=== PATIENT | female | born 1955 | race Caucasian/White ===

== ENCOUNTER 2022-09-19 14:36 | Outpatient (OUT) | payer MEDICARE, SELFPAY ==
[2022-09-19 15:15] LABS: Basophils Percent Auto 0.4 % (0.2-2.0); Eosinophils Absolute Auto 0.1 10^3/uL (0.0-0.7); Eosinophils Percent Auto 1.1 % (0.9-7.0); Hematocrit 37.4 % (36.0-48.0); Hemoglobin 11.9 g/dL (12.0-16.0); Immature Granulocytes Abs Auto 0.03 10^3/uL (0.00-0.03); Immature Granulocytes Pct Auto 0.4 % (0.0-0.5); Lymphocytes Absolute Auto 3.4 10^3/uL (1.2-3.8); Lymphocytes Percent Auto 47.3 % (20.5-60.0); Mean Corpuscular HGB Conc 31.8 g/dL (29.9-35.2); Mean Corpuscular Hemoglobin 29.7 pg (26.7-34.0); Mean Corpuscular Volume 93.3 fL (81.0-99.0); Monocytes Absolute Auto 0.6 10^3/uL (0.3-0.8); Monocytes Percent Auto 7.7 % (1.7-12.0); Neutrophils Absolute Auto 3.1 10^3/uL (1.4-6.5); Neutrophils Percent Auto 43.1 % (43.0-75.0); Platelet Count 260 10^3/uL (150-450); Red Blood Count 4.01 10^6/uL (4.20-5.40); Red Cell Distribution Width 14.5 % (11.0-15.0); White Blood Count 7.3 10^3/uL (4.0-11.0)
[2022-09-19 15:58] LABS: Alanine Aminotransferase 21 U/L (14-59); Albumin Globulin Ratio 0.9; Albumin Level 3.6 g/dL (3.4-5.0); Alkaline Phosphatase 115 U/L (46-116); Anion Gap 11.5; Aspartate Amino Transferase 17 U/L (15-37); BUN Creatinine Ratio 9.5; Bilirubin Total 0.3 mg/dL (0.2-1.0); Calcium 9.1 mg/dL (8.5-10.1); Carbon Dioxide 28.8 mmol/L (21.0-32.0); Chloride 98 mmol/L (98-107); Estimated GFR (African America >60 (>=60); Estimated GFR (Non-African Ame 58 (>=60); Globulin 4.1 g/dL; Glucose 152 mg/dL (74-106); Potassium 4.3 mmol/L (3.5-5.1); Sodium 134 mmol/L (136-145); Total Protein 7.7 g/dL (6.4-8.2)
== END 2022-09-19 14:37 ==
LOC: LAB 14:41
PROVIDERS: PCP Family Medicine; Visit Provider Family Medicine
DX: E87.1 Hypo-osmolality and hyponatremia (principal); D50.9 Iron deficiency anemia, unspecified
CPT/HCPCS: 36415; 80053; 85025

== ENCOUNTER 2022-10-31 11:36 | Outpatient (OUT) | payer MEDICARE, SELFPAY ==
[2022-10-31 12:06] LABS: Basophils Percent Auto 0.6 % (0.2-2.0); Eosinophils Absolute Auto 0.1 10^3/uL (0.0-0.7); Eosinophils Percent Auto 0.9 % (0.9-7.0); Hematocrit 37.7 % (36.0-48.0); Hemoglobin 12.4 g/dL (12.0-16.0); Immature Granulocytes Abs Auto 0.03 10^3/uL (0.00-0.03); Immature Granulocytes Pct Auto 0.5 % (0.0-0.5); Lymphocytes Absolute Auto 2.5 10^3/uL (1.2-3.8); Lymphocytes Percent Auto 37.7 % (20.5-60.0); Mean Corpuscular HGB Conc 32.9 g/dL (29.9-35.2); Mean Corpuscular Hemoglobin 30.4 pg (26.7-34.0); Mean Corpuscular Volume 92.4 fL (81.0-99.0); Mean Platelet Volume 9.9 fL (9.5-13.5); Monocytes Absolute Auto 0.5 10^3/uL (0.3-0.8); Neutrophils Absolute Auto 3.5 10^3/uL (1.4-6.5); Neutrophils Percent Auto 52.3 % (43.0-75.0); Platelet Count 263 10^3/uL (150-450); Red Blood Count 4.08 10^6/uL (4.20-5.40); Red Cell Distribution Width 13.5 % (11.0-15.0); White Blood Count 6.6 10^3/uL (4.0-11.0)
[2022-10-31 14:18] LABS: Alanine Aminotransferase 24 U/L (14-59); Albumin Globulin Ratio 0.9; Alkaline Phosphatase 114 U/L (46-116); Anion Gap 14.9; Aspartate Amino Transferase 21 U/L (15-37); Bilirubin Total 0.3 mg/dL (0.2-1.0); Calcium 9.1 mg/dL (8.5-10.1); Chloride 95 mmol/L (98-107); Estimated GFR (African America >60 (>=60); Estimated GFR (Non-African Ame 55 (>=60); Globulin 4.3 g/dL; Glucose 156 mg/dL (74-106); Potassium 4.9 mmol/L (3.5-5.1); Sodium 133 mmol/L (136-145); Total Protein 8.3 g/dL (6.4-8.2)
== END 2022-10-31 11:37 | disposition home or self-care (01) ==
LOC: LAB 11:38
PROVIDERS: PCP Family Medicine; Visit Provider Family Medicine
DX: E87.1 Hypo-osmolality and hyponatremia (principal); D50.9 Iron deficiency anemia, unspecified
CPT/HCPCS: 36415; 80053; 85025

== ENCOUNTER 2022-11-06 10:25 | Outpatient (OUT) | payer MEDICARE, SELFPAY ==
[2022-11-06 11:29] LABS: Estimated Average Glucose 126 mg/dL
[2022-11-06 11:31] LABS: Chol HDL Ratio 1.7; Cholesterol 124 mg/dL (<=200); Free T3 1.62 pg/mL (2.18-3.98); HDL Cholesterol 73 mg/dL (40-60); Thyroid Stimulating Hormone 1.192 uIU/mL (0.358-3.740); Triglycerides 59 mg/dL (<=150); VLDL CHOLESTEROL 11.8 mg/dL
[2022-11-06 12:24] LABS: Free T4 0.75 ng/dL (0.76-1.46)
== END 2022-11-06 10:26 | disposition home or self-care (01) ==
LOC: LAB 10:27
PROVIDERS: PCP Family Medicine; Visit Provider Family Medicine
DX: E78.00 Pure hypercholesterolemia, unspecified (principal); R53.83 Other fatigue; R73.09 Other abnormal glucose
CPT/HCPCS: 36415; 80061; 83036; 84439; 84443; 84481

== ENCOUNTER 2022-12-11 13:25 | Outpatient (OUT) | payer MEDICARE, SELFPAY ==
[2022-12-11 14:18] LABS: Basophils Percent Auto 0.5 % (0.2-2.0); Eosinophils Percent Auto 0.6 % (0.9-7.0); Hematocrit 35.8 % (36.0-48.0); Hemoglobin 11.8 g/dL (12.0-16.0); Immature Granulocytes Abs Auto 0.03 10^3/uL (0.00-0.03); Immature Granulocytes Pct Auto 0.5 % (0.0-0.5); Lymphocytes Absolute Auto 2.4 10^3/uL (1.2-3.8); Lymphocytes Percent Auto 35.6 % (20.5-60.0); Mean Corpuscular Hemoglobin 31.2 pg (26.7-34.0); Mean Corpuscular Volume 94.7 fL (81.0-99.0); Mean Platelet Volume 10.1 fL (9.5-13.5); Monocytes Absolute Auto 0.5 10^3/uL (0.3-0.8); Monocytes Percent Auto 7.2 % (1.7-12.0); Neutrophils Absolute Auto 3.7 10^3/uL (1.4-6.5); Neutrophils Percent Auto 55.6 % (43.0-75.0); Platelet Count 248 10^3/uL (150-450); Red Blood Count 3.78 10^6/uL (4.20-5.40); Red Cell Distribution Width 13.9 % (11.0-15.0); White Blood Count 6.6 10^3/uL (4.0-11.0)
[2022-12-11 14:19] LABS: Alanine Aminotransferase 35 U/L (14-59); Albumin Level 3.6 g/dL (3.4-5.0); Alkaline Phosphatase 118 U/L (46-116); Aspartate Amino Transferase 23 U/L (15-37); Bilirubin Total 0.3 mg/dL (0.2-1.0); Calcium 8.6 mg/dL (8.5-10.1); Carbon Dioxide 27.7 mmol/L (21.0-32.0); Chloride 96 mmol/L (98-107); Estimated GFR (African America >60 (>=60); Estimated GFR (Non-African Ame >60 (>=60); Globulin 3.5 g/dL; Glucose 156 mg/dL (74-106); Potassium 4.7 mmol/L (3.5-5.1); Sodium 131 mmol/L (136-145); Total Protein 7.1 g/dL (6.4-8.2)
== END 2022-12-11 13:26 | disposition home or self-care (01) ==
LOC: LAB 13:27
PROVIDERS: PCP Family Medicine; Visit Provider Family Medicine
DX: E87.1 Hypo-osmolality and hyponatremia (principal); D50.9 Iron deficiency anemia, unspecified
CPT/HCPCS: 36415; 80053; 85025

== ENCOUNTER 2022-12-24 15:40 | Inpatient (IN) | payer MEDICARE, SELFPAY ==
[2022-12-24] VITALS (28 sets, daily range): BP systolic 154–162; BP diastolic 73–85; PULSE 87–106; RESP 13–25; TEMP 36.6–36.8; O2SAT 90–100; BMI 31.9; BMI 32.2
--- NOTE | 2022-12-24 15:42 | XR_ITS ---
The [address] [address] Patient Name: JACINTO SANCHEZ MRN: [id number] date: 1955 Sex: F Assigned Patient Location: ER Current Patient Location: ER Accession/Order Number: [id number] Exam Date: 12/24/2022 16:40 Report Date: 12/24/2022 17:09 At the request of: SINGH MARIA Procedure: XR chest 1V EXAM: XR chest 1V at 1641 hours HISTORY: Fall COMPARISON: None. TECHNIQUE: AP upright portable chest x-ray FINDINGS: The heart is not enlarged and the vasculature is not distended. No acute infiltrate, effusion or pneumothorax is identified. Some degenerative changes are seen in the spine. A left shoulder prosthesis is in place. XR/XR chest 1V IMPRESSION: No acute infiltrate or evidence of cardiac decompensation. Direct comparison with a previous study may be helpful in determining the chronicity of these findings. Electronically authenticated by: GONZALES ESPINOSA Date: 12/24/2022 17:09
--- NOTE | 2022-12-24 15:42 | ECG_ITS ---
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
[2022-12-24 15:47] LABS: Glucometer 154 mg/dL (74-106)
--- NOTE | 2022-12-24 15:48 | ED_ITS ---
HPI - General Adult General Chief complaint: Extremity Injury, Lower Stated complaint: Fall Time Seen by Provider: 12/24/22 15:42 Source: patient Mode of arrival: ambulance History of Present Illness HPI narrative: patient is a 67-year-old female presents to the emergency department by ambulance for the evaluation of right hip pain after a fall at home. She states approximately fourteen hours ago she tripped over some clothes on her bedroom floor and fell forward. She denies head injury or loss of consciousness. She does have a history of alcoholism and states she drank approximately eight shots of whiskey last night. She reports pain in the left shoulder and right groin radiating into the right leg. She states after falling, she was able to get herself into bed but has not been able to ambulate or move so she called 911 prior to arrival. She has not had any recent illness. Toradol was given by EMS prior to arrival. she had a previous left shoulder replacement at the end of last year. Related Data Home Medications Medication Instructions Recorded Confirmed amlodipine 10 mg tablet 10 mg PO DAILY 12/24/22 12/24/22 atorvastatin 10 mg tablet 10 mg PO DAILY 12/24/22 12/24/22 cetirizine 10 mg tablet 10 mg PO DAILY 12/24/22 12/24/22 citalopram 40 mg tablet 40 mg PO DAILY 12/24/22 12/24/22 cyclobenzaprine 10 mg tablet 10 mg PO Q12H 12/24/22 12/24/22 diclofenac sodium 75 mg 75 mg PO Q12H 12/24/22 12/24/22 tablet,delayed release folic acid 1 mg tablet 1 mg PO DAILY 12/24/22 12/24/22 irbesartan 300 mg tablet 300 mg PO DAILY 12/24/22 12/24/22 liothyronine 5 mcg tablet 10 mcg PO DAILY 12/24/22 12/24/22 magnesium oxide 400 mg (241.3 mg 2,800 mg PO DAILY 12/24/22 12/24/22 magnesium) tablet metformin 850 mg tablet 850 mg PO TID 12/24/22 12/24/22 omeprazole 40 mg capsule,delayed 40 mg PO DAILY 12/24/22 12/24/22 release pioglitazone 45 mg tablet 45 mg PO DAILY 12/24/22 12/24/22 quetiapine 100 mg tablet 100 mg PO BEDTIME 12/24/22 12/24/22 sodium chloride 1,000 mg soluble 3,000 mg PO BID 12/24/22 12/24/22 tablet Allergies Allergy/AdvReac Type Severity Reaction Status Date / Time No Known Drug Allergies Allergy Verified 12/24/22 15:45 Review of Systems ROS Constitutional Denies: fever or chills Ears, nose, mouth, and throat Denies: throat pain or neck pain Cardiovascular Denies: chest pain Respiratory Denies: shortness of breath or cough Gastrointestinal Denies: nausea or vomiting Genitourinary Denies: painful urination Musculoskeletal Reports: extremity pain; Denies: back pain or neck pain Integumentary/Breast Denies: rash Neurological Denies: headache Endocrine Denies: excessive urination PFSH [facility] Social History Smoking status: Heavy tobacco smoker Exam Narrative Exam Narrative: Gen.: Awake, alert, in no distress Head: Normocephalic, atraumatic ENT: Moist mucous membranes; C-spine nontender with a full range of motion; no obvious facial/dental or head trauma. Respiratory: No respiratory distress, lungs clear bilaterally Cardio: Regular rate and rhythm Gastrointestinal: Abdomen is soft, nondistended and nontender to palpation; pelvis is stable Extremities: Moves extremities equally, tenderness in the right groin, pain with flexion at the right hip. Mild rotation noted of the right lower extremity, no shortening. No bony tenderness of the right knee or right ankle. Normal range of motion at the left shoulder with diffuse mild tenderness to palpation Psych: Normal mood and affect Neuro: No focal neuro deficit, alert and oriented, clear speech Skin: Warm, dry, intact Constitutional Vital Signs, click to edit/add: Last Vital Signs Temp 97.9 F 12/24/22 15:41 Pulse 104 H 12/24/22 15:41 Resp 20 12/24/22 15:41 BP 162/85 H 12/24/22 15:41 Pulse Ox 100 12/24/22 15:41 O2 Del Method Room Air 12/24/22 15:41 Course Vital Signs Vital signs: Vital Signs Temperature 97.9 F 12/24/22 15:41 Pulse Rate 104 H 12/24/22 15:41 Respiratory Rate 20 12/24/22 15:41 Blood Pressure 162/85 H 12/24/22 15:41 Pulse Oximetry 100 12/24/22 15:41 Oxygen Delivery Method Room Air 12/24/22 15:41 Temperature 97.9 F 12/24/22 15:41 Pulse Rate 104 H 12/24/22 15:41 Respiratory Rate 20 12/24/22 15:41 Blood Pressure 162/85 H 12/24/22 15:41 Pulse Oximetry 100 12/24/22 15:41 Oxygen Delivery Method Room Air 12/24/22 15:41 Medical Decision Making MDM Narrative Medical decision making narrative: patient was medicated with IV fluids, fentanyl and Zofran. She is still unable to ambulate on her right lower extremity after negative CT of the brain, negative chest x-ray, negative left shoulder x-ray and negative x-rays of the pelvis and right hip per radiologist. She was sent back for a CT of the right hip which shows she has a right femoral neck fracture. The remainder of her lab studies are grossly unremarkable, she does not take any blood thinners. The case was discussed with Dr. Whiting, the patient's PCP accepted the admission to [facility] with telemetry. I discussed the case with Dr. Dougherty for orthopedics, he was sent images of the patient's hip and agreed to be a security system sales consultant in her admission. Patient is stable at time of admission, reevaluated by attending physician prior to admission. Medical Records Medical records reviewed: Yes I reviewed the patient's medical records Lab Data Lab results reviewed: Yes I reviewed the patient's lab results Labs: Lab Results 12/24/22 12/24/22 Range/Units 15:44 15:50 WBC 10.3 (4.0-11.0) 10^3/uL RBC 3.43 L (4.20-5.40) 10^6/uL Hgb 10.9 L (12.0-16.0) g/dL Hct 32.9 L (36.0-48.0) % MCV 95.9 (81.0-99.0) fL MCH 31.8 (26.7-34.0) pg MCHC 33.1 (29.9-35.2) g/dL RDW 13.8 (11.0-15.0) % Plt Count 221 (150-450) 10^3/uL MPV 10.1 (9.5-13.5) fL Neut % (Auto) 86.6 H (43.0-75.0) % Lymph % (Auto) 7.3 L (20.5-60.0) % [place] % (Auto) 5.4 (1.7-12.0) % Eos % (Auto) 0.0 L (0.9-7.0) % Baso % (Auto) 0.2 (0.2-2.0) % Neut # (Auto) 9.0 H (1.4-6.5) 10^3/uL Lymph # (Auto) 0.8 L (1.2-3.8) 10^3/uL [place] # (Auto) 0.6 (0.3-0.8) 10^3/uL Eos # (Auto) 0.0 (0.0-0.7) 10^3/uL Baso # (Auto) 0.0 (0.0-0.1) 10^3/uL Abs Immat Gran (auto) 0.05 H (0.00-0.03) 10^3/uL Imm/Tot Granulo (auto) 0.5 (0.0-0.5) % PT 10.4 (9.0-11.6) sec INR 0.98 Sodium 132 L (136-145) mmol/L Potassium 5.0 (3.5-5.1) mmol/L Chloride 95 L (98-107) mmol/L Carbon Dioxide 24.2 (21.0-32.0) mmol/L Anion Gap 17.8 BUN 21.0 H (7.0-18.0) mg/dL Creatinine 0.99 (0.55-1.02) mg/dL Est GFR ( Amer) >60 (>=60) Est GFR (Non-Af Amer) 56 L (>=60) BUN/Creatinine Ratio 21.2 Glucose 155 H (74-106) mg/dL Lactate 2.2 H* (0.4-2.0) mmol/L Calcium 8.1 L (8.5-10.1) mg/dL Phosphorus 4.1 (2.6-4.7) mg/dL Magnesium 1.6 L (1.8-2.4) mg/dL Total Bilirubin 0.4 (0.2-1.0) mg/dL AST 21 (15-37) U/L ALT 23 (14-59) U/L Alkaline Phosphatase 113 (46-116) U/L Total Creatine Kinase 49 (26-192) U/L CK-MB (CK-2) 1.30 (<=3.60) ng/mL Myoglobin 179 H (9-82) ng/mL Troponin I High Sens 8.9 (4.0-51.3) pg/mL Total Protein 7.1 (6.4-8.2) g/dL Albumin 3.5 (3.4-5.0) g/dL Globulin 3.6 g/dL Albumin/Globulin Ratio 1.0 TSH 1.578 (0.358-3.740) uIU/mL Ethanol Quant <3 mg/dL POC Glucose 154 H (74-106) mg/dL Imaging Data ct hip: Attestation: I have reviewed the pertinent imaging results. Radiologist's impression: Procedure: CT hip RT wo con EXAM: CT hip RT wo con HISTORY: Right hip pain after fall COMPARISON: X-rays at 4:47 PM TECHNIQUE: Axial CT imaging was performed. Sagittal and coronal reformatted/reconstructed sequences were additionally performed. FINDINGS: IMPRESSION: Mildly angulated fracture of the right femoral neck. Mild chondrocalcinosis pyrophosphate deposition of the right hip joint. Hip joint space is maintained. Small joint effusion. The soft tissues are unremarkable Electronically authenticated by: NICHOLAS WILDER Date: 12/24/2022 18:19 ECG Data Attestation: I personally reviewed and interpreted this ECG as follows: (sinus tachycardia at a rate of 101, no acute ST elevation or ectopy. EKG reviewed by attending physician) Discharge Plan Discharge Chief Complaint: Extremity Injury, Lower Clinical Impression: Acute pain of right hip, Fracture of hip, Fall, Fracture of right hip Patient Disposition: Admitted As Inpatient Time of Disposition Decision: 18:44 Prescriptions / Home Meds: No Action amlodipine 10 mg tablet 10 mg PO DAILY atorvastatin 10 mg tablet 10 mg PO DAILY cetirizine 10 mg tablet 10 mg PO DAILY citalopram 40 mg tablet 40 mg PO DAILY cyclobenzaprine 10 mg tablet 10 mg PO Q12H diclofenac sodium 75 mg tablet,delayed release (DR/EC) 75 mg PO Q12H folic acid 1 mg tablet 1 mg PO DAILY irbesartan 300 mg tablet 300 mg PO DAILY liothyronine 5 mcg tablet 10 mcg PO DAILY magnesium oxide 400 mg (241.3 mg magnesium) tablet 2,800 mg PO DAILY metformin 850 mg tablet 850 mg PO TID omeprazole 40 mg capsule,delayed release(DR/EC) 40 mg PO DAILY pioglitazone 45 mg tablet 45 mg PO DAILY quetiapine 100 mg tablet 100 mg PO BEDTIME sodium chloride 1,000 mg tablet,soluble 3,000 mg PO BID Referrals: Yves Whiting MD [Primary Care Provider] - 1 week
[2022-12-24 16:01] LABS: Basophils Percent Auto 0.2 % (0.2-2.0); Hematocrit 32.9 % (36.0-48.0); Hemoglobin 10.9 g/dL (12.0-16.0); Immature Granulocytes Abs Auto 0.05 10^3/uL (0.00-0.03); Immature Granulocytes Pct Auto 0.5 % (0.0-0.5); Lymphocytes Absolute Auto 0.8 10^3/uL (1.2-3.8); Lymphocytes Percent Auto 7.3 % (20.5-60.0); Mean Corpuscular HGB Conc 33.1 g/dL (29.9-35.2); Mean Corpuscular Hemoglobin 31.8 pg (26.7-34.0); Mean Corpuscular Volume 95.9 fL (81.0-99.0); Mean Platelet Volume 10.1 fL (9.5-13.5); Monocytes Absolute Auto 0.6 10^3/uL (0.3-0.8); Monocytes Percent Auto 5.4 % (1.7-12.0); Neutrophils Percent Auto 86.6 % (43.0-75.0); Platelet Count 221 10^3/uL (150-450); Red Blood Count 3.43 10^6/uL (4.20-5.40); Red Cell Distribution Width 13.8 % (11.0-15.0); White Blood Count 10.3 10^3/uL (4.0-11.0)
[2022-12-24] MEDS: 0.9 % SODIUM CHLORIDE 1,000 ML 999 ML IV (16:04)
[2022-12-24 16:14] LABS: INR 0.98; Prothrombin Time 10.4 sec (9.0-11.6)
[2022-12-24 16:19] LABS: Alanine Aminotransferase 23 U/L (14-59); Albumin Level 3.5 g/dL (3.4-5.0); Alkaline Phosphatase 113 U/L (46-116); Anion Gap 17.8; Aspartate Amino Transferase 21 U/L (15-37); BUN Creatinine Ratio 21.2; Bilirubin Total 0.4 mg/dL (0.2-1.0); Calcium 8.1 mg/dL (8.5-10.1); Carbon Dioxide 24.2 mmol/L (21.0-32.0); Chloride 95 mmol/L (98-107); Estimated GFR (African America >60 (>=60); Estimated GFR (Non-African Ame 56 (>=60); Globulin 3.6 g/dL; Glucose 155 mg/dL (74-106); Sodium 132 mmol/L (136-145); Total Protein 7.1 g/dL (6.4-8.2)
[2022-12-24 16:29] LABS: Creatine Kinase 49 U/L (26-192); Ethanol <3 mg/dL; Magnesium 1.6 mg/dL (1.8-2.4); Myoglobin 179 ng/mL (9-82); Phosphorus 4.1 mg/dL (2.6-4.7); Thyroid Stimulating Hormone 1.578 uIU/mL (0.358-3.740); Troponin I High Sensitivity 8.9 pg/mL (4.0-51.3)
--- NOTE | 2022-12-24 16:30 | XR_ITS ---
The [address] [address] Patient Name: JACINTO SANCHEZ MRN: [id number] date: 1955 Sex: F Assigned Patient Location: ER Current Patient Location: ER Accession/Order Number: [id number] Exam Date: 12/24/2022 16:40 Report Date: 12/24/2022 17:28 At the request of: SINGH MARIA Procedure: XR hip RT 2V w/ pelvis EXAM: XR hip RT 2V w/ pelvis HISTORY: Fall COMPARISON: None. TECHNIQUE: 3 views FINDINGS: No visualized fracture, dislocation, subluxation or osseous lesion. Joint spaces are unremarkable for patient's age. XR/XR hip RT 2V w/ pelvis IMPRESSION: No visualized acute abnormality Electronically authenticated by: NICHOLAS WILDER Date: 12/24/2022 17:28
--- NOTE | 2022-12-24 16:30 | CT_ITS ---
The [address] [address] Patient Name: JACINTO SANCHEZ MRN: [id number] date: 1955 Sex: F Assigned Patient Location: ER Current Patient Location: Accession/Order Number: [id number] Exam Date: 12/24/2022 16:58 Report Date: 12/24/2022 17:27 At the request of: SINGH MARIA Procedure: CT head/brain wo con EXAM: CT head/brain wo con HISTORY: Weakness . The patient fell last night. COMPARISON: 01/11/2022 TECHNIQUE: Multiple thin computed tomograms of the head were obtained, with sagittal and coronal reconstructions. Radiation reduction technique and algorithms were utilized during the study. FINDINGS: The ventricles are not enlarged, the lateral ventricles are minimally asymmetric but within normal variation, and the third ventricles in the midline. The sylvian fissures and cortical sulci are unremarkable. There is no evidence of an intracranial hemorrhage, mass lesion or apparent acute infarct. Mild frontal hyperostosis is noted. The cerebellum and visualized brainstem are intact. A small air-fluid level is seen in the sphenoid sinus eccentric to the right. The paranasal sinuses are otherwise clear as visualized. The middle ears are aerated. The mastoid sinuses are clear. CT/CT head/brain wo con IMPRESSION: There is no evidence of an intracranial hemorrhage, mass lesion or apparent acute infarct. A small air-fluid level is seen in the sphenoid sinus eccentric to the right of the midline. The paranasal sinuses are otherwise relatively clear. There is no evidence of a skull fracture. Except for the findings in the sphenoid sinuses, the overall appearance is essentially unchanged. Electronically authenticated by: GONZALES ESPINOSA Date: 12/24/2022 17:27
--- NOTE | 2022-12-24 16:30 | XR_ITS ---
The [address] [address] Patient Name: JACINTO SANCHEZ MRN: [id number] date: 1955 Sex: F Assigned Patient Location: ER Current Patient Location: ER Accession/Order Number: [id number] Exam Date: 12/24/2022 16:40 Report Date: 12/24/2022 17:25 At the request of: SINGH MARIA Procedure: XR shoulder LT min 2V EXAM: XR shoulder LT min 2V HISTORY: fall COMPARISON: None. TECHNIQUE: 4 views FINDINGS: Patient is status post left glenohumeral arthroplasty. The prosthesis exhibits no gross fracture or dislocation. The [place] bone exhibits no gross visualized irregularity. XR/XR shoulder LT min 2V IMPRESSION: No visualized acute abnormality Electronically authenticated by: NICHOLAS WILDER Date: 12/24/2022 17:25
[2022-12-24 16:41] LABS: Lactate/Lactic Acid 2.2 mmol/L (0.4-2.0)
[2022-12-24] MEDS: FENTANYL CITRATE/PF 100 MCG/2 ML VIAL 50 MCG IV (17:27)
[2022-12-24] MEDS: ONDANSETRON PF 4 MG/2 ML VIAL IV (17:27)
--- NOTE | 2022-12-24 17:40 | PC.NURSE ---
1740 - tried to get patient up to see if she is able to bare weight on R leg and pt is able to put very little weight on that leg. crying out in pain. informed PA
--- NOTE | 2022-12-24 17:41 | CT_ITS ---
[address] [address] Patient Name: JACINTO SANCHEZ MRN: [id number] date: 1955 Sex: F Assigned Patient Location: ER Current Patient Location: ER Accession/Order Number: [id number] Exam Date: 12/24/2022 17:56 Report Date: 12/24/2022 18:19 At the request of: SINGH MRAIA Procedure: CT hip RT wo con EXAM: CT hip RT wo con HISTORY: Right hip pain after fall COMPARISON: X-rays at 4:47 PM TECHNIQUE: Axial CT imaging was performed. Sagittal and coronal reformatted/reconstructed sequences were additionally performed. FINDINGS: IMPRESSION: Mildly angulated fracture of the right femoral neck. Mild chondrocalcinosis pyrophosphate deposition of the right hip joint. Hip joint space is maintained. Small joint effusion. The soft tissues are unremarkable Electronically authenticated by: NICHOLAS WILDER Date: 12/24/2022 18:19
[2022-12-24 19:18] LABS: Magnesium 1.5 mg/dL (1.8-2.4); Thyroid Stimulating Hormone 1.553 uIU/mL (0.358-3.740)
[2022-12-24 20:16] LABS: Lactate/Lactic Acid 0.7 mmol/L (0.4-2.0)
[2022-12-24 21:28] LABS: Glucometer 110 mg/dL (74-106)
[2022-12-24] MEDS: 0.9 % SODIUM CHLORIDE 1,000 ML 100 ML IV (21:33)
[2022-12-24] MEDS: SODIUM CHLORIDE 1,000 MG TABLET 3000 MG PO (21:34)
[2022-12-24] MEDS: METFORMIN HCL 850 MG TABLET PO (21:34)
[2022-12-24] MEDS: CYCLOBENZAPRINE HCL 10 MG TABLET PO (21:34)
[2022-12-24] MEDS: THIAMINE MONONITRATE (VIT B1) 100 MG TABLET PO (21:34)
[2022-12-24] MEDS: MULTIVITAMIN TABLET 1 TAB PO (21:34)
[2022-12-24] MEDS: TEMAZEPAM 15 MG CAPSULE PO (21:34)
[2022-12-24] MEDS: QUETIAPINE FUMARATE 100 MG TABLET PO (21:34)
[2022-12-24] MEDS: HYDROMORPHONE HCL 0.5 MG/0.5 ML SYRINGE IV (23:34)
[2022-12-25] VITALS (62 sets, daily range): BP systolic 102–133; BP diastolic 45–67; PULSE 63–98; RESP 4–24; TEMP 36.6–36.8; O2SAT 80–100
--- NOTE | 2022-12-25 | XR_ITS ---
The [address] [address] Patient Name: JACINTO SANCHEZ MRN: [id number] date: 1955 Sex: F Assigned Patient Location: MS Current Patient Location: MS Accession/Order Number: [id number] Exam Date: 12/25/2022 15:30 Report Date: 12/25/2022 17:25 At the request of: WOLFGANG SANTIZO Procedure: XR hip RT min 2V EXAM: XR hip RT min 2V HISTORY: Right femoral neck fracture COMPARISON: Imaging 12/24/2022. FINDINGS: IMPRESSION: 5 intraoperative fluoroscopic spot views. 66.8 seconds of fluoroscopy time. Films are made available to the surgeon. Electronically authenticated by: NICHOLAS WILDER Date: 12/25/2022 17:25
--- NOTE | 2022-12-25 00:13 | PC.NURSE ---
2L nasal cannula added due to SPO2 levels dropping while patient sleeping
[2022-12-25 02:34] LABS: Bilirubin Urine NEGATIVE (NEGATIVE); Blood Urine SMALL (NEGATIVE); Clarity Urine CLEAR (CLEAR); Color Urine LT. YELLOW (YELLOW); Glucose Urine UA NEGATIVE (NEGATIVE); Ketones Urine TRACE mg/dL (NEGATIVE); Leukocyte Esterase Urine NEGATIVE (NEGATIVE); Nitrite Urine NEGATIVE (NEGATIVE); Protein Urine NEGATIVE (NEG/TRACE); Specific Gravity Urine <=1.005 (1.005-1.025); Urobilinogen Urine 0.2 EU/dL (0.2-1.0)
[2022-12-25 02:35] LABS: Urine Microscopic Indicated YES
[2022-12-25 03:05] LABS: Cannabinoid Screen Urine POSITIVE (NEGATIVE); Cocaine Screen Urine NEGATIVE (NEGATIVE); Methamphetamines Screen Urine NEGATIVE (NEGATIVE); Opiate Screen Urine POSITIVE (NEGATIVE); Phencyclidine Screen Urine NEGATIVE (NEGATIVE)
[2022-12-25 03:06] LABS: Amphetamine Screen Urine NEGATIVE (NEGATIVE); Barbiturates Screen Urine NEGATIVE (NEGATIVE); Benzodiazepines Screen Urine POSITIVE (NEGATIVE); Methadone Screen Urine NEGATIVE (NEGATIVE); Oxycodone Screen Urine NEGATIVE (NEGATIVE); Tricyclic Antidepressant Urine POSITIVE (NEGATIVE)
[2022-12-25 03:07] LABS: Buprenorphine Screen Urine NEGATIVE (NEGATIVE)
[2022-12-25 03:14] LABS: Bacteria Urine NONE SEEN #/HPF (NONE SEEN); Crystals Seen? None Seen #/HPF (None Seen); Mucus Urine NONE SEEN (NONE SEEN); RBC Urine 0-2 #/HPF (0-2); Squamous Epithelial Cell Urine NONE SEEN #/LPF (NONE/RARE)
[2022-12-25 03:15] LABS: Cast Seen? NONE SEEN #/LPF (NONE SEEN)
--- NOTE | 2022-12-25 03:59 | RESP.RT ---
decreased down to 1L
[2022-12-25 04:38] LABS: Basophils Percent Auto 0.3 % (0.2-2.0); Eosinophils Absolute Auto 0.1 10^3/uL (0.0-0.7); Eosinophils Percent Auto 0.8 % (0.9-7.0); Hematocrit 29.8 % (36.0-48.0); Hemoglobin 9.6 g/dL (12.0-16.0); Immature Granulocytes Abs Auto 0.03 10^3/uL (0.00-0.03); Immature Granulocytes Pct Auto 0.4 % (0.0-0.5); Lymphocytes Absolute Auto 2.4 10^3/uL (1.2-3.8); Mean Corpuscular HGB Conc 32.2 g/dL (29.9-35.2); Mean Corpuscular Volume 96.1 fL (81.0-99.0); Mean Platelet Volume 10.1 fL (9.5-13.5); Monocytes Absolute Auto 0.7 10^3/uL (0.3-0.8); Monocytes Percent Auto 9.8 % (1.7-12.0); Neutrophils Absolute Auto 4.1 10^3/uL (1.4-6.5); Neutrophils Percent Auto 55.7 % (43.0-75.0); Platelet Count 188 10^3/uL (150-450); White Blood Count 7.3 10^3/uL (4.0-11.0)
[2022-12-25 05:03] LABS: Alanine Aminotransferase 20 U/L (14-59); Albumin Globulin Ratio 0.9; Albumin Level 2.9 g/dL (3.4-5.0); Alkaline Phosphatase 91 U/L (46-116); Anion Gap 12.9; Aspartate Amino Transferase 16 U/L (15-37); BUN Creatinine Ratio 18.8; Bilirubin Total 0.5 mg/dL (0.2-1.0); Calcium 7.9 mg/dL (8.5-10.1); Carbon Dioxide 25.9 mmol/L (21.0-32.0); Chloride 100 mmol/L (98-107); Estimated GFR (African America >60 (>=60); Estimated GFR (Non-African Ame >60 (>=60); Globulin 3.1 g/dL; Glucose 76 mg/dL (74-106); Potassium 3.8 mmol/L (3.5-5.1); Sodium 135 mmol/L (136-145)
[2022-12-25] MEDS: HYDROMORPHONE HCL 0.5 MG/0.5 ML SYRINGE IV ×2 (06:05→10:06)
[2022-12-25] MEDS: 0.9 % SODIUM CHLORIDE 1,000 ML 100 ML IV ×2 (06:10→18:02)
--- NOTE | 2022-12-25 07:10 | XR_ITS ---
The [address] [address] Patient Name: JACINTO SANCHEZ MRN: [id number] date: 1955 Sex: F Assigned Patient Location: MS Current Patient Location: MS Accession/Order Number: [id number] Exam Date: 12/25/2022 07:15 Report Date: 12/25/2022 07:57 At the request of: ASH BERNSTEIN Procedure: XR chest 1V EXAM: XR chest 1V HISTORY: hypoxia COMPARISON: 12/24/2022 TECHNIQUE: AP portable erect FINDINGS: LUNGS: No significant pulmonary parenchymal abnormalities. VASCULATURE: No increased pulmonary vasculature. PLEURA: No pneumothorax, effusion, or pleural thickening. CARDIAC: No cardiomegaly or cardiac silhouette abnormality. MEDIASTINUM: No visible mass or adenopathy. BONES: No fracture or visible bone lesion. Partial arthroplasty OTHER: Negative. XR/XR chest 1V IMPRESSION: No acute cardiopulmonary process Electronically authenticated by: NICHOLAS DAWSON Date: 12/25/2022 07:57
--- NOTE | 2022-12-25 07:11 | P.HP_ITS ---
H&P: HPI History of Present Illness Chief complaint: Right Hip Fracture, Weakness Narrative: Patient presented to the emergency room status post fall, found to have right femoral neck fracture, patient admitted for work-up and treatment of same, with the fall patient did not have any syncope or chest pain or shortness of breath just tripped over items on the floor, patient does have a history of alcohol use, drinking throughout the day before. Review of Systems ROS Status of ROS 10 or more systems reviewed and unremarkable except as noted in history and below [facility] Medical History (Updated 12/24/22 @ 20:53 by Wendy Cardenas RN) Surgical History (Updated 12/24/22 @ 20:53 by Wendy Cardenas RN) Family History (Updated 12/24/22 @ 20:54 by Wendy Cardenas RN) Mother Family history of CHF (congestive heart failure) Family history of cancer Family history of hypertension Sister Family history of diabetes mellitus Social History (Updated 12/24/22 @ 20:57 by Wendy Cardenas RN) Within the past year, how often did you have a drink containing alcohol: 2-4 times a month Within the past year, how often did you have six or more drinks on one occasion: monthly Smoking status: Heavy tobacco smoker Non-prescribed substance use: cannabis (any form) Previous occupational history: Retired Known occupational exposures/hazards: No Highest level of school completed/degree received: Bachelor's degree Are you now , , , , never or living with a partner: In a typical week, how many times do you talk on the telephone with family, friends, or neighbors: 3 or more times per week How often do you get together with friends or relatives: never How often do you attend hindu or restorationism services: never Do you belong to any clubs or organizations such as hindu groups unions, fraternal or athletic groups, or school groups: yes Total score: 2 Score interpretation: A score of greater than or equal to 2 indicates the lowest level of social isolation. Little interest or pleasure in doing things: nearly every day Feeling down, depressed, or hopeless: nearly every day Feel stressed/tense/nervous/anxious/difficulty sleeping: very much Do you think of yourself as: straight/heterosexual Gender Identity: female Meds Home Medications and Allergies Home Medications Medication Instructions Recorded Confirmed Type amlodipine 10 mg tablet 10 mg PO DAILY 12/24/22 12/24/22 History atorvastatin 10 mg tablet 10 mg PO DAILY 12/24/22 12/24/22 History cetirizine 10 mg tablet 10 mg PO DAILY 12/24/22 12/24/22 History citalopram 40 mg tablet 40 mg PO DAILY 12/24/22 12/24/22 History cyclobenzaprine 10 mg tablet 10 mg PO Q12H 12/24/22 12/24/22 History diclofenac sodium 75 mg 75 mg PO Q12H 12/24/22 12/24/22 History tablet,delayed release folic acid 1 mg tablet 1 mg PO DAILY 12/24/22 12/24/22 History irbesartan 300 mg tablet 300 mg PO DAILY 12/24/22 12/24/22 History liothyronine 5 mcg tablet 10 mcg PO DAILY 12/24/22 12/24/22 History magnesium oxide 400 mg (241.3 mg 2,800 mg PO DAILY 12/24/22 12/24/22 History magnesium) tablet metformin 850 mg tablet 850 mg PO TID 12/24/22 12/24/22 History omeprazole 40 mg capsule,delayed 40 mg PO DAILY 12/24/22 12/24/22 History release pioglitazone 45 mg tablet 45 mg PO DAILY 12/24/22 12/24/22 History quetiapine 100 mg tablet 100 mg PO BEDTIME 12/24/22 12/24/22 History sodium chloride 1,000 mg soluble 3,000 mg PO BID 12/24/22 12/24/22 History tablet Allergies Allergy/AdvReac Type Severity Reaction Status Date / Time No Known Drug Allergies Allergy Verified 12/24/22 15:45 Exam Constitutional Vital Signs, click to edit/add: Last Vital Signs Temp 98.3 F 12/25/22 05:35 Pulse 83 12/25/22 06:00 Resp 16 12/25/22 05:35 BP 132/62 12/25/22 05:35 Pulse Ox 95 12/25/22 06:00 O2 Del Method Nasal Cannula 12/25/22 05:35 O2 Flow Rate 1 12/25/22 05:35 Common normals: no apparent distress Exam limitations: no altered mental status Chest Common normals: inspection of chest normal Respiratory Common normals: normal respiratory effort, no retractions and clear to auscultation bilaterally Auscultation: diminished lung sounds Cardio Common normals: regular rate, regular rhythm and no murmurs GI Common normals: Normal to inspection, nondistended, normoactive bowel sounds present, soft to palpation, non-tender and no masses Results Labs Labs: Short CBC 12/24/22 12/25/22 Range/Units 15:50 04:13 WBC 10.3 7.3 (4.0-11.0) 10^3/uL Hgb 10.9 L 9.6 L (12.0-16.0) g/dL Hct 32.9 L 29.8 L (36.0-48.0) % Plt Count 221 188 (150-450) 10^3/uL BMP 12/24/22 12/25/22 15:50 04:13 Sodium 132 L 135 L Potassium 5.0 3.8 Chloride 95 L 100 Carbon Dioxide 24.2 25.9 BUN 21.0 H 16.0 Creatinine 0.99 0.85 Glucose 155 H 76 Calcium 8.1 L 7.9 L Cardiac Enzymes 12/24/22 Range/Units 15:50 Total Creatine Kinase 49 (26-192) U/L CK-MB (CK-2) 1.30 (<=3.60) ng/mL Liver Function 12/24/22 12/25/22 Range/Units 15:50 04:13 Total Bilirubin 0.4 0.5 (0.2-1.0) mg/dL AST 21 16 (15-37) U/L ALT 23 20 (14-59) U/L Alkaline Phosphatase 113 91 (46-116) U/L Albumin 3.5 2.9 L (3.4-5.0) g/dL Urine 12/24/22 Range/Units 00:20 Urine Color Lt. yellow (YELLOW) Urine Clarity Clear (CLEAR) Urine pH 6.0 (5.0-9.0) Ur Specific [place] <=1.005 A (1.005-1.025) Urine Protein Negative (NEG/TRACE) mg/dL Urine Glucose (UA) Negative (NEGATIVE) mg/dL Assessment and Plan Assessment and Plan (1) Acute pain of right hip: (2) Fracture of right hip: (3) Depression: (4) Hypertension: (5) Hypomagnesemia: (6) Hyponatremia: Plan Sinus tachycardia, uncontrolled hypertension secondary to right hip pain secondary to right femoral neck fracture-consult orthopedics-n.p.o., surgery later today Iron deficiency anemia-monitor daily, repeat later today as her hemoglobin is down somewhat, no need for transfusion at this time Mild dehydration secondary to alcohol intake, BUN is improved, sodium is improved Hypocalcemia-supplement Hypomagnesemia-supplement Mild protein calorie malnutrition-add Ensure Acute hypoxia-secondary to pain medication and her sleeping, oxygen down into the 70%, improved with supplemental oxygen on 2 L, has been be able to be weaned down to 1 L, will repeat portable chest x-ray but lungs are clear Patient currently in observation status likely needs placement for rehab postsurgery. Change patient to inpatient
[2022-12-25 07:19] LABS: Glucometer 98 mg/dL (74-106)
--- NOTE | 2022-12-25 10:52 | SWNOTE1 ---
SW met with pt to discuss dc needs. Pt lives at home alone. Pt does not use any DME at home, she is independent. Pt had a fall at home and has hip fracture. Pt stated she was drinking and she knew better. SW asked how often she drinks, pt stated around 3x per month. Pt also stated she is going to go to AA after she recovers from this surgery. SW asked if she would like resources and pt stated yes. SW to give pt alcohol resources. SW and pt spoke about rehab for therapy at discharge. Pt is agreeable and feels she will need it. Pt voiced she has been to [facility] in past and she would like to try [facility] this time. SW to send referral to [facility]. [facility] is her second choice. Earliest pt can be dc is .
[2022-12-25 10:53] LABS: Glucometer 97 mg/dL (74-106)
--- NOTE | 2022-12-25 10:54 | CM.NOTE ---
Important Message From [employer] discussed with pt, pt verbalizes understanding and signs paper. Original given to pt and copy placed on pt's chart.
--- NOTE | 2022-12-25 14:28 | SWNOTE1 ---
[facility] is able to accept, SW to send operative note and therapy notes once they are in.
--- NOTE | 2022-12-25 14:41 | SWNOTE1 ---
Nursing and pt updated that [facility] is able to accept. SW gave pt AA resources and outpt/inpt counseling for alcohol as well.
[2022-12-25] MEDS: CEFAZOLIN SODIUM/DEXTROSE,ISO 2 GM/50 ML PIGGYBACK IV (15:28)
--- NOTE | 2022-12-25 15:32 | PM.ORCN ---
History of Present Illness HPI Consult date: 12/25/22 Consult reason: fracture Chief complaint: Right Hip Fracture, Weakness Narrative: Is a 67-year-old who presented to the emergency room last night after tripping on close on the floor falling onto her right hip. She had the inability to bear weight. She denies head trauma or loss of consciousness. She reports she was drinking prior to her fall. In the emergency room she was found to have a right femoral neck fracture on CT scan. Patient was admitted for treatment of this injury. Review of Systems ROS Status of ROS 10 or more systems reviewed and unremarkable except as noted in history and below [facility] Medical History (Updated 12/24/22 @ 20:53 by Wendy Cardenas RN) Surgical History (Updated 12/24/22 @ 20:53 by Wendy Cardenas RN) Family History (Updated 12/24/22 @ 20:54 by Wendy Cardenas RN) Mother Family history of CHF (congestive heart failure) Family history of cancer Family history of hypertension Sister Family history of diabetes mellitus Social History (Updated 12/24/22 @ 20:57 by Wendy Cardenas RN) Within the past year, how often did you have a drink containing alcohol: 2-4 times a month Within the past year, how often did you have six or more drinks on one occasion: monthly Smoking status: Heavy tobacco smoker Non-prescribed substance use: cannabis (any form) Previous occupational history: Retired Known occupational exposures/hazards: No Highest level of school completed/degree received: Bachelor's degree Are you now , , , , never or living with a partner: In a typical week, how many times do you talk on the telephone with family, friends, or neighbors: 3 or more times per week How often do you get together with friends or relatives: never How often do you attend judaism or pentecostal services: never Do you belong to any clubs or organizations such as judaism groups unions, fraternal or athletic groups, or school groups: yes Total score: 2 Score interpretation: A score of greater than or equal to 2 indicates the lowest level of social isolation. Little interest or pleasure in doing things: nearly every day Feeling down, depressed, or hopeless: nearly every day Feel stressed/tense/nervous/anxious/difficulty sleeping: very much Do you think of yourself as: straight/heterosexual Gender Identity: female Meds Home Medications and Allergies Home Medications Medication Instructions Recorded Confirmed Type amlodipine 10 mg tablet 10 mg PO DAILY 12/24/22 12/24/22 History atorvastatin 10 mg tablet 10 mg PO DAILY 12/24/22 12/24/22 History cetirizine 10 mg tablet 10 mg PO DAILY 12/24/22 12/24/22 History citalopram 40 mg tablet 40 mg PO DAILY 12/24/22 12/24/22 History cyclobenzaprine 10 mg tablet 10 mg PO Q12H 12/24/22 12/24/22 History diclofenac sodium 75 mg 75 mg PO Q12H 12/24/22 12/24/22 History tablet,delayed release folic acid 1 mg tablet 1 mg PO DAILY 12/24/22 12/24/22 History irbesartan 300 mg tablet 300 mg PO DAILY 12/24/22 12/24/22 History liothyronine 5 mcg tablet 10 mcg PO DAILY 12/24/22 12/24/22 History magnesium oxide 400 mg (241.3 mg 2,800 mg PO DAILY 12/24/22 12/24/22 History magnesium) tablet metformin 850 mg tablet 850 mg PO TID 12/24/22 12/24/22 History omeprazole 40 mg capsule,delayed 40 mg PO DAILY 12/24/22 12/24/22 History release pioglitazone 45 mg tablet 45 mg PO DAILY 12/24/22 12/24/22 History quetiapine 100 mg tablet 100 mg PO BEDTIME 12/24/22 12/24/22 History sodium chloride 1,000 mg soluble 3,000 mg PO BID 12/24/22 12/24/22 History tablet Allergies Allergy/AdvReac Type Severity Reaction Status Date / Time No Known Drug Allergies Allergy Verified 12/24/22 15:45 Exam Narrative Exam Narrative: Examination today logroll of her right hip causes pain. She has a palpable dorsalis pedis pulse. She has normal sensation in the foot and is able to wiggle her toes. No ankle or knee tenderness on the right lower extremity. Skin is intact. Left lower extremity has painless ankle knee and hip range of motion. Bilateral upper extremities have painless range of motion. Constitutional Vital Signs, click to edit/add: Last Vital Signs Temp 98.2 F 12/25/22 13:41 Pulse 88 12/25/22 14:01 Resp 16 12/25/22 13:41 BP 112/65 12/25/22 13:41 Pulse Ox 94 L 12/25/22 14:01 O2 Del Method Room Air 12/25/22 13:41 O2 Flow Rate 1 12/25/22 07:30 Results Labs Labs: Abnormal lab results 12/24/22 12/24/22 12/24/22 Range/Units 00:20 15:44 15:50 RBC 3.43 L (4.20-5.40) 10^6/uL Hgb 10.9 L (12.0-16.0) g/dL Hct 32.9 L (36.0-48.0) % Neut % (Auto) 86.6 H (43.0-75.0) % Lymph % (Auto) 7.3 L (20.5-60.0) % Eos % (Auto) 0.0 L (0.9-7.0) % Neut # (Auto) 9.0 H (1.4-6.5) 10^3/uL Lymph # (Auto) 0.8 L (1.2-3.8) 10^3/uL Abs Immat Gran (auto) 0.05 H (0.00-0.03) 10^3/uL Sodium 132 L (136-145) mmol/L Chloride 95 L (98-107) mmol/L BUN 21.0 H (7.0-18.0) mg/dL Est GFR (Non-Af Amer) 56 L (>=60) Glucose 155 H (74-106) mg/dL Lactate 2.2 H* (0.4-2.0) mmol/L Calcium 8.1 L (8.5-10.1) mg/dL Magnesium 1.6 L (1.8-2.4) mg/dL Myoglobin (9-82) ng/mL Total Protein (6.4-8.2) g/dL Albumin (3.4-5.0) g/dL Ur Specific [place] <=1.005 A (1.005-1.025) Urine Ketones Trace A (NEGATIVE) mg/dL Urine Occult Blood Small A (NEGATIVE) Urine WBC 2-5 A (NONE SEEN) #/HPF Urine Opiates Screen Positive A (NEGATIVE) U Tricyclic Antidepress Positive A (NEGATIVE) U Benzodiazepines Scrn Positive A (NEGATIVE) U Cannabinoids Screen Positive A (NEGATIVE) POC Glucose 154 H (74-106) mg/dL 12/24/22 12/24/22 12/25/22 Range/Units 15:50 21:27 04:13 RBC 3.10 L (4.20-5.40) 10^6/uL Hgb 9.6 L (12.0-16.0) g/dL Hct 29.8 L (36.0-48.0) % Neut % (Auto) (43.0-75.0) % Lymph % (Auto) (20.5-60.0) % Eos % (Auto) 0.8 L (0.9-7.0) % Neut # (Auto) (1.4-6.5) 10^3/uL Lymph # (Auto) (1.2-3.8) 10^3/uL Abs Immat Gran (auto) (0.00-0.03) 10^3/uL Sodium 135 L (136-145) mmol/L Chloride (98-107) mmol/L BUN (7.0-18.0) mg/dL Est GFR (Non-Af Amer) (>=60) Glucose (74-106) mg/dL Lactate (0.4-2.0) mmol/L Calcium 7.9 L (8.5-10.1) mg/dL Magnesium 1.5 L (1.8-2.4) mg/dL Myoglobin 179 H (9-82) ng/mL Total Protein 6.0 L (6.4-8.2) g/dL Albumin 2.9 L (3.4-5.0) g/dL Ur Specific [place] (1.005-1.025) Urine Ketones (NEGATIVE) mg/dL Urine Occult Blood (NEGATIVE) Urine WBC (NONE SEEN) #/HPF Urine Opiates Screen (NEGATIVE) U Tricyclic Antidepress (NEGATIVE) U Benzodiazepines Scrn (NEGATIVE) U Cannabinoids Screen (NEGATIVE) POC Glucose 110 H (74-106) mg/dL H & H 12/24/22 12/25/22 Range/Units 15:50 04:13 Hgb 10.9 L 9.6 L (12.0-16.0) g/dL Hct 32.9 L 29.8 L (36.0-48.0) % Coagulation 12/24/22 Range/Units 15:50 INR 0.98 All other labs normal. Diagnostic results Hip CT: other (CT scan of her right hip was reviewed and it shows a nondisplaced femoral neck fracture) Assessment and Plan Assessment and Plan (1) Acute pain of right hip: (2) Fracture of right hip: (3) Depression: (4) Hypertension: (5) Hypomagnesemia: (6) Hyponatremia: Plan For her right hip femoral neck fracture high and recommended a right hip open reduction internal fixation. I have reviewed her recovery and risks associated with surgery including but not limited to risk of persistent postoperative pain, avascular necrosis the subsequent need for hip replacement in the future, loss of life. She understands the risks and benefits of surgery and has elected to proceed.
[2022-12-25] MEDS: LACTATED RINGER'S SOLUTION 1,000 ML 50 ML IV (16:40)
--- NOTE | 2022-12-25 16:56 | P.ORPRC_ITS ---
Procedure Note Date of procedure: 12/25/22 Pre-op diagnosis: Right hip femoral neck fracture Post-op diagnosis: same as pre-op Procedure: Operation performed: Right hip open reduction internal fixation with Synthes femoral neck system Operative procedure: After informed consent was obtained the patient was brought to the operating room where a spinal anesthetic was administered. Patient was placed on the fracture table. X-rays in multiple planes revealed a reduced femoral neck fracture. The right hip and leg were prepped and draped in the usual sterile fashion. A 6 cm incision was made just distal to the greater trochanter of the right hip in line with the femur. Hemostasis was achieved with Bovie. Fascia was incised in line with the incision. The guide for the Synthes femoral neck system was placed and the guidepin was introduced into the femoral head. X-rays in AP and lateral planes revealed appropriate implant placement. This was then measured, overreamed and a 2 hole Synthes femoral neck system plate with 85 mm bolt were placed. The distal locking screws were placed in the standard fashion and the antirotation screw was placed in the head in the standard fashion. Final x-rays in multiple planes revealed reduced femoral neck fracture with appropriate implant placement and lengths. Wound was irrigated. Fascia was closed with #2 FiberWire suture. Skin was closed in standard fashion in layers. Sterile dressing was placed. Patient was brought to the recovery room in stable condition. There were no intraoperative or immediate postoperative complications. Anesthesia: spinal Surgeon: Arnoldo Dougherty Customer Support Associate: Christen Lr Estimated blood loss (mL): 50 IV fluids (mL): 1,200 Pathology: none sent Condition: stable Disposition: PACU
[2022-12-25 17:59] LABS: Glucometer 70 mg/dL (74-106)
[2022-12-25] MEDS: MAGNESIUM OXIDE 400 MG TABLET 1600 MG PO ×2 (18:02→21:14)
[2022-12-25] MEDS: DIPHENHYDRAMINE HCL 25 MG CAPSULE PO (20:20)
[2022-12-25] MEDS: SODIUM CHLORIDE 1,000 MG TABLET 3000 MG PO (20:20)
[2022-12-25] MEDS: CYCLOBENZAPRINE HCL 10 MG TABLET PO (20:20)
[2022-12-25] MEDS: ENSURE HP 237 ML LIQUID PO (20:21)
[2022-12-25 20:36] LABS: Hematocrit 34.1 % (36.0-48.0); Mean Corpuscular HGB Conc 32.3 g/dL (29.9-35.2); Mean Corpuscular Hemoglobin 32.1 pg (26.7-34.0); Mean Corpuscular Volume 99.4 fL (81.0-99.0); Mean Platelet Volume 10.2 fL (9.5-13.5); Platelet Count 192 10^3/uL (150-450); Red Blood Count 3.43 10^6/uL (4.20-5.40); Red Cell Distribution Width 13.9 % (11.0-15.0); White Blood Count 10.8 10^3/uL (4.0-11.0)
[2022-12-25] MEDS: CALCIUM CARBONATE 500 MG (200MG ELEMENTAL) TAB CHEW PO (21:13)
[2022-12-25] MEDS: QUETIAPINE FUMARATE 100 MG TABLET PO (21:13)
[2022-12-25] MEDS: METFORMIN HCL 850 MG TABLET PO (21:13)
[2022-12-25 21:28] LABS: Glucometer 115 mg/dL (74-106)
[2022-12-25] MEDS: CEFAZOLIN SODIUM/DEXTROSE,ISO 1 GM/50 ML IV.SOLN IV (23:13)
[2022-12-26] VITALS (22 sets, daily range): BP systolic 118–146; BP diastolic 55–71; PULSE 81–97; RESP 16–18; TEMP 36.4–36.9; O2SAT 89–96
[2022-12-26] MEDS: 0.9 % SODIUM CHLORIDE 1,000 ML 100 ML IV (03:59)
[2022-12-26 05:36] LABS: Basophils Percent Auto 0.6 % (0.2-2.0); Eosinophils Absolute Auto 0.1 10^3/uL (0.0-0.7); Eosinophils Percent Auto 0.8 % (0.9-7.0); Hematocrit 28.9 % (36.0-48.0); Hemoglobin 9.4 g/dL (12.0-16.0); Immature Granulocytes Abs Auto 0.02 10^3/uL (0.00-0.03); Immature Granulocytes Pct Auto 0.3 % (0.0-0.5); Lymphocytes Absolute Auto 2.1 10^3/uL (1.2-3.8); Lymphocytes Percent Auto 29.1 % (20.5-60.0); Mean Corpuscular HGB Conc 32.5 g/dL (29.9-35.2); Mean Corpuscular Hemoglobin 31.9 pg (26.7-34.0); Mean Platelet Volume 10.6 fL (9.5-13.5); Monocytes Absolute Auto 0.8 10^3/uL (0.3-0.8); Monocytes Percent Auto 10.4 % (1.7-12.0); Neutrophils Absolute Auto 4.2 10^3/uL (1.4-6.5); Neutrophils Percent Auto 58.8 % (43.0-75.0); Platelet Count 175 10^3/uL (150-450); Red Blood Count 2.95 10^6/uL (4.20-5.40); White Blood Count 7.2 10^3/uL (4.0-11.0)
[2022-12-26 05:48] LABS: Magnesium 1.3 mg/dL (1.8-2.4)
[2022-12-26 06:00] LABS: Alanine Aminotransferase 19 U/L (14-59); Albumin Globulin Ratio 0.8; Albumin Level 2.6 g/dL (3.4-5.0); Alkaline Phosphatase 82 U/L (46-116); Anion Gap 9.9; Aspartate Amino Transferase 22 U/L (15-37); BUN Creatinine Ratio 12.2; Bilirubin Total 0.4 mg/dL (0.2-1.0); Calcium 7.7 mg/dL (8.5-10.1); Carbon Dioxide 27.1 mmol/L (21.0-32.0); Chloride 100 mmol/L (98-107); Estimated GFR (African America >60 (>=60); Estimated GFR (Non-African Ame >60 (>=60); Globulin 3.1 g/dL; Glucose 125 mg/dL (74-106); Sodium 133 mmol/L (136-145); Total Protein 5.7 g/dL (6.4-8.2)
[2022-12-26] MEDS: METFORMIN HCL 850 MG TABLET PO ×3 (06:15→21:18)
[2022-12-26] MEDS: CALCIUM CARBONATE 500 MG (200MG ELEMENTAL) TAB CHEW PO ×3 (06:15→21:19)
--- NOTE | 2022-12-26 07:22 | PM.ORPN ---
Progress Note: A&P Assessment and Plan (1) Acute pain of right hip: (2) Fracture of right hip: Assessment and Plan: POD#1 from right hip ORIF doing well PT for TTWB today DVT prophylaxis Pain control (3) Depression: (4) Hypertension: (5) Hypomagnesemia: (6) Hyponatremia: Subjective Subjective Interval history: Patient reports she is doing well this morning. [place] has helped with pain which is minimal currently Exam Narrative Exam Narrative: RLE: Dressing C/D/I D.NVI Hgb:9.4 Constitutional Vital Signs, click to edit/add: Last Vital Signs Temp 98.4 F 12/26/22 04:37 Pulse 87 12/26/22 06:00 Resp 18 12/26/22 04:37 BP 122/55 12/26/22 04:37 Pulse Ox 91 L 12/26/22 06:58 O2 Del Method Room Air 12/26/22 06:58 O2 Flow Rate 1 12/25/22 07:30 Urinary Catheter Management Urinary Catheter Management Urethral: Cath placed during this visit: yes Urethral indwelling: Yes Reason for continuing: surgical procedure Insertion date: 12/24/22 Insertion time: 21:47
[2022-12-26] MEDS: CEFAZOLIN SODIUM/DEXTROSE,ISO 1 GM/50 ML IV.SOLN IV ×2 (07:23→15:43)
[2022-12-26 07:35] LABS: Glucometer 124 mg/dL (74-106)
[2022-12-26] MEDS: MAGNESIUM OXIDE 400 MG TABLET 1600 MG PO ×4 (07:39→21:18)
--- NOTE | 2022-12-26 07:59 | P.PN_ITS ---
Progress Note: Subjective Subjective Interval history: Patient without complaint, no withdrawal symptoms Exam Constitutional Vital Signs, click to edit/add: Last Vital Signs Temp 98.4 F 12/26/22 04:37 Pulse 87 12/26/22 06:00 Resp 18 12/26/22 07:43 BP 122/55 12/26/22 04:37 Pulse Ox 91 L 12/26/22 06:58 O2 Del Method Room Air 12/26/22 06:58 O2 Flow Rate 1 12/25/22 07:30 Common normals: no apparent distress Exam limitations: no altered mental status Chest Common normals: inspection of chest normal Respiratory Common normals: normal respiratory effort, no retractions and clear to auscultation bilaterally Auscultation: diminished lung sounds Cardio Common normals: regular rate, regular rhythm and no murmurs GI Common normals: Normal to inspection, nondistended, normoactive bowel sounds present, soft to palpation, non-tender and no masses Progress Note: Objective Labs Labs: Short CBC 12/25/22 12/26/22 Range/Units 20:25 04:29 WBC 10.8 7.2 (4.0-11.0) 10^3/uL Hgb 11.0 L 9.4 L (12.0-16.0) g/dL Hct 34.1 L 28.9 L (36.0-48.0) % Plt Count 192 175 (150-450) 10^3/uL BMP 12/26/22 04:29 Sodium 133 L Potassium 4.0 Chloride 100 Carbon Dioxide 27.1 BUN 10.0 Creatinine 0.82 Glucose 125 H Calcium 7.7 L Liver Function 12/26/22 Range/Units 04:29 Total Bilirubin 0.4 (0.2-1.0) mg/dL AST 22 (15-37) U/L ALT 19 (14-59) U/L Alkaline Phosphatase 82 (46-116) U/L Albumin 2.6 L (3.4-5.0) g/dL Progress Note: A&P Assessment and Plan (1) Acute pain of right hip: (2) Fracture of right hip: (3) Depression: (4) Hypertension: (5) Hypomagnesemia: (6) Hyponatremia: Plan Sinus tachycardia, uncontrolled hypertension secondary to right hip pain secondary to right femoral neck fracture-consult orthopedics-n.p.o., surgery completed yesterday without issue Iron deficiency anemia-monitor daily, repeat later today as her hemoglobin is down somewhat, down again this morning, but overall it stays stable Mild dehydration secondary to alcohol intake, BUN is improved, sodium is improved Hypocalcemia-supplement Hypomagnesemia-supplement Mild protein calorie malnutrition-add Ensure Acute hypoxia-secondary to pain medication and her sleeping, oxygen down into the 70%, improved with supplemental oxygen on 2 L, oxygen improved Patient currently in observation status likely needs placement for rehab postsurgery. Change patient to inpatient
[2022-12-26] MEDS: OMEPRAZOLE 40 MG CAPSULE.DR PO (08:50)
[2022-12-26] MEDS: FOLIC ACID 1 MG TABLET PO (08:50)
[2022-12-26] MEDS: ATORVASTATIN CALCIUM 10 MG TABLET PO (08:50)
[2022-12-26] MEDS: LOSARTAN POTASSIUM 50 MG TABLET 100 MG PO (08:50)
[2022-12-26] MEDS: ENSURE HP 237 ML LIQUID PO ×2 (08:50→21:19)
[2022-12-26] MEDS: CITALOPRAM HYDROBROMIDE 20 MG TABLET 40 MG PO (08:50)
[2022-12-26] MEDS: DOCUSATE SODIUM 100 MG CAPSULE PO ×3 (08:53→21:19)
[2022-12-26] MEDS: AMLODIPINE BESYLATE 5 MG TABLET 10 MG PO (08:53)
[2022-12-26] MEDS: MULTIVITAMIN TABLET 1 TAB PO (08:53)
[2022-12-26] MEDS: THIAMINE MONONITRATE (VIT B1) 100 MG TABLET PO (08:53)
[2022-12-26] MEDS: CETIRIZINE HCL 10 MG TABLET PO (08:55)
[2022-12-26] MEDS: CYCLOBENZAPRINE HCL 10 MG TABLET PO ×2 (09:03→21:18)
[2022-12-26] MEDS: PIOGLITAZONE 15 MG TABLET 45 MG PO (09:03)
[2022-12-26] MEDS: SODIUM CHLORIDE 1,000 MG TABLET 3000 MG PO ×2 (09:03→21:17)
[2022-12-26] MEDS: LIOTHYRONINE SODIUM 5 MCG TABLET 10 MCG PO (09:03)
[2022-12-26 10:54] LABS: Glucometer 165 mg/dL (74-106)
--- NOTE | 2022-12-26 12:57 | SWNOTE1 ---
SW sent updates to [employer].
[2022-12-26] MEDS: INSULIN ASPART 300 UNIT/3 ML PEN SUBQ ×2 (13:48→21:19)
[2022-12-26] MEDS: HYOSCYAMINE SULFATE 0.125 MG TAB.SUBL SL ×2 (13:51→16:43)
[2022-12-26 15:53] LABS: Glucometer 85 mg/dL (74-106)
[2022-12-26 20:46] LABS: Glucometer 147 mg/dL (74-106)
[2022-12-26] MEDS: ENOXAPARIN SODIUM 40 MG/0.4 ML SYRINGE SUBQ (21:17)
[2022-12-26] MEDS: ACETAMINOPHEN 500 MG TABLET 1000 MG PO (21:18)
[2022-12-26] MEDS: QUETIAPINE FUMARATE 100 MG TABLET PO (21:18)
[2022-12-26] MEDS: TEMAZEPAM 15 MG CAPSULE PO (21:18)
[2022-12-27] VITALS (9 sets, daily range): BP systolic 128; BP diastolic 76; PULSE 79–96; RESP 16; TEMP 36.4; O2SAT 92–95
[2022-12-27 05:44] LABS: Basophils Percent Auto 0.5 % (0.2-2.0); Eosinophils Absolute Auto 0.1 10^3/uL (0.0-0.7); Eosinophils Percent Auto 1.7 % (0.9-7.0); Hematocrit 31.9 % (36.0-48.0); Hemoglobin 10.4 g/dL (12.0-16.0); Immature Granulocytes Abs Auto 0.02 10^3/uL (0.00-0.03); Immature Granulocytes Pct Auto 0.3 % (0.0-0.5); Lymphocytes Absolute Auto 2.2 10^3/uL (1.2-3.8); Lymphocytes Percent Auto 34.2 % (20.5-60.0); Mean Corpuscular HGB Conc 32.6 g/dL (29.9-35.2); Mean Corpuscular Hemoglobin 31.6 pg (26.7-34.0); Mean Platelet Volume 10.7 fL (9.5-13.5); Monocytes Absolute Auto 0.7 10^3/uL (0.3-0.8); Monocytes Percent Auto 10.5 % (1.7-12.0); Neutrophils Absolute Auto 3.4 10^3/uL (1.4-6.5); Neutrophils Percent Auto 52.8 % (43.0-75.0); Platelet Count 160 10^3/uL (150-450); Red Blood Count 3.29 10^6/uL (4.20-5.40); Red Cell Distribution Width 13.5 % (11.0-15.0); White Blood Count 6.4 10^3/uL (4.0-11.0)
[2022-12-27 06:06] LABS: Alanine Aminotransferase 16 U/L (14-59); Albumin Globulin Ratio 0.8; Albumin Level 2.6 g/dL (3.4-5.0); Alkaline Phosphatase 87 U/L (46-116); Aspartate Amino Transferase 24 U/L (15-37); BUN Creatinine Ratio 14.5; Bilirubin Total 0.5 mg/dL (0.2-1.0); Calcium 8.2 mg/dL (8.5-10.1); Carbon Dioxide 29.6 mmol/L (21.0-32.0); Chloride 103 mmol/L (98-107); Estimated GFR (African America >60 (>=60); Estimated GFR (Non-African Ame >60 (>=60); Globulin 3.4 g/dL; Glucose 89 mg/dL (74-106); Potassium 3.6 mmol/L (3.5-5.1); Sodium 137 mmol/L (136-145)
[2022-12-27] MEDS: MAGNESIUM OXIDE 400 MG TABLET 1600 MG PO (06:13)
[2022-12-27] MEDS: METFORMIN HCL 850 MG TABLET PO (06:13)
[2022-12-27] MEDS: CALCIUM CARBONATE 500 MG (200MG ELEMENTAL) TAB CHEW PO (06:13)
--- NOTE | 2022-12-27 07:15 | PM.ORPN ---
Progress Note: A&P Assessment and Plan (1) Acute pain of right hip: (2) Fracture of right hip: Assessment and Plan: POD#2 from right hip FNS doing well PT Discharge planning Follow up with Dr. Dougherty in 2 weeks (3) Depression: (4) Hypertension: (5) Hypomagnesemia: (6) Hyponatremia: Subjective Subjective Interval history: Doing well today. Exam Narrative Exam Narrative: RLE: Incision C/D/I D.NVI thigh soft Hgb: 10.4 Constitutional Vital Signs, click to edit/add: Last Vital Signs Temp 97.6 F 12/27/22 04:04 Pulse 81 12/27/22 06:00 Resp 16 12/27/22 04:04 BP 128/76 12/27/22 04:04 Pulse Ox 95 12/27/22 04:04 O2 Del Method Room Air 12/27/22 04:04 O2 Flow Rate 1 12/25/22 07:30 Urinary Catheter Management Urinary Catheter Management Urethral: Cath placed during this visit: yes Urethral indwelling: Yes Reason for continuing: surgical procedure Insertion date: 12/24/22 Insertion time: 21:47
[2022-12-27 08:02] LABS: Magnesium 1.7 mg/dL (1.8-2.4)
--- NOTE | 2022-12-27 08:06 | P.DS_ITS ---
DS: Providers Provider Date of admission: 12/24/22 19:48 Primary care physician: Yves Whiting MD Consults: 12/24/22 18:40 Consult to Orthopedic Surgery Routine Consulting Provider: Arnoldo Dougherty Reason For Exam: Reason for consultation: hip fx Has provider been notified: Yes Physical Therapy Eval and Treat Routine Reason for consultation: hip fx Has provider been notified: No 12/25/22 07:09 Consult to Implementation Services Analyst Routine Has provider been notified: No Reason for consult:: Penitentiary 12/25/22 17:07 Physical Therapy Eval and Treat Routine Reason for consultation: ttwb RLE Has provider been notified: No 12/25/22 17:08 Occupational Therapy Eval and Treat Routine Reason for consultation: HIP FRACTURE Has provider been notified: No DS: Diagnosis Discharge Diagnosis (1) Acute pain of right hip: (2) Fracture of right hip: (3) Depression: (4) Hypertension: (5) Hypomagnesemia: (6) Hyponatremia: Plan Sinus tachycardia, uncontrolled hypertension secondary to right hip pain secondary to right femoral neck fracture Iron deficiency anemia Mild dehydration secondary to alcohol intake Hypocalcemia Hypomagnesemia Mild protein calorie malnutrition Acute hypoxia-secondary to pain medication DS: Summary Hospital Course Hospital Course: Patient had a fall at home, no syncope just tripped and fell, had instant pain, presented to the emergency room and found to have hip fracture, patient admitted, following day taken to the OR, only other issue for her she has some mild dehydration some mild tachycardia, given IV fluids and then improved, patient had some remote history of EtOH abuse. No signs of withdrawal throughout the entire hospitalization. Pain fairly well controlled. At this point she is medically stable for discharge to rehab. I will follow patient rehab. Medications see list Time Spent with Patient Time attestation: Total time spent providing and/or coordinating discharge services: Exam Constitutional Vital Signs, click to edit/add: Last Vital Signs Temp 97.6 F 12/27/22 04:04 Pulse 84 12/27/22 08:00 Resp 16 12/27/22 04:04 BP 128/76 12/27/22 04:04 Pulse Ox 95 12/27/22 04:04 O2 Del Method Room Air 12/27/22 04:04 O2 Flow Rate 1 12/25/22 07:30 Common normals: no apparent distress Exam limitations: no altered mental status Chest Common normals: inspection of chest normal Respiratory Common normals: normal respiratory effort, no retractions and clear to auscultation bilaterally Auscultation: diminished lung sounds Cardio Common normals: regular rate, regular rhythm and no murmurs GI Common normals: Normal to inspection, nondistended, normoactive bowel sounds present, soft to palpation, non-tender and no masses DS: Data Data Completed and Pending Labs on day of discharge: Labs from last 24 hours 12/27/22 12/26/22 12/26/22 04:50 20:44 15:52 WBC 6.4 RBC 3.29 L Hgb 10.4 L Hct 31.9 L MCV 97.0 MCH 31.6 MCHC 32.6 RDW 13.5 Plt Count 160 MPV 10.7 Neut % (Auto) 52.8 Lymph % (Auto) 34.2 [place] % (Auto) 10.5 Eos % (Auto) 1.7 Baso % (Auto) 0.5 Neut # (Auto) 3.4 Lymph # (Auto) 2.2 [place] # (Auto) 0.7 Eos # (Auto) 0.1 Baso # (Auto) 0.0 Abs Immat Gran (auto) 0.02 Imm/Tot Granulo (auto) 0.3 Sodium 137 Potassium 3.6 Chloride 103 Carbon Dioxide 29.6 Anion Gap 8.0 BUN 11.0 Creatinine 0.76 Est GFR ( Amer) >60 Est GFR (Non-Af Amer) >60 BUN/Creatinine Ratio 14.5 Glucose 89 Calcium 8.2 L Total Bilirubin 0.5 AST 24 ALT 16 Alkaline Phosphatase 87 Total Protein 6.0 L Albumin 2.6 L Globulin 3.4 Albumin/Globulin Ratio 0.8 POC Glucose 147 H 85 12/26/22 10:52 WBC RBC Hgb Hct MCV MCH MCHC RDW Plt Count MPV Neut % (Auto) Lymph % (Auto) [place] % (Auto) Eos % (Auto) Baso % (Auto) Neut # (Auto) Lymph # (Auto) [place] # (Auto) Eos # (Auto) Baso # (Auto) Abs Immat Gran (auto) Imm/Tot Granulo (auto) Sodium Potassium Chloride Carbon Dioxide Anion Gap BUN Creatinine Est GFR ( Amer) Est GFR (Non-Af Amer) BUN/Creatinine Ratio Glucose Calcium Total Bilirubin AST ALT Alkaline Phosphatase Total Protein Albumin Globulin Albumin/Globulin Ratio POC Glucose 165 H Discharge Plan Discharge Disposition: Xfer SNF Discharge Medications: New hydrocodone-acetaminophen 5-325 mg Tablet 1 tab PO Q4H PRN (Reason: Pain) Qty: 120 0RF acetaminophen [Tylenol Extra Strength] 500 mg Tablet 1,000 mg PO Q6H PRN (Reason: Pain Scale 1-3) Qty: 90 0RF calcium carbonate 200 mg calcium (500 mg) Tablet,Chewable 500 mg PO TID Qty: 90 0RF Ensure Active Protein-Muscle Liquid 1 ea PO BID Qty: 5688 0RF Continued amlodipine 10 mg tablet 10 mg PO DAILY atorvastatin 10 mg tablet 10 mg PO DAILY cetirizine 10 mg tablet 10 mg PO DAILY citalopram 40 mg tablet 40 mg PO DAILY cyclobenzaprine 10 mg tablet 10 mg PO Q12H diclofenac sodium 75 mg tablet,delayed release (DR/EC) 75 mg PO Q12H folic acid 1 mg tablet 1 mg PO DAILY irbesartan 300 mg tablet 300 mg PO DAILY liothyronine 5 mcg tablet 10 mcg PO DAILY magnesium oxide 400 mg (241.3 mg magnesium) tablet 2,800 mg PO DAILY metformin 850 mg tablet 850 mg PO TID omeprazole 40 mg capsule,delayed release(DR/EC) 40 mg PO DAILY pioglitazone 45 mg tablet 45 mg PO DAILY quetiapine 100 mg tablet 100 mg PO BEDTIME sodium chloride 1,000 mg tablet,soluble 3,000 mg PO BID Forms: Portal Instructions
[2022-12-27] MEDS: SODIUM CHLORIDE 1,000 MG TABLET 3000 MG PO (09:26)
[2022-12-27] MEDS: THIAMINE MONONITRATE (VIT B1) 100 MG TABLET PO (09:26)
[2022-12-27] MEDS: CETIRIZINE HCL 10 MG TABLET PO (09:26)
[2022-12-27] MEDS: LIOTHYRONINE SODIUM 5 MCG TABLET 10 MCG PO (09:27)
[2022-12-27] MEDS: OMEPRAZOLE 40 MG CAPSULE.DR PO (09:27)
[2022-12-27] MEDS: LOSARTAN POTASSIUM 50 MG TABLET 100 MG PO (09:27)
[2022-12-27] MEDS: MULTIVITAMIN TABLET 1 TAB PO (09:27)
[2022-12-27] MEDS: AMLODIPINE BESYLATE 5 MG TABLET 10 MG PO (09:27)
[2022-12-27] MEDS: PIOGLITAZONE 15 MG TABLET 45 MG PO (09:27)
[2022-12-27] MEDS: FOLIC ACID 1 MG TABLET PO (09:27)
[2022-12-27] MEDS: CITALOPRAM HYDROBROMIDE 20 MG TABLET 40 MG PO (09:27)
[2022-12-27] MEDS: ATORVASTATIN CALCIUM 10 MG TABLET PO (09:27)
[2022-12-27] MEDS: CYCLOBENZAPRINE HCL 10 MG TABLET PO (09:27)
[2022-12-27] MEDS: HYOSCYAMINE SULFATE 0.125 MG TAB.SUBL SL ×2 (09:27→12:10)
--- NOTE | 2022-12-27 10:31 | SWNOTE1 ---
Pt is ready for dc today. SW sent over dc orders and completed HENS. SW called and set up trips for 12:15-12:45. Pt is going to [facility] skilled for rehab. SW notified nursing, [facility], and pt of time.
[2022-12-27] MEDS: INSULIN ASPART 300 UNIT/3 ML PEN SUBQ (12:14)
[2022-12-27 12:20] LABS: Glucometer 201 mg/dL (74-106)
[2022-12-27 14:36] LABS: Adenovirus F 40/41 NOT DETECTED (NOT DETECTE); Astrovirus NOT DETECTED (NOT DETECTE); Campylobacter NOT DETECTED (NOT DETECTE); Cryptosporidium NOT DETECTED (NOT DETECTE); Cyclospora cayetanensis NOT DETECTED (NOT DETECTE); Entamoeba histolytica NOT DETECTED (NOT DETECTE); Enteroaggregative E.coli NOT DETECTED (NOT DETECTE); Enteropathogenic E.coli NOT DETECTED (NOT DETECTE); Enterotoxigenic E. coli NOT DETECTED (NOT DETECTE); Giardia lamblia NOT DETECTED (NOT DETECTE); Norovirus GI/GII NOT DETECTED (NOT DETECTE); Plesiomonas shigelloides NOT DETECTED (NOT DETECTE); Rotavirus A NOT DETECTED (NOT DETECTE); Salmonella NOT DETECTED (NOT DETECTE); Sapovirus NOT DETECTED (NOT DETECTE); Shiga-like toxin-producing E.C NOT DETECTED (NOT DETECTE); Shigella/Enteroinvasive E.coli NOT DETECTED (NOT DETECTE); Vibrio NOT DETECTED (NOT DETECTE); Vibrio cholerae NOT DETECTED (NOT DETECTE); Yersinia enterocolitica NOT DETECTED (NOT DETECTE)
== END 2022-12-27 13:34 | DRG 481 ==
LOC: ER 18:46 → MS 20:00
PROVIDERS: Anesthesiology; Orthopaedic Surgery; Physician Assistant; Admitting Provider Family Medicine; Emergency Provider Emergency Medicine; PCP Family Medicine; Visit Provider Family Medicine
PROC: 0QS604Z Reposition Right Upper Femur with Internal Fixation Device, Open Approach (ICD-10-PCS; principal; 2022-12-25 15:30)
DX: S72.001A Fracture of unspecified part of neck of right femur, initial encounter for closed fracture (principal); E44.1 Mild protein-calorie malnutrition; E87.1 Hypo-osmolality and hyponatremia; I10 Essential (primary) hypertension; E86.0 Dehydration; D50.9 Iron deficiency anemia, unspecified; E83.42 Hypomagnesemia; E83.51 Hypocalcemia; F32.A Depression, unspecified; R09.02 Hypoxemia; R00.0 Tachycardia, unspecified; T40.2X5A Adverse effect of other opioids, initial encounter; F17.200 Nicotine dependence, unspecified, uncomplicated; Z80.9 Family history of malignant neoplasm, unspecified; Z83.3 Family history of diabetes mellitus; Z82.49 Family history of ischemic heart disease and other diseases of the circulatory system; Z79.899 Other long term (current) drug therapy; Z68.32 Body mass index [BMI] 32.0-32.9, adult; W18.31XA Fall on same level due to stepping on an object, initial encounter; Y93.9 Activity, unspecified; Y92.009 Unspecified place in unspecified non-institutional (private) residence as the place of occurrence of the external cause; Y99.9 Unspecified external cause status
CPT/HCPCS: 36415; 70450; 71045; 73030; 73502; 73700; 76000; 80053; 80307; 80320; 81001; 82550; 82553; 82948; 83605; 83735; 83874; 84100; 84436; 84443; 84484; 85025; 85027; 85610; 87493; 87507; 93005; 94667; 94668; 94761; 96365; 96366; 96372; 96375; 96376; 97162; 97165; 99285; C1713; J1170

== ENCOUNTER 2023-01-07 09:03 | Outpatient (OUT) | payer MEDICARE, SELFPAY ==
--- NOTE | 2023-01-07 09:05 | XR_ITS ---
The [address] [address] Patient Name: JACINTO SANCHEZ MRN: [id number] date: 1955 Sex: F Assigned Patient Location: [facility] Current Patient Location: [facility] Accession/Order Number: [id number] Exam Date: 01/07/2023 09:10 Report Date: 01/07/2023 09:42 At the request of: NAVI JAMES Procedure: XR hip RT 2V w/ pelvis EXAM: AP of the pelvis and right hip HISTORY: . Right Hip Pain M25.551 . COMPARISON: 12/24/2022 TECHNIQUE: 4 views FINDINGS: Bony pelvis is intact. No fracture or bony destructive process is noted. There is a plate and screws transfixing a previously noted femoral neck fracture. Fracture fragments appear in good position and alignment. No dislocation is noted. Skin dayna overlie the operative site. XR/XR hip RT 2V w/ pelvis IMPRESSION: 1. No acute abnormality of the pelvis. 2. Previous open reduction and internal fixation of the femoral neck fracture. Fracture fragments appear in good position and alignment. Electronically authenticated by: NICHOLAS RENE Date: 01/07/2023 09:42
== END 2023-01-07 09:04 | disposition home or self-care (01) ==
LOC: RAD 09:03
PROVIDERS: PCP Family Medicine; Visit Provider Orthopaedic Surgery
DX: M25.551 Pain in right hip (principal)
CPT/HCPCS: 73502

== ENCOUNTER 2023-02-11 08:54 | Outpatient (OUT) | payer MEDICARE, SELFPAY ==
--- NOTE | 2023-02-11 09:05 | XR_ITS ---
The [address] [address] Patient Name: JACINTO SANCHEZ MRN: [id number] date: 1955 Sex: F Assigned Patient Location: [facility] Current Patient Location: [facility] Accession/Order Number: [id number] Exam Date: 02/11/2023 09:10 Report Date: 02/11/2023 11:01 At the request of: NAVI JAMES Procedure: XR hip RT 2V w/ pelvis PROCEDURE: XR hip RT 2V w/ pelvis COMPARISON: 01/07/2023 HISTORY: Fracture Of Unspecified Part Of Neck Of Right Femur S72.001A FINDINGS: BONES:Stable remote fixation of a right subcapital hip fracture. Mild to moderate bilateral hip osteoarthropathy. SOFT TISSUES:Negative. No visible soft tissue swelling. EFFUSION:None visible. OTHER: Negative. XR/XR hip RT 2V w/ pelvis IMPRESSION: Stable internal fixation right hip Electronically authenticated by: NICHOLAS DAWSON Date: 02/11/2023 11:01
== END 2023-02-11 08:55 | disposition home or self-care (01) ==
LOC: RAD 08:54
PROVIDERS: PCP Family Medicine; Visit Provider Orthopaedic Surgery
DX: S72.011A Unspecified intracapsular fracture of right femur, initial encounter for closed fracture (principal)
CPT/HCPCS: 73502

== ENCOUNTER 2023-02-26 12:34 | Outpatient (OUT) | payer MEDICARE, SELFPAY ==
--- NOTE | 2023-02-26 12:42 | US_ITS ---
The [address] [address] Patient Name: JACINTO SANCHEZ MRN: [id number] date: 1955 Sex: F Assigned Patient Location: [facility] Current Patient Location: [facility] Accession/Order Number: [id number] Exam Date: 02/26/2023 12:45 Report Date: 02/26/2023 15:17 At the request of: ASH BERNSTEIN Procedure: US venous doppler LE RT EXAMINATION: US venous doppler LE RT HISTORY: r60.9 edema COMPARISON: No relevant comparison available. FINDINGS: REGION: Right Leg. THROMBI: None. COMPRESSIBILITY: Normal compressibility. FLOW: Normal waveform and antegrade flow between 5 and 20 cm/s. OTHER: None. US/US venous doppler LE RT IMPRESSION: 1. No deep vein thrombus within the right lower extremity. Electronically authenticated by: NAVI GARY Date: 02/26/2023 15:17
== END 2023-02-26 12:35 | disposition home or self-care (01) ==
LOC: RAD 12:36
PROVIDERS: PCP Family Medicine; Visit Provider Family Medicine
DX: R60.9 Edema, unspecified (principal); E87.1 Hypo-osmolality and hyponatremia; D50.9 Iron deficiency anemia, unspecified; M79.661 Pain in right lower leg
CPT/HCPCS: 93971

== ENCOUNTER 2023-03-11 08:32 | Outpatient (OUT) | payer MEDICARE, SELFPAY ==
--- NOTE | 2023-03-11 08:35 | XR_ITS ---
The [address] [address] Patient Name: JACINTO SANCHEZ MRN: [id number] date: 1955 Sex: F Assigned Patient Location: [facility] Current Patient Location: [facility] Accession/Order Number: [id number] Exam Date: 03/11/2023 08:40 Report Date: 03/11/2023 09:05 At the request of: ASH BERNSTEIN Procedure: XR hip RT 2V w/ pelvis PROCEDURE: XR hip RT 2V w/ pelvis HISTORY: Fracture Right Femur S72.001A COMPARISON: XR hip right 02/11/2023 FINDINGS: BONES:Prior right femoral neck repair without evidence of hardware fracture loosening. No visible fracture or periosteal reaction. SOFT TISSUES:No visible soft tissue swelling. EFFUSION:None visible. OTHER: Negative. XR/XR hip RT 2V w/ pelvis IMPRESSION: 1. Prior right hip repair without evidence of hardware failure or change in alignment. Electronically authenticated by: NAVI GARY Date: 03/11/2023 09:05
== END 2023-03-11 08:33 | disposition home or self-care (01) ==
LOC: RAD 08:32
PROVIDERS: PCP Family Medicine; Visit Provider Family Medicine
DX: S72.011D Unspecified intracapsular fracture of right femur, subsequent encounter for closed fracture with routine healing (principal)
CPT/HCPCS: 73502

== ENCOUNTER 2023-03-25 12:11 | Outpatient (OUT) | payer MEDICARE, SELFPAY ==
[2023-03-25 12:54] LABS: Anion Gap 13.4; BUN Creatinine Ratio 16.2; Calcium 8.9 mg/dL (8.5-10.1); Carbon Dioxide 27.8 mmol/L (21.0-32.0); Chloride 99 mmol/L (98-107); Estimated GFR (African America >60 (>=60); Estimated GFR (Non-African Ame 56 (>=60); Glucose 127 mg/dL (74-106); Magnesium 1.3 mg/dL (1.8-2.4); Potassium 5.2 mmol/L (3.5-5.1); Sodium 135 mmol/L (136-145)
== END 2023-03-25 12:12 | disposition home or self-care (01) ==
LOC: LAB 12:12
PROVIDERS: PCP Family Medicine; Visit Provider Family Medicine
DX: E83.42 Hypomagnesemia (principal); R89.9 Unspecified abnormal finding in specimens from other organs, systems and tissues; E87.1 Hypo-osmolality and hyponatremia; D50.9 Iron deficiency anemia, unspecified
CPT/HCPCS: 36415; 80048; 83735

== ENCOUNTER 2023-04-18 10:27 | Outpatient (OUT) | payer MEDICARE, SELFPAY ==
--- OUTSIDE RECORDS SUMMARY | 2023-04-18 10:51 | XMS_ITS | CCD ---
Author Name Unknown Address [address] [facility] [address] [facility] [address] [place] [address] Organization [facility] Care Team Providers Care Sample Maker Hand Name Role Phone MD Ash Bernstein Primary Care Provider MD Asa Napoles Attending Provider DO Barry Colby Emergency Provider MD Deangelo Kulkarni Admit Provider [phone] MD Deangelo Kulkarni Attending Provider MD Skyler Ro Other Provider DO Javan Boothe Other Provider DO Navarro Cota Attending Provider MD Ryan Ibrahim Admit Provider MD Ryan Ibrahim Attending Provider CHRISTIE Garcia Other Provider Unavailable CHRISTIE German Other Provider Unavailable CHRISTIE Kay Other Provider Unavailable CHRISTIE Vu Other Provider Unavailable CHRISTIE Rivera Other Provider Unavailable CHRISTIE Tamez Other Provider Unavailable MD Mario Knutson Other Provider MD Michael Weber Other Provider HEMANTH Braswell Other Provider DO Aubrey Martinez Other Provider MD Jonnathan Miguel Other Provider [phone] DO Navarro Cota Other Provider MD Jan Wood Other Provider MD Angelina Riley Other Provider [phone] Kurtis, ANP-BC Nicolasa Other Provider [phone] MD Conchita Weber Other Provider MD Kobe Morris Other Provider MD Rachel Persaud Other Provider MD Chandler Wynn Other Provider DO Zainab Story Other Provider [phone] MD Lauren Vicente Other Provider MD Zack Alonso Other Provider ELISA Posadas-C Keisha Diaz Other Provider MD Wilian Pearson Other Provider MD Kun Perkins Other Provider MD Derrick Cash Other Provider DO Marlee Garces Other Provider DO Luca Lang Other Provider DO Ori Pardo Other Provider HEMANTH Buckner Other Provider DO Eugenio Tirado Other Provider MD Deangelo Kulkarni Other Provider HEMANTH Shoemaker Other Provider CHRISTIE Palacio Other Provider Unavailable Ash Bernstein Primary Care Physician Asa Napoles Unavailable Zainab BURNS Attending Unavailable Zainab BURNS Attending Unavailable Zainab BURNS Attending Unavailable MD Ash Bernstein Primary Care Provider [phone] MD Asa Napoles Attending Provider [phone] ASH WESTBROOK Primary Care Unavailable AMANDEEP Kingsley, DR ALEMAN Consulting Unavailable AMANDEEP Kingsley, DR ALEMAN Attending Unavailable HOY ., DR ALEMAN Admsean Unavailable HOY ., DR ALEMAN Primary Care Unavailable HOY ., DR ALEMAN Consulting Unavailable HOY ., DR ALEMAN Attending Unavailable HOY ., DR ALEMAN Admsean Unavailable HOY ., DR ALEMAN Primary Care Unavailable HOY ., DR ALEMAN Consulting Unavailable HOY ., DR ALEMAN Attending Unavailable HOY ., DR ALEMAN Admsean Unavailable HOY ., DR ALEMAN Primary Care Unavailable HOY ., DR ALEMAN Consulting Unavailable HOY ., DR ALEMAN Attending Unavailable HOY ., DR ALEMAN Admsean Unavailable ZIEBER, DR NAVI Cooley Consulting Unavailable HOY ., DR ALEMAN Primary Care Unavailable HOY ., DR ALEMAN Consulting Unavailable HOY ., DR ALEMAN Attending Unavailable HOY ., DR ALEMAN Admsean Unavailable HOY ., DR ALEMAN Attending Unavailable HOY ., DR ALEMAN Admsean Unavailable HOY ., DR ALEMAN Primary Care Unavailable HOY ., DR ALEMAN Attending Unavailable HOY ., DR ALEMAN Consulting Unavailable HOY ., DR ASH Hernandez Unavailable HOY ., DR ALEMAN Primary Care Unavailable HOY ., DR ALEMAN Attending Unavailable HOY ., DR ALEMAN Consulting Unavailable HOY ., DR ALEMAN Primary Care Unavailable HOY ., DR ALEMAN Admsean Unavailable BENITEZTOMMY Attending Unavailable BENITEZTOMMY Admitting Unavailable HOY ., DR ALEMAN Primary Care Unavailable HOY ., DR ALEMAN Primary Care Unavailable HOY ., DR ALEMAN Consulting Unavailable HOY ., DR ALEMAN Admsean Unavailable HOY ., DR ALEMAN Attending Unavailable HOY ., DR ALEMAN Attending Unavailable HOY ., DR ALEMAN Consulting Unavailable HOY ., DR ALEMAN Admsean Unavailable HOY ., DR ALEMAN Primary Care Unavailable HOY ., DR ALEMAN Primary Care Unavailable NILL ., DR LAMB Consulting Unavailable NILL ., DR LAMB Attending Unavailable NILL ., DR LAMB Admitting Unavailable WILFREDO ARCE Consulting Unavailable VIKRAM II, ASA Consulting Unavailable RITA VALVERDE Consulting Unavailable RITA VALVERDE Attending Unavailable HOY ., DR ALEMAN Primary Care Unavailable RITA VALVERDE Admitting Unavailable KAEL DUVAL Consulting Unavailable PETROS WELLS Unavailable ZAINAB RICHARDS Consulting Unavailable HOY ., DR ALEMAN Attending Unavailable HOY ., DR ALEMAN Primary Care Unavailable HOY ., DR ALEMAN Consulting Unavailable CARLEEY ., DR ALEMAN Admitting Unavailable HOY ., DR ALEMAN Primary Care Unavailable OLEXA, ASA Attending Unavailable OLEXA, ASA Admitting Unavailable JEFF ., VAHID Consulting Unavailable JEFF ., VAHID Attending Unavailable HOY ., DR ALEAMN Primary Care Unavailable JEFF ., VAHID Admitting Unavailable KATIE SOTO Consulting Unavailable AMANDEEP ., DR ALEMAN Attending Unavailable CARLEEY ., DR ALEMAN Consulting Unavailable CARLEEY ., DR ALEMAN Primary Care Unavailable HOY ., DR ALEMAN Admitting Unavailable Hoy, Ash M Primary Care Unavailable Olexa, Asa Attending Unavailable Olexa, Asa Admitting Unavailable Olexa, Asa Admitting Unavailable Olexa, Asa Attending Unavailable Hoy, Ash M Primary Care Unavailable Olexa, Asa Admitting Unavailable Olexa, Asa Attending Unavailable Hoy, Ash M Primary Care Unavailable Hoy, Ash M Primary Care Unavailable Olexa, Asa Attending Unavailable Olexa, Asa Admitting Unavailable Hoy, Ash M Primary Care Unavailable Deangelo Kulkarni Admitting Unavailable Skyler Ro Consulting Unavailable Navarro Cota Attending UnavailJavan Borja Consulting Unavailable Olexa, Asa Admitting Unavailable Olexa, Asa Attending Unavailable Hoy, Ash M Primary Care Unavailable Vanessa Garcia Consulting Unavailable Hoy, Ash M Primary Care Unavailable Ryan Ibrahim Attending Unavailable Ryan Ibrahim Admitting Unavailable Azalea German Consulting Unavailable Rosemary Kay Consulting Unavailable Rafaela Vu Consulting Unavailable Ying Rivera Consulting Unavailable Aleida Tamez Consulting Unavailable MassMario rios Consulting Unavailable Tia, Michael K Consulting Unavailable Dials, Sarahi M Consulting Unavailable Aubrey Martinez Consulting Unavailable Richard Migueltaq Consulting Unavailable Navarro Cota Consulting UnavailJan Pulido Consulting Unavailable Angelina Riley Consulting Unavailable Nicolasa Hull Consulting Unavailable Conchita Weber Consulting Unavailable Kobe Morris Consulting Unavailable Rachel Persaud Consulting Unavailable Chandler Wynn Consulting Unavailable Zainab Story Consulting Unavailable Lauren Vicente Consulting Unavailable Zack Alonso Consulting Unavailable Keisha Posadas Consulting Unavailable Wilian Pearson Consulting Unavailab Kun Ray Consulting Unavailable Derrick Cash Consulting Unavailable Marlee Garces Unavailable Luca Lang Consulting Unavailable Ori Pardo Consulting Unavailable Denice Buckner Consulting Unavailable Eugenio Tirado Consulting Unavailable Deangelo Kulkarni Consulting Unavailable Mary Shoemaker Consulting Unavailable Milvia Palacio Consulting Unavailable Ash Bernstein Primary Care Unavailable Asa Napoles Attending Unavailable Asa Napoles Admitting Unavailable Allergies Allergy Classification Reported Allergen(s) Allergy Type Date of Onset Reaction(s) Facility (1 source) No Known Medication Allergies; 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: [No Known Medication Allergies] Propensity to adverse reactions (disorder) [facility] Rep[facility] Medications Current Medications Medication Drug Class(es) Dates Sig (Normalized) Sig (Original) acetaminophen 500 mg oral tablet (3 sources) Start: 03-26-2022 take 500 mg by mouth every four hours Acetaminophen Active 500 MG PO Q4H 180 March 26, 2022 1:00am amLODIPine 10 mg oral tablet (10 sources) Dihydropyridine Calcium Channel Cristine Start: 03-18-2022 End: 03-26-2022 take 1 tablet by mouth once daily amLODIPine 10 mg Tab 10 mg = 1 tab(s), Oral, Daily, Refills(s) 0 Start Date: 05/04/22 Status: Ordered atorvastatin 10 mg oral tablet (12 sources) HMG-CoA Reductase Inhibitor Start: 02-20-2022 End: 03-26-2022 take 1 tablet by mouth once daily atorvastatin 10 mg Tab 10 mg = 1 tab(s), Oral, Daily, Refills(s) 0 Start Date: 05/04/22 Status: Ordered citalopram 40 mg oral tablet (17 sources) Serotonin Reuptake Inhibitor Start: 05-04-2022 take 1 tablet by mouth once daily CeleXA 40 mg Tab 40 mg = 1 tab(s), Oral, Daily, Refills(s) 0 Start Date: 05/04/22 Status: Ordered Start: 02-20-2022 End: 03-26-2022 take 80 mg by mouth once daily in the morning Citalopram Active 80 MG PO Every morning 60 March 26, 2022 1:00am CeleXA Active diclofenac sodium 75 mg delayed release oral tablet (3 sources) Nonsteroidal Anti-inflammatory Drug Start: 05-04-2022 take 1 tablet by mouth twice daily diclofenac sodium 75 mg Oral EC Tab 75 mg = 1 tab(s), Oral, BID, Refills(s) 0 Start Date: 05/04/22 Status: Ordered ferrous sulfate (1 source) take 1 tablet by mouth twice daily Ferrous Sulfate 325 (65 Fe) MG TAKE 1 TABLET BY MOUTH TWICE A DAY Oral for 30 Days Active folic acid 1 mg oral tablet (10 sources) Start: 03-18-2022 End: 03-26-2022 take 1 tablet by mouth once daily folic acid 1 mg Tab 1 mg = 1 tab(s), Oral, Daily, Refills(s) 0 Start Date: 05/04/22 Status: Ordered furosemide 40 mg oral tablet (1 source) Loop Diuretic Furosemide 40 MG TAKE 1 TABLET BY MOUTH EVERY MORNING FOR 4 DAYS Oral for 4 Days Active gabapentin 600 mg oral tablet (17 sources) Anti-epileptic Agent Start: 02-20-2022 End: 03-26-2022 take 1 tablet by mouth twice daily gabapentin 600 mg Tab 600 mg = 1 tab(s), Oral, BID, Refills(s) 0 Start Date: 05/04/22 Status: Ordered Start: 02-20-2022 take 1200 mg by mout h twice daily Gabapentin Active 1200 MG PO Twice daily February 20, 2022 12:00am Gabapentin Activ e glyBURIDE 2.5 mg oral tablet (3 sources) Sulfonylurea Start: 03-27-2022 take 2.5 mg by mouth twice daily Glyburide Active 2.5 MG PO Twice daily 60 March 27, 2022 1:00am irbesartan 300 mg oral tablet (12 sources) Angiotensin 2 Receptor Cristine Start: 02-20-2022 End: 03-26-2022 take 1 tablet by mouth once daily irbesartan 300 mg Tab 300 mg = 1 tab(s), Oral, Daily, Refills(s) 0 Start Date: 05/04/22 Status: Ordered lansoprazole 30 mg delayed release oral capsule (6 sources) Proton Pump Inhibitor Start: 05-04-2022 take 1 capsule by mouth once daily lansoprazole 30 mg Cap-DR 30 mg = 1 cap(s), Oral, Daily, Refills(s) 0 Start Date: 05/04/22 Status: Ordered Start: 03-26-2022 take 30 mg by mouth once daily Lansoprazole Active 30 MG PO Daily 30 March 26, 2022 1:00am liothyronine sodium 0.005 mg oral tablet (11 sources) l-Triiodothyronine Start: 05-04-2022 take 2 tablets by mouth once daily liothyronine 5 mcg Tab 10 mcg = 2 tab(s), Oral, Daily, Refills(s) 0 Start Date: 05/04/22 Status: Ordered Start: 03-26-2022 take 1 tablet by minda once daily Liothyronine (Cytomel) 5 mcg Tablet Active 10 MCG PO Daily 60 March 26, 2022 1:00am Start: 02-20-2022 End: 03-26-2022 take 10 ug by mouth once daily Liothyronine Discontinu ed 10 MCG PO Daily February 20, 2022 1:00am March 26, 2022 8:29pm loratadine 10 mg oral tablet (4 sources) Start: 03-26-2022 take 10 mg by mouth once daily Loratadine Active 10 MG PO Daily March 26, 2022 1:00am Losartan (6 sources) Angiotensin 2 Receptor Cristine Losartan Potassium Active magnesium oxide 400 mg oral tablet (10 sources) Start: 05-04-2022 take 1 tablet by mouth once daily magnesium oxide 400 mg Tab 400 mg = 1 tab(s), Oral, Daily, Refills(s) 0 Start Date: 05/04/22 Status: Ordered Start: 03-18-2022 End: 03-26-2022 take 400 mg by mouth twice daily Magnesium Oxide Activ e 400 MG PO Twice daily 60 March 26, 2022 1:00am take 2 tablets by mo [facility] three times daily Magnesium Oxide 400 MG TAKE 2 TABLETS BY MOUTH 3 TIMES A DAY Oral for 30 Days Active metFORMIN hydrochloride 850 mg oral tablet (20 sources) Biguanide Start: 03-26-2022 take 1 tablet by mouth twice daily metformin 850 mg Tab 850 mg = 1 tab(s), Oral, BID, Refills(s) 0 Start Date: 05/04/22 Status: Ordered Start: 03-08-2022 End: 03-26-2022 take 850 mg by mouth three times daily Metformin Discontinued 850 MG PO Three times daily March 08, 2022 1:00am March 26, 2022 8:29pm Start: 02-20-2022 End: 03-08-2022 take 750 mg by mouth three times daily Metformin Discontinued 750 MG PO Three times daily February 20, 2022 1:00am March 08, 2022 7:19pm metFORMIN HCl Ac tive Omeprazole (6 sources) Proton Pump Inhibitor PriLOSEC A ctive pioglitazone 45 mg oral tablet (12 sources) Peroxisome Proliferator Receptor alpha Agonist, Peroxisome Proliferator Receptor gamma Agonist, Thiazolidinedione Start: End: take 1 tablet by mouth once daily pioglitazone 45 mg Tab 45 mg = 1 tab(s), Oral, Daily, Refills(s) 0 Start Date: 05/04/22 Status: Ordered QUEtiapine 100 mg oral tablet (17 sources) Atypical Antipsychotic Start: End: take 1 tablet by mouth at bedtime quetiapine 100 mg Tab 100 mg = 1 tab(s), Oral, Bedtime, Refills(s) 0 Start Date: 05/04/22 Status: Ordered SEROquel Active Sodium Chloride (11 sources) Start: 05-04-2022 take 3 tablets by mo uth three times daily Sodium Chloride 1 g oral tablet = 3 tab(s), Oral, TID, Refills(s) 0 Start Date: 05/04/22 Status: Ordered Start: 03-26-2022 take 1 g by mouth th ree times daily Sodium Chloride Active 1 GM PO Three times daily March 26, 2022 1:00am Start: 03-06-2022 End: 03-26-2022 take 1000 mg by mouth three times daily Sodium Chloride Discontinued 1000 MG PO Three times daily March 06, 2022 1:00am March 26, 2022 8:29pm Start: 03-06-2022 take 3000 mg by mout h three times daily Sodium Chloride Active 3000 MG PO Three times daily March 06, 2022 12:00am thiamine 100 mg oral tablet (7 sources) Start: 03-18-2022 End: 03-26-2022 take 100 mg by mouth once daily Thiamine Hcl (Vitamin B1) Active 100 MG PO Daily March 26, 2022 1:00am Completed/Discontinued Medications Medication Drug Class(es) Dates Sig (Normalized) Sig (Original) acetaminophen 325 mg / oxyCODONE hydrochloride 5 mg oral tablet (16 sources) Opioid Agonist Start: 02-20-2022 End: 03-26-2022 take 1 tablet by mouth every four hours Oxycodone-Acetamin ophen (Percocet) 5-325 mg Tablet Discontinued 1 TAB PO Q4H 20 March 07, 2022 March 26, 2022 8:29pm aspirin 81 mg oral tablet (10 sources) Platelet Aggregation Inhibitor, Nonsteroidal Anti-inflammatory Drug Start: 03-11-2022 End: 03-19-2022 take 81 mg by mouth once daily Aspirin Discontinued 81 MG PO Daily March 11, 2022 1:00am March 19, 2022 3:37pm Start: 02-20-2022 End: 03-08-2022 take 81 mg by mouth once daily Aspirin Discontinued 81 MG PO Daily February 20, 2022 1:00am March 08, 2022 7:20pm cephalexin 500 mg oral capsule (16 sources) Cephalosporin Antibacterial Start: 02-20-2022 End: 03-19-2022 take 500 mg by mouth every eight hours Cephalexin Discontinued 500 MG PO Q8H March 07, 2022 1:00am March 19, 2022 3:37pm cetirizine hydrochloride 10 mg oral tablet (5 sources) Histamine-1 Receptor Antagonist Start: 03-08-2022 End: 03-26-2022 take 1 tablet by mouth once daily Cetirizine (Zyrtec) 10 mg Tablet Discontinued 10 MG PO Daily March 08, 2022 1:00am March 26, 2022 8:29pm cyclobenzaprine hydrochloride 10 mg oral tablet (6 sources) Muscle Relaxant Start: 02-20-2022 End: 03-26-2022 take 10 mg by mouth three times daily Cyclobenzaprine Discontinued 10 MG PO Three times daily February 20, 2022 1:00am March 26, 2022 8:29pm hydroCHLOROthiazide 12.5 mg oral tablet (6 sources) Thiazide Diuretic Start: 02-20-2022 End: 03-26-2022 take 12.5 mg by mouth once daily Hydrochlorothiazide Discontinued 12.5 MG PO Daily February 20, 2022 1:00am March 26, 2022 8:29pm ibuprofen 800 mg oral tablet (11 sources) Nonsteroidal Anti-inflammatory Drug Start: 02-20-2022 End: 03-11-2022 take 800 mg by mouth every six hours Ibuprofen Discontinued 800 MG PO Q6H March 08, 2022 1:00am March 11, 2022 10:30am melatonin 5 mg oral tablet (4 sources) Start: 03-18-2022 End: 03-26-2022 take 5 mg by mouth once daily at bedtime Melatonin Discontinued 5 MG PO Daily at bedtime 0 March 18, 2022 1:00am March 26, 2022 8:29pm 24 hr nicotine 0.875 mg/hr transdermal system (4 sources) Cholinergic Nicotinic Agonist Start: 03-18-2022 End: 03-26-2022 Nicotine Discontinued 1 EACH TRANSDERML Daily 0 March 18, 2022 1:00am March 26, 2022 8:29pm ondansetron 4 mg disintegrating oral tablet (7 sources) Serotonin-3 Receptor Antagonist Start: 03-07-2022 End: 03-26-2022 take 4 mg by mouth every six hours Ondansetron Discontinued 4 MG PO Q6H March 07, 2022 1:00am March 26, 2022 8:29pm take 1 tablet by minda th four times daily as needed Ondansetron HCl 4 MG TAKE 1 TABLET BY MO [facility] FOUR TIMES A DAY NEEDED Oral for 5 Days Active pantoprazole 40 mg delayed release oral tablet (4 sources) Proton Pump Inhibitor Start: 03-18-2022 End: 03-26-2022 take 40 mg by mouth twice daily Pantoprazole Discontinued 40 MG PO Twice daily 28 March 18, 2022 1:00am March 26, 2022 8:29pm microencapsulated potassium chloride 20 meq extended release oral tablet (5 sources) Start: 03-08-2022 End: 03-19-2022 Potassium Chloride (Klor-Con M20) 20 mEq tablet,ER particles/crystals Discontinued 20 MEQ PO Four times daily March 08, 2022 1:00am March 19, 2022 3:37pm Problems Active Problems Problem Classification Problem Date Documented Da te Episodic/Chronic Allergic reactions (3 sources) Eczema; 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: [Dermatitis, unspecified] Onset: 3 05-04-2022 Episodic Anxiety disorders (3 sources) Anxiety; 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: [Anxiety disorder, unspecified] Onset: 3 05-04-2022 Chronic Congestive heart failure; nonhypertensive (1 source) Unspecified diastolic (congestive) heart failure; 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: [UNSPECIFIED DIASTOLIC HEART FAILURE] Onset: 3 Chronic Deficiency and other anemia (4 sources) Anemia; 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: [Anemia, unspecified] 03-19-2022 Episodic Deficiency and other anemia (4 sources) Iron deficiency anemia; 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: [Iron deficiency anemia, unspecified] Onset: 3 Episodic Deficiency and other anemia (5 sources) Iron deficiency anemia, unspecified; 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: [IRON DEFICIENCY ANEMIA UNSPECIFIED] Onset: 3 Episodic Diabetes mellitus without complication (3 sources) Diabetes mellitus; 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: [Type 2 diabetes mellitus without complications] Onset: 3 05-04-2022 Chronic Diabetes mellitus without complication (1 source) Other abnormal glucose; 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: [OTHER ABNORMAL GLUCOSE] Onset: 3 Episodic Disorders of lipid metabolism (1 source) Hyperlipidemia, unspecified; 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: [HYPERLIPIDEMIA UNSPECIFIED] Onset: 3 Chronic Essential hypertension (3 sources) Hypertensive disorder; 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: [Essential (primary) hypertension] Onset: 3 05-04-2022 Chronic Fracture of upper limb (9 sources) Unspecified fracture of upper end of left humerus, initial encounter for closed fracture; 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: [Unspecified displaced fracture of surgical neck of left humerus, initial encounter for closed fracture] Onset: 2 Episodic Hypertension with complications and secondary hypertension (1 source) Hypertensive heart disease with heart failure; 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: [HTN HEART DISEASE W/HEART FAIL] Onset: 3 Chronic Mood disorders (2 sources) Depressive disorder 05-04-2022 Chronic Mood disorders (1 source) Mood disorders; 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: [DEPRESSION UNSPECIFIED] Onset: 3 Nutritional deficiencies (1 source) Iron deficiency; 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: [IRON DEFICIENCY] Onset: 3 Episodic Osteoporosis (3 sources) Osteoporosis; 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: [Age-related osteoporosis without current pathological fracture] Onset: 3 05-04-2022 Chronic Other aftercare (1 source) Other roasterman (current) drug therapy; 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: [OTH 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 DRUG THERAPY] Onset: 3 Episodic Other aftercare (1 source) alf (current) use of oral hypoglycemic drugs; 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: [REGISTRATION REPRESENTATIVE USE ORAL 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 DX] Onset: 3 Episodic Other and ill-defined cerebrovascular disease (4 sources) Posterior reversible encephalopathy syndrome; 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: [Posterior reversible encephalopathy syndrome] 03-16-2022 Chronic Other and ill-defined cerebrovascular disease (6 sources) Posterior reversible encephalopathy syndrome; 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: [Other encephalopathy] Onset: 2 03-19-2022 Chronic Other and unspecified benign neoplasm (1 source) Polyp of colon; 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: [Polyp of colon] Onset: 3 Episodic Other and unspecified benign neoplasm (1 source) Polyp of colon; 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: [POLYP OF COLON] Onset: 3 Episodic Other connective tissue disease (6 sources) History of reverse prosthetic total arthroplasty of left shoulder; 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: [Presence of left artificial shoulder joint] Chronic Other connective tissue disease (4 sources) Presence of left artificial shoulder joint; 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: [PRESENCE LT ARTIFICIAL SHOULDER JNT] Onset: 3 Chronic Other connective tissue disease (1 source) Presence of unspecified artificial shoulder joint; 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: [Presence of unspecified artificial shoulder joint] Onset: 2 Chronic Other connective tissue disease (4 sources) Pain in right foot; 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: [PAIN IN RIGHT FOOT] Onset: 3 Episodic Other ear and sense organ disorders (2 sources) Hearing loss 05-04-2022 Chronic Other ear and sense organ disorders (1 source) Unspecified hearing loss, unspecified ear; 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: [UNS HEARING LOSS UNSPECIFIED EAR] Onset: 3 Chronic Other gastrointestinal disorders (2 sources) Irritable bowel syndrome 05-04-2022 Chronic Other gastrointestinal disorders (1 source) Irritable bowel syndrome without diarrhea; 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: [IRRITABLE BOWEL SYND W/O DIARRHEA] Onset: 3 Chronic Other gastrointestinal disorders (1 source) Hyperplastic polyp of intestine 06-15-2022 Episodic Other nervous system disorders (5 sources) Metabolic encephalopathy; 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: [Metabolic encephalopathy] 03-08-2022 Chronic Other nervous system disorders (7 sources) Metabolic encephalopathy; 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: [Metabolic encephalopathy] Onset: 2 03-08-2022 Chronic Other nervous system disorders (2 sources) Dysarthria 05-04-2022 Episodic Other non-traumatic joint disorders (1 source) Pain in left wrist; 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: [PAIN IN LEFT WRIST] Onset: 3 Episodic Other nutritional; endocrine; and metabolic disorders (8 sources) Hypomagnesemia; 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: [Hypomagnesemia] Onset: 3 03-08-2022 Chronic Other nutritional; endocrine; and metabolic disorders (11 sources) Hypomagnesemia; 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: [Disorders of magnesium metabolism] Onset: 2 03-08-2022 Chronic Other nutritional; endocrine; and metabolic disorders (2 sources) Body mass index 30+ - obesity 05-09-2022 Chronic Other nutritional; endocrine; and metabolic disorders (2 sources) Obesity 05-04-2022 Chronic Other nutritional; endocrine; and metabolic disorders (1 source) Obesity, unspecified; 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: [OBESITY UNSPECIFIED] Onset: 3 Chronic Other nutritional; endocrine; and metabolic disorders (1 source) Body mass index (BMI) 33.0-33.9, adult; 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: [BODY MASS INDEX BMI 33.0-33.9 ADULT] Onset: 3 Chronic Other screening for suspected conditions (not mental disorders or infectious disease) (9 sources) Electrocardiogram abnormal; 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: [Abnormal electrocardiogram [ECG] [EKG]] 03-08-2022 Episodic Residual codes; unclassified (5 sources) Altered mental status; 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: [Altered mental status, unspecified] 03-08-2022 Episodic Screening and history of mental health and substance abuse codes (1 source) Personal history of nicotine dependence; 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: [PERSONAL HISTORY OF NICOTINE DEPEND] Onset: 3 Episodic Spondylosis; intervertebral disc disorders; other back problems (2 sources) Lumbosacral stenosis 05-04-2022 Episodic Substance-related disorders (5 sources) Nicotine dependence, cigarettes, uncomplicated; 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: [Cannabis abuse, uncomplicated] Onset: 2 Chronic Thyroid disorders (1 source) Hypothyroidism, unspecified; 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: [HYPOTHYROIDISM UNSPECIFIED] Onset: 2 Chronic Unclassified (1 source) CONTACT W/AND (SUSP) EXPOS COVID-19; 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: [CONTACT W/AND (SUSP) EXPOS COVID-19] Onset: 2 Unclassified (1 source) Unspecified displaced fracture of surgical neck of left humerus, initial encounter for closed fracture; 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: [Unspecified displaced fracture of surgical neck of left humerus, initial encounter for closed fracture] Onset: 3 Unclassified (1 source) Posterior reversible encephalopathy syndrome; 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: [Posterior reversible encephalopathy syndrome] Onset: 2 Unclassified (1 source) 4-part fracture of surgical neck of left humerus, initial encounter for closed fracture; 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: [4-part fracture of surgical neck of left humerus, initial encounter for closed fracture] Onset: 2 Unclassified (1 source) Encounter for preprocedural laboratory examination; 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: [Encounter for preprocedural laboratory examination] Onset: 2 Urinary tract infections (1 source) Urinary tract infection, site not specified; 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: [UTI SITE NOT SPECIFIED] Onset: 3 Episodic Past or Other Problems Problem Classification Problem Date Documented Da te Episodic/Chronic Administrative/social admission (7 sources) Other reduced mobility; 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: [Impaired mobility and activities of daily living] Onset: 03-19-2022 03-19-2022 Episodic Deficiency and other anemia (8 sources) Anemia, unspecified; 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: [Anemia, unspecified] Onset: 03-19-2022 03-27-2022 Episodic E Codes: Fall (2 sources) Unspecified fall, initial encounter; 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: [Fall on same level from slipping, tripping and stumbling with subsequent striking against unspecified object, initial encounter] Onset: 02-19-2022 Episodic Fluid and electrolyte disorders (20 sources) Hyponatremia; 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: [Hypo-osmolality and hyponatremia] Onset: 03-08-2022 03-08-2022 Episodic Gastritis and duodenitis (11 sources) Duodenitis; 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: [Duodenitis without bleeding] Onset: 03-08-2022 03-12-2022 Episodic Immunizations and screening for infectious disease (1 source) Encounter for immunization; 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: [ENCOUNTER FOR IMMUNIZATION] Onset: 03-08-2022 Episodic Other aftercare (1 source) 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; 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: [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 USE OF ASPIRIN] Onset: 03-08-2022 Episodic Other injuries and conditions due to external causes (1 source) History of falling; 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: [HISTORY OF FALLING] Onset: 01-15-2022 Episodic Other non-traumatic joint disorders (3 sources) Pain in left shoulder; 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: [PAIN IN LEFT SHOULDER] Onset: 02-17-2022 Episodic Residual codes; unclassified (5 sources) Altered mental status, unspecified; 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: [Altered mental status] Onset: 03-08-2022 03-08-2022 Episodic Residual codes; unclassified (1 source) Other specified health status; 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: [Other specified health status] Onset: 03-19-2022 Episodic Results Test Name Value Interpretation Reference Range Facility CBC AUTO DIFFon 07-04-2022 BASO # 0.0 103/ul Normal 0.0-0.1 [facility] Comment on above: Performed By: #### C BC #### [facility] [address] [place] [address] Dr. Jordan Blackwell Basophils/100 WBC (Bld) 0.5 % Normal 0.2-2.0 [facility] Comment on above: Performed By: #### C BC #### [facility] [address] [place] [address] Dr. Jordan Blackwell EO # 0.1 103/ul Normal 0.0-0.7 [facility] Comment on above: Performed By: #### C BC #### [facility] [address] [place] [address] Dr. Jordan Blackwell Eosinophils/100 WBC (Bld) 1.4 % Normal 0.9-7.0 [facility] Comment on above: Performed By: #### C BC #### [facility] [address] [place] [address] Dr. Jordan Blackwell Erythrocyte distribution width (RBC) [Ratio] 14.6 % Normal 11.0-15.0 [facility] Comment on above: Performed By: #### C BC #### [facility] [address] [place] [address] Dr. Jordan Blackwell Hematocrit (Bld) [Volume fraction] 34.7 % Critically low 36.0-48.0 [facility] Comment on above: Performed By: #### C BC #### [facility] [address] [place] [address] Dr. Jordan Blackwell Hemoglobin (Bld) [Mass/Vol] 11.1 g/dL Critically low 12.0-16.0 [facility] Comment on above: Performed By: #### C BC #### [facility] [address] [place] [address] Dr. Jordan Blackwell IG # 0.03 10e3/ul Normal 0.00-0.03 [facility] Comment on above: Performed By: #### C BC #### [facility] [address] [place] [address] Dr. Jordan Blackwell IG % 0.4 % Normal 0.0-0.5 [facility] Comment on above: Performed By: #### C BC #### [facility] [address] [place] [address] Dr. Jordan Blackwell LYMPH # 2.2 103/ul Normal 1.2-3.8 [facility] Comment on above: Performed By: #### C BC #### [facility] [address] [place] [address] Dr. Jordan Blackwell Lymphocytes/100 WBC (Bld) 28.0 % Normal 20.5-60.0 [facility] Comment on above: Performed By: #### C BC #### [facility] [address] [place] [address] Dr. Jordan Blackwell MANUAL DIFF REQ NO Normal [facility] Comment on above: Performed By: #### C BC #### [facility] [address] [place] [address] Dr. Jordan Blackwell MCH (RBC) [Entitic mass] 28.8 pg Normal 26.7-34.0 [facility] Comment on above: Performed By: #### C BC #### [facility] [address] [place] [address] Dr. Jordan Blackwell MCHC (RBC) [Mass/Vol] 32.0 g/dL Normal 29.9-35.2 [facility] Comment on above: Performed By: #### C BC #### [facility] [address] [place] [address] Dr. Jordan Blackwell MCV (RBC) [Entitic vol] 90.1 fL Normal 81.0-99.0 [facility] Comment on above: Performed By: #### C BC #### [facility] [address] [place] [address] Dr. Jordan Blackwell MONO # 0.6 103/ul Normal 0.3-0.8 [facility] Comment on above: Performed By: #### C BC #### [facility] [address] [place] [address] Dr. Jordan Blackwell Monocytes/100 WBC (Bld) 7.7 % Normal 1.7-12.0 [facility] Comment on above: Performed By: #### C BC #### [facility] [address] [place] [address] Dr. Jordan Blackwell NEUT # 4.9 103/ul Normal 1.4-6.5 [facility] Comment on above: Performed By: #### C BC #### [facility] [address] [place] [address] Dr. Jordan Blackwell Neutrophils/100 WBC (Bld) 62.0 % Normal 43.0-75.0 [facility] Comment on above: Performed By: #### C BC #### [facility] [address] [place] [address] Dr. Jordan Blackwell Platelet mean volume (Bld) [Entitic vol] 10.2 fL Normal 9.5-13.5 [facility] Comment on above: Performed By: #### C BC #### [facility] [address] [place] [address] Dr. Jordan Blackwell PLT 216 103/ul Normal 150-450 [facility] Comment on above: Performed By: #### C BC #### [facility] [address] [place] [address] Dr. Jordan Blackwell RBC 3.85 106/ul Critically low 4.20-5.40 [facility] Comment on above: Performed By: #### C BC #### [facility] [address] [place] [address] Dr. Jordan Blackwell WBC 7.8 103/ul Normal 4.0-11.0 [facility] Comment on above: Performed By: #### C BC #### [facility] [address] [place] [address] Dr. Jordan Blackwell IRONon 07-04-2022 Iron [Mass/Vol] 36.0 ug/dL Critically low 50.0-170.0 [facility] Comment on above: Performed By: #### U RCX #### [facility] [address] [place] [address] Dr. Jordan Blackwell MAGNESIUMon 07-04-2022 Magnesium [Mass/Vol] 1.5 mg/dL Critically low 1.8-2.4 [facility] Comment on above: Performed By: #### C BC #### [facility] [address] [place] [address] Dr. Jodran Blackwell PROF 14(COMP METB)on 023 Albumin [Mass/Vol] 3.5 g/dL Normal 3.4-5.0 [facility] Comment on above: Performed By: #### C BC #### [facility] [address] [place] [address] Dr. Jordan Blackwell Albumin/Globulin [Mass ratio] 1.0 {ratio} Normal [facility] Comment on above: Performed By: #### C BC #### [facility] [address] [place] [address] Dr. Jordan Blackwell ALP [Catalytic activity/Vol] 137 U/L Critically high 46-116 [facility] Comment on above: Performed By: #### C BC #### [facility] [address] [place] [address] Dr. Jordan Blackwell ALT [Catalytic activity/Vol] 58 U/L Normal 14-59 [facility] Comment on above: Performed By: #### C BC #### [facility] [address] [place] [address] Dr. Jordan Blackwell Anion gap [Moles/Vol] 12.7 mmol/L Normal [facility] Comment on above: Performed By: #### C BC #### [facility] [address] [place] [address] Dr. Jordan Blackwell AST [Catalytic activity/Vol] 53 U/L Critically high 15-37 [facility] Comment on above: Performed By: #### C BC #### [facility] [address] [place] [address] Dr. Jordan Blackwell Bilirubin [Mass/Vol] 0.2 mg/dL Normal 0.2-1.0 [facility] Comment on above: Performed By: #### C BC #### [facility] [address] [address] [address] Jordan Blackwell Calcium [Mass/Vol] 8.9 mg/dL Normal 8.5-10.1 [facility] Comment on above: Performed By: #### C BC #### [facility] [address] [place] [address] Dr. Jordan Blackwell Chloride [Moles/Vol] 101 mmol/L Normal 98-107 [facility] Comment on above: Performed By: #### C BC #### [facility] [address] [place] [address] Dr. Jordan Blackwell CO2 [Moles/Vol] 29.3 mmol/L Normal 21.0-32.0 [facility] Comment on above: Performed By: #### C BC #### [facility] [address] [place] [address] Dr. Jordan Blackwell Creatinine [Mass/Vol] 0.91 mg/dL Normal 0.55-1.02 [facility] Comment on above: Performed By: #### C BC #### [facility] [address] [place] [address] Dr. Jordan Blackwell EGFR-AF FRENCH >60 Normal >=60 [facility] Comment on above: Performed By: #### C BC #### [facility] [address] [place] [address] Dr. Jordan Blackwell EGFR-NON AF FRENCH >60 Normal >=60 [facility] Comment on above: Performed By: #### C BC #### [facility] [address] [place] [address] Dr. Jordan Blackwell Globulin (S) [Mass/Vol] 3.5 g/dL Normal [facility] Comment on above: Performed By: #### C BC #### [facility] [address] [address] [address] Jordan Blackwell Glucose [Mass/Vol] 134 mg/dL Critically high 74-106 [facility] Comment on above: Performed By: #### C BC #### [facility] [address] [address] [address] Jrodan Blackwell Potassium [Moles/Vol] 5.0 mmol/L Normal 3.5-5.1 [facility] Comment on above: Performed By: #### C BC #### [facility] [address] [address] [address] Jordan Blackwell Protein [Mass/Vol] 7.0 g/dL Normal 6.4-8.2 [facility] Comment on above: Performed By: #### C BC #### [facility] [address] [place] [address] Dr. Jordan Blackwell Sodium [Moles/Vol] 138 mmol/L Normal 136-145 [facility] Comment on above: Performed By: #### C BC #### [facility] [address] [place] [address] Dr. Jordan Blackwell Urea nitrogen [Mass/Vol] 11.0 mg/dL Normal 7.0-18.0 [facility] Comment on above: Performed By: #### C BC #### [facility] [address] [place] [address] Dr. Jordan Blackwell Urea nitrogen/Creatinine [Mass ratio] 12.1 mg/mg Normal [facility] Comment on above: Performed By: #### C BC #### [facility] [address] [address] [address] Jordan Blackwell INSULINon 07-02-2022 Insulin 5.3 uIU/mL Normal 2.6-24.9 [facility] Comment on above: Performed By: #### C BC #### [facility] [address] [place] [address] Dr. Jordan Blackwell CBC AUTO DIFFon 06-30-2022 BASO # 0.0 103/ul Normal 0.0-0.1 [facility] Comment on above: Performed By: #### P RBC #### [facility] [address] [address] [address] Jordan Blackwell Basophils/100 WBC (Bld) 0.4 % Normal 0.2-2.0 [facility] Comment on above: Performed By: #### P RBC #### [facility] [address] [address] [address] Jordan Blackwell EO # 0.1 103/ul Normal 0.0-0.7 [facility] Comment on above: Performed By: #### P RBC #### [facility] [address] [address] [address] Jordan Blackwell Eosinophils/100 WBC (Bld) 2.0 % Normal 0.9-7.0 [facility] Comment on above: Performed By: #### P RBC #### [facility] [address] [place] [address] Dr. Jordan Blackwell Erythrocyte distribution width (RBC) [Ratio] 14.4 % Normal 11.0-15.0 [facility] Comment on above: Performed By: #### P RBC #### [facility] [address] [address] [address] Jordan Blackwell Hematocrit (Bld) [Volume fraction] 36.3 % Normal 36.0-48.0 [facility] Comment on above: Performed By: #### P RBC #### [facility] [address] [place] [address] Dr. Jordan Blackwell Hemoglobin (Bld) [Mass/Vol] 11.4 g/dL Critically low 12.0-16.0 [facility] Comment on above: Performed By: #### P RBC #### [facility] [address] [address] [address] Jordan Blackwell IG # 0.03 10e3/ul Normal 0.00-0.03 [facility] Comment on above: Performed By: #### P RBC #### [facility] [address] [address] [address] Jordan Blackwell IG % 0.4 % Normal 0.0-0.5 [facility] Comment on above: Performed By: #### P RBC #### [facility] [address] [place] [address] Dr. Jordan Blackwell LYMPH # 2.1 103/ul Normal 1.2-3.8 [facility] Comment on above: Performed By: #### P RBC #### [facility] [address] [place] [address] Dr. Jordan Blackwell Lymphocytes/100 WBC (Bld) 29.6 % Normal 20.5-60.0 [facility] Comment on above: Performed By: #### P RBC #### [facility] [address] [place] [address] Dr. Jordan Blackwell MANUAL DIFF REQ NO Normal [facility] Comment on above: Performed By: #### P RBC #### [facility] [address] [place] [address] Dr. Jordan Blackwell MCH (RBC) [Entitic mass] 28.1 pg Normal 26.7-34.0 [facility] Comment on above: Performed By: #### P RBC #### [facility] [address] [place] [address] Dr. Jordan Blackwell MCHC (RBC) [Mass/Vol] 31.4 g/dL Normal 29.9-35.2 [facility] Comment on above: Performed By: #### P RBC #### [facility] [address] [place] [address] Dr. Jordan Blackwell MCV (RBC) [Entitic vol] 89.4 fL Normal 81.0-99.0 [facility] Comment on above: Performed By: #### P RBC #### [facility] [address] [place] [address] Dr. Jordan Blackwell MONO # 0.5 103/ul Normal 0.3-0.8 [facility] Comment on above: Performed By: #### P RBC #### [facility] [address] [place] [address] Dr. Jordan Blackwell Monocytes/100 WBC (Bld) 7.5 % Normal 1.7-12.0 [facility] Comment on above: Performed By: #### P RBC #### [facility] [address] [place] [address] Dr. Jordan Blackwell NEUT # 4.2 103/ul Normal 1.4-6.5 [facility] Comment on above: Performed By: #### P RBC #### [facility] [address] [place] [address] Dr. Jordan Blackwell Neutrophils/100 WBC (Bld) 60.1 % Normal 43.0-75.0 [facility] Comment on above: Performed By: #### P RBC #### [facility] [address] [place] [address] Dr. Jordan Blackwell Platelet mean volume (Bld) [Entitic vol] 10.6 fL Normal 9.5-13.5 [facility] Comment on above: Performed By: #### P RBC #### [facility] [address] [place] [address] Dr. Jordan Blackwell PLT 253 103/ul Normal 150-450 [facility] Comment on above: Performed By: #### P RBC #### [facility] [address] [place] [address] Dr. Jordan Blackwell RBC 4.06 106/ul Critically low 4.20-5.40 [facility] Comment on above: Performed By: #### P RBC #### [facility] [address] [place] [address] Dr. Jordan Blackwell WBC 7.0 103/ul Normal 4.0-11.0 [facility] Comment on above: Performed By: #### P RBC #### [facility] [address] [place] [address] Dr. Jordan Blackwell FERRITINon 06-30-2022 Ferritin [Mass/Vol] 27.0 ng/mL Normal 8.0-252.0 [facility] Comment on above: Performed By: #### U RCX #### [facility] [address] [place] [address] Dr. Jordan Blackwell FOLATEon 06-30-2022 FOLATE 28.70 ng/mL Normal 8.60-58.90 [facility] Comment on above: Performed By: #### U RCX #### [facility] [address] [address] [address] Jordan Blackwell FREE THYROXINE INDEX T7on FTI 2.31 Normal 1.30-4.50 [facility] Comment on above: Performed By: #### B MP #### [facility] [address] [address] [address] Jordan Blackwell T3U 34.0 % Normal 30.0-39.0 [facility] Comment on above: Performed By: #### B MP #### [facility] [address] [address] [address] Jordan Blackwell T4 [Mass/Vol] 6.80 ug/dL Normal 4.80-13.90 [facility] Comment on above: Performed By: #### B MP #### [facility] [address] [place] [address] Dr. Jordan Blackwell GLYCOHEMOGLOBIN A1Con 2022 ADA RECOMMENDATION SEE BELOW Normal [facility] Comment on above: Result Comment: ADA RECOMMENDED LIMIT 4.0 - 6.0 ADA THERAPEUTIC TARGET < 7.0 ACTION SUGGESTED > 7.0 Performed By: #### C BC #### [facility] [address] [place] [address] Dr. Jordan Blackwell Glucose [Mass/Vol] 105 mg/dL Normal [facility] Comment on above: Performed By: #### C BC #### [facility] [address] [place] [address] Dr. Jordan Blackwell HbA1c (Bld) [Mass fraction] 5.3 % Normal 4.5-6.2 [facility] Comment on above: Performed By: #### C BC #### [facility] [address] [address] [address] Jordan Blackwell IRONon 06-30-2022 Iron [Mass/Vol] 33.0 ug/dL Critically low 50.0-170.0 [facility] Comment on above: Performed By: #### U RCX #### [facility] [address] [place] [address] Dr. Jordan Blackwell LIPID PROFILEon 06-30-2022 CHOL-HDL RATIO NORM SEE BELOW Normal [facility] Comment on above: Result Comment: 3.3 - 4.4 LOW RISK 4.4 - 7.1 AVERAGE RISK 7.1 - 11.0 MODERATE RISK >11.0 HIGH RISK Performed By: #### B MP #### [facility] [address] [address] [address] Jordan Blackwell Cholesterol [Mass/Vol] 148 mg/dL Normal <=200 [facility] Comment on above: Performed By: #### B MP #### [facility] [address] [address] [address] Jordan Blackwell Cholesterol in HDL [Mass/Vol] 62 mg/dL Critically high 40-60 [facility] Comment on above: Performed By: #### B MP #### [facility] [address] [address] [address] Jordan Blackwell Cholesterol in LDL [Mass/Vol] 70.8 mg/dL Normal [facility] Comment on above: Performed By: #### B MP #### [facility] [address] [address] [address] Jordan Blackwell Cholesterol.total/Clau sterol in HDL [Mass ratio] 2.4 {ratio} Normal [facility] Comment on above: Performed By: #### B MP #### [facility] [address] [place] [address] Dr. Jordan Blackwell HDL NORMAL > or = 60 mg/dl - LO W CARDIOVASCULAR RISK <40 mg/dl - HIGH CARDIOVASCULAR RISK Normal [facility] Comment on above: Performed By: #### B MP #### [facility] [address] [address] [address] Jordan Blackwell LDL CALC NORMAL SEE BELOW Normal [facility] Comment on above: Result Comment: <100 mg/dl OPTIMAL 100 - 129 mg/dl NEAR OR ABOVE OPTIMAL 130 - 159 mg/dl BORDERLINE HIGH 160 - 189 mg/dl HIGH >190 mg/dl VERY HIGH Performed By: #### B MP #### [facility] [address] [address] [address] Jordan Blackwell Triglyceride [Mass/Vol] 76 mg/dL Normal <=150 T [facility] Comment on above: Performed By: #### B MP #### [facility] [address] [place] [address] Dr. Jordan Blackwell VLDL CALC 15.2 mg/dL Normal [facility] Comment on above: Performed By: #### B MP #### [facility] [address] [place] [address] Dr. Jordan Blackwell MAGNESIUMon 06-30-2022 Magnesium [Mass/Vol] 0.9 mg/dL Critically low 1.8-2.4 [facility] Comment on above: Performed By: #### B MP #### [facility] [address] [place] [address] Dr. Jordan Blackwell PROF 14(COMP METB)on 023 Albumin [Mass/Vol] 3.6 g/dL Normal 3.4-5.0 [facility] Comment on above: Performed By: #### C BC #### [facility] [address] [place] [address] Dr. Jordan Blackwell Albumin/Globulin [Mass ratio] 1.0 {ratio} Normal [facility] Comment on above: Performed By: #### C BC #### [facility] [address] [place] [address] Dr. Jordan Blackwell ALP [Catalytic activity/Vol] 132 U/L Critically high 46-116 [facility] Comment on above: Performed By: #### C BC #### [facility] [address] [place] [address] Dr. Jordan Blackwell ALT [Catalytic activity/Vol] 21 U/L Normal 14-59 [facility] Comment on above: Performed By: #### C BC #### [facility] [address] [place] [address] Dr. Jordan Blackwell Anion gap [Moles/Vol] 9.1 mmol/L Normal [facility] Comment on above: Performed By: #### C BC #### [facility] [address] [place] [address] Dr. Jordan Blackwell AST [Catalytic activity/Vol] 18 U/L Normal 15-37 [facility] Comment on above: Performed By: #### C BC #### [facility] [address] [place] [address] Dr. Jordan Blackwell Bilirubin [Mass/Vol] 0.2 mg/dL Normal 0.2-1.0 [facility] Comment on above: Performed By: #### C BC #### [facility] [address] [place] [address] Dr. Jordan Blackwell Calcium [Mass/Vol] 8.3 mg/dL Critically low 8.5-10.1 [facility] Comment on above: Performed By: #### C BC #### [facility] [address] [place] [address] Dr. Jordan Blackwell Chloride [Moles/Vol] 97 mmol/L Critically low 98-107 [facility] Comment on above: Performed By: #### C BC #### [facility] [address] [place] [address] Dr. Jordan Blackwell CO2 [Moles/Vol] 28.5 mmol/L Normal 21.0-32.0 [facility] Comment on above: Performed By: #### C BC #### [facility] [address] [place] [address] Dr. Jordan Blackwell Creatinine [Mass/Vol] 0.68 mg/dL Normal 0.55-1.02 [facility] Comment on above: Performed By: #### C BC #### [facility] [facility] [address] [place] [address] Dr. Jordan Blackwell EGFR-AF FRENCH >60 Normal >=60 [facility] Comment on above: Performed By: #### C BC #### [facility] [address] [place] [address] Dr. Jordan Blackwell EGFR-NON AF FRENCH >60 Normal >=60 [facility] Comment on above: Performed By: #### C BC #### [facility] [address] [place] [address] Dr. Jordan Blackwell Globulin (S) [Mass/Vol] 3.6 g/dL Normal [facility] Comment on above: Performed By: #### C BC #### [facility] [address] [place] [address] Dr. Jordan Blackwell Glucose [Mass/Vol] 113 mg/dL Critically high 74-106 T [facility] Comment on above: Performed By: #### C BC #### [facility] [address] [address] [address] Jordan Blackwell Potassium [Moles/Vol] 4.6 mmol/L Normal 3.5-5.1 [facility] Comment on above: Performed By: #### C BC #### [facility] [address] [address] [address] Jordan Blackwell Protein [Mass/Vol] 7.2 g/dL Normal 6.4-8.2 [facility] Comment on above: Performed By: #### C BC #### [facility] [address] [place] [address] Dr. Jordan Blackwell Sodium [Moles/Vol] 130 mmol/L Critically low 136-145 [facility] Comment on above: Performed By: #### C BC #### [facility] [address] [place] [address] Dr. Jordan Blackwell Urea nitrogen [Mass/Vol] 17.0 mg/dL Normal 7.0-18.0 [facility] Comment on above: Performed By: #### C BC #### [facility] [address] [place] [address] Dr. Jordan Blackwell Urea nitrogen/Creatinine [Mass ratio] 25.0 mg/mg Normal [facility] Comment on above: Performed By: #### C BC #### [facility] [address] [place] [address] Dr. Jordan Blackwell TIBC ONLY- NO FEon TIBC DIRECT 296.0 ug/dL Normal 250.0-450. 0 [facility] Comment on above: Performed By: #### U RCX #### [facility] [address] [place] [address] Dr. Jordan Blackwell TSHon 06-30-2022 TSH 2.703 uIU/mL Normal 0.358-3.74 0 [facility] Comment on above: Performed By: #### B MP #### [facility] [address], [place] [address] Dr. Jordan Blackwell VITAMIN B12on 06-30-2022 Cobalamin (Vitamin B12) [Mass/Vol] 230.0 pg/mL Normal 193.0-986. 0 [facility] Comment on above: Performed By: #### U RCX #### [facility] [address], [place] [address] Dr. Jordan Blackwell XR shoulder LT min 2V*on XR shoulder LT min 2V* Normal [facility] Ambulatory Visit Summaryon 0 06-15-2022 Ambulatory Visit Summary GUERA SANCHEZ :1955 Visit Date:06/15/2022 Ambulatory Visit Instructions Your Care Team Attending Physician - GRANT CAMPBELL, Zainab Cooley Primary Care Physician - Amandeep CAMPBELL, Ash This Is Your Medications List amlodipine (amLODIPine 10 mg Tab) atorvastatin (atorvastatin 10 mg Tab) citalopram (CeleXA 40 mg Tab) diclofenac (diclofenac sodium 75 mg Oral EC Tab) folic acid (folic acid 1 mg Tab) gabapentin (gabapentin 600 mg Tab) irbesartan (irbesartan 300 mg Tab) lansoprazole (lansoprazole 30 mg Cap-DR) liothyronine (liothyronine 5 mcg Tab) magnesium oxide (magnesium oxide 400 mg Tab) metformin (metformin 850 mg Tab) pioglitazone (pioglitazone 45 mg Tab) quetiapine (quetiapine 100 mg Tab) sodium chloride (Sodium Chloride 1 g oral tablet) Procedures Performed Colonoscopy (06/06/2022), EGD - Esophagogastroduodenoscopy (06/06/2022), Fracture of humerus, Lumbar discectomy. Medications What How Much When Instructions Unchanged amlodipine (amLODIPine 10 mg Tab) 1 Tablets By Mouth Every day Unchanged atorvastatin (atorvastatin 10 mg Tab) 1 Tablets By Mouth Every day Unchanged citalopram (CeleXA 40 mg Tab) 1 Tablets By Mouth Every day Unchanged diclofenac (diclofenac sodium 75 mg Oral EC Tab) 1 Tablets By Mouth 2 times a day Unchanged folic acid (folic acid 1 mg Tab) 1 Tablets By Mouth Every day Unchanged gabapentin (gabapentin 600 mg Tab) 1 Tablets By Mouth 2 times a day Unchanged irbesartan (irbesartan 300 mg Tab) 1 Tablets By Mouth Every day Unchanged lansoprazole (lansoprazole 30 mg Cap-DR) 1 Capsules By Mouth Every day Unchanged liothyronine (liothyronine 5 mcg Tab) 2 Tablets By Mouth Every day Unchanged magnesium oxide (magnesium oxide 400 mg Tab) 1 Tablets By Mouth Every day Unchanged metformin (metformin 850 mg Tab) 1 Tablets By Mouth 2 times a day Unchanged pioglitazone (pioglitazone 45 mg Tab) 1 Tablets By Mouth Every day Unchanged quetiapine (quetiapine 100 mg Tab) 1 Tablets By Mouth At bedtime Unchanged sodium chloride (Sodium Chloride 1 g oral tablet) 3 Tablets By Mouth 3 times a day Allergies No Known Allergies No Known Medication Allergies Problems Ongoing - Any problem that you are currently receiving treatment for. Anxiety BMI 33.0-33.9,adult Depression Diabetes Dysarthria Eczema Hearing loss HTN (hypertension) Hypomagnesemia Hyponatremia IBS (irritable bowel syndrome) Iron deficiency anemia Lumbosacral stenosis Obesity Osteoporosis Normal [facility] General Surgery Office/Clini c Noteon 06-15-2022 General Surgery Office/Clinic Note Chief Complaint EGD and colonoscopy follow up HPI Staff 9 day post operative follow up post EGD with antral biopsy and colonoscopy with ascending colon polypectomy. History of Present Illness s/p EGD and colonoscopy for anemia, mild antral gastritis found, bx negative for H pylori; small hyperplastic ascending colon polyp removed, 2 small sigmoid polyps removed, but not retrieved; patient doing well, no abdominal pain or blood in stools. Assessment/Plan 1. Hyperplastic polyp of ascending colon (K63.5: Polyp of colon) recommend surveillance colonoscopy in 5 years, also due to fact that 2 small sigmoid polyps not retrieved; call sooner if problems/questions. 2. Iron deficiency anemia (D50.9: Iron deficiency anemia, unspecified) no explanation found on endoscopies; recommend f/u with family doctor; likely will require Hematology evaluation. Follow-up No qualifying data available Problem List/Past Medical History Ongoing Anxiety BMI 33.0-33.9,adult Depression Diabetes Dysarthria Eczema Hearing loss HTN (hypertension) Hyperplastic polyp of ascending colon Hypomagnesemia Hyponatremia IBS (irritable bowel syndrome) Iron deficiency anemia Lumbosacral stenosis Obesity Osteoporosis Historical No qualifying data Procedure/Surgical History Colonoscopy (06/06/2022), EGD - Esophagogastroduodenoscopy (06/06/2022), Fracture of humerus, Lumbar discectomy. Medications amLODIPine 10 mg Tab, 10 mg= 1 tab(s), Oral, Daily atorvastatin 10 mg Tab, 10 mg= 1 tab(s), Oral, Daily CeleXA 40 mg Tab, 40 mg= 1 tab(s), Oral, Daily diclofenac sodium 75 mg Oral EC Tab, 75 mg= 1 tab(s), Oral, BID folic acid 1 mg Tab, 1 mg= 1 tab(s), Oral, Daily gabapentin 600 mg Tab, 600 mg= 1 tab(s), Oral, BID irbesartan 300 mg Tab, 300 mg= 1 tab(s), Oral, Daily lansoprazole 30 mg Cap-DR, 30 mg= 1 cap(s), Oral, Daily liothyronine 5 mcg Tab, 10 mcg= 2 tab(s), Oral, Daily magnesium oxide 400 mg Tab, 400 mg= 1 tab(s), Oral, Daily metformin 850 mg Tab, 850 mg= 1 tab(s), Oral, BID pioglitazone 45 mg Tab, 45 mg= 1 tab(s), Oral, Daily quetiapine 100 mg Tab, 100 mg= 1 tab(s), Oral, Bedtime Sodium Chloride 1 g oral tablet, 3 tab(s), Oral, TID Allergies No Known Allergies No Known Medication Allergies Social History Alcohol - Denies Alcohol Use, 05/09/2022 Substance Abuse Current, Marijuana, 1-2 times per week, 05/09/2022 Tobacco Former smoker, quit more than 30 days ago Tobacco Use:. Never Smokeless Tobacco Use:. Cigarettes, 0.5 per day. Started age 16.0 Years. Stopped age 34 Years., 05/09/2022 Family History Hypertension: Mother. Primary malignant neoplasm of female breast: Sister. Primary malignant neoplasm of lung: Mother. Immunizations Vaccine Date Status Comments influenza virus vaccine, inactivated 03/22/2022 Recorded SARS-CoV-2 (COVID-19) mRNA BNT-162b2 vax 01/26/2021 Recorded 2022-05-04: [id number] SARS-CoV-2 (COVID-19) mRNA BNT-162b2 vax 07/13/2020 Recorded 2022-05-04: [id number] SARS-CoV-2 (COVID-19) mRNA-1273 vaccine 04/09/2020 Recorded SARS-CoV-2 (COVID-19) mRNA BNT-162b2 vax 03/28/2020 Recorded 2022-05-04: [id number] Normal [facility] Comment on above: Result Comment: Elec tronically Signed By: GRANT CAMPBELL, Zainab Hermosillo\Date and Time Signed: 06/15/22 15:11 EST Reminderson 06-15-2022 Reminders - From: Ragini Hylton LPN To: N - Clinical; Sent: 06/15/2022 13:59:41 EST Show up: 05/09/2027 07:00:00 EST Subject: colonoscopy recall Due Date/Time: 06/07/2027 07:00:00 EST Reminder/Recall Patient is due for colonoscopy 06/07/2027 due to history of colonic polyp. Normal [facility] Pathology Noteon 06-13-2022 Pathology Note [id number]:127 Normal [facility] Outside Colonoscopyon 2022 Outside Colonoscopy [id number]:127 Normal [facility] POINT OF CARE GLUCOSEon Glucose [Mass/Vol] 152 mg/dL Critically high 74-106 [facility] Comment on above: Performed By: #### O SMO #### [facility] [address] [place] [address] Dr. Jordan Blackwell CBC AUTO DIFFon 06-01-2022 BASO # 0.1 103/ul Normal 0.0-0.1 [facility] Comment on above: Performed By: #### C BC #### [facility] [address] [address] [address] Jordan Blackwell Basophils/100 WBC (Bld) 0.7 % Normal 0.2-2.0 [facility] Comment on above: Performed By: #### C BC #### [facility] [address] [place] [address] Dr. Jordan Blackwell EO # 0.1 103/ul Normal 0.0-0.7 [facility] Comment on above: Performed By: #### C BC #### [facility] [address] [place] [address] Dr. Jordan Blackwell Eosinophils/100 WBC (Bld) 1.6 % Normal 0.9-7.0 [facility] Comment on above: Performed By: #### C BC #### [facility] [address] [place] [address] Dr. Jordan Blackwell Erythrocyte distribution width (RBC) [Ratio] 14.6 % Normal 11.0-15.0 [facility] Comment on above: Performed By: #### C BC #### [facility] [address] [place] [address] Dr. Jordan Blackwell Hematocrit (Bld) [Volume fraction] 34.8 % Critically low 36.0-48.0 [facility] Comment on above: Performed By: #### C BC #### [facility] [address] [place] [address] Dr. Jordan Blackwell Hemoglobin (Bld) [Mass/Vol] 10.9 g/dL Critically low 12.0-16.0 [facility] Comment on above: Performed By: #### C BC #### [facility] [address] [place] [address] Dr. Jordan Blackwell IG # 0.04 10e3/ul Critically high 0.00-0.03 [facility] Comment on above: Performed By: #### C BC #### [facility] [address] [place] [address] Dr. Jordan Blackwell IG % 0.5 % Normal 0.0-0.5 [facility] Comment on above: Performed By: #### C BC #### [facility] [address] [place] [address] Dr. Jordan Blackwell LYMPH # 2.6 103/ul Normal 1.2-3.8 [facility] Comment on above: Performed By: #### C BC #### [facility] [address] [place] [address] Dr. Jordan Blackwell Lymphocytes/100 WBC (Bld) 34.8 % Normal 20.5-60.0 [facility] Comment on above: Performed By: #### C BC #### [facility] [address] [place] [address] Dr. Jordan Blackwell MANUAL DIFF REQ NO Normal [facility] Comment on above: Performed By: #### C BC #### [facility] [address] [place] [address] Dr. Jordan Blackwell MCH (RBC) [Entitic mass] 28.7 pg Normal 26.7-34.0 [facility] Comment on above: Performed By: #### C BC #### [facility] [address] [place] [address] Dr. Jordan Blackwell MCHC (RBC) [Mass/Vol] 31.3 g/dL Normal 29.9-35.2 [facility] Comment on above: Performed By: #### C BC #### [facility] [address] [place] [address] Dr. Jordan Blackwell MCV (RBC) [Entitic vol] 91.6 fL Normal 81.0-99.0 [facility] Comment on above: Performed By: #### C BC #### [facility] [address] [place] [address] Dr. Jordan Blackwell MONO # 0.6 103/ul Normal 0.3-0.8 [facility] Comment on above: Performed By: #### C BC #### [facility] [address] [place] [address] Dr. Jordan Blackwell Monocytes/100 WBC (Bld) 7.9 % Normal 1.7-12.0 [facility] Comment on above: Performed By: #### C BC #### [facility] [address] [place] [address] Dr. Jordan Blackwell NEUT # 4.0 103/ul Normal 1.4-6.5 [facility] Comment on above: Performed By: #### C BC #### [facility] [address] [place] [address] Dr. Jordan Blackwell Neutrophils/100 WBC (Bld) 54.5 % Normal 43.0-75.0 [facility] Comment on above: Performed By: #### C BC #### [facility] [address] [place] [address] Dr. Jordan Blackwell Platelet mean volume (Bld) [Entitic vol] 10.4 fL Normal 9.5-13.5 [facility] Comment on above: Performed By: #### C BC #### [facility] [address] [place] [address] Dr. Jordan Blackwell PLT 252 103/ul Normal 150-450 [facility] Comment on above: Performed By: #### C BC #### [facility] [address] [place] [address] Dr. Jordan Blackwell RBC 3.80 106/ul Critically low 4.20-5.40 [facility] Comment on above: Performed By: #### C BC #### [facility] [address] [place] [address] Dr. Jordan Blacwkell WBC 7.3 103/ul Normal 4.0-11.0 [facility] Comment on above: Performed By: #### C BC #### [facility] [address] [place] [address] Dr. Jordan Blackwell BNPon 05-17-2022 Natriuretic peptide B (Bld) [Mass/Vol] 544.0 pg/mL Normal <=900.0 [facility] Comment on above: Performed By: #### C BC #### [facility] [address] [place] [address] Dr. Jordan Blackwell IRONon 05-17-2022 Iron [Mass/Vol] 36.0 ug/dL Critically low 50.0-170.0 [facility] Comment on above: Performed By: #### B MP #### [facility] [address] [place] [address] Dr. Jordan Blackwell MAGNESIUMon 05-17-2022 Magnesium [Mass/Vol] 1.4 mg/dL Critically low 1.8-2.4 [facility] Comment on above: Performed By: #### C BC #### [facility] [address] [place] [address] Dr. Jordan Blackwell PROF 14(COMP METB)on 023 Albumin [Mass/Vol] 3.3 g/dL Critically low 3.4-5.0 [facility] Comment on above: Performed By: #### C BC #### [facility] [address] [place] [address] Dr. Jordan Blackwell Albumin/Globulin [Mass ratio] 0.9 {ratio} Normal [facility] Comment on above: Performed By: #### C BC #### [facility] [address] [place] [address] Dr. Jordan Blackwell ALP [Catalytic activity/Vol] 124 U/L Critically high 46-116 [facility] Comment on above: Performed By: #### C BC #### [facility] [address] [place] [address] Dr. Jordan Blackwell ALT [Catalytic activity/Vol] 23 U/L Normal 14-59 [facility] Comment on above: Performed By: #### C BC #### [facility] [address] [place] [address] Dr. Jordan Blackwell Anion gap [Moles/Vol] 12.2 mmol/L Normal [facility] Comment on above: Performed By: #### C BC #### [facility] [address] [place] [address] Dr. Jordan Blackwell AST [Catalytic activity/Vol] 23 U/L Normal 15-37 [facility] Comment on above: Performed By: #### C BC #### [facility] [address] [place] [address] Dr. Jordan Blackwell Bilirubin [Mass/Vol] 0.2 mg/dL Normal 0.2-1.0 [facility] Comment on above: Performed By: #### C BC #### [facility] [address] [place] [address] Dr. Jordan Blackwell Calcium [Mass/Vol] 9.2 mg/dL Normal 8.5-10.1 [facility] Comment on above: Performed By: #### C BC #### [facility] [address] [place] [address] Dr. Jordan Blackwell Chloride [Moles/Vol] 100 mmol/L Normal 98-107 [facility] Comment on above: Performed By: #### C BC #### [facility] [address] [place] [address] Dr. Jordan Blackwell CO2 [Moles/Vol] 28.3 mmol/L Normal 21.0-32.0 [facility] Comment on above: Performed By: #### C BC #### [facility] [address] [place] [address] Dr. Jordan Blackwell Creatinine [Mass/Vol] 0.76 mg/dL Normal 0.55-1.02 [facility] Comment on above: Performed By: #### C BC #### [facility] [address] [place] [address] Dr. Jordan Blackwell EGFR-AF FRENCH >60 Normal >=60 [facility] Comment on above: Performed By: #### C BC #### [facility] [address] [place] [address] Dr. Jordan Blackwell EGFR-NON AF FRENCH >60 Normal >=60 [facility] Comment on above: Performed By: #### C BC #### [facility] [address] [place] [address] Dr. Jordan Blackwell Globulin (S) [Mass/Vol] 3.6 g/dL Normal [facility] Comment on above: Performed By: #### C BC #### [facility] [address] [place] [address] Dr. Jordan Blcakwell Glucose [Mass/Vol] 161 mg/dL Critically high 74-106 [facility] Comment on above: Performed By: #### C BC #### [facility] [address] [place] [address] Dr. Jordan Blackwell Potassium [Moles/Vol] 4.5 mmol/L Normal 3.5-5.1 [facility] Comment on above: Performed By: #### C BC #### [facility] [address] [place] [address] Dr. Jordan Blackwell Protein [Mass/Vol] 6.9 g/dL Normal 6.4-8.2 [facility] Comment on above: Performed By: #### C BC #### [facility] [address] [address] [address] Jordan Blackwell Sodium [Moles/Vol] 136 mmol/L Normal 136-145 [facility] Comment on above: Performed By: #### C BC #### [facility] [address] [address] [address] Jordan Blackwell Urea nitrogen [Mass/Vol] 10.0 mg/dL Normal 7.0-18.0 [facility] Comment on above: Performed By: #### C BC #### [facility] [address] [address] [address] Jordan Blackwell Urea nitrogen/Creatinine [Mass ratio] 13.2 mg/mg Normal [facility] Comment on above: Performed By: #### C BC #### [facility] [address] [address] [address] Jordan Blackwell Consent for Procedure/Surger yon 05-11-2022 Consent for Procedure/Surgery [id number]:127 Normal [facility] Facesheeton 05-10-2022 Facesheet [id number]#[id number]:127 Normal [facility] RAD - CT Reporton 05-10-2022 RAD - CT Report [id number]:127 Normal [facility] XR shoulder LT min 2V*on XR shoulder LT min 2V* Normal [facility] Ambulatory Visit Summaryon 0 05-09-2022 Ambulatory Visit Summary MEGAN SANCHEZJOE Nichols :1955 Visit Date:05/09/2022 Ambulatory Visit Instructions Your Care Team Attending Physician - GRANT CAMPBELL, Zainab Cooley Primary Care Physician - Amandeep CAMPBELL, Ash This Is Your Medications List Contact prescribing physician if questions or concerns amlodipine (amLODIPine 10 mg Tab) atorvastatin (atorvastatin 10 mg Tab) citalopram (CeleXA 40 mg Tab) diclofenac (diclofenac sodium 75 mg Oral EC Tab) folic acid (folic acid 1 mg Tab) gabapentin (gabapentin 600 mg Tab) irbesartan (irbesartan 300 mg Tab) lansoprazole (lansoprazole 30 mg Cap-DR) liothyronine (liothyronine 5 mcg Tab) magnesium oxide (magnesium oxide 400 mg Tab) metformin (metformin 850 mg Tab) pioglitazone (pioglitazone 45 mg Tab) quetiapine (quetiapine 100 mg Tab) sodium chloride (Sodium Chloride 1 g oral tablet) Procedures Performed Fracture of humerus, Lumbar discectomy. Discharge Vitals Heart Rate (Peripheral) 76 Respiratory Rate 16 Blood Pressure 120/62 Height 172.72 cm Height 68 in Weight 99.0 kg Weight 217.8 lb BMI 33.19 Medications What How Much When Instructions Unchanged amlodipine (amLODIPine 10 mg Tab) 1 Tablets By Mouth Every day Contact prescribing physician if questions or concerns Unchanged atorvastatin (atorvastatin 10 mg Tab) 1 Tablets By Mouth Every day Contact prescribing physician if questions or concerns Unchanged citalopram (CeleXA 40 mg Tab) 1 Tablets By Mouth Every day Contact prescribing physician if questions or concerns Unchanged diclofenac (diclofenac sodium 75 mg Oral EC Tab) 1 Tablets By Mouth 2 times a day Contact prescribing physician if questions or concerns Unchanged folic acid (folic acid 1 mg Tab) 1 Tablets By Mouth Every day Contact prescribing physician if questions or concerns Unchanged gabapentin (gabapentin 600 mg Tab) 1 Tablets By Mouth 2 times a day Contact prescribing physician if questions or concerns Unchanged irbesartan (irbesartan 300 mg Tab) 1 Tablets By Mouth Every day Contact prescribing physician if questions or concerns Unchanged lansoprazole (lansoprazole 30 mg Cap-DR) 1 Capsules By Mouth Every day Contact prescribing physician if questions or concerns Unchanged liothyronine (liothyronine 5 mcg Tab) 2 Tablets By Mouth Every day Contact prescribing physician if questions or concerns Unchanged magnesium oxide (magnesium oxide 400 mg Tab) 1 Tablets By Mouth Every day Contact prescribing physician if questions or concerns Unchanged metformin (metformin 850 mg Tab) 1 Tablets By Mouth 2 times a day Contact prescribing physician if questions or concerns Unchanged pioglitazone (pioglitazone 45 mg Tab) 1 Tablets By Mouth Every day Contact prescribing physician if questions or concerns Unchanged quetiapine (quetiapine 100 mg Tab) 1 Tablets By Mouth At bedtime Contact prescribing physician if questions or concerns Unchanged sodium chloride (Sodium Chloride 1 g oral tablet) 3 Tablets By Mouth 3 times a day Contact prescribing physician if questions or concerns Allergies No Known Allergies No Known Medication Allergies Problems Ongoing - Any problem that you are currently receiving treatment for. Anxiety BMI 33.0-33.9,adult Depression Diabetes Dysarthria Eczema Hearing loss HTN (hypertension) Hypomagnesemia Hyponatremia IBS (irritable bowel syndrome) Iron deficiency anemia Lumbosacral stenosis Obesity Osteoporosis Normal [facility] CBC AUTO DIFFon 05-02-2022 BASO # 0.1 103/ul Normal 0.0-0.1 [facility] Comment on above: Performed By: #### U RCX #### [facility] [address] [address] [address] Jordan Blackwell Basophils/100 WBC (Bld) 0.6 % Normal 0.2-2.0 [facility] Comment on above: Performed By: #### U RCX #### [facility] [address] [address] [address] Jordan Blackwell EO # 0.3 103/ul Normal 0.0-0.7 [facility] Comment on above: Performed By: #### U RCX #### [facility] [address] [address] [address] Jordan Blackwell Eosinophils/100 WBC (Bld) 3.3 % Normal 0.9-7.0 [facility] Comment on above: Performed By: #### U RCX #### [facility] [address] [address] [address] Jordan Blackwell Erythrocyte distribution width (RBC) [Ratio] 15.4 % Critically high 11.0-15.0 [facility] Comment on above: Performed By: #### U RCX #### [facility] [address] [address] [address] Jordan Blackwell Hematocrit (Bld) [Volume fraction] 27.6 % Critically low 36.0-48.0 [facility] Comment on above: Performed By: #### U RCX #### [facility] [address] [address] [address] Jordan Blackwell Hemoglobin (Bld) [Mass/Vol] 8.0 g/dL Critically low 12.0-16.0 [facility] Comment on above: Performed By: #### U RCX #### [facility] [address] [address] [address] Jordan Blackwell IG # 0.14 10e3/ul Critically high 0.00-0.03 [facility] Comment on above: Performed By: #### U RCX #### [facility] [address] [address] [address] Jordan Blackwell IG % 1.6 % Critically high 0.0-0.5 [facility] Comment on above: Performed By: #### U RCX #### [facility] [address] [address] [address] Jordan Blackwell LYMPH # 2.7 103/ul Normal 1.2-3.8 [facility] Comment on above: Performed By: #### U RCX #### [facility] [address] [place] [address] Dr. Jordan Blackwell Lymphocytes/100 WBC (Bld) 32.1 % Normal 20.5-60.0 [facility] Comment on above: Performed By: #### U RCX #### [facility] [address] [place] [address] Dr. Jordan Blackwell MANUAL DIFF REQ NO Normal [facility] Comment on above: Performed By: #### U RCX #### [facility] [address] [place] [address] Dr. Jordan Blackwell MCH (RBC) [Entitic mass] 29.4 pg Normal 26.7-34.0 [facility] Comment on above: Performed By: #### U RCX #### [facility] [address] [address] [address] Jordan Blackwell MCHC (RBC) [Mass/Vol] 29.0 g/dL Critically low 29.9-35.2 [facility] Comment on above: Performed By: #### U RCX #### [facility] [address] [place] [address] Dr. Jordan Blackwell MCV (RBC) [Entitic vol] 101.5 fL Critically high 81.0-99 .0 [facility] Comment on above: Performed By: #### U RCX #### [facility] [address] [address] [address] Jordan Blackwell MONO # 0.7 103/ul Normal 0.3-0.8 [facility] Comment on above: Performed By: #### U RCX #### [facility] [address] [address] [address] Jordan Blackwell Monocytes/100 WBC (Bld) 7.9 % Normal 1.7-12.0 [facility] Comment on above: Performed By: #### U RCX #### [facility] [address] [address] [address] Jordan Blackwell NEUT # 4.6 103/ul Normal 1.4-6.5 [facility] Comment on above: Performed By: #### U RCX #### [facility] [address] [place] [address] Dr. Jordan Blackwell Neutrophils/100 WBC (Bld) 54.5 % Normal 43.0-75.0 [facility] Comment on above: Performed By: #### U RCX #### [facility] [address] [place] [address] Dr. Jordan Blackwell Platelet mean volume (Bld) [Entitic vol] 10.3 fL Normal 9.5-13.5 [facility] Comment on above: Performed By: #### U RCX #### [facility] [address] [place] [address] Dr. Jordan Blcakwell PLT 310 103/ul Normal 150-450 [facility] Comment on above: Performed By: #### U RCX #### [facility] [address] [address] [address] Jordan Blackwell RBC 2.72 106/ul Critically low 4.20-5.40 [facility] Comment on above: Performed By: #### U RCX #### [facility] [address] [address] [address] Jordan Blackwell WBC 8.5 103/ul Normal 4.0-11.0 [facility] Comment on above: Performed By: #### U RCX #### [facility] [address] [place] [address] Dr. Jordan Blackwell Lab Reportson 05-02-2022 Lab Reports [id number]:127 Normal [facility] Physician Referralon 023 Physician Referral [id number]:127 Normal [facility] CBC AUTO DIFFon 05-01-2022 BASO # 0.1 103/ul Normal 0.0-0.1 [facility] Comment on above: Performed By: #### C BC #### [facility] [address] [place] [address] Dr. Jordan Blackwell Basophils/100 WBC (Bld) 0.6 % Normal 0.2-2.0 [facility] Comment on above: Performed By: #### C BC #### [facility] [address] [place] [address] Dr. Jordan Blackwell EO # 0.3 103/ul Normal 0.0-0.7 [facility] Comment on above: Performed By: #### C BC #### [facility] [address] [place] [address] Dr. Jordan Blackwell Eosinophils/100 WBC (Bld) 3.3 % Normal 0.9-7.0 [facility] Comment on above: Performed By: #### C BC #### [facility] [address] [place] [address] Dr. Jordan Blackwell Erythrocyte distribution width (RBC) [Ratio] 15.3 % Critically high 11.0-15.0 [facility] Comment on above: Performed By: #### C BC #### [facility] [address] [place] [address] Dr. Jordan Blackwell Hematocrit (Bld) [Volume fraction] 26.1 % Critically low 36.0-48.0 [facility] Comment on above: Performed By: #### C BC #### [facility] [address] [place] [address] Dr. Jordan Blackwell Hemoglobin (Bld) [Mass/Vol] 8.0 g/dL Critically low 12.0-16.0 [facility] Comment on above: Performed By: #### C BC #### [facility] [address] [place] [address] Dr. Jordan Blackwell IG # 0.12 10e3/ul Critically high 0.00-0.03 [facility] Comment on above: Performed By: #### C BC #### [facility] [address] [place] [address] Dr. Jordan Blackwell IG % 1.3 % Critically high 0.0-0.5 [facility] Comment on above: Performed By: #### C BC #### [facility] [address] [place] [address] Dr. Jordan Blackwell LYMPH # 3.5 103/ul Normal 1.2-3.8 [facility] Comment on above: Performed By: #### C BC #### [facility] [address] [place] [address] Dr. Jordan Blackwell Lymphocytes/100 WBC (Bld) 38.9 % Normal 20.5-60.0 [facility] Comment on above: Performed By: #### C BC #### [facility] [address] [place] [address] Dr. Jordan Blackwell MANUAL DIFF REQ NO Normal [facility] Comment on above: Performed By: #### C BC #### [facility] [address] [place] [address] Dr. Jordan Blackwell MCH (RBC) [Entitic mass] 29.5 pg Normal 26.7-34.0 [facility] Comment on above: Performed By: #### C BC #### [facility] [address] [place] [address] Dr. Jordan Blackwell MCHC (RBC) [Mass/Vol] 30.7 g/dL Normal 29.9-35.2 [facility] Comment on above: Performed By: #### C BC #### [facility] [address] [place] [address] Dr. Jordan Blackwell MCV (RBC) [Entitic vol] 96.3 fL Normal 81.0-99.0 [facility] Comment on above: Performed By: #### C BC #### [facility] [address] [place] [address] Dr. Jordan Blackwell MONO # 0.7 103/ul Normal 0.3-0.8 [facility] Comment on above: Performed By: #### C BC #### [facility] [address] [place] [address] Dr. Jordan Blackwell Monocytes/100 WBC (Bld) 7.9 % Normal 1.7-12.0 [facility] Comment on above: Performed By: #### C BC #### [facility] [address] [place] [address] Dr. Jordan Blackwell NEUT # 4.3 103/ul Normal 1.4-6.5 [facility] Comment on above: Performed By: #### C BC #### [facility] [address] [place] [address] Dr. Jordan Blackwell Neutrophils/100 WBC (Bld) 48.0 % Normal 43.0-75.0 [facility] Comment on above: Performed By: #### C BC #### [facility] [address] [place] [address] Dr. Jordan Blackwell Platelet mean volume (Bld) [Entitic vol] 10.1 fL Normal 9.5-13.5 [facility] Comment on above: Performed By: #### C BC #### [facility] [address] [place] [address] Dr. Jordan Blackwell PLT 299 103/ul Normal 150-450 [facility] Comment on above: Performed By: #### C BC #### [facility] [address] [place] [address] Dr. Jordan Blackwell RBC 2.71 106/ul Critically low 4.20-5.40 [facility] Comment on above: Performed By: #### C BC #### [facility] [address] [place] [address] Dr. Jordan Blackwell WBC 9.0 103/ul Normal 4.0-11.0 [facility] Comment on above: Performed By: #### C BC #### [facility] [address] [place] [address] Dr. Jordan Blackwell CULTURE URINEon 05-01-2022 CULTURE URINE Culture Observations : LIGHT GROWTH OF MIXED GENITAL RUBÉN. NO POTENTIAL PATHOGENS SEEN. Normal [facility] Comment on above: Performed By: #### U RCX #### [facility] [address] [place] [address] Dr. Jordan Blackwell IRONon 05-01-2022 Iron [Mass/Vol] 30.0 ug/dL Critically low 50.0-170.0 [facility] Comment on above: Performed By: #### C BC #### [facility] [address] [place] [address] Dr. Jordan Blackwell MAGNESIUMon 05-01-2022 Magnesium [Mass/Vol] 1.2 mg/dL Critically low 1.8-2.4 [facility] Comment on above: Performed By: #### P RBC #### [facility] [address] [place] [address] Dr. Jordan Blackwell SODIUM RANDOM URINEon 2022 Sodium (U) [Moles/Vol] 55 mmol/L Normal 30-90 [facility] Comment on above: Performed By: #### C BC #### [facility] [address] [place] [address] Dr. Jordan Blackwell UA RANDOM W/MICROSCOPICon BACTERIA TRACE Abnormal NONE SEEN [facility] Comment on above: Performed By: #### B MP #### [facility] [address] [place] [address] Dr. Jordan Blackwell Bilirubin Ql (U) Negative Normal NEGATIVE [facility] Comment on above: Performed By: #### B MP #### [facility] [address] [place] [address] Dr. Jordan Blackwell CAST NONE SEEN Normal NONE SEEN [facility] Comment on above: Performed By: #### B MP #### [facility] [address] [place] [address] Dr. Jordan Blackwell Clarity (U) CLEAR Normal CLEAR [facility] Comment on above: Performed By: #### B MP #### [facility] [address] [place] [address] Dr. Jordan Blackwell Color (U) LT. YELLOW Normal YELLOW [facility] Comment on above: Performed By: #### B MP #### [facility] [address] [place] [address] Dr. Jordan Blackwell Crystals LM Nom (Urine sed) NONE SEEN Normal NONE SEEN [facility] Comment on above: Performed By: #### B MP #### [facility] [address] [place] [address] Dr. Jordan Blackwell Epithelial cells LM Ql (Urine sed) FEW Abnormal NONE SEEN /RARE [facility] Comment on above: Performed By: #### B MP #### [facility] [address] [place] [address] Dr. Jordan Blackwell Glucose Ql (U) Negative Normal NEGATIVE [facility] Comment on above: Performed By: #### B MP #### [facility] [address] [place] [address] Dr. Jordan Blackwell Hemoglobin Ql (U) Negative Normal NEGATIVE [facility] Comment on above: Performed By: #### B MP #### [facility] [address] [place] [address] Dr. Jordan Blackwell Ketones Ql (U) Negative Normal NEGATIVE [facility] Comment on above: Performed By: #### B MP #### [facility] [address] [place] [address] Dr. Jordan Blackwell LEUKOCYTES SMALL Abnormal NEGATIVE [facility] Comment on above: Performed By: #### B MP #### [facility] [address] [place] [address] Dr. Jordan Blackwell MUCOUS NONE SEEN Normal NONE SEEN [facility] Comment on above: Performed By: #### B MP #### [facility] [address] [place] [address] Dr. Jordan Blackwell Nitrite Ql (U) Negative Normal NEGATIVE [facility] Comment on above: Performed By: #### B MP #### [facility] [address] [place] [address] Dr. Jordan Blackwell pH (U) 6.0 [pH] Normal 5-9 [facility] Comment on above: Performed By: #### B MP #### [facility] [address] [place] [address] Dr. Jordan Blackwell RBC NONE SEEN Abnormal 0-2 [facility] Comment on above: Performed By: #### B MP #### [facility] [address] [place] [address] Dr. Jordan Blackwell SPEC GRAVITY <=1.005 Abnormal 1.005-<=1. 025 [facility] Comment on above: Performed By: #### B MP #### [facility] [address] [place] [address] Dr. Jordan Blackwell UA PROTEIN Negative Normal NEGATIVE/ TRACE [facility] Comment on above: Performed By: #### B MP #### [facility] [address] [place] [address] Dr. Jordan Blackwell Urobilinogen Qn (U) 0.2 {Claudia'U}/dL Normal 0.2 - 1. 0 [facility] Comment on above: Performed By: #### B MP #### [facility] [address] [place] [address] Dr. Jordan Blackwell WBC 2-5 Abnormal NONE SEEN [facility] Comment on above: Performed By: #### B MP #### [facility] [address] [place] [address] Dr. Jordan Blackwell CULTURE URINEon 04-27-2022 CULTURE URINE Culture Observations : LIGHT GROWTH OF MIXED GENITAL RUBÉN. NO POTENTIAL PATHOGENS SEEN. Normal [facility] Comment on above: Performed By: #### C BC #### [facility] [address] [place] [address] Dr. Jordan Blackwell UA RANDOM W/MICROSCOPICon BACTERIA NONE SEEN Normal NONE SEEN [facility] Comment on above: Performed By: #### U AMIC #### [facility] [address] [place] [address] Dr. Jordan Blackwell Bilirubin Ql (U) Negative Normal NEGATIVE [facility] Comment on above: Performed By: #### U AMIC #### [facility] [address] [address] [address] Jordan Blackwell CAST NONE SEEN Normal NONE SEEN [facility] Comment on above: Performed By: #### U AMIC #### [facility] [address] [address] [address] Jordan Blackwell Clarity (U) SL CLOUDY Abnormal CLEAR [facility] Comment on above: Performed By: #### U AMIC #### [facility] [address] [address] [address] Jordan Blackwell Color (U) LT. YELLOW Normal YELLOW [facility] Comment on above: Performed By: #### U AMIC #### [facility] [address] [place] [address] Dr. Jordan Blackwell Crystals LM Nom (Urine sed) NONE SEEN Normal NONE SEEN [facility] Comment on above: Performed By: #### U AMIC #### [facility] [address] [place] [address] Dr. Jordan Blackwell Epithelial cells LM Ql (Urine sed) FEW Abnormal NONE SEEN /RARE [facility] Comment on above: Performed By: #### U AMIC #### [facility] [address] [place] [address] Dr. Jordan Blackwell Glucose Ql (U) Negative Normal NEGATIVE [facility] Comment on above: Performed By: #### U AMIC #### [facility] [address] [place] [address] Dr. Jordan Blackwell Hemoglobin Ql (U) TRACE-INTACT Abnormal NEGATIVE [facility] Comment on above: Performed By: #### U AMIC #### [facility] [address] [place] [address] Dr. Jordan Blackwell Ketones Ql (U) Negative Normal NEGATIVE [facility] Comment on above: Performed By: #### U AMIC #### [facility] [address] [place] [address] Dr. Jordan Blackwell LEUKOCYTES TRACE Abnormal NEGATIVE [facility] Comment on above: Performed By: #### U AMIC #### [facility] [address] [place] [address] Dr. Jordan Blackwell MUCOUS NONE SEEN Normal NONE SEEN [facility] Comment on above: Performed By: #### U AMIC #### [facility] [address] [address] [address] Jordan Blackwell Nitrite Ql (U) Negative Normal NEGATIVE [facility] Comment on above: Performed By: #### U AMIC #### [facility] [address] [place] [address] Dr. Jordan Blackwell pH (U) 7.0 [pH] Normal 5-9 [facility] Comment on above: Performed By: #### U AMIC #### [facility] [address] [place] [address] Dr. Jordan Blackwell RBC 0-2 Normal 0-2 [facility] Comment on above: Performed By: #### U AMIC #### [facility] [address] [place] [address] Dr. Jordan Blackwell SPEC GRAVITY 1.015 Normal 1.005-<=1. 025 [facility] Comment on above: Performed By: #### U AMIC #### [facility] [address] [place] [address] Dr. Jordan Blackwell UA PROTEIN TRACE Normal NEGATIVE/ TRACE [facility] Comment on above: Performed By: #### U AMIC #### [facility] [address] [place] [address] Dr. Jordan Blackwell Urobilinogen Qn (U) 0.2 {Claudia'U}/dL Normal 0.2 - 1. 0 [facility] Comment on above: Performed By: #### U AMIC #### [facility] [address] [place] [address] Dr. Jordan Blackwell WBC 0-2 Abnormal NONE SEEN [facility] Comment on above: Performed By: #### U AMIC #### [facility] [address] [place] [address] Dr. Jordan Blackwell CBC AUTO DIFFon 04-26-2022 BASO # 0.0 103/ul Normal 0.0-0.1 [facility] Comment on above: Performed By: #### C BC #### [facility] [address] [place] [address] Dr. Jordan Blackwell Basophils/100 WBC (Bld) 0.3 % Normal 0.2-2.0 [facility] Comment on above: Performed By: #### C BC #### [facility] [address] [place] [address] Dr. Jordan Blackwell EO # 0.0 103/ul Normal 0.0-0.7 [facility] Comment on above: Performed By: #### C BC #### [facility] [address] [address] [address] Jordan Blackwell Eosinophils/100 WBC (Bld) 0.1 % Critically low 0.9-7.0 [facility] Comment on above: Performed By: #### C BC #### [facility] [address] [place] [address] Dr. Jordan Blackwell Erythrocyte distribution width (RBC) [Ratio] 14.1 % Normal 11.0-15.0 [facility] Comment on above: Performed By: #### C BC #### [facility] [address] [place] [address] Dr. Jordan Blacwkell Hematocrit (Bld) [Volume fraction] 28.8 % Critically low 36.0-48.0 [facility] Comment on above: Performed By: #### C BC #### [facility] [address] [place] [address] Dr. Jordan Blackwell Hemoglobin (Bld) [Mass/Vol] 9.6 g/dL Critically low 12.0-16.0 [facility] Comment on above: Performed By: #### C BC #### [facility] [address] [place] [address] Dr. Jordan Blackwell IG # 0.06 10e3/ul Critically high 0.00-0.03 [facility] Comment on above: Performed By: #### C BC #### [facility] [address] [place] [address] Dr. Jordan Blackwell IG % 0.6 % Critically high 0.0-0.5 [facility] Comment on above: Performed By: #### C BC #### [facility] [address] [place] [address] Dr. Jordan Blackwell LYMPH # 3.4 103/ul Normal 1.2-3.8 [facility] Comment on above: Performed By: #### C BC #### [facility] [address] [place] [address] Dr. Jordan Blackwell Lymphocytes/100 WBC (Bld) 31.8 % Normal 20.5-60.0 [facility] Comment on above: Performed By: #### C BC #### [facility] [address] [place] [address] Dr. Jordan Blackwell MANUAL DIFF REQ NO Normal [facility] Comment on above: Performed By: #### C BC #### [facility] [address] [place] [address] Dr. Jordan Blackwell MCH (RBC) [Entitic mass] 30.1 pg Normal 26.7-34.0 [facility] Comment on above: Performed By: #### C BC #### [facility] [address] [place] [address] Dr. Jordan Blackwell MCHC (RBC) [Mass/Vol] 33.3 g/dL Normal 29.9-35.2 [facility] Comment on above: Performed By: #### C BC #### [facility] [address] [place] [address] Dr. Jordan Blackwell MCV (RBC) [Entitic vol] 90.3 fL Normal 81.0-99.0 [facility] Comment on above: Performed By: #### C BC #### [facility] [address] [place] [address] Dr. Jordan Blackwell MONO # 0.7 103/ul Normal 0.3-0.8 [facility] Comment on above: Performed By: #### C BC #### [facility] [address] [place] [address] Dr. Jordan Blackwell Monocytes/100 WBC (Bld) 6.7 % Normal 1.7-12.0 [facility] Comment on above: Performed By: #### C BC #### [facility] [address] [place] [address] Dr. Jordan Blackwell NEUT # 6.5 103/ul Normal 1.4-6.5 [facility] Comment on above: Performed By: #### C BC #### [facility] [address] [place] [address] Dr. Jordan Blackwell Neutrophils/100 WBC (Bld) 60.5 % Normal 43.0-75.0 [facility] Comment on above: Performed By: #### C BC #### [facility] [address] [place] [address] Dr. Jordan Blackwell Platelet mean volume (Bld) [Entitic vol] 10.2 fL Normal 9.5-13.5 [facility] Comment on above: Performed By: #### C BC #### [facility] [address] [place] [address] Dr. Jordan Blackwell PLT 270 103/ul Normal 150-450 [facility] Comment on above: Performed By: #### C BC #### [facility] [address] [place] [address] Dr. Jordan Blackwell RBC 3.19 106/ul Critically low 4.20-5.40 [facility] Comment on above: Performed By: #### C BC #### [facility] [address] [place] [address] Dr. Jordan Blackwell WBC 10.7 103/ul Normal 4.0-11.0 [facility] Comment on above: Performed By: #### C BC #### [facility] [address] [place] [address] Dr. Jordan Blackwell FREE THYROXINE INDEX T7on FTI 3.40 Normal 1.30-4.50 [facility] Comment on above: Performed By: #### U AMIC #### [facility] [address] [place] [address] Dr. Jordan Blackwell T3U 34.0 % Normal 30.0-39.0 [facility] Comment on above: Performed By: #### U AMIC #### [facility] [address] [place] [address] Dr. Jordan Blackwell T4 [Mass/Vol] 10.00 ug/dL Normal 4.80-13.90 [facility] Comment on above: Performed By: #### U AMIC #### [facility] [address] [address] Dr. Jordan Blackwell GLYCOHEMOGLOBIN A1Con 2022 ADA RECOMMENDATION SEE BELOW Normal [facility] Comment on above: Result Comment: ADA RECOMMENDED LIMIT 4.0 - 6.0 ADA THERAPEUTIC TARGET < 7.0 ACTION SUGGESTED > 7.0 Performed By: #### B MP #### [facility] [address] [address] [address] Jordan Blackwell Glucose [Mass/Vol] 114 mg/dL Normal [facility] Comment on above: Performed By: #### B MP #### [facility] [address] [place] [address] Dr. Jordan Blackwell HbA1c (Bld) [Mass fraction] 5.6 % Normal 4.5-6.2 [facility] Comment on above: Performed By: #### B MP #### [facility] [address] [place] [address] Dr. Jordan Blackwell IRONon 04-26-2022 Iron [Mass/Vol] 40.0 ug/dL Critically low 50.0-170.0 [facility] Comment on above: Performed By: #### U AMIC #### [facility] [address] [place] [address] Dr. Jordan Blackwell LIPID PROFILEon 04-26-2022 CHOL-HDL RATIO NORM SEE BELOW Normal [facility] Comment on above: Result Comment: 3.3 - 4.4 LOW RISK 4.4 - 7.1 AVERAGE RISK 7.1 - 11.0 MODERATE RISK >11.0 HIGH RISK Performed By: #### U AMIC #### [facility] [address] [address] [address] Jordan Blackwell Cholesterol [Mass/Vol] 121 mg/dL Normal <=200 [facility] Comment on above: Performed By: #### U AMIC #### [facility] [address] [place] [address] Dr. Jordan Blackwell Cholesterol in HDL [Mass/Vol] 64 mg/dL Critically high 40-60 [facility] Comment on above: Performed By: #### U AMIC #### [facility] [address] [address] [address] Jordan Blackwell Cholesterol in LDL [Mass/Vol] 36.6 mg/dL Normal [facility] Comment on above: Performed By: #### U AMIC #### [facility] [address] [address] [address] Jordan Blackwell Cholesterol.total/Clau sterol in HDL [Mass ratio] 1.9 {ratio} Normal [facility] Comment on above: Performed By: #### U AMIC #### [facility] [address] [address] [address] Jordan Blackwell HDL NORMAL > or = 60 mg/dl - LO W CARDIOVASCULAR RISK <40 mg/dl - HIGH CARDIOVASCULAR RISK Normal [facility] Comment on above: Performed By: #### U AMIC #### [facility] [address] [address] [address] Jordan Blackwell LDL CALC NORMAL SEE BELOW Normal [facility] Comment on above: Result Comment: <100 mg/dl OPTIMAL 100 - 129 mg/dl NEAR OR ABOVE OPTIMAL 130 - 159 mg/dl BORDERLINE HIGH 160 - 189 mg/dl HIGH >190 mg/dl VERY HIGH Performed By: #### U AMIC #### [facility] [address] [address] [address] Jordan Blackwell Triglyceride [Mass/Vol] 102 mg/dL Normal <=150 T [facility] Comment on above: Performed By: #### U AMIC #### [facility] [address] [address] [address] Jordan Blackwell VLDL CALC 20.4 mg/dL Normal [facility] Comment on above: Performed By: #### U AMIC #### [facility] [address] [address] [address] Jordan Blackwell MAGNESIUMon 04-26-2022 Magnesium [Mass/Vol] 0.9 mg/dL Critically low 1.8-2.4 [facility] Comment on above: Performed By: #### U AMIC #### [facility] [address] [address] [address] Jordan Blackwell PROF 14(COMP METB)on 023 Albumin [Mass/Vol] 3.4 g/dL Normal 3.4-5.0 [facility] Comment on above: Performed By: #### U AMIC #### [facility] [address] [address] [address] Jordan Blackwell Albumin/Globulin [Mass ratio] 0.9 {ratio} Normal [facility] Comment on above: Performed By: #### U AMIC #### [facility] [address] [address] [address] Jordan Blackwell ALP [Catalytic activity/Vol] 98 U/L Normal 46-116 [facility] Comment on above: Performed By: #### U AMIC #### [facility] [address] [address] [address] Jordan Blackwell ALT [Catalytic activity/Vol] 12 U/L Critically low 14-59 [facility] Comment on above: Performed By: #### U AMIC #### [facility] [address] [address] [address] Jordan Blackwell Anion gap [Moles/Vol] 15.5 mmol/L [facility] Comment on above: Performed By: #### U AMIC #### [facility] [address] [place] [address] Dr. Jordan Blackwell AST [Catalytic activity/Vol] 15 U/L Normal 15-37 [facility] Comment on above: Performed By: #### U AMIC #### [facility] [address] [place] [address] Dr. Jordan Blackwell Bilirubin [Mass/Vol] 0.2 mg/dL Normal 0.2-1.0 [facility] Comment on above: Performed By: #### U AMIC #### [facility] [address] [address] [address] Jordan Blackwell Calcium [Mass/Vol] 9.4 mg/dL Normal 8.5-10.1 [facility] Comment on above: Performed By: #### U AMIC #### [facility] [address] [address] [address] Jordan Blackwell Chloride [Moles/Vol] 93 mmol/L Critically low 98-107 [facility] Comment on above: Performed By: #### U AMIC #### [facility] [address] [place] [address] Dr. Jordan Blackwell CO2 [Moles/Vol] 24.3 mmol/L Normal 21.0-32.0 [facility] Comment on above: Performed By: #### U AMIC #### [facility] [address] [place] [address] Dr. Jordan Blackwell Creatinine [Mass/Vol] 0.80 mg/dL Normal 0.55-1.02 [facility] Comment on above: Performed By: #### U AMIC #### [facility] [address] [place] [address] Dr. Jordan Blackwell EGFR-AF FRENCH >60 Normal >=60 [facility] Comment on above: Performed By: #### U AMIC #### [facility] [address] [place] [address] Dr. Jordan Blackwell EGFR-NON AF FRENCH >60 Normal >=60 [facility] Comment on above: Performed By: #### U AMIC #### [facility] [address] [place] [address] Dr. Jordan Blackwell Globulin (S) [Mass/Vol] 3.7 g/dL Normal [facility] Comment on above: Performed By: #### U AMIC #### [facility] [address] [place] [address] Dr. Jordan Blackwell Glucose [Mass/Vol] 210 mg/dL Critically high 74-106 [facility] Comment on above: Performed By: #### U AMIC #### [facility] [address] [place] [address] Dr. Jordan Blackwell Potassium [Moles/Vol] 3.8 mmol/L Normal 3.5-5.1 [facility] Comment on above: Performed By: #### U AMIC #### [facility] [address] [place] [address] Dr. Jordan Blackwell Protein [Mass/Vol] 7.1 g/dL Normal 6.4-8.2 [facility] Comment on above: Performed By: #### U AMIC #### [facility] [address] [address] [address] Jordan Blackwell Sodium [Moles/Vol] 129 mmol/L Critically low 136-145 [facility] Comment on above: Performed By: #### U AMIC #### [facility] [address] [address] [address] Jordan Blackwell Urea nitrogen [Mass/Vol] 17.0 mg/dL Normal 7.0-18.0 [facility] Comment on above: Performed By: #### U AMIC #### [facility] [address] [address] [address] Jordan Blackwell Urea nitrogen/Creatinine [Mass ratio] 21.2 mg/mg Normal [facility] Comment on above: Performed By: #### U AMIC #### [facility] [address] [place] [address] Dr. Jordan Blackwell TSHon 04-26-2022 TSH 2.870 uIU/mL Normal 0.358-3.74 0 [facility] Comment on above: Performed By: #### U AMIC #### [facility] [address] [place] [address] Dr. Jordan Blackwell PRBC LEUKOREDUCEDon 04-05-20 ABO and Rh group Nom (Bld) Cross Match Result Compatible Unit Blood Type O Pos Unit Number [id number] Status Information Transfused Product ID Red Blood Cells Product Code [id number] Cross Match Result Compatible Unit Blood Type O Pos Unit Number [id number] Status Information Transfused Product ID Red Blood Cells Product Code [id number] Normal [facility] Comment on above: Performed By: #### P RBC #### [facility] [address] [place] [address] Dr. Jordan Blackwell Basic Metabolic Panelon 03-09 Anion gap [Moles/Vol] 12.0 mmol/L Normal 6.0-15.0 [facility] Comment on above: Performed By: #### B MP ####[address] [place] [address] [facility] Calcium [Mass/Vol] 8.8 mg/dL Normal 8.2-10.2 [facility] Comment on above: Performed By: #### B MP ####[address] [address] [facility] Chloride [Moles/Vol] 99 mmol/L Normal 95-114 [facility] Comment on above: Performed By: #### B MP ####[address] [address] [facility] CO2 [Moles/Vol] 25.3 mmol/L Normal 22.0-30.0 [facility] Comment on above: Performed By: #### B MP ####[address] [address] [facility] Creatinine [Mass/Vol] 0.88 mg/dL Normal 0.44-1.03 [facility] Comment on above: Performed By: #### B MP ####[address] [address] [facility] Creatinine Clr Calc Pharmacy 75.08 [facility] Comment on above: Result Comment: PERF ORMED BY:[address] [place], [place] [phone] MEDICAL ANDRE SINGER M.D. Performed By: #### B MP ####[address] [address] [facility] Estimated GFR ( Brenda > 60 [facility] Comment on above: Result Comment: GFR estimated reference range: According to KDOQI guidelines, <60 ml/min/1.73m2 is sufficient to diagnose a patient with chronic kidney disease. Performed By: #### B MP ####[address] [address] [facility] Estimated GFR (Non- Am > 60 [facility] Comment on above: Performed By: #### B MP ####[id number] [facility] Glucose [Mass/Vol] 145 mg/dL High 70-100 [facility] Comment on above: Result Comment: [place] [facility] Glucose Reference Range is dependent on time and content of last meal. Glucose of more than 200 mg/dL in a nonstressed, ambulatory subject supports the diagnosis of Diabetes Mellitus. ADA recommended reference range Performed By: #### B MP ####[facility] [id number] [place] [address] [facility] Potassium [Moles/Vol] 4.3 mmol/L Normal 3.5-5.1 [facility] Comment on above: Performed By: #### B MP ####[facility] [id number] [place] [address] [facility] Sodium [Moles/Vol] 132 mmol/L Low 136-146 [facility] Comment on above: Performed By: #### B MP ####[facility] [id number] [place] [address] [facility] Urea nitrogen [Mass/Vol] 11 mg/dL Normal 9-23 [facility] Comment on above: Performed By: #### B MP ####[facility] [id number] [place] [address] [facility] Creatinine and Glomerular fi ltration rate.predicted panel (S/P/Bld)Ordered By: Ryan Ibrahim on 03-27-2022 Creatinine [Mass/Vol] 0.88 mg/dL 0.44-1.03 [facility] Estimated glomerular filtrat ion rate (GFR) non- AmericanOrdered By: Ryan Ibrahim on 03-27-2022 GFR/1.73 sq M.predicted among non-blacks MDRD (S/P/Bld) [Vol rate/Area] > 60 mL/Min [facility] Glucose Glucometer (BldC) [M ass/Vol]Ordered By: Ryan Ibrahim on 03-27-2022 Glucose [Mass/Vol] 162 mg/dL [facility] Comment on above: Random Glucose Refer ence Range is dependent on time and content of last meal. Glucose of more than 200 mg/dL in a nonstressed, ambulatory subject supports the diagnosis of Diabetes Mellitus. Glucose Poct Glucometerson 1 05-28-2021 Commemt1 Glu2: Cleaned Meter Normal [facility] Comment on above: Result Comment: PERF ORMED BY:[facility] [place], [place] [phone] MEDICAL DIRECTORKIMBERLYN SINGER M.D. Performed By: #### G LULS ####Point of Care testing, Glucose [Mass/Vol] 162 mg/dL Normal [facility] Comment on above: Result Comment: [place] [facility] Glucose Reference Range is dependent on time and content of last meal. Glucose of more than 200 mg/dL in a nonstressed, ambulatory subject supports the diagnosis of Diabetes Mellitus. Performed By: #### G LULS ####Point of Care testing, No Panel InformationOrdered By: Ryan Ibrahim on 03-27-2022 Bedside Glucose Comment Glu2: cleaned meter [facility] Estimated GFR () > 60 mL/Min [facility] Comment on above: GFR estimated refere nce range: According to KDOQI guidelines, <60 ml/min/1.73m2 is sufficient to diagnose a patient with chronic kidney disease. Pharmacy Creatinine Clearance (Chem 75.08 [facility] Serum or plasma anion gap de terminationOrdered By: Ryan Ibrahim on 03-27-2022 Anion gap [Moles/Vol] 12.0 mmol/L 6.0-15.0 [facility] Serum or plasma calcium john urement (mass/volume)Ordered By: Ryan Ibrahim on 03-27-2022 Calcium [Mass/Vol] 8.8 mg/dL 8.2-10.2 [facility] Serum or plasma chloride tressa surement (moles/volume)Ordered By: Ryan Ibrahim on 03-27-2022 Chloride [Moles/Vol] 99 mmol/L 95-114 [facility] Serum or plasma glucose john urement (mass/volume)Ordered By: Ryan Ibrahim on 03-27-2022 Glucose [Mass/Vol] 145 mg/dL 70-100 [facility] Comment on above: ADA recommended refe rence rangeRandom Glucose Reference Range is dependent on time and content of last meal. Glucose of more than 200 mg/dL in a nonstressed, ambulatory subject supports the diagnosis of Diabetes Mellitus. Serum or plasma potassium me asurement (moles/volume)Ordered By: Ryan Ibrahim on 03-27-2022 Potassium [Moles/Vol] 4.3 mmol/L 3.5-5.1 [facility] Serum or plasma sodium measu rement (moles/volume)Ordered By: Ryan Ibrahim on 03-27-2022 Sodium [Moles/Vol] 132 mmol/L 136-146 [facility] Serum or plasma total carbon dioxide measurement (moles/volume)Ordered By: Ryan Ibrahim on 03-27-2022 CO2 [Moles/Vol] 25.3 mmol/L 22.0-30.0 [facility] Serum or plasma urea nitroge n measurement (mass/volume)Ordered By: Ryan Ibrahim on 03-27-2022 Urea nitrogen [Mass/Vol] 11 mg/dL 9- [facility] Glucose Poct Glucometerson 1 05-27-2021 Commemt1 Glu2: Cleaned Meter [facility] Comment on above: Performed By: #### G LULS ####Point of Care testing, Commemt2 WILL NOTIFY DR/RN [facility] Comment on above: Result Comment: PERF ORMED BY:[address] [address] [address] [place], [place] [phone] MEDICAL DIRECTORKIMBERLYN SINGER M.D. Performed By: #### G LULS ####Point of Care testing, Glucose [Mass/Vol] 165 mg/dL [facility] Comment on above: Result Comment: [facility] Glucose Reference Range is dependent on time and content of last meal. Glucose of more than 200 mg/dL in a nonstressed, ambulatory subject supports the diagnosis of Diabetes Mellitus. Performed By: #### G LULS ####Point of Care testing, Commemt1 Glu2: Cleaned Meter [facility] Comment on above: Result Comment: PERF ORMED BY:[address] [address] [address] [place], [place] [phone] MEDICAL DIRECTORKIMBERLYN SINGER M.D. Performed By: #### G LULS ####Point of Care testing, Glucose [Mass/Vol] 147 mg/dL Normal [facility] Comment on above: Result Comment: [facility] Glucose Reference Range is dependent on time and content of last meal. Glucose of more than 200 mg/dL in a nonstressed, ambulatory subject supports the diagnosis of Diabetes Mellitus. Performed By: #### G LULS ####Point of Care testing, Glucose [Mass/Vol] 157 mg/dL Normal [facility] Comment on above: Result Comment: [facility] Glucose Reference Range is dependent on time and content of last meal. Glucose of more than 200 mg/dL in a nonstressed, ambulatory subject supports the diagnosis of Diabetes Mellitus.PERFORMED BY:[address] BALDERRAMARASHAUN, [place] [phone] MEDICAL DIRECTORKIMBERLYN SINGER M.D. Performed By: #### G LULS ####Point of Care testing, Commemt1 Glu2: Cleaned Meter Normal [facility] Comment on above: Result Comment: PERF ORMED BY:[address] [place]INSEBAG[place], [place] [phone] MEDICAL DIRECTORKIMBERLYN SINGER M.D. Performed By: #### G LULS ####Point of Care testing, Glucose [Mass/Vol] 232 mg/dL Normal [facility] Comment on above: Result Comment: [facility] Glucose Reference Range is dependent on time and content of last meal. Glucose of more than 200 mg/dL in a nonstressed, ambulatory subject supports the diagnosis of Diabetes Mellitus. Performed By: #### G LULS ####Point of Care testing, No Panel InformationOrdered By: Ryan Ibrahim on 03-26-2022 Bedside Glucose #[address]/christie [facility] XR shoulder LT min 2V*on XR shoulder LT min 2V* Normal [facility] Glucose Poct Glucometerson 1 05-26-2021 Glucose [Mass/Vol] 225 mg/dL Normal [facility] Comment on above: Result Comment: [facility] Glucose Reference Range is dependent on time and content of last meal. Glucose of more than 200 mg/dL in a nonstressed, ambulatory subject supports the diagnosis of Diabetes Mellitus.PERFORMED BY:[address] [address] [address] [place], [place] [phone] MEDICAL DIRECTORKIMBERLYN SINGER M.D. Performed By: #### G LULS ####Point of Care testing, Commemt1 Glu2: Cleaned Meter [facility] Comment on above: Performed By: #### G LULS ####Point of Care testing, Commemt2 WILL NOTIFY DR/RN [facility] Comment on above: Result Comment: PERF ORMED BY:[address] [address] [address] [place], [place] [phone] MEDICAL DIRECTORKIMBERLYN SINGER M.D. Performed By: #### G LULS ####Point of Care testing, Glucose [Mass/Vol] 152 mg/dL Normal [facility] Comment on above: Result Comment: [facility] Glucose Reference Range is dependent on time and content of last meal. Glucose of more than 200 mg/dL in a nonstressed, ambulatory subject supports the diagnosis of Diabetes Mellitus. Performed By: #### G LULS ####Point of Care testing, Commemt1 Glu2: Cleaned Meter [facility] Comment on above: Result Comment: PERF ORMED BY:[address] [address] [address] [place]KY[place], [place] [phone] MEDICAL DIRECTORKIMBERLYN SINGER M.D. Performed By: #### G LULS ####Point of Care testing, Glucose [Mass/Vol] 266 mg/dL Normal [facility] Comment on above: Result Comment: [place] [facility] Glucose Reference Range is dependent on time and content of last meal. Glucose of more than 200 mg/dL in a nonstressed, ambulatory subject supports the diagnosis of Diabetes Mellitus. Performed By: #### G LULS ####Point of Care testing, Commemt1 Glu2: Cleaned Meter [facility] Comment on above: Result Comment: PERF ORMED BY:[address] [address] [address] [place]AM[place]HAUN[place], [place] [phone] MEDICAL DIRECTORKIMBERLYN SINGER M.D. Performed By: #### G LULS ####Point of Care testing, Glucose [Mass/Vol] 174 mg/dL Normal [facility] Comment on above: Result Comment: [facility] Glucose Reference Range is dependent on time and content of last meal. Glucose of more than 200 mg/dL in a nonstressed, ambulatory subject supports the diagnosis of Diabetes Mellitus. Performed By: #### G LULS ####Point of Care testing, Glucose Poct Glucometerson 1 05-25-2021 Glucose [Mass/Vol] 170 mg/dL Normal [facility] Comment on above: Result Comment: [facility] Glucose Reference Range is dependent on time and content of last meal. Glucose of more than 200 mg/dL in a nonstressed, ambulatory subject supports the diagnosis of Diabetes Mellitus.PERFORMED BY:[address]AMARASHA[place], [place] [phone] MEDICAL DIRECTORKIMBERLYN SINGER M.D. Performed By: #### G LULS ####Point of Care testing, Commemt1 Glu2: Cleaned Meter [facility] Comment on above: Result Comment: PERF ORMED BY:[address] [address] [address] [place], [place] [phone] MEDICAL ANDRE SINGER M.D. Performed By: #### G LULS ####Point of Care testing, Glucose [Mass/Vol] 182 mg/dL Normal [facility] Comment on above: Result Comment: [place] [facility] Glucose Reference Range is dependent on time and content of last meal. Glucose of more than 200 mg/dL in a nonstressed, ambulatory subject supports the diagnosis of Diabetes Mellitus. Performed By: #### G LULS ####Point of Care testing, Commemt1 Glu2: Cleaned Meter [facility] Comment on above: Result Comment: PERF ORMED BY:[address]AMARASHAUN[place], [place] [phone] MEDICAL ANDRE SINGER M.D. Performed By: #### G LULS ####Point of Care testing, Glucose [Mass/Vol] 132 mg/dL Normal [facility] Comment on above: Result Comment: [facility] Glucose Reference Range is dependent on time and content of last meal. Glucose of more than 200 mg/dL in a nonstressed, ambulatory subject supports the diagnosis of Diabetes Mellitus. Performed By: #### G LULS ####Point of Care testing, Glucose [Mass/Vol] 208 mg/dL Normal [facility] Comment on above: Result Comment: [place] [facility] Glucose Reference Range is dependent on time and content of last meal. Glucose of more than 200 mg/dL in a nonstressed, ambulatory subject supports the diagnosis of Diabetes Mellitus.PERFORMED BY:[address] [address] [address] [place], [place] [phone] MEDICAL DIRECTORKIMBERLYN SINGER M.D. Performed By: #### G LULS ####Point of Care testing, Glucose Poct Glucometerson 1 05-24-2021 Commemt1 Glu2: Cleaned Meter Normal [facility] Comment on above: Result Comment: PERF ORMED BY:[address] [address] [address] [place], [place] [phone] MEDICAL DIRECTORKIMBERLYN SINGER M.D. Performed By: #### G LULS ####Point of Care testing, Glucose [Mass/Vol] 192 mg/dL Normal [facility] Comment on above: Result Comment: [place] [facility] Glucose Reference Range is dependent on time and content of last meal. Glucose of more than 200 mg/dL in a nonstressed, ambulatory subject supports the diagnosis of Diabetes Mellitus. Performed By: #### G LULS ####Point of Care testing, Glucose [Mass/Vol] 136 mg/dL Normal [facility] Comment on above: Result Comment: [place] [facility] Glucose Reference Range is dependent on time and content of last meal. Glucose of more than 200 mg/dL in a nonstressed, ambulatory subject supports the diagnosis of Diabetes Mellitus.PERFORMED BY:[address] [address] [address] [place], [place] [phone] MEDICAL DIRECTORKIMBERLYN SINGER M.D. Performed By: #### G LULS ####Point of Care testing, Glucose [Mass/Vol] 202 mg/dL Normal [facility] Comment on above: Result Comment: [place] Glucose Reference Range is dependent on time and content of last meal. Glucose of more than 200 mg/dL in a nonstressed, ambulatory subject supports the diagnosis of Diabetes Mellitus.PERFORMED BY:[address] [address] [address] [place], [place] [phone] MEDICAL DIRECTORKIMBERLYN SINGER M.D. Performed By: #### G LULS ####Point of Care testing, Glucose [Mass/Vol] 180 mg/dL Normal [facility] Comment on above: Result Comment: [facility] Glucose Reference Range is dependent on time and content of last meal. Glucose of more than 200 mg/dL in a nonstressed, ambulatory subject supports the diagnosis of Diabetes Mellitus.PERFORMED BY:[address] [address] [address] [place], [place] [phone] MEDICAL DIRECTORKIMBERLYN SINGER M.D. Performed By: #### G LULS ####Point of Care testing, Bacterial blood cultureOrder ed By: Tammy Smyth on 03-22-2022 Bacteria identified Cx Nom (Bld) Diptheroids [facility] Bacteria identified Cx Nom (Bld) Bacillus sp not B. anthracis [facility] Glucose Poct Glucometerson 1 05-23-2021 Glucose [Mass/Vol] 142 mg/dL Normal [facility] Comment on above: Result Comment: [place] Glucose Reference Range is dependent on time and content of last meal. Glucose of more than 200 mg/dL in a nonstressed, ambulatory subject supports the diagnosis of Diabetes Mellitus.PERFORMED BY:[place] [address] [address] [place], [place] [phone] MEDICAL DIRECTORKIMBERLYN SINGER M.D. Performed By: #### G LULS ####Point of Care testing, Commemt1 Glu2: Cleaned Meter Normal [facility] Comment on above: Result Comment: PERF ORMED BY:[facility] [place], [place] [phone] MEDICAL DIRECTORKIMBERLYN SINGER M.D. Performed By: #### G LULS ####Point of Care testing, Glucose [Mass/Vol] 185 mg/dL Normal [facility] Comment on above: Result Comment: [place] om Glucose Reference Range is dependent on time and content of last meal. Glucose of more than 200 mg/dL in a nonstressed, ambulatory subject supports the diagnosis of Diabetes Mellitus. Performed By: #### G LULS ####Point of Care testing, Commemt1 Glu2: Cleaned Meter Normal [facility] Comment on above: Result Comment: PERF ORMED BY:[place] [address] [address] [place], [place] [phone] MEDICAL ANDRE SINGER M.D. Performed By: #### G LULS ####Point of Care testing, Glucose [Mass/Vol] 206 mg/dL [facility] Comment on above: Result Comment: [place] om Glucose Reference Range is dependent on time and content of last meal. Glucose of more than 200 mg/dL in a nonstressed, ambulatory subject supports the diagnosis of Diabetes Mellitus. Performed By: #### G LULS ####Point of Care testing, Glucose [Mass/Vol] 247 mg/dL [facility] Comment on above: Result Comment: [place] om Glucose Reference Range is dependent on time and content of last meal. Glucose of more than 200 mg/dL in a nonstressed, ambulatory subject supports the diagnosis of Diabetes Mellitus.PERFORMED BY:[place] [address] [address] [place], [place] [phone] MEDICAL DIRECTORKIMBERLYN SINGER M.D. Performed By: #### G LULS ####Point of Care testing, Basic Metabolic Panel - Anion gap [Moles/Vol] 12.4 mmol/L Normal 6.0-15.0 [facility] Comment on above: Performed By: #### B MP ####[address] [address] [facility] Calcium [Mass/Vol] 8.6 mg/dL Normal 8.2-10.2 [facility] Comment on above: Performed By: #### B MP ####[place] [id number] [facility] Chloride [Moles/Vol] 96 mmol/L Normal 95-114 [facility] Comment on above: Performed By: #### B MP ####[place] [id number] [facility] CO2 [Moles/Vol] 27.7 mmol/L Normal 22.0-30.0 [facility] Comment on above: Performed By: #### B MP ####[place] [id number] [facility] Creatinine [Mass/Vol] 0.80 mg/dL Normal 0.44-1.03 [facility] Comment on above: Performed By: #### B MP ####[place] [id number] [facility] Creatinine Clr Calc Pharmacy 81.46 [facility] Comment on above: Result Comment: PERF ORMED BY:[address] [place]NHaroonTeeteeROG[place], [place] [phone] MEDICAL DIRECTORKIMBERLYN SINGER M.D. Performed By: #### B MP ####[address] [address] [facility] Estimated GFR ( Brenda > 60 [facility] Comment on above: Result Comment: GFR estimated reference range: According to KDOQI guidelines, <60 ml/min/1.73m2 is sufficient to diagnose a patient with chronic kidney disease. Performed By: #### B MP ####[place] [id number] [facility] Estimated GFR (Non- Am > 60 [facility] Comment on above: Performed By: #### B MP ####[place] [id number] [facility] Glucose [Mass/Vol] 192 mg/dL High 70-100 [facility] Comment on above: Result Comment: [facility] Glucose Reference Range is dependent on time and content of last meal. Glucose of more than 200 mg/dL in a nonstressed, ambulatory subject supports the diagnosis of Diabetes Mellitus. ADA recommended reference range Performed By: #### B MP ####[facility] [place] [address] [facility] Potassium [Moles/Vol] 4.1 mmol/L Normal 3.5-5.1 [facility] Comment on above: Performed By: #### B MP ####[facility] [place] [address] [facility] Sodium [Moles/Vol] 132 mmol/L Low 136-146 [facility] Comment on above: Performed By: #### B MP ####[facility] [place] [address] [facility] Urea nitrogen [Mass/Vol] 13 mg/dL Normal 9-23 [facility] Comment on above: Performed By: #### B MP ####[address] [address] [place] [address] [facility] Glucose Poct Glucometerson 1 05-22-2021 Glucose [Mass/Vol] 147 mg/dL Normal [facility] Comment on above: Result Comment: [facility] Glucose Reference Range is dependent on time and content of last meal. Glucose of more than 200 mg/dL in a nonstressed, ambulatory subject supports the diagnosis of Diabetes Mellitus.PERFORMED BY:[address] [address] [place], [place] [phone] MEDICAL ANDRE SINGER M.D. Performed By: #### G CHUCK ####Point of Care testing, Glucose [Mass/Vol] 150 mg/dL Normal [facility] Comment on above: Result Comment: [facility] Glucose Reference Range is dependent on time and content of last meal. Glucose of more than 200 mg/dL in a nonstressed, ambulatory subject supports the diagnosis of Diabetes Mellitus.PERFORMED BY:[place] [address] [place], [place] [phone] MEDICAL ANDRE SINGER M.D. Performed By: #### G LULS ####Point of Care testing, Commemt1 Glu2: Cleaned Meter Normal [facility] Comment on above: Result Comment: PERF ORMED BY:[address] [address] [place], [place] [phone] MEDICAL DIRECTORKIMBERLYN SINGER M.D. Performed By: #### G LULS ####Point of Care testing, Glucose [Mass/Vol] 250 mg/dL Normal [facility] Comment on above: Result Comment: [place] om Glucose Reference Range is dependent on time and content of last meal. Glucose of more than 200 mg/dL in a nonstressed, ambulatory subject supports the diagnosis of Diabetes Mellitus. Performed By: #### G LULS ####Point of Care testing, Glucose [Mass/Vol] 213 mg/dL Normal [facility] Comment on above: Result Comment: [place] om Glucose Reference Range is dependent on time and content of last meal. Glucose of more than 200 mg/dL in a nonstressed, ambulatory subject supports the diagnosis of Diabetes Mellitus.PERFORMED BY:[place] [address] [place], [place] [phone] MEDICAL DIRECTORKIMBERLYN SINGER M.D. Performed By: #### G LULS ####Point of Care testing, Urinalysison 03-21-2022 Appearance (U) Clear Normal Clear [facility] Comment on above: Order Comment: Name Collection Type:: Clean-Voided Midstream Performed By: #### U A ####[place] [id number] [facility] Bilirubin,Urine Negative Normal Negative [facility] Comment on above: Order Comment: Name Collection Type:: Clean-Voided Midstream Performed By: #### U A ####[address] [address] [facility] Color (U) Yellow Normal Yellow [facility] Comment on above: Order Comment: Name Collection Type:: Clean-Voided Midstream Performed By: #### U A ####[place] [id number] [facility] Glucose Ql (U) Normal Normal Normal [facility] Comment on above: Order Comment: Name Collection Type:: Clean-Voided Midstream Performed By: #### U A ####[address] [address] [facility] Ketones Ql (U) Negative Normal Negative [facility] Comment on above: Order Comment: Name Collection Type:: Clean-Voided Midstream Performed By: #### U A ####[address] [address] [facility] Leukocyte esterase Test strip Ql (U) Negative Normal Negative [facility] Comment on above: Order Comment: Name Collection Type:: Clean-Voided Midstream Performed By: #### U A ####[address] [address] [facility] Nitrite,Urine Negative Normal Negative [facility] Comment on above: Order Comment: Name Collection Type:: Clean-Voided Midstream Performed By: #### U A ####[address] [address] [facility] Occult Blood,Urine Negative Normal Negative [facility] Comment on above: Order Comment: Name Collection Type:: Clean-Voided Midstream Result Comment: PERF ORMED BY:[address] [place]NHaroonTeeteeR[place], [place] [phone] MEDICAL ANDRE SINGER M.D. Performed By: #### U A ####[address] [address] [facility] pH (U) 7.0 [pH] Normal 5.0-9.0 [facility] Comment on above: Order Comment: Name Collection Type:: Clean-Voided Midstream Performed By: #### U A ####[address] [address] [facility] Protein,Urine Negative Normal Negative [facility] Comment on above: Order Comment: Name Collection Type:: Clean-Voided Midstream Performed By: #### U A ####[address] [address] [facility] Specificy [place],Urine 1.005 Normal 1.00 1-1.03 0 [facility] Comment on above: Order Comment: Name Collection Type:: Clean-Voided Midstream Performed By: #### U A ####[facility] [address] [place] [address] [facility] Urobilinogen,Urine Normal Normal Normal [facility] Comment on above: Order Comment: Name Collection Type:: Clean-Voided Midstream Performed By: #### U A ####[facility] I[address] [place] [address] [facility] Albumin [Mass/volume] in Ser um or PlasmaOrdered By: Ronel Haney on 03-20-2022 Albumin [Mass/Vol] 2.8 g/dL 3.2-5.5 [facility] Anisocytosis LM Ql (Bld)Orde red By: Ronel Haney on 03-20-2022 Anisocytosis Ql (Bld) Slight [facility] Band form neutrophils/100 WB C Manual cnt (Bld)Ordered By: Ronel Haney on 03-20-2022 Band form neutrophils/100 WBC (Bld) 2 % 0-5 [facility] Basophils Auto (Bld) [#/Vol] Ordered By: oRnel Haney on 03-20-2022 Basophils (Bld) [#/Vol] N/A F [facility] Basophils/100 WBC Auto (Bld) Ordered By: Ronel Haney on 03-20-2022 Basophils/100 WBC (Bld) N/A F [facility] Bilirubin Test strip Ql (U)O rdered By: Ryan Ibrahim on 03-20-2022 Bilirubin Ql (U) Negative Negative [facility] Blood toxic granulation dete ction by light microscopyOrdered By: Ronel Haney on 03-20-2022 Toxic granules LM Ql (Bld) Slight [facility] Color Auto (U)Ordered By: Gabriela Ibrahim on 03-20-2022 Color (U) Yellow Yellow [facility] Comprehensive Metabolic Pane jeremy 03-20-2022 Albumin [Mass/Vol] 2.8 g/dL Low 3.2-5.5 [facility] Comment on above: Performed By: #### C MP, DIFF CBC, PAB ####[facility] [address] [place] [address] [facility] Albumin/Globulin [Mass ratio] 0.8 {ratio} Normal [facility] Comment on above: Performed By: #### C MP, DIFF CBC, PAB ####[facility] [address] [place] [address] [facility] ALP [Catalytic activity/Vol] 129 U/L High 32-92 [facility] Comment on above: Performed By: #### C MP, DIFF CBC, PAB ####[facility] [id number] [place] [address] [facility] ALT [Catalytic activity/Vol] 14 U/L Normal 10-60 [facility] Comment on above: Performed By: #### C MP, DIFF CBC, PAB ####[facility] S[address] [place] [address] [facility] Anion gap [Moles/Vol] 12.9 mmol/L Normal 6.0-15.0 [facility] Comment on above: Performed By: #### C MP, DIFF CBC, PAB ####[facility] [address] [place] [address] [facility] AST [Catalytic activity/Vol] 17 U/L Normal 10-42 [facility] Comment on above: Performed By: #### C MP, DIFF CBC, PAB ####[facility] [id number] [place] [address] [facility] Bilirubin [Mass/Vol] 0.6 mg/dL Normal 0.3-1.2 [facility] Comment on above: Performed By: #### C MP, DIFF CBC, PAB ####[facility] [id number] [place] [address] [place] Calcium [Mass/Vol] 8.3 mg/dL Normal 8.2-10.2 [facility] Comment on above: Performed By: #### C MP, DIFF CBC, PAB ####[facility] U[address] [place] [address] [place] Chloride [Moles/Vol] 94 mmol/L Low 95-114 [facility] Comment on above: Performed By: #### C MP, DIFF CBC, PAB ####[place] [address] [place] [id number] [facility] CO2 [Moles/Vol] 26.0 mmol/L Normal 22.0-30.0 [facility] Comment on above: Performed By: #### C MP, DIFF CBC, PAB ####[address] Creatinine [Mass/Vol] 0.90 mg/dL Normal 0.44-1.03 [facility] Comment on above: Performed By: #### C MP, DIFF CBC, PAB ####[address] Creatinine Clr Calc Pharmacy 72.41 [facility] Comment on above: Performed By: #### C MP, DIFF CBC, PAB ####[address] Estimated GFR ( Brenda > 60 [facility] Comment on above: Result Comment: GFR estimated reference range: According to KDOQI guidelines, <60 ml/min/1.73m2 is sufficient to diagnose a patient with chronic kidney disease. Performed By: #### C MP, DIFF CBC, PAB ####[address] Estimated GFR (Non- Am > 60 [facility] Comment on above: Performed By: #### C MP, DIFF CBC, PAB ####[place] [id number] [facility] Globulin (S) [Mass/Vol] 3.3 g/dL Normal [facility] Comment on above: Performed By: #### C MP, DIFF CBC, PAB ####[place] [address] [facility] Glucose [Mass/Vol] 229 mg/dL High 70-100 [facility] Comment on above: Result Comment: [place] Glucose Reference Range is dependent on time and content of last meal. Glucose of more than 200 mg/dL in a nonstressed, ambulatory subject supports the diagnosis of Diabetes Mellitus. ADA recommended reference range Performed By: #### C MP, DIFF CBC, PAB ####[place] [id number] [facility] Potassium [Moles/Vol] 3.9 mmol/L Normal 3.5-5.1 [facility] Comment on above: Performed By: #### C MP, DIFF CBC, PAB ####[place] [address] [facility] Protein [Mass/Vol] 6.1 g/dL Normal 6.1-7.9 [facility] Comment on above: Performed By: #### C MP, DIFF CBC, PAB ####[place] [address] [facility] Sodium [Moles/Vol] 129 mmol/L Low 136-146 [facility] Comment on above: Performed By: #### C MP, DIFF CBC, PAB ####[place] [address] [facility] Urea nitrogen [Mass/Vol] 12 mg/dL Normal 9- [facility] Comment on above: Performed By: #### C MP, DIFF CBC, PAB ####[place] [address] [facility] Diff and CBCon 03-20-2022 Anisocytosis Ql (Bld) Slight Normal [facility] Comment on above: Performed By: #### C MP, DIFF CBC, PAB ####[place] [address] [facility] Band form neutrophils/100 WBC (Bld) 2 % Normal 0-5 [facility] Comment on above: Performed By: #### C MP, DIFF CBC, PAB ####[place] [address] [facility] Eosinophils/100 WBC (Bld) 1 % Normal 1-3 [facility] Comment on above: Performed By: #### C MP, DIFF CBC, PAB ####[place] [id number] [facility] Erythrocyte distribution width (RBC) [Ratio] 15.9 % High 11.9-15.3 [facility] Comment on above: Performed By: #### C MP, DIFF CBC, PAB ####[address] Giant Platelet Tally 3 /100{WBC} Normal Fir [facility] Comment on above: Performed By: #### C MP, DIFF CBC, PAB ####[address] Hematocrit (Bld) [Volume fraction] 28.2 % Low 34.0-46.4 [facility] Comment on above: Performed By: #### C MP, DIFF CBC, PAB ####[address] Hemoglobin (Bld) [Mass/Vol] 9.4 g/dL Low 11.8-15.4 [facility] Comment on above: Performed By: #### C MP, DIFF CBC, PAB ####[address] Lymphocytes/100 WBC (Bld) 18 % Normal 18-42 [facility] Comment on above: Performed By: #### C MP, DIFF CBC, PAB ####[address] MCH (RBC) [Entitic mass] 30.6 pg Normal 24.7-34.3 [facility] Comment on above: Performed By: #### C MP, DIFF CBC, PAB ####[address] MCV (RBC) [Entitic vol] 91.5 fL Normal 80-100 F [facility] Comment on above: Performed By: #### C MP, DIFF CBC, PAB ####[address] Mean Corpuscular HGB Conc 33.5 g/dL Normal 32.0-35.0 [facility] Comment on above: Performed By: #### C MP, DIFF CBC, PAB ####[address] Metamyelocytes 2 % High 0-0 [facility] Comment on above: Performed By: #### C MP, DIFF CBC, PAB ####[address] [address] [facility] Microcytosis Slight Normal [facility] Comment on above: Performed By: #### C MP, DIFF CBC, PAB ####[address] [address] [facility] Monocytes/100 WBC (Bld) 6 % Normal 2-11 F [facility] Comment on above: Performed By: #### C MP, DIFF CBC, PAB ####[address] [address] [facility] Myelocytes 3 % High 0-0 [facility] Comment on above: Performed By: #### C MP, DIFF CBC, PAB ####[address] [address] [facility] Platelet Estimate Normal Normal Normal [facility] Comment on above: Performed By: #### C MP, DIFF CBC, PAB ####[address] [address] [facility] Platelet mean volume (Bld) [Entitic vol] 8.3 fL Normal 6.3-10.7 [facility] Comment on above: Result Comment: PERF ORMED BY:[address] [place], [place] [phone] MEDICAL DIRECTORKIMBERLYN SINGER M.D. Performed By: #### C MP, DIFF CBC, PAB ####[address] [address] [facility] Platelet Morphology Normal Normal Normal [facility] Comment on above: Result Comment: PERF ORMED BY:[address] [place]ILYNHaroonTeeteeR[place], [place] [phone] MEDICAL DIRECTORKIMBERLYN SINGER M.D. Performed By: #### C MP, DIFF CBC, PAB ####[address] [address] [place] Platelets (Bld) [#/Vol] 294 10*3/uL Normal 150-450 [facility] Comment on above: Performed By: #### C MP, DIFF CBC, PAB ####[facility] [id number] [place] [address] Polychromasia Slight Normal [facility] Comment on above: Performed By: #### C MP, DIFF CBC, PAB ####[address] RBC (Bld) [#/Vol] 3.08 10*6/uL Low 3.60-5.00 [facility] Comment on above: Performed By: #### C MP, DIFF CBC, PAB ####[address] Segmented neutrophils/100 WBC (Bld) 68 % Normal 50-70 [facility] Comment on above: Performed By: #### C MP, DIFF CBC, PAB ####[address] Toxic Granulation Slight Normal [facility] Comment on above: Performed By: #### C MP, DIFF CBC, PAB ####[address] WBC (Bld) [#/Vol] 8.0 10*3/uL Normal 3.8-11.6 [facility] Comment on above: Performed By: #### C MP, DIFF CBC, PAB ####[address] ECG 12 lead ECGon 03-20-2022 ECG 12 lead ECG Normal [facility] Eosinophils Auto (Bld) [#/Vo l]Ordered By: Ronel Haney on 03-20-2022 Eosinophils (Bld) [#/Vol] N/A [facility] Eosinophils/100 WBC Auto (Bl d)Ordered By: Ronel Haney on 03-20-2022 Eosinophils/100 WBC (Bld) N/A [facility] Eosinophils/100 WBC Manual c nt (Bld)Ordered By: Ronel Haney on 03-20-2022 Eosinophils/100 WBC (Bld) 1 % 1-3 [facility] Erythrocyte distribution wid th Auto (RBC) [Ratio]Ordered By: Ronel Haney on 03-20-2022 Erythrocyte distribution width (RBC) [Ratio] 15.9 % 11.9-15.3 [facility] Giant platelets/100 leukocyt es [Ratio] in Blood by Manual countOrdered By: Ronel Haney on 03-20-2022 Giant platelets/100 WBC Manual cnt (Bld) [Ratio] 3 /100{WBC} [facility] Globulin Calc (S) [Mass/Vol] Ordered By: Ronel Haney on 03-20-2022 Globulin (S) [Mass/Vol] 3.3 g/dL F [facility] Glucose Poct Glucometerson 1 05-21-2021 Glucose [Mass/Vol] 289 mg/dL Normal [facility] Comment on above: Result Comment: [facility] Glucose Reference Range is dependent on time and content of last meal. Glucose of more than 200 mg/dL in a nonstressed, ambulatory subject supports the diagnosis of Diabetes Mellitus.PERFORMED BY:[place] [address] [address] [place], [place] [phone] MEDICAL DIRECTORKIMBERLYN SINGER M.D. Performed By: #### G LULS ####Point of Care testing, Commemt1 Glu2: Cleaned Meter [facility] Comment on above: Result Comment: PERF ORMED BY:[address] [place], [place] [phone] MEDICAL DIRECTORKIMBERLYN SINGER M.D. Performed By: #### G LULS ####Point of Care testing, Glucose [Mass/Vol] 166 mg/dL Normal [facility] Comment on above: Result Comment: [facility] Glucose Reference Range is dependent on time and content of last meal. Glucose of more than 200 mg/dL in a nonstressed, ambulatory subject supports the diagnosis of Diabetes Mellitus. Performed By: #### G LULS ####Point of Care testing, Commemt1 Glu2: Cleaned Meter [facility] Comment on above: Result Comment: PERF ORMED BY:[address] [address] [address] [place], [place] [phone] MEDICAL DIRECTORKIMBERLYN SINGER M.D. Performed By: #### G LULS ####Point of Care testing, Glucose [Mass/Vol] 297 mg/dL Normal [facility] Comment on above: Result Comment: [place] Glucose Reference Range is dependent on time and content of last meal. Glucose of more than 200 mg/dL in a nonstressed, ambulatory subject supports the diagnosis of Diabetes Mellitus. Performed By: #### G LULS ####Point of Care testing, Commemt1 Glu2: Cleaned Meter Normal [facility] Comment on above: Result Comment: PERF ORMED BY:[address] HUIZARTeeteeRASHAUNDUBLIN, [place] [phone] MEDICAL DIRECTORKIMBERLYN SINGER M.D. Performed By: #### G LULS ####Point of Care testing, Glucose [Mass/Vol] 274 mg/dL Normal [facility] Comment on above: Result Comment: [facility] Glucose Reference Range is dependent on time and content of last meal. Glucose of more than 200 mg/dL in a nonstressed, ambulatory subject supports the diagnosis of Diabetes Mellitus. Performed By: #### G LULS ####Point of Care testing, Hematocrit Auto (Bld) [Volum e fraction]Ordered By: Ronel Haney on 03-20-2022 Hematocrit (Bld) [Volume fraction] 28.2 % 34.0-46.4 [facility] Hemoglobin [Mass/volume] in BloodOrdered By: Ronel Haney on 03-20-2022 Hemoglobin (Bld) [Mass/Vol] 9.4 g/dL 11.8-15.4 [facility] Ketones Auto test strip (U) [Mass/Vol]Ordered By: Ryan Ibrahim on 03-20-2022 Ketones (U) [Mass/Vol] Negative Negative [facility] Leukocytes [#/volume] correc negar for nucleated erythrocytes in Blood by Automated counOrdered By: Ronel Haney on 03-20-2022 WBC corrected for nucl RBC Auto (Bld) [#/Vol] 8.0 10*3/uL 3.8-11.6 [facility] Lymphocytes Auto (Bld) [#/Vo l]Ordered By: Ronel Haney on 03-20-2022 Lymphocytes (Bld) [#/Vol] N/A [facility] Lymphocytes/100 WBC Auto (Bl d)Ordered By: Ronel Haney on 03-20-2022 Lymphocytes/100 WBC (Bld) N/A [facility] Lymphocytes/100 WBC Manual c nt (Bld)Ordered By: Ronel Haney on 03-20-2022 Lymphocytes/100 WBC (Bld) 18 % 18-42 [facility] MCH Auto (RBC) [Entitic mass ]Ordered By: Ronel Haney on 03-20-2022 MCH (RBC) [Entitic mass] 30.6 pg 24.7-34.3 [facility] MCHC Auto (RBC) [Mass/Vol]Or dered By: Ronel Haney on 03-20-2022 MCHC (RBC) [Mass/Vol] 33.5 g/dL 32.0-35.0 [facility] MCV Auto (RBC) [Entitic vol] Ordered By: Ronel Haney on 03-20-2022 MCV (RBC) [Entitic vol] 91.5 fL 80-100 F [facility] Metamyelocytes/100 WBC Manua l cnt (Bld)Ordered By: Ronel Haney on 03-20-2022 Metamyelocytes/100 WBC (Bld) 2 % 0-0 [facility] Microcytes LM Ql (Bld)Ordere d By: Ronel Haney on 03-20-2022 Microcytes Ql (Bld) Slight [facility] Monocytes Auto (Bld) [#/Vol] Ordered By: Ronel Haney on 03-20-2022 Monocytes (Bld) [#/Vol] N/A F [facility] Monocytes/100 WBC Auto (Bld) Ordered By: Ronel Haney on 03-20-2022 Monocytes/100 WBC (Bld) N/A F [facility] Monocytes/100 WBC Manual cnt (Bld)Ordered By: Ronel Haney on 03-20-2022 Monocytes/100 WBC (Bld) 6 % 2-11 F [facility] Myelocytes/100 WBC Manual cn t (Bld)Ordered By: Ronel Haney on 03-20-2022 Myelocytes/100 WBC (Bld) 3 % 0-0 [facility] Neutrophils Auto (Bld) [#/Vo l]Ordered By: Ronel Haney on 03-20-2022 Neutrophils (Bld) [#/Vol] N/A [facility] Neutrophils/100 WBC Auto (Bl d)Ordered By: Ronel Haney on 03-20-2022 Neutrophils/100 WBC (Bld) N/A [facility] Nitrite Test strip Ql (U)Ord ered By: Ryan Ibrahim on 03-20-2022 Nitrite Ql (U) Negative Negative [facility] Nucleated erythrocytes [Pres ence] in Blood by Automated countOrdered By: Ronel Haney on 03-20-2022 Nucleated RBC Auto Ql (Bld) N/A [facility] Platelet adequacy [Presence] in Blood by Light microscopyOrdered By: Ronel Haney on 03-20-2022 Platelets LM Ql (Bld) Normal Normal [facility] Platelet mean volume Auto (B ld) [Entitic vol]Ordered By: Ronel Haney on 03-20-2022 Platelet mean volume (Bld) [Entitic vol] 8.3 fL 6.3-10.7 [facility] Platelet morphology finding [Identifier] in BloodOrdered By: Ronel Haney on 03-20-2022 Platelet morphology finding Nom (Bld) Normal Normal [facility] Platelets Auto (Bld) [#/Vol] Ordered By: Ronel Haney on 03-20-2022 Platelets (Bld) [#/Vol] 294 10*3/uL 150-450 [facility] Polychromasia [Presence] in Blood by Light microscopyOrdered By: Ronel Haney on 03-20-2022 Polychromasia LM Ql (Bld) Slight [facility] Prealbuminon 03-20-2022 Prealbumin [Mass/Vol] 13.7 mg/dL Low 18.0-38.0 [facility] Comment on above: Result Comment: PERF ORMED BY:[facility] [place], [place] [phone] MEDICAL DIRECTORKIMBERLYN SINGER M.D. Performed By: #### C MP, DIFF CBC, PAB ####[facility] [id number] [place] [address] [facility] Protein Auto test strip (U) [Mass/Vol]Ordered By: Ryan Ibrahim on 03-20-2022 Protein (U) [Mass/Vol] Negative Negative [facility] Protein [Mass/volume] in Ser um or PlasmaOrdered By: Ronel Haney on 03-20-2022 Protein [Mass/Vol] 6.1 g/dL 6.1-7.9 [facility] RBC Auto (Bld) [#/Vol]Ordere d By: oRnel Haney on 03-20-2022 RBC (Bld) [#/Vol] 3.08 10*6/uL 3.60-5.00 [facility] RBC morphologyOrdered By: Dalton Haney on 03-20-2022 RBC morphology finding Nom (Bld) N/A [facility] Segmented neutrophils/100 WB C Manual cnt (Bld)Ordered By: Ronel Haney on 03-20-2022 Segmented neutrophils/100 WBC (Bld) 68 % 50-70 [facility] Serum or plasma alanine larsen otransferase measurement without P-5'-P (enzymatic activiOrdered By: Ronel Haney on 03-20-2022 ALT No additional P-5'-P [Catalytic activity/Vol] 14 U/L 10-60 [facility] Serum or plasma albumin/glob ulin mass ratioOrdered By: Ronel Haney on 03-20-2022 Albumin/Globulin [Mass ratio] 0.8 {ratio} [facility] Serum or plasma alkaline ventura sphatase measurement (enzymatic activity/volume)Ordered By: Ronel Haney on 03-20-2022 ALP [Catalytic activity/Vol] 129 U/L 32-92 [facility] Serum or plasma aspartate am inotransferase measurement (enzymatic activity/volume)Ordered By: Ronel Haney on 03-20-2022 AST [Catalytic activity/Vol] 17 U/L 10-42 [facility] Serum or plasma prealbumin m easurement (mass/volume)Ordered By: Ronel Haney on 03-20-2022 Prealbumin [Mass/Vol] 13.7 mg/dL 18.0-38.0 [facility] Serum or plasma total biliru bin measurement (mass/volume)Ordered By: Ronel Haney on 03-20-2022 Bilirubin [Mass/Vol] 0.6 mg/dL 0.3-1.2 [facility] Specific gravity Auto test s trip (U) [Rel density]Ordered By: Ryan Ibrahim on 03-20-2022 Specific gravity (U) [Rel density] 1.005 1.001-1.03 0 [facility] Urine clarity by refractomet ry automatedOrdered By: Ryan Ibrahim on 03-20-2022 Clarity Refractometry automated (U) Clear Clear [facility] Urine glucose measurement by automated test strip (mass/volume)Ordered By: Ryan Ibrahim on 03-20-2022 Glucose Auto test strip (U) [Mass/Vol] Normal mg/dL Normal [facility] Urine hemoglobin detection b y automated test stripOrdered By: Ryan Ibrahim on 03-20-2022 Hemoglobin Auto test strip Ql (U) Negative Negative [facility] Urine leukocyte esterase det ection by automated test stripOrdered By: Ryan Ibrahim on 03-20-2022 Leukocyte esterase Auto test strip Ql (U) Negative Negative [facility] Urobilinogen Auto test strip (U) [Mass/Vol]Ordered By: Ryan Ibrahim on 03-20-2022 Urobilinogen (U) [Mass/Vol] Normal mg/dL Normal [facility] WBC Auto (Bld) [#/Vol]Ordere d By: Ronel Haney on 03-20-2022 WBC (Bld) [#/Vol] 8.0 10*3/uL 3.8-11.6 [facility] pH Auto test strip (U)Ordere d By: Ryan Ibrahim on 03-20-2022 pH (U) 7.0 [pH] 5.0-9.0 [facility] Anisocytosis LM Ql (Bld)Orde red By: Nicolasajer Hull on 03-19-2022 Anisocytosis Ql (Bld) Slight [facility] Band form neutrophils/100 WB C Manual cnt (Bld)Ordered By: Nicolasa Hull on 03-19-2022 Band form neutrophils/100 WBC (Bld) 6 % 0-5 [facility] Basic Metabolic Panelon 03-08 Anion gap [Moles/Vol] 11.8 mmol/L Normal 6.0-15.0 [facility] Comment on above: Performed By: #### D IFF CBC, CBC, BMP ####[facility] [id number] [place] [address] [facility] Calcium [Mass/Vol] 8.3 mg/dL Normal 8.2-10.2 [facility] Comment on above: Performed By: #### D IFF CBC, CBC, BMP ####[address] [place] [address] [facility] Chloride [Moles/Vol] 97 mmol/L Normal 95-114 [facility] Comment on above: Performed By: #### D IFF CBC, CBC, BMP ####[address] [place] [address] [facility] CO2 [Moles/Vol] 28.2 mmol/L Normal 22.0-30.0 [facility] Comment on above: Performed By: #### D IFF CBC, CBC, BMP ####[address] [place] [address] [facility] Creatinine [Mass/Vol] 0.73 mg/dL Normal 0.44-1.03 [facility] Comment on above: Performed By: #### D IFF CBC, CBC, BMP ####[facility] [id number] [place] [address] [place] Creatinine Clr Calc Pharmacy 73.96 Normal [facility] Comment on above: Result Comment: PERF ORMED BY:[address] [place], [place] [phone] MEDICAL DIRECTORKIMBERLYN SINGER M.D. Performed By: #### D IFF CBC, CBC, BMP ####[facility] [place] [address] [facility] Estimated GFR ( Brenda > 60 Normal [facility] Comment on above: Result Comment: GFR estimated reference range: According to KDOQI guidelines, <60 ml/min/1.73m2 is sufficient to diagnose a patient with chronic kidney disease. Performed By: #### D IFF CBC, CBC, BMP ####[address] [place] [id number] [facility] Estimated GFR (Non- Am > 60 [facility] Comment on above: Performed By: #### D IFF CBC, CBC, BMP ####[address] [place] [address] [facility] Glucose [Mass/Vol] 186 mg/dL High 70-100 [facility] Comment on above: Result Comment: [place] Glucose Reference Range is dependent on time and content of last meal. Glucose of more than 200 mg/dL in a nonstressed, ambulatory subject supports the diagnosis of Diabetes Mellitus. ADA recommended reference range Performed By: #### D IFF CBC, CBC, BMP ####[address] [place] [address] [facility] Potassium [Moles/Vol] 4.0 mmol/L Normal 3.5-5.1 [facility] Comment on above: Performed By: #### D IFF CBC, CBC, BMP ####[address] [place] [address] [facility] Sodium [Moles/Vol] 133 mmol/L Low 136-146 [facility] Comment on above: Performed By: #### D IFF CBC, CBC, BMP ####[address] [place] [address] [facility] Urea nitrogen [Mass/Vol] 10 mg/dL Normal 9-23 [facility] Comment on above: Performed By: #### D IFF CBC, CBC, BMP ####[facility] [id number] [place] [address] [facility] Basophils Auto (Bld) [#/Vol] Ordered By: Nicolasa Hull on 03-19-2022 Basophils (Bld) [#/Vol] N/A F [facility] Basophils/100 WBC Auto (Bld) Ordered By: Nicolasa Hull on 03-19-2022 Basophils/100 WBC (Bld) N/A F [facility] Complete Blood Count Auto Di ffon 03-19-2022 Erythrocyte distribution width (RBC) [Ratio] 15.9 % High 11.9-15.3 [facility] Comment on above: Performed By: #### D IFF CBC, CBC, BMP ####[address] Hematocrit (Bld) [Volume fraction] 24.6 % Low 34.0-46.4 [facility] Comment on above: Performed By: #### D IFF CBC, CBC, BMP ####[address] Hemoglobin (Bld) [Mass/Vol] 8.4 g/dL Low 11.8-15.4 [facility] Comment on above: Performed By: #### D IFF CBC, CBC, BMP ####[place] [id number] [facility] MCH (RBC) [Entitic mass] 31.0 pg Normal 24.7-34.3 [facility] Comment on above: Performed By: #### D IFF CBC, CBC, BMP ####[place] [id number] [facility] MCV (RBC) [Entitic vol] 90.8 fL Normal 80-100 F [facility] Comment on above: Performed By: #### D IFF CBC, CBC, BMP ####[place] [id number] [facility] Mean Corpuscular HGB Conc 34.1 g/dL Normal 32.0-35.0 [facility] Comment on above: Performed By: #### D IFF CBC, CBC, BMP ####[place] [id number] [facility] Platelet mean volume (Bld) [Entitic vol] 8.9 fL Normal 6.3-10.7 [facility] Comment on above: Result Comment: PERF ORMED BY:[facility] [place], [place] [phone] MEDICAL DIRECTORKIMBERLYN SINGER M.D. Performed By: #### D IFF CBC, CBC, BMP ####[facility] [id number] [place] [address] [place] Platelets (Bld) [#/Vol] 293 10*3/uL Normal 150-450 [facility] Comment on above: Performed By: #### D IFF CBC, CBC, BMP ####[address] [place] [address] [facility] RBC (Bld) [#/Vol] 2.71 10*6/uL Low 3.60-5.00 [facility] Comment on above: Performed By: #### D IFF CBC, CBC, BMP ####[address] [place] [address] [facility] WBC (Bld) [#/Vol] 8.0 10*3/uL Normal 3.8-11.6 [facility] Comment on above: Performed By: #### D IFF CBC, CBC, BMP ####[address] [address] [facility] Creatinine and Glomerular fi ltration rate.predicted panel (S/P/Bld)Ordered By: Nicolasa Hull on 03-19-2022 Creatinine [Mass/Vol] 0.73 mg/dL 0.44-1.03 [facility] Diff and CBCon 03-19-2022 Anisocytosis Ql (Bld) Slight Normal [facility] Comment on above: Performed By: #### D IFF CBC, CBC, BMP ####[address] [place] [address] [place] Band form neutrophils/100 WBC (Bld) 6 % High 0-5 [facility] Comment on above: Performed By: #### D IFF CBC, CBC, BMP ####[address] [place] [address] [place] Eosinophils/100 WBC (Bld) 1 % Normal 1-3 [facility] Comment on above: Performed By: #### D IFF CBC, CBC, BMP ####[facility] [id number] [place] [address] [facility] Giant Platelet Tally 1 /100{WBC} Normal [facility] Comment on above: Performed By: #### D IFF CBC, CBC, BMP ####[facility] [id number] [place] [address] [place] Lymphocytes/100 WBC (Bld) 22 % Normal 18-42 [facility] Comment on above: Performed By: #### D IFF CBC, CBC, BMP ####[facility] [id number] [place] [address] [facility] Metamyelocytes 2 % High 0-0 [facility] Comment on above: Performed By: #### D IFF CBC, CBC, BMP ####[address] [place] [address] [facility] Monocytes/100 WBC (Bld) 6 % Normal 2-11 [facility] Comment on above: Performed By: #### D IFF CBC, CBC, BMP ####[facility] [id number] [place] [address] [facility] Myelocytes 4 % High 0-0 [facility] Comment on above: Performed By: #### D IFF CBC, CBC, BMP ####[facility] [id number] [place] [address] [facility] Nucleated Red Blood Cell 1 /100{WBC} High 0-0 [facility] Comment on above: Performed By: #### D IFF CBC, CBC, BMP ####[facility] [id number] [place] [address] [facility] Platelet Estimate Normal Normal Normal [facility] Comment on above: Performed By: #### D IFF CBC, CBC, BMP ####[facility] [id number] [place] [address] [facility] Platelet Morphology Normal Normal Normal [facility] Comment on above: Result Comment: PERF ORMED BY:[address] [place], [place] [phone] MEDICAL DIRECTORKIMBERLYN SINGER M.D. Performed By: #### D IFF CBC, CBC, BMP ####[facility] [id number] Polychromasia Slight Normal [facility] Comment on above: Performed By: #### D IFF CBC, CBC, BMP ####[facility] [id number] [place] [address] [facility] Segmented neutrophils/100 WBC (Bld) 60 % Normal 50-70 [facility] Comment on above: Performed By: #### D IFF CBC, CBC, BMP ####[facility] [id number] [place] [address] [facility] Eosinophils Auto (Bld) [#/Vo l]Ordered By: Nicolasa Hull on 03-19-2022 Eosinophils (Bld) [#/Vol] N/A [facility] Eosinophils/100 WBC Auto (Bl d)Ordered By: Nicolasa Hull on 03-19-2022 Eosinophils/100 WBC (Bld) N/A [facility] Eosinophils/100 WBC Manual c nt (Bld)Ordered By: Nicolasa Hull on 03-19-2022 Eosinophils/100 WBC (Bld) 1 % 1-3 [facility] Erythrocyte distribution wid th Auto (RBC) [Ratio]Ordered By: Nicolasa Hull on 03-19-2022 Erythrocyte distribution width (RBC) [Ratio] 15.9 % 11.9-15.3 [facility] Estimated glomerular filtrat ion rate (GFR) non- AmericanOrdered By: Nicolasa Hull on 03-19-2022 GFR/1.73 sq M.predicted among non-blacks MDRD (S/P/Bld) [Vol rate/Area] > 60 mL/Min [facility] Giant platelets/100 leukocyt es [Ratio] in Blood by Manual countOrdered By: Nicolasa Hull on 03-19-2022 Giant platelets/100 WBC Manual cnt (Bld) [Ratio] 1 /100{WBC} [facility] Glucose Glucometer (BldC) [M ass/Vol]Ordered By: Navarro Cota on 03-19-2022 Glucose [Mass/Vol] 310 mg/dL [facility] Comment on above: Random Glucose Refer ence Range is dependent on time and content of last meal. Glucose of more than 200 mg/dL in a nonstressed, ambulatory subject supports the diagnosis of Diabetes Mellitus. Glucose Poct Glucometerson 1 05-20-2021 Commemt1 Glu2: Cleaned Meter [facility] Comment on above: Result Comment: PERF ORMED BY:[address] [place] [place], [place] [phone] MEDICAL DIRECTORKIMBERLYN SINGER M.D. Performed By: #### G LULS ####Point of Care testing, Glucose [Mass/Vol] 253 mg/dL Normal [facility] Comment on above: Result Comment: [place] [facility] Glucose Reference Range is dependent on time and content of last meal. Glucose of more than 200 mg/dL in a nonstressed, ambulatory subject supports the diagnosis of Diabetes Mellitus. Performed By: #### G LULS ####Point of Care testing, Glucose [Mass/Vol] 152 mg/dL Normal [facility] Comment on above: Result Comment: [place] [facility] Glucose Reference Range is dependent on time and content of last meal. Glucose of more than 200 mg/dL in a nonstressed, ambulatory subject supports the diagnosis of Diabetes Mellitus.PERFORMED BY:[address] [place], [place] [phone] MEDICAL ANDRE SINGER M.D. Performed By: #### G LULS ####Point of Care testing, Commemt1 Glu2: Cleaned Meter [facility] Comment on above: Result Comment: PERF ORMED BY:[address] [place] [place], [place] [phone] MEDICAL DIRECTORKIMBERLYN SINGER M.D. Performed By: #### G LULS ####Point of Care testing, Glucose [Mass/Vol] 310 mg/dL Normal [facility] Comment on above: Result Comment: [place] [facility] Glucose Reference Range is dependent on time and content of last meal. Glucose of more than 200 mg/dL in a nonstressed, ambulatory subject supports the diagnosis of Diabetes Mellitus. Performed By: #### G LULS ####Point of Care testing, Glucose [Mass/Vol] 195 mg/dL Normal [facility] Comment on above: Result Comment: [facility] Glucose Reference Range is dependent on time and content of last meal. Glucose of more than 200 mg/dL in a nonstressed, ambulatory subject supports the diagnosis of Diabetes Mellitus.PERFORMED BY:[id number] [place], [place] [phone] MEDICAL DIRECTORKIMBERLYN SINGER M.D. Performed By: #### G LULS ####Point of Care testing, Hematocrit Auto (Bld) [Volum e fraction]Ordered By: Nicolasa Hull on 03-19-2022 Hematocrit (Bld) [Volume fraction] 24.6 % 34.0-46.4 [facility] Hemoglobin [Mass/volume] in BloodOrdered By: Nicolasa Hull on 03-19-2022 Hemoglobin (Bld) [Mass/Vol] 8.4 g/dL 11.8-15.4 [facility] Leukocytes [#/volume] correc negar for nucleated erythrocytes in Blood by Automated counOrdered By: Nicolasa Hull on 03-19-2022 WBC corrected for nucl RBC Auto (Bld) [#/Vol] 8.0 10*3/uL 3.8-11.6 [facility] Lymphocytes Auto (Bld) [#/Vo l]Ordered By: Nicolasa Hull on 03-19-2022 Lymphocytes (Bld) [#/Vol] N/A [facility] Lymphocytes/100 WBC Auto (Bl d)Ordered By: Nicolasa Hull on 03-19-2022 Lymphocytes/100 WBC (Bld) N/A [facility] Lymphocytes/100 WBC Manual c nt (Bld)Ordered By: Nicolasa Hull on 03-19-2022 Lymphocytes/100 WBC (Bld) 22 % 18-42 [facility] MCH Auto (RBC) [Entitic mass ]Ordered By: Nicolasa Hull on 03-19-2022 MCH (RBC) [Entitic mass] 31.0 pg 24.7-34.3 [facility] MCHC Auto (RBC) [Mass/Vol]Or dered By: Nicolasa Hull on 03-19-2022 MCHC (RBC) [Mass/Vol] 34.1 g/dL 32.0-35.0 [facility] MCV Auto (RBC) [Entitic vol] Ordered By: Nicolasa Hull on 03-19-2022 MCV (RBC) [Entitic vol] 90.8 fL 80-100 F [facility] Metamyelocytes/100 WBC Manua l cnt (Bld)Ordered By: Nicolasa Hull on 03-19-2022 Metamyelocytes/100 WBC (Bld) 2 % 0-0 [facility] Monocytes Auto (Bld) [#/Vol] Ordered By: Nicolasa Hull on 03-19-2022 Monocytes (Bld) [#/Vol] N/A F [facility] Monocytes/100 WBC Auto (Bld) Ordered By: Nicolasa Hull on 03-19-2022 Monocytes/100 WBC (Bld) N/A F [facility] Monocytes/100 WBC Manual cnt (Bld)Ordered By: Nicolasa Hull on 03-19-2022 Monocytes/100 WBC (Bld) 6 % 2-11 F [facility] Myelocytes/100 WBC Manual cn t (Bld)Ordered By: Nicolasa Hull on 03-19-2022 Myelocytes/100 WBC (Bld) 4 % 0-0 [facility] Neutrophils Auto (Bld) [#/Vo l]Ordered By: Nicolasa Hull on 03-19-2022 Neutrophils (Bld) [#/Vol] N/A [facility] Neutrophils/100 WBC Auto (Bl d)Ordered By: Nicolasa Hull on 03-19-2022 Neutrophils/100 WBC (Bld) N/A [facility] No Panel InformationOrdered By: Navarro Cota on 03-19-2022 Bedside Glucose Comment Glu2: cleaned meter [facility] No Panel InformationOrdered By: Nicolasa Hull on 03-19-2022 Estimated GFR () > 60 mL/Min [facility] Comment on above: GFR estimated refere nce range: According to KDOQI guidelines, <60 ml/min/1.73m2 is sufficient to diagnose a patient with chronic kidney disease. Pharmacy Creatinine Clearance (Chem 73.96 [facility] Nucleated RBC/100 WBC Manual cnt (Bld) [Ratio]Ordered By: Nicolasa Hull on 03-19-2022 Nucleated RBC/100 WBC (Bld) [Ratio] 1 /100{WBC} 0-0 [facility] Nucleated erythrocytes [Pres ence] in Blood by Automated countOrdered By: Nicolasa Hull on 03-19-2022 Nucleated RBC Auto Ql (Bld) N/A [facility] Platelet adequacy [Presence] in Blood by Light microscopyOrdered By: Nicolasa Hull on 03-19-2022 Platelets LM Ql (Bld) Normal Normal [facility] Platelet mean volume Auto (B ld) [Entitic vol]Ordered By: Nicolasa Hull on 03-19-2022 Platelet mean volume (Bld) [Entitic vol] 8.9 fL 6.3-10.7 [facility] Platelet morphology finding [Identifier] in BloodOrdered By: Nicolasa Hull on 03-19-2022 Platelet morphology finding Nom (Bld) Normal Normal [facility] Platelets Auto (Bld) [#/Vol] Ordered By: Nicolasa Hull on 03-19-2022 Platelets (Bld) [#/Vol] 293 10*3/uL 150-450 [facility] Polychromasia [Presence] in Blood by Light microscopyOrdered By: Nicolasa Hull on 03-19-2022 Polychromasia LM Ql (Bld) Slight [facility] RBC Auto (Bld) [#/Vol]Ordere d By: Nicolasa Hull on 03-19-2022 RBC (Bld) [#/Vol] 2.71 10*6/uL 3.60-5.00 [facility] RBC morphologyOrdered By: Marva Hull on 03-19-2022 RBC morphology finding Nom (Bld) N/A [facility] Segmented neutrophils/100 WB C Manual cnt (Bld)Ordered By: Nicolasa Hull on 03-19-2022 Segmented neutrophils/100 WBC (Bld) 60 % 50-70 [facility] Serum or plasma anion gap de terminationOrdered By: Nicolasa Hull on 03-19-2022 Anion gap [Moles/Vol] 11.8 mmol/L 6.0-15.0 [facility] Serum or plasma calcium john urement (mass/volume)Ordered By: Nicolasa Hull on 03-19-2022 Calcium [Mass/Vol] 8.3 mg/dL 8.2-10.2 [facility] Serum or plasma chloride tressa surement (moles/volume)Ordered By: Nicolasa Hull on 03-19-2022 Chloride [Moles/Vol] 97 mmol/L 95-114 [facility] Serum or plasma glucose john urement (mass/volume)Ordered By: Nicolasa Hull on 03-19-2022 Glucose [Mass/Vol] 186 mg/dL 70-100 [facility] Comment on above: ADA recommended refe rence rangeRandom Glucose Reference Range is dependent on time and content of last meal. Glucose of more than 200 mg/dL in a nonstressed, ambulatory subject supports the diagnosis of Diabetes Mellitus. Serum or plasma potassium me asurement (moles/volume)Ordered By: Nicolasa Hull on 03-19-2022 Potassium [Moles/Vol] 4.0 mmol/L 3.5-5.1 [facility] Serum or plasma sodium measu rement (moles/volume)Ordered By: Nicolasa Hull on 03-19-2022 Sodium [Moles/Vol] 133 mmol/L 136-146 [facility] Serum or plasma total carbon dioxide measurement (moles/volume)Ordered By: Nicolasa Hull on 03-19-2022 CO2 [Moles/Vol] 28.2 mmol/L 22.0-30.0 [facility] Serum or plasma urea nitroge n measurement (mass/volume)Ordered By: Nicolasa Hull on 03-19-2022 Urea nitrogen [Mass/Vol] 10 mg/dL 9-23 [facility] WBC Auto (Bld) [#/Vol]Ordere d By: Nicolasa Hull on 03-19-2022 WBC (Bld) [#/Vol] 8.0 10*3/uL 3.8-11.6 [facility] XR shoulder LT min 2V*on XR shoulder LT min 2V* Normal [facility] Basic Metabolic Panelon 12- Anion gap [Moles/Vol] 11.2 mmol/L Normal 6.0-15.0 [facility] Comment on above: Performed By: #### B MP, CBC ####[facility] [id number] [place] [address] [facility] Calcium [Mass/Vol] 8.1 mg/dL Low 8.2-10.2 [facility] Comment on above: Performed By: #### B MP, CBC ####[facility] [address] [place] [address] [facility] Chloride [Moles/Vol] 97 mmol/L Normal 95-114 [facility] Comment on above: Performed By: #### B MP, CBC ####[address] [place] [address] [facility] CO2 [Moles/Vol] 26.7 mmol/L Normal 22.0-30.0 [facility] Comment on above: Performed By: #### B MP, CBC ####[address] [place] [address] [facility] Creatinine [Mass/Vol] 0.75 mg/dL Normal 0.44-1.03 [facility] Comment on above: Performed By: #### B MP, CBC ####[address] [place] [address] [place] Creatinine Clr Calc Pharmacy 73.79 [facility] Comment on above: Result Comment: PERF ORMED BY:[address] [place], [place] [phone] MEDICAL DIRECTORKIMBERLYN SINGER M.D. Performed By: #### B MP, CBC ####[address] [address] [facility] Estimated GFR ( Brenda > 60 Normal [facility] Comment on above: Result Comment: GFR estimated reference range: According to KDOQI guidelines, <60 ml/min/1.73m2 is sufficient to diagnose a patient with chronic kidney disease. Performed By: #### B MP, CBC ####[address] [place] [address] [facility] Estimated GFR (Non- Am > 60 Normal [facility] Comment on above: Performed By: #### B MP, CBC ####[address] [place] [id number] [facility] Glucose [Mass/Vol] 176 mg/dL High 70-100 [facility] Comment on above: Result Comment: [place] Glucose Reference Range is dependent on time and content of last meal. Glucose of more than 200 mg/dL in a nonstressed, ambulatory subject supports the diagnosis of Diabetes Mellitus. ADA recommended reference range Performed By: #### B MP, CBC ####[address] Potassium [Moles/Vol] 3.9 mmol/L Normal 3.5-5.1 [facility] Comment on above: Performed By: #### B MP, CBC ####[address] Sodium [Moles/Vol] 131 mmol/L Low 136-146 [facility] Comment on above: Performed By: #### B MP, CBC ####[place] [id number] [facility] Urea nitrogen [Mass/Vol] 7 mg/dL Low 9-23 [facility] Comment on above: Performed By: #### B MP, CBC ####[address] [id number] [facility] Complete Blood Count Auto Di ffon 03-18-2022 Basophils (Bld) [#/Vol] 0.1 10*3/uL Normal 0.0-0.2 [facility] Comment on above: Result Comment: PERF ORMED BY:[address] [place], [place] [phone] MEDICAL ANDRE SINGER M.D. Performed By: #### B MP, CBC ####[place] [id number] [place] Basophils/100 WBC (Bld) 0.8 % Normal . [facility] Comment on above: Performed By: #### B MP, CBC ####[address] Eosinophils (Bld) [#/Vol] 0.3 10*3/uL Normal 0.0-0.45 [facility] Comment on above: Performed By: #### B MP, CBC ####[place] [id number] [facility] Eosinophils/100 WBC (Bld) 3.2 % Normal . [facility] Comment on above: Performed By: #### B MP, CBC ####[address] Erythrocyte distribution width (RBC) [Ratio] 15.8 % High 11.9-15.3 [facility] Comment on above: Performed By: #### B MP, CBC ####[address] Hematocrit (Bld) [Volume fraction] 26.2 % Low 34.0-46.4 [facility] Comment on above: Performed By: #### B MP, CBC ####[address] Hemoglobin (Bld) [Mass/Vol] 8.7 g/dL Low 11.8-15.4 [facility] Comment on above: Performed By: #### B MP, CBC ####[address] Lymphocytes (Bld) [#/Vol] 2.6 10*3/uL Normal 1.00-4.8 [facility] Comment on above: Performed By: #### B MP, CBC ####[place] [id number] [facility] Lymphocytes/100 WBC (Bld) 31.5 % Normal . [facility] Comment on above: Performed By: #### B MP, CBC ####[address] [id number] [facility] MCH (RBC) [Entitic mass] 30.4 pg Normal 24.7-34.3 [facility] Comment on above: Performed By: #### B MP, CBC ####[place] [place] [id number] [facility] MCV (RBC) [Entitic vol] 91.0 fL Normal 80-100 [facility] Comment on above: Performed By: #### B MP, CBC ####[place] [id number] [facility] Mean Corpuscular HGB Conc 33.4 g/dL Normal 32.0-35.0 [facility] Comment on above: Performed By: #### B MP, CBC ####[address] Monocytes (Bld) [#/Vol] 0.7 10*3/uL Normal 0.0-0.8 [facility] Comment on above: Performed By: #### B MP, CBC ####[place] [place] [id number] [facility] Monocytes/100 WBC (Bld) 8.4 % Normal . [facility] Comment on above: Performed By: #### B MP, CBC ####[place] [id number] [facility] Neutrophils (Bld) [#/Vol] 4.7 10*3/uL Normal 1.8-7.7 [facility] Comment on above: Performed By: #### B MP, CBC ####[place] [id number] [facility] Neutrophils/100 WBC (Bld) 56.1 % Normal . [facility] Comment on above: Performed By: #### B MP, CBC ####[place] [id number] [facility] NRBC% 0.1 /100{WBC} Normal 0-0.5 [facility] Comment on above: Performed By: #### B MP, CBC ####[place] [id number] [facility] Platelet mean volume (Bld) [Entitic vol] 8.1 fL Normal 6.3-10.7 [facility] Comment on above: Performed By: #### B MP, CBC ####[address] [place] [address] [facility] Platelets (Bld) [#/Vol] 286 10*3/uL Normal 150-450 [facility] Comment on above: Performed By: #### B MP, CBC ####[address] [place] [address] [facility] RBC (Bld) [#/Vol] 2.88 10*6/uL Low 3.60-5.00 [facility] Comment on above: Performed By: #### B MP, CBC ####[address] [place] [address] [facility] WBC (Bld) [#/Vol] 8.4 10*3/uL Normal 3.8-11.6 [facility] Comment on above: Performed By: #### B MP, CBC ####[address] [address] [facility] Glucose Poct Glucometerson 1 05-19-2021 Glucose [Mass/Vol] 223 mg/dL Normal [facility] Comment on above: Result Comment: [facility] Glucose Reference Range is dependent on time and content of last meal. Glucose of more than 200 mg/dL in a nonstressed, ambulatory subject supports the diagnosis of Diabetes Mellitus.PERFORMED BY:[address] [place], [place] [phone] MEDICAL ANDRE SINGER M.D. Performed By: #### G LULS ####Point of Care testing, Glucose [Mass/Vol] 259 mg/dL Normal [facility] Comment on above: Result Comment: [facility] Glucose Reference Range is dependent on time and content of last meal. Glucose of more than 200 mg/dL in a nonstressed, ambulatory subject supports the diagnosis of Diabetes Mellitus.PERFORMED BY:[address] [place], [place] [phone] MEDICAL ANDRE SINGER M.D. Performed By: #### G LULS ####Point of Care testing, Glucose [Mass/Vol] 261 mg/dL Normal [facility] Comment on above: Result Comment: [facility] Glucose Reference Range is dependent on time and content of last meal. Glucose of more than 200 mg/dL in a nonstressed, ambulatory subject supports the diagnosis of Diabetes Mellitus.PERFORMED BY:[address] [place], [place] [phone] MEDICAL DIRECTORKIMBERLYN SINGER M.D. Performed By: #### G LULS ####Point of Care testing, Glucose [Mass/Vol] 186 mg/dL Normal [facility] Comment on above: Result Comment: [facility] Glucose Reference Range is dependent on time and content of last meal. Glucose of more than 200 mg/dL in a nonstressed, ambulatory subject supports the diagnosis of Diabetes Mellitus.PERFORMED BY:[address] [place], [place] [phone] MEDICAL DIRECTORKIMBERLYN SINGER M.D. Performed By: #### G LULS ####Point of Care testing, Basic Metabolic Panelon 12-1 Anion gap [Moles/Vol] 8.5 mmol/L Normal 6.0-15.0 [facility] Comment on above: Performed By: #### D IFF CBC, BMP ####[address] [place] [address] [place] Calcium [Mass/Vol] 8.1 mg/dL Low 8.2-10.2 [facility] Comment on above: Performed By: #### D IFF CBC, BMP ####[facility] [place] [address] [place] Chloride [Moles/Vol] 100 mmol/L Normal 95-114 [facility] Comment on above: Performed By: #### D IFF CBC, BMP ####[facility] [place] [address] [place] CO2 [Moles/Vol] 27.1 mmol/L Normal 22.0-30.0 [facility] Comment on above: Performed By: #### D IFF CBC, BMP ####[facility] [address] [place] [address] [facility] Creatinine [Mass/Vol] 0.71 mg/dL Normal 0.44-1.03 [facility] Comment on above: Performed By: #### D IFF CBC, BMP ####[address] [place] [address] [facility] Creatinine Clr Calc Pharmacy 72.50 [facility] Comment on above: Result Comment: PERF ORMED BY:[address] [place], [place] [phone] MEDICAL DIRECTORKIMBERLYN SINGER M.D. Performed By: #### D IFF CBC, BMP ####[address] [place] [id number] [facility] Estimated GFR ( Brenda > 60 [facility] Comment on above: Result Comment: GFR estimated reference range: According to KDOQI guidelines, <60 ml/min/1.73m2 is sufficient to diagnose a patient with chronic kidney disease. Performed By: #### D IFF CBC, BMP ####[address] [address] [facility] Estimated GFR (Non- Am > 60 [facility] Comment on above: Performed By: #### D IFF CBC, BMP ####[address] [address] [facility] Glucose [Mass/Vol] 151 mg/dL High 70-100 [facility] Comment on above: Result Comment: [place] Glucose Reference Range is dependent on time and content of last meal. Glucose of more than 200 mg/dL in a nonstressed, ambulatory subject supports the diagnosis of Diabetes Mellitus. ADA recommended reference range Performed By: #### D IFF CBC, BMP ####[address] [address] [facility] Potassium [Moles/Vol] 3.6 mmol/L Normal 3.5-5.1 [facility] Comment on above: Performed By: #### D IFF CBC, BMP ####[place] [id number] [place] Sodium [Moles/Vol] 132 mmol/L Low 136-146 [facility] Comment on above: Performed By: #### D IFF CBC, BMP ####[address] [place] [id number] [facility] Urea nitrogen [Mass/Vol] 4 mg/dL Low 9-23 [facility] Comment on above: Performed By: #### D IFF CBC, BMP ####[address] [place] [address] [facility] Basophils/100 WBC Manual cnt (Bld)Ordered By: Nicolasa Hull on 03-17-2022 Basophils/100 WBC (Bld) 0 % 0-2 [facility] Diff and CBCon 03-17-2022 Anisocytosis Ql (Bld) Slight Normal Fir [facility] Comment on above: Performed By: #### D IFF CBC, BMP ####[address] Band form neutrophils/100 WBC (Bld) 1 % Normal 0-5 [facility] Comment on above: Performed By: #### D IFF CBC, BMP ####[place] [id number] [facility] Basophils/100 WBC (Bld) 0 % Normal 0-2 [facility] Comment on above: Performed By: #### D IFF CBC, BMP ####[address] [address] [facility] Eosinophils/100 WBC (Bld) 4 % High 1-3 [facility] Comment on above: Performed By: #### D IFF CBC, BMP ####[address] [place] [address] [facility] Erythrocyte distribution width (RBC) [Ratio] 15.9 % High 11.9-15.3 [facility] Comment on above: Performed By: #### D IFF CBC, BMP ####[address] [place] [address] [facility] Hematocrit (Bld) [Volume fraction] 27.0 % Low 34.0-46.4 [facility] Comment on above: Performed By: #### D IFF CBC, BMP ####[place] [id number] [facility] Hemoglobin (Bld) [Mass/Vol] 9.0 g/dL Low 11.8-15.4 [facility] Comment on above: Performed By: #### D IFF CBC, BMP ####[place] [place] [address] [facility] Lymphocytes/100 WBC (Bld) 19 % Normal 18-42 [facility] Comment on above: Performed By: #### D IFF CBC, BMP ####[place] [id number] [facility] MCH (RBC) [Entitic mass] 30.5 pg Normal 24.7-34.3 [facility] Comment on above: Performed By: #### D IFF CBC, BMP ####[address] MCV (RBC) [Entitic vol] 91.4 fL Normal 80-100 [facility] Comment on above: Performed By: #### D IFF CBC, BMP ####[address] Mean Corpuscular HGB Conc 33.4 g/dL Normal 32.0-35.0 [facility] Comment on above: Performed By: #### D IFF CBC, BMP ####[place] [id number] [facility] Metamyelocytes 1 % High 0-0 [facility] Comment on above: Performed By: #### D IFF CBC, BMP ####[place] [place] [address] [facility] Monocytes/100 WBC (Bld) 10 % Normal 2-11 [facility] Comment on above: Performed By: #### D IFF CBC, BMP ####[place] [place] [address] [facility] Myelocytes 3 % High 0-0 [facility] Comment on above: Performed By: #### D IFF CBC, BMP ####[facility] [place] [address] [facility] Platelet Estimate Normal Normal Normal [facility] Comment on above: Performed By: #### D IFF CBC, BMP ####[address] [place] [address] [facility] Platelet mean volume (Bld) [Entitic vol] 7.9 fL Normal 6.3-10.7 [facility] Comment on above: Performed By: #### D IFF CBC, BMP ####[address] [address] [facility] Platelet Morphology Normal Normal Normal [facility] Comment on above: Result Comment: PERF ORMED BY:[address] [place], [place] [phone] MEDICAL DIRECTORKIMBERLYN SINGER M.D. Performed By: #### D IFF CBC, BMP ####[place] [id number] [facility] Platelets (Bld) [#/Vol] 255 10*3/uL Normal 150-450 [facility] Comment on above: Performed By: #### D IFF CBC, BMP ####[address] [address] [facility] Polychromasia Slight Normal [facility] Comment on above: Performed By: #### D IFF CBC, BMP ####[address] [address] [facility] RBC (Bld) [#/Vol] 2.96 10*6/uL Low 3.60-5.00 [facility] Comment on above: Performed By: #### D IFF CBC, BMP ####[address] [address] [facility] Segmented neutrophils/100 WBC (Bld) 62 % Normal 50-70 [facility] Comment on above: Performed By: #### D IFF CBC, BMP ####[address] [address] [facility] WBC (Bld) [#/Vol] 5.9 10*3/uL Normal 3.8-11.6 [facility] Comment on above: Performed By: #### D IFF CBC, BMP ####[facility] [place] [address] [place] Glucose Poct Glucometerson 1 05-18-2021 Glucose [Mass/Vol] 243 mg/dL Normal [facility] Comment on above: Result Comment: [place] Glucose Reference Range is dependent on time and content of last meal. Glucose of more than 200 mg/dL in a nonstressed, ambulatory subject supports the diagnosis of Diabetes Mellitus.PERFORMED BY:[address] [place], [place] [phone] MEDICAL DIRECTORKIMBERLYN SINGER M.D. Performed By: #### G LULS ####Point of Care testing, Glucose [Mass/Vol] 210 mg/dL Normal [facility] Comment on above: Result Comment: [place] Glucose Reference Range is dependent on time and content of last meal. Glucose of more than 200 mg/dL in a nonstressed, ambulatory subject supports the diagnosis of Diabetes Mellitus.PERFORMED BY:[address] [place], [place] [phone] MEDICAL ANDRE SINGER M.D. Performed By: #### G LULS ####Point of Care testing, Glucose [Mass/Vol] 204 mg/dL Normal [facility] Comment on above: Result Comment: [facility] Glucose Reference Range is dependent on time and content of last meal. Glucose of more than 200 mg/dL in a nonstressed, ambulatory subject supports the diagnosis of Diabetes Mellitus.PERFORMED BY:[address] [place], [place] [phone] MEDICAL ANDRE SINGER M.D. Performed By: #### G LULS ####Point of Care testing, Commemt1 Glu2: Cleaned Meter Normal [facility] Comment on above: Result Comment: PERF ORMED BY:[address] [place], [place] [phone] MEDICAL ANDRE SINGER M.D. Performed By: #### G CHUCK ####Point of Care testing, Glucose [Mass/Vol] 171 mg/dL Normal [facility] Comment on above: Result Comment: [facility] Glucose Reference Range is dependent on time and content of last meal. Glucose of more than 200 mg/dL in a nonstressed, ambulatory subject supports the diagnosis of Diabetes Mellitus. Performed By: #### G CHUCK ####Point of Care testing, Bacterial blood cultureOrder ed By: Denice Buckner on 03-16-2022 Bacteria identified Cx Nom (Bld) NO GROWTH 5 DAYS [facility] Basic Metabolic Panelon Anion gap [Moles/Vol] 8.5 mmol/L Normal 6.0-15.0 [facility] Comment on above: Performed By: #### B MP, DIFF CBC ####[facility] [address] [place] [address] [place] Calcium [Mass/Vol] 8.0 mg/dL Low 8.2-10.2 [facility] Comment on above: Performed By: #### B MP, DIFF CBC ####[facility] [address] [place] [address] [place] Chloride [Moles/Vol] 99 mmol/L Normal 95-114 [facility] Comment on above: Performed By: #### B MP, DIFF CBC ####[facility] [address] [place] [address] [place] CO2 [Moles/Vol] 25.9 mmol/L Normal 22.0-30.0 [facility] Comment on above: Performed By: #### B MP, DIFF CBC ####[facility] [address] [place] [address] [place] Creatinine [Mass/Vol] 0.62 mg/dL Normal 0.44-1.03 [facility] Comment on above: Performed By: #### B MP, DIFF CBC ####[facility] [address] [place] [address] [place] Creatinine Clr Calc Pharmacy 73.92 Normal [facility] Comment on above: Result Comment: PERF ORMED BY:[address] [place], [place] [phone] MEDICAL DIRECTORKIMBERLYN SINGER M.D. Performed By: #### B MP, DIFF CBC ####[address] [address] [facility] Estimated GFR ( Brenda > 60 Normal [facility] Comment on above: Result Comment: GFR estimated reference range: According to KDOQI guidelines, <60 ml/min/1.73m2 is sufficient to diagnose a patient with chronic kidney disease. Performed By: #### B MP, DIFF CBC ####[address] [address] [facility] Estimated GFR (Non- Am > 60 Normal [facility] Comment on above: Performed By: #### B MP, DIFF CBC ####[address] [address] [facility] Glucose [Mass/Vol] 146 mg/dL High 70-100 [facility] Comment on above: Result Comment: [place] [facility] Glucose Reference Range is dependent on time and content of last meal. Glucose of more than 200 mg/dL in a nonstressed, ambulatory subject supports the diagnosis of Diabetes Mellitus. ADA recommended reference range Performed By: #### B MP, DIFF CBC ####[address] [address] [facility] Potassium [Moles/Vol] 3.4 mmol/L Low 3.5-5.1 [facility] Comment on above: Performed By: #### B MP, DIFF CBC ####[address] [address] [facility] Sodium [Moles/Vol] 130 mmol/L Low 136-146 [facility] Comment on above: Performed By: #### B MP, DIFF CBC ####[place] [id number] [facility] Urea nitrogen [Mass/Vol] 3 mg/dL Low 9-23 [facility] Comment on above: Performed By: #### B MP, DIFF CBC ####[place] [id number] [facility] Blood thiamine measurement ( moles/volume)Ordered By: Nicolasa Hull on 03-16-2022 Thiamine (Bld) [Moles/Vol] 109.4 nmol/L 66.5-200.0 [facility] Comment on above: This test was develo ped and its performance characteristicsdetermined by [facility]. It has not been cleared orapproved by the Food and Drug Administration.Performed at: [address] [id number] Director: Kush Wiseman MD, Phone: [phone] Diff and CBCon 03-16-2022 Anisocytosis Ql (Bld) Slight Normal Fir [facility] Comment on above: Performed By: #### B MP, DIFF CBC ####[address] Basophils/100 WBC (Bld) 1 % Normal 0-2 F [facility] Comment on above: Performed By: #### B MP, DIFF CBC ####[address] Eosinophils/100 WBC (Bld) 4 % High 1-3 [facility] Comment on above: Performed By: #### B MP, DIFF CBC ####[place] [id number] [facility] Erythrocyte distribution width (RBC) [Ratio] 15.8 % High 11.9-15.3 [facility] Comment on above: Performed By: #### B MP, DIFF CBC ####[place] [id number] [facility] Hematocrit (Bld) [Volume fraction] 24.2 % Low 34.0-46.4 [facility] Comment on above: Performed By: #### B MP, DIFF CBC ####[place] [id number] [facility] Hemoglobin (Bld) [Mass/Vol] 8.2 g/dL Low 11.8-15.4 [facility] Comment on above: Performed By: #### B MP, DIFF CBC ####[place] [id number] [facility] Lymphocytes/100 WBC (Bld) 18 % Normal 18-42 [facility] Comment on above: Performed By: #### B MP, DIFF CBC ####[address] MCH (RBC) [Entitic mass] 30.9 pg Normal 24.7-34.3 [facility] Comment on above: Performed By: #### B MP, DIFF CBC ####[address] MCV (RBC) [Entitic vol] 90.9 fL Normal 80-100 F [facility] Comment on above: Performed By: #### B MP, DIFF CBC ####[address] Mean Corpuscular HGB Conc 33.9 g/dL Normal 32.0-35.0 [facility] Comment on above: Performed By: #### B MP, DIFF CBC ####[address] Metamyelocytes 2 % High 0-0 [facility] Comment on above: Performed By: #### B MP, DIFF CBC ####[address] Monocytes/100 WBC (Bld) 8 % Normal 2-11 F [facility] Comment on above: Performed By: #### B MP, DIFF CBC ####[address] Myelocytes 2 % High 0-0 [facility] Comment on above: Performed By: #### B MP, DIFF CBC ####[address] Platelet Estimate Normal Normal Normal [facility] Comment on above: Performed By: #### B MP, DIFF CBC ####[address] Platelet mean volume (Bld) [Entitic vol] 8.0 fL Normal 6.3-10.7 [facility] Comment on above: Result Comment: PERF ORMED BY:[address] [address] [address] [place], [place] [phone] MEDICAL DIRECTORKIMBERLYN SINGER M.D. Performed By: #### B MP, DIFF CBC ####[place] [id number] [facility] Platelet Morphology Normal Normal Normal [facility] Comment on above: Result Comment: PERF ORMED BY:[address] RAMIREZDU[place], [place] [phone] MEDICAL DIRECTORKIMBERLYN SINGER M.D. Performed By: #### B MP, DIFF CBC ####[place] [id number] [facility] Platelets (Bld) [#/Vol] 223 10*3/uL Normal 150-450 [facility] Comment on above: Performed By: #### B MP, DIFF CBC ####[place] [id number] [facility] Polychromasia Slight Normal [facility] Comment on above: Performed By: #### B MP, DIFF CBC ####[address] [address] [facility] RBC (Bld) [#/Vol] 2.66 10*6/uL Low 3.60-5.00 [facility] Comment on above: Performed By: #### B MP, DIFF CBC ####[place] [id number] [facility] Schistocytes Slight Normal [facility] Comment on above: Performed By: #### B MP, DIFF CBC ####[place] [id number] [facility] Segmented neutrophils/100 WBC (Bld) 65 % Normal 50-70 [facility] Comment on above: Performed By: #### B MP, DIFF CBC ####[place] [id number] [facility] WBC (Bld) [#/Vol] 5.5 10*3/uL Normal 3.8-11.6 [facility] Comment on above: Performed By: #### B MP, DIFF CBC ####[facility] [address] [place] [address] [facility] Glucose Poct Glucometerson 1 05-17-2021 Commemt1 Glu2: Cleaned Meter [facility] Comment on above: Result Comment: PERF ORMED BY:[address] [place] [phone] MEDICAL DIRECTORKIMBERLYN SINGER M.D. Performed By: #### G LULS ####Point of Care testing, Glucose [Mass/Vol] 213 mg/dL Normal [facility] Comment on above: Result Comment: [place] Glucose Reference Range is dependent on time and content of last meal. Glucose of more than 200 mg/dL in a nonstressed, ambulatory subject supports the diagnosis of Diabetes Mellitus. Performed By: #### G LULS ####Point of Care testing, Commemt1 Glu2: Cleaned Meter [facility] Comment on above: Performed By: #### G LULS ####Point of Care testing, Commemt2 SLIDING SCALE COVERA [facility] Comment on above: Result Comment: PERF ORMED BY:[address] [address] [address] [place], [place] [phone] MEDICAL DIRECTORKIMBERLYN SINGER M.D. Performed By: #### G LULS ####Point of Care testing, Glucose [Mass/Vol] 164 mg/dL Normal [facility] Comment on above: Result Comment: [place] [facility] Glucose Reference Range is dependent on time and content of last meal. Glucose of more than 200 mg/dL in a nonstressed, ambulatory subject supports the diagnosis of Diabetes Mellitus. Performed By: #### G LULS ####Point of Care testing, Glucose [Mass/Vol] 272 mg/dL Normal [facility] Comment on above: Result Comment: [place] Glucose Reference Range is dependent on time and content of last meal. Glucose of more than 200 mg/dL in a nonstressed, ambulatory subject supports the diagnosis of Diabetes Mellitus.PERFORMED BY:[address] [place] [phone] MEDICAL DIRECTORKIMBERLYN SINGER M.D. Performed By: #### G LULS ####Point of Care testing, No Panel InformationOrdered By: Wilian Pearson on 03-16-2022 Bedside Glucose #2 Comment Sliding scale covera [facility] Schistocytes [Presence] in B lood by Light microscopyOrdered By: Nicolasa Hull on 03-16-2022 Schistocytes LM Ql (Bld) Slight [facility] Vitamin B1 (Thiamine) Bloodo n 03-16-2022 Vitamin B1 (Thiamine) Blood 109.4 Normal 66.5-200.0 [facility] Comment on above: Result Comment: This test was developed and its performance characteristics determined by [facility]. It has not been cleared or approved by the Food and Drug Administration. Performed at: [facility] [id number] Sticker On: Kush Wiseman MD, Phone: [phone] BY:[id number] [place], [place] [phone] MEDICAL DIRECTORKIMBERLYN SINGER M.D. Performed By: #### V ITB1 ####[facility] , Body fluid albumin measureme nt (mass/volume)Ordered By: Wilian Pearson on 03-15-2022 Albumin (Body fld) [Mass/Vol] 2.1 g/dL 3.2-5.5 [facility] Comprehensive Metabolic Pane jeremy 03-15-2022 Albumin [Mass/Vol] 2.1 g/dL Low 3.2-5.5 [facility] Comment on above: Performed By: #### M Harper, CMP ####[facility] [address] [place] [address] [facility] Albumin/Globulin [Mass ratio] 0.8 {ratio} Normal [facility] Comment on above: Performed By: #### M G, CMP ####[facility] [address] [place] [address] [facility] ALP [Catalytic activity/Vol] 87 U/L Normal 32-92 [facility] Comment on above: Performed By: #### Rosemary Saleem, CMP ####[facility] [place] [address] [facility] ALT [Catalytic activity/Vol] 13 U/L Normal 10-60 [facility] Comment on above: Performed By: #### Rosemary Saleem, CMP ####[facility] [place] [address] [facility] Anion gap [Moles/Vol] 9.0 mmol/L Normal 6.0-15.0 [facility] Comment on above: Performed By: #### Rosemary Saleem, CMP ####[address] [place] [address] [facility] AST [Catalytic activity/Vol] 13 U/L Normal 10-42 [facility] Comment on above: Performed By: #### Rosemary Saleem, CMP ####[address] [place] [address] [facility] Bilirubin [Mass/Vol] 0.7 mg/dL Normal 0.3-1.2 [facility] Comment on above: Performed By: #### Rosemary Saleem, CMP ####[address] [place] [address] [facility] Calcium [Mass/Vol] 7.7 mg/dL Low 8.2-10.2 [facility] Comment on above: Performed By: #### Rosemary Saleem, CMP ####[address] [place] [address] [place] Chloride [Moles/Vol] 100 mmol/L Normal 95-114 [facility] Comment on above: Performed By: #### Rosemary Saleem, CMP ####[facility] [place] [address] [facility] CO2 [Moles/Vol] 26.3 mmol/L Normal 22.0-30.0 [facility] Comment on above: Performed By: #### Rosemary Saleem, CMP ####[facility] [place] [address] [facility] Creatinine [Mass/Vol] 0.61 mg/dL Normal 0.44-1.03 [facility] Comment on above: Performed By: #### Rosemary Saleem, CMP ####[facility] [place] [address] [facility] Creatinine Clr Calc Pharmacy 76.33 [facility] Comment on above: Performed By: #### M G, CMP ####[facility] [place] [address] [facility] Estimated GFR ( Brenda > 60 [facility] Comment on above: Result Comment: GFR estimated reference range: According to KDOQI guidelines, <60 ml/min/1.73m2 is sufficient to diagnose a patient with chronic kidney disease. Performed By: #### M G, CMP ####[address] [address] [facility] Estimated GFR (Non- Am > 60 [facility] Comment on above: Performed By: #### M Harper, CMP ####[address] [address] [facility] Globulin (S) [Mass/Vol] 2.8 g/dL Normal [facility] Comment on above: Performed By: #### M G, CMP ####[address] [address] [facility] Glucose [Mass/Vol] 151 mg/dL High 70-100 [facility] Comment on above: Result Comment: [place] Glucose Reference Range is dependent on time and content of last meal. Glucose of more than 200 mg/dL in a nonstressed, ambulatory subject supports the diagnosis of Diabetes Mellitus. ADA recommended reference range Performed By: #### M G, CMP ####[address] [address] [facility] Potassium [Moles/Vol] 3.3 mmol/L Low 3.5-5.1 [facility] Comment on above: Performed By: #### M G, CMP ####[address] [address] [facility] Protein [Mass/Vol] 4.9 g/dL Low 6.1-7.9 [facility] Comment on above: Performed By: #### M G, CMP ####[address] [address] [facility] Sodium [Moles/Vol] 132 mmol/L Low 136-146 [facility] Comment on above: Performed By: #### M Harper, CMP ####[address] Urea nitrogen [Mass/Vol] 4 mg/dL Low 9-23 [facility] Comment on above: Performed By: #### M G, CMP ####[address] Diff and CBCon 03-15-2022 Anisocytosis Ql (Bld) Slight Normal [facility] Comment on above: Performed By: #### P ATH SLIDE REV, DIFF CBC ####[address] Eosinophils/100 WBC (Bld) 2 % Normal 1-3 [facility] Comment on above: Performed By: #### P ATH SLIDE REV, DIFF CBC ####[address] Erythrocyte distribution width (RBC) [Ratio] 16.4 % High 11.9-15.3 [facility] Comment on above: Performed By: #### P ATH SLIDE REV, DIFF CBC ####[address] Giant Platelet Tally 3 /100{WBC} Normal [facility] Comment on above: Performed By: #### P ATH SLIDE REV, DIFF CBC ####[address] Hematocrit (Bld) [Volume fraction] 22.6 % Low 34.0-46.4 [facility] Comment on above: Performed By: #### P ATH SLIDE REV, DIFF CBC ####[address] Hemoglobin (Bld) [Mass/Vol] 7.7 g/dL Low 11.8-15.4 [facility] Comment on above: Performed By: #### P ATH SLIDE REV, DIFF CBC ####[address] Lymphocytes/100 WBC (Bld) 16 % Low 18-42 [facility] Comment on above: Performed By: #### P ATH SLIDE REV, DIFF CBC ####[address] MCH (RBC) [Entitic mass] 30.6 pg Normal 24.7-34.3 [facility] Comment on above: Performed By: #### P ATH SLIDE REV, DIFF CBC ####[address] MCV (RBC) [Entitic vol] 90.2 fL Normal 80-100 F [facility] Comment on above: Performed By: #### P ATH SLIDE REV, DIFF CBC ####[address] Mean Corpuscular HGB Conc 33.9 g/dL Normal 32.0-35.0 [facility] Comment on above: Performed By: #### P ATH SLIDE REV, DIFF CBC ####[address] Metamyelocytes 4 % High 0-0 [facility] Comment on above: Performed By: #### P ATH SLIDE REV, DIFF CBC ####[address] Microcytosis Slight Normal [facility] Comment on above: Performed By: #### P ATH SLIDE REV, DIFF CBC ####[address] Monocytes/100 WBC (Bld) 10 % Normal 2-11 F [facility] Comment on above: Performed By: #### P ATH SLIDE REV, DIFF CBC ####[address] Myelocytes 6 % High 0-0 [facility] Comment on above: Performed By: #### P ATH SLIDE REV, DIFF CBC ####[address] Platelet Estimate Normal Normal Normal [facility] Comment on above: Performed By: #### P ATH SLIDE REV, DIFF CBC ####[place] [id number] [facility] Platelet mean volume (Bld) [Entitic vol] 8.2 fL Normal 6.3-10.7 [facility] Comment on above: Performed By: #### P ATH SLIDE REV, DIFF CBC ####[address] [address] [facility] Platelet Morphology Normal Normal Normal [facility] Comment on above: Result Comment: PERF ORMED BY:[address] [place], [place] [phone] MEDICAL DIRECTORKIMBERLYN SINGER M.D. Performed By: #### P ATH SLIDE REV, DIFF CBC ####[place] [id number] [facility] Platelets (Bld) [#/Vol] 214 10*3/uL Normal 150-450 [facility] Comment on above: Performed By: #### P ATH SLIDE REV, DIFF CBC ####[address] Polychromasia Slight Normal [facility] Comment on above: Performed By: #### P ATH SLIDE REV, DIFF CBC ####[address] RBC (Bld) [#/Vol] 2.50 10*6/uL Low 3.60-5.00 [facility] Comment on above: Performed By: #### P ATH SLIDE REV, DIFF CBC ####[place] [id number] [facility] Segmented neutrophils/100 WBC (Bld) 63 % Normal 50-70 [facility] Comment on above: Performed By: #### P ATH SLIDE REV, DIFF CBC ####[place] [id number] [facility] WBC (Bld) [#/Vol] 4.6 10*3/uL Normal 3.8-11.6 [facility] Comment on above: Performed By: #### P ATH SLIDE REV, DIFF CBC ####[address] [place] [address] [facility] Folate [Mass/volume] in Seru m or PlasmaOrdered By: Lea Judd on 03-15-2022 Folate [Mass/Vol] 15.0 ng/mL >5.9 [facility] Comment on above: Folate reference ran ge: >5.9 ng/mlThe WHO technical consultation on folate and vitamin [id number] has determined that folate concentrations lessthan 4 ng/ml are considered deficient. Globulin Calc (S) [Mass/Vol] Ordered By: Wilian Pearson on 03-15-2022 Globulin (S) [Mass/Vol] 2.8 g/dL F [facility] Glucose Poct Glucometerson 1 05-16-2021 Commemt1 Glu2: Cleaned Meter [facility] Comment on above: Result Comment: PERF ORMED BY:[address] [place]WE[place], [place] [phone] MEDICAL DIRECTORKIMBERLYN SINGER M.D. Performed By: #### G LULS ####Point of Care testing, Glucose [Mass/Vol] 206 mg/dL Normal [facility] Comment on above: Result Comment: [facility] Glucose Reference Range is dependent on time and content of last meal. Glucose of more than 200 mg/dL in a nonstressed, ambulatory subject supports the diagnosis of Diabetes Mellitus. Performed By: #### G LULS ####Point of Care testing, Glucose [Mass/Vol] 186 mg/dL Normal [facility] Comment on above: Result Comment: [facility] Glucose Reference Range is dependent on time and content of last meal. Glucose of more than 200 mg/dL in a nonstressed, ambulatory subject supports the diagnosis of Diabetes Mellitus.PERFORMED BY:[address] [address] [place], [place] [phone] MEDICAL ANDRE SINGER M.D. Performed By: #### G LULS ####Point of Care testing, Commemt1 Glu2: Cleaned Meter Normal [facility] Comment on above: Result Comment: PERF ORMED BY:[address] [place] [address]UIZARTeeteeRASHAUNDU[place], [place] [phone] MEDICAL DIRECTORKIMBERLYN SINGER M.D. Performed By: #### G LULS ####Point of Care testing, Glucose [Mass/Vol] 184 mg/dL Normal [facility] Comment on above: Result Comment: [place] [facility] Glucose Reference Range is dependent on time and content of last meal. Glucose of more than 200 mg/dL in a nonstressed, ambulatory subject supports the diagnosis of Diabetes Mellitus. Performed By: #### G LULS ####Point of Care testing, Commemt1 Glu2: Cleaned Meter Normal [facility] Comment on above: Result Comment: PERF ORMED BY:[address] [place], [place] [phone] MEDICAL DIRECTORKIMBERLYN SINGER M.D. Performed By: #### G LULS ####Point of Care testing, Glucose [Mass/Vol] 169 mg/dL Normal [facility] Comment on above: Result Comment: [place] Glucose Reference Range is dependent on time and content of last meal. Glucose of more than 200 mg/dL in a nonstressed, ambulatory subject supports the diagnosis of Diabetes Mellitus. Performed By: #### G LULS ####Point of Care testing, Jeremy 03-15-2022 L Normal [facility] Laboratory - Chemistry and C hemistry - challengeOrdered By: Lea Judd on 03-15-2022 Cobalamin (Vitamin B12) [Mass/Vol] 391 pg/mL 180-914 [facility] Laboratory - Chemistry and C hemistry - challengeOrdered By: Nicolasa Hull on 03-15-2022 Magnesium [Mass/Vol] 1.7 mg/dL 1.6-2.6 [facility] Magnesiumon 03-15-2022 Magnesium [Mass/Vol] 1.7 mg/dL Normal 1.6-2.6 [facility] Comment on above: Result Comment: PERF ORMED BY:[address] [place], [place] [phone] MEDICAL DIRECTORKIMBERLYN SINGER M.D. Performed By: #### M G, CMP ####[facility] [id number] [place] [address] [place] Microcytes LM Ql (Bld)Ordere d By: Wilian Pearson on 03-15-2022 Microcytes Ql (Bld) Slight [facility] No Panel InformationOrdered By: Wilian Pearson on 03-15-2022 Slides for Pathologist Review Ordered path review [facility] Pathologist Slide Reviewon 1 05-16-2021 Pathologist Slide Review Ordered Path Review Normal [facility] Comment on above: Result Comment: PERF ORMED BY:[id number] [place], [place] [phone] MEDICAL DIRECTORKIMBERLYN SINGER M.D. Performed By: #### P ATH SLIDE REV, DIFF CBC ####[facility] [address] [place] [address] [facility] Protein [Mass/volume] in Ser um or PlasmaOrdered By: Wilian Pearson on 03-15-2022 Protein [Mass/Vol] 4.9 g/dL 6.1-7.9 [facility] Serum or plasma alanine larsen otransferase measurement without P-5'-P (enzymatic activiOrdered By: Wilian Pearson on 03-15-2022 ALT No additional P-5'-P [Catalytic activity/Vol] 13 U/L 10-60 [facility] Serum or plasma albumin/glob ulin mass ratioOrdered By: Wilian Pearson on 03-15-2022 Albumin/Globulin [Mass ratio] 0.8 {ratio} [facility] Serum or plasma alkaline ventura sphatase measurement (enzymatic activity/volume)Ordered By: Wilian Pearson on 03-15-2022 ALP [Catalytic activity/Vol] 87 U/L 32-92 [facility] Serum or plasma aspartate am inotransferase measurement (enzymatic activity/volume)Ordered By: Wilian Pearson on 03-15-2022 AST [Catalytic activity/Vol] 13 U/L 10-42 [facility] Serum or plasma total biliru bin measurement (mass/volume)Ordered By: Wilian Perason on 03-15-2022 Bilirubin [Mass/Vol] 0.7 mg/dL 0.3-1.2 [facility] Vit. B12/Folate Profileon Cobalamin (Vitamin B12) [Mass/Vol] 391 pg/mL Normal 180-914 [facility] Comment on above: Performed By: #### V [id number] ####[address] [address] [facility] Folate 15.0 ng/mL Normal >5.9 [facility] Comment on above: Result Comment: Beatriz te reference range: >5.9 ng/ml The WHO technical consultation on folate and vitamin b12 deficiencies has determined that folate concentrations less than 4 ng/ml are considered deficient.PERFORMED BY:[address] [place], [place] [phone] MEDICAL DIRECTORKIMBERLYN SINGER M.D. Performed By: #### V [id number] ####[address] [address] [facility] Basic Metabolic Panelon Anion gap [Moles/Vol] 8.7 mmol/L Normal 6.0-15.0 [facility] Comment on above: Performed By: #### Rosemary Saleem, BMP ####[address] [address] [facility] Calcium [Mass/Vol] 7.5 mg/dL Low 8.2-10.2 [facility] Comment on above: Performed By: #### Rosemary Saleem, BMP ####[address] [address] [facility] Chloride [Moles/Vol] 97 mmol/L Normal 95-114 [facility] Comment on above: Performed By: #### M Harper, BMP ####[address] [place] [address] [facility] CO2 [Moles/Vol] 26.7 mmol/L Normal 22.0-30.0 [facility] Comment on above: Performed By: #### Rosemary Saleem, BMP ####[address] [place] [address] [facility] Creatinine [Mass/Vol] 0.62 mg/dL Normal 0.44-1.03 [facility] Comment on above: Performed By: #### M Harper, BMP ####[address] [place] [address] [facility] Creatinine Clr Calc Pharmacy 76.33 [facility] Comment on above: Performed By: #### Rosemary Saleem, BMP ####[address] [address] [facility] Estimated GFR ( Brenda > 60 [facility] Comment on above: Result Comment: GFR estimated reference range: According to KDOQI guidelines, <60 ml/min/1.73m2 is sufficient to diagnose a patient with chronic kidney disease. Performed By: #### Rosemary Saleem, BMP ####[address] [address] [facility] Estimated GFR (Non- Am > 60 [facility] Comment on above: Performed By: #### Rosemary Saleem, BMP ####[address] [address] [facility] Glucose [Mass/Vol] 144 mg/dL High 70-100 [facility] Comment on above: Result Comment: [place] [facility] Glucose Reference Range is dependent on time and content of last meal. Glucose of more than 200 mg/dL in a nonstressed, ambulatory subject supports the diagnosis of Diabetes Mellitus. ADA recommended reference range Performed By: #### Rosemary Saleem, BMP ####[address] [address] [facility] Potassium [Moles/Vol] 3.4 mmol/L Low 3.5-5.1 [facility] Comment on above: Performed By: #### Rosemary Saleem, BMP ####[address] [address] [facility] Sodium [Moles/Vol] 129 mmol/L Low 136-146 [facility] Comment on above: Performed By: #### M G, BMP ####[address] [address] [facility] Urea nitrogen [Mass/Vol] 7 mg/dL Low 9-23 [facility] Comment on above: Performed By: #### M G, BMP ####[facility] [id number] [place] [address] [facility] ECG 12 lead ECGon 03-14-2022 ECG 12 lead ECG Normal [facility] Fecal occult blood detection by immunochemistryOrdered By: Rachel Persaud on 03-14-2022 Hemoglobin.gastrointest inal Ql (Stl) [facility] Glucose Poct Glucometerson 1 05-15-2021 Glucose [Mass/Vol] 219 mg/dL Normal [facility] Comment on above: Result Comment: [facility] Glucose Reference Range is dependent on time and content of last meal. Glucose of more than 200 mg/dL in a nonstressed, ambulatory subject supports the diagnosis of Diabetes Mellitus.PERFORMED BY:[address] [place], [place] [phone] MEDICAL DIRECTORKIMBERLYN SINGER M.D. Performed By: #### G LULS ####Point of Care testing, Glucose [Mass/Vol] 208 mg/dL Normal [facility] Comment on above: Result Comment: [facility] Glucose Reference Range is dependent on time and content of last meal. Glucose of more than 200 mg/dL in a nonstressed, ambulatory subject supports the diagnosis of Diabetes Mellitus.PERFORMED BY:[address] [address] [place], [place] [phone] MEDICAL DIRECTORKIMBERLYN SINGER M.D. Performed By: #### G LULS ####Point of Care testing, Commemt1 Glu2: Cleaned Meter Normal [facility] Comment on above: Result Comment: PERF ORMED BY:[address] [address] [place]USSEINUSKYDUBLIN, [place] [phone] MEDICAL ANDRE SINGER M.D. Performed By: #### G LULS ####Point of Care testing, Glucose [Mass/Vol] 191 mg/dL Normal [facility] Comment on above: Result Comment: [facility] Glucose Reference Range is dependent on time and content of last meal. Glucose of more than 200 mg/dL in a nonstressed, ambulatory subject supports the diagnosis of Diabetes Mellitus. Performed By: #### G LULS ####Point of Care testing, Commemt1 Glu2: Cleaned Meter Normal [facility] Comment on above: Result Comment: PERF ORMED BY:[address] [place] [address] [address] [place], [place] [phone] MEDICAL DIRECTORKIMBERLYN SINGER M.D. Performed By: #### G LULS ####Point of Care testing, Glucose [Mass/Vol] 171 mg/dL Normal [facility] Comment on above: Result Comment: [place] Glucose Reference Range is dependent on time and content of last meal. Glucose of more than 200 mg/dL in a nonstressed, ambulatory subject supports the diagnosis of Diabetes Mellitus. Performed By: #### G LULS ####Point of Care testing, Magnesiumon 03-14-2022 Magnesium [Mass/Vol] 1.7 mg/dL Normal 1.6-2.6 [facility] Comment on above: Result Comment: PERF ORMED BY:[address] HUIZARTeeteeRASHAUNDUBLIN, [place] [phone] MEDICAL DIRECTORKIMBERLYN SINGER M.D. Performed By: #### M Harper, BMP ####[address] [place] [address] [facility] Stool Occult Blood (Guaiac)o n 03-14-2022 Stool Occult Blood (Guaiac) [facility] Comment on above: Performed By: #### O B(GUAIAC) ####[address] [address] [facility] Comprehensive Metabolic Pane jeremy 03-13-2022 Albumin [Mass/Vol] 2.2 g/dL Low 3.2-5.5 [facility] Comment on above: Performed By: #### M G, PHOS, CMP ####[address] [address] [facility] Albumin/Globulin [Mass ratio] 0.8 {ratio} [facility] Comment on above: Performed By: #### PETAR Mcdaniel, CMP ####[address] [place] [address] [facility] ALP [Catalytic activity/Vol] 90 U/L Normal 32-92 [facility] Comment on above: Performed By: #### VENTURA McdanielS, CMP ####[address] [place] [address] [facility] ALT [Catalytic activity/Vol] 14 U/L Normal 10-60 [facility] Comment on above: Performed By: #### PETAR Mcdaniel, CMP ####[address] [place] [address] [facility] Anion gap [Moles/Vol] 9.1 mmol/L Normal 6.0-15.0 [facility] Comment on above: Performed By: #### PETAR Mcdaniel, CMP ####[address] [address] [facility] AST [Catalytic activity/Vol] 15 U/L Normal 10-42 [facility] Comment on above: Performed By: #### PETAR Mcdaniel, CMP ####[address] [address] [facility] Bilirubin [Mass/Vol] 0.8 mg/dL Normal 0.3-1.2 [facility] Comment on above: Performed By: #### PETAR Mcdaniel, CMP ####[address] [address] [facility] Calcium [Mass/Vol] 7.6 mg/dL Low 8.2-10.2 [facility] Comment on above: Performed By: #### PETAR Mcdaniel, CMP ####[address] [place] [address] [facility] Chloride [Moles/Vol] 97 mmol/L Normal 95-114 [facility] Comment on above: Performed By: #### VENTURA McdanielS, CMP ####[facility] [id number] [place] [address] [facility] CO2 [Moles/Vol] 29.1 mmol/L Normal 22.0-30.0 [facility] Comment on above: Performed By: #### PETAR Mcdaniel CMP ####[address] Creatinine [Mass/Vol] 0.64 mg/dL Normal 0.44-1.03 [facility] Comment on above: Performed By: #### PETAR Mcdaniel CMP ####[address] Creatinine Clr Calc Pharmacy 75.60 [facility] Comment on above: Performed By: #### PETAR Mcdaniel CMP ####[address] Estimated GFR ( Brenda > 60 [facility] Comment on above: Result Comment: GFR estimated reference range: According to KDOQI guidelines, <60 ml/min/1.73m2 is sufficient to diagnose a patient with chronic kidney disease. Performed By: #### PETAR Mcdaniel CMP ####[address] Estimated GFR (Non- Am > 60 [facility] Comment on above: Performed By: #### PETAR Mcdaniel CMP ####[address] Globulin (S) [Mass/Vol] 2.7 g/dL Normal [facility] Comment on above: Performed By: #### PETAR Mcdaniel CMP ####[address] Glucose [Mass/Vol] 118 mg/dL High 70-100 [facility] Comment on above: Result Comment: [place] om Glucose Reference Range is dependent on time and content of last meal. Glucose of more than 200 mg/dL in a nonstressed, ambulatory subject supports the diagnosis of Diabetes Mellitus. ADA recommended reference range Performed By: #### PETAR Mcdaniel CMP ####[address] Protein [Mass/Vol] 4.9 g/dL Low 6.1-7.9 [facility] Comment on above: Performed By: #### M PETAR Saleem, CMP ####[facility] [id number] [facility] Sodium [Moles/Vol] 132 mmol/L Low 136-146 [facility] Comment on above: Performed By: #### M VENTURA SaleemS, CMP ####[facility] [address] [place] [address] [facility] Urea nitrogen [Mass/Vol] 13 mg/dL Normal 9-23 [facility] Comment on above: Performed By: #### M PETAR Saleem, CMP ####[facility] [id number] [facility] ECG 12 lead ECGon 03-13-2022 ECG 12 lead ECG Normal [facility] Glucose Poct Glucometerson 1 05-14-2021 Glucose [Mass/Vol] 288 mg/dL Normal [facility] Comment on above: Result Comment: [facility] Glucose Reference Range is dependent on time and content of last meal. Glucose of more than 200 mg/dL in a nonstressed, ambulatory subject supports the diagnosis of Diabetes Mellitus.PERFORMED BY:[address] [place]ETeeteeRASHA[place], [place] [phone] MEDICAL ANDRE SINGER M.D. Performed By: #### G LULS ####Point of Care testing, Glucose [Mass/Vol] 142 mg/dL Normal [facility] Comment on above: Result Comment: [facility] Glucose Reference Range is dependent on time and content of last meal. Glucose of more than 200 mg/dL in a nonstressed, ambulatory subject supports the diagnosis of Diabetes Mellitus.PERFORMED BY:[address] MARILYNHaroonTeeteeRASHAUN, [place] [phone] MEDICAL ANDRE SINGER M.D. Performed By: #### G LULS ####Point of Care testing, Glucose [Mass/Vol] 143 mg/dL Normal [facility] Comment on above: Result Comment: [facility] Glucose Reference Range is dependent on time and content of last meal. Glucose of more than 200 mg/dL in a nonstressed, ambulatory subject supports the diagnosis of Diabetes Mellitus.PERFORMED BY:[address] [address] [address] [place], [place] [phone] MEDICAL DIRECTORKIMBERLYN SINGER M.D. Performed By: #### G LULS ####Point of Care testing, Glucose [Mass/Vol] 138 mg/dL Normal [facility] Comment on above: Result Comment: [facility] Glucose Reference Range is dependent on time and content of last meal. Glucose of more than 200 mg/dL in a nonstressed, ambulatory subject supports the diagnosis of Diabetes Mellitus.PERFORMED BY:[address] [place], [place] [phone] MEDICAL DIRECTORKIMBERLYN SINGER M.D. Performed By: #### G LULS ####Point of Care testing, Hypochromia LM Ql (Bld)Order ed By: Denice Buckner on 03-13-2022 Hypochromia Ql (Bld) Slight [facility] Magnesiumon 03-13-2022 Magnesium [Mass/Vol] 1.6 mg/dL Normal 1.6-2.6 [facility] Comment on above: Result Comment: PERF ORMED BY:[address] [place], [place] [phone] MEDICAL DIRECTORKIMBERLYN SINGER M.D. Performed By: #### M PETAR Saleem, CMP ####[address] [address] [facility] Ovalocyte detectionOrdered B y: Denice Buckner on 03-13-2022 Ovalocytes LM Ql (Bld) Slight [facility] Phosphate [Mass/volume] in S roxy or PlasmaOrdered By: Nicolasa Hull on 03-13-2022 Phosphate [Mass/Vol] 3.0 mg/dL 2.5-4.6 [facility] Phosphoruson 03-13-2022 Phosphate [Mass/Vol] 3.0 mg/dL Normal 2.5-4.6 [facility] Comment on above: Performed By: #### M Harper PHOS, CMP ####[address] Poikilocytosis [Presence] in Blood by Light microscopyOrdered By: Denice Buckner on 03-13-2022 Poikilocytosis LM Ql (Bld) Slight [facility] Potassiumon 03-13-2022 Potassium [Moles/Vol] 3.2 mmol/L Low 3.5-5.1 [facility] Comment on above: Order Comment: rn sa id retime for about 4 hours RN TO CALL TO LET US KNOW WHEN IT'S DONE TO RETIME PSW 2012 Result Comment: PERF ORMED BY:[address] [place], [place] [phone] MEDICAL DIRECTORKIMBERLYN SINGER M.D. Performed By: #### K ####[address] Performed By: #### M PETAR Saleem, CMP ####[address] Scan and CBCon 03-13-2022 Anisocytosis Ql (Bld) Moderate Normal [facility] Comment on above: Performed By: #### S CAN CBC ####[address] Basophils (Bld) [#/Vol] 0.0 10*3/uL Normal 0.0-0.2 [facility] Comment on above: Performed By: #### S CAN CBC ####[address] Basophils/100 WBC (Bld) 0.4 % Normal . [facility] Comment on above: Performed By: #### S CAN CBC ####[address] Eosinophils (Bld) [#/Vol] 0.3 10*3/uL Normal 0.0-0.45 [facility] Comment on above: Performed By: #### S CAN CBC ####[address] Eosinophils/100 WBC (Bld) 3.8 % Normal . [facility] Comment on above: Performed By: #### S CAN CBC ####[address] Erythrocyte distribution width (RBC) [Ratio] 16.1 % High 11.9-15.3 [facility] Comment on above: Performed By: #### S CAN CBC ####[address] Hematocrit (Bld) [Volume fraction] 24.0 % Low 34.0-46.4 [facility] Comment on above: Performed By: #### S CAN CBC ####[address] Hemoglobin (Bld) [Mass/Vol] 8.1 g/dL Low 11.8-15.4 [facility] Comment on above: Performed By: #### S CAN CBC ####[address] Hypochromasia Slight Normal [facility] Comment on above: Performed By: #### S CAN CBC ####[address] Lymphocytes (Bld) [#/Vol] 1.8 10*3/uL Normal 1.00-4.8 [facility] Comment on above: Performed By: #### S CAN CBC ####[address] Lymphocytes/100 WBC (Bld) 26.6 % Normal . [facility] Comment on above: Performed By: #### S CAN CBC ####[address] MCH (RBC) [Entitic mass] 30.5 pg Normal 24.7-34.3 [facility] Comment on above: Performed By: #### S CAN CBC ####[address] MCV (RBC) [Entitic vol] 90.1 fL Normal 80-100 [facility] Comment on above: Performed By: #### S CAN CBC ####[address] [address] [facility] Mean Corpuscular HGB Conc 33.8 g/dL Normal 32.0-35.0 [facility] Comment on above: Performed By: #### S CAN CBC ####[address] [address] [facility] Microcytosis Moderate Normal [facility] Comment on above: Performed By: #### S CAN CBC ####[id number] [facility] Monocytes (Bld) [#/Vol] 0.7 10*3/uL Normal 0.0-0.8 [facility] Comment on above: Performed By: #### S CAN CBC ####[id number] [facility] Monocytes/100 WBC (Bld) 10.8 % Normal . [facility] Comment on above: Performed By: #### S CAN CBC ####[id number] [facility] Neutrophils (Bld) [#/Vol] 4.1 10*3/uL Normal 1.8-7.7 [facility] Comment on above: Performed By: #### S CAN CBC ####[id number] [facility] Neutrophils/100 WBC (Bld) 58.4 % Normal . [facility] Comment on above: Performed By: #### S CAN CBC ####[address] [address] [facility] NRBC% 0.3 /100{WBC} Normal 0-0.5 [facility] Comment on above: Performed By: #### S CAN CBC ####[address] [address] [facility] Ovalocytes Slight Normal [facility] Comment on above: Performed By: #### S CAN CBC ####[id number] [facility] Platelet Estimate Normal Normal Normal [facility] Comment on above: Performed By: #### S CAN CBC ####[address] [address] [facility] Platelet mean volume (Bld) [Entitic vol] 8.3 fL Normal 6.3-10.7 [facility] Comment on above: Performed By: #### S CAN CBC ####[address] [address] [facility] Platelet Morphology Normal Normal Normal [facility] Comment on above: Result Comment: PERF ORMED BY:[address] [place]ILYNRAIMUNDORASHAUN, [place] [phone] MEDICAL ANDRE SINGER M.D. Performed By: #### S CAN CBC ####[id number] [facility] Platelets (Bld) [#/Vol] 205 10*3/uL Normal 150-450 [facility] Comment on above: Performed By: #### S CAN CBC ####[id number] [facility] Poikilocytosis Slight Normal [facility] Comment on above: Performed By: #### S CAN CBC ####[id number] [facility] Polychromasia Slight Normal [facility] Comment on above: Performed By: #### S CAN CBC ####[id number] [facility] RBC (Bld) [#/Vol] 2.67 10*6/uL Low 3.60-5.00 [facility] Comment on above: Performed By: #### S CAN CBC ####[address] [address] [facility] WBC (Bld) [#/Vol] 6.9 10*3/uL Normal 3.8-11.6 [facility] Comment on above: Performed By: #### S CAN CBC ####[id number] [facility] ABO/Rh Retypeon 03-12-2022 ABO/RH Recheck Result Positive Normal [facility] Comment on above: Result Comment: PERF ORMED BY:[facility] [place], [place] [phone] MEDICAL DIRECTORKIMBERLYN SINGER M.D. CT abdomen pelvis w conon CT abdomen pelvis w con Normal [facility] Comprehensive Metabolic Pane jeremy 03-12-2022 Albumin [Mass/Vol] 2.3 g/dL Low 3.2-5.5 [facility] Comment on above: Performed By: #### C MP ####[address] [place] [address] [facility] Albumin/Globulin [Mass ratio] 0.9 {ratio} Normal [facility] Comment on above: Performed By: #### C MP ####[address] [place] [address] [facility] ALP [Catalytic activity/Vol] 101 U/L High 32-92 [facility] Comment on above: Performed By: #### C MP ####[address] [place] [address] [facility] ALT [Catalytic activity/Vol] 17 U/L Normal 10-60 [facility] Comment on above: Performed By: #### C MP ####[address] [place] [address] [facility] Anion gap [Moles/Vol] 12.4 mmol/L Normal 6.0-15.0 [facility] Comment on above: Performed By: #### C MP ####[facility] [place] [address] [facility] AST [Catalytic activity/Vol] 15 U/L Normal 10-42 [facility] Comment on above: Performed By: #### C MP ####[address] [place] [address] [facility] Bilirubin [Mass/Vol] 0.6 mg/dL Normal 0.3-1.2 [facility] Comment on above: Performed By: #### C MP ####[address] [place] [address] [facility] Calcium [Mass/Vol] 7.9 mg/dL Low 8.2-10.2 [facility] Comment on above: Performed By: #### C MP ####[id number] [facility] Chloride [Moles/Vol] 91 mmol/L Low 95-114 [facility] Comment on above: Performed By: #### C MP ####[id number] [facility] CO2 [Moles/Vol] 30.5 mmol/L High 22.0-30.0 [facility] Comment on above: Performed By: #### C MP ####[address] [facility] Creatinine [Mass/Vol] 0.63 mg/dL Normal 0.44-1.03 [facility] Comment on above: Performed By: #### C MP ####[address] [facility] Creatinine Clr Calc Pharmacy 77.02 [facility] Comment on above: Result Comment: PERF ORMED BY:[address] [place], [place] [phone] MEDICAL ANDRE SINGER M.D. Performed By: #### C MP ####[id number] [facility] Estimated GFR ( Brenda > 60 [facility] Comment on above: Result Comment: GFR estimated reference range: According to KDOQI guidelines, <60 ml/min/1.73m2 is sufficient to diagnose a patient with chronic kidney disease. Performed By: #### C MP ####[id number] [facility] Estimated GFR (Non- Am > 60 [facility] Comment on above: Performed By: #### C MP ####[id number] [facility] Globulin (S) [Mass/Vol] 2.7 g/dL Normal [facility] Comment on above: Performed By: #### C MP ####[address] [place] [address] [facility] Glucose [Mass/Vol] 156 mg/dL High 70-100 [facility] Comment on above: Result Comment: [place] Glucose Reference Range is dependent on time and content of last meal. Glucose of more than 200 mg/dL in a nonstressed, ambulatory subject supports the diagnosis of Diabetes Mellitus. ADA recommended reference range Performed By: #### C MP ####[address] [address] [facility] Potassium [Moles/Vol] 2.9 mmol/L Off scale low 3.5-5.1 [facility] Comment on above: Result Comment: Resu lts called at 0717 on 03/12/22 Performed By: #### C MP ####[address] [address] [facility] Protein [Mass/Vol] 5.0 g/dL Low 6.1-7.9 [facility] Comment on above: Performed By: #### C MP ####[address] [address] [facility] Sodium [Moles/Vol] 131 mmol/L Low 136-146 [facility] Comment on above: Performed By: #### C MP ####[address] [address] [facility] Urea nitrogen [Mass/Vol] 13 mg/dL Normal 9-23 [facility] Comment on above: Performed By: #### C MP ####[address] [address] [place] Diff and CBCon 03-12-2022 Anisocytosis Ql (Bld) Slight Normal [facility] Comment on above: Performed By: #### D IFF CBC ####[address] [address] [place] Eosinophils/100 WBC (Bld) 1 % Normal 1-3 [facility] Comment on above: Performed By: #### D IFF CBC ####[address] [place] [address] [place] Erythrocyte distribution width (RBC) [Ratio] 14.2 % Normal 11.9-15.3 [facility] Comment on above: Performed By: #### D IFF CBC ####[address] Hematocrit (Bld) [Volume fraction] 21.1 % Low 34.0-46.4 [facility] Comment on above: Performed By: #### D IFF CBC ####[address] Hemoglobin (Bld) [Mass/Vol] 7.1 g/dL Low 11.8-15.4 [facility] Comment on above: Performed By: #### D IFF CBC ####[address] Lymphocytes/100 WBC (Bld) 24 % Normal 18-42 [facility] Comment on above: Performed By: #### D IFF CBC ####[address] MCH (RBC) [Entitic mass] 31.1 pg Normal 24.7-34.3 [facility] Comment on above: Performed By: #### D IFF CBC ####[address] MCV (RBC) [Entitic vol] 93.2 fL Normal 80-100 [facility] Comment on above: Performed By: #### D IFF CBC ####[address] Mean Corpuscular HGB Conc 33.4 g/dL Normal 32.0-35.0 [facility] Comment on above: Performed By: #### D IFF CBC ####[address] Metamyelocytes 1 % High 0-0 [facility] Comment on above: Performed By: #### D IFF CBC ####[address] Monocytes/100 WBC (Bld) 6 % Normal 2-11 [facility] Comment on above: Performed By: #### D IFF CBC ####[address] [place] [address] [facility] Myelocytes 3 % High 0-0 [facility] Comment on above: Performed By: #### D IFF CBC ####[address] [place] [address] [facility] Platelet Estimate Normal Normal Normal [facility] Comment on above: Performed By: #### D IFF CBC ####[facility] [id number] [place] [address] [facility] Platelet mean volume (Bld) [Entitic vol] 8.7 fL Normal 6.3-10.7 [facility] Comment on above: Result Comment: PERF ORMED BY:[address] SAWYERSTARKWEATHER, [place] [phone] MEDICAL DIRECTORKIMBERLYN SINGER M.D. Performed By: #### D IFF CBC ####[address] [address] [facility] Platelet Morphology Normal Normal Normal [facility] Comment on above: Result Comment: PERF ORMED BY:[address] HUSSEINSEBAGO, [place] [phone] MEDICAL DIRECTORKIMBERLYN SINGER M.D. Performed By: #### D IFF CBC ####[address] [address] [facility] Platelets (Bld) [#/Vol] 299 10*3/uL Normal 150-450 [facility] Comment on above: Performed By: #### D IFF CBC ####[address] [address] [facility] Polychromasia Slight Normal [facility] Comment on above: Performed By: #### D IFF CBC ####[address] [address] [facility] RBC (Bld) [#/Vol] 2.26 10*6/uL Low 3.60-5.00 [facility] Comment on above: Performed By: #### D IFF CBC ####[facility] [address] [place] [address] [facility] Segmented neutrophils/100 WBC (Bld) 66 % Normal 50-70 [facility] Comment on above: Performed By: #### D IFF CBC ####[facility] [address] [place] [address] [facility] WBC (Bld) [#/Vol] 11.7 10*3/uL High 3.8-11.6 [facility] Comment on above: Performed By: #### D IFF CBC ####[address] [place] [address] [facility] ECG 12 lead ECGon 03-12-2022 ECG 12 lead ECG Normal [facility] ECH echo transthoracicon ECH echo transthoracic Normal [facility] Glucose Poct Glucometerson 1 05-13-2021 Commemt1 Glu2: Cleaned Meter Normal [facility] Comment on above: Result Comment: PERF ORMED BY:[address] [address] [address] [place]MIREZDU[place], [place] [phone] MEDICAL DIRECTORKIMBERLYN SINGER M.D. Performed By: #### G LUTHAI ####Point of Care testing, Glucose [Mass/Vol] 187 mg/dL Normal [facility] Comment on above: Result Comment: [place] Glucose Reference Range is dependent on time and content of last meal. Glucose of more than 200 mg/dL in a nonstressed, ambulatory subject supports the diagnosis of Diabetes Mellitus. Performed By: #### G LULS ####Point of Care testing, Glucose [Mass/Vol] 169 mg/dL Normal [facility] Comment on above: Result Comment: [place] Glucose Reference Range is dependent on time and content of last meal. Glucose of more than 200 mg/dL in a nonstressed, ambulatory subject supports the diagnosis of Diabetes Mellitus.PERFORMED BY:[address] [address] [address] RAMIREZDUBL[place], [place] [phone] MEDICAL DIRECTORKIMBERLYN SINGER M.D. Performed By: #### G LULS ####Point of Care testing, Glucose [Mass/Vol] 151 mg/dL Normal [facility] Comment on above: Result Comment: [facility] Glucose Reference Range is dependent on time and content of last meal. Glucose of more than 200 mg/dL in a nonstressed, ambulatory subject supports the diagnosis of Diabetes Mellitus.PERFORMED BY:[address] [address] [address] [place]IREZ[place], [place] [phone] MEDICAL DIRECTORKIMBERLYN SINGER M.D. Performed By: #### G LULS ####Point of Care testing, Commemt1 Glu2: Cleaned Meter Normal [facility] Comment on above: Result Comment: PERF ORMED BY:[address] [place]IREZDUBLIN, [place] [phone] MEDICAL DIRECTORKIMBERLYN SINGER M.D. Performed By: #### G LULS ####Point of Care testing, Glucose [Mass/Vol] 159 mg/dL Normal [facility] Comment on above: Result Comment: [facility] Glucose Reference Range is dependent on time and content of last meal. Glucose of more than 200 mg/dL in a nonstressed, ambulatory subject supports the diagnosis of Diabetes Mellitus. Performed By: #### G LULS ####Point of Care testing, LeukoReduced RBCon 2 LeukoReduced RBC TRANSFUSED 03/12/22 1625 [facility] [facility] Magnesiumon 03-12-2022 Magnesium [Mass/Vol] 1.4 mg/dL Low 1.6-2.6 [facility] Comment on above: Order Comment: Comme nt add on to previously drawn labs Result Comment: PERF ORMED BY:[place] [address] [place] [place], [place] [phone] MEDICAL DIRECTORKIMBERLYN SINGER M.D. Performed By: #### M G ####[facility] [place] [address] [place] Type and Screenon 03-12-2022 ABO and Rh group Nom (Bld) Blood group O Rh(D) positive [facility] Comment on above: Order Comment: Trans fuse now? Y Number of units to transfuse now? 2 Result Comment: PERF ORMED BY:[facility] [place], [place] [phone] MEDICAL DIRECTORKIMBERLYN SINGER M.D. US gall bladderon 03-12-2022 US gall bladder Normal [facility] XR abdomen 1Von 03-12-2022 XR abdomen 1V Normal [facility] Bacterial blood cultureOrder ed By: Tammy Smyth on 03-11-2022 Bacteria identified Cx Nom (Bld) Diptheroids [facility] Bacteria identified Cx Nom (Bld) Bacillus sp not B. anthracis [facility] Bacterial blood cultureOrder ed By: Denice Buckner on 03-11-2022 Bacteria identified Cx Nom (Bld) NO GROWTH 5 DAYS [facility] Basic Metabolic Panelon 12-0 Anion gap [Moles/Vol] 16.6 mmol/L High 6.0-15.0 [facility] Comment on above: Order Comment: FOOT ORDER Performed By: #### B MP ####[facility] Lpl[address] [place] [address] [facility] Calcium [Mass/Vol] 7.7 mg/dL Low 8.2-10.2 [facility] Comment on above: Order Comment: FOOT ORDER Performed By: #### B MP ####[facility] [place] [address] [place] Chloride [Moles/Vol] 90 mmol/L Low 95-114 [facility] Comment on above: Order Comment: FOOT ORDER Performed By: #### B MP ####[facility] Dfu[address] [place] [address] [facility] CO2 [Moles/Vol] 23.6 mmol/L Normal 22.0-30.0 [facility] Comment on above: Order Comment: FOOT ORDER Performed By: #### B MP ####[facility] Aiq[address] [place] [address] [facility] Creatinine [Mass/Vol] 0.69 mg/dL Normal 0.44-1.03 [facility] Comment on above: Order Comment: FOOT ORDER Performed By: #### B MP ####[facility] [place] [address] [place] Creatinine Clr Calc Pharmacy 77.58 [facility] Comment on above: Order Comment: FOOT ORDER Result Comment: PERF ORMED BY:[place] [address] [address] [place], [place] [phone] MEDICAL DIRECTORKIMBERLYN SINGER M.D. Performed By: #### B MP ####[address] [address] [facility] Estimated GFR ( Brenda > 60 [facility] Comment on above: Order Comment: FOOT ORDER Result Comment: GFR estimated reference range: According to KDOQI guidelines, <60 ml/min/1.73m2 is sufficient to diagnose a patient with chronic kidney disease. Performed By: #### B MP ####[address] [address] [facility] Estimated GFR (Non- Am > 60 [facility] Comment on above: Order Comment: FOOT ORDER Performed By: #### B MP ####[address] [address] [facility] Glucose [Mass/Vol] 226 mg/dL High 70-100 [facility] Comment on above: Order Comment: FOOT ORDER Result Comment: [place] [facility] Glucose Reference Range is dependent on time and content of last meal. Glucose of more than 200 mg/dL in a nonstressed, ambulatory subject supports the diagnosis of Diabetes Mellitus. ADA recommended reference range Performed By: #### B MP ####[address] [address] [facility] Potassium [Moles/Vol] 3.2 mmol/L Low 3.5-5.1 [facility] Comment on above: Order Comment: FOOT ORDER Performed By: #### B MP ####[address] [address] [facility] Sodium [Moles/Vol] 127 mmol/L Low 136-146 [facility] Comment on above: Order Comment: FOOT ORDER Performed By: #### B MP ####[address] [place] [address] [facility] Urea nitrogen [Mass/Vol] 14 mg/dL Normal 9-23 [facility] Comment on above: Order Comment: FOOT ORDER Performed By: #### B MP ####[address] [address] [facility] Anion gap [Moles/Vol] 11.3 mmol/L Normal 6.0-15.0 [facility] Comment on above: Performed By: #### F ER, FE and TIBC, BMP ####[address] [address] [facility] Calcium [Mass/Vol] 7.5 mg/dL Low 8.2-10.2 [facility] Comment on above: Performed By: #### F ER, FE and TIBC, BMP ####[address] [address] [facility] Chloride [Moles/Vol] 93 mmol/L Low 95-114 [facility] Comment on above: Performed By: #### F ER, FE and TIBC, BMP ####[address] [address] [facility] CO2 [Moles/Vol] 24.9 mmol/L Normal 22.0-30.0 [facility] Comment on above: Performed By: #### F ER, FE and TIBC, BMP ####[address] [address] [facility] Creatinine [Mass/Vol] 0.53 mg/dL Normal 0.44-1.03 [facility] Comment on above: Performed By: #### F ER, FE and TIBC, BMP ####[address] [address] [facility] Creatinine Clr Calc Pharmacy 77.58 [facility] Comment on above: Performed By: #### F ER, FE and TIBC, BMP ####[address] [address] [facility] Estimated GFR ( Brenda > 60 [facility] Comment on above: Result Comment: GFR estimated reference range: According to KDOQI guidelines, <60 ml/min/1.73m2 is sufficient to diagnose a patient with chronic kidney disease. Performed By: #### F ER, FE and TIBC, BMP ####[address] Estimated GFR (Non- Am > 60 [facility] Comment on above: Performed By: #### F ER, FE and TIBC, BMP ####[place] [address] Glucose [Mass/Vol] 174 mg/dL High 70-100 [facility] Comment on above: Result Comment: [place] Glucose Reference Range is dependent on time and content of last meal. Glucose of more than 200 mg/dL in a nonstressed, ambulatory subject supports the diagnosis of Diabetes Mellitus. ADA recommended reference range Performed By: #### F ER, FE and TIBC, BMP ####[address] Potassium [Moles/Vol] 3.2 mmol/L Low 3.5-5.1 [facility] Comment on above: Performed By: #### F ER, FE and TIBC, BMP ####[address] Sodium [Moles/Vol] 126 mmol/L Low 136-146 [facility] Comment on above: Performed By: #### F ER, FE and TIBC, BMP ####[place] [id number] [facility] Urea nitrogen [Mass/Vol] 8 mg/dL Low 9-23 [facility] Comment on above: Performed By: #### F ER, FE and TIBC, BMP ####[place] [id number] [facility] Blood Cultureon 03-11-2022 Bacteria identified Cx Nom (Bld) NO GROWTH 5 DAYS PERFORMED BY: [facility] [address] [place] [address] PATHOLOGIST TILLER MAN KIMBERLYN SINGER M.D. [facility] Comment on above: Performed By: #### C UBLD ####[address] [address] [facility] Bacteria identified Cx Nom (Bld) NO GROWTH 5 DAYS PERFORMED BY: [facility] [address] [id number] PATHOLOGIST TILLER MAN KIMBERLYN SINGER M.D. Normal [facility] Comment on above: Performed By: #### C UBLD ####[place] [id number] [facility] CT biopsyOrdered By: Denice santamaria on 03-11-2022 Transferrin [Mass/Vol] 110 mg/dL 180-380 [facility] Ferritinon 03-11-2022 Ferritin [Mass/Vol] 235.0 ng/mL Normal 11-306.8 [facility] Comment on above: Result Comment: PERF ORMED BY:[address] [place], [place] [phone] MEDICAL DIRECTORKIMBERLYN SINGER M.D. Performed By: #### F ER, FE and TIBC, BMP ####[place] [id number] [facility] Ferritin [Mass/volume] in Se rum or PlasmaOrdered By: Denice Buckner on 03-11-2022 Ferritin [Mass/Vol] 235.0 ng/mL 11-306.8 [facility] Glucose Poct Glucometerson 1 05-12-2021 Commemt1 Glu2: Cleaned Meter Normal [facility] Comment on above: Result Comment: PERF ORMED BY:[address] [place], [place] [phone] MEDICAL DIRECTORKIMBERLYN SINGER M.D. Performed By: #### G LULS ####Point of Care testing, Glucose [Mass/Vol] 218 mg/dL Normal [facility] Comment on above: Result Comment: [facility] Glucose Reference Range is dependent on time and content of last meal. Glucose of more than 200 mg/dL in a nonstressed, ambulatory subject supports the diagnosis of Diabetes Mellitus. Performed By: #### G LULS ####Point of Care testing, Commemt1 Glu2: Cleaned Meter [facility] Comment on above: Result Comment: PERF ORMED BY:[place] [address] [place], [place] [phone] MEDICAL DIRECTORKIMBERLYN SINGER M.D. Performed By: #### G LULS ####Point of Care testing, Glucose [Mass/Vol] 185 mg/dL Normal [facility] Comment on above: Result Comment: [place] [facility] Glucose Reference Range is dependent on time and content of last meal. Glucose of more than 200 mg/dL in a nonstressed, ambulatory subject supports the diagnosis of Diabetes Mellitus. Performed By: #### G LULS ####Point of Care testing, Commemt1 Glu2: Cleaned Meter [facility] Comment on above: Result Comment: PERF ORMED BY:[address] [place], [place] [phone] MEDICAL DIRECTORKIMBERLYN SINGER M.D. Performed By: #### G LULS ####Point of Care testing, Glucose [Mass/Vol] 225 mg/dL Normal [facility] Comment on above: Result Comment: [place] [facility] Glucose Reference Range is dependent on time and content of last meal. Glucose of more than 200 mg/dL in a nonstressed, ambulatory subject supports the diagnosis of Diabetes Mellitus. Performed By: #### G LULS ####Point of Care testing, Commemt1 Glu2: Cleaned Meter [facility] Comment on above: Result Comment: PERF ORMED BY:[address] [place], [place] [phone] MEDICAL DIRECTORKIMBERLYN SINGER M.D. Performed By: #### G LULS ####Point of Care testing, Glucose [Mass/Vol] 159 mg/dL Normal [facility] Comment on above: Result Comment: [place] [facility] Glucose Reference Range is dependent on time and content of last meal. Glucose of more than 200 mg/dL in a nonstressed, ambulatory subject supports the diagnosis of Diabetes Mellitus. Performed By: #### G LULS ####Point of Care testing, Commemt1 Glu2: Cleaned Meter Normal [facility] Comment on above: Result Comment: PERF ORMED BY:[place] [address] [address] [place], [place] [phone] MEDICAL DIRECTORKIMBERLYN SINGER M.D. Performed By: #### G LULS ####Point of Care testing, Glucose [Mass/Vol] 147 mg/dL Normal [facility] Comment on above: Result Comment: [facility] Glucose Reference Range is dependent on time and content of last meal. Glucose of more than 200 mg/dL in a nonstressed, ambulatory subject supports the diagnosis of Diabetes Mellitus. Performed By: #### G LULS ####Point of Care testing, Hemoglobin and Hematocriton 03-11-2022 Hematocrit (Bld) [Volume fraction] 23.0 % Low 34.0-46.4 [facility] Comment on above: Order Comment: FOOT ORDER Result Comment: PERF ORMED BY:[place] [address] [address] [place], [place] [phone] MEDICAL DIRECTORKIMBERLYN SINGER M.D. Performed By: #### H H ####[place] [id number] [facility] Hemoglobin (Bld) [Mass/Vol] 7.7 g/dL Low 11.8-15.4 [facility] Comment on above: Order Comment: FOOT ORDER Performed By: #### H H ####[place] [id number] [facility] Iron [Mass/volume] in Serum or PlasmaOrdered By: Denice Buckner on 03-11-2022 Iron [Mass/Vol] 33 ug/dL 40-150 [facility] Iron and TIBC Profileon % Iron Saturation 21.0 % Normal 20-50 [facility] Comment on above: Performed By: #### F ER, FE and TIBC, BMP ####[place] [id number] [facility] Iron [Mass/Vol] 33 ug/dL Low 40-150 [facility] Comment on above: Performed By: #### F ER, FE and TIBC, BMP ####[place] [address] Total Iron Binding Capacity 154 ug/dL Low 255-450 [facility] Comment on above: Performed By: #### F ER, FE and TIBC, BMP ####[place] [address] Transferrin [Mass/Vol] 110 mg/dL Low 180-380 [facility] Comment on above: Performed By: #### F ER, FE and TIBC, BMP ####[address] Iron binding capacity [Mass/ volume] in Serum or PlasmaOrdered By: Denice Buckner on 03-11-2022 Iron binding capacity [Mass/Vol] 154 ug/dL 255-450 [facility] Iron saturation [Mass Fracti on] in Serum or PlasmaOrdered By: Denice Buckner on 03-11-2022 Iron saturation [Mass fraction] 21.0 % 20-50 [facility] Scan and CBCon 03-11-2022 Anisocytosis Ql (Bld) Slight Normal [facility] Comment on above: Performed By: #### S CAN CBC ####[address] Basophils (Bld) [#/Vol] 0.1 10*3/uL Normal 0.0-0.2 [facility] Comment on above: Performed By: #### S CAN CBC ####[address] Basophils/100 WBC (Bld) 0.8 % Normal . [facility] Comment on above: Performed By: #### S CAN CBC ####[address] Eosinophils (Bld) [#/Vol] 0.1 10*3/uL Normal 0.0-0.45 [facility] Comment on above: Performed By: #### S CAN CBC ####[address] Eosinophils/100 WBC (Bld) 1.0 % Normal . [facility] Comment on above: Performed By: #### S CAN CBC ####[address] Erythrocyte distribution width (RBC) [Ratio] 14.4 % Normal 11.9-15.3 [facility] Comment on above: Performed By: #### S CAN CBC ####[address] Hematocrit (Bld) [Volume fraction] 24.7 % Low 34.0-46.4 [facility] Comment on above: Performed By: #### S CAN CBC ####[address] Hemoglobin (Bld) [Mass/Vol] 8.3 g/dL Low 11.8-15.4 [facility] Comment on above: Performed By: #### S CAN CBC ####[address] Hypochromasia Slight Normal [facility] Comment on above: Performed By: #### S CAN CBC ####[address] Lymphocytes (Bld) [#/Vol] 2.0 10*3/uL Normal 1.00-4.8 [facility] Comment on above: Performed By: #### S CAN CBC ####[address] Lymphocytes/100 WBC (Bld) 20.6 % Normal . [facility] Comment on above: Performed By: #### S CAN CBC ####[address] MCH (RBC) [Entitic mass] 31.5 pg Normal 24.7-34.3 [facility] Comment on above: Performed By: #### S CAN CBC ####[address] MCV (RBC) [Entitic vol] 93.5 fL Normal 80-100 [facility] Comment on above: Performed By: #### S CAN CBC ####[address] [address] [facility] Mean Corpuscular HGB Conc 33.7 g/dL Normal 32.0-35.0 [facility] Comment on above: Performed By: #### S CAN CBC ####[address] [address] [facility] Microcytosis Slight Normal [facility] Comment on above: Performed By: #### S CAN CBC ####[address] [address] [facility] Monocytes (Bld) [#/Vol] 1.1 10*3/uL High 0.0-0.8 [facility] Comment on above: Performed By: #### S CAN CBC ####[place] [id number] [facility] Monocytes/100 WBC (Bld) 11.4 % Normal . [facility] Comment on above: Performed By: #### S CAN CBC ####[address] [address] [facility] Neutrophils (Bld) [#/Vol] 6.4 10*3/uL Normal 1.8-7.7 [facility] Comment on above: Performed By: #### S CAN CBC ####[address] [address] [facility] Neutrophils/100 WBC (Bld) 66.2 % Normal . [facility] Comment on above: Performed By: #### S CAN CBC ####[address] [address] [facility] NRBC% 0.6 /100{WBC} High 0-0.5 [facility] Comment on above: Performed By: #### S CAN CBC ####[place] [id number] [facility] Platelet Estimate Normal Normal Normal [facility] Comment on above: Performed By: #### S CAN CBC ####[place] [id number] [facility] Platelet mean volume (Bld) [Entitic vol] 9.4 fL Normal 6.3-10.7 [facility] Comment on above: Performed By: #### S CAN CBC ####[address] [address] [facility] Platelet Morphology Normal Normal Normal [facility] Comment on above: Result Comment: PERF ORMED BY:[address] [place], [place] [phone] MEDICAL DIRECTORKIMBERLYN SINGER M.D. Performed By: #### S CAN CBC ####[place] [id number] [facility] Platelets (Bld) [#/Vol] 281 10*3/uL Normal 150-450 [facility] Comment on above: Performed By: #### S CAN CBC ####[place] [id number] [facility] Poikilocytosis Slight Normal [facility] Comment on above: Performed By: #### S CAN CBC ####[address] [address] [facility] Polychromasia Moderate Normal [facility] Comment on above: Performed By: #### S CAN CBC ####[place] [id number] [facility] RBC (Bld) [#/Vol] 2.64 10*6/uL Low 3.60-5.00 [facility] Comment on above: Performed By: #### S CAN CBC ####[place] [id number] [facility] WBC (Bld) [#/Vol] 9.9 10*3/uL Normal 3.8-11.6 [facility] Comment on above: Performed By: #### S CAN CBC ####[place] [id number] [facility] Basic Metabolic Panelon 12-0 -2021 Anion gap [Moles/Vol] 13.7 mmol/L Normal 6.0-15.0 [facility] Comment on above: Order Comment: TO BE DRAWN WITH VANCO PEAK PER RN Performed By: #### B MP ####[place] [address] [place] [address] [facility] Calcium [Mass/Vol] 7.2 mg/dL Low 8.2-10.2 [facility] Comment on above: Order Comment: TO BE DRAWN WITH VANCO PEAK PER RN Performed By: #### B MP ####[address] [address] [facility] Chloride [Moles/Vol] 100 mmol/L Normal 95-114 [facility] Comment on above: Order Comment: TO BE DRAWN WITH VANCO PEAK PER RN Performed By: #### B MP ####[address] [address] [facility] CO2 [Moles/Vol] 18.5 mmol/L Low 22.0-30.0 [facility] Comment on above: Order Comment: TO BE DRAWN WITH VANCO PEAK PER RN Performed By: #### B MP ####[address] [address] [facility] Creatinine [Mass/Vol] 0.63 mg/dL Normal 0.44-1.03 [facility] Comment on above: Order Comment: TO BE DRAWN WITH VANCO PEAK PER RN Performed By: #### B MP ####[address] [address] [facility] Creatinine Clr Calc Pharmacy 75.60 [facility] Comment on above: Order Comment: TO BE DRAWN WITH VANCO PEAK PER RN Result Comment: PERF ORMED BY:[address] [place], [place] [phone] MEDICAL ANDRE SINGER M.D. Performed By: #### B MP ####[address] [address] [facility] Estimated GFR ( Brenda > 60 Normal [facility] Comment on above: Order Comment: TO BE DRAWN WITH VANCO PEAK PER RN Result Comment: GFR estimated reference range: According to KDOQI guidelines, <60 ml/min/1.73m2 is sufficient to diagnose a patient with chronic kidney disease. Performed By: #### B MP ####[address] [address] [facility] Estimated GFR (Non- Am > 60 Normal [facility] Comment on above: Order Comment: TO BE DRAWN WITH VANCO PEAK PER RN Performed By: #### B MP ####[address] [address] [facility] Glucose [Mass/Vol] 181 mg/dL High 70-100 [facility] Comment on above: Order Comment: TO BE DRAWN WITH VANCO PEAK PER RN Result Comment: [place] Glucose Reference Range is dependent on time and content of last meal. Glucose of more than 200 mg/dL in a nonstressed, ambulatory subject supports the diagnosis of Diabetes Mellitus. ADA recommended reference range Performed By: #### B MP ####[place] [id number] [facility] Potassium [Moles/Vol] 3.2 mmol/L Low 3.5-5.1 [facility] Comment on above: Order Comment: TO BE DRAWN WITH VANCO PEAK PER RN Performed By: #### B MP ####[address] [address] [facility] Sodium [Moles/Vol] 129 mmol/L Low 136-146 [facility] Comment on above: Order Comment: TO BE DRAWN WITH VANCO PEAK PER RN Performed By: #### B MP ####[place] [id number] [facility] Urea nitrogen [Mass/Vol] 8 mg/dL Low 9-23 [facility] Comment on above: Order Comment: TO BE DRAWN WITH VANCO PEAK PER RN Performed By: #### B MP ####[place] [id number] [facility] Complete Blood Count Auto Di ffon 03-10-2022 Basophils (Bld) [#/Vol] 0.0 10*3/uL Normal 0.0-0.2 [facility] Comment on above: Result Comment: PERF ORMED BY:[place] [address] [address] [place], [place] [phone] MEDICAL DIRECTORKIMBERLYN SINGER M.D. Performed By: #### C BC ####[place] [address] [place] [address] [facility] Basophils/100 WBC (Bld) 0.5 % Normal . [facility] Comment on above: Performed By: #### C BC ####[place] [id number] [facility] Eosinophils (Bld) [#/Vol] 0.0 10*3/uL Normal 0.0-0.45 [facility] Comment on above: Performed By: #### C BC ####[place] [id number] [facility] Eosinophils/100 WBC (Bld) 0.6 % Normal . [facility] Comment on above: Performed By: #### C BC ####[place] [id number] [facility] Erythrocyte distribution width (RBC) [Ratio] 14.3 % Normal 11.9-15.3 [facility] Comment on above: Performed By: #### C BC ####[place] [id number] [facility] Hematocrit (Bld) [Volume fraction] 24.3 % Low 34.0-46.4 [facility] Comment on above: Performed By: #### C BC ####[place] [id number] [facility] Hemoglobin (Bld) [Mass/Vol] 8.2 g/dL Low 11.8-15.4 [facility] Comment on above: Performed By: #### C BC ####[place] [id number] [facility] Lymphocytes (Bld) [#/Vol] 1.0 10*3/uL Normal 1.00-4.8 [facility] Comment on above: Performed By: #### C BC ####[place] [id number] [facility] Lymphocytes/100 WBC (Bld) 15.1 % Normal . [facility] Comment on above: Performed By: #### C BC ####[address] [address] [facility] MCH (RBC) [Entitic mass] 32.0 pg Normal 24.7-34.3 [facility] Comment on above: Performed By: #### C BC ####[address] [address] [facility] MCV (RBC) [Entitic vol] 94.7 fL Normal 80-100 [facility] Comment on above: Performed By: #### C BC ####[address] [address] [facility] Mean Corpuscular HGB Conc 33.8 g/dL Normal 32.0-35.0 [facility] Comment on above: Performed By: #### C BC ####[address] [address] [facility] Monocytes (Bld) [#/Vol] 0.6 10*3/uL Normal 0.0-0.8 [facility] Comment on above: Performed By: #### C BC ####[address] [address] [facility] Monocytes/100 WBC (Bld) 9.5 % Normal . [facility] Comment on above: Performed By: #### C BC ####[address] [address] [facility] Neutrophils (Bld) [#/Vol] 4.8 10*3/uL Normal 1.8-7.7 [facility] Comment on above: Performed By: #### C BC ####[address] [address] [facility] Neutrophils/100 WBC (Bld) 74.3 % Normal . [facility] Comment on above: Performed By: #### C BC ####[address] [address] [facility] NRBC% 0.2 /100{WBC} Normal 0-0.5 [facility] Comment on above: Performed By: #### C BC ####[address] [place] [address] [facility] Platelet mean volume (Bld) [Entitic vol] 8.9 fL Normal 6.3-10.7 [facility] Comment on above: Performed By: #### C BC ####[place] [address] [place] [place] [address] [facility] Platelets (Bld) [#/Vol] 206 10*3/uL Normal 150-450 [facility] Comment on above: Performed By: #### C BC ####[address] [address] [facility] RBC (Bld) [#/Vol] 2.57 10*6/uL Low 3.60-5.00 [facility] Comment on above: Performed By: #### C BC ####[place] [address] [place] [id number] [facility] WBC (Bld) [#/Vol] 6.4 10*3/uL Normal 3.8-11.6 [facility] Comment on above: Performed By: #### C BC ####[address] [address] [facility] Cortisolon 03-10-2022 Cortisol 18.7 ug/dL Normal [facility] Comment on above: Result Comment: Refe rence range: AM 6 - 24 ug/dl PM <10 ug/dlPERFORMED BY:[address] [place], [place] [phone] MEDICAL DIRECTORKIMBERLYN SINGER M.D. Performed By: #### P HOS, JERRY, TSH3 ####[address] [address] [facility] ECG 12 lead ECGon 03-10-2022 ECG 12 lead ECG Normal [facility] Glucose Poct Glucometerson 1 05-11-2021 Glucose [Mass/Vol] 146 mg/dL Normal [facility] Comment on above: Result Comment: [place] Glucose Reference Range is dependent on time and content of last meal. Glucose of more than 200 mg/dL in a nonstressed, ambulatory subject supports the diagnosis of Diabetes Mellitus.PERFORMED BY:[address], [place] [phone] MEDICAL DIRECTORKIMBERLYN SINGER M.D. Performed By: #### G LULS ####Point of Care testing, Commemt1 Glu2: Cleaned Meter [facility] Comment on above: Result Comment: PERF ORMED BY:[address] [address] [address] [place], [place] [phone] MEDICAL DIRECTORKIMBERLYN SINGER M.D. Performed By: #### G LULS ####Point of Care testing, Glucose [Mass/Vol] 173 mg/dL Normal [facility] Comment on above: Result Comment: [place] om Glucose Reference Range is dependent on time and content of last meal. Glucose of more than 200 mg/dL in a nonstressed, ambulatory subject supports the diagnosis of Diabetes Mellitus. Performed By: #### G LULS ####Point of Care testing, Commemt1 Glu2: Cleaned Meter [facility] Comment on above: Result Comment: PERF ORMED BY:[address] [place], [place] [phone] MEDICAL DIRECTORKIMBERLYN SINGER M.D. Performed By: #### G LULS ####Point of Care testing, Glucose [Mass/Vol] 171 mg/dL Normal [facility] Comment on above: Result Comment: [place] [facility] Glucose Reference Range is dependent on time and content of last meal. Glucose of more than 200 mg/dL in a nonstressed, ambulatory subject supports the diagnosis of Diabetes Mellitus. Performed By: #### G LULS ####Point of Care testing, Commemt1 Glu2: Cleaned Meter [facility] Comment on above: Result Comment: PERF ORMED BY:[address] [address] [place] [place], [place] [phone] MEDICAL ANDRE SINGER M.D. Performed By: #### G LULS ####Point of Care testing, Glucose [Mass/Vol] 183 mg/dL Normal [facility] Comment on above: Result Comment: [place] om Glucose Reference Range is dependent on time and content of last meal. Glucose of more than 200 mg/dL in a nonstressed, ambulatory subject supports the diagnosis of Diabetes Mellitus. Performed By: #### G CHUCK ####Point of Care testing, MR head/brain wo/w conon MR head/brain wo/w con Normal [facility] Phosphoruson 03-10-2022 Phosphate [Mass/Vol] 2.5 mg/dL Normal 2.5-4.6 [facility] Comment on above: Performed By: #### P HOS, JERRY, TSH3 ####[address] [place] [address] [facility] Random cortisol measurementO rdered By: Denice Buckner on 03-10-2022 Cortisol [Mass/Vol] 18.7 ug/dL [facility] Comment on above: Reference range: AM 6 - 24 ug/dl PM <10 ug/dl TSH DL <= 0.005 mIU/L QnOrde red By: Denice Buckner on 03-10-2022 TSH Qn 1.62 m[IU]/L 0.45-5.33 [facility] Thyroid Stimulating Hormoneo n 03-10-2022 TSH Qn 1.62 m[IU]/L Normal 0.45-5.33 [facility] Comment on above: Performed By: #### P HOS, JERRY, TSH3 ####[address] [address] [facility] Complete Blood Count Auto Di ffon 03-09-2022 Basophils (Bld) [#/Vol] 0.0 10*3/uL Normal 0.0-0.2 [facility] Comment on above: Result Comment: PERF ORMED BY:[address] [place], [place] [phone] MEDICAL ANDRE SINGER M.D. Performed By: #### C BC ####[address] [place] [address] [facility] Basophils/100 WBC (Bld) 0.2 % Normal . [facility] Comment on above: Performed By: #### C BC ####[place] [id number] [facility] Eosinophils (Bld) [#/Vol] 0.0 10*3/uL Normal 0.0-0.45 [facility] Comment on above: Performed By: #### C BC ####[place] [id number] [facility] Eosinophils/100 WBC (Bld) 0.5 % Normal . [facility] Comment on above: Performed By: #### C BC ####[place] [id number] [facility] Erythrocyte distribution width (RBC) [Ratio] 14.2 % Normal 11.9-15.3 [facility] Comment on above: Performed By: #### C BC ####[place] [id number] [facility] Hematocrit (Bld) [Volume fraction] 20.5 % Low 34.0-46.4 [facility] Comment on above: Performed By: #### C BC ####[place] [id number] [facility] Hemoglobin (Bld) [Mass/Vol] 7.0 g/dL Low 11.8-15.4 [facility] Comment on above: Performed By: #### C BC ####[place] [id number] [facility] Lymphocytes (Bld) [#/Vol] 1.5 10*3/uL Normal 1.00-4.8 [facility] Comment on above: Performed By: #### C BC ####[place] [address] [facility] Lymphocytes/100 WBC (Bld) 23.2 % Normal . [facility] Comment on above: Performed By: #### C BC ####[place] [id number] [facility] MCH (RBC) [Entitic mass] 31.9 pg Normal 24.7-34.3 [facility] Comment on above: Performed By: #### C BC ####[address] [address] [facility] MCV (RBC) [Entitic vol] 93.5 fL Normal 80-100 [facility] Comment on above: Performed By: #### C BC ####[place] [id number] [facility] Mean Corpuscular HGB Conc 34.1 g/dL Normal 32.0-35.0 [facility] Comment on above: Performed By: #### C BC ####[place] [id number] [facility] Monocytes (Bld) [#/Vol] 1.0 10*3/uL High 0.0-0.8 [facility] Comment on above: Performed By: #### C BC ####[place] [address] [facility] Monocytes/100 WBC (Bld) 15.3 % Normal . [facility] Comment on above: Performed By: #### C BC ####[place] [id number] [facility] Neutrophils (Bld) [#/Vol] 3.8 10*3/uL Normal 1.8-7.7 [facility] Comment on above: Performed By: #### C BC ####[place] [address] [facility] Neutrophils/100 WBC (Bld) 60.8 % Normal . [facility] Comment on above: Performed By: #### C BC ####[place] [address] [facility] NRBC% 0.1 /100{WBC} Normal 0-0.5 [facility] Comment on above: Performed By: #### C BC ####[place] [id number] [facility] Platelet mean volume (Bld) [Entitic vol] 8.6 fL Normal 6.3-10.7 [facility] Comment on above: Performed By: #### C BC ####[place] [id number] [facility] Platelets (Bld) [#/Vol] 192 10*3/uL Signific ant change down 150-450 [facility] Comment on above: Performed By: #### C BC ####[place] [id number] [facility] RBC (Bld) [#/Vol] 2.20 10*6/uL Low 3.60-5.00 [facility] Comment on above: Performed By: #### C BC ####[place] [id number] [facility] WBC (Bld) [#/Vol] 6.3 10*3/uL Normal 3.8-11.6 [facility] Comment on above: Performed By: #### C BC ####[place] [id number] [facility] Comprehensive Metabolic Pane jeremy 03-09-2022 Albumin [Mass/Vol] 1.8 g/dL Low 3.2-5.5 [facility] Comment on above: Performed By: #### Rosemary Saleem, CMP ####[place] [id number] [facility] Albumin/Globulin [Mass ratio] 0.8 {ratio} Normal [facility] Comment on above: Performed By: #### Rosemary Saleem, CMP ####[place] [id number] [facility] ALP [Catalytic activity/Vol] 88 U/L Normal 32-92 [facility] Comment on above: Performed By: #### Rosemary Saleem, CMP ####[place] [id number] [facility] ALT [Catalytic activity/Vol] 10 U/L Normal 10-60 [facility] Comment on above: Performed By: #### Rosemary Saleem, CMP ####[place] [id number] [facility] Anion gap [Moles/Vol] 8.4 mmol/L Normal 6.0-15.0 [facility] Comment on above: Performed By: #### Rosemary Saleem, CMP ####[address] [place] [address] [facility] AST [Catalytic activity/Vol] 12 U/L Normal 10-42 [facility] Comment on above: Performed By: #### Rosemary Saleem, CMP ####[place] [id number] [facility] Bilirubin [Mass/Vol] 0.6 mg/dL Normal 0.3-1.2 [facility] Comment on above: Performed By: #### Rosemary Saleem, CMP ####[place] [id number] [facility] Calcium [Mass/Vol] 6.6 mg/dL Low 8.2-10.2 [facility] Comment on above: Performed By: #### Rosemary Saleem, CMP ####[address] Chloride [Moles/Vol] 101 mmol/L Normal 95-114 [facility] Comment on above: Performed By: #### Rosemary Saleem, CMP ####[place] [id number] [facility] CO2 [Moles/Vol] 22.9 mmol/L Normal 22.0-30.0 [facility] Comment on above: Performed By: #### Rosemary Saleem, CMP ####[place] [id number] [facility] Creatinine [Mass/Vol] 0.63 mg/dL Normal 0.44-1.03 [facility] Comment on above: Performed By: #### Rosemary Saleem, CMP ####[place] [id number] [facility] Creatinine Clr Calc Pharmacy 82.80 [facility] Comment on above: Performed By: #### Rosemary Saleem, CMP ####[place] [id number] [facility] Estimated GFR ( Brenda > 60 [facility] Comment on above: Result Comment: GFR estimated reference range: According to KDOQI guidelines, <60 ml/min/1.73m2 is sufficient to diagnose a patient with chronic kidney disease. Performed By: #### Rosemary Saleem, CMP ####[address] [place] [address] [facility] Estimated GFR (Non- Am > 60 Normal [facility] Comment on above: Performed By: #### M Harper, CMP ####[address] [address] [facility] Globulin (S) [Mass/Vol] 2.4 g/dL Normal [facility] Comment on above: Performed By: #### M Harper, CMP ####[place] [id number] [facility] Glucose [Mass/Vol] 201 mg/dL High 70-100 [facility] Comment on above: Result Comment: [facility] Glucose Reference Range is dependent on time and content of last meal. Glucose of more than 200 mg/dL in a nonstressed, ambulatory subject supports the diagnosis of Diabetes Mellitus. ADA recommended reference range Performed By: #### M Harper, CMP ####[place] [id number] [facility] Potassium [Moles/Vol] 3.3 mmol/L Low 3.5-5.1 [facility] Comment on above: Performed By: #### Rosemary Saleem, CMP ####[place] [id number] [facility] Protein [Mass/Vol] 4.2 g/dL Low 6.1-7.9 [facility] Comment on above: Performed By: #### Rosemary Saleem, CMP ####[place] [id number] [facility] Sodium [Moles/Vol] 129 mmol/L Low 136-146 [facility] Comment on above: Performed By: #### M Harper, CMP ####[place] [id number] [facility] Urea nitrogen [Mass/Vol] 11 mg/dL Normal 9-23 [facility] Comment on above: Performed By: #### M G, CMP ####[address] [address] [facility] Ethyl Alcohol Profileon 12-0 Ethanol [Mass/Vol] mg/dL Normal [facility] Comment on above: Performed By: #### E SUSIE ####[facility] [id number] [place] [address] [place] Percent Ethanol Not performed Normal [facility] Comment on above: Result Comment: PERF ORMED BY:[address] [address] [address] [place], [place] [phone] MEDICAL DIRECTORKIMBERLYN SINGER M.D. Performed By: #### E SUSIE ####[address] [address] [facility] Glucose Poct Glucometerson 1 05-10-2021 Glucose [Mass/Vol] 143 mg/dL Normal [facility] Comment on above: Result Comment: [facility] Glucose Reference Range is dependent on time and content of last meal. Glucose of more than 200 mg/dL in a nonstressed, ambulatory subject supports the diagnosis of Diabetes Mellitus.PERFORMED BY:[address] [address] [address] [place], [place] [phone] MEDICAL ANDRE SINGER M.D. Performed By: #### G LULS ####Point of Care testing, Glucose [Mass/Vol] 180 mg/dL Normal [facility] Comment on above: Result Comment: [facility] Glucose Reference Range is dependent on time and content of last meal. Glucose of more than 200 mg/dL in a nonstressed, ambulatory subject supports the diagnosis of Diabetes Mellitus.PERFORMED BY:[address] [address] [place] [place], [place] [phone] MEDICAL ANDRE SINGER M.D. Performed By: #### G LULS ####Point of Care testing, Commemt1 Glu2: Cleaned Meter Normal [facility] Comment on above: Result Comment: PERF ORMED BY:[address] [address] [place] [place], [place] [phone] VIVI SINGER M.D. Performed By: #### G LULS ####Point of Care testing, Glucose [Mass/Vol] 230 mg/dL Normal [facility] Comment on above: Result Comment: [facility] Glucose Reference Range is dependent on time and content of last meal. Glucose of more than 200 mg/dL in a nonstressed, ambulatory subject supports the diagnosis of Diabetes Mellitus. Performed By: #### G CHUCK ####Point of Care testing, Hemoglobin and Hematocriton 03-09-2022 Hematocrit (Bld) [Volume fraction] 22.3 % Low 34.0-46.4 [facility] Comment on above: Result Comment: PERF ORMED BY:[address] [address] [place] [place], [place] [phone] MEDICAL DIRECTORKIMBERLYN SINGER M.D. Performed By: #### H H ####[address] [address] [facility] Hemoglobin (Bld) [Mass/Vol] 7.5 g/dL Low 11.8-15.4 [facility] Comment on above: Performed By: #### H H ####[address] [address] [facility] Magnesiumon 03-09-2022 Magnesium [Mass/Vol] 2.0 mg/dL Significant change down 1.6-2.6 [facility] Comment on above: Result Comment: PERF ORMED BY:[address] [address] [address] [place], [place] [phone] MEDICAL DIRECTORKIMBERLYN SINGER M.D. Performed By: #### M G, CMP ####[address] [address] [facility] Serum or plasma ethanol john urement (mass/volume)Ordered By: Deangelo Kulkarni on 03-09-2022 Ethanol [Mass/Vol] mg/dL [facility] Ethanol [Mass/Vol] TNP [facility] Comment on above: Test not performed Activated partial thrombopla stin time (aPTT) in platelet poor plasma by coagulation aOrdered By: Tammy Smyth on 03-08-2022 aPTT Coag (PPP) [Time] 31.5 s 25.1-36.5 [facility] Albumin [Mass/volume] in Ser um or PlasmaOrdered By: Tammy Smyth on 03-08-2022 Albumin [Mass/Vol] 2.6 g/dL 3.2-5.5 [facility] Ammoniaon 03-08-2022 Ammonia (P) [Mass/Vol] ug/dL Low 11-35 [facility] Comment on above: Order Comment: TOO O LD TO USE NOW PER CHEM Result Comment: PERF ORMED BY:[facility] [place], [place] [phone] MEDICAL DIRECTORKIMBERLYN SINGER M.D. Performed By: #### A MM ####[facility] [place] [address] [facility] Amphetamine Screen Ql (U)Ord ered By: Tammy Smyth on 03-08-2022 Amphetamines Ql (U) Negative Negative [facility] Anisocytosis LM Ql (Bld)Orde red By: Tammy Smyth on 03-08-2022 Anisocytosis Ql (Bld) Slight [facility] Arterial Blood Gason 022 ABG Base Excess -1.4 mmol/L Normal -3.0-3.0 [facility] Comment on above: Performed By: #### A BG ####Point of Care testing, ABG Frac Inspired O2 21 % Normal [facility] Comment on above: Performed By: #### A BG ####Point of Care testing, ABG Oxygen Content 3.3 mmol/L Low 6.6-9.7 [facility] Comment on above: Performed By: #### A BG ####Point of Care testing, ABG Oxygen Saturation 58.4 % Low 95.0-100.0 [facility] Comment on above: Performed By: #### A BG ####Point of Care testing, ABG PCO2 29.2 mm[Hg] Off scale low 35.0-45.0 [facility] Comment on above: Performed By: #### A BG ####Point of Care testing, ABG PH 7.48 High 7.35-7.45 [facility] Comment on above: Performed By: #### A BG ####Point of Care testing, ABG PO2 30.3 mm[Hg] Off scale low 80.0-100.0 [facility] Comment on above: Performed By: #### A BG ####Point of Care testing, CO2 [Moles/Vol] 22.4 mmol/L Low 23.0-27.0 [facility] Comment on above: Performed By: #### A BG ####Point of Care testing, HCO3 (Bld) [Moles/Vol] 21.5 mmol/L Low 23.0-29.0 [facility] Comment on above: Performed By: #### A BG ####Point of Care testing, Respiratory Critical Normal [facility] Comment on above: Result Comment: Crit ical Value called on: 03/08/2022 at 15:52PERFORMED BY:[address] [id number] [place] [place], [place] [phone] MEDICAL DIRECTORKIMBERLYN SINGER M.D. Performed By: #### A BG ####Point of Care testing, VBG Draw Site Venous Normal [facility] Comment on above: Performed By: #### A BG ####Point of Care testing, Automated erythrocytes count in urine sediment (number/area)Ordered By: Tammy Smyth on 03-08-2022 RBC Auto (Urine sed) [#/Area] 5-9 [HPF] 0-4 [facility] Automated leukocytes count i n urine sediment (number/area)Ordered By: Tammy Smyth on 03-08-2022 WBC Auto (Urine sed) [#/Area] 0-1 [HPF] 0-4 [facility] Barbiturates [Presence] in U rineOrdered By: Tammy Smyth on 03-08-2022 Barbiturates Ql (U) Negative Negative [facility] Basic Metabolic Panelon Anion gap [Moles/Vol] 11.0 mmol/L Normal 6.0-15.0 [facility] Comment on above: Order Comment: RN NO TIFIED NO VEINS Performed By: #### B MP ####[address] [place] [address] [facility] Calcium [Mass/Vol] 6.7 mg/dL Low 8.2-10.2 [facility] Comment on above: Order Comment: RN NO TIFIED NO VEINS Performed By: #### B MP ####[address] [address] [facility] Chloride [Moles/Vol] 94 mmol/L Low 95-114 [facility] Comment on above: Order Comment: RN NO TIFIED NO VEINS Performed By: #### B MP ####[address] [address] [facility] CO2 [Moles/Vol] 23.3 mmol/L Normal 22.0-30.0 [facility] Comment on above: Order Comment: RN NO TIFIED NO VEINS Performed By: #### B MP ####[address] [address] [facility] Creatinine [Mass/Vol] 0.65 mg/dL Normal 0.44-1.03 [facility] Comment on above: Order Comment: RN NO TIFIED NO VEINS Performed By: #### B MP ####[place] [id number] [facility] Creatinine Clr Calc Pharmacy 82.80 [facility] Comment on above: Order Comment: RN NO TIFIED NO VEINS Result Comment: PERF ORMED BY:[address] [address] [address] [place], [place] [phone] MEDICAL ANDRE SINGER M.D. Performed By: #### B MP ####[address] [address] [facility] Estimated GFR ( Brenda > 60 [facility] Comment on above: Order Comment: RN NO TIFIED NO VEINS Result Comment: GFR estimated reference range: According to KDOQI guidelines, <60 ml/min/1.73m2 is sufficient to diagnose a patient with chronic kidney disease. Performed By: #### B MP ####[address] [address] [facility] Estimated GFR (Non- Am > 60 Normal [facility] Comment on above: Order Comment: RN NO TIFIED NO VEINS Performed By: #### B MP ####[place] [id number] [facility] Glucose [Mass/Vol] 220 mg/dL High 70-100 [facility] Comment on above: Order Comment: RN NO TIFIED NO VEINS Result Comment: [facility] Glucose Reference Range is dependent on time and content of last meal. Glucose of more than 200 mg/dL in a nonstressed, ambulatory subject supports the diagnosis of Diabetes Mellitus. ADA recommended reference range Performed By: #### B MP ####[place] [id number] [facility] Potassium [Moles/Vol] 3.3 mmol/L Low 3.5-5.1 [facility] Comment on above: Order Comment: RN NO TIFIED NO VEINS Performed By: #### B MP ####[place] [address] [facility] Sodium [Moles/Vol] 125 mmol/L Low 136-146 [facility] Comment on above: Order Comment: RN NO TIFIED NO VEINS Performed By: #### B MP ####[place] [id number] [facility] Urea nitrogen [Mass/Vol] 10 mg/dL Normal 9-23 [facility] Comment on above: Order Comment: RN NO TIFIED NO VEINS Performed By: #### B MP ####[place] [address] [facility] Anion gap [Moles/Vol] 5.7 mmol/L Low 6.0-15.0 [facility] Comment on above: Performed By: #### B MP ####[place] [address] [facility] Calcium [Mass/Vol] 7.0 mg/dL Low 8.2-10.2 [facility] Comment on above: Performed By: #### B MP ####[place] [address] [facility] Chloride [Moles/Vol] 103 mmol/L Normal 95-114 [facility] Comment on above: Performed By: #### B MP ####[address] [address] [facility] CO2 [Moles/Vol] 20.3 mmol/L Low 22.0-30.0 [facility] Comment on above: Performed By: #### B MP ####[address] [address] [facility] Creatinine [Mass/Vol] 0.58 mg/dL Normal 0.44-1.03 [facility] Comment on above: Performed By: #### B MP ####[place] [address] [facility] Creatinine Clr Calc Pharmacy 82.80 [facility] Comment on above: Result Comment: PERF ORMED BY:[address] [place], [place] [phone] MEDICAL DIRECTORKIMBERLYN SINGER M.D. Performed By: #### B MP ####[address] [address] [facility] Estimated GFR ( Brenda > 60 [facility] Comment on above: Result Comment: GFR estimated reference range: According to KDOQI guidelines, <60 ml/min/1.73m2 is sufficient to diagnose a patient with chronic kidney disease. Performed By: #### B MP ####[place] [address] [facility] Estimated GFR (Non- Am > 60 [facility] Comment on above: Performed By: #### B MP ####[place] [address] [facility] Glucose [Mass/Vol] 202 mg/dL High 70-100 [facility] Comment on above: Result Comment: [place] [facility] Glucose Reference Range is dependent on time and content of last meal. Glucose of more than 200 mg/dL in a nonstressed, ambulatory subject supports the diagnosis of Diabetes Mellitus. ADA recommended reference range Performed By: #### B MP ####[place] [id number] [facility] Potassium [Moles/Vol] 3.0 mmol/L Low 3.5-5.1 [facility] Comment on above: Performed By: #### B MP ####[place] [address] Sodium [Moles/Vol] 126 mmol/L Low 136-146 [facility] Comment on above: Performed By: #### B MP ####[place] [address] Urea nitrogen [Mass/Vol] 8 mg/dL Low 9-23 [facility] Comment on above: Performed By: #### B MP ####[address] Basophils Auto (Bld) [#/Vol] Ordered By: Tammy Smyth on 03-08-2022 Basophils (Bld) [#/Vol] 0.0 10*3/uL 0.0-0.2 [facility] Basophils/100 WBC Auto (Bld) Ordered By: Tammy Smyth on 03-08-2022 Basophils/100 WBC (Bld) 0.1 % . [facility] Benzodiazepines [Presence] i n UrineOrdered By: Tammy Smyth on 03-08-2022 Benzodiazepines Ql (U) Negative Negative [facility] Bilirubin Test strip Ql (U)O rdered By: Tammy Smyth on 03-08-2022 Bilirubin Ql (U) Negative Negative [facility] Blood Cultureon 03-08-2022 Bacteria identified Cx Nom (Bld) NO GROWTH 5 DAYS PERFORMED BY: [facility] [address] [place] [id number] PATHOLOGIST TILLER MAN KIMBERLYN SINGER M.D. [facility] Comment on above: Performed By: #### C UBLD, LACTIC ####[place] [address] [place] [id number] [facility] Bacteria identified Cx Nom (Bld) [facility] Comment on above: Performed By: #### C UBLD, LACTIC ####[place] [address] [place] [address] [facility] COVID CepheidOrdered By: Ame rayshawn Smyth on 03-08-2022 SARS-CoV-2 (COVID-19) Ab IA Ql Negative Negative [facility] Comment on above: This is a duplicate Cepheid Xpert Xpress CoV-2/Flu/RSV Plus RNA by RT-PCR result to be used for statistical tracking purpose only. SARS-CoV-2 (COVID-19) RNA TESFAYE+probe Ql (Unsp spec) [facility] SARS-CoV-2 (COVID-19) RNA TESFAYE+probe Ql (Unsp spec) [facility] COVID-19 / Flu A/B / RSV PCR on 03-08-2022 SARS-CoV-2 (COVID-19) RNA TESFAYE+probe Ql (Unsp spec) Normal [facility] Comment on above: Performed By: #### C OVID19 FLU RSV, CEPHEID NEG ####[address] [address] [facility] [address] head/brain wo conon 03-08 CT head/brain wo con Normal [facility] Cannabinoids [Presence] in U rine by Screen methodOrdered By: Tammy Smyth on 03-08-2022 Cannabinoids Screen Ql (U) Positive Negative [facility] Comment on above: These are unconfirme d results and should not be used for legal purposes. Drug Cut-Off Concentration: AMPH 1000 ng/mL LUCIA 200 ng/mL SONDRA 200 ng/mL COCM 300 ng/mL OP 300 ng/mL PCP 25 ng/mL THC 20 ng/mL Cepheid COVID PCR Negativeon 03-08-2022 SARS-CoV-2 (COVID-19) RNA TESFAYE+probe Ql (Unsp spec) Negative Normal Negative [facility] Comment on above: Result Comment: This is a duplicate Cepheid Xpert Xpress CoV-2/Flu/RSV Plus RNA by RT-PCR result to be used for statistical tracking purpose only.PERFORMED BY:[address] [place], [place] [id number] MEDICAL ANDRE SINGER M.D. Performed By: #### C OVID19 FLU RSV, CEPHEID NEG ####[place] [address] Color Auto (U)Ordered By: Dolores Smyth on 03-08-2022 Color (U) Yellow Yellow [facility] Comprehensive Metabolic Pane jeremy 03-08-2022 Albumin [Mass/Vol] 2.6 g/dL Low 3.2-5.5 [facility] Comment on above: Performed By: #### H S TROP, PT, CK, CKMB, PTT, CMP, SCAN CBC ####[address] Albumin/Globulin [Mass ratio] 0.9 {ratio} Normal [facility] Comment on above: Performed By: #### H S TROP, PT, CK, CKMB, PTT, CMP, SCAN CBC ####[address] ALP [Catalytic activity/Vol] 132 U/L High 32-92 [facility] Comment on above: Performed By: #### H S TROP, PT, CK, CKMB, PTT, CMP, SCAN CBC ####[address] ALT [Catalytic activity/Vol] 13 U/L Normal 10-60 [facility] Comment on above: Performed By: #### H S TROP, PT, CK, CKMB, PTT, CMP, SCAN CBC ####[place] [id number] [facility] Anion gap [Moles/Vol] 16.3 mmol/L High 6.0-15.0 [facility] Comment on above: Performed By: #### H S TROP, PT, CK, CKMB, PTT, CMP, SCAN CBC ####[address] AST [Catalytic activity/Vol] 17 U/L Normal 10-42 [facility] Comment on above: Performed By: #### H S TROP, PT, CK, CKMB, PTT, CMP, SCAN CBC ####[place] [id number] [facility] Bilirubin [Mass/Vol] 1.1 mg/dL Normal 0.3-1.2 [facility] Comment on above: Performed By: #### H S TROP, PT, CK, CKMB, PTT, CMP, SCAN CBC ####[place] [address] Calcium [Mass/Vol] 7.5 mg/dL Low 8.2-10.2 [facility] Comment on above: Performed By: #### H S TROP, PT, CK, CKMB, PTT, CMP, SCAN CBC ####[address] Chloride [Moles/Vol] 87 mmol/L Low 95-114 [facility] Comment on above: Performed By: #### H S TROP, PT, CK, CKMB, PTT, CMP, SCAN CBC ####[address] CO2 [Moles/Vol] 21.2 mmol/L Low 22.0-30.0 [facility] Comment on above: Performed By: #### H S TROP, PT, CK, CKMB, PTT, CMP, SCAN CBC ####[address] Creatinine [Mass/Vol] 0.69 mg/dL Normal 0.44-1.03 [facility] Comment on above: Performed By: #### H S TROP, PT, CK, CKMB, PTT, CMP, SCAN CBC ####[address] Creatinine Clr Calc Pharmacy 82.80 [facility] Comment on above: Result Comment: PERF ORMED BY:[address] [place], [place] [phone] MEDICAL DIRECTORKIMBERLYN SINGER M.D. Performed By: #### H S TROP, PT, CK, CKMB, PTT, CMP, SCAN CBC ####[address] Estimated GFR ( Brenda > 60 [facility] Comment on above: Result Comment: GFR estimated reference range: According to KDOQI guidelines, <60 ml/min/1.73m2 is sufficient to diagnose a patient with chronic kidney disease. Performed By: #### H S TROP, PT, CK, CKMB, PTT, CMP, SCAN CBC ####[address] Estimated GFR (Non- Am > 60 Normal [facility] Comment on above: Performed By: #### H S TROP, PT, CK, CKMB, PTT, CMP, SCAN CBC ####[place] [id number] Globulin (S) [Mass/Vol] 3.0 g/dL Normal [facility] Comment on above: Performed By: #### H S TROP, PT, CK, CKMB, PTT, CMP, SCAN CBC ####[address] Glucose [Mass/Vol] 229 mg/dL High 70-100 [facility] Comment on above: Result Comment: [place] Glucose Reference Range is dependent on time and content of last meal. Glucose of more than 200 mg/dL in a nonstressed, ambulatory subject supports the diagnosis of Diabetes Mellitus. ADA recommended reference range Performed By: #### H S TROP, PT, CK, CKMB, PTT, CMP, SCAN CBC ####[address] Potassium [Moles/Vol] 2.5 mmol/L Off scale low 3.5-5.1 [facility] Comment on above: Result Comment: Resu lts called at 1424 on 03/08/22 Performed By: #### H S TROP, PT, CK, CKMB, PTT, CMP, SCAN CBC ####[address] Protein [Mass/Vol] 5.6 g/dL Low 6.1-7.9 [facility] Comment on above: Performed By: #### H S TROP, PT, CK, CKMB, PTT, CMP, SCAN CBC ####[address] [place] [address] [facility] Sodium [Moles/Vol] 122 mmol/L Off scale low 136-146 [facility] Comment on above: Result Comment: at 1 424 on 03/08/22 Performed By: #### H S TROP, PT, CK, CKMB, PTT, CMP, SCAN CBC ####[place] [id number] [facility] Urea nitrogen [Mass/Vol] 11 mg/dL Normal 9-23 [facility] Comment on above: Performed By: #### H S TROP, PT, CK, CKMB, PTT, CMP, SCAN CBC ####[place] [id number] [facility] Creatine Kinaseon 03-08-2022 CK [Catalytic activity/Vol] 46 U/L Normal [facility] Comment on above: Performed By: #### H S TROP, PT, CK, CKMB, PTT, CMP, SCAN CBC ####[address] Creatine kinase [Enzymatic a ctivity/volume] in Serum or PlasmaOrdered By: Tammy Smyth on 03-08-2022 CK [Catalytic activity/Vol] 46 U/L [facility] Creatinine Kinase MBon 03-08 CK.MB [Mass/Vol] 1.3 ng/mL Normal 0.6-6.3 [facility] Comment on above: Performed By: #### H S TROP, PT, CK, CKMB, PTT, CMP, SCAN CBC ####[place] [id number] [facility] CKMB Relative Index 2.8 % High 0.00-2.50 [facility] Comment on above: Performed By: #### H S TROP, PT, CK, CKMB, PTT, CMP, SCAN CBC ####[address] Creatinine and Glomerular fi ltration rate.predicted panel (S/P/Bld)Ordered By: Tammy Smyth on 03-08-2022 Creatinine [Mass/Vol] 0.58 mg/dL 0.44-1.03 [facility] Dipstick and Microscopicon 1 05-09-2021 Appearance (U) Clear Normal Clear [facility] Comment on above: Order Comment: Name Collection Type:: Straight Catheter Performed By: #### A DDONUAPLUS, URDS ####[place] [address] [place] [address] [facility] Bacteria,Urine None Seen Normal None Seen [facility] Comment on above: Order Comment: Name Collection Type:: Straight Catheter Performed By: #### A DDONUAPLUS, URDS ####[address] [address] [place] Bilirubin,Urine Negative Normal Negative [facility] Comment on above: Order Comment: Name Collection Type:: Straight Catheter Performed By: #### A DDONUAPLUS, URDS ####[address] [address] [place] Color (U) Yellow Normal Yellow [facility] Comment on above: Order Comment: Name Collection Type:: Straight Catheter Performed By: #### A DDONUAPLUS, URDS ####[address] [address] [place] Glucose Ql (U) 250 mg/dL High Normal [facility] Comment on above: Order Comment: Name Collection Type:: Straight Catheter Performed By: #### A DDONUAPLUS, URDS ####[address] [address] [place] Hyaline Casts,Urine 0-8 Normal 0-8 [facility] Comment on above: Order Comment: Name Collection Type:: Straight Catheter Result Comment: PERF ORMED BY:[address] [place], [place] [phone] MEDICAL DIRECTORKIMBERLYN SINGER M.D. Performed By: #### A DDONUAPLUS, URDS ####[place] [address] [place] [address] [place] Ketones Ql (U) 2+ High Negative [facility] Comment on above: Order Comment: Name Collection Type:: Straight Catheter Performed By: #### A DDONUAPLUS, URDS ####[place] [address] [place] [address] [facility] Leukocyte esterase Test strip Ql (U) Negative Normal Negative [facility] Comment on above: Order Comment: Name Collection Type:: Straight Catheter Performed By: #### A DDONUAPLUS, URDS ####[address] [address] [facility] Nitrite,Urine Negative Normal Negative [facility] Comment on above: Order Comment: Name Collection Type:: Straight Catheter Performed By: #### A DDONUAPLUS, URDS ####[address] [address] [facility] Occult Blood,Urine Trace High Negative [facility] Comment on above: Order Comment: Name Collection Type:: Straight Catheter Result Comment: PERF ORMED BY:[address] [place], [place] [id number] MEDICAL DIRECTORKIMBERLYN SINGER M.D. Performed By: #### A DDONUAPLUS, URDS ####[address] [address] [facility] pH (U) 8.0 [pH] Normal 5.0-9.0 [facility] Comment on above: Order Comment: Name Collection Type:: Straight Catheter Performed By: #### A DDONUAPLUS, URDS ####[address] [address] [facility] Protein (U) [Mass/Vol] 30 mg/dL High Negative [facility] Comment on above: Order Comment: Name Collection Type:: Straight Catheter Performed By: #### A DDONUAPLUS, URDS ####[address] [address] [place] RBC,Urine 5-9 High 0-4 [facility] Comment on above: Order Comment: Name Collection Type:: Straight Catheter Performed By: #### A DDONUAPLUS, URDS ####[address] [address] [facility] Renal Epithelial Cells,Urine None Seen Normal 0-1 [facility] Comment on above: Order Comment: Name Collection Type:: Straight Catheter Performed By: #### A DDONUAPLUS, URDS ####[address] [address] [facility] Specificy [place],Urine 1.015 Normal 1.00 1-1.03 0 [facility] Comment on above: Order Comment: Name Collection Type:: Straight Catheter Performed By: #### A DDONUAPLUS, URDS ####[address] [address] [facility] Squamous Epithelial Cell,Urine 1-2 Normal 0-2 [facility] Comment on above: Order Comment: Name Collection Type:: Straight Catheter Performed By: #### A DDONUAPLUS, URDS ####[address] [address] [facility] Urobilinogen,Urine Normal Normal Normal [facility] Comment on above: Order Comment: Name Collection Type:: Straight Catheter Performed By: #### A DDONUAPLUS, URDS ####[address] [address] [facility] WBC LM.HPF (Urine sed) [#/Area] 0 /[HPF] Normal 0-4 [facility] Comment on above: Order Comment: Name Collection Type:: Straight Catheter Performed By: #### A DDONUAPLUS, URDS ####[address] [address] [facility] Drug Screen,Urineon 03-08-20 22 Amphetamine Screen,Urine Negative Normal Negative [facility] Comment on above: Performed By: #### A DDONUAPLUS, URDS ####[address] [address] [facility] Barbiturate Screen,Urine Negative Normal Negative [facility] Comment on above: Performed By: #### A DDONUAPLUS, URDS ####[address] [address] [facility] Benzodiazepines Screen,Urine Negative Normal Negative [facility] Comment on above: Performed By: #### A DDONUAPLUS, URDS ####[address] [place] [address] [place] Cannabinoid Screen,Urine Positive High Negative [facility] Comment on above: Result Comment: Thes e are unconfirmed results and should not be used for legal purposes. Drug Cut-Off Concentration: AMPH 1000 ng/mL LUCIA 200 ng/mL SONDRA 200 ng/mL COCM 300 ng/mL OP 300 ng/mL PCP 25 ng/mL THC 20 ng/mLPERFORMED BY:[address] [place], [place] [phone] MEDICAL DIRECTORKIMBERLYN SINGER M.D. Performed By: #### A DDONUAPLUS, URDS ####[address] Cocaine Screen,Urine Negative Normal Negative [facility] Comment on above: Performed By: #### A DDONUAPLUS, URDS ####[address] Opiate Screen,Urine Negative Normal Negative [facility] Comment on above: Performed By: #### A DDONUAPLUS, URDS ####[place] [id number] [facility] Phencyclidine Screen,Urine Negative Normal Negative [facility] Comment on above: Performed By: #### A DDONUAPLUS, URDS ####[address] ECG 12 lead ECGon 03-08-2022 ECG 12 lead ECG Normal [facility] ECG 12 lead ECG Normal [facility] Eosinophils Auto (Bld) [#/Vo l]Ordered By: Tammy Smyth on 03-08-2022 Eosinophils (Bld) [#/Vol] 0.0 10*3/uL 0.0-0.45 [facility] Eosinophils/100 WBC Auto (Bl d)Ordered By: Tammy Smyth on 03-08-2022 Eosinophils/100 WBC (Bld) 0.0 % . [facility] Erythrocyte distribution wid th Auto (RBC) [Ratio]Ordered By: Tammy Smyth on 03-08-2022 Erythrocyte distribution width (RBC) [Ratio] 14.2 % 11.9-15.3 [facility] Estimated glomerular filtrat ion rate (GFR) non- AmericanOrdered By: Tammy Smyth on 03-08-2022 GFR/1.73 sq M.predicted among non-blacks MDRD (S/P/Bld) [Vol rate/Area] > 60 mL/Min [facility] Ethanol [Mass/volume] in Uri neOrdered By: Denice Buckner on 03-08-2022 Ethanol (U) [Mass/Vol] See comment . [facility] Comment on above: Test not performed. Insufficient specimen to perform orcomplete analysis.contacted your facility on 03-15-2022 Ethanol, Urineon 03-08-2022 Ethanol, Urine Normal . [facility] Comment on above: Result Comment: Test not performed. Insufficient specimen to perform or complete analysis. contacted your facility on [phone] BY:[place] [address] [place] [place], [place] [phone] MEDICAL DIRECTORKIMBERLYN SINGER M.D. Performed By: #### E THANOL UR ####[facility] , Globulin Calc (S) [Mass/Vol] Ordered By: Tammy mSyth on 03-08-2022 Globulin (S) [Mass/Vol] 3.0 g/dL [facility] Glucose Glucometer (BldC) [M ass/Vol]Ordered By: Barry Colby on 03-08-2022 Glucose [Mass/Vol] 236 mg/dL [facility] Comment on above: Random Glucose Refer ence Range is dependent on time and content of last meal. Glucose of more than 200 mg/dL in a nonstressed, ambulatory subject supports the diagnosis of Diabetes Mellitus. Glucose Poct Glucometerson 1 05-09-2021 Glucose [Mass/Vol] 236 mg/dL Normal [facility] Comment on above: Result Comment: [place] om Glucose Reference Range is dependent on time and content of last meal. Glucose of more than 200 mg/dL in a nonstressed, ambulatory subject supports the diagnosis of Diabetes Mellitus.PERFORMED BY:[place] [address] [address] [place] [phone] MEDICAL DIRECTORKIMBERLYN SINGER M.D. Performed By: #### G CHUCK ####Point of Care testing, Hematocrit Auto (Bld) [Volum e fraction]Ordered By: Tammy Smyth on 03-08-2022 Hematocrit (Bld) [Volume fraction] 28.4 % 34.0-46.4 [facility] Hemoglobin [Mass/volume] in BloodOrdered By: Tammy Smyth on 03-08-2022 Hemoglobin (Bld) [Mass/Vol] 9.7 g/dL 11.8-15.4 [facility] Hypochromia LM Ql (Bld)Order ed By: Tammy Smyth on 03-08-2022 Hypochromia Ql (Bld) Moderate [facility] Ketones Auto test strip (U) [Mass/Vol]Ordered By: Tammy Smyth on 03-08-2022 Ketones (U) [Mass/Vol] 2+ Negative Fi [facility] Laboratory - Chemistry and C hemistry - challengeOrdered By: Barry Colby on 03-08-2022 CO2 [Moles/Vol] 22.4 mmol/L 23.0-27.0 [facility] HCO3 (Bld) [Moles/Vol] 21.5 mmol/L 23.0-29.0 [facility] Laboratory - Chemistry and C hemistry - challengeOrdered By: Tammy Smyth on 03-08-2022 Magnesium [Mass/Vol] 0.8 mg/dL 1.6-2.6 [facility] Comment on above: Results calledat 144 4 on 03/08/22 Laboratory - CoagulationOrde red By: Tammy Smyth on 03-08-2022 PT Coag (PPP) [Time] 16.9 s 9.0-12.9 [facility] Laboratory - Drug toxicology Ordered By: Tammy Smyth on 03-08-2022 Opiates Ql (U) Negative Negative [facility] Laboratory - UrinalysisOrder ed By: Tammy Smyth on 03-08-2022 Hyaline casts LM Ql (Urine sed) 0-8 [LPF] 0-8 [facility] Lactic Acidon 03-08-2022 Lactate [Moles/Vol] 1.6 mmol/L Normal 0.5-2.2 [facility] Comment on above: Order Comment: TOO O LD TO USE NOW PER CHEM Result Comment: PERF ORMED BY:[facility] [place], [place] [phone] MEDICAL DIRECTORKIMBERLYN SINGER M.D. Performed By: #### C UBLD, LACTIC ####[facility] [place] [address] [facility] Leukocytes [#/volume] correc negar for nucleated erythrocytes in Blood by Automated counOrdered By: Tammy Smyth on 03-08-2022 WBC corrected for nucl RBC Auto (Bld) [#/Vol] 12.8 10*3/uL 3.8-11.6 [facility] Lymphocytes Auto (Bld) [#/Vo l]Ordered By: Tammy Smyth on 03-08-2022 Lymphocytes (Bld) [#/Vol] 1.2 10*3/uL 1.00-4.8 [facility] Lymphocytes/100 WBC Auto (Bl d)Ordered By: Tammy Smyth on 03-08-2022 Lymphocytes/100 WBC (Bld) 9.5 % . [facility] MCH Auto (RBC) [Entitic mass ]Ordered By: Tammy Smyth on 03-08-2022 MCH (RBC) [Entitic mass] 31.6 pg 24.7-34.3 [facility] MCHC Auto (RBC) [Mass/Vol]Or dered By: Tammy Smyth on 03-08-2022 MCHC (RBC) [Mass/Vol] 34.1 g/dL 32.0-35.0 [facility] MCV Auto (RBC) [Entitic vol] Ordered By: Tammy Smyth on 03-08-2022 MCV (RBC) [Entitic vol] 92.7 fL 80-100 [facility] Magnesiumon 03-08-2022 Magnesium [Mass/Vol] 0.8 mg/dL Off scale low 1.6-2.6 [facility] Comment on above: Result Comment: Resu lts called at 1444 on 03/08/22PERFORMED BY:[facility] [place], [place] [phone] MEDICAL DIRECTORKIMBERLYN SINGER M.D. Performed By: #### M G ####[facility] [id number] [place] [address] [facility] Monocyte %Ordered By: Denzel Smyth on 03-08-2022 Monocyte % < 9 umol/L 11 [facility] Monocyte distribution width [Entitic volume] in Blood by AutomatedOrdered By: Tammy Smyth on 03-08-2022 Monocyte distribution width Auto (Bld) [Entitic vol] 22.30 % 0.00-20.00 [facility] Comment on above: For adults in ED, MD W > 20.0 may be associated with a higher risk of sepsis during the first 12 hrs of hospital admission Monocytes Auto (Bld) [#/Vol] Ordered By: Tammy Smyth on 03-08-2022 Monocytes (Bld) [#/Vol] 1.7 10*3/uL 0.0-0.8 [facility] Monocytes/100 WBC Auto (Bld) Ordered By: Tammy Smyth on 03-08-2022 Monocytes/100 WBC (Bld) 13.4 % . [facility] Neutrophils Auto (Bld) [#/Vo l]Ordered By: Tammy Smyth on 03-08-2022 Neutrophils (Bld) [#/Vol] 9.8 10*3/uL 1.8-7.7 [facility] Neutrophils/100 WBC Auto (Bl d)Ordered By: Tammy Smyth on 03-08-2022 Neutrophils/100 WBC (Bld) 77.0 % . [facility] Nitrite Test strip Ql (U)Ord ered By: Tammy Smyth on 03-08-2022 Nitrite Ql (U) Negative Negative [facility] No Panel InformationOrdered By: Barry Colby on 03-08-2022 Arterial Blood Base Excess -1.4 mmol/L -3.0-3.0 [facility] Arterial Blood Oxygen Content 3.3 mmol/L 6.6-9.7 [facility] Arterial Blood Oxygen Saturation 58.4 % 95.0-100.0 [facility] Arterial Blood Partial Pressure CO2 29.2 mm[Hg] 35.0-45.0 [facility] Arterial Blood Partial Pressure O2 30.3 mm[Hg] 80.0-100.0 [facility] Arterial Blood pH 7.48 7.35-7.45 [facility] Blood Gas Critical Value See comment [facility] Comment on above: Critical Value quintana d on: 03/08/2022 at 15:52 Blood Gas Sample Site Venous Fir [facility] FiO2 21 % [facility] No Panel InformationOrdered By: Tammy Smyth on 03-08-2022 Estimated GFR () > 60 mL/Min [facility] Comment on above: GFR estimated refere nce range: According to KDOQI guidelines, <60 ml/min/1.73m2 is sufficient to diagnose a patient with chronic kidney disease. Pharmacy Creatinine Clearance (Chem 82.80 [facility] Nucleated erythrocytes [Pres ence] in Blood by Automated countOrdered By: Tammy Smyth on 03-08-2022 Nucleated RBC Auto Ql (Bld) 0.0 /100{WBC} 0-0.5 [facility] Partial Thromboplastin Timeo n 03-08-2022 aPTT Coag (Bld) [Time] 31.5 s Normal 25.1-36.5 [facility] Comment on above: Result Comment: PERF ORMED BY:[facility] [place], [place] [phone] MEDICAL DIRECTORKIMBERLYN SINGER M.D. Performed By: #### H S TROP, PT, CK, CKMB, PTT, CMP, SCAN CBC ####[facility] [place] [address] [facility] Phencyclidine Screen Ql (U)O rdered By: Tammy Smyth on 03-08-2022 Phencyclidine Ql (U) Negative Negative [facility] Phosphoruson 03-08-2022 Phosphate [Mass/Vol] 1.7 mg/dL Low 2.5-4.6 [facility] Comment on above: Order Comment: Comme nt add on Result Comment: PERF ORMED BY:[facility] [place], [place] [phone] MEDICAL DIRECTORKIMBERLYN SINGER M.D. Performed By: #### P HOS ####[facility] [id number] [place] [address] [facility] Platelet adequacy [Presence] in Blood by Light microscopyOrdered By: Tammy Smyth on 03-08-2022 Platelets LM Ql (Bld) Normal Normal Fir [facility] Platelet mean volume Auto (B ld) [Entitic vol]Ordered By: Tammy Smyth on 03-08-2022 Platelet mean volume (Bld) [Entitic vol] 8.8 fL 6.3-10.7 [facility] Platelet morphology finding [Identifier] in BloodOrdered By: Tammy Smyth on 03-08-2022 Platelet morphology finding Nom (Bld) Normal Normal [facility] Platelet poor plasma interna tional normalized ratio (INR) by coagulation assay (relatOrdered By: Tammy Smyth on 03-08-2022 INR Coag (PPP) [Relative time] 1.5 {INR} [facility] Comment on above: INR Therapeutic Rang e A) Pre- and Peroperative OAT started two weeks before surgery. NOT HIP SURGERY: 1.5 - 2.5 HIP SURGERY: 2 - 3B) Primary and secondary prevention of venous THROMBOSIS: 2 - 3C) Active venous thrombosis, pulmonary embolismand prevention of recurrent venous thrombosis: 2 - 3D) Prevention of arterial thromboembolismincluding patients with mechanical heart valves: 3 - 4.5 Platelets Auto (Bld) [#/Vol] Ordered By: Tammy Smyth on 03-08-2022 Platelets (Bld) [#/Vol] 348 10*3/uL 150-450 [facility] Poikilocytosis [Presence] in Blood by Light microscopyOrdered By: Tammy Smyth on 03-08-2022 Poikilocytosis LM Ql (Bld) Slight [facility] Protein Auto test strip (U) [Mass/Vol]Ordered By: Tammy Smyth on 03-08-2022 Protein (U) [Mass/Vol] 30 mg/dL Negative [facility] Protein [Mass/volume] in Ser um or PlasmaOrdered By: Tammy Smyth on 03-08-2022 Protein [Mass/Vol] 5.6 g/dL 6.1-7.9 [facility] Prothrombin Time INRon 03-08 INR Coag (PPP) [Relative time] 1.5 {INR} Normal [facility] Comment on above: Result Comment: INR Therapeutic Range A) Pre- and Peroperative OAT started two weeks before surgery. NOT HIP SURGERY: 1.5 - 2.5 HIP SURGERY: 2 - 3 B) Primary and secondary prevention of venous THROMBOSIS: 2 - 3 C) Active venous thrombosis, pulmonary embolism and prevention of recurrent venous thrombosis: 2 - 3 D) Prevention of arterial thromboembolism including patients with mechanical heart valves: 3 - 4.5 Performed By: #### H S TROP, PT, CK, CKMB, PTT, CMP, SCAN CBC ####[facility] [id number] PT Coag (PPP) [Time] 16.9 s High 9.0-12.9 [facility] Comment on above: Performed By: #### H S TROP, PT, CK, CKMB, PTT, CMP, SCAN CBC ####[facility] [id number] [address] RBC Auto (Bld) [#/Vol]Ordere d By: Tammy Smyth on 03-08-2022 RBC (Bld) [#/Vol] 3.06 10*6/uL 3.60-5.00 [facility] RBC morphologyOrdered By: Dolores Smyth on 03-08-2022 RBC morphology finding Nom (Bld) N/A [facility] Red blood cell stomatocyte d etectionOrdered By: Tammy Smyth on 03-08-2022 Stomatocytes LM Ql (Bld) Slight [facility] Scan and CBCon 03-08-2022 Anisocytosis Ql (Bld) Slight Normal [facility] Comment on above: Performed By: #### H S TROP, PT, CK, CKMB, PTT, CMP, SCAN CBC ####[address] Basophils (Bld) [#/Vol] 0.0 10*3/uL Normal 0.0-0.2 [facility] Comment on above: Performed By: #### H S TROP, PT, CK, CKMB, PTT, CMP, SCAN CBC ####[address] Basophils/100 WBC (Bld) 0.1 % Normal . [facility] Comment on above: Performed By: #### H S TROP, PT, CK, CKMB, PTT, CMP, SCAN CBC ####[address] Eosinophils (Bld) [#/Vol] 0.0 10*3/uL Normal 0.0-0.45 [facility] Comment on above: Performed By: #### H S TROP, PT, CK, CKMB, PTT, CMP, SCAN CBC ####[address] Eosinophils/100 WBC (Bld) 0.0 % Normal . [facility] Comment on above: Performed By: #### H S TROP, PT, CK, CKMB, PTT, CMP, SCAN CBC ####[address] Erythrocyte distribution width (RBC) [Ratio] 14.2 % Normal 11.9-15.3 [facility] Comment on above: Performed By: #### H S TROP, PT, CK, CKMB, PTT, CMP, SCAN CBC ####[address] Hematocrit (Bld) [Volume fraction] 28.4 % Low 34.0-46.4 [facility] Comment on above: Performed By: #### H S TROP, PT, CK, CKMB, PTT, CMP, SCAN CBC ####[address] Hemoglobin (Bld) [Mass/Vol] 9.7 g/dL Low 11.8-15.4 [facility] Comment on above: Performed By: #### H S TROP, PT, CK, CKMB, PTT, CMP, SCAN CBC ####[address] Hypochromasia Moderate Normal [facility] Comment on above: Performed By: #### H S TROP, PT, CK, CKMB, PTT, CMP, SCAN CBC ####[address] Lymphocytes (Bld) [#/Vol] 1.2 10*3/uL Normal 1.00-4.8 [facility] Comment on above: Performed By: #### H S TROP, PT, CK, CKMB, PTT, CMP, SCAN CBC ####[address] Lymphocytes/100 WBC (Bld) 9.5 % Normal . [facility] Comment on above: Performed By: #### H S TROP, PT, CK, CKMB, PTT, CMP, SCAN CBC ####[address] MCH (RBC) [Entitic mass] 31.6 pg Normal 24.7-34.3 [facility] Comment on above: Performed By: #### H S TROP, PT, CK, CKMB, PTT, CMP, SCAN CBC ####[address] MCV (RBC) [Entitic vol] 92.7 fL Normal 80-100 [facility] Comment on above: Performed By: #### H S TROP, PT, CK, CKMB, PTT, CMP, SCAN CBC ####[address] Mean Corpuscular HGB Conc 34.1 g/dL Normal 32.0-35.0 [facility] Comment on above: Performed By: #### H S TROP, PT, CK, CKMB, PTT, CMP, SCAN CBC ####[address] Monocytes (Bld) [#/Vol] 1.7 10*3/uL High 0.0-0.8 [facility] Comment on above: Performed By: #### H S TROP, PT, CK, CKMB, PTT, CMP, SCAN CBC ####[address] Monocytes/100 WBC (Bld) 22.30 % High 0.00-20.00 [facility] Comment on above: Result Comment: For adults in ED, MDW > 20.0 may be associated with a higher risk of sepsis during the first 12 hrs of hospital admission Performed By: #### H S TROP, PT, CK, CKMB, PTT, CMP, SCAN CBC ####[address] Monocytes/100 WBC (Bld) 13.4 % Normal . [facility] Comment on above: Performed By: #### H S TROP, PT, CK, CKMB, PTT, CMP, SCAN CBC ####[address] Neutrophils (Bld) [#/Vol] 9.8 10*3/uL High 1.8-7.7 [facility] Comment on above: Performed By: #### H S TROP, PT, CK, CKMB, PTT, CMP, SCAN CBC ####[address] Neutrophils/100 WBC (Bld) 77.0 % Normal . [facility] Comment on above: Performed By: #### H S TROP, PT, CK, CKMB, PTT, CMP, SCAN CBC ####[address] NRBC% 0.0 /100{WBC} Normal 0-0.5 [facility] Comment on above: Performed By: #### H S TROP, PT, CK, CKMB, PTT, CMP, SCAN CBC ####[place] [id number] [facility] Platelet Estimate Normal Normal Normal [facility] Comment on above: Performed By: #### H S TROP, PT, CK, CKMB, PTT, CMP, SCAN CBC ####[place] [id number] [facility] Platelet mean volume (Bld) [Entitic vol] 8.8 fL Normal 6.3-10.7 [facility] Comment on above: Performed By: #### H S TROP, PT, CK, CKMB, PTT, CMP, SCAN CBC ####[address] Platelet Morphology Normal Normal Normal [facility] Comment on above: Result Comment: PERF ORMED BY:[address] [place], [place] [phone] MEDICAL DIRECTORKIMBERLYN SINGER M.D. Performed By: #### H S TROP, PT, CK, CKMB, PTT, CMP, SCAN CBC ####[place] [id number] [facility] Platelets (Bld) [#/Vol] 348 10*3/uL Normal 150-450 [facility] Comment on above: Performed By: #### H S TROP, PT, CK, CKMB, PTT, CMP, SCAN CBC ####[address] Poikilocytosis Slight Normal [facility] Comment on above: Performed By: #### H S TROP, PT, CK, CKMB, PTT, CMP, SCAN CBC ####[address] RBC (Bld) [#/Vol] 3.06 10*6/uL Low 3.60-5.00 [facility] Comment on above: Performed By: #### H S TROP, PT, CK, CKMB, PTT, CMP, SCAN CBC ####[place] [id number] [facility] Stomatocytes Slight Normal [facility] Comment on above: Performed By: #### H S TROP, PT, CK, CKMB, PTT, CMP, SCAN CBC ####[address] WBC (Bld) [#/Vol] 12.8 10*3/uL High 3.8-11.6 [facility] Comment on above: Performed By: #### H S TROP, PT, CK, CKMB, PTT, CMP, SCAN CBC ####[facility] [id number] [place] [id number] [facility] Serum or plasma alanine alrsen otransferase measurement without P-5'-P (enzymatic activiOrdered By: Tammy Smyth on 03-08-2022 ALT No additional P-5'-P [Catalytic activity/Vol] 13 U/L 10-60 [facility] Serum or plasma albumin/glob ulin mass ratioOrdered By: Tammy Smyth on 03-08-2022 Albumin/Globulin [Mass ratio] 0.9 {ratio} [facility] Serum or plasma alkaline ventura sphatase measurement (enzymatic activity/volume)Ordered By: Tammy Smyth on 03-08-2022 ALP [Catalytic activity/Vol] 132 U/L 32-92 [facility] Serum or plasma anion gap de terminationOrdered By: Tammy Smyth on 03-08-2022 Anion gap [Moles/Vol] 5.7 mmol/L 6.0-15.0 [facility] Serum or plasma aspartate am inotransferase measurement (enzymatic activity/volume)Ordered By: Tammy Smyth on 03-08-2022 AST [Catalytic activity/Vol] 17 U/L 10-42 [facility] Serum or plasma calcium john urement (mass/volume)Ordered By: Tammy Smyth on 03-08-2022 Calcium [Mass/Vol] 7.0 mg/dL 8.2-10.2 [facility] Serum or plasma chloride tressa surement (moles/volume)Ordered By: Tammy Smyth on 03-08-2022 Chloride [Moles/Vol] 103 mmol/L 95-114 [facility] Serum or plasma creatine kin ase MB (CKMB)/total creatine kinase (CK) ratio by calculaOrdered By: Tammy Smyth on 03-08-2022 CK.MB Calc [Catalytic fraction] 2.8 % 0.00-2.50 [facility] Serum or plasma creatine kin ase MB measurement (mass/volume)Ordered By: Tammy Smyth on 03-08-2022 CK.MB [Mass/Vol] 1.3 ng/mL 0.6-6.3 [facility] Serum or plasma glucose john urement (mass/volume)Ordered By: Tammy Smyth on 03-08-2022 Glucose [Mass/Vol] 202 mg/dL 70-100 [facility] Comment on above: ADA recommended refe rence rangeRandom Glucose Reference Range is dependent on time and content of last meal. Glucose of more than 200 mg/dL in a nonstressed, ambulatory subject supports the diagnosis of Diabetes Mellitus. Serum or plasma potassium me asurement (moles/volume)Ordered By: Tmamy Smyth on 03-08-2022 Potassium [Moles/Vol] 3.0 mmol/L 3.5-5.1 [facility] Serum or plasma sodium measu rement (moles/volume)Ordered By: Tammy Smyth on 03-08-2022 Sodium [Moles/Vol] 126 mmol/L 136-146 [facility] Serum or plasma total biliru bin measurement (mass/volume)Ordered By: Tammy Smyth on 03-08-2022 Bilirubin [Mass/Vol] 1.1 mg/dL 0.3-1.2 [facility] Serum or plasma total carbon dioxide measurement (moles/volume)Ordered By: Tammy Smyth on 03-08-2022 CO2 [Moles/Vol] 20.3 mmol/L 22.0-30.0 [facility] Serum or plasma urea nitroge n measurement (mass/volume)Ordered By: Tammy Smyth on 03-08-2022 Urea nitrogen [Mass/Vol] 8 mg/dL 9-23 [facility] Specific gravity Auto test s trip (U) [Rel density]Ordered By: Tammy Smyth on 03-08-2022 Specific gravity (U) [Rel density] 1.015 1.001-1.03 0 [facility] Squamous epithelial cells de tection in urine sediment by light microscopyOrdered By: Tammy Smyth on 03-08-2022 Epithelial cells.squamous LM Ql (Urine sed) 1-2 [HPF] 0-2 [facility] Troponin I High Sensitivityo n 03-08-2022 Troponin I High Sensitivity 33 pg/mL High 0-15 [facility] Comment on above: Result Comment: PERF ORMED BY:[facility] [place], [place] [phone] MEDICAL DIRECTORKIMBERLYN SINGER M.D. Performed By: #### H S TROP, PT, CK, CKMB, PTT, CMP, SCAN CBC ####[facility] [place] [address] [facility] Troponin I.cardiac [Mass/vol ume] in Serum or Plasma by High sensitivity methodOrdered By: Tammy Smyth on 03-08-2022 Troponin I.cardiac High sensitivity method [Mass/Vol] 33 pg/mL 0-15 [facility] Urine bacteria detection by automated methodOrdered By: Tammy Smyth on 03-08-2022 Bacteria Auto Ql (U) None seen None Seen [facility] Urine clarity by refractomet ry automatedOrdered By: Tammy Smyth on 03-08-2022 Clarity Refractometry automated (U) Clear Clear [facility] Urine cocaine detectionOrder ed By: Tammy Smyth on 03-08-2022 Cocaine Ql (U) Negative Negative [facility] Urine glucose measurement by automated test strip (mass/volume)Ordered By: Tammy Smyth on 03-08-2022 Glucose Auto test strip (U) [Mass/Vol] 250 mg/dL Normal [facility] Urine hemoglobin detection b y automated test stripOrdered By: Tammy Smyth on 03-08-2022 Hemoglobin Auto test strip Ql (U) Trace Negative [facility] Urine lactic acid measuremen tOrdered By: Tammy Smyth on 03-08-2022 Lactate (U) [Moles/Vol] 1.6 mmol/L 0.5-2.2 [facility] Urine leukocyte esterase det ection by automated test stripOrdered By: Tammy Smyth on 03-08-2022 Leukocyte esterase Auto test strip Ql (U) Negative Negative [facility] Urine sediment renal epithel ial cell count by microscopy (number/high power field)Ordered By: Tammy Smyth on 03-08-2022 Epithelial cells.renal LM.HPF (Urine sed) [#/Area] None seen [HPF] 0-1 [facility] Urobilinogen Auto test strip (U) [Mass/Vol]Ordered By: Tammy Smyth on 03-08-2022 Urobilinogen (U) [Mass/Vol] Normal mg/dL Normal [facility] WBC Auto (Bld) [#/Vol]Ordere d By: Tammy Smyth on 03-08-2022 WBC (Bld) [#/Vol] 12.8 10*3/uL 3.8-11.6 [facility] XR chest 1V portableon 03-08 XR chest 1V portable Normal [facility] pH Auto test strip (U)Ordere d By: Tammy Smyth on 03-08-2022 pH (U) 8.0 [pH] 5.0-9.0 [facility] Basic Metabolic Panelon 11-2 Anion gap [Moles/Vol] Not performed Normal 6.0-15.0 [facility] Comment on above: Performed By: #### B MP ####[facility] [place] [address] [facility] Calcium [Mass/Vol] 8.2 mg/dL Normal 8.2-10.2 [facility] Comment on above: Performed By: #### B MP ####[facility] [place] [address] [place] Chloride [Moles/Vol] 97 mmol/L Normal 95-114 [facility] Comment on above: Performed By: #### B MP ####[facility] [place] [address] [facility] CO2 [Moles/Vol] 24.4 mmol/L Normal 22.0-30.0 [facility] Comment on above: Performed By: #### B MP ####[facility] [place] [address] [facility] Creatinine [Mass/Vol] 0.76 mg/dL Normal 0.44-1.03 [facility] Comment on above: Performed By: #### B MP ####[address] [address] [facility] Creatinine Clr Calc Pharmacy 83.32 [facility] Comment on above: Result Comment: PERF ORMED BY:[place] [address] [address] [place], [place] [phone] MEDICAL ANDRE SINGER M.D. Performed By: #### B MP ####[address] [address] [facility] Estimated GFR ( Brenda > 60 [facility] Comment on above: Result Comment: GFR estimated reference range: According to KDOQI guidelines, <60 ml/min/1.73m2 is sufficient to diagnose a patient with chronic kidney disease. Performed By: #### B MP ####[address] [address] [facility] Estimated GFR (Non- Am > 60 [facility] Comment on above: Performed By: #### B MP ####[address] [address] [facility] Glucose [Mass/Vol] 134 mg/dL High 70-100 [facility] Comment on above: Result Comment: [place] om Glucose Reference Range is dependent on time and content of last meal. Glucose of more than 200 mg/dL in a nonstressed, ambulatory subject supports the diagnosis of Diabetes Mellitus. ADA recommended reference range Performed By: #### B MP ####[address] [address] [facility] Potassium Normal 3.5-5.1 [facility] Comment on above: Result Comment: Spec imen hemolyzed, redraw requested Performed By: #### B MP ####[address] [address] [facility] Sodium [Moles/Vol] 131 mmol/L Low 136-146 [facility] Comment on above: Performed By: #### B MP ####[address] [address] [facility] Urea nitrogen [Mass/Vol] 7 mg/dL Low 9-23 [facility] Comment on above: Performed By: #### B MP ####[place] [id number] [facility] Basophils Auto (Bld) [#/Vol] Ordered By: Mike Brannon on 03-06-2022 Basophils (Bld) [#/Vol] 0.1 10*3/uL 0.0-0.2 [facility] Basophils/100 WBC Auto (Bld) Ordered By: Mike Brannon on 03-06-2022 Basophils/100 WBC (Bld) 1.2 % . [facility] Complete Blood Count Auto Di ffon 03-06-2022 Basophils (Bld) [#/Vol] 0.1 10*3/uL Normal 0.0-0.2 [facility] Comment on above: Result Comment: PERF ORMED BY:[address] [place], [place] [phone] MEDICAL DIRECTORKIMBERLYN SINGER M.D. Performed By: #### C BC ####[address] Basophils/100 WBC (Bld) 1.2 % Normal . [facility] Comment on above: Performed By: #### C BC ####[address] Eosinophils (Bld) [#/Vol] 0.0 10*3/uL Normal 0.0-0.45 [facility] Comment on above: Performed By: #### C BC ####[place] [id number] [facility] Eosinophils/100 WBC (Bld) 0.7 % Normal . [facility] Comment on above: Performed By: #### C BC ####[address] Erythrocyte distribution width (RBC) [Ratio] 14.7 % Normal 11.9-15.3 [facility] Comment on above: Performed By: #### C BC ####[address] Hematocrit (Bld) [Volume fraction] 32.1 % Low 34.0-46.4 [facility] Comment on above: Performed By: #### C BC ####[address] Hemoglobin (Bld) [Mass/Vol] 10.8 g/dL Low 11.8-15.4 [facility] Comment on above: Performed By: #### C BC ####[address] Lymphocytes (Bld) [#/Vol] 1.5 10*3/uL Normal 1.00-4.8 [facility] Comment on above: Performed By: #### C BC ####[address] Lymphocytes/100 WBC (Bld) 23.3 % Normal . [facility] Comment on above: Performed By: #### C BC ####[address] MCH (RBC) [Entitic mass] 32.5 pg Normal 24.7-34.3 [facility] Comment on above: Performed By: #### C BC ####[address] MCV (RBC) [Entitic vol] 96.2 fL Normal 80-100 [facility] Comment on above: Performed By: #### C BC ####[address] Mean Corpuscular HGB Conc 33.7 g/dL Normal 32.0-35.0 [facility] Comment on above: Performed By: #### C BC ####[address] Monocytes (Bld) [#/Vol] 0.8 10*3/uL Normal 0.0-0.8 [facility] Comment on above: Performed By: #### C BC ####[address] Monocytes/100 WBC (Bld) 11.7 % Normal . [facility] Comment on above: Performed By: #### C BC ####[address] [address] [facility] Neutrophils (Bld) [#/Vol] 4.1 10*3/uL Normal 1.8-7.7 [facility] Comment on above: Performed By: #### C BC ####[address] [address] [facility] Neutrophils/100 WBC (Bld) 63.1 % Normal . [facility] Comment on above: Performed By: #### C BC ####[address] [address] [facility] NRBC% 0.3 /100{WBC} Normal 0-0.5 [facility] Comment on above: Performed By: #### C BC ####[place] [id number] [facility] Platelet mean volume (Bld) [Entitic vol] 8.3 fL Normal 6.3-10.7 [facility] Comment on above: Performed By: #### C BC ####[address] [address] [facility] Platelets (Bld) [#/Vol] 306 10*3/uL Normal 150-450 [facility] Comment on above: Performed By: #### C BC ####[address] [address] [facility] RBC (Bld) [#/Vol] 3.34 10*6/uL Low 3.60-5.00 [facility] Comment on above: Performed By: #### C BC ####[address] [address] [facility] WBC (Bld) [#/Vol] 6.5 10*3/uL Normal 3.8-11.6 [facility] Comment on above: Performed By: #### C BC ####[address] [address] [facility] Creatinine and Glomerular fi ltration rate.predicted panel (S/P/Bld)Ordered By: NICHOLAS BLANC on 03-06-2022 Creatinine [Mass/Vol] 0.76 mg/dL 0.44-1.03 [facility] ECG 12 lead ECGon 03-06-2022 ECG 12 lead ECG Normal [facility] Eosinophils Auto (Bld) [#/Vo l]Ordered By: Mike Brannon on 03-06-2022 Eosinophils (Bld) [#/Vol] 0.0 10*3/uL 0.0-0.45 [facility] Eosinophils/100 WBC Auto (Bl d)Ordered By: Mike Brannon on 03-06-2022 Eosinophils/100 WBC (Bld) 0.7 % . [facility] Erythrocyte distribution wid th Auto (RBC) [Ratio]Ordered By: Mike Brannon on 03-06-2022 Erythrocyte distribution width (RBC) [Ratio] 14.7 % 11.9-15.3 [facility] Estimated glomerular filtrat ion rate (GFR) non- AmericanOrdered By: NICHOLAS LBANC on 03-06-2022 GFR/1.73 sq M.predicted among non-blacks MDRD (S/P/Bld) [Vol rate/Area] > 60 mL/Min [facility] Glucose Glucometer (BldC) [M ass/Vol]Ordered By: Asa Napoles on 03-06-2022 Glucose [Mass/Vol] 119 mg/dL [facility] Comment on above: Random Glucose Refer ence Range is dependent on time and content of last meal. Glucose of more than 200 mg/dL in a nonstressed, ambulatory subject supports the diagnosis of Diabetes Mellitus. Glucose Poct Glucometerson 1 05-06-2021 Glucose [Mass/Vol] 119 mg/dL Normal [facility] Comment on above: Result Comment: [place] Glucose Reference Range is dependent on time and content of last meal. Glucose of more than 200 mg/dL in a nonstressed, ambulatory subject supports the diagnosis of Diabetes Mellitus.PERFORMED BY:[place] [id number] [place], [place] [phone] MEDICAL DIRECTORKIMBERLYN SINGER M.D. Performed By: #### G LULS ####Point of Care testing, Commemt1 Glu2: Cleaned Meter Normal [facility] Comment on above: Result Comment: PERF ORMED BY:[facility] [place], [place] [phone] MEDICAL DIRECTORKIMBERLYN SINGER M.D. Performed By: #### G CHUCK ####Point of Care testing, Glucose [Mass/Vol] 129 mg/dL Normal [facility] Comment on above: Result Comment: [facility] Glucose Reference Range is dependent on time and content of last meal. Glucose of more than 200 mg/dL in a nonstressed, ambulatory subject supports the diagnosis of Diabetes Mellitus. Performed By: #### G LULS ####Point of Care testing, Hematocrit Auto (Bld) [Volum e fraction]Ordered By: Mike Brannon on 03-06-2022 Hematocrit (Bld) [Volume fraction] 32.1 % 34.0-46.4 [facility] Hemoglobin [Mass/volume] in BloodOrdered By: Mike Brannon on 03-06-2022 Hemoglobin (Bld) [Mass/Vol] 10.8 g/dL 11.8-15.4 [facility] Leukocytes [#/volume] correc negar for nucleated erythrocytes in Blood by Automated counOrdered By: Mike Brannon on 03-06-2022 WBC corrected for nucl RBC Auto (Bld) [#/Vol] 6.5 10*3/uL 3.8-11.6 [facility] Lymphocytes Auto (Bld) [#/Vo l]Ordered By: Mike Brannon on 03-06-2022 Lymphocytes (Bld) [#/Vol] 1.5 10*3/uL 1.00-4.8 [facility] Lymphocytes/100 WBC Auto (Bl d)Ordered By: Mike Brannon on 03-06-2022 Lymphocytes/100 WBC (Bld) 23.3 % . [facility] MCH Auto (RBC) [Entitic mass ]Ordered By: Mike Brannon on 03-06-2022 MCH (RBC) [Entitic mass] 32.5 pg 24.7-34.3 [facility] MCHC Auto (RBC) [Mass/Vol]Or dered By: Mike Brannon on 03-06-2022 MCHC (RBC) [Mass/Vol] 33.7 g/dL 32.0-35.0 [facility] MCV Auto (RBC) [Entitic vol] Ordered By: Mike Brannon on 03-06-2022 MCV (RBC) [Entitic vol] 96.2 fL 80-100 F [facility] Monocytes Auto (Bld) [#/Vol] Ordered By: Mike Brannon on 03-06-2022 Monocytes (Bld) [#/Vol] 0.8 10*3/uL 0.0-0.8 [facility] Monocytes/100 WBC Auto (Bld) Ordered By: Mike Brannon on 03-06-2022 Monocytes/100 WBC (Bld) 11.7 % . F [facility] Neutrophils Auto (Bld) [#/Vo l]Ordered By: Mike Brannon on 03-06-2022 Neutrophils (Bld) [#/Vol] 4.1 10*3/uL 1.8-7.7 [facility] Neutrophils/100 WBC Auto (Bl d)Ordered By: Mike Brannon on 03-06-2022 Neutrophils/100 WBC (Bld) 63.1 % . [facility] No Panel InformationOrdered By: Asa Napoles on 03-06-2022 Bedside Glucose Comment Glu2: cleaned meter [facility] No Panel InformationOrdered By: NICHLOAS BLANC on 03-06-2022 Estimated GFR () > 60 mL/Min [facility] Comment on above: GFR estimated refere nce range: According to KDOQI guidelines, <60 ml/min/1.73m2 is sufficient to diagnose a patient with chronic kidney disease. Pharmacy Creatinine Clearance (Chem 83.32 [facility] Nucleated erythrocytes [Pres ence] in Blood by Automated countOrdered By: Mike Brannon on 03-06-2022 Nucleated RBC Auto Ql (Bld) 0.3 /100{WBC} 0-0.5 [facility] Platelet mean volume Auto (B ld) [Entitic vol]Ordered By: Mike Brannon on 03-06-2022 Platelet mean volume (Bld) [Entitic vol] 8.3 fL 6.3-10.7 [facility] Platelets Auto (Bld) [#/Vol] Ordered By: Mike Brannon on 03-06-2022 Platelets (Bld) [#/Vol] 306 10*3/uL 150-450 [facility] RBC Auto (Bld) [#/Vol]Ordere d By: Mike Brannon on 03-06-2022 RBC (Bld) [#/Vol] 3.34 10*6/uL 3.60-5.00 [facility] Redraw Potassiumon 2 Potassium [Moles/Vol] 4.0 mmol/L Normal 3.5-5.1 [facility] Comment on above: Result Comment: PERF ORMED BY:[facility] [place], [place] [phone] MEDICAL DIRECTORKIMBERLYN SINGER M.D. Performed By: #### R EDMIKKI K ####[facility] [place] [address] [facility] Serum or plasma anion gap de terminationOrdered By: NICHOLAS BLANC on 03-06-2022 Anion gap [Moles/Vol] TNP [facility] Comment on above: Test not performed Serum or plasma calcium john urement (mass/volume)Ordered By: NICHOLAS BLANC on 03-06-2022 Calcium [Mass/Vol] 8.2 mg/dL 8.2-10.2 [facility] Serum or plasma chloride tressa surement (moles/volume)Ordered By: NICHOLAS BLANC on 03-06-2022 Chloride [Moles/Vol] 97 mmol/L 95-114 [facility] Serum or plasma glucose john urement (mass/volume)Ordered By: NICHOLAS BLANC on 03-06-2022 Glucose [Mass/Vol] 134 mg/dL 70-100 [facility] Comment on above: ADA recommended refe rence rangeRandom Glucose Reference Range is dependent on time and content of last meal. Glucose of more than 200 mg/dL in a nonstressed, ambulatory subject supports the diagnosis of Diabetes Mellitus. Serum or plasma potassium me asurement (moles/volume)Ordered By: Ash Bernstein on 03-06-2022 Potassium [Moles/Vol] 4.0 mmol/L 3.5-5.1 [facility] Serum or plasma sodium measu rement (moles/volume)Ordered By: NICHOLAS BLANC on 03-06-2022 Sodium [Moles/Vol] 131 mmol/L 136-146 [facility] Serum or plasma total carbon dioxide measurement (moles/volume)Ordered By: NICHOLAS BLANC on 03-06-2022 CO2 [Moles/Vol] 24.4 mmol/L 22.0-30.0 [facility] Serum or plasma urea nitroge n measurement (mass/volume)Ordered By: NICHOLAS BLANC on 03-06-2022 Urea nitrogen [Mass/Vol] 7 mg/dL 9-23 [facility] WBC Auto (Bld) [#/Vol]Ordere d By: Mike Brannon on 03-06-2022 WBC (Bld) [#/Vol] 6.5 10*3/uL 3.8-11.6 [facility] XR shoulder LT min 2V*on XR shoulder LT min 2V* Normal [facility] CBC AUTO DIFFon 03-03-2022 BASO # 0.1 103/ul Normal 0.0-0.1 [facility] Comment on above: Performed By: #### B MP #### [facility] [address] [place] [address] Dr. Jordan Blackwell Basophils/100 WBC (Bld) 0.8 % Normal 0.2-2.0 [facility] Comment on above: Performed By: #### B MP #### [facility] [address] [address] [address] Jordan Blackwell EO # 0.1 103/ul Normal 0.0-0.7 [facility] Comment on above: Performed By: #### B MP #### [facility] [address] [address] [address] Jordan Blackwell Eosinophils/100 WBC (Bld) 0.7 % Critically low 0.9-7.0 [facility] Comment on above: Performed By: #### B MP #### [facility] [address] [address] [address] Jordan Blackwell Erythrocyte distribution width (RBC) [Ratio] 14.3 % Normal 11.0-15.0 [facility] Comment on above: Performed By: #### B MP #### [facility] [address] [place] [address] Dr. Jordan Blackwell Hematocrit (Bld) [Volume fraction] 32.6 % Critically low 36.0-48.0 [facility] Comment on above: Performed By: #### B MP #### [facility] [address] [place] [address] Dr. Jordan Blackwell Hemoglobin (Bld) [Mass/Vol] 10.7 g/dL Critically low 12.0-16.0 [facility] Comment on above: Performed By: #### B MP #### [facility] [address] [place] [address] Dr. Jordan Blackwell IG # 0.10 10e3/ul Critically high 0.00-0.03 [facility] Comment on above: Performed By: #### B MP #### [facility] [address] [place] [address] Dr. Jordan Blackwell IG % 1.3 % Critically high 0.0-0.5 [facility] Comment on above: Performed By: #### B MP #### [facility] [address] [place] [address] Dr. Jordan Blackwell LYMPH # 1.2 103/ul Normal 1.2-3.8 [facility] Comment on above: Performed By: #### B MP #### [facility] [address] [place] [address] Dr. Jordan Blackwell Lymphocytes/100 WBC (Bld) 16.4 % Critically low 20.5-60.0 [facility] Comment on above: Performed By: #### B MP #### [facility] [address] [place] [address] Dr. Jordan Blackwell MANUAL DIFF REQ NO Normal [facility] Comment on above: Performed By: #### B MP #### [facility] [address] [place] [address] Dr. Jordan Blackwell MCH (RBC) [Entitic mass] 31.8 pg Normal 26.7-34.0 [facility] Comment on above: Performed By: #### B MP #### [facility] [address] [place] [address] Dr. Jordan Blackwell MCHC (RBC) [Mass/Vol] 32.8 g/dL Normal 29.9-35.2 [facility] Comment on above: Performed By: #### B MP #### [facility] [address] [place] [address] Dr. Jrodan Blackwell MCV (RBC) [Entitic vol] 96.7 fL Normal 81.0-99.0 [facility] Comment on above: Performed By: #### B MP #### [facility] [address] [place] [address] Dr. Jordan Blackwell MONO # 0.8 103/ul Normal 0.3-0.8 [facility] Comment on above: Performed By: #### B MP #### [facility] [address] [place] [address] Dr. Jordan Blackwell Monocytes/100 WBC (Bld) 10.6 % Normal 1.7-12.0 [facility] Comment on above: Performed By: #### B MP #### [facility] [address] [place] [address] Dr. Jordan Blackwell NEUT # 5.3 103/ul Normal 1.4-6.5 [facility] Comment on above: Performed By: #### B MP #### [facility] [address] [place] [address] Dr. Jordan Blackwell Neutrophils/100 WBC (Bld) 70.2 % Normal 43.0-75.0 [facility] Comment on above: Performed By: #### B MP #### [facility] [address] [place] [address] Dr. Jordan Blackwell Platelet mean volume (Bld) [Entitic vol] 9.5 fL Normal 9.5-13.5 [facility] Comment on above: Performed By: #### B MP #### [facility] [address] [place] [address] Dr. Jordan Blackwell PLT 342 103/ul Normal 150-450 [facility] Comment on above: Performed By: #### B MP #### [facility] [address] [place] [address] Dr. Jordan Blackwell RBC 3.37 106/ul Critically low 4.20-5.40 [facility] Comment on above: Performed By: #### B MP #### [facility] [address] [place] [address] Dr. Jordan Blackwell WBC 7.6 103/ul Normal 4.0-11.0 [facility] Comment on above: Performed By: #### B MP #### [facility] [address] [place] [address] Dr. Jordan Blackwell PROF CHEM 8 (BAS METB)on Anion gap [Moles/Vol] 11.1 mmol/L Normal [facility] Comment on above: Performed By: #### C BC #### [facility] [address] [place] [address] Dr. Jordan Blackwell Calcium [Mass/Vol] 8.7 mg/dL Normal 8.5-10.1 [facility] Comment on above: Performed By: #### C BC #### [facility] [address] [place] [address] Dr. Jordan Blackwell Chloride [Moles/Vol] 98 mmol/L Normal 98-107 [facility] Comment on above: Performed By: #### C BC #### [facility] [address] [place] [address] Dr. oJrdan Blackwell CO2 [Moles/Vol] 28.1 mmol/L Normal 21.0-32.0 [facility] Comment on above: Performed By: #### C BC #### [facility] [address] [place] [address] Dr. Jordan Blackwell Creatinine [Mass/Vol] 0.73 mg/dL Normal 0.55-1.02 [facility] Comment on above: Performed By: #### C BC #### [facility] [address] [place] [address] Dr. Jordan Blackwell EGFR-AF FRENCH >60 Normal >=60 [facility] Comment on above: Performed By: #### C BC #### [facility] [address] [address] [address] Jordan Blackwell EGFR-NON AF FRENCH >60 Normal >=60 [facility] Comment on above: Performed By: #### C BC #### [facility] [address] [address] [address] Jordan Blackwell Glucose [Mass/Vol] 194 mg/dL Critically high 74-106 [facility] Comment on above: Performed By: #### C BC #### [facility] [address] [address] [address] Jordan Blackwell Potassium [Moles/Vol] 5.2 mmol/L Critically high 3.5-5.1 [facility] Comment on above: Performed By: #### C BC #### [facility] [address] [address] [address] Jordan Blackwell Sodium [Moles/Vol] 132 mmol/L Critically low 136-145 [facility] Comment on above: Performed By: #### C BC #### [facility] [address] [address] [address] Jordan Blackwell Urea nitrogen [Mass/Vol] 6.0 mg/dL Critically low 7.0-18.0 [facility] Comment on above: Performed By: #### C BC #### [facility] [address] [address] [address] Jordan Blackwell Urea nitrogen/Creatinine [Mass ratio] 8.2 mg/mg Normal [facility] Comment on above: Performed By: #### C BC #### [facility] [address] [address] [address] Jordan Blackwell COVID-19 Antigenon COVID-19 Antigen Normal [facility] Comment on above: Performed By: #### S PRASANNA COVID-19 YASMINE ####[facility] [id number] [id number] [facility] COVID-19 SOFIAOrdered By: isiah Napoles on 03-02-2022 SARS-CoV+SARS-CoV-2 (COVID-19) Ag IA.rapid Ql (Resp) Negative Negative [facility] Comment on above: This is a duplicate Yasmine SARS Antigen (FREDERIC) result to be used for statistical tracking purpose only. No Panel InformationOrdered By: Asa Napoles on 03-02-2022 SARS Antigen (LFIA) [facility] SARS Antigen (LFIA) [facility] Yasmine Ag Negativeon 03-02-20 22 Yasmine Ag Negative Negative Normal Negative [facility] Comment on above: Result Comment: This is a duplicate Yasmine SARS Antigen (FREDERIC) result to be used for statistical tracking purpose only.PERFORMED BY:[facility] [place], [place] [id number] MEDICAL DIRECTORKIMBERLYN SINGER M.D. Performed By: #### S OFIANEG, COVID-19 YASMINE ####[facility] [place] [address] [facility] CBC W MANUAL DIFFon 02-27-20 22 ATYPICAL LYMPH # Normal [facility] Comment on above: Performed By: #### U RCX #### [facility] [address] [place] [address] Dr. Jordan Blackwell ATYPICAL LYMPH % Normal [facility] Comment on above: Performed By: #### U RCX #### [facility] [address] [place] [address] Dr. Jordan Blackwell BAND # Normal 0.0-0.3 [facility] Comment on above: Performed By: #### U RCX #### [facility] [address] [place] [address] Dr. Jordan Blackwell BAND % Normal 0-5 [facility] Comment on above: Performed By: #### U RCX #### [facility] [address] [place] [address] Dr. Jordan BAILEY # 0.00 103/ul Normal 0.00-0.10 [facility] Comment on above: Performed By: #### U RCX #### [facility] [address] [place] [address] Dr. Yilan Blackwell BASOM % 0.0 % Critically low 0.2-2.0 [facility] Comment on above: Performed By: #### U RCX #### [facility] [address] [place] [address] Dr. Jordan Blackwell BLAST # Normal [facility] Comment on above: Performed By: #### U RCX #### [facility] [address] [place] [address] Dr. Jordan Blackwell BLAST % Normal [facility] Comment on above: Performed By: #### U RCX #### [facility] [address] [place] [address] Dr. Jordan Blackwell CORRECTED WBC Normal 4.0-11.0 [facility] Comment on above: Performed By: #### U RCX #### [facility] [address] [place] [address] Dr. Jordan Blackwell EOS # 0.11 103/ul Normal 0.00-0.70 [facility] Comment on above: Performed By: #### U RCX #### [facility] [address] [place] [address] Dr. Jordan Blackwell EOS% 1.0 % Normal 0.9-7.0 [facility] Comment on above: Performed By: #### U RCX #### [facility] [address] [place] [address] Dr. Jordan Blackwell HCT 31.5 % Critically low 36.0-48.0 [facility] Comment on above: Performed By: #### U RCX #### [facility] [address] [place] [address] Dr. Jordan Blackwell HGB 10.6 g/dl Critically low 12.0-16.0 [facility] Comment on above: Performed By: #### U RCX #### [facility] [address] [place] [address] Dr. Jordan Blackwell LYMPHM # 2.62 103/ul Normal 1.20-3.80 [facility] Comment on above: Performed By: #### U RCX #### [facility] [address] [place] [address] Dr. Jordan Blackwell LYMPHM% 23.0 % Normal 20.5-60.0 [facility] Comment on above: Performed By: #### U RCX #### [facility] [address] [place] [address] Dr. Jordan Blackwell MCH 31.7 pg Normal 26.7-34.0 [facility] Comment on above: Performed By: #### U RCX #### [facility] [address] [place] [address] Dr. Jordan Blackwell MCHC 33.7 g/dl Normal 29.9-35.2 [facility] Comment on above: Performed By: #### U RCX #### [facility] [address] [place] [address] Dr. Jordan Blackwell MCV 94.3 fL Normal 81.0-99.0 [facility] Comment on above: Performed By: #### U RCX #### [facility] [address] [place] [address] Dr. Jordan Blackwell METAMYELOCYTE # Normal [facility] Comment on above: Performed By: #### U RCX #### [facility] [address] [place] [address] Dr. Jordan Blackwell METAMYELOCYTE % Normal [facility] Comment on above: Performed By: #### U RCX #### [facility] [address] [place] [address] Dr. Jordan Blackwell MONOM# 0.68 103/ul Normal 0.30-0.80 [facility] Comment on above: Performed By: #### U RCX #### [facility] [address] [place] [address] Dr. Jordan Blackwell MONOM% 6.0 % Normal 1.7-12.0 [facility] Comment on above: Performed By: #### U RCX #### [facility] [address] [place] [address] Dr. Jordan Blackwell MPV 9.1 fL Critically low 9.5-13.5 [facility] Comment on above: Performed By: #### U RCX #### [facility] [address] [address] [address] Jordan Blackwell MYELOCYTE # Normal [facility] Comment on above: Performed By: #### U RCX #### [facility] [address] [address] [address] Jordan Blackwell MYELOCYTE % Normal [facility] Comment on above: Performed By: #### U RCX #### [facility] [address] [place] [address] Dr. Jordan Blackwell NRBC Normal [facility] Comment on above: Performed By: #### U RCX #### [facility] [address] [place] [address] Dr. Jordan Blackwell PLT 334 103/ul Normal 150-450 [facility] Comment on above: Performed By: #### U RCX #### [facility] [address] [place] [address] Dr. Jordan Blackwell RBC 3.34 106/ul Critically low 4.20-5.40 [facility] Comment on above: Performed By: #### U RCX #### [facility] [address] [place] [address] Dr. Jordan Blackwell RDW 14.6 % Normal 11.0-15.0 [facility] Comment on above: Performed By: #### U RCX #### [facility] [address] [place] [address] Dr. Jordan Blackwell SEG # 7.98 103/ul Critically high 1.40-6.50 [facility] Comment on above: Performed By: #### U RCX #### [facility] [address] [place] [address] Dr. Jordan Blackwell SEG % 70.0 % Normal 43.0-75.0 [facility] Comment on above: Performed By: #### U RCX #### [facility] [address] [place] [address] Dr. Jordan Blackwell WBC 11.4 103/ul Critically high 4.0-11.0 [facility] Comment on above: Performed By: #### U RCX #### [facility] [address] [place] [address] Dr. Jordan Blackwell PROF 14(COMP METB)on 02-26- 022 Albumin [Mass/Vol] 2.6 g/dL Critically low 3.4-5.0 [facility] Comment on above: Performed By: #### O SMO #### [facility] [address] [place] [address] Dr. Jordan Blackwell Albumin/Globulin [Mass ratio] 0.7 {ratio} Normal [facility] Comment on above: Performed By: #### O SMO #### [facility] [address] [place] [address] Dr. Jordan Blackwell ALP [Catalytic activity/Vol] 113 U/L Normal 46-116 [facility] Comment on above: Performed By: #### O SMO #### [facility] [address] [place] [address] Dr. Jordan Blackwell ALT [Catalytic activity/Vol] 18 U/L Normal 14-59 [facility] Comment on above: Performed By: #### O SMO #### [facility] [address] [place] [address] Dr. Jordan Blackwell Anion gap [Moles/Vol] 13.0 mmol/L Normal [facility] Comment on above: Performed By: #### O SMO #### [facility] [address] [place] [address] Dr. Jordan Blackwell AST [Catalytic activity/Vol] 16 U/L Normal 15-37 [facility] Comment on above: Performed By: #### O SMO #### [facility] [address] [place] [address] Dr. Jordan Blackwell Bilirubin [Mass/Vol] 0.6 mg/dL Normal 0.2-1.0 [facility] Comment on above: Performed By: #### O SMO #### [facility] [address] [place] [address] Dr. Jordan Blackwell Calcium [Mass/Vol] 8.0 mg/dL Critically low 8.5-10.1 [facility] Comment on above: Performed By: #### O SMO #### [facility] [address] [place] [address] Dr. Jordan Blackwell Chloride [Moles/Vol] 101 mmol/L Normal 98-107 [facility] Comment on above: Performed By: #### O SMO #### [facility] [address] [address] [address] Jordan Blackwell CO2 [Moles/Vol] 24.2 mmol/L Normal 21.0-32.0 [facility] Comment on above: Performed By: #### O SMO #### [facility] [address] [place] [address] Dr. Jordan Blackwell Creatinine [Mass/Vol] 0.84 mg/dL Normal 0.55-1.02 [facility] Comment on above: Performed By: #### O SMO #### [facility] [address] [place] [address] Dr. Jordan Blackwell EGFR-AF FRENCH >60 Normal >=60 [facility] Comment on above: Performed By: #### O SMO #### [facility] [address] [place] [address] Dr. Jordan Blackwell EGFR-NON AF FRENCH >60 Normal >=60 [facility] Comment on above: Performed By: #### O SMO #### [facility] [address] [place] [address] Dr. Jordan Blackwell Globulin (S) [Mass/Vol] 3.5 g/dL Normal [facility] Comment on above: Performed By: #### O SMO #### [facility] [address] [place] [address] Dr. Jordan Blackwell Glucose [Mass/Vol] 131 mg/dL Critically high 74-106 [facility] Comment on above: Performed By: #### O SMO #### [facility] [address] [place] [address] Dr. Jordan Blackwell Potassium [Moles/Vol] 4.2 mmol/L Normal 3.5-5.1 [facility] Comment on above: Performed By: #### O SMO #### [facility] [address] [place] [address] Dr. Jordan Blackwell Protein [Mass/Vol] 6.1 g/dL Critically low 6.4-8.2 [facility] Comment on above: Performed By: #### O SMO #### [facility] [address] [place] [address] Dr. Jordan Blackwell Sodium [Moles/Vol] 134 mmol/L Critically low 136-145 [facility] Comment on above: Performed By: #### O SMO #### [facility] [address] [place] [address] Dr. Jordan Blackwell Urea nitrogen [Mass/Vol] 7.0 mg/dL Normal 7.0-18.0 [facility] Comment on above: Performed By: #### O SMO #### [facility] [address] [place] [address] Dr. Jordan Blackwell Urea nitrogen/Creatinine [Mass ratio] 8.3 mg/mg Normal [facility] Comment on above: Performed By: #### O SMO #### [facility] [address] [place] [address] Dr. Jordan Blackwell CBC AUTO DIFFon 02-25-2022 BASO # 0.0 103/ul Normal 0.0-0.1 [facility] Comment on above: Performed By: #### U AMIC #### [facility] [address] [place] [address] Dr. Jordan Blackwell Basophils/100 WBC (Bld) 0.2 % Normal 0.2-2.0 [facility] Comment on above: Performed By: #### U AMIC #### [facility] [address] [place] [address] Dr. Jordan Blackwell EO # 0.1 103/ul Normal 0.0-0.7 [facility] Comment on above: Performed By: #### U AMIC #### [facility] [address] [place] [address] Dr. Jordan Blackwell Eosinophils/100 WBC (Bld) 1.2 % Normal 0.9-7.0 [facility] Comment on above: Performed By: #### U AMIC #### [facility] [address] [place] [address] Dr. Jordan Blackwell Erythrocyte distribution width (RBC) [Ratio] 14.7 % Normal 11.0-15.0 [facility] Comment on above: Performed By: #### U AMIC #### [facility] [address] [place] [address] Dr. Jordan Blackwell Hematocrit (Bld) [Volume fraction] 29.2 % Critically low 36.0-48.0 [facility] Comment on above: Performed By: #### U AMIC #### [facility] [address] [place] [address] Dr. Jordan Blackwell Hemoglobin (Bld) [Mass/Vol] 9.6 g/dL Critically low 12.0-16.0 [facility] Comment on above: Performed By: #### U AMIC #### [facility] [address] [place] [address] Dr. Jordan Blackwell IG # 1.13 10e3/ul Critically high 0.00-0.03 [facility] Comment on above: Performed By: #### U AMIC #### [facility] [address] [place] [address] Dr. Jordan Blackwell IG % 14.1 % Critically high 0.0-0.5 [facility] Comment on above: Performed By: #### U AMIC #### [facility] [address] [place] [address] Dr. Jordan Blackwell LYMPH # 1.6 103/ul Normal 1.2-3.8 [facility] Comment on above: Performed By: #### U AMIC #### [facility] [address] [place] [address] Dr. Jordan Blackwell Lymphocytes/100 WBC (Bld) 20.0 % Critically low 20.5-60.0 [facility] Comment on above: Performed By: #### U AMIC #### [facility] [address] [place] [address] Dr. Jordan Blackwell MANUAL DIFF REQ NO Normal [facility] Comment on above: Performed By: #### U AMIC #### [facility] [address] [place] [address] Dr. Jordan Blackwell MCH (RBC) [Entitic mass] 31.6 pg Normal 26.7-34.0 [facility] Comment on above: Performed By: #### U AMIC #### [facility] [address] [place] [address] Dr. Jordan Blackwell MCHC (RBC) [Mass/Vol] 32.9 g/dL Normal 29.9-35.2 [facility] Comment on above: Performed By: #### U AMIC #### [facility] [address] [place] [address] Dr. Jordan Blackwell MCV (RBC) [Entitic vol] 96.1 fL Normal 81.0-99.0 [facility] Comment on above: Performed By: #### U AMIC #### [facility] [address] [place] [address] Dr. Jordan Blackwell MONO # 0.9 103/ul Critically high 0.3-0.8 [facility] Comment on above: Performed By: #### U AMIC #### [facility] [address] [place] [address] Dr. Jordan Blackwell Monocytes/100 WBC (Bld) 11.3 % Normal 1.7-12.0 [facility] Comment on above: Performed By: #### U AMIC #### [facility] [address] [place] [address] Dr. Jordan Blackwell NEUT # 4.3 103/ul Normal 1.4-6.5 [facility] Comment on above: Performed By: #### U AMIC #### [facility] [address] [place] [address] Dr. Jordan Blackwell Neutrophils/100 WBC (Bld) 53.2 % Normal 43.0-75.0 [facility] Comment on above: Performed By: #### U AMIC #### [facility] [address] [place] [address] Dr. Jordan Blackwell Platelet mean volume (Bld) [Entitic vol] 9.3 fL Critically low 9.5-13.5 [facility] Comment on above: Performed By: #### U AMIC #### [facility] [address] [place] [address] Dr. Jordan Blackwell PLT 265 103/ul Normal 150-450 [facility] Comment on above: Performed By: #### U AMIC #### [facility] [address] [place] [address] Dr. Jordan Blackwell RBC 3.04 106/ul Critically low 4.20-5.40 [facility] Comment on above: Performed By: #### U AMIC #### [facility] [address] [place] [address] Dr. Jordan Blackwell WBC 8.0 103/ul Normal 4.0-11.0 [facility] Comment on above: Performed By: #### U AMIC #### [facility] [address] [place] [address] Dr. Jordan Blackwell POINT OF CARE GLUCOSEon 02-07 Glucose [Mass/Vol] 128 mg/dL Critically high 74-106 [facility] Comment on above: Performed By: #### U RCX #### [facility] [address] [place] [address] Dr. Jordan Blackwell PROF CHEM 8 (BAS METB)on Anion gap [Moles/Vol] 12.0 mmol/L Normal [facility] Comment on above: Performed By: #### P RBC #### [facility] [address] [place] [address] Dr. Jordan Blackwell Calcium [Mass/Vol] 7.4 mg/dL Critically low 8.5-10.1 [facility] Comment on above: Performed By: #### P RBC #### [facility] [address] [place] [address] Dr. Jordan Blackwell Chloride [Moles/Vol] 102 mmol/L Normal 98-107 [facility] Comment on above: Performed By: #### P RBC #### [facility] [address] [place] [address] Dr. Jordan Blackwell CO2 [Moles/Vol] 24.1 mmol/L Normal 21.0-32.0 [facility] Comment on above: Performed By: #### P RBC #### [facility] [address] [place] [address] Dr. Jordan Blackwell Creatinine [Mass/Vol] 0.64 mg/dL Normal 0.55-1.02 [facility] Comment on above: Performed By: #### P RBC #### [facility] [address] [address] [address] Jordan Blackwell EGFR-AF FRENCH >60 Normal >=60 [facility] Comment on above: Performed By: #### P RBC #### [facility] [address] [address] [address] Jordan Blackwell EGFR-NON AF FRENCH >60 Normal >=60 [facility] Comment on above: Performed By: #### P RBC #### [facility] [address] [address] [address] Jordan Blackwell Glucose [Mass/Vol] 126 mg/dL Critically high 74-106 [facility] Comment on above: Performed By: #### P RBC #### [facility] [address] [place] [address] Dr. Jordan Blackwell Potassium [Moles/Vol] 4.1 mmol/L Normal 3.5-5.1 [facility] Comment on above: Performed By: #### P RBC #### [facility] [address] [place] [address] Dr. Jordan Blackwell Sodium [Moles/Vol] 134 mmol/L Critically low 136-145 [facility] Comment on above: Performed By: #### P RBC #### [facility] [address] [place] [address] Dr. Jordan Blackwell Urea nitrogen [Mass/Vol] 8.0 mg/dL Normal 7.0-18.0 [facility] Comment on above: Performed By: #### P RBC #### [facility] [address] [place] [address] Dr. Jordan Blackwell Urea nitrogen/Creatinine [Mass ratio] 12.5 mg/mg Normal [facility] Comment on above: Performed By: #### P RBC #### [facility] [address] [place] [address] Dr. Jordan Blackwell CBC W MANUAL DIFFon 02-25-20 22 ATYPICAL LYMPH # Normal [facility] Comment on above: Performed By: #### P RBC #### [facility] [address] [place] [address] Dr. Jordan Blackwell ATYPICAL LYMPH % Normal [facility] Comment on above: Performed By: #### P RBC #### [facility] [address] [place] [address] Dr. Jordan Blackwell BAND # 0.0 103/ul Normal 0.0-0.3 [facility] Comment on above: Performed By: #### P RBC #### [facility] [address] [place] [address] Dr. Jordan Blackwell BAND % 0 % Normal 0-5 [facility] Comment on above: Performed By: #### P RBC #### [facility] [address] [place] [address] Dr. Jordan Blackwell BASOM # 0.00 103/ul Normal 0.00-0.10 [facility] Comment on above: Performed By: #### P RBC #### [facility] [address] [place] [address] Dr. Jordan Blackwell BASOM % 0.0 % Critically low 0.2-2.0 [facility] Comment on above: Performed By: #### P RBC #### [facility] [address] [place] [address] Dr. Jordan Blackwell BLAST # Normal [facility] Comment on above: Performed By: #### P RBC #### [facility] [address] [place] [address] Dr. Jordan Blackwell BLAST % Normal [facility] Comment on above: Performed By: #### P RBC #### [facility] [address] [place] [address] Dr. Jordan Blackwell CORRECTED WBC Normal 4.0-11.0 [facility] Comment on above: Performed By: #### P RBC #### [facility] [address] [place] [address] Dr. Jordan Blackwell EOS # 0.00 103/ul Normal 0.00-0.70 [facility] Comment on above: Performed By: #### P RBC #### [facility] [address] [place] [address] Dr. Jordan Blackwell EOS% 0.0 % Critically low 0.9-7.0 [facility] Comment on above: Performed By: #### P RBC #### [facility] [address] [place] [address] Dr. Jordan Blackwell HCT 27.2 % Critically low 36.0-48.0 [facility] Comment on above: Performed By: #### P RBC #### [facility] [address] [place] [address] Dr. Jordan Blackwell HGB 9.3 g/dl Critically low 12.0-16.0 [facility] Comment on above: Performed By: #### P RBC #### [facility] [address] [place] [address] Dr. Jordan Blackwell LYMPHM # 2.41 103/ul Normal 1.20-3.80 [facility] Comment on above: Performed By: #### P RBC #### [facility] [address] [place] [address] Dr. Jordan Blackwell LYMPHM% 34.0 % Normal 20.5-60.0 [facility] Comment on above: Performed By: #### P RBC #### [facility] [address] [place] [address] Dr. Jordan Blackwell MCH 32.3 pg Normal 26.7-34.0 [facility] Comment on above: Performed By: #### P RBC #### [facility] [address] [place] [address] Dr. Jordan Blackwell MCHC 34.2 g/dl Normal 29.9-35.2 [facility] Comment on above: Performed By: #### P RBC #### [facility] [address] [place] [address] Dr. Jordan Blackwell MCV 94.4 fL Normal 81.0-99.0 [facility] Comment on above: Performed By: #### P RBC #### [facility] [address] [place] [address] Dr. Jordan Blackwell METAMYELOCYTE # Normal [facility] Comment on above: Performed By: #### P RBC #### [facility] [address] [place] [address] Dr. Jordan Blackwell METAMYELOCYTE % Normal [facility] Comment on above: Performed By: #### P RBC #### [facility] [address] [place] [address] Dr. Jordan Blackwell MONOM# 0.64 103/ul Normal 0.30-0.80 [facility] Comment on above: Performed By: #### P RBC #### [facility] [address] [place] [address] Dr. Jordan Blackwell MONOM% 9.0 % Normal 1.7-12.0 [facility] Comment on above: Performed By: #### P RBC #### [facility] [address] [place] [address] Dr. Jordan Blackwell MPV 9.4 fL Critically low 9.5-13.5 [facility] Comment on above: Performed By: #### P RBC #### [facility] [address] [place] [address] Dr. Jordan Blackwell MYELOCYTE # Normal [facility] Comment on above: Performed By: #### P RBC #### [facility] [address] [place] [address] Dr. Jordan Blackwell MYELOCYTE % Normal [facility] Comment on above: Performed By: #### P RBC #### [facility] [address] [place] [address] Dr. Jordan Blackwell NRBC Normal [facility] Comment on above: Performed By: #### P RBC #### [facility] [address] [place] [address] Dr. Jordan Blackwell PLT 244 103/ul Normal 150-450 [facility] Comment on above: Performed By: #### P RBC #### [facility] [address] [place] [address] Dr. Jordan Blackwell RBC 2.88 106/ul Critically low 4.20-5.40 [facility] Comment on above: Performed By: #### P RBC #### [facility] [address] [place] [address] Dr. Jordan Blackwell RDW 14.8 % Normal 11.0-15.0 [facility] Comment on above: Performed By: #### P RBC #### [facility] [address] [address] [address] Jordan Blackwell SEG # 4.05 103/ul Normal 1.40-6.50 [facility] Comment on above: Performed By: #### P RBC #### [facility] [address] [address] [address] Jordan Blackwell SEG % 57.0 % Normal 43.0-75.0 [facility] Comment on above: Performed By: #### P RBC #### [facility] [address] [address] [address] Jordan Blackwell WBC 7.1 103/ul Normal 4.0-11.0 [facility] Comment on above: Performed By: #### P RBC #### [facility] [address] [place] [address] Dr. Jordan Blackwell POINT OF CARE GLUCOSEon 02-06 Glucose [Mass/Vol] 106 mg/dL Normal 74-106 [facility] Comment on above: Performed By: #### P RBC #### [facility] [address] [address] [address] Jordan Blackwell Glucose [Mass/Vol] 112 mg/dL Critically high 74-106 [facility] Comment on above: Performed By: #### U RCX #### [facility] [address] [address] [address] Jordan Blackwell Glucose [Mass/Vol] 131 mg/dL Critically high 74-106 [facility] Comment on above: Performed By: #### C BC #### [facility] [address] [address] [address] Jordan Blackwell PROF CHEM 8 (BAS METB)on Anion gap [Moles/Vol] 9.7 mmol/L Normal [facility] Comment on above: Performed By: #### P RBC #### [facility] [address] [place] [address] Dr. Jordan Blackwell Calcium [Mass/Vol] 7.2 mg/dL Critically low 8.5-10.1 [facility] Comment on above: Performed By: #### P RBC #### [facility] [address] [place] [address] Dr. Jordan Blackwell Chloride [Moles/Vol] 102 mmol/L Normal 98-107 [facility] Comment on above: Performed By: #### P RBC #### [facility] [address] [place] [address] Dr. Jordan Blackwell CO2 [Moles/Vol] 24.1 mmol/L Normal 21.0-32.0 [facility] Comment on above: Performed By: #### P RBC #### [facility] [address] [place] [address] Dr. Jordan Blackwell Creatinine [Mass/Vol] 0.64 mg/dL Normal 0.55-1.02 [facility] Comment on above: Performed By: #### P RBC #### [facility] [address] [place] [address] Dr. Jordan Blackwell EGFR-AF FRENCH >60 Normal >=60 [facility] Comment on above: Performed By: #### P RBC #### [facility] [address] [place] [address] Dr. Jordan Blackwell EGFR-NON AF FRENCH >60 Normal >=60 [facility] Comment on above: Performed By: #### P RBC #### [facility] [address] [place] [address] Dr. Jordan Blackwell Glucose [Mass/Vol] 96 mg/dL Normal 74-106 [facility] Comment on above: Performed By: #### P RBC #### [facility] [address] [place] [address] Dr. Jordan Blackwell Potassium [Moles/Vol] 3.8 mmol/L Normal 3.5-5.1 [facility] Comment on above: Performed By: #### P RBC #### [facility] [address] [place] [address] Dr. Jordan Blackwell Sodium [Moles/Vol] 132 mmol/L Critically low 136-145 [facility] Comment on above: Performed By: #### P RBC #### [facility] [address] [address] [address] Jordan Blackwell Urea nitrogen [Mass/Vol] 8.0 mg/dL Normal 7.0-18.0 [facility] Comment on above: Performed By: #### P RBC #### [facility] [address] [address] [address] Jordan Blackwell Urea nitrogen/Creatinine [Mass ratio] 12.5 mg/mg Normal [facility] Comment on above: Performed By: #### P RBC #### [facility] [address] [address] [address] Jordan Blackwell Anion gap [Moles/Vol] 8.7 mmol/L Normal [facility] Comment on above: Performed By: #### B MP #### [facility] [address] [address] [address] Jordan Blackwell Calcium [Mass/Vol] 7.5 mg/dL Critically low 8.5-10.1 [facility] Comment on above: Performed By: #### B MP #### [facility] [address] [address] [address] Jordan Blackwell Chloride [Moles/Vol] 99 mmol/L Normal 98-107 [facility] Comment on above: Performed By: #### B MP #### [facility] [address] [address] [address] Jordan Blackwell CO2 [Moles/Vol] 25.4 mmol/L Normal 21.0-32.0 [facility] Comment on above: Performed By: #### B MP #### [facility] [address] [address] [address] Jordan Blackwell Creatinine [Mass/Vol] 0.64 mg/dL Normal 0.55-1.02 [facility] Comment on above: Performed By: #### B MP #### [facility] [address] [address] [address] Jordan Blackwell EGFR-AF FRENCH >60 Normal >=60 [facility] Comment on above: Performed By: #### B MP #### [facility] [address] [address] [address] Jordan Blackwell EGFR-NON AF FRENCH >60 Normal >=60 [facility] Comment on above: Performed By: #### B MP #### [facility] [address] [address] [address] Jordan Blackwell Glucose [Mass/Vol] 110 mg/dL Critically high 74-106 [facility] Comment on above: Performed By: #### B MP #### [facility] [address] [address] [address] Jordan Blackwell Potassium [Moles/Vol] 3.1 mmol/L Critically low 3.5-5.1 [facility] Comment on above: Performed By: #### B MP #### [facility] [address] [address] [address] Jordan Blackwell Sodium [Moles/Vol] 130 mmol/L Critically low 136-145 [facility] Comment on above: Performed By: #### B MP #### [facility] [address] [address] [address] Jordan Blackwell Urea nitrogen [Mass/Vol] 8.0 mg/dL Normal 7.0-18.0 [facility] Comment on above: Performed By: #### B MP #### [facility] [address] [address] [address] Jordan Blackwell Urea nitrogen/Creatinine [Mass ratio] 12.5 mg/mg Normal [facility] Comment on above: Performed By: #### B MP #### [facility] [address] [address] [address] Jordan Blackwell ABO RH RETYPEon 02-23-2022 ABO and Rh group Nom (Bld) DONE Normal [facility] Comment on above: Performed By: #### U RCX #### [facility] [address] [address] [address] Jordan Blackwell CBC W MANUAL DIFFon 02-24-20 22 BAND # 0.0 103/ul Normal 0.0-0.3 [facility] Comment on above: Performed By: #### P RBC #### [facility] [address] [place] [address] Dr. Jordan Blackwell BAND % 0 % Normal 0-5 [facility] Comment on above: Performed By: #### P RBC #### [facility] [address] [place] [address] Dr. Jordan Blackwell BASOM # 0.08 103/ul Normal 0.00-0.10 [facility] Comment on above: Performed By: #### P RBC #### [facility] [address] [place] [address] Dr. Jordan Blackwell EOS # 0.00 103/ul Normal 0.00-0.70 [facility] Comment on above: Performed By: #### P RBC #### [facility] [address] [place] [address] Dr. Jordan Blackwell EOS% 0.0 % Critically low 0.9-7.0 [facility] Comment on above: Performed By: #### P RBC #### [facility] [address] [place] [address] Dr. Jordan Blackwell HCT 27.3 % Critically low 36.0-48.0 [facility] Comment on above: Performed By: #### P RBC #### [facility] [address] [place] [address] Dr. Jordan Blackwell HGB 9.3 g/dl Critically low 12.0-16.0 [facility] Comment on above: Performed By: #### P RBC #### [facility] [address] [place] [address] Dr. Jordan Blackwell LYMPHM # 1.15 103/ul Critically low 1.20-3.80 [facility] Comment on above: Performed By: #### P RBC #### [facility] [address] [place] [address] Dr. Jordan Blackwell LYMPHM% 14.0 % Critically low 20.5-60.0 [facility] Comment on above: Performed By: #### P RBC #### [facility] [address] [place] [address] Dr. Jordan Blackwell MCH 32.1 pg Normal 26.7-34.0 [facility] Comment on above: Performed By: #### P RBC #### [facility] [address] [place] [address] Dr. Jordan Blackwell MCHC 34.1 g/dl Normal 29.9-35.2 [facility] Comment on above: Performed By: #### P RBC #### [facility] [address] [place] [address] Dr. Jordan Blackwell MCV 94.1 fL Normal 81.0-99.0 [facility] Comment on above: Performed By: #### P RBC #### [facility] [address] [place] [address] Dr. Jordan Blackwell MONOM# 1.72 103/ul Critically high 0.30-0.80 [facility] Comment on above: Performed By: #### P RBC #### [facility] [address] [place] [address] Dr. Jordan Blackwell MONOM% 21.0 % Critically high 1.7-12.0 [facility] Comment on above: Performed By: #### P RBC #### [facility] [address] [place] [address] Dr. Jordan Blackwell MPV 9.1 fL Critically low 9.5-13.5 [facility] Comment on above: Performed By: #### P RBC #### [facility] [address] [place] [address] Dr. Jordan Blackwell PLT 223 103/ul Normal 150-450 [facility] Comment on above: Performed By: #### P RBC #### [facility] [address] [place] [address] Dr. Jordan Blackwell RBC 2.90 106/ul Critically low 4.20-5.40 [facility] Comment on above: Performed By: #### P RBC #### [facility] [address] [place] [address] Dr. Jordan Blackwell RDW 14.6 % Normal 11.0-15.0 [facility] Comment on above: Performed By: #### P RBC #### [facility] [address] [place] [address] Dr. Jordan Blackwell SEG # 5.25 103/ul Normal 1.40-6.50 [facility] Comment on above: Performed By: #### P RBC #### [facility] [address] [place] [address] Dr. Jordan Blackwell SEG % 64.0 % Normal 43.0-75.0 [facility] Comment on above: Performed By: #### P RBC #### [facility] [address] [place] [address] Dr. Jordan Blackwell WBC 8.2 103/ul Normal 4.0-11.0 [facility] Comment on above: Performed By: #### P RBC #### [facility] [address] [place] [address] Dr. Jordan Blackwell ATYPICAL LYMPH # Normal [facility] Comment on above: Performed By: #### P RBC #### [facility] [address] [place] [address] Dr. Jordan Blackwell ATYPICAL LYMPH % Normal [facility] Comment on above: Performed By: #### P RBC #### [facility] [address] [place] [address] Dr. Jordan Blackwell BAND # 0.1 103/ul Normal 0.0-0.3 [facility] Comment on above: Performed By: #### P RBC #### [facility] [address] [place] [address] Dr. Jordan Blackwell BAND % 2 % Normal 0-5 [facility] Comment on above: Performed By: #### P RBC #### [facility] [address] [place] [address] Dr. Jordan Blackwell BASOM # 0.07 103/ul Normal 0.00-0.10 [facility] Comment on above: Performed By: #### P RBC #### [facility] [address] [place] [address] Dr. Jordan Blackwell BASOM % 1.0 % Normal 0.2-2.0 [facility] Comment on above: Performed By: #### P RBC #### [facility] [address] [place] [address] Dr. Jordan Blackwell BLAST # Normal [facility] Comment on above: Performed By: #### P RBC #### [facility] [address] [address] [address] Jordan Blackwell BLAST % Normal [facility] Comment on above: Performed By: #### P RBC #### [facility] [address] [address] [address] Jordan Blackwell CORRECTED WBC Normal 4.0-11.0 [facility] Comment on above: Performed By: #### P RBC #### [facility] [address] [place] [address] Dr. Jordan Blackwell EOS # 0.28 103/ul Normal 0.00-0.70 [facility] Comment on above: Performed By: #### P RBC #### [facility] [address] [place] [address] Dr. Jordan Blackwell EOS% 4.0 % Normal 0.9-7.0 [facility] Comment on above: Performed By: #### P RBC #### [facility] [address] [place] [address] Dr. Jordan Blackwell HCT 22.2 % Critically low 36.0-48.0 [facility] Comment on above: Performed By: #### P RBC #### [facility] [address] [place] [address] Dr. Jordan Blackwell HGB 7.4 g/dl Critically low 12.0-16.0 [facility] Comment on above: Performed By: #### P RBC #### [facility] [address] [place] [address] Dr. Jordan Blackwell HYPOCHROMASIA 2+ Normal [facility] Comment on above: Performed By: #### P RBC #### [facility] [address] [place] [address] Dr. Jordan Blackwell LYMPHM # 2.35 103/ul Normal 1.20-3.80 [facility] Comment on above: Performed By: #### P RBC #### [facility] [address] [place] [address] Dr. Jordan Blackwell LYMPHM% 34.0 % Normal 20.5-60.0 [facility] Comment on above: Performed By: #### P RBC #### [facility] [address] [place] [address] Dr. Jordan Blackwell MCH 32.5 pg Normal 26.7-34.0 [facility] Comment on above: Performed By: #### P RBC #### [facility] [address] [place] [address] Dr. Jordan Blackwell MCHC 33.3 g/dl Normal 29.9-35.2 [facility] Comment on above: Performed By: #### P RBC #### [facility] [address] [place] [address] Dr. Jordan Blackwell MCV 97.4 fL Normal 81.0-99.0 [facility] Comment on above: Performed By: #### P RBC #### [facility] [address] [place] [address] Dr. Jordan Blackwell METAMYELOCYTE # Normal [facility] Comment on above: Performed By: #### P RBC #### [facility] [address] [place] [address] Dr. Jordan Blackwell METAMYELOCYTE % Normal [facility] Comment on above: Performed By: #### P RBC #### [facility] [address] [place] [address] Dr. Jordan Blackwell MONOM# 0.62 103/ul Normal 0.30-0.80 [facility] Comment on above: Performed By: #### P RBC #### [facility] [address] [place] [address] Dr. Jordan Blackwell MONOM% 9.0 % Normal 1.7-12.0 [facility] Comment on above: Performed By: #### P RBC #### [facility] [address] [place] [address] Dr. Jordan Blackwell MPV 9.7 fL Normal 9.5-13.5 [facility] Comment on above: Performed By: #### P RBC #### [facility] [address] [place] [address] Dr. Jordan Blackwell MYELOCYTE # Normal [facility] Comment on above: Performed By: #### P RBC #### [facility] [address] [place] [address] Dr. Jordan Blackwell MYELOCYTE % Normal [facility] Comment on above: Performed By: #### P RBC #### [facility] [address] [address] [address] Jordan Blackwell NRBC Normal [facility] Comment on above: Performed By: #### P RBC #### [facility] [address] [address] [address] Jordan Blackwell PLT 224 103/ul Normal 150-450 [facility] Comment on above: Performed By: #### P RBC #### [facility] [address] [place] [address] Dr. Jordan Blackwell POLYCHROMASIA SLIGHT Normal [facility] Comment on above: Performed By: #### P RBC #### [facility] [address] [place] [address] Dr. Jordan Blackwell RBC 2.28 106/ul Critically low 4.20-5.40 [facility] Comment on above: Performed By: #### P RBC #### [facility] [address] [place] [address] Dr. Jordan Blackwell RDW 12.7 % Normal 11.0-15.0 [facility] Comment on above: Performed By: #### P RBC #### [facility] [address] [place] [address] Dr. Jordan Blackwell SEG # 3.45 103/ul Normal 1.40-6.50 [facility] Comment on above: Performed By: #### P RBC #### [facility] [address] [place] [address] Dr. Jordan Blackwell SEG % 50.0 % Normal 43.0-75.0 [facility] Comment on above: Performed By: #### P RBC #### [facility] [address] [place] [address] Dr. Jordan Blackwell WBC 6.9 103/ul Normal 4.0-11.0 [facility] Comment on above: Performed By: #### P RBC #### [facility] [address] [address] [address] Jordan Blackwell OSMOLALITYon 02-23-2022 Osmolality [Osmolality] 260 mosm/kg Critically low 280-301 [facility] Comment on above: Performed By: #### O SMO #### [facility] [address] [address] [address] Jordan Blackwell POINT OF CARE GLUCOSEon 02-06 Glucose [Mass/Vol] 71 mg/dL Critically low 74-106 [facility] Comment on above: Performed By: #### O SMO #### [facility] [address] [address] [address] Jordan Blackwell Glucose [Mass/Vol] 157 mg/dL Critically high 74-106 [facility] Comment on above: Performed By: #### U RCX #### [facility] [address] [place] [address] Dr. Jordan Blackwell Glucose [Mass/Vol] 196 mg/dL Critically high 74-106 [facility] Comment on above: Performed By: #### C BC #### [facility] [address] [address] [address] Jordan Blackwell PROF CHEM 8 (BAS METB)on Anion gap [Moles/Vol] 8.7 mmol/L Normal [facility] Comment on above: Performed By: #### P RBC #### [facility] [address] [place] [address] Dr. Jordan Blackwell Calcium [Mass/Vol] 7.6 mg/dL Critically low 8.5-10.1 [facility] Comment on above: Performed By: #### P RBC #### [facility] [address] [place] [address] Dr. Jordan Blackwell Chloride [Moles/Vol] 98 mmol/L Normal 98-107 [facility] Comment on above: Performed By: #### P RBC #### [facility] [address] [place] [address] Dr. Jordan Blackwell CO2 [Moles/Vol] 26.5 mmol/L Normal 21.0-32.0 [facility] Comment on above: Performed By: #### P RBC #### [facility] [address] [address] [address] Jordan Blackwell Creatinine [Mass/Vol] 0.65 mg/dL Normal 0.55-1.02 [facility] Comment on above: Performed By: #### P RBC #### [facility] [address] [address] [address] Jordan Blackwell EGFR-AF FRENCH >60 Normal >=60 [facility] Comment on above: Performed By: #### P RBC #### [facility] [address] [address] [address] Jordan Blackwell EGFR-NON AF FRENCH >60 Normal >=60 [facility] Comment on above: Performed By: #### P RBC #### [facility] [address] [place] [address] Dr. Jordan Blackwell Glucose [Mass/Vol] 130 mg/dL Critically high 74-106 [facility] Comment on above: Performed By: #### P RBC #### [facility] [address] [place] [address] Dr. Jordan Blackwell Potassium [Moles/Vol] 3.2 mmol/L Critically low 3.5-5.1 [facility] Comment on above: Performed By: #### P RBC #### [facility] [address] [place] [address] Dr. Jordan Blackwell Sodium [Moles/Vol] 130 mmol/L Critically low 136-145 [facility] Comment on above: Performed By: #### P RBC #### [facility] [address] [place] [address] Dr. Jordan Blackwell Urea nitrogen [Mass/Vol] 9.0 mg/dL Normal 7.0-18.0 [facility] Comment on above: Performed By: #### P RBC #### [facility] [address] [place] [address] Dr. Jordan Blackwell Urea nitrogen/Creatinine [Mass ratio] 13.8 mg/mg Normal [facility] Comment on above: Performed By: #### P RBC #### [facility] [address] [place] [address] Dr. Jordan Blackwell T3, TOTAL (TRIIODOTHYRONINE) on 02-23-2022 T3, TOTAL 80 ng/dL Normal 71-180 [facility] Comment on above: Performed By: #### C BC #### [facility] [address] [place] [address] Dr. Jordan Blackwell TYPE AND SCREENon 02-23-2022 TYPE AND SCREEN Negative Normal [facility] Comment on above: Performed By: #### C BC #### [facility] [address] [place] [address] Dr. Jordan Blackwell BNPon 02-22-2022 Natriuretic peptide B (Bld) [Mass/Vol] 109.0 pg/mL Normal <=900.0 [facility] Comment on above: Performed By: #### U RCX #### [facility] [address] [place] [address] Dr. Jordan Blackwell CBC W MANUAL DIFFon 02-23-20 ATYPICAL LYMPH # Normal [facility] Comment on above: Performed By: #### P RBC #### [facility] [address] [place] [address] Dr. Jordan Blackwell ATYPICAL LYMPH % Normal [facility] Comment on above: Performed By: #### P RBC #### [facility] [address] [place] [address] Dr. Jordan Blackwell BAND # Normal 0.0-0.3 [facility] Comment on above: Performed By: #### P RBC #### [facility] [address] [place] [address] Dr. Jordan Blackwell BAND % Normal 0-5 [facility] Comment on above: Performed By: #### P RBC #### [facility] [address] [place] [address] Dr. Jordan Blackwell BASOM # 0.00 103/ul Normal 0.00-0.10 [facility] Comment on above: Performed By: #### P RBC #### [facility] [address] [place] [address] Dr. Jordan Blackwell BASOM % 0.0 % Critically low 0.2-2.0 [facility] Comment on above: Performed By: #### P RBC #### [facility] [address] [address] [address] Jordan Blackwell BLAST # Normal [facility] Comment on above: Performed By: #### P RBC #### [facility] [address] [place] [address] Dr. Jordan Blackwell BLAST % Normal [facility] Comment on above: Performed By: #### P RBC #### [facility] [address] [place] [address] Dr. Jordan Blackwell CORRECTED WBC Normal 4.0-11.0 [facility] Comment on above: Performed By: #### P RBC #### [facility] [address] [place] [address] Dr. Jordan Blackwell EOS # 0.00 103/ul Normal 0.00-0.70 [facility] Comment on above: Performed By: #### P RBC #### [facility] [address] [place] [address] Dr. Jordan Blackwell EOS% 0.0 % Critically low 0.9-7.0 [facility] Comment on above: Performed By: #### P RBC #### [facility] [address] [place] [address] Dr. Jordan Blackwell HCT 24.4 % Critically low 36.0-48.0 [facility] Comment on above: Performed By: #### P RBC #### [facility] [address] [place] [address] Dr. Jordan Blackwell HGB 8.2 g/dl Critically low 12.0-16.0 [facility] Comment on above: Performed By: #### P RBC #### [facility] [address] [place] [address] Dr. Jordan Blackwell LYMPHM # 0.91 103/ul Critically low 1.20-3.80 [facility] Comment on above: Performed By: #### P RBC #### [facility] [address] [place] [address] Dr. Jordan Blackwell LYMPHM% 10.0 % Critically low 20.5-60.0 [facility] Comment on above: Performed By: #### P RBC #### [facility] [address] [place] [address] Dr. Jordan Blackwell MCH 32.3 pg Normal 26.7-34.0 [facility] Comment on above: Performed By: #### P RBC #### [facility] [address] [place] [address] Dr. Jordan Blackwell MCHC 33.6 g/dl Normal 29.9-35.2 [facility] Comment on above: Performed By: #### P RBC #### [facility] [address] [place] [address] Dr. Jordan Blackwell MCV 96.1 fL Normal 81.0-99.0 [facility] Comment on above: Performed By: #### P RBC #### [facility] [address] [place] [address] Dr. Jordan Blackwell METAMYELOCYTE # Normal [facility] Comment on above: Performed By: #### P RBC #### [facility] [address] [place] [address] Dr. Jordan Blackwell METAMYELOCYTE % Normal [facility] Comment on above: Performed By: #### P RBC #### [facility] [address] [place] [address] Dr. Jordan Blackwell MONOM# 1.00 103/ul Critically high 0.30-0.80 [facility] Comment on above: Performed By: #### P RBC #### [facility] [address] [place] [address] Dr. Jordan Blackwell MONOM% 11.0 % Normal 1.7-12.0 [facility] Comment on above: Performed By: #### P RBC #### [facility] [address] [place] [address] Dr. Jordan Blackwell MPV 9.7 fL Normal 9.5-13.5 [facility] Comment on above: Performed By: #### P RBC #### [facility] [address] [place] [address] Dr. Jordan Blackwell MYELOCYTE # Normal [facility] Comment on above: Performed By: #### P RBC #### [facility] [address] [address] [address] Jordan Blackwell MYELOCYTE % Normal [facility] Comment on above: Performed By: #### P RBC #### [facility] [address] [place] [address] Dr. Jordan Blackwell NRBC Normal [facility] Comment on above: Performed By: #### P RBC #### [facility] [address] [place] [address] Dr. Jordan Blackwell PLT 251 103/ul Normal 150-450 [facility] Comment on above: Performed By: #### P RBC #### [facility] [address] [place] [address] Dr. Jordan Blackwell RBC 2.54 106/ul Critically low 4.20-5.40 [facility] Comment on above: Performed By: #### P RBC #### [facility] [address] [place] [address] Dr. Joradn Blackwell RDW 12.6 % Normal 11.0-15.0 [facility] Comment on above: Performed By: #### P RBC #### [facility] [address] [place] [address] Dr. Jordan Blackwell SEG # 7.19 103/ul Critically high 1.40-6.50 [facility] Comment on above: Performed By: #### P RBC #### [facility] [address] [place] [address] Dr. Jordan Blackwell SEG % 79.0 % Critically high 43.0-75.0 [facility] Comment on above: Performed By: #### P RBC #### [facility] [address] [place] [address] Dr. Jordan Blackwell WBC 9.1 103/ul Normal 4.0-11.0 [facility] Comment on above: Performed By: #### P RBC #### [facility] [address] [place] [address] Dr. Jordan Blackwell CULTURE URINEon 02-22-2022 CULTURE URINE Culture Observations : LIGHT GROWTH OF MIXED GENITAL RUBÉN. NO POTENTIAL PATHOGENS SEEN. Normal [facility] Comment on above: Performed By: #### U RCX #### [facility] [address] [place] [address] Dr. Jordan Blackwell Covid-19 PCR ([facility])on 02-06 SARS-CoV-2 (COVID-19) RNA TESFAYE+probe Ql (Unsp spec) Not detected Normal NOT DETECTED [facility] Comment on above: Result Comment: When diagnostic testing is negative, the possibility of a false negative should be considered in the context of a patient's recent exposures and the presence of clinical signs and symptoms consistent with SARS-CoV-2. This test is not yet approved or cleared by the [place] FDA. When there are no FDA-approved or cleared tests available, and other criteria are met, FDA can make tests available under an emergency access mechanism called an Emergency Use Authorization (EUA). The EUA for this test is supported by the [place] of Health and Human Service's declaration that circumstances exist to justify the emergency use of in vitro diagnostics for the detection and/or diagnosis of the virus that causes COVID-19. This EUA will remain in effect for the duration of the COVID-19 declaration justifying emergency of IVDs, unless it is terminated or revoked by the FDA (after which the test may no longer be used). Performed By: #### U RCX #### [facility] [address] [place] [address] Dr. Jordan Blackwell POINT OF CARE GLUCOSEon 02-06 Glucose [Mass/Vol] 130 mg/dL Critically high 74-106 [facility] Comment on above: Performed By: #### B MP #### [facility] [address] [place] [address] Dr. Jordan Blackwell Glucose [Mass/Vol] 138 mg/dL Critically high 74-106 [facility] Comment on above: Performed By: #### U AMIC #### [facility] [address] [place] [address] Dr. Jordan Blackwell Glucose [Mass/Vol] 185 mg/dL Critically high 74-106 [facility] Comment on above: Performed By: #### B MP #### [facility] [address] [place] [address] Dr. Jordan Blackwell PROF 14(COMP METB)on 02-22- 022 Albumin [Mass/Vol] 2.6 g/dL Critically low 3.4-5.0 [facility] Comment on above: Performed By: #### O SMO #### [facility] [address] [place] [address] Dr. Jordan Blackwell Albumin/Globulin [Mass ratio] 0.8 {ratio} Normal [facility] Comment on above: Performed By: #### O SMO #### [facility] [address] [place] [address] Dr. Jordan Blackwell ALP [Catalytic activity/Vol] 76 U/L Normal 46-116 [facility] Comment on above: Performed By: #### O SMO #### [facility] [address] [place] [address] Dr. Jordan Blackwell ALT [Catalytic activity/Vol] 22 U/L Normal 14-59 [facility] Comment on above: Performed By: #### O SMO #### [facility] [address] [place] [address] Dr. Jordan Blackwell Anion gap [Moles/Vol] 11.3 mmol/L Normal [facility] Comment on above: Performed By: #### O SMO #### [facility] [address] [place] [address] Dr. Jordan Blackwell AST [Catalytic activity/Vol] 28 U/L Normal 15-37 [facility] Comment on above: Performed By: #### O SMO #### [facility] [address] [place] [address] Dr. Jordan Blackwell Bilirubin [Mass/Vol] 0.6 mg/dL Normal 0.2-1.0 [facility] Comment on above: Performed By: #### O SMO #### [facility] [address] [place] [address] Dr. Jordan Blackwell Calcium [Mass/Vol] 8.3 mg/dL Critically low 8.5-10.1 [facility] Comment on above: Performed By: #### O SMO #### [facility] [address] [place] [address] Dr. Jordan Blackwell Chloride [Moles/Vol] 91 mmol/L Critically low 98-107 [facility] Comment on above: Performed By: #### O SMO #### [facility] [address] [place] [address] Dr. Jordan Blackwell CO2 [Moles/Vol] 27.9 mmol/L Normal 21.0-32.0 [facility] Comment on above: Performed By: #### O SMO #### [facility] [address] [address] [address] Jordan Blackwell Creatinine [Mass/Vol] 0.79 mg/dL Normal 0.55-1.02 [facility] Comment on above: Performed By: #### O SMO #### [facility] [address] [place] [address] Dr. Jordan Blackwell EGFR-AF FRENCH >60 Normal >=60 [facility] Comment on above: Performed By: #### O SMO #### [facility] [address] [place] [address] Dr. Jordan Blackwell EGFR-NON AF FRENCH >60 Normal >=60 [facility] Comment on above: Performed By: #### O SMO #### [facility] [address] [place] [address] Dr. Jordan Blackwell Globulin (S) [Mass/Vol] 3.4 g/dL Normal [facility] Comment on above: Performed By: #### O SMO #### [facility] [address] [place] [address] Dr. Jordan Blackwell Glucose [Mass/Vol] 170 mg/dL Critically high 74-106 [facility] Comment on above: Performed By: #### O SMO #### [facility] [address] [place] [address] Dr. Jordan Blackwell Potassium [Moles/Vol] 3.2 mmol/L Critically low 3.5-5.1 [facility] Comment on above: Performed By: #### O SMO #### [facility] [address] [place] [address] Dr. Jordan Blackwell Protein [Mass/Vol] 6.0 g/dL Critically low 6.4-8.2 [facility] Comment on above: Performed By: #### O SMO #### [facility] [address] [address] [address] Jordan Blackwell Sodium [Moles/Vol] 127 mmol/L Critically low 136-145 [facility] Comment on above: Performed By: #### O SMO #### [facility] [address] [address] [address] Jordan Blackwell Urea nitrogen [Mass/Vol] 15.0 mg/dL Normal 7.0-18.0 [facility] Comment on above: Performed By: #### O SMO #### [facility] [address] [address] [address] Jordan Blackwell Urea nitrogen/Creatinine [Mass ratio] 19.0 mg/mg Normal [facility] Comment on above: Performed By: #### O SMO #### [facility] [address] [place] [address] Dr. Jordan Blackwell SODIUM RANDOM URINEon 2021 UR SODIUM <5 Critically low 30-90 [facility] Comment on above: Performed By: #### C BC #### [facility] [address] [place] [address] Dr. Jordan Blackwell T4on 02-22-2022 T4 [Mass/Vol] 7.10 ug/dL Normal 4.80-13.90 [facility] Comment on above: Performed By: #### U RCX #### [facility] [address] [place] [address] Dr. Jordan Blackwell TSHon 02-22-2022 TSH 1.693 uIU/mL Normal 0.358-3.74 0 [facility] Comment on above: Performed By: #### U RCX #### [facility] [address] [place] [address] Dr. Jordan Blackwell UA RANDOM W/MICROSCOPICon BACTERIA NONE SEEN Normal NONE SEEN [facility] Comment on above: Performed By: #### U RCX #### [facility] [address] [place] [address] Dr. Jordan Blackwell Bilirubin Ql (U) Negative Normal NEGATIVE [facility] Comment on above: Performed By: #### U RCX #### [facility] [address] [address] [address] Jordan Blackwell CAST NONE SEEN Normal NONE SEEN [facility] Comment on above: Performed By: #### U RCX #### [facility] [address] [place] [address] Dr. Jordan Blackwell Clarity (U) CLEAR Normal CLEAR [facility] Comment on above: Performed By: #### U RCX #### [facility] [address] [place] [address] Dr. Jordan Blackwell Color (U) LT. YELLOW Normal YELLOW [facility] Comment on above: Performed By: #### U RCX #### [facility] [address] [place] [address] Dr. Jordan Blackwell Crystals LM Nom (Urine sed) NONE SEEN Normal NONE SEEN [facility] Comment on above: Performed By: #### U RCX #### [facility] [address] [place] [address] Dr. Jordan Blackwell Epithelial cells LM Ql (Urine sed) FEW Abnormal NONE SEEN /RARE [facility] Comment on above: Performed By: #### U RCX #### [facility] [address] [place] [address] Dr. Jordan Blackwell Glucose Ql (U) Negative Normal NEGATIVE [facility] Comment on above: Performed By: #### U RCX #### [facility] [address] [place] [address] Dr. Jordan Blackwell Hemoglobin Ql (U) Negative Normal NEGATIVE [facility] Comment on above: Performed By: #### U RCX #### [facility] [address] [place] [address] Dr. Jordan Blackwell Ketones Ql (U) TRACE Abnormal NEGATIVE [facility] Comment on above: Performed By: #### U RCX #### [facility] [address] [place] [address] Dr. Jordan Blackwell LEUKOCYTES TRACE Abnormal NEGATIVE [facility] Comment on above: Performed By: #### U RCX #### [facility] [address] [address] [address] Jordan Blackwell MUCOUS NONE SEEN Normal NONE SEEN [facility] Comment on above: Performed By: #### U RCX #### [facility] [address] [address] [address] Jordan Blackwell Nitrite Ql (U) Negative Normal NEGATIVE [facility] Comment on above: Performed By: #### U RCX #### [facility] [address] [place] [address] Dr. Jordan Blackwell pH (U) 6.5 [pH] Normal 5-9 [facility] Comment on above: Performed By: #### U RCX #### [facility] [address] [place] [address] Dr. Jordan Blackwell RBC 0-2 Normal 0-2 [facility] Comment on above: Performed By: #### U RCX #### [facility] [address] [place] [address] Dr. Jordan Blackwell SPEC GRAVITY <=1.005 Abnormal 1.005-<=1. 025 [facility] Comment on above: Performed By: #### U RCX #### [facility] [address] [address] [address] Jordan Blackwell UA PROTEIN Negative Normal NEGATIVE/ TRACE [facility] Comment on above: Performed By: #### U RCX #### [facility] [address] [place] [address] Dr. Jordan Blackwell Urobilinogen Qn (U) 0.2 {Claudia'U}/dL Normal 0.2 - 1. 0 [facility] Comment on above: Performed By: #### U RCX #### [facility] [address] [place] [address] Dr. Jordan Blackwell WBC 2-5 Abnormal NONE SEEN [facility] Comment on above: Performed By: #### U RCX #### [facility] [address] [place] [address] Dr. Jordan Blackwell Basic Metabolic Panelon 11 Anion gap [Moles/Vol] 14.5 mmol/L Normal 6.0-15.0 [facility] Comment on above: Performed By: #### C BC, BMP ####[facility] [place] [address] [facility] Calcium [Mass/Vol] 8.9 mg/dL Normal 8.2-10.2 [facility] Comment on above: Result Comment: PERF ORMED BY:[address] [place], [place] [id number] MEDICAL DIRECTORKIMBERLYN SINGER M.D. Performed By: #### C BC, BMP ####[address] [place] [address] [facility] Chloride [Moles/Vol] 87 mmol/L Low 95-114 [facility] Comment on above: Performed By: #### C BC, BMP ####[address] [address] [facility] CO2 [Moles/Vol] 25.4 mmol/L Normal 22.0-30.0 [facility] Comment on above: Performed By: #### C BC, BMP ####[address] [address] [facility] Creatinine [Mass/Vol] 0.98 mg/dL Normal 0.44-1.03 [facility] Comment on above: Performed By: #### C BC, BMP ####[address] [address] [facility] Estimated GFR ( Brenda > 60 [facility] Comment on above: Result Comment: GFR estimated reference range: According to KDOQI guidelines, <60 ml/min/1.73m2 is sufficient to diagnose a patient with chronic kidney disease. Performed By: #### C BC, BMP ####[address] [place] [address] [facility] Estimated GFR (Non- Am 57 [facility] Comment on above: Performed By: #### C BC, BMP ####[facility] [place] [address] [facility] Glucose [Mass/Vol] 191 mg/dL High 70-100 [facility] Comment on above: Result Comment: [place] Glucose Reference Range is dependent on time and content of last meal. Glucose of more than 200 mg/dL in a nonstressed, ambulatory subject supports the diagnosis of Diabetes Mellitus. ADA recommended reference range Performed By: #### C BC, BMP ####[facility] [place] [address] [facility] Potassium [Moles/Vol] 3.9 mmol/L Normal 3.5-5.1 [facility] Comment on above: Performed By: #### C BC, BMP ####[address] [place] [id number] [facility] Sodium [Moles/Vol] 123 mmol/L Off scale low 136-146 [facility] Comment on above: Result Comment: Crit ical value result called at 1558 on 02/20/22 Performed By: #### C BC, BMP ####[address] [place] [address] [facility] Urea nitrogen [Mass/Vol] 18 mg/dL Normal 9-23 [facility] Comment on above: Performed By: #### C BC, BMP ####[id number] [facility] Basophils Auto (Bld) [#/Vol] Ordered By: Asa Napoles on 02-20-2022 Basophils (Bld) [#/Vol] 0.1 10*3/uL 0.0-0.2 [facility] Basophils/100 WBC Auto (Bld) Ordered By: Asa Napoles on 02-20-2022 Basophils/100 WBC (Bld) 0.5 % . [facility] COVID-19 Antigenon 2 COVID-19 Antigen Normal [facility] Comment on above: Performed By: #### C OVID-19 YASMINE, SOFIANEG ####[address] [place] [address] [facility] COVID-19 SOFIAOrdered By: Antoni Napoles on 02-20-2022 SARS-CoV+SARS-CoV-2 (COVID-19) Ag IA.rapid Ql (Resp) Negative Negative [facility] Comment on above: This is a duplicate Yasmine SARS Antigen (FREDERIC) result to be used for statistical tracking purpose only. Complete Blood Count Auto Di ffon 02-20-2022 Basophils (Bld) [#/Vol] 0.1 10*3/uL Normal 0.0-0.2 [facility] Comment on above: Result Comment: PERF ORMED BY:[address] [place], [place] [phone] MEDICAL DIRECTORKIMBERLYN SINGER M.D. Performed By: #### C BC, BMP ####[address] [address] [facility] Basophils/100 WBC (Bld) 0.5 % Normal . [facility] Comment on above: Performed By: #### C BC, BMP ####[address] [address] [facility] Eosinophils (Bld) [#/Vol] 0.1 10*3/uL Normal 0.0-0.45 [facility] Comment on above: Performed By: #### C BC, BMP ####[address] [address] [facility] Eosinophils/100 WBC (Bld) 0.7 % Normal . [facility] Comment on above: Performed By: #### C JORDEN, BMP ####[address] [address] [facility] Erythrocyte distribution width (RBC) [Ratio] 12.9 % Normal 11.9-15.3 [facility] Comment on above: Performed By: #### C BC, BMP ####[address] [address] [facility] Hematocrit (Bld) [Volume fraction] 29.5 % Low 34.0-46.4 [facility] Comment on above: Performed By: #### C BC, BMP ####[address] [address] [facility] Hemoglobin (Bld) [Mass/Vol] 9.8 g/dL Low 11.8-15.4 [facility] Comment on above: Performed By: #### C BC, BMP ####[address] [place] [address] [facility] Lymphocytes (Bld) [#/Vol] 1.6 10*3/uL Normal 1.00-4.8 [facility] Comment on above: Performed By: #### C BC, BMP ####[address] [address] [facility] Lymphocytes/100 WBC (Bld) 11.5 % Normal . [facility] Comment on above: Performed By: #### C JORDEN, BMP ####[address] [address] [facility] MCH (RBC) [Entitic mass] 32.7 pg Normal 24.7-34.3 [facility] Comment on above: Performed By: #### C JORDEN, BMP ####[address] [address] [facility] MCV (RBC) [Entitic vol] 98.2 fL Normal 80-100 [facility] Comment on above: Performed By: #### C JORDEN, BMP ####[id number] [facility] Mean Corpuscular HGB Conc 33.3 g/dL Normal 32.0-35.0 [facility] Comment on above: Performed By: #### C JORDEN, BMP ####[id number] [facility] Monocytes (Bld) [#/Vol] 1.4 10*3/uL High 0.0-0.8 [facility] Comment on above: Performed By: #### C BC, BMP ####[id number] [facility] Monocytes/100 WBC (Bld) 10.0 % Normal . [facility] Comment on above: Performed By: #### C BC, BMP ####[address] [address] [facility] Neutrophils (Bld) [#/Vol] 10.7 10*3/uL High 1.8-7.7 [facility] Comment on above: Performed By: #### C BC, BMP ####[id number] [facility] Neutrophils/100 WBC (Bld) 77.3 % Normal . [facility] Comment on above: Performed By: #### C JORDEN, BMP ####[id number] [facility] Nucleated RBC/100 WBC (Bld) [Ratio] 0.0 % Normal 0-0.5 [facility] Comment on above: Performed By: #### C JORDEN, BMP ####[address] [address] [facility] Platelet mean volume (Bld) [Entitic vol] 8.4 fL Normal 6.3-10.7 [facility] Comment on above: Performed By: #### C JORDEN, BMP ####[id number] [facility] Platelets (Bld) [#/Vol] 255 10*3/uL Normal 150-450 [facility] Comment on above: Performed By: #### C JORDEN, BMP ####[id number] [facility] RBC (Bld) [#/Vol] 3.00 10*6/uL Low 3.60-5.00 [facility] Comment on above: Performed By: #### C JORDEN, BMP ####[address] [address] [facility] WBC (Bld) [#/Vol] 13.9 10*3/uL High 4.5-11.0 [facility] Comment on above: Performed By: #### Diane LEONARDO, BMP ####[id number] [facility] Creatinine and Glomerular fi ltration rate.predicted panel (S/P/Bld)Ordered By: Asa Napoles on 02-20-2022 Creatinine [Mass/Vol] 0.98 mg/dL 0.44-1.03 [facility] Eosinophils Auto (Bld) [#/Vo l]Ordered By: Asa Napoles on 02-20-2022 Eosinophils (Bld) [#/Vol] 0.1 10*3/uL 0.0-0.45 [facility] Eosinophils/100 WBC Auto (Bl d)Ordered By: Asa Napoles on 02-20-2022 Eosinophils/100 WBC (Bld) 0.7 % . [facility] Erythrocyte distribution wid th Auto (RBC) [Ratio]Ordered By: Asa Napoles on 02-20-2022 Erythrocyte distribution width (RBC) [Ratio] 12.9 % 11.9-15.3 [facility] Estimated glomerular filtrat ion rate (GFR) non- AmericanOrdered By: Asa Napoles on 02-20-2022 GFR/1.73 sq M.predicted among non-blacks MDRD (S/P/Bld) [Vol rate/Area] 57 mL/Min [facility] Hematocrit Auto (Bld) [Volum e fraction]Ordered By: Asa Napoles on 02-20-2022 Hematocrit (Bld) [Volume fraction] 29.5 % 34.0-46.4 [facility] Hemoglobin [Mass/volume] in BloodOrdered By: Asa Napoles on 02-20-2022 Hemoglobin (Bld) [Mass/Vol] 9.8 g/dL 11.8-15.4 [facility] - Hematology and Cell countsOrdered By: Asa Napoles on 02-20-2022 Nucleated RBC/100 WBC (Bld) [Ratio] 0.0 % 0-0.5 [facility] Leukocytes [#/volume] in Blo od by Automated countOrdered By: Asa Napoles on 02-20-2022 WBC (Bld) [#/Vol] 13.9 10*3/uL 4.5-11.0 [facility] Lymphocytes Auto (Bld) [#/Vo l]Ordered By: Asa Napoles on 02-20-2022 Lymphocytes (Bld) [#/Vol] 1.6 10*3/uL 1.00-4.8 [facility] Lymphocytes/100 WBC Auto (Bl d)Ordered By: Asa Napoles on 02-20-2022 Lymphocytes/100 WBC (Bld) 11.5 % . [facility] MCH Auto (RBC) [Entitic mass ]Ordered By: Asa Napoles on 02-20-2022 MCH (RBC) [Entitic mass] 32.7 pg 24.7-34.3 [facility] MCHC Auto (RBC) [Mass/Vol]Or dered By: Asa Napoles on 02-20-2022 MCHC (RBC) [Mass/Vol] 33.3 g/dL 32.0-35.0 [facility] MCV Auto (RBC) [Entitic vol] Ordered By: Asa Napoles on 02-20-2022 MCV (RBC) [Entitic vol] 98.2 fL 80-100 [facility] Monocytes Auto (Bld) [#/Vol] Ordered By: Asa Napoles on 02-20-2022 Monocytes (Bld) [#/Vol] 1.4 10*3/uL 0.0-0.8 [facility] Monocytes/100 WBC Auto (Bld) Ordered By: Asa Napoles on 02-20-2022 Monocytes/100 WBC (Bld) 10.0 % . [facility] Neutrophils Auto (Bld) [#/Vo l]Ordered By: Asa Napoles on 02-20-2022 Neutrophils (Bld) [#/Vol] 10.7 10*3/uL 1.8-7.7 [facility] Neutrophils/100 WBC Auto (Bl d)Ordered By: Asa Napoles on 02-20-2022 Neutrophils/100 WBC (Bld) 77.3 % . [facility] No Panel InformationOrdered By: Asa Napoles on 02-20-2022 Estimated GFR () > 60 mL/Min [facility] Comment on above: GFR estimated refere nce range: According to KDOQI guidelines, <60 ml/min/1.73m2 is sufficient to diagnose a patient with chronic kidney disease. Pharmacy Creatinine Clearance (Chem N/A [facility] SARS Antigen (LFIA) [facility] SARS Antigen (LFIA) [facility] Platelet mean volume Auto (B ld) [Entitic vol]Ordered By: Asa Napoles on 02-20-2022 Platelet mean volume (Bld) [Entitic vol] 8.4 fL 6.3-10.7 [facility] Platelets Auto (Bld) [#/Vol] Ordered By: Asa Napoles on 02-20-2022 Platelets (Bld) [#/Vol] 255 10*3/uL 150-450 [facility] RBC Auto (Bld) [#/Vol]Ordere d By: Asa Napoles on 02-20-2022 RBC (Bld) [#/Vol] 3.00 10*6/uL 3.60-5.00 [facility] Serum or plasma anion gap de terminationOrdered By: Asa Napoles on 02-20-2022 Anion gap [Moles/Vol] 14.5 mmol/L 6.0-15.0 [facility] Serum or plasma calcium john urement (mass/volume)Ordered By: Asa Napoles on 02-20-2022 Calcium [Mass/Vol] 8.9 mg/dL 8.2-10.2 [facility] Serum or plasma chloride tressa surement (moles/volume)Ordered By: Asa Napoles on 02-20-2022 Chloride [Moles/Vol] 87 mmol/L 95-114 [facility] Serum or plasma glucose john urement (mass/volume)Ordered By: Asa Napoles on 02-20-2022 Glucose [Mass/Vol] 191 mg/dL 70-100 [facility] Comment on above: ADA recommended refe rence rangeRandom Glucose Reference Range is dependent on time and content of last meal. Glucose of more than 200 mg/dL in a nonstressed, ambulatory subject supports the diagnosis of Diabetes Mellitus. Serum or plasma potassium me asurement (moles/volume)Ordered By: Asa Napoles on 02-20-2022 Potassium [Moles/Vol] 3.9 mmol/L 3.5-5.1 [facility] Serum or plasma sodium measu rement (moles/volume)Ordered By: Asa Napoels on 02-20-2022 Sodium [Moles/Vol] 123 mmol/L 136-146 [facility] Comment on above: Critical valueresult calledat 1558 on 02/20/22 Serum or plasma total carbon dioxide measurement (moles/volume)Ordered By: Asa Napoles on 02-20-2022 CO2 [Moles/Vol] 25.4 mmol/L 22.0-30.0 [facility] Serum or plasma urea nitroge n measurement (mass/volume)Ordered By: Asa Napoles on 02-20-2022 Urea nitrogen [Mass/Vol] 18 mg/dL 12-29 [facility] Yasmine Ag Negativeon 02-21-20 22 Yasmine Ag Negative Negative Normal Negative [facility] Comment on above: Result Comment: This is a duplicate Yasmine SARS Antigen (FREDERIC) result to be used for statistical tracking purpose only.PERFORMED BY:[facility] [place], [place] [id number] MEDICAL DIRECTORKIMBERLYN SINGER M.D. Performed By: #### C OVID-19 YASMINE, SOFIANEG ####[facility] [place] [address] [facility] XR SHOULDER LT 2V or >on XR SHOULDER LT 2V or > EXAM: XR SHOULDER LT 2V or > INDICATION: Unspecified fall. COMPARISON: None. TECHNIQUE: Left shoulder, 3 views. FINDINGS: Comminuted impacted and mildly displaced fracture of the left femoral neck. Intact glenohumeral and acromioclavicular joints. Marked overlying soft tissue swelling. IMPRESSION: Mildly displaced and impacted left humeral neck fracture. Electronically authenticated by: KATIE SOTO Date: 2022-02-17 13:48 Normal [facility] CT CHEST W CONon 01-12-2022 CT CHEST W CON CT CHEST W CON: 01/11 9:38 PM EDT CLINICAL HISTORY: 66 years old Female with left-sided chest pain after fall. TECHNIQUE: CT CHEST W CON was performed with axial CT images through the thorax as well as sagittal and coronal reformations also obtained after intravenous administration of intravenous contrast. Dose reduction techniques were achieved by using automated exposure control and/or adjustment of mA and/or kV according to patient size and/or use of iterative reconstruction technique. COMPARISON: Chest x-ray 06/30/2020. FINDINGS: The thoracic aorta is normal in course and caliber without aneurysm or dissection. The heart appears normal with no evidence of pericardial effusion. Coronary artery calcifications are present. There are no enlarged mediastinal lymph nodes. The tracheobronchial tree is patent. Dependent atelectasis The lungs are otherwise clear. There is no consolidation, mass or pleural effusion. There is no pneumothorax. The visualized portion of the upper abdomen is grossly unremarkable. Osseous structures:Anterior right third rib fracture deformity likely subacute is present at the costochondral junction. Mild compression deformity T7 vertebral body with associated large Schmorl's node at the inferior endplate senescent changes of the spine with anterior osteophytic spurring is present. IMPRESSION: 1. Anterior right likely subacute. Rib fracture at the costochondral junction. 2. Compression fracture T7 with associated large Schmorl's node at the inferior plate the liver to be chronic; however no prior imaging is available for comparison. Correlation for point tenderness is recommended. 3. Coronary artery atherosclerosis. 4. Dependent atelectasis. The lungs are otherwise clear. Electronically authenticated by: KAEL DUVAL Date: 2022-01-11 23:14 Normal [facility] CT CSPINE WO CONon CT CSPINE WO CON CT CERVICAL SPINE WI THOUT CONTRAST HISTORY: Pain. COMPARISON: None available. TECHNIQUE: Helical CT images were performed of the cervical spine without intravenous contrast. Dose reduction techniques were achieved by using automated exposure control and/or adjustment of mA and/or kV according to patient size and/or use of iterative reconstruction technique. FINDINGS: STATISTICS MANAGER RADIOGRAPH: Unremarkable. MINERALIZATION: Normal. CRANIOCERVICAL AND ATLANTOAXIAL ARTICULATIONS: Intact with no traumatic subluxation. Mild degenerative changes. VERTEBRAL BODIES: Age indeterminate compression deformity of the C7 vertebral body with mild/moderate loss of height. DISC SPACES: Normal. ALIGNMENT: Normal. POSTERIOR ELEMENTS: Intact. There is mild multilevel facet arthropathy. ODONTOID PROCESS: Intact. VISUALIZED SKULL BASE: Unremarkable. SPINAL CANAL/NEURAL FORAMEN: Mild multilevel degenerative changes are present, without critical osseous spinal canal or neural foraminal stenosis. UPPER THORAX: Unremarkable. SOFT TISSUES OF THE NECK: Unremarkable. IMPRESSION: 1. Age indeterminate compression deformity of the C7 vertebral body with mild/moderate loss of height. No traumatic malalignment. 2. Mild cervical spondylosis as described. Electronically authenticated by: ZAINAB RICHARDS Date: 2022-01-11 23:08 Normal [facility] CT FACIAL BONES WO CONon CT FACIAL BONES WO CON Study: CT HEAD WO CON, CT FACIAL BONES WO CON HISTORY: Pain; frontal headache; laceration the lateral left eye Technique: CT images of the head were acquired without intravenous contrast. Dose reduction technique used: Automatic exposure control and/or adjustment of the mA and/or kV according to patient size and/or use of degenerative reconstruction technique. Comparisons: None. Findings: BRAIN PARENCHYMA: No acute hemorrhage. No mass effect or herniation. No territorial loss of chavira-white differentiation. White matter is within normal limits for age. The sellar contents appear normal. VENTRICLE/EXTRA-AXIAL SPACES: No hydrocephalus or extra-axial fluid collections. EXTRACRANIAL STRUCTURES: No destructive osseous lesion. Left face and left periorbital induration/contusion without associated facial fracture. Mastoids are clear. ORBITS: Yocha Dehe lenses are surgically absent. PARANASAL SINUSES: Trace left greater than right maxillary sinus mucosal thickening IMPRESSION: 1. Soft tissue contusions of the left face and left lateral periorbital region. No facial fracture. 2. No acute intracranial abnormality. Electronically authenticated by: PETROS WELLS Date: 2022-01-11 23:04 Normal [facility] DRUG SCREEN RAPID (URINE)on 01-12-2022 AMP Negative Normal NEGATIVE [facility] Comment on above: Performed By: #### U RCX #### [facility] [address] [place] [address] Dr. Jordan Blackwell BAR Negative Normal NEGATIVE [facility] Comment on above: Performed By: #### U RCX #### [facility] [address] [place] [address] Dr. Jordan Blackwell BUP Negative Normal NEGATIVE [facility] Comment on above: Performed By: #### U RCX #### [facility] [address] [place] [address] Dr. Jordan Blackwell BZO Negative Normal NEGATIVE [facility] Comment on above: Performed By: #### U RCX #### [facility] [address] [place] [address] Dr. Jordan Blackwell DARREN Negative Normal NEGATIVE [facility] Comment on above: Performed By: #### U RCX #### [facility] [address] [place] [address] Dr. Jordan Blackwell CUT-OFFS SEE BELOW Normal [facility] Comment on above: Result Comment: AMP (Amphetamine): 500ng/mL, BAR (Barbituates): 200 ng/mL, BZO (Benzodiazepines): 150 ng/mL, BUP (Buprenorphine): 10 ng/mL, DARREN (Cocaine): 150 ng/mL, mAMP (Methamphetamine): 500 ng/mL, MTD (Methadone): 200 ng/mL, OPI (Opiates): 100 ng/mL, OXY (Oxycodone): 100 ng/mL, PCP (Phencyclidine): 25 ng/mL, PPX (Propoxyphene): 300 ng/mL, THC (Cannabinoids): 50 ng/mL, TCA (Trycyclic Antidepressants): 300 ng/mL Performed By: #### U RCX #### [facility] [address] [place] [address] Dr. Jordan Blackwell DRUG CUT HEADER DRUG CLASS TEST SYST EM CUT-OFF CONCENTRATIONS ARE FOLLOWS: Normal [facility] Comment on above: Performed By: #### U RCX #### [facility] [address] [place] [address] Dr. Jordan Blackwell mAMP Negative Normal NEGATIVE [facility] Comment on above: Performed By: #### U RCX #### [facility] [address] [place] [address] Dr. Jordan Blackwell MTD Negative Normal NEGATIVE [facility] Comment on above: Performed By: #### U RCX #### [facility] [address] [place] [address] Dr. Jordan Blackwell OPI Negative Normal NEGATIVE [facility] Comment on above: Performed By: #### U RCX #### [facility] [address] [place] [address] Dr. Jordan Blackwell OXY Negative Normal NEGATIVE [facility] Comment on above: Performed By: #### U RCX #### [facility] [address] [place] [address] Dr. Jordan Blackwell PCP Negative Normal NEGATIVE [facility] Comment on above: Performed By: #### U RCX #### [facility] [address] [place] [address] Dr. Jordan Blackwell PPX Negative Normal NEGATIVE [facility] Comment on above: Performed By: #### U RCX #### [facility] [address] [place] [address] Dr. Jordan Blackwell TCA Positive Abnormal NEGATIVE [facility] Comment on above: Performed By: #### U RCX #### [facility] [address] [place] [address] Dr. Jordan Blackwell THC Positive Abnormal NEGATIVE [facility] Comment on above: Performed By: #### U RCX #### [facility] [address] [address] [address] Jordan Blackwell ER URINE PROFILEon 2 Bilirubin Ql (U) Negative Normal NEGATIVE [facility] Comment on above: Performed By: #### U AMIC #### [facility] [address] [place] [address] Dr. Jordan Blackwell Clarity (U) CLEAR Normal CLEAR [facility] Comment on above: Performed By: #### U AMIC #### [facility] [address] [place] [address] Dr. Jordan Blackwell Color (U) LT. YELLOW Normal YELLOW [facility] Comment on above: Performed By: #### U AMIC #### [facility] [address] [place] [address] Dr. Jordan Blackwell ERUAHD A micrscopic examina tion will be performed if indicated. Normal [facility] Comment on above: Performed By: #### U AMIC #### [facility] [address] [place] [address] Dr. Jordan Blackwell Glucose Ql (U) Negative Normal NEGATIVE [facility] Comment on above: Performed By: #### U AMIC #### [facility] [address] [place] [address] Dr. Jordan Blackwell Hemoglobin Ql (U) TRACE-INTACT Abnormal NEGATIVE [facility] Comment on above: Performed By: #### U AMIC #### [facility] [address] [place] [address] Dr. Jordan Blackwell Ketones Ql (U) Negative Normal NEGATIVE [facility] Comment on above: Performed By: #### U AMIC #### [facility] [address] [place] [address] Dr. Jordan Blackwell LEUKOCYTES MODERATE Abnormal NEGATIVE [facility] Comment on above: Performed By: #### U AMIC #### [facility] [address] [place] [address] Dr. Jordan Blackwell Nitrite Ql (U) Negative Normal NEGATIVE [facility] Comment on above: Performed By: #### U AMIC #### [facility] [address] [place] [address] Dr. Jordan Blackwell pH (U) 6.0 [pH] Normal 5-9 [facility] Comment on above: Performed By: #### U AMIC #### [facility] [address] [place] [address] Dr. Jordan Blackwell SPEC GRAVITY <=1.005 Abnormal 1.005-<=1. 025 [facility] Comment on above: Performed By: #### U AMIC #### [facility] [address] [place] [address] Dr. Jordan Blackwell UA PROTEIN Negative Normal NEGATIVE/ TRACE [facility] Comment on above: Performed By: #### U AMIC #### [facility] [address] [place] [address] Dr. Jordan Blackwell UR MICRO IND INDICATED Normal [facility] Comment on above: Performed By: #### U AMIC #### [facility] [address] [place] [address] Dr. Jordan Blackwell Urobilinogen Qn (U) 0.2 {Claudia'U}/dL Normal 0.2 - 1. 0 [facility] Comment on above: Performed By: #### U AMIC #### [facility] [address] [place] [address] Dr. Jordan Blackwell URINE MICROSCOPIC ONLYon BACTERIA TRACE Abnormal NONE SEEN [facility] Comment on above: Performed By: #### C BC #### [facility] [address] [place] [address] Dr. Jordan Blackwell Bacteria identified Cx Nom (U) NOT INDICATED Normal [facility] Comment on above: Performed By: #### C BC #### [facility] [address] [place] [address] Dr. Jordan Blackwell CAST NONE SEEN Normal NONE SEEN [facility] Comment on above: Performed By: #### C BC #### [facility] [address] [place] [address] Dr. Jordan Blackwell Crystals LM Nom (Urine sed) NONE SEEN Normal NONE SEEN [facility] Comment on above: Performed By: #### C BC #### [facility] [address] [place] [address] Dr. Jordan Blackwell Epithelial cells LM Ql (Urine sed) RARE Normal NONE SEEN /RARE [facility] Comment on above: Performed By: #### C BC #### [facility] [address] [place] [address] Dr. Jordan Blackwell MUCOUS NONE SEEN Normal NONE SEEN [facility] Comment on above: Performed By: #### C BC #### [facility] [address] [place] [address] Dr. Jordan Blackwell RBC NONE SEEN Abnormal 0-2 [facility] Comment on above: Performed By: #### C BC #### [facility] [address] [place] [address] Dr. Jordan Blackwell WBC 0-2 Abnormal NONE SEEN [facility] Comment on above: Performed By: #### C BC #### [facility] [address] [place] [address] Dr. Jordan Blackwell CBC AUTO DIFFon 01-11-2022 BASO # 0.0 103/ul Normal 0.0-0.1 [facility] Comment on above: Performed By: #### U AMIC #### [facility] [address] [place] [address] Dr. Jordan Blackwell Basophils/100 WBC (Bld) 0.4 % Normal 0.2-2.0 [facility] Comment on above: Performed By: #### U AMIC #### [facility] [address] [place] [address] Dr. Jordan Blackwell EO # 0.1 103/ul Normal 0.0-0.7 [facility] Comment on above: Performed By: #### U AMIC #### [facility] [address] [place] [address] Dr. Jordan Blackwell Eosinophils/100 WBC (Bld) 1.3 % Normal 0.9-7.0 [facility] Comment on above: Performed By: #### U AMIC #### [facility] [address] [place] [address] Dr. Jordan Blackwell Erythrocyte distribution width (RBC) [Ratio] 12.7 % Normal 11.0-15.0 [facility] Comment on above: Performed By: #### U AMIC #### [facility] [address] [address] [address] Jordan Blackwell Hematocrit (Bld) [Volume fraction] 31.8 % Critically low 36.0-48.0 [facility] Comment on above: Performed By: #### U AMIC #### [facility] [address] [place] [address] Dr. Jordan Blackwell Hemoglobin (Bld) [Mass/Vol] 10.7 g/dL Critically low 12.0-16.0 [facility] Comment on above: Performed By: #### U AMIC #### [facility] [address] [place] [address] Dr. Jordan Blackwell IG # 0.09 10e3/ul Critically high 0.00-0.03 [facility] Comment on above: Performed By: #### U AMIC #### [facility] [address] [place] [address] Dr. Jordan Blackwell IG % 1.3 % Critically high 0.0-0.5 [facility] Comment on above: Performed By: #### U AMIC #### [facility] [address] [place] [address] Dr. Jordan Blackwell LYMPH # 2.5 103/ul Normal 1.2-3.8 [facility] Comment on above: Performed By: #### U AMIC #### [facility] [address] [place] [address] Dr. Jordan Blackwell Lymphocytes/100 WBC (Bld) 36.0 % Normal 20.5-60.0 [facility] Comment on above: Performed By: #### U AMIC #### [facility] [address] [place] [address] Dr. Jordan Blackwell MANUAL DIFF REQ NO Normal [facility] Comment on above: Performed By: #### U AMIC #### [facility] [address] [place] [address] Dr. Jordan Blackwell MCH (RBC) [Entitic mass] 33.4 pg Normal 26.7-34.0 [facility] Comment on above: Performed By: #### U AMIC #### [facility] [address] [place] [address] Dr. Jordan Blackwell MCHC (RBC) [Mass/Vol] 33.6 g/dL Normal 29.9-35.2 [facility] Comment on above: Performed By: #### U AMIC #### [facility] [address] [place] [address] Dr. Jordan Blackwell MCV (RBC) [Entitic vol] 99.4 fL Critically high 81.0-99 .0 [facility] Comment on above: Performed By: #### U AMIC #### [facility] [address] [place] [address] Dr. Jordan Blackwell MONO # 0.5 103/ul Normal 0.3-0.8 [facility] Comment on above: Performed By: #### U AMIC #### [facility] [address] [place] [address] Dr. Jordan Blackwell Monocytes/100 WBC (Bld) 7.6 % Normal 1.7-12.0 [facility] Comment on above: Performed By: #### U AMIC #### [facility] [address] [place] [address] Dr. Jordan Blackwell NEUT # 3.7 103/ul Normal 1.4-6.5 [facility] Comment on above: Performed By: #### U AMIC #### [facility] [address] [place] [address] Dr. Jordan Blackwell Neutrophils/100 WBC (Bld) 53.4 % Normal 43.0-75.0 [facility] Comment on above: Performed By: #### U AMIC #### [facility] [address] [place] [address] Dr. Jordan Blackwell Platelet mean volume (Bld) [Entitic vol] 9.6 fL Normal 9.5-13.5 [facility] Comment on above: Performed By: #### U AMIC #### [facility] [address] [address] [address] Jordan Blackwell PLT 186 103/ul Normal 150-450 [facility] Comment on above: Performed By: #### U AMIC #### [facility] [address] [address] [address] Jordan Blackwell RBC 3.20 106/ul Critically low 4.20-5.40 [facility] Comment on above: Performed By: #### U AMIC #### [facility] [address] [address] [address] Jordan Blackwell WBC 7.0 103/ul Normal 4.0-11.0 [facility] Comment on above: Performed By: #### U AMIC #### [facility] [address] [address] [address] Jordan Blackwell ETHANOL (BLD ALC)on 01-12-20 22 ALC NOTE NOTE: 80 mg/dl is [facility] legal limit for a blood alcohol level Normal [facility] Comment on above: Performed By: #### U RCX #### [facility] [address] [place] [address] Dr. Jordan Blackwell Ethanol [Mass/Vol] 21 mg/dL Normal [facility] Comment on above: Performed By: #### U RCX #### [facility] [address] [place] [address] Dr. Jordan Blackwell POINT OF CARE GLUCOSEon Glucose [Mass/Vol] 165 mg/dL Critically high 74-106 T [facility] Comment on above: Performed By: #### P OCGLUC ####[facility] [address] [address] Jordan Blackwell PROF 14(COMP METB)on 022 Albumin [Mass/Vol] 3.3 g/dL Critically low 3.4-5.0 [facility] Comment on above: Performed By: #### U RCX #### [facility] [address] [address] [address] Jordan Blackwell Albumin/Globulin [Mass ratio] 1.0 {ratio} Normal [facility] Comment on above: Performed By: #### U RCX #### [facility] [address] [address] [address] Jordan Blackwell ALP [Catalytic activity/Vol] 85 U/L Normal 46-116 [facility] Comment on above: Performed By: #### U RCX #### [facility] [address] [address] [address] Jordan Blackwell ALT [Catalytic activity/Vol] 22 U/L Normal 14-59 [facility] Comment on above: Performed By: #### U RCX #### [facility] [address] [place] [address] Dr. Jordan Blackwell Anion gap [Moles/Vol] 17.3 mmol/L Normal [facility] Comment on above: Performed By: #### U RCX #### [facility] [address] [place] [address] Dr. Jordan Blackwell AST [Catalytic activity/Vol] 18 U/L Normal 15-37 [facility] Comment on above: Performed By: #### U RCX #### [facility] [address] [place] [address] Dr. Jordan Blackwell Bilirubin [Mass/Vol] 0.3 mg/dL Normal 0.2-1.0 [facility] Comment on above: Performed By: #### U RCX #### [facility] [address] [place] [address] Dr. Jordan Blackwell Calcium [Mass/Vol] 8.0 mg/dL Critically low 8.5-10.1 [facility] Comment on above: Performed By: #### U RCX #### [facility] [address] [place] [address] Dr. Jordan Blackwell Chloride [Moles/Vol] 92 mmol/L Critically low 98-107 [facility] Comment on above: Performed By: #### U RCX #### [facility] [address] [address] [address] Jordan Blackwell CO2 [Moles/Vol] 19.9 mmol/L Critically low 21.0-32.0 [facility] Comment on above: Performed By: #### U RCX #### [facility] [address] [address] [address] Jordan Blackwell Creatinine [Mass/Vol] 0.98 mg/dL Normal 0.55-1.02 [facility] Comment on above: Performed By: #### U RCX #### [facility] [address] [address] [address] Jordan Blackwell EGFR-AF FRENCH >69 Normal >=60 [facility] Comment on above: Performed By: #### U RCX #### [facility] [address] [address] [address] Jordan Blackwell EGFR-NON AF FRENCH 57 mL/min/1.73m2 Critically low >=60 [facility] Comment on above: Performed By: #### U RCX #### [facility] [address] [address] [address] Jordan Blackwell Globulin (S) [Mass/Vol] 3.2 g/dL Normal [facility] Comment on above: Performed By: #### U RCX #### [facility] [address] [address] [address] Jordan Blackwell Glucose [Mass/Vol] 177 mg/dL Critically high 74-106 [facility] Comment on above: Performed By: #### U RCX #### [facility] [address] [address] [address] Jordan Blackwell Potassium [Moles/Vol] 3.2 mmol/L Critically low 3.5-5.1 [facility] Comment on above: Performed By: #### U RCX #### [facility] [address] [address] [address] Jordan Blackwell Protein [Mass/Vol] 6.5 g/dL Normal 6.4-8.2 [facility] Comment on above: Performed By: #### U RCX #### [facility] [address] [address] [address] Jordan Blackwell Sodium [Moles/Vol] 126 mmol/L Critically low 136-145 [facility] Comment on above: Performed By: #### U RCX #### [facility] [address] [address] [address] Jordan Blackwell Urea nitrogen [Mass/Vol] 11.0 mg/dL Normal 7.0-18.0 [facility] Comment on above: Performed By: #### U RCX #### [facility] [address] [address] [address] Jordan Blackwell Urea nitrogen/Creatinine [Mass ratio] 11.2 mg/mg Normal [facility] Comment on above: Performed By: #### U RCX #### [facility] [address] [place] [address] Dr. Jordan Blackwell Vital Signs Date Time Vital Sign Value Performing Clinician Facility 05-09-2022 15:07-0500 Blood Pressure Location Zainab BURNS [facility] 05-09-2022 15:07-0500 Diastolic blood pressure 62 mm[Hg] Zainab BURNS [facility] 05-09-2022 15:07-0500 Heart rate 76 /min Zainab BURNS [facility] 05-09-2022 15:07-0500 Respiratory rate 16 /min Zainab BURNS [facility] 05-09-2022 15:07-0500 Systolic blood pressure 120 mm[Hg] Zainab BURNS [facility] 03-27-2022 06:01-0500 Body temperature 97.6 [degF] MD Ash Bernstein Work Phone: [facility] 03-27-2022 06:01-0500 Diastolic blood pressure 55 mm[Hg] MD Ash Bernstein Work Phone: [facility] 03-27-2022 06:01-0500 Heart rate 92 /min MD Ash Bernstein Work Phone: [facility] 03-27-2022 06:01-0500 Respiratory rate 17 /min MD Ash Bernstein Work Phone: [facility] 03-27-2022 06:01-0500 SaO2% (BldA) [Mass fraction] 98 % MD Ash Bernstein Work Phone: [facility] 03-27-2022 06:01-0500 Systolic blood pressure 129 mm[Hg] MD Ash Bernstein Work Phone: [facility] 03-25-2022 05:13-0500 Body weight 95.8 kg MD Ash Bernstein Work Phone: [facility] 03-20-2022 10:40-0500 Body height 172.72 cm MD Ash Bernstein Work Phone: [facility] 03-19-2022 12:00-0500 Body temperature 98 [degF] MD Ash Bernstein Work Phone: [facility] 03-19-2022 12:00-0500 Diastolic blood pressure 73 mm[Hg] MD Ash Bernstein Work Phone: [facility] 03-19-2022 12:00-0500 Heart rate 103 /min MD Ash Bernstein Work Phone: [facility] 03-19-2022 12:00-0500 Respiratory rate 20 /min MD Ash Bernstein Work Phone: [facility] 03-19-2022 12:00-0500 SaO2% (BldA) [Mass fraction] 98 % MD Ash Bernstein Work Phone: [facility] 03-19-2022 12:00-0500 Systolic blood pressure 115 mm[Hg] MD Ash Bernstein Work Phone: [facility] 03-19-2022 06:00-0500 Body weight 96.5 kg MD Ash Bernstein Work Phone: [facility] 03-15-2022 13:58-0500 Body height 157.48 cm MD Ash Bernstein Work Phone: [facility] 03-09-2022 11:00-0500 Inhaled oxygen flow rate 2 L/min MD Ash Bernstein Work Phone: [facility] 03-08-2022 17:52-0500 Body temperature 100.8 [degF] MD Ash Bernstein Work Phone: [facility] 03-08-2022 17:52-0500 Diastolic blood pressure 86 mm[Hg] MD Ash Bernstein Work Phone: [facility] 03-08-2022 17:52-0500 Heart rate 121 /min MD Ash Bernstein Work Phone: [facility] 03-08-2022 17:52-0500 Respiratory rate 22 /min MD Ash Bernstein Work Phone: [facility] 03-08-2022 17:52-0500 SaO2% (BldA) [Mass fraction] 97 % MD Ash Bernstein Work Phone: [facility] 03-08-2022 17:52-0500 Systolic blood pressure 192 mm[Hg] MD Ash Bernstein Work Phone: [facility] 03-08-2022 13:08-0500 Body height 172.72 cm MD Ash Bernstein Work Phone: [facility] 03-08-2022 13:08-0500 Body weight 96.3 kg MD Ash Bernstein Work Phone: [facility] 03-07-2022 11:42-0500 Body temperature 97.9 [degF] MD Ash Bernstein Work Phone: [facility] 03-07-2022 11:42-0500 Diastolic blood pressure 77 mm[Hg] MD Ash Bernstein Work Phone: [facility] 03-07-2022 11:42-0500 Heart rate 112 /min MD Ash Bernstein Work Phone: [facility] 03-07-2022 11:42-0500 Respiratory rate 18 /min MD Ash Bernstein Work Phone: [facility] 03-07-2022 11:42-0500 SaO2% (BldA) [Mass fraction] 96 % MD Ahs Bernstein Work Phone: [facility] 03-07-2022 11:42-0500 Systolic blood pressure 183 mm[Hg] MD Ash Bernstein Work Phone: [facility] 03-07-2022 06:00-0500 Body weight 105.1 kg MD Ash Bernstein Work Phone: [facility] 03-07-2022 04:00-0500 Inhaled oxygen flow rate 10 L/min MD Ash Bernstein Work Phone: [facility] 03-06-2022 15:16-0500 Body height 172.72 cm MD Ash Bernstein Work Phone: [facility] 03-06-2022 15:16-0500 Body mass index (BMI) [Ratio] 32.6 kg/m2 MD Ash Bernstein Work Phone: [facility] 02-20-2022 13:34-0500 Body height 172.72 cm MD Ash Bernstein Work Phone: [facility] 02-20-2022 13:34-0500 Body temperature 97.8 [degF] MD Ash Bernstein Work Phone: [facility] 02-20-2022 13:34-0500 Body weight 99 kg MD Ash Bernstein Work Phone: [facility] 02-20-2022 13:34-0500 Diastolic blood pressure 67 mm[Hg] MD Ash Bernstein Work Phone: [facility] 02-20-2022 13:34-0500 Heart rate 92 /min MD Ash Bernstein Work Phone: [facility] 02-20-2022 13:34-0500 Respiratory rate 16 /min MD Ash Bernstein Work Phone: [facility] 02-20-2022 [id number] SaO2% (BldA) [Mass fraction] 98 % MD Ash Bernstein Work Phone: [facility] 02-20-2022 [id number] Systolic blood pressure 168 mm[Hg] MD Ash Bernstein Work Phone: [facility] Encounters Encounter Date Encounter Type Care Provider Facility Start: 07-24-2022 ambulatory TOMMY MARQUIS Facilit y:[facility] Start: 07-04-2022 End: 07-05-[address] ASH BERNSTEIN . Facility:[facility] Start: 06-30-2022 End: 07-01-[address] ASH BERNSTEIN . Facility:[facility] Start: 06-25-2022 Office outpatient visit 15 minutes [facility] Start: 06-25-2022 End: 06-25-2022 ambulatory Ash Bernstein Facility:[facility] Start: 06-25-2022 End: 06-25-2022 ambulatory MD Ash Bernstein Work Phone: [facility] Work Phone: Start: 06-25-2022 End: 06-25-2022 Patient encounter procedure MD Ash Bernstein Work Phone: [facility] Start: 06-15-2022 End: 06-16-2022 ambulatory Zainab BURNS Facility:[facility] Start: 06-15-2022 End: 06-15-2022 Patient encounter procedure Zainab BURNS [facility] Start: 06-06-2022 End: 06-07-2022 ambulatory Zainab BURNS Facility:[id number] Start: 06-01-2022 End: 06-02-[address] ASH BERNSTEIN . Facility:[facility] Start: 05-17-2022 End: 05-18-[address] ASH BERNSTEIN . Facility:[facility] Start: 05-11-2022 End: 07-10-[address] ASH BERNSTEIN . Facility:[facility] Start: 05-10-2022 Postop follow up vis it related to original px Asa Napoles [facility] Start: 05-10-2022 End: 05-10-2022 ambulatory Ash Bernstein [facility] Other Start: 05-10-2022 End: 05-10-2022 Patient encounter procedure MD Ash Bernstein Work Phone: [facility] Start: 05-09-2022 End: 05-10-2022 ambulatory Zainab BURNS Facility:[facility] Start: 05-09-2022 End: 05-09-2022 Patient encounter procedure Zainab BURNS General Surgery [facility] Start: 05-02-2022 End: 05-03-[address] ASH BERNSTEIN . Facility:[facility] Start: 05-01-2022 ambulatory Zainab BURNS Facility:[facility] Start: 05-01-2022 End: 05-02-[address] ASH BERNSTEIN . Facility:[facility] Start: 04-27-2022 End: 04-27-[address] ASH BERNSTEIN . Facility:[facility] Start: 04-26-2022 End: 04-27-[address] ASH BERNSTEIN . Facility:[facility] Start: 04-18-2022 End: 04-18-2022 ambulatory Asa Napoles Other [employer] Other Start: 04-18-2022 Telephone encounter Asa Napoles [facility] Start: 04-09-[address] ASH BERNSTEIN . Facili ty:[facility] Start: 03-26-2022 End: 03-26-2022 ambulatory Asa Napoles Other [employer] Other Start: 03-26-2022 Telephone encounter Asa Liuxa [facility] Start: 03-19-2022 End: 03-27-2022 Evaluation and management of inpatient Vanessaaltagracia Garcia Facility:[facility] Start: 03-19-2022 End: 03-27-2022 Evaluation and management of inpatient MD Ash Bernstein Work Phone: [facility] Start: 03-12-2022 ambulatory Facility:[id number] Start: 03-08-2022 End: 03-19-2022 Evaluation and management of inpatient Ash Bernstein Facility:[facility] Start: 03-08-2022 End: 03-19-2022 Evaluation and management of inpatient MD Ash Bernstein Work Phone: [facility] Start: 03-06-2022 End: 03-07-2022 ambulatory Asa Napoles Facility:[facility] Start: 03-06-2022 Telephone encounter Asa Napoles [facility] Start: 03-06-2022 End: 03-07-2022 Admission to same day surgery center MD Ash Bernstein Work Phone: [facility] [place] Start: 03-06-2022 End: 03-07-2022 ambulatory MD Ash Bernstein Work Phone: [facility] Work Phone: Start: 03-05-2022 End: 03-05-2022 ambulatory Asa Napoles Other [facility] [employer] Other Start: 03-05-2022 Telephone encounter Asa Napoles [facility] Start: 03-03-2022 End: 03-04-[address] ASH BERNSTEIN . Facility:[facility] Start: 03-02-2022 End: 03-02-2022 ambulatory Asa Napoles Facility:[facility] Start: 03-02-2022 End: 03-02-2022 Patient encounter procedure MD Ash Bernstein Work Phone: [facility] Start: 02-26-2022 End: 02-27-[address] ASH BERNSTEIN . Facility:[facility] Start: 02-22-2022 End: 02-25-[address] ASH BERNSTEIN . Facility:[facility] Start: 02-21-2022 End: 02-21-2022 ambulatory Ash Bernstein Facility:[facility] Start: 02-21-2022 End: 02-21-2022 ambulatory MD Ash Bernstein Work Phone: [facility] Work Phone: Start: 02-21-2022 End: 02-21-2022 Departed Referred MD Ash Bernstein Work Phone: [facility] [place] Start: 02-20-2022 End: 02-20-2022 ambulatory Asa Napoles Facility:[facility] Start: 02-20-2022 End: 02-20-2022 Patient encounter procedure MD Ash Bernstein Work Phone: [facility] Start: 02-17-2022 End: 02-17-2022 ambulatory VAHID Kingsley Facility: Start: 01-11-2022 End: 01-12-2022 ambulatory RITA VALVERDE Facility: Procedures Date Procedure Procedure Detail Performing Clinician Start: 06-25-2022 Plain X-ray of left shoulder MD Ash Bernstein Work Phone: Start: 06-06-2022 Colonoscopy Zainab BURNS Start: 06-06-2022 Esophagogastroduodenoscopy Zainab BURNS Start: 05-10-2022 Plain X-ray of left shoulder MD Ash Bernstein Work Phone: Start: 03-26-2022 Plain X-ray of left shoulder MD Ash Bernstein Work Phone: Start: 03-19-2022 Plain X-ray of left shoulder MD Ash Bernstein Work Phone: Start: 03-14-2022 Screening for occult blood in feces MD Ash Bernstein Work Phone: Start: 03-12-2022 Antibody screen Ash Bernstein Comment on above: Order Comment: Transfuse now? Y Number o f units to transfuse now? 2 Result Comment: PERF ORMED BY:[facility] [place] [id number] MEDICAL DIRECTORKIMBERLYN SINGER M.D. Start: 03-12-2022 US scan of gallbladder MD Ash Bernstein Work Phone: Start: 03-11-2022 Diagnostic radiography of abdomen MD Bo Bernstein Work Phone: Start: 03-11-2022 Computed tomography of abdomen and pelvis with contrast MD Ash Bernstein Work Phone: Start: 03-11-2022 Blood culture for bacteria, including anaerobic screen MD Ash Bernstein Work Phone: Start: 03-09-2022 MRI of head MD Ash Bernstein Work Phone: Start: 03-08-2022 Plain chest X-ray MD Ash Bernstein Work Phone: Start: 03-08-2022 SARS-CoV-2, Influenza & RSV (PCR) MD Bo Bernstein Work Phone: Start: 03-08-2022 CT of head without contrast MD Ash garcia Work Phone: Start: 03-06-2022 Plain X-ray of left shoulder MD Ash Bernstein Work Phone: Start: 03-06-2022 Prosthetic total arthroplasty of left shoulder MD Ash Bernstein Work Phone: Start: 03-02-2022 SARS Antigen (LFIA) MD Ash Bernstein Work Phone: Start: 02-20-2022 SARS Antigen (LFIA) MD Ash Bernstein Work Phone: Blood culture for ba cteria, including anaerobic screen MD Ash Bernstein Work Phone: Blood culture for ba cteria, including anaerobic screen MD Ash Bernstein Work Phone: Excision of lumbar i ntervertebral disc Zainab BURNS Fracture of humerus (disorder) Zainab BURNS Plan of Treatment Date Care Activity Detail Author Start: 03-27-2022 [facility] Start: 03-20-2022 Blood chemistry [facility] Start: 03-20-2022 [facility] Start: 03-19-2022 Hospital admission [facility] Start: 03-19-2022 Referral to clinical hook tender [facility] Start: 03-19-2022 [facility] Start: 03-13-2022 [facility] Start: 03-12-2022 [facility] Start: 03-11-2022 Referral to inside horticultural specialty grower [facility] Start: 03-11-2022 [facility] Start: 03-10-2022 Vancomycin [Mass/volume] in Serum or Plasma --trough [facility] Start: 03-10-2022 Vancomycin [Mass/volume] in Serum or Plasma --peak [facility] Start: 03-10-2022 [facility] Start: 03-09-2022 Referral to neurologist [facility] Start: 03-09-2022 [facility] Start: 03-08-2022 Evaluation procedure [facility] Start: 03-08-2022 Blood chemistry [facility] Start: 03-08-2022 Hospital admission [facility] Start: 03-08-2022 [facility] Start: 03-06-2022 Referral to occupational therapist [facility] Start: 03-06-2022 [facility] Start: 02-21-2022 Prosthetic total arthroplasty of left shoulder OR Shoulder Arthroplasty-Total (Left) [facility] Anion gap measurement [facility] Work Phone: Bacteria identified in Blood by Culture [facility] Calcium [Mass/volume ] in Serum or Plasma [facility] Work Phone: Carbon dioxide, tota l [Moles/volume] in Serum or Plasma [facility] Work Phone: Chloride [Moles/volu me] in Serum or Plasma [facility] Work Phone: Creatinine and Glome rular filtration rate.predicted panel - Serum, Plasma or Blood [facility] Work Phone: Ethanol [Mass/volume ] in Urine [facility] Work Phone: Glucose [Mass/volume ] in Serum or Plasma [facility] Work Phone: Measurement of renal function [facility] Work Phone: Patient Education Metabolic Ence phalopathy Hypokalemia (DC) Hyponatremia (DC) Low Magnesium Level (DC) [facility] Work Phone: Patient referral [facility] Work Phone: Potassium [Moles/vol ume] in Serum or Plasma [facility] Work Phone: Sodium [Moles/volume ] in Serum or Plasma [facility] Work Phone: Thiamine [Moles/volu me] in Blood [facility] Work Phone: Urea nitrogen [Mass/ volume] in Serum or Plasma [facility] Work Phone: Immunizations Immunization Date Immunization Notes Care Provider Fa [facility] 03-22-2022 Fluzone QIV High-Dos e 65YR+ MD Ash Bernstein Work Phone: [facility] 03-22-2022 influenza virus vaccine, unspecified formulation Zainab BURNS [facility] 01-26-2021 COVID-19 mRNARigo (Pfizer) MD Ash Bernstein Work Phone: [facility] Comment on above: Result Comment: 2022: [id number] 07-13-2020 COVID-19 Rigo Tay (Mary) MD Ash Bernstein Work Phone: [facility] Comment on above: Result Comment: 2022: [id number] 04-09-2020 SARS-CoV-2 (COVID-19 ) mRNA-1273 vaccine Zainab BURNS [facility] 03-28-2020 COVID-19 mRNARigo (Pfizer) MD Ash Bernstein Work Phone: [facility] Comment on above: Result Comment: 2022: [id number] Payers Date Payer Category Payer Unknown [id number] 1960 Medicare [id number] 1960 Self-pay 1960 Unknown [id number] 2.1 [id number] 1954 Unknown [id number] 2.16. 840.1.743919.3.579.2.356 1954 Unknown [id number] 2.16.8 40.1.272243.3.579.2.727 1954 Unknown [id number] 2.16.8 40.1.254383.3.579.2.727 1954 Unknown [id number] 2.16.8 40.1.508218.3.579.2.727 1954 Unknown [id number] 2.16.84 0.1.126570.3.579.2.593 1954 Unknown [id number] 2.16.84 0.1.339753.3.579.2.593 1954 Unknown [id number] 2.16.84 0.1.291455.3.579.2.593 1954 Unknown [id number] 2.16.84 0.1.438591.3.579.2.593 1954 Unknown [id number] 2.16.84 0.1.021749.3.579.2.593 1954 Unknown [id number] 2.16.84 0.1.643361.3.579.2.593 1954 Unknown [id number] 2.16.84 0.1.416159.3.579.2.593 1954 Unknown [id number] 2.16.84 0.1.578074.3.579.2.593 1954 Unknown [id number] 2.16.84 0.1.133766.3.579.2.593 1954 Unknown [id number] 2.16.84 0.1.316355.3.579.2.593 1954 Unknown [id number] 2.16.84 0.1.262435.3.579.2.593 1954 Unknown [id number] 2.16.84 0.1.551024.3.579.2.593 1954 Unknown [id number] 2.16.84 0.1.505578.3.579.2.593 1954 Unknown [id number] 2.16.84 0.1.586392.3.579.2.593 1954 Unknown [id number] 2.16.84 0.1.201729.3.579.2.593 1954 Unknown [id number] 2.16.84 0.1.572179.3.579.2.593 1954 Unknown [id number] 2.16.84 0.1.748943.3.579.2.593 Unknown Unknown [id number] 2.16.8 40.1.556320.3.579.2.531 Unknown [id number] 2.16.8 40.1.632652.3.579.2.531 Unknown [id number] 2.16.8 40.1.253737.3.579.2.531 Unknown [id number] 2.16.8 40.1.013266.3.579.2.531 Unknown [id number] 2.16.8 40.1.413547.3.579.2.531 Unknown [id number] 2.16.8 40.1.164010.3.579.2.531 Unknown [id number] 2.16.8 40.1.167199.3.579.2.531 Unknown [id number] 2.16.8 40.1.873588.3.579.2.531 Social History Date Type Detail Facility Start: 03-06-2022 End: 03-20-2022 Tobacco smoking status NHIS Ex-smoker (finding) [facility] Start: 1955 Sex Assigned At Female F [facility] Start: 03-08-2022 Tobacco smoking stat [facility] Unknown if ever smoked [facility] Start: 03-19-2022 Tobacco smoking stat [facility] Smoker (finding) [facility] Start: 04-08-1977 End: 04-08-1979 History of tobacco use [facility] Tobacco smoking status Never Gener al [facility] Procedure Code Equipment Code Equipment Origin al Text Equipment Identifier Dates Arthroplasty, shoulder, total Orthopaedic cement, non-medicated ()[id number] FDA Start: 03-06-2022 Arthroplasty, shoulder, total Total reverse shoulder prosthesis ()[id number] FDA Start: 03-06-2022 Arthroplasty, shoulder, total Total reverse shoulder prosthesis ()[id number] FDA Start: 03-06-2022 Arthroplasty, shoulder, total Polymer orthopaedic cement restrictor, non-bioabsorbable, sterile ()[id number] FDA Start: 03-06-2022 Arthroplasty, shoulder, total Total reverse shoulder prosthesis ()[id number] [id number])[id number] 52 FDA Start: 03-06-2022 Arthroplasty, shoulder, total Total reverse shoulder prosthesis ()[id number] [id number] FDA Start: 03-06-2022 Arthroplasty, shoulder, total Total reverse shoulder prosthesis ()[id number]( [id number] FDA Start: 03-06-2022 Arthroplasty, shoulder, total Total reverse shoulder prosthesis ()[id number]( [id number])[id number] 64 FDA Start: 03-06-2022 Arthroplasty, shoulder, total Total reverse shoulder prosthesis ()[id number] [id number])[id number] 41 FDA Start: 03-06-2022 Arthroplasty, shoulder, total Total reverse shoulder prosthesis ()[id number] [id number] FDA Start: 03-06-2022 Arthroplasty, shoulder, total Total reverse shoulder prosthesis ()[id number] [id number] FDA Start: 03-06-2022 Arthroplasty, shoulder, total Total reverse shoulder prosthesis ()[id number] FDA Start: 03-06-2022 Goals Date Patient Goal Desired Activity /State Functional Status Date Assessment Result Facility 05-09-2022 Functional Status N/A General Kamara christine Gaspar 03-27-2022 Functional status Patient at Baseline [facility] Work Phone: 03-19-2022 Functional status Patient is Pro gressing Toward Baseline [facility] Work Phone: 03-07-2022 Functional status Patient is Pro gressing Toward Baseline [facility] Work Phone: Mental Status Date Assessment Result Facility 03-27-2022 Cognitive function Cognitive Sta tus Patient at Baseline [facility] Work Phone: 03-19-2022 Cognitive function Cognitive Sta tus Patient is Progressing Toward Baseline [facility] Work Phone: 03-07-2022 Cognitive function Cognitive Sta tus Patient at Baseline [facility] Work Phone: Clinical Notes 03-06-2022 to 07-04-2022 Note Date & Type Note Facility 07-04-2022 Note PROCEDURE: XR FOOT R T MIN 3 VIEWS HISTORY: Hand pain ; acute right foot pain since falling 3 days ago COMPARISON: XR foot right 10/05/2020 FINDINGS: BONES:No fracture, acute abnormality, or significant arthropathy. SOFT TISSUES:No visible soft tissue swelling. EFFUSION:None visible. OTHER: Negative. IMPRESSION: 1. No acute bone abnormality. 2. Multifocal mild degenerative changes. 3. Incomplete healing of previously seen second through fourth metatarsal fractures. Electronically authenticated by: NAVI GARY Date: 2022-07-04 10:47 [facility] 07-04-2022 Note PROCEDURE: XR WRIST LT MIN 3 V HISTORY: Hand pain ; right wrist pain since falling 3 days ago COMPARISON: None. FINDINGS: BONES:No fracture, acute abnormality, or significant arthropathy. SOFT TISSUES:Mild soft tissue swelling. EFFUSION:None visible. OTHER: Negative. IMPRESSION: 1. No acute bone abnormality. Minimal degenerative joint disease. Electronically authenticated by: NAVI GARY Date: 2022-07-04 10:44 [facility] 06-25-2022 Evaluation note Encounter Date Diagnosis Assessment Notes Jun, Closed displaced fracture of surgical neck of left humerus, unspecified fracture morphology, initial encounter (ICD-10 - S42.212A) Patient instructed on the importance of continued daily shoulder motion exercise and rotator cuff strengthening exercise. Patient instructed table and wall walks to help with motion. This was demonstrated. Discussed that heavy or strenuous use of the shoulder should be avoided. Patient may slowly progress increased activity as pain allows. Jun, 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) [employer] Other 03-01-2023 NoteOPERATIVE NOTE OPERATION DATE: 06/06/2022 PREOPERATIVE DIAGNOSIS: Iron deficiency anemia. POSTOPERATIVE DIAGNOSIS: Antral gastritis as well as ascending and sigmoid colon polyps. PROCEDURE: EGD with antral biopsy x2, colonoscopy to cecum with cold snare polypectomy x3. SURGEON: Zainab Burns M.D. ANESTHESIA: Monitored anesthesia care. ESTIMATED BLOOD LOSS: Less than 1 mL. INDICATIONS AND CONSENT: Patient is a 67-year-old female recently found to have iron deficiency anemia. Indications, risks, benefits, alternatives of proceeding with EGD and colonoscopy were explained extensively to the patient, including the risks of bleeding, aspiration, esophageal/gastric/duodenal or colonic perforation or anesthetic complications. All of her questions were answered. Informed consent was obtained. PROCEDURE: Patient brought to the operating room, placed in the left lateral decubitus position. Monitored anesthesia care was provided. A bite block was placed in the patient's mouth. Scope was inserted into the oropharynx. Under direct visualization, it was advanced into the esophagus, past the cricopharyngeus, down to the stomach. The stomach was insufflated with air. The pylorus was traversed down to the descending portion of the duodenum. There was no evidence of duodenitis or ulceration. There was no scarring within the pyloric channel. The scope was pulled back into the stomach and retroflexed. There was no significant hiatal hernia. Within the antrum, there was noted to be antral gastritis without ulceration or bleeding. Biopsy x2 was obtained with pediatric biopsy forceps with good hemostasis. The GE junction was noted at approximately 38 cm. There was no distal esophagitis or Mckinney's changes. Remainder of the esophagus was unremarkable. The scope was then withdrawn. The patient was then positioned for colonoscopy. Rectal exam was performed which showed no masses or blood. Scope was inserted into the anal canal. Under direct visualization was advanced. It was advanced to the cecum where cecal markings were clearly identified. There was noted to be a good prep. Upon withdrawal of the scope, mucosal surfaces were carefully examined. Within the ascending colon, there was noted to be an irregular 4 mm flat polyp that was removed with cold snare with good hemostasis. In the sigmoid colon, there were two 3-4 mm erythematous polyps that were removed with cold snare with good hemostasis. The scope was retroflexed in the anal canal. There was noted to be some prominent rectal veins, no significant hemorrhoidal disease. Scope was then withdrawn. Patient tolerated procedure well, was sent to recovery room in good condition. CC: Ash Bernstein M.D.[id number] Evaluation note* Encounter Date Diagnosis Assessment Notes Treatment Notes Treatment Clinical Notes May, Closed displaced fracture of surgical neck of left humerus, unspecified fracture morphology, initial encounter (ICD-10 - S42.212A) May, 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) Radiographs reviewed with patient as satisfactory alignment of reverse total shoulder components. Instructed on progressive motion and strengthening exercises, these were demonstrated. Provided formal therapy order today. Call with questions/concerns. [employer] Other 02-01-2023 NoteChief Complaint consultation for anemia HPI Staff 66 year old female presents on consultation from Dr. Bernstein for anemia. Reports dizziness, fatigue andSOB. Labs completed 04/26- HGB 9.6, HCT 28.8. Labs completed 02/2021- HGB 7.4, HCT 22.2. Never had EGD or colonoscopy in the past. History of Present Illness 66 yo female with h/o htn, DMII, hyperlipidemia, osteoporosis, lumbosacral stenosis, referred for iron deficiency anemia; patient with hb of 10 back in January 2022; 02/2021 hb 12; had fall 02/2022 with shoulder fx, found to have hb down to 7.4 during that admission; most recent hb 8.0 05/02/22; patient found to have low iron level, also electrolyte problems; still feels weak; no N/V or abd pain; no change in bms, formed bms daily, no melena or hematochezia; no previous endoscopy or abdominal operations; no h/o ulcer disease; on Diclofenac prn, no asa, no SBE prophylaxis, no fmhx of GI malignancy or IBD. no tobacco use. Review of Systems PHQ Score Initial Depression Screen Score: 0 ROS - Provider Constitutional: no fever, no sweats, no weight loss. Eyes: no glasses, no blurred vision, no visual loss. ENMT: no dentures, no hoarseness, no swallowing difficulties, no hearing loss, no ear infection(s),no nose bleeds. Cardiovascular: normal blood pressure, no chest pain, regular heartbeat, no heart murmur. Respiratory: no shortness of breath, no cough, no asthma, no wheezing. Gastrointestinal: no nausea, no vomiting, no diarrhea, no constipation, no blood in stool, no change in bowel habits, no abdominal pain, no hepatitis. Genitourinary: no kidney stones, no urine infection, no dysuria. Musculoskeletal: no pain, no weakness. Skin: no changing moles, no rash, no skin lumps. Neurologic: no seizures, no epilepsy, no headache. Psychiatric: no emotional or psychiatric problem. Heme/Lymph: no bleeding problems, no anemia, no blood clots, no transfusions. Allergy/Immunologic: no swollen lymph nodes/glands, no IV drug abuse. Other: Additional ROS info: Except as noted in the above Review of Systems and in the History of Present Illness, all other systems have been reviewed and are negative or noncontributory. Physical Exam Vitals & Measurements HR: 76(Peripheral) RR: 16 BP: 120/62 HT: 68 in HT: 172.72 cm WT: 99.0 kg WT: 217.8 lb BMI: 33.19 HEENT: normal conjunctiva, sclera clear, no scleral icterus, EOM intact, PERRLA, oral mucosa moist without lesions. pale Neck: trachea midline, no mass, symmetric, no thyromegaly or nodules, no adenopathy Respiratory: lungs CTA, respirations non labored. Cardiovascular: regular rate and rhythm, no murmur, no pedal edema or varicosities. Gastrointestinal: soft, non distended, no tenderness, no masses, no palpable hernias, diastasis recti no, no hepatosplenomegaly; normal bs Lymphatic: no cervical adenopathy, no supraclavicular adenopathy Musculoskeletal: abnormal gait, digits and nails without infection, nodes, cyanosis, clubbing. Skin: no rashes, no lesions, no ulcers, no subcutaneous nodules, induration. Psychiatric/Neuro: oriented to time, place, person, judgement normal, affect appropriate for age, insight intact, no focal deficits. Tests: labs reviewed, x-rays reviewed, review of old records completed, Discussed surgical options, risks, and possible complications with patient. Assessment/Plan 1. Iron deficiency anemia (D50.9: Iron deficiency anemia, unspecified) plan EGD and colonoscopy under anesthesia for further evaluation, informed consent obtained. Follow-up No qualifying data available Problem List/Past Medical History Ongoing Anxiety BMI 33.0-33.9,adult Depression Diabetes Dysarthria Eczema Hearing loss HTN (hypertension) Hypomagnesemia Hyponatremia IBS (irritable bowel syndrome) Iron deficiency anemia Lumbosacral stenosis Obesity Osteoporosis Historical No qualifying data Procedure/Surgical History Fracture of humerus, Lumbar discectomy. Medications amLODIPine 10 mg Tab, 10 mg= 1 tab(s), Oral, Daily atorvastatin 10 mg Tab, 10 mg= 1 tab(s), Oral, Daily CeleXA 40 mg Tab, 40 mg= 1 tab(s), Oral, Daily diclofenac sodium 75 mg Oral EC Tab, 75 mg= 1 tab(s), Oral, BID folic acid 1 mg Tab, 1 mg= 1 tab(s), Oral, Daily gabapentin 600 mg Tab, 600 mg= 1 tab(s), Oral, BID irbesartan 300 mg Tab, 300 mg= 1 tab(s), Oral, Daily lansoprazole 30 mg Cap-DR, 30 mg= 1 cap(s), Oral, Daily liothyronine 5 mcg Tab, 10 mcg= 2 tab(s), Oral, Daily magnesium oxide 400 mg Tab, 400 mg= 1 tab(s), Oral, Daily metformin 850 mg Tab, 850 mg= 1 tab(s), Oral, BID pioglitazone 45 mg Tab, 45 mg= 1 tab(s), Oral, Daily quetiapine 100 mg Tab, 100 mg= 1 tab(s), Oral, Bedtime Sodium Chloride 1 g oral tablet, 3 tab(s), Oral, TID Allergies No Known Allergies No Known Medication Allergies Social History Alcohol - Denies Alcohol Use, 05/09/2022 Substance Abuse Current, Marijuana, 1-2 times per week, 05/09/2022 Tobacco Former smoker, quit more t (more content not included)...[facility] HospitalComment on above:Result Comment: Electronically Signed By: GRANT CAMPBELL, Zainab Hermosillo\Date and Time Signed: 05/09/22 16:16 [id number] Evaluation note * Encounter Date Diagnosis Assessment Notes Treatment Notes Treatment Clinical Notes Mar, Displaced fracture of proximal end of left humerus (ICD-10 - S42.A) [employer] Other 12-17-2022 Progress note Author Ryan Ibrahim [facility] March 24, 2022 11:20am Note Date/Time March 24, 2022 11:20am [facility] [address] [place] [address] Physiatry(Rehab) Progress Note Signed Patient: Guera Sanchez MR#: [id number] : 1955 Acct:[id number] Age/Sex: 66 / F Adm Date: 2 Loc: Room: 7B0472-7 Type: ADM IN Attending Dr: Ryan Ibrahim MD Copies to: ~ Date of Service: 03/24/2022 Subjective Subjective Narrative: Ms. Sanchez is a 66 year old female with PMH of anxiety, depression, type 2 diabetes, hyperlipidemia hypertension, IBS hypothyroidism, WALES, who presents to acute inpatient rehab for strengthening. Apparently she underwent a left total shoulder replacement by Dr. Napoles on 03/06/2022 after she fractured left proximal humerus. Procedure was uncomplicated and she was able to be discharged home on 03/08/2022. Patient's friend found her very confused and called the EMS. In the ER she was found to be restless and agitated. She was tachycardic in the 120s with prolonged QT intervals on EKG. Hypokalemic at 2.5, sodium critically low at 122. She did receive a bolus of normal saline followed by 30% normal saline bolus. She was also started on broad-spectrum IV antibiotics for leukocytosis and fever and admitted to the hospital for further management. While inpatient, she was on Precedex drip more agitation and combativeness. Neurology was consulted. Suspect metabolic encephalopathy related to hyponatremia. MRI demonstrated chronic small vessel changes, findings which maybe seen with mild posterior reversible encephalopathy. Neurology recommends repeat MRI in 1.5 to 3 months to ensure resolution. EEG was also abnormal demonstrating generalized rhythmic delta activity without evidence of seizure. Neurology recommends aggressive BP management and keeping BP less than 130 systolically at all times. Blood cultures were negative thus antibiotics were discontinued. Her encephalopathy is gradually improving. During hospital stay patient did develop acute abdominal pain with nausea and vomiting. CT of the abdomen is notable for dilated duodenum without transition point was inflammatory changes suspicious for duodenitis, cholelithiasis with suspicion for acute cholecystitis. GI consulted. Ultrasound of the gallbladderwas obtained and demonstrated cholelithiasis without acute cholecystitis. NG was inserted and conservative medical management was recommended. Interval history: She is doing well Blood sugars reviewed, a little higher than her baseline, favor observing for now Nearly independent for mobility and self-care The plan is for home on Saturday She would like to follow-up with her orthopedic surgeon in the hospital if possible as she will be moving out of town Review of Systems Review of Systems All other systems reviewed & are negative unless noted below or in HPI Exam Physical Exam Vital Signs: Temp Pulse Resp BP Pulse Ox O2 Del Method 98.5 F 93 H 18 95/58 L 98 Room Air 03/24/22 10:15 03/24/22 10:15 03/24/22 10:15 03/24/22 10:41 03/24/22 10:15 03/24/22 10:25 Narrative: Cooperative Left arm in sling Nonlabored breathing Regular rate and rhythm Abdomen soft and nontender Moves extremities antigravity Objective Labs CBC & Chem 7: 03/20/22 08:31 03/21/22 05:57 Labs: Laboratory Results - last 24 hr 03/23/22 03/23/22 03/23/22 11:20 16:10 19:17 POC Glucose 202 136 192 POC Glucose Comment Glu2: cleaned meter 03/24/22 06:05 POC Glucose 208 POC Glucose Comment Medications and Allergies Allergies and Active Meds: Allergies No Known Allergies Allergy (Verified 02/20/22 14:07) Active Medications Generic Name Dose Route Start Last Admin Trade Name Freq PRN Reason Stop Dose Admin Acetaminophen 500 mg 03/19/22 16:38 03/24/22 08:05 Acetaminophen 500 Mg Tablet PO 03/19/23 16:37 500 mg Q4H PRN Administration Pain Al Hydrox/Mg Hydrox/Simethicone 30 ml 03/19/22 16:38 03/23/22 17:08 Mag Hydrox/Al Hydrox/Simeth 30 Ml Udc PO 03/19/23 16:37 30 ml Q4H PRN Administration Indigestion Amlodipine Besylate 10 mg 03/20/22 09:00 03/24/22 08:05 Amlodipine 10 Mg Tablet PO 03/20/23 08:59 10 mg DAILY RYAN Administration Atorvastatin Calcium 10 mg 03/20/22 21:00 03/23/22 20:10 Atorvastatin 10 Mg Tablet PO 03/20/23 20:59 Not Given QPM RYAN Bisacodyl 10 mg 03/19/22 16:38 Bisacodyl 10 Mg Supp.Rect OK 03/19/23 16:37 DAILY PRN Constipation Citalopram Hydrobromide 80 mg 03/20/22 14:00 03/24/22 08:05 Citalopram 40 Mg Tablet PO 03/20/23 13:59 80 mg QAM RYAN Administration Cyclobenzaprine HCl 5 mg 03/20/22 13:57 03/23/22 19:23 Cyclobenzaprine 5 Mg Tablet PO 03/19/23 16:34 5 mg TID PRN Administration Muscle Spasm Docusate Sodium 100 mg 03/19/22 16:38 Docusate 100 Mg Capsule PO 03/19/23 16:37 BID PRN Constipation Docusate Sodium 283 mg 03/19/22 16:38 Docusate Enema 283 Mg/5 Ml Enema OK 03/19/23 16:37 DAILY PRN Constipation Folic Acid 1 mg 03/20/22 09:00 03/24/22 08:05 Folic Acid 1 Mg Tablet PO 03/20/23 08:59 1 mg DAILY RYAN Administration Gabapentin 600 mg 03/19/22 21:00 03/24/22 08:05 Gabapentin 600 Mg Tablet PO 03/19/23 20:59 600 mg BID RYAN Administration Insulin Aspart 0 units 03/19/22 17:00 03/24/22 08:08 Insulin Aspart 300 Units/3 Ml Insuln.Pen SUBCUT 03/19/23 16:59 2 units TID.WM.HS RYAN Administration Protocol Insulin Glargine 5 units 03/21/22 08:00 03/24/22 08:09 Insulin Glargine 300 Units/3 Ml Insuln.Pen SUBCUT 03/21/23 07:59 5 units DAILY.WITH.BKFAST RYAN Administration Irbesartan 300 mg 03/20/22 09:00 03/24/22 08:06 Irbesartan 300 Mg Tablet PO 03/20/23 08:59 300 mg DAILY RYAN Administration Lactulose 30 gm 03/19/22 16:38 Lactulose 20 Gm/30 Ml Udc PO 03/19/23 16:37 DAILY PRN Constipation Lansoprazole 30 mg 03/20/22 09:00 03/24/22 08:05 Lansoprazole Solutab *Nf* 30 Mg Tab.Rap. PO 03/20/23 08:59 30 mg DAILY RYAN Administration Liothyronine Sodium 10 mcg 03/20/22 09:00 03/24/22 08:05 Liothyronine 5 Mcg Tablet PO 03/20/23 08:59 10 mcg DAILY RYAN Administration Loratadine 10 mg 03/20/22 09:00 03/24/22 08:06 Loratadine 10 Mg Tablet PO 03/20/23 08:59 10 mg DAILY RYAN Administration Magnesium Oxide 400 mg 03/19/22 21:00 03/24/22 08:06 Magnesium Oxide 400 Mg Tablet PO 03/19/23 20:59 400 mg BID RYAN Administration Melatonin 5 mg 03/19/22 22:00 12/16/22 20:13 Melatonin 5 Mg Tablet PO 03/19/23 21:59 Not Given QHS RYAN Metformin HCl 850 mg 03/20/22 17:00 03/24/22 08:06 Metformin 850 Mg Tablet PO 03/20/23 16:59 850 mg BID.WITH.MEALS RYAN Administration Non-Formulary Medication 40 mg 03/19/22 21:00 Pantoprazole PO 03/19/23 20:59 BID RYAN Nystatin 1 applic 03/24/22 10:30 Nystatin 100,000 Unit/Gram Powder 15 Gm Bottle TOPICAL 03/24/23 10:29 BID RYAN Ondansetron HCl 4 mg 03/19/22 18:17 Ondansetron Odt 4 Mg Tab.Rapdis PO 03/19/23 16:44 Q6H PRN Nausea Pioglitazone HCl 45 mg 03/20/22 09:00 03/24/22 08:05 Pioglitazone 45 Mg Tablet PO 03/20/23 08:59 45 mg DAILY RYAN Administration Quetiapine Fumarate 100 mg 03/19/22 22:00 03/23/22 20:13 Quetiapine Fumarate 100 Mg Tablet PO 03/19/23 21:59 Not Given QHS [facility] Sennosides 2 tab 03/20/22 12:00 Sennosides 8.6 Mg Tablet PO 03/20/23 11:59 DAILY@12 PRN If no BM in 2 days Sodium Chloride 1 gm 03/19/22 22:00 03/24/22 08:05 Sodium Chloride 1 Gm Tablet PO 03/19/23 21:59 1 gm TID RYAN Administration Sodium Chloride 0 ml 03/19/22 16:38 Sodium Chloride 0.9 % 10 Ml Syringe IV-PUSH 03/19/23 16:37 PRN PRN Flush Thiamine HCl 100 mg 03/20/22 09:00 03/24/22 08:05 Thiamine 100 Mg Tablet PO 03/20/23 08:59 100 mg DAILY RYAN Administration Assessment/Plan Assessment/Plan (1) PRES (posterior reversible encephalopathy syndrome): Code(s): I67.83 - Posterior reversible encephalopathy syndrome Status: Acute (2) Duodenitis: Code(s): K29.80 - Duodenitis without bleeding Status: Acute (3) Metabolic encephalopathy: Code(s): G93.41 - Metabolic encephalopathy Status: Acute (4) Hypokalemia: Code(s): E87.6 - Hypokalemia Status: Acute (5) Hyponatremia: Code(s): E87.1 - Hypo-osmolality and hyponatremia Status: Acute (6) Hypomagnesemia: Code(s): E83.42 - Hypomagnesemia Status: Acute (7) Impaired mobility and activities of daily living: Code(s): Z74.09 - Other reduced mobility; Z78.9 - Other specified health status Status: Acute (8) Anemia: Code(s): D64.9 - Anemia, unspecified Status: Acute Plan 66-year-old female admitted to acute inpatient rehab for strengthening secondaryto acute encephalopathy. She was also found to be hypokalemic and hyponatremic requiring 3% saline infusion. Developed acute duodenitis, questionable small bowel obstruction which was managed with NG tube. * Plan for home on Saturday * Will follow-up with orthopedics Saturday regarding any recommendations at discharge * Leave diabetic regimen as is for now unless hyperglycemia worsens * Trend blood pressures Patient education Pressure ulcer prophylaxis; encourage mobilization, frequent postural changes, pressure-relief techniques DVT prophylaxis: Pharmacological prophylaxis is contraindicated. Bilateral lower extremity SCDs Encourage deep breathing exercise incentive spirometry. Monitor bladder. Toileting schedule. Continue current bladder management, with scans as needed and CIC if needed. Start bowel care program every day to obtain continence, prevent ileus. Maintain fall precautions Gait and balance retraining Functional training and self-care and home management, including activities of daily living and instrumental activities of daily living Provision of the necessary gait aids and functional adaptive equipment to enhance the patient's a functional confucianist Ensure adequate nutrition and hydration Sleep: Denies any issues pain: Denies any issues Discharge planning: Home with family next week I completed a substantive portion of this encounter, the medical decision makingportion of this note in its entirety, including Allied health note review, nursing note review, consultant technology note review, discussion with nursing and case management, and more than 50% of my time was spent on counseling and coordination of care, time spent 23 minutes Patient was personally seen by me, Dr. Ibrahim, on the day of encounter, reviewed the history and the relevant portions of the chart, including current orders, allied health and consultant technology notes, labs/imaging and performed freedman elements of exam and I formulated the plan of care and facilitated the medical decision making. Documented By: Ryan Ibrahim MD 03/24/22 1118 Signed By: <Electronically signed by Ryan Ibrahim MD> 03/24/22 1124 [facility] Work Phone: [phone] 439-585112-17-2022 Progress note Author Ryan Ibrahim [facility] March 24, 2022 8:51am Note Date/Time March 23, 2022 12:37pm [facility] [address] [place] [address] Physiatry(Rehab) Progress Note Signed Patient: Guera Sanchez MR#: [id number] : 1955 Acct:[id number] Age/Sex: 66 / F Adm Date: 2 Loc: Room: [address] [place] [address] Type: ADM IN Attending Dr: Ryan Ibrahim MD Copies to: ~ <Ronel Haney APRN - Last Filed: 03/23/22 12:46> Date of Service: 03/23/2022 Subjective <Ronel Haney APRN - Last Filed: 03/23/22 12:46> Subjective Narrative: Ms. Sanchez is a 66 year old female with PMH of anxiety, depression, type 2 diabetes, hyperlipidemia hypertension, IBS hypothyroidism, WALES, who presents to acute inpatient rehab for strengthening. Apparently she underwent a left total shoulder replacement by Dr. Napoles on 03/06/2022 after she fractured left proximal humerus. Procedure was uncomplicated and she was able to be discharged home on 03/08/2022. Patient's friend found her very confused and called the EMS. In the ER she was found to be restless and agitated. She was tachycardic in the 120s with prolonged QT intervals on EKG. Hypokalemic at 2.5, sodium critically low at 122. She did receive a bolus of normal saline followed by 30% normal saline bolus. She was also started on broad-spectrum IV antibiotics for leukocytosis and fever and admitted to the hospital for further management. While inpatient, she was on Precedex drip more agitation and combativeness. Neurology was consulted. Suspect metabolic encephalopathy related to hyponatremia. MRI demonstrated chronic small vessel changes, findings which maybe seen with mild posterior reversible encephalopathy. Neurology recommends repeat MRI in 1.5 to 3 months to ensure resolution. EEG was also abnormal demonstrating generalized rhythmic delta activity without evidence of seizure. Neurology recommends aggressive BP management and keeping BP less than 130 systolically at all times. Blood cultures were negative thus antibiotics were discontinued. Her encephalopathy is gradually improving. During hospital stay patient did develop acute abdominal pain with nausea and vomiting. CT of the abdomen is notable for dilated duodenum without transition point was inflammatory changes suspicious for duodenitis, cholelithiasis with suspicion for acute cholecystitis. GI consulted. Ultrasound of the gallbladderwas obtained and demonstrated cholelithiasis without acute cholecystitis. NG was inserted and conservative medical management was recommended. Interval history: Patient examined in her room; she just returned from PT session. She is doing well. No significant complaints on assessment. Minor postoperative discomfort in the left shoulder, she has been icing it with relief. She is questioning whether Steri-Strips could be removed for the incision. Incision is well approximated without signs of drainage. No GI or complaints. Diarrhea resolved, no complaints of abdominal pain. Her appetite is adequate. She is doing very well in therapy and would like to go home early next week. Florentino set up an FI with family. Review of Systems <Ronel Haney APRN - Last Filed: 03/23/22 12:46> Constitutional Constitutional: Reports fatigue and Reports weakness Eyes Eyes: Reports system reviewed and no additional complaints, except as documented ENT Ears, Nose, Mouth, and Throat: Reports system reviewed and no additional complaints, except as documented Cardiovascular Cardiovascular: Reports system reviewed and no additional complaints, except as documented Respiratory Respiratory: Reports system reviewed and no additional complaints, except as documented Gastrointestinal Gastrointestinal: Denies bloating, Reports constipation and Denies nausea Genitourinary Genitourinary: Reports system reviewed and no additional complaints, except as documented Musculoskeletal Musculoskeletal: Reports system reviewed and no additional complaints, except asdocumented Integumentary/Breasts Skin/Breast: Reports system reviewed and no additional complaints, except as documented Neurologic Neurologic: Reports as per HPI and Reports weakness Psychiatric Psychiatric: Reports system reviewed and no additional complaints, except as documented Endocrine Endocrine: Reports system reviewed and no additional complaints, except as documented and Reports fatigue Hematologic/Lymphatic Hematologic/Lymphatic: Reports system reviewed and no additional complaints, except as documented Allergic/Immunologic Allergic/Immunologic: Reports system reviewed and no additional complaints, except as documented Exam <Ronel Haney APRN - Last Filed: 03/23/22 12:46> Physical Exam Vital Signs: Temp Pulse Resp BP Pulse Ox O2 Del Method 97.9 F 101 H 17 135/73 95 Room Air 03/23/22 05:13 03/23/22 05:13 03/23/22 05:13 03/23/22 05:13 03/23/22 05:13 03/23/22 05:13 Narrative: Const General: cooperative, comfortable, no acute distress Nutritional Appearance: Normal body habitus Orientation: alert, awake and oriented, delayed processing Limitations: None HEENT Head: normal to inspection, normocephalic and atraumatic Ears: hearing grossly normal bilaterally Nose: external nose normal Face and sinus: normal facial exam Eyes General: appearance normal, both eyes and all related structures Pupils: PERRL EOM: EOM intact bilaterally Neck Neck: normal visual inspection, full ROM, no lymphadenopathy and trachea midline Neck mass: No Chest Chest palpation & inspection: normal inspection of the chest Resp Effort & Inspection: normal respiratory effort, able to speak in complete sentences, symmetric chest movement and no cough Auscultation: clear to auscultation bilaterally Cardio Jugular venous pressure: no JVD Rhythm: Regular rhythm and rate GI: Inspection: normal to inspection Palpation: soft, no hepatosplenomegaly and nontender Auscultation: normal bowel sounds Musc Cervical Spine: normal cervical lordosis and cervical ROM normal Thoracic/Lumbar Spine: thoraco-lumbar ROM normal Skin General: no rashes or lesions noted Neuro General: patient alert, oriented x3, moves all extremities Cranial Nerves: PERRL Speech: speech normal Extrem Other: Left shoulder incision, approximated with Steri-Strips. Scant bloody drainage on the strips, no erythema or swelling. Psych Appearance: grossly normal Mental Status: WNL Mood: congruent mood Affect: normal affect Speech and Movement: speech and movement normal Attitude: cooperative Insight: Limited Judgment: Limited Objective <Ronel Haney APRN - Last Filed: 03/23/22 12:46> Labs CBC & Chem 7: 03/20/22 08:31 03/21/22 05:57 Labs: Laboratory Results - last 24 hr 03/22/22 03/22/22 03/23/22 16:31 19:55 07:14 POC Glucose 185 142 180 POC Glucose Comment Glu2: cleaned meter Medications and Allergies Allergies and Active Meds: Allergies No Known Allergies Allergy (Verified 02/20/22 14:07) Active Medications Generic Name Dose Route Start Last Admin Trade Name Freraisa PRN Reason Stop Dose Admin Acetaminophen 500 mg 03/19/22 16:38 03/23/22 05:13 Acetaminophen 500 Mg Tablet PO 03/19/23 16:37 500 mg Q4H PRN Administration Pain Al Hydrox/Mg Hydrox/Simethicone 30 ml 03/19/22 16:38 03/22/22 20:12 Mag Hydrox/Al Hydrox/Simeth 30 Ml Udc PO 03/19/23 16:37 30 ml Q4H PRN Administration Indigestion Amlodipine Besylate 10 mg 03/20/22 09:00 03/23/22 08:13 Amlodipine 10 Mg Tablet PO 03/20/23 08:59 10 mg DAILY RYAN Administration Atorvastatin Calcium 10 mg 03/20/22 21:00 03/22/22 20:13 Atorvastatin 10 Mg Tablet PO 03/20/23 20:59 10 mg QPM RYAN Administration Bisacodyl 10 mg 03/19/22 16:38 Bisacodyl 10 Mg Supp.Rect OK 03/19/23 16:37 DAILY PRN Constipation Citalopram Hydrobromide 80 mg 03/20/22 14:00 03/23/22 08:14 Citalopram 40 Mg Tablet PO 03/20/23 13:59 80 mg QAM RYAN Administration Cyclobenzaprine HCl 5 mg 03/20/22 13:57 03/22/22 20:13 Cyclobenzaprine 5 Mg Tablet PO 03/19/23 16:34 5 mg TID PRN Administration Muscle Spasm Docusate Sodium 100 mg 03/19/22 16:38 Docusate 100 Mg Capsule PO 03/19/23 16:37 BID PRN Constipation Docusate Sodium 283 mg 03/19/22 16:38 Docusate Enema 283 Mg/5 Ml Enema OK 03/19/23 16:37 DAILY PRN Constipation Folic Acid 1 mg 03/20/22 09:00 03/23/22 08:14 Folic Acid 1 Mg Tablet PO 03/20/23 08:59 1 mg DAILY RYAN Administration Gabapentin 600 mg 03/19/22 21:00 03/23/22 08:13 Gabapentin 600 Mg Tablet PO 03/19/23 20:59 600 mg BID RYAN Administration Insulin Aspart 0 units 03/19/22 17:00 03/23/22 12:07 Insulin Aspart 300 Units/3 Ml Insuln.Pen SUBCUT 03/19/23 16:59 2 units TID.WM.HS RYAN Administration Protocol Insulin Glargine 5 units 03/21/22 08:00 03/23/22 08:12 Insulin Glargine 300 Units/3 Ml Insuln.Pen SUBCUT 03/21/23 07:59 5 units DAILY.WITH.BKFAST RYAN Administration Irbesartan 300 mg 03/20/22 09:00 03/23/22 08:13 Irbesartan 300 Mg Tablet PO 03/20/23 08:59 300 mg DAILY RYAN Administration Lactulose 30 gm 03/19/22 16:38 Lactulose 20 Gm/30 Ml Udc PO 03/19/23 16:37 DAILY PRN Constipation Lansoprazole 30 mg 03/20/22 09:00 03/23/22 08:14 Lansoprazole Solutab *Nf* 30 Mg Tab.Rap.Dr PO 03/20/23 08:59 30 mg DAILY RYAN Administration Liothyronine Sodium 10 mcg 03/20/22 09:00 03/23/22 08:14 Liothyronine 5 Mcg Tablet PO 03/20/23 08:59 10 mcg DAILY RYAN Administration Loratadine 10 mg 03/20/22 09:00 03/23/22 08:13 Loratadine 10 Mg Tablet PO 03/20/23 08:59 10 mg DAILY RYAN Administration Magnesium Oxide 400 mg 03/19/22 21:00 03/23/22 08:13 Magnesium Oxide 400 Mg Tablet PO 03/19/23 20:59 400 mg BID RYAN Administration Melatonin 5 mg 03/19/22 22:00 03/22/22 20:13 Melatonin 5 Mg Tablet PO 03/19/23 21:59 5 mg QHS RYAN Administration Metformin HCl 850 mg 03/20/22 17:00 03/23/22 08:14 Metformin 850 Mg Tablet PO 03/20/23 16:59 850 mg BID.WITH.MEALS RYAN Administration Non-Formulary Medication 40 mg 03/19/22 21:00 Pantoprazole PO 03/19/23 20:59 BID RYAN Ondansetron HCl 4 mg 03/19/22 18:17 Ondansetron Odt 4 Mg Tab.Rapdis PO 03/19/23 16:44 Q6H PRN Nausea Pioglitazone HCl 45 mg 03/20/22 09:00 03/23/22 08:13 Pioglitazone 45 Mg Tablet PO 03/20/23 08:59 45 mg DAILY RYAN Administration Quetiapine Fumarate 100 mg 03/19/22 22:00 03/22/22 20:13 Quetiapine Fumarate 100 Mg Tablet PO 03/19/23 21:59 100 mg QHS RYAN Administration Sennosides 2 tab 03/20/22 12:00 Sennosides 8.6 Mg Tablet PO 03/20/23 11:59 DAILY@12 PRN If no BM in 2 days Sodium Chloride 1 gm 03/19/22 22:00 03/23/22 08:13 Sodium Chloride 1 Gm Tablet PO 03/19/23 21:59 1 gm TID RYAN Administration Sodium Chloride 0 ml 03/19/22 16:38 Sodium Chloride 0.9 % 10 Ml Syringe IV-PUSH 03/19/23 16:37 PRN PRN Flush Thiamine HCl 100 mg 03/20/22 09:00 03/23/22 08:14 Thiamine 100 Mg Tablet PO 03/20/23 08:59 100 mg DAILY RYAN Administration Assessment/Plan <Ronel Haney, DRY CLEANING CHECKER - Last Filed: 03/23/22 12:46> Assessment/Plan (1) PRES (posterior reversible encephalopathy syndrome): Code(s): I67.83 - Posterior reversible encephalopathy syndrome Status: Acute (2) Duodenitis: Code(s): K29.80 - Duodenitis without bleeding Status: Acute (3) Metabolic encephalopathy: Code(s): G93.41 - Metabolic encephalopathy Status: Acute (4) Hypokalemia: Code(s): E87.6 - Hypokalemia Status: Acute (5) Hyponatremia: Code(s): E87.1 - Hypo-osmolality and hyponatremia Status: Acute (6) Hypomagnesemia: Code(s): E83.42 - Hypomagnesemia Status: Acute (7) Impaired mobility and activities of daily living: Code(s): Z74.09 - Other reduced mobility; Z78.9 - Other specified health status Status: Acute (8) Anemia: Code(s): D64.9 - Anemia, unspecified Status: Acute Plan 66-year-old female admitted to acute inpatient rehab for strengthening secondaryto acute encephalopathy. She was also found to be hypokalemic and hyponatremic requiring 3% saline infusion. Developed acute duodenitis, questionable small bowel obstruction which was managed with NG tube. * Doing very well in therapy. Walking functional distances without assistive device, able to do 15 stairs, independent with transfers and bed mobility. Will attempt to set up with patient's daughter early next week, likely home thereafter * Will clarify Steri-Strip removal with Dr. Napoles. * Blood glucose levels are marginally improved. Patient education Pressure ulcer prophylaxis; encourage mobilization, frequent postural changes, pressure-relief techniques DVT prophylaxis: Pharmacological prophylaxis is contraindicated. Bilateral lower extremity SCDs Encourage deep breathing exercise incentive spirometry. Monitor bladder. Toileting schedule. Continue current bladder management, with scans as needed and CIC if needed. Start bowel care program every day to obtain continence, prevent ileus. Maintain fall precautions Gait and balance retraining Functional training and self-care and home management, including activities of daily living and instrumental activities of daily living Provision of the necessary gait aids and functional adaptive equipment to enhance the patient's a functional confucianist Ensure adequate nutrition and hydration Sleep: Denies any issues pain: Denies any issues Discharge planning: Home with family in 7 to 10 days. I spent greater than 15 minutes for services, including [id number] encounter with the patient, discussion of the case, plan of care, and exam; and [id number] activities, such as reviewing pertinent consultant technology documentation, recent therapy notes, laboratory and radiology studies, and discussion of casewith care team including physician, nursing, protective services case worker, and therapists. More than 50 % of time was spent on patient/family counseling or coordination ofcare. <Ryan Ibrahim MD - Last Filed: 03/24/22 08:51> Assessment/Plan (1) PRES (posterior reversible encephalopathy syndrome): (2) Duodenitis: (3) Metabolic encephalopathy: (4) Hypokalemia: (5) Hyponatremia: (6) Hypomagnesemia: (7) Impaired mobility and activities of daily living: (8) Anemia: Plan 66-year-old female admitted to acute inpatient rehab for strengthening secondaryto acute encephalopathy. She was also found to be hypokalemic and hyponatremic requiring 3% saline infusion. Developed acute duodenitis, questionable small bowel obstruction which was managed with NG tube. * Doing very well in therapy. Walking functional distances without assistive device, able to do 15 stairs, independent with transfers and bed mobility. Will attempt to set up with patient's daughter early next week, likely home thereafter * Will clarify Steri-Strip removal with Dr. Napoles. * Blood glucose levels are marginally improved. Patient education Pressure ulcer prophylaxis; encourage mobilization, frequent postural changes, pressure-relief techniques DVT prophylaxis: Pharmacological prophylaxis is contraindicated. Bilateral lower extremity SCDs Encourage deep breathing exercise incentive spirometry. Monitor bladder. Toileting schedule. Continue current bladder management, with scans as needed and CIC if needed. Start bowel care program every day to obtain continence, prevent ileus. Maintain fall precautions Gait and balance retraining Functional training and self-care and home management, including activities of daily living and instrumental activities of daily living Provision of the necessary gait aids and functional adaptive equipment to enhance the patient's a functional confucianist Ensure adequate nutrition and hydration Sleep: Denies any issues pain: Denies any issues Discharge planning: Home with family next week I spent greater than 15 minutes for services, including [id number] encounter with the patient, discussion of the case, plan of care, and exam; and [id number] activities, such as reviewing pertinent consultant technology documentation, recent therapy notes, laboratory and radiology studies, and discussion of case with care team including physician, nursing, protective services case worker, and therapists. More than 50 % of time was spent on patient/family counseling or coordination ofcare. Plan: I completed a substantive portion of this encounter, the medical decision makingportion of this note in its entirety, including Allied health note review, nursing note review, consultant technology note review, discussion with nursing and case management, and more than 50% of my time was spent on counseling and coordination of care, time spent 17 minutes Patient was personally seen by me, Dr. Ibrahim, on the day of encounter, reviewed the history and the relevant portions of the chart, including current orders, allied health and consultant technology notes, labs/imaging and performed freedman elements of exam and I formulated the plan of care and facilitated the medical decision making. Blood sugar control improved as well. Likely to home 03/27 Nearly standby assist independent. Documented By: Ronel Haney APRN 03/23/22 1 235 Signed By: <Electronically signed by HEMANTH Haney> 03/23/22 1246 <Electronically signed by Ryan Ibrahim MD> 03/24/22 1848 [facility] Work Phone: 1(810) 703-793412-14-2022 Progress note Author Ryan Ibrahim [facility] March 21, 2022 3:43pm Note Date/Time March 21, 2022 11:53am [facility] [address] [place] [address] Physiatry(Rehab) Progress Note Signed Patient: Guera Sanchez MR#: [id number] : 1955 Acct:[id number] Age/Sex: 66 / F Adm Date: 2 Loc: Room: [address] [place] [address] Type: ADM IN Attending Dr: Ryan Ibrahim MD Copies to: ~ <Ronel Haney APRN - Last Filed: 03/21/22 12:19> Date of Service: 03/21/2022 Subjective <Ronel Haney APRN - Last Filed: 03/21/22 12:19> Subjective Narrative: Ms. Sanchez is a 66 year old female with PMH of anxiety, depression, type 2 diabetes, hyperlipidemia hypertension, IBS hypothyroidism, WALES, who presents to acute inpatient rehab for strengthening. Apparently she underwent a left total shoulder replacement by Dr. Napoles on 03/06/2022 after she fractured left proximal humerus. Procedure was uncomplicated and she was able to be discharged home on 03/08/2022. Patient's friend found her very confused and called the EMS. In the ER she was found to be restless and agitated. She was tachycardic in the 120s with prolonged QT intervals on EKG. Hypokalemic at 2.5, sodium critically low at 122. She did receive a bolus of normal saline followed by 30% normal saline bolus. She was also started on broad-spectrum IV antibiotics for leukocytosis and fever and admitted to the hospital for further management. While inpatient, she was on Precedex drip more agitation and combativeness. Neurology was consulted. Suspect metabolic encephalopathy related to hyponatremia. MRI demonstrated chronic small vessel changes, findings which maybe seen with mild posterior reversible encephalopathy. Neurology recommends repeat MRI in 1.5 to 3 months to ensure resolution. EEG was also abnormal demonstrating generalized rhythmic delta activity without evidence of seizure. Neurology recommends aggressive BP management and keeping BP less than 130 systolically at all times. Blood cultures were negative thus antibiotics were discontinued. Her encephalopathy is gradually improving. During hospital stay patient did develop acute abdominal pain with nausea and vomiting. CT of the abdomen is notable for dilated duodenum without transition point was inflammatory changes suspicious for duodenitis, cholelithiasis with suspicion for acute cholecystitis. GI consulted. Ultrasound of the gallbladderwas obtained and demonstrated cholelithiasis without acute cholecystitis. NG was inserted and conservative medical management was recommended. Interval history: Patient seen and examined in her room this morning. She is resting in bed comfortably, not in any acute distress. She is alert and oriented, talkative and pleasant. Reports feeling much better . No GI discomfort, nausea or vomiting. She is moving formed bowels. Pain in the left shoulder is mild to moderate, relieved well with just Tylenol. She is pleased with her therapy performance and feels she is getting stronger. Today she ambulated 124 feet without assistive device contact-guard assist. Required standby to contact-guard assist for bed mobility and transfers. Recent blood work reviewed. Review of Systems <Ronel Haney APRN - Last Filed: 03/21/22 12:19> Constitutional Constitutional: Reports fatigue and Reports weakness Eyes Eyes: Reports system reviewed and no additional complaints, except as documented ENT Ears, Nose, Mouth, and Throat: Reports system reviewed and no additional complaints, except as documented Cardiovascular Cardiovascular: Reports system reviewed and no additional complaints, except as documented Respiratory Respiratory: Reports system reviewed and no additional complaints, except as documented Gastrointestinal Gastrointestinal: Denies bloating, Reports constipation and Denies nausea Genitourinary Genitourinary: Reports system reviewed and no additional complaints, except as documented Musculoskeletal Musculoskeletal: Reports system reviewed and no additional complaints, except asdocumented Integumentary/Breasts Skin/Breast: Reports system reviewed and no additional complaints, except as documented Neurologic Neurologic: Reports as per HPI and Reports weakness Psychiatric Psychiatric: Reports system reviewed and no additional complaints, except as documented Endocrine Endocrine: Reports system reviewed and no additional complaints, except as documented and Reports fatigue Hematologic/Lymphatic Hematologic/Lymphatic: Reports system reviewed and no additional complaints, except as documented Allergic/Immunologic Allergic/Immunologic: Reports system reviewed and no additional complaints, except as documented Exam <Ronel Haney APRN - Last Filed: 03/21/22 12:19> Physical Exam Vital Signs: Temp Pulse Resp BP Pulse Ox O2 Del Method 98.0 F 95 H 17 145/69 H 98 Room Air 03/21/22 05:00 03/21/22 05:00 03/21/22 05:00 03/21/22 05:00 03/21/22 05:00 03/21/22 05:00 Narrative: Const General: cooperative, comfortable, no acute distress Nutritional Appearance: Normal body habitus Orientation: alert, awake and oriented, delayed processing Limitations: None HEENT Head: normal to inspection, normocephalic and atraumatic Ears: hearing grossly normal bilaterally Nose: external nose normal Face and sinus: normal facial exam Eyes General: appearance normal, both eyes and all related structures Pupils: PERRL EOM: EOM intact bilaterally Neck Neck: normal visual inspection, full ROM, no lymphadenopathy and trachea midline Neck mass: No Chest Chest palpation & inspection: normal inspection of the chest Resp Effort & Inspection: normal respiratory effort, able to speak in complete sentences, symmetric chest movement and no cough Auscultation: clear to auscultation bilaterally Cardio Jugular venous pressure: no JVD Rhythm: Regular rhythm and rate GI: Inspection: normal to inspection Palpation: soft, no hepatosplenomegaly and nontender Auscultation: normal bowel sounds Musc Cervical Spine: normal cervical lordosis and cervical ROM normal Thoracic/Lumbar Spine: thoraco-lumbar ROM normal Skin General: no rashes or lesions noted Neuro General: patient alert, oriented x3, moves all extremities Cranial Nerves: PERRL Speech: speech normal Extrem Other: Left shoulder incision, approximated with Steri-Strips. Scant bloody drainage on the strips, no erythema or swelling. Psych Appearance: grossly normal Mental Status: WNL Mood: congruent mood Affect: normal affect Speech and Movement: speech and movement normal Attitude: cooperative Insight: Limited Judgment: Limited Objective <Ronel Haney APRN - Last Filed: 03/21/22 12:19> Labs CBC & Chem 7: 03/20/22 08:31 03/21/22 05:57 Labs: Laboratory Results - last 24 hr 03/20/22 03/20/22 03/20/22 11:51 16:07 20:29 PHA Creatinine Clear Sodium Potassium Chloride Carbon Dioxide Anion Gap BUN Creatinine Est GFR ( Amer) Est GFR (Non-Af Amer) Glucose POC Glucose 297 166 289 POC Glucose Comment Glu2: cleaned meter Glu2: cleaned meter Calcium Urine Color Urine Appearance Urine pH Ur Specific [place] Urine Protein Urine Glucose (UA) Urine Ketones Urine Occult Blood Urine Nitrite Urine Bilirubin Urine Urobilinogen Ur Leukocyte Esterase 03/20/22 03/21/22 03/21/22 23:36 05:57 06:28 PHA Creatinine Clear 81.46 Sodium 132 L Potassium 4.1 Chloride 96 Carbon Dioxide 27.7 Anion Gap 12.4 BUN 13 Creatinine 0.80 Est GFR ( Amer) > 60 Est GFR (Non-Af Amer) > 60 Glucose 192 H POC Glucose 213 POC Glucose Comment Calcium 8.6 Urine Color Yellow Urine Appearance Clear Urine pH 7.0 Ur Specific [place] 1.005 Urine Protein Negative Urine Glucose (UA) Normal Urine Ketones Negative Urine Occult Blood Negative Urine Nitrite Negative Urine Bilirubin Negative Urine Urobilinogen Normal Ur Leukocyte Esterase Negative 03/21/22 11:23 PHA Creatinine Clear Sodium Potassium Chloride Carbon Dioxide Anion Gap BUN Creatinine Est GFR ( Amer) Est GFR (Non-Af Amer) Glucose POC Glucose 250 POC Glucose Comment Glu2: cleaned meter Calcium Urine Color Urine Appearance Urine pH Ur Specific [place] Urine Protein Urine Glucose (UA) Urine Ketones Urine Occult Blood Urine Nitrite Urine Bilirubin Urine Urobilinogen Ur Leukocyte Esterase Medications and Allergies Allergies and Active Meds: Allergies No Known Allergies Allergy (Verified 02/20/22 14:07) Active Medications Generic Name Dose Route Start Last Admin Trade Name Adrianne PRN Reason Stop Dose Admin Acetaminophen 500 mg 03/19/22 16:38 03/21/22 06:02 Acetaminophen 500 Mg Tablet PO 03/19/23 16:37 500 mg Q4H PRN Administration Pain Al Hydrox/Mg Hydrox/Simethicone 30 ml 03/19/22 16:38 Mag Hydrox/Al Hydrox/Simeth 30 Ml Udc PO 03/19/23 16:37 Q4H PRN Indigestion Amlodipine Besylate 10 mg 03/20/22 09:00 03/21/22 09:46 Amlodipine 10 Mg Tablet PO 03/20/23 08:59 10 mg DAILY RYAN Administration Atorvastatin Calcium 10 mg 03/20/22 21:00 03/20/22 20:43 Atorvastatin 10 Mg Tablet PO 03/20/23 20:59 10 mg QPM RYAN Administration Bisacodyl 10 mg 03/19/22 16:38 Bisacodyl 10 Mg Supp.Rect OK 03/19/23 16:37 DAILY PRN Constipation Citalopram Hydrobromide 80 mg 03/20/22 14:00 03/20/22 14:16 Citalopram 40 Mg Tablet PO 03/20/23 13:59 80 mg QAM RYAN Administration Cyclobenzaprine HCl 5 mg 03/20/22 13:57 03/20/22 20:43 Cyclobenzaprine 5 Mg Tablet PO 03/19/23 16:34 5 mg TID PRN Administration Muscle Spasm Docusate Sodium 100 mg 03/19/22 16:38 Docusate 100 Mg Capsule PO 03/19/23 16:37 BID PRN Constipation Docusate Sodium 283 mg 03/19/22 16:38 Docusate Enema 283 Mg/5 Ml Enema OK 03/19/23 16:37 DAILY PRN Constipation Folic Acid 1 mg 03/20/22 09:00 03/21/22 09:46 Folic Acid 1 Mg Tablet PO 03/20/23 08:59 1 mg DAILY RYAN Administration Gabapentin 600 mg 03/19/22 21:00 03/21/22 09:46 Gabapentin 600 Mg Tablet PO 03/19/23 20:59 600 mg BID RYAN Administration Insulin Aspart 0 units 03/19/22 17:00 03/21/22 09:44 Insulin Aspart 300 Units/3 Ml Insuln.Pen SUBCUT 03/19/23 16:59 2 units TID.WM.HS RYAN Administration Protocol Insulin Glargine 5 units 03/21/22 08:00 03/21/22 09:45 Insulin Glargine 300 Units/3 Ml Insuln.Pen SUBCUT 03/21/23 07:59 5 units DAILY.WITH.BKFAST RYAN Administration Irbesartan 300 mg 03/20/22 09:00 03/21/22 09:46 Irbesartan 300 Mg Tablet PO 03/20/23 08:59 300 mg DAILY RYAN Administration Lactulose 30 gm 03/19/22 16:38 Lactulose 20 Gm/30 Ml Udc PO 03/19/23 16:37 DAILY PRN Constipation Lansoprazole 30 mg 03/20/22 09:00 03/20/22 08:23 Lansoprazole Solutab *Nf* 30 Mg Tab.Rap.Dr PO 03/20/23 08:59 30 mg DAILY RYAN Administration Liothyronine Sodium 10 mcg 03/20/22 09:00 03/21/22 09:47 Liothyronine 5 Mcg Tablet PO 03/20/23 08:59 10 mcg DAILY RYAN Administration Loratadine 10 mg 03/20/22 09:00 03/21/22 09:47 Loratadine 10 Mg Tablet PO 03/20/23 08:59 10 mg DAILY RYAN Administration Magnesium Oxide 400 mg 03/19/22 21:00 03/21/22 09:46 Magnesium Oxide 400 Mg Tablet PO 03/19/23 20:59 400 mg BID RYAN Administration Melatonin 5 mg 03/19/22 22:00 03/20/22 20:43 Melatonin 5 Mg Tablet PO 03/19/23 21:59 5 mg QHS RYAN Administration Metformin HCl 850 mg 03/20/22 17:00 03/21/22 09:46 Metformin 850 Mg Tablet PO 03/20/23 16:59 850 mg BID.WITH.MEALS RYAN Administration Nicotine 1 each 03/20/22 09:00 03/20/22 08:18 Nicotine Patch 21 Mg/24hr 1 Each Patch.Td24 TRANSDERML 03/20/23 08:59 Not Given DAILY [facility] Non-Formulary Medication 40 mg 03/19/22 21:00 Pantoprazole PO 03/19/23 20:59 BID RYAN Ondansetron HCl 4 mg 03/19/22 18:17 Ondansetron Odt 4 Mg Tab.Rapdis PO 03/19/23 16:44 Q6H PRN Nausea Pioglitazone HCl 45 mg 03/20/22 09:00 03/21/22 09:46 Pioglitazone 45 Mg Tablet PO 03/20/23 08:59 45 mg DAILY RYAN Administration Quetiapine Fumarate 100 mg 03/19/22 22:00 03/20/22 20:43 Quetiapine Fumarate 100 Mg Tablet PO 03/19/23 21:59 100 mg QHS RYAN Administration Sennosides 2 tab 03/20/22 12:00 Sennosides 8.6 Mg Tablet PO 03/20/23 11:59 DAILY@12 PRN If no BM in 2 days Sodium Chloride 1 gm 03/19/22 22:00 03/21/22 09:47 Sodium Chloride 1 Gm Tablet PO 03/19/23 21:59 1 gm TID RYAN Administration Sodium Chloride 0 ml 03/19/22 16:38 Sodium Chloride 0.9 % 10 Ml Syringe IV-PUSH 03/19/23 16:37 PRN PRN Flush Thiamine HCl 100 mg 03/20/22 09:00 03/21/22 09:46 Thiamine 100 Mg Tablet PO 03/20/23 08:59 100 mg DAILY RYAN Administration Assessment/Plan <Ronel Haney, DRY CLEANING CHECKER - Last Filed: 03/21/22 12:19> Assessment/Plan (1) PRES (posterior reversible encephalopathy syndrome): Code(s): I67.83 - Posterior reversible encephalopathy syndrome Status: Acute (2) Duodenitis: Code(s): K29.80 - Duodenitis without bleeding Status: Acute (3) Metabolic encephalopathy: Code(s): G93.41 - Metabolic encephalopathy Status: Acute (4) Hypokalemia: Code(s): E87.6 - Hypokalemia Status: Acute (5) Hyponatremia: Code(s): E87.1 - Hypo-osmolality and hyponatremia Status: Acute (6) Hypomagnesemia: Code(s): E83.42 - Hypomagnesemia Status: Acute (7) Impaired mobility and activities of daily living: Code(s): Z74.09 - Other reduced mobility; Z78.9 - Other specified health status Status: Acute (8) Anemia: Code(s): D64.9 - Anemia, unspecified Status: Acute Plan 66-year-old female admitted to acute inpatient rehab for strengthening secondaryto acute encephalopathy. She was also found to be hypokalemic and hyponatremic requiring 3% saline infusion. Developed acute duodenitis, questionable small bowel obstruction which was managed with NG tube. * Glucose levels remain in 200s. Metformin just restarted yesterday. She was getting regular diet, changed to carb consistent. Continue SSI, trend sugars. * Labs reviewed. Hyponatremia is improving, Na 132 today. * She offers no complaints. Left shoulder incision without signs of infection. Pain is tolerable. * Cognitive status is improving. * Vital signs are stable, no fever chills. Patient education Pressure ulcer prophylaxis; encourage mobilization, frequent postural changes, pressure-relief techniques DVT prophylaxis: Pharmacological prophylaxis is contraindicated. Bilateral lower extremity SCDs Encourage deep breathing exercise incentive spirometry. Monitor bladder. Toileting schedule. Continue current bladder management, with scans as needed and CIC if needed. Start bowel care program every day to obtain continence, prevent ileus. Maintain fall precautions Gait and balance retraining Functional training and self-care and home management, including activities of daily living and instrumental activities of daily living Provision of the necessary gait aids and functional adaptive equipment to enhance the patient's a functional confucianist Ensure adequate nutrition and hydration Sleep: Denies any issues pain: Denies any issues Discharge planning: Home with family in 7 to 10 days. I spent greater than 15 minutes for services, including [id number] encounter with the patient, discussion of the case, plan of care, and exam; and [id number] activities, such as reviewing pertinent consultant technology documentation, recent therapy notes, laboratory and radiology studies, and discussion of case with care team including physician, nursing, protective services case worker, and therapists. More than 50 % of time was spent on patient/family counseling or coordination ofcare. <Ryan Ibrahim MD - Last Filed: 03/21/22 15:43> Assessment/Plan (1) PRES (posterior reversible encephalopathy syndrome): (2) Duodenitis: (3) Metabolic encephalopathy: (4) Hypokalemia: (5) Hyponatremia: (6) Hypomagnesemia: (7) Impaired mobility and activities of daily living: (8) Anemia: Plan: I completed a substantive portion of this encounter, the medical decision makingportion of this note in its entirety, including Allied health note review, nursing note review, consultant technology note review, discussion with nursing and case management, and more than 50% of my time was spent on counseling and coordination of care, time spent 21 minutes Patient was personally seen by me, Dr. Ibrahim, on the day of encounter, reviewed the history and the relevant portions of the chart, including current orders, allied health and consultant technology notes, labs/imaging and performed freedman elements of exam and I formulated the plan of care and facilitated the medical decision making. Documented By: Ronel Haney APRN 03/21/22 1 143 Signed By: <Electronically signed by HEMANTH Haney> 03/21/22 1219 <Electronically signed by Ryan Ibrahim MD> 03/21/22 1543 [facility] Work Phone: [phone]) 341-139812-14-2022 Consult note Author Jan Wood [facility] March 21, 2022 12:43pm Note Date/Time March 20, 2022 3:12pm [facility] [address] [place] [address] Hospitalist Consult Note Signed Patient: Guera Sanchez MR#: [id number] : 1955 Acct:[id number] Age/Sex: 66 / F Adm Date: 2 Loc: Room: [address] [place] [address] Type: ADM IN Attending Dr: Ryan Ibrahim MD Copies to: MD Ash Tran MD Joseph Riley, MD Linda Obika, DRY CLEANING CHECKER~ HPI DATE OF CONSULTATION: 03/20/22 REQUESTING PROVIDER: Ryan Ibrahim Consult Narrative Reason for Consult: DM 2, HTN, anxiety/depression, hypothyroidism, AMS, left humerus fracture HPI: Guera Sanchez is a 66-year-old female with a past medical history of type 2 diabetes, hypertension, hypothyroidism, anxiety/depression, and recent left shoulder fracture status post closed ORIF on 03/06/2022 who presented to the ER via EMS with altered mental status. Upon arrival to the ER she was unable to answer any questions her EKG showed sinus tachycardia with a heart rate of 128 bpm and a prolonged QTC of 572. She was also noted to have electrolyte derangements with sodium 122, potassium 2.5 and magnesium 0.8. While she was inthe emergency department she had to runs of torsades administered 3 g of magnesium with resolution. Her drug screen was positive for marijuana. His CBCwas elevated at 12.8 and she was started on broad-spectrum antibiotics with Zosyn and vancomycin. Head CT was nonacute for any acute intracranial process. Chest x-ray did not show any acute cardiopulmonary abnormalities. Urinalysis was noninfectious. She was administered 3% saline for hyponatremia and 40 mEq of potassium for hypokalemia. She was also very combative in the ER and had to be put on a Precedex drip and admitted to the ICU. Neurology was consulted. During her hospital stay she was evaluated by neurology and an MRI of the brain showed chronic vessel ischemic changes with findings of possible mild posterior reversible encephalopathy. Initial blood cultures 04/09 grew gram-positive bacilli which was thought to be a contaminant with discontinuation of antibiotics on 03/29. Second set of blood cultures from 03/11/2022 did not grow anything to date. If video EEG showed generalized rhythmic delta activity. It was also thought that polypharmacy was a contributory factor to altered mental status and her gabapentin and cyclobenzaprine were put on hold. Her mentation continued to improve during the course of her hospital stay and was thought to be near baseline by discharge. Her hospital course was also complicated by abdominal pain with nausea and vomiting with mild leukocytosis.She was initiallyput on an NG tube and kept n.p.o. She was thought to have postop ileus. CT abdomen and pelvis showed dilated duodenum with inflammatory changes adjacent toduodenum possibly presenting duodenitis. She was started on ertapenem and completed a full 7-day course. She was seen and evaluated by gastroenterology who recommended PPIs 40 mg twice daily x8 weeks, avoid NSAIDs and serial H&H. He is to for guaiac was positive and her aspirin was put on hold. Her hemoglobin was stable throughout hospital stay and at discharge. She was also seen and evaluated by physical and Occupational Therapy and recommended for inpatient rehabilitation. The hospitalist team has been consulted for medical management of diabetes, hypertension and all other comorbidities. Patient seen and evaluated at bedside. Alert awake and oriented x3, reports still has some slight short-term memory loss, however she feels so much better than when she was first admitted. She reports tolerating physical therapy well,left arm is intact in sling and pain is usually well controlled with Tylenol. Denies chest pain, shortness of breath. No abdominal pain, nausea vomiting or diarrhea. No urinary symptoms, no headaches or dizziness, afebrile. Vital signs reviewed, heart rate slightly tachycardic. Sodium lower than yesterday at129. Asymptomatic we will continue to monitor. Review of Systems Review of Systems Review of systems: 10 point review of systems obtained, negative unless noted in the HPI below [facility] [facility] Attestation Statement: The following information was validated with the patient. Vaccinated for COVID-19?: Unknown Medical History Anxiety Depression Diabetes mellitus, type 2 Hypercholesteremia Hypertension Irritable bowel disease Thyroid disease Wears hearing aid in both ears Surgical History History of cataract surgery OU History of kyphoplasty History of lumbar discectomy Family History Father Depression Anxiety IBS (irritable bowel syndrome) Mother Depression Anxiety Lung cancer Social History Smoking Status: Former smoker Tobacco Type: cigarettes Substance Use Type: None Substance Abuse Comment: Medical marijuana several times a day. Social History Comments: grandson lives with patient Meds Medications and Allergies Allergies No Known Allergies Allergy (Verified 02/20/22 14:07) Home Medications atorvastatin 10 mg tablet 10 mg PO QAM cholesterol 02/20/22 [History Confirmed 03/19/22] citalopram 40 mg tablet 80 mg PO QAM 02/20/22 [History Confirmed 03/19/22] cyclobenzaprine 10 mg tablet 10 mg PO TID PRN Muscle Spasm 02/20/22 [History Confirmed 03/19/22] gabapentin 600 mg tablet 600 mg PO BID pain 02/20/22 [History Confirmed 03/19/22] hydrochlorothiazide 12.5 mg tablet 12.5 mg PO DAILY 02/20/22 [History Confirmed 03/19/22] irbesartan 300 mg tablet 300 mg PO DAILY HTN 02/20/22 [History Confirmed 03/19/22] liothyronine 5 mcg tablet 10 mcg PO DAILY thyroid disorder 02/20/22 [History Confirmed 03/19/22] pioglitazone 45 mg tablet (Actos) 45 mg PO DAILY 02/20/22 [History Confirmed 03/19/22] quetiapine 100 mg tablet 100 mg PO QHS 02/20/22 [History Confirmed 03/19/22] sodium chloride 1 gram tablet 1,000 mg PO TID 03/06/22 [History Confirmed 03/19/22] ondansetron 4 mg disintegrating tablet 4 mg PO Q6H #10 tabs 03/07/22 [Rx Confirmed 03/19/22] oxycodone-acetaminophen 5 mg-325 mg tablet (Percocet) 1 tab PO Q4H PRN Pain 5 days #20 tabs 03/07/22 [Rx Confirmed 03/19/22] cetirizine 10 mg tablet (Zyrtec) 10 mg PO DAILY 03/08/22 [History Confirmed 03/19/22] metformin 850 mg tablet 850 mg PO TID 03/08/22 [History Confirmed 03/19/22] amlodipine 10 mg tablet 10 mg PO DAILY #0 tabs 12/11/22 [Rx Confirmed 03/19/22] folic acid 1 mg tablet 1 mg PO DAILY #0 tabs 03/18/22 [Rx Confirmed 03/19/22] magnesium oxide 400 mg (241.3 mg magnesium) tablet 400 mg PO BID #0 tabs 03/18/22 [Rx Confirmed 03/19/22] melatonin 5 mg tablet 5 mg PO QHS #0 tabs 03/18/22 [Rx Confirmed 03/19/22] nicotine 21 mg/24 hr daily transdermal patch 1 ea transdermal DAILY #0 ea 03/18/22 [Rx Confirmed 03/19/22] pantoprazole 40 mg tablet,delayed release 40 mg PO BID 14 days #28 tabs 03/18/22[Rx Confirmed 03/19/22] thiamine HCl (vitamin B1) 100 mg tablet 100 mg PO DAILY #0 tabs 03/18/22 [Rx Confirmed 03/19/22] Active Medications: Active Medications Generic Name Dose Route Start Last Admin Trade Name Freq PRN Reason Stop Dose Admin Acetaminophen 500 mg 03/19/22 16:38 03/20/22 11:40 Acetaminophen 500 Mg Tablet PO 03/19/23 16:37 500 mg Q4H PRN Administration Pain Al Hydrox/Mg Hydrox/Simethicone 30 ml 03/19/22 16:38 Mag Hydrox/Al Hydrox/Simeth 30 Ml Udc PO 03/19/23 16:37 Q4H PRN Indigestion Amlodipine Besylate 10 mg 03/20/22 09:00 03/20/22 08:19 Amlodipine 10 Mg Tablet PO 03/20/23 08:59 10 mg DAILY RYAN Administration Atorvastatin Calcium 10 mg 03/20/22 21:00 Atorvastatin 10 Mg Tablet PO 03/20/23 20:59 QPM YRAN Bisacodyl 10 mg 03/19/22 16:38 Bisacodyl 10 Mg Supp.Rect OK 03/19/23 16:37 DAILY PRN Constipation Citalopram Hydrobromide 80 mg 03/20/22 14:00 03/20/22 14:16 Citalopram 40 Mg Tablet PO 03/20/23 13:59 80 mg QAM RYAN Administration Cyclobenzaprine HCl 5 mg 03/20/22 13:57 Cyclobenzaprine 5 Mg Tablet PO 03/19/23 16:34 TID PRN Muscle Spasm Docusate Sodium 100 mg 03/19/22 16:38 Docusate 100 Mg Capsule PO 03/19/23 16:37 BID PRN Constipation Docusate Sodium 283 mg 03/19/22 16:38 Docusate Enema 283 Mg/5 Ml Enema OK 03/19/23 16:37 DAILY PRN Constipation Folic Acid 1 mg 03/20/22 09:00 03/20/22 08:20 Folic Acid 1 Mg Tablet PO 03/20/23 08:59 1 mg DAILY RYAN Administration Gabapentin 600 mg 03/19/22 21:00 03/20/22 08:20 Gabapentin 600 Mg Tablet PO 03/19/23 20:59 600 mg BID RYAN Administration Hydrochlorothiazide 12.5 mg 03/20/22 09:00 03/20/22 08:19 Hydrochlorothiazide 12.5 Mg Tablet PO 03/20/23 08:59 12.5 mg DAILY RYAN Administration Insulin Aspart 0 units 03/19/22 17:00 03/20/22 12:35 Insulin Aspart 300 Units/3 Ml Insuln.Pen SUBCUT 03/19/23 16:59 3 units TID.WM.HS RYAN Administration Protocol Irbesartan 300 mg 03/20/22 09:00 03/20/22 08:20 Irbesartan 300 Mg Tablet PO 03/20/23 08:59 300 mg DAILY RYAN Administration Lactulose 30 gm 03/19/22 16:38 Lactulose 20 Gm/30 Ml Udc PO 03/19/23 16:37 DAILY PRN Constipation Lansoprazole 30 mg 03/20/22 09:00 03/20/22 08:23 Lansoprazole Solutab *Nf* 30 Mg Tab.Rap.Dr PO 03/20/23 08:59 30 mg DAILY RYAN Administration Liothyronine Sodium 10 mcg 03/20/22 09:00 03/20/22 08:19 Liothyronine 5 Mcg Tablet PO 03/20/23 08:59 10 mcg DAILY RYAN Administration Loratadine 10 mg 03/20/22 09:00 03/20/22 08:19 Loratadine 10 Mg Tablet PO 03/20/23 08:59 10 mg DAILY RYAN Administration Magnesium Oxide 400 mg 03/19/22 21:00 03/20/22 08:19 Magnesium Oxide 400 Mg Tablet PO 03/19/23 20:59 400 mg BID RYAN Administration Melatonin 5 mg 03/19/22 22:00 03/19/22 21:10 Melatonin 5 Mg Tablet PO 03/19/23 21:59 5 mg QHS RYAN Administration Metformin HCl 850 mg 03/20/22 17:00 Metformin 850 Mg Tablet PO 03/20/23 16:59 BID.WITH.MEALS [facility] Nicotine 1 each 03/20/22 09:00 03/20/22 08:18 Nicotine Patch 21 Mg/24hr 1 Each Patch.Td24 TRANSDERML 03/20/23 08:59 Not Given DAILY RYAN Non-Formulary Medication 40 mg 03/19/22 21:00 Pantoprazole PO 03/19/23 20:59 BID RYAN Ondansetron HCl 4 mg 03/19/22 18:17 Ondansetron Odt 4 Mg Tab.Rapdis PO 03/19/23 16:44 Q6H PRN Nausea Pioglitazone HCl 45 mg 03/20/22 09:00 03/20/22 08:19 Pioglitazone 45 Mg Tablet PO 03/20/23 08:59 45 mg DAILY RYAN Administration Quetiapine Fumarate 100 mg 03/19/22 22:00 03/19/22 21:10 Quetiapine Fumarate 100 Mg Tablet PO 03/19/23 21:59 100 mg QHS RYAN Administration Sennosides 2 tab 03/20/22 12:00 Sennosides 8.6 Mg Tablet PO 03/20/23 11:59 DAILY@12 PRN If no BM in 2 days Sodium Chloride 1 gm 03/19/22 22:00 03/20/22 14:16 Sodium Chloride 1 Gm Tablet PO 03/19/23 21:59 1 gm TID RYAN Administration Sodium Chloride 0 ml 03/19/22 16:38 Sodium Chloride 0.9 % 10 Ml Syringe IV-PUSH 03/19/23 16:37 PRN PRN Flush Thiamine HCl 100 mg 03/20/22 09:00 03/20/22 08:19 Thiamine 100 Mg Tablet PO 03/20/23 08:59 100 mg DAILY RYAN Administration Exam Physical Exam Vital Signs: Temp Pulse Resp BP Pulse Ox O2 Del Method 98.6 F 68 16 125/66 99 Room Air 03/20/22 05:00 03/20/22 05:00 03/20/22 05:00 03/20/22 05:00 03/20/22 05:00 03/20/22 07:30 Narrative: CONST- Appears well -developed and well nourished No acute distress. HEAD - Normocephalic and atraumatic EENT-Sclera nonicteric and conjunctive are nonerythemic, moist oral mucosa, pharynx clear NECK-Supple, no cervical lymphadenopathy CARDIAC-normal rate, regular rhythm, normal S1 & S2. PULM- Clear without wheeze or rhonchi, RA, no accessory muscle use or cough noted ABD - Soft. Bowel sounds are normal. No distention No tenderness EXTREM-no edema BLE calves nontender. Left upper extremity intact in sling SKIN- W/D good turgor MS- MAEX4 spontaneously with equal with equal strength NEURO- A&Ox3 speech clear and tongue midline, equal facial symmetry no focal motor deficits PSYCH-Mood, affect and behavior appropriate Results Lab Results Labs: Laboratory Results - last 72 hr 03/20/22 11:51: POC Glucose 297, POC Glucose Comment Glu2: cleaned meter 03/20/22 08:31: PHA Creatinine Clear 72.41, Sodium 129 L, Potassium 3.9, Chloride 94 L, Carbon Dioxide 26.0, Anion Gap 12.9, BUN 12, Creatinine 0.90, Est GFR ( Amer) > 60, Est GFR (Non-Af Amer) > 60, Glucose 229 H, Calcium 8.3, Total Bilirubin 0.6, AST 17, ALT 14, Alkaline Phosphatase 129 H, Total Protein 6.1, Albumin 2.8 L, Globulin 3.3, Albumin/Globulin Ratio 0.8, Prealbumin 13.7 L 03/20/22 08:31: Corrected WBC 8.0, Uncorrected WBC Count 8.0, RBC 3.08 L, Hgb 9.4 L, Hct 28.2 L, MCV 91.5, MCH 30.6, MCHC 33.5, RDW 15.9 H, Plt Count 294, MPV8.3, Neut % (Auto) N/A, Lymph % (Auto) N/A, [place] % (Auto) N/A, Eos % (Auto) N/A,Baso % (Auto) N/A, Nucleat RBC Rel Count N/A, Neut # (Auto) N/A, Lymph # (Auto) N/A, [place] # (Auto) N/A, Eos # (Auto) N/A, Baso # (Auto) N/A, Band Neutrophils % 2, Lymphocytes % 18, Monocytes % 6, Eosinophils % 1, Metamyelocytes % 2 H, Myelocytes % 3 H, Segmented Neutrophils 68, Toxic Granulation Slight, Platelet Estimate Normal, Giant Platelets 3, Plt Morphology Comment Normal, RBC Morphology N/A, Polychromasia Slight, Anisocytosis Slight, Microcytosis Slight 03/20/22 08:04: POC Glucose 274, POC Glucose Comment Glu2: cleaned meter 03/19/22 20:27: POC Glucose 253, POC Glucose Comment Glu2: cleaned meter 03/19/22 16:28: POC Glucose 152 A&P - Hospitalist Assessment/Plan (1) PRES (posterior reversible encephalopathy syndrome): (2) Impaired mobility and activities of daily living: (3) Anemia: (4) Hyponatremia: Plan Posterior reversible encephalopathy syndrome Left proximal humerus fracture S/PE ORIF on 03/06 Impaired mobility and activities of daily living ?Plan of care for rehabilitation, PT/OT, bowel regimen, DVT prophylaxis per PM&Rteam. Any concerns about incision site to be deferred to orthopedic surgeon. Duodenitis without bleed Normocytic anemia ?Hemoglobin stable at 9.4 ?Stool for guaiac was positive while inpatient, will need to follow-up for possible endoscopy upon discharge from rehabilitation ?Continue PPIs for total of 8 weeks per GI recommendations Chronic conditions: 1. Hyponatremia likely due to hydrochlorothiazide?we will hold for now and continue with sodium chloride tablets. Continue to monitor 1.? Diabetes type?uncontrolled. Start Long acting insulin, SSI, Accu-Cheks before meals and at bedtime.? Home Pioglitazone & Metformin 2.? Hypertension, hyperlipidemia - BP improved- amlodipine, atorvastatin, irbesartan 3.? Anxiety/ Depression- Citalopram, quetiapine 4.? Hypothyroid- liothyronine, TSH 1.62 Documented By: Denice Buckner APRN 03/20/22 1444 Signed By: <Electronically signed by HEMANTH Buckner> 03/20/22 1659 <Electronically signed by Jan Wood MD> 03/21/22 1243 [facility] Work Phone: [phone]) 383-298612-13-2022 History and physical note Author Ryan Ibrahim [facility] March 20, 2022 6:45pm Note Date/Time March 19, 2022 2:32pm [facility] [address] [place] [address] Physiatry (Rehab) H&P Signed Patient: Guera Sanchez MR#: [id number] : 1955 Acct:[id number] Age/Sex: 66 / F Adm Date: 2 Loc: Room: [address] [place] [address] Type: ADM IN Attending Dr: Ryan Ibrahim MD Copies to: MD Ronel De Souza APRN Joseph Riley, MD~ <Ronel Haney APRN - Last Filed: 03/19/22 15:30> Date of Service: 03/19/2022 HPI <Ronel Haney APRN - Last Filed: 03/19/22 15:30> History of Present Illness: Ms. Sanchez is a 66 year old female with PMH of anxiety, depression, type 2 diabetes, hyperlipidemia hypertension, IBS hypothyroidism, WALES, who presents to acute inpatient rehab for strengthening. Apparently she underwent a left total shoulder replacement by Dr. Napoles on 03/06/2022 after she fractured left proximal humerus. Procedure was uncomplicated and she was able to be discharged home on 03/08/2022. Patient's friend found her very confused and called the EMS. In the ER she was found to be restless and agitated. She was tachycardic in the 120s with prolonged QT intervals on EKG. Hypokalemic at 2.5, sodium critically low at 122. She did receive a bolus of normal saline followed by 30% normal saline bolus. She was also started on broad-spectrum IV antibiotics for leukocytosis and fever and admitted to the hospital for further management. While inpatient, she was on Precedex drip more agitation and combativeness. Neurology was consulted. Suspect metabolic encephalopathy related to hyponatremia. MRI demonstrated chronic small vessel changes, findings which maybe seen with mild posterior reversible encephalopathy. Neurology recommends repeat MRI in 1.5 to 3 months to ensure resolution. EEG was also abnormal demonstrating generalized rhythmic delta activity without evidence of seizure. Neurology recommends aggressive BP management and keeping BP less than 130 systolically at all times. Blood cultures were negative thus antibiotics were discontinued. Her encephalopathy is gradually improving. During hospital stay patient did develop acute abdominal pain with nausea and vomiting. CT of the abdomen is notable for dilated duodenum without transition point was inflammatory changes suspicious for duodenitis, cholelithiasis with suspicion for acute cholecystitis. GI consulted. Ultrasound of the gallbladderwas obtained and demonstrated cholelithiasis without acute cholecystitis. NG was inserted and conservative medical management was recommended. On rehab admission, patient is alert and oriented. She is able to answer orientation questions, although the processing is slightly delayed. She does not remember how or when she ended up in the hospital, nor the circumstances leading to admission. She denies any pain or discomfort currently. She does endorse generalized fatigue and weakness as well as poor endurance. She has not been nauseous or vomiting. She does state that she hasn't moved herbowels in 2 to 3 days but denies any abdominal discomfort with this. Left shoulder incision without signs of infection, wound is well approximated with Steri-Strips. She denies any shortness of breath or chest pain, no palpitations. No dizzinessor lightheadedness. PMFSH <Ronel Haney APRN - Last Filed: 03/19/22 15:30> Medical History Anxiety Depression Diabetes mellitus, type 2 Hypercholesteremia Hypertension Irritable bowel disease Thyroid disease Wears hearing aid in both ears Surgical History History of cataract surgery OU History of kyphoplasty History of lumbar discectomy Family History Father Depression Anxiety IBS (irritable bowel syndrome) Mother Depression Anxiety Lung cancer Social History Smoking Status: Current every day smoker Tobacco Type: cigarettes Substance Use Type: Unknown Substance Abuse Comment: Medical marijuana several times a day. Social History Comments: grandson lives with patient Review of Systems <Ronel Haney APRN - Last Filed: 03/19/22 15:30> Review of Systems All other systems reviewed & are negative unless noted below or in HPI Constitutional Constitutional: Reports fatigue and Reports weakness Eyes Eyes: Reports system reviewed and no additional complaints, except as documented ENT Ears, Nose, Mouth, and Throat: Reports system reviewed and no additional complaints, except as documented Cardiovascular Cardiovascular: Reports system reviewed and no additional complaints, except as documented Respiratory Respiratory: Reports system reviewed and no additional complaints, except as documented Gastrointestinal Gastrointestinal: Denies bloating, Reports constipation and Denies nausea Genitourinary Genitourinary: Reports system reviewed and no additional complaints, except as documented Musculoskeletal Musculoskeletal: Reports system reviewed and no additional complaints, except asdocumented Integumentary/Breasts Skin/Breast: Reports system reviewed and no additional complaints, except as documented Neurologic Neurologic: Reports as per HPI Psychiatric Psychiatric: Reports system reviewed and no additional complaints, except as documented Endocrine Endocrine: Reports system reviewed and no additional complaints, except as documented Hematologic/Lymphatic Hematologic/Lymphatic: Reports system reviewed and no additional complaints, except as documented Allergic/Immunologic Allergic/Immunologic: Reports system reviewed and no additional complaints, except as documented Meds <Ronel Haney APRN - Last Filed: 03/19/22 15:30> Medications and Allergies Allergies No Known Allergies Allergy (Verified 02/20/22 14:07) Home and Active Meds: Home Medications atorvastatin 10 mg tablet 10 mg PO QAM cholesterol 02/20/22 [History Confirmed 03/08/22] citalopram 40 mg tablet 80 mg PO QAM 02/20/22 [History Confirmed 03/08/22] cyclobenzaprine 10 mg tablet 10 mg PO TID PRN Muscle Spasm 02/20/22 [History Confirmed 03/08/22] gabapentin 600 mg tablet 1,200 mg PO BID pain 02/20/22 [History Confirmed 03/08/22] hydrochlorothiazide 12.5 mg tablet 12.5 mg PO DAILY 02/20/22 [History Confirmed 03/08/22] irbesartan 300 mg tablet 300 mg PO DAILY HTN 02/20/22 [History Confirmed 03/08/22] liothyronine 5 mcg tablet 10 mcg PO DAILY thyroid disorder 02/20/22 [History Confirmed 03/08/22] pioglitazone 45 mg tablet (Actos) 45 mg PO DAILY 02/20/22 [History Confirmed 03/08/22] quetiapine 100 mg tablet 100 mg PO QHS 02/20/22 [History Confirmed 03/08/22] sodium chloride 1 gram tablet 1,000 mg PO TID 03/06/22 [History Confirmed 03/08/22] cephalexin 500 mg capsule 500 mg PO Q8H #6 caps 03/07/22 [Rx Confirmed 03/08/22] ondansetron 4 mg disintegrating tablet 4 mg PO Q6H #10 tabs 03/07/22 [Rx Confirmed 03/08/22] oxycodone-acetaminophen 5 mg-325 mg tablet (Percocet) 1 tab PO Q4H PRN Pain 5 days #20 tabs 03/07/22 [Rx Confirmed 03/08/22] cetirizine 10 mg tablet (Zyrtec) 10 mg PO DAILY 03/08/22 [History Confirmed 03/08/22] metformin 850 mg tablet 850 mg PO TID 03/08/22 [History Confirmed 03/08/22] potassium chloride 20 mEq tablet,extended release(part/cryst) (Klor-Con M) 20 meq PO QID 03/08/22 [History Confirmed 03/08/22] aspirin 81 mg tablet 81 mg PO DAILY 03/11/22 [History Confirmed 03/11/22] pantoprazole 40 mg tablet,delayed release 40 mg PO BID 14 days #28 tabs 03/18/22[Rx] Exam <Ronel Haney APRN - Last Filed: 03/19/22 15:30> Physical Exam Narrative: Const General: cooperative, comfortable, no acute distress Nutritional Appearance: Normal body habitus Orientation: alert, awake and oriented, delayed processing Limitations: None HEENT Head: normal to inspection, normocephalic and atraumatic Ears: hearing grossly normal bilaterally Nose: external nose normal Face and sinus: normal facial exam Eyes General: appearance normal, both eyes and all related structures Pupils: PERRL EOM: EOM intact bilaterally Neck Neck: normal visual inspection, full ROM, no lymphadenopathy and trachea midline Neck mass: No Chest Chest palpation & inspection: normal inspection of the chest Resp Effort & Inspection: normal respiratory effort, able to speak in complete sentences, symmetric chest movement and no cough Auscultation: clear to auscultation bilaterally Cardio Jugular venous pressure: no JVD Rhythm: Regular rhythm and rate GI: Inspection: normal to inspection Palpation: soft, no hepatosplenomegaly and nontender Auscultation: normal bowel sounds Musc Cervical Spine: normal cervical lordosis and cervical ROM normal Thoracic/Lumbar Spine: thoraco-lumbar ROM normal Skin General: no rashes or lesions noted Neuro General: patient alert, oriented x3, moves all extremities Cranial Nerves: PERRL Speech: speech normal Extrem Other: Left shoulder incision, approximated with Steri-Strips. Scant bloody drainage on the strips, no erythema or swelling. Psych Appearance: grossly normal Mental Status: WNL Mood: congruent mood Affect: normal affect Speech and Movement: speech and movement normal Attitude: cooperative Insight: Limited Judgment: Limited Functional Status <Ronel Haney APRN - Last Filed: 03/19/22 15:30> Prior Level of Function Narrative: Is independent Current Level of Function Narrative: Independent with bed mobility and transfers. Ambulating 35 feet without assistive device, contact-guard assist. <Ryan Ibrahim MD - Last Filed: 03/20/22 18:45> Individualized Plan of Care Plan of Care: Individualized Overall Plan of Care: Admit Date/Time: March 19, 2022 Expected LOS: 2 weeks Expected Discharge Destination: Home Rehabilitation [facility]: 02.1 Primary Diagnosis: Metabolic encephalopathy To have patient become more independent and to return home. Medical/ Functional Prognosis: Good Anticipated Functional Outcomes/Goals and Interventions: 1.Therapy Functional Outcome/Goal: Anticipate independent bed mobility Anticipated interventions: Physician management, PT, OT, FIELD SUPPORT REPRESENTATIVE, , Dietitian, Rehab Nursing, Case management 2. Therapy Functional Outcome/Goal: Anticipate independent transfers Anticipated interventions: Physician management, PT, OT, FIELD SUPPORT REPRESENTATIVE, Case management, Dietitian, Rehab Nursing 3. Therapy Functional Outcome/Goal: Anticipate independent ambulation Anticipated interventions: Physician management, PT, OT, FIELD SUPPORT REPRESENTATIVE Case management, Dietitian, Rehab Nursing 4.Therapy Functional Outcome/Goal: Anticipate independent self care Anticipated interventions: Physician management, PT, OT, FIELD SUPPORT REPRESENTATIVE, Case management, Dietitian, Rehab Nursing 5.Therapy Functional Outcome/Goal: Anticipate independent functional communication and swallowing Anticipated interventions: Physician management, PT, OT, FIELD SUPPORT REPRESENTATIVE, Case management, Dietitian, Rehab Nursing Required Therapy PT: 1 hour per day at least 5 days per week with additional therapy on as needed basis. Comments: PT to improve pt's strength, endurance, bed mobility, transfers (sit-stand), standing balance, gait quality on level surfaces and stairs, coordination and functional ADL skills. Will also work to improve pt's safety awareness during transfers and ambulation. OT: 1 hour per day at least 5 days per week with additional therapy on as needed basis. Comments: OT for basic ADL re-training (bathing, dressing, toileting, continence, grooming, feeding, transferring), to increase activity tolerance and functional mobility and to evaluate for adaptive and assistive devices. Will work to improve pt's endurance and educate pt on fall prevention and energy conservation techniques-pacing strategies and proper breathing techniques during functional tasks. Speech/Language - 1 hour per day at least 5 days per week with additional therapy on as needed basis. Comments: FIELD SUPPORT REPRESENTATIVE to evaluate and treat patient?s cognition, language and communication skills, assess swallow function. Other: Dietitian, Rehab nursing, Wound, P&O, Neuropsychology as needed RATIONALE FOR IRF ADMISSION: Patient has both medical and functional complexities that require 24 hour daily monitoring and intervention from Occupational Health Specialist as well as other consulting physicians including internal medicine as well as 24 hour daily taper and floater nursing - for medical safe / optimal management. Patient requires interdisciplinary therapy team rehabilitation care including OT, PT, FIELD SUPPORT REPRESENTATIVE, SW, Psychology, Rehab Nursing, requires and can tolerate at least 3 hours of daily OT and PT therapy at least 5 days weekly. The following medical conditions significantly impact the rehabilitation process and are being addressed daily and can not be managed at home or in a lesser intense medical setting: Refer to above problem oriented plan of care Assessment/Plan <Ronel Haney APRN - Last Filed: 03/19/22 15:30> (1) PRES (posterior reversible encephalopathy syndrome): Code(s): I67.83 - Posterior reversible encephalopathy syndrome Status: Acute (2) Duodenitis: Code(s): K29.80 - Duodenitis without bleeding Status: Acute (3) Metabolic encephalopathy: Code(s): G93.41 - Metabolic encephalopathy Status: Acute (4) Hypokalemia: Code(s): E87.6 - Hypokalemia Status: Acute (5) Hyponatremia: Code(s): E87.1 - Hypo-osmolality and hyponatremia Status: Acute (6) Hypomagnesemia: Code(s): E83.42 - Hypomagnesemia Status: Acute (7) Impaired mobility and activities of daily living: Code(s): Z74.09 - Other reduced mobility; Z78.9 - Other specified health status Status: Acute (8) Anemia: Code(s): D64.9 - Anemia, unspecified Status: Acute Plan 66-year-old female admitted to acute inpatient rehab for strengthening secondary to acute encephalopathy. She was also found to be hypokalemic and hyponatremic requiring 3% saline infusion. Developed acute duodenitis, questionable small bowel obstruction which was managed with NG tube. * Monitor electrolyte levels. Sodium was critically low at 122 on admission, improving, most recently 133 * Hemoglobin low throughout admission, which initially he was thought to be dilutional from intravenous fluid administration. She did end up dropping as low as 7.0. Received 2 units of PRBCs. Lovenox and aspirin were placed on hold. H&H are currently stable at 8.4 and t 24.6. * Her EEG was abnormal showing rhythmic delta activity. Neurology this is mostly secondary to encephalopathy. Recommendations are to keep SBP <130 Patient education Pressure ulcer prophylaxis; encourage mobilization, frequent postural changes, pressure-relief techniques DVT prophylaxis: Pharmacological prophylaxis is contraindicated. Bilateral lower extremity SCDs Encourage deep breathing exercise incentive spirometry. Monitor bladder. Toileting schedule. Continue current bladder management, with scans as needed and CIC if needed. Start bowel care program every day to obtain continence, prevent ileus. Maintain fall precautions Gait and balance retraining Functional training and self-care and home management, including activities of daily living and instrumental activities of daily living Provision of the necessary gait aids and functional adaptive equipment to enhance the patient's a functional confucianist Ensure adequate nutrition and hydration Sleep: Denies any issues pain: Denies any issues Discharge planning: Home with family in 7 to 10 days. I spent greater than 15 minutes for services, including [id number] encounter with the patient, discussion of the case, plan of care, and exam; and [id number] activities, such as reviewing pertinent consultant technology documentation, recent therapy notes, laboratory and radiology studies, and discussion of case with care team including physician, nursing, protective services case worker, and therapists. More than 50 % of time was spent on patient/family counseling or coordination of care. <Ryan Ibrahim MD - Last Filed: 03/20/22 18:45> (1) PRES (posterior reversible encephalopathy syndrome): (2) Duodenitis: (3) Metabolic encephalopathy: (4) Hypokalemia: (5) Hyponatremia: (6) Hypomagnesemia: (7) Impaired mobility and activities of daily living: (8) Anemia: Plan: I completed a substantive portion of this encounter, the medical decision making portion of this note in its entirety, including Allied health note review, nursing note review, consultant technology note review, discussion with nursing and case management, and more than 50% of my time was spent on counseling and coordination of care, time spent 45 minutes Patient was personally seen by me, Dr. Ibrahim, on the day of encounter, reviewed the history and the relevant portions of the chart, including current orders, allied health and consultant technology notes, labs/imaging and performed freedman elements of exam and I formulated the plan of care and facilitated the medical decision making. Documented By: Ronel Haney APRN 03/19/22 1 423 Signed By: <Electronically signed by Ryan Ibrahim MD> 03/20/22 2112 [facility] Work Phone: [phone]) 902-948012-11-2022 Progress note Author Wilian Pearson [facility] March 18, 2022 3:09pm Note Date/Time March 18, 2022 2:38pm [facility] [address] [place] [address] Hospitalist Progress Note Signed Patient: Guera Sanchez MR#: [id number] : 1955 Acct:[id number] Age/Sex: 66 / F Adm Date: 2 Loc: Room: [address] [place] [address] Type: ADM IN Attending Dr: Wilian Pearson MD Copies to: ~ Date of Service: 03/18/2022 Subjective Subjective Narrative: Patient seen and assessed at bedside. She is sitting in her chair and looks comfortable. She states she feels very well today. Notes no new complaints at this time. Exam Physical Exam Vital Signs: Temp Pulse Resp BP Pulse Ox O2 Del Method O2 Flow Rate 97.8 F 104 H 19 116/63 97 Room Air 2 03/18/22 08:00 03/18/22 08:00 03/18/22 08:00 03/18/22 08:00 03/18/22 08:00 03/18/22 08:00 03/09/22 11:00 Narrative: Narrative: Alert, in bed, no distress at rest RRR no abnormal heart tones dimin without wheeze or rhonchi, RA S/NT, hypoactive, obese no edema BLE, calves nontender, Left upper arm dressing in place, left hand edemaNarrative: Objective Lab Results CBC & Chem 7: 03/18/22 06:33 03/18/22 06:33 Meds Allergies and Active Meds Allergies No Known Allergies Allergy (Verified 02/20/22 14:07) Active Meds: Active Medications Generic Name Dose Route Start Last Admin Trade Name Adrianne PRN Reason Stop Dose Admin Acetaminophen 650 mg 03/15/22 02:28 03/17/22 18:38 Acetaminophen 325 Mg Tablet PO 03/15/23 02:27 650 mg Q6H PRN Administration Pain Amlodipine Besylate 10 mg 03/16/22 09:00 03/18/22 08:52 Amlodipine 10 Mg Tablet PO 03/16/23 08:59 10 mg DAILY RYAN Administration Aspirin 81 mg 03/11/22 09:35 03/12/22 13:54 Aspirin 81 Mg Tab.Chew PO 03/11/23 09:34 Not Given DAILY RYAN Atorvastatin Calcium 10 mg 03/10/22 09:00 03/18/22 08:52 Atorvastatin 10 Mg Tablet PO 03/10/23 08:59 10 mg QAM RYAN Administration Citalopram Hydrobromide 80 mg 03/10/22 09:00 03/18/22 08:52 Citalopram 40 Mg Tablet PO 03/10/23 08:59 80 mg QAM RYAN Administration Cyclobenzaprine HCl 10 mg 03/16/22 11:15 Cyclobenzaprine 10 Mg Tablet PO 03/16/23 11:14 TID PRN Muscle Spasm Dextrose 0 gm 03/08/22 18:44 Dextrose 20 % In Water 10 Gm/50 Ml Syringe IV-PUSH 03/08/23 18:43 PRN PRN Hypoglycemia Diphenhydramine HCl 25 mg 03/15/22 11:54 03/15/22 12:07 Diphenhydramine 25 Mg Capsule PO 03/15/23 11:53 25 mg Q6H PRN Administration Itching Folic Acid 1 mg 03/11/22 09:45 03/18/22 08:52 Folic Acid 1 Mg Tablet PO 03/11/23 09:44 1 mg DAILY RYAN Administration Gabapentin 600 mg 03/16/22 21:00 03/18/22 08:52 Gabapentin 600 Mg Tablet PO 03/16/23 20:59 600 mg BID RYAN Administration Glucose 0 gm 03/08/22 18:44 Dextrose 40% Gel 15 Gm Tube PO 12/01/23 18:43 PRN PRN Hypoglycemia Guaifenesin 600 mg 03/15/22 11:54 Guaifenesin 600 Mg Tab.Er.12h PO 03/15/23 11:53 BID PRN Congestion Hydralazine HCl 10 mg 03/08/22 18:31 03/14/22 22:10 Hydralazine 20 Mg/Ml Vial IV-PUSH 03/08/23 18:30 10 mg Q4H PRN Administration if SBP > 185 Hydrochlorothiazide 12.5 mg 03/11/22 09:45 03/18/22 08:52 Hydrochlorothiazide 12.5 Mg Tablet PO 03/11/23 09:44 12.5 mg DAILY RYAN Administration Ertapenem 1 gm in 100 mls @ 200 mls/hr 03/12/22 08:30 03/18/22 08:52 Invanz IV 03/19/22 08:29 200 mls/hr Q24H RYAN Administration Insulin Aspart 0 units 03/08/22 22:00 03/18/22 11:24 Insulin Aspart 300 Units/3 Ml Insuln.Pen SUBCUT 03/08/23 21:59 3 units TID.WM.HS RYAN Administration Protocol Insulin Glargine 5 units 03/11/22 08:00 03/11/22 08:24 Insulin Glargine 300 Units/3 Ml Insuln.Pen SUBCUT 03/11/23 07:59 5 units DAILY.WITH.BKFAST RYAN Administration Irbesartan 300 mg 03/10/22 11:15 03/18/22 08:52 Irbesartan 300 Mg Tablet PO 03/10/23 11:14 300 mg DAILY RYAN Administration Liothyronine Sodium 10 mcg 03/10/22 11:15 03/18/22 08:52 Liothyronine 5 Mcg Tablet PO 03/10/23 11:14 10 mcg DAILY RYAN Administration Loratadine 10 mg 03/17/22 09:00 03/18/22 08:52 Loratadine 10 Mg Tablet PO 03/17/23 08:59 10 mg DAILY RYAN Administration Lorazepam 1 mg 03/08/22 18:24 03/12/22 06:02 Lorazepam 2 Mg/Ml Vial IV-PUSH 09/04/22 18:23 1 mg Q4H PRN Administration Agitation Magnesium Oxide 400 mg 03/13/22 21:00 03/18/22 08:52 Magnesium Oxide 400 Mg Tablet PO 03/13/23 20:59 400 mg BID RYAN Administration Melatonin 5 mg 03/13/22 22:00 03/17/22 22:18 Melatonin 5 Mg Tablet PO 03/13/23 21:59 5 mg QHS RYAN Administration Nicotine 1 each 03/08/22 19:30 03/18/22 08:54 Nicotine Patch 21 Mg/24hr 1 Each Patch.Td24 TRANSDERML 04/18/22 09:01 Not Given DAILY RYAN Ondansetron HCl 4 mg 03/09/22 23:43 03/11/22 19:23 Ondansetron 4 Mg/2 Ml Vial IV 03/09/23 23:42 4 mg Q6H PRN Administration NAUSEA/VOMITING Oxycodone/Acetaminophen 1 tab 03/11/22 09:39 03/11/22 15:20 Oxycodone/Acetaminophen 5-325 Mg Tablet PO 1 tab Q4H PRN Administration Pain Pantoprazole Sodium 40 mg 03/11/22 23:15 03/18/22 08:52 Pantoprazole 40 Mg Vial IV-PUSH 03/11/23 23:14 40 mg BID RYAN Administration Pioglitazone HCl 45 mg 03/17/22 09:00 03/18/22 08:54 Pioglitazone 45 Mg Tablet PO 03/17/23 08:59 45 mg DAILY RYAN Administration Promethazine HCl 12.5 mg 03/11/22 21:18 03/11/22 22:17 Promethazine 25 Mg/Ml Vial IV-PUSH 03/11/23 21:17 12.5 mg Q6H PRN Administration Nausea And Vomiting Quetiapine Fumarate 100 mg 03/10/22 22:00 03/17/22 22:18 Quetiapine Fumarate 100 Mg Tablet PO 03/10/23 21:59 100 mg QHS RYAN Administration Sodium Chloride 0 ml 03/08/22 13:12 03/16/22 20:55 Sodium Chloride 0.9 % 10 Ml Syringe IV-PUSH 03/08/23 13:11 10 ml PRN PRN Administration Flush Sodium Chloride 10 ml 03/08/22 14:18 03/16/22 20:55 Sodium Chloride 0.9 % 10 Ml Vial.Pf INJECTION 03/08/23 14:17 10 ml Q4H PRN Administration Ativan dilution Sodium Chloride 10 ml 03/08/22 18:24 Sodium Chloride 0.9 % 10 Ml Vial.Pf INJECTION 03/08/23 18:23 Q4H PRN Ativan dilution Sodium Chloride 1 gm 03/10/22 14:00 03/18/22 08:52 Sodium Chloride 1 Gm Tablet PO 03/10/23 13:59 1 gm TID RYAN Administration Sodium Chloride 10 ml 03/11/22 21:18 03/17/22 09:35 Sodium Chloride 0.9 % 10 Ml Vial.Pf INJECTION 03/11/23 21:17 10 ml PRN PRN Administration Promethazine Dilution Sodium Chloride 10 ml 03/11/22 23:05 03/18/22 08:52 Sodium Chloride 0.9 % 10 Ml Vial.Pf INJECTION 03/11/23 23:04 10 ml PRN PRN Administration Dilution Sodium Chloride 10 ml 03/11/22 23:05 Sodium Chloride 0.9 % 10 Ml Syringe IV-PUSH 03/11/23 23:04 PRN PRN Flush Thiamine HCl 100 mg 03/11/22 09:45 03/18/22 08:51 Thiamine 100 Mg Tablet PO 03/11/23 09:44 100 mg DAILY RYAN Administration A&P - Hospitalist Assessment/Plan (1) Altered mental status: (2) Hypokalemia: (3) Hyponatremia: (4) Hypomagnesemia: (5) Metabolic encephalopathy: Plan Metabolic encephalopathy?resolved PRES THC use Mental status has significantly improved. ?CT brain -nonacute ?MRI - chronic vessel ischemic changes, findings of possible mild posterior reversible encephalopathy ?CXR nonacute, UDS + THC, normal ETOH, normal NH4, UA noninfectious -Blood culture 03/08 -1 of 2 positive gram positive bacilli, repeat culture 03/11 NGTD- Zosyn initiated on admit DC'd 03/09. Ertapenem x7days with GI concerns as below -neurology following, will need outpatient f/u, -EEG showed generalized rhythmicdelta activity, video EEG done, neurology signed off -polypharmacy could also be contributory- gabapentin and cyclobenzaprine on hold, opiates with recent postop status, psych meds Abdominal Pain, nausea/ vomiting 03/11, resolved Leukocytosis, resolved Duodenitis Ileus postop, resolved -GB ultrasound limited study, cholelithiasis -CT abdomen pelvis dilated duodenum with inflammatory changes adjacent to duodenum possibly representing duodenitis. Cholelithiasis with findings suspicious for acute cholecystitis with gallbladder distention and possible gallbladder wall thickening. CBD dilated at 9 mm. -GI consult appreciated, consider postop ileus -note stool was positive 03/14 -Ertapenem initiated 03/12 with leukocytosis planned x7days (had been on Zosyn 03/08-03/09) -Pantoprazole IV - 40BID x8wks recommended x8wks per GI -Patient did have 1 blood culture of 2 on admission that was positive, has received antibiotic therapy. Second set of cultures remains negative for growthto date. Recommend completing full 7-day course of antibiotic therapy Hypokalemia Hypomagnesemia Hyponatremia, chronic -TSH, cortisol WNL -trend labs, replete as indicated, IVF -hold HCTZ -patient was noted to be on chronic NaCl tabs at home Normocytic anemia, probably dilutional -hgb 9.7 on admit, not recent ortho OR 03/06 ?Stool for guaiac positive, known duodenitis- is on PPI -03/12 transfuse 2 units PRBC with AM Hgb 7.1, trend labs -hold ASA and Enoxaparen Torsades de pointe 2/2 electrolyte abnormalities?in ED Prolonged QT ?EKG in ED with prolonged QTC of 572, trend -echo- EF 65-70%, mild DD, mild Reported ETOH use/ abuse -vitamin therapy -CT abd no parenchymal changes to liver Chronic conditions: 1. Diabetes type?SSI, fingersticks, hold long acting insulin while NPO. Home Pioglitazone & Metformin on hold 2. Hypertension, hyperlipidemia - BP improved- amlodipine, atorvastatin, irbasartan 3. Left shoulder fracture s/p ORIF 03/06- pain control, SCDs for DVT ppx. Nursing to notify Dr Napoles office of hospitalization to determine needs for sutures, follow up imaging, therapy, etc. as she was to follow up 1wk 4. Anxiety/ Depression- Citalopram, quetiapine 5. Hypothyroid- liothyronine, TSH 1.62 DISCHARGE planning- With her current care needs, debility, recent left shoulder surgery, diarrhea, memory concerns of late- she would best be served at acute inpatient rehab given her therapy needs. Plan for discharge to [address] [place] [address] when bed is available Documented By: Wilian Pearson MD 2 [id number] Signed By: <Electronically signed by Wilian Pearson MD> 03/18/22 6550 [facility] Work Phone: [phone]) 521-191312-10-2022 Progress note Author Wilian Pearson [facility] March 17, 2022 4:59pm Note Date/Time March 17, 2022 4:37pm [facility] [address] [place] [address] Hospitalist Progress Note Signed Patient: Guera Sanchez MR#: [id number] : 1955 Acct:[id number] Age/Sex: 66 / F Adm Date: 2 Loc: Room: [address] [place] [address] Type: ADM IN Attending Dr: Wilian Pearson MD Copies to: ~ Date of Service: 03/17/2022 Subjective Subjective Narrative: Patient feels well today. Sitting at the edge of bed eating dinner and looks very comfortable. Patient is tolerating food well, ready for discharge to acuteinpatient rehab whenever a bed is available. Exam Physical Exam Vital Signs: Temp Pulse Resp BP Pulse Ox O2 Del Method O2 Flow Rate 98 F 98 H 19 138/72 97 Room Air 2 03/17/22 05:21 03/17/22 08:00 03/17/22 08:00 03/17/22 08:00 03/17/22 08:00 03/17/22 08:00 03/09/22 11:00 Narrative: Narrative: Alert, in bed, no distress at rest RRR no abnormal heart tones dimin without wheeze or rhonchi, RA S/NT, hypoactive, obese no edema BLE, calves nontender, Left upper arm dressing in place, left hand edemaNarrative: Objective Lab Results CBC & Chem 7: 03/17/22 06:15 03/17/22 06:15 Meds Allergies and Active Meds Allergies No Known Allergies Allergy (Verified 02/20/22 14:07) Active Meds: Active Medications Generic Name Dose Route Start Last Admin Trade Name Freq PRN Reason Stop Dose Admin Acetaminophen 650 mg 03/15/22 02:28 03/17/22 05:32 Acetaminophen 325 Mg Tablet PO 03/15/23 02:27 650 mg Q6H PRN Administration Pain Amlodipine Besylate 10 mg 03/16/22 09:00 03/17/22 09:36 Amlodipine 10 Mg Tablet PO 03/16/23 08:59 10 mg DAILY RYAN Administration Aspirin 81 mg 03/11/22 09:35 03/12/22 13:54 Aspirin 81 Mg Tab.Chew PO 03/11/23 09:34 Not Given DAILY RYAN Atorvastatin Calcium 10 mg 03/10/22 09:00 03/17/22 09:36 Atorvastatin 10 Mg Tablet PO 03/10/23 08:59 10 mg QAM RYAN Administration Citalopram Hydrobromide 80 mg 03/10/22 09:00 03/17/22 09:36 Citalopram 40 Mg Tablet PO 03/10/23 08:59 80 mg QAM RYAN Administration Cyclobenzaprine HCl 10 mg 03/16/22 11:15 Cyclobenzaprine 10 Mg Tablet PO 03/16/23 11:14 TID PRN Muscle Spasm Dextrose 0 gm 03/08/22 18:44 Dextrose 20 % In Water 10 Gm/50 Ml Syringe IV-PUSH 03/08/23 18:43 PRN PRN Hypoglycemia Diphenhydramine HCl 25 mg 03/15/22 11:54 03/15/22 12:07 Diphenhydramine 25 Mg Capsule PO 03/15/23 11:53 25 mg Q6H PRN Administration Itching Folic Acid 1 mg 03/11/22 09:45 03/17/22 09:35 Folic Acid 1 Mg Tablet PO 03/11/23 09:44 1 mg DAILY RYAN Administration Gabapentin 600 mg 03/16/22 21:00 03/17/22 09:36 Gabapentin 600 Mg Tablet PO 03/16/23 20:59 600 mg BID RYAN Administration Glucose 0 gm 03/08/22 18:44 Dextrose 40% Gel 15 Gm Tube PO 03/08/23 18:43 PRN PRN Hypoglycemia Guaifenesin 600 mg 03/15/22 11:54 Guaifenesin 600 Mg Tab.Er.12h PO 03/15/23 11:53 BID PRN Congestion Hydralazine HCl 10 mg 03/08/22 18:31 03/14/22 22:10 Hydralazine 20 Mg/Ml Vial IV-PUSH 03/08/23 18:30 10 mg Q4H PRN Administration if SBP > 185 Hydrochlorothiazide 12.5 mg 03/11/22 09:45 03/17/22 09:36 Hydrochlorothiazide 12.5 Mg Tablet PO 03/11/23 09:44 12.5 mg DAILY RYAN Administration Ertapenem 1 gm in 100 mls @ 200 mls/hr 03/12/22 08:30 03/17/22 09:36 Invanz IV 03/19/22 08:29 200 mls/hr Q24H RYAN Administration Insulin Aspart 0 units 03/08/22 22:00 03/17/22 16:32 Insulin Aspart 300 Units/3 Ml Insuln.Pen SUBCUT 03/08/23 21:59 2 units TID.WM.HS RYAN Administration Protocol Insulin Glargine 5 units 03/11/22 08:00 03/11/22 08:24 Insulin Glargine 300 Units/3 Ml Insuln.Pen SUBCUT 03/11/23 07:59 5 units DAILY.WITH.BKFAST RYAN Administration Irbesartan 300 mg 03/10/22 11:15 03/17/22 09:36 Irbesartan 300 Mg Tablet PO 03/10/23 11:14 300 mg DAILY RYAN Administration Liothyronine Sodium 10 mcg 03/10/22 11:15 03/17/22 09:36 Liothyronine 5 Mcg Tablet PO 03/10/23 11:14 10 mcg DAILY RYAN Administration Loratadine 10 mg 03/17/22 09:00 03/17/22 09:36 Loratadine 10 Mg Tablet PO 03/17/23 08:59 10 mg DAILY RYAN Administration Lorazepam 1 mg 03/08/22 18:24 03/12/22 06:02 Lorazepam 2 Mg/Ml Vial IV-PUSH 09/04/22 18:23 1 mg Q4H PRN Administration Agitation Magnesium Oxide 400 mg 03/13/22 21:00 03/17/22 09:36 Magnesium Oxide 400 Mg Tablet PO 03/13/23 20:59 400 mg BID RYAN Administration Melatonin 5 mg 03/13/22 22:00 03/16/22 21:05 Melatonin 5 Mg Tablet PO 03/13/23 21:59 Not Given QHS RYAN Nicotine 1 each 03/08/22 19:30 03/17/22 09:37 Nicotine Patch 21 Mg/24hr 1 Each Patch.Td24 TRANSDERML 04/18/22 09:01 Not Given DAILY RYAN Ondansetron HCl 4 mg 03/09/22 23:43 03/11/22 19:23 Ondansetron 4 Mg/2 Ml Vial IV 03/09/23 23:42 4 mg Q6H PRN Administration NAUSEA/VOMITING Oxycodone/Acetaminophen 1 tab 03/11/22 09:39 03/11/22 15:20 Oxycodone/Acetaminophen 5-325 Mg Tablet PO 1 tab Q4H PRN Administration Pain Pantoprazole Sodium 40 mg 03/11/22 23:15 03/17/22 09:37 Pantoprazole 40 Mg Vial IV-PUSH 03/11/23 23:14 40 mg BID RYAN Administration Pioglitazone HCl 45 mg 03/17/22 09:00 03/17/22 09:36 Pioglitazone 45 Mg Tablet PO 03/17/23 08:59 45 mg DAILY RYAN Administration Promethazine HCl 12.5 mg 03/11/22 21:18 03/11/22 22:17 Promethazine 25 Mg/Ml Vial IV-PUSH 03/11/23 21:17 12.5 mg Q6H PRN Administration Nausea And Vomiting Quetiapine Fumarate 100 mg 03/10/22 22:00 03/16/22 21:05 Quetiapine Fumarate 100 Mg Tablet PO 03/10/23 21:59 Not Given QHS RYAN Sodium Chloride 0 ml 03/08/22 13:12 03/16/22 20:55 Sodium Chloride 0.9 % 10 Ml Syringe IV-PUSH 03/08/23 13:11 10 ml PRN PRN Administration Flush Sodium Chloride 10 ml 03/08/22 14:18 03/16/22 20:55 Sodium Chloride 0.9 % 10 Ml Vial.Pf INJECTION 03/08/23 14:17 10 ml Q4H PRN Administration Ativan dilution Sodium Chloride 10 ml 03/08/22 18:24 Sodium Chloride 0.9 % 10 Ml Vial.Pf INJECTION 03/08/23 18:23 Q4H PRN Ativan dilution Sodium Chloride 1 gm 03/10/22 14:00 03/17/22 16:32 Sodium Chloride 1 Gm Tablet PO 03/10/23 13:59 1 gm TID RYAN Administration Sodium Chloride 10 ml 03/11/22 21:18 03/17/22 09:35 Sodium Chloride 0.9 % 10 Ml Vial.Pf INJECTION 03/11/23 21:17 10 ml PRN PRN Administration Promethazine Dilution Sodium Chloride 10 ml 03/11/22 23:05 03/15/22 09:06 Sodium Chloride 0.9 % 10 Ml Vial.Pf INJECTION 03/11/23 23:04 10 ml PRN PRN Administration Dilution Sodium Chloride 10 ml 03/11/22 23:05 Sodium Chloride 0.9 % 10 Ml Syringe IV-PUSH 03/11/23 23:04 PRN PRN Flush Thiamine HCl 100 mg 03/11/22 09:45 03/17/22 09:36 Thiamine 100 Mg Tablet PO 03/11/23 09:44 100 mg DAILY RYAN Administration A&P - Hospitalist Assessment/Plan (1) Altered mental status: (2) Hypokalemia: (3) Hyponatremia: (4) Hypomagnesemia: (5) Metabolic encephalopathy: Plan Metabolic encephalopathy?resolved PRES THC use ?CT brain -nonacute ?MRI - chronic vessel ischemic changes, findings of possible mild posterior reversible encephalopathy ?CXR nonacute, UDS + THC, normal ETOH, normal NH4, UA noninfectious -Blood culture 03/08 -1 of 2 positive gram positive bacilli, repeat culture 03/11 NGTD- Zosyn initiated on admit DC'd 03/09. Ertapenum x7days with GI concerns as below -neurology following, will need outpatient f/u, -EEG showed generalized rhythmicdelta activity, video EEG done, neurology signed off -polypharmacy could also be contributory- gabapentin and cyclobenzaprine on hold, opiates with recent postop status, psych meds Abdominal Pain, nausea/ vomiting 03/11, resolved Leukocytosis, resolved Duodenitis Ileus postop, resolved -GB ultrasound limited study, cholelithiasis -CT abdomen pelvis dilated duodenum with inflammatory changes adjacent to duodenum possibly representing duodenitis. Cholelithiasis with findings suspicious for acute cholecystitis with gallbladder distention and possible gallbladder wall thickening. CBD dilated at 9 mm. -GI consult appreciated, consider postop ileus -note stool was positive 03/14 -Ertapenem initiated 03/12 with leukocytosis planned x7days (had been on Zosyn 03/08-03/09) -Pantoprazole IV - 40BID x8wks recommended x8wks per GI -Patient did have 1 blood culture of 2 on admission that was positive, has received antibiotic therapy. Second set of cultures remains negative for growthto date. Recommend completing full 7-day course of antibiotic therapy Hypokalemia Hypomagnesemia Hyponatremia, chronic -TSH, cortisol WNL -trend labs, replete as indicated, IVF -hold HCTZ -patient was noted to be on chronic NaCl tabs at home Normocytic anemia, probably dilutional -hgb 9.7 on admit, not recent ortho OR 03/06 ?Stool for guaiac positive, known duodenitis- is on PPI -03/12 transfuse 2 units PRBC with AM Hgb 7.1, trend labs -hold ASA and Enoxaparen Torsades de pointe 2/2 electrolyte abnormalities?in ED Prolonged QT ?EKG in ED with prolonged QTC of 572, trend -echo- EF 65-70%, mild DD, mild Reported ETOH use/ abuse -vitamin therapy -CT abd no parenchymal changes to liver Chronic conditions: 1. Diabetes type?SSI, fingersticks, hold long acting insulin while NPO. Home Pioglitazone & Metformin on hold 2. Hypertension, hyperlipidemia - BP improved- amlodipine, atorvastatin, irbasartan 3. Left shoulder fracture s/p ORIF 03/06- pain control, SCDs for DVT ppx. Nursing to notify Dr Napoles office of hospitalization to determine needs for sutures, follow up imaging, therapy, etc. as she was to follow up 1wk 4. Anxiety/ Depression- Citalopram, quetiapine 5. Hypothyroid- liothyronine, TSH 1.62 DISCHARGE planning- ongoing plan for hopeful DC to SNF around [place], [place]. With her current care needs, debility, recent left shoulder surgery, diarrhea, memory concerns of late- she would best be served at acute inpatient rehab given her therapy needs. Plan for discharge to here at [facility] when bed is available Documented By: Wilian Pearson MD 2 [id number] Signed By: <Electronically signed by Wilian Pearson MD> 03/17/22 6827 [facility] Work Phone: [phone]) 492-706312-09-2022 Progress note Author Wilian Pearson [facility] March 16, 2022 9:25pm Note Date/Time March 16, 2022 1 1:53am [facility] [address] [place] [address] Hospitalist Progress Note Signed Patient: Guera Sanchez MR#: [id number] : 1955 Acct:[id number] Age/Sex: 66 / F Adm Date: 2 Loc: Room: [address] [place] [address] Type: ADM IN Attending Dr: Wilian Pearson MD Copies to: ~ Date of Service: 03/16/2022 Subjective Subjective Narrative: Patient seen and examined. Worked with therapy today. No complaints. Still with some liquid stool and heartburn symptoms, appetite has improved. Exam Physical Exam Vital Signs: Temp Pulse Resp BP Pulse Ox O2 Del Method O2 Flow Rate 98.2 F 85 17 134/64 98 Room Air 2 03/16/22 04:00 03/16/22 04:00 03/16/22 04:00 03/16/22 04:00 03/16/22 04:00 03/16/22 04:00 03/09/22 11:00 Narrative: Alert, in bed, no distress at rest RRR no abnormal heart tones dimin without wheeze or rhonchi, RA S/NT, hypoactive, obese no edema BLE, calves nontender, Left upper arm dressing in place, left hand edema Objective Lab Results CBC & Chem 7: 03/16/22 05:19 03/16/22 05:19 Microbiology Results Microbiology 03/11/22 05:43 Blood - Right Hand Blood Culture - Final NO GROWTH 5 DAYS 03/11/22 05:40 Blood - Right Forearm Blood Culture - Final NO GROWTH 5 DAYS Meds Allergies and Active Meds Allergies No Known Allergies Allergy (Verified 02/20/22 14:07) Active Meds: Active Medications Generic Name Dose Route Start Last Admin Trade Name Freq PRN Reason Stop Dose Admin Acetaminophen 650 mg 03/15/22 02:28 03/16/22 04:16 Acetaminophen 325 Mg Tablet PO 03/15/23 02:27 650 mg Q6H PRN Administration Pain Amlodipine Besylate 10 mg 03/16/22 09:00 03/16/22 09:28 Amlodipine 10 Mg Tablet PO 03/16/23 08:59 10 mg DAILY RYAN Administration Aspirin 81 mg 03/11/22 09:35 03/12/22 13:54 Aspirin 81 Mg Tab.Chew PO 03/11/23 09:34 Not Given DAILY RYAN Atorvastatin Calcium 10 mg 03/10/22 09:00 03/12/22 13:54 Atorvastatin 10 Mg Tablet PO 03/10/23 08:59 Not Given QAM RYAN Citalopram Hydrobromide 80 mg 03/10/22 09:00 03/16/22 09:28 Citalopram 40 Mg Tablet PO 03/10/23 08:59 80 mg QAM RYAN Administration Cyclobenzaprine HCl 10 mg 03/16/22 11:15 Cyclobenzaprine 10 Mg Tablet PO 03/16/23 11:14 TID PRN Muscle Spasm Dextrose 0 gm 03/08/22 18:44 Dextrose 20 % In Water 10 Gm/50 Ml Syringe IV-PUSH 03/08/23 18:43 PRN PRN Hypoglycemia Diphenhydramine HCl 25 mg 03/15/22 11:54 03/15/22 12:07 Diphenhydramine 25 Mg Capsule PO 03/15/23 11:53 25 mg Q6H PRN Administration Itching Folic Acid 1 mg 03/11/22 09:45 03/12/22 13:54 Folic Acid 1 Mg Tablet PO 03/11/23 09:44 Not Given DAILY RYAN Gabapentin 600 mg 03/16/22 21:00 Gabapentin 600 Mg Tablet PO 03/16/23 20:59 BID RYAN Glucose 0 gm 03/08/22 18:44 Dextrose 40% Gel 15 Gm Tube PO 03/08/23 18:43 PRN PRN Hypoglycemia Guaifenesin 600 mg 03/15/22 11:54 Guaifenesin 600 Mg Tab.Er.12h PO 03/15/23 11:53 BID PRN Congestion Hydralazine HCl 10 mg 03/08/22 18:31 03/14/22 22:10 Hydralazine 20 Mg/Ml Vial IV-PUSH 03/08/23 18:30 10 mg Q4H PRN Administration if SBP > 185 Hydrochlorothiazide 12.5 mg 03/11/22 09:45 03/11/22 09:47 Hydrochlorothiazide 12.5 Mg Tablet PO 03/11/23 09:44 12.5 mg DAILY RYAN Administration Sodium Chloride 1,000 mls @ 75 mls/hr 03/11/22 09:15 03/14/22 23:45 0.9% Sodium Chloride 1,000 Ml IV 03/11/23 09:14 Not Given .[id number] RYAN Ertapenem 1 gm in 100 mls @ 200 mls/hr 03/12/22 08:30 03/16/22 09:29 Invanz IV 03/19/22 08:29 200 mls/hr Q24H RYAN Administration Insulin Aspart 0 units 03/08/22 22:00 03/16/22 09:29 Insulin Aspart 300 Units/3 Ml Insuln.Pen SUBCUT 03/08/23 21:59 Not Given TID.WM.HS RYAN Protocol Insulin Glargine 5 units 03/11/22 08:00 03/11/22 08:24 Insulin Glargine 300 Units/3 Ml Insuln.Pen SUBCUT 03/11/23 07:59 5 units DAILY.WITH.BKFAST RYAN Administration Irbesartan 300 mg 03/10/22 11:15 03/16/22 09:28 Irbesartan 300 Mg Tablet PO 03/10/23 11:14 300 mg DAILY RYAN Administration Liothyronine Sodium 10 mcg 03/10/22 11:15 03/16/22 09:28 Liothyronine 5 Mcg Tablet PO 03/10/23 11:14 10 mcg DAILY RYAN Administration Loratadine 10 mg 03/17/22 09:00 Loratadine 10 Mg Tablet PO 03/17/23 08:59 DAILY RYAN Lorazepam 1 mg 03/08/22 18:24 03/12/22 06:02 Lorazepam 2 Mg/Ml Vial IV-PUSH 09/04/22 18:23 1 mg Q4H PRN Administration Agitation Magnesium Oxide 400 mg 03/13/22 21:00 03/16/22 09:28 Magnesium Oxide 400 Mg Tablet PO 03/13/23 20:59 400 mg BID RYAN Administration Melatonin 5 mg 03/13/22 22:00 03/15/22 21:33 Melatonin 5 Mg Tablet PO 03/13/23 21:59 5 mg QHS RYAN Administration Nicotine 1 each 03/08/22 19:30 03/16/22 09:29 Nicotine Patch 21 Mg/24hr 1 Each Patch.Td24 TRANSDERML 04/18/22 09:01 Not Given DAILY RYAN Ondansetron HCl 4 mg 03/09/22 23:43 03/11/22 19:23 Ondansetron 4 Mg/2 Ml Vial IV 03/09/23 23:42 4 mg Q6H PRN Administration NAUSEA/VOMITING Oxycodone/Acetaminophen 1 tab 03/11/22 09:39 03/11/22 15:20 Oxycodone/Acetaminophen 5-325 Mg Tablet PO 1 tab Q4H PRN Administration Pain Pantoprazole Sodium 40 mg 03/11/22 23:15 03/16/22 09:30 Pantoprazole 40 Mg Vial IV-PUSH 03/11/23 23:14 40 mg BID RYAN Administration Pioglitazone HCl 45 mg 03/17/22 09:00 Pioglitazone 45 Mg Tablet PO 03/17/23 08:59 DAILY RYAN Promethazine HCl 12.5 mg 03/11/22 21:18 03/11/22 22:17 Promethazine 25 Mg/Ml Vial IV-PUSH 03/11/23 21:17 12.5 mg Q6H PRN Administration Nausea And Vomiting Quetiapine Fumarate 100 mg 03/10/22 22:00 03/15/22 21:33 Quetiapine Fumarate 100 Mg Tablet PO 03/10/23 21:59 100 mg QHS RYAN Administration Sodium Chloride 0 ml 03/08/22 13:12 03/15/22 08:15 Sodium Chloride 0.9 % 10 Ml Syringe IV-PUSH 03/08/23 13:11 10 ml PRN PRN Administration Flush Sodium Chloride 10 ml 03/08/22 14:18 03/12/22 08:43 Sodium Chloride 0.9 % 10 Ml Vial.Pf INJECTION 03/08/23 14:17 10 ml Q4H PRN Administration Ativan dilution Sodium Chloride 10 ml 03/08/22 18:24 Sodium Chloride 0.9 % 10 Ml Vial.Pf INJECTION 03/08/23 18:23 Q4H PRN Ativan dilution Sodium Chloride 1 gm 03/10/22 14:00 03/16/22 09:28 Sodium Chloride 1 Gm Tablet PO 03/10/23 13:59 1 gm TID RYAN Administration Sodium Chloride 10 ml 03/11/22 21:18 03/14/22 21:31 Sodium Chloride 0.9 % 10 Ml Vial.Pf INJECTION 03/11/23 21:17 10 ml PRN PRN Administration Promethazine Dilution Sodium Chloride 10 ml 03/11/22 23:05 03/15/22 09:06 Sodium Chloride 0.9 % 10 Ml Vial.Pf INJECTION 03/11/23 23:04 10 ml PRN PRN Administration Dilution Sodium Chloride 10 ml 03/11/22 23:05 Sodium Chloride 0.9 % 10 Ml Syringe IV-PUSH 03/11/23 23:04 PRN PRN Flush Thiamine HCl 100 mg 03/11/22 09:45 03/12/22 13:55 Thiamine 100 Mg Tablet PO 03/11/23 09:44 Not Given DAILY RYAN A&P - Hospitalist Assessment/Plan (1) Altered mental status: (2) Hypokalemia: (3) Hyponatremia: (4) Hypomagnesemia: (5) Metabolic encephalopathy: Plan Metabolic encephalopathy?resolved PRES THC use ?CT brain -nonacute ?MRI - chronic vessel ischemic changes, findings of possible mild posterior reversible encephalopathy ?CXR nonacute, UDS + THC, normal ETOH, normal NH4, UA noninfectious -Blood culture 03/08 -1 of 2 positive gram positive bacilli, repeat culture 03/11 NGTD- Zosyn initiated on admit DC'd 03/09. Ertapenum x7days with GI concerns as below -neurology following, will need outpatient f/u, -EEG showed generalized rhythmicdelta activity, video EEG done, neurology signed off -polypharmacy could also be contributory- gabapentin and cyclobenzaprine on hold, opiates with recent postop status, psych meds Abdominal Pain, nausea/ vomiting 03/11, resolved Leukocytosis, resolved Duodenitis Ileus postop, resolved -GB ultrasound limited study, cholelithiasis -CT abdomen pelvis dilated duodenum with inflammatory changes adjacent to duodenum possibly representing duodenitis. Cholelithiasis with findings suspicious for acute cholecystitis with gallbladder distention and possible gallbladder wall thickening. CBD dilated at 9 mm. -GI consult appreciated, consider postop ileus -note stool was positive 03/14 -Ertapenem initiated 03/12 with leukocytosis planned x7days (had been on Zosyn 03/08-03/09) -Pantoprazole IV - 40BID x8wks recommended x8wks per GI -Patient did have 1 blood culture of 2 on admission that was positive, has received antibiotic therapy. Second set of cultures remains negative for growthto date. Recommend completing full 7-day course of antibiotic therapy Hypokalemia Hypomagnesemia Hyponatremia, chronic -TSH, cortisol WNL -trend labs, replete as indicated, IVF -hold HCTZ -patient was noted to be on chronic NaCl tabs at home Normocytic anemia, probably dilutional -hgb 9.7 on admit, not recent ortho OR 03/06 ?Stool for guaiac positive, known duodenitis- is on PPI -03/12 transfuse 2 units PRBC with AM Hgb 7.1, trend labs -hold ASA and Enoxaparen Torsades de pointe 2/2 electrolyte abnormalities?in ED Prolonged QT ?EKG in ED with prolonged QTC of 572, trend -echo- EF 65-70%, mild DD, mild Reported ETOH use/ abuse -vitamin therapy -CT abd no parenchymal changes to liver Chronic conditions: 1. Diabetes type?SSI, fingersticks, hold long acting insulin while NPO. Home Pioglitazone & Metformin on hold 2. Hypertension, hyperlipidemia - BP improved- amlodipine, atorvastatin, irbasartan 3. Left shoulder fracture s/p ORIF 03/06- pain control, SCDs for DVT ppx. Nursing to notify Dr Napoles office of hospitalization to determine needs for sutures, follow up imaging, therapy, etc. as she was to follow up 1wk 4. Anxiety/ Depression- Citalopram, quetiapine 5. Hypothyroid- liothyronine, TSH 1.62 DISCHARGE planning- ongoing plan for hopeful DC to SNF around [facility]. With her current care needs, debility, recent left shoulder surgery, diarrhea, memory concerns of late- she would best be served at SNF- this could be local or in [place]. If the daughter chooses to take her home after rehab at SNF this could be further addressed with ongoing improvement Attending attestation: Patient was personally seen by me on the day of encounter. I reviewed her history and performed freedman elements of exam and formulated the plan of care and confirmed the nurse practitioner's note above. Documented By: TANIYA Adames 2 1153 Signed By: <Electronically signed by TANIYA Hull> 03/16/22 1258 <Electronically signed by Wilian Pearson MD> 03/16/22 2702 [facility] Work Phone: 1(143) 141-314012-09-2022 Progress note Author Marcelino Townsend [facility] March 16, 2022 9:43am Note Date/Time March 16, 2022 8 :36am [facility] [address] [place] [address] Neurology Progress Note Signed with Johnny Patient: Guera Sanchez MR#: [id number] : 1955 Acct:[id number] Age/Sex: 66 / F Adm Date: 2 Loc: Room: [address] [place] [address] Type: ADM IN Attending Dr: Wilian Pearson MD Copies to: ~ ADDENDUM1 Subjective: Patient is awake alert and talkative this morning. She feels well. NO acute events overnight. NO seizures overnight per her or nursing staff. EEG has just been disconnected and pt is sitting up in the chair and eating breakfast. Addendum Documented By: Marcelino Townsend DO 03/16/22942 Addendum Signed By: <Electronically signed by Marcelino Townsend DO> 03/16/22942 Date of Service: 03/16/2022 Exam Physical Exam Vital Signs: Temp Pulse Resp BP Pulse Ox O2 Del Method O2 Flow Rate 98.2 F 85 17 134/64 98 Room Air 2 03/16/22 04:00 03/16/22 04:00 03/16/22 04:00 03/16/22 04:00 03/16/22 04:00 03/16/22 04:00 03/09/22 11:00 Narrative: GENERAL EXAM: * Constitutional - Patient appears well nourished and well groomed * Patient is alert and oriented x3. * Apical is regular rate and rhythm.? No murmur was appreciated. No edema noted. Pulses are normal * Lung sounds are clear to auscultation * Abdomen is soft with normal bowel sounds NEURO EXAM: * Attention span/concentration normal * Speech is clear and fluent * Cranial nerve II.? Vision is intact. RYLAND * Cranial nerve III, IV and .? Extraocular muscles are intact.? No nystagmus is appreciated * Cranial nerve V and VII.? No facial asymmetry is appreciated.? Temperature and pinprick is equal bilaterally * Cranial nerve VIII hearing is intact * Cranial nerve IX and X speech is clear fluent.? Palate elevates symmetrically * Cranial nerve XI head turn side to side full range of motion.? Did not assess shoulder shrug on the left * Cranial nerve XII tongue is midline full range of motion MOTOR EXAM: * Strength is 5/5 in right upper extremity and bilateral lower extremities.? No pronator drift was appreciated * Limited strength exam in the left upper extremity.? Hand grasp is strong * Muscle tone and bulk are normal * Gait not assessed SENSORY EXAM: * Temperature and touch are intact in all 4 extremities and symmetric CEREBELLAR EXAM: * [id number] and alternating movements are intact and normal in the right upper extremity.? Alternating movements intact and normal on the left.? Unable to test [id number] * [id number] and alternating movements are intact and normal in lower extremities REFLEX EXAM: * 2/4 throughout Objective Vital Signs Vital Signs: Vital Signs - 24 hr 03/15/22 12:00 03/15/22 16:00 03/15/22 20:00 Temperature 98.1 F 98.2 F 98.2 F Pulse Rate 90 93 H 93 H Respiratory Rate 19 19 19 Blood Pressure 155/69 H 160/74 H 151/69 H 02 Sat by Pulse Oximetry 96 98 98 Oxygen Delivery Method Room Air Room Air Room Air 03/15/22 16:00 03/16/22 00:00 03/16/22 04:00 Temperature 98.2 F 98.2 F Pulse Rate 93 H 85 Respiratory Rate 19 17 Blood Pressure 132/63 134/64 02 Sat by Pulse Oximetry 98 98 Oxygen Delivery Method Room Air Room Air Room Air Labs CBC & Chem 7: 03/16/22 05:19 03/16/22 05:19 Therapy Recommendations Therapy Recommendations: OT Recommendations OT Recommended Discharge Home with Home Health,Inpatient Rehab Unit Location OT Recommended Services at Physical Therapy,Occupational Therapy Discharge PT Recommendations PT Recommended Discharge Home with Home Health,Inpatient Rehab Unit Location Assessment/Plan (1) Metabolic encephalopathy: Code(s): G93.41 - Metabolic encephalopathy Status: Acute (2) Altered mental status: Code(s): R41.82 - Altered mental status, unspecified Status: Acute (3) PRES (posterior reversible encephalopathy syndrome): Code(s): I67.83 - Posterior reversible encephalopathy syndrome Status: Acute Plan It is my impression that this patient has altered mental status which is multifactorial. 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 Her blood pressures remained elevated which likely led to further persistence of the mental status changes. No definitive seizure-like activity has been identified clinically. Overnight 24-hour EEG didnot reveal any epileptiform discharges or seizure. MRI of the brain demonstrated press changes. Previously positive blood cultures have normalized. 1.? CT scan of the head was nonacute on admission.? MRI scan of the brain as above.? 2.? EEG -generalized rhythmic delta activity.? Patient moved to intensive care unit for continuous EEG monitoring -video EEG monitoring is unremarkable for epileptiform discharges or seizure. 3.? Brief episode of torsades de point on admission.? No further cardiac arrhythmia 4.? Leukocytosis.? Resolved on 03/13/2022.? Likely due to ileus and duodenitis.? Afebrile. 5.? Gallbladder ultrasound limited with no acute process 6.? Chest x-ray on admission was nonacute.? ABG suggested respiratory acidosis.?Will consider repeating these 7.? Anemia.? Hemoglobin 8.1 today. 8.? Hyponatremia is persistent.? Sodium today 132.? Was 122 on admission. 9.? LFTs normal, ammonia less than 9 10.? TSH 1.62.? We will check B12 and folate 11.? Urinalysis not convincing for infection on admission.? Repeat blood cultures negative at 5 days.? Initial blood culture showed diphtheroids and gram-negative bacilli. 12.? Urine tox positive for THC.? She states she does medicinal THC and has doneso for years.? Alcohol level less than 5 13.? COVID-19 negative Plan: Discontinue video EEG monitoring Continue correction of metabolic derangement per primary team I feel with continued care of the metabolic issues and continued careful monitoring and control of the blood pressure with a goal of systolic less than 130 will help improve the patient's condition. Neurology will sign off. Please call with any questions or concerns. Thank youfor consultation. Documented By: Marcelino Townsend DO 2 0831 Signed By: <Electronically signed by Marcelino Townsend DO> 03/16/22 0836 [facility] Work Phone: 1(252) 980-909112-08-2022 Progress note Author Wilian Pearson [facility] March 15, 2022 7:40pm Note Date/Time March 15, 2022 1 1:00am [facility] [address] [place] [address] Hospitalist Progress Note Signed Patient: Guera Sanchez MR#: [id number] : 1955 Acct:[id number] Age/Sex: 66 / F Adm Date: 2 Loc: Room: [address] [place] [address] Type: ADM IN Attending Dr: Wilian Pearson MD Copies to: ~ Date of Service: 03/15/2022 Subjective Subjective Narrative: Patient is seen and examined. She is in the ICU solely for the purpose of continuous EEG monitoring. She continues to report memory issues extending backto November. Offers no complaints or history of seizures in the past. States sheis improving with her appetite and tolerating intake without difficulty, no nausea or abdominal pain. She is passing flatus frequently per her report and also has watery dark stool. She does report left shoulder pain postoperatively as anticipated. Exam Physical Exam Vital Signs: Temp Pulse Resp BP Pulse Ox O2 Del Method O2 Flow Rate 98.0 F 84 16 156/70 H 97 Room Air 2 03/15/22 08:00 03/15/22 08:00 03/15/22 08:00 03/15/22 08:00 03/15/22 08:00 03/15/22 08:00 03/09/22 11:00 Narrative: Alert, in bed, no distress at rest RRR no abnormal heart tones dimin without wheeze or rhonchi, RA S/NT, hypoactive, obese, NG clamped- bile drainage, lewis dark richie urine no edema BLE, calves nontender, SCDs on A&Ox3, follows commands for exam, speech clear, equal hand grasps and facial symmetry Left upper arm dressing in place, left hand edema Objective Lab Results CBC & Chem 7: 03/15/22 04:25 03/15/22 04:25 Microbiology Results Microbiology 03/11/22 05:40 Blood - Right Forearm Blood Culture - Preliminary No Growth 4 Days 03/11/22 05:43 Blood - Right Hand Blood Culture - Preliminary No Growth 4 Days 03/14/22 08:15 Stool Stool Occult Blood (CAROL) - Final 03/08/22 15:01 Blood - Right Wrist Blood Culture - Final NO GROWTH 5 DAYS 03/08/22 14:33 Blood - Right Hand Blood Culture - Preliminary Diptheroids Gram Negative Bacilli Meds Allergies and Active Meds Allergies No Known Allergies Allergy (Verified 02/20/22 14:07) Active Meds: Active Medications Generic Name Dose Route Start Last Admin Trade Name Freq PRN Reason Stop Dose Admin Acetaminophen 650 mg 03/15/22 02:28 03/15/22 10:06 Acetaminophen 325 Mg Tablet PO 03/15/23 02:27 650 mg Q6H PRN Administration Pain Amlodipine Besylate 5 mg 03/11/22 09:05 03/15/22 09:05 Amlodipine 5 Mg Tablet PO 03/11/23 09:04 5 mg DAILY RYAN Administration Aspirin 81 mg 03/11/22 09:35 03/12/22 13:54 Aspirin 81 Mg Tab.Chew PO 03/11/23 09:34 Not Given DAILY RYAN Atorvastatin Calcium 10 mg 03/10/22 09:00 03/12/22 13:54 Atorvastatin 10 Mg Tablet PO 03/10/23 08:59 Not Given QAM RYAN Citalopram Hydrobromide 80 mg 03/10/22 09:00 03/15/22 09:06 Citalopram 40 Mg Tablet PO 03/10/23 08:59 80 mg QAM RYAN Administration Dextrose 0 gm 03/08/22 18:44 Dextrose 20 % In Water 10 Gm/50 Ml Syringe IV-PUSH 03/08/23 18:43 PRN PRN Hypoglycemia Folic Acid 1 mg 03/11/22 09:45 03/12/22 13:54 Folic Acid 1 Mg Tablet PO 03/11/23 09:44 Not Given DAILY RYAN Glucose 0 gm 03/08/22 18:44 Dextrose 40% Gel 15 Gm Tube PO 03/08/23 18:43 PRN PRN Hypoglycemia Hydralazine HCl 10 mg 03/08/22 18:31 03/14/22 22:10 Hydralazine 20 Mg/Ml Vial IV-PUSH 03/08/23 18:30 10 mg Q4H PRN Administration if SBP > 185 Hydrochlorothiazide 12.5 mg 03/11/22 09:45 03/11/22 09:47 Hydrochlorothiazide 12.5 Mg Tablet PO 03/11/23 09:44 12.5 mg DAILY RYAN Administration Sodium Chloride 1,000 mls @ 75 mls/hr 03/11/22 09:15 03/14/22 23:45 0.9% Sodium Chloride 1,000 Ml IV 03/11/23 09:14 Not Given .[id number] RYAN Ertapenem 1 gm in 100 mls @ 200 mls/hr 03/12/22 08:30 03/15/22 08:15 Invanz IV 200 mls/hr Q24H RYAN Administration Insulin Aspart 0 units 03/08/22 22:00 03/15/22 07:58 Insulin Aspart 300 Units/3 Ml Insuln.Pen SUBCUT 03/08/23 21:59 1 units TID.WM.HS RYAN Administration Protocol Insulin Glargine 5 units 03/11/22 08:00 03/11/22 08:24 Insulin Glargine 300 Units/3 Ml Insuln.Pen SUBCUT 03/11/23 07:59 5 units DAILY.WITH.BKFAST RYAN Administration Irbesartan 300 mg 03/10/22 11:15 03/15/22 09:06 Irbesartan 300 Mg Tablet PO 03/10/23 11:14 300 mg DAILY RYAN Administration Liothyronine Sodium 10 mcg 03/10/22 11:15 03/15/22 09:06 Liothyronine 5 Mcg Tablet PO 03/10/23 11:14 10 mcg DAILY RYAN Administration Lorazepam 1 mg 03/08/22 18:24 03/12/22 06:02 Lorazepam 2 Mg/Ml Vial IV-PUSH 09/04/22 18:23 1 mg Q4H PRN Administration Agitation Magnesium Oxide 400 mg 03/13/22 21:00 03/15/22 09:06 Magnesium Oxide 400 Mg Tablet PO 03/13/23 20:59 400 mg BID RYAN Administration Melatonin 5 mg 03/13/22 22:00 03/14/22 21:30 Melatonin 5 Mg Tablet PO 03/13/23 21:59 5 mg QHS RYAN Administration Miscellaneous Medication 50 ml 03/10/22 00:59 03/11/22 17:11 [place] Suspension 50 Ml Bottle PO 03/10/23 00:58 50 ml Q6H PRN Administration Cramping Nicotine 1 each 03/08/22 19:30 03/15/22 09:06 Nicotine Patch 21 Mg/24hr 1 Each Patch.Td24 TRANSDERML 04/18/22 09:01 Not Given DAILY RYAN Ondansetron HCl 4 mg 03/09/22 23:43 03/11/22 19:23 Ondansetron 4 Mg/2 Ml Vial IV 03/09/23 23:42 4 mg Q6H PRN Administration NAUSEA/VOMITING Oxycodone/Acetaminophen 1 tab 03/11/22 09:39 03/11/22 15:20 Oxycodone/Acetaminophen 5-325 Mg Tablet PO 1 tab Q4H PRN Administration Pain Pantoprazole Sodium 40 mg 03/11/22 23:15 03/15/22 09:06 Pantoprazole 40 Mg Vial IV-PUSH 03/11/23 23:14 40 mg BID RYAN Administration Promethazine HCl 12.5 mg 03/11/22 21:18 03/11/22 22:17 Promethazine 25 Mg/Ml Vial IV-PUSH 03/11/23 21:17 12.5 mg Q6H PRN Administration Nausea And Vomiting Quetiapine Fumarate 100 mg 03/10/22 22:00 03/14/22 21:29 Quetiapine Fumarate 100 Mg Tablet PO 03/10/23 21:59 100 mg QHS RYAN Administration Sodium Chloride 0 ml 03/08/22 13:12 03/15/22 08:15 Sodium Chloride 0.9 % 10 Ml Syringe IV-PUSH 03/08/23 13:11 10 ml PRN PRN Administration Flush Sodium Chloride 10 ml 03/08/22 14:18 03/12/22 08:43 Sodium Chloride 0.9 % 10 Ml Vial.Pf INJECTION 03/08/23 14:17 10 ml Q4H PRN Administration Ativan dilution Sodium Chloride 10 ml 03/08/22 18:24 Sodium Chloride 0.9 % 10 Ml Vial.Pf INJECTION 03/08/23 18:23 Q4H PRN Ativan dilution Sodium Chloride 1 gm 03/10/22 14:00 03/15/22 09:05 Sodium Chloride 1 Gm Tablet PO 03/10/23 13:59 1 gm TID RYAN Administration Sodium Chloride 10 ml 03/11/22 21:18 03/14/22 21:31 Sodium Chloride 0.9 % 10 Ml Vial.Pf INJECTION 03/11/23 21:17 10 ml PRN PRN Administration Promethazine Dilution Sodium Chloride 10 ml 03/11/22 23:05 03/15/22 09:06 Sodium Chloride 0.9 % 10 Ml Vial.Pf INJECTION 03/11/23 23:04 10 ml PRN PRN Administration Dilution Sodium Chloride 10 ml 03/11/22 23:05 Sodium Chloride 0.9 % 10 Ml Syringe IV-PUSH 03/11/23 23:04 PRN PRN Flush Thiamine HCl 100 mg 03/11/22 09:45 03/12/22 13:55 Thiamine 100 Mg Tablet PO 03/11/23 09:44 Not Given DAILY RYAN A&P - Hospitalist Assessment/Plan (1) Altered mental status: (2) Hypokalemia: (3) Hyponatremia: (4) Hypomagnesemia: (5) Metabolic encephalopathy: Plan Metabolic encephalopathy?resolved PRES THC use ?CT brain -nonacute ?MRI - chronic vessel ischemic changes, findings of possible mild posterior reversible encephalopathy ?CXR nonacute, UDS + THC, normal ETOH, normal NH4, UA noninfectious -Blood culture 03/08 -1 of 2 positive gram positive bacilli, repeat culture 03/11 NGTD- Zosyn initiated on admit DC'd 03/09 -neurology following, will need outpatient f/u -polypharmacy could also be contributory- gabapentin and cyclobenzaprine on hold, opiates with recent postop status, psych meds -EEG showed generalized rhythmic delta activity, currently undergoing continuousEEG Abdominal Pain, nausea/ vomiting 03/11, resolved Leukocytosis, resolved Duodenitis Ileus -GB ultrasound limited study, cholelithiasis -CT abdomen pelvis dilated duodenum with inflammatory changes adjacent to duodenum possibly representing duodenitis. Cholelithiasis with findings suspicious for acute cholecystitis with gallbladder distention and possible gallbladder wall thickening. CBD dilated at 9 mm. -GI consult appreciated, consider postop ileus -note stool was positive 03/14 -Ertapenem initiated 03/12 with leukocytosis (had been on Zosyn 03/08-03/09) -Pantoprazole IV -Patient did have 1 blood culture of 2 on admission that was positive, has received antibiotic therapy. Second set of cultures remains negative for growthto date. Recommend completing full 7-day course of antibiotic therapy Hypokalemia Hypomagnesemia Hyponatremia, chronic -TSH, cortisol WNL -trend labs, replete as indicated, IVF -hold HCTZ -patient was noted to be on chronic NaCl tabs at home Normocytic anemia, probably dilutional -hgb 9.7 on admit, not recent ortho OR 03/06 ?Stool for guaiac positive, known duodenitis- is on PPI -03/12 transfuse 2 units PRBC with AM Hgb 7.1 -hold ASA and Enoxaparen Torsades de pointe 2/2 electrolyte abnormalities?in ED Prolonged QT ?EKG in ED with prolonged QTC of 572, trend -check echo Reported ETOH use/ abuse -vitamin therapy -CT abd no parenchymal changes to liver Chronic conditions: 1. Diabetes type?SSI, fingersticks, hold long acting insulin while NPO. Home Pioglitazone & Metformin on hold 2. Hypertension, hyperlipidemia - BP improved- amlodipine, atorvastatin, irbasartan 3. Left shoulder fracture s/p ORIF 03/06- pain control, SCDs for DVT ppx. Nursing to notify Dr Napoles office of hospitalization to determine needs for sutures, follow up imaging, therapy, etc. as she was to follow up 1wk 4. Anxiety/ Depression- Citalopram, quetiapine 5. Hypothyroid- liothyronine, TSH 1.62 Attending attestation: Patient was personally seen by me on the day of encounter. I reviewed her history and performed freedman elements of exam and formulated the plan of care and confirmed the nurse practitioner's note above. Documented By: TANIYA Adames 2 [id number] Signed By: <Electronically signed by ANP- Nicolasa Hull> 03/15/22 1607 <Electronically signed by Wilian Pearson MD> 03/15/221939 [facility] Work Phone: 1([phone] 852-327412-08-2022 Progress note Author Marcelino Townsend [facility] March 15, 2022 4:25pm Note Date/Time March 15, 2022 9 :17am [facility] [address] [place], [place] [id number] Neurology Progress Note Signed Patient: Guera Sanchez MR#: [id number] : 1955 Acct:[id number] Age/Sex: 66 / F Adm Date: 2 Loc: Room: [address] [place] [address] Type: ADM IN Attending Dr: Wilian Pearson MD Copies to: ~ Date of Service: 03/15/2022 Subjective Subjective Narrative: Patient denies any new symptoms or overt confusion. No focal motor symptoms. She was moved to the ICU for monitoring which is now running. Still has very broad duration of memory lapse. Review of Systems Constitutional Constitutional: Denies chills and Denies fever(s) Cardiovascular Cardiovascular: Denies chest pain Respiratory Respiratory: Denies dyspnea Gastrointestinal Gastrointestinal: Denies nausea Musculoskeletal Musculoskeletal: Denies myalgias Neurologic Neurologic: Denies abnormal speech, Denies convulsions, Denies localized weakness, Denies headache(s) and Denies tremor(s) Exam Physical Exam Vital Signs: Temp Pulse Resp BP Pulse Ox O2 Del Method O2 Flow Rate 98.0 F 84 16 156/70 H 97 Room Air 2 03/15/22 08:00 03/15/22 08:00 03/15/22 08:00 03/15/22 08:00 03/15/22 08:00 03/15/22 08:00 03/09/22 11:00 Narrative: GENERAL EXAM: * Constitutional - Patient appears well nourished and well groomed * Patient is alert and oriented x3. * Apical is regular rate and rhythm. No murmur was appreciated. No edema noted. Pulses are normal * Lung sounds are clear to auscultation * Abdomen is soft with normal bowel sounds NEURO EXAM: * Attention span/concentration normal * Speech is clear and fluent * Cranial nerve II. Vision is intact. RYLAND * Cranial nerve III, IV and . Extraocular muscles are intact. No nystagmus is appreciated * Cranial nerve V and VII. No facial asymmetry is appreciated. Temperature and pinprick is equal bilaterally * Cranial nerve VIII hearing is intact * Cranial nerve IX and X speech is clear fluent. Palate elevates symmetrically * Cranial nerve XI head turn side to side full range of motion. Did not assess shoulder shrug on the left * Cranial nerve XII tongue is midline full range of motion MOTOR EXAM: * Strength is 5/5 in right upper extremity and bilateral lower extremities. No pronator drift was appreciated * Limited strength exam in the left upper extremity. Hand grasp is strong * Muscle tone and bulk are normal * Gait not assessed SENSORY EXAM: * Temperature and touch are intact in all 4 extremities and symmetric CEREBELLAR EXAM: * Lwpyhi-zi-zatf and alternating movements are intact and normal in the right upper extremity. Alternating movements intact and normal on the left. Unable to test [id number] * Pjqu-ou-kfuk and alternating movements are intact and normal in lower extremities REFLEX EXAM: * 2/4 throughout Objective Vital Signs Vital Signs: Vital Signs - 24 hr 03/14/22 11:27 03/14/22 15:12 03/14/22 16:00 Temperature 98.6 F 97.9 F Pulse Rate 90 103 H Respiratory Rate 20 18 Blood Pressure 150/80 H 154/74 H 02 Sat by Pulse Oximetry 99 98 Oxygen Delivery Method Room Air Room Air Room Air 03/14/22 21:00 03/15/22 00:00 03/15/22 00:00 Temperature 97.7 F Pulse Rate 100 H 96 H Respiratory Rate 16 16 Blood Pressure 183/71 H 162/71 H 02 Sat by Pulse Oximetry 98 96 Oxygen Delivery Method Room Air Room Air Room Air 03/15/22 04:00 03/15/22 04:00 03/15/22 08:00 Temperature 98.1 F 98.0 F Pulse Rate 92 H 84 Respiratory Rate 20 16 Blood Pressure 152/67 H 156/70 H 02 Sat by Pulse Oximetry 95 97 Oxygen Delivery Method Room Air Room Air Room Air Labs CBC & Chem 7: 03/15/22 04:25 03/15/22 04:25 Therapy Recommendations Therapy Recommendations: OT Recommendations OT Recommended Discharge Home with Home Health,Inpatient Rehab Unit Location OT Recommended Services at Physical Therapy,Occupational Therapy Discharge PT Recommendations PT Recommended Discharge Home with Home Health,Inpatient Rehab Unit Location Assessment/Plan (1) Altered mental status: Assessment/Problem Details: 66-year-old woman found at home confused. She has a history that includes type 2 diabetes, hypertension, anxiety disorder, and a left shoulder fracture with surgery on 03/06/22. She was reportedly found at home very confused by a friend and brought to ER.? Fever with maximum temperature 100.8 on admission.? She was Tachycardic with a rate of 128 and had a short episode of torsades the point.? Prolonged QT 572.? Head CT unremarkable.? Sodium 122.? She developed ileus and duodenitis during hospitalization. A MET was called on 03/11 due to abdominal pain and nausea and vomiting. CT scan of the abdomen showed these findings. She did have an MRI brain which showed posterior reversible encephalopathy syndrome (PRES). Blood pressures have been persistently elevated in the 150s [id number]. Her peak blood pressure here was 192/86. Her encephalopathy initially thought to be metabolic related to her hyponatremia or infection-related given she presented with fever but there would be no clear infectious source here. Geovanna need outpatient neurology follow-up. She will likely need an MRI in 1.5 to3 months to ensure the PRES changes have resolved. Interval history: Patient states she is doing well. Still with memory lapse. No overt confusion. No focal neurological symptoms. 1. CT scan of the head was nonacute on admission. MRI scan of the brain as above. Consider repeat MRI of the brain 2. EEG -generalized rhythmic delta activity. Patient moved to intensive care unit for continuous EEG monitoring 3. Brief episode of torsades de point on admission. No further cardiac arrhythmia 4. Leukocytosis. Resolved on 03/13/2022. Likely due to ileus and duodenitis. Afebrile. 5. Gallbladder ultrasound limited with no acute process 6. Chest x-ray on admission was nonacute. ABG suggested respiratory acidosis. Will consider repeating these 7. Anemia. Hemoglobin 8.1 today. 8. Hyponatremia is persistent. Sodium today 132. Was 122 on admission. 9. LFTs normal, ammonia less than 9 10. TSH 1.62. We will check B12 and folate 11. Urinalysis not convincing for infection on admission. Repeat blood cultures negative at 5 days. Initial blood culture showed diphtheroids and gram-negative bacilli. 12. Urine tox positive for THC. She states she does medicinal THC and has doneso for years. Alcohol level less than 5 13. COVID-19 negative 14. Hypertension still persistent. Ranging in the 140s to 180s systolic. Willdiscuss BP meds with the hospitalist [employer]. It is my impression that the patient is actually stable overnight. No definitive seizure-like activity. I feel that the patient's confusion may be related to PRES. her initial EEG was concerning for generalized rhythmic delta activity. The first 4 to 5 hours of her continuous video EEG monitoring preliminarily indicates generalized slowing but an overall improvement in the pattern. Her blood pressure is being more aggressively treated. We will monitor her withthe video EEG overnight. I have personally seen and examined the patient on rounds today. I was present for the freedman parts of clinical decision making. I agree with the Nurse Practitioner's note other than as stated by me. Code(s): R41.82 - Altered mental status, unspecified Status: Acute Documented By: DOUG Ordonez 15 Signed By: <Electronically signed by DOUG Judd> 03/15/22 1115 <Electronically signed by Marcelino Townsend DO> 03/15/22 1628 [facility] Work Phone: 1(887) 601-370812-07-2022 Progress note Author Marcelino Townsend [facility] March 14, 2022 4:15pm Note Date/Time March 14, 2022 1 1:36am [facility] [address] [place] [address] Neurology Progress Note Signed Patient: Guera Sanchez MR#: [id number] : 1955 Acct:[id number] Age/Sex: 66 / F Adm Date: 2 Loc: Room: 1U3925-6 Type: ADM IN Attending Dr: Wilian Pearson MD Copies to: ~ Date of Service: 03/14/2022 Subjective Subjective Narrative: Patient Nuys any overt confusion. Has no memory since end of November versus December. No recall of fall, surgery, by her condo. Denies hallucinations Review of Systems Constitutional Constitutional: Denies chills and Denies fever(s) Eyes Eyes: Denies blurry vision and Denies diplopia Cardiovascular Cardiovascular: Denies chest pain and Denies palpitations Respiratory Respiratory: Denies dyspnea Gastrointestinal Gastrointestinal: Denies nausea Musculoskeletal Musculoskeletal: Reports arthralgias (Left shoulder) and Reports myalgias Neurologic Neurologic: Denies abnormal speech, Denies confusion, Reports localized weakness(Left upper extremity), Denies headache(s), Reports memory loss, Denies paresthesias and Denies tremor(s) Exam Physical Exam Vital Signs: Temp Pulse Resp BP Pulse Ox O2 Del Method O2 Flow Rate 97.9 F 102 H 20 135/77 97 Room Air 2 03/14/22 07:52 03/14/22 07:52 03/14/22 07:52 03/14/22 07:52 03/14/22 07:52 03/14/22 08:10 03/09/22 11:00 Narrative: GENERAL EXAM: * Constitutional - Patient appears well nourished and well groomed * Patient is alert and oriented x3. * Apical is regular rate and rhythm. No murmur was appreciated. No edema noted. Pulses are normal * Lung sounds are clear to auscultation * Abdomen is soft with normal bowel sounds * Neck is supple without carotid bruit * Ophthalmoscopic exam deferred. No injection or drainage noted. NEURO EXAM: * Attention span/concentration normal * Speech is clear and fluent * Cranial nerve II. Vision is intact. RYLAND * Cranial nerve III, IV and . Extraocular muscles are intact. No nystagmus is appreciated * Cranial nerve V and VII. No facial asymmetry is appreciated. Temperature and pinprick is equal bilaterally * Cranial nerve VIII hearing is intact * Cranial nerve IX and X speech is clear fluent. Palate elevates symmetrically * Cranial nerve XI head turn side to side full range of motion. Did not assess shoulder shrug on the left * Cranial nerve XII tongue is midline full range of motion MOTOR EXAM: * Strength is 5/5 in right upper extremity and bilateral lower extremities. No pronator drift was appreciated * Limited strength exam in the left upper extremity. Hand grasp is strong * Muscle tone and bulk are normal * Gait not assessed SENSORY EXAM: * Temperature and touch are intact in all 4 extremities and symmetric CEREBELLAR EXAM: * Ewmwmr-ij-owln and alternating movements are intact and normal in the right upper extremity. Alternating movements intact and normal on the left. Unable to test [id number]-bopo * Crds-jm-ruph and alternating movements are intact and normal in lower extremities REFLEX EXAM: * 2/4 throughout Objective Vital Signs Vital Signs: Vital Signs - 24 hr 03/13/22 16:00 03/13/22 20:00 03/13/22 20:00 Temperature 97.9 F 98.7 F Pulse Rate Pulse Rate [Monitor] 108 H 105 H Respiratory Rate 16 16 Blood Pressure Blood Pressure [Right Arm] 151/65 H 103/75 02 Sat by Pulse Oximetry 99 97 Oxygen Delivery Method Room Air Room Air Room Air 03/14/22 00:00 03/14/22 04:30 03/14/22 07:52 Temperature 97.6 F 98.2 F 97.9 F Pulse Rate 99 H 102 H Pulse Rate [Monitor] 78 Respiratory Rate 18 18 20 Blood Pressure 160/72 H 135/77 Blood Pressure [Right Arm] 142/78 H 02 Sat by Pulse Oximetry 96 96 97 Oxygen Delivery Method Room Air Room Air Room Air 03/14/22 08:10 Temperature Pulse Rate Pulse Rate [Monitor] Respiratory Rate Blood Pressure Blood Pressure [Right Arm] 02 Sat by Pulse Oximetry Oxygen Delivery Method Room Air Labs CBC & Chem 7: 03/13/22 05:30 03/14/22 06:16 Therapy Recommendations Therapy Recommendations: OT Recommendations OT Recommended Discharge Home with Home Health,Inpatient Rehab Unit Location OT Recommended Services at Physical Therapy,Occupational Therapy Discharge PT Recommendations PT Recommended Discharge Home with Home Health,Inpatient Rehab Unit Location Assessment/Plan (1) Altered mental status: Assessment/Problem Details: 66-year-old woman found at home confused. She has a history that includes type 2 diabetes, hypertension, anxiety disorder, and a left shoulder fracture with surgery on 03/06/22. She was reportedly found at home very confused by a friend and brought to ER.? Fever with maximum temperature 100.8 on admission.? She was Tachycardic with a rate of 128 and had a short episode of torsades the point.? Prolonged QT 572.? Head CT unremarkable.? Sodium 122.? She developed ileus and duodenitis during hospitalization. A MET was called on 03/11 due to abdominal pain and nausea and vomiting. CT scan of the abdomen showed these findings. She did have an MRI brain which showed posterior reversible encephalopathy syndrome (PRES). Blood pressures have been persistently elevated in the 150s vy090s. Her peak blood pressure here was 192/86. Her encephalopathy initially thought to be metabolic related to her hyponatremia or infection-related given she presented with fever but there would be no clear infectious source here. Shewill need outpatient neurology follow-up. She will likely need an MRI in 1.5 to3 months to ensure the PRES changes have resolved. Interval history: Patient denies overt confusion. She is oriented x4. She has no recollection of several months prior to admission even dating back to November. The last clear memory she has is walking deploy with her friends in November. She bought a condo but she does not know if it was in November or December. She does not recall her surgery. She does not recall the fall that contributed to her shoulder fracture. She denies hallucinations. 1. CT scan of the head was nonacute on admission. MRI scan of the brain as above. Consider repeat MRI of the brain 2. EEG -generalized rhythmic delta activity 3. Brief episode of torsades de point on admission. No further cardiac arrhythmia 4. Leukocytosis. Resolved on 03/13/2022. Likely due to ileus and duodenitis. Afebrile. 5. Gallbladder ultrasound limited with no acute process 6. Chest x-ray on admission was nonacute. ABG suggested respiratory acidosis. Will consider repeating these 7. Anemia. Hemoglobin 8.1 today. 8. Hyponatremia is persistent. Sodium today 129. Was 122 on admission. 9. LFTs normal, ammonia less than 9 10. TSH 1.62. We will check B12 and folate 11. Urinalysis not convincing for infection on admission. Repeat blood cultures negative at 5 days. Initial blood culture showed diphtheroids and gram-negative bacilli. 12. Urine tox positive for THC. She states she does medicinal THC and has doneso for years. Alcohol level less than 5 13. COVID-19 negative The patient was previously seen during this admission by Dr. Boothe from neurology. MRI imaging revealed findings potentially consistent with PRES. recommendations at that time were to manage blood pressure aggressively. However, blood pressures have continued to be quite high during the admission. Additionally, a routine EEG has been ordered and demonstrates generalized rhythmic delta activity during more than half of the routine recording without any evidence of clear definitive electrographic seizure.. I suggest aggressive management of blood pressure with goal of a systolic blood pressure less than 130 at all times. Otherwise, extensive neurologic work- up has largely been completed. Patient seems to be stable today and doing quite well. She may havea component of transient global amnesia or intermittent seizure disorder or persistent effects of PRES. Again that evaluation is extensively outlined as above for such an etiology. The patient will need 24-hour continuous video EEG monitoring to further assess for progression or evolution of the generalized rhythmic delta activity identified on the routine study. The patient will be transferred to a part of the hospital that can accommodate video EEG monitoring and will be hooked up thereafter I have personally seen and examined the patient on rounds today. I was present for the freedman parts of clinical decision making. I agree with the Nurse Practitioner's note other than as stated by me. Code(s): R41.82 - Altered mental status, unspecified Status: Acute Documented By: DOUG Ordonez [id number] Signed By: <Electronically signed by DOUG Judd> 03/14/22 1140 <Electronically signed by Marcelino Townsend DO> 03/14/22 4485 [facility] Work Phone: [phone]) [phone] Progress note Author Wilian Pearson [facility] March 14, 2022 2:53pm Note Date/Time March 14, 2022 1 :01pm [facility] [address] [place] [address] Hospitalist Progress Note Signed Patient: Guera Sanchez MR#: [id number] : 1955 Acct:[id number] Age/Sex: 66 / F Adm Date: 2 Loc: 4N Room: [address] [place] [address] Type: ADM IN Attending Dr: Wilian Pearson MD Copies to: ~ Date of Service: 03/14/2022 Subjective Subjective Narrative: Patient is seen and examined. NG was removed yesterday successfully. She denies any abdominal pain or nausea. Tolerating liquids and had BM yesterday. Passing flatus without difficulties. No fevers are reported Exam Physical Exam Vital Signs: Temp Pulse Resp BP Pulse Ox O2 Del Method O2 Flow Rate 98.6 F 90 20 150/80 H 99 Room Air 2 03/14/22 11:27 03/14/22 11:27 03/14/22 11:27 03/14/22 11:27 03/14/22 11:27 03/14/22 11:27 03/09/22 11:00 Narrative: Alert, in bed, no distress at rest, ill appearing Tachycardia no abnormal heart tones dimin without wheeze or rhonchi, RA S/NT, hypoactive, obese, NG clamped- bile drainage, lewis dark richie urine no edema BLE, calves nontender, SCDs on A&Ox3, follows commands for exam, speech clear, equal hand grasps and facial symmetry Left upper arm dressing in place, left hand edema Objective Lab Results CBC & Chem 7: 03/13/22 05:30 03/14/22 06:16 Microbiology Results Microbiology 03/14/22 08:15 Stool Stool Occult Blood (CAROL) - Final 03/08/22 15:01 Blood - Right Wrist Blood Culture - Final NO GROWTH 5 DAYS 03/08/22 14:33 Blood - Right Hand Blood Culture - Preliminary Diptheroids Gram Negative Bacilli 03/11/22 05:43 Blood - Right Hand Blood Culture - Preliminary No Growth 3 Days 03/11/22 05:40 Blood - Right Forearm Blood Culture - Preliminary No Growth 3 Days Meds Allergies and Active Meds Allergies No Known Allergies Allergy (Verified 02/20/22 14:07) Active Meds: Active Medications Generic Name Dose Route Start Last Admin Trade Name Freq PRN Reason Stop Dose Admin Amlodipine Besylate 5 mg 03/11/22 09:05 03/14/22 09:30 Amlodipine 5 Mg Tablet PO 03/11/23 09:04 5 mg DAILY RYAN Administration Aspirin 81 mg 03/11/22 09:35 03/12/22 13:54 Aspirin 81 Mg Tab.Chew PO 03/11/23 09:34 Not Given DAILY RYAN Atorvastatin Calcium 10 mg 03/10/22 09:00 03/12/22 13:54 Atorvastatin 10 Mg Tablet PO 03/10/23 08:59 Not Given QAM RYAN Citalopram Hydrobromide 80 mg 03/10/22 09:00 03/14/22 09:29 Citalopram 40 Mg Tablet PO 03/10/23 08:59 80 mg QAM RYAN Administration Dextrose 0 gm 03/08/22 18:44 Dextrose 20 % In Water 10 Gm/50 Ml Syringe IV-PUSH 03/08/23 18:43 PRN PRN Hypoglycemia Folic Acid 1 mg 03/11/22 09:45 03/12/22 13:54 Folic Acid 1 Mg Tablet PO 03/11/23 09:44 Not Given DAILY RYAN Glucose 0 gm 03/08/22 18:44 Dextrose 40% Gel 15 Gm Tube PO 03/08/23 18:43 PRN PRN Hypoglycemia Hydralazine HCl 10 mg 03/08/22 18:31 03/11/22 19:32 Hydralazine 20 Mg/Ml Vial IV-PUSH 03/08/23 18:30 10 mg Q4H PRN Administration if SBP > 185 Hydrochlorothiazide 12.5 mg 03/11/22 09:45 03/11/22 09:47 Hydrochlorothiazide 12.5 Mg Tablet PO 03/11/23 09:44 12.5 mg DAILY RYAN Administration Sodium Chloride 1,000 mls @ 75 mls/hr 03/11/22 09:15 03/14/22 04:56 0.9% Sodium Chloride 1,000 Ml IV 03/11/23 09:14 75 mls/hr .[id number] RYAN Administration Ertapenem 1 gm in 100 mls @ 200 mls/hr 03/12/22 08:30 03/14/22 09:46 Invanz IV 200 mls/hr Q24H RYAN Administration Insulin Aspart 0 units 03/08/22 22:00 03/14/22 11:59 Insulin Aspart 300 Units/3 Ml Insuln.Pen SUBCUT 03/08/23 21:59 1 units TID.WM.HS RYAN Administration Protocol Insulin Glargine 5 units 03/11/22 08:00 03/11/22 08:24 Insulin Glargine 300 Units/3 Ml Insuln.Pen SUBCUT 03/11/23 07:59 5 units DAILY.WITH.BKFAST RYAN Administration Irbesartan 300 mg 03/10/22 11:15 03/14/22 09:30 Irbesartan 300 Mg Tablet PO 03/10/23 11:14 300 mg DAILY RYAN Administration Liothyronine Sodium 10 mcg 03/10/22 11:15 03/14/22 10:12 Liothyronine 5 Mcg Tablet PO 03/10/23 11:14 10 mcg DAILY RYAN Administration Lorazepam 1 mg 03/08/22 18:24 03/12/22 06:02 Lorazepam 2 Mg/Ml Vial IV-PUSH 09/04/22 18:23 1 mg Q4H PRN Administration Agitation Magnesium Oxide 400 mg 03/13/22 21:00 03/14/22 09:30 Magnesium Oxide 400 Mg Tablet PO 03/13/23 20:59 400 mg BID RYAN Administration Melatonin 5 mg 03/13/22 22:00 03/13/22 21:25 Melatonin 5 Mg Tablet PO 03/13/23 21:59 5 mg QHS RYAN Administration Miscellaneous Medication 50 ml 03/10/22 00:59 03/11/22 17:11 Greenfrog Suspension 50 Ml Bottle PO 03/10/23 00:58 50 ml Q6H PRN Administration Cramping Nicotine 1 each 03/08/22 19:30 03/14/22 09:36 Nicotine Patch 21 Mg/24hr 1 Each Patch.Td24 TRANSDERML 04/18/22 09:01 Not Given DAILY RYAN Ondansetron HCl 4 mg 03/09/22 23:43 03/11/22 19:23 Ondansetron 4 Mg/2 Ml Vial IV 03/09/23 23:42 4 mg Q6H PRN Administration NAUSEA/VOMITING Oxycodone/Acetaminophen 1 tab 03/11/22 09:39 03/11/22 15:20 Oxycodone/Acetaminophen 5-325 Mg Tablet PO 1 tab Q4H PRN Administration Pain Pantoprazole Sodium 40 mg 03/11/22 23:15 03/14/22 09:46 Pantoprazole 40 Mg Vial IV-PUSH 03/11/23 23:14 40 mg BID RYAN Administration Promethazine HCl 12.5 mg 03/11/22 21:18 03/11/22 22:17 Promethazine 25 Mg/Ml Vial IV-PUSH 03/11/23 21:17 12.5 mg Q6H PRN Administration Nausea And Vomiting Quetiapine Fumarate 100 mg 03/10/22 22:00 03/13/22 21:25 Quetiapine Fumarate 100 Mg Tablet PO 03/10/23 21:59 100 mg QHS RYAN Administration Sodium Chloride 0 ml 03/08/22 13:12 03/12/22 08:43 Sodium Chloride 0.9 % 10 Ml Syringe IV-PUSH 03/08/23 13:11 20 ml PRN PRN Administration Flush Sodium Chloride 10 ml 03/08/22 14:18 03/12/22 08:43 Sodium Chloride 0.9 % 10 Ml Vial.Pf INJECTION 03/08/23 14:17 10 ml Q4H PRN Administration Ativan dilution Sodium Chloride 10 ml 03/08/22 18:24 Sodium Chloride 0.9 % 10 Ml Vial.Pf INJECTION 03/08/23 18:23 Q4H PRN Ativan dilution Sodium Chloride 1 gm 03/10/22 14:00 03/14/22 09:30 Sodium Chloride 1 Gm Tablet PO 03/10/23 13:59 1 gm TID RYAN Administration Sodium Chloride 10 ml 03/11/22 21:18 Sodium Chloride 0.9 % 10 Ml Vial.Pf INJECTION 12/04/23 21:17 PRN PRN Promethazine Dilution Sodium Chloride 10 ml 03/11/22 23:05 03/13/22 21:25 Sodium Chloride 0.9 % 10 Ml Vial.Pf INJECTION 03/11/23 23:04 10 ml PRN PRN Administration Dilution Sodium Chloride 10 ml 03/11/22 23:05 Sodium Chloride 0.9 % 10 Ml Syringe IV-PUSH 03/11/23 23:04 PRN PRN Flush Thiamine HCl 100 mg 03/11/22 09:45 03/12/22 13:55 Thiamine 100 Mg Tablet PO 03/11/23 09:44 Not Given DAILY RYAN A&P - Hospitalist Assessment/Plan (1) Altered mental status: (2) Hypokalemia: (3) Hyponatremia: (4) Hypomagnesemia: (5) Metabolic encephalopathy: Plan Metabolic encephalopathy?resolved PRES THC use ?CT brain -nonacute ?MRI - chronic vessel ischemic changes, findings of possible mild posterior reversible encephalopathy ?CXR nonacute, UDS + THC, normal ETOH, normal NH4, UA noninfectious -Blood culture 03/08 -1 of 2 positive gram positive bacilli, repeat culture 03/11 NGTD- Zosyn initiated on admit DC'd 03/09 -neurology following, will need outpatient f/u -polypharmacy could also be contributory- gabapentin and cyclobenzaprine on hold, opiates with recent postop status, psych meds, Abdominal Pain, nausea/ vomiting 03/11, resolved Leukocytosis, resolved -GB ultrasound limited study, cholelithiasis -CT abdomen pelvis dilated duodenum with inflammatory changes adjacent to duodenum possibly representing duodenitis. Cholelithiasis with findings suspicious for acute cholecystitis with gallbladder distention and possible gallbladder wall thickening. CBD dilated at 9 mm. -GI consult appreciated, consider postop ileus -NG dc per GI -Ertapenem initiated 03/12 with leukocytosis (had been on Zosyn 03/08-03/09) -Pantoprazole IV -Patient did have 1 blood culture of 2 on admission that was positive, has received antibiotic therapy. Second set of cultures remains negative for growthto date. Recommend completing full 7-day course of antibiotic therapy Hypokalemia Hypomagnesemia Hyponatremia, chronic -TSH, cortisol WNL -trend labs, replete as indicated, IVF -hold HCTZ -patient was noted to be on chronic NaCl tabs at home Normocytic anemia, probably dilutional -hgb 9.7 on admit, not recent ortho OR 03/06 ?Stool for guaiac pending -03/12 transfuse 2 units PRBC with AM Hgb 7.1 -hold ASA and Enoxaparen Torsades de pointe 2/2 electrolyte abnormalities?in ED Prolonged QT ?EKG in ED with prolonged QTC of 572, trend -check echo Reported ETOH use/ abuse -vitamin therapy -CT abd no parenchymal changes to liver Chronic conditions: 1. Diabetes type?SSI, fingersticks, hold long acting insulin while NPO. Home Pioglitazone & Metformin on hold 2. Hypertension, hyperlipidemia - BP improved- amlodipine, atorvastatin, irbasartan 3. Left shoulder fracture s/p ORIF 03/06- pain control, SCDs for DVT ppx. Nursing to notify Dr Napoles office of hospitalization to determine needs for sutures, follow up imaging, therapy, etc. as she was to follow up 1wk 4. Anxiety/ Depression- Citalopram, quetiapine 5. Hypothyroid- liothyronine, TSH 1.62 Attending attestation: Patient was personally seen by me on the day of encounter. I reviewed her history and performed freedman elements of exam and formulated the plan of care and confirmed the nurse practitioner's note above. Plan of care reflects my direct input. Documented By: TANIYA Adames 2 1300 Signed By: <Electronically signed by ANP-BC Nicolasa Hull> 03/14/22 1430 <Electronically signed by Wilian Pearson MD> 03/14/22 1453 [facility] Work Phone: [phone]) 529-910112-07-2022 Progress note Author Skyler Ro [facility] March 14, 2022 1:34pm Note Date/Time March 14, 2022 1 :34pm [facility] [address] [place] [address] Gastroenterology PN Signed Patient: Guera Sanchez MR#: [id number] : 1955 Acct:[id number] Age/Sex: 66 / F Adm Date: 2 Loc: 4N Room: 5B6337-2 Type: ADM IN Attending Dr: Wilian Pearson MD Copies to: MD Ash Chavez MD Frederick E Doamekpor, MD~ Date of Service: 03/14/2022 Subjective Subjective Narrative: No acute events overnight. She is tolerating the NG to being out without any significant abdominal pain. She is tolerating a liquid diet. She had a bowel movement yesterday that was normal in appearance. She continues to pass flatus. Exam Physical Exam Vital Signs: Temp Pulse Resp BP Pulse Ox O2 Del Method O2 Flow Rate 98.6 F 90 20 150/80 H 99 Room Air 2 03/14/22 11:27 03/14/22 11:27 03/14/22 11:27 03/14/22 11:27 03/14/22 11:27 03/14/22 11:27 03/09/22 11:00 Const General: no acute distress and well developed HEENT Head: normocephalic and atraumatic Mouth: moist mucous membranes Eyes Sclera: sclerae normal (no scleral icterus) EOM: EOM intact bilaterally Neck Other: trachea midline Resp Effort & Inspection: normal respiratory effort and able to speak in complete sentences GI Inspection: normal to inspection and non-distended Palpation: soft and nontender Skin General: turgor normal and no jaundice Neuro General: patient alert and patient oriented x3 Psych Appearance: grossly normal Mental Status: mental status grossly normal Objective Allergies and Medications Allergies/Adverse Reactions: Allergies Allergy/AdvReac Type Severity Reaction Status Date / Time No Known Allergies Allergy Verified 02/20/22 14:07 Active Meds: Active Medications Generic Name Dose Route Start Last Admin Trade Name Adrianne PRN Reason Stop Dose Admin Amlodipine Besylate 5 mg 03/11/22 09:05 03/14/22 09:30 Amlodipine 5 Mg Tablet PO 03/11/23 09:04 5 mg DAILY RYAN Administration Aspirin 81 mg 03/11/22 09:35 03/12/22 13:54 Aspirin 81 Mg Tab.Chew PO 03/11/23 09:34 Not Given DAILY RYAN Atorvastatin Calcium 10 mg 03/10/22 09:00 03/12/22 13:54 Atorvastatin 10 Mg Tablet PO 03/10/23 08:59 Not Given QAM [facility] Citalopram Hydrobromide 80 mg 03/10/22 09:00 03/14/22 09:29 Citalopram 40 Mg Tablet PO 03/10/23 08:59 80 mg QAM RYAN Administration Dextrose 0 gm 03/08/22 18:44 Dextrose 20 % In Water 10 Gm/50 Ml Syringe IV-PUSH 03/08/23 18:43 PRN PRN Hypoglycemia Folic Acid 1 mg 03/11/22 09:45 03/12/22 13:54 Folic Acid 1 Mg Tablet PO 03/11/23 09:44 Not Given DAILY RYAN Glucose 0 gm 03/08/22 18:44 Dextrose 40% Gel 15 Gm Tube PO 03/08/23 18:43 PRN PRN Hypoglycemia Hydralazine HCl 10 mg 03/08/22 18:31 03/11/22 19:32 Hydralazine 20 Mg/Ml Vial IV-PUSH 03/08/23 18:30 10 mg Q4H PRN Administration if SBP > 185 Hydrochlorothiazide 12.5 mg 03/11/22 09:45 03/11/22 09:47 Hydrochlorothiazide 12.5 Mg Tablet PO 03/11/23 09:44 12.5 mg DAILY RYAN Administration Sodium Chloride 1,000 mls @ 75 mls/hr 03/11/22 09:15 03/14/22 04:56 0.9% Sodium Chloride 1,000 Ml IV 03/11/23 09:14 75 mls/hr .[id number] RYAN Administration Ertapenem 1 gm in 100 mls @ 200 mls/hr 03/12/22 08:30 03/14/22 09:46 Invanz IV 200 mls/hr Q24H RYAN Administration Insulin Aspart 0 units 03/08/22 22:00 03/14/22 11:59 Insulin Aspart 300 Units/3 Ml Insuln.Pen SUBCUT 03/08/23 21:59 1 units TID.WM.HS RYAN Administration Protocol Insulin Glargine 5 units 03/11/22 08:00 03/11/22 08:24 Insulin Glargine 300 Units/3 Ml Insuln.Pen SUBCUT 03/11/23 07:59 5 units DAILY.WITH.BKFAST RYAN Administration Irbesartan 300 mg 03/10/22 11:15 03/14/22 09:30 Irbesartan 300 Mg Tablet PO 03/10/23 11:14 300 mg DAILY RYAN Administration Liothyronine Sodium 10 mcg 03/10/22 11:15 03/14/22 10:12 Liothyronine 5 Mcg Tablet PO 03/10/23 11:14 10 mcg DAILY RYAN Administration Lorazepam 1 mg 03/08/22 18:24 03/12/22 06:02 Lorazepam 2 Mg/Ml Vial IV-PUSH 09/04/22 18:23 1 mg Q4H PRN Administration Agitation Magnesium Oxide 400 mg 03/13/22 21:00 03/14/22 09:30 Magnesium Oxide 400 Mg Tablet PO 03/13/23 20:59 400 mg BID RYAN Administration Melatonin 5 mg 03/13/22 22:00 03/13/22 21:25 Melatonin 5 Mg Tablet PO 03/13/23 21:59 5 mg QHS RYAN Administration Miscellaneous Medication 50 ml 03/10/22 00:59 03/11/22 17:11 Greenfrog Suspension 50 Ml Bottle PO 03/10/23 00:58 50 ml Q6H PRN Administration Cramping Nicotine 1 each 03/08/22 19:30 03/14/22 09:36 Nicotine Patch 21 Mg/24hr 1 Each Patch.Td24 TRANSDERML 04/18/22 09:01 Not Given DAILY RYAN Ondansetron HCl 4 mg 03/09/22 23:43 03/11/22 19:23 Ondansetron 4 Mg/2 Ml Vial IV 03/09/23 23:42 4 mg Q6H PRN Administration NAUSEA/VOMITING Oxycodone/Acetaminophen 1 tab 03/11/22 09:39 03/11/22 15:20 Oxycodone/Acetaminophen 5-325 Mg Tablet PO 1 tab Q4H PRN Administration Pain Pantoprazole Sodium 40 mg 03/11/22 23:15 03/14/22 09:46 Pantoprazole 40 Mg Vial IV-PUSH 03/11/23 23:14 40 mg BID RYAN Administration Promethazine HCl 12.5 mg 03/11/22 21:18 03/11/22 22:17 Promethazine 25 Mg/Ml Vial IV-PUSH 03/11/23 21:17 12.5 mg Q6H PRN Administration Nausea And Vomiting Quetiapine Fumarate 100 mg 03/10/22 22:00 03/13/22 21:25 Quetiapine Fumarate 100 Mg Tablet PO 03/10/23 21:59 100 mg QHS RYAN Administration Sodium Chloride 0 ml 03/08/22 13:12 03/12/22 08:43 Sodium Chloride 0.9 % 10 Ml Syringe IV-PUSH 03/08/23 13:11 20 ml PRN PRN Administration Flush Sodium Chloride 10 ml 03/08/22 14:18 03/12/22 08:43 Sodium Chloride 0.9 % 10 Ml Vial.Pf INJECTION 03/08/23 14:17 10 ml Q4H PRN Administration Ativan dilution Sodium Chloride 10 ml 03/08/22 18:24 Sodium Chloride 0.9 % 10 Ml Vial.Pf INJECTION 03/08/23 18:23 Q4H PRN Ativan dilution Sodium Chloride 1 gm 03/10/22 14:00 03/14/22 09:30 Sodium Chloride 1 Gm Tablet PO 03/10/23 13:59 1 gm TID RYAN Administration Sodium Chloride 10 ml 03/11/22 21:18 Sodium Chloride 0.9 % 10 Ml Vial.Pf INJECTION 03/11/23 21:17 PRN PRN Promethazine Dilution Sodium Chloride 10 ml 03/11/22 23:05 03/13/22 21:25 Sodium Chloride 0.9 % 10 Ml Vial.Pf INJECTION 03/11/23 23:04 10 ml PRN PRN Administration Dilution Sodium Chloride 10 ml 03/11/22 23:05 Sodium Chloride 0.9 % 10 Ml Syringe IV-PUSH 03/11/23 23:04 PRN PRN Flush Thiamine HCl 100 mg 03/11/22 09:45 03/12/22 13:55 Thiamine 100 Mg Tablet PO 03/11/23 09:44 Not Given DAILY RYAN A&P - Gastroenterology Assessment/Plan (1) Duodenitis: Code(s): K29.80 - Duodenitis without bleeding Status: Acute (2) Metabolic encephalopathy: Code(s): G93.41 - Metabolic encephalopathy Status: Acute Plan I suspect she had a postoperative ileus which is resolving. She also had what appears to be significant duodenitis on imaging. -Recommend continuing postoperative care for ileus, advance diet as tolerated. Up out of bed is much as possible and working with physical therapy. Avoid narcotics as able. -Recommend high-dose PPIs 40 mg twice daily for 8 weeks. If she needs NSAID useafter that then I would recommend 20 mg daily for prophylaxis. Otherwise PPIs can be stopped after 8 weeks. Thank you for this consult, there is little further to add from a GI standpoint. I will sign off at this time. Documented By: Skyler Ro MD 03/14/221331 Signed By: <Electronically signed by Skyler Ro MD> 03/14/22 1334 [facility] Work Phone: [phone]) 684-516712-06-2022 Progress note Author Wilian Pearson [facility] March 13, 2022 7:26pm Note Date/Time March 13, 2022 1 :49pm [facility] [address] [place] [address] Hospitalist Progress Note Signed Patient: Guera Sanchez MR#: [id number] : 1955 Acct:[id number] Age/Sex: 66 / F Adm Date: 2 Loc: Room: [address] [place] [address] Type: ADM IN Attending Dr: Wilian Pearson MD Copies to: ~ Date of Service: 03/13/2022 Subjective Subjective Narrative: Patient seen and examined. Still with NG, tolerated clamping, but has had good amount of bile drainage per documentation. Patient reports she had a BM about 10a this AM. Asking for a pepsi with ice, denies nausea or abdominal pain Exam Physical Exam Vital Signs: Temp Pulse Resp BP Pulse Ox O2 Del Method O2 Flow Rate 97.5 F L 114 H 16 153/68 H 97 Room Air 2 03/13/22 08:00 03/13/22 08:00 03/13/22 08:00 03/13/22 08:00 03/13/22 08:00 03/13/22 08:00 03/09/22 11:00 Narrative: Alert, in bed, no distress at rest, ill appearing Tachycardia no abnormal heart tones dimin without wheeze or rhonchi, RA S/NT, hypoactive, obese, NG clamped- bile drainage, lewis dark richie urine no edema BLE, calves nontender, SCDs on A&Ox3, follows commands for exam, speech clear, equal hand grasps and facial symmetry Left upper arm dressing in place, left hand edema Objective Lab Results CBC & Chem 7: 03/13/22 05:30 03/13/22 05:30 Microbiology Results Microbiology 03/08/22 14:33 Blood - Right Hand Blood Culture - Preliminary Gram Positive Bacilli 03/11/22 05:43 Blood - Right Hand Blood Culture - Preliminary No Growth 2 Days 03/11/22 05:40 Blood - Right Forearm Blood Culture - Preliminary No Growth 2 Days 03/08/22 15:01 Blood - Right Wrist Blood Culture - Preliminary No Growth 4 Days Meds Allergies and Active Meds Allergies No Known Allergies Allergy (Verified 02/20/22 14:07) Active Meds: Active Medications Generic Name Dose Route Start Last Admin Trade Name Freq PRN Reason Stop Dose Admin Amlodipine Besylate 5 mg 03/11/22 09:05 03/13/22 08:21 Amlodipine 5 Mg Tablet PO 03/11/23 09:04 5 mg DAILY RYAN Administration Aspirin 81 mg 03/11/22 09:35 03/12/22 13:54 Aspirin 81 Mg Tab.Chew PO 03/11/23 09:34 Not Given DAILY RYAN Atorvastatin Calcium 10 mg 03/10/22 09:00 03/12/22 13:54 Atorvastatin 10 Mg Tablet PO 03/10/23 08:59 Not Given QAM RYAN Citalopram Hydrobromide 80 mg 03/10/22 09:00 03/13/22 08:20 Citalopram 40 Mg Tablet PO 03/10/23 08:59 80 mg QAM RYAN Administration Dextrose 0 gm 03/08/22 18:44 Dextrose 20 % In Water 10 Gm/50 Ml Syringe IV-PUSH 03/08/23 18:43 PRN PRN Hypoglycemia Folic Acid 1 mg 03/11/22 09:45 03/12/22 13:54 Folic Acid 1 Mg Tablet PO 03/11/23 09:44 Not Given DAILY RYAN Glucose 0 gm 03/08/22 18:44 Dextrose 40% Gel 15 Gm Tube PO 03/08/23 18:43 PRN PRN Hypoglycemia Hydralazine HCl 10 mg 03/08/22 18:31 03/11/22 19:32 Hydralazine 20 Mg/Ml Vial IV-PUSH 03/08/23 18:30 10 mg Q4H PRN Administration if SBP > 185 Hydrochlorothiazide 12.5 mg 03/11/22 09:45 03/11/22 09:47 Hydrochlorothiazide 12.5 Mg Tablet PO 03/11/23 09:44 12.5 mg DAILY RYAN Administration Sodium Chloride 1,000 mls @ 75 mls/hr 03/11/22 09:15 03/13/22 08:20 0.9% Sodium Chloride 1,000 Ml IV 03/11/23 09:14 75 mls/hr .[id number] RYAN Administration Ertapenem 1 gm in 100 mls @ 200 mls/hr 03/12/22 08:30 03/13/22 08:21 Invanz IV 200 mls/hr Q24H RYAN Administration Insulin Aspart 0 units 03/08/22 22:00 03/13/22 12:16 Insulin Aspart 300 Units/3 Ml Insuln.Pen SUBCUT 03/08/23 21:59 Not Given TID.WM.HS RYAN Protocol Insulin Glargine 5 units 03/11/22 08:00 03/11/22 08:24 Insulin Glargine 300 Units/3 Ml Insuln.Pen SUBCUT 03/11/23 07:59 5 units DAILY.WITH.BKFAST RYAN Administration Irbesartan 300 mg 03/10/22 11:15 03/13/22 08:21 Irbesartan 300 Mg Tablet PO 03/10/23 11:14 300 mg DAILY RYAN Administration Liothyronine Sodium 10 mcg 03/10/22 11:15 03/13/22 08:21 Liothyronine 5 Mcg Tablet PO 03/10/23 11:14 10 mcg DAILY RYAN Administration Lorazepam 1 mg 03/08/22 18:24 03/12/22 06:02 Lorazepam 2 Mg/Ml Vial IV-PUSH 09/04/22 18:23 1 mg Q4H PRN Administration Agitation Magnesium Oxide 400 mg 03/13/22 21:00 Magnesium Oxide 400 Mg Tablet PO 03/13/23 20:59 BID RYAN Miscellaneous Medication 50 ml 03/10/22 00:59 03/11/22 17:11 Greenfrog Suspension 50 Ml Bottle PO 03/10/23 00:58 50 ml Q6H PRN Administration Cramping Nicotine 1 each 03/08/22 19:30 03/13/22 08:21 Nicotine Patch 21 Mg/24hr 1 Each Patch.Td24 TRANSDERML 04/18/22 09:01 Not Given DAILY RYAN Ondansetron HCl 4 mg 03/09/22 23:43 03/11/22 19:23 Ondansetron 4 Mg/2 Ml Vial IV 03/09/23 23:42 4 mg Q6H PRN Administration NAUSEA/VOMITING Oxycodone/Acetaminophen 1 tab 03/11/22 09:39 03/11/22 15:20 Oxycodone/Acetaminophen 5-325 Mg Tablet PO 1 tab Q4H PRN Administration Pain Pantoprazole Sodium 40 mg 03/11/22 23:15 03/13/22 08:20 Pantoprazole 40 Mg Vial IV-PUSH 03/11/23 23:14 40 mg BID RYAN Administration Promethazine HCl 12.5 mg 03/11/22 21:18 03/11/22 22:17 Promethazine 25 Mg/Ml Vial IV-PUSH 03/11/23 21:17 12.5 mg Q6H PRN Administration Nausea And Vomiting Quetiapine Fumarate 100 mg 03/10/22 22:00 03/12/22 23:02 Quetiapine Fumarate 100 Mg Tablet PO 03/10/23 21:59 100 mg QHS RYAN Administration Sodium Chloride 0 ml 03/08/22 13:12 03/12/22 08:43 Sodium Chloride 0.9 % 10 Ml Syringe IV-PUSH 03/08/23 13:11 20 ml PRN PRN Administration Flush Sodium Chloride 10 ml 03/08/22 14:18 03/12/22 08:43 Sodium Chloride 0.9 % 10 Ml Vial.Pf INJECTION 03/08/23 14:17 10 ml Q4H PRN Administration Ativan dilution Sodium Chloride 10 ml 03/08/22 18:24 Sodium Chloride 0.9 % 10 Ml Vial.Pf INJECTION 03/08/23 18:23 Q4H PRN Ativan dilution Sodium Chloride 1 gm 03/10/22 14:00 03/13/22 08:21 Sodium Chloride 1 Gm Tablet PO 03/10/23 13:59 1 gm TID RYAN Administration Sodium Chloride 10 ml 03/11/22 21:18 Sodium Chloride 0.9 % 10 Ml Vial.Pf INJECTION 03/11/23 21:17 PRN PRN Promethazine Dilution Sodium Chloride 10 ml 03/11/22 23:05 03/13/22 08:20 Sodium Chloride 0.9 % 10 Ml Vial.Pf INJECTION 03/11/23 23:04 10 ml PRN PRN Administration Dilution Sodium Chloride 10 ml 03/11/22 23:05 Sodium Chloride 0.9 % 10 Ml Syringe IV-PUSH 03/11/23 23:04 PRN PRN Flush Thiamine HCl 100 mg 03/11/22 09:45 03/12/22 13:55 Thiamine 100 Mg Tablet PO 03/11/23 09:44 Not Given DAILY RYAN A&P - Hospitalist Assessment/Plan (1) Altered mental status: (2) Hypokalemia: (3) Hyponatremia: (4) Hypomagnesemia: (5) Metabolic encephalopathy: Plan Metabolic encephalopathy?resolved PRES THC use ?CT brain -nonacute ?MRI - chronic vessel ischemic changes, findings of possible mild posterior reversible encephalopathy ?CXR nonacute, UDS + THC, normal ETOH, normal NH4, UA noninfectious -Blood culture 03/08 -1 of 2 positive gram positive bacilli, repeat culture 03/11 NGTD- Zosyn initiated on admit DC'd 03/09 -neurology following, will need outpatient f/u -polypharmacy could also be contributory- gabapentin and cyclobenzaprine on hold, opiates with recent postop status, psych meds, Abdominal Pain, nausea/ vomiting 03/11, resolved Leukocytosis -GB ultrasound limited study, cholelithiasis -CT abdomen pelvis dilated duodenum with inflammatory changes adjacent to duodenum possibly representing duodenitis. Cholelithiasis with findings suspicious for acute cholecystitis with gallbladder distention and possible gallbladderwall thickening. CBD dilated at 9 mm. -GI consult appreciated, consider postop ileus -NG dc per GI -Ertapenem initiated 03/12 with leukocytosis (had been on Zosyn 03/08-03/09) -Pantoprazole IV Hypokalemia Hypomagnesemia Hyponatremia, chronic -TSH, cortisol WNL -trend labs, replete as indicated, IVF -hold HCTZ -patient was noted to be on chronic NaCl tabs at home Normocytic anemia, probably dilutional -hgb 9.7 on admit, not recent ortho OR 03/06 ?Stool for guaiac pending -03/12 transfuse 2 units PRBC with AM Hgb 7.1 -hold ASA and Enoxaparen Torsades de pointe 2/2 electrolyte abnormalities?in ED Prolonged QT ?EKG in ED with prolonged QTC of 572, trend -check echo Reported ETOH use/ abuse -vitamin therapy -CT abd no parenchymal changes to liver Chronic conditions: 1. Diabetes type?SSI, fingersticks, hold long acting insulin while NPO. Home Pioglitazone & Metformin on hold 2. Hypertension, hyperlipidemia - BP improved- amlodipine, atorvastatin, irbasartan 3. Left shoulder fracture s/p ORIF 03/06- pain control, SCDs for DVT ppx. Nursing to notify Dr Napoles office of hospitalization to determine needs for sutures, follow up imaging, therapy, etc. as she was to follow up 1wk 4. Anxiety/ Depression- Citalopram, quetiapine 5. Hypothyroid- liothyronine, TSH 1.62 Attending attestation: Patient was personally seen by me on the day of encounter. I reviewed her history and performed freedman elements of exam and formulated the plan of care and confirmed the nurse practitioner's note above. Plan of care reflects my direct input Documented By: TANIYA Adames 2 [id number] Signed By: <Electronically signed by ANP-JORDEN Hull> 03/13/22 1451 <Electronically signed by Wilian Pearson MD> 03/13/22 [facility] Work Phone: [phone]) 970-732512-06-2022 Progress note Author Skyler Ro [facility] March 13, 2022 1:55pm Note Date/Time March 13, 2022 9 :35am [facility] [address] [place] [address] Gastroenterology PN Signed Patient: Guera Sanchez MR#: [id number] : 1955 Acct:[id number] Age/Sex: 66 / F Adm Date: 2 Loc: 4N Room: 1R9176-6 Type: ADM IN Attending Dr: Wilian Pearson MD Copies to: MD Ash Chavez MD Frederick E Doamekpor, MD~ Date of Service: 03/13/2022 Subjective Subjective Narrative: No acute events overnight. She is feeling much better this morning, no abdominal pain. She is passing flatus but no bowel movement yet. Exam Physical Exam Vital Signs: Temp Pulse Resp BP Pulse Ox O2 Del Method O2 Flow Rate 98.3 F 109 H 16 133/79 98 Room Air 2 03/13/22 07:47 03/13/22 07:47 03/13/22 07:47 03/13/22 07:47 03/13/22 07:47 03/13/22 07:47 03/09/22 11:00 Const General: cooperative and comfortable HEENT Head: normocephalic and atraumatic Eyes Sclera: sclerae normal EOM: EOM intact bilaterally Resp Effort & Inspection: normal respiratory effort and able to speak in complete sentences GI Inspection: non-distended Palpation: soft Objective Allergies and Medications Allergies/Adverse Reactions: Allergies Allergy/AdvReac Type Severity Reaction Status Date / Time No Known Allergies Allergy Verified 02/20/22 14:07 Active Meds: Active Medications Generic Name Dose Route Start Last Admin Trade Name Freq PRN Reason Stop Dose Admin Amlodipine Besylate 5 mg 03/11/22 09:05 03/13/22 08:21 Amlodipine 5 Mg Tablet PO 03/11/23 09:04 5 mg DAILY RYAN Administration Aspirin 81 mg 03/11/22 09:35 03/12/22 13:54 Aspirin 81 Mg Tab.Chew PO 03/11/23 09:34 Not Given DAILY RYAN Atorvastatin Calcium 10 mg 03/10/22 09:00 03/12/22 13:54 Atorvastatin 10 Mg Tablet PO 03/10/23 08:59 Not Given QAM RYAN Citalopram Hydrobromide 80 mg 03/10/22 09:00 03/13/22 08:20 Citalopram 40 Mg Tablet PO 03/10/23 08:59 80 mg QAM RYAN Administration Dextrose 0 gm 03/08/22 18:44 Dextrose 20 % In Water 10 Gm/50 Ml Syringe IV-PUSH 03/08/23 18:43 PRN PRN Hypoglycemia Folic Acid 1 mg 03/11/22 09:45 03/12/22 13:54 Folic Acid 1 Mg Tablet PO 03/11/23 09:44 Not Given DAILY RYAN Glucose 0 gm 03/08/22 18:44 Dextrose 40% Gel 15 Gm Tube PO 03/08/23 18:43 PRN PRN Hypoglycemia Hydralazine HCl 10 mg 03/08/22 18:31 03/11/22 19:32 Hydralazine 20 Mg/Ml Vial IV-PUSH 03/08/23 18:30 10 mg Q4H PRN Administration if SBP > 185 Hydrochlorothiazide 12.5 mg 03/11/22 09:45 03/11/22 09:47 Hydrochlorothiazide 12.5 Mg Tablet PO 03/11/23 09:44 12.5 mg DAILY RYAN Administration Sodium Chloride 1,000 mls @ 75 mls/hr 03/11/22 09:15 03/13/22 08:20 0.9% Sodium Chloride 1,000 Ml IV 03/11/23 09:14 75 mls/hr .[id number] RYAN Administration Ertapenem 1 gm in 100 mls @ 200 mls/hr 03/12/22 08:30 03/13/22 08:21 Invanz IV 200 mls/hr Q24H RYAN Administration Magnesium Sulfate 4 gm in 100 mls @ 25 mls/hr 03/13/22 08:40 Magnesium Sulf 4 Gm-*Swfi* IV 03/13/22 12:39 ONCE ONE Insulin Aspart 0 units 03/08/22 22:00 03/13/22 08:21 Insulin Aspart 300 Units/3 Ml Insuln.Pen SUBCUT 03/08/23 21:59 Not Given TID.WM.HS RYAN Protocol Insulin Glargine 5 units 03/11/22 08:00 03/11/22 08:24 Insulin Glargine 300 Units/3 Ml Insuln.Pen SUBCUT 03/11/23 07:59 5 units DAILY.WITH.BKFAST RYAN Administration Irbesartan 300 mg 03/10/22 11:15 03/13/22 08:21 Irbesartan 300 Mg Tablet PO 03/10/23 11:14 300 mg DAILY RYAN Administration Liothyronine Sodium 10 mcg 03/10/22 11:15 03/13/22 08:21 Liothyronine 5 Mcg Tablet PO 03/10/23 11:14 10 mcg DAILY RYAN Administration Lorazepam 1 mg 03/08/22 18:24 03/12/22 06:02 Lorazepam 2 Mg/Ml Vial IV-PUSH 09/04/22 18:23 1 mg Q4H PRN Administration Agitation Magnesium Oxide 400 mg 03/13/22 21:00 Magnesium Oxide 400 Mg Tablet PO 03/13/23 20:59 BID RYAN Miscellaneous Medication 50 ml 03/10/22 00:59 03/11/22 17:11 Greenfrog Suspension 50 Ml Bottle PO 03/10/23 00:58 50 ml Q6H PRN Administration Cramping Nicotine 1 each 03/08/22 19:30 03/13/22 08:21 Nicotine Patch 21 Mg/24hr 1 Each Patch.Td24 TRANSDERML 04/18/22 09:01 Not Given DAILY RYAN Ondansetron HCl 4 mg 03/09/22 23:43 03/11/22 19:23 Ondansetron 4 Mg/2 Ml Vial IV 03/09/23 23:42 4 mg Q6H PRN Administration NAUSEA/VOMITING Oxycodone/Acetaminophen 1 tab 03/11/22 09:39 03/11/22 15:20 Oxycodone/Acetaminophen 5-325 Mg Tablet PO 1 tab Q4H PRN Administration Pain Pantoprazole Sodium 40 mg 03/11/22 23:15 03/13/22 08:20 Pantoprazole 40 Mg Vial IV-PUSH 03/11/23 23:14 40 mg BID RYAN Administration Promethazine HCl 12.5 mg 03/11/22 21:18 03/11/22 22:17 Promethazine 25 Mg/Ml Vial IV-PUSH 03/11/23 21:17 12.5 mg Q6H PRN Administration Nausea And Vomiting Quetiapine Fumarate 100 mg 03/10/22 22:00 03/12/22 23:02 Quetiapine Fumarate 100 Mg Tablet PO 03/10/23 21:59 100 mg QHS RYAN Administration Sodium Chloride 0 ml 03/08/22 13:12 03/12/22 08:43 Sodium Chloride 0.9 % 10 Ml Syringe IV-PUSH 03/08/23 13:11 20 ml PRN PRN Administration Flush Sodium Chloride 10 ml 03/08/22 14:18 03/12/22 08:43 Sodium Chloride 0.9 % 10 Ml Vial.Pf INJECTION 03/08/23 14:17 10 ml Q4H PRN Administration Ativan dilution Sodium Chloride 10 ml 03/08/22 18:24 Sodium Chloride 0.9 % 10 Ml Vial.Pf INJECTION 03/08/23 18:23 Q4H PRN Ativan dilution Sodium Chloride 1 gm 03/10/22 14:00 03/13/22 08:21 Sodium Chloride 1 Gm Tablet PO 03/10/23 13:59 1 gm TID RYAN Administration Sodium Chloride 10 ml 03/11/22 21:18 Sodium Chloride 0.9 % 10 Ml Vial.Pf INJECTION 03/11/23 21:17 PRN PRN Promethazine Dilution Sodium Chloride 10 ml 03/11/22 23:05 03/13/22 08:20 Sodium Chloride 0.9 % 10 Ml Vial.Pf INJECTION 03/11/23 23:04 10 ml PRN PRN Administration Dilution Sodium Chloride 10 ml 03/11/22 23:05 Sodium Chloride 0.9 % 10 Ml Syringe IV-PUSH 03/11/23 23:04 PRN PRN Flush Thiamine HCl 100 mg 03/11/22 09:45 03/12/22 13:55 Thiamine 100 Mg Tablet PO 03/11/23 09:44 Not Given DAILY RYAN A&P - Gastroenterology Assessment/Plan (1) Duodenitis: Code(s): K29.80 - Duodenitis without bleeding Status: Acute (2) Altered mental status: Code(s): R41.82 - Altered mental status, unspecified Status: Acute Plan Her abdominal pain is improving. From a GI standpoint is okay to discharge her NG tube and advance to a clear liquid diet. Continue PPIs. Thank you for this consult, I will continue to follow with Documented By: Skyler Ro MD 03/13/22 0974 Signed By: <Electronically signed by Skyler Ro MD> 03/13/22 9530 [facility] Work Phone: [phone] 329-240112-05-2022 Progress note Author Wilian Pearson [facility] March 12, 2022 6:51pm Note Date/Time March 12, 2022 1 1:15am [facility] [address] [place] [address] Hospitalist Progress Note Signed Patient: Guera Sanchez MR#: [id number] : 1955 Acct:[id number] Age/Sex: 66 / F Adm Date: 2 Loc: 4N Room: 5R1436-0 Type: ADM IN Attending Dr: Wilian Pearson MD Copies to: ~ Date of Service: 03/12/2022 Subjective Subjective Narrative: Patient seen and examined, my first time meeting her. Events from last evening reviewed. Labs and meds reviewed. She remains NPO with NG in place to suction. States she is feeling better. Denies bloody emesis or any evidence of bleedingreported, no stool yet to check for OB with further drop in hemoglobin, could partly be dilutional. She has no recall of left arm surgery from 03/06 for postfracture intervention, minimal pain. Cannot recall last BM, denies constipation, no nausea or abdominal pain. Passing flatus. Making adequate urine Exam Physical Exam Vital Signs: Temp Pulse Resp BP Pulse Ox O2 Del Method O2 Flow Rate 97.9 F 108 H 20 152/80 H 96 Room Air 2 03/12/22 07:52 03/12/22 07:52 03/12/22 07:52 03/12/22 07:52 03/12/22 07:52 03/12/22 07:52 03/09/22 11:00 Narrative: Alert, in bed, no distress at rest, ill appearing Tachycardia no abnormal heart tones dimin without wheeze or rhonchi, RA S/NT, hypoactive, obese, NG to suction- bile drainage, lewis dark richie urine no edema BLE, calves nontender, SCDs on A&Ox3, follows commands for exam, speech clear, equal hand grasps and facial symmetry Left upper arm dressing in place Objective Lab Results CBC & Chem 7: 03/12/22 06:09 03/12/22 06:09 Microbiology Results Microbiology 03/08/22 14:33 Blood - Right Hand Blood Culture - Preliminary Gram Positive Bacilli 03/11/22 05:43 Blood - Right Hand Blood Culture - Preliminary No Growth 1 Day 03/11/22 05:40 Blood - Right Forearm Blood Culture - Preliminary No Growth 1 Day 03/08/22 15:01 Blood - Right Wrist Blood Culture - Preliminary No Growth 3 Days Meds Allergies and Active Meds Allergies No Known Allergies Allergy (Verified 02/20/22 14:07) Active Meds: Active Medications Generic Name Dose Route Start Last Admin Trade Name Freq PRN Reason Stop Dose Admin Amlodipine Besylate 5 mg 03/11/22 09:05 03/11/22 09:38 Amlodipine 5 Mg Tablet PO 03/11/23 09:04 5 mg DAILY RYAN Administration Aspirin 81 mg 03/11/22 09:35 03/11/22 09:47 Aspirin 81 Mg Tab.Chew PO 03/11/23 09:34 81 mg DAILY RYAN Administration Atorvastatin Calcium 10 mg 03/10/22 09:00 03/11/22 08:23 Atorvastatin 10 Mg Tablet PO 03/10/23 08:59 10 mg QAM RYAN Administration Citalopram Hydrobromide 80 mg 03/10/22 09:00 03/11/22 08:23 Citalopram 40 Mg Tablet PO 03/10/23 08:59 80 mg QAM RYAN Administration Dextrose 0 gm 03/08/22 18:44 Dextrose 20 % In Water 10 Gm/50 Ml Syringe IV-PUSH 03/08/23 18:43 PRN PRN Hypoglycemia Folic Acid 1 mg 03/11/22 09:45 03/11/22 09:47 Folic Acid 1 Mg Tablet PO 03/11/23 09:44 1 mg DAILY RYAN Administration Glucose 0 gm 03/08/22 18:44 Dextrose 40% Gel 15 Gm Tube PO 03/08/23 18:43 PRN PRN Hypoglycemia Hydralazine HCl 10 mg 03/08/22 18:31 03/11/22 19:32 Hydralazine 20 Mg/Ml Vial IV-PUSH 03/08/23 18:30 10 mg Q4H PRN Administration if SBP > 185 Hydrochlorothiazide 12.5 mg 03/11/22 09:45 03/11/22 09:47 Hydrochlorothiazide 12.5 Mg Tablet PO 03/11/23 09:44 12.5 mg DAILY RYAN Administration Sodium Chloride 1,000 mls @ 75 mls/hr 03/11/22 09:15 03/12/22 02:25 0.9% Sodium Chloride 1,000 Ml IV 03/11/23 09:14 75 mls/hr .[id number] RYAN Administration Ertapenem 1 gm in 100 mls @ 200 mls/hr 03/12/22 08:30 03/12/22 08:54 Invanz IV 200 mls/hr Q24H RYAN Administration Potassium Chloride 40 meq/ 520 mls @ 130 mls/hr 03/12/22 08:27 03/12/22 09:29 Sodium Chloride IV 03/12/22 12:26 130 mls/hr ONCE ONE Administration Sodium Chloride 500 mls @ 20 mls/hr 03/12/22 08:27 0.9 % Sodium Chloride IV 03/13/22 08:26 PROTOCOL PRN BLOOD TRANSFUSION Insulin Aspart 0 units 03/08/22 22:00 03/12/22 08:49 Insulin Aspart 300 Units/3 Ml Insuln.Pen SUBCUT 03/08/23 21:59 Not Given TID.WM.HS RYAN Protocol Insulin Glargine 5 units 03/11/22 08:00 03/11/22 08:24 Insulin Glargine 300 Units/3 Ml Insuln.Pen SUBCUT 03/11/23 07:59 5 units DAILY.WITH.BKFAST RYAN Administration Irbesartan 300 mg 03/10/22 11:15 03/11/22 08:23 Irbesartan 300 Mg Tablet PO 03/10/23 11:14 300 mg DAILY RYAN Administration Liothyronine Sodium 10 mcg 03/10/22 11:15 03/11/22 08:23 Liothyronine 5 Mcg Tablet PO 03/10/23 11:14 10 mcg DAILY RYAN Administration Lorazepam 1 mg 03/08/22 18:24 03/12/22 06:02 Lorazepam 2 Mg/Ml Vial IV-PUSH 09/04/22 18:23 1 mg Q4H PRN Administration Agitation Miscellaneous Medication 50 ml 03/10/22 00:59 03/11/22 17:11 Greenfrog Suspension 50 Ml Bottle PO 03/10/23 00:58 50 ml Q6H PRN Administration Cramping Nicotine 1 each 03/08/22 19:30 03/12/22 09:58 Nicotine Patch 21 Mg/24hr 1 Each Patch.Td24 TRANSDERML 04/18/22 09:01 Not Given DAILY RYAN Ondansetron HCl 4 mg 03/09/22 23:43 03/11/22 19:23 Ondansetron 4 Mg/2 Ml Vial IV 03/09/23 23:42 4 mg Q6H PRN Administration NAUSEA/VOMITING Oxycodone/Acetaminophen 1 tab 03/11/22 09:39 03/11/22 15:20 Oxycodone/Acetaminophen 5-325 Mg Tablet PO 1 tab Q4H PRN Administration Pain Pantoprazole Sodium 40 mg 03/11/22 23:15 03/12/22 08:42 Pantoprazole 40 Mg Vial IV-PUSH 03/11/23 23:14 40 mg BID RYAN Administration Promethazine HCl 12.5 mg 03/11/22 21:18 03/11/22 22:17 Promethazine 25 Mg/Ml Vial IV-PUSH 03/11/23 21:17 12.5 mg Q6H PRN Administration Nausea And Vomiting Quetiapine Fumarate 100 mg 03/10/22 22:00 03/11/22 23:01 Quetiapine Fumarate 100 Mg Tablet PO 03/10/23 21:59 Not Given QHS RYAN Sodium Chloride 0 ml 03/08/22 13:12 03/12/22 08:43 Sodium Chloride 0.9 % 10 Ml Syringe IV-PUSH 03/08/23 13:11 20 ml PRN PRN Administration Flush Sodium Chloride 10 ml 03/08/22 14:18 03/12/22 08:43 Sodium Chloride 0.9 % 10 Ml Vial.Pf INJECTION 03/08/23 14:17 10 ml Q4H PRN Administration Ativan dilution Sodium Chloride 10 ml 03/08/22 18:24 Sodium Chloride 0.9 % 10 Ml Vial.Pf INJECTION 03/08/23 18:23 Q4H PRN Ativan dilution Sodium Chloride 1 gm 03/10/22 14:00 03/12/22 09:59 Sodium Chloride 1 Gm Tablet PO 03/10/23 13:59 Not Given TID RYAN Sodium Chloride 10 ml 03/11/22 21:18 Sodium Chloride 0.9 % 10 Ml Vial.Pf INJECTION 03/11/23 21:17 PRN PRN Promethazine Dilution Sodium Chloride 10 ml 03/11/22 23:05 Sodium Chloride 0.9 % 10 Ml Vial.Pf INJECTION 03/11/23 23:04 PRN PRN Dilution Sodium Chloride 10 ml 03/11/22 23:05 Sodium Chloride 0.9 % 10 Ml Syringe IV-PUSH 03/11/23 23:04 PRN PRN Flush Thiamine HCl 100 mg 03/11/22 09:45 03/11/22 09:47 Thiamine 100 Mg Tablet PO 03/11/23 09:44 100 mg DAILY YRAN Administration A&P - Hospitalist Assessment/Plan (1) Altered mental status: (2) Hypokalemia: (3) Hyponatremia: (4) Hypomagnesemia: (5) Metabolic encephalopathy: Plan Metabolic encephalopathy?resolved PRES THC use ?CT brain -nonacute ?MRI - chronic vessel ischemic changes, findings of possible mild posterior reversible encephalopathy ?CXR nonacute, UDS + THC, evan ETOH, normal NH4, UA noninfectious -Blood culture 03/08 -1 of 2 positive gram positive bacilli, repeat culture 03/11 NGTD- Zosyn initiated on admit DC'd 03/09 -neurology following, will need outpatient f/u -polypharmacy could also be contributory- gabapentin and cyclobenzaprine on hold, opiates with recent postop status, psych meds, Abdominal Pain, nausea/ vomiting 03/11 Leukocytosis -GB ultrasound limited study, cholelithiasis -CT abdomen pelvis dilated duodenum with inflammatory changes adjacent to duodenum possibly representing duodenitis. Cholelithiasis with findings suspicious for acute cholecystitis with gallbladder distention and possible gallbladder wall thickening. CBD dilated at 9 mm. -GI consult pending -NG to LIWS, NPO -Ertapenem initiated 03/12 with leukocytosis (had been on Zosyn 03/08-03/09) -Pantoprazole IV Hypokalemia Hypomagnesemia Hyponatremia, chronic -TSH, cortisol WNL -trend labs, replete as indicated, IVF -hold HCTZ -patient was noted to be on chronic NaCl tabs at home Normocytic anemia, probably dilutional -hgb 9.7 on admit, not recent ortho OR 03/06 ?Stool for guaiac pending -03/12 transfuse 2 units PRBC with AM Hgb 7.1 -hold ASA and Enoxaparen [place] 2/2 electrolyte abnormalities?in ED Prolonged QT ?EKG in ED with prolonged QTC of 572, trend -check echo Reported ETOH use/ abuse -vitamin therapy -CT abd no parenchymal changes to liver Chronic conditions: 1. Diabetes type?SSI, fingersticks, hold long acting insulin while NPO. Home Pioglitazone & Metformin on hold 2. Hypertension, hyperlipidemia - BP improved- amlodipine, atorvastatin, irbasartan 3. Left shoulder fracture s/p ORIF 03/06- pain control, SCDs for DVT ppx 4. Anxiety/ Depression- Citalopram, quetiapine 5. Hypothyroid- liothyronine, TSH 1.62 Attending attestation: Patient was personally seen by me on the day of encounter. I reviewed her history and performed freedman elements of exam and formulated the plan of care and confirmed the nurse practitioners note above. Plan of care reflects my direct input. Documented By: Nicolasa Hull, TANIYA 2 1115 Signed By: <Electronically signed by ANP-BC Nicolasa Hull> 03/12/22 1329 <Electronically signed by Wilian Pearson MD> 03/12/22 1851 [facility] Work Phone: [phone] 253-767612-05-2022 Consult note Author Skyler Ro [facility] March 12, 2022 3:43pm Note Date/Time March 12, 2022 3 :35pm [facility] [address] [place] [address] Gastroenterology Consult Note Signed with Addenda Patient: Guera Sanchez MR#: [id number] : 1955 Acct:[id number] Age/Sex: 66 / F Adm Date: 2 Loc: Room: [address] [place] [address] Type: ADM IN Attending Dr: Wilian Pearson MD Copies to: MD Ash Chavez MD Frederick E Doamekpor, MD~ ADDENDUM1 Addendum: Its also possible she has developed some degree ileus in the post- operative setting which could be worse ongoing narcotic use. Recommend OOB and working with PT as much as able. Addendum Documented By: Skyler Ro MD 03/12/22 1543 Addendum Signed By: <Electronically signed by Skyler Ro MD> 03/12/22 1543 HPI Data of Consult Date of Consultation: 03/12/22 Requesting Physician: Wilian Pearson MD Consult Narrative History of present illness: Ms. Sanchez is a 66 year old female admitted with altered mental status who I am consulted for nausea, abdominal pain, abnormal CT findings. She recently had shoulder surgery, she is unclear if she was taking any NSAIDs after this. However she states she does not remember much in the postoperative setting for the past week. Last night she developed acute nausea with emesis and a CT scan showed a dilated proximal duodenum with surrounding inflammatory changes and a possible concern for acute cholecystitis. There is some concern that the CBD was dilated to 9 mm as well. Follow-up ultrasound shows cholelithiasis without cholecystitis and a normal CBD. Since admission her hemoglobin has fluctuated between 7 and 8 without any overt GI bleeding. She initially was hyponatremic and received several liters of fluid. cc:: CC: Wilian Pearson MD Review of Systems Constitutional Constitutional: Denies poor appetite and Denies weight loss Eyes Eyes: Denies change in vision and Denies eye discharge ENT Ears, Nose, Mouth, and Throat: Denies nasal discharge, Denies sore throat and Denies vertigo Cardiovascular Cardiovascular: Denies chest pain and Denies dyspnea on exertion Respiratory Respiratory: Denies chest congestion, Denies cough and Denies dyspnea on exertion Gastrointestinal Gastrointestinal: Reports as per HPI Musculoskeletal Musculoskeletal: Denies arthralgias, Denies muscle weakness and Denies numbness Integumentary/Breasts Skin/Breast: Denies change in pigmentation and Denies rash Neurologic Neurologic: Denies numbness and Denies vertigo Psychiatric Psychiatric: Denies anxiety and Denies depression Hematologic/Lymphatic Hematologic/Lymphatic: Denies easy bruising and Denies lymphadenopathy PMFSH Vaccinated for COVID-19?: Unknown Medical History Anxiety Depression Diabetes mellitus, type 2 Hypercholesteremia Hypertension Irritable bowel disease Thyroid disease Wears hearing aid in both ears Surgical History History of cataract surgery OU History of kyphoplasty History of lumbar discectomy Family History Father Depression Anxiety IBS (irritable bowel syndrome) Mother Depression Anxiety Lung cancer Social History Smoking Status: Current every day smoker Tobacco Type: cigarettes Substance Use Type: Unknown Substance Abuse Comment: Medical marijuana several times a day. Social History Comments: grandson lives with patient Meds Medications and Allergies Allergies No Known Allergies Allergy (Verified 02/20/22 14:07) Home Medications atorvastatin 10 mg tablet 10 mg PO QAM cholesterol 02/20/22 [History Confirmed 03/08/22] citalopram 40 mg tablet 80 mg PO QAM 02/20/22 [History Confirmed 03/08/22] cyclobenzaprine 10 mg tablet 10 mg PO TID PRN Muscle Spasm 02/20/22 [History Confirmed 03/08/22] gabapentin 600 mg tablet 1,200 mg PO BID pain 02/20/22 [History Confirmed 03/08/22] hydrochlorothiazide 12.5 mg tablet 12.5 mg PO DAILY 02/20/22 [History Confirmed 03/08/22] irbesartan 300 mg tablet 300 mg PO DAILY HTN 02/20/22 [History Confirmed 03/08/22] liothyronine 5 mcg tablet 10 mcg PO DAILY thyroid disorder 02/20/22 [History Confirmed 03/08/22] pioglitazone 45 mg tablet (Actos) 45 mg PO DAILY 02/20/22 [History Confirmed 03/08/22] quetiapine 100 mg tablet 100 mg PO QHS 02/20/22 [History Confirmed 03/08/22] sodium chloride 1 gram tablet 1,000 mg PO TID 03/06/22 [History Confirmed 03/08/22] cephalexin 500 mg capsule 500 mg PO Q8H #6 caps 03/07/22 [Rx Confirmed 03/08/22] ondansetron 4 mg disintegrating tablet 4 mg PO Q6H #10 tabs 03/07/22 [Rx Confirmed 03/08/22] oxycodone-acetaminophen 5 mg-325 mg tablet (Percocet) 1 tab PO Q4H PRN Pain 5 days #20 tabs 03/07/22 [Rx Confirmed 03/08/22] cetirizine 10 mg tablet (Zyrtec) 10 mg PO DAILY 03/08/22 [History Confirmed 03/08/22] metformin 850 mg tablet 850 mg PO TID 03/08/22 [History Confirmed 03/08/22] potassium chloride 20 mEq tablet,extended release(part/cryst) (Klor-Con M) 20 meq PO QID 03/08/22 [History Confirmed 03/08/22] aspirin 81 mg tablet 81 mg PO DAILY 03/11/22 [History Confirmed 03/11/22] Exam Physical Exam Vital Signs: Temp Pulse Resp BP Pulse Ox O2 Del Method O2 Flow Rate 97.7 F 117 H 20 148/76 H 96 Room Air 2 03/12/22 12:00 03/12/22 12:00 03/12/22 12:00 03/12/22 12:00 03/12/22 12:00 03/12/22 12:00 03/09/22 11:00 Const General: no acute distress and well developed HEENT Head: normocephalic and atraumatic Mouth: moist mucous membranes Eyes Sclera: sclerae normal (no scleral icterus) EOM: EOM intact bilaterally Neck Other: trachea midline Resp Effort & Inspection: normal respiratory effort and able to speak in complete sentences GI Inspection: normal to inspection and non-distended Palpation: soft and nontender Skin General: turgor normal and no jaundice Neuro General: patient alert and patient oriented x3 Psych Appearance: grossly normal Mental Status: mental status grossly normal Results Labs Labs: Laboratory Results - last 24 hr 03/11/22 03/11/22 03/11/22 16:54 19:56 21:37 Corrected WBC Uncorrected WBC Count RBC Hgb 7.7 L Hct 23.0 L MCV MCH MCHC RDW Plt Count MPV Neut % (Auto) Lymph % (Auto) [place] % (Auto) Eos % (Auto) Baso % (Auto) Nucleat RBC Rel Count Neut # (Auto) Lymph # (Auto) [place] # (Auto) Eos # (Auto) Baso # (Auto) Lymphocytes % Monocytes % Eosinophils % Metamyelocytes % Myelocytes % Segmented Neutrophils Platelet Estimate Plt Morphology Comment RBC Morphology Polychromasia Anisocytosis PHA Creatinine Clear Sodium Potassium Chloride Carbon Dioxide Anion Gap BUN Creatinine Est GFR ( Amer) Est GFR (Non-Af Amer) Glucose POC Glucose 185 218 POC Glucose Comment Glu2: cleaned meter Glu2: cleaned meter Calcium Magnesium Total Bilirubin AST ALT Alkaline Phosphatase Total Protein Albumin Globulin Albumin/Globulin Ratio Blood Type Blood Type Recheck Antibody Screen Crossmatch ([facility]G) 03/11/22 03/12/22 03/12/22 21:37 06:09 06:09 Corrected WBC 11.7 H Uncorrected WBC Count 11.7 H RBC 2.26 L Hgb 7.1 L Hct 21.1 L MCV 93.2 MCH 31.1 MCHC 33.4 RDW 14.2 Plt Count 299 MPV 8.7 Neut % (Auto) N/A Lymph % (Auto) N/A [place] % (Auto) N/A Eos % (Auto) N/A Baso % (Auto) N/A Nucleat RBC Rel Count N/A Neut # (Auto) N/A Lymph # (Auto) N/A [place] # (Auto) N/A Eos # (Auto) N/A Baso # (Auto) N/A Lymphocytes % 24 Monocytes % 6 Eosinophils % 1 Metamyelocytes % 1 H Myelocytes % 3 H Segmented Neutrophils 66 Platelet Estimate Normal Plt Morphology Comment Normal RBC Morphology N/A Polychromasia Slight Anisocytosis Slight PHA Creatinine Clear 77.58 77.02 Sodium 127 L 131 L Potassium 3.2 L 2.9 L* Chloride 90 L 91 L Carbon Dioxide 23.6 30.5 H Anion Gap 16.6 H 12.4 BUN 14 13 Creatinine 0.69 0.63 Est GFR ( Amer) > 60 > 60 Est GFR (Non-Af Amer) > 60 > 60 Glucose 226 H 156 H POC Glucose POC Glucose Comment Calcium 7.7 L 7.9 L Magnesium Total Bilirubin 0.6 AST 15 ALT 17 Alkaline Phosphatase 101 H Total Protein 5.0 L Albumin 2.3 L Globulin 2.7 Albumin/Globulin Ratio 0.9 Blood Type Blood Type Recheck Antibody Screen Crossmatch ([facility]) 03/12/22 03/12/22 03/12/22 08:15 09:24 09:28 Corrected WBC Uncorrected WBC Count RBC Hgb Hct MCV MCH MCHC RDW Plt Count MPV Neut % (Auto) Lymph % (Auto) [place] % (Auto) Eos % (Auto) Baso % (Auto) Nucleat RBC Rel Count Neut # (Auto) Lymph # (Auto) [place] # (Auto) Eos # (Auto) Baso # (Auto) Lymphocytes % Monocytes % Eosinophils % Metamyelocytes % Myelocytes % Segmented Neutrophils Platelet Estimate Plt Morphology Comment RBC Morphology Polychromasia Anisocytosis PHA Creatinine Clear Sodium Potassium Chloride Carbon Dioxide Anion Gap BUN Creatinine Est GFR ( Amer) Est GFR (Non-Af Amer) Glucose POC Glucose 159 POC Glucose Comment Glu2: cleaned meter Calcium Magnesium 1.4 L Total Bilirubin AST ALT Alkaline Phosphatase Total Protein Albumin Globulin Albumin/Globulin Ratio Blood Type O Positive Blood Type Recheck Antibody Screen Negative Crossmatch ([facility]) See Detail 03/12/22 03/12/22 10:04 11:51 Corrected WBC Uncorrected WBC Count RBC Hgb Hct MCV MCH MCHC RDW Plt Count MPV Neut % (Auto) Lymph % (Auto) [place] % (Auto) Eos % (Auto) Baso % (Auto) Nucleat RBC Rel Count Neut # (Auto) Lymph # (Auto) [place] # (Auto) Eos # (Auto) Baso # (Auto) Lymphocytes % Monocytes % Eosinophils % Metamyelocytes % Myelocytes % Segmented Neutrophils Platelet Estimate Plt Morphology Comment RBC Morphology Polychromasia Anisocytosis PHA Creatinine Clear Sodium Potassium Chloride Carbon Dioxide Anion Gap BUN Creatinine Est GFR ( Amer) Est GFR (Non-Af Amer) Glucose POC Glucose 151 POC Glucose Comment Calcium Magnesium Total Bilirubin AST ALT Alkaline Phosphatase Total Protein Albumin Globulin Albumin/Globulin Ratio Blood Type Blood Type Recheck O Positive Antibody Screen Crossmatch ([facility]) A&P - Gastroenterology Assessment/Plan (1) Altered mental status: Code(s): R41.82 - Altered mental status, unspecified Status: Acute (2) Metabolic encephalopathy: Code(s): G93.41 - Metabolic encephalopathy Status: Acute (3) Duodenitis: Code(s): K29.80 - Duodenitis without bleeding Status: Acute Plan It is possible she she was using NSAIDs and has developed duodenitis. Her dilated proximal duodenum would be an extremely atypical spot for an SBO or partial SBO and the remainder of her bowel looked unremarkable can discontinue her NG tube. There was initially some concern for acute cholecystitis however her follow-up ultrasound was not consistent with this. She has a slight elevation in alk phos but normal transaminases otherwise if there is significantconcern for this a HIDA scan can be ordered and if positive she would need a general surgery consult. I would recommend medical management for the time being with high-dose PPI therapy and avoidance of NSAIDs -PPI 40 mg bid -Avoid NSAIDs -CLD for next 24 hours, then ADAT -serial H/H -consider HIDA scan if ongoing abd pain, if positive recommend surgery consult Thank you for this consult, I will continue to follow. Documented By: Skyler Ro MD 03/12/22 1534 Signed By: <Electronically signed by Skyler Ro MD> 03/12/22 1541 [facility] Work Phone: [phone]) 212-530912-05-2022 Progress note Author Rachel Persaud [facility] March 11, 2022 11:14pm Note Date/Time March 11, 2022 1 1:14pm [facility] [address] [place] [address] Event Note Signed Patient: Guera Sanchez MR#: [id number] : 1955 Acct:[id number] Age/Sex: 66 / F Adm Date: 2 Loc: 4N Room: 1Y7827-7 Type: ADM IN Attending Dr: Deangelo Kulkarni MD Copies to: MD Rachel De Souza MD Obaydah M Daromar, MD~ Status Event Note Event Note DATE OF EVENT: 03/11/22 TIME OF EVENT: 23:09 EVENT DETAILS: Informed by the nurse that patient complaining of nausea and vomited earlier. During evaluation patient complained of abdominal discomfort with no right upperquadrant tenderness. Due to significant vomiting CT abdomen/pelvis and labs were obtained. Hemoglobin has dropped to 7.7 from 8.3 earlier today. No active bleeding noted. Sodium [address] abdomen/pelvis showing distended duodenum and stomach without transition point with inflammatory changes adjacent to duodenum which could be due to duodenitis. Cholelithiasis and findings suspicion of acute cholecystitis. On reevaluation after coming back from CT scan she appears more comfortable and currently denies having abdominal pain. On examination abdomen is soft and nontender with no signs of acute abdomen. Bowel sounds are diminished. Will place NG tube with intermittent suctioning. Start on IV Protonix and consult GI service. Given drop of H&H will hold Lovenox and place on SCDs for DVT prophylaxis. Replace potassium. Stool for occult blood and gallbladder ultrasound in the morning. CRITICAL CARE TIME: less than 30 mins Documented By: Rachel Persaud MD 03/11/222 Signed By: <Electronically signed by Rachel Persaud MD> 03/11/22 4060 [facility] Work Phone: [phone]) 807-119012-04-2022 Progress note Author Deangelo Kulkarni [facility] March 11, 2022 3:09pm Note Date/Time March 11, 2022 9 :31am [facility] [address] [place] [address] Hospitalist Progress Note Signed Patient: Guera Sanchez MR#: [id number] : 1955 Acct:[id number] Age/Sex: 66 / F Adm Date: 2 Loc: 4N Room: 5F1995-5 Type: ADM IN Attending Dr: Deangelo Kulkarni MD Copies to: ~ Date of Service: 03/11/2022 Subjective Subjective Narrative: Patient seen and examined at bedside. No acute events overnight. Sleepy, easilyarousable alert and oriented x3 and conversing appropriately, reporting moderatepain to the left arm. Afebrile Exam Physical Exam Vital Signs: Temp Pulse Resp BP Pulse Ox O2 Del Method O2 Flow Rate 98.1 F 104 H 22 171/83 H 99 Room Air 2 03/11/22 08:00 03/11/22 08:00 03/11/22 08:00 03/11/22 08:00 03/11/22 08:00 03/11/22 08:00 03/09/22 11:00 Narrative: CONST-sleepy but easily arousable CARDIAC-normal rate, regular rhythm, normal S1 & S2. PULM-diminished without wheeze or rhonchi, RA, no accessory muscle use or cough noted MS- MAEX4 spontaneously with equal with equal strength NEURO- A&Ox2 speech clear and tongue midline, equal facial symmetry no focal motor deficits PSYCH-Mood, affect and behavior appropriate Objective Lab Results CBC & Chem 7: 03/11/22 05:40 03/11/22 05:40 Microbiology Results Microbiology 03/08/22 14:33 Blood - Right Hand Blood Culture - Preliminary Gram Positive Bacilli 03/08/22 15:01 Blood - Right Wrist Blood Culture - Preliminary No Growth 2 Days Meds Allergies and Active Meds Allergies No Known Allergies Allergy (Verified 02/20/22 14:07) Active Meds: Active Medications Generic Name Dose Route Start Last Admin Trade Name Freq PRN Reason Stop Dose Admin Amlodipine Besylate 5 mg 03/11/22 09:05 Amlodipine 5 Mg Tablet PO 03/11/23 09:04 DAILY RYAN Atorvastatin Calcium 10 mg 03/10/22 09:00 03/11/22 08:23 Atorvastatin 10 Mg Tablet PO 03/10/23 08:59 10 mg QAM RYAN Administration Citalopram Hydrobromide 80 mg 03/10/22 09:00 03/11/22 08:23 Citalopram 40 Mg Tablet PO 03/10/23 08:59 80 mg QAM RYAN Administration Dextrose 0 gm 03/08/22 18:44 Dextrose 20 % In Water 10 Gm/50 Ml Syringe IV-PUSH 03/08/23 18:43 PRN PRN Hypoglycemia Glucose 0 gm 03/08/22 18:44 Dextrose 40% Gel 15 Gm Tube PO 03/08/23 18:43 PRN PRN Hypoglycemia Hydralazine HCl 10 mg 03/08/22 18:31 03/10/22 22:05 Hydralazine 20 Mg/Ml Vial IV-PUSH 03/08/23 18:30 10 mg Q4H PRN Administration if SBP > 185 Folic Acid 1 mg/ Dextrose 50.2 mls @ 100.4 mls/hr 03/08/22 19:15 03/10/22 08:38 IV 03/08/23 19:14 100.4 mls/hr DAILY RYAN Administration Thiamine HCl 100 mg/ Sodium 51 mls @ 102 mls/hr 03/08/22 19:30 03/10/22 09:10 Chloride IV 03/08/23 19:29 102 mls/hr DAILY RYAN Administration Sodium Chloride 1,000 mls @ 75 mls/hr 03/11/22 09:15 0.9% Sodium Chloride 1,000 Ml IV 03/11/23 09:14 .[id number] RYAN Insulin Aspart 0 units 03/08/22 22:00 03/11/22 08:24 Insulin Aspart 300 Units/3 Ml Insuln.Pen SUBCUT 03/08/23 21:59 1 units TID.WM.HS RYAN Administration Protocol Insulin Glargine 5 units 03/11/22 08:00 03/11/22 08:24 Insulin Glargine 300 Units/3 Ml Insuln.Pen SUBCUT 03/11/23 07:59 5 units DAILY.WITH.BKFAST RYAN Administration Irbesartan 300 mg 03/10/22 11:15 03/11/22 08:23 Irbesartan 300 Mg Tablet PO 03/10/23 11:14 300 mg DAILY RYAN Administration Liothyronine Sodium 10 mcg 03/10/22 11:15 03/11/22 08:23 Liothyronine 5 Mcg Tablet PO 03/10/23 11:14 10 mcg DAILY RYAN Administration Lorazepam 1 mg 03/08/22 18:24 03/09/22 19:38 Lorazepam 2 Mg/Ml Vial IV-PUSH 09/04/22 18:23 1 mg Q4H PRN Administration Agitation Miscellaneous Medication 50 ml 03/10/22 00:59 03/10/22 12:52 Greenfrog Suspension 50 Ml Bottle PO 03/10/23 00:58 50 ml Q6H PRN Administration Cramping Morphine Sulfate 2 mg 03/09/22 18:42 03/11/22 05:58 Morphine Sulfate 2 Mg/Ml Vial IV-PUSH 2 mg Q4H PRN Administration pain Nicotine 1 each 03/08/22 19:30 03/11/22 08:23 Nicotine Patch 21 Mg/24hr 1 Each Patch.Td24 TRANSDERML 04/18/22 09:01 Not Given DAILY RYAN Ondansetron HCl 4 mg 03/09/22 23:43 03/09/22 23:47 Ondansetron 4 Mg/2 Ml Vial IV 03/09/23 23:42 4 mg Q6H PRN Administration NAUSEA/VOMITING Quetiapine Fumarate 100 mg 03/10/22 22:00 03/10/22 22:04 Quetiapine Fumarate 100 Mg Tablet PO 03/10/23 21:59 100 mg QHS RYAN Administration Sodium Chloride 0 ml 03/08/22 13:12 03/10/22 18:33 Sodium Chloride 0.9 % 10 Ml Syringe IV-PUSH 03/08/23 13:11 10 ml PRN PRN Administration Flush Sodium Chloride 10 ml 03/08/22 14:18 03/09/22 19:38 Sodium Chloride 0.9 % 10 Ml Vial.Pf INJECTION 03/08/23 14:17 10 ml Q4H PRN Administration Ativan dilution Sodium Chloride 10 ml 03/08/22 18:24 Sodium Chloride 0.9 % 10 Ml Vial.Pf INJECTION 03/08/23 18:23 Q4H PRN Ativan dilution Sodium Chloride 1 gm 03/10/22 14:00 03/11/22 08:23 Sodium Chloride 1 Gm Tablet PO 03/10/23 13:59 1 gm TID RYAN Administration A&P - Hospitalist Assessment/Plan (1) Altered mental status: (2) Hypokalemia: (3) Hyponatremia: (4) Hypomagnesemia: (5) Metabolic encephalopathy: Plan *Metabolic encephalopathy?etiology unclear, significantly improved *Rule out infectious process Most significantly awake and alert but is still slightly confused ?CT brain in the ED was nonacute ?MRI with chronic vessel ischemic changes and findings of possible mild posterior reversible encephalopathy ?CRX in ED did not show any acute cardiopulmonary process ?Drug screen positive for marijuana ?Lactic acid, ethanol level wnl, ammonia levels<9 ?Blood cultures 1/2 showing no growth in 2 days.1/2 with gram-positive bacilli possible contaminants second blood cultures pending, antibiotics discontinued -Follow-up repeat blood cultures *Normocytic anemia?likely dilutional effect, no signs and symptoms of bleeding ?Hemoglobin improved, 8.3 today ?Stool for guaiac pending ?Iron panel pending ?Monitor CBC and transfuse to keep hemoglobin above 7 *Hyponatremia?possibly due to GI losses ? Sodium 127 this morning, 129 yesterday ? TSH and cortisol level within normal limits ?Initiate IV fluids ?Monitor BMP *T[place] po[place] due to electrolyte abnormalities?on admission ?EKG in ED with prolonged QTC of 572, will repeat EKG 491 *Hypokalemia?repleted ? Potassium 3.2 this morning ? Continue to monitor *Hypertension?improved ? Home medications restarted Resolved issues *Sinus tachycardia *Hypomagnesemia *Leukocytosis Chronic conditions: 1. Diabetes type?sliding scale insulin. Accu-Cheks every 6 hours while NPO. Hypoglycemia 2. Hypertension 3. Left shoulder fracture 4. Anxiety/depression 5. Cannabis use CODE STATUS: Full code DVT prophylaxis: SCD Attending Physician Attestation: I personally reviewed the history, performed the freedman elements of the exam, formulated the plan of care and confirmed the written note. I agree with the findings and plan as documented in this note and have edited it if needed to reflect my findings and plan. Blood culture grew gram-positive bacilli in 1 set, the other set of culture was negative, this could be contamination patient remained afebrile with no leukocytosis, clinically improving. MRI showed possible posterior reversible encephalopathy syndrome (PRES). Neurology input appreciated. Will need neurologyoutpatient follow up. Deangelo Quiroz MD Documented By: Denice Buckner APRN 03/11/22 2995 Signed By: <Electronically signed by HEMANTH Buckner> 03/11/22 8286 <Electronically signed by Deangelo Kulkarni MD> 03/11/22 2954 [facility] Work Phone: 1(186) 116-158412-04-2022 Progress note Author Javan Boothe [facility] March 11, 2022 11:14am Note Date/Time March 11, 2022 1 1:14am [facility] [address] [place] [address] Neurology Progress Note Signed Patient: Guera Sanchez MR#: [id number] : 1955 Acct:[id number] Age/Sex: 66 / F Adm Date: 2 Loc: Room: [address] [place] [address] Type: ADM IN Attending Dr: Deangelo Kulkarni MD Copies to: ~ Date of Service: 03/11/2022 Exam Physical Exam Vital Signs: Temp Pulse Resp BP Pulse Ox O2 Del Method O2 Flow Rate 98.1 F 104 H 22 171/83 H 99 Room Air 2 03/11/22 08:00 03/11/22 08:00 03/11/22 08:00 03/11/22 08:00 03/11/22 08:00 03/11/22 08:00 03/09/22 11:00 Objective Vital Signs Vital Signs: Vital Signs - 24 hr 03/10/22 12:00 03/10/22 16:00 03/10/22 20:00 Temperature 97.8 F 97.6 F 98.3 F Pulse Rate 82 106 H 99 H Respiratory Rate 21 18 18 Blood Pressure 176/84 H 169/75 H 199/82 H 02 Sat by Pulse Oximetry 98 97 98 Oxygen Delivery Method Room Air Room Air Room Air 03/10/22 21:04 03/10/22 20:00 03/11/22 00:00 Temperature 97.8 F Pulse Rate 98 H Respiratory Rate 16 Blood Pressure 202/79 H 171/74 H 02 Sat by Pulse Oximetry 99 Oxygen Delivery Method Room Air 03/11/22 03:20 03/11/22 08:00 Temperature 98.0 F 98.1 F Pulse Rate 97 H 104 H Respiratory Rate 18 22 Blood Pressure 170/81 H 171/83 H 02 Sat by Pulse Oximetry 97 99 Oxygen Delivery Method Room Air Room Air Labs CBC & Chem 7: 03/11/22 05:40 03/11/22 05:40 Therapy Recommendations Therapy Recommendations: OT Recommendations OT Recommended Discharge Home with Home Health,Inpatient Rehab Unit Location OT Recommended Services at Physical Therapy,Occupational Therapy Discharge Assessment/Plan (1) Altered mental status: Assessment/Problem Details: SUBJECTIVE: No overnight events. Intermittent left upper extremity pain. Still without headache or hallucinations or vision changes. Nothing has happened that would be concerning for seizure. No new symptoms to add to review of systems. EXAMINATION: Well-kempt. No distress. No deformities or trauma. No nuchal rigidity. Limbsseem well-perfused. No significant edema. Normal work of breathing. Visualized skin is generally intact and without lesions. She is alert. Today she is oriented to [facility], March. Attentionnow seems normal. Speech is fluent and nondysarthric. Pupils are equal and reactive Ocular motility is full. No nystagmus. Facial sensation is normal. Hearing is normal. Facial strength is normal. Tongue is midline. Muscle bulk,tone, and strength are normal aside from the left upper extremity which was not tested due to the arm being in a sling and the recent surgery. No tremors. No pathologic reflexes. Light touch is normal. No witnessed ataxic movements. DATA REVIEW: T-max 100.8 evening of March 08, 2022 Sodium 123 February 20, then 130 March 06, then 122 March 08, now 126 CT head unremarkable ASSESSMENT: 66-year-old woman found at home confused. Initially febrile. Initially hyponatremic to 122. MRI images personally reviewed and I suspect she has a mild case of posterior reversible encephalopathy syndrome (PRES). There are hazy white matter changes at bilateral occipital poles and concentrated posteriorly around the lateral ventricles. Most likely trigger for this would have been hypertension; her peakblood pressure here was 192/86. Her encephalopathy could otherwise be metabolic related to her hyponatremia or infection-related given she presented with fever but there would be no clear infectious source here. No clinical signs/symptoms and no MRI findings concerning for encephalitis or meningitis. PLAN: She continues to improve and might be at her baseline. No other recommendationsat this time. She will need outpatient neurology follow-up. She will likely need an MRI in 1.5 to 3 months to ensure the PRES changes have resolved. Code(s): R41.82 - Altered mental status, unspecified Status: Acute Documented By: Javan Boothe DO 03/11/22 1111 Signed By: <Electronically signed by Javan Boothe DO> 03/11/22 1019 [facility] Work Phone: [phone]) [phone] Progress note Author Deangelo Kulkarni [facility] March 10, 2022 1:28pm Note Date/Time March 10, 2022 1 0:49am [facility] [address] [place] [address] Hospitalist Progress Note Signed Patient: Guera Sanchez MR#: [id number] : 1955 Acct:[id number] Age/Sex: 66 / F Adm Date: 2 Loc: 4N Room: [address] [place] [address] Type: ADM IN Attending Dr: Deangelo Kulkarni MD Copies to: ~ Date of Service: 03/10/2022 Subjective Subjective Narrative: Patient seen and examined at bedside, awake and alert, oriented to time and place and able to recall her birthday and the circumstances of what brought her to the hospital. She has no fever, chills,, no chest pain, no shortness of breath. Exam Physical Exam Vital Signs: Temp Pulse Resp BP Pulse Ox O2 Del Method O2 Flow Rate 97.7 F 80 18 164/78 H 98 Room Air 2 03/10/22 04:00 03/10/22 06:00 03/10/22 06:00 03/10/22 06:00 03/10/22 06:00 03/10/22 06:00 03/09/22 11:00 Narrative: CONST-sleepy but easily arousable CARDIAC-normal rate, regular rhythm, normal S1 & S2. PULM-diminished without wheeze or rhonchi, RA, no accessory muscle use or cough noted MS- MAEX4 spontaneously with equal with equal strength NEURO- A&Ox2 speech clear and tongue midline, equal facial symmetry no focal motor deficits PSYCH-Mood, affect and behavior appropriate Objective Lab Results CBC & Chem 7: 03/10/22 04:38 03/10/22 04:38 Microbiology Results Microbiology 03/08/22 15:01 Blood - Right Wrist Blood Culture - Preliminary No Growth 1 Day 03/08/22 14:33 Blood - Right Hand Blood Culture - Preliminary No Growth 1 Day Meds Allergies and Active Meds Allergies No Known Allergies Allergy (Verified 02/20/22 14:07) Active Meds: Active Medications Generic Name Dose Route Start Last Admin Trade Name Freq PRN Reason Stop Dose Admin Dextrose 0 gm 03/08/22 18:44 Dextrose 20 % In Water 10 Gm/50 Ml Syringe IV-PUSH 03/08/23 18:43 PRN PRN Hypoglycemia Glucose 0 gm 03/08/22 18:44 Dextrose 40% Gel 15 Gm Tube PO 03/08/23 18:43 PRN PRN Hypoglycemia Hydralazine HCl 10 mg 03/08/22 18:31 03/10/22 05:06 Hydralazine 20 Mg/Ml Vial IV-PUSH 03/08/23 18:30 10 mg Q4H PRN Administration if SBP > 185 Sodium Chloride 1,000 mls @ 75 mls/hr 03/08/22 18:00 03/10/22 04:08 0.9% Sodium Chloride 1,000 Ml IV 03/08/23 17:59 75 mls/hr .[id number] RYAN Administration Folic Acid 1 mg/ Dextrose 50.2 mls @ 100.4 mls/hr 03/08/22 19:15 03/10/22 08:38 IV 03/08/23 19:14 100.4 mls/hr DAILY RYAN Administration Thiamine HCl 100 mg/ Sodium 51 mls @ 102 mls/hr 03/08/22 19:30 03/10/22 09:10 Chloride IV 03/08/23 19:29 102 mls/hr DAILY RYAN Administration Dexmedetomidine HCl 400 mcg/ 100 mls @ 4.815 mls/hr 03/08/22 19:30 03/10/22 04:18 Dextrose IV 03/08/23 19:29 0.5 mcg/kg/hr .[id number] RYAN 12.04 mls/hr Titration Protocol 0.2 MCG/KG/HR Insulin Aspart 0 units 03/08/22 22:00 03/10/22 08:37 Insulin Aspart 300 Units/3 Ml Insuln.Pen SUBCUT 03/08/23 21:59 1 units TID.WM.HS RYAN Administration Protocol Insulin Glargine 5 units 03/11/22 08:00 Insulin Glargine 300 Units/3 Ml Insuln.Pen SUBCUT 03/11/23 07:59 DAILY.WITH.BKFAST RYAN Lorazepam 1 mg 03/08/22 18:24 03/09/22 19:38 Lorazepam 2 Mg/Ml Vial IV-PUSH 09/04/22 18:23 1 mg Q4H PRN Administration Agitation Miscellaneous Medication 50 ml 03/10/22 00:59 03/10/22 01:16 Greenfrog Suspension 50 Ml Bottle PO 03/10/23 00:58 50 ml Q6H PRN Administration Cramping Morphine Sulfate 2 mg 03/09/22 18:42 03/10/22 02:14 Morphine Sulfate 2 Mg/Ml Vial IV-PUSH 2 mg Q4H PRN Administration pain Nicotine 1 each 03/08/22 19:30 03/10/22 08:42 Nicotine Patch 21 Mg/24hr 1 Each Patch.Td24 TRANSDERML 04/18/22 09:01 Not Given DAILY RYAN Ondansetron HCl 4 mg 03/09/22 23:43 03/09/22 23:47 Ondansetron 4 Mg/2 Ml Vial IV 03/09/23 23:42 4 mg Q6H PRN Administration NAUSEA/VOMITING Sodium Chloride 0 ml 03/08/22 13:12 Sodium Chloride 0.9 % 10 Ml Syringe IV-PUSH 03/08/23 13:11 PRN PRN Flush Sodium Chloride 10 ml 03/08/22 14:18 03/09/22 19:38 Sodium Chloride 0.9 % 10 Ml Vial.Pf INJECTION 03/08/23 14:17 10 ml Q4H PRN Administration Ativan dilution Sodium Chloride 10 ml 03/08/22 18:24 Sodium Chloride 0.9 % 10 Ml Vial.Pf INJECTION 03/08/23 18:23 Q4H PRN Ativan dilution A&P - Hospitalist Assessment/Plan (1) Altered mental status: (2) Hypokalemia: (3) Hyponatremia: (4) Hypomagnesemia: (5) Metabolic encephalopathy: Plan *Metabolic encephalopathy?etiology unclear, significantly improved *Infectious process ruled out Most significantly awake and alert but is still slightly confused ?Precedex drip discontinued ?CT brain in the ED was nonacute ?CRX in ED did not show any acute cardiopulmonary process ?ABGs showed pH 7.48. PCO2 29.2, PO2 30.3 bicarb 21.5 ?Drug screen positive for marijuana ?Lactic acid, ethanol level wnl, ammonia levels<9 ?Blood cultures with no growth in 1 day, antibiotics discontinued *Normocytic anemia?likely dilutional effect, no signs and symptoms of bleeding ?Hemoglobin improved, 8.2 today ?Stool for guaiac pending ?Iron panel pending ?Monitor CBC and transfuse to keep hemoglobin above 7 *Hyponatremia, improving ? Sodium 129 this morning ? TSH and cortisol level within normal limits ?Monitor BMP *Tors[place] de po[place]?on admission ?EKG in ED with prolonged QTC of 572, will repeat EKG today *Hypokalemia?repleted ? Potassium 3.2 this morning ? Continue to monitor *Hypertension?improved ? Home medications restarted Resolved issues *Sinus tachycardia *Hypomagnesemia *Leukocytosis Chronic conditions: 1. Diabetes type?sliding scale insulin. Accu-Cheks every 6 hours while NPO. Hypoglycemia 2. Hypertension 3. Left shoulder fracture 4. Anxiety/depression 5. Cannabis use CODE STATUS: Full code DVT prophylaxis: SCD Attending Physician Attestation: I personally reviewed the history, performed the freedman elements of the exam, formulated the plan of care and confirmed the written note. I agree with the findings and plan as documented in this note and have edited it if needed to reflect my findings and plan. Mental status improving. Patient is alert and awake and oriented to self, place but not time. Does not recall what happened or how she ended up here. I still have high suspicion for drug related encephalopathy. She denies drinking alcoholbut does admit smoking week ( said last smoked long time ago?!) I told her it was detected in urine. She is still definitely confused. Will continue to monitor mental status and optimize electrolytes. Deangelo Quiroz MD Documented By: Denice Buckner APRN 03/10/22 1047 Signed By: <Electronically signed by HEMANTH Buckner> 03/10/22 1104 <Electronically signed by Deangelo Kulkarni MD> 03/10/22 1328 [facility] Work Phone: [phone]) 213-685312-03-2022 Progress note Author Javan Boothe [facility] March 10, 2022 10:44am Note Date/Time March 10, 2022 1 0:44am [facility] [address] [place], [place] [id number] Neurology Progress Note Signed Patient: Guera Sanchez MR#: [id number] : 1955 Acct:[id number] Age/Sex: 66 / F Adm Date: 2 Loc: Room: [address] [place] [address] Type: ADM IN Attending Dr: Deangelo Kulkarni MD Copies to: ~ Date of Service: 03/10/2022 Exam Physical Exam Vital Signs: Temp Pulse Resp BP Pulse Ox O2 Del Method O2 Flow Rate 97.7 F 80 18 164/78 H 98 Room Air 2 03/10/22 04:00 03/10/22 06:00 03/10/22 06:00 03/10/22 06:00 03/10/22 06:00 03/10/22 06:00 03/09/22 11:00 Objective Vital Signs Vital Signs: Vital Signs - 24 hr 03/09/22 11:00 03/09/22 12:00 03/09/22 12:49 Temperature 97.9 F Pulse Rate 64 62 68 Respiratory Rate 16 18 Blood Pressure 128/62 133/64 127/64 02 Sat by Pulse Oximetry 99 99 Oxygen Delivery Method Nasal Cannula Room Air Oxygen Flow Rate 2 03/09/22 13:12 03/09/22 13:00 03/09/22 14:00 Temperature Pulse Rate 68 64 86 Respiratory Rate 13 14 Blood Pressure 127/64 127/64 151/70 H 02 Sat by Pulse Oximetry 99 99 Oxygen Delivery Method Room Air Room Air Oxygen Flow Rate 03/09/22 15:00 03/09/22 16:00 03/09/22 17:00 Temperature 97.6 F Pulse Rate 90 88 82 Respiratory Rate 23 15 17 Blood Pressure 163/71 H 162/69 H 164/75 H 02 Sat by Pulse Oximetry 98 100 100 Oxygen Delivery Method Room Air Room Air Room Air Oxygen Flow Rate 03/09/22 18:00 03/09/22 19:34 03/09/22 20:49 Temperature Pulse Rate 90 88 86 Respiratory Rate 20 Blood Pressure 147/65 H 153/68 H 166/77 H 02 Sat by Pulse Oximetry 100 Oxygen Delivery Method Room Air Oxygen Flow Rate 03/09/22 20:50 03/09/22 19:00 03/09/22 20:00 Temperature 98.2 F Pulse Rate 89 84 80 Respiratory Rate 21 20 Blood Pressure 166/77 H 151/67 H 153/98 H 02 Sat by Pulse Oximetry 97 98 Oxygen Delivery Method Room Air Room Air Oxygen Flow Rate 03/09/22 21:00 03/09/22 20:00 03/09/22 22:00 Temperature Pulse Rate 82 88 Respiratory Rate 20 19 Blood Pressure 103/82 176/79 H 02 Sat by Pulse Oximetry 98 98 Oxygen Delivery Method Room Air Room Air Room Air Oxygen Flow Rate 03/09/22 23:00 03/10/22 00:00 03/10/22 00:00 Temperature 98.1 F Pulse Rate 84 88 Respiratory Rate 21 21 Blood Pressure 155/67 H 173/81 H 02 Sat by Pulse Oximetry 97 99 Oxygen Delivery Method Room Air Room Air Room Air Oxygen Flow Rate 03/10/22 01:00 03/10/22 01:45 03/10/22 01:46 Temperature Pulse Rate 88 88 85 Respiratory Rate 24 Blood Pressure 175/79 H 176/79 H 176/85 H 02 Sat by Pulse Oximetry 98 Oxygen Delivery Method Room Air Oxygen Flow Rate 03/10/22 02:15 03/10/22 02:00 03/10/22 03:00 Temperature Pulse Rate 85 85 96 H Respiratory Rate 21 24 Blood Pressure 176/85 H 178/74 H 163/83 H 02 Sat by Pulse Oximetry 99 98 Oxygen Delivery Method Room Air Room Air Oxygen Flow Rate 03/10/22 04:18 03/10/22 04:00 03/10/22 05:00 Temperature 97.7 F Pulse Rate 81 83 77 Respiratory Rate 18 15 Blood Pressure 171/84 H 170/84 H 185/82 H 02 Sat by Pulse Oximetry 99 98 Oxygen Delivery Method Room Air Room Air Oxygen Flow Rate 03/10/22 04:00 03/10/22 06:00 Temperature Pulse Rate 80 Respiratory Rate 18 Blood Pressure 164/78 H 02 Sat by Pulse Oximetry 98 Oxygen Delivery Method Room Air Room Air Oxygen Flow Rate Labs CBC & Chem 7: 03/10/22 04:38 03/10/22 04:38 Assessment/Plan (1) Altered mental status: Assessment/Problem Details: SUBJECTIVE: No overnight events. She is very emotional this morning about her family members. She thinks [facility] [place] Her left upper extremity is still not bothering her at all. She again states that she has not had headache. She has not had any visual symptoms. Denies hallucinations, diplopia, loss of vision. No new symptoms to add to review of systems. EXAMINATION: Well-kempt. No distress. No deformities or trauma. No nuchal rigidity. Limbsseem well-perfused. No significant edema. Normal work of breathing. Visualized skin is generally intact and without lesions. Very emotionally labile. She is alert. Oriented to [facility], 2021, butdid not know the month. Attention seemed impaired. Somewhat tangential or circumferential. Speech is fluent and nondysarthric. Pupils are equal and reactive Ocular motility is full. No nystagmus. Facial sensation is normal. Hearing is normal. Facial strength is normal. Tongue is midline. Muscle bulk,tone, and strength are normal aside from the left upper extremity which was not tested due to the arm being in a sling and the recent surgery. No tremors. No pathologic reflexes. Light touch is normal. No witnessed ataxic movements. DATA REVIEW: T-max 100.8 evening of March 08, 2022 Sodium 123 February 20, then 130 March 06, then [address] head unremarkable ASSESSMENT: 66-year-old woman found at home confused. Initially febrile. Initially hyponatremic to 122. MRI images personally reviewed and I suspect she has a mild case of posterior reversible encephalopathy syndrome (PRES). There are hazy white matter changes atbilateral occipital poles and concentrated posteriorly around the lateral ventricles. Most likely trigger for this would have been hypertension; her peakblood pressure here was 192/86. Her encephalopathy could otherwise be metabolic related to her hyponatremia or infection-related given she presented with fever but there would be no clear infectious source here. No clinical signs/symptoms and no MRI findings concerning for encephalitis or meningitis. PLAN: I suspect she will continue to gradually improve. Given her encephalopathy but lack of seizures or visual symptoms or headaches, her case of PRES is mild. I do not think prophylactic antiepileptic medication is currently indicated or warranted. It is largely supportive care. No other recommendations at this time. At some point in the future, perhaps 6 weeks to 3 months from now, she should have a repeat MRI to ensure that those white matter changes were temporary and have resolved. Code(s): R41.82 - Altered mental status, unspecified Status: Acute Documented By: Javan Boothe DO 03/10/22 1038 Signed By: <Electronically signed by Javan Boothe DO> 03/10/22 1042 [facility] Work Phone: 1(396) 623-696512-02-2022 Consult note Author Javan Boothe [facility] March 09, 2022 3:31pm Note Date/Time March 09, 2022 1 :53pm [facility] [address] [place] [address] Neurology Consult Note Signed Patient: Guera Sanchez MR#: [id number] : 1955 Acct:[id number] Age/Sex: 66 / F Adm Date: 2 Loc: Room: [address] [place] [address] Type: ADM IN Attending Dr: Deangelo Kulkarni MD Copies to: DO Ash Mathew MD Obaydah M Daromar, MD~ HPI Consult Date: 03/09/22 Business Support Liaison: Javan Boothe DO [facility] Vacc[facility] for [facility]-19?: Unknown Medical History Anxiety Depression Diabetes mellitus, type 2 Hypercholesteremia Hypertension Irritable bowel disease Thyroid disease Wears hearing aid in both ears Surgical History History of cataract surgery OU History of kyphoplasty History of lumbar discectomy Family History Father Depression Anxiety IBS (irritable bowel syndrome) Mother Depression Anxiety Lung cancer Social History Smoking Status: Current every day smoker Tobacco Type: cigarettes Substance Use Type: Unknown Substance Abuse Comment: Medical marijuana several times a day. Social History Comments: grandson lives with patient Meds Medications and Allergies Allergies No Known Allergies Allergy (Verified 02/20/22 14:07) Home Medications atorvastatin 10 mg tablet 10 mg PO QAM cholesterol 02/20/22 [History Confirmed 03/08/22] citalopram 40 mg tablet 80 mg PO QAM 02/20/22 [History Confirmed 03/08/22] cyclobenzaprine 10 mg tablet 10 mg PO TID PRN Muscle Spasm 02/20/22 [History Confirmed 03/08/22] gabapentin 600 mg tablet 1,200 mg PO BID pain 02/20/22 [History Confirmed 03/08/22] hydrochlorothiazide 12.5 mg tablet 12.5 mg PO DAILY 02/20/22 [History Confirmed 03/08/22] irbesartan 300 mg tablet 300 mg PO DAILY HTN 02/20/22 [History Confirmed 03/08/22] liothyronine 5 mcg tablet 10 mcg PO DAILY thyroid disorder 02/20/22 [History Confirmed 03/08/22] pioglitazone 45 mg tablet (Actos) 45 mg PO DAILY 02/20/22 [History Confirmed 03/08/22] quetiapine 100 mg tablet 100 mg PO QHS 02/20/22 [History Confirmed 03/08/22] sodium chloride 1 gram tablet 1,000 mg PO TID 03/06/22 [History Confirmed 03/08/22] cephalexin 500 mg capsule 500 mg PO Q8H #6 caps 03/07/22 [Rx Confirmed 03/08/22] ondansetron 4 mg disintegrating tablet 4 mg PO Q6H #10 tabs 03/07/22 [Rx Confirmed 03/08/22] oxycodone-acetaminophen 5 mg-325 mg tablet (Percocet) 1 tab PO Q4H PRN Pain 5 days #20 tabs 03/07/22 [Rx Confirmed 03/08/22] cetirizine 10 mg tablet (Zyrtec) 10 mg PO DAILY 03/08/22 [History Confirmed 03/08/22] ibuprofen 800 mg tablet 800 mg PO Q6H PRN Pain 03/08/22 [History Confirmed 03/08/22] metformin 850 mg tablet 850 mg PO TID 03/08/22 [History Confirmed 03/08/22] potassium chloride 20 mEq tablet,extended release(part/cryst) (Klor-Con M) 20 meq PO QID 03/08/22 [History Confirmed 03/08/22] Exam Physical Exam Vital Signs: Temp Pulse Resp BP Pulse Ox O2 Del Method O2 Flow Rate 97.6 F 68 18 127/64 99 Nasal Cannula 2 03/09/22 08:00 03/09/22 13:12 03/09/22 12:00 03/09/22 13:12 03/09/22 12:00 03/09/22 12:00 03/09/22 12:00 Results Laboratory Findings CBC and BMP: 03/09/22 10:07 03/09/22 04:54 Lab Results: Ammonia < 9 umol/L (11-35) L 03/08/22 15:04 Diagnostic Findings Imaging/Impressions: ITS Impressions Head CT 03/08/22 13:44 IMPRESSION: AGE-RELATED CHANGES. NO ACUTE INTRACRANIAL ABNORMALITY. Impression dictated by: Katie Butler M.D.03/08/2022 4:28 PM Dictation Location: [place] [address] Chest X-Ray 03/08/22 14:37 IMPRESSION: CHF FINDINGS. NO FOCAL CONSOLIDATION IS SEEN TO SUGGEST PNEUMONIA. Impression dictated by: Ryan Chacon Jr., D.O.03/08/2022 4:11 PM Dictation Location: [place] [address] Assessment/Plan (1) Altered mental status: Assessment/Problem Details: CONSULT REASON: Confusion SUBJECTIVE/HPI: 66-year-old woman. History that includes type 2 diabetes, hypertension, anxietydisorder, and a left shoulder fracture with surgery just a few days prior to admission. She was reportedly found at home very confused by a friend. Fever with maximum temperature 100.8. Tachycardic 128. Prolonged QT 572. Head CT unremarkable. Sodium 122. Her chief complaint is being thirsty. She forgot she had even had surgery. She has no complaints of pain. She is wide-awake andconversant. For unclear reasons she keeps staring the conversation towards one of her daughters who she says is incarcerated. No other complaints and no symptoms to add to review of systems. EXAMINATION: Well-kempt. No distress. No deformities or trauma. No nuchal rigidity. Limbsseem well-perfused. No significant edema. Normal work of breathing. Visualized skin is generally intact and without lesions. Affect normal. She isalert. Oriented to [facility], 2021, but did not know the month. Attention seemed impaired. Somewhat tangential or circumferential. Speech is fluent and nondysarthric. Pupils are equal and reactive Ocular motility is full. No nystagmus. Facial sensation is normal. Hearing is normal. Facial strength is normal. Tongue is midline. Muscle bulk, tone, and strength are normal aside from the left upper extremity which was not tested dueto the arm being in a sling and the recent surgery. No tremors. No pathologic reflexes. Light touch is normal. No witnessed ataxic movements. DATA REVIEW: T-max 100.8 evening of March 08, 2022 Sodium 123 February 20, then 130 March 06, then [address] head unremarkable ASSESSMENT: Improving confusion. Encephalopathy could be metabolic related to her hyponatremia or perhaps septic or infection related given the fever, but there is no clear source. We will MR image the brain. She has no nuchal rigidity andis very alert. My suspicion for any underlying meningitis or encephalitis is very low. Do not suspect cerebrovascular syndrome. Do not suspect seizure as playing a role. PLAN: MRI brain with and without contrast. Further recommendations to follow. Code(s): R41.82 - Altered mental status, unspecified Status: Acute Documented By: Javan Boothe DO 03/09/22 1347 Signed By: <Electronically signed by Javan Boothe DO> 03/09/22 1531 [facility] Work Phone: 1(146) 468-156212-02-2022 Progress note Author Deangelo Kulkarni [facility] March 09, 2022 2:11pm Note Date/Time March 09, 2022 1 1:53am [facility] [address] [place] [address] Hospitalist Progress Note Signed Patient: Guera Sanchez MR#: [id number] : 1955 Acct:[id number] Age/Sex: 66 / F Adm Date: 2 Loc: Room: [address] [place] [address] Type: ADM IN Attending Dr: Deangelo Kulkarni MD Copies to: ~ Date of Service: 03/09/2022 Subjective Subjective Narrative: Patient seen and examined at bedside. Slightly combative earlier on so Precedexdrip increased. Currently patient is sleepy but easily arousable, cooperative and responding to questions appropriately. She does not have any recollection of why she is in the hospital or what happened prior to coming to the hospital. She denies any chest pain, shortness of breath, afebrile. Denies headaches, dizziness, sensitivity to light. Exam Physical Exam Vital Signs: Temp Pulse Resp BP Pulse Ox O2 Del Method O2 Flow Rate 97.2 F L 66 12 134/63 100 Room Air 2 03/09/22 04:00 03/09/22 07:37 03/09/22 07:00 03/09/22 07:37 03/09/22 08:20 03/09/22 08:21 03/09/22 08:20 Narrative: CONST-sleepy but easily arousable CARDIAC-normal rate, regular rhythm, normal S1 & S2. PULM-diminished without wheeze or rhonchi, RA, no accessory muscle use or cough noted MS- MAEX4 spontaneously with equal with equal strength NEURO- A&Ox2 speech clear and tongue midline, equal facial symmetry no focal motor deficits PSYCH-Mood, affect and behavior appropriate Objective Lab Results CBC & Chem 7: 03/09/22 10:07 03/09/22 04:54 Microbiology Results Microbiology 03/08/22 14:04 Nasopharyngeal SARS-CoV-2, Influenza & RSV (PCR) - Final Meds Allergies and Active Meds Allergies No Known Allergies Allergy (Verified 02/20/22 14:07) Active Meds: Active Medications Generic Name Dose Route Start Last Admin Trade Name Freq PRN Reason Stop Dose Admin Dextrose 0 gm 03/08/22 18:44 Dextrose 20 % In Water 10 Gm/50 Ml Syringe IV-PUSH 03/08/23 18:43 PRN PRN Hypoglycemia Glucose 0 gm 03/08/22 18:44 Dextrose 40% Gel 15 Gm Tube PO 03/08/23 18:43 PRN PRN Hypoglycemia Hydralazine HCl 10 mg 03/08/22 18:31 Hydralazine 20 Mg/Ml Vial IV-PUSH 03/08/23 18:30 Q4H PRN if SBP > 185 Piperacillin Sod/Tazobactam Sod 3.375 gm in 100 mls @ 200 mls/hr 03/09/22 00:00 03/09/22 07:24 Zosyn IV Infused Q6H RYAN Infusion Sodium Chloride 1,000 mls @ 75 mls/hr 03/08/22 18:00 03/08/22 22:19 0.9% Sodium Chloride 1,000 Ml IV 03/08/23 17:59 75 mls/hr .[id number] RYAN Administration Vancomycin HCl 1 gm in 250 mls @ 250 mls/hr 03/09/22 06:00 03/09/22 06:33 Vancomycin IV 250 mls/hr Q12H RYAN Administration Folic Acid 1 mg/ Dextrose 50.2 mls @ 100.4 mls/hr 03/08/22 19:15 03/09/22 09:08 IV 03/08/23 19:14 100.4 mls/hr DAILY RYAN Administration Thiamine HCl 100 mg/ Sodium 51 mls @ 102 mls/hr 03/08/22 19:30 03/09/22 09:14 Chloride IV 03/08/23 19:29 102 mls/hr DAILY RYAN Administration Dexmedetomidine HCl 400 mcg/ 100 mls @ 4.815 mls/hr 03/08/22 19:30 03/09/22 07:37 Dextrose IV 03/08/23 19:29 0.8 mcg/kg/hr .[id number] RYAN 19.26 mls/hr Administration Protocol 0.2 MCG/KG/HR Potassium Phosphate 15 mmol/ 255 mls @ 85 mls/hr 03/09/22 08:49 03/09/22 09:14 Sodium Chloride IV 03/09/22 11:48 85 mls/hr ONCE ONE Administration Sodium Phosphate 15 mmol/ 255 mls @ 63.75 mls/hr 03/09/22 10:16 Sodium Chloride IV 03/09/22 14:15 ONCE ONE Insulin Aspart 0 units 03/08/22 22:00 03/09/22 09:16 Insulin Aspart 300 Units/3 Ml Insuln.Pen SUBCUT 03/08/23 21:59 2 units TID.WM.HS RYAN Administration Protocol Lorazepam 1 mg 03/08/22 18:24 Lorazepam 2 Mg/Ml Vial IV-PUSH 09/04/22 18:23 Q4H PRN Agitation Nicotine 1 each 03/08/22 19:30 03/09/22 09:08 Nicotine Patch 21 Mg/24hr 1 Each Patch.Td24 TRANSDERML 04/18/22 09:01 1 each DAILY RYAN Administration Sodium Chloride 0 ml 03/08/22 13:12 Sodium Chloride 0.9 % 10 Ml Syringe IV-PUSH 03/08/23 13:11 PRN PRN Flush Sodium Chloride 10 ml 03/08/22 14:18 Sodium Chloride 0.9 % 10 Ml Vial.Pf INJECTION 03/08/23 14:17 Q4H PRN Ativan dilution Sodium Chloride 10 ml 03/08/22 18:24 Sodium Chloride 0.9 % 10 Ml Vial.Pf INJECTION 03/08/23 18:23 Q4H PRN Ativan dilution Vancomycin HCl 1 each 03/08/22 17:57 Vancomycin - Pharmacy Dosing 1 Each Miscell IV PRN PRN ZZ.Pharmacy Consult Protocol A&P - Hospitalist Assessment/Plan (1) Altered mental status: (2) Hypokalemia: (3) Hyponatremia: (4) Hypomagnesemia: (5) Metabolic encephalopathy: Plan *Metabolic encephalopathy?etiology unclear, drug screen positive for marijuana?improving rule out infectious process ?Leukocytosis resolved, afebrile She is cooperative and answering questions appropriately, does not have any recollection of why she is in the hospital or any events prior to that. ?On Precedex drip we will reduce dose and and hopefully discontinue if she improves ?CT brain in the ED was nonacute ?CRX in ED did not show any acute cardiopulmonary process ?ABGs showed pH 7.48. PCO2 29.2, PO2 30.3 bicarb 21.5 ?Drug screen positive for marijuana ?Lactic acid, ethanol level wnl, ammonia levels<9 ?Blood cultures still pending pending ?On broad-spectrum antibiotic, will consider de-escalating antibiotics ?Monitor CBC *Normocytic anemia?likely dilutional effect, no signs and symptoms of bleeding ?Hemoglobin 7.0 today, previous 9.7. Repeat in 7.5. Could be dilutional ?We will check stool for guaiac ?Iron panel pending ?Monitor CBC and transfuse to keep hemoglobin above 7 *Hyponatremia, improving ? Sodium 129 this morning ?Check TSH and morning cortisol ? On IV fluids ?Monitor BMP *Hypomagnesemia?resolved *Torsades de pointe?on admission ?EKG in ED with prolonged QTC of 572, will repeat EKG today *Hypokalemia?repleted ? Potassium 3.3 this morning ? Continue to monitor *Hypertension?improved ?Hydralazine as needed Resolved issues Sinus tachycardia Hypomagnesemia Chronic conditions: 1. Diabetes type?sliding scale insulin. Accu-Cheks every 6 hours while NPO. Hypoglycemia 2. Hypertension 3. Left shoulder fracture 4. Anxiety/depression 5. Cannabis use CODE STATUS: Full code DVT prophylaxis: SCD Attending Physician Attestation: I personally reviewed the history, performed the freedman elements of the exam, formulated the plan of care and confirmed the written note. I agree with the findings and plan as documented in this note and have edited it if needed to reflect my findings and plan. Mental status improving. Patient is alert and awake and oriented to self, place but not time. Does not recall what happened or how she ended up here. I still have high suspicion for drug related encephalopathy. She denies drinking alcohol but does admit smoking week ( said last smoked long time ago?!) I told her it was detected in urine. She is still definitely confused. Will continue to monitor mental status and optimize electrolytes. Deangelo Quiroz MD Documented By: Denice Buckner APRN 03/09/22 1144 Signed By: <Electronically signed by HEMANTH Buckner> 03/09/22 1209 <Electronically signed by Deangelo Kulkarni MD> 03/09/22 1411 [facility] Work Phone: 1(665) 244-714112-01-2022 History and physical note Author Deangelo Kulkarni [facility] March 08, 2022 7:23pm Note Date/Time March 08, 2022 6 :07pm [facility] [address] [place] [address] Hospitalist H&P Signed Patient: Guera Sanchez MR#: [id number] : 1955 Acct:[id number] Age/Sex: 66 / F Adm Date: 2 Loc: Room: [address] [place] [address] Type: ADM IN Attending Dr: Deangelo Kulkarni MD Copies to: MD Deniec De Souza, HEMANTH Kulkarni MD~ HPI DATE OF EXAMINATION: 03/08/22 CHIEF COMPLAINT: Altered mental status HISTORY OF PRESENT ILLNESS: Patient is a 66-year-old female with a past medical history of type 2 diabetes, hypertension, anxiety, recent left shoulder fracture status post closed displaced fracture of surgical neck of left humerus [address] Napoles[address]who was brought via EMS to the emergency room for altered mental status. According to the ER [employer] she was found by a friend at home alone in a very confused state. According to her friend she was unable to reach her since coming out of her surgery and decided to do a welfare check. She uses marijuana on a regular basis according to her friend testimony. History is limited at this time due topatient's mental status. She is unresponsive to verbal stimuli, slightly responsive to painful stimuli. No chest pain, tachycardic no cough, dyspnea, orpain with inspiration. Fevers max temp 100.8 Upon arrival to the ER, EKG was sinus sinus tachycardia heart rate 128 with a prolonged QT of 572. Head CT was nonacute for any acute intracranial process. CXR did not show any acute cardiopulmonary abnormalities. Urinalysis with noninfectious. WBC 12.8. Hemoglobin 9.7. VBG's was obtained with a pH of 7.40CO2 29.2 sodium 122. Potassium 2.5. Magnesium 0.8. Lactic acid 1.6 ammonia less than 9. Troponin 33. Patient was administered 3% normal saline bolus. Normal saline 3 L. Magnesium 4 gMS. potassium 40 mEq. She will be admitted by the hospitalist team for further evaluation and treatment . Review of Systems Review of Systems Review of systems: 10 point review of systems obtained negative unless noted in the HPI or below [facility] Attestation Statement: The following information was validated with the patient. Source: Old Records Reviewed Vaccinated for COVID-19?: Unknown Medical History Anxiety Depression Diabetes mellitus, type 2 Hypercholesteremia Hypertension Irritable bowel disease Thyroid disease Wears hearing aid in both ears Surgical History History of cataract surgery OU History of kyphoplasty History of lumbar discectomy Family History Father Depression Anxiety IBS (irritable bowel syndrome) Mother Depression Anxiety Lung cancer Social History Smoking Status: Unknown if ever smoked Tobacco Type: cigarettes Substance Use Type: Unknown Substance Abuse Comment: Medical marijuana several times a day. Social History Comments: grandson lives with patient Meds Medications and Allergies Allergies No Known Allergies Allergy (Verified 02/20/22 14:07) Home Medications atorvastatin 10 mg tablet 10 mg PO QAM cholesterol 02/20/22 [History Confirmed 03/08/22] citalopram 40 mg tablet 80 mg PO QAM 02/20/22 [History Confirmed 03/08/22] cyclobenzaprine 10 mg tablet 10 mg PO TID PRN Muscle Spasm 02/20/22 [History Confirmed 03/08/22] gabapentin 600 mg tablet 1,200 mg PO BID pain 02/20/22 [History Confirmed 03/08/22] hydrochlorothiazide 12.5 mg tablet 12.5 mg PO DAILY 02/20/22 [History Confirmed 03/08/22] irbesartan 300 mg tablet 300 mg PO DAILY HTN 02/20/22 [History Confirmed 03/08/22] liothyronine 5 mcg tablet 10 mcg PO DAILY thyroid disorder 02/20/22 [History Confirmed 03/08/22] pioglitazone 45 mg tablet (Actos) 45 mg PO DAILY 02/20/22 [History Confirmed 03/08/22] quetiapine 100 mg tablet 100 mg PO QHS 02/20/22 [History Confirmed 03/08/22] sodium chloride 1 gram tablet 1,000 mg PO TID 03/06/22 [History Confirmed 03/08/22] cephalexin 500 mg capsule 500 mg PO Q8H #6 caps 03/07/22 [Rx Confirmed 03/08/22] ondansetron 4 mg disintegrating tablet 4 mg PO Q6H #10 tabs 03/07/22 [Rx Confirmed 03/08/22] oxycodone-acetaminophen 5 mg-325 mg tablet (Percocet) 1 tab PO Q4H PRN Pain 5 days #20 tabs 03/07/22 [Rx Confirmed 03/08/22] cetirizine 10 mg tablet (Zyrtec) 10 mg PO DAILY 03/08/22 [History Confirmed 03/08/22] ibuprofen 800 mg tablet 800 mg PO Q6H PRN Pain 03/08/22 [History Confirmed 03/08/22] metformin 850 mg tablet 850 mg PO TID 03/08/22 [History Confirmed 03/08/22] potassium chloride 20 mEq tablet,extended release(part/cryst) (Klor-Con M) 20 meq PO QID 03/08/22 [History Confirmed 03/08/22] Exam Physical Exam Vital Signs: Temp Pulse Resp BP Pulse Ox O2 Del Method 100.8 F H 121 H 22 192/86 H 97 Room Air 03/08/22 17:52 03/08/22 17:52 03/08/22 17:52 03/08/22 17:52 03/08/22 17:52 03/08/22 17:52 Results Lab Results Labs: Laboratory Last Values Corrected WBC 12.8 X10E3/uL (3.8-11.6) H 03/08/22 13:18 Uncorrected WBC Count 12.8 x10E3/uL (3.8-11.6) H 03/08/22 13:18 RBC 3.06 X10E6/uL (3.60-5.00) L 03/08/22 13:18 Hgb 9.7 g/dL (11.8-15.4) L 03/08/22 13:18 Hct 28.4 % (34.0-46.4) L 03/08/22 13:18 MCV 92.7 fl (80-100) 03/08/22 13:18 MCH 31.6 pg (24.7-34.3) 03/08/22 13:18 MCHC 34.1 g/dL (32.0-35.0) 03/08/22 13:18 RDW 14.2 % (11.9-15.3) 03/08/22 13:18 Plt Count 348 x10E3/uL (150-450) 03/08/22 13:18 MPV 8.8 fl (6.3-10.7) 03/08/22 13:18 Neut % (Auto) 77.0 % (.) 03/08/22 13:18 Lymph % (Auto) 9.5 % (.) 03/08/22 13:18 [place] % (Auto) 13.4 % (.) 03/08/22 13:18 Eos % (Auto) 0.0 % (.) 03/08/22 13:18 Baso % (Auto) 0.1 % (.) 03/08/22 13:18 Nucleat RBC Rel Count 0.0 /100 WBC (0-0.5) 03/08/22 13:18 Neut # (Auto) 9.8 x10E3/uL (1.8-7.7) H 03/08/22 13:18 Lymph # (Auto) 1.2 x10E3/uL (1.00-4.8) 03/08/22 13:18 [place] # (Auto) 1.7 x10E3/uL (0.0-0.8) H 03/08/22 13:18 Eos # (Auto) 0.0 x10E3/uL (0.0-0.45) 03/08/22 13:18 Baso # (Auto) 0.0 x10E3/uL (0.0-0.2) 03/08/22 13:18 Monocyte Dist Width 22.30 % (0.00-20.00) H 03/08/22 13:18 Platelet Estimate Normal (Normal) 03/08/22 13:18 Plt Morphology Comment Normal (Normal) 03/08/22 13:18 RBC Morphology N/A 03/08/22 13:18 Hypochromasia Moderate 03/08/22 13:18 Poikilocytosis Slight 03/08/22 13:18 Anisocytosis Slight 03/08/22 13:18 Stomatocytes Slight 03/08/22 13:18 PT 16.9 Seconds (9.0-12.9) H 03/08/22 13:18 INR 1.5 03/08/22 13:18 APTT 31.5 Seconds (25.1-36.5) 03/08/22 13:18 Sample Site Venous 03/08/22 15:48 ABG pH 7.48 (7.35-7.45) H 03/08/22 15:48 ABG pCO2 29.2 mmHg (35.0-45.0) L* 03/08/22 15:48 ABG pO2 30.3 mmHg (80.0-100.0) L* 03/08/22 15:48 ABG HCO3 21.5 mmol/L (23.0-29.0) L 03/08/22 15:48 ABG Total CO2 22.4 mmol/L (23.0-27.0) L 03/08/22 15:48 ABG O2 Saturation 58.4 % (95.0-100.0) L 03/08/22 15:48 ABG O2 Content 3.3 mmol/L (6.6-9.7) L 03/08/22 15:48 ABG Base Excess -1.4 mmol/L (-3.0-3.0) 03/08/22 15:48 FiO2 21 % 03/08/22 15:48 Critical Value 03/08/22 15:48 PHA Creatinine Clear 82.80 03/08/22 15:34 Sodium 126 mmol/L (136-146) L 03/08/22 15:34 Potassium 2.5 mmol/L (3.5-5.1) L* 03/08/22 13:18 Chloride 103 mmol/L (95-114) 03/08/22 15:34 Carbon Dioxide 20.3 mmol/L (22.0-30.0) L 03/08/22 15:34 Anion Gap 16.3 mEq/L (6.0-15.0) H 03/08/22 13:18 BUN 8 mg/dL (9-23) L 03/08/22 15:34 Creatinine 0.58 mg/dL (0.44-1.03) 03/08/22 15:34 Est GFR ( Amer) > 60 mL/Min 03/08/22 15:34 Est GFR (Non-Af Amer) > 60 mL/Min 03/08/22 15:34 Glucose 202 mg/dL (70-100) H 03/08/22 15:34 POC Glucose 236 mg/dl 03/08/22 14:06 Lactic Acid 1.6 mmol/L (0.5-2.2) 03/08/22 15:04 Calcium 7.5 mg/dL (8.2-10.2) L 03/08/22 13:18 Magnesium 0.8 mg/dL (1.6-2.6) L* 03/08/22 13:18 Total Bilirubin 1.1 mg/dL (0.3-1.2) 03/08/22 13:18 AST 17 U/L (10-42) 03/08/22 13:18 ALT 13 U/L (10-60) 03/08/22 13:18 Alkaline Phosphatase 132 U/L (32-92) H 03/08/22 13:18 Ammonia < 9 umol/L (11-35) L 03/08/22 15:04 Total Creatine Kinase 46 U/L (22-269) 03/08/22 13:18 CK-MB (CK-2) 1.3 ng/mL (0.6-6.3) 03/08/22 13:18 CK-MB (CK-2) Rel Index 2.8 % (0.00-2.50) H 03/08/22 13:18 Troponin I High Sens 33 pg/mL (0-15) H 03/08/22 13:18 Total Protein 5.6 gm/dL (6.1-7.9) L 03/08/22 13:18 Albumin 2.6 gm/dL (3.2-5.5) L 03/08/22 13:18 Globulin 3.0 gm/dL 03/08/22 13:18 Albumin/Globulin Ratio 0.9 03/08/22 13:18 Urine Color Yellow (Yellow) 03/08/22 14:14 Urine Appearance Clear (Clear) 03/08/22 14:14 Urine pH 8.0 (5.0-9.0) 03/08/22 14:14 Ur Specific [place] 1.015 (1.001-1.030) 03/08/22 14:14 Urine Protein 30 mg/dL (Negative) H 03/08/22 14:14 Urine Glucose (UA) 250 mg/dL (Normal) H 03/08/22 14:14 Urine Ketones 2+ (Negative) H 03/08/22 14:14 Urine Occult Blood Trace (Negative) H 03/08/22 14:14 Urine Nitrite Negative (Negative) 03/08/22 14:14 Urine Bilirubin Negative (Negative) 03/08/22 14:14 Urine Urobilinogen Normal mg/dL (Normal) 03/08/22 14:14 Ur Leukocyte Esterase Negative (Negative) 03/08/22 14:14 Urine RBC 5-9 /HPF (0-4) H 03/08/22 14:14 Urine WBC 0-1 /HPF (0-4) 03/08/22 14:14 Ur Squamous Epith Cells 1-2 /HPF (0-2) 03/08/22 14:14 Ur Renal Epithelial Cell None seen /HPF (0-1) 03/08/22 14:14 Urine Bacteria None seen (None Seen) 03/08/22 14:14 Hyaline Casts 0-8 /LPF (0-8) 03/08/22 14:14 Urine Opiates Screen Negative (Negative) 03/08/22 14:14 Ur Barbiturates Screen Negative (Negative) 03/08/22 14:14 Ur Phencyclidine Scrn Negative (Negative) 03/08/22 14:14 Ur Amphetamines Screen Negative (Negative) 03/08/22 14:14 U Benzodiazepines Scrn Negative (Negative) 03/08/22 14:14 Urine Cocaine Screen Negative (Negative) 03/08/22 14:14 U Marijuana (THC) Screen Positive (Negative) H 03/08/22 14:14 SARS-CoV-2 Rap RNA(RT-PCR) Negative (Negative) 03/08/22 14:04 Microbiology Results Micro: Microbiology - Results from entire visit 03/08/22 14:04 Nasopharyngeal SARS-CoV-2, Influenza & RSV (PCR) - Final ABG Interpretation ABG results: 03/08/22 15:48 ABG pH 7.48 H ABG pCO2 29.2 L* ABG pO2 30.3 L* ABG HCO3 21.5 L ABG Total CO2 22.4 L ABG O2 Saturation 58.4 L ABG O2 Content 3.3 L ABG Base Excess -1.4 A&P - Hospitalist Assessment/Plan (1) Altered mental status: (2) Hypokalemia: (3) Hyponatremia: (4) Hypomagnesemia: (5) Metabolic encephalopathy: Plan *Metabolic encephalopathy?etiology unclear, drug screen positive for marijuana rule out infectious process Patient was brought in via EMS after she was to have altered mental status in her home. She is status post 2 days bicep tendon repair by Dr. Hicks. Currently she is not responding to verbal stimuli, slightly responsive to painful stimuli. ?Admit to ICU ?CT brain in the ED was nonacute ?CRX in ED did not show any acute cardiopulmonary process ?EKG showed sinus tachycardia, heart rate 120 bpm with prolonged QTC 572 ?WBC 12.8, maximum temperature in ED 100.8 ?ABGs showed pH 7.48. PCO2 29.2, PO2 30.3 bicarb 21.5 ?Drug screen positive for marijuana ?Lactic acid wnl ?Ammonia <9 ?Blood cultures pending ?Alcohol level pending ?We will continue broad-spectrum antibiotic ?Monitor CBC *Hyponatremia ?Sodium 122>>126 ?Administered 3% saline in the ED ?We will check urine osmolality and urine sodium ?Check TSH and morning cortisol ?We will continue IV fluids with normal saline ?BMP every 6x2 ?Avoid overcorrection *Hypomagnesemia *Torsades X2 *Sinus tachycardia ?EKG as noted above ?Magnesium in ED of 0.8 ?Administered 4 mg of magnesium ?We will give 2 more milligrams of magnesium and recheck *Hypokalemia ?Potassium 2.5 in ED ?We will administer 40 mEq and recheck *Hypertension?uncontrolled ?Hydralazine as needed Chronic conditions: 1. Diabetes type?sliding scale insulin. Accu-Cheks every 6 hours while NPO. Hypoglycemia 2. Hypertension 3. Left shoulder fracture 4. Anxiety/depression 5. Cannabis use CODE STATUS: Full code DVT prophylaxis: SCD Attending Physician Attestation: I personally reviewed the history, performed the freedman elements of the exam, formulated the plan of care and confirmed the written note. I agree with the findings and plan as documented in this note and have edited it if needed to reflect my findings and plan. Patient with acute encephalopathy with multiple electrolytes abnormalities coulddue to GI losses. Likely metabolic encephalopathy vs drugs related. It was reported that her place smelt like marijuana. No meningeal signs on exam in ER. Unlikely meningitis. Started on board spectrum antibiotics concern for sepsis process given her recent surgery. will discontinue AB if cultures are negative. Continue to correct electrolytes to keep K around 4, Mag around 2, and Phos around 3. Started Precedex drip for agitation. Nicotine patches. Ativan PRN is ordered. Added Thiamin and folate for possible Wernicke encephalopathy. Neurology consultrequested. Admit to ICU for close monitoring since patient developed Torsades depointe in ER due to electrolytes imbalance. Monitor closely for arrhythmia. Deangelo Quiroz MD Documented By: Denice Buckner APRN 03/08/22 180 Signed By: <Electronically signed by HEMANTH Buckner> 03/08/22 1858 <Electronically signed by Deangelo Kulkarni MD> 03/08/22 192 [facility] Work Phone: [phone] [phone] Evaluation note* Encounter Date Diagnosis Assessment Notes Treatment Notes Treatment Clinical Notes Feb, 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) [employer] Other Evaluation + Plan note No data available for this section General Surgery [place] Evaluation noteNo assessment information available [facility] Work Phone: Evaluation note* Diagnosis Onset Date Resolution Status Acute electrocardiography changes acute Altered mental status acute Hypokalemia acute Hypomagnesemia acute Hyponatremia acute Metabolic encephalopathy acu te [facility] Work Phone: Evaluation note* Diagnosis Onset Date Resolution Status Acute electrocardiography changes acute Altered mental status acute Duodenitis acute Hypokalemia acute Hypomagnesemia acute Hyponatremia acute Metabolic encephalopathy acu te PRES (posterior reversible encephalopathy syndrome) acute [facility] Work Phone: evaluation note* Diagnosis Onset Date Resolution Status Acute electrocardiography changes acute Altered mental status acute Duodenitis acute Hypokalemia acute Hypomagnesemia acute Hyponatremia acute Metabolic encephalopathy acu te PRES (posterior reversible encephalopathy syndrome) acute Anemia acute Duodenitis acute Hypokalemia acute Hypomagnesemia acute Hyponatremia acute Impaired mobility and activities of daily living acute Metabolic encephalopathy acu te PRES (posterior reversible encephalopathy syndrome) acute [facility] Work Phone: evaluvturx [facility]No [facility] Other Hisjx[facility] general Narrative - Reported* Type Description Date Medical History diabetes Medical History hypertension Medical History anxiety Medical History left shoulder fracture [facility] Other Hisbwcb general Narrative - Reported* Type Description Date Medical History diabetes Medical History hypertension Medical History anxiety Medical History left shoulder fracture Surgical History left reverse total shoulder Hospitalization History See Surgeries [facility] Other Hospital Discharge instructions Additional Instructions DISCHARGE INSTRUCTIONS TOTAL SHOULDER REPLACEMENT/REVERSE TOTAL SHOULDER REPLACEMENT ACTIVITY 1. No active motion to the involved shoulder. 2. Begin active elbow and wrist exercises today. 3. Begin gentle shoulder pendulum and table walk. 4. Utilize your sling during activity. It is OK to remove sling when sitting. 5. May need to sleep sitting up to prevent pain. 6. Ice shoulder for 20 minutes every hour as tolerated. 7. Try to keep hand elevated when lying/sitting 8. Driving It is OK to drive after 3 days IF not taking pain medication and able to drive with one arm. 9. May shower in 7-10 days with assistance. DRESSING 1. It is OK to remove dressing in 48 hours and leave open to air at times. 2. Reapply light gauze dressing. 3. Do NOT soak wound, it is OK to clean around it gently. MEDICATION 1. An oral antibiotic has been called to your pharmacy. You will need to pick this up 2. Take pain medications as directed around the clock for 24-48 hours to prevent extreme pain. It is OK to use Tylenol or Ibuprofen instead of pain medication. 3. Progressively decrease pain medication use as soon as possible. OTHER -Any problems call the office at [phone] or return to Emergency Room. If you are having excessive or persistent pain, swelling, fever (oral temp > 101), yellow- green foul smelling drainage or bleeding from incision, excessive redness of incision, nausea, vomiting, or any other problems, you should first call your surgeon for advice. If you are unable to contact your surgeon, seek help from a hospital emergency room. POST-OPERATIVE APPOINTMENT 1. Return to the office in one week; call the office at [phone] if your appointment has not been made already. Call [phone] for further questions.[facility] Work Phone: Hospital Discharge instructions Additional Instructions Rehab to manage: -PT/OT to eval and treat -Monitor VS per protocol -Fall precautions -Routine assessments -Routine skin care and assessments -Monitor FSBS ACHS -Change dressing every 3 days: *Mepilex border foam to Coccyx for protection. -Change dressing to left shoulder PRN: *clean wound with NS, then apply 4x4 gauze and secure with foam tape -Orthopedic recommendations for left shoulder: *allow early active elbow and wrist motion as well as pendulum shoulder motion *maintain left arm sling -Monitor for signs of infection -Care to be managed by rehab providers.[facility] Work Phone: Hospital Discharge instructions Additional Instructions -Code Status: Full Code -Activity: Non-Weight Bearing to the Left Upper Extremity, wear a sling at all times. OK to do active elbow and wrist motion as well as pendulum shoulder motion. -Diet: Diabetic 2000 ADA, GI soft/low fiber. -OK to leave incision open to air if not draining. May cover with dry sterile dressing for protection or if it is draining. Leave steri strips intact, do not remove them. They will fall off on their own. -Monitor Fingerstick Blood Glucose Daily and as needed as you previously did at home. You have been given prescriptions for new and/or needed medications. These prescriptions are for a one time fill only with no refills. For further refills going forward you will need to address with your Primary Care Provider at your follow up appointment or by calling your PCP's office prior to the prescriptions running out. NOTE: Please call within 24 hours of your appointments (listed below) if you need to cancel or change any of these. Please arrive early and bring current medication list, photo ID, and any insurance card(s).[facility] Work Phone: Hospital Discharge instructions No data available for this section General Surgery [place] Progress note No data available for this section General Surgery [place] Chief Complaint and Reason for Visit Chief Complaint Left Shoulder Pain pain pain Chief Complaint Left Shoulder Pain pain pain AMS/FEVER/SHOULDER PAIN Reason for Visit Acute electrocardiog sara changes Altered mental status Hypokalemia Hypomagnesemia Hyponatremia Metabolic encephalopathy Chief Complaint Left Shoulder Pain pain pain AMS/FEVER/SHOULDER PAIN Reason for Visit Acute electrocardiog sara changes Altered mental status Duodenitis Hypokalemia Hypomagnesemia Hyponatremia Metabolic encephalopathy PRES (posterior reversible encephalopathy syndrome) Chief Complaint Left Shoulder Pain pain pain AMS/FEVER/SHOULDER PAIN Metabolic Encephalopathy/PRES Reason for Visit Acute electrocardiog sara changes Altered mental status Duodenitis Hypokalemia Hypomagnesemia Hyponatremia Metabolic encephalopathy PRES (posterior reversible encephalopathy syndrome) Anemia Duodenitis Hypokalemia Hypomagnesemia Hyponatremia Impaired mobility and activities of daily living Metabolic encephalopathy PRES (posterior reversible encephalopathy syndrome) Chief Complaint Left Shoulder Pain Left Shoulder Pain pain pain AMS/FEVER/SHOULDER PAIN Metabolic Encephalopathy/PRES Reason for Visit Acute electrocardiog sara changes Altered mental status Duodenitis Hypokalemia Hypomagnesemia Hyponatremia Metabolic encephalopathy PRES (posterior reversible encephalopathy syndrome) Anemia Duodenitis Hypokalemia Hypomagnesemia Hyponatremia Impaired mobility and activities of daily living Metabolic encephalopathy PRES (posterior reversible encephalopathy syndrome) Chief Complaint S42.212A Family History No Family History Records Found Relationship Condition Age at Onset Recorded Date/T filomena father Depression Unknown Anxiety Unknown Irritable bowel syndrome Unknown Not Specified Depression Unknown Malignant neoplasm of lung Unknown Advance Directives No Advanced Directives Records Found Advance Directive Response Recorded Date/ Time Advance Directives No February 1:25pm Advance Directive Response Recorded Date/ Time Advance Directives No February 2:25pm Summary Purpose Reason for Referral Reason 04/18/22 post op c are after moving. [facility] or [facility] in [place], [place] if available Diagnosis 1 Displaced fracture o f proximal end of left humerus (S42.A) Referral Organization [facility] Referring Provider First Name Asa Referring Provider Last Name Dony Referring Provider Specialty Orthopedic Surgery Referred Organization Unknown Facility Referred Provider Specialty Orthopaedic Surgery Referral Priority Routine Referral Appointment Date 2022-04-18 General Notes KayDestiny 12:58:50 PM > patient is s/p Arthrex cemented [left] reverse total shoulder. Size [9] cemented reverse stem with +6 extension [+3] poly-. [24] glenoid baseplate with 36 glenosphere/Biceps tenodesis/Bone graft proximal humerus DOS 03/06/2022 Asia Ellison 04/03/2022 03:03:11 PM >called [facility] and confirmed that they will consider scheduling patient but will need records and Operative report faxed first, once received they will forward the documents to their shoulder specialists to see if they will agree to take over care for patient now that she is in [place]. Asia Ellison 04/16/2022 10:37:33 AM >called and confirmed patient is coming in 04/18/22 with Asia Mcarthur 05/18/2022 10:11:24 AM >office received the consult note directly 04/19/22, closing referral Clinical Notes [facility] - [facility] ph [phone] / fax [phone] Additional Source Comments Care Teams (unrecognized sec tion and content) Team Status: Active Member Role Status Dates Ash Bernstein MD Primary Care Provider Active Team Status: Inactive Member Role Status Dates Ash Bernstein MD Primary Care Provider Active Asa Napoles MD Attending Provider Active Team Status: Active Member Role Status Dates Ash Bernstein MD Primary Care Provider Active Barry Colby DO Emergency Provider Active Deangelo Kulkarni MD Admit Provider, Attending Provi angelique Active Team Status: Inactive Member Role Status Dates Ash Bernstein MD Primary Care Provider Active Barry Colby , DO Emergency Provider Active Deangelo Kulkarni MD Admit Provider Active Skyler Ro MD Other Provider Active Javan Boothe , DO Other Provider Active Navarro Cota , DO Attending Provider Active Team Status: Inactive Member Role Status Dates Ash Bernstein MD Primary Care Provider Active Ryan Ibrahim MD Admit Provider, Attending Provider A ctive Vanessa Garcia , CHRISTIE Other Provider Active Azalea German , CHRISTIE Other Provider Active Rosemary Kay , CHRISTIE Other Provider Active Rafaela Vu , CHRISTIE Other Provider Active Ying Rivera , CHRISTIE Other Provider Active Aleida Tamez , CHRISTIE Other Provider Active Mario Knutson MD Other Provider Active Michael Weber MD Other Provider Active Sarahi Braswell APRN Other Provider Active Aubrey Martinez , DO Other Provider Active Jonnathan Miguel MD Other Provider Active Navarro Cota , DO Other Provider Active Jan Wood MD Other Provider Active Angelina Riley MD Other Provider Active Nicolasa Hull , ANP-BC Other Provider Active Conchita Weber MD Other Provider Active Kobe Morris MD Other Provider Active Rachel Persaud MD Other Provider Active Chandler Wynn MD Other Provider Active Zainab Story , DO Other Provider Active Laurne Vicente MD Other Provider Active Zack Alonso MD Other Provider Active Keisha Posadas , CLAY PROCESSING [employer]CTORY WORKER-C Other Provider Active Wilian Pearson MD Other Provider Active Kun Perkins MD Other Provider Active Derrick Cash MD Other Provider Active Marlee Garces , DO Other Provider Active Luca Lang , DO Other Provider Active Ori Pardo , DO Other Provider Active Denice Buckner APRN Other Provider Active Eugenio Tirado , DO Other Provider Active Deangelo Kulkarni MD Other Provider Active Mary Shoemaker APRN Other Provider Active Milvia Palacio , CHRISTIE Other Provider Active INFORMATION SOURCE (unrecogn ized section and content) DATE CREATED AUTHOR 04/25/2022 [facility] DATE CREATED AUTHOR AUTHOR'S ORGANIZ ATION 06/16/2022 [facility] DATE CREATED AUTHOR AUTHOR'S ORGANIZ ATION 08/08/2022 [facility] DATE CREATED AUTHOR AUTHOR'S ORGANIZ ATION 10/23/2022 [facility] REASON FOR VISIT (unrecogniz ed section and content) Recheck Left ShoulderPT/fufo llow uppost op scripts Goals (unrecognized section and content) Goals may be documented in a n alternate section FOR RECORDS PERTAINING TO PATIENTS WHO ARE OR HAVE BEEN ENROLLED IN A CHEMICAL DEPENDENCY/SUBSTANCEABUSE PROGRAM, SOME INFORMATION MAY BE OMITTED. This clinical summary was aggregated from multiple sources. Caution should be exercised in using it in the provision of clinical care. This summary normalizes information from multiple sources, and as a consequence, information in this document may materially change the coding, format and clinical context of patient data. In addition, data may be omitted in some cases. CLINICAL DECISIONS SHOULD BE BASED ON THE PRIMARY CLINICAL RECORDS. [facility] [employer] [facility]. provides no warranty or guarantee of the accuracy or completeness of information in this document.
[2023-04-18 10:57] LABS: Magnesium 1.8 mg/dL (1.8-2.4)
== END 2023-04-18 10:28 | disposition home or self-care (01) ==
LOC: LAB 10:31
PROVIDERS: PCP Family Medicine; Visit Provider Family Medicine
DX: E83.42 Hypomagnesemia (principal); E87.1 Hypo-osmolality and hyponatremia; D50.9 Iron deficiency anemia, unspecified
CPT/HCPCS: 36415; 83735

== ENCOUNTER 2023-05-20 12:45 | Outpatient (OUT) | payer MEDICARE, SELFPAY ==
--- OUTSIDE RECORDS SUMMARY | 2023-05-20 13:06 | XMS_ITS | CCD ---
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 Name Role Phone MD Ash Bernstein Primary Care Provider MD Asa Napoles Attending Provider DO Barry Colby Emergency Provider MD Deangelo Kulkarni Admit Provider MD Deangelo Kulkarni Attending Provider MD Skyler Ro Other Provider DO Javan Boothe Other Provider DO Navarro Cota Attending Provider MD Ryan Ibrahim Admit Provider MD Ryan Ibrhaim Attending Provider CHRISTIE Garcia Other Provider Unavailable CHRISTIE German Other Provider Unavailable CHRISTIE Kay Other Provider Unavailable CHRISTIE Vu Other Provider Unavailable CHRISTIE Rivera Other Provider Unavailable CHRISTIE Tamez Other Provider Unavailable MD Mario Knutson Other Provider MD Michael Weber Other Provider HEMANTH Braswell Other Provider DO Aubrey Martinez Other Provider MD Jonnathan Miguel Other Provider [phone] DO Navarro Cota Other Provider MD Jan Wood Other Provider MD Angelina Riley Other Provider Kurtis, ANP-BC Nicolasa Other Provider MD Conchita Weber Other Provider [phone] MD Kobe Morris Other Provider MD Rachel Persaud Other Provider MD Chandler Wynn Other Provider DO Zainab Story Other Provider MD Lauren Vicente Other Provider MD Zack Alonso Other Provider ELISA Posadas-C Keisha Diaz Other Provider MD Wilian Pearson Other Provider MD Kun Perkins Other Provider MD Derrick Cash Other Provider DO Marlee aGrces Other Provider DO Luca Lang Other Provider DO Ori Pardo Other Provider HEMANTH Buckner Other Provider DO Eugenio Tirado Other Provider MD Deangelo Kulkarni Other Provider HEMANTH Shoemaker Other Provider CHRISTIE Palacio Other Provider Unavailable Ash Bernstein Primary Care Physician Asa Napoles Unavailable Zainab BURNS Attending Unavailable Zainab BURNS Attending Unavailable Zainab BURNS Attending Unavailable MD Ash Bernstein Primary Care Provider MD Asa Napoles Attending Provider DR ASH WESTBROOK Primary Care Unavailable AMANDEEP [...] ., VAHID Attending Unavailable HOY ., DR ALEMAN Primary Care Unavailable JEFF ., VAHID Admitting Unavailable KATIE SOTO Consulting Unavailable AMANDEEP ., DR ALEMAN Attending Unavailable CARLEEY ., DR ALEMAN Consulting Unavailable CARLEEY ., DR ALEMAN Primary Care Unavailable HOY ., DR ALEMAN Admitting Unavailable Hoy, Ash M Primary Care Unavailable Olexa, Asa Attending Unavailable Olexa, Asa Admitting Unavailable Olexa, Asa Admitting Unavailable Olexa, Aas Attending Unavailable Hoy, Ash M Primary Care [...] Ibrahim Admitting Unavailable Azalea German Consulting Unavailable Rsoemary Kay Consulting Unavailable Rafaela Vu Consulting Unavailable [...] Garces Unavailable Luca Lang Consulting Unavailable Ori Parod Consulting Unavailable Denice Buckner Consulting Unavailable Eugenio Tirado Consulting Unavailable Deangelo Kulkarni Consulting Unavailable Mary Shoemaker Consulting Unavailable Milvia Palacio Consulting Unavailable Ash Bernstein Primary Care Unavailable Asa Napoles Attending Unavailable Asa Napoles Admitting Unavailable Allergies Allergy Classification Reported Allergen(s) Allergy Type Date of Onset Reaction(s) Facility (1 source) No Known Medication Allergies; 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: [No Known Medication Allergies] Propensity to adverse reactions (disorder) [facility] Repository Medications Current Medications Medication Drug [...] 2022 1:00am take 2 tablets by mo [facility] three times daily Magnesium Oxide 400 MG [...] 4 MG TAKE 1 TABLET BY MO [facility] FOUR TIMES A DAY NEEDED Oral for [...] 05-04-2022 Chronic Other aftercare (1 source) Other penitentiary (current) drug therapy; 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: [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 Jordan Blackwell Basophils/100 WBC (Bld) 0.5 % Normal 0.2-2.0 [facility] Comment on above: Performed By: #### C BC #### [facility] [address] [place] [address] Dr. Jordan Blackwell EO # 0.1 103/ul Normal 0.0-0.7 [facility] Comment on above: Performed By: #### C BC #### [facility] [address] [place] [address] Dr. Jordan Blackwell Eosinophils/100 WBC (Bld) 1.4 % Normal 0.9-7.0 [facility] Comment on above: Performed By: #### C BC #### [facility] [address] [place] [address] Dr. Jordan Blackwell Erythrocyte distribution width (RBC) [Ratio] 14.6 % Normal 11.0-15.0 [facility] Comment on above: Performed By: #### C BC #### [facility] [address] [place] [address] Dr. Jordan Blackwell Hematocrit (Bld) [Volume fraction] 34.7 % Critically low 36.0-48.0 [facility] Comment on above: Performed By: #### C BC #### [facility] [address] [place] [address] Dr. Jordan Blackwell Hemoglobin (Bld) [Mass/Vol] 11.1 g/dL Critically low 12.0-16.0 [facility] Comment on above: Performed By: #### C BC #### [facility] [address] [place] [address] Dr. Jordan Blackwell IG # 0.03 10e3/ul Normal 0.00-0.03 [facility] Comment on above: Performed By: #### C BC #### [facility] [address] [place] [address] Dr. Jordan Blackwell IG % 0.4 % Normal 0.0-0.5 [facility] Comment on above: Performed By: #### C BC #### [facility] [address] [place] [address] Dr. Jordan Blackwell LYMPH # 2.2 103/ul Normal 1.2-3.8 [facility] Comment on above: Performed By: #### C BC #### [facility] [address] [place] [address] Dr. Jordan Blackwell Lymphocytes/100 WBC (Bld) 28.0 % Normal 20.5-60.0 [facility] Comment on above: Performed By: #### C BC #### [facility] [address] [place] [address] Dr. Jordan Blackwell MANUAL DIFF REQ NO Normal [facility] Comment on above: Performed By: #### C BC #### [facility] [address] [place] [address] Dr. Jordan Blackwell MCH (RBC) [Entitic mass] 28.8 pg Normal 26.7-34.0 [facility] Comment on above: Performed By: #### C BC #### [facility] [address] [place] [address] Dr. Jordan Blackwell MCHC (RBC) [Mass/Vol] 32.0 g/dL Normal 29.9-35.2 [facility] Comment on above: Performed By: #### C BC #### [facility] [address] [place] [address] Dr. Jordan Blackwell MCV (RBC) [Entitic vol] 90.1 fL Normal 81.0-99.0 [facility] Comment on above: Performed By: #### C BC #### [facility] [address] [place] [address] Dr. Jordan Blackwell MONO # 0.6 103/ul Normal 0.3-0.8 [facility] Comment on above: Performed By: #### C BC #### [facility] [address] [place] [address] Dr. Jordan Blackwell Monocytes/100 WBC (Bld) 7.7 % Normal 1.7-12.0 [facility] Comment on above: Performed By: #### C BC #### [facility] [address] [place] [address] Dr. Jordan Blackwell NEUT # 4.9 103/ul Normal 1.4-6.5 [facility] Comment on above: Performed By: #### C BC #### [facility] [address] [place] [address] Dr. Jordan Blackwell Neutrophils/100 WBC (Bld) 62.0 % Normal 43.0-75.0 [facility] Comment on above: Performed By: #### C BC #### [facility] [address] [place] [address] Dr. Jordan Blackwell Platelet mean volume (Bld) [Entitic vol] 10.2 fL Normal 9.5-13.5 [facility] Comment on above: Performed By: #### C BC #### [facility] [address] [place] [address] Dr. Jordan Blackwell PLT 216 103/ul Normal 150-450 [facility] Comment on above: Performed By: #### C BC #### [facility] [address] [place] [address] Dr. Jordan Blackwell RBC 3.85 106/ul Critically low 4.20-5.40 [facility] Comment on above: Performed By: #### C BC #### [facility] [address] [place] [address] Dr. Jordan Blackwell WBC 7.8 103/ul Normal 4.0-11.0 [facility] Comment on above: Performed By: #### C BC #### [facility] [address] [place] [address] Dr. Jordan Blackwell IRONon 07-04-2022 Iron [Mass/Vol] 36.0 ug/dL Critically low 50.0-170.0 [facility] Comment on above: Performed By: #### U RCX #### [facility] [address] [place] [address] Dr. Jordan Blackwell MAGNESIUMon 07-04-2022 Magnesium [Mass/Vol] 1.5 mg/dL Critically low 1.8-2.4 [facility] Comment on above: Performed By: #### C BC #### [facility] [address] [place] [address] Dr. Jordan Blackwell PROF 14(COMP METB)on 023 Albumin [Mass/Vol] 3.5 g/dL Normal 3.4-5.0 [facility] Comment on above: Performed By: #### C BC #### [facility] [address] [place] [address] Dr. Jordan Blackwell Albumin/Globulin [Mass ratio] 1.0 {ratio} Normal [facility] Comment on above: Performed By: #### C BC #### [facility] [address] [place] [address] Dr. Jordan Blackwell ALP [Catalytic activity/Vol] 137 U/L Critically high 46-116 [facility] Comment on above: Performed By: #### C BC #### [facility] [address] [place] [address] Dr. Jordan Blackwell ALT [Catalytic activity/Vol] 58 U/L Normal 14-59 [facility] Comment on above: Performed By: #### C BC #### [facility] [address] [place] [address] Dr. Jordan Blackwell Anion gap [Moles/Vol] 12.7 mmol/L Normal [facility] Comment on above: Performed By: #### C BC #### [facility] [address] [place] [address] Dr. Jordan Blackwell AST [Catalytic activity/Vol] 53 U/L Critically high 15-37 [facility] Comment on above: Performed By: #### C BC #### [facility] [address] [place] [address] Dr. Jordan Blackwell Bilirubin [Mass/Vol] 0.2 mg/dL Normal 0.2-1.0 [facility] Comment on above: Performed By: #### C BC #### [facility] [address] [address] [address] Jordan Blackwell Calcium [Mass/Vol] 8.9 mg/dL Normal 8.5-10.1 [facility] Comment on above: Performed By: #### C BC #### [facility] [address] [place] [address] Dr. Jordan Blackwell Chloride [Moles/Vol] 101 mmol/L Normal 98-107 [facility] Comment on above: Performed By: #### C BC #### [facility] [address] [place] [address] Dr. Jordan Blackwell CO2 [Moles/Vol] 29.3 mmol/L Normal 21.0-32.0 [facility] Comment on above: Performed By: #### C BC #### [facility] [address] [place] [address] Dr. oJrdan Blackwell Creatinine [Mass/Vol] 0.91 mg/dL Normal 0.55-1.02 [facility] Comment on above: Performed By: #### C BC #### [facility] [address] [place] [address] Dr. Jordan Blackwell EGFR-AF SAMMARINESE >60 Normal >=60 [facility] Comment on above: Performed By: #### C BC #### [facility] [address] [place] [address] Dr. Jordan Blackwell EGFR-NON AF SAMMARINESE >60 Normal >=60 [facility] Comment on above: Performed By: #### C BC #### [facility] [address] [place] [address] Dr. Jordan Blackwell Globulin (S) [Mass/Vol] 3.5 g/dL Normal [facility] Comment on above: Performed By: #### C BC #### [facility] [address] [address] [address] Jordan Blackwell Glucose [Mass/Vol] 134 mg/dL Critically high 74-106 [facility] Comment on above: Performed By: #### C BC #### [facility] [address] [address] [address] Jordan Blackwell Potassium [Moles/Vol] 5.0 mmol/L Normal 3.5-5.1 [facility] Comment on above: Performed By: #### C BC #### [facility] [address] [address] [address] Jordan Blackwell Protein [Mass/Vol] 7.0 g/dL Normal 6.4-8.2 [facility] Comment on above: Performed By: #### C BC #### [facility] [address] [place] [address] Dr. Jordan Blackwell Sodium [Moles/Vol] 138 mmol/L Normal 136-145 [facility] Comment on above: Performed By: #### C BC #### [facility] [address] [place] [address] Dr. Jordan Blackwell Urea nitrogen [Mass/Vol] 11.0 mg/dL Normal 7.0-18.0 [facility] Comment on above: Performed By: #### C BC #### [facility] [address] [place] [address] Dr. Jordan Blackwell Urea nitrogen/Creatinine [Mass ratio] 12.1 mg/mg Normal [facility] Comment on above: Performed By: #### C BC #### [facility] [address] [address] [address] Jordan Blackwell INSULINon 07-02-2022 Insulin 5.3 uIU/mL Normal 2.6-24.9 [facility] Comment on above: Performed By: #### C BC #### [facility] [address] [place] [address] Dr. Jordan Blackwell CBC AUTO DIFFon 06-30-2022 BASO # 0.0 103/ul Normal 0.0-0.1 [facility] Comment on above: Performed By: #### P RBC #### [facility] [address] [address] [address] Jordan Blackwell Basophils/100 WBC (Bld) 0.4 % Normal 0.2-2.0 [facility] Comment on above: Performed By: #### P RBC #### [facility] [address] [address] [address] Jordan Blackwell EO # 0.1 103/ul Normal 0.0-0.7 [facility] Comment on above: Performed By: #### P RBC #### [facility] [address] [address] [address] Jordan Blackwell Eosinophils/100 WBC (Bld) 2.0 % Normal 0.9-7.0 [facility] Comment on above: Performed By: #### P RBC #### [facility] [address] [place] [address] Dr. Jordan Blackwell Erythrocyte distribution width (RBC) [Ratio] 14.4 % Normal 11.0-15.0 [facility] Comment on above: Performed By: #### P RBC #### [facility] [address] [address] [address] Jordan Blackwell Hematocrit (Bld) [Volume fraction] 36.3 % Normal 36.0-48.0 [facility] Comment on above: Performed By: #### P RBC #### [facility] [address] [place] [address] Dr. Jordan Blackwell Hemoglobin (Bld) [Mass/Vol] 11.4 g/dL Critically low 12.0-16.0 [facility] Comment on above: Performed By: #### P RBC #### [facility] [address] [address] [address] Jordan Blackwell IG # 0.03 10e3/ul Normal 0.00-0.03 [facility] Comment on above: Performed By: #### P RBC #### [facility] [address] [address] [address] Jordan Blackwell IG % 0.4 % Normal 0.0-0.5 [facility] Comment on above: Performed By: #### P RBC #### [facility] [address] [place] [address] Dr. Jordan Blackwell LYMPH # 2.1 103/ul Normal 1.2-3.8 [facility] Comment on above: Performed By: #### P RBC #### [facility] [address] [place] [address] Dr. Jordan Blackwell Lymphocytes/100 WBC (Bld) 29.6 % Normal 20.5-60.0 [facility] Comment on above: Performed By: #### P RBC #### [facility] [address] [place] [address] Dr. Jordan Blackwell MANUAL DIFF REQ NO Normal [facility] Comment on above: Performed By: #### P RBC #### [facility] [address] [place] [address] Dr. Jordan Blackwell MCH (RBC) [Entitic mass] 28.1 pg Normal 26.7-34.0 [facility] Comment on above: Performed By: #### P RBC #### [facility] [address] [place] [address] Dr. Jordan Blackwell MCHC (RBC) [Mass/Vol] 31.4 g/dL Normal 29.9-35.2 [facility] Comment on above: Performed By: #### P RBC #### [facility] [address] [place] [address] Dr. Jordan Blackwell MCV (RBC) [Entitic vol] 89.4 fL Normal 81.0-99.0 [facility] Comment on above: Performed By: #### P RBC #### [facility] [address] [place] [address] Dr. Jordan Blackwell MONO # 0.5 103/ul Normal 0.3-0.8 [facility] Comment on above: Performed By: #### P RBC #### [facility] [address] [place] [address] Dr. Jordan Blackwell Monocytes/100 WBC (Bld) 7.5 % Normal 1.7-12.0 [facility] Comment on above: Performed By: #### P RBC #### [facility] [address] [place] [address] Dr. Jordan Blackwell NEUT # 4.2 103/ul Normal 1.4-6.5 [facility] Comment on above: Performed By: #### P RBC #### [facility] [address] [place] [address] Dr. Jordan Blackwell Neutrophils/100 WBC (Bld) 60.1 % Normal 43.0-75.0 [facility] Comment on above: Performed By: #### P RBC #### [facility] [address] [place] [address] Dr. Jordan Blackwell Platelet mean volume (Bld) [Entitic vol] 10.6 fL Normal 9.5-13.5 [facility] Comment on above: Performed By: #### P RBC #### [facility] [address] [place] [address] Dr. Jordan Blackwell PLT 253 103/ul Normal 150-450 [facility] Comment on above: Performed By: #### P RBC #### [facility] [address] [place] [address] Dr. Jordan Blackwell RBC 4.06 106/ul Critically low 4.20-5.40 [facility] Comment on above: Performed By: #### P RBC #### [facility] [address] [place] [address] Dr. Jordan Blackwell WBC 7.0 103/ul Normal 4.0-11.0 [facility] Comment on above: Performed By: #### P RBC #### [facility] [address] [place] [address] Dr. Jordan Blackwell FERRITINon 06-30-2022 Ferritin [Mass/Vol] 27.0 ng/mL Normal 8.0-252.0 [facility] Comment on above: Performed By: #### U RCX #### [facility] [address] [place] [address] Dr. Jordan Blackwell FOLATEon 06-30-2022 FOLATE 28.70 ng/mL Normal 8.60-58.90 [facility] Comment on above: Performed By: #### U RCX #### [facility] [address] [address] [address] Jordan Blackwell FREE THYROXINE INDEX T7on FTI 2.31 Normal 1.30-4.50 [facility] Comment on above: Performed By: #### B MP #### [facility] [address] [address] [address] Jordan Blackwell T3U 34.0 % Normal 30.0-39.0 [facility] Comment on above: Performed By: #### B MP #### [facility] [address] [address] [address] Jordan Blackwell T4 [Mass/Vol] 6.80 ug/dL Normal 4.80-13.90 [facility] Comment on above: Performed By: #### B MP #### [facility] [address] [place] [address] Dr. Jordan Blackwell GLYCOHEMOGLOBIN A1Con 2022 ADA RECOMMENDATION SEE BELOW Normal [facility] Comment on above: Result Comment: ADA RECOMMENDED LIMIT 4.0 - 6.0 ADA THERAPEUTIC TARGET < 7.0 ACTION SUGGESTED > 7.0 Performed By: #### C BC #### [facility] [address] [place] [address] Dr. Jordan Blackwell Glucose [Mass/Vol] 105 mg/dL Normal [facility] Comment on above: Performed By: #### C BC #### [facility] [address] [place] [address] Dr. Jordan Blackwell HbA1c (Bld) [Mass fraction] 5.3 % Normal 4.5-6.2 [facility] Comment on above: Performed By: #### C BC #### [facility] [address] [address] [address] Jordan Blackwell IRONon 06-30-2022 Iron [Mass/Vol] 33.0 ug/dL Critically low 50.0-170.0 [facility] Comment on above: Performed By: #### U RCX #### [facility] [address] [place] [address] Dr. Jordan Blackwell LIPID PROFILEon 06-30-2022 CHOL-HDL RATIO NORM SEE BELOW Normal [facility] Comment on above: Result Comment: 3.3 - 4.4 LOW RISK 4.4 - 7.1 AVERAGE RISK 7.1 - 11.0 MODERATE RISK >11.0 HIGH RISK Performed By: #### B MP #### [facility] [address] [address] [address] Jordan Blackwell Cholesterol [Mass/Vol] 148 mg/dL Normal <=200 [facility] Comment on above: Performed By: #### B MP #### [facility] [address] [address] [address] Jordan Blackwell Cholesterol in HDL [Mass/Vol] 62 mg/dL Critically high 40-60 [facility] Comment on above: Performed By: #### B MP #### [facility] [address] [address] [address] Jordan Blackwell Cholesterol in LDL [Mass/Vol] 70.8 mg/dL Normal [facility] Comment on above: Performed By: #### B MP #### [facility] [address] [address] [address] Jordan Blackwell Cholesterol.total/Clau sterol in HDL [Mass ratio] 2.4 {ratio} Normal [facility] Comment on above: Performed By: #### B MP #### [facility] [address] [place] [address] Dr. Jordan Blackwell HDL NORMAL > or = 60 mg/dl - LO W CARDIOVASCULAR RISK <40 mg/dl - HIGH CARDIOVASCULAR RISK Normal [facility] Comment on above: Performed By: #### B MP #### [facility] [address] [address] [address] Jordan Blackwell LDL CALC NORMAL SEE BELOW Normal [facility] Comment on above: Result Comment: <100 mg/dl OPTIMAL 100 - 129 mg/dl NEAR OR ABOVE OPTIMAL 130 - 159 mg/dl BORDERLINE HIGH 160 - 189 mg/dl HIGH >190 mg/dl VERY HIGH Performed By: #### B MP #### [facility] [address] [address] [address] Jordan Blackwell Triglyceride [Mass/Vol] 76 mg/dL Normal <=150 [facility] Comment on above: Performed By: #### B MP #### [facility] [address] [place] [address] Dr. Jordan Blackwell VLDL CALC 15.2 mg/dL Normal [facility] Comment on above: Performed By: #### B MP #### [facility] [address] [place] [address] Dr. Jordan Blackwell MAGNESIUMon 06-30-2022 Magnesium [Mass/Vol] 0.9 mg/dL Critically low 1.8-2.4 [facility] Comment on above: Performed By: #### B MP #### [facility] [address] [place] [address] Dr. Jordan Blackwell PROF 14(COMP METB)on 023 Albumin [Mass/Vol] 3.6 g/dL Normal 3.4-5.0 [facility] Comment on above: Performed By: #### C BC #### [facility] [address] [place] [address] Dr. Jordan Blackwell Albumin/Globulin [Mass ratio] 1.0 {ratio} Normal [facility] Comment on above: Performed By: #### C BC #### [facility] [address] [place] [address] Dr. Jordan Blackwell ALP [Catalytic activity/Vol] 132 U/L Critically high 46-116 [facility] Comment on above: Performed By: #### C BC #### [facility] [address] [place] [address] Dr. Jordan Blackwell ALT [Catalytic activity/Vol] 21 U/L Normal 14-59 [facility] Comment on above: Performed By: #### C BC #### [facility] [address] [place] [address] Dr. Jordan Blackwell Anion gap [Moles/Vol] 9.1 mmol/L Normal [facility] Comment on above: Performed By: #### C BC #### [facility] [address] [place] [address] Dr. Jordan Blackwell AST [Catalytic activity/Vol] 18 U/L Normal 15-37 [facility] Comment on above: Performed By: #### C BC #### [facility] [address] [place] [address] Dr. Jordan Blackwell Bilirubin [Mass/Vol] 0.2 mg/dL Normal 0.2-1.0 [facility] Comment on above: Performed By: #### C BC #### [facility] [address] [place] [address] Dr. Jordan Blackwell Calcium [Mass/Vol] 8.3 mg/dL Critically low 8.5-10.1 [facility] Comment on above: Performed By: #### C BC #### [facility] [address] [place] [address] Dr. Jordan Blackwell Chloride [Moles/Vol] 97 mmol/L Critically low 98-107 [facility] Comment on above: Performed By: #### C BC #### [facility] [address] [place] [address] Dr. Jordan Blackwell CO2 [Moles/Vol] 28.5 mmol/L Normal 21.0-32.0 [facility] Comment on above: Performed By: #### C BC #### [facility] [address] [place] [address] Dr. Jordan Blackwell Creatinine [Mass/Vol] 0.68 mg/dL Normal 0.55-1.02 [facility] Comment on above: Performed By: #### C BC #### [facility] [address] [place] [address] Dr. Jordan Blackwell EGFR-AF SAMMARINESE >60 Normal >=60 [facility] Comment on above: Performed By: #### C BC #### [facility] [address] [place] [address] Dr. Jordan Blackwell EGFR-NON AF SAMMARINESE >60 Normal >=60 [facility] Comment on above: Performed By: #### C BC #### [facility] [address] [place] [address] Dr. Jordan Blackwell Globulin (S) [Mass/Vol] 3.6 g/dL Normal [facility] Comment on above: Performed By: #### C BC #### [facility] [address] [place] [address] Dr. Jordan Blackwell Glucose [Mass/Vol] 113 mg/dL Critically high 74-106 [facility] Comment on above: Performed By: #### C BC #### [facility] [address] [address] [address] Jordan Blackwell Potassium [Moles/Vol] 4.6 mmol/L Normal 3.5-5.1 [facility] Comment on above: Performed By: #### C BC #### [facility] [address] [address] [address] Jordan Blackwell Protein [Mass/Vol] 7.2 g/dL Normal 6.4-8.2 [facility] Comment on above: Performed By: #### C BC #### [facility] [address] [place] [address] Dr. Jordan Blackwell Sodium [Moles/Vol] 130 mmol/L Critically low 136-145 [facility] Comment on above: Performed By: #### C BC #### [facility] [address] [place] [address] Dr. Jordan Blackwell Urea nitrogen [Mass/Vol] 17.0 mg/dL Normal 7.0-18.0 [facility] Comment on above: Performed By: #### C BC #### [facility] [address] [place] [address] Dr. Jordan Blackwell Urea nitrogen/Creatinine [Mass ratio] 25.0 mg/mg Normal [facility] Comment on above: Performed By: #### C BC #### [facility] [address] [place] [address] Dr. Jordan Blackwell TIBC ONLY- NO FEon TIBC DIRECT 296.0 ug/dL Normal 250.0-450. 0 [facility] Comment on above: Performed By: #### U RCX #### [facility] [address] [place] [address] Dr. Jordan Blackwell TSHon 06-30-2022 TSH 2.703 uIU/mL Normal 0.358-3.74 0 [facility] Comment on above: Performed By: #### B MP #### [facility] [address] [place], [place] [address] Dr. Jordan Blackwell VITAMIN B12on 06-30-2022 Cobalamin (Vitamin B12) [Mass/Vol] 230.0 pg/mL Normal 193.0-986. 0 [facility] Comment on above: Performed By: #### U RCX #### [facility] [address] [place], [place] [address] Dr. Jordan Blackwell XR shoulder LT min 2V*on XR shoulder LT min 2V* Normal [facility] Ambulatory Visit Summaryon 0 06-15-2022 Ambulatory [...] deficiency anemia Lumbosacral stenosis Obesity Osteoporosis Normal [facility] General Surgery Office/Clini c Noteon 06-15-2022 [...] [id number] vax 03/28/2020 Recorded 2022-05-04: [id number] Normal [facility] Comment on above: Result Comment: Elec tronically Signed By: GRANT CAMPBELL, Zainab [place]\Date and Time Signed: 06/15/22 15:11 EST Reminderson 06-15-2022 Reminders - From: Ragini Hylton LPN To: N - Clinical; Sent: 06/15/2022 13:59:41 EST Show up: 05/09/2027 07:00:00 EST Subject: colonoscopy recall Due Date/Time: 06/07/2027 07:00:00 EST Reminder/Recall Patient is due for colonoscopy 06/07/2027 due to history of colonic polyp. Normal [facility] Pathology Noteon 06-13-2022 Pathology Note [id number]:127 Normal [facility] Outside Colonoscopyon 2022 Outside Colonoscopy [id number]:127 Normal [facility] POINT OF CARE GLUCOSEon Glucose [Mass/Vol] 152 mg/dL Critically high 74-106 [facility] Comment on above: Performed By: #### O SMO #### [facility] [address] [place] [address] Dr. Jordan Blackwell CBC AUTO DIFFon 06-01-2022 BASO # 0.1 103/ul Normal 0.0-0.1 [facility] Comment on above: Performed By: #### C BC #### [facility] [address] [address] [address] Jordan Blackwell Basophils/100 WBC (Bld) 0.7 % Normal 0.2-2.0 [facility] Comment on above: Performed By: #### C BC #### [facility] [address] [place] [address] Dr. Jordan Blackwell EO # 0.1 103/ul Normal 0.0-0.7 [facility] Comment on above: Performed By: #### C BC #### [facility] [address] [place] [address] Dr. Jordan Blackwell Eosinophils/100 WBC (Bld) 1.6 % Normal 0.9-7.0 [facility] Comment on above: Performed By: #### C BC #### [facility] [address] [place] [address] Dr. Jordan Blackwell Erythrocyte distribution width (RBC) [Ratio] 14.6 % Normal 11.0-15.0 [facility] Comment on above: Performed By: #### C BC #### [facility] [address] [place] [address] Dr. Jordan Blackwell Hematocrit (Bld) [Volume fraction] 34.8 % Critically low 36.0-48.0 [facility] Comment on above: Performed By: #### C BC #### [facility] [address] [place] [address] Dr. Jordan Blackwell Hemoglobin (Bld) [Mass/Vol] 10.9 g/dL Critically low 12.0-16.0 [facility] Comment on above: Performed By: #### C BC #### [facility] [address] [place] [address] Dr. Jodran Blackwell IG # 0.04 10e3/ul Critically high 0.00-0.03 [facility] Comment on above: Performed By: #### C BC #### [facility] [address] [place] [address] Dr. Jordan Blackwell IG % 0.5 % Normal 0.0-0.5 [facility] Comment on above: Performed By: #### C BC #### [facility] [address] [place] [address] Dr. Jordan Blackwell LYMPH # 2.6 103/ul Normal 1.2-3.8 [facility] Comment on above: Performed By: #### C BC #### [facility] [address] [place] [address] Dr. Jordan Blackwell Lymphocytes/100 WBC (Bld) 34.8 % Normal 20.5-60.0 [facility] Comment on above: Performed By: #### C BC #### [facility] [address] [place] [address] Dr. Jordan Blackwell MANUAL DIFF REQ NO Normal [facility] Comment on above: Performed By: #### C BC #### [facility] [address] [place] [address] Dr. Jordan Blackwell MCH (RBC) [Entitic mass] 28.7 pg Normal 26.7-34.0 [facility] Comment on above: Performed By: #### C BC #### [facility] [address] [place] [address] Dr. Jordan Blackwell MCHC (RBC) [Mass/Vol] 31.3 g/dL Normal 29.9-35.2 [facility] Comment on above: Performed By: #### C BC #### [facility] [address] [place] [address] Dr. Jordan Blackwell MCV (RBC) [Entitic vol] 91.6 fL Normal 81.0-99.0 [facility] Comment on above: Performed By: #### C BC #### [facility] [address] [place] [address] Dr. Jordan Blackwell MONO # 0.6 103/ul Normal 0.3-0.8 [facility] Comment on above: Performed By: #### C BC #### [facility] [address] [place] [address] Dr. Jordan Blackwell Monocytes/100 WBC (Bld) 7.9 % Normal 1.7-12.0 [facility] Comment on above: Performed By: #### C BC #### [facility] [address] [place] [address] Dr. Jordan Blackwell NEUT # 4.0 103/ul Normal 1.4-6.5 [facility] Comment on above: Performed By: #### C BC #### [facility] [address] [place] [address] Dr. Jordan Blackwell Neutrophils/100 WBC (Bld) 54.5 % Normal 43.0-75.0 [facility] Comment on above: Performed By: #### C BC #### [facility] [address] [place] [address] Dr. Jordan Blackwell Platelet mean volume (Bld) [Entitic vol] 10.4 fL Normal 9.5-13.5 [facility] Comment on above: Performed By: #### C BC #### [facility] [address] [place] [address] Dr. Jordan Blackwell PLT 252 103/ul Normal 150-450 [facility] Comment on above: Performed By: #### C BC #### [facility] [address] [place] [address] Dr. Jordan Blackwell RBC 3.80 106/ul Critically low 4.20-5.40 [facility] Comment on above: Performed By: #### C BC #### [facility] [address] [place] [address] Dr. Jordan Blackwell WBC 7.3 103/ul Normal 4.0-11.0 [facility] Comment on above: Performed By: #### C BC #### [facility] [address] [place] [address] Dr. Jordan Blackwell BNPon 05-17-2022 Natriuretic peptide B (Bld) [Mass/Vol] 544.0 pg/mL Normal <=900.0 [facility] Comment on above: Performed By: #### C BC #### [facility] [address] [place] [address] Dr. Jordan Blackwell IRONon 05-17-2022 Iron [Mass/Vol] 36.0 ug/dL Critically low 50.0-170.0 [facility] Comment on above: Performed By: #### B MP #### [facility] [address] [place] [address] Dr. Jordan Blackwell MAGNESIUMon 05-17-2022 Magnesium [Mass/Vol] 1.4 mg/dL Critically low 1.8-2.4 [facility] Comment on above: Performed By: #### C BC #### [facility] [address] [place] [address] Dr. Jordan Blackwell PROF 14(COMP METB)on 023 Albumin [Mass/Vol] 3.3 g/dL Critically low 3.4-5.0 [facility] Comment on above: Performed By: #### C BC #### [facility] [address] [place] [address] Dr. Jordan Blackwell Albumin/Globulin [Mass ratio] 0.9 {ratio} Normal [facility] Comment on above: Performed By: #### C BC #### [facility] [address] [place] [address] Dr. Jordan Blackwell ALP [Catalytic activity/Vol] 124 U/L Critically high 46-116 [facility] Comment on above: Performed By: #### C BC #### [facility] [address] [place] [address] Dr. Jordan Blackwell ALT [Catalytic activity/Vol] 23 U/L Normal 14-59 [facility] Comment on above: Performed By: #### C BC #### [facility] [address] [place] [address] Dr. Jordan Blackwell Anion gap [Moles/Vol] 12.2 mmol/L Normal [facility] Comment on above: Performed By: #### C BC #### [facility] [address] [place] [address] Dr. Jordan Blackwell AST [Catalytic activity/Vol] 23 U/L Normal 15-37 [facility] Comment on above: Performed By: #### C BC #### [facility] [address] [place] [address] Dr. Jordan Blackwell Bilirubin [Mass/Vol] 0.2 mg/dL Normal 0.2-1.0 [facility] Comment on above: Performed By: #### C BC #### [facility] [address] [place] [address] Dr. Jordan Blackwell Calcium [Mass/Vol] 9.2 mg/dL Normal 8.5-10.1 [facility] Comment on above: Performed By: #### C BC #### [facility] [address] [place] [address] Dr. Jordan Blackwell Chloride [Moles/Vol] 100 mmol/L Normal 98-107 [facility] Comment on above: Performed By: #### C BC #### [facility] [address] [place] [address] Dr. Jordan Blackwell CO2 [Moles/Vol] 28.3 mmol/L Normal 21.0-32.0 [facility] Comment on above: Performed By: #### C BC #### [facility] [address] [place] [address] Dr. Jordan Blackwell Creatinine [Mass/Vol] 0.76 mg/dL Normal 0.55-1.02 [facility] Comment on above: Performed By: #### C BC #### [facility] [address] [place] [address] Dr. Jordan Blackwell EGFR-AF SAMMARINESE >60 Normal >=60 [facility] Comment on above: Performed By: #### C BC #### [facility] [address] [place] [address] Dr. Jordan Blackwell EGFR-NON AF SAMMARINESE >60 Normal >=60 [facility] Comment on above: Performed By: #### C BC #### [facility] [address] [place] [address] Dr. Jordan Blackwell Globulin (S) [Mass/Vol] 3.6 g/dL Normal [facility] Comment on above: Performed By: #### C BC #### [facility] [address] [place] [address] Dr. Jordan Blackwell Glucose [Mass/Vol] 161 mg/dL Critically high 74-106 [facility] Comment on above: Performed By: #### C BC #### [facility] [address] [place] [address] Dr. Jordan Blackwell Potassium [Moles/Vol] 4.5 mmol/L Normal 3.5-5.1 [facility] Comment on above: Performed By: #### C BC #### [facility] [address] [place] [address] Dr. Jordan Blackwell Protein [Mass/Vol] 6.9 g/dL Normal 6.4-8.2 [facility] Comment on above: Performed By: #### C BC #### [facility] [address] [address] [address] Jordan Blackwell Sodium [Moles/Vol] 136 mmol/L Normal 136-145 [facility] Comment on above: Performed By: #### C BC #### [facility] [address] [address] [address] Jordan Blackwell Urea nitrogen [Mass/Vol] 10.0 mg/dL Normal 7.0-18.0 [facility] Comment on above: Performed By: #### C BC #### [facility] [address] [address] [address] Jordan Blackwell Urea nitrogen/Creatinine [Mass ratio] 13.2 mg/mg Normal [facility] Comment on above: Performed By: #### C BC #### [facility] [address] [address] [address] Jordan Blackwell Consent for Procedure/Surger yon 05-11-2022 Consent for Procedure/Surgery [id number]:127 Normal [facility] Facesheeton 05-10-2022 Facesheet [id number]:127 Normal [facility] RAD - CT Reporton 05-10-2022 RAD - CT Report [id number]:127 Normal [facility] XR shoulder LT min 2V*on XR shoulder LT min 2V* Normal [facility] Ambulatory Visit Summaryon 0 05-09-2022 Ambulatory [...] deficiency anemia Lumbosacral stenosis Obesity Osteoporosis Normal [facility] CBC AUTO DIFFon 05-02-2022 BASO # 0.1 103/ul Normal 0.0-0.1 [facility] Comment on above: Performed By: #### U RCX #### [facility] [address] [address] [address] Jordan Blackwell Basophils/100 WBC (Bld) 0.6 % Normal 0.2-2.0 [facility] Comment on above: Performed By: #### U RCX #### [facility] [address] [address] [address] Jordan Blackwell EO # 0.3 103/ul Normal 0.0-0.7 [facility] Comment on above: Performed By: #### U RCX #### [facility] [address] [address] [address] Jordan Blackwell Eosinophils/100 WBC (Bld) 3.3 % Normal 0.9-7.0 [facility] Comment on above: Performed By: #### U RCX #### [facility] [address] [address] [address] Jordan Blackwell Erythrocyte distribution width (RBC) [Ratio] 15.4 % Critically high 11.0-15.0 [facility] Comment on above: Performed By: #### U RCX #### [facility] [address] [address] [address] Jordan Blackwell Hematocrit (Bld) [Volume fraction] 27.6 % Critically low 36.0-48.0 [facility] Comment on above: Performed By: #### U RCX #### [facility] [address] [address] [address] Jordan Blackwell Hemoglobin (Bld) [Mass/Vol] 8.0 g/dL Critically low 12.0-16.0 [facility] Comment on above: Performed By: #### U RCX #### [facility] [address] [address] [address] Jordan Blackwell IG # 0.14 10e3/ul Critically high 0.00-0.03 [facility] Comment on above: Performed By: #### U RCX #### [facility] [address] [address] [address] Jordan Blackwell IG % 1.6 % Critically high 0.0-0.5 [facility] Comment on above: Performed By: #### U RCX #### [facility] [address] [address] [address] Jordan Blackwell LYMPH # 2.7 103/ul Normal 1.2-3.8 [facility] Comment on above: Performed By: #### U RCX #### [facility] [address] [place] [address] Dr. Jordan Blackwell Lymphocytes/100 WBC (Bld) 32.1 % Normal 20.5-60.0 [facility] Comment on above: Performed By: #### U RCX #### [facility] [address] [place] [address] Dr. Jordan Blackwell MANUAL DIFF REQ NO Normal [facility] Comment on above: Performed By: #### U RCX #### [facility] [address] [place] [address] Dr. Jordan Blackwell MCH (RBC) [Entitic mass] 29.4 pg Normal 26.7-34.0 [facility] Comment on above: Performed By: #### U RCX #### [facility] [address] [address] [address] Jordan Blackwell MCHC (RBC) [Mass/Vol] 29.0 g/dL Critically low 29.9-35.2 [facility] Comment on above: Performed By: #### U RCX #### [facility] [address] [place] [address] Dr. Jordan Blackwell MCV (RBC) [Entitic vol] 101.5 fL Critically high 81.0-99 .0 [facility] Comment on above: Performed By: #### U RCX #### [facility] [address] [address] [address] Jordan Blackwell MONO # 0.7 103/ul Normal 0.3-0.8 [facility] Comment on above: Performed By: #### U RCX #### [facility] [address] [address] [address] Jordan Blackwell Monocytes/100 WBC (Bld) 7.9 % Normal 1.7-12.0 [facility] Comment on above: Performed By: #### U RCX #### [facility] [address] [address] [address] Jordan Blackwell NEUT # 4.6 103/ul Normal 1.4-6.5 [facility] Comment on above: Performed By: #### U RCX #### [facility] [address] [place] [address] Dr. Jordan Blackwell Neutrophils/100 WBC (Bld) 54.5 % Normal 43.0-75.0 [facility] Comment on above: Performed By: #### U RCX #### [facility] [address] [place] [address] Dr. Jordan Blackwell Platelet mean volume (Bld) [Entitic vol] 10.3 fL Normal 9.5-13.5 [facility] Comment on above: Performed By: #### U RCX #### [facility] [address] [place] [address] Dr. Jordan Blackwell PLT 310 103/ul Normal 150-450 [facility] Comment on above: Performed By: #### U RCX #### [facility] [address] [address] [address] Jordan Blackwell RBC 2.72 106/ul Critically low 4.20-5.40 [facility] Comment on above: Performed By: #### U RCX #### [facility] [address] [address] [address] Jordan Blackwell WBC 8.5 103/ul Normal 4.0-11.0 [facility] Comment on above: Performed By: #### U RCX #### [facility] [address] [place] [address] Dr. Jordan Blackwell Lab Reportson 05-02-2022 Lab Reports [id number]:127 Normal [facility] Physician Referralon 023 Physician Referral [id number]:127 Normal [facility] CBC AUTO DIFFon 05-01-2022 BASO # 0.1 103/ul Normal 0.0-0.1 [facility] Comment on above: Performed By: #### C BC #### [facility] [address] [place] [address] Dr. Jordan Blackwell Basophils/100 WBC (Bld) 0.6 % Normal 0.2-2.0 [facility] Comment on above: Performed By: #### C BC #### [facility] [address] [place] [address] Dr. Jordan Blackwell EO # 0.3 103/ul Normal 0.0-0.7 [facility] Comment on above: Performed By: #### C BC #### [facility] [address] [place] [address] Dr. Jordan Blackwell Eosinophils/100 WBC (Bld) 3.3 % Normal 0.9-7.0 [facility] Comment on above: Performed By: #### C BC #### [facility] [address] [place] [address] Dr. Jordan Blackwell Erythrocyte distribution width (RBC) [Ratio] 15.3 % Critically high 11.0-15.0 [facility] Comment on above: Performed By: #### C BC #### [facility] [address] [place] [address] Dr. Jordan Blackwell Hematocrit (Bld) [Volume fraction] 26.1 % Critically low 36.0-48.0 [facility] Comment on above: Performed By: #### C BC #### [facility] [address] [place] [address] Dr. Jordan Blackwell Hemoglobin (Bld) [Mass/Vol] 8.0 g/dL Critically low 12.0-16.0 [facility] Comment on above: Performed By: #### C BC #### [facility] [address] [place] [address] Dr. Jordan Blackwell IG # 0.12 10e3/ul Critically high 0.00-0.03 [facility] Comment on above: Performed By: #### C BC #### [facility] [address] [place] [address] Dr. Jordan Blackwell IG % 1.3 % Critically high 0.0-0.5 [facility] Comment on above: Performed By: #### C BC #### [facility] [address] [place] [address] Dr. Jordan Blackwell LYMPH # 3.5 103/ul Normal 1.2-3.8 [facility] Comment on above: Performed By: #### C BC #### [facility] [address] [place] [address] Dr. Jordan Blackwell Lymphocytes/100 WBC (Bld) 38.9 % Normal 20.5-60.0 [facility] Comment on above: Performed By: #### C BC #### [facility] [address] [place] [address] Dr. Jordan Blackwell MANUAL DIFF REQ NO Normal [facility] Comment on above: Performed By: #### C BC #### [facility] [address] [place] [address] Dr. Jordan Blackwell MCH (RBC) [Entitic mass] 29.5 pg Normal 26.7-34.0 [facility] Comment on above: Performed By: #### C BC #### [facility] [address] [place] [address] Dr. Jordan Blackwell MCHC (RBC) [Mass/Vol] 30.7 g/dL Normal 29.9-35.2 [facility] Comment on above: Performed By: #### C BC #### [facility] [address] [place] [address] Dr. Jordan Blackwell MCV (RBC) [Entitic vol] 96.3 fL Normal 81.0-99.0 [facility] Comment on above: Performed By: #### C BC #### [facility] [address] [place] [address] Dr. Jordan Blackwell MONO # 0.7 103/ul Normal 0.3-0.8 [facility] Comment on above: Performed By: #### C BC #### [facility] [address] [place] [address] Dr. Jordan Blackwell Monocytes/100 WBC (Bld) 7.9 % Normal 1.7-12.0 [facility] Comment on above: Performed By: #### C BC #### [facility] [address] [place] [address] Dr. Jordan Blackwell NEUT # 4.3 103/ul Normal 1.4-6.5 [facility] Comment on above: Performed By: #### C BC #### [facility] [address] [place] [address] Dr. Jordan Blackwell Neutrophils/100 WBC (Bld) 48.0 % Normal 43.0-75.0 [facility] Comment on above: Performed By: #### C BC #### [facility] [address] [place] [address] Dr. Jordan Blackwell Platelet mean volume (Bld) [Entitic vol] 10.1 fL Normal 9.5-13.5 [facility] Comment on above: Performed By: #### C BC #### [facility] [address] [place] [address] Dr. Jordan Blackwell PLT 299 103/ul Normal 150-450 [facility] Comment on above: Performed By: #### C BC #### [facility] [address] [place] [address] Dr. Jordan Blackwell RBC 2.71 106/ul Critically low 4.20-5.40 [facility] Comment on above: Performed By: #### C BC #### [facility] [address] [place] [address] Dr. Jordan Blackwell WBC 9.0 103/ul Normal 4.0-11.0 [facility] Comment on above: Performed By: #### C BC #### [facility] [address] [place] [address] Dr. Jordan Blackwell CULTURE URINEon 05-01-2022 CULTURE URINE Culture Observations : LIGHT GROWTH OF MIXED GENITAL RUBÉN. NO POTENTIAL PATHOGENS SEEN. Normal [facility] Comment on above: Performed By: #### U RCX #### [facility] [address] [place] [address] Dr. Jordan Blackwell IRONon 05-01-2022 Iron [Mass/Vol] 30.0 ug/dL Critically low 50.0-170.0 [facility] Comment on above: Performed By: #### C BC #### [facility] [address] [place] [address] Dr. Jordan Blackwell MAGNESIUMon 05-01-2022 Magnesium [Mass/Vol] 1.2 mg/dL Critically low 1.8-2.4 [facility] Comment on above: Performed By: #### P RBC #### [facility] [address] [place] [address] Dr. Jordan Blackwell SODIUM RANDOM URINEon 2022 Sodium (U) [Moles/Vol] 55 mmol/L Normal 30-90 [facility] Comment on above: Performed By: #### C BC #### [facility] [address] [place] [address] Dr. Jordan Blackwell UA RANDOM W/MICROSCOPICon BACTERIA TRACE Abnormal NONE SEEN [facility] Comment on above: Performed By: #### B MP #### [facility] [address] [place] [address] Dr. Jordan Blackwell Bilirubin Ql (U) Negative Normal NEGATIVE [facility] Comment on above: Performed By: #### B MP #### [facility] [address] [place] [address] Dr. Jordan Blackwell CAST NONE SEEN Normal NONE SEEN [facility] Comment on above: Performed By: #### B MP #### [facility] [address] [place] [address] Dr. Jordan Blackwell Clarity (U) CLEAR Normal CLEAR [facility] Comment on above: Performed By: #### B MP #### [facility] [address] [place] [address] Dr. Jordan Blackwell Color (U) LT. YELLOW Normal YELLOW [facility] Comment on above: Performed By: #### B MP #### [facility] [address] [place] [address] Dr. Jordan Blackwell Crystals LM Nom (Urine sed) NONE SEEN Normal NONE SEEN [facility] Comment on above: Performed By: #### B MP #### [facility] [address] [place] [address] Dr. Jordan Blackwell Epithelial cells LM Ql (Urine sed) FEW Abnormal NONE SEEN /RARE [facility] Comment on above: Performed By: #### B MP #### [facility] [address] [place] [address] Dr. Jordan Blackwell Glucose Ql (U) Negative Normal NEGATIVE [facility] Comment on above: Performed By: #### B MP #### [facility] [address] [place] [address] Dr. Jordan Blackwell Hemoglobin Ql (U) Negative Normal NEGATIVE [facility] Comment on above: Performed By: #### B MP #### [facility] [address] [place] [address] Dr. Jordan Blackwell Ketones Ql (U) Negative Normal NEGATIVE [facility] Comment on above: Performed By: #### B MP #### [facility] [address] [place] [address] Dr. Jordan Blackwell LEUKOCYTES SMALL Abnormal NEGATIVE [facility] Comment on above: Performed By: #### B MP #### [facility] [address] [place] [address] Dr. Jordan Blackwell MUCOUS NONE SEEN Normal NONE SEEN [facility] Comment on above: Performed By: #### B MP #### [facility] [address] [place] [address] Dr. Jordan Blackwell Nitrite Ql (U) Negative Normal NEGATIVE [facility] Comment on above: Performed By: #### B MP #### [facility] [address] [place] [address] Dr. Jordan Blackwell pH (U) 6.0 [pH] Normal 5-9 [facility] Comment on above: Performed By: #### B MP #### [facility] [address] [place] [address] Dr. Jordan Blackwell RBC NONE SEEN Abnormal 0-2 [facility] Comment on above: Performed By: #### B MP #### [facility] [address] [place] [address] Dr. Jordan Blackwell SPEC GRAVITY <=1.005 Abnormal 1.005-<=1. 025 [facility] Comment on above: Performed By: #### B MP #### [facility] [address] [place] [address] Dr. Jordan Blackwell UA PROTEIN Negative Normal NEGATIVE/ TRACE [facility] Comment on above: Performed By: #### B MP #### [facility] [address] [place] [address] Dr. Jordan Blackwell Urobilinogen Qn (U) 0.2 {Claudia'U}/dL Normal 0.2 - 1. 0 [facility] Comment on above: Performed By: #### B MP #### [facility] [address] [place] [address] Dr. Jordan Blackwell WBC 2-5 Abnormal NONE SEEN [facility] Comment on above: Performed By: #### B MP #### [facility] [address] [place] [address] Dr. Jordan Blackwell CULTURE URINEon 04-27-2022 CULTURE URINE Culture Observations : LIGHT GROWTH OF MIXED GENITAL RUBÉN. NO POTENTIAL PATHOGENS SEEN. Normal [facility] Comment on above: Performed By: #### C BC #### [facility] [address] [place] [address] Dr. Jordan Blackwell UA RANDOM W/MICROSCOPICon BACTERIA NONE SEEN Normal NONE SEEN [facility] Comment on above: Performed By: #### U AMIC #### [facility] [address] [place] [address] Dr. Jordan Blackwell Bilirubin Ql (U) Negative Normal NEGATIVE [facility] Comment on above: Performed By: #### U AMIC #### [facility] [address] [address] [address] Jordan Blackwell CAST NONE SEEN Normal NONE SEEN [facility] Comment on above: Performed By: #### U AMIC #### [facility] [address] [address] [address] Jordan Blackwell Clarity (U) SL CLOUDY Abnormal CLEAR [facility] Comment on above: Performed By: #### U AMIC #### [facility] [address] [address] [address] Jordan Blackwell Color (U) LT. YELLOW Normal YELLOW [facility] Comment on above: Performed By: #### U AMIC #### [facility] [address] [place] [address] Dr. Jordan Blackwell Crystals LM Nom (Urine sed) NONE SEEN Normal NONE SEEN [facility] Comment on above: Performed By: #### U AMIC #### [facility] [address] [place] [address] Dr. Jordan Blackwell Epithelial cells LM Ql (Urine sed) FEW Abnormal NONE SEEN /RARE [facility] Comment on above: Performed By: #### U AMIC #### [facility] [address] [place] [address] Dr. Jordan Blackwell Glucose Ql (U) Negative Normal NEGATIVE [facility] Comment on above: Performed By: #### U AMIC #### [facility] [address] [place] [address] Dr. Jordan Blackwell Hemoglobin Ql (U) TRACE-INTACT Abnormal NEGATIVE [facility] Comment on above: Performed By: #### U AMIC #### [facility] [address] [place] [address] Dr. Jordan Blackwell Ketones Ql (U) Negative Normal NEGATIVE [facility] Comment on above: Performed By: #### U AMIC #### [facility] [address] [place] [address] Dr. Jordan Blackwell LEUKOCYTES TRACE Abnormal NEGATIVE [facility] Comment on above: Performed By: #### U AMIC #### [facility] [address] [place] [address] Dr. Jordan Blackwell MUCOUS NONE SEEN Normal NONE SEEN [facility] Comment on above: Performed By: #### U AMIC #### [facility] [address] [address] [address] Jordan Blackwell Nitrite Ql (U) Negative Normal NEGATIVE [facility] Comment on above: Performed By: #### U AMIC #### [facility] [address] [place] [address] Dr. Jordan Blackwell pH (U) 7.0 [pH] Normal 5-9 [facility] Comment on above: Performed By: #### U AMIC #### [facility] [address] [place] [address] Dr. Jordan Blackwell RBC 0-2 Normal 0-2 [facility] Comment on above: Performed By: #### U AMIC #### [facility] [address] [place] [address] Dr. Jordan Blackwell SPEC GRAVITY 1.015 Normal 1.005-<=1. 025 [facility] Comment on above: Performed By: #### U AMIC #### [facility] [address] [place] [address] Dr. Jordan Blackwell UA PROTEIN TRACE Normal NEGATIVE/ TRACE [facility] Comment on above: Performed By: #### U AMIC #### [facility] [address] [place] [address] Dr. Jordan Blackwell Urobilinogen Qn (U) 0.2 {Claudia'U}/dL Normal 0.2 - 1. 0 [facility] Comment on above: Performed By: #### U AMIC #### [facility] [address] [place] [address] Dr. Jordan Blackwell WBC 0-2 Abnormal NONE SEEN [facility] Comment on above: Performed By: #### U AMIC #### [facility] [address] [place] [address] Dr. Jordan Blackwell CBC AUTO DIFFon 04-26-2022 BASO # 0.0 103/ul Normal 0.0-0.1 [facility] Comment on above: Performed By: #### C BC #### [facility] [address] [place] [address] Dr. Jordan Blackwell Basophils/100 WBC (Bld) 0.3 % Normal 0.2-2.0 [facility] Comment on above: Performed By: #### C BC #### [facility] [address] [place] [address] Dr. Jordan Blackwell EO # 0.0 103/ul Normal 0.0-0.7 [facility] Comment on above: Performed By: #### C BC #### [facility] [address] [address] [address] Jordan Blackwell Eosinophils/100 WBC (Bld) 0.1 % Critically low 0.9-7.0 [facility] Comment on above: Performed By: #### C BC #### [facility] [address] [place] [address] Dr. Jordan Blackwell Erythrocyte distribution width (RBC) [Ratio] 14.1 % Normal 11.0-15.0 [facility] Comment on above: Performed By: #### C BC #### [facility] [address] [place] [address] Dr. Jordan Blackwell Hematocrit (Bld) [Volume fraction] 28.8 % Critically low 36.0-48.0 [facility] Comment on above: Performed By: #### C BC #### [facility] [address] [place] [address] Dr. Jordan Blackwell Hemoglobin (Bld) [Mass/Vol] 9.6 g/dL Critically low 12.0-16.0 [facility] Comment on above: Performed By: #### C BC #### [facility] [address] [place] [address] Dr. Jordan Blackwell IG # 0.06 10e3/ul Critically high 0.00-0.03 [facility] Comment on above: Performed By: #### C BC #### [facility] [address] [place] [address] Dr. Jodran Blackwell IG % 0.6 % Critically high 0.0-0.5 [facility] Comment on above: Performed By: #### C BC #### [facility] [address] [place] [address] Dr. Jordan Blackwell LYMPH # 3.4 103/ul Normal 1.2-3.8 [facility] Comment on above: Performed By: #### C BC #### [facility] [address] [place] [address] Dr. Jordan Blackwell Lymphocytes/100 WBC (Bld) 31.8 % Normal 20.5-60.0 [facility] Comment on above: Performed By: #### C BC #### [facility] [address] [place] [address] Dr. Jordan Blackwell MANUAL DIFF REQ NO Normal [facility] Comment on above: Performed By: #### C BC #### [facility] [address] [place] [address] Dr. Jordan Blackwell MCH (RBC) [Entitic mass] 30.1 pg Normal 26.7-34.0 [facility] Comment on above: Performed By: #### C BC #### [facility] [address] [place] [address] Dr. Jordan Blackwell MCHC (RBC) [Mass/Vol] 33.3 g/dL Normal 29.9-35.2 [facility] Comment on above: Performed By: #### C BC #### [facility] [address] [place] [address] Dr. Jordan Blackwell MCV (RBC) [Entitic vol] 90.3 fL Normal 81.0-99.0 [facility] Comment on above: Performed By: #### C BC #### [facility] [address] [place] [address] Dr. Jordan Blackwell MONO # 0.7 103/ul Normal 0.3-0.8 [facility] Comment on above: Performed By: #### C BC #### [facility] [address] [place] [address] Dr. Jordan lBackwell Monocytes/100 WBC (Bld) 6.7 % Normal 1.7-12.0 [facility] Comment on above: Performed By: #### C BC #### [facility] [address] [place] [address] Dr. Jordan Blackwell NEUT # 6.5 103/ul Normal 1.4-6.5 [facility] Comment on above: Performed By: #### C BC #### [facility] [address] [place] [address] Dr. Jordan Blackwell Neutrophils/100 WBC (Bld) 60.5 % Normal 43.0-75.0 [facility] Comment on above: Performed By: #### C BC #### [facility] [address] [place] [address] Dr. Jordan Blackwell Platelet mean volume (Bld) [Entitic vol] 10.2 fL Normal 9.5-13.5 [facility] Comment on above: Performed By: #### C BC #### [facility] [address] [place] [address] Dr. Jordan Blackwell PLT 270 103/ul Normal 150-450 [facility] Comment on above: Performed By: #### C BC #### [facility] [address] [place] [address] Dr. Jordan Blackwell RBC 3.19 106/ul Critically low 4.20-5.40 [facility] Comment on above: Performed By: #### C BC #### [facility] [address] [place] [address] Dr. Jordan Blackwell WBC 10.7 103/ul Normal 4.0-11.0 [facility] Comment on above: Performed By: #### C BC #### [facility] [address] [place] [address] Dr. Jordan Blackwell FREE THYROXINE INDEX T7on FTI 3.40 Normal 1.30-4.50 [facility] Comment on above: Performed By: #### U AMIC #### [facility] [address] [place] [address] Dr. Jordan Blackwell T3U 34.0 % Normal 30.0-39.0 [facility] Comment on above: Performed By: #### U AMIC #### [facility] [address] [place] [address] Dr. Jordan Blackwell T4 [Mass/Vol] 10.00 ug/dL Normal 4.80-13.90 [facility] Comment on above: Performed By: #### U AMIC #### [facility] [address] [address] [address] Jordan Blackwell GLYCOHEMOGLOBIN A1Con 2022 ADA RECOMMENDATION SEE BELOW Normal [facility] Comment on above: Result Comment: ADA RECOMMENDED LIMIT 4.0 - 6.0 ADA THERAPEUTIC TARGET < 7.0 ACTION SUGGESTED > 7.0 Performed By: #### B MP #### [facility] [address] [address] [address] Jordan Blackwell Glucose [Mass/Vol] 114 mg/dL Normal [facility] Comment on above: Performed By: #### B MP #### [facility] [address] [place] [address] Dr. Jordan Blackwell HbA1c (Bld) [Mass fraction] 5.6 % Normal 4.5-6.2 [facility] Comment on above: Performed By: #### B MP #### [facility] [address] [place] [address] Dr. Jordan Blackwell IRONon 04-26-2022 Iron [Mass/Vol] 40.0 ug/dL Critically low 50.0-170.0 [facility] Comment on above: Performed By: #### U AMIC #### [facility] [address] [place] [address] Dr. Jordan Blackwell LIPID PROFILEon 04-26-2022 CHOL-HDL RATIO NORM SEE BELOW Normal [facility] Comment on above: Result Comment: 3.3 - 4.4 LOW RISK 4.4 - 7.1 AVERAGE RISK 7.1 - 11.0 MODERATE RISK >11.0 HIGH RISK Performed By: #### U AMIC #### [facility] [address] [address] [address] Jordan Blackwell Cholesterol [Mass/Vol] 121 mg/dL Normal <=200 [facility] Comment on above: Performed By: #### U AMIC #### [facility] [address] [place] [address] Dr. Jordan Blackwell Cholesterol in HDL [Mass/Vol] 64 mg/dL Critically high 40-60 [facility] Comment on above: Performed By: #### U AMIC #### [facility] [address] [address] [address] Jordan Blackwell Cholesterol in LDL [Mass/Vol] 36.6 mg/dL Normal [facility] Comment on above: Performed By: #### U AMIC #### [facility] [address] [address] [address] Jordan Blackwell Cholesterol.total/Clau sterol in HDL [Mass ratio] 1.9 {ratio} Normal [facility] Comment on above: Performed By: #### U AMIC #### [facility] [address] [address] [address] Jordan Blackwell HDL NORMAL > or = 60 mg/dl - LO W CARDIOVASCULAR RISK <40 mg/dl - HIGH CARDIOVASCULAR RISK Normal [facility] Comment on above: Performed By: #### U AMIC #### [facility] [address] [address] [address] Jordan Blackwell LDL CALC NORMAL SEE BELOW Normal [facility] Comment on above: Result Comment: <100 mg/dl OPTIMAL 100 - 129 mg/dl NEAR OR ABOVE OPTIMAL 130 - 159 mg/dl BORDERLINE HIGH 160 - 189 mg/dl HIGH >190 mg/dl VERY HIGH Performed By: #### U AMIC #### [facility] [address] [address] [address] Jordan Blackwell Triglyceride [Mass/Vol] 102 mg/dL Normal <=150 [facility] Comment on above: Performed By: #### U AMIC #### [facility] [address] [address] [address] Jordan Blackwell VLDL CALC 20.4 mg/dL Normal [facility] Comment on above: Performed By: #### U AMIC #### [facility] [address] [address] [address] Jordan Blackwell MAGNESIUMon 04-26-2022 Magnesium [Mass/Vol] 0.9 mg/dL Critically low 1.8-2.4 [facility] Comment on above: Performed By: #### U AMIC #### [facility] [address] [address] [address] Jordan Blackwell PROF 14(COMP METB)on 023 Albumin [Mass/Vol] 3.4 g/dL Normal 3.4-5.0 [facility] Comment on above: Performed By: #### U AMIC #### [facility] [address] [address] [address] Jordan Blackwell Albumin/Globulin [Mass ratio] 0.9 {ratio} Normal [facility] Comment on above: Performed By: #### U AMIC #### [facility] [address] [address] [address] Jordan Blackwell ALP [Catalytic activity/Vol] 98 U/L Normal 46-116 [facility] Comment on above: Performed By: #### U AMIC #### [facility] [address] [address] [address] Jordan Blackwell ALT [Catalytic activity/Vol] 12 U/L Critically low 14-59 [facility] Comment on above: Performed By: #### U AMIC #### [facility] [address] [address] [address] Jordan Blackwell Anion gap [Moles/Vol] 15.5 mmol/L Normal [facility] Comment on above: Performed By: #### U AMIC #### [facility] [address] [place] [address] Dr. Jordan Blackwell AST [Catalytic activity/Vol] 15 U/L Normal 15-37 [facility] Comment on above: Performed By: #### U AMIC #### [facility] [address] [place] [address] Dr. Jordan Blackwell Bilirubin [Mass/Vol] 0.2 mg/dL Normal 0.2-1.0 [facility] Comment on above: Performed By: #### U AMIC #### [facility] [address] [address] [address] Jordan Blackwell Calcium [Mass/Vol] 9.4 mg/dL Normal 8.5-10.1 [facility] Comment on above: Performed By: #### U AMIC #### [facility] [address] [address] [address] Jordan Blackwell Chloride [Moles/Vol] 93 mmol/L Critically low 98-107 [facility] Comment on above: Performed By: #### U AMIC #### [facility] [address] [place] [address] Dr. Jordan Blackwell CO2 [Moles/Vol] 24.3 mmol/L Normal 21.0-32.0 [facility] Comment on above: Performed By: #### U AMIC #### [facility] [address] [place] [address] Dr. Jordan Blackwell Creatinine [Mass/Vol] 0.80 mg/dL Normal 0.55-1.02 [facility] Comment on above: Performed By: #### U AMIC #### [facility] [address] [place] [address] Dr. Jordan Blackwell EGFR-AF SAMMARINESE >60 Normal >=60 [facility] Comment on above: Performed By: #### U AMIC #### [facility] [address] [place] [address] Dr. Jordan Blackwell EGFR-NON AF SAMMARINESE >60 Normal >=60 [facility] Comment on above: Performed By: #### U AMIC #### [facility] [address] [place] [address] Dr. Jordan Blackwell Globulin (S) [Mass/Vol] 3.7 g/dL Normal [facility] Comment on above: Performed By: #### U AMIC #### [facility] [address] [place] [address] Dr. Jordan Blackwell Glucose [Mass/Vol] 210 mg/dL Critically high 74-106 [facility] Comment on above: Performed By: #### U AMIC #### [facility] [address] [place] [address] Dr. Jordan Blackwell Potassium [Moles/Vol] 3.8 mmol/L Normal 3.5-5.1 [facility] Comment on above: Performed By: #### U AMIC #### [facility] [address] [place] [address] Dr. Jordan Blackwell Protein [Mass/Vol] 7.1 g/dL Normal 6.4-8.2 [facility] Comment on above: Performed By: #### U AMIC #### [facility] [address] [address] [address] Jordan Blackwell Sodium [Moles/Vol] 129 mmol/L Critically low 136-145 [facility] Comment on above: Performed By: #### U AMIC #### [facility] [address] [address] [address] Jordan Blackwell Urea nitrogen [Mass/Vol] 17.0 mg/dL Normal 7.0-18.0 [facility] Comment on above: Performed By: #### U AMIC #### [facility] [address] [address] [address] Jordan Blackwell Urea nitrogen/Creatinine [Mass ratio] 21.2 mg/mg Normal [facility] Comment on above: Performed By: #### U AMIC #### [facility] [address] [place] [address] Dr. Jordan Blackwell TSHon 04-26-2022 TSH 2.870 uIU/mL Normal 0.358-3.74 0 [facility] Comment on above: Performed By: #### U AMIC #### [facility] [address] [place] [address] Dr. Jordan Blackwell PRBC LEUKOREDUCEDon 04-05-20 ABO and Rh group Nom (Bld) Cross Match Result Compatible Unit Blood Type O Pos Unit Number [id number] Status Information Transfused Product ID Red Blood Cells Product Code [id number] Cross Match Result Compatible Unit Blood Type O Pos Unit Number [id number] Status Information Transfused Product ID Red Blood Cells Product Code [id number] Normal [facility] Comment on above: Performed By: #### P RBC #### [facility] [address] [place] [address] Dr. Jordan Blackwell Basic Metabolic Panelon 03-09 Anion gap [Moles/Vol] 12.0 mmol/L Normal 6.0-15.0 [facility] Comment on above: Performed By: #### B MP ####[address] [place] [address] [facility] Calcium [Mass/Vol] 8.8 mg/dL Normal 8.2-10.2 [facility] Comment on above: Performed By: #### B MP ####[address] [address] [facility] Chloride [Moles/Vol] 99 mmol/L Normal 95-114 [facility] Comment on above: Performed By: #### B MP ####[address] [address] [facility] CO2 [Moles/Vol] 25.3 mmol/L Normal 22.0-30.0 [facility] Comment on above: Performed By: #### B MP ####[address] [address] [facility] Creatinine [Mass/Vol] 0.88 mg/dL Normal 0.44-1.03 [facility] Comment on above: Performed By: #### B MP ####[address] [address] [facility] Creatinine Clr Calc Pharmacy 75.08 [facility] Comment on above: Result Comment: PERF ORMED BY:[address] [place] [id number] MEDICAL ANDRE SINGER M.D. Performed By: #### B MP ####[address] [address] [facility] Estimated GFR ( Brenda > 60 [facility] Comment on above: Result Comment: GFR estimated reference range: According to KDOQI guidelines, <60 ml/min/1.73m2 is sufficient to diagnose a patient with chronic kidney disease. Performed By: #### B MP ####[address] [address] [facility] Estimated GFR (Non- Am > 60 [facility] Comment on above: Performed By: #### B MP ####[id number] [facility] Glucose [Mass/Vol] 145 mg/dL High 70-100 [facility] Comment on above: Result Comment: [place] om Glucose Reference Range is dependent on time and content of last meal. Glucose of more than 200 mg/dL in a nonstressed, ambulatory subject supports the diagnosis of Diabetes Mellitus. ADA recommended reference range Performed By: #### B MP ####[facility] [id number] [place] [address] [facility] Potassium [Moles/Vol] 4.3 mmol/L Normal 3.5-5.1 [facility] Comment on above: Performed By: #### B MP ####[facility] [id number] [place] [address] [facility] Sodium [Moles/Vol] 132 mmol/L Low 136-146 [facility] Comment on above: Performed By: #### B MP ####[facility] [id number] [place] [address] [facility] Urea nitrogen [Mass/Vol] 11 mg/dL Normal 9-23 [facility] Comment on above: Performed By: #### B MP ####[facility] [id number] [place] [address] [facility] [facility] Creatinine and Glomerular fi ltration rate.predicted panel (S/P/Bld)Ordered By: Ryan Ibrahim on 03-27-2022 Creatinine [Mass/Vol] 0.88 mg/dL 0.44-1.03 [facility] Estimated glomerular filtrat ion rate (GFR) non- AmericanOrdered By: Ryan Ibrahim on 03-27-2022 GFR/1.73 sq M.predicted among non-blacks MDRD (S/P/Bld) [Vol rate/Area] > 60 mL/Min [facility] Glucose Glucometer (BldC) [M ass/Vol]Ordered By: Ryan Ibrahim on 03-27-2022 Glucose [Mass/Vol] 162 mg/dL [facility] Comment on above: Random Glucose Refer ence Range is dependent on time and content of last meal. Glucose of more than 200 mg/dL in a nonstressed, ambulatory subject supports the diagnosis of Diabetes Mellitus. Glucose Poct Glucometerson 1 05-28-2021 Commemt1 Glu2: Cleaned Meter Normal [facility] Comment on above: Result Comment: PERF ORMED BY:[facility] [place], [place] [phone] MEDICAL DIRECTORKIMBERLYN SINGER M.D. Performed By: #### G LULS ####Point of Care testing, Glucose [Mass/Vol] 162 mg/dL Normal [facility] Comment on above: Result Comment: [place] Glucose Reference Range is dependent on time and content of last meal. Glucose of more than 200 mg/dL in a nonstressed, ambulatory subject supports the diagnosis of Diabetes Mellitus. Performed By: #### G LULS ####Point of Care testing, No Panel InformationOrdered By: Ryan Ibrahim on 03-27-2022 Bedside Glucose Comment Glu2: cleaned meter [facility] Estimated GFR () > 60 mL/Min [facility] Comment on above: GFR estimated refere nce range: According to KDOQI guidelines, <60 ml/min/1.73m2 is sufficient to diagnose a patient with chronic kidney disease. Pharmacy Creatinine Clearance (Chem 75.08 [facility] Serum or plasma anion gap de terminationOrdered By: Ryan Ibrahim on 03-27-2022 Anion gap [Moles/Vol] 12.0 mmol/L 6.0-15.0 [facility] Serum or plasma calcium john urement (mass/volume)Ordered By: Ryan Ibrahim on 03-27-2022 Calcium [Mass/Vol] 8.8 mg/dL 8.2-10.2 [facility] Serum or plasma chloride tressa surement (moles/volume)Ordered By: Ryan Ibrahim on 03-27-2022 Chloride [Moles/Vol] 99 mmol/L 95-114 [facility] Serum or plasma glucose john urement (mass/volume)Ordered By: Ryan Ibrahim on 03-27-2022 Glucose [Mass/Vol] 145 mg/dL 70-100 [facility] Comment on above: ADA recommended refe rence rangeRandom Glucose Reference Range is dependent on time and content of last meal. Glucose of more than 200 mg/dL in a nonstressed, ambulatory subject supports the diagnosis of Diabetes Mellitus. Serum or plasma potassium me asurement (moles/volume)Ordered By: Ryan Ibrahim on 03-27-2022 Potassium [Moles/Vol] 4.3 mmol/L 3.5-5.1 [facility] Serum or plasma sodium measu rement (moles/volume)Ordered By: Ryan Ibrahim on 03-27-2022 Sodium [Moles/Vol] 132 mmol/L 136-146 [facility] Serum or plasma total carbon dioxide measurement (moles/volume)Ordered By: Ryan Ibrahim on 03-27-2022 CO2 [Moles/Vol] 25.3 mmol/L 22.0-30.0 [facility] Serum or plasma urea nitroge n measurement (mass/volume)Ordered By: Ryan Ibrahim on 03-27-2022 Urea nitrogen [Mass/Vol] 11 mg/dL 9- [facility] Glucose Poct Glucometerson 1 05-27-2021 Commemt1 Glu2: Cleaned Meter [facility] Comment on above: Performed By: #### G LULS ####Point of Care testing, Commemt2 WILL NOTIFY DR/RN [facility] Comment on above: Result Comment: PERF ORMED BY:[place] [address] [place], [place] [phone] MEDICAL DIRECTORKIMBERLYN SINGER M.D. Performed By: #### G LULS ####Point of Care testing, Glucose [Mass/Vol] 165 mg/dL [facility] Comment on above: Result Comment: [facility] Glucose Reference Range is dependent on time and content of last meal. Glucose of more than 200 mg/dL in a nonstressed, ambulatory subject supports the diagnosis of Diabetes Mellitus. Performed By: #### G LULS ####Point of Care testing, Commemt1 Glu2: Cleaned Meter [facility] Comment on above: Result Comment: PERF ORMED BY:[place] [address] [place], [place] [phone] MEDICAL DIRECTORKIMBERLYN SINGER M.D. Performed By: #### G LULS ####Point of Care testing, Glucose [Mass/Vol] 147 mg/dL Normal [facility] Comment on above: Result Comment: [place] Glucose Reference Range is dependent on time and content of last meal. Glucose of more than 200 mg/dL in a nonstressed, ambulatory subject supports the diagnosis of Diabetes Mellitus. Performed By: #### G LULS ####Point of Care testing, Glucose [Mass/Vol] 157 mg/dL Normal [facility] Comment on above: Result Comment: [facility] Glucose Reference Range is dependent on time and content of last meal. Glucose of more than 200 mg/dL in a nonstressed, ambulatory subject supports the diagnosis of Diabetes Mellitus.PERFORMED BY:[address], [place] [phone] MEDICAL DIRECTORKIMBERLYN SINGER M.D. Performed By: #### G LULS ####Point of Care testing, Commemt1 Glu2: Cleaned Meter Normal [facility] Comment on above: Result Comment: PERF ORMED BY:[address] [place], [place] [phone] MEDICAL DIRECTORKIMBERLYN SINGER M.D. Performed By: #### G LULS ####Point of Care testing, Glucose [Mass/Vol] 232 mg/dL Normal [facility] Comment on above: Result Comment: [facility] Glucose Reference Range is dependent on time and content of last meal. Glucose of more than 200 mg/dL in a nonstressed, ambulatory subject supports the diagnosis of Diabetes Mellitus. Performed By: #### G LULS ####Point of Care testing, No Panel InformationOrdered By: Ryan Ibrahim on 03-26-2022 Bedside Glucose #[address]/christie [facility] XR shoulder LT min 2V*on XR shoulder LT min 2V* Normal [facility] Glucose Poct Glucometerson 1 05-26-2021 Glucose [Mass/Vol] 225 mg/dL Normal [facility] Comment on above: Result Comment: [facility] Glucose Reference Range is dependent on time and content of last meal. Glucose of more than 200 mg/dL in a nonstressed, ambulatory subject supports the diagnosis of Diabetes Mellitus.PERFORMED BY:[place] [address] [place], [place] [phone] MEDICAL DIRECTORKIMBERLYN SINGER M.D. Performed By: #### G LULS ####Point of Care testing, Commemt1 Glu2: Cleaned Meter [facility] Comment on above: Performed By: #### G LULS ####Point of Care testing, Commemt2 WILL NOTIFY DR/RN [facility] Comment on above: Result Comment: PERF ORMED BY:[place] [address] [place], [place] [phone] MEDICAL DIRECTORKIMBERLYN SINGER M.D. Performed By: #### G LULS ####Point of Care testing, Glucose [Mass/Vol] 152 mg/dL Normal [facility] Comment on above: Result Comment: [place] Glucose Reference Range is dependent on time and content of last meal. Glucose of more than 200 mg/dL in a nonstressed, ambulatory subject supports the diagnosis of Diabetes Mellitus. Performed By: #### G LULS ####Point of Care testing, Commemt1 Glu2: Cleaned Meter [facility] Comment on above: Result Comment: PERF ORMED BY:[place] [address] [place], [place] [phone] MEDICAL DIRECTORKIMBERLYN SINGER M.D. Performed By: #### G LULS ####Point of Care testing, Glucose [Mass/Vol] 266 mg/dL Normal [facility] Comment on above: Result Comment: [place] Glucose Reference Range is dependent on time and content of last meal. Glucose of more than 200 mg/dL in a nonstressed, ambulatory subject supports the diagnosis of Diabetes Mellitus. Performed By: #### G LULS ####Point of Care testing, Commemt1 Glu2: Cleaned Meter [facility] Comment on above: Result Comment: PERF ORMED BY:[place] [address] [place], [place] [phone] MEDICAL DIRECTORKIMBERLYN SINGER M.D. Performed By: #### G LULS ####Point of Care testing, Glucose [Mass/Vol] 174 mg/dL Normal [facility] Comment on above: Result Comment: [place] Glucose Reference Range is dependent on time and content of last meal. Glucose of more than 200 mg/dL in a nonstressed, ambulatory subject supports the diagnosis of Diabetes Mellitus. Performed By: #### G LULS ####Point of Care testing, Glucose Poct Glucometerson 1 05-25-2021 Glucose [Mass/Vol] 170 mg/dL Normal [facility] Comment on above: Result Comment: [place] [facility] Glucose Reference Range is dependent on time and content of last meal. Glucose of more than 200 mg/dL in a nonstressed, ambulatory subject supports the diagnosis of Diabetes Mellitus.PERFORMED BY:[address], [place] [phone] MEDICAL DIRECTORKIMBERLYN SINGER M.D. Performed By: #### G LULS ####Point of Care testing, Commemt1 Glu2: Cleaned Meter [facility] Comment on above: Result Comment: PERF ORMED BY:[place] [address] [place], [place] [phone] MEDICAL ANDRE SINGER M.D. Performed By: #### G LULS ####Point of Care testing, Glucose [Mass/Vol] 182 mg/dL Normal [facility] Comment on above: Result Comment: [place] [facility] Glucose Reference Range is dependent on time and content of last meal. Glucose of more than 200 mg/dL in a nonstressed, ambulatory subject supports the diagnosis of Diabetes Mellitus. Performed By: #### G LULS ####Point of Care testing, Commemt1 Glu2: Cleaned Meter [facility] Comment on above: Result Comment: PERF ORMED BY:[address], [place] [phone] MEDICAL ANDRE SINGER M.D. Performed By: #### G LULS ####Point of Care testing, Glucose [Mass/Vol] 132 mg/dL Normal [facility] Comment on above: Result Comment: [place] [facility] Glucose Reference Range is dependent on time and content of last meal. Glucose of more than 200 mg/dL in a nonstressed, ambulatory subject supports the diagnosis of Diabetes Mellitus. Performed By: #### G LULS ####Point of Care testing, Glucose [Mass/Vol] 208 mg/dL Normal [facility] Comment on above: Result Comment: [place] [facility] Glucose Reference Range is dependent on time and content of last meal. Glucose of more than 200 mg/dL in a nonstressed, ambulatory subject supports the diagnosis of Diabetes Mellitus.PERFORMED BY:[place] [address] [place], [place] [phone] MEDICAL DIRECTORKIMBERLYN SINGER M.D. Performed By: #### G LULS ####Point of Care testing, Glucose Poct Glucometerson 1 05-24-2021 Commemt1 Glu2: Cleaned Meter Normal [facility] Comment on above: Result Comment: PERF ORMED BY:[place] [address] [place], [place] [phone] MEDICAL DIRECTORKIMBERLYN SINGER M.D. Performed By: #### G LULS ####Point of Care testing, Glucose [Mass/Vol] 192 mg/dL Normal [facility] Comment on above: Result Comment: [place] [facility] Glucose Reference Range is dependent on time and content of last meal. Glucose of more than 200 mg/dL in a nonstressed, ambulatory subject supports the diagnosis of Diabetes Mellitus. Performed By: #### G LULS ####Point of Care testing, Glucose [Mass/Vol] 136 mg/dL Normal [facility] Comment on above: Result Comment: [place] Glucose Reference Range is dependent on time and content of last meal. Glucose of more than 200 mg/dL in a nonstressed, ambulatory subject supports the diagnosis of Diabetes Mellitus.PERFORMED BY:[place] [address] [place], [place] [phone] MEDICAL DIRECTORKIMBERLYN SINGER M.D. Performed By: #### G LULS ####Point of Care testing, Glucose [Mass/Vol] 202 mg/dL Normal [facility] Comment on above: Result Comment: [place] Glucose Reference Range is dependent on time and content of last meal. Glucose of more than 200 mg/dL in a nonstressed, ambulatory subject supports the diagnosis of Diabetes Mellitus.PERFORMED BY:[place] [address] [place], [place] [phone] MEDICAL DIRECTORKIMBERLYN SINGER M.D. Performed By: #### G LULS ####Point of Care testing, Glucose [Mass/Vol] 180 mg/dL Normal [facility] Comment on above: Result Comment: [facility] Glucose Reference Range is dependent on time and content of last meal. Glucose of more than 200 mg/dL in a nonstressed, ambulatory subject supports the diagnosis of Diabetes Mellitus.PERFORMED BY:[place] [address] [place], [place] [phone] MEDICAL DIRECTORKIMBERLYN SINGER M.D. Performed By: #### G LULS ####Point of Care testing, Bacterial blood cultureOrder ed By: Tammy Smyth on 03-22-2022 Bacteria identified Cx Nom (Bld) Diptheroids [facility] Bacteria identified Cx Nom (Bld) Bacillus sp not B. anthracis [facility] Glucose Poct Glucometerson 1 05-23-2021 Glucose [Mass/Vol] 142 mg/dL Normal [facility] Comment on above: Result Comment: [place] Glucose Reference Range is dependent on time and content of last meal. Glucose of more than 200 mg/dL in a nonstressed, ambulatory subject supports the diagnosis of Diabetes Mellitus.PERFORMED BY:[place] [address] [place], [place] [phone] MEDICAL DIRECTORKIMBERLYN SINGER M.D. Performed By: #### G LULS ####Point of Care testing, Commemt1 Glu2: Cleaned Meter Normal [facility] Comment on above: Result Comment: PERF ORMED BY:[facility], [place] [phone] MEDICAL DIRECTORKIMBERLYN SINGER M.D. Performed By: #### G LULS ####Point of Care testing, Glucose [Mass/Vol] 185 mg/dL Normal [facility] Comment on above: Result Comment: [place] [facility] Glucose Reference Range is dependent on time and content of last meal. Glucose of more than 200 mg/dL in a nonstressed, ambulatory subject supports the diagnosis of Diabetes Mellitus. Performed By: #### G LULS ####Point of Care testing, Commemt1 Glu2: Cleaned Meter Normal [facility] Comment on above: Result Comment: PERF ORMED BY:[place] [address] [place], [place] [phone] MEDICAL ANDRE SINGER M.D. Performed By: #### G LULS ####Point of Care testing, Glucose [Mass/Vol] 206 mg/dL [facility] Comment on above: Result Comment: [place] Glucose Reference Range is dependent on time and content of last meal. Glucose of more than 200 mg/dL in a nonstressed, ambulatory subject supports the diagnosis of Diabetes Mellitus. Performed By: #### G LULS ####Point of Care testing, Glucose [Mass/Vol] 247 mg/dL [facility] Comment on above: Result Comment: [place] Glucose Reference Range is dependent on time and content of last meal. Glucose of more than 200 mg/dL in a nonstressed, ambulatory subject supports the diagnosis of Diabetes Mellitus.PERFORMED BY:[place] [address], [place] [phone] MEDICAL DIRECTORKIMBERLYN SINGER M.D. Performed By: #### G LULS ####Point of Care testing, Basic Metabolic Panel - Anion gap [Moles/Vol] 12.4 mmol/L Normal 6.0-15.0 [facility] Comment on above: Performed By: #### B MP ####[address] [address] [facility] Calcium [Mass/Vol] 8.6 mg/dL Normal 8.2-10.2 [facility] Comment on above: Performed By: #### B MP ####[place] [id number] [facility] Chloride [Moles/Vol] 96 mmol/L Normal 95-114 [facility] Comment on above: Performed By: #### B MP ####[place] [id number] [facility] CO2 [Moles/Vol] 27.7 mmol/L Normal 22.0-30.0 [facility] Comment on above: Performed By: #### B MP ####[place] [id number] [facility] Creatinine [Mass/Vol] 0.80 mg/dL Normal 0.44-1.03 [facility] Comment on above: Performed By: #### B MP ####[place] [id number] [facility] Creatinine Clr Calc Pharmacy 81.46 [facility] Comment on above: Result Comment: PERF ORMED BY:[address] [place], [place] [phone] MEDICAL DIRECTORKIMBERLYN SINGER M.D. Performed By: #### B MP ####[address] [address] [facility] Estimated GFR ( Brenda > 60 [facility] Comment on above: Result Comment: GFR estimated reference range: According to KDOQI guidelines, <60 ml/min/1.73m2 is sufficient to diagnose a patient with chronic kidney disease. Performed By: #### B MP ####[place] [id number] [facility] Estimated GFR (Non- Am > 60 [facility] Comment on above: Performed By: #### B MP ####[place] [id number] [facility] Glucose [Mass/Vol] 192 mg/dL High 70-100 [facility] Comment on above: Result Comment: [facility] Glucose Reference Range is dependent on time and content of last meal. Glucose of more than 200 mg/dL in a nonstressed, ambulatory subject supports the diagnosis of Diabetes Mellitus. ADA recommended reference range Performed By: #### B MP ####[facility] [place] [address] [facility] Potassium [Moles/Vol] 4.1 mmol/L Normal 3.5-5.1 [facility] Comment on above: Performed By: #### B MP ####[facility] [place] [address] [facility] Sodium [Moles/Vol] 132 mmol/L Low 136-146 [facility] Comment on above: Performed By: #### B MP ####[facility] [place] [address] [facility] Urea nitrogen [Mass/Vol] 13 mg/dL Normal 9-23 [facility] Comment on above: Performed By: #### B MP ####[place] [address] [place] [address] [facility] Glucose Poct Glucometerson 1 05-22-2021 Glucose [Mass/Vol] 147 mg/dL Normal [facility] Comment on above: Result Comment: [facility] Glucose Reference Range is dependent on time and content of last meal. Glucose of more than 200 mg/dL in a nonstressed, ambulatory subject supports the diagnosis of Diabetes Mellitus.PERFORMED BY:[place] [address] [place], [place] [phone] MEDICAL ANDRE SINGER M.D. Performed By: #### G CHUCK ####Point of Care testing, Glucose [Mass/Vol] 150 mg/dL Normal [facility] Comment on above: Result Comment: [facility] Glucose Reference Range is dependent on time and content of last meal. Glucose of more than 200 mg/dL in a nonstressed, ambulatory subject supports the diagnosis of Diabetes Mellitus.PERFORMED BY:[place] [address] [place] [phone] MEDICAL ANDRE SINGER M.D. Performed By: #### G LULS ####Point of Care testing, Commemt1 Glu2: Cleaned Meter Normal [facility] Comment on above: Result Comment: PERF ORMED BY:[place] [address] [place], [place] [phone] MEDICAL DIRECTORKIMBERLYN SINGER M.D. Performed By: #### G LULS ####Point of Care testing, Glucose [Mass/Vol] 250 mg/dL Normal [facility] Comment on above: Result Comment: [place] [facility] Glucose Reference Range is dependent on time and content of last meal. Glucose of more than 200 mg/dL in a nonstressed, ambulatory subject supports the diagnosis of Diabetes Mellitus. Performed By: #### G LULS ####Point of Care testing, Glucose [Mass/Vol] 213 mg/dL Normal [facility] Comment on above: Result Comment: [place] om Glucose Reference Range is dependent on time and content of last meal. Glucose of more than 200 mg/dL in a nonstressed, ambulatory subject supports the diagnosis of Diabetes Mellitus.PERFORMED BY:[place] [address] [place], [place] [phone] MEDICAL DIRECTORKIMBERLYN SINGER M.D. Performed By: #### G LULS ####Point of Care testing, Urinalysison 03-21-2022 Appearance (U) Clear Normal Clear [facility] Comment on above: Order Comment: Name Collection Type:: Clean-Voided Midstream Performed By: #### U A ####[place] [id number] [facility] Bilirubin,Urine Negative Normal Negative [facility] Comment on above: Order Comment: Name Collection Type:: Clean-Voided Midstream Performed By: #### U A ####[address] [address] [facility] Color (U) Yellow Normal Yellow [facility] Comment on above: Order Comment: Name Collection Type:: Clean-Voided Midstream Performed By: #### U A ####[place] [id number] [facility] Glucose Ql (U) Normal Normal Normal [facility] Comment on above: Order Comment: Name Collection Type:: Clean-Voided Midstream Performed By: #### U A ####[address] [address] [facility] Ketones Ql (U) Negative Normal Negative [facility] Comment on above: Order Comment: Name Collection Type:: Clean-Voided Midstream Performed By: #### U A ####[address] [address] [facility] Leukocyte esterase Test strip Ql (U) Negative Normal Negative [facility] Comment on above: Order Comment: Name Collection Type:: Clean-Voided Midstream Performed By: #### U A ####[address] [address] [facility] Nitrite,Urine Negative Normal Negative [facility] Comment on above: Order Comment: Name Collection Type:: Clean-Voided Midstream Performed By: #### U A ####[address] [address] [facility] Occult Blood,Urine Negative Normal Negative [facility] Comment on above: Order Comment: Name Collection Type:: Clean-Voided Midstream Result Comment: PERF ORMED BY:[address] [place]ILYNHaroonTeeteeBR[place], [place] [phone] MEDICAL ANDRE SINGER M.D. Performed By: #### U A ####[address] [address] [facility] pH (U) 7.0 [pH] Normal 5.0-9.0 [facility] Comment on above: Order Comment: Name Collection Type:: Clean-Voided Midstream Performed By: #### U A ####[address] [address] [facility] Protein,Urine Negative Normal Negative [facility] Comment on above: Order Comment: Name Collection Type:: Clean-Voided Midstream Performed By: #### U A ####[address] [address] [facility] Specificy [place],Urine 1.005 Normal 1.00 1-1.03 0 [facility] Comment on above: Order Comment: Name Collection Type:: Clean-Voided Midstream Performed By: #### U A ####[facility] [address] [place] [address] [facility] Urobilinogen,Urine Normal Normal Normal [facility] Comment on above: Order Comment: Name Collection Type:: Clean-Voided Midstream Performed By: #### U A ####[facility] [id number] [place] [address] [facility] Albumin [Mass/volume] in Ser um or PlasmaOrdered By: Ronel Haney on 03-20-2022 Albumin [Mass/Vol] 2.8 g/dL 3.2-5.5 [facility] Anisocytosis LM Ql (Bld)Orde red By: Ronel Haney on 03-20-2022 Anisocytosis Ql (Bld) Slight [facility] Band form neutrophils/100 WB C Manual cnt (Bld)Ordered By: Ronel Haney on 03-20-2022 Band form neutrophils/100 WBC (Bld) 2 % 0-5 [facility] Basophils Auto (Bld) [#/Vol] Ordered By: Ronel Haney on 03-20-2022 Basophils (Bld) [#/Vol] N/A F [facility] Basophils/100 WBC Auto (Bld) Ordered By: Ronel Haney on 03-20-2022 Basophils/100 WBC (Bld) N/A F [facility] Bilirubin Test strip Ql (U)O rdered By: Ryan Ibrahim on 03-20-2022 Bilirubin Ql (U) Negative Negative [facility] Blood toxic granulation dete ction by light microscopyOrdered By: Ronel Haney on 03-20-2022 Toxic granules LM Ql (Bld) Slight [facility] Color Auto (U)Ordered By: Gabriela Ibrahim on 03-20-2022 Color (U) Yellow Yellow [facility] Comprehensive Metabolic Pane jeremy 03-20-2022 Albumin [Mass/Vol] 2.8 g/dL Low 3.2-5.5 [facility] Comment on above: Performed By: #### C MP, DIFF CBC, PAB ####[facility] [id number] [place] [address] [facility] Albumin/Globulin [Mass ratio] 0.8 {ratio} Normal [facility] Comment on above: Performed By: #### C MP, DIFF CBC, PAB ####[facility] [id number] [place] [address] [facility] ALP [Catalytic activity/Vol] 129 U/L High 32-92 [facility] Comment on above: Performed By: #### C MP, DIFF CBC, PAB ####[facility] [address] [place] [address] [facility] ALT [Catalytic activity/Vol] 14 U/L Normal 10-60 [facility] Comment on above: Performed By: #### C MP, DIFF CBC, PAB ####[facility] [id number] [place] [address] [facility] Anion gap [Moles/Vol] 12.9 mmol/L Normal 6.0-15.0 [facility] Comment on above: Performed By: #### C MP, DIFF CBC, PAB ####[facility] [id number] [place] [address] [facility] AST [Catalytic activity/Vol] 17 U/L Normal 10-42 [facility] Comment on above: Performed By: #### C MP, DIFF CBC, PAB ####[facility] [id number] [place] [address] [facility] Bilirubin [Mass/Vol] 0.6 mg/dL Normal 0.3-1.2 [facility] Comment on above: Performed By: #### C MP, DIFF CBC, PAB ####[facility] [id number] [place] [address] [place] Calcium [Mass/Vol] 8.3 mg/dL Normal 8.2-10.2 [facility] Comment on above: Performed By: #### C MP, DIFF CBC, PAB ####[facility] [address] [place] [address] [place] Chloride [Moles/Vol] 94 mmol/L Low 95-114 [facility] Comment on above: Performed By: #### C MP, DIFF CBC, PAB ####[place] [place] [address] [place] [id number] [facility] CO2 [Moles/Vol] 26.0 mmol/L Normal 22.0-30.0 [facility] Comment on above: Performed By: #### C MP, DIFF CBC, PAB ####[address] Creatinine [Mass/Vol] 0.90 mg/dL Normal 0.44-1.03 [facility] Comment on above: Performed By: #### C MP, DIFF CBC, PAB ####[address] Creatinine Clr Calc Pharmacy 72.41 [facility] Comment on above: Performed By: #### C MP, DIFF CBC, PAB ####[address] Estimated GFR ( Brenda > 60 [facility] Comment on above: Result Comment: GFR estimated reference range: According to KDOQI guidelines, <60 ml/min/1.73m2 is sufficient to diagnose a patient with chronic kidney disease. Performed By: #### C MP, DIFF CBC, PAB ####[address] Estimated GFR (Non- Am > 60 [facility] Comment on above: Performed By: #### C MP, DIFF CBC, PAB ####[place] [id number] [facility] Globulin (S) [Mass/Vol] 3.3 g/dL Normal [facility] Comment on above: Performed By: #### C MP, DIFF CBC, PAB ####[place] [id number] [facility] Glucose [Mass/Vol] 229 mg/dL High 70-100 [facility] Comment on above: Result Comment: [place] Glucose Reference Range is dependent on time and content of last meal. Glucose of more than 200 mg/dL in a nonstressed, ambulatory subject supports the diagnosis of Diabetes Mellitus. ADA recommended reference range Performed By: #### C MP, DIFF CBC, PAB ####[place] [id number] [facility] Potassium [Moles/Vol] 3.9 mmol/L Normal 3.5-5.1 [facility] Comment on above: Performed By: #### C MP, DIFF CBC, PAB ####[place] [id number] [facility] Protein [Mass/Vol] 6.1 g/dL Normal 6.1-7.9 [facility] Comment on above: Performed By: #### C MP, DIFF CBC, PAB ####[place] [id number] [facility] Sodium [Moles/Vol] 129 mmol/L Low 136-146 [facility] Comment on above: Performed By: #### C MP, DIFF CBC, PAB ####[place] [id number] [facility] Urea nitrogen [Mass/Vol] 12 mg/dL Normal 9- [facility] Comment on above: Performed By: #### C MP, DIFF CBC, PAB ####[place] [id number] [facility] Diff and CBCon 03-20-2022 Anisocytosis Ql (Bld) Slight Normal [facility] Comment on above: Performed By: #### C MP, DIFF CBC, PAB ####[place] [id number] [facility] Band form neutrophils/100 WBC (Bld) 2 % Normal 0-5 [facility] Comment on above: Performed By: #### C MP, DIFF CBC, PAB ####[place] [id number] [facility] Eosinophils/100 WBC (Bld) 1 % Normal 1-3 [facility] Comment on above: Performed By: #### C MP, DIFF CBC, PAB ####[place] [id number] [facility] Erythrocyte distribution width (RBC) [Ratio] 15.9 % High 11.9-15.3 [facility] Comment on above: Performed By: #### C MP, DIFF CBC, PAB ####[address] Giant Platelet Tally 3 /100{WBC} Normal [facility] Comment on above: Performed By: #### C MP, DIFF CBC, PAB ####[address] Hematocrit (Bld) [Volume fraction] 28.2 % Low 34.0-46.4 [facility] Comment on above: Performed By: #### C MP, DIFF CBC, PAB ####[address] Hemoglobin (Bld) [Mass/Vol] 9.4 g/dL Low 11.8-15.4 [facility] Comment on above: Performed By: #### C MP, DIFF CBC, PAB ####[address] Lymphocytes/100 WBC (Bld) 18 % Normal 18-42 [facility] Comment on above: Performed By: #### C MP, DIFF CBC, PAB ####[address] MCH (RBC) [Entitic mass] 30.6 pg Normal 24.7-34.3 [facility] Comment on above: Performed By: #### C MP, DIFF CBC, PAB ####[address] MCV (RBC) [Entitic vol] 91.5 fL Normal 80-100 [facility] Comment on above: Performed By: #### C MP, DIFF CBC, PAB ####[address] Mean Corpuscular HGB Conc 33.5 g/dL Normal 32.0-35.0 [facility] Comment on above: Performed By: #### C MP, DIFF CBC, PAB ####[address] Metamyelocytes 2 % High 0-0 [facility] Comment on above: Performed By: #### C MP, DIFF CBC, PAB ####[address] [address] [facility] Microcytosis Slight Normal [facility] Comment on above: Performed By: #### C MP, DIFF CBC, PAB ####[address] [address] [facility] Monocytes/100 WBC (Bld) 6 % Normal 2-11 [facility] Comment on above: Performed By: #### C MP, DIFF CBC, PAB ####[address] [address] [facility] Myelocytes 3 % High 0-0 [facility] Comment on above: Performed By: #### C MP, DIFF CBC, PAB ####[address] [address] [facility] Platelet Estimate Normal Normal Normal [facility] Comment on above: Performed By: #### C MP, DIFF CBC, PAB ####[address] [address] [facility] Platelet mean volume (Bld) [Entitic vol] 8.3 fL Normal 6.3-10.7 [facility] Comment on above: Result Comment: PERF ORMED BY:[address] [place], [place] [phone] MEDICAL DIRECTORKIMBERLYN SINGER M.D. Performed By: #### C MP, DIFF CBC, PAB ####[address] [address] [facility] Platelet Morphology Normal Normal Normal [facility] Comment on above: Result Comment: PERF ORMED BY:[address] [place]oonTeeteeR[place], [place] [phone] MEDICAL DIRECTORKIMBERLYN SINGER M.D. Performed By: #### C MP, DIFF CBC, PAB ####[address] [address] [place] Platelets (Bld) [#/Vol] 294 10*3/uL Normal 150-450 [facility] Comment on above: Performed By: #### C MP, DIFF CBC, PAB ####[facility] [address] [place] [address] Polychromasia Slight Normal [facility] Comment on above: Performed By: #### C MP, DIFF CBC, PAB ####[address] RBC (Bld) [#/Vol] 3.08 10*6/uL Low 3.60-5.[address] [facility] Comment on above: Performed By: #### C MP, DIFF CBC, PAB ####[address] Segmented neutrophils/100 WBC (Bld) 68 % Normal 50-70 [facility] Comment on above: Performed By: #### C MP, DIFF CBC, PAB ####[address] Toxic Granulation Slight Normal [facility] Comment on above: Performed By: #### C MP, DIFF CBC, PAB ####[address] WBC (Bld) [#/Vol] 8.0 10*3/uL Normal 3.8-11.6 [facility] Comment on above: Performed By: #### C MP, DIFF CBC, PAB ####[address] ECG 12 lead ECGon 03-20-2022 ECG 12 lead ECG Normal [facility] Eosinophils Auto (Bld) [#/Vo l]Ordered By: Ronel Haney on 03-20-2022 Eosinophils (Bld) [#/Vol] N/A [facility] Eosinophils/100 WBC Auto (Bl d)Ordered By: Ronel Haney on 03-20-2022 Eosinophils/100 WBC (Bld) N/A [facility] Eosinophils/100 WBC Manual c nt (Bld)Ordered By: Ronel Haney on 03-20-2022 Eosinophils/100 WBC (Bld) 1 % 1-3 [facility] Erythrocyte distribution wid th Auto (RBC) [Ratio]Ordered By: Ronel Haney on 03-20-2022 Erythrocyte distribution width (RBC) [Ratio] 15.9 % 11.9-15.3 [facility] Giant platelets/100 leukocyt es [Ratio] in Blood by Manual countOrdered By: Ronel Haney on 03-20-2022 Giant platelets/100 WBC Manual cnt (Bld) [Ratio] 3 /100{WBC} [facility] Globulin Calc (S) [Mass/Vol] Ordered By: Ronel Haney on 03-20-2022 Globulin (S) [Mass/Vol] 3.3 g/dL F [facility] Glucose Poct Glucometerson 1 05-21-2021 Glucose [Mass/Vol] 289 mg/dL Normal [facility] Comment on above: Result Comment: [facility] Glucose Reference Range is dependent on time and content of last meal. Glucose of more than 200 mg/dL in a nonstressed, ambulatory subject supports the diagnosis of Diabetes Mellitus.PERFORMED BY:[place] [address] [address] [place], [place] [phone] MEDICAL DIRECTORKIMBERLYN SINGER M.D. Performed By: #### G LULS ####Point of Care testing, Commemt1 Glu2: Cleaned Meter [facility] Comment on above: Result Comment: PERF ORMED BY:[address] [place]PEWEE [place], [place] [phone] MEDICAL DIRECTORKIMBERLYN SINGER M.D. Performed By: #### G LULS ####Point of Care testing, Glucose [Mass/Vol] 166 mg/dL Normal [facility] Comment on above: Result Comment: [facility] Glucose Reference Range is dependent on time and content of last meal. Glucose of more than 200 mg/dL in a nonstressed, ambulatory subject supports the diagnosis of Diabetes Mellitus. Performed By: #### G LULS ####Point of Care testing, Commemt1 Glu2: Cleaned Meter [facility] Comment on above: Result Comment: PERF ORMED BY:[place] [address] [address] [place], [place] [phone] MEDICAL DIRECTORKIMBERLYN SINGER M.D. Performed By: #### G LULS ####Point of Care testing, Glucose [Mass/Vol] 297 mg/dL Normal [facility] Comment on above: Result Comment: [place] Glucose Reference Range is dependent on time and content of last meal. Glucose of more than 200 mg/dL in a nonstressed, ambulatory subject supports the diagnosis of Diabetes Mellitus. Performed By: #### G LULS ####Point of Care testing, Commemt1 Glu2: Cleaned Meter Normal [facility] Comment on above: Result Comment: PERF ORMED BY:[address] HUIZARTeeteeRASHAUNVILLA [place], [place] [phone] MEDICAL DIRECTORKIMBERLYN SINGER M.D. Performed By: #### G LULS ####Point of Care testing, Glucose [Mass/Vol] 274 mg/dL Normal [facility] Comment on above: Result Comment: [facility] Glucose Reference Range is dependent on time and content of last meal. Glucose of more than 200 mg/dL in a nonstressed, ambulatory subject supports the diagnosis of Diabetes Mellitus. Performed By: #### G LULS ####Point of Care testing, Hematocrit Auto (Bld) [Volum e fraction]Ordered By: Ronel Haney on 03-20-2022 Hematocrit (Bld) [Volume fraction] 28.2 % 34.0-46.4 [facility] Hemoglobin [Mass/volume] in BloodOrdered By: Ronel Haney on 03-20-2022 Hemoglobin (Bld) [Mass/Vol] 9.4 g/dL 11.8-15.4 [facility] Ketones Auto test strip (U) [Mass/Vol]Ordered By: Ryan Ibrahim on 03-20-2022 Ketones (U) [Mass/Vol] Negative Negative [facility] Leukocytes [#/volume] correc negar for nucleated erythrocytes in Blood by Automated counOrdered By: Ronel Haney on 03-20-2022 WBC corrected for nucl RBC Auto (Bld) [#/Vol] 8.0 10*3/uL 3.8-11.6 [facility] Lymphocytes Auto (Bld) [#/Vo l]Ordered By: Ronel Haney on 03-20-2022 Lymphocytes (Bld) [#/Vol] N/A [facility] Lymphocytes/100 WBC Auto (Bl d)Ordered By: Ronel Haney on 03-20-2022 Lymphocytes/100 WBC (Bld) N/A [facility] Lymphocytes/100 WBC Manual c nt (Bld)Ordered By: Ronel Haney on 03-20-2022 Lymphocytes/100 WBC (Bld) 18 % 18-42 [facility] MCH Auto (RBC) [Entitic mass ]Ordered By: Ronel Haney on 03-20-2022 MCH (RBC) [Entitic mass] 30.6 pg 24.7-34.3 [facility] MCHC Auto (RBC) [Mass/Vol]Or dered By: Ronel Haney on 03-20-2022 MCHC (RBC) [Mass/Vol] 33.5 g/dL 32.0-35.0 [facility] MCV Auto (RBC) [Entitic vol] Ordered By: Ronel Haney on 03-20-2022 MCV (RBC) [Entitic vol] 91.5 fL 80-100 [facility] Metamyelocytes/100 WBC Manua l cnt (Bld)Ordered By: Ronel Haney on 03-20-2022 Metamyelocytes/100 WBC (Bld) 2 % 0-0 [facility] Microcytes LM Ql (Bld)Ordere d By: Ronel Haney on 03-20-2022 Microcytes Ql (Bld) Slight [facility] Monocytes Auto (Bld) [#/Vol] Ordered By: Ronel Haney on 03-20-2022 Monocytes (Bld) [#/Vol] N/A [facility] Monocytes/100 WBC Auto (Bld) Ordered By: Ronel Haney on 03-20-2022 Monocytes/100 WBC (Bld) N/A [facility] Monocytes/100 WBC Manual cnt (Bld)Ordered By: Ronel Haeny on 03-20-2022 Monocytes/100 WBC (Bld) 6 % 2-11 [facility] Myelocytes/100 WBC Manual cn t (Bld)Ordered By: Ronel Haney on 03-20-2022 Myelocytes/100 WBC (Bld) 3 % 0-0 [facility] Neutrophils Auto (Bld) [#/Vo l]Ordered By: Ronel Haney on 03-20-2022 Neutrophils (Bld) [#/Vol] N/A [facility] Neutrophils/100 WBC Auto (Bl d)Ordered By: Ronel Haney on 03-20-2022 Neutrophils/100 WBC (Bld) N/A [facility] Nitrite Test strip Ql (U)Ord ered By: Ryan Ibrahim on 03-20-2022 Nitrite Ql (U) Negative Negative [facility] Nucleated erythrocytes [Pres ence] in Blood by Automated countOrdered By: Ronel Haney on 03-20-2022 Nucleated RBC Auto Ql (Bld) N/A [facility] Platelet adequacy [Presence] in Blood by Light microscopyOrdered By: Ronel Haney on 03-20-2022 Platelets LM Ql (Bld) Normal Normal [facility] Platelet mean volume Auto (B ld) [Entitic vol]Ordered By: Ronel Haney on 03-20-2022 Platelet mean volume (Bld) [Entitic vol] 8.3 fL 6.3-10.7 [facility] Platelet morphology finding [Identifier] in BloodOrdered By: Ronel Haney on 03-20-2022 Platelet morphology finding Nom (Bld) Normal Normal [facility] Platelets Auto (Bld) [#/Vol] Ordered By: Ronel Haney on 03-20-2022 Platelets (Bld) [#/Vol] 294 10*3/uL 150-450 [facility] Polychromasia [Presence] in Blood by Light microscopyOrdered By: Ronel Haney on 03-20-2022 Polychromasia LM Ql (Bld) Slight [facility] Prealbuminon 03-20-2022 Prealbumin [Mass/Vol] 13.7 mg/dL Low 18.0-38.0 [facility] Comment on above: Result Comment: PERF ORMED BY:[facility] [place], [place] [phone] MEDICAL DIRECTORKIMBERLYN SINGER M.D. Performed By: #### C MP, DIFF CBC, PAB ####[facility] [id number] [place] [address] [facility] Protein Auto test strip (U) [Mass/Vol]Ordered By: Ryan Ibrahim on 03-20-2022 Protein (U) [Mass/Vol] Negative Negative [facility] Protein [Mass/volume] in Ser um or PlasmaOrdered By: Ronel Haney on 03-20-2022 Protein [Mass/Vol] 6.1 g/dL 6.1-7.9 [facility] RBC Auto (Bld) [#/Vol]Ordere d By: Ronel Haney on 03-20-2022 RBC (Bld) [#/Vol] 3.08 10*6/uL 3.60-5.[address] [facility] RBC morphologyOrdered By: Dalton Haney on 03-20-2022 RBC morphology finding Nom (Bld) N/A [facility] Segmented neutrophils/100 WB C Manual cnt (Bld)Ordered By: Ronel Haney on 03-20-2022 Segmented neutrophils/100 WBC (Bld) 68 % 50-70 [facility] Serum or plasma alanine larsen otransferase measurement without P-5'-P (enzymatic activiOrdered By: Ronel Haney on 03-20-2022 ALT No additional P-5'-P [Catalytic activity/Vol] 14 U/L 10-60 [facility] Serum or plasma albumin/glob ulin mass ratioOrdered By: Ronel Haney on 03-20-2022 Albumin/Globulin [Mass ratio] 0.8 {ratio} [facility] Serum or plasma alkaline [place] sphatase measurement (enzymatic activity/volume)Ordered By: Ronel Haney on 03-20-2022 ALP [Catalytic activity/Vol] 129 U/L 32-92 [facility] Serum or plasma aspartate am inotransferase measurement (enzymatic activity/volume)Ordered By: Ronel Haney on 03-20-2022 AST [Catalytic activity/Vol] 17 U/L 10-42 [facility] Serum or plasma prealbumin m easurement (mass/volume)Ordered By: Ronel Haney on 03-20-2022 Prealbumin [Mass/Vol] 13.7 mg/dL 18.0-38.0 [facility] Serum or plasma total biliru bin measurement (mass/volume)Ordered By: Ronel Haney on 03-20-2022 Bilirubin [Mass/Vol] 0.6 mg/dL 0.3-1.2 [facility] Specific gravity Auto test s trip (U) [Rel density]Ordered By: Ryan Ibrahim on 03-20-2022 Specific gravity (U) [Rel density] 1.005 1.001-1.03 0 [facility] Urine clarity by refractomet ry automatedOrdered By: Ryan Ibrahim on 03-20-2022 Clarity Refractometry automated (U) Clear Clear [facility] Urine glucose measurement by automated test strip (mass/volume)Ordered By: Ryan Ibrahim on 03-20-2022 Glucose Auto test strip (U) [Mass/Vol] Normal mg/dL Normal [facility] Urine hemoglobin detection b y automated test stripOrdered By: Ryan Ibrahim on 03-20-2022 Hemoglobin Auto test strip Ql (U) Negative Negative [facility] Urine leukocyte esterase det ection by automated test stripOrdered By: Ryan Ibrahim on 03-20-2022 Leukocyte esterase Auto test strip Ql (U) Negative Negative [facility] Urobilinogen Auto test strip (U) [Mass/Vol]Ordered By: Ryan Ibrahim on 03-20-2022 Urobilinogen (U) [Mass/Vol] Normal mg/dL Normal [facility] WBC Auto (Bld) [#/Vol]Ordere d By: Ronel Haney on 03-20-2022 WBC (Bld) [#/Vol] 8.0 10*3/uL 3.8-11.6 [facility] pH Auto test strip (U)Ordere d By: Ryan Ibrahim on 03-20-2022 pH (U) 7.0 [pH] 5.0-9.0 [facility] Anisocytosis LM Ql (Bld)Orde red By: Nicolasajer Hull on 03-19-2022 Anisocytosis Ql (Bld) Slight [facility] Band form neutrophils/100 WB C Manual cnt (Bld)Ordered By: Nicolasa Hull on 03-19-2022 Band form neutrophils/100 WBC (Bld) 6 % 0-5 [facility] Basic Metabolic Panelon 03-08 Anion gap [Moles/Vol] 11.8 mmol/L Normal 6.0-15.0 [facility] Comment on above: Performed By: #### D IFF CBC, CBC, BMP ####[facility] [id number] [place] [address] [facility] Calcium [Mass/Vol] 8.3 mg/dL Normal 8.2-10.2 [facility] Comment on above: Performed By: #### D IFF CBC, CBC, BMP ####[place] [address] [place] [address] [facility] Chloride [Moles/Vol] 97 mmol/L Normal 95-114 [facility] Comment on above: Performed By: #### D IFF CBC, CBC, BMP ####[place] [place] [place] [address] [facility] CO2 [Moles/Vol] 28.2 mmol/L Normal 22.0-30.0 [facility] Comment on above: Performed By: #### D IFF CBC, CBC, BMP ####[address] [place] [address] [facility] Creatinine [Mass/Vol] 0.73 mg/dL Normal 0.44-1.03 [facility] Comment on above: Performed By: #### D IFF CBC, CBC, BMP ####[facility] [address] [place] [address] [place] Creatinine Clr Calc Pharmacy 73.96 Normal [facility] Comment on above: Result Comment: PERF ORMED BY:[address] [place], [place] [phone] MEDICAL DIRECTORKIMBERLYN SINGER M.D. Performed By: #### D IFF CBC, CBC, BMP ####[facility] [place] [address] [facility] Estimated GFR ( Brenda > 60 Normal [facility] Comment on above: Result Comment: GFR estimated reference range: According to KDOQI guidelines, <60 ml/min/1.73m2 is sufficient to diagnose a patient with chronic kidney disease. Performed By: #### D IFF CBC, CBC, BMP ####[place] [address] [place] [id number] [facility] Estimated GFR (Non- Am > 60 [facility] Comment on above: Performed By: #### D IFF CBC, CBC, BMP ####[address] [place] [place] [address] [facility] Glucose [Mass/Vol] 186 mg/dL High 70-100 [facility] Comment on above: Result Comment: [place] Glucose Reference Range is dependent on time and content of last meal. Glucose of more than 200 mg/dL in a nonstressed, ambulatory subject supports the diagnosis of Diabetes Mellitus. ADA recommended reference range Performed By: #### D IFF CBC, CBC, BMP ####[address] [place] [address] [facility] Potassium [Moles/Vol] 4.0 mmol/L Normal 3.5-5.1 [facility] Comment on above: Performed By: #### D IFF CBC, CBC, BMP ####[address] [place] [address] [facility] Sodium [Moles/Vol] 133 mmol/L Low 136-146 [facility] Comment on above: Performed By: #### D IFF CBC, CBC, BMP ####[address] [place] [address] [facility] Urea nitrogen [Mass/Vol] 10 mg/dL Normal 9-23 [facility] Comment on above: Performed By: #### D IFF CBC, CBC, BMP ####[facility] [id number] [place] [address] [facility] Basophils Auto (Bld) [#/Vol] Ordered By: Nicolasa Hull on 03-19-2022 Basophils (Bld) [#/Vol] N/A [facility] Basophils/100 WBC Auto (Bld) Ordered By: Nicolasa Hull on 03-19-2022 Basophils/100 WBC (Bld) N/A [facility] Complete Blood Count Auto Di ffon 03-19-2022 Erythrocyte distribution width (RBC) [Ratio] 15.9 % High 11.9-15.3 [facility] Comment on above: Performed By: #### D IFF CBC, CBC, BMP ####[address] Hematocrit (Bld) [Volume fraction] 24.6 % Low 34.0-46.4 [facility] Comment on above: Performed By: #### D IFF CBC, CBC, BMP ####[address] Hemoglobin (Bld) [Mass/Vol] 8.4 g/dL Low 11.8-15.4 [facility] Comment on above: Performed By: #### D IFF CBC, CBC, BMP ####[place] [id number] [facility] MCH (RBC) [Entitic mass] 31.0 pg Normal 24.7-34.3 [facility] Comment on above: Performed By: #### D IFF CBC, CBC, BMP ####[place] [id number] [facility] MCV (RBC) [Entitic vol] 90.8 fL Normal 80-100 [facility] Comment on above: Performed By: #### D IFF CBC, CBC, BMP ####[place] [id number] [facility] Mean Corpuscular HGB Conc 34.1 g/dL Normal 32.0-35.0 [facility] Comment on above: Performed By: #### D IFF CBC, CBC, BMP ####[place] [id number] [facility] Platelet mean volume (Bld) [Entitic vol] 8.9 fL Normal 6.3-10.7 [facility] Comment on above: Result Comment: PERF ORMED BY:[facility] [place], [place] [phone] MEDICAL DIRECTORKIMBERLYN SINGER M.D. Performed By: #### D IFF CBC, CBC, BMP ####[facility] [address] [place] [address] [place] Platelets (Bld) [#/Vol] 293 10*3/uL Normal 150-450 [facility] Comment on above: Performed By: #### D IFF CBC, CBC, BMP ####[address] [place] [address] [facility] RBC (Bld) [#/Vol] 2.71 10*6/uL Low 3.60-5.[address] [facility] Comment on above: Performed By: #### D IFF CBC, CBC, BMP ####[address] [place] [address] [facility] WBC (Bld) [#/Vol] 8.0 10*3/uL Normal 3.8-11.6 [facility] Comment on above: Performed By: #### D IFF CBC, CBC, BMP ####[address] [address] [facility] Creatinine and Glomerular fi ltration rate.predicted panel (S/P/Bld)Ordered By: Nicolasa Hull on 03-19-2022 Creatinine [Mass/Vol] 0.73 mg/dL 0.44-1.03 [facility] Diff and CBCon 03-19-2022 Anisocytosis Ql (Bld) Slight Normal [facility] Comment on above: Performed By: #### D IFF CBC, CBC, BMP ####[address] [place] [address] [place] Band form neutrophils/100 WBC (Bld) 6 % High 0-5 [facility] Comment on above: Performed By: #### D IFF CBC, CBC, BMP ####[address] [place] [address] [place] Eosinophils/100 WBC (Bld) 1 % Normal 1-3 [facility] Comment on above: Performed By: #### D IFF CBC, CBC, BMP ####[facility] [address] [place] [address] [facility] Giant Platelet Tally 1 /100{WBC} Normal [facility] Comment on above: Performed By: #### D IFF CBC, CBC, BMP ####[facility] Zpf[address] [place] [address] [place] Lymphocytes/100 WBC (Bld) 22 % Normal 18-42 [facility] Comment on above: Performed By: #### D IFF CBC, CBC, BMP ####[facility] Ttn[address] [place] [address] [facility] Metamyelocytes 2 % High 0-0 [facility] Comment on above: Performed By: #### D IFF CBC, CBC, BMP ####[address] [place] [address] [facility] Monocytes/100 WBC (Bld) 6 % Normal 2-11 [facility] Comment on above: Performed By: #### D IFF CBC, CBC, BMP ####[facility] [address] [place] [address] [facility] Myelocytes 4 % High 0-0 [facility] Comment on above: Performed By: #### D IFF CBC, CBC, BMP ####[facility] [address] [place] [address] [facility] Nucleated Red Blood Cell 1 /100{WBC} High 0-0 [facility] Comment on above: Performed By: #### D IFF CBC, CBC, BMP ####[facility] Jbe[address] [place] [address] [facility] Platelet Estimate Normal Normal Normal [facility] Comment on above: Performed By: #### D IFF CBC, CBC, BMP ####[facility] [address] [place] [address] [facility] Platelet Morphology Normal Normal Normal [facility] Comment on above: Result Comment: PERF ORMED BY:[address] [place], [place] [phone] MEDICAL DIRECTORKIMBERLYN SINGER M.D. Performed By: #### D IFF CBC, CBC, BMP ####[facility] [address] Polychromasia Slight Normal [facility] Comment on above: Performed By: #### D IFF CBC, CBC, BMP ####[facility] Amh[address] [place] [address] [facility] Segmented neutrophils/100 WBC (Bld) 60 % Normal 50-70 [facility] Comment on above: Performed By: #### D IFF CBC, CBC, BMP ####[facility] Ybu[address] [place] [address] [facility] Eosinophils Auto (Bld) [#/Vo l]Ordered By: Nicolasa Hull on 03-19-2022 Eosinophils (Bld) [#/Vol] N/A [facility] Eosinophils/100 WBC Auto (Bl d)Ordered By: Nicolasa Hull on 03-19-2022 Eosinophils/100 WBC (Bld) N/A [facility] Eosinophils/100 WBC Manual c nt (Bld)Ordered By: Nicolasa Hull on 03-19-2022 Eosinophils/100 WBC (Bld) 1 % 1-3 [facility] Erythrocyte distribution wid th Auto (RBC) [Ratio]Ordered By: Nicolasa Hull on 03-19-2022 Erythrocyte distribution width (RBC) [Ratio] 15.9 % 11.9-15.3 [facility] Estimated glomerular filtrat ion rate (GFR) non- AmericanOrdered By: Nicolasa Hull on 03-19-2022 GFR/1.73 sq M.predicted among non-blacks MDRD (S/P/Bld) [Vol rate/Area] > 60 mL/Min [facility] Giant platelets/100 leukocyt es [Ratio] in Blood by Manual countOrdered By: Nicolasa Hull on 03-19-2022 Giant platelets/100 WBC Manual cnt (Bld) [Ratio] 1 /100{WBC} [facility] Glucose Glucometer (BldC) [M ass/Vol]Ordered By: Navarro Cota on 03-19-2022 Glucose [Mass/Vol] 310 mg/dL [facility] Comment on above: Random Glucose Refer ence Range is dependent on time and content of last meal. Glucose of more than 200 mg/dL in a nonstressed, ambulatory subject supports the diagnosis of Diabetes Mellitus. Glucose Poct Glucometerson 1 05-20-2021 Commemt1 Glu2: Cleaned Meter [facility] Comment on above: Result Comment: PERF ORMED BY:[address] [place] [place], [place] [phone] MEDICAL DIRECTORKIMBERLYN SINGER M.D. Performed By: #### G LULS ####Point of Care testing, Glucose [Mass/Vol] 253 mg/dL Normal [facility] Comment on above: Result Comment: [place] Glucose Reference Range is dependent on time and content of last meal. Glucose of more than 200 mg/dL in a nonstressed, ambulatory subject supports the diagnosis of Diabetes Mellitus. Performed By: #### G LULS ####Point of Care testing, Glucose [Mass/Vol] 152 mg/dL Normal [facility] Comment on above: Result Comment: [place] om Glucose Reference Range is dependent on time and content of last meal. Glucose of more than 200 mg/dL in a nonstressed, ambulatory subject supports the diagnosis of Diabetes Mellitus.PERFORMED BY:[address] [place], [place] [phone] MEDICAL ANDRE SINGER M.D. Performed By: #### G LULS ####Point of Care testing, Commemt1 Glu2: Cleaned Meter [facility] Comment on above: Result Comment: PERF ORMED BY:[address], [place] [phone] MEDICAL DIRECTORKIMBERLYN SINGER M.D. Performed By: #### G LULS ####Point of Care testing, Glucose [Mass/Vol] 310 mg/dL Normal [facility] Comment on above: Result Comment: [place] Glucose Reference Range is dependent on time and content of last meal. Glucose of more than 200 mg/dL in a nonstressed, ambulatory subject supports the diagnosis of Diabetes Mellitus. Performed By: #### G LULS ####Point of Care testing, Glucose [Mass/Vol] 195 mg/dL Normal [facility] Comment on above: Result Comment: [facility] Glucose Reference Range is dependent on time and content of last meal. Glucose of more than 200 mg/dL in a nonstressed, ambulatory subject supports the diagnosis of Diabetes Mellitus.PERFORMED BY:[address] [place], [place] [phone] MEDICAL DIRECTORKIMBERLYN SINGER M.D. Performed By: #### G LULS ####Point of Care testing, Hematocrit Auto (Bld) [Volum e fraction]Ordered By: Nicolasa Hull on 03-19-2022 Hematocrit (Bld) [Volume fraction] 24.6 % 34.0-46.4 [facility] Hemoglobin [Mass/volume] in BloodOrdered By: Nicolasa Hull on 03-19-2022 Hemoglobin (Bld) [Mass/Vol] 8.4 g/dL 11.8-15.4 [facility] Leukocytes [#/volume] correc negar for nucleated erythrocytes in Blood by Automated counOrdered By: Nicolasa Hull on 03-19-2022 WBC corrected for nucl RBC Auto (Bld) [#/Vol] 8.0 10*3/uL 3.8-11.6 [facility] Lymphocytes Auto (Bld) [#/Vo l]Ordered By: Nicolasa Hull on 03-19-2022 Lymphocytes (Bld) [#/Vol] N/A [facility] Lymphocytes/100 WBC Auto (Bl d)Ordered By: Nicolasa Hull on 03-19-2022 Lymphocytes/100 WBC (Bld) N/A [facility] Lymphocytes/100 WBC Manual c nt (Bld)Ordered By: Nicolasa Hull on 03-19-2022 Lymphocytes/100 WBC (Bld) 22 % 18-42 [facility] MCH Auto (RBC) [Entitic mass ]Ordered By: Nicolasa Hull on 03-19-2022 MCH (RBC) [Entitic mass] 31.0 pg 24.7-34.3 [facility] MCHC Auto (RBC) [Mass/Vol]Or dered By: Nicolasa Hull on 03-19-2022 MCHC (RBC) [Mass/Vol] 34.1 g/dL 32.0-35.0 Fir [facility] MCV Auto (RBC) [Entitic vol] Ordered By: Nicolasa Hull on 03-19-2022 MCV (RBC) [Entitic vol] 90.8 fL 80-100 F [facility] Metamyelocytes/100 WBC Manua l cnt (Bld)Ordered By: Nicolasa Hull on 03-19-2022 Metamyelocytes/100 WBC (Bld) 2 % 0-0 [facility] Monocytes Auto (Bld) [#/Vol] Ordered By: Nicolasa Hull on 03-19-2022 Monocytes (Bld) [#/Vol] N/A [facility] Monocytes/100 WBC Auto (Bld) Ordered By: Nicolasa Hull on 03-19-2022 Monocytes/100 WBC (Bld) N/A [facility] Monocytes/100 WBC Manual cnt (Bld)Ordered By: Nicolasa Hull on 03-19-2022 Monocytes/100 WBC (Bld) 6 % 2-11 [facility] Myelocytes/100 WBC Manual cn t (Bld)Ordered By: Nicolasa Hull on 03-19-2022 Myelocytes/100 WBC (Bld) 4 % 0-0 [facility] Neutrophils Auto (Bld) [#/Vo l]Ordered By: Nicolasa Hull on 03-19-2022 Neutrophils (Bld) [#/Vol] N/A [facility] Neutrophils/100 WBC Auto (Bl d)Ordered By: Nicolasa Hull on 03-19-2022 Neutrophils/100 WBC (Bld) N/A [facility] No Panel InformationOrdered By: Navarro Cota on 03-19-2022 Bedside Glucose Comment Glu2: cleaned meter [facility] No Panel InformationOrdered By: Nicolasa Hull on 03-19-2022 Estimated GFR () > 60 mL/Min [facility] Comment on above: GFR estimated refere nce range: According to KDOQI guidelines, <60 ml/min/1.73m2 is sufficient to diagnose a patient with chronic kidney disease. Pharmacy Creatinine Clearance (Chem 73.96 [facility] Nucleated RBC/100 WBC Manual cnt (Bld) [Ratio]Ordered By: Nicolasa Hull on 03-19-2022 Nucleated RBC/100 WBC (Bld) [Ratio] 1 /100{WBC} 0-0 [facility] Nucleated erythrocytes [Pres ence] in Blood by Automated countOrdered By: Nicolasa Hull on 03-19-2022 Nucleated RBC Auto Ql (Bld) N/A [facility] Platelet adequacy [Presence] in Blood by Light microscopyOrdered By: Nicolasa Hull on 03-19-2022 Platelets LM Ql (Bld) Normal Normal [facility] Platelet mean volume Auto (B ld) [Entitic vol]Ordered By: Nicolasa Hull on 03-19-2022 Platelet mean volume (Bld) [Entitic vol] 8.9 fL 6.3-10.7 [facility] Platelet morphology finding [Identifier] in BloodOrdered By: Nicolasa Hull on 03-19-2022 Platelet morphology finding Nom (Bld) Normal Normal [facility] Platelets Auto (Bld) [#/Vol] Ordered By: Nicolasa Hull on 03-19-2022 Platelets (Bld) [#/Vol] 293 10*3/uL 150-450 [facility] Polychromasia [Presence] in Blood by Light microscopyOrdered By: Nicolasa Hull on 03-19-2022 Polychromasia LM Ql (Bld) Slight [facility] RBC Auto (Bld) [#/Vol]Ordere d By: Nicolasa Hull on 03-19-2022 RBC (Bld) [#/Vol] 2.71 10*6/uL 3.60-5.[address] [facility] RBC morphologyOrdered By: Marva Hull on 03-19-2022 RBC morphology finding Nom (Bld) N/A [facility] Segmented neutrophils/100 WB C Manual cnt (Bld)Ordered By: Nicolasa Hull on 03-19-2022 Segmented neutrophils/100 WBC (Bld) 60 % 50-70 [facility] Serum or plasma anion gap de terminationOrdered By: Nicolasa Hull on 03-19-2022 Anion gap [Moles/Vol] 11.8 mmol/L 6.0-15.0 [facility] Serum or plasma calcium john urement (mass/volume)Ordered By: Nicolasa Hull on 03-19-2022 Calcium [Mass/Vol] 8.3 mg/dL 8.2-10.2 [facility] Serum or plasma chloride tressa surement (moles/volume)Ordered By: Nicolasa Hull on 03-19-2022 Chloride [Moles/Vol] 97 mmol/L 95-114 [facility] Serum or plasma glucose john urement (mass/volume)Ordered By: Nicolasa Hull on 03-19-2022 Glucose [Mass/Vol] 186 mg/dL 70-100 [facility] Comment on above: ADA recommended refe rence rangeRandom Glucose Reference Range is dependent on time and content of last meal. Glucose of more than 200 mg/dL in a nonstressed, ambulatory subject supports the diagnosis of Diabetes Mellitus. Serum or plasma potassium me asurement (moles/volume)Ordered By: Nicolasa Hull on 03-19-2022 Potassium [Moles/Vol] 4.0 mmol/L 3.5-5.1 [facility] Serum or plasma sodium measu rement (moles/volume)Ordered By: Nicolasa Hull on 03-19-2022 Sodium [Moles/Vol] 133 mmol/L 136-146 [facility] Serum or plasma total carbon dioxide measurement (moles/volume)Ordered By: Nicolasa Hull on 03-19-2022 CO2 [Moles/Vol] 28.2 mmol/L 22.0-30.0 [facility] Serum or plasma urea nitroge n measurement (mass/volume)Ordered By: Nicolasa Hull on 03-19-2022 Urea nitrogen [Mass/Vol] 10 mg/dL 9-23 [facility] WBC Auto (Bld) [#/Vol]Ordere d By: Nicolasa Hull on 03-19-2022 WBC (Bld) [#/Vol] 8.0 10*3/uL 3.8-11.6 [facility] XR shoulder LT min 2V*on XR shoulder LT min 2V* Normal [facility] Basic Metabolic Panelon 12- Anion gap [Moles/Vol] 11.2 mmol/L Normal 6.0-15.0 [facility] Comment on above: Performed By: #### B MP, CBC ####[facility] [address] [place] [address] [facility] Calcium [Mass/Vol] 8.1 mg/dL Low 8.2-10.2 [facility] Comment on above: Performed By: #### B MP, CBC ####[facility] [address] [place] [address] [facility] Chloride [Moles/Vol] 97 mmol/L Normal 95-114 [facility] Comment on above: Performed By: #### B MP, CBC ####[address] [place] [address] [facility] CO2 [Moles/Vol] 26.7 mmol/L Normal 22.0-30.0 [facility] Comment on above: Performed By: #### B MP, CBC ####[address] [place] [address] [facility] Creatinine [Mass/Vol] 0.75 mg/dL Normal 0.44-1.03 [facility] Comment on above: Performed By: #### B MP, CBC ####[address] [place] [address] [place] Creatinine Clr Calc Pharmacy 73.79 [facility] Comment on above: Result Comment: PERF ORMED BY:[address] [place], [place] [phone] MEDICAL DIRECTORKIMBERLYN SINGER M.D. Performed By: #### B MP, CBC ####[address] [address] [facility] Estimated GFR ( Brenda > 60 Normal [facility] Comment on above: Result Comment: GFR estimated reference range: According to KDOQI guidelines, <60 ml/min/1.73m2 is sufficient to diagnose a patient with chronic kidney disease. Performed By: #### B MP, CBC ####[address] [place] [address] [facility] Estimated GFR (Non- Am > 60 Normal [facility] Comment on above: Performed By: #### B MP, CBC ####[address] [place] [id number] [facility] Glucose [Mass/Vol] 176 mg/dL High 70-100 [facility] Comment on above: Result Comment: [place] Glucose Reference Range is dependent on time and content of last meal. Glucose of more than 200 mg/dL in a nonstressed, ambulatory subject supports the diagnosis of Diabetes Mellitus. ADA recommended reference range Performed By: #### B MP, CBC ####[address] Potassium [Moles/Vol] 3.9 mmol/L Normal 3.5-5.1 [facility] Comment on above: Performed By: #### B MP, CBC ####[address] Sodium [Moles/Vol] 131 mmol/L Low 136-146 [facility] Comment on above: Performed By: #### B MP, CBC ####[id number] [facility] Urea nitrogen [Mass/Vol] 7 mg/dL Low 9-23 [facility] Comment on above: Performed By: #### B MP, CBC ####[place] [id number] [facility] Complete Blood Count Auto Di ffon 03-18-2022 Basophils (Bld) [#/Vol] 0.1 10*3/uL Normal 0.0-0.2 [facility] Comment on above: Result Comment: PERF ORMED BY:[address] [place], [place] [phone] MEDICAL ANDRE SINGER M.D. Performed By: #### B MP, CBC ####[place] [id number] [place] Basophils/100 WBC (Bld) 0.8 % Normal . F [facility] Comment on above: Performed By: #### B MP, CBC ####[address] Eosinophils (Bld) [#/Vol] 0.3 10*3/uL Normal 0.0-0.45 [facility] Comment on above: Performed By: #### B MP, CBC ####[id number] [facility] Eosinophils/100 WBC (Bld) 3.2 % Normal . [facility] Comment on above: Performed By: #### B MP, CBC ####[address] Erythrocyte distribution width (RBC) [Ratio] 15.8 % High 11.9-15.3 [facility] Comment on above: Performed By: #### B MP, CBC ####[address] Hematocrit (Bld) [Volume fraction] 26.2 % Low 34.0-46.4 [facility] Comment on above: Performed By: #### B MP, CBC ####[address] Hemoglobin (Bld) [Mass/Vol] 8.7 g/dL Low 11.8-15.4 [facility] Comment on above: Performed By: #### B MP, CBC ####[address] Lymphocytes (Bld) [#/Vol] 2.6 10*3/uL Normal 1.00-4.8 [facility] Comment on above: Performed By: #### B MP, CBC ####[id number] [facility] Lymphocytes/100 WBC (Bld) 31.5 % Normal . [facility] Comment on above: Performed By: #### B MP, CBC ####[place] [id number] [facility] MCH (RBC) [Entitic mass] 30.4 pg Normal 24.7-34.3 [facility] Comment on above: Performed By: #### B MP, CBC ####[place] [id number] [facility] MCV (RBC) [Entitic vol] 91.0 fL Normal 80-100 F [facility] Comment on above: Performed By: #### B MP, CBC ####[place] [id number] [facility] Mean Corpuscular HGB Conc 33.4 g/dL Normal 32.0-35.0 [facility] Comment on above: Performed By: #### B MP, CBC ####[address] Monocytes (Bld) [#/Vol] 0.7 10*3/uL Normal 0.0-0.8 [facility] Comment on above: Performed By: #### B MP, CBC ####[place] [id number] [facility] Monocytes/100 WBC (Bld) 8.4 % Normal . [facility] Comment on above: Performed By: #### B MP, CBC ####[place] [id number] [facility] Neutrophils (Bld) [#/Vol] 4.7 10*3/uL Normal 1.8-7.7 [facility] Comment on above: Performed By: #### B MP, CBC ####[place] [id number] [facility] Neutrophils/100 WBC (Bld) 56.1 % Normal . [facility] Comment on above: Performed By: #### B MP, CBC ####[place] [id number] [facility] NRBC% 0.1 /100{WBC} Normal 0-0.5 [facility] Comment on above: Performed By: #### B MP, CBC ####[place] [id number] [facility] Platelet mean volume (Bld) [Entitic vol] 8.1 fL Normal 6.3-10.7 [facility] Comment on above: Performed By: #### B MP, CBC ####[address] [place] [address] [facility] Platelets (Bld) [#/Vol] 286 10*3/uL Normal 150-450 [facility] Comment on above: Performed By: #### B MP, CBC ####[address] [place] [address] [facility] RBC (Bld) [#/Vol] 2.88 10*6/uL Low 3.60-5.[address] [facility] Comment on above: Performed By: #### B MP, CBC ####[address] [place] [address] [facility] WBC (Bld) [#/Vol] 8.4 10*3/uL Normal 3.8-11.6 [facility] Comment on above: Performed By: #### B MP, CBC ####[address] [address] [facility] Glucose Poct Glucometerson 1 05-19-2021 Glucose [Mass/Vol] 223 mg/dL Normal [facility] Comment on above: Result Comment: [facility] Glucose Reference Range is dependent on time and content of last meal. Glucose of more than 200 mg/dL in a nonstressed, ambulatory subject supports the diagnosis of Diabetes Mellitus.PERFORMED BY:[address] [place], [place] [phone] MEDICAL ANDRE SINGER M.D. Performed By: #### G LULS ####Point of Care testing, Glucose [Mass/Vol] 259 mg/dL Normal [facility] Comment on above: Result Comment: [facility] Glucose Reference Range is dependent on time and content of last meal. Glucose of more than 200 mg/dL in a nonstressed, ambulatory subject supports the diagnosis of Diabetes Mellitus.PERFORMED BY:[address] [place], [place] [phone] MEDICAL ANDRE SINGER M.D. Performed By: #### G LULS ####Point of Care testing, Glucose [Mass/Vol] 261 mg/dL Normal [facility] Comment on above: Result Comment: [facility] Glucose Reference Range is dependent on time and content of last meal. Glucose of more than 200 mg/dL in a nonstressed, ambulatory subject supports the diagnosis of Diabetes Mellitus.PERFORMED BY:[address] [place], [place] [phone] MEDICAL DIRECTORKIMBERLYN SINGER M.D. Performed By: #### G LULS ####Point of Care testing, Glucose [Mass/Vol] 186 mg/dL Normal [facility] Comment on above: Result Comment: [facility] Glucose Reference Range is dependent on time and content of last meal. Glucose of more than 200 mg/dL in a nonstressed, ambulatory subject supports the diagnosis of Diabetes Mellitus.PERFORMED BY:[address] [place], [place] [phone] MEDICAL DIRECTORKIMBERLYN SINGER M.D. Performed By: #### G LULS ####Point of Care testing, Basic Metabolic Panelon 12-1 Anion gap [Moles/Vol] 8.5 mmol/L Normal 6.0-15.0 [facility] Comment on above: Performed By: #### D IFF CBC, BMP ####[address] [place] [address] [place] Calcium [Mass/Vol] 8.1 mg/dL Low 8.2-10.2 [facility] Comment on above: Performed By: #### D IFF CBC, BMP ####[facility] [place] [address] [place] Chloride [Moles/Vol] 100 mmol/L Normal 95-114 [facility] Comment on above: Performed By: #### D IFF CBC, BMP ####[facility] [place] [address] [place] CO2 [Moles/Vol] 27.1 mmol/L Normal 22.0-30.0 [facility] Comment on above: Performed By: #### D IFF CBC, BMP ####[facility] [address] [place] [address] [facility] Creatinine [Mass/Vol] 0.71 mg/dL Normal 0.44-1.03 [facility] Comment on above: Performed By: #### D IFF CBC, BMP ####[address] [place] [address] [facility] Creatinine Clr Calc Pharmacy 72.50 [facility] Comment on above: Result Comment: PERF ORMED BY:[address] [place], [place] [phone] MEDICAL DIRECTORKIMBERLYN SINGER M.D. Performed By: #### D IFF CBC, BMP ####[address] [place] [id number] [facility] Estimated GFR ( Brenda > 60 [facility] Comment on above: Result Comment: GFR estimated reference range: According to KDOQI guidelines, <60 ml/min/1.73m2 is sufficient to diagnose a patient with chronic kidney disease. Performed By: #### D IFF CBC, BMP ####[address] [address] [facility] Estimated GFR (Non- Am > 60 [facility] Comment on above: Performed By: #### D IFF CBC, BMP ####[address] [address] [facility] Glucose [Mass/Vol] 151 mg/dL High 70-100 [facility] Comment on above: Result Comment: [place] Glucose Reference Range is dependent on time and content of last meal. Glucose of more than 200 mg/dL in a nonstressed, ambulatory subject supports the diagnosis of Diabetes Mellitus. ADA recommended reference range Performed By: #### D IFF CBC, BMP ####[address] [address] [facility] Potassium [Moles/Vol] 3.6 mmol/L Normal 3.5-5.1 [facility] Comment on above: Performed By: #### D IFF CBC, BMP ####[place] [id number] [place] Sodium [Moles/Vol] 132 mmol/L Low 136-146 [facility] Comment on above: Performed By: #### D IFF CBC, BMP ####[place] [address] [place] [id number] [facility] Urea nitrogen [Mass/Vol] 4 mg/dL Low 9-23 [facility] Comment on above: Performed By: #### D IFF CBC, BMP ####[place] [address] [place] [address] [facility] Basophils/100 WBC Manual cnt (Bld)Ordered By: Nicolasa Hull on 03-17-2022 Basophils/100 WBC (Bld) 0 % 0-2 F [facility] Diff and CBCon 03-17-2022 Anisocytosis Ql (Bld) Slight Normal Fir [facility] Comment on above: Performed By: #### D IFF CBC, BMP ####[address] Band form neutrophils/100 WBC (Bld) 1 % Normal 0-5 [facility] Comment on above: Performed By: #### D IFF CBC, BMP ####[place] [id number] [facility] Basophils/100 WBC (Bld) 0 % Normal 0-2 F [facility] Comment on above: Performed By: #### D IFF CBC, BMP ####[address] [address] [facility] Eosinophils/100 WBC (Bld) 4 % High 1-3 [facility] Comment on above: Performed By: #### D IFF CBC, BMP ####[place] [address] [place] [address] [facility] Erythrocyte distribution width (RBC) [Ratio] 15.9 % High 11.9-15.3 [facility] Comment on above: Performed By: #### D IFF CBC, BMP ####[place] [address] [place] [address] [facility] Hematocrit (Bld) [Volume fraction] 27.0 % Low 34.0-46.4 [facility] Comment on above: Performed By: #### D IFF CBC, BMP ####[place] [id number] [facility] Hemoglobin (Bld) [Mass/Vol] 9.0 g/dL Low 11.8-15.4 [facility] Comment on above: Performed By: #### D IFF CBC, BMP ####[place] [id number] [facility] Lymphocytes/100 WBC (Bld) 19 % Normal 18-42 [facility] Comment on above: Performed By: #### D IFF CBC, BMP ####[place] [id number] [facility] MCH (RBC) [Entitic mass] 30.5 pg Normal 24.7-34.3 [facility] Comment on above: Performed By: #### D IFF CBC, BMP ####[address] MCV (RBC) [Entitic vol] 91.4 fL Normal 80-100 F [facility] Comment on above: Performed By: #### D IFF CBC, BMP ####[address] Mean Corpuscular HGB Conc 33.4 g/dL Normal 32.0-35.0 [facility] Comment on above: Performed By: #### D IFF CBC, BMP ####[place] [id number] [facility] Metamyelocytes 1 % High 0-0 [facility] Comment on above: Performed By: #### D IFF CBC, BMP ####[place] [id number] [facility] Monocytes/100 WBC (Bld) 10 % Normal 2-11 [facility] Comment on above: Performed By: #### D IFF CBC, BMP ####[place] [id number] [facility] Myelocytes 3 % High 0-0 [facility] Comment on above: Performed By: #### D IFF CBC, BMP ####[facility] [place] [address] [facility] Platelet Estimate Normal Normal Normal [facility] Comment on above: Performed By: #### D IFF CBC, BMP ####[place] [address] [place] [address] [facility] Platelet mean volume (Bld) [Entitic vol] 7.9 fL Normal 6.3-10.7 [facility] Comment on above: Performed By: #### D IFF CBC, BMP ####[address] [address] [facility] Platelet Morphology Normal Normal Normal [facility] Comment on above: Result Comment: PERF ORMED BY:[address] [place]ILYNHaroonTeeteeRASHA[place], [place] [phone] MEDICAL DIRECTORKIMBERLYN SINGER M.D. Performed By: #### D IFF CBC, BMP ####[place] [id number] [facility] Platelets (Bld) [#/Vol] 255 10*3/uL Normal 150-450 [facility] Comment on above: Performed By: #### D IFF CBC, BMP ####[address] [address] [facility] Polychromasia Slight Normal [facility] Comment on above: Performed By: #### D IFF CBC, BMP ####[address] [address] [facility] RBC (Bld) [#/Vol] 2.96 10*6/uL Low 3.60-5.[address] [facility] Comment on above: Performed By: #### D IFF CBC, BMP ####[address] [address] [facility] Segmented neutrophils/100 WBC (Bld) 62 % Normal 50-70 [facility] Comment on above: Performed By: #### D IFF CBC, BMP ####[address] [address] [facility] WBC (Bld) [#/Vol] 5.9 10*3/uL Normal 3.8-11.6 [facility] Comment on above: Performed By: #### D IFF CBC, BMP ####[facility] [place] [address] [place] Glucose Poct Glucometerson 1 05-18-2021 Glucose [Mass/Vol] 243 mg/dL Normal [facility] Comment on above: Result Comment: [place] Glucose Reference Range is dependent on time and content of last meal. Glucose of more than 200 mg/dL in a nonstressed, ambulatory subject supports the diagnosis of Diabetes Mellitus.PERFORMED BY:[place] [address] [place], [place] [phone] MEDICAL DIRECTORKIMBERLYN SINGER M.D. Performed By: #### G LULS ####Point of Care testing, Glucose [Mass/Vol] 210 mg/dL Normal [facility] Comment on above: Result Comment: [place] Glucose Reference Range is dependent on time and content of last meal. Glucose of more than 200 mg/dL in a nonstressed, ambulatory subject supports the diagnosis of Diabetes Mellitus.PERFORMED BY:[place] [address] [address] [place], [place] [phone] MEDICAL ANDRE SINGER M.D. Performed By: #### G LULS ####Point of Care testing, Glucose [Mass/Vol] 204 mg/dL Normal [facility] Comment on above: Result Comment: [facility] Glucose Reference Range is dependent on time and content of last meal. Glucose of more than 200 mg/dL in a nonstressed, ambulatory subject supports the diagnosis of Diabetes Mellitus.PERFORMED BY:[place] [address] [address] [place]UIZARTeeteeRASHAUNVILLA [place], [place] [phone] MEDICAL ANDRE SINGER M.D. Performed By: #### G LULS ####Point of Care testing, Commemt1 Glu2: Cleaned Meter Normal [facility] Comment on above: Result Comment: PERF ORMED BY:[place] [address] [address] [place], [place] [phone] MEDICAL ANDRE SINGER M.D. Performed By: #### G CHUCK ####Point of Care testing, Glucose [Mass/Vol] 171 mg/dL Normal [facility] Comment on above: Result Comment: [facility] Glucose Reference Range is dependent on time and content of last meal. Glucose of more than 200 mg/dL in a nonstressed, ambulatory subject supports the diagnosis of Diabetes Mellitus. Performed By: #### G CHUCK ####Point of Care testing, Bacterial blood cultureOrder ed By: Denice Buckner on 03-16-2022 Bacteria identified Cx Nom (Bld) NO GROWTH 5 DAYS [facility] Basic Metabolic Panelon Anion gap [Moles/Vol] 8.5 mmol/L Normal 6.0-15.0 [facility] Comment on above: Performed By: #### B MP, DIFF CBC ####[facility] [id number] [place] [address] [place] Calcium [Mass/Vol] 8.0 mg/dL Low 8.2-10.2 [facility] Comment on above: Performed By: #### B MP, DIFF CBC ####[facility] [id number] [place] [address] [place] Chloride [Moles/Vol] 99 mmol/L Normal 95-114 [facility] Comment on above: Performed By: #### B MP, DIFF CBC ####[facility] [id number] [place] [address] [place] CO2 [Moles/Vol] 25.9 mmol/L Normal 22.0-30.0 [facility] Comment on above: Performed By: #### B MP, DIFF CBC ####[facility] [address] [place] [address] [place] Creatinine [Mass/Vol] 0.62 mg/dL Normal 0.44-1.03 [facility] Comment on above: Performed By: #### B MP, DIFF CBC ####[facility] Taf[address] [place] [address] [place] Creatinine Clr Calc Pharmacy 73.92 Normal [facility] Comment on above: Result Comment: PERF ORMED BY:[address] [place], [place] [phone] MEDICAL DIRECTORKIMBERLYN SINGER M.D. Performed By: #### B MP, DIFF CBC ####[address] [address] [facility] Estimated GFR ( Brenda > 60 Normal [facility] Comment on above: Result Comment: GFR estimated reference range: According to KDOQI guidelines, <60 ml/min/1.73m2 is sufficient to diagnose a patient with chronic kidney disease. Performed By: #### B MP, DIFF CBC ####[address] [address] [facility] Estimated GFR (Non- Am > 60 Normal [facility] Comment on above: Performed By: #### B MP, DIFF CBC ####[address] [address] [facility] Glucose [Mass/Vol] 146 mg/dL High 70-100 [facility] Comment on above: Result Comment: [place] om Glucose Reference Range is dependent on time and content of last meal. Glucose of more than 200 mg/dL in a nonstressed, ambulatory subject supports the diagnosis of Diabetes Mellitus. ADA recommended reference range Performed By: #### B MP, DIFF CBC ####[address] [address] [facility] Potassium [Moles/Vol] 3.4 mmol/L Low 3.5-5.1 [facility] Comment on above: Performed By: #### B MP, DIFF CBC ####[address] [address] [facility] Sodium [Moles/Vol] 130 mmol/L Low 136-146 [facility] Comment on above: Performed By: #### B MP, DIFF CBC ####[place] [id number] [facility] Urea nitrogen [Mass/Vol] 3 mg/dL Low 9-23 [facility] Comment on above: Performed By: #### B MP, DIFF CBC ####[place] [id number] [facility] Blood thiamine measurement ( moles/volume)Ordered By: Nicolasa Hull on 03-16-2022 Thiamine (Bld) [Moles/Vol] 109.4 nmol/L 66.5-200.0 [facility] Comment on above: This test was develo ped and its performance characteristicsdetermined by [facility]. It has not been cleared orapproved by the Food and Drug Administration.Performed at: [address] [id number] Director: Kush Wiseman MD, Phone: [phone] Diff and CBCon 03-16-2022 Anisocytosis Ql (Bld) Slight Normal Fir [facility] Comment on above: Performed By: #### B MP, DIFF CBC ####[address] Basophils/100 WBC (Bld) 1 % Normal 0-2 F [facility] Comment on above: Performed By: #### B MP, DIFF CBC ####[address] Eosinophils/100 WBC (Bld) 4 % High 1-3 [facility] Comment on above: Performed By: #### B MP, DIFF CBC ####[place] [id number] [facility] Erythrocyte distribution width (RBC) [Ratio] 15.8 % High 11.9-15.3 [facility] Comment on above: Performed By: #### B MP, DIFF CBC ####[place] [id number] [facility] Hematocrit (Bld) [Volume fraction] 24.2 % Low 34.0-46.4 [facility] Comment on above: Performed By: #### B MP, DIFF CBC ####[place] [id number] [facility] Hemoglobin (Bld) [Mass/Vol] 8.2 g/dL Low 11.8-15.4 [facility] Comment on above: Performed By: #### B MP, DIFF CBC ####[place] [id number] [facility] Lymphocytes/100 WBC (Bld) 18 % Normal 18-42 [facility] Comment on above: Performed By: #### B MP, DIFF CBC ####[address] MCH (RBC) [Entitic mass] 30.9 pg Normal 24.7-34.3 [facility] Comment on above: Performed By: #### B MP, DIFF CBC ####[address] MCV (RBC) [Entitic vol] 90.9 fL Normal 80-100 F [facility] Comment on above: Performed By: #### B MP, DIFF CBC ####[address] Mean Corpuscular HGB Conc 33.9 g/dL Normal 32.0-35.0 [facility] Comment on above: Performed By: #### B MP, DIFF CBC ####[address] Metamyelocytes 2 % High 0-0 [facility] Comment on above: Performed By: #### B MP, DIFF CBC ####[address] Monocytes/100 WBC (Bld) 8 % Normal 2-11 [facility] Comment on above: Performed By: #### B MP, DIFF CBC ####[address] Myelocytes 2 % High 0-0 [facility] Comment on above: Performed By: #### B MP, DIFF CBC ####[address] Platelet Estimate Normal Normal Normal [facility] Comment on above: Performed By: #### B MP, DIFF CBC ####[address] Platelet mean volume (Bld) [Entitic vol] 8.0 fL Normal 6.3-10.7 [facility] Comment on above: Result Comment: PERF ORMED BY:[place] [address] [place], [place] [phone] MEDICAL DIRECTORKIMBERLYN SINGER M.D. Performed By: #### B MP, DIFF CBC ####[place] [id number] [facility] Platelet Morphology Normal Normal Normal [facility] Comment on above: Result Comment: PERF ORMED BY:[address] RAMIREZVILLA [place], [place] [phone] MEDICAL DIRECTORKIMBERLYN SINGER M.D. Performed By: #### B MP, DIFF CBC ####[place] [id number] [facility] Platelets (Bld) [#/Vol] 223 10*3/uL Normal 150-450 [facility] Comment on above: Performed By: #### B MP, DIFF CBC ####[place] [id number] [facility] Polychromasia Slight Normal [facility] Comment on above: Performed By: #### B MP, DIFF CBC ####[address] [address] [facility] RBC (Bld) [#/Vol] 2.66 10*6/uL Low 3.60-5.[address] [facility] Comment on above: Performed By: #### B MP, DIFF CBC ####[place] [id number] [facility] Schistocytes Slight Normal [facility] Comment on above: Performed By: #### B MP, DIFF CBC ####[place] [id number] [facility] Segmented neutrophils/100 WBC (Bld) 65 % Normal 50-70 [facility] Comment on above: Performed By: #### B MP, DIFF CBC ####[place] [id number] [facility] WBC (Bld) [#/Vol] 5.5 10*3/uL Normal 3.8-11.6 [facility] Comment on above: Performed By: #### B MP, DIFF CBC ####[facility] [id number] [place] [address] [facility] Glucose Poct Glucometerson 1 05-17-2021 Commemt1 Glu2: Cleaned Meter [facility] Comment on above: Result Comment: PERF ORMED BY:[place] [address] [address] [place] [phone] MEDICAL DIRECTORKIMBERLYN SINGER M.D. Performed By: #### G LULS ####Point of Care testing, Glucose [Mass/Vol] 213 mg/dL Normal [facility] Comment on above: Result Comment: [place] om Glucose Reference Range is dependent on time and content of last meal. Glucose of more than 200 mg/dL in a nonstressed, ambulatory subject supports the diagnosis of Diabetes Mellitus. Performed By: #### G LULS ####Point of Care testing, Commemt1 Glu2: Cleaned Meter [facility] Comment on above: Performed By: #### G LULS ####Point of Care testing, Commemt2 [facility] Comment on above: Result Comment: PERF ORMED BY:[place] [address] [place], [place] [phone] MEDICAL DIRECTORKIMBERLYN SINGER M.D. Performed By: #### G LULS ####Point of Care testing, Glucose [Mass/Vol] 164 mg/dL Normal [facility] Comment on above: Result Comment: [place] om Glucose Reference Range is dependent on time and content of last meal. Glucose of more than 200 mg/dL in a nonstressed, ambulatory subject supports the diagnosis of Diabetes Mellitus. Performed By: #### G LULS ####Point of Care testing, Glucose [Mass/Vol] 272 mg/dL Normal [facility] Comment on above: Result Comment: [place] om Glucose Reference Range is dependent on time and content of last meal. Glucose of more than 200 mg/dL in a nonstressed, ambulatory subject supports the diagnosis of Diabetes Mellitus.PERFORMED BY:[place] [address] [address] [place] [phone] MEDICAL DIRECTORKIMBERLYN SINGER M.D. Performed By: #### G LULS ####Point of Care testing, No Panel InformationOrdered By: Wilian Pearson on 03-16-2022 Bedside Glucose #2 Comment Sliding scale covera [facility] Schistocytes [Presence] in B lood by Light microscopyOrdered By: Nicolasa Hull on 03-16-2022 Schistocytes LM Ql (Bld) Slight [facility] Vitamin B1 (Thiamine) Bloodo n 03-16-2022 Vitamin B1 (Thiamine) Blood 109.4 Normal 66.5-200.0 [facility] Comment on above: Result Comment: This test was developed and its performance characteristics determined by [employer]. It has not been cleared or approved by the Food and Drug Administration. Performed at: [facility] [address] [id number] Stringed Instrument Assembler: Kush Wiseman MD, Phone: [phone] BY:[place] [id number] [place] [place]AMAB[place]SW[place], [place] [phone] MEDICAL DIRECTORKIMBERLYN SINGER M.D. Performed By: #### V ITB1 ####[facility] , Body fluid albumin measureme nt (mass/volume)Ordered By: Wilian Pearson on 03-15-2022 Albumin (Body fld) [Mass/Vol] 2.1 g/dL 3.2-5.5 [facility] Comprehensive Metabolic Pane jeremy 03-15-2022 Albumin [Mass/Vol] 2.1 g/dL Low 3.2-5.5 [facility] Comment on above: Performed By: #### M Harper, CMP ####[facility] [id number] [place] [address] [facility] Albumin/Globulin [Mass ratio] 0.8 {ratio} Normal [facility] Comment on above: Performed By: #### M G, CMP ####[facility] Efi[address] [place] [address] [facility] ALP [Catalytic activity/Vol] 87 U/L Normal 32-92 [facility] Comment on above: Performed By: #### Rosemary Saleem, CMP ####[facility] [place] [address] [facility] ALT [Catalytic activity/Vol] 13 U/L Normal 10-60 [facility] Comment on above: Performed By: #### Rosemary Saleem, CMP ####[facility] [place] [address] [facility] Anion gap [Moles/Vol] 9.0 mmol/L Normal 6.0-15.0 [facility] Comment on above: Performed By: #### Rosemary Saleem, CMP ####[place] [address] [place] [address] [facility] AST [Catalytic activity/Vol] 13 U/L Normal 10-42 [facility] Comment on above: Performed By: #### Rosemary Saleem, CMP ####[place] [address] [place] [address] [facility] Bilirubin [Mass/Vol] 0.7 mg/dL Normal 0.3-1.2 [facility] Comment on above: Performed By: #### Rosemary Saleem, CMP ####[place] [address] [place] [address] [facility] Calcium [Mass/Vol] 7.7 mg/dL Low 8.2-10.2 [facility] Comment on above: Performed By: #### Rosemary Saleem, CMP ####[place] [address] [place] [address] [place] Chloride [Moles/Vol] 100 mmol/L Normal 95-114 [facility] Comment on above: Performed By: #### Rosemary Saleem, CMP ####[facility] [place] [address] [facility] CO2 [Moles/Vol] 26.3 mmol/L Normal 22.0-30.0 [facility] Comment on above: Performed By: #### Rosemary Saleem, CMP ####[facility] [place] [address] [facility] Creatinine [Mass/Vol] 0.61 mg/dL Normal 0.44-1.03 [facility] Comment on above: Performed By: #### Rosemary Saleem, CMP ####[facility] [place] [address] [facility] Creatinine Clr Calc Pharmacy 76.33 [facility] Comment on above: Performed By: #### M G, CMP ####[facility] [place] [address] [facility] Estimated GFR ( Brenda > 60 [facility] Comment on above: Result Comment: GFR estimated reference range: According to KDOQI guidelines, <60 ml/min/1.73m2 is sufficient to diagnose a patient with chronic kidney disease. Performed By: #### M G, CMP ####[address] [address] [facility] Estimated GFR (Non- Am > 60 [facility] Comment on above: Performed By: #### M Harper, CMP ####[address] [address] [facility] Globulin (S) [Mass/Vol] 2.8 g/dL Normal [facility] Comment on above: Performed By: #### M G, CMP ####[address] [address] [facility] Glucose [Mass/Vol] 151 mg/dL High 70-100 [facility] Comment on above: Result Comment: [place] Glucose Reference Range is dependent on time and content of last meal. Glucose of more than 200 mg/dL in a nonstressed, ambulatory subject supports the diagnosis of Diabetes Mellitus. ADA recommended reference range Performed By: #### M G, CMP ####[address] [address] [facility] Potassium [Moles/Vol] 3.3 mmol/L Low 3.5-5.1 [facility] Comment on above: Performed By: #### M G, CMP ####[address] [address] [facility] Protein [Mass/Vol] 4.9 g/dL Low 6.1-7.9 [facility] Comment on above: Performed By: #### M G, CMP ####[address] [address] [facility] Sodium [Moles/Vol] 132 mmol/L Low 136-146 [facility] Comment on above: Performed By: #### M Harper, CMP ####[address] Urea nitrogen [Mass/Vol] 4 mg/dL Low 9-23 [facility] Comment on above: Performed By: #### M G, CMP ####[address] Diff and CBCon 03-15-2022 Anisocytosis Ql (Bld) Slight Normal [facility] Comment on above: Performed By: #### P ATH SLIDE REV, DIFF CBC ####[address] Eosinophils/100 WBC (Bld) 2 % Normal 1-3 [facility] Comment on above: Performed By: #### P ATH SLIDE REV, DIFF CBC ####[address] Erythrocyte distribution width (RBC) [Ratio] 16.4 % High 11.9-15.3 [facility] Comment on above: Performed By: #### P ATH SLIDE REV, DIFF CBC ####[address] Giant Platelet Tally 3 /100{WBC} Normal [facility] Comment on above: Performed By: #### P ATH SLIDE REV, DIFF CBC ####[address] Hematocrit (Bld) [Volume fraction] 22.6 % Low 34.0-46.4 [facility] Comment on above: Performed By: #### P ATH SLIDE REV, DIFF CBC ####[address] Hemoglobin (Bld) [Mass/Vol] 7.7 g/dL Low 11.8-15.4 [facility] Comment on above: Performed By: #### P ATH SLIDE REV, DIFF CBC ####[address] Lymphocytes/100 WBC (Bld) 16 % Low 18-42 [facility] Comment on above: Performed By: #### P ATH SLIDE REV, DIFF CBC ####[address] MCH (RBC) [Entitic mass] 30.6 pg Normal 24.7-34.3 [facility] Comment on above: Performed By: #### P ATH SLIDE REV, DIFF CBC ####[address] MCV (RBC) [Entitic vol] 90.2 fL Normal 80-100 [facility] Comment on above: Performed By: #### P ATH SLIDE REV, DIFF CBC ####[address] Mean Corpuscular HGB Conc 33.9 g/dL Normal 32.0-35.0 [facility] Comment on above: Performed By: #### P ATH SLIDE REV, DIFF CBC ####[address] Metamyelocytes 4 % High 0-0 [facility] Comment on above: Performed By: #### P ATH SLIDE REV, DIFF CBC ####[address] Microcytosis Slight Normal [facility] Comment on above: Performed By: #### P ATH SLIDE REV, DIFF CBC ####[address] Monocytes/100 WBC (Bld) 10 % Normal 2-11 [facility] Comment on above: Performed By: #### P ATH SLIDE REV, DIFF CBC ####[address] Myelocytes 6 % High 0-0 [facility] Comment on above: Performed By: #### P ATH SLIDE REV, DIFF CBC ####[address] Platelet Estimate Normal Normal Normal [facility] Comment on above: Performed By: #### P ATH SLIDE REV, DIFF CBC ####[place] [id number] [facility] Platelet mean volume (Bld) [Entitic vol] 8.2 fL Normal 6.3-10.7 [facility] Comment on above: Performed By: #### P ATH SLIDE REV, DIFF CBC ####[address] [address] [facility] Platelet Morphology Normal Normal Normal [facility] Comment on above: Result Comment: PERF ORMED BY:[address] [place], [place] [phone] MEDICAL DIRECTORKIMBERLYN SINGER M.D. Performed By: #### P ATH SLIDE REV, DIFF CBC ####[place] [id number] [facility] Platelets (Bld) [#/Vol] 214 10*3/uL Normal 150-450 [facility] Comment on above: Performed By: #### P ATH SLIDE REV, DIFF CBC ####[address] Polychromasia Slight Normal [facility] Comment on above: Performed By: #### P ATH SLIDE REV, DIFF CBC ####[address] RBC (Bld) [#/Vol] 2.50 10*6/uL Low 3.60-5.[address] [facility] Comment on above: Performed By: #### P ATH SLIDE REV, DIFF CBC ####[place] [id number] [facility] Segmented neutrophils/100 WBC (Bld) 63 % Normal 50-70 [facility] Comment on above: Performed By: #### P ATH SLIDE REV, DIFF CBC ####[place] [id number] [facility] WBC (Bld) [#/Vol] 4.6 10*3/uL Normal 3.8-11.6 [facility] Comment on above: Performed By: #### P ATH SLIDE REV, DIFF CBC ####[address] [place] [address] [facility] Folate [Mass/volume] in Seru m or PlasmaOrdered By: Lea Judd on 03-15-2022 Folate [Mass/Vol] 15.0 ng/mL >5.9 [facility] Comment on above: Folate reference ran ge: >5.9 ng/mlThe WHO technical consultation on folate and vitamin [id number] has determined that folate concentrations lessthan 4 ng/ml are considered deficient. Globulin Calc (S) [Mass/Vol] Ordered By: Wilian Pearson on 03-15-2022 Globulin (S) [Mass/Vol] 2.8 g/dL F [facility] Glucose Poct Glucometerson 1 05-16-2021 Commemt1 Glu2: Cleaned Meter [facility] Comment on above: Result Comment: PERF ORMED BY:[address] [place], [place] [phone] MEDICAL DIRECTORKIMBERLYN SINGER M.D. Performed By: #### G LULS ####Point of Care testing, Glucose [Mass/Vol] 206 mg/dL Normal [facility] Comment on above: Result Comment: [facility] Glucose Reference Range is dependent on time and content of last meal. Glucose of more than 200 mg/dL in a nonstressed, ambulatory subject supports the diagnosis of Diabetes Mellitus. Performed By: #### G LULS ####Point of Care testing, Glucose [Mass/Vol] 186 mg/dL Normal [facility] Comment on above: Result Comment: [facility] Glucose Reference Range is dependent on time and content of last meal. Glucose of more than 200 mg/dL in a nonstressed, ambulatory subject supports the diagnosis of Diabetes Mellitus.PERFORMED BY:[place] [address] [place], [place] [phone] MEDICAL ANDRE SINGER M.D. Performed By: #### G LULS ####Point of Care testing, Commemt1 Glu2: Cleaned Meter Normal [facility] Comment on above: Result Comment: PERF ORMED BY:[place] [address] [address] HUIZARTeeteeRASHAUNVILLA [place], [place] [phone] MEDICAL DIRECTORKIMBERLYN SINGER M.D. Performed By: #### G LULS ####Point of Care testing, Glucose [Mass/Vol] 184 mg/dL Normal [facility] Comment on above: Result Comment: [place] Glucose Reference Range is dependent on time and content of last meal. Glucose of more than 200 mg/dL in a nonstressed, ambulatory subject supports the diagnosis of Diabetes Mellitus. Performed By: #### G LULS ####Point of Care testing, Commemt1 Glu2: Cleaned Meter Normal [facility] Comment on above: Result Comment: PERF ORMED BY:[address] [address] [address] [place], [place] [phone] MEDICAL DIRECTORKIMBERLYN SINGER M.D. Performed By: #### G LULS ####Point of Care testing, Glucose [Mass/Vol] 169 mg/dL Normal [facility] Comment on above: Result Comment: [place] [facility] Glucose Reference Range is dependent on time and content of last meal. Glucose of more than 200 mg/dL in a nonstressed, ambulatory subject supports the diagnosis of Diabetes Mellitus. Performed By: #### G LULS ####Point of Care testing, Jeremy 03-15-2022 L Normal [facility] Laboratory - Chemistry and C hemistry - challengeOrdered By: Lea Judd on 03-15-2022 Cobalamin (Vitamin B12) [Mass/Vol] 391 pg/mL 180-914 [facility] - Chemistry and C hemistry - challengeOrdered By: Nicolasa Hull on 03-15-2022 Magnesium [Mass/Vol] 1.7 mg/dL 1.6-2.6 [facility] Magnesiumon 03-15-2022 Magnesium [Mass/Vol] 1.7 mg/dL Normal 1.6-2.6 [facility] Comment on above: Result Comment: PERF ORMED BY:[address] [address] [place] [place], [place] [phone] MEDICAL DIRECTORKIMBERLYN SINGER M.D. Performed By: #### M G, CMP ####[facility] [address] [place] [address] [place] Microcytes LM Ql (Bld)Ordere d By: Wilian Pearson on 03-15-2022 Microcytes Ql (Bld) Slight [facility] No Panel InformationOrdered By: Wilian Pearson on 03-15-2022 Slides for Pathologist Review Ordered path review [facility] Pathologist Slide Reviewon 1 05-16-2021 Pathologist Slide Review Ordered Path Review Normal [facility] Comment on above: Result Comment: PERF ORMED BY:[place] [address] [place], [place] [phone] MEDICAL DIRECTORKIMBERLYN SINGER M.D. Performed By: #### P ATH SLIDE REV, DIFF CBC ####[facility] [address] [place] [address] [facility] Protein [Mass/volume] in Ser um or PlasmaOrdered By: Wilian Pearson on 03-15-2022 Protein [Mass/Vol] 4.9 g/dL 6.1-7.9 [facility] Serum or plasma alanine larsen otransferase measurement without P-5'-P (enzymatic activiOrdered By: Wilian Pearson on 03-15-2022 ALT No additional P-5'-P [Catalytic activity/Vol] 13 U/L 10-60 [facility] Serum or plasma albumin/glob ulin mass ratioOrdered By: Wilian Pearson on 03-15-2022 Albumin/Globulin [Mass ratio] 0.8 {ratio} [facility] Serum or plasma alkaline ventura sphatase measurement (enzymatic activity/volume)Ordered By: Wilian Pearson on 03-15-2022 ALP [Catalytic activity/Vol] 87 U/L 32-92 [facility] Serum or plasma aspartate am inotransferase measurement (enzymatic activity/volume)Ordered By: Wilian Pearson on 03-15-2022 AST [Catalytic activity/Vol] 13 U/L 10-42 [facility] Serum or plasma total biliru bin measurement (mass/volume)Ordered By: Wilian Pearson on 03-15-2022 Bilirubin [Mass/Vol] 0.7 mg/dL 0.3-1.2 [facility] Vit. B12/Folate Profileon Cobalamin (Vitamin B12) [Mass/Vol] 391 pg/mL Normal 180-914 [facility] Comment on above: Performed By: #### V [id number] ####[address] [address] [facility] Folate 15.0 ng/mL Normal >5.9 [facility] Comment on above: Result Comment: Beatriz te reference range: >5.9 ng/ml The WHO technical consultation on folate and vitamin b12 deficiencies has determined that folate concentrations less than 4 ng/ml are considered deficient.PERFORMED BY:[address] [place], [place] [phone] MEDICAL DIRECTORKIMBERLYN SINGER M.D. Performed By: #### V [id number] ####[address] [address] [facility] Basic Metabolic Panelon Anion gap [Moles/Vol] 8.7 mmol/L Normal 6.0-15.0 [facility] Comment on above: Performed By: #### Rosemary Saleem, BMP ####[address] [address] [facility] Calcium [Mass/Vol] 7.5 mg/dL Low 8.2-10.2 [facility] Comment on above: Performed By: #### Rosemary Saleem, BMP ####[address] [address] [facility] Chloride [Moles/Vol] 97 mmol/L Normal 95-114 [facility] Comment on above: Performed By: #### M Harper, BMP ####[place] [address] [place] [address] [facility] CO2 [Moles/Vol] 26.7 mmol/L Normal 22.0-30.0 [facility] Comment on above: Performed By: #### Rosemary Saleem, BMP ####[place] [address] [place] [address] [facility] Creatinine [Mass/Vol] 0.62 mg/dL Normal 0.44-1.03 [facility] Comment on above: Performed By: #### M Harper, BMP ####[place] [address] [place] [address] [facility] Creatinine Clr Calc Pharmacy 76.33 [facility] Comment on above: Performed By: #### Rosemary Saleem, BMP ####[address] [address] [facility] Estimated GFR ( Brenda > 60 [facility] Comment on above: Result Comment: GFR estimated reference range: According to KDOQI guidelines, <60 ml/min/1.73m2 is sufficient to diagnose a patient with chronic kidney disease. Performed By: #### Rosemary Saleem, BMP ####[address] [address] [facility] Estimated GFR (Non- Am > 60 [facility] Comment on above: Performed By: #### Rosemary Saleem, BMP ####[address] [address] [facility] Glucose [Mass/Vol] 144 mg/dL High 70-100 [facility] Comment on above: Result Comment: [place] [facility] Glucose Reference Range is dependent on time and content of last meal. Glucose of more than 200 mg/dL in a nonstressed, ambulatory subject supports the diagnosis of Diabetes Mellitus. ADA recommended reference range Performed By: #### Rosemary Saleem, BMP ####[address] [address] [facility] Potassium [Moles/Vol] 3.4 mmol/L Low 3.5-5.1 [facility] Comment on above: Performed By: #### Rosemary Saleem, BMP ####[address] [address] [facility] Sodium [Moles/Vol] 129 mmol/L Low 136-146 [facility] Comment on above: Performed By: #### M G, BMP ####[address] [address] [facility] Urea nitrogen [Mass/Vol] 7 mg/dL Low 9-23 [facility] Comment on above: Performed By: #### M G, BMP ####[facility] [address] [place] [address] [facility] ECG 12 lead ECGon 03-14-2022 ECG 12 lead ECG Normal [facility] Fecal occult blood detection by immunochemistryOrdered By: Rachel Persaud on 03-14-2022 Hemoglobin.gastrointest inal Ql (Stl) [facility] Glucose Poct Glucometerson 1 05-15-2021 Glucose [Mass/Vol] 219 mg/dL Normal [facility] Comment on above: Result Comment: [facility] Glucose Reference Range is dependent on time and content of last meal. Glucose of more than 200 mg/dL in a nonstressed, ambulatory subject supports the diagnosis of Diabetes Mellitus.PERFORMED BY:[place] [address] [address] [place], [place] [phone] MEDICAL DIRECTORKIMBERLYN SINGER M.D. Performed By: #### G LULS ####Point of Care testing, Glucose [Mass/Vol] 208 mg/dL Normal [facility] Comment on above: Result Comment: [facility] Glucose Reference Range is dependent on time and content of last meal. Glucose of more than 200 mg/dL in a nonstressed, ambulatory subject supports the diagnosis of Diabetes Mellitus.PERFORMED BY:[place] [address] [address] [place]ERYV[place], [place] [phone] MEDICAL DIRECTORKIMBERLYN SINGER M.D. Performed By: #### G LULS ####Point of Care testing, Commemt1 Glu2: Cleaned Meter Normal [facility] Comment on above: Result Comment: PERF ORMED BY:[place] [address] [address] HUSSEINUSKYVILLA [place], [place] [phone] MEDICAL ANDRE SINGER M.D. Performed By: #### G LULS ####Point of Care testing, Glucose [Mass/Vol] 191 mg/dL Normal [facility] Comment on above: Result Comment: [facility] Glucose Reference Range is dependent on time and content of last meal. Glucose of more than 200 mg/dL in a nonstressed, ambulatory subject supports the diagnosis of Diabetes Mellitus. Performed By: #### G LULS ####Point of Care testing, Commemt1 Glu2: Cleaned Meter Normal [facility] Comment on above: Result Comment: PERF ORMED BY:[place] [address] [address] BALDERRAMARASHAUNVILLA RIDGE, [place] [phone] MEDICAL DIRECTORKIMBERLYN SINGER M.D. Performed By: #### G LULS ####Point of Care testing, Glucose [Mass/Vol] 171 mg/dL Normal [facility] Comment on above: Result Comment: [place] Glucose Reference Range is dependent on time and content of last meal. Glucose of more than 200 mg/dL in a nonstressed, ambulatory subject supports the diagnosis of Diabetes Mellitus. Performed By: #### G LULS ####Point of Care testing, Magnesiumon 03-14-2022 Magnesium [Mass/Vol] 1.7 mg/dL Normal 1.6-2.6 [facility] Comment on above: Result Comment: PERF ORMED BY:[address] HUIZARTeeteeRASHAUNVILLA [place]ID[place], [place] [phone] MEDICAL DIRECTORKIMBERLYN SINGER M.D. Performed By: #### M Harper, BMP ####[place] [address] [place] [address] [facility] Stool Occult Blood (Guaiac)o n 03-14-2022 Stool Occult Blood (Guaiac) [facility] Comment on above: Performed By: #### O B(GUAIAC) ####[address] [address] [facility] Comprehensive Metabolic Pane jeremy 03-13-2022 Albumin [Mass/Vol] 2.2 g/dL Low 3.2-5.5 [facility] Comment on above: Performed By: #### M G, PHOS, CMP ####[address] [address] [facility] Albumin/Globulin [Mass ratio] 0.8 {ratio} [facility] Comment on above: Performed By: #### PETAR Mcdaniel, CMP ####[place] [address] [place] [address] [facility] ALP [Catalytic activity/Vol] 90 U/L Normal 32-92 [facility] Comment on above: Performed By: #### VENTURA McdanielS, CMP ####[place] [address] [place] [address] [facility] ALT [Catalytic activity/Vol] 14 U/L Normal 10-60 [facility] Comment on above: Performed By: #### PETAR Mcdaniel, CMP ####[place] [address] [place] [address] [facility] Anion gap [Moles/Vol] 9.1 mmol/L Normal 6.0-15.0 [facility] Comment on above: Performed By: #### PETAR Mcdaniel, CMP ####[address] [address] [facility] AST [Catalytic activity/Vol] 15 U/L Normal 10-42 [facility] Comment on above: Performed By: #### PETAR Mcdaniel, CMP ####[address] [address] [facility] Bilirubin [Mass/Vol] 0.8 mg/dL Normal 0.3-1.2 [facility] Comment on above: Performed By: #### PETAR Mcdaniel, CMP ####[address] [address] [facility] Calcium [Mass/Vol] 7.6 mg/dL Low 8.2-10.2 [facility] Comment on above: Performed By: #### PETAR Mcdaniel, CMP ####[place] [place] [address] [facility] Chloride [Moles/Vol] 97 mmol/L Normal 95-114 [facility] Comment on above: Performed By: #### VENTURA McdanielS, CMP ####[facility] [address] [place] [address] [facility] CO2 [Moles/Vol] 29.1 mmol/L Normal 22.0-30.0 [facility] Comment on above: Performed By: #### PETAR Mcdaniel CMP ####[address] Creatinine [Mass/Vol] 0.64 mg/dL Normal 0.44-1.03 [facility] Comment on above: Performed By: #### PETAR Mcdaniel CMP ####[address] Creatinine Clr Calc Pharmacy 75.60 [facility] Comment on above: Performed By: #### PETAR Mcdaniel CMP ####[address] Estimated GFR ( Brenda > 60 [facility] Comment on above: Result Comment: GFR estimated reference range: According to KDOQI guidelines, <60 ml/min/1.73m2 is sufficient to diagnose a patient with chronic kidney disease. Performed By: #### PETAR Mcdaniel CMP ####[address] Estimated GFR (Non- Am > 60 [facility] Comment on above: Performed By: #### PETAR Mcdaniel CMP ####[address] Globulin (S) [Mass/Vol] 2.7 g/dL Normal [facility] Comment on above: Performed By: #### PETAR Mcdaniel CMP ####[address] Glucose [Mass/Vol] 118 mg/dL High 70-100 [facility] Comment on above: Result Comment: [place] om Glucose Reference Range is dependent on time and content of last meal. Glucose of more than 200 mg/dL in a nonstressed, ambulatory subject supports the diagnosis of Diabetes Mellitus. ADA recommended reference range Performed By: #### PETAR Mcdaniel CMP ####[address] Protein [Mass/Vol] 4.9 g/dL Low 6.1-7.9 [facility] Comment on above: Performed By: #### M PETAR Saleem, CMP ####[facility] [address] [place] [id number] [facility] Sodium [Moles/Vol] 132 mmol/L Low 136-146 [facility] Comment on above: Performed By: #### M VENTURA SaleemS, CMP ####[facility] [address] [place] [address] [facility] Urea nitrogen [Mass/Vol] 13 mg/dL Normal 9-23 [facility] Comment on above: Performed By: #### M PETAR Saleem, CMP ####[facility] [address] [place] [id number] [facility] ECG 12 lead ECGon 03-13-2022 ECG 12 lead ECG Normal [facility] Glucose Poct Glucometerson 1 05-14-2021 Glucose [Mass/Vol] 288 mg/dL Normal [facility] Comment on above: Result Comment: [facility] Glucose Reference Range is dependent on time and content of last meal. Glucose of more than 200 mg/dL in a nonstressed, ambulatory subject supports the diagnosis of Diabetes Mellitus.PERFORMED BY:[address] [place], [place] [phone] MEDICAL ANDRE SINGER M.D. Performed By: #### G LULS ####Point of Care testing, Glucose [Mass/Vol] 142 mg/dL Normal [facility] Comment on above: Result Comment: [facility] Glucose Reference Range is dependent on time and content of last meal. Glucose of more than 200 mg/dL in a nonstressed, ambulatory subject supports the diagnosis of Diabetes Mellitus.PERFORMED BY:[address] MARILYNHaroonTeeteeRASHA[place], [place] [phone] MEDICAL ANDRE SINGER M.D. Performed By: #### G LULS ####Point of Care testing, Glucose [Mass/Vol] 143 mg/dL Normal [facility] Comment on above: Result Comment: [facility] Glucose Reference Range is dependent on time and content of last meal. Glucose of more than 200 mg/dL in a nonstressed, ambulatory subject supports the diagnosis of Diabetes Mellitus.PERFORMED BY:[address] [address] [address] BALDERRAMARASHAUNVILLA [place], [place] [phone] MEDICAL DIRECTORKIMBERLYN SINGER M.D. Performed By: #### G LULS ####Point of Care testing, Glucose [Mass/Vol] 138 mg/dL Normal [facility] Comment on above: Result Comment: [facility] Glucose Reference Range is dependent on time and content of last meal. Glucose of more than 200 mg/dL in a nonstressed, ambulatory subject supports the diagnosis of Diabetes Mellitus.PERFORMED BY:[address] [place], [place] [phone] MEDICAL DIRECTORKIMBERLYN SINGER M.D. Performed By: #### G LULS ####Point of Care testing, Hypochromia LM Ql (Bld)Order ed By: Denice Buckner on 03-13-2022 Hypochromia Ql (Bld) Slight [facility] Magnesiumon 03-13-2022 Magnesium [Mass/Vol] 1.6 mg/dL Normal 1.6-2.6 [facility] Comment on above: Result Comment: PERF ORMED BY:[address] [address] [address] [place], [place] [phone] MEDICAL DIRECTORKIMBERLYN SINGER M.D. Performed By: #### M PETAR Saleem, CMP ####[address] [address] [facility] Ovalocyte detectionOrdered B y: Denice Buckner on 03-13-2022 Ovalocytes LM Ql (Bld) Slight [facility] Phosphate [Mass/volume] in S roxy or PlasmaOrdered By: Nicolasa Hull on 03-13-2022 Phosphate [Mass/Vol] 3.0 mg/dL 2.5-4.6 [facility] Phosphoruson 03-13-2022 Phosphate [Mass/Vol] 3.0 mg/dL Normal 2.5-4.6 [facility] Comment on above: Performed By: #### M Harper PHOS, CMP ####[address] Poikilocytosis [Presence] in Blood by Light microscopyOrdered By: Denice Buckner on 03-13-2022 Poikilocytosis LM Ql (Bld) Slight [facility] Potassiumon 03-13-2022 Potassium [Moles/Vol] 3.2 mmol/L Low 3.5-5.1 [facility] Comment on above: Order Comment: rn sa id retime for about 4 hours RN TO CALL TO LET US KNOW WHEN IT'S DONE TO RETIME PSW 2012 Result Comment: PERF ORMED BY:[address] [place], [place] [phone] MEDICAL DIRECTORKIMBERLYN SINGER M.D. Performed By: #### K ####[address] Performed By: #### M PETAR Saleem, CMP ####[address] Scan and CBCon 03-13-2022 Anisocytosis Ql (Bld) Moderate Normal [facility] Comment on above: Performed By: #### S CAN CBC ####[address] Basophils (Bld) [#/Vol] 0.0 10*3/uL Normal 0.0-0.2 [facility] Comment on above: Performed By: #### S CAN CBC ####[address] Basophils/100 WBC (Bld) 0.4 % Normal . [facility] Comment on above: Performed By: #### S CAN CBC ####[address] Eosinophils (Bld) [#/Vol] 0.3 10*3/uL Normal 0.0-0.45 [facility] Comment on above: Performed By: #### S CAN CBC ####[address] Eosinophils/100 WBC (Bld) 3.8 % Normal . [facility] Comment on above: Performed By: #### S CAN CBC ####[address] Erythrocyte distribution width (RBC) [Ratio] 16.1 % High 11.9-15.3 [facility] Comment on above: Performed By: #### S CAN CBC ####[address] Hematocrit (Bld) [Volume fraction] 24.0 % Low 34.0-46.4 [facility] Comment on above: Performed By: #### S CAN CBC ####[address] Hemoglobin (Bld) [Mass/Vol] 8.1 g/dL Low 11.8-15.4 [facility] Comment on above: Performed By: #### S CAN CBC ####[address] Hypochromasia Slight Normal [facility] Comment on above: Performed By: #### S CAN CBC ####[address] Lymphocytes (Bld) [#/Vol] 1.8 10*3/uL Normal 1.00-4.8 [facility] Comment on above: Performed By: #### S CAN CBC ####[address] Lymphocytes/100 WBC (Bld) 26.6 % Normal . [facility] Comment on above: Performed By: #### S CAN CBC ####[address] MCH (RBC) [Entitic mass] 30.5 pg Normal 24.7-34.3 [facility] Comment on above: Performed By: #### S CAN CBC ####[address] MCV (RBC) [Entitic vol] 90.1 fL Normal 80-100 [facility] Comment on above: Performed By: #### S CAN CBC ####[address] [address] [facility] Mean Corpuscular HGB Conc 33.8 g/dL Normal 32.0-35.0 [facility] Comment on above: Performed By: #### S CAN CBC ####[address] [address] [facility] Microcytosis Moderate Normal [facility] Comment on above: Performed By: #### S CAN CBC ####[place] [id number] [facility] Monocytes (Bld) [#/Vol] 0.7 10*3/uL Normal 0.0-0.8 [facility] Comment on above: Performed By: #### S CAN CBC ####[place] [id number] [facility] Monocytes/100 WBC (Bld) 10.8 % Normal . [facility] Comment on above: Performed By: #### S CAN CBC ####[place] [id number] [facility] Neutrophils (Bld) [#/Vol] 4.1 10*3/uL Normal 1.8-7.7 [facility] Comment on above: Performed By: #### S CAN CBC ####[place] [id number] [facility] Neutrophils/100 WBC (Bld) 58.4 % Normal . [facility] Comment on above: Performed By: #### S CAN CBC ####[address] [address] [facility] NRBC% 0.3 /100{WBC} Normal 0-0.5 [facility] Comment on above: Performed By: #### S CAN CBC ####[address] [address] [facility] Ovalocytes Slight Normal [facility] Comment on above: Performed By: #### S CAN CBC ####[place] [id number] [facility] Platelet Estimate Normal Normal Normal [facility] Comment on above: Performed By: #### S CAN CBC ####[address] [address] [facility] Platelet mean volume (Bld) [Entitic vol] 8.3 fL Normal 6.3-10.7 [facility] Comment on above: Performed By: #### S CAN CBC ####[address] [address] [facility] Platelet Morphology Normal Normal Normal [facility] Comment on above: Result Comment: PERF ORMED BY:[address] [place], [place] [phone] MEDICAL ANDRE SINGER M.D. Performed By: #### S CAN CBC ####[place] [id number] [facility] Platelets (Bld) [#/Vol] 205 10*3/uL Normal 150-450 [facility] Comment on above: Performed By: #### S CAN CBC ####[place] [id number] [facility] Poikilocytosis Slight Normal [facility] Comment on above: Performed By: #### S CAN CBC ####[place] [id number] [facility] Polychromasia Slight Normal [facility] Comment on above: Performed By: #### S CAN CBC ####[place] [id number] [facility] RBC (Bld) [#/Vol] 2.67 10*6/uL Low 3.60-5.[address] [facility] Comment on above: Performed By: #### S CAN CBC ####[address] [address] [facility] WBC (Bld) [#/Vol] 6.9 10*3/uL Normal 3.8-11.6 [facility] Comment on above: Performed By: #### S CAN CBC ####[place] [id number] [facility] ABO/Rh Retypeon 03-12-2022 ABO/RH Recheck Result Positive Normal [facility] Comment on above: Result Comment: PERF ORMED BY:[facility] [place], [place] [phone] MEDICAL DIRECTORKIMBERLYN SINGER M.D. CT abdomen pelvis w conon CT abdomen pelvis w con Normal F [facility] Comprehensive Metabolic Pane jeremy 03-12-2022 Albumin [Mass/Vol] 2.3 g/dL Low 3.2-5.5 [facility] Comment on above: Performed By: #### C MP ####[place] [address] [place] [address] [facility] Albumin/Globulin [Mass ratio] 0.9 {ratio} Normal [facility] Comment on above: Performed By: #### C MP ####[place] [address] [place] [address] [facility] ALP [Catalytic activity/Vol] 101 U/L High 32-92 [facility] Comment on above: Performed By: #### C MP ####[place] [address] [place] [address] [facility] ALT [Catalytic activity/Vol] 17 U/L Normal 10-60 [facility] Comment on above: Performed By: #### C MP ####[place] [address] [place] [address] [facility] Anion gap [Moles/Vol] 12.4 mmol/L Normal 6.0-15.0 [facility] Comment on above: Performed By: #### C MP ####[facility] [place] [address] [facility] AST [Catalytic activity/Vol] 15 U/L Normal 10-42 [facility] Comment on above: Performed By: #### C MP ####[place] [address] [place] [address] [facility] Bilirubin [Mass/Vol] 0.6 mg/dL Normal 0.3-1.2 [facility] Comment on above: Performed By: #### C MP ####[place] [address] [place] [address] [facility] Calcium [Mass/Vol] 7.9 mg/dL Low 8.2-10.2 [facility] Comment on above: Performed By: #### C MP ####[place] [id number] [facility] Chloride [Moles/Vol] 91 mmol/L Low 95-114 [facility] Comment on above: Performed By: #### C MP ####[place] [id number] [facility] CO2 [Moles/Vol] 30.5 mmol/L High 22.0-30.0 [facility] Comment on above: Performed By: #### C MP ####[place] [id number] [facility] Creatinine [Mass/Vol] 0.63 mg/dL Normal 0.44-1.03 [facility] Comment on above: Performed By: #### C MP ####[place] [id number] [facility] Creatinine Clr Calc Pharmacy 77.02 [facility] Comment on above: Result Comment: PERF ORMED BY:[address] [place], [place] [phone] MEDICAL ANDRE SINGER M.D. Performed By: #### C MP ####[place] [id number] [facility] Estimated GFR ( Brenda > 60 [facility] Comment on above: Result Comment: GFR estimated reference range: According to KDOQI guidelines, <60 ml/min/1.73m2 is sufficient to diagnose a patient with chronic kidney disease. Performed By: #### C MP ####[place] [id number] [facility] Estimated GFR (Non- Am > 60 [facility] Comment on above: Performed By: #### C MP ####[place] [id number] [facility] Globulin (S) [Mass/Vol] 2.7 g/dL Normal [facility] Comment on above: Performed By: #### C MP ####[place] [address] [place] [address] [facility] Glucose [Mass/Vol] 156 mg/dL High 70-100 [facility] Comment on above: Result Comment: [place] Glucose Reference Range is dependent on time and content of last meal. Glucose of more than 200 mg/dL in a nonstressed, ambulatory subject supports the diagnosis of Diabetes Mellitus. ADA recommended reference range Performed By: #### C MP ####[address] [address] [facility] Potassium [Moles/Vol] 2.9 mmol/L Off scale low 3.5-5.1 [facility] Comment on above: Result Comment: Resu lts called at 0717 on 03/12/22 Performed By: #### C MP ####[address] [address] [facility] Protein [Mass/Vol] 5.0 g/dL Low 6.1-7.9 [facility] Comment on above: Performed By: #### C MP ####[address] [address] [facility] Sodium [Moles/Vol] 131 mmol/L Low 136-146 [facility] Comment on above: Performed By: #### C MP ####[address] [address] [facility] Urea nitrogen [Mass/Vol] 13 mg/dL Normal 9-23 [facility] Comment on above: Performed By: #### C MP ####[address] [address] [place] Diff and CBCon 03-12-2022 Anisocytosis Ql (Bld) Slight Normal [facility] Comment on above: Performed By: #### D IFF CBC ####[address] [address] [place] Eosinophils/100 WBC (Bld) 1 % Normal 1-3 [facility] Comment on above: Performed By: #### D IFF CBC ####[address] [place] [address] [place] Erythrocyte distribution width (RBC) [Ratio] 14.2 % Normal 11.9-15.3 [facility] Comment on above: Performed By: #### D IFF CBC ####[address] Hematocrit (Bld) [Volume fraction] 21.1 % Low 34.0-46.4 [facility] Comment on above: Performed By: #### D IFF CBC ####[address] Hemoglobin (Bld) [Mass/Vol] 7.1 g/dL Low 11.8-15.4 [facility] Comment on above: Performed By: #### D IFF CBC ####[address] Lymphocytes/100 WBC (Bld) 24 % Normal 18-42 [facility] Comment on above: Performed By: #### D IFF CBC ####[address] MCH (RBC) [Entitic mass] 31.1 pg Normal 24.7-34.3 [facility] Comment on above: Performed By: #### D IFF CBC ####[address] MCV (RBC) [Entitic vol] 93.2 fL Normal 80-100 F [facility] Comment on above: Performed By: #### D IFF CBC ####[address] Mean Corpuscular HGB Conc 33.4 g/dL Normal 32.0-35.0 [facility] Comment on above: Performed By: #### D IFF CBC ####[address] Metamyelocytes 1 % High 0-0 [facility] Comment on above: Performed By: #### D IFF CBC ####[address] Monocytes/100 WBC (Bld) 6 % Normal 2-11 F [facility] Comment on above: Performed By: #### D IFF CBC ####[place] [address] [place] [address] [facility] Myelocytes 3 % High 0-0 [facility] Comment on above: Performed By: #### D IFF CBC ####[place] [address] [place] [address] [facility] Platelet Estimate Normal Normal Normal [facility] Comment on above: Performed By: #### D IFF CBC ####[facility] [address] [place] [address] [facility] Platelet mean volume (Bld) [Entitic vol] 8.7 fL Normal 6.3-10.7 [facility] Comment on above: Result Comment: PERF ORMED BY:[address] [place] [place], [place] [phone] MEDICAL DIRECTORKIMBERLYN SINGER M.D. Performed By: #### D IFF CBC ####[address] [address] [facility] Platelet Morphology Normal Normal Normal [facility] Comment on above: Result Comment: PERF ORMED BY:[address] [place], [place] [phone] MEDICAL DIRECTORKIMBERLYN SINGER M.D. Performed By: #### D IFF CBC ####[address] [address] [facility] Platelets (Bld) [#/Vol] 299 10*3/uL Normal 150-450 [facility] Comment on above: Performed By: #### D IFF CBC ####[address] [address] [facility] Polychromasia Slight Normal [facility] Comment on above: Performed By: #### D IFF CBC ####[address] [address] [facility] RBC (Bld) [#/Vol] 2.26 10*6/uL Low 3.60-5.[address] [facility] Comment on above: Performed By: #### D IFF CBC ####[facility] [address] [place] [address] [facility] Segmented neutrophils/100 WBC (Bld) 66 % Normal 50-70 [facility] Comment on above: Performed By: #### D IFF CBC ####[facility] [address] [place] [address] [facility] WBC (Bld) [#/Vol] 11.7 10*3/uL High 3.8-11.[address] [facility] Comment on above: Performed By: #### D IFF CBC ####[place] [address] [place] [address] [facility] ECG 12 lead ECGon 03-12-2022 ECG 12 lead ECG Normal [facility] ECH echo transthoracicon ECH echo transthoracic Normal [facility] Glucose Poct Glucometerson 1 05-13-2021 Commemt1 Glu2: Cleaned Meter Normal [facility] Comment on above: Result Comment: PERF ORMED BY:[place] [address] [address] [place], [place] [phone] MEDICAL DIRECTORKIMBERLYN SINGER M.D. Performed By: #### G LUTHAI ####Point of Care testing, Glucose [Mass/Vol] 187 mg/dL Normal [facility] Comment on above: Result Comment: [place] Glucose Reference Range is dependent on time and content of last meal. Glucose of more than 200 mg/dL in a nonstressed, ambulatory subject supports the diagnosis of Diabetes Mellitus. Performed By: #### G LULS ####Point of Care testing, Glucose [Mass/Vol] 169 mg/dL Normal [facility] Comment on above: Result Comment: [place] Glucose Reference Range is dependent on time and content of last meal. Glucose of more than 200 mg/dL in a nonstressed, ambulatory subject supports the diagnosis of Diabetes Mellitus.PERFORMED BY:[place] [address] [address] [place], [place] [phone] MEDICAL DIRECTORKIMBERLYN SINGER M.D. Performed By: #### G LULS ####Point of Care testing, Glucose [Mass/Vol] 151 mg/dL Normal [facility] Comment on above: Result Comment: [facility] Glucose Reference Range is dependent on time and content of last meal. Glucose of more than 200 mg/dL in a nonstressed, ambulatory subject supports the diagnosis of Diabetes Mellitus.PERFORMED BY:[place] [address] [address] [place], [place] [phone] MEDICAL DIRECTORKIMBERLYN SINGER M.D. Performed By: #### G LULS ####Point of Care testing, Commemt1 Glu2: Cleaned Meter Normal [facility] Comment on above: Result Comment: PERF ORMED BY:[address] [place] [place], [place] [phone] MEDICAL DIRECTORKIMBERLYN SINGER M.D. Performed By: #### G LULS ####Point of Care testing, Glucose [Mass/Vol] 159 mg/dL Normal [facility] Comment on above: Result Comment: [facility] Glucose Reference Range is dependent on time and content of last meal. Glucose of more than 200 mg/dL in a nonstressed, ambulatory subject supports the diagnosis of Diabetes Mellitus. Performed By: #### G LULS ####Point of Care testing, LeukoReduced RBCon 2 LeukoReduced RBC TRANSFUSED 03/12/22 1625 [facility] Magnesiumon 03-12-2022 Magnesium [Mass/Vol] 1.4 mg/dL Low 1.6-2.6 [facility] Comment on above: Order Comment: Comme nt add on to previously drawn labs Result Comment: PERF ORMED BY:[place] [address] [address] [place], [place] [phone] MEDICAL DIRECTORKIMBERLYN SINGER M.D. Performed By: #### M G ####[facility] [place] [address] [place] Type and Screenon 03-12-2022 ABO and Rh group Nom (Bld) Blood group O Rh(D) positive [facility] Comment on above: Order Comment: Trans fuse now? Y Number of units to transfuse now? 2 Result Comment: PERF ORMED BY:[facility] [place], [place] [phone] MEDICAL DIRECTORKIMBERLYN SINGER M.D. US gall bladderon 03-12-2022 US gall bladder Normal [facility] XR abdomen 1Von 03-12-2022 XR abdomen 1V Normal [facility] Bacterial blood cultureOrder ed By: Tammy Smyth on 03-11-2022 Bacteria identified Cx Nom (Bld) Diptheroids [facility] Bacteria identified Cx Nom (Bld) Bacillus sp not B. anthracis [facility] Bacterial blood cultureOrder ed By: Denice Buckner on 03-11-2022 Bacteria identified Cx Nom (Bld) NO GROWTH 5 DAYS [facility] Basic Metabolic Panelon 12-0 Anion gap [Moles/Vol] 16.6 mmol/L High 6.0-15.0 [facility] Comment on above: Order Comment: FOOT ORDER Performed By: #### B MP ####[facility] [address] [place] [address] [facility] Calcium [Mass/Vol] 7.7 mg/dL Low 8.2-10.2 [facility] Comment on above: Order Comment: FOOT ORDER Performed By: #### B MP ####[facility] [place] [address] [place] Chloride [Moles/Vol] 90 mmol/L Low 95-114 [facility] Comment on above: Order Comment: FOOT ORDER Performed By: #### B MP ####[facility] [address] [place] [address] [facility] CO2 [Moles/Vol] 23.6 mmol/L Normal 22.0-30.0 [facility] Comment on above: Order Comment: FOOT ORDER Performed By: #### B MP ####[facility] [address] [place] [address] [facility] Creatinine [Mass/Vol] 0.69 mg/dL Normal 0.44-1.03 [facility] Comment on above: Order Comment: FOOT ORDER Performed By: #### B MP ####[facility] [place] [address] [place] Creatinine Clr Calc Pharmacy 77.58 [facility] Comment on above: Order Comment: FOOT ORDER Result Comment: PERF ORMED BY:[place] [address] [address] [place] [place], [place] [phone] MEDICAL DIRECTORKIMBERLYN SINGER M.D. Performed By: #### B MP ####[address] [address] [facility] Estimated GFR ( Brenda > 60 [facility] Comment on above: Order Comment: FOOT ORDER Result Comment: GFR estimated reference range: According to KDOQI guidelines, <60 ml/min/1.73m2 is sufficient to diagnose a patient with chronic kidney disease. Performed By: #### B MP ####[address] [address] [facility] Estimated GFR (Non- Am > 60 [facility] Comment on above: Order Comment: FOOT ORDER Performed By: #### B MP ####[address] [address] [facility] Glucose [Mass/Vol] 226 mg/dL High 70-100 [facility] Comment on above: Order Comment: FOOT ORDER Result Comment: [place] om Glucose Reference Range is dependent on time and content of last meal. Glucose of more than 200 mg/dL in a nonstressed, ambulatory subject supports the diagnosis of Diabetes Mellitus. ADA recommended reference range Performed By: #### B MP ####[address] [address] [facility] Potassium [Moles/Vol] 3.2 mmol/L Low 3.5-5.1 [facility] Comment on above: Order Comment: FOOT ORDER Performed By: #### B MP ####[address] [address] [facility] Sodium [Moles/Vol] 127 mmol/L Low 136-146 [facility] Comment on above: Order Comment: FOOT ORDER Performed By: #### B MP ####[address] [place] [address] [facility] Urea nitrogen [Mass/Vol] 14 mg/dL Normal 9-23 [facility] Comment on above: Order Comment: FOOT ORDER Performed By: #### B MP ####[address] [address] [facility] Anion gap [Moles/Vol] 11.3 mmol/L Normal 6.0-15.0 [facility] Comment on above: Performed By: #### F ER, FE and TIBC, BMP ####[address] [address] [facility] Calcium [Mass/Vol] 7.5 mg/dL Low 8.2-10.2 [facility] Comment on above: Performed By: #### F ER, FE and TIBC, BMP ####[address] [address] [facility] Chloride [Moles/Vol] 93 mmol/L Low 95-114 [facility] Comment on above: Performed By: #### F ER, FE and TIBC, BMP ####[address] [address] [facility] CO2 [Moles/Vol] 24.9 mmol/L Normal 22.0-30.0 [facility] Comment on above: Performed By: #### F ER, FE and TIBC, BMP ####[address] [address] [facility] Creatinine [Mass/Vol] 0.53 mg/dL Normal 0.44-1.03 [facility] Comment on above: Performed By: #### F ER, FE and TIBC, BMP ####[address] [address] [facility] Creatinine Clr Calc Pharmacy 77.58 [facility] Comment on above: Performed By: #### F ER, FE and TIBC, BMP ####[address] [address] [facility] Estimated GFR ( Brenda > 60 [facility] Comment on above: Result Comment: GFR estimated reference range: According to KDOQI guidelines, <60 ml/min/1.73m2 is sufficient to diagnose a patient with chronic kidney disease. Performed By: #### F ER, FE and TIBC, BMP ####[address] Estimated GFR (Non- Am > 60 [facility] Comment on above: Performed By: #### F ER, FE and TIBC, BMP ####[place] [address] Glucose [Mass/Vol] 174 mg/dL High 70-100 [facility] Comment on above: Result Comment: [place] Glucose Reference Range is dependent on time and content of last meal. Glucose of more than 200 mg/dL in a nonstressed, ambulatory subject supports the diagnosis of Diabetes Mellitus. ADA recommended reference range Performed By: #### F ER, FE and TIBC, BMP ####[address] Potassium [Moles/Vol] 3.2 mmol/L Low 3.5-5.1 [facility] Comment on above: Performed By: #### F ER, FE and TIBC, BMP ####[address] Sodium [Moles/Vol] 126 mmol/L Low 136-146 [facility] Comment on above: Performed By: #### F ER, FE and TIBC, BMP ####[place] [id number] [facility] Urea nitrogen [Mass/Vol] 8 mg/dL Low 9-23 [facility] Comment on above: Performed By: #### F ER, FE and TIBC, BMP ####[place] [id number] [facility] Blood Cultureon 03-11-2022 Bacteria identified Cx Nom (Bld) NO GROWTH 5 DAYS PERFORMED BY: [facility] [address] [place] [address] PATHOLOGIST FREE LANCE MODEL KIMBERLYN SINGER M.D. [facility] Comment on above: Performed By: #### C UBLD ####[address] [address] [facility] Bacteria identified Cx Nom (Bld) NO GROWTH 5 DAYS PERFORMED BY: [facility] [address] [id number] PATHOLOGIST FREE LANCE MODEL KIMBERLYN SINGER M.D. Normal [facility] Comment on above: Performed By: #### C UBLD ####[place] [id number] [facility] CT biopsyOrdered By: Denice santamaria on 03-11-2022 Transferrin [Mass/Vol] 110 mg/dL 180-380 [facility] Ferritinon 03-11-2022 Ferritin [Mass/Vol] 235.0 ng/mL Normal 11-306.8 [facility] Comment on above: Result Comment: PERF ORMED BY:[address] [place], [place] [phone] MEDICAL DIRECTORKIMBERLYN SINGER M.D. Performed By: #### F ER, FE and TIBC, BMP ####[place] [id number] [facility] Ferritin [Mass/volume] in Se rum or PlasmaOrdered By: Denice Buckner on 03-11-2022 Ferritin [Mass/Vol] 235.0 ng/mL 11-306.8 [facility] Glucose Poct Glucometerson 1 05-12-2021 Commemt1 Glu2: Cleaned Meter Normal [facility] Comment on above: Result Comment: PERF ORMED BY:[address] [place], [place] [phone] MEDICAL DIRECTORKIMBERLYN SINGER M.D. Performed By: #### G LULS ####Point of Care testing, Glucose [Mass/Vol] 218 mg/dL Normal [facility] Comment on above: Result Comment: [facility] Glucose Reference Range is dependent on time and content of last meal. Glucose of more than 200 mg/dL in a nonstressed, ambulatory subject supports the diagnosis of Diabetes Mellitus. Performed By: #### G LULS ####Point of Care testing, Commemt1 Glu2: Cleaned Meter [facility] Comment on above: Result Comment: PERF ORMED BY:[place] [address] [address] [place], [place] [phone] MEDICAL DIRECTORKIMBERLYN SINGER M.D. Performed By: #### G LULS ####Point of Care testing, Glucose [Mass/Vol] 185 mg/dL Normal [facility] Comment on above: Result Comment: [place] om Glucose Reference Range is dependent on time and content of last meal. Glucose of more than 200 mg/dL in a nonstressed, ambulatory subject supports the diagnosis of Diabetes Mellitus. Performed By: #### G LULS ####Point of Care testing, Commemt1 Glu2: Cleaned Meter [facility] Comment on above: Result Comment: PERF ORMED BY:[address] [place]PEW[place], [place] [phone] MEDICAL DIRECTORKIMBERLYN SINGER M.D. Performed By: #### G LULS ####Point of Care testing, Glucose [Mass/Vol] 225 mg/dL Normal [facility] Comment on above: Result Comment: [place] om Glucose Reference Range is dependent on time and content of last meal. Glucose of more than 200 mg/dL in a nonstressed, ambulatory subject supports the diagnosis of Diabetes Mellitus. Performed By: #### G LULS ####Point of Care testing, Commemt1 Glu2: Cleaned Meter [facility] Comment on above: Result Comment: PERF ORMED BY:[address] [place], [place] [phone] MEDICAL DIRECTORKIMBERLYN SINGER M.D. Performed By: #### G LULS ####Point of Care testing, Glucose [Mass/Vol] 159 mg/dL Normal [facility] Comment on above: Result Comment: [place] om Glucose Reference Range is dependent on time and content of last meal. Glucose of more than 200 mg/dL in a nonstressed, ambulatory subject supports the diagnosis of Diabetes Mellitus. Performed By: #### G LULS ####Point of Care testing, Commemt1 Glu2: Cleaned Meter Normal [facility] Comment on above: Result Comment: PERF ORMED BY:[place] [address] [address] [place], [place] [phone] MEDICAL DIRECTORKIMBERLYN SINGER M.D. Performed By: #### G LULS ####Point of Care testing, Glucose [Mass/Vol] 147 mg/dL Normal [facility] Comment on above: Result Comment: [facility] Glucose Reference Range is dependent on time and content of last meal. Glucose of more than 200 mg/dL in a nonstressed, ambulatory subject supports the diagnosis of Diabetes Mellitus. Performed By: #### G LULS ####Point of Care testing, Hemoglobin and Hematocriton 03-11-2022 Hematocrit (Bld) [Volume fraction] 23.0 % Low 34.0-46.4 [facility] Comment on above: Order Comment: FOOT ORDER Result Comment: PERF ORMED BY:[place] [address] [address] [place], [place] [phone] MEDICAL DIRECTORKIMBERLYN SINGER M.D. Performed By: #### H H ####[place] [id number] [facility] Hemoglobin (Bld) [Mass/Vol] 7.7 g/dL Low 11.8-15.4 [facility] Comment on above: Order Comment: FOOT ORDER Performed By: #### H H ####[place] [id number] [facility] Iron [Mass/volume] in Serum or PlasmaOrdered By: Denice Buckner on 03-11-2022 Iron [Mass/Vol] 33 ug/dL 40-150 [facility] Iron and TIBC Profileon % Iron Saturation 21.0 % Normal 20-50 [facility] Comment on above: Performed By: #### F ER, FE and TIBC, BMP ####[place] [id number] [facility] Iron [Mass/Vol] 33 ug/dL Low 40-150 [facility] Comment on above: Performed By: #### F ER, FE and TIBC, BMP ####[place] [address] Total Iron Binding Capacity 154 ug/dL Low 255-450 [facility] Comment on above: Performed By: #### F ER, FE and TIBC, BMP ####[place] [id number] [address] Transferrin [Mass/Vol] 110 mg/dL Low 180-380 [facility] Comment on above: Performed By: #### F ER, FE and TIBC, BMP ####[address] Iron binding capacity [Mass/ volume] in Serum or PlasmaOrdered By: Denice Buckner on 03-11-2022 Iron binding capacity [Mass/Vol] 154 ug/dL 255-450 [facility] Iron saturation [Mass Fracti on] in Serum or PlasmaOrdered By: Denice Buckner on 03-11-2022 Iron saturation [Mass fraction] 21.0 % 20-50 [facility] Scan and CBCon 03-11-2022 Anisocytosis Ql (Bld) Slight Normal [facility] Comment on above: Performed By: #### S CAN CBC ####[address] Basophils (Bld) [#/Vol] 0.1 10*3/uL Normal 0.0-0.2 [facility] Comment on above: Performed By: #### S CAN CBC ####[address] Basophils/100 WBC (Bld) 0.8 % Normal . [facility] Comment on above: Performed By: #### S CAN CBC ####[address] Eosinophils (Bld) [#/Vol] 0.1 10*3/uL Normal 0.0-0.45 [facility] Comment on above: Performed By: #### S CAN CBC ####[address] Eosinophils/100 WBC (Bld) 1.0 % Normal . [facility] Comment on above: Performed By: #### S CAN CBC ####[address] Erythrocyte distribution width (RBC) [Ratio] 14.4 % Normal 11.9-15.3 [facility] Comment on above: Performed By: #### S CAN CBC ####[address] Hematocrit (Bld) [Volume fraction] 24.7 % Low 34.0-46.4 [facility] Comment on above: Performed By: #### S CAN CBC ####[address] Hemoglobin (Bld) [Mass/Vol] 8.3 g/dL Low 11.8-15.4 [facility] Comment on above: Performed By: #### S CAN CBC ####[address] Hypochromasia Slight Normal [facility] Comment on above: Performed By: #### S CAN CBC ####[address] Lymphocytes (Bld) [#/Vol] 2.0 10*3/uL Normal 1.00-4.8 [facility] Comment on above: Performed By: #### S CAN CBC ####[address] Lymphocytes/100 WBC (Bld) 20.6 % Normal . [facility] Comment on above: Performed By: #### S CAN CBC ####[address] MCH (RBC) [Entitic mass] 31.5 pg Normal 24.7-34.3 [facility] Comment on above: Performed By: #### S CAN CBC ####[address] MCV (RBC) [Entitic vol] 93.5 fL Normal 80-100 [facility] Comment on above: Performed By: #### S CAN CBC ####[address] [address] [facility] Mean Corpuscular HGB Conc 33.7 g/dL Normal 32.0-35.0 [facility] Comment on above: Performed By: #### S CAN CBC ####[address] [address] [facility] Microcytosis Slight Normal [facility] Comment on above: Performed By: #### S CAN CBC ####[address] [address] [facility] Monocytes (Bld) [#/Vol] 1.1 10*3/uL High 0.0-0.8 [facility] Comment on above: Performed By: #### S CAN CBC ####[place] [id number] [facility] Monocytes/100 WBC (Bld) 11.4 % Normal . [facility] Comment on above: Performed By: #### S CAN CBC ####[address] [address] [facility] Neutrophils (Bld) [#/Vol] 6.4 10*3/uL Normal 1.8-7.7 [facility] Comment on above: Performed By: #### S CAN CBC ####[address] [address] [facility] Neutrophils/100 WBC (Bld) 66.2 % Normal . [facility] Comment on above: Performed By: #### S CAN CBC ####[address] [address] [facility] NRBC% 0.6 /100{WBC} High 0-0.5 [facility] Comment on above: Performed By: #### S CAN CBC ####[place] [id number] [facility] Platelet Estimate Normal Normal Normal [facility] Comment on above: Performed By: #### S CAN CBC ####[place] [id number] [facility] Platelet mean volume (Bld) [Entitic vol] 9.4 fL Normal 6.3-10.7 [facility] Comment on above: Performed By: #### S CAN CBC ####[address] [address] [facility] Platelet Morphology Normal Normal Normal [facility] Comment on above: Result Comment: PERF ORMED BY:[address] [place], [place] [phone] MEDICAL DIRECTORKIMBERLYN SINGER M.D. Performed By: #### S CAN CBC ####[place] [id number] [facility] Platelets (Bld) [#/Vol] 281 10*3/uL Normal 150-450 [facility] Comment on above: Performed By: #### S CAN CBC ####[place] [id number] [facility] Poikilocytosis Slight Normal [facility] Comment on above: Performed By: #### S CAN CBC ####[address] [address] [facility] Polychromasia Moderate Normal [facility] Comment on above: Performed By: #### S CAN CBC ####[place] [id number] [facility] RBC (Bld) [#/Vol] 2.64 10*6/uL Low 3.60-5.[address] [facility] Comment on above: Performed By: #### S CAN CBC ####[place] [id number] [facility] WBC (Bld) [#/Vol] 9.9 10*3/uL Normal 3.8-11.6 [facility] Comment on above: Performed By: #### S CAN CBC ####[place] [id number] [facility] Basic Metabolic Panelon 12-0 -2021 Anion gap [Moles/Vol] 13.7 mmol/L Normal 6.0-15.0 [facility] Comment on above: Order Comment: TO BE DRAWN WITH VANCO PEAK PER RN Performed By: #### B MP ####[place] [address] [place] [address] [facility] Calcium [Mass/Vol] 7.2 mg/dL Low 8.2-10.2 [facility] Comment on above: Order Comment: TO BE DRAWN WITH VANCO PEAK PER RN Performed By: #### B MP ####[address] [address] [facility] Chloride [Moles/Vol] 100 mmol/L Normal 95-114 [facility] Comment on above: Order Comment: TO BE DRAWN WITH VANCO PEAK PER RN Performed By: #### B MP ####[address] [address] [facility] CO2 [Moles/Vol] 18.5 mmol/L Low 22.0-30.0 [facility] Comment on above: Order Comment: TO BE DRAWN WITH VANCO PEAK PER RN Performed By: #### B MP ####[address] [address] [facility] Creatinine [Mass/Vol] 0.63 mg/dL Normal 0.44-1.03 [facility] Comment on above: Order Comment: TO BE DRAWN WITH VANCO PEAK PER RN Performed By: #### B MP ####[address] [address] [facility] Creatinine Clr Calc Pharmacy 75.60 [facility] Comment on above: Order Comment: TO BE DRAWN WITH VANCO PEAK PER RN Result Comment: PERF ORMED BY:[address] [place], [place] [phone] MEDICAL ANDRE SINGER M.D. Performed By: #### B MP ####[address] [address] [facility] Estimated GFR ( Brenda > 60 Normal [facility] Comment on above: Order Comment: TO BE DRAWN WITH VANCO PEAK PER RN Result Comment: GFR estimated reference range: According to KDOQI guidelines, <60 ml/min/1.73m2 is sufficient to diagnose a patient with chronic kidney disease. Performed By: #### B MP ####[address] [address] [facility] Estimated GFR (Non- Am > 60 Normal [facility] Comment on above: Order Comment: TO BE DRAWN WITH VANCO PEAK PER RN Performed By: #### B MP ####[address] [address] [facility] Glucose [Mass/Vol] 181 mg/dL High 70-100 [facility] Comment on above: Order Comment: TO BE DRAWN WITH VANCO PEAK PER RN Result Comment: [place] Glucose Reference Range is dependent on time and content of last meal. Glucose of more than 200 mg/dL in a nonstressed, ambulatory subject supports the diagnosis of Diabetes Mellitus. ADA recommended reference range Performed By: #### B MP ####[place] [id number] [facility] Potassium [Moles/Vol] 3.2 mmol/L Low 3.5-5.1 [facility] Comment on above: Order Comment: TO BE DRAWN WITH VANCO PEAK PER RN Performed By: #### B MP ####[address] [address] [facility] Sodium [Moles/Vol] 129 mmol/L Low 136-146 [facility] Comment on above: Order Comment: TO BE DRAWN WITH VANCO PEAK PER RN Performed By: #### B MP ####[place] [id number] [facility] Urea nitrogen [Mass/Vol] 8 mg/dL Low 9-23 [facility] Comment on above: Order Comment: TO BE DRAWN WITH VANCO PEAK PER RN Performed By: #### B MP ####[place] [id number] [facility] Complete Blood Count Auto Di ffon 03-10-2022 Basophils (Bld) [#/Vol] 0.0 10*3/uL Normal 0.0-0.2 [facility] Comment on above: Result Comment: PERF ORMED BY:[place] [address] [address] [place] [place], [place] [phone] MEDICAL DIRECTORKIMBERLYN SINGER M.D. Performed By: #### C BC ####[place] [address] [place] [address] [facility] Basophils/100 WBC (Bld) 0.5 % Normal . [facility] Comment on above: Performed By: #### C BC ####[place] [id number] [facility] Eosinophils (Bld) [#/Vol] 0.0 10*3/uL Normal 0.0-0.45 [facility] Comment on above: Performed By: #### C BC ####[place] [id number] [facility] Eosinophils/100 WBC (Bld) 0.6 % Normal . [facility] Comment on above: Performed By: #### C BC ####[place] [id number] [facility] Erythrocyte distribution width (RBC) [Ratio] 14.3 % Normal 11.9-15.3 [facility] Comment on above: Performed By: #### C BC ####[place] [id number] [facility] Hematocrit (Bld) [Volume fraction] 24.3 % Low 34.0-46.4 [facility] Comment on above: Performed By: #### C BC ####[place] [id number] [facility] Hemoglobin (Bld) [Mass/Vol] 8.2 g/dL Low 11.8-15.4 [facility] Comment on above: Performed By: #### C BC ####[place] [id number] [facility] Lymphocytes (Bld) [#/Vol] 1.0 10*3/uL Normal 1.00-4.8 [facility] Comment on above: Performed By: #### C BC ####[place] [id number] [facility] Lymphocytes/100 WBC (Bld) 15.1 % Normal . [facility] Comment on above: Performed By: #### C BC ####[address] [address] [facility] MCH (RBC) [Entitic mass] 32.0 pg Normal 24.7-34.3 [facility] Comment on above: Performed By: #### C BC ####[address] [address] [facility] MCV (RBC) [Entitic vol] 94.7 fL Normal 80-100 [facility] Comment on above: Performed By: #### C BC ####[address] [address] [facility] Mean Corpuscular HGB Conc 33.8 g/dL Normal 32.0-35.0 [facility] Comment on above: Performed By: #### C BC ####[address] [address] [facility] Monocytes (Bld) [#/Vol] 0.6 10*3/uL Normal 0.0-0.8 [facility] Comment on above: Performed By: #### C BC ####[address] [address] [facility] Monocytes/100 WBC (Bld) 9.5 % Normal . [facility] Comment on above: Performed By: #### C BC ####[address] [address] [facility] Neutrophils (Bld) [#/Vol] 4.8 10*3/uL Normal 1.8-7.7 [facility] Comment on above: Performed By: #### C BC ####[address] [address] [facility] Neutrophils/100 WBC (Bld) 74.3 % Normal . [facility] Comment on above: Performed By: #### C BC ####[address] [address] [facility] NRBC% 0.2 /100{WBC} Normal 0-0.5 [facility] Comment on above: Performed By: #### C BC ####[address] [place] [address] [facility] Platelet mean volume (Bld) [Entitic vol] 8.9 fL Normal 6.3-10.7 [facility] Comment on above: Performed By: #### C BC ####[place] [address] [place] [address] [facility] Platelets (Bld) [#/Vol] 206 10*3/uL Normal 150-450 [facility] Comment on above: Performed By: #### C BC ####[address] [address] [facility] RBC (Bld) [#/Vol] 2.57 10*6/uL Low 3.60-5.[address] [facility] Comment on above: Performed By: #### C BC ####[place] [address] [place] [id number] [facility] WBC (Bld) [#/Vol] 6.4 10*3/uL Normal 3.8-11.6 [facility] Comment on above: Performed By: #### C BC ####[address] [address] [facility] Cortisolon 03-10-2022 Cortisol 18.7 ug/dL Normal [facility] Comment on above: Result Comment: Refe rence range: AM 6 - 24 ug/dl PM <10 ug/dlPERFORMED BY:[address] [place], [place] [phone] MEDICAL DIRECTORKIMBERLYN SINGER M.D. Performed By: #### P HOS, JERRY, TSH3 ####[address] [address] [facility] ECG 12 lead ECGon 03-10-2022 ECG 12 lead ECG Normal [facility] Glucose Poct Glucometerson 1 05-11-2021 Glucose [Mass/Vol] 146 mg/dL Normal [facility] Comment on above: Result Comment: [place] Glucose Reference Range is dependent on time and content of last meal. Glucose of more than 200 mg/dL in a nonstressed, ambulatory subject supports the diagnosis of Diabetes Mellitus.PERFORMED BY:[address], [place] [phone] MEDICAL DIRECTORKIMBERLYN SINGER M.D. Performed By: #### G LULS ####Point of Care testing, Commemt1 Glu2: Cleaned Meter [facility] Comment on above: Result Comment: PERF ORMED BY:[place] [address] [address] [place], [place] [phone] MEDICAL DIRECTORKIMBERLYN SINGER M.D. Performed By: #### G LULS ####Point of Care testing, Glucose [Mass/Vol] 173 mg/dL Normal [facility] Comment on above: Result Comment: [place] om Glucose Reference Range is dependent on time and content of last meal. Glucose of more than 200 mg/dL in a nonstressed, ambulatory subject supports the diagnosis of Diabetes Mellitus. Performed By: #### G LULS ####Point of Care testing, Commemt1 Glu2: Cleaned Meter [facility] Comment on above: Result Comment: PERF ORMED BY:[address] [place], [place] [phone] MEDICAL DIRECTORKIMBERLYN SINGER M.D. Performed By: #### G LULS ####Point of Care testing, Glucose [Mass/Vol] 171 mg/dL Normal [facility] Comment on above: Result Comment: [place] om Glucose Reference Range is dependent on time and content of last meal. Glucose of more than 200 mg/dL in a nonstressed, ambulatory subject supports the diagnosis of Diabetes Mellitus. Performed By: #### G LULS ####Point of Care testing, Commemt1 Glu2: Cleaned Meter [facility] Comment on above: Result Comment: PERF ORMED BY:[place] [address] [address] [place], [place] [phone] MEDICAL ANDRE SINGER M.D. Performed By: #### G LULS ####Point of Care testing, Glucose [Mass/Vol] 183 mg/dL Normal [facility] Comment on above: Result Comment: [place] om Glucose Reference Range is dependent on time and content of last meal. Glucose of more than 200 mg/dL in a nonstressed, ambulatory subject supports the diagnosis of Diabetes Mellitus. Performed By: #### G CHUCK ####Point of Care testing, MR head/brain wo/w conon MR head/brain wo/w con Normal [facility] Phosphoruson 03-10-2022 Phosphate [Mass/Vol] 2.5 mg/dL Normal 2.5-4.6 [facility] Comment on above: Performed By: #### P HOS, JERRY, TSH3 ####[place] [address] [place] [address] [facility] Random cortisol measurementO rdered By: Denice Buckner on 03-10-2022 Cortisol [Mass/Vol] 18.7 ug/dL [facility] Comment on above: Reference range: AM 6 - 24 ug/dl PM <10 ug/dl TSH DL <= 0.005 mIU/L QnOrde red By: Denice Buckner on 03-10-2022 TSH Qn 1.62 m[IU]/L 0.45-5.33 [facility] Thyroid Stimulating Hormoneo n 03-10-2022 TSH Qn 1.62 m[IU]/L Normal 0.45-5.33 [facility] Comment on above: Performed By: #### P HOS, JERRY, TSH3 ####[address] [address] [facility] Complete Blood Count Auto Di ffon 03-09-2022 Basophils (Bld) [#/Vol] 0.0 10*3/uL Normal 0.0-0.2 [facility] Comment on above: Result Comment: PERF ORMED BY:[address] [place] [place], [place] [phone] MEDICAL ANDRE SINGER M.D. Performed By: #### C BC ####[place] [address] [place] [address] [facility] Basophils/100 WBC (Bld) 0.2 % Normal . [facility] Comment on above: Performed By: #### C BC ####[place] [id number] [facility] Eosinophils (Bld) [#/Vol] 0.0 10*3/uL Normal 0.0-0.45 [facility] Comment on above: Performed By: #### C BC ####[place] [id number] [facility] Eosinophils/100 WBC (Bld) 0.5 % Normal . [facility] Comment on above: Performed By: #### C BC ####[place] [id number] [facility] Erythrocyte distribution width (RBC) [Ratio] 14.2 % Normal 11.9-15.3 [facility] Comment on above: Performed By: #### C BC ####[place] [id number] [facility] Hematocrit (Bld) [Volume fraction] 20.5 % Low 34.0-46.4 [facility] Comment on above: Performed By: #### C BC ####[place] [id number] [facility] Hemoglobin (Bld) [Mass/Vol] 7.0 g/dL Low 11.8-15.4 [facility] Comment on above: Performed By: #### C BC ####[place] [id number] [facility] Lymphocytes (Bld) [#/Vol] 1.5 10*3/uL Normal 1.00-4.8 [facility] Comment on above: Performed By: #### C BC ####[place] [id number] [facility] Lymphocytes/100 WBC (Bld) 23.2 % Normal . [facility] Comment on above: Performed By: #### C BC ####[place] [id number] [facility] MCH (RBC) [Entitic mass] 31.9 pg Normal 24.7-34.3 [facility] Comment on above: Performed By: #### C BC ####[address] [address] [facility] MCV (RBC) [Entitic vol] 93.5 fL Normal 80-100 [facility] Comment on above: Performed By: #### C BC ####[place] [id number] [facility] Mean Corpuscular HGB Conc 34.1 g/dL Normal 32.0-35.0 [facility] Comment on above: Performed By: #### C BC ####[place] [id number] [facility] Monocytes (Bld) [#/Vol] 1.0 10*3/uL High 0.0-0.8 [facility] Comment on above: Performed By: #### C BC ####[place] [id number] [facility] Monocytes/100 WBC (Bld) 15.3 % Normal . [facility] Comment on above: Performed By: #### C BC ####[place] [id number] [facility] Neutrophils (Bld) [#/Vol] 3.8 10*3/uL Normal 1.8-7.7 [facility] Comment on above: Performed By: #### C BC ####[place] [id number] [facility] Neutrophils/100 WBC (Bld) 60.8 % Normal . [facility] Comment on above: Performed By: #### C BC ####[place] [id number] [facility] NRBC% 0.1 /100{WBC} Normal 0-0.5 [facility] Comment on above: Performed By: #### C BC ####[place] [id number] [facility] Platelet mean volume (Bld) [Entitic vol] 8.6 fL Normal 6.3-10.7 [facility] Comment on above: Performed By: #### C BC ####[place] [id number] [facility] Platelets (Bld) [#/Vol] 192 10*3/uL Signific ant change down 150-450 [facility] Comment on above: Performed By: #### C BC ####[place] [id number] [facility] RBC (Bld) [#/Vol] 2.20 10*6/uL Low 3.60-5.[address] [facility] Comment on above: Performed By: #### C BC ####[place] [id number] [facility] WBC (Bld) [#/Vol] 6.3 10*3/uL Normal 3.8-11.6 [facility] Comment on above: Performed By: #### C BC ####[place] [id number] [facility] Comprehensive Metabolic Pane jeremy 03-09-2022 Albumin [Mass/Vol] 1.8 g/dL Low 3.2-5.5 [facility] Comment on above: Performed By: #### Rosemary Saleem, CMP ####[place] [id number] [facility] Albumin/Globulin [Mass ratio] 0.8 {ratio} Normal [facility] Comment on above: Performed By: #### Rosemary Saleem, CMP ####[place] [id number] [facility] ALP [Catalytic activity/Vol] 88 U/L Normal 32-92 [facility] Comment on above: Performed By: #### Rosemary Saleem, CMP ####[place] [id number] [facility] ALT [Catalytic activity/Vol] 10 U/L Normal 10-60 [facility] Comment on above: Performed By: #### Rosemary Saleem, CMP ####[place] [id number] [facility] Anion gap [Moles/Vol] 8.4 mmol/L Normal 6.0-15.0 [facility] Comment on above: Performed By: #### Rosemary Saleem, CMP ####[address] [place] [address] [facility] AST [Catalytic activity/Vol] 12 U/L Normal 10-42 [facility] Comment on above: Performed By: #### Rosemary Saleem, CMP ####[place] [id number] [facility] Bilirubin [Mass/Vol] 0.6 mg/dL Normal 0.3-1.2 [facility] Comment on above: Performed By: #### Rosemary Saleem, CMP ####[place] [id number] [facility] Calcium [Mass/Vol] 6.6 mg/dL Low 8.2-10.2 [facility] Comment on above: Performed By: #### Rosemary Saleem, CMP ####[address] Chloride [Moles/Vol] 101 mmol/L Normal 95-114 [facility] Comment on above: Performed By: #### oRsemary Saleem, CMP ####[place] [id number] [facility] CO2 [Moles/Vol] 22.9 mmol/L Normal 22.0-30.0 [facility] Comment on above: Performed By: #### Rosemary Saleem, CMP ####[place] [id number] [facility] Creatinine [Mass/Vol] 0.63 mg/dL Normal 0.44-1.03 [facility] Comment on above: Performed By: #### Rosemary Saleem, CMP ####[place] [id number] [facility] Creatinine Clr Calc Pharmacy 82.80 [facility] Comment on above: Performed By: #### Rosemary Saleem, CMP ####[place] [id number] [facility] Estimated GFR ( Brenda > 60 [facility] Comment on above: Result Comment: GFR estimated reference range: According to KDOQI guidelines, <60 ml/min/1.73m2 is sufficient to diagnose a patient with chronic kidney disease. Performed By: #### Rosemary Saleem, CMP ####[address] [place] [address] [facility] Estimated GFR (Non- Am > 60 Normal [facility] Comment on above: Performed By: #### M Harper, CMP ####[address] [address] [facility] Globulin (S) [Mass/Vol] 2.4 g/dL Normal [facility] Comment on above: Performed By: #### M Harper, CMP ####[place] [id number] [facility] Glucose [Mass/Vol] 201 mg/dL High 70-100 [facility] Comment on above: Result Comment: [facility] Glucose Reference Range is dependent on time and content of last meal. Glucose of more than 200 mg/dL in a nonstressed, ambulatory subject supports the diagnosis of Diabetes Mellitus. ADA recommended reference range Performed By: #### M Harper, CMP ####[place] [id number] [facility] Potassium [Moles/Vol] 3.3 mmol/L Low 3.5-5.1 [facility] Comment on above: Performed By: #### Rosemary Saleem, CMP ####[place] [id number] [facility] Protein [Mass/Vol] 4.2 g/dL Low 6.1-7.9 [facility] Comment on above: Performed By: #### Rosemary Saleem, CMP ####[place] [id number] [facility] Sodium [Moles/Vol] 129 mmol/L Low 136-146 [facility] Comment on above: Performed By: #### M Harper, CMP ####[place] [id number] [facility] Urea nitrogen [Mass/Vol] 11 mg/dL Normal 9-23 [facility] Comment on above: Performed By: #### M G, CMP ####[address] [address] [facility] Ethyl Alcohol Profileon 12-0 Ethanol [Mass/Vol] mg/dL Normal [facility] Comment on above: Performed By: #### E SUSIE ####[facility] [id number] [place] [id number] [place] Percent Ethanol Not performed Normal [facility] [facility] Comment on above: Result Comment: PERF ORMED BY:[place] [address] [address] [place], [place] [phone] MEDICAL DIRECTORKIMBERLYN SINGER M.D. Performed By: #### E SUSIE ####[address] [address] [facility] Glucose Poct Glucometerson 1 05-10-2021 Glucose [Mass/Vol] 143 mg/dL Normal [facility] Comment on above: Result Comment: [facility] Glucose Reference Range is dependent on time and content of last meal. Glucose of more than 200 mg/dL in a nonstressed, ambulatory subject supports the diagnosis of Diabetes Mellitus.PERFORMED BY:[address] [address] [place], [place] [phone] MEDICAL ANDRE SINGER M.D. Performed By: #### G LULS ####Point of Care testing, Glucose [Mass/Vol] 180 mg/dL Normal [facility] Comment on above: Result Comment: [facility] Glucose Reference Range is dependent on time and content of last meal. Glucose of more than 200 mg/dL in a nonstressed, ambulatory subject supports the diagnosis of Diabetes Mellitus.PERFORMED BY:[place] [address] [place], [place] [phone] MEDICAL ANDRE SINGER M.D. Performed By: #### G LULS ####Point of Care testing, Commemt1 Glu2: Cleaned Meter Normal [facility] Comment on above: Result Comment: PERF ORMED BY:[place] [address] [place], [place] [phone] VIVI SINGER M.D. Performed By: #### G LULS ####Point of Care testing, Glucose [Mass/Vol] 230 mg/dL Normal [facility] Comment on above: Result Comment: [facility] Glucose Reference Range is dependent on time and content of last meal. Glucose of more than 200 mg/dL in a nonstressed, ambulatory subject supports the diagnosis of Diabetes Mellitus. Performed By: #### G CHUCK ####Point of Care testing, Hemoglobin and Hematocriton 03-09-2022 Hematocrit (Bld) [Volume fraction] 22.3 % Low 34.0-46.4 [facility] Comment on above: Result Comment: PERF ORMED BY:[place] [address] [address] [place], [place] [phone] MEDICAL DIRECTORKIMBERLYN SINGER M.D. Performed By: #### H H ####[address] [address] [facility] Hemoglobin (Bld) [Mass/Vol] 7.5 g/dL Low 11.8-15.4 [facility] Comment on above: Performed By: #### H H ####[address] [address] [facility] Magnesiumon 03-09-2022 Magnesium [Mass/Vol] 2.0 mg/dL Significant change down 1.6-2.6 [facility] Comment on above: Result Comment: PERF ORMED BY:[place] [address] [address] [place], [place] [phone] MEDICAL DIRECTORKIMBERLYN SINGER M.D. Performed By: #### M G, CMP ####[address] [address] [facility] Serum or plasma ethanol john urement (mass/volume)Ordered By: Deangelo Kulkarni on 03-09-2022 Ethanol [Mass/Vol] mg/dL [facility] Ethanol [Mass/Vol] TNP [facility] Comment on above: Test not performed Activated partial thrombopla stin time (aPTT) in platelet poor plasma by coagulation aOrdered By: Tammy Smyth on 03-08-2022 aPTT Coag (PPP) [Time] 31.5 s 25.1-36.5 [facility] Albumin [Mass/volume] in Ser um or PlasmaOrdered By: Tammy Smyth on 03-08-2022 Albumin [Mass/Vol] 2.6 g/dL 3.2-5.5 [facility] Ammoniaon 03-08-2022 Ammonia (P) [Mass/Vol] ug/dL Low 11-35 [facility] Comment on above: Order Comment: TOO O LD TO USE NOW PER CHEM Result Comment: PERF ORMED BY:[facility] [place], [place] [phone] MEDICAL DIRECTORKIMBERLYN SINGER M.D. Performed By: #### A MM ####[facility] [place] [address] [facility] Amphetamine Screen Ql (U)Ord ered By: Tammy Smyth on 03-08-2022 Amphetamines Ql (U) Negative Negative [facility] Anisocytosis LM Ql (Bld)Orde red By: Tammy Smyth on 03-08-2022 Anisocytosis Ql (Bld) Slight [facility] Arterial Blood Gason 022 ABG Base Excess -1.4 mmol/L Normal -3.0-3.0 [facility] Comment on above: Performed By: #### A BG ####Point of Care testing, ABG Frac Inspired O2 21 % Normal [facility] Comment on above: Performed By: #### A BG ####Point of Care testing, ABG Oxygen Content 3.3 mmol/L Low 6.6-9.7 [facility] Comment on above: Performed By: #### A BG ####Point of Care testing, ABG Oxygen Saturation 58.4 % Low 95.0-100.0 [facility] Comment on above: Performed By: #### A BG ####Point of Care testing, ABG PCO2 29.2 mm[Hg] Off scale low 35.0-45.0 [facility] Comment on above: Performed By: #### A BG ####Point of Care testing, ABG PH 7.48 High 7.35-7.45 [facility] Comment on above: Performed By: #### A BG ####Point of Care testing, ABG PO2 30.3 mm[Hg] Off scale low 80.0-100.0 [facility] Comment on above: Performed By: #### A BG ####Point of Care testing, CO2 [Moles/Vol] 22.4 mmol/L Low 23.0-27.0 [facility] Comment on above: Performed By: #### A BG ####Point of Care testing, HCO3 (Bld) [Moles/Vol] 21.5 mmol/L Low 23.0-29.0 [facility] Comment on above: Performed By: #### A BG ####Point of Care testing, Respiratory Critical Normal [facility] Comment on above: Result Comment: Crit ical Value called on: 03/08/2022 at 15:52PERFORMED BY:[place] [id number] [place], [place] [phone] MEDICAL DIRECTORKIMBERLYN SINGER M.D. Performed By: #### A BG ####Point of Care testing, VBG Draw Site Venous Normal [facility] Comment on above: Performed By: #### A BG ####Point of Care testing, Automated erythrocytes count in urine sediment (number/area)Ordered By: Tammy Smyth on 03-08-2022 RBC Auto (Urine sed) [#/Area] 5-9 [HPF] 0-4 [facility] Automated leukocytes count i n urine sediment (number/area)Ordered By: Tammy Smyth on 03-08-2022 WBC Auto (Urine sed) [#/Area] 0-1 [HPF] 0-4 [facility] Barbiturates [Presence] in U rineOrdered By: Tammy Smyth on 03-08-2022 Barbiturates Ql (U) Negative Negative [facility] Basic Metabolic Panelon Anion gap [Moles/Vol] 11.0 mmol/L Normal 6.0-15.0 [facility] Comment on above: Order Comment: RN NO TIFIED NO VEINS Performed By: #### B MP ####[address] [place] [address] [facility] Calcium [Mass/Vol] 6.7 mg/dL Low 8.2-10.2 [facility] Comment on above: Order Comment: RN NO TIFIED NO VEINS Performed By: #### B MP ####[address] [address] [facility] Chloride [Moles/Vol] 94 mmol/L Low 95-114 [facility] Comment on above: Order Comment: RN NO TIFIED NO VEINS Performed By: #### B MP ####[address] [address] [facility] CO2 [Moles/Vol] 23.3 mmol/L Normal 22.0-30.0 [facility] Comment on above: Order Comment: RN NO TIFIED NO VEINS Performed By: #### B MP ####[address] [address] [facility] Creatinine [Mass/Vol] 0.65 mg/dL Normal 0.44-1.03 [facility] Comment on above: Order Comment: RN NO TIFIED NO VEINS Performed By: #### B MP ####[place] [id number] [facility] Creatinine Clr Calc Pharmacy 82.80 [facility] Comment on above: Order Comment: RN NO TIFIED NO VEINS Result Comment: PERF ORMED BY:[address] [address] [place], [place] [phone] MEDICAL ANDRE SINGER M.D. Performed By: #### B MP ####[address] [address] [facility] Estimated GFR ( Brenda > 60 [facility] Comment on above: Order Comment: RN NO TIFIED NO VEINS Result Comment: GFR estimated reference range: According to KDOQI guidelines, <60 ml/min/1.73m2 is sufficient to diagnose a patient with chronic kidney disease. Performed By: #### B MP ####[address] [address] [facility] Estimated GFR (Non- Am > 60 Normal [facility] Comment on above: Order Comment: RN NO TIFIED NO VEINS Performed By: #### B MP ####[place] [id number] [facility] Glucose [Mass/Vol] 220 mg/dL High 70-100 [facility] Comment on above: Order Comment: RN NO TIFIED NO VEINS Result Comment: [facility] Glucose Reference Range is dependent on time and content of last meal. Glucose of more than 200 mg/dL in a nonstressed, ambulatory subject supports the diagnosis of Diabetes Mellitus. ADA recommended reference range Performed By: #### B MP ####[place] [id number] [facility] Potassium [Moles/Vol] 3.3 mmol/L Low 3.5-5.1 [facility] Comment on above: Order Comment: RN NO TIFIED NO VEINS Performed By: #### B MP ####[place] [id number] [facility] Sodium [Moles/Vol] 125 mmol/L Low 136-146 [facility] Comment on above: Order Comment: RN NO TIFIED NO VEINS Performed By: #### B MP ####[place] [id number] [facility] Urea nitrogen [Mass/Vol] 10 mg/dL Normal 9-23 [facility] Comment on above: Order Comment: RN NO TIFIED NO VEINS Performed By: #### B MP ####[place] [id number] [facility] Anion gap [Moles/Vol] 5.7 mmol/L Low 6.0-15.0 [facility] Comment on above: Performed By: #### B MP ####[place] [id number] [facility] Calcium [Mass/Vol] 7.0 mg/dL Low 8.2-10.2 [facility] Comment on above: Performed By: #### B MP ####[place] [id number] [facility] Chloride [Moles/Vol] 103 mmol/L Normal 95-114 [facility] Comment on above: Performed By: #### B MP ####[address] [address] [facility] CO2 [Moles/Vol] 20.3 mmol/L Low 22.0-30.0 [facility] Comment on above: Performed By: #### B MP ####[address] [address] [facility] Creatinine [Mass/Vol] 0.58 mg/dL Normal 0.44-1.03 [facility] Comment on above: Performed By: #### B MP ####[place] [id number] [facility] Creatinine Clr Calc Pharmacy 82.80 [facility] Comment on above: Result Comment: PERF ORMED BY:[address] [place], [place] [phone] MEDICAL DIRECTORKIMBERLYN SINGER M.D. Performed By: #### B MP ####[address] [address] [facility] Estimated GFR ( Brenda > 60 [facility] Comment on above: Result Comment: GFR estimated reference range: According to KDOQI guidelines, <60 ml/min/1.73m2 is sufficient to diagnose a patient with chronic kidney disease. Performed By: #### B MP ####[place] [id number] [facility] Estimated GFR (Non- Am > 60 [facility] Comment on above: Performed By: #### B MP ####[place] [id number] [facility] Glucose [Mass/Vol] 202 mg/dL High 70-100 [facility] Comment on above: Result Comment: [place] [facility] Glucose Reference Range is dependent on time and content of last meal. Glucose of more than 200 mg/dL in a nonstressed, ambulatory subject supports the diagnosis of Diabetes Mellitus. ADA recommended reference range Performed By: #### B MP ####[place] [id number] [facility] Potassium [Moles/Vol] 3.0 mmol/L Low 3.5-5.1 [facility] Comment on above: Performed By: #### B MP ####[place] [address] Sodium [Moles/Vol] 126 mmol/L Low 136-146 [facility] Comment on above: Performed By: #### B MP ####[place] [address] Urea nitrogen [Mass/Vol] 8 mg/dL Low 9-23 [facility] Comment on above: Performed By: #### B MP ####[address] Basophils Auto (Bld) [#/Vol] Ordered By: Tammy Smyth on 03-08-2022 Basophils (Bld) [#/Vol] 0.0 10*3/uL 0.0-0.2 [facility] Basophils/100 WBC Auto (Bld) Ordered By: Tammy Smyth on 03-08-2022 Basophils/100 WBC (Bld) 0.1 % . [facility] Benzodiazepines [Presence] i n UrineOrdered By: Tammy Smyth on 03-08-2022 Benzodiazepines Ql (U) Negative Negative [facility] Bilirubin Test strip Ql (U)O rdered By: Tammy Smyth on 03-08-2022 Bilirubin Ql (U) Negative Negative [facility] Blood Cultureon 03-08-2022 Bacteria identified Cx Nom (Bld) NO GROWTH 5 DAYS PERFORMED BY: [facility] [address] [place] [id number] PATHOLOGIST [employer] MODEL KIMBERLYN SINGER M.D. [facility] Comment on above: Performed By: #### C UBLD, LACTIC ####[place] [address] [place] [id number] [facility] Bacteria identified Cx Nom (Bld) [facility] Comment on above: Performed By: #### C UBLD, LACTIC ####[place] [address] [facility] [place] [address] [facility] COVID CepheidOrdered By: Ame rayshawn Smyth on 03-08-2022 SARS-CoV-2 (COVID-19) Ab IA Ql Negative Negative [facility] Comment on above: This is a duplicate Cepheid Xpert Xpress CoV-2/Flu/RSV Plus RNA by RT-PCR result to be used for statistical tracking purpose only. SARS-CoV-2 (COVID-19) RNA TESFAYE+probe Ql (Unsp spec) [facility] SARS-CoV-2 (COVID-19) RNA TESFAYE+probe Ql (Unsp spec) [facility] COVID-19 / Flu A/B / RSV PCR on 03-08-2022 SARS-CoV-2 (COVID-19) RNA TESFAYE+probe Ql (Unsp spec) Normal [facility] Comment on above: Performed By: #### C OVID19 FLU RSV, CEPHEID NEG ####[address] [address] [facility] CT head/brain wo conon 03-08 CT head/brain wo con Normal [facility] Cannabinoids [Presence] in U rine by Screen methodOrdered By: Tammy Smyth on 03-08-2022 Cannabinoids Screen Ql (U) Positive Negative [facility] Comment on above: These are unconfirme d results and should not be used for legal purposes. Drug Cut-Off Concentration: AMPH 1000 ng/mL LUCIA 200 ng/mL SONDRA 200 ng/mL COCM 300 ng/mL OP 300 ng/mL PCP 25 ng/mL THC 20 ng/mL Cepheid COVID PCR Negativeon 03-08-2022 SARS-CoV-2 (COVID-19) RNA TESFAYE+probe Ql (Unsp spec) Negative Normal Negative [facility] Comment on above: Result Comment: This is a duplicate Cepheid Xpert Xpress CoV-2/Flu/RSV Plus RNA by RT-PCR result to be used for statistical tracking purpose only.PERFORMED BY:[address] [place], [place] [phone] MEDICAL ANRDE SINGER M.D. Performed By: #### C OVID19 FLU RSV, CEPHEID NEG ####[place] [address] Color Auto (U)Ordered By: Dolores Smyth on 03-08-2022 Color (U) Yellow Yellow [facility] Comprehensive Metabolic Pane jeremy 03-08-2022 Albumin [Mass/Vol] 2.6 g/dL Low 3.2-5.5 [facility] Comment on above: Performed By: #### H S TROP, PT, CK, CKMB, PTT, CMP, SCAN CBC ####[address] Albumin/Globulin [Mass ratio] 0.9 {ratio} Normal [facility] Comment on above: Performed By: #### H S TROP, PT, CK, CKMB, PTT, CMP, SCAN CBC ####[address] ALP [Catalytic activity/Vol] 132 U/L High 32-92 [facility] Comment on above: Performed By: #### H S TROP, PT, CK, CKMB, PTT, CMP, SCAN CBC ####[address] ALT [Catalytic activity/Vol] 13 U/L Normal 10-60 [facility] Comment on above: Performed By: #### H S TROP, PT, CK, CKMB, PTT, CMP, SCAN CBC ####[place] [id number] [facility] Anion gap [Moles/Vol] 16.3 mmol/L High 6.0-15.0 [facility] Comment on above: Performed By: #### H S TROP, PT, CK, CKMB, PTT, CMP, SCAN CBC ####[address] AST [Catalytic activity/Vol] 17 U/L Normal 10-42 [facility] Comment on above: Performed By: #### H S TROP, PT, CK, CKMB, PTT, CMP, SCAN CBC ####[place] [id number] [facility] Bilirubin [Mass/Vol] 1.1 mg/dL Normal 0.3-1.2 [facility] Comment on above: Performed By: #### H S TROP, PT, CK, CKMB, PTT, CMP, SCAN CBC ####[place] [address] Calcium [Mass/Vol] 7.5 mg/dL Low 8.2-10.2 [facility] Comment on above: Performed By: #### H S TROP, PT, CK, CKMB, PTT, CMP, SCAN CBC ####[address] Chloride [Moles/Vol] 87 mmol/L Low 95-114 [facility] Comment on above: Performed By: #### H S TROP, PT, CK, CKMB, PTT, CMP, SCAN CBC ####[address] CO2 [Moles/Vol] 21.2 mmol/L Low 22.0-30.0 [facility] Comment on above: Performed By: #### H S TROP, PT, CK, CKMB, PTT, CMP, SCAN CBC ####[address] Creatinine [Mass/Vol] 0.69 mg/dL Normal 0.44-1.03 [facility] Comment on above: Performed By: #### H S TROP, PT, CK, CKMB, PTT, CMP, SCAN CBC ####[address] Creatinine Clr Calc Pharmacy 82.80 [facility] Comment on above: Result Comment: PERF ORMED BY:[address] [place], [place] [phone] MEDICAL DIRECTORKIMBERLYN SINGER M.D. Performed By: #### H S TROP, PT, CK, CKMB, PTT, CMP, SCAN CBC ####[address] Estimated GFR ( Brenda > 60 [facility] Comment on above: Result Comment: GFR estimated reference range: According to KDOQI guidelines, <60 ml/min/1.73m2 is sufficient to diagnose a patient with chronic kidney disease. Performed By: #### H S TROP, PT, CK, CKMB, PTT, CMP, SCAN CBC ####[address] Estimated GFR (Non- Am > 60 Normal [facility] Comment on above: Performed By: #### H S TROP, PT, CK, CKMB, PTT, CMP, SCAN CBC ####[place] [address] Globulin (S) [Mass/Vol] 3.0 g/dL Normal [facility] Comment on above: Performed By: #### H S TROP, PT, CK, CKMB, PTT, CMP, SCAN CBC ####[address] Glucose [Mass/Vol] 229 mg/dL High 70-100 [facility] Comment on above: Result Comment: [place] Glucose Reference Range is dependent on time and content of last meal. Glucose of more than 200 mg/dL in a nonstressed, ambulatory subject supports the diagnosis of Diabetes Mellitus. ADA recommended reference range Performed By: #### H S TROP, PT, CK, CKMB, PTT, CMP, SCAN CBC ####[address] Potassium [Moles/Vol] 2.5 mmol/L Off scale low 3.5-5.1 [facility] Comment on above: Result Comment: Resu lts called at 1424 on 03/08/22 Performed By: #### H S TROP, PT, CK, CKMB, PTT, CMP, SCAN CBC ####[address] Protein [Mass/Vol] 5.6 g/dL Low 6.1-7.9 [facility] Comment on above: Performed By: #### H S TROP, PT, CK, CKMB, PTT, CMP, SCAN CBC ####[address] [place] [address] [facility] Sodium [Moles/Vol] 122 mmol/L Off scale low 136-146 [facility] Comment on above: Result Comment: at 1 424 on 03/08/22 Performed By: #### H S TROP, PT, CK, CKMB, PTT, CMP, SCAN CBC ####[place] [id number] [facility] Urea nitrogen [Mass/Vol] 11 mg/dL Normal 9-23 [facility] Comment on above: Performed By: #### H S TROP, PT, CK, CKMB, PTT, CMP, SCAN CBC ####[place] [id number] [facility] Creatine Kinaseon 03-08-2022 CK [Catalytic activity/Vol] 46 U/L Normal [facility] Comment on above: Performed By: #### H S TROP, PT, CK, CKMB, PTT, CMP, SCAN CBC ####[address] Creatine kinase [Enzymatic a ctivity/volume] in Serum or PlasmaOrdered By: Tammy Smyth on 03-08-2022 CK [Catalytic activity/Vol] 46 U/L [facility] Creatinine Kinase MBon 03-08 CK.MB [Mass/Vol] 1.3 ng/mL Normal 0.6-6.3 [facility] Comment on above: Performed By: #### H S TROP, PT, CK, CKMB, PTT, CMP, SCAN CBC ####[place] [id number] [facility] CKMB Relative Index 2.8 % High 0.00-2.[address] [facility] Comment on above: Performed By: #### H S TROP, PT, CK, CKMB, PTT, CMP, SCAN CBC ####[address] Creatinine and Glomerular fi ltration rate.predicted panel (S/P/Bld)Ordered By: Tammy Smyth on 03-08-2022 Creatinine [Mass/Vol] 0.58 mg/dL 0.44-1.03 [facility] Dipstick and Microscopicon 1 05-09-2021 Appearance (U) Clear Normal Clear [facility] Comment on above: Order Comment: Name Collection Type:: Straight Catheter Performed By: #### A DDONUAPLUS, URDS ####[place] [address] [place] [address] [facility] Bacteria,Urine None Seen Normal None Seen [facility] Comment on above: Order Comment: Name Collection Type:: Straight Catheter Performed By: #### A DDONUAPLUS, URDS ####[address] [address] [place] Bilirubin,Urine Negative Normal Negative [facility] Comment on above: Order Comment: Name Collection Type:: Straight Catheter Performed By: #### A DDONUAPLUS, URDS ####[address] [address] [place] Color (U) Yellow Normal Yellow [facility] Comment on above: Order Comment: Name Collection Type:: Straight Catheter Performed By: #### A DDONUAPLUS, URDS ####[address] [address] [place] Glucose Ql (U) 250 mg/dL High Normal [facility] Comment on above: Order Comment: Name Collection Type:: Straight Catheter Performed By: #### A DDONUAPLUS, URDS ####[address] [address] [place] Hyaline Casts,Urine 0-8 Normal 0-[address] [facility] Comment on above: Order Comment: Name Collection Type:: Straight Catheter Result Comment: PERF ORMED BY:[address] [place], [place] [phone] MEDICAL DIRECTORKIMBERLYN SINGER M.D. Performed By: #### A DDONUAPLUS, URDS ####[place] [address] [place] [address] [place] Ketones Ql (U) 2+ High Negative [facility] Comment on above: Order Comment: Name Collection Type:: Straight Catheter Performed By: #### A DDONUAPLUS, URDS ####[place] [address] [place] [address] [facility] Leukocyte esterase Test strip Ql (U) Negative Normal Negative [facility] Comment on above: Order Comment: Name Collection Type:: Straight Catheter Performed By: #### A DDONUAPLUS, URDS ####[address] [address] [facility] Nitrite,Urine Negative Normal Negative [facility] Comment on above: Order Comment: Name Collection Type:: Straight Catheter Performed By: #### A DDONUAPLUS, URDS ####[address] [address] [facility] Occult Blood,Urine Trace High Negative [facility] Comment on above: Order Comment: Name Collection Type:: Straight Catheter Result Comment: PERF ORMED BY:[address] [place], [place] [phone] MEDICAL DIRECTORKIMBERLYN SINGER M.D. Performed By: #### A DDONUAPLUS, URDS ####[address] [address] [facility] pH (U) 8.0 [pH] Normal 5.0-9.0 [facility] Comment on above: Order Comment: Name Collection Type:: Straight Catheter Performed By: #### A DDONUAPLUS, URDS ####[address] [address] [facility] Protein (U) [Mass/Vol] 30 mg/dL High Negative [facility] Comment on above: Order Comment: Name Collection Type:: Straight Catheter Performed By: #### A DDONUAPLUS, URDS ####[address] [address] [place] RBC,Urine 5-9 High 0-4 [facility] Comment on above: Order Comment: Name Collection Type:: Straight Catheter Performed By: #### A DDONUAPLUS, URDS ####[address] [address] [facility] Renal Epithelial Cells,Urine None Seen Normal 0-1 [facility] Comment on above: Order Comment: Name Collection Type:: Straight Catheter Performed By: #### A DDONUAPLUS, URDS ####[address] [address] [facility] Specificy [place],Urine 1.015 Normal 1.00 1-1.03 0 [facility] Comment on above: Order Comment: Name Collection Type:: Straight Catheter Performed By: #### A DDONUAPLUS, URDS ####[address] [address] [facility] Squamous Epithelial Cell,Urine 1-2 Normal 0-2 [facility] Comment on above: Order Comment: Name Collection Type:: Straight Catheter Performed By: #### A DDONUAPLUS, URDS ####[address] [address] [facility] Urobilinogen,Urine Normal Normal Normal [facility] Comment on above: Order Comment: Name Collection Type:: Straight Catheter Performed By: #### A DDONUAPLUS, URDS ####[address] [address] [facility] WBC LM.HPF (Urine sed) [#/Area] 0 /[HPF] Normal 0-4 [facility] [facility] Comment on above: Order Comment: Name Collection Type:: Straight Catheter Performed By: #### A DDONUAPLUS, URDS ####[address] [address] [facility] Drug Screen,Urineon 03-08-20 22 Amphetamine Screen,Urine Negative Normal Negative [facility] Comment on above: Performed By: #### A DDONUAPLUS, URDS ####[address] [address] [facility] Barbiturate Screen,Urine Negative Normal Negative [facility] Comment on above: Performed By: #### A DDONUAPLUS, URDS ####[address] [address] [facility] Benzodiazepines Screen,Urine Negative Normal Negative [facility] Comment on above: Performed By: #### A DDONUAPLUS, URDS ####[address] [place] [address] [place] Cannabinoid Screen,Urine Positive High Negative [facility] Comment on above: Result Comment: Thes e are unconfirmed results and should not be used for legal purposes. Drug Cut-Off Concentration: AMPH 1000 ng/mL LUCIA 200 ng/mL SONDRA 200 ng/mL COCM 300 ng/mL OP 300 ng/mL PCP 25 ng/mL THC 20 ng/mLPERFORMED BY:[address] [place], [place] [id number] MEDICAL DIRECTORKIMBERLYN SINGER M.D. Performed By: #### A DDONUAPLUS, URDS ####[address] Cocaine Screen,Urine Negative Normal Negative [facility] Comment on above: Performed By: #### A DDONUAPLUS, URDS ####[address] Opiate Screen,Urine Negative Normal Negative [facility] Comment on above: Performed By: #### A DDONUAPLUS, URDS ####[place] [id number] [facility] Phencyclidine Screen,Urine Negative Normal Negative [facility] Comment on above: Performed By: #### A DDONUAPLUS, URDS ####[address] ECG 12 lead ECGon 03-08-2022 ECG 12 lead ECG Normal [facility] ECG 12 lead ECG Normal [facility] Eosinophils Auto (Bld) [#/Vo l]Ordered By: Tammy Smyth on 03-08-2022 Eosinophils (Bld) [#/Vol] 0.0 10*3/uL 0.0-0.45 [facility] Eosinophils/100 WBC Auto (Bl d)Ordered By: Tammy Smyth on 03-08-2022 Eosinophils/100 WBC (Bld) 0.0 % . [facility] Erythrocyte distribution wid th Auto (RBC) [Ratio]Ordered By: Tammy Smyth on 03-08-2022 Erythrocyte distribution width (RBC) [Ratio] 14.2 % 11.9-15.3 [facility] Estimated glomerular filtrat ion rate (GFR) non- AmericanOrdered By: Tammy Smyth on 03-08-2022 GFR/1.73 sq M.predicted among non-blacks MDRD (S/P/Bld) [Vol rate/Area] > 60 mL/Min [facility] Ethanol [Mass/volume] in Uri neOrdered By: Denice Buckner on 03-08-2022 Ethanol (U) [Mass/Vol] See comment . [facility] Comment on above: Test not performed. Insufficient specimen to perform orcomplete analysis.contacted your facility on 03-15-2022 Ethanol, Urineon 03-08-2022 Ethanol, Urine Normal . [facility] Comment on above: Result Comment: Test not performed. Insufficient specimen to perform or complete analysis. contacted your facility on [phone] BY:[place] [address] [address] [place], [place] [phone] MEDICAL DIRECTORKIMBERLYN SINGER M.D. Performed By: #### E THANOL UR ####[facility] , Globulin Calc (S) [Mass/Vol] Ordered By: Tammy Smyth on 03-08-2022 Globulin (S) [Mass/Vol] 3.0 g/dL [facility] Glucose Glucometer (BldC) [M ass/Vol]Ordered By: Barry Colby on 03-08-2022 Glucose [Mass/Vol] 236 mg/dL [facility] Comment on above: Random Glucose Refer ence Range is dependent on time and content of last meal. Glucose of more than 200 mg/dL in a nonstressed, ambulatory subject supports the diagnosis of Diabetes Mellitus. Glucose Poct Glucometerson 1 05-09-2021 Glucose [Mass/Vol] 236 mg/dL Normal [facility] Comment on above: Result Comment: [place] Glucose Reference Range is dependent on time and content of last meal. Glucose of more than 200 mg/dL in a nonstressed, ambulatory subject supports the diagnosis of Diabetes Mellitus.PERFORMED BY:[place] [address] [address] [place] [phone] MEDICAL DIRECTORKIMBERLYN SINGER M.D. Performed By: #### G CHUCK ####Point of Care testing, Hematocrit Auto (Bld) [Volum e fraction]Ordered By: Tammy Smyth on 03-08-2022 Hematocrit (Bld) [Volume fraction] 28.4 % 34.0-46.4 [facility] Hemoglobin [Mass/volume] in BloodOrdered By: Tammy Smyth on 03-08-2022 Hemoglobin (Bld) [Mass/Vol] 9.7 g/dL 11.8-15.4 [facility] Hypochromia LM Ql (Bld)Order ed By: Tammy Smyth on 03-08-2022 Hypochromia Ql (Bld) Moderate [facility] Ketones Auto test strip (U) [Mass/Vol]Ordered By: Tammy Smyth on 03-08-2022 Ketones (U) [Mass/Vol] 2+ Negative Fi [facility] Laboratory - Chemistry and C hemistry - challengeOrdered By: Barry Colby on 03-08-2022 CO2 [Moles/Vol] 22.4 mmol/L 23.0-27.0 [facility] HCO3 (Bld) [Moles/Vol] 21.5 mmol/L 23.0-29.0 [facility] Laboratory - Chemistry and C hemistry - challengeOrdered By: Tammy Smyth on 03-08-2022 Magnesium [Mass/Vol] 0.8 mg/dL 1.6-2.6 [facility] Comment on above: Results calledat 144 4 on 03/08/22 Laboratory - CoagulationOrde red By: Tammy Smyth on 03-08-2022 PT Coag (PPP) [Time] 16.9 s 9.0-12.9 [facility] Laboratory - Drug toxicology Ordered By: Tammy Smyth on 03-08-2022 Opiates Ql (U) Negative Negative [facility] Laboratory - UrinalysisOrder ed By: Tammy Smyth on 03-08-2022 Hyaline casts LM Ql (Urine sed) 0-8 [LPF] 0-8 [facility] Lactic Acidon 03-08-2022 Lactate [Moles/Vol] 1.6 mmol/L Normal 0.5-2.[address] [facility] Comment on above: Order Comment: TOO O LD TO USE NOW PER CHEM Result Comment: PERF ORMED BY:[facility] [place], [place] [phone] MEDICAL DIRECTORKIMBERLYN SINGER M.D. Performed By: #### C UBLD, LACTIC ####[facility] [place] [address] [facility] Leukocytes [#/volume] correc negar for nucleated erythrocytes in Blood by Automated counOrdered By: Tammy Smyth on 03-08-2022 WBC corrected for nucl RBC Auto (Bld) [#/Vol] 12.8 10*3/uL 3.8-11.6 [facility] Lymphocytes Auto (Bld) [#/Vo l]Ordered By: Tammy Smyth on 03-08-2022 Lymphocytes (Bld) [#/Vol] 1.2 10*3/uL 1.00-4.8 [facility] Lymphocytes/100 WBC Auto (Bl d)Ordered By: Tammy Smyth on 03-08-2022 Lymphocytes/100 WBC (Bld) 9.5 % . [facility] MCH Auto (RBC) [Entitic mass ]Ordered By: Tammy Smyth on 03-08-2022 MCH (RBC) [Entitic mass] 31.6 pg 24.7-34.3 [facility] MCHC Auto (RBC) [Mass/Vol]Or dered By: Tammy Smyth on 03-08-2022 MCHC (RBC) [Mass/Vol] 34.1 g/dL 32.0-35.0 [facility] MCV Auto (RBC) [Entitic vol] Ordered By: Tammy Smyth on 03-08-2022 MCV (RBC) [Entitic vol] 92.7 fL 80-100 F [facility] Magnesiumon 03-08-2022 Magnesium [Mass/Vol] 0.8 mg/dL Off scale low 1.6-2.6 [facility] Comment on above: Result Comment: Resu lts called at 1444 on 03/08/22PERFORMED BY:[facility] [place], [place] [phone] MEDICAL DIRECTORKIMBERLYN SINGER M.D. Performed By: #### M G ####[facility] [id number] [place] [address] [facility] Monocyte %Ordered By: Denzel Smyth on 03-08-2022 Monocyte % < 9 umol/L 11 [facility] Monocyte distribution width [Entitic volume] in Blood by AutomatedOrdered By: Tammy Smyth on 03-08-2022 Monocyte distribution width Auto (Bld) [Entitic vol] 22.30 % 0.00-20.00 [facility] Comment on above: For adults in ED, MD W > 20.0 may be associated with a higher risk of sepsis during the first 12 hrs of hospital admission Monocytes Auto (Bld) [#/Vol] Ordered By: Tammy Smyth on 03-08-2022 Monocytes (Bld) [#/Vol] 1.7 10*3/uL 0.0-0.8 [facility] Monocytes/100 WBC Auto (Bld) Ordered By: Tammy Smyth on 03-08-2022 Monocytes/100 WBC (Bld) 13.4 % . [facility] Neutrophils Auto (Bld) [#/Vo l]Ordered By: Tammy Smyth on 03-08-2022 Neutrophils (Bld) [#/Vol] 9.8 10*3/uL 1.8-7.7 [facility] Neutrophils/100 WBC Auto (Bl d)Ordered By: Tammy Smyth on 03-08-2022 Neutrophils/100 WBC (Bld) 77.0 % . [facility] Nitrite Test strip Ql (U)Ord ered By: Tammy Smyth on 03-08-2022 Nitrite Ql (U) Negative Negative [facility] No Panel InformationOrdered By: Barry Colby on 03-08-2022 Arterial Blood Base Excess -1.4 mmol/L -3.0-3.0 [facility] Arterial Blood Oxygen Content 3.3 mmol/L 6.6-9.7 [facility] Arterial Blood Oxygen Saturation 58.4 % 95.0-100.0 [facility] Arterial Blood Partial Pressure CO2 29.2 mm[Hg] 35.0-45.0 [facility] Arterial Blood Partial Pressure O2 30.3 mm[Hg] 80.0-100.0 [facility] Arterial Blood pH 7.48 7.35-7.45 [facility] Blood Gas Critical Value See comment [facility] Comment on above: Critical Value quintana d on: 03/08/2022 at 15:52 Blood Gas Sample Site Venous Fir [facility] FiO2 21 % [facility] No Panel InformationOrdered By: Tammy Smyth on 03-08-2022 Estimated GFR () > 60 mL/Min [facility] Comment on above: GFR estimated refere nce range: According to KDOQI guidelines, <60 ml/min/1.73m2 is sufficient to diagnose a patient with chronic kidney disease. Pharmacy Creatinine Clearance (Chem 82.80 [facility] Nucleated erythrocytes [Pres ence] in Blood by Automated countOrdered By: Tammy Smyth on 03-08-2022 Nucleated RBC Auto Ql (Bld) 0.0 /100{WBC} 0-0.5 [facility] Partial Thromboplastin Timeo n 03-08-2022 aPTT Coag (Bld) [Time] 31.5 s Normal 25.1-36.5 [facility] Comment on above: Result Comment: PERF ORMED BY:[facility] [place], [place] [phone] MEDICAL DIRECTORKIMBERLYN SINGER M.D. Performed By: #### H S TROP, PT, CK, CKMB, PTT, CMP, SCAN CBC ####[facility] [place] [address] [facility] Phencyclidine Screen Ql (U)O rdered By: Tammy Smyth on 03-08-2022 Phencyclidine Ql (U) Negative Negative [facility] Phosphoruson 03-08-2022 Phosphate [Mass/Vol] 1.7 mg/dL Low 2.5-4.6 [facility] Comment on above: Order Comment: Comme nt add on Result Comment: PERF ORMED BY:[facility] [place] [place], [place] [phone] MEDICAL DIRECTORKIMBERLYN SINGER M.D. Performed By: #### P HOS ####[facility] [id number] [place] [address] [facility] Platelet adequacy [Presence] in Blood by Light microscopyOrdered By: Tammy Smyth on 03-08-2022 Platelets LM Ql (Bld) Normal Normal Fir [facility] Platelet mean volume Auto (B ld) [Entitic vol]Ordered By: Tammy Smyth on 03-08-2022 Platelet mean volume (Bld) [Entitic vol] 8.8 fL 6.3-10.7 [facility] Platelet morphology finding [Identifier] in BloodOrdered By: Tammy Smyth on 03-08-2022 Platelet morphology finding Nom (Bld) Normal Normal [facility] Platelet poor plasma interna tional normalized ratio (INR) by coagulation assay (relatOrdered By: Tammy Smyth on 03-08-2022 INR Coag (PPP) [Relative time] 1.5 {INR} [facility] Comment on above: INR Therapeutic Rang [...] 03-08-2022 Platelets (Bld) [#/Vol] 348 10*3/uL 150-450 [facility] Poikilocytosis [Presence] in Blood by Light microscopyOrdered By: Tammy Smyth on 03-08-2022 Poikilocytosis LM Ql (Bld) Slight [facility] Protein Auto test strip (U) [Mass/Vol]Ordered By: Tammy Smyth on 03-08-2022 Protein (U) [Mass/Vol] 30 mg/dL Negative [facility] Protein [Mass/volume] in Ser um or PlasmaOrdered By: Tammy Smyth on 03-08-2022 Protein [Mass/Vol] 5.6 g/dL 6.1-7.9 [facility] Prothrombin Time INRon 03-08 INR Coag (PPP) [Relative time] 1.5 {INR} Normal [facility] Comment on above: Result Comment: INR [...] PT, CK, CKMB, PTT, CMP, SCAN CBC ####[facility] [id number] PT Coag (PPP) [Time] 16.9 s High 9.0-12.9 [facility] Comment on above: Performed By: #### H S TROP, PT, CK, CKMB, PTT, CMP, SCAN CBC ####[facility] [id number] RBC Auto (Bld) [#/Vol]Ordere d By: Tammy Smyth on 03-08-2022 RBC (Bld) [#/Vol] 3.06 10*6/uL 3.60-5.[address] [facility] RBC morphologyOrdered By: Dolores Smyth on 03-08-2022 RBC morphology finding Nom (Bld) N/A [facility] Red blood cell stomatocyte d etectionOrdered By: Tammy Smyth on 03-08-2022 Stomatocytes LM Ql (Bld) Slight [facility] Scan and CBCon 03-08-2022 Anisocytosis Ql (Bld) Slight Normal [facility] Comment on above: Performed By: #### H S TROP, PT, CK, CKMB, PTT, CMP, SCAN CBC ####[address] Basophils (Bld) [#/Vol] 0.0 10*3/uL Normal 0.0-0.2 [facility] Comment on above: Performed By: #### H S TROP, PT, CK, CKMB, PTT, CMP, SCAN CBC ####[address] Basophils/100 WBC (Bld) 0.1 % Normal . [facility] Comment on above: Performed By: #### H S TROP, PT, CK, CKMB, PTT, CMP, SCAN CBC ####[address] Eosinophils (Bld) [#/Vol] 0.0 10*3/uL Normal 0.0-0.45 [facility] Comment on above: Performed By: #### H S TROP, PT, CK, CKMB, PTT, CMP, SCAN CBC ####[address] Eosinophils/100 WBC (Bld) 0.0 % Normal . [facility] Comment on above: Performed By: #### H S TROP, PT, CK, CKMB, PTT, CMP, SCAN CBC ####[address] Erythrocyte distribution width (RBC) [Ratio] 14.2 % Normal 11.9-15.3 [facility] Comment on above: Performed By: #### H S TROP, PT, CK, CKMB, PTT, CMP, SCAN CBC ####[address] Hematocrit (Bld) [Volume fraction] 28.4 % Low 34.0-46.4 [facility] Comment on above: Performed By: #### H S TROP, PT, CK, CKMB, PTT, CMP, SCAN CBC ####[address] Hemoglobin (Bld) [Mass/Vol] 9.7 g/dL Low 11.8-15.4 [facility] Comment on above: Performed By: #### H S TROP, PT, CK, CKMB, PTT, CMP, SCAN CBC ####[address] Hypochromasia Moderate Normal [facility] Comment on above: Performed By: #### H S TROP, PT, CK, CKMB, PTT, CMP, SCAN CBC ####[address] Lymphocytes (Bld) [#/Vol] 1.2 10*3/uL Normal 1.00-4.8 [facility] Comment on above: Performed By: #### H S TROP, PT, CK, CKMB, PTT, CMP, SCAN CBC ####[address] Lymphocytes/100 WBC (Bld) 9.5 % Normal . [facility] Comment on above: Performed By: #### H S TROP, PT, CK, CKMB, PTT, CMP, SCAN CBC ####[address] MCH (RBC) [Entitic mass] 31.6 pg Normal 24.7-34.3 [facility] Comment on above: Performed By: #### H S TROP, PT, CK, CKMB, PTT, CMP, SCAN CBC ####[address] MCV (RBC) [Entitic vol] 92.7 fL Normal 80-100 [facility] Comment on above: Performed By: #### H S TROP, PT, CK, CKMB, PTT, CMP, SCAN CBC ####[address] Mean Corpuscular HGB Conc 34.1 g/dL Normal 32.0-35.0 [facility] Comment on above: Performed By: #### H S TROP, PT, CK, CKMB, PTT, CMP, SCAN CBC ####[address] Monocytes (Bld) [#/Vol] 1.7 10*3/uL High 0.0-0.8 [facility] Comment on above: Performed By: #### H S TROP, PT, CK, CKMB, PTT, CMP, SCAN CBC ####[address] Monocytes/100 WBC (Bld) 22.30 % High 0.00-20.00 [facility] Comment on above: Result Comment: For adults in ED, MDW > 20.0 may be associated with a higher risk of sepsis during the first 12 hrs of hospital admission Performed By: #### H S TROP, PT, CK, CKMB, PTT, CMP, SCAN CBC ####[address] Monocytes/100 WBC (Bld) 13.4 % Normal . [facility] Comment on above: Performed By: #### H S TROP, PT, CK, CKMB, PTT, CMP, SCAN CBC ####[address] Neutrophils (Bld) [#/Vol] 9.8 10*3/uL High 1.8-7.7 [facility] Comment on above: Performed By: #### H S TROP, PT, CK, CKMB, PTT, CMP, SCAN CBC ####[address] Neutrophils/100 WBC (Bld) 77.0 % Normal . [facility] Comment on above: Performed By: #### H S TROP, PT, CK, CKMB, PTT, CMP, SCAN CBC ####[address] NRBC% 0.0 /100{WBC} Normal 0-0.5 [facility] Comment on above: Performed By: #### H S TROP, PT, CK, CKMB, PTT, CMP, SCAN CBC ####[place] [id number] [facility] Platelet Estimate Normal Normal Normal [facility] Comment on above: Performed By: #### H S TROP, PT, CK, CKMB, PTT, CMP, SCAN CBC ####[place] [id number] [facility] Platelet mean volume (Bld) [Entitic vol] 8.8 fL Normal 6.3-10.7 [facility] Comment on above: Performed By: #### H S TROP, PT, CK, CKMB, PTT, CMP, SCAN CBC ####[address] Platelet Morphology Normal Normal Normal [facility] Comment on above: Result Comment: PERF ORMED BY:[address] [place], [place] [phone] MEDICAL DIRECTORKIMBERLYN SINGER M.D. Performed By: #### H S TROP, PT, CK, CKMB, PTT, CMP, SCAN CBC ####[place] [id number] [facility] Platelets (Bld) [#/Vol] 348 10*3/uL Normal 150-450 [facility] Comment on above: Performed By: #### H S TROP, PT, CK, CKMB, PTT, CMP, SCAN CBC ####[address] Poikilocytosis Slight Normal [facility] Comment on above: Performed By: #### H S TROP, PT, CK, CKMB, PTT, CMP, SCAN CBC ####[address] RBC (Bld) [#/Vol] 3.06 10*6/uL Low 3.60-5.[address] [facility] Comment on above: Performed By: #### H S TROP, PT, CK, CKMB, PTT, CMP, SCAN CBC ####[place] [id number] [facility] Stomatocytes Slight Normal [facility] Comment on above: Performed By: #### H S TROP, PT, CK, CKMB, PTT, CMP, SCAN CBC ####[address] WBC (Bld) [#/Vol] 12.8 10*3/uL High 3.8-11.[address] [facility] Comment on above: Performed By: #### H S TROP, PT, CK, CKMB, PTT, CMP, SCAN CBC ####[facility] [id number] [place] [id number] [facility] Serum or plasma alanine larsen otransferase measurement without P-5'-P (enzymatic activiOrdered By: Tammy Smyth on 03-08-2022 ALT No additional P-5'-P [Catalytic activity/Vol] 13 U/L 10-60 [facility] Serum or plasma albumin/glob ulin mass ratioOrdered By: Tammy Smyth on 03-08-2022 Albumin/Globulin [Mass ratio] 0.9 {ratio} [facility] Serum or plasma alkaline ventura sphatase measurement (enzymatic activity/volume)Ordered By: Tammy Smyth on 03-08-2022 ALP [Catalytic activity/Vol] 132 U/L 32-92 [facility] Serum or plasma anion gap de terminationOrdered By: Tammy Smyth on 03-08-2022 Anion gap [Moles/Vol] 5.7 mmol/L 6.0-15.0 [facility] Serum or plasma aspartate am inotransferase measurement (enzymatic activity/volume)Ordered By: Tammy Smyth on 03-08-2022 AST [Catalytic activity/Vol] 17 U/L 10-42 [facility] Serum or plasma calcium john urement (mass/volume)Ordered By: Tammy Smyth on 03-08-2022 Calcium [Mass/Vol] 7.0 mg/dL 8.2-10.2 [facility] Serum or plasma chloride tressa surement (moles/volume)Ordered By: Tammy Smyth on 03-08-2022 Chloride [Moles/Vol] 103 mmol/L 95-114 [facility] Serum or plasma creatine kin ase MB (CKMB)/total creatine kinase (CK) ratio by calculaOrdered By: Tammy Smyth on 03-08-2022 CK.MB Calc [Catalytic fraction] 2.8 % 0.00-2.50 [facility] Serum or plasma creatine kin ase MB measurement (mass/volume)Ordered By: Tammy Smyth on 03-08-2022 CK.MB [Mass/Vol] 1.3 ng/mL 0.6-6.3 [facility] Serum or plasma glucose john urement (mass/volume)Ordered By: Tammy Smyth on 03-08-2022 Glucose [Mass/Vol] 202 mg/dL 70-100 [facility] Comment on above: ADA recommended refe rence rangeRandom Glucose Reference Range is dependent on time and content of last meal. Glucose of more than 200 mg/dL in a nonstressed, ambulatory subject supports the diagnosis of Diabetes Mellitus. Serum or plasma potassium me asurement (moles/volume)Ordered By: Tammy Smyth on 03-08-2022 Potassium [Moles/Vol] 3.0 mmol/L 3.5-5.1 [facility] Serum or plasma sodium measu rement (moles/volume)Ordered By: Tammy Smyth on 03-08-2022 Sodium [Moles/Vol] 126 mmol/L 136-146 [facility] Serum or plasma total biliru bin measurement (mass/volume)Ordered By: Tammy Smyht on 03-08-2022 Bilirubin [Mass/Vol] 1.1 mg/dL 0.3-1.2 [facility] Serum or plasma total carbon dioxide measurement (moles/volume)Ordered By: Tammy Smyth on 03-08-2022 CO2 [Moles/Vol] 20.3 mmol/L 22.0-30.0 [facility] Serum or plasma urea nitroge n measurement (mass/volume)Ordered By: Tammy Smyth on 03-08-2022 Urea nitrogen [Mass/Vol] 8 mg/dL 9-23 [facility] Specific gravity Auto test s trip (U) [Rel density]Ordered By: Tammy Smyth on 03-08-2022 Specific gravity (U) [Rel density] 1.015 1.001-1.03 0 [facility] Squamous epithelial cells de tection in urine sediment by light microscopyOrdered By: Tammy Smyth on 03-08-2022 Epithelial cells.squamous LM Ql (Urine sed) 1-2 [HPF] 0-2 [facility] Troponin I High Sensitivityo n 03-08-2022 Troponin I High Sensitivity 33 pg/mL High 0-15 [facility] Comment on above: Result Comment: PERF ORMED BY:[facility], [place] [phone] MEDICAL DIRECTORKIMBERLYN SINGER M.D. Performed By: #### H S TROP, PT, CK, CKMB, PTT, CMP, SCAN CBC ####[facility] [place] [address] [facility] Troponin I.cardiac [Mass/vol ume] in Serum or Plasma by High sensitivity methodOrdered By: Tammy Smyth on 03-08-2022 Troponin I.cardiac High sensitivity method [Mass/Vol] 33 pg/mL 0-15 [facility] Urine bacteria detection by automated methodOrdered By: Tammy Smyth on 03-08-2022 Bacteria Auto Ql (U) None seen None Seen [facility] Urine clarity by refractomet ry automatedOrdered By: Tammy Smyth on 03-08-2022 Clarity Refractometry automated (U) Clear Clear [facility] Urine cocaine detectionOrder ed By: Tammy Smyth on 03-08-2022 Cocaine Ql (U) Negative Negative [facility] Urine glucose measurement by automated test strip (mass/volume)Ordered By: Tammy Smyth on 03-08-2022 Glucose Auto test strip (U) [Mass/Vol] 250 mg/dL Normal [facility] Urine hemoglobin detection b y automated test stripOrdered By: Tammy Smyth on 03-08-2022 Hemoglobin Auto test strip Ql (U) Trace Negative [facility] Urine lactic acid measuremen tOrdered By: Tammy Smyth on 03-08-2022 Lactate (U) [Moles/Vol] 1.6 mmol/L 0.5-2.2 F [facility] Urine leukocyte esterase det ection by automated test stripOrdered By: Tammy Smyth on 03-08-2022 Leukocyte esterase Auto test strip Ql (U) Negative Negative [facility] Urine sediment renal epithel ial cell count by microscopy (number/high power field)Ordered By: Tammy Smyth on 03-08-2022 Epithelial cells.renal LM.HPF (Urine sed) [#/Area] None seen [HPF] 0-1 [facility] Urobilinogen Auto test strip (U) [Mass/Vol]Ordered By: Tammy Smyth on 03-08-2022 Urobilinogen (U) [Mass/Vol] Normal mg/dL Normal [facility] WBC Auto (Bld) [#/Vol]Ordere d By: Tammy Smyth on 03-08-2022 WBC (Bld) [#/Vol] 12.8 10*3/uL 3.8-11.[address] [facility] XR chest 1V portableon 03-08 XR chest 1V portable Normal [facility] pH Auto test strip (U)Ordere d By: Tammy Smyth on 03-08-2022 pH (U) 8.0 [pH] 5.0-9.0 [facility] Basic Metabolic Panelon 11-2 Anion gap [Moles/Vol] Not performed Normal 6.0-15.0 [facility] Comment on above: Performed By: #### B MP ####[facility] [place] [address] [facility] Calcium [Mass/Vol] 8.2 mg/dL Normal 8.2-10.2 [facility] Comment on above: Performed By: #### B MP ####[facility] [place] [address] [place] Chloride [Moles/Vol] 97 mmol/L Normal 95-114 [facility] Comment on above: Performed By: #### B MP ####[facility] [place] [address] [facility] CO2 [Moles/Vol] 24.4 mmol/L Normal 22.0-30.0 [facility] Comment on above: Performed By: #### B MP ####[facility] [place] [address] [facility] Creatinine [Mass/Vol] 0.76 mg/dL Normal 0.44-1.03 [facility] Comment on above: Performed By: #### B MP ####[address] [address] [facility] Creatinine Clr Calc Pharmacy 83.32 [facility] Comment on above: Result Comment: PERF ORMED BY:[place] [address] [address] [place], [place] [phone] MEDICAL ANDRE SINGER M.D. Performed By: #### B MP ####[address] [address] [facility] Estimated GFR ( Brenda > 60 [facility] Comment on above: Result Comment: GFR estimated reference range: According to KDOQI guidelines, <60 ml/min/1.73m2 is sufficient to diagnose a patient with chronic kidney disease. Performed By: #### B MP ####[address] [address] [facility] Estimated GFR (Non- Am > 60 [facility] Comment on above: Performed By: #### B MP ####[address] [address] [facility] Glucose [Mass/Vol] 134 mg/dL High 70-100 [facility] Comment on above: Result Comment: [place] om Glucose Reference Range is dependent on time and content of last meal. Glucose of more than 200 mg/dL in a nonstressed, ambulatory subject supports the diagnosis of Diabetes Mellitus. ADA recommended reference range Performed By: #### B MP ####[address] [address] [facility] Potassium Normal 3.5-5.1 [facility] Comment on above: Result Comment: Spec imen hemolyzed, redraw requested Performed By: #### B MP ####[address] [address] [facility] Sodium [Moles/Vol] 131 mmol/L Low 136-146 [facility] Comment on above: Performed By: #### B MP ####[address] [address] [facility] Urea nitrogen [Mass/Vol] 7 mg/dL Low 9-23 [facility] Comment on above: Performed By: #### B MP ####[place] [id number] [facility] Basophils Auto (Bld) [#/Vol] Ordered By: Mike Brannon on 03-06-2022 Basophils (Bld) [#/Vol] 0.1 10*3/uL 0.0-0.2 [facility] Basophils/100 WBC Auto (Bld) Ordered By: Mike Brannon on 03-06-2022 Basophils/100 WBC (Bld) 1.2 % . F [facility] Complete Blood Count Auto Di ffon 03-06-2022 Basophils (Bld) [#/Vol] 0.1 10*3/uL Normal 0.0-0.2 [facility] Comment on above: Result Comment: PERF ORMED BY:[address] [place], [place] [phone] MEDICAL DIRECTORKIMBERLYN SINGER M.D. Performed By: #### C BC ####[address] Basophils/100 WBC (Bld) 1.2 % Normal . [facility] Comment on above: Performed By: #### C BC ####[address] Eosinophils (Bld) [#/Vol] 0.0 10*3/uL Normal 0.0-0.45 [facility] Comment on above: Performed By: #### C BC ####[place] [id number] [facility] Eosinophils/100 WBC (Bld) 0.7 % Normal . [facility] Comment on above: Performed By: #### C BC ####[address] Erythrocyte distribution width (RBC) [Ratio] 14.7 % Normal 11.9-15.3 [facility] Comment on above: Performed By: #### C BC ####[address] Hematocrit (Bld) [Volume fraction] 32.1 % Low 34.0-46.4 [facility] Comment on above: Performed By: #### C BC ####[address] Hemoglobin (Bld) [Mass/Vol] 10.8 g/dL Low 11.8-15.4 [facility] Comment on above: Performed By: #### C BC ####[address] Lymphocytes (Bld) [#/Vol] 1.5 10*3/uL Normal 1.00-4.8 [facility] Comment on above: Performed By: #### C BC ####[address] Lymphocytes/100 WBC (Bld) 23.3 % Normal . [facility] Comment on above: Performed By: #### C BC ####[address] MCH (RBC) [Entitic mass] 32.5 pg Normal 24.7-34.3 [facility] Comment on above: Performed By: #### C BC ####[address] MCV (RBC) [Entitic vol] 96.2 fL Normal 80-100 [facility] Comment on above: Performed By: #### C BC ####[address] Mean Corpuscular HGB Conc 33.7 g/dL Normal 32.0-35.0 [facility] Comment on above: Performed By: #### C BC ####[address] Monocytes (Bld) [#/Vol] 0.8 10*3/uL Normal 0.0-0.8 [facility] Comment on above: Performed By: #### C BC ####[address] Monocytes/100 WBC (Bld) 11.7 % Normal . [facility] Comment on above: Performed By: #### C BC ####[address] [address] [facility] Neutrophils (Bld) [#/Vol] 4.1 10*3/uL Normal 1.8-7.7 [facility] Comment on above: Performed By: #### C BC ####[address] [address] [facility] Neutrophils/100 WBC (Bld) 63.1 % Normal . [facility] Comment on above: Performed By: #### C BC ####[address] [address] [facility] NRBC% 0.3 /100{WBC} Normal 0-0.5 [facility] Comment on above: Performed By: #### C BC ####[place] [id number] [facility] Platelet mean volume (Bld) [Entitic vol] 8.3 fL Normal 6.3-10.7 [facility] Comment on above: Performed By: #### C BC ####[address] [address] [facility] Platelets (Bld) [#/Vol] 306 10*3/uL Normal 150-450 [facility] Comment on above: Performed By: #### C BC ####[address] [address] [facility] RBC (Bld) [#/Vol] 3.34 10*6/uL Low 3.60-5.[address] [facility] Comment on above: Performed By: #### C BC ####[address] [address] [facility] WBC (Bld) [#/Vol] 6.5 10*3/uL Normal 3.8-11.6 [facility] Comment on above: Performed By: #### C BC ####[address] [address] [facility] Creatinine and Glomerular fi ltration rate.predicted panel (S/P/Bld)Ordered By: NICHOLAS BLANC on 03-06-2022 Creatinine [Mass/Vol] 0.76 mg/dL 0.44-1.03 [facility] ECG 12 lead ECGon 03-06-2022 ECG 12 lead ECG Normal [facility] Eosinophils Auto (Bld) [#/Vo l]Ordered By: Mike Brannon on 03-06-2022 Eosinophils (Bld) [#/Vol] 0.0 10*3/uL 0.0-0.45 [facility] Eosinophils/100 WBC Auto (Bl d)Ordered By: Mike Brannon on 03-06-2022 Eosinophils/100 WBC (Bld) 0.7 % . [facility] Erythrocyte distribution wid th Auto (RBC) [Ratio]Ordered By: Mike Brannon on 03-06-2022 Erythrocyte distribution width (RBC) [Ratio] 14.7 % 11.9-15.3 [facility] Estimated glomerular filtrat ion rate (GFR) non- AmericanOrdered By: NICHOLAS BLANC on 03-06-2022 GFR/1.73 sq M.predicted among non-blacks MDRD (S/P/Bld) [Vol rate/Area] > 60 mL/Min [facility] Glucose Glucometer (BldC) [M ass/Vol]Ordered By: Asa Napoles on 03-06-2022 Glucose [Mass/Vol] 119 mg/dL [facility] Comment on above: Random Glucose Refer ence Range is dependent on time and content of last meal. Glucose of more than 200 mg/dL in a nonstressed, ambulatory subject supports the diagnosis of Diabetes Mellitus. Glucose Poct Glucometerson 1 05-06-2021 Glucose [Mass/Vol] 119 mg/dL Normal [facility] Comment on above: Result Comment: [place] Glucose Reference Range is dependent on time and content of last meal. Glucose of more than 200 mg/dL in a nonstressed, ambulatory subject supports the diagnosis of Diabetes Mellitus.PERFORMED BY:[place] [id number] [place], [place] [phone] MEDICAL DIRECTORKIMBERLYN SINGER M.D. Performed By: #### G LULS ####Point of Care testing, Commemt1 Glu2: Cleaned Meter Normal [facility] Comment on above: Result Comment: PERF ORMED BY:[facility] [place], [place] [phone] MEDICAL DIRECTORKIMBERLYN SINGER M.D. Performed By: #### G CHUCK ####Point of Care testing, Glucose [Mass/Vol] 129 mg/dL Normal [facility] Comment on above: Result Comment: [facility] Glucose Reference Range is dependent on time and content of last meal. Glucose of more than 200 mg/dL in a nonstressed, ambulatory subject supports the diagnosis of Diabetes Mellitus. Performed By: #### G LULS ####Point of Care testing, Hematocrit Auto (Bld) [Volum e fraction]Ordered By: Mike Brannon on 03-06-2022 Hematocrit (Bld) [Volume fraction] 32.1 % 34.0-46.4 [facility] Hemoglobin [Mass/volume] in BloodOrdered By: Mike Brannon on 03-06-2022 Hemoglobin (Bld) [Mass/Vol] 10.8 g/dL 11.8-15.4 [facility] Leukocytes [#/volume] correc negar for nucleated erythrocytes in Blood by Automated counOrdered By: Mike Brannon on 03-06-2022 WBC corrected for nucl RBC Auto (Bld) [#/Vol] 6.5 10*3/uL 3.8-11.6 [facility] Lymphocytes Auto (Bld) [#/Vo l]Ordered By: Mike Brannon on 03-06-2022 Lymphocytes (Bld) [#/Vol] 1.5 10*3/uL 1.00-4.8 [facility] Lymphocytes/100 WBC Auto (Bl d)Ordered By: Mike Brannon on 03-06-2022 Lymphocytes/100 WBC (Bld) 23.3 % . [facility] MCH Auto (RBC) [Entitic mass ]Ordered By: Mike Brannon on 03-06-2022 MCH (RBC) [Entitic mass] 32.5 pg 24.7-34.3 [facility] MCHC Auto (RBC) [Mass/Vol]Or dered By: Mike Brannon on 03-06-2022 MCHC (RBC) [Mass/Vol] 33.7 g/dL 32.0-35.0 [facility] MCV Auto (RBC) [Entitic vol] Ordered By: Mike Brannon on 03-06-2022 MCV (RBC) [Entitic vol] 96.2 fL 80-100 [facility] Monocytes Auto (Bld) [#/Vol] Ordered By: Mike Brannon on 03-06-2022 Monocytes (Bld) [#/Vol] 0.8 10*3/uL 0.0-0.8 [facility] Monocytes/100 WBC Auto (Bld) Ordered By: Mike Brannon on 03-06-2022 Monocytes/100 WBC (Bld) 11.7 % . F [facility] Neutrophils Auto (Bld) [#/Vo l]Ordered By: Mike Brannon on 03-06-2022 Neutrophils (Bld) [#/Vol] 4.1 10*3/uL 1.8-7.7 [facility] Neutrophils/100 WBC Auto (Bl d)Ordered By: Mike Brannon on 03-06-2022 Neutrophils/100 WBC (Bld) 63.1 % . [facility] No Panel InformationOrdered By: Asa Napoles on 03-06-2022 Bedside Glucose Comment Glu2: cleaned meter [facility] No Panel InformationOrdered By: NICHOLAS BLANC on 03-06-2022 Estimated GFR () > 60 mL/Min [facility] Comment on above: GFR estimated refere nce range: According to KDOQI guidelines, <60 ml/min/1.73m2 is sufficient to diagnose a patient with chronic kidney disease. Pharmacy Creatinine Clearance (Chem 83.32 [facility] Nucleated erythrocytes [Pres ence] in Blood by Automated countOrdered By: Mike Brannon on 03-06-2022 Nucleated RBC Auto Ql (Bld) 0.3 /100{WBC} 0-0.5 [facility] Platelet mean volume Auto (B ld) [Entitic vol]Ordered By: Mike Brannon on 03-06-2022 Platelet mean volume (Bld) [Entitic vol] 8.3 fL 6.3-10.7 [facility] Platelets Auto (Bld) [#/Vol] Ordered By: Mike Brannon on 03-06-2022 Platelets (Bld) [#/Vol] 306 10*3/uL 150-450 [facility] RBC Auto (Bld) [#/Vol]Ordere d By: Mike Brannon on 03-06-2022 RBC (Bld) [#/Vol] 3.34 10*6/uL 3.60-5.[address] [facility] Redraw Potassiumon 2 Potassium [Moles/Vol] 4.0 mmol/L Normal 3.5-5.1 [facility] Comment on above: Result Comment: PERF ORMED BY:[facility] [place] [place], [place] [phone] MEDICAL DIRECTORKIMBERLYN SINGER M.D. Performed By: #### R EDMIKKI K ####[facility] [place] [address] [facility] Serum or plasma anion gap de terminationOrdered By: NICHOLAS BLANC on 03-06-2022 Anion gap [Moles/Vol] TNP [facility] Comment on above: Test not performed Serum or plasma calcium john urement (mass/volume)Ordered By: NICHOLAS BLANC on 03-06-2022 Calcium [Mass/Vol] 8.2 mg/dL 8.2-10.2 [facility] Serum or plasma chloride tressa surement (moles/volume)Ordered By: NICHOLAS BLANC on 03-06-2022 Chloride [Moles/Vol] 97 mmol/L 95-114 [facility] Serum or plasma glucose john urement (mass/volume)Ordered By: NICHOLAS BLANC on 03-06-2022 Glucose [Mass/Vol] 134 mg/dL 70-100 [facility] Comment on above: ADA recommended refe rence rangeRandom Glucose Reference Range is dependent on time and content of last meal. Glucose of more than 200 mg/dL in a nonstressed, ambulatory subject supports the diagnosis of Diabetes Mellitus. Serum or plasma potassium me asurement (moles/volume)Ordered By: Ash Bernstein on 03-06-2022 Potassium [Moles/Vol] 4.0 mmol/L 3.5-5.1 [facility] Serum or plasma sodium measu rement (moles/volume)Ordered By: NICHOLAS BLANC on 03-06-2022 Sodium [Moles/Vol] 131 mmol/L 136-146 [facility] Serum or plasma total carbon dioxide measurement (moles/volume)Ordered By: NICHOLAS BLANC on 03-06-2022 CO2 [Moles/Vol] 24.4 mmol/L 22.0-30.0 [facility] Serum or plasma urea nitroge n measurement (mass/volume)Ordered By: NICHOLAS BLANC on 03-06-2022 Urea nitrogen [Mass/Vol] 7 mg/dL 9-23 [facility] WBC Auto (Bld) [#/Vol]Ordere d By: Mike Brannon on 03-06-2022 WBC (Bld) [#/Vol] 6.5 10*3/uL 3.8-11.6 [facility] XR shoulder LT min 2V*on XR shoulder LT min 2V* Normal [facility] CBC AUTO DIFFon 03-03-2022 BASO # 0.1 103/ul Normal 0.0-0.1 [facility] Comment on above: Performed By: #### B MP #### [facility] [address] [place] [address] Dr. Jordan Blackwell Basophils/100 WBC (Bld) 0.8 % Normal 0.2-2.0 [facility] Comment on above: Performed By: #### B MP #### [facility] [address] [address] [address] Jordan Blackwell EO # 0.1 103/ul Normal 0.0-0.7 [facility] Comment on above: Performed By: #### B MP #### [facility] [address] [address] [address] Jordan Blackwell Eosinophils/100 WBC (Bld) 0.7 % Critically low 0.9-7.0 [facility] Comment on above: Performed By: #### B MP #### [facility] [address] [address] [address] Jordan Blackwell Erythrocyte distribution width (RBC) [Ratio] 14.3 % Normal 11.0-15.0 [facility] Comment on above: Performed By: #### B MP #### [facility] [address] [place] [address] Dr. Jordan Blackwell Hematocrit (Bld) [Volume fraction] 32.6 % Critically low 36.0-48.0 [facility] Comment on above: Performed By: #### B MP #### [facility] [address] [place] [address] Dr. Jordan Blackwell Hemoglobin (Bld) [Mass/Vol] 10.7 g/dL Critically low 12.0-16.0 [facility] Comment on above: Performed By: #### B MP #### [facility] [address] [place] [address] Dr. Jordan Blackwell IG # 0.10 10e3/ul Critically high 0.00-0.03 [facility] Comment on above: Performed By: #### B MP #### [facility] [address] [place] [address] Dr. Jordan Blackwell IG % 1.3 % Critically high 0.0-0.5 [facility] Comment on above: Performed By: #### B MP #### [facility] [address] [place] [address] Dr. Jordan Blackwell LYMPH # 1.2 103/ul Normal 1.2-3.8 [facility] Comment on above: Performed By: #### B MP #### [facility] [address] [place] [address] Dr. Jordan Blackwell Lymphocytes/100 WBC (Bld) 16.4 % Critically low 20.5-60.0 [facility] Comment on above: Performed By: #### B MP #### [facility] [address] [place] [address] Dr. Jordan Blackwell MANUAL DIFF REQ NO Normal [facility] Comment on above: Performed By: #### B MP #### [facility] [address] [place] [address] Dr. Jordan Blackwell MCH (RBC) [Entitic mass] 31.8 pg Normal 26.7-34.0 [facility] Comment on above: Performed By: #### B MP #### [facility] [address] [place] [address] Dr. Jordan Blackwell MCHC (RBC) [Mass/Vol] 32.8 g/dL Normal 29.9-35.2 [facility] Comment on above: Performed By: #### B MP #### [facility] [address] [place] [address] Dr. Jordan Blackwell MCV (RBC) [Entitic vol] 96.7 fL Normal 81.0-99.0 [facility] Comment on above: Performed By: #### B MP #### [facility] [address] [place] [address] Dr. Jordan Blackwell MONO # 0.8 103/ul Normal 0.3-0.8 [facility] Comment on above: Performed By: #### B MP #### [facility] [address] [place] [address] Dr. Jordan Blackwell Monocytes/100 WBC (Bld) 10.6 % Normal 1.7-12.0 [facility] Comment on above: Performed By: #### B MP #### [facility] [address] [place] [address] Dr. Jordan Blackwell NEUT # 5.3 103/ul Normal 1.4-6.5 [facility] Comment on above: Performed By: #### B MP #### [facility] [address] [place] [address] Dr. Jordan Blackwell Neutrophils/100 WBC (Bld) 70.2 % Normal 43.0-75.0 [facility] Comment on above: Performed By: #### B MP #### [facility] [address] [place] [address] Dr. Jordan Blackwell Platelet mean volume (Bld) [Entitic vol] 9.5 fL Normal 9.5-13.5 [facility] Comment on above: Performed By: #### B MP #### [facility] [address] [place] [address] Dr. Jordan Blackwell PLT 342 103/ul Normal 150-450 [facility] Comment on above: Performed By: #### B MP #### [facility] [address] [place] [address] Dr. Jordan Blackwell RBC 3.37 106/ul Critically low 4.20-5.40 [facility] Comment on above: Performed By: #### B MP #### [facility] [address] [place] [address] Dr. Jordan Blackwell WBC 7.6 103/ul Normal 4.0-11.0 [facility] Comment on above: Performed By: #### B MP #### [facility] [address] [place] [address] Dr. Jordan Blackwell PROF CHEM 8 (BAS METB)on Anion gap [Moles/Vol] 11.1 mmol/L Normal [facility] Comment on above: Performed By: #### C BC #### [facility] [address] [place] [address] Dr. Jordan Blackwell Calcium [Mass/Vol] 8.7 mg/dL Normal 8.5-10.1 [facility] Comment on above: Performed By: #### C BC #### [facility] [address] [place] [address] Dr. Jordan Blackwell Chloride [Moles/Vol] 98 mmol/L Normal 98-107 [facility] Comment on above: Performed By: #### C BC #### [facility] [address] [place] [address] Dr. Jordan Blackwell CO2 [Moles/Vol] 28.1 mmol/L Normal 21.0-32.0 [facility] Comment on above: Performed By: #### C BC #### [facility] [address] [place] [address] Dr. Jordan Blackwell Creatinine [Mass/Vol] 0.73 mg/dL Normal 0.55-1.02 [facility] Comment on above: Performed By: #### C BC #### [facility] [address] [place] [address] Dr. Jordan Blackwell EGFR-AF SAMMARINESE >60 Normal >=60 [facility] Comment on above: Performed By: #### C BC #### [facility] [address] [address] [address] Jordan Blackwell EGFR-NON AF SAMMARINESE >60 Normal >=60 [facility] Comment on above: Performed By: #### C BC #### [facility] [address] [address] [address] Jordan Blackwell Glucose [Mass/Vol] 194 mg/dL Critically high 74-106 [facility] Comment on above: Performed By: #### C BC #### [facility] [address] [address] [address] Jordan Blackwell Potassium [Moles/Vol] 5.2 mmol/L Critically high 3.5-5.1 [facility] Comment on above: Performed By: #### C BC #### [facility] [address] [address] [address] Jordan Blackwell Sodium [Moles/Vol] 132 mmol/L Critically low 136-145 [facility] Comment on above: Performed By: #### C BC #### [facility] [address] [address] [address] Jordan Blackwell Urea nitrogen [Mass/Vol] 6.0 mg/dL Critically low 7.0-18.0 [facility] Comment on above: Performed By: #### C BC #### [facility] [address] [address] [address] Jordan Blackwell Urea nitrogen/Creatinine [Mass ratio] 8.2 mg/mg Normal [facility] Comment on above: Performed By: #### C BC #### [facility] [address] [address] [address] Jordan Blackwell COVID-19 Antigenon COVID-19 Antigen Normal [facility] Comment on above: Performed By: #### S PRASANNA COVID-19 YASMINE ####[facility] [id number] [facility] COVID-19 SOFIAOrdered By: isiah Napoles on 03-02-2022 SARS-CoV+SARS-CoV-2 (COVID-19) Ag IA.rapid Ql (Resp) Negative Negative [facility] Comment on above: This is a duplicate Yasmine SARS Antigen (FREDERIC) result to be used for statistical tracking purpose only. No Panel InformationOrdered By: Asa Napoles on 03-02-2022 SARS Antigen (LFIA) [facility] SARS Antigen (LFIA) [facility] Yasmine Ag Negativeon 03-02-20 22 Yasmine Ag Negative Negative Normal Negative [facility] Comment on above: Result Comment: This is a duplicate Yasmine SARS Antigen (FREDERIC) result to be used for statistical tracking purpose only.PERFORMED BY:[facility] [place], [place] [phone] MEDICAL DIRECTORKIMBERLYN SINGER M.D. Performed By: #### S OFIANEG, COVID-19 YASMINE ####[facility] [place] [address] [facility] CBC W MANUAL DIFFon 02-27-20 22 ATYPICAL LYMPH # Normal [facility] Comment on above: Performed By: #### U RCX #### [facility] [address] [place] [address] Dr. Jordan Blackwell ATYPICAL LYMPH % Normal [facility] Comment on above: Performed By: #### U RCX #### [facility] [address] [place] [address] Dr. Jordan Blackwell BAND # Normal 0.0-0.3 [facility] Comment on above: Performed By: #### U RCX #### [facility] [address] [place] [address] Dr. Jordan Blackwell BAND % Normal 0-5 [facility] Comment on above: Performed By: #### U RCX #### [facility] [address] [place] [address] Dr. Jordan BAILEY # 0.00 103/ul Normal 0.00-0.10 [facility] Comment on above: Performed By: #### U RCX #### [facility] [address] [place] [address] Dr. Yilan Blackwell BASOM % 0.0 % Critically low 0.2-2.0 [facility] Comment on above: Performed By: #### U RCX #### [facility] [address] [place] [address] Dr. Jordan Blackwell BLAST # Normal [facility] Comment on above: Performed By: #### U RCX #### [facility] [address] [place] [address] Dr. Jordan Blackwell BLAST % Normal [facility] Comment on above: Performed By: #### U RCX #### [facility] [address] [place] [address] Dr. Jordan Blackwell CORRECTED WBC Normal 4.0-11.0 [facility] Comment on above: Performed By: #### U RCX #### [facility] [address] [place] [address] Dr. Jordan Blackwell EOS # 0.11 103/ul Normal 0.00-0.70 [facility] Comment on above: Performed By: #### U RCX #### [facility] [address] [place] [address] Dr. Jordan Blackwell EOS% 1.0 % Normal 0.9-7.0 [facility] Comment on above: Performed By: #### U RCX #### [facility] [address] [place] [address] Dr. Jordan Blackwell HCT 31.5 % Critically low 36.0-48.0 [facility] Comment on above: Performed By: #### U RCX #### [facility] [address] [place] [address] Dr. Jordan Blackwell HGB 10.6 g/dl Critically low 12.0-16.0 [facility] Comment on above: Performed By: #### U RCX #### [facility] [address] [place] [address] Dr. Jordan Blackwell LYMPHM # 2.62 103/ul Normal 1.20-3.80 [facility] Comment on above: Performed By: #### U RCX #### [facility] [address] [place] [address] Dr. Jordan Blackwell LYMPHM% 23.0 % Normal 20.5-60.0 [facility] Comment on above: Performed By: #### U RCX #### [facility] [address] [place] [address] Dr. Jordan Blackwell MCH 31.7 pg Normal 26.7-34.0 [facility] Comment on above: Performed By: #### U RCX #### [facility] [address] [place] [address] Dr. Jordan Blackwell MCHC 33.7 g/dl Normal 29.9-35.2 [facility] Comment on above: Performed By: #### U RCX #### [facility] [address] [place] [address] Dr. Jordan Blackwell MCV 94.3 fL Normal 81.0-99.0 [facility] Comment on above: Performed By: #### U RCX #### [facility] [address] [place] [address] Dr. Jordan Blackwell METAMYELOCYTE # Normal [facility] Comment on above: Performed By: #### U RCX #### [facility] [address] [place] [address] Dr. Jordan Blackwell METAMYELOCYTE % Normal [facility] Comment on above: Performed By: #### U RCX #### [facility] [address] [place] [address] Dr. Jordan Blackwell MONOM# 0.68 103/ul Normal 0.30-0.80 [facility] Comment on above: Performed By: #### U RCX #### [facility] [address] [place] [address] Dr. Jordan Blackwell MONOM% 6.0 % Normal 1.7-12.0 [facility] Comment on above: Performed By: #### U RCX #### [facility] [address] [place] [address] Dr. Jordan Blackwell MPV 9.1 fL Critically low 9.5-13.5 [facility] Comment on above: Performed By: #### U RCX #### [facility] [address] [address] [address] Jordan Blackwell MYELOCYTE # Normal [facility] Comment on above: Performed By: #### U RCX #### [facility] [address] [address] [address] Jordan Blackwell MYELOCYTE % Normal [facility] Comment on above: Performed By: #### U RCX #### [facility] [address] [place] [address] Dr. Jordan Blackwell NRBC Normal [facility] Comment on above: Performed By: #### U RCX #### [facility] [address] [place] [address] Dr. Jordan Blackwell PLT 334 103/ul Normal 150-450 [facility] Comment on above: Performed By: #### U RCX #### [facility] [address] [place] [address] Dr. Jordan Blackwell RBC 3.34 106/ul Critically low 4.20-5.40 [facility] Comment on above: Performed By: #### U RCX #### [facility] [address] [place] [address] Dr. Jordan Blackwell RDW 14.6 % Normal 11.0-15.0 [facility] Comment on above: Performed By: #### U RCX #### [facility] [address] [place] [address] Dr. Jordan Blackwell SEG # 7.98 103/ul Critically high 1.40-6.50 [facility] Comment on above: Performed By: #### U RCX #### [facility] [address] [place] [address] Dr. Jordan Blackwell SEG % 70.0 % Normal 43.0-75.0 [facility] Comment on above: Performed By: #### U RCX #### [facility] [address] [place] [address] Dr. Jordan Blackwell WBC 11.4 103/ul Critically high 4.0-11.0 [facility] Comment on above: Performed By: #### U RCX #### [facility] [address] [place] [address] Dr. Jordan Blackwell PROF 14(COMP METB)on 02-26- 022 Albumin [Mass/Vol] 2.6 g/dL Critically low 3.4-5.0 [facility] Comment on above: Performed By: #### O SMO #### [facility] [address] [place] [address] Dr. Jordan Blackwell Albumin/Globulin [Mass ratio] 0.7 {ratio} Normal [facility] Comment on above: Performed By: #### O SMO #### [facility] [address] [place] [address] Dr. Jordan Blackwell ALP [Catalytic activity/Vol] 113 U/L Normal 46-116 [facility] Comment on above: Performed By: #### O SMO #### [facility] [address] [place] [address] Dr. Jordan Blackwell ALT [Catalytic activity/Vol] 18 U/L Normal 14-59 [facility] Comment on above: Performed By: #### O SMO #### [facility] [address] [place] [address] Dr. Jordan Blackwell Anion gap [Moles/Vol] 13.0 mmol/L Normal [facility] Comment on above: Performed By: #### O SMO #### [facility] [address] [place] [address] Dr. Jordan Blackwell AST [Catalytic activity/Vol] 16 U/L Normal 15-37 [facility] Comment on above: Performed By: #### O SMO #### [facility] [address] [place] [address] Dr. Jordan Blackwell Bilirubin [Mass/Vol] 0.6 mg/dL Normal 0.2-1.0 [facility] Comment on above: Performed By: #### O SMO #### [facility] [address] [place] [address] Dr. Jordan Blackwell Calcium [Mass/Vol] 8.0 mg/dL Critically low 8.5-10.1 [facility] Comment on above: Performed By: #### O SMO #### [facility] [address] [place] [address] Dr. Jordan Blackwell Chloride [Moles/Vol] 101 mmol/L Normal 98-107 [facility] Comment on above: Performed By: #### O SMO #### [facility] [address] [address] [address] Jordan Blackwell CO2 [Moles/Vol] 24.2 mmol/L Normal 21.0-32.0 [facility] Comment on above: Performed By: #### O SMO #### [facility] [address] [place] [address] Dr. Jordan Blackwell Creatinine [Mass/Vol] 0.84 mg/dL Normal 0.55-1.02 [facility] Comment on above: Performed By: #### O SMO #### [facility] [address] [place] [address] Dr. Jordan Blackwell EGFR-AF SAMMARINESE >60 Normal >=60 [facility] Comment on above: Performed By: #### O SMO #### [facility] [address] [place] [address] Dr. Jordan Blackwell EGFR-NON AF SAMMARINESE >60 Normal >=60 [facility] Comment on above: Performed By: #### O SMO #### [facility] [address] [place] [address] Dr. Jordan Blackwell Globulin (S) [Mass/Vol] 3.5 g/dL Normal [facility] Comment on above: Performed By: #### O SMO #### [facility] [address] [place] [address] Dr. Jordan Blackwell Glucose [Mass/Vol] 131 mg/dL Critically high 74-106 [facility] Comment on above: Performed By: #### O SMO #### [facility] [address] [place] [address] Dr. Jordan Blackwell Potassium [Moles/Vol] 4.2 mmol/L Normal 3.5-5.1 [facility] Comment on above: Performed By: #### O SMO #### [facility] [address] [place] [address] Dr. Jordan Blackwell Protein [Mass/Vol] 6.1 g/dL Critically low 6.4-8.2 [facility] Comment on above: Performed By: #### O SMO #### [facility] [address] [place] [address] Dr. Jordan Blackwell Sodium [Moles/Vol] 134 mmol/L Critically low 136-145 [facility] Comment on above: Performed By: #### O SMO #### [facility] [address] [place] [address] Dr. Jordan Blackwell Urea nitrogen [Mass/Vol] 7.0 mg/dL Normal 7.0-18.0 [facility] Comment on above: Performed By: #### O SMO #### [facility] [address] [place] [address] Dr. Jordan Blackwell Urea nitrogen/Creatinine [Mass ratio] 8.3 mg/mg Normal [facility] Comment on above: Performed By: #### O SMO #### [facility] [address] [place] [address] Dr. Jordan Blackwell CBC AUTO DIFFon 02-25-2022 BASO # 0.0 103/ul Normal 0.0-0.1 [facility] Comment on above: Performed By: #### U AMIC #### [facility] [address] [place] [address] Dr. Jordan Blackwell Basophils/100 WBC (Bld) 0.2 % Normal 0.2-2.0 [facility] Comment on above: Performed By: #### U AMIC #### [facility] [address] [place] [address] Dr. Jordan Blackwell EO # 0.1 103/ul Normal 0.0-0.7 [facility] Comment on above: Performed By: #### U AMIC #### [facility] [address] [place] [address] Dr. Jordan Blackwell Eosinophils/100 WBC (Bld) 1.2 % Normal 0.9-7.0 [facility] Comment on above: Performed By: #### U AMIC #### [facility] [address] [place] [address] Dr. Jordan Blackwell Erythrocyte distribution width (RBC) [Ratio] 14.7 % Normal 11.0-15.0 [facility] Comment on above: Performed By: #### U AMIC #### [facility] [address] [place] [address] Dr. Jordan Blackwell Hematocrit (Bld) [Volume fraction] 29.2 % Critically low 36.0-48.0 [facility] Comment on above: Performed By: #### U AMIC #### [facility] [address] [place] [address] Dr. Jordan Blackwell Hemoglobin (Bld) [Mass/Vol] 9.6 g/dL Critically low 12.0-16.0 [facility] Comment on above: Performed By: #### U AMIC #### [facility] [address] [place] [address] Dr. Jordan Blackwell IG # 1.13 10e3/ul Critically high 0.00-0.03 [facility] Comment on above: Performed By: #### U AMIC #### [facility] [address] [place] [address] Dr. Jordan Blackwell IG % 14.1 % Critically high 0.0-0.5 [facility] Comment on above: Performed By: #### U AMIC #### [facility] [address] [place] [address] Dr. Jordan Blackwell LYMPH # 1.6 103/ul Normal 1.2-3.8 [facility] Comment on above: Performed By: #### U AMIC #### [facility] [address] [place] [address] Dr. Jordan Blackwell Lymphocytes/100 WBC (Bld) 20.0 % Critically low 20.5-60.0 [facility] Comment on above: Performed By: #### U AMIC #### [facility] [address] [place] [address] Dr. Jordan Blackwell MANUAL DIFF REQ NO Normal [facility] Comment on above: Performed By: #### U AMIC #### [facility] [address] [place] [address] Dr. Jordan Blackwell MCH (RBC) [Entitic mass] 31.6 pg Normal 26.7-34.0 [facility] Comment on above: Performed By: #### U AMIC #### [facility] [address] [place] [address] Dr. Jordan Blackwell MCHC (RBC) [Mass/Vol] 32.9 g/dL Normal 29.9-35.2 [facility] Comment on above: Performed By: #### U AMIC #### [facility] [address] [place] [address] Dr. Jordan Blackwell MCV (RBC) [Entitic vol] 96.1 fL Normal 81.0-99.0 [facility] Comment on above: Performed By: #### U AMIC #### [facility] [address] [place] [address] Dr. Jordan Blackwell MONO # 0.9 103/ul Critically high 0.3-0.8 [facility] Comment on above: Performed By: #### U AMIC #### [facility] [address] [place] [address] Dr. Jordan Blackwell Monocytes/100 WBC (Bld) 11.3 % Normal 1.7-12.0 [facility] Comment on above: Performed By: #### U AMIC #### [facility] [address] [place] [address] Dr. Jordan Blackwell NEUT # 4.3 103/ul Normal 1.4-6.5 [facility] Comment on above: Performed By: #### U AMIC #### [facility] [address] [place] [address] Dr. Jordan Blackwell Neutrophils/100 WBC (Bld) 53.2 % Normal 43.0-75.0 [facility] Comment on above: Performed By: #### U AMIC #### [facility] [address] [place] [address] Dr. Jordan Blackwell Platelet mean volume (Bld) [Entitic vol] 9.3 fL Critically low 9.5-13.5 [facility] Comment on above: Performed By: #### U AMIC #### [facility] [address] [place] [address] Dr. Jordan Blackwell PLT 265 103/ul Normal 150-450 [facility] Comment on above: Performed By: #### U AMIC #### [facility] [address] [place] [address] Dr. Jordan Blackwell RBC 3.04 106/ul Critically low 4.20-5.40 [facility] Comment on above: Performed By: #### U AMIC #### [facility] [address] [place] [address] Dr. Jordan Blackwell WBC 8.0 103/ul Normal 4.0-11.0 [facility] Comment on above: Performed By: #### U AMIC #### [facility] [address] [place] [address] Dr. Jordan Blackwell POINT OF CARE GLUCOSEon 02-07 Glucose [Mass/Vol] 128 mg/dL Critically high 74-106 [facility] Comment on above: Performed By: #### U RCX #### [facility] [address] [place] [address] Dr. Jordan Blackwell PROF CHEM 8 (BAS METB)on Anion gap [Moles/Vol] 12.0 mmol/L Normal [facility] Comment on above: Performed By: #### P RBC #### [facility] [address] [place] [address] Dr. Jordan Blackwell Calcium [Mass/Vol] 7.4 mg/dL Critically low 8.5-10.1 [facility] Comment on above: Performed By: #### P RBC #### [facility] [address] [place] [address] Dr. Jordan Blackwell Chloride [Moles/Vol] 102 mmol/L Normal 98-107 [facility] Comment on above: Performed By: #### P RBC #### [facility] [address] [place] [address] Dr. Jordan Blackwell CO2 [Moles/Vol] 24.1 mmol/L Normal 21.0-32.0 [facility] Comment on above: Performed By: #### P RBC #### [facility] [address] [place] [address] Dr. Jordan Blackwell Creatinine [Mass/Vol] 0.64 mg/dL Normal 0.55-1.02 [facility] Comment on above: Performed By: #### P RBC #### [facility] [address] [address] [address] Jordan Blackwell EGFR-AF SAMMARINESE >60 Normal >=60 [facility] Comment on above: Performed By: #### P RBC #### [facility] [address] [address] [address] Jordan Blackwell EGFR-NON AF SAMMARINESE >60 Normal >=60 [facility] Comment on above: Performed By: #### P RBC #### [facility] [address] [address] [address] Jordan Blackwell Glucose [Mass/Vol] 126 mg/dL Critically high 74-106 [facility] Comment on above: Performed By: #### P RBC #### [facility] [address] [place] [address] Dr. Jordan Blackwell Potassium [Moles/Vol] 4.1 mmol/L Normal 3.5-5.1 [facility] Comment on above: Performed By: #### P RBC #### [facility] [address] [place] [address] Dr. Jordan Blackwell Sodium [Moles/Vol] 134 mmol/L Critically low 136-145 [facility] Comment on above: Performed By: #### P RBC #### [facility] [address] [place] [address] Dr. Jordan Blackwell Urea nitrogen [Mass/Vol] 8.0 mg/dL Normal 7.0-18.0 [facility] Comment on above: Performed By: #### P RBC #### [facility] [address] [place] [address] Dr. Jordan Blackwell Urea nitrogen/Creatinine [Mass ratio] 12.5 mg/mg Normal [facility] Comment on above: Performed By: #### P RBC #### [facility] [address] [place] [address] Dr. Jordan Blackwell CBC W MANUAL DIFFon 02-25-20 22 ATYPICAL LYMPH # Normal [facility] Comment on above: Performed By: #### P RBC #### [facility] [address] [place] [address] Dr. Jordan Blackwell ATYPICAL LYMPH % Normal [facility] Comment on above: Performed By: #### P RBC #### [facility] [address] [place] [address] Dr. Jordan Blackwell BAND # 0.0 103/ul Normal 0.0-0.3 [facility] Comment on above: Performed By: #### P RBC #### [facility] [address] [place] [address] Dr. Jordan Blackwell BAND % 0 % Normal 0-5 [facility] Comment on above: Performed By: #### P RBC #### [facility] [address] [place] [address] Dr. Jordan Blackwell BASOM # 0.00 103/ul Normal 0.00-0.10 [facility] Comment on above: Performed By: #### P RBC #### [facility] [address] [place] [address] Dr. Jordan Blackwell BASOM % 0.0 % Critically low 0.2-2.0 [facility] Comment on above: Performed By: #### P RBC #### [facility] [address] [place] [address] Dr. Jordan Blackwell BLAST # Normal [facility] Comment on above: Performed By: #### P RBC #### [facility] [address] [place] [address] Dr. Jordan Blackwell BLAST % Normal [facility] Comment on above: Performed By: #### P RBC #### [facility] [address] [place] [address] Dr. Jordan Blackwell CORRECTED WBC Normal 4.0-11.0 [facility] Comment on above: Performed By: #### P RBC #### [facility] [address] [place] [address] Dr. Jordan Blackwell EOS # 0.00 103/ul Normal 0.00-0.70 [facility] Comment on above: Performed By: #### P RBC #### [facility] [address] [place] [address] Dr. Jordan Blackwell EOS% 0.0 % Critically low 0.9-7.0 [facility] Comment on above: Performed By: #### P RBC #### [facility] [address] [place] [address] Dr. Jordan Blackwell HCT 27.2 % Critically low 36.0-48.0 [facility] Comment on above: Performed By: #### P RBC #### [facility] [address] [place] [address] Dr. Jordan Blackwell HGB 9.3 g/dl Critically low 12.0-16.0 [facility] Comment on above: Performed By: #### P RBC #### [facility] [address] [place] [address] Dr. Jordan Blackwell LYMPHM # 2.41 103/ul Normal 1.20-3.80 [facility] Comment on above: Performed By: #### P RBC #### [facility] [address] [place] [address] Dr. Jordan Blackwell LYMPHM% 34.0 % Normal 20.5-60.0 [facility] Comment on above: Performed By: #### P RBC #### [facility] [address] [place] [address] Dr. Jordan Blackwell MCH 32.3 pg Normal 26.7-34.0 [facility] Comment on above: Performed By: #### P RBC #### [facility] [address] [place] [address] Dr. Jordan Blackwell MCHC 34.2 g/dl Normal 29.9-35.2 [facility] Comment on above: Performed By: #### P RBC #### [facility] [address] [place] [address] Dr. Jordan Blackwell MCV 94.4 fL Normal 81.0-99.0 [facility] Comment on above: Performed By: #### P RBC #### [facility] [address] [place] [address] Dr. Jordan Blackwell METAMYELOCYTE # Normal [facility] Comment on above: Performed By: #### P RBC #### [facility] [address] [place] [address] Dr. Jordan Blackwell METAMYELOCYTE % Normal [facility] Comment on above: Performed By: #### P RBC #### [facility] [address] [place] [address] Dr. Jordan Blackwell MONOM# 0.64 103/ul Normal 0.30-0.80 [facility] Comment on above: Performed By: #### P RBC #### [facility] [address] [place] [address] Dr. Jordan Blackwell MONOM% 9.0 % Normal 1.7-12.0 [facility] Comment on above: Performed By: #### P RBC #### [facility] [address] [place] [address] Dr. Jordan Blackwell MPV 9.4 fL Critically low 9.5-13.5 [facility] Comment on above: Performed By: #### P RBC #### [facility] [address] [place] [address] Dr. Jordan Blackwell MYELOCYTE # Normal [facility] Comment on above: Performed By: #### P RBC #### [facility] [address] [place] [address] Dr. Jordan Blackwell MYELOCYTE % Normal [facility] Comment on above: Performed By: #### P RBC #### [facility] [address] [place] [address] Dr. Jordan Blackwell NRBC Normal [facility] Comment on above: Performed By: #### P RBC #### [facility] [address] [place] [address] Dr. Jordan Blackwell PLT 244 103/ul Normal 150-450 [facility] Comment on above: Performed By: #### P RBC #### [facility] [address] [place] [address] Dr. Jordan Blackwell RBC 2.88 106/ul Critically low 4.20-5.40 [facility] Comment on above: Performed By: #### P RBC #### [facility] [address] [place] [address] Dr. Jordan Blackwell RDW 14.8 % Normal 11.0-15.0 [facility] Comment on above: Performed By: #### P RBC #### [facility] [address] [address] [address] Jordan Blackwell SEG # 4.05 103/ul Normal 1.40-6.50 [facility] Comment on above: Performed By: #### P RBC #### [facility] [address] [address] [address] Jordan Blackwell SEG % 57.0 % Normal 43.0-75.0 [facility] Comment on above: Performed By: #### P RBC #### [facility] [address] [address] [address] Jordan Blackwell WBC 7.1 103/ul Normal 4.0-11.0 [facility] Comment on above: Performed By: #### P RBC #### [facility] [address] [place] [address] Dr. Jordan Blackwell POINT OF CARE GLUCOSEon 02-06 Glucose [Mass/Vol] 106 mg/dL Normal 74-106 [facility] Comment on above: Performed By: #### P RBC #### [facility] [address] [address] [address] Jordan Blackwell Glucose [Mass/Vol] 112 mg/dL Critically high 74-106 [facility] Comment on above: Performed By: #### U RCX #### [facility] [address] [address] [address] Jordan Blackwell Glucose [Mass/Vol] 131 mg/dL Critically high 74-106 [facility] Comment on above: Performed By: #### C BC #### [facility] [address] [address] [address] Jordan Blackwell PROF CHEM 8 (BAS METB)on Anion gap [Moles/Vol] 9.7 mmol/L Normal [facility] Comment on above: Performed By: #### P RBC #### [facility] [address] [place] [address] Dr. Jordan Blackwell Calcium [Mass/Vol] 7.2 mg/dL Critically low 8.5-10.1 [facility] Comment on above: Performed By: #### P RBC #### [facility] [address] [place] [address] Dr. Jordan Blackwell Chloride [Moles/Vol] 102 mmol/L Normal 98-107 [facility] Comment on above: Performed By: #### P RBC #### [facility] [address] [place] [address] Dr. Jordan Blackwell CO2 [Moles/Vol] 24.1 mmol/L Normal 21.0-32.0 [facility] Comment on above: Performed By: #### P RBC #### [facility] [address] [place] [address] Dr. Jordan Blackwell Creatinine [Mass/Vol] 0.64 mg/dL Normal 0.55-1.02 [facility] Comment on above: Performed By: #### P RBC #### [facility] [address] [place] [address] Dr. Jordan Blackwell EGFR-AF SAMMARINESE >60 Normal >=60 [facility] Comment on above: Performed By: #### P RBC #### [facility] [address] [place] [address] Dr. Jordan Blackwell EGFR-NON AF SAMMARINESE >60 Normal >=60 [facility] Comment on above: Performed By: #### P RBC #### [facility] [address] [place] [address] Dr. Jordan Blackwell Glucose [Mass/Vol] 96 mg/dL Normal 74-106 [facility] Comment on above: Performed By: #### P RBC #### [facility] [address] [place] [address] Dr. Jordan Blackwell Potassium [Moles/Vol] 3.8 mmol/L Normal 3.5-5.1 [facility] Comment on above: Performed By: #### P RBC #### [facility] [address] [place] [address] Dr. Jordan Blackwell Sodium [Moles/Vol] 132 mmol/L Critically low 136-145 [facility] Comment on above: Performed By: #### P RBC #### [facility] [address] [address] [address] Jordan Blackwell Urea nitrogen [Mass/Vol] 8.0 mg/dL Normal 7.0-18.0 [facility] Comment on above: Performed By: #### P RBC #### [facility] [address] [address] [address] Jordan Blackwell Urea nitrogen/Creatinine [Mass ratio] 12.5 mg/mg Normal [facility] Comment on above: Performed By: #### P RBC #### [facility] [address] [address] [address] Jordan Blackwell Anion gap [Moles/Vol] 8.7 mmol/L Normal [facility] Comment on above: Performed By: #### B MP #### [facility] [address] [address] [address] Jordan Blackwell Calcium [Mass/Vol] 7.5 mg/dL Critically low 8.5-10.1 [facility] Comment on above: Performed By: #### B MP #### [facility] [address] [address] [address] Jordan Blackwell Chloride [Moles/Vol] 99 mmol/L Normal 98-107 [facility] Comment on above: Performed By: #### B MP #### [facility] [address] [address] [address] Jordan Blackwell CO2 [Moles/Vol] 25.4 mmol/L Normal 21.0-32.0 [facility] Comment on above: Performed By: #### B MP #### [facility] [address] [address] [address] Jordan Blackwell Creatinine [Mass/Vol] 0.64 mg/dL Normal 0.55-1.02 [facility] Comment on above: Performed By: #### B MP #### [facility] [address] [address] [address] Jordan Blackwell EGFR-AF SAMMARINESE >60 Normal >=60 [facility] Comment on above: Performed By: #### B MP #### [facility] [address] [address] [address] Jordan Blackwell EGFR-NON AF SAMMARINESE >60 Normal >=60 [facility] Comment on above: Performed By: #### B MP #### [facility] [address] [address] [address] Jordan Blackwell Glucose [Mass/Vol] 110 mg/dL Critically high 74-106 [facility] Comment on above: Performed By: #### B MP #### [facility] [address] [address] [address] Jordan Blackwell Potassium [Moles/Vol] 3.1 mmol/L Critically low 3.5-5.1 [facility] Comment on above: Performed By: #### B MP #### [facility] [address] [address] [address] Jordan Blackwell Sodium [Moles/Vol] 130 mmol/L Critically low 136-145 [facility] Comment on above: Performed By: #### B MP #### [facility] [address] [address] [address] Jordan Blackwell Urea nitrogen [Mass/Vol] 8.0 mg/dL Normal 7.0-18.0 [facility] Comment on above: Performed By: #### B MP #### [facility] [address] [address] [address] Jordan Blackwell Urea nitrogen/Creatinine [Mass ratio] 12.5 mg/mg Normal [facility] Comment on above: Performed By: #### B MP #### [facility] [address] [address] [address] Jordan Blackwell ABO RH RETYPEon 02-23-2022 ABO and Rh group Nom (Bld) DONE Normal [facility] Comment on above: Performed By: #### U RCX #### [facility] [address] [address] [address] Jordan Blackwell CBC W MANUAL DIFFon 02-24-20 22 BAND # 0.0 103/ul Normal 0.0-0.3 [facility] Comment on above: Performed By: #### P RBC #### [facility] [address] [place] [address] Dr. Jordan Blackwell BAND % 0 % Normal 0-5 [facility] Comment on above: Performed By: #### P RBC #### [facility] [address] [place] [address] Dr. Jordan Blackwell BASOM # 0.08 103/ul Normal 0.00-0.10 [facility] Comment on above: Performed By: #### P RBC #### [facility] [address] [place] [address] Dr. Jordan Blackwell EOS # 0.00 103/ul Normal 0.00-0.70 [facility] Comment on above: Performed By: #### P RBC #### [facility] [address] [place] [address] Dr. Jordan Blackwell EOS% 0.0 % Critically low 0.9-7.0 [facility] Comment on above: Performed By: #### P RBC #### [facility] [address] [place] [address] Dr. Jordan Blackwell HCT 27.3 % Critically low 36.0-48.0 [facility] Comment on above: Performed By: #### P RBC #### [facility] [address] [place] [address] Dr. Jordan Blackwell HGB 9.3 g/dl Critically low 12.0-16.0 [facility] Comment on above: Performed By: #### P RBC #### [facility] [address] [place] [address] Dr. Jordan Blackwell LYMPHM # 1.15 103/ul Critically low 1.20-3.80 [facility] Comment on above: Performed By: #### P RBC #### [facility] [address] [place] [address] Dr. Jordan Blackwell LYMPHM% 14.0 % Critically low 20.5-60.0 [facility] Comment on above: Performed By: #### P RBC #### [facility] [address] [place] [address] Dr. Jordan Blackwell MCH 32.1 pg Normal 26.7-34.0 [facility] Comment on above: Performed By: #### P RBC #### [facility] [address] [place] [address] Dr. Jordan Blackwell MCHC 34.1 g/dl Normal 29.9-35.2 [facility] Comment on above: Performed By: #### P RBC #### [facility] [address] [place] [address] Dr. Jordan Blackwell MCV 94.1 fL Normal 81.0-99.0 [facility] Comment on above: Performed By: #### P RBC #### [facility] [address] [place] [address] Dr. Jordan Blackwell MONOM# 1.72 103/ul Critically high 0.30-0.80 [facility] Comment on above: Performed By: #### P RBC #### [facility] [address] [place] [address] Dr. Jordan Blackwell MONOM% 21.0 % Critically high 1.7-12.0 [facility] Comment on above: Performed By: #### P RBC #### [facility] [address] [place] [address] Dr. Jordan Blackwell MPV 9.1 fL Critically low 9.5-13.5 [facility] Comment on above: Performed By: #### P RBC #### [facility] [address] [place] [address] Dr. Jordan Blackwell PLT 223 103/ul Normal 150-450 [facility] Comment on above: Performed By: #### P RBC #### [facility] [address] [place] [address] Dr. Jordan Blackwell RBC 2.90 106/ul Critically low 4.20-5.40 [facility] Comment on above: Performed By: #### P RBC #### [facility] [address] [place] [address] Dr. Jordan Blackwell RDW 14.6 % Normal 11.0-15.0 [facility] Comment on above: Performed By: #### P RBC #### [facility] [address] [place] [address] Dr. Jordan Blackwell SEG # 5.25 103/ul Normal 1.40-6.50 [facility] Comment on above: Performed By: #### P RBC #### [facility] [address] [place] [address] Dr. Jordan Blackwell SEG % 64.0 % Normal 43.0-75.0 [facility] Comment on above: Performed By: #### P RBC #### [facility] [address] [place] [address] Dr. Jordan Blackwell WBC 8.2 103/ul Normal 4.0-11.0 [facility] Comment on above: Performed By: #### P RBC #### [facility] [address] [place] [address] Dr. Jordan Blackwell ATYPICAL LYMPH # Normal [facility] Comment on above: Performed By: #### P RBC #### [facility] [address] [place] [address] Dr. Jordan Blackwell ATYPICAL LYMPH % Normal [facility] Comment on above: Performed By: #### P RBC #### [facility] [address] [place] [address] Dr. Jordan Blackwell BAND # 0.1 103/ul Normal 0.0-0.3 [facility] Comment on above: Performed By: #### P RBC #### [facility] [address] [place] [address] Dr. Jordan Blackwell BAND % 2 % Normal 0-5 [facility] Comment on above: Performed By: #### P RBC #### [facility] [address] [place] [address] Dr. Jordan Blackwell BASOM # 0.07 103/ul Normal 0.00-0.10 [facility] Comment on above: Performed By: #### P RBC #### [facility] [address] [place] [address] Dr. Jordan Blackwell BASOM % 1.0 % Normal 0.2-2.0 [facility] Comment on above: Performed By: #### P RBC #### [facility] [address] [place] [address] Dr. Jordan Blackwell BLAST # Normal [facility] Comment on above: Performed By: #### P RBC #### [facility] [address] [address] [address] Jordan Blackwell BLAST % Normal [facility] Comment on above: Performed By: #### P RBC #### [facility] [address] [address] [address] Jordan Blackwell CORRECTED WBC Normal 4.0-11.0 [facility] Comment on above: Performed By: #### P RBC #### [facility] [address] [place] [address] Dr. Jordan Blackwell EOS # 0.28 103/ul Normal 0.00-0.70 [facility] Comment on above: Performed By: #### P RBC #### [facility] [address] [place] [address] Dr. Jordan Blackwell EOS% 4.0 % Normal 0.9-7.0 [facility] Comment on above: Performed By: #### P RBC #### [facility] [address] [place] [address] Dr. Jordan Blackwell HCT 22.2 % Critically low 36.0-48.0 [facility] Comment on above: Performed By: #### P RBC #### [facility] [address] [place] [address] Dr. Jordan Blackwell HGB 7.4 g/dl Critically low 12.0-16.0 [facility] Comment on above: Performed By: #### P RBC #### [facility] [address] [place] [address] Dr. Jordan Blackwell HYPOCHROMASIA 2+ Normal [facility] Comment on above: Performed By: #### P RBC #### [facility] [address] [place] [address] Dr. Jordan Blackwell LYMPHM # 2.35 103/ul Normal 1.20-3.80 [facility] Comment on above: Performed By: #### P RBC #### [facility] [address] [place] [address] Dr. Jordan Blackwell LYMPHM% 34.0 % Normal 20.5-60.0 [facility] Comment on above: Performed By: #### P RBC #### [facility] [address] [place] [address] Dr. Jordan Blackwell MCH 32.5 pg Normal 26.7-34.0 [facility] Comment on above: Performed By: #### P RBC #### [facility] [address] [place] [address] Dr. Jordan Blackwell MCHC 33.3 g/dl Normal 29.9-35.2 [facility] Comment on above: Performed By: #### P RBC #### [facility] [address] [place] [address] Dr. Jordan Blackwell MCV 97.4 fL Normal 81.0-99.0 [facility] Comment on above: Performed By: #### P RBC #### [facility] [address] [place] [address] Dr. Jordan Blackwell METAMYELOCYTE # Normal [facility] Comment on above: Performed By: #### P RBC #### [facility] [address] [place] [address] Dr. Jordan Blackwell METAMYELOCYTE % Normal [facility] Comment on above: Performed By: #### P RBC #### [facility] [address] [place] [address] Dr. Jordan Blackwell MONOM# 0.62 103/ul Normal 0.30-0.80 [facility] Comment on above: Performed By: #### P RBC #### [facility] [address] [place] [address] Dr. Jordan Blackwell MONOM% 9.0 % Normal 1.7-12.0 [facility] Comment on above: Performed By: #### P RBC #### [facility] [address] [place] [address] Dr. Jordan Blackwell MPV 9.7 fL Normal 9.5-13.5 [facility] Comment on above: Performed By: #### P RBC #### [facility] [address] [place] [address] Dr. Jordan Blackwell MYELOCYTE # Normal [facility] Comment on above: Performed By: #### P RBC #### [facility] [address] [place] [address] Dr. Jordan Blackwell MYELOCYTE % Normal [facility] Comment on above: Performed By: #### P RBC #### [facility] [address] [address] [address] Jordan Blackwell NRBC Normal [facility] Comment on above: Performed By: #### P RBC #### [facility] [address] [address] [address] Jordan Blackwell PLT 224 103/ul Normal 150-450 [facility] Comment on above: Performed By: #### P RBC #### [facility] [address] [place] [address] Dr. Jordan Blackwell POLYCHROMASIA SLIGHT Normal [facility] Comment on above: Performed By: #### P RBC #### [facility] [address] [place] [address] Dr. Jordan Blackwell RBC 2.28 106/ul Critically low 4.20-5.40 [facility] Comment on above: Performed By: #### P RBC #### [facility] [address] [place] [address] Dr. Jordan Blackwell RDW 12.7 % Normal 11.0-15.0 [facility] Comment on above: Performed By: #### P RBC #### [facility] [address] [place] [address] Dr. Jordan Blackwell SEG # 3.45 103/ul Normal 1.40-6.50 [facility] Comment on above: Performed By: #### P RBC #### [facility] [address] [place] [address] Dr. Jordan Blackwell SEG % 50.0 % Normal 43.0-75.0 [facility] Comment on above: Performed By: #### P RBC #### [facility] [address] [place] [address] Dr. Jordan Blackwell WBC 6.9 103/ul Normal 4.0-11.0 [facility] Comment on above: Performed By: #### P RBC #### [facility] [address] [address] [address] Jordan Blackwell OSMOLALITYon 02-23-2022 Osmolality [Osmolality] 260 mosm/kg Critically low 280-301 [facility] Comment on above: Performed By: #### O SMO #### [facility] [address] [address] [address] Jordan Blackwell POINT OF CARE GLUCOSEon 02-06 Glucose [Mass/Vol] 71 mg/dL Critically low 74-106 [facility] Comment on above: Performed By: #### O SMO #### [facility] [address] [address] [address] Jordan Blackwell Glucose [Mass/Vol] 157 mg/dL Critically high 74-106 [facility] Comment on above: Performed By: #### U RCX #### [facility] [address] [place] [address] Dr. Jordan Blackwell Glucose [Mass/Vol] 196 mg/dL Critically high 74-106 [facility] Comment on above: Performed By: #### C BC #### [facility] [address] [address] [address] Jordan Blackwell PROF CHEM 8 (BAS METB)on Anion gap [Moles/Vol] 8.7 mmol/L Normal [facility] Comment on above: Performed By: #### P RBC #### [facility] [address] [place] [address] Dr. Jordan Blackwell Calcium [Mass/Vol] 7.6 mg/dL Critically low 8.5-10.1 [facility] Comment on above: Performed By: #### P RBC #### [facility] [address] [place] [address] Dr. Jordan Blackwell Chloride [Moles/Vol] 98 mmol/L Normal 98-107 [facility] Comment on above: Performed By: #### P RBC #### [facility] [address] [place] [address] Dr. Jordan Blackwell CO2 [Moles/Vol] 26.5 mmol/L Normal 21.0-32.0 [facility] Comment on above: Performed By: #### P RBC #### [facility] [address] [address] [address] Jordan Blackwell Creatinine [Mass/Vol] 0.65 mg/dL Normal 0.55-1.02 [facility] Comment on above: Performed By: #### P RBC #### [facility] [address] [address] [address] Jordan Blackwell EGFR-AF SAMMARINESE >60 Normal >=60 [facility] Comment on above: Performed By: #### P RBC #### [facility] [address] [address] [address] Jordan Blackwell EGFR-NON AF SAMMARINESE >60 Normal >=60 [facility] Comment on above: Performed By: #### P RBC #### [facility] [address] [place] [address] Dr. Jordan Blackwell Glucose [Mass/Vol] 130 mg/dL Critically high 74-106 [facility] Comment on above: Performed By: #### P RBC #### [facility] [address] [place] [address] Dr. Jordan Blackwell Potassium [Moles/Vol] 3.2 mmol/L Critically low 3.5-5.1 [facility] Comment on above: Performed By: #### P RBC #### [facility] [address] [place] [address] Dr. Jordan Blackwell Sodium [Moles/Vol] 130 mmol/L Critically low 136-145 [facility] Comment on above: Performed By: #### P RBC #### [facility] [address] [place] [address] Dr. Jordan Blackwell Urea nitrogen [Mass/Vol] 9.0 mg/dL Normal 7.0-18.0 [facility] Comment on above: Performed By: #### P RBC #### [facility] [address] [place] [address] Dr. Jordan Blackwell Urea nitrogen/Creatinine [Mass ratio] 13.8 mg/mg Normal [facility] Comment on above: Performed By: #### P RBC #### [facility] [address] [place] [address] Dr. Jordan Blackwell T3, TOTAL (TRIIODOTHYRONINE) on 02-23-2022 T3, TOTAL 80 ng/dL Normal 71-180 [facility] Comment on above: Performed By: #### C BC #### [facility] [address] [place] [address] Dr. Jordan Blackwell TYPE AND SCREENon 02-23-2022 TYPE AND SCREEN Negative Normal [facility] Comment on above: Performed By: #### C BC #### [facility] [address] [place] [address] Dr. Jordan Blackwell BNPon 02-22-2022 Natriuretic peptide B (Bld) [Mass/Vol] 109.0 pg/mL Normal <=900.0 [facility] Comment on above: Performed By: #### U RCX #### [facility] [address] [place] [address] Dr. Jordan Blackwell CBC W MANUAL DIFFon 02-23-20 ATYPICAL LYMPH # Normal [facility] Comment on above: Performed By: #### P RBC #### [facility] [address] [place] [address] Dr. Jordan Blackwell ATYPICAL LYMPH % Normal [facility] Comment on above: Performed By: #### P RBC #### [facility] [address] [place] [address] Dr. Jordan Blackwell BAND # Normal 0.0-0.3 [facility] Comment on above: Performed By: #### P RBC #### [facility] [address] [place] [address] Dr. Jordan Blackwell BAND % Normal 0-5 [facility] Comment on above: Performed By: #### P RBC #### [facility] [address] [place] [address] Dr. Jordan Blackwell BASOM # 0.00 103/ul Normal 0.00-0.10 [facility] Comment on above: Performed By: #### P RBC #### [facility] [address] [place] [address] Dr. Jordan Blackwell BASOM % 0.0 % Critically low 0.2-2.0 [facility] Comment on above: Performed By: #### P RBC #### [facility] [address] [address] [address] Jordan Blackwell BLAST # Normal [facility] Comment on above: Performed By: #### P RBC #### [facility] [address] [place] [address] Dr. Jordan Blackwell BLAST % Normal [facility] Comment on above: Performed By: #### P RBC #### [facility] [address] [place] [address] Dr. Jordan Blackwell CORRECTED WBC Normal 4.0-11.0 [facility] Comment on above: Performed By: #### P RBC #### [facility] [address] [place] [address] Dr. Jordan Blackwell EOS # 0.00 103/ul Normal 0.00-0.70 [facility] Comment on above: Performed By: #### P RBC #### [facility] [address] [place] [address] Dr. Jordan Blackwell EOS% 0.0 % Critically low 0.9-7.0 [facility] Comment on above: Performed By: #### P RBC #### [facility] [address] [place] [address] Dr. Jordan Blackwell HCT 24.4 % Critically low 36.0-48.0 [facility] Comment on above: Performed By: #### P RBC #### [facility] [address] [place] [address] Dr. Jordan Blackwell HGB 8.2 g/dl Critically low 12.0-16.0 [facility] Comment on above: Performed By: #### P RBC #### [facility] [address] [place] [address] Dr. Jordan Blackwell LYMPHM # 0.91 103/ul Critically low 1.20-3.80 [facility] Comment on above: Performed By: #### P RBC #### [facility] [address] [place] [address] Dr. Jordan Blackwell LYMPHM% 10.0 % Critically low 20.5-60.0 [facility] Comment on above: Performed By: #### P RBC #### [facility] [address] [place] [address] Dr. Jordan Blackwell MCH 32.3 pg Normal 26.7-34.0 [facility] Comment on above: Performed By: #### P RBC #### [facility] [address] [place] [address] Dr. Jordan Blackwell MCHC 33.6 g/dl Normal 29.9-35.2 [facility] Comment on above: Performed By: #### P RBC #### [facility] [address] [place] [address] Dr. Jordan Blackwell MCV 96.1 fL Normal 81.0-99.0 [facility] Comment on above: Performed By: #### P RBC #### [facility] [address] [place] [address] Dr. Jordan Blackwell METAMYELOCYTE # Normal [facility] Comment on above: Performed By: #### P RBC #### [facility] [address] [place] [address] Dr. Jordan Blackwell METAMYELOCYTE % Normal [facility] Comment on above: Performed By: #### P RBC #### [facility] [address] [place] [address] Dr. Jordan Blackwell MONOM# 1.00 103/ul Critically high 0.30-0.80 [facility] Comment on above: Performed By: #### P RBC #### [facility] [address] [place] [address] Dr. Jordan Blackwell MONOM% 11.0 % Normal 1.7-12.0 [facility] Comment on above: Performed By: #### P RBC #### [facility] [address] [place] [address] Dr. Jordan Blackwell MPV 9.7 fL Normal 9.5-13.5 [facility] Comment on above: Performed By: #### P RBC #### [facility] [address] [place] [address] Dr. Jordan Blackwell MYELOCYTE # Normal [facility] Comment on above: Performed By: #### P RBC #### [facility] [address] [address] [address] Jordan Blackwell MYELOCYTE % Normal [facility] Comment on above: Performed By: #### P RBC #### [facility] [address] [place] [address] Dr. Jordan Blackwell NRBC Normal [facility] Comment on above: Performed By: #### P RBC #### [facility] [address] [place] [address] Dr. Jordan Blackwell PLT 251 103/ul Normal 150-450 [facility] Comment on above: Performed By: #### P RBC #### [facility] [address] [place] [address] Dr. Jordan Blackwell RBC 2.54 106/ul Critically low 4.20-5.40 [facility] Comment on above: Performed By: #### P RBC #### [facility] [address] [place] [address] Dr. Jordan Blackwell RDW 12.6 % Normal 11.0-15.0 [facility] Comment on above: Performed By: #### P RBC #### [facility] [address] [place] [address] Dr. Jordan Blackwell SEG # 7.19 103/ul Critically high 1.40-6.50 [facility] Comment on above: Performed By: #### P RBC #### [facility] [address] [place] [address] Dr. Jordan Blackwell SEG % 79.0 % Critically high 43.0-75.0 [facility] Comment on above: Performed By: #### P RBC #### [facility] [address] [place] [address] Dr. Jordan Blackwell WBC 9.1 103/ul Normal 4.0-11.0 [facility] Comment on above: Performed By: #### P RBC #### [facility] [address] [place] [address] Dr. Jordan Blackwell CULTURE URINEon 02-22-2022 CULTURE URINE Culture Observations : LIGHT GROWTH OF MIXED GENITAL RUBÉN. NO POTENTIAL PATHOGENS SEEN. Normal [facility] Comment on above: Performed By: #### U RCX #### [facility] [address] [place] [address] Dr. Jordan Blackwell Covid-19 PCR ([facility])on 02-06 SARS-CoV-2 (COVID-19) RNA TESFAYE+probe Ql (Unsp spec) Not detected Normal NOT DETECTED [facility] Comment on above: Result Comment: When [...] for this test is supported by the [place] of [employer] and Human Service's declaration that [...] used). Performed By: #### U RCX #### [facility] [address] [place] [address] Dr. Jordan Blackwell POINT OF CARE GLUCOSEon 02-06 Glucose [Mass/Vol] 130 mg/dL Critically high 74-106 [facility] Comment on above: Performed By: #### B MP #### [facility] [address] [place] [address] Dr. Jordan Blackwell Glucose [Mass/Vol] 138 mg/dL Critically high 74-106 [facility] Comment on above: Performed By: #### U AMIC #### [facility] [address] [place] [address] Dr. Jordan Blackwell Glucose [Mass/Vol] 185 mg/dL Critically high 74-106 [facility] Comment on above: Performed By: #### B MP #### [facility] [address] [place] [address] Dr. Jordan Blackwell PROF 14(COMP METB)on 02-22- 022 Albumin [Mass/Vol] 2.6 g/dL Critically low 3.4-5.0 [facility] Comment on above: Performed By: #### O SMO #### [facility] [address] [place] [address] Dr. Jordan Blackwell Albumin/Globulin [Mass ratio] 0.8 {ratio} Normal [facility] Comment on above: Performed By: #### O SMO #### [facility] [address] [place] [address] Dr. Jordan Blackwell ALP [Catalytic activity/Vol] 76 U/L Normal 46-116 [facility] Comment on above: Performed By: #### O SMO #### [facility] [address] [place] [address] Dr. Jordan Blackwell ALT [Catalytic activity/Vol] 22 U/L Normal 14-59 [facility] Comment on above: Performed By: #### O SMO #### [facility] [address] [place] [address] Dr. Jordan Blackwell Anion gap [Moles/Vol] 11.3 mmol/L Normal [facility] Comment on above: Performed By: #### O SMO #### [facility] [address] [place] [address] Dr. Jordan Blackwell AST [Catalytic activity/Vol] 28 U/L Normal 15-37 [facility] Comment on above: Performed By: #### O SMO #### [facility] [address] [place] [address] Dr. Jordan Blackwell Bilirubin [Mass/Vol] 0.6 mg/dL Normal 0.2-1.0 [facility] Comment on above: Performed By: #### O SMO #### [facility] [address] [place] [address] Dr. Jordan Blackwell Calcium [Mass/Vol] 8.3 mg/dL Critically low 8.5-10.1 [facility] Comment on above: Performed By: #### O SMO #### [facility] [address] [place] [address] Dr. Jordan Blackwell Chloride [Moles/Vol] 91 mmol/L Critically low 98-107 [facility] Comment on above: Performed By: #### O SMO #### [facility] [address] [place] [address] Dr. Jordan Blackwell CO2 [Moles/Vol] 27.9 mmol/L Normal 21.0-32.0 [facility] Comment on above: Performed By: #### O SMO #### [facility] [address] [address] [address] Jordan Blackwell Creatinine [Mass/Vol] 0.79 mg/dL Normal 0.55-1.02 [facility] Comment on above: Performed By: #### O SMO #### [facility] [address] [place] [address] Dr. Jordan Blackwell EGFR-AF SAMMARINESE >60 Normal >=60 [facility] Comment on above: Performed By: #### O SMO #### [facility] [address] [place] [address] Dr. Jordan Blackwell EGFR-NON AF SAMMARINESE >60 Normal >=60 [facility] Comment on above: Performed By: #### O SMO #### [facility] [address] [place] [address] Dr. Jordan Blackwell Globulin (S) [Mass/Vol] 3.4 g/dL Normal [facility] Comment on above: Performed By: #### O SMO #### [facility] [address] [place] [address] Dr. Jordan Blackwell Glucose [Mass/Vol] 170 mg/dL Critically high 74-106 [facility] Comment on above: Performed By: #### O SMO #### [facility] [address] [place] [address] Dr. Jordan Blackwell Potassium [Moles/Vol] 3.2 mmol/L Critically low 3.5-5.1 [facility] Comment on above: Performed By: #### O SMO #### [facility] [address] [place] [address] Dr. Jordan Blackwell Protein [Mass/Vol] 6.0 g/dL Critically low 6.4-8.2 [facility] Comment on above: Performed By: #### O SMO #### [facility] [address] [address] [address] Jordan Blackwell Sodium [Moles/Vol] 127 mmol/L Critically low 136-145 [facility] Comment on above: Performed By: #### O SMO #### [facility] [address] [address] [address] Jordan Blackwell Urea nitrogen [Mass/Vol] 15.0 mg/dL Normal 7.0-18.0 [facility] Comment on above: Performed By: #### O SMO #### [facility] [address] [address] [address] Jordan Blackwell Urea nitrogen/Creatinine [Mass ratio] 19.0 mg/mg Normal [facility] Comment on above: Performed By: #### O SMO #### [facility] [address] [place] [address] Dr. Jordan Blackwell SODIUM RANDOM URINEon 2021 UR SODIUM <5 Critically low 30-90 [facility] Comment on above: Performed By: #### C BC #### [facility] [address] [place] [address] Dr. Jordan Blackwell T4on 02-22-2022 T4 [Mass/Vol] 7.10 ug/dL Normal 4.80-13.90 [facility] Comment on above: Performed By: #### U RCX #### [facility] [address] [place] [address] Dr. Jordan Blackwell TSHon 02-22-2022 TSH 1.693 uIU/mL Normal 0.358-3.74 0 [facility] Comment on above: Performed By: #### U RCX #### [facility] [address] [place] [address] Dr. Jordan Blackwell UA RANDOM W/MICROSCOPICon BACTERIA NONE SEEN Normal NONE SEEN [facility] Comment on above: Performed By: #### U RCX #### [facility] [address] [place] [address] Dr. Jordan Blackwell Bilirubin Ql (U) Negative Normal NEGATIVE [facility] Comment on above: Performed By: #### U RCX #### [facility] [address] [address] [address] Jordan Blackwell CAST NONE SEEN Normal NONE SEEN [facility] Comment on above: Performed By: #### U RCX #### [facility] [address] [place] [address] Dr. Jordan Blackwell Clarity (U) CLEAR Normal CLEAR [facility] Comment on above: Performed By: #### U RCX #### [facility] [address] [place] [address] Dr. Jordan Blackwell Color (U) LT. YELLOW Normal YELLOW [facility] Comment on above: Performed By: #### U RCX #### [facility] [address] [place] [address] Dr. Jordan Blackwell Crystals LM Nom (Urine sed) NONE SEEN Normal NONE SEEN [facility] Comment on above: Performed By: #### U RCX #### [facility] [address] [place] [address] Dr. Jordan Blackwell Epithelial cells LM Ql (Urine sed) FEW Abnormal NONE SEEN /RARE [facility] Comment on above: Performed By: #### U RCX #### [facility] [address] [place] [address] Dr. Jordan Blackwell Glucose Ql (U) Negative Normal NEGATIVE [facility] Comment on above: Performed By: #### U RCX #### [facility] [address] [place] [address] Dr. Jordan Blackwell Hemoglobin Ql (U) Negative Normal NEGATIVE [facility] Comment on above: Performed By: #### U RCX #### [facility] [address] [place] [address] Dr. Jordan Blackwell Ketones Ql (U) TRACE Abnormal NEGATIVE [facility] Comment on above: Performed By: #### U RCX #### [facility] [address] [place] [address] Dr. Jordan Blackwell LEUKOCYTES TRACE Abnormal NEGATIVE [facility] Comment on above: Performed By: #### U RCX #### [facility] [address] [address] [address] Jordan Blackwell MUCOUS NONE SEEN Normal NONE SEEN [facility] Comment on above: Performed By: #### U RCX #### [facility] [address] [address] [address] Jordan Blackwell Nitrite Ql (U) Negative Normal NEGATIVE [facility] Comment on above: Performed By: #### U RCX #### [facility] [address] [place] [address] Dr. Jordan Blackwell pH (U) 6.5 [pH] Normal 5-9 [facility] Comment on above: Performed By: #### U RCX #### [facility] [address] [place] [address] Dr. Jordan Blackwell RBC 0-2 Normal 0-2 [facility] Comment on above: Performed By: #### U RCX #### [facility] [address] [place] [address] Dr. Jordan Blackwell SPEC GRAVITY <=1.005 Abnormal 1.005-<=1. 025 [facility] Comment on above: Performed By: #### U RCX #### [facility] [address] [address] [address] Jordan Blackwell UA PROTEIN Negative Normal NEGATIVE/ TRACE [facility] Comment on above: Performed By: #### U RCX #### [facility] [address] [place] [address] Dr. Jordan Blackwell Urobilinogen Qn (U) 0.2 {Claudia'U}/dL Normal 0.2 - 1. 0 [facility] Comment on above: Performed By: #### U RCX #### [facility] [address] [place] [address] Dr. Jordan Blackwell WBC 2-5 Abnormal NONE SEEN [facility] Comment on above: Performed By: #### U RCX #### [facility] [address] [place] [address] Dr. Jordan Blackwell Basic Metabolic Panelon 11 Anion gap [Moles/Vol] 14.5 mmol/L Normal 6.0-15.0 [facility] Comment on above: Performed By: #### C BC, BMP ####[facility] [place] [address] [facility] Calcium [Mass/Vol] 8.9 mg/dL Normal 8.2-10.2 [facility] Comment on above: Result Comment: PERF ORMED BY:[address] [place] [place], [place] [phone] MEDICAL DIRECTORKIMBERLYN SINGER M.D. Performed By: #### C BC, BMP ####[address] [place] [address] [facility] Chloride [Moles/Vol] 87 mmol/L Low 95-114 [facility] Comment on above: Performed By: #### C BC, BMP ####[address] [address] [facility] CO2 [Moles/Vol] 25.4 mmol/L Normal 22.0-30.0 [facility] Comment on above: Performed By: #### C BC, BMP ####[address] [address] [facility] Creatinine [Mass/Vol] 0.98 mg/dL Normal 0.44-1.03 [facility] Comment on above: Performed By: #### C BC, BMP ####[address] [address] [facility] Estimated GFR ( Brenda > 60 [facility] Comment on above: Result Comment: GFR estimated reference range: According to KDOQI guidelines, <60 ml/min/1.73m2 is sufficient to diagnose a patient with chronic kidney disease. Performed By: #### C BC, BMP ####[address] [place] [address] [facility] Estimated GFR (Non- Am 57 [facility] Comment on above: Performed By: #### C BC, BMP ####[facility] [place] [address] [facility] Glucose [Mass/Vol] 191 mg/dL High 70-100 [facility] Comment on above: Result Comment: [place] Glucose Reference Range is dependent on time and content of last meal. Glucose of more than 200 mg/dL in a nonstressed, ambulatory subject supports the diagnosis of Diabetes Mellitus. ADA recommended reference range Performed By: #### C BC, BMP ####[facility] [place] [address] [facility] Potassium [Moles/Vol] 3.9 mmol/L Normal 3.5-5.1 [facility] Comment on above: Performed By: #### C BC, BMP ####[address] [place] [id number] [facility] Sodium [Moles/Vol] 123 mmol/L Off scale low 136-146 [facility] Comment on above: Result Comment: Crit ical value result called at 1558 on 02/20/22 Performed By: #### C BC, BMP ####[address] [place] [address] [facility] Urea nitrogen [Mass/Vol] 18 mg/dL Normal 9-23 [facility] Comment on above: Performed By: #### C BC, BMP ####[id number] [facility] Basophils Auto (Bld) [#/Vol] Ordered By: Asa Napoles on 02-20-2022 Basophils (Bld) [#/Vol] 0.1 10*3/uL 0.0-0.2 [facility] Basophils/100 WBC Auto (Bld) Ordered By: Asa Napoles on 02-20-2022 Basophils/100 WBC (Bld) 0.5 % . [facility] COVID-19 Antigenon 2 COVID-19 Antigen Normal [facility] Comment on above: Performed By: #### C OVID-19 YASMINE, SOFIANEG ####[address] [place] [address] [facility] COVID-19 SOFIAOrdered By: Antoni Napoles on 02-20-2022 SARS-CoV+SARS-CoV-2 (COVID-19) Ag IA.rapid Ql (Resp) Negative Negative [facility] Comment on above: This is a duplicate Yasmine SARS Antigen (FREDERIC) result to be used for statistical tracking purpose only. Complete Blood Count Auto Di ffon 02-20-2022 Basophils (Bld) [#/Vol] 0.1 10*3/uL Normal 0.0-0.2 [facility] Comment on above: Result Comment: PERF ORMED BY:[address] [place], [place] [phone] MEDICAL DIRECTORKIMBERLYN SINGER M.D. Performed By: #### C BC, BMP ####[address] [address] [facility] Basophils/100 WBC (Bld) 0.5 % Normal . [facility] Comment on above: Performed By: #### C BC, BMP ####[address] [address] [facility] Eosinophils (Bld) [#/Vol] 0.1 10*3/uL Normal 0.0-0.45 [facility] Comment on above: Performed By: #### C BC, BMP ####[address] [address] [facility] Eosinophils/100 WBC (Bld) 0.7 % Normal . [facility] Comment on above: Performed By: #### C JORDEN, BMP ####[address] [address] [facility] Erythrocyte distribution width (RBC) [Ratio] 12.9 % Normal 11.9-15.3 [facility] Comment on above: Performed By: #### C BC, BMP ####[address] [address] [facility] Hematocrit (Bld) [Volume fraction] 29.5 % Low 34.0-46.4 [facility] Comment on above: Performed By: #### C BC, BMP ####[address] [address] [facility] Hemoglobin (Bld) [Mass/Vol] 9.8 g/dL Low 11.8-15.4 [facility] Comment on above: Performed By: #### C BC, BMP ####[address] [place] [address] [facility] Lymphocytes (Bld) [#/Vol] 1.6 10*3/uL Normal 1.00-4.8 [facility] Comment on above: Performed By: #### C BC, BMP ####[address] [address] [facility] Lymphocytes/100 WBC (Bld) 11.5 % Normal . [facility] Comment on above: Performed By: #### C JORDEN, BMP ####[address] [address] [facility] MCH (RBC) [Entitic mass] 32.7 pg Normal 24.7-34.3 [facility] Comment on above: Performed By: #### C JORDEN, BMP ####[address] [address] [facility] MCV (RBC) [Entitic vol] 98.2 fL Normal 80-100 [facility] Comment on above: Performed By: #### C JORDEN, BMP ####[id number] [facility] Mean Corpuscular HGB Conc 33.3 g/dL Normal 32.0-35.0 [facility] Comment on above: Performed By: #### C JORDEN, BMP ####[id number] [facility] Monocytes (Bld) [#/Vol] 1.4 10*3/uL High 0.0-0.8 [facility] Comment on above: Performed By: #### C BC, BMP ####[id number] [facility] Monocytes/100 WBC (Bld) 10.0 % Normal . [facility] Comment on above: Performed By: #### C BC, BMP ####[address] [address] [facility] Neutrophils (Bld) [#/Vol] 10.7 10*3/uL High 1.8-7.7 [facility] Comment on above: Performed By: #### C BC, BMP ####[id number] [facility] Neutrophils/100 WBC (Bld) 77.3 % Normal . [facility] Comment on above: Performed By: #### C JORDEN, BMP ####[id number] [facility] Nucleated RBC/100 WBC (Bld) [Ratio] 0.0 % Normal 0-0.5 [facility] Comment on above: Performed By: #### C JORDEN, BMP ####[address] [address] [facility] Platelet mean volume (Bld) [Entitic vol] 8.4 fL Normal 6.3-10.7 [facility] Comment on above: Performed By: #### C JORDEN, BMP ####[id number] [facility] Platelets (Bld) [#/Vol] 255 10*3/uL Normal 150-450 [facility] Comment on above: Performed By: #### C JORDEN, BMP ####[id number] [facility] RBC (Bld) [#/Vol] 3.00 10*6/uL Low 3.60-5.[address] [facility] Comment on above: Performed By: #### C JORDEN, BMP ####[address] [address] [facility] WBC (Bld) [#/Vol] 13.9 10*3/uL High 4.5-11.[address] [facility] Comment on above: Performed By: #### Diane LEONARDO, BMP ####[id number] [facility] Creatinine and Glomerular fi ltration rate.predicted panel (S/P/Bld)Ordered By: Asa Napoles on 02-20-2022 Creatinine [Mass/Vol] 0.98 mg/dL 0.44-1.03 [facility] Eosinophils Auto (Bld) [#/Vo l]Ordered By: Asa Napoles on 02-20-2022 Eosinophils (Bld) [#/Vol] 0.1 10*3/uL 0.0-0.45 [facility] Eosinophils/100 WBC Auto (Bl d)Ordered By: Asa Napoles on 02-20-2022 Eosinophils/100 WBC (Bld) 0.7 % . [facility] Erythrocyte distribution wid th Auto (RBC) [Ratio]Ordered By: Asa Napoles on 02-20-2022 Erythrocyte distribution width (RBC) [Ratio] 12.9 % 11.9-15.3 [facility] Estimated glomerular filtrat ion rate (GFR) non- AmericanOrdered By: Asa Napoles on 02-20-2022 GFR/1.73 sq M.predicted among non-blacks MDRD (S/P/Bld) [Vol rate/Area] 57 mL/Min [facility] Hematocrit Auto (Bld) [Volum e fraction]Ordered By: Asa Napoles on 02-20-2022 Hematocrit (Bld) [Volume fraction] 29.5 % 34.0-46.4 [facility] Hemoglobin [Mass/volume] in BloodOrdered By: Asa Napoles on 02-20-2022 Hemoglobin (Bld) [Mass/Vol] 9.8 g/dL 11.8-15.4 [facility] - Hematology and Cell countsOrdered By: Asa Napoles on 02-20-2022 Nucleated RBC/100 WBC (Bld) [Ratio] 0.0 % 0-0.5 [facility] Leukocytes [#/volume] in Blo od by Automated countOrdered By: Asa Napoles on 02-20-2022 WBC (Bld) [#/Vol] 13.9 10*3/uL 4.5-11.[address] [facility] Lymphocytes Auto (Bld) [#/Vo l]Ordered By: Asa Napoles on 02-20-2022 Lymphocytes (Bld) [#/Vol] 1.6 10*3/uL 1.00-4.8 [facility] Lymphocytes/100 WBC Auto (Bl d)Ordered By: Asa Napoles on 02-20-2022 Lymphocytes/100 WBC (Bld) 11.5 % . [facility] MCH Auto (RBC) [Entitic mass ]Ordered By: Asa Napoles on 02-20-2022 MCH (RBC) [Entitic mass] 32.7 pg 24.7-34.3 [facility] MCHC Auto (RBC) [Mass/Vol]Or dered By: Asa Napoles on 02-20-2022 MCHC (RBC) [Mass/Vol] 33.3 g/dL 32.0-35.0 [facility] MCV Auto (RBC) [Entitic vol] Ordered By: Asa Napoles on 02-20-2022 MCV (RBC) [Entitic vol] 98.2 fL 80-100 [facility] Monocytes Auto (Bld) [#/Vol] Ordered By: Asa Napoles on 02-20-2022 Monocytes (Bld) [#/Vol] 1.4 10*3/uL 0.0-0.8 [facility] Monocytes/100 WBC Auto (Bld) Ordered By: Asa Napoles on 02-20-2022 Monocytes/100 WBC (Bld) 10.0 % . [facility] Neutrophils Auto (Bld) [#/Vo l]Ordered By: Asa Napoles on 02-20-2022 Neutrophils (Bld) [#/Vol] 10.7 10*3/uL 1.8-7.7 [facility] Neutrophils/100 WBC Auto (Bl d)Ordered By: Asa Napoles on 02-20-2022 Neutrophils/100 WBC (Bld) 77.3 % . [facility] No Panel InformationOrdered By: Asa Napoles on 02-20-2022 Estimated GFR () > 60 mL/Min [facility] Comment on above: GFR estimated refere nce range: According to KDOQI guidelines, <60 ml/min/1.73m2 is sufficient to diagnose a patient with chronic kidney disease. Pharmacy Creatinine Clearance (Chem N/A [facility] SARS Antigen (LFIA) [facility] SARS Antigen (LFIA) [facility] Platelet mean volume Auto (B ld) [Entitic vol]Ordered By: Asa Napolse on 02-20-2022 Platelet mean volume (Bld) [Entitic vol] 8.4 fL 6.3-10.7 [facility] Platelets Auto (Bld) [#/Vol] Ordered By: Asa Napoles on 02-20-2022 Platelets (Bld) [#/Vol] 255 10*3/uL 150-450 [facility] RBC Auto (Bld) [#/Vol]Ordere d By: Asa Napoles on 02-20-2022 RBC (Bld) [#/Vol] 3.00 10*6/uL 3.60-5.[address] [facility] Serum or plasma anion gap de terminationOrdered By: Asa Napoles on 02-20-2022 Anion gap [Moles/Vol] 14.5 mmol/L 6.0-15.0 [facility] Serum or plasma calcium john urement (mass/volume)Ordered By: Asa Napoles on 02-20-2022 Calcium [Mass/Vol] 8.9 mg/dL 8.2-10.2 [facility] Serum or plasma chloride tressa surement (moles/volume)Ordered By: Asa Napoles on 02-20-2022 Chloride [Moles/Vol] 87 mmol/L 95-114 [facility] Serum or plasma glucose john urement (mass/volume)Ordered By: Asa Napoles on 02-20-2022 Glucose [Mass/Vol] 191 mg/dL 70-100 [facility] Comment on above: ADA recommended refe rence rangeRandom Glucose Reference Range is dependent on time and content of last meal. Glucose of more than 200 mg/dL in a nonstressed, ambulatory subject supports the diagnosis of Diabetes Mellitus. Serum or plasma potassium me asurement (moles/volume)Ordered By: Asa Napoles on 02-20-2022 Potassium [Moles/Vol] 3.9 mmol/L 3.5-5.1 [facility] Serum or plasma sodium measu rement (moles/volume)Ordered By: Asa Napoles on 02-20-2022 Sodium [Moles/Vol] 123 mmol/L 136-146 [facility] Comment on above: Critical valueresult calledat 1558 on 02/20/22 Serum or plasma total carbon dioxide measurement (moles/volume)Ordered By: Asa Napoles on 02-20-2022 CO2 [Moles/Vol] 25.4 mmol/L 22.0-30.0 [facility] Serum or plasma urea nitroge n measurement (mass/volume)Ordered By: Asa Napoles on 02-20-2022 Urea nitrogen [Mass/Vol] 18 mg/dL 12-29 [facility] Yasmine Ag Negativeon 02-21-20 22 Yasmine Ag Negative Negative Normal Negative [facility] Comment on above: Result Comment: This is a duplicate Yasmine SARS Antigen (FREDERIC) result to be used for statistical tracking purpose only.PERFORMED BY:[facility] [place], [place] [id number] MEDICAL DIRECTORKIMBERLYN SINGER M.D. Performed By: #### C OVID-19 YASMINE, SOFIANEG ####[facility] [place] [address] [facility] XR SHOULDER LT 2V or >on XR [...] by: KATIE SOTO Date: 2022-02-17 13:48 Normal [facility] CT CHEST W CONon 01-12-2022 CT [...] by: KAEL DUVAL Date: 2022-01-11 23:14 [address] [facility] CT CSPINE WO CONon CT CSPINE WO CON CT CERVICAL SPINE WI THOUT CONTRAST HISTORY: Pain. COMPARISON: None available. TECHNIQUE: Helical CT images were performed of the cervical spine without intravenous contrast. Dose reduction techniques were achieved by using automated exposure control and/or adjustment of mA and/or kV according to patient size and/or use of iterative reconstruction technique. FINDINGS: SILK TOP HAT BODY MAKER RADIOGRAPH: Unremarkable. MINERALIZATION: Normal. CRANIOCERVICAL AND ATLANTOAXIAL [...] by: ZAINAB RICHARDS Date: 2022-01-11 23:[address] [facility] CT FACIAL BONES WO CONon CT [...] associated facial fracture. Mastoids are clear. ORBITS: Council lenses are surgically absent. PARANASAL SINUSES: Trace left greater than right maxillary sinus mucosal thickening IMPRESSION: 1. Soft tissue contusions of the left face and left lateral periorbital region. No facial fracture. 2. No acute intracranial abnormality. Electronically authenticated by: PETROS WELLS Date: 2022-01-11 23:04 Normal [facility] DRUG SCREEN RAPID (URINE)on 01-12-2022 AMP Negative Normal NEGATIVE [facility] Comment on above: Performed By: #### U RCX #### [facility] [address] [place] [address] Dr. Jordan Blackwell BAR Negative Normal NEGATIVE [facility] Comment on above: Performed By: #### U RCX #### [facility] [address] [place] [address] Dr. Jordan Blackwell BUP Negative Normal NEGATIVE [facility] Comment on above: Performed By: #### U RCX #### [facility] [address] [place] [address] Dr. Jordan Blackwell BZO Negative Normal NEGATIVE [facility] Comment on above: Performed By: #### U RCX #### [facility] [address] [place] [address] Dr. Jordan Blackwell DARREN Negative Normal NEGATIVE [facility] Comment on above: Performed By: #### U RCX #### [facility] [address] [place] [address] Dr. Jordan Blackwell CUT-OFFS SEE BELOW Normal [facility] Comment on above: Result Comment: AMP [...] ng/mL Performed By: #### U RCX #### [facility] [address] [place] [address] Dr. Jordan Blackwell DRUG CUT HEADER DRUG CLASS TEST SYST EM CUT-OFF CONCENTRATIONS ARE FOLLOWS: Normal [facility] Comment on above: Performed By: #### U RCX #### [facility] [address] [place] [address] Dr. Jordan Blackwell mAMP Negative Normal NEGATIVE [facility] Comment on above: Performed By: #### U RCX #### [facility] [address] [place] [address] Dr. Jordan Blackwell MTD Negative Normal NEGATIVE [facility] Comment on above: Performed By: #### U RCX #### [facility] [address] [place] [address] Dr. Jordan Blackwell OPI Negative Normal NEGATIVE [facility] Comment on above: Performed By: #### U RCX #### [facility] [address] [place] [address] Dr. Jordan Blackwell OXY Negative Normal NEGATIVE [facility] Comment on above: Performed By: #### U RCX #### [facility] [address] [place] [address] Dr. Jordan Blackwell PCP Negative Normal NEGATIVE [facility] Comment on above: Performed By: #### U RCX #### [facility] [address] [place] [address] Dr. Jordan Blackwell PPX Negative Normal NEGATIVE [facility] Comment on above: Performed By: #### U RCX #### [facility] [address] [place] [address] Dr. Jordan Blackwell TCA Positive Abnormal NEGATIVE [facility] Comment on above: Performed By: #### U RCX #### [facility] [address] [place] [address] Dr. Jordan Blackwell THC Positive Abnormal NEGATIVE [facility] Comment on above: Performed By: #### U RCX #### [facility] [address] [address] [address] Jordan Blackwell ER URINE PROFILEon 2 Bilirubin Ql (U) Negative Normal NEGATIVE [facility] Comment on above: Performed By: #### U AMIC #### [facility] [address] [place] [address] Dr. Joradn Blackwell Clarity (U) CLEAR Normal CLEAR [facility] Comment on above: Performed By: #### U AMIC #### [facility] [address] [place] [address] Dr. Jordan Blackwell Color (U) LT. YELLOW Normal YELLOW [facility] Comment on above: Performed By: #### U AMIC #### [facility] [address] [place] [address] Dr. Jordan Blackwell ERUAHD A micrscopic examina tion will be performed if indicated. Normal [facility] Comment on above: Performed By: #### U AMIC #### [facility] [address] [place] [address] Dr. Jordan Blackwell Glucose Ql (U) Negative Normal NEGATIVE [facility] Comment on above: Performed By: #### U AMIC #### [facility] [address] [place] [address] Dr. Jordan Blackwell Hemoglobin Ql (U) TRACE-INTACT Abnormal NEGATIVE [facility] Comment on above: Performed By: #### U AMIC #### [facility] [address] [place] [address] Dr. Jordan Blackwell Ketones Ql (U) Negative Normal NEGATIVE [facility] Comment on above: Performed By: #### U AMIC #### [facility] [address] [place] [address] Dr. Jordan Blackwell LEUKOCYTES MODERATE Abnormal NEGATIVE [facility] Comment on above: Performed By: #### U AMIC #### [facility] [address] [place] [address] Dr. Jordan Blackwell Nitrite Ql (U) Negative Normal NEGATIVE [facility] Comment on above: Performed By: #### U AMIC #### [facility] [address] [place] [address] Dr. Jordan Blackwell pH (U) 6.0 [pH] Normal 5-9 [facility] Comment on above: Performed By: #### U AMIC #### [facility] [address] [place] [address] Dr. Jordan Blackwell SPEC GRAVITY <=1.005 Abnormal 1.005-<=1. 025 [facility] Comment on above: Performed By: #### U AMIC #### [facility] [address] [place] [address] Dr. Jordan Blackwell UA PROTEIN Negative Normal NEGATIVE/ TRACE [facility] Comment on above: Performed By: #### U AMIC #### [facility] [address] [place] [address] Dr. Jordan Blackwell UR MICRO IND INDICATED Normal [facility] Comment on above: Performed By: #### U AMIC #### [facility] [address] [place] [address] Dr. Jordan Blackwell Urobilinogen Qn (U) 0.2 {Claudia'U}/dL Normal 0.2 - 1. 0 [facility] Comment on above: Performed By: #### U AMIC #### [facility] [address] [place] [address] Dr. Jordan Blackwell URINE MICROSCOPIC ONLYon BACTERIA TRACE Abnormal NONE SEEN [facility] Comment on above: Performed By: #### C BC #### [facility] [address] [place] [address] Dr. Jordan Blackwell Bacteria identified Cx Nom (U) NOT INDICATED Normal [facility] Comment on above: Performed By: #### C BC #### [facility] [address] [place] [address] Dr. Jordan Blackwell CAST NONE SEEN Normal NONE SEEN [facility] Comment on above: Performed By: #### C BC #### [facility] [address] [place] [address] Dr. Jordan Blackwell Crystals LM Nom (Urine sed) NONE SEEN Normal NONE SEEN [facility] Comment on above: Performed By: #### C BC #### [facility] [address] [place] [address] Dr. Jordan Blackwell Epithelial cells LM Ql (Urine sed) RARE Normal NONE SEEN /RARE [facility] Comment on above: Performed By: #### C BC #### [facility] [address] [place] [address] Dr. Jordan Blackwell MUCOUS NONE SEEN Normal NONE SEEN [facility] Comment on above: Performed By: #### C BC #### [facility] [address] [place] [address] Dr. Jordan Blackwell RBC NONE SEEN Abnormal 0-2 [facility] Comment on above: Performed By: #### C BC #### [facility] [address] [place] [address] Dr. Jordan Blackwell WBC 0-2 Abnormal NONE SEEN [facility] Comment on above: Performed By: #### C BC #### [facility] [address] [place] [address] Dr. Jordan Blackwell CBC AUTO DIFFon 01-11-2022 BASO # 0.0 103/ul Normal 0.0-0.1 [facility] Comment on above: Performed By: #### U AMIC #### [facility] [address] [place] [address] Dr. Jordan Blackwell Basophils/100 WBC (Bld) 0.4 % Normal 0.2-2.0 [facility] Comment on above: Performed By: #### U AMIC #### [facility] [address] [place] [address] Dr. Jordan Blackwell EO # 0.1 103/ul Normal 0.0-0.7 [facility] Comment on above: Performed By: #### U AMIC #### [facility] [address] [place] [address] Dr. Jordan Blackwell Eosinophils/100 WBC (Bld) 1.3 % Normal 0.9-7.0 [facility] Comment on above: Performed By: #### U AMIC #### [facility] [address] [place] [address] Dr. Jordan Blackwell Erythrocyte distribution width (RBC) [Ratio] 12.7 % Normal 11.0-15.0 [facility] Comment on above: Performed By: #### U AMIC #### [facility] [address] [address] [address] Jordan Blackwell Hematocrit (Bld) [Volume fraction] 31.8 % Critically low 36.0-48.0 [facility] Comment on above: Performed By: #### U AMIC #### [facility] [address] [place] [address] Dr. Jordan Blackwell Hemoglobin (Bld) [Mass/Vol] 10.7 g/dL Critically low 12.0-16.0 [facility] Comment on above: Performed By: #### U AMIC #### [facility] [address] [place] [address] Dr. Jordan Blackwell IG # 0.09 10e3/ul Critically high 0.00-0.03 [facility] Comment on above: Performed By: #### U AMIC #### [facility] [address] [place] [address] Dr. Jordan Blackwell IG % 1.3 % Critically high 0.0-0.5 [facility] Comment on above: Performed By: #### U AMIC #### [facility] [address] [place] [address] Dr. Jordan Blackwell LYMPH # 2.5 103/ul Normal 1.2-3.8 [facility] Comment on above: Performed By: #### U AMIC #### [facility] [address] [place] [address] Dr. Jordan Blackwell Lymphocytes/100 WBC (Bld) 36.0 % Normal 20.5-60.0 [facility] Comment on above: Performed By: #### U AMIC #### [facility] [address] [place] [address] Dr. Jordan Blackwell MANUAL DIFF REQ NO Normal [facility] Comment on above: Performed By: #### U AMIC #### [facility] [address] [place] [address] Dr. Jordan Blackwell MCH (RBC) [Entitic mass] 33.4 pg Normal 26.7-34.0 [facility] Comment on above: Performed By: #### U AMIC #### [facility] [address] [place] [address] Dr. Jordan Blackwell MCHC (RBC) [Mass/Vol] 33.6 g/dL Normal 29.9-35.2 [facility] Comment on above: Performed By: #### U AMIC #### [facility] [address] [place] [address] Dr. Jordan Blackwell MCV (RBC) [Entitic vol] 99.4 fL Critically high 81.0-99 .0 [facility] Comment on above: Performed By: #### U AMIC #### [facility] [address] [place] [address] Dr. Jordan Blackwell MONO # 0.5 103/ul Normal 0.3-0.8 [facility] Comment on above: Performed By: #### U AMIC #### [facility] [address] [place] [address] Dr. Jordan Blackwell Monocytes/100 WBC (Bld) 7.6 % Normal 1.7-12.0 [facility] Comment on above: Performed By: #### U AMIC #### [facility] [address] [place] [address] Dr. Jordan Blackwell NEUT # 3.7 103/ul Normal 1.4-6.5 [facility] Comment on above: Performed By: #### U AMIC #### [facility] [address] [place] [address] Dr. Jordan Blackwell Neutrophils/100 WBC (Bld) 53.4 % Normal 43.0-75.0 [facility] Comment on above: Performed By: #### U AMIC #### [facility] [address] [place] [address] Dr. Jordan Blackwell Platelet mean volume (Bld) [Entitic vol] 9.6 fL Normal 9.5-13.5 [facility] Comment on above: Performed By: #### U AMIC #### [facility] [address] [address] [address] Jordan Blackwell PLT 186 103/ul Normal 150-450 [facility] Comment on above: Performed By: #### U AMIC #### [facility] [address] [address] [address] Jordan Blackwell RBC 3.20 106/ul Critically low 4.20-5.40 [facility] Comment on above: Performed By: #### U AMIC #### [facility] [address] [address] [address] Jordan Blackwell WBC 7.0 103/ul Normal 4.0-11.0 [facility] Comment on above: Performed By: #### U AMIC #### [facility] [address] [address] [address] Jordan Blackwell ETHANOL (BLD ALC)on 01-12-20 22 ALC NOTE NOTE: 80 mg/dl is [facility] legal limit for a blood alcohol level Normal [facility] Comment on above: Performed By: #### U RCX #### [facility] [address] [place] [address] Dr. Jordan Blackwell Ethanol [Mass/Vol] 21 mg/dL Normal [facility] Comment on above: Performed By: #### U RCX #### [facility] [address] [place] [address] Dr. Jordan Blackwell POINT OF CARE GLUCOSEon Glucose [Mass/Vol] 165 mg/dL Critically high 74-106 [facility] Comment on above: Performed By: #### P OCGLUC ####[facility] [id number] [address] Jordan Blackwell PROF 14(COMP METB)on 022 Albumin [Mass/Vol] 3.3 g/dL Critically low 3.4-5.0 [facility] Comment on above: Performed By: #### U RCX #### [facility] [address] [address] [address] Jordan Blackwell Albumin/Globulin [Mass ratio] 1.0 {ratio} Normal [facility] Comment on above: Performed By: #### U RCX #### [facility] [address] [address] [address] Jordan Blackwell ALP [Catalytic activity/Vol] 85 U/L Normal 46-116 [facility] Comment on above: Performed By: #### U RCX #### [facility] [address] [address] [address] Jordan Blackwell ALT [Catalytic activity/Vol] 22 U/L Normal 14-59 [facility] Comment on above: Performed By: #### U RCX #### [facility] [address] [place] [address] Dr. Jordan Blackwell Anion gap [Moles/Vol] 17.3 mmol/L Normal [facility] Comment on above: Performed By: #### U RCX #### [facility] [address] [place] [address] Dr. Jordan Blackwell AST [Catalytic activity/Vol] 18 U/L Normal 15-37 [facility] Comment on above: Performed By: #### U RCX #### [facility] [address] [place] [address] Dr. Jordan Blackwell Bilirubin [Mass/Vol] 0.3 mg/dL Normal 0.2-1.0 [facility] Comment on above: Performed By: #### U RCX #### [facility] [address] [place] [address] Dr. Jordan Blackwell Calcium [Mass/Vol] 8.0 mg/dL Critically low 8.5-10.1 [facility] Comment on above: Performed By: #### U RCX #### [facility] [address] [place] [address] Dr. Jordan Blackwell Chloride [Moles/Vol] 92 mmol/L Critically low 98-107 [facility] Comment on above: Performed By: #### U RCX #### [facility] [address] [address] [address] Jordan Blackwell CO2 [Moles/Vol] 19.9 mmol/L Critically low 21.0-32.0 [facility] Comment on above: Performed By: #### U RCX #### [facility] [address] [address] [address] Jordan Blackwell Creatinine [Mass/Vol] 0.98 mg/dL Normal 0.55-1.02 [facility] Comment on above: Performed By: #### U RCX #### [facility] [address] [address] [address] Jordan Blackwell EGFR-AF SAMMARINESE >69 Normal >=60 [facility] Comment on above: Performed By: #### U RCX #### [facility] [address] [address] [address] Jordan Blackwell EGFR-NON AF SAMMARINESE 57 mL/min/1.73m2 Critically low >=60 [facility] Comment on above: Performed By: #### U RCX #### [facility] [address] [address] [address] Jordan Blackwell Globulin (S) [Mass/Vol] 3.2 g/dL Normal [facility] Comment on above: Performed By: #### U RCX #### [facility] [address] [address] [address] Jordan Blackwell Glucose [Mass/Vol] 177 mg/dL Critically high 74-106 [facility] Comment on above: Performed By: #### U RCX #### [facility] [address] [address] [address] Jordan Blackwell Potassium [Moles/Vol] 3.2 mmol/L Critically low 3.5-5.1 [facility] Comment on above: Performed By: #### U RCX #### [facility] [address] [address] [address] Jordan Blackwell Protein [Mass/Vol] 6.5 g/dL Normal 6.4-8.2 [facility] Comment on above: Performed By: #### U RCX #### [facility] [address] [address] [address] Jordan Blackwell Sodium [Moles/Vol] 126 mmol/L Critically low 136-145 [facility] Comment on above: Performed By: #### U RCX #### [facility] [address] [address] [address] Jordan Blackwell Urea nitrogen [Mass/Vol] 11.0 mg/dL Normal 7.0-18.0 [facility] Comment on above: Performed By: #### U RCX #### [facility] [address] [address] [address] Jordan Blackwell Urea nitrogen/Creatinine [Mass ratio] 11.2 mg/mg Normal [facility] Comment on above: Performed By: #### U RCX #### [facility] [address] [place] [address] Dr. Jordan Blackwell Vital Signs Date Time Vital Sign Value Performing Clinician Facility 05-09-2022 15:07-0500 Blood Pressure Location Zainab BURNS [facility] 05-09-2022 15:07-0500 Diastolic blood pressure 62 mm[Hg] Zainab BURNS [facility] 05-09-2022 15:07-0500 Heart rate 76 /min Zainab BURNS [facility] 05-09-2022 15:07-0500 Respiratory rate 16 /min Zainab BURNS [facility] 05-09-2022 15:07-0500 Systolic blood pressure 120 mm[Hg] Zainab BURNS [facility] 03-27-2022 06:01-0500 Body temperature 97.6 [degF] MD Ash Bernstein Work Phone: [facility] 03-27-2022 06:01-0500 Diastolic blood pressure 55 mm[Hg] MD Ash Bernstein Work Phone: [facility] 03-27-2022 06:01-0500 Heart rate 92 /min MD Ash Bernstein Work Phone: [facility] 03-27-2022 06:01-0500 Respiratory rate 17 /min MD Ash Bernstein Work Phone: [facility] 03-27-2022 06:01-0500 SaO2% (BldA) [Mass fraction] 98 % MD Ash Bernstein Work Phone: [facility] 03-27-2022 06:01-0500 Systolic blood pressure 129 mm[Hg] MD Ash Bernstein Work Phone: [facility] 03-25-2022 05:13-0500 Body weight 95.8 kg MD Ash Bernstein Work Phone: [facility] 03-20-2022 10:40-0500 Body height 172.72 cm MD Ash Bernstein Work Phone: [facility] 03-19-2022 12:00-0500 Body temperature 98 [degF] MD Ash Bernstein Work Phone: [facility] 03-19-2022 12:00-0500 Diastolic blood pressure 73 mm[Hg] MD Ash Bernstein Work Phone: [facility] 03-19-2022 12:00-0500 Heart rate 103 /min MD Ash Bernstein Work Phone: [facility] 03-19-2022 12:00-0500 Respiratory rate 20 /min MD Ash Bernstein Work Phone: [facility] 03-19-2022 12:00-0500 SaO2% (BldA) [Mass fraction] 98 % MD Ash Bernstein Work Phone: [facility] 03-19-2022 12:00-0500 Systolic blood pressure 115 mm[Hg] MD Ash Bernstein Work Phone: [facility] 03-19-2022 06:00-0500 Body weight 96.5 kg MD Ash Bernstein Work Phone: [facility] 03-15-2022 13:58-0500 Body height 157.48 cm MD Ash Bernstein Work Phone: [facility] 03-09-2022 11:00-0500 Inhaled oxygen flow rate 2 L/min MD Ash Bernstein Work Phone: [facility] 03-08-2022 17:52-0500 Body temperature 100.8 [degF] MD Ash Bernstein Work Phone: [facility] 03-08-2022 17:52-0500 Diastolic blood pressure 86 mm[Hg] MD Ash Bernstein Work Phone: [facility] 03-08-2022 17:52-0500 Heart rate 121 /min MD Ash Bernstein Work Phone: [facility] 03-08-2022 17:52-0500 Respiratory rate 22 /min MD Ash Bernstein Work Phone: [facility] 03-08-2022 17:52-0500 SaO2% (BldA) [Mass fraction] 97 % MD Ash Bernstein Work Phone: [facility] 03-08-2022 17:52-0500 Systolic blood pressure 192 mm[Hg] MD Ash Bernstein Work Phone: [facility] 03-08-2022 13:08-0500 Body height 172.72 cm MD Ash Bernstein Work Phone: [facility] 03-08-2022 13:08-0500 Body weight 96.3 kg MD Ash Bernstein Work Phone: [facility] 03-07-2022 11:42-0500 Body temperature 97.9 [degF] MD Ash Bernstein Work Phone: [facility] 03-07-2022 11:42-0500 Diastolic blood pressure 77 mm[Hg] MD Ash Bernstein Work Phone: [facility] 03-07-2022 11:42-0500 Heart rate 112 /min MD Ash Bernstein Work Phone: [facility] 03-07-2022 11:42-0500 Respiratory rate 18 /min MD Ash Bernstein Work Phone: [facility] 03-07-2022 11:42-0500 SaO2% (BldA) [Mass fraction] 96 % MD Ash Bernstein Work Phone: [facility] 03-07-2022 11:42-0500 Systolic blood pressure 183 mm[Hg] MD Ash Bernstein Work Phone: [facility] 03-07-2022 06:00-0500 Body weight 105.1 kg MD Ash Bernstein Work Phone: [facility] 03-07-2022 04:00-0500 Inhaled oxygen flow rate 10 L/min MD Ash Bernstein Work Phone: [facility] 03-06-2022 15:16-0500 Body height 172.72 cm MD Ash Bernstein Work Phone: [facility] 03-06-2022 15:16-0500 Body mass index (BMI) [Ratio] 32.6 kg/m2 MD Ash Bernstein Work Phone: [facility] 02-20-2022 13:34-0500 Body height 172.72 cm MD Ash Bernstein Work Phone: [facility] 02-20-2022 13:34-0500 Body temperature 97.8 [degF] MD Ash Bernstein Work Phone: [facility] 02-20-2022 13:34-0500 Body weight 99 kg MD Ash Bernstein Work Phone: [facility] 02-20-2022 13:34-0500 Diastolic blood pressure 67 mm[Hg] MD Ash Bernstein Work Phone: [facility] 02-20-2022 13:34-0500 Heart rate 92 /min MD Ash Bernstein Work Phone: [facility] 02-20-2022 13:34-0500 Respiratory rate 16 /min MD Ash Bernstein Work Phone: [facility] 02-20-2022 [id number] SaO2% (BldA) [Mass fraction] 98 % MD Ash Bernstein Work Phone: [facility] 02-20-2022 [id number] Systolic blood pressure 168 mm[Hg] MD Ash Berntsein Work Phone: [facility] Encounters Encounter Date Encounter Type Care Provider Facility Start: 07-24-2022 ambulatory TOMMY MARQUIS Facilit y:[facility] Start: 07-04-2022 End: 07-05-[address] ASH BERNSTEIN . Facility:[facility] Start: 06-30-2022 End: 07-01-[address] ASH BERNSTEIN . Facility:[facility] Start: 06-25-2022 Office outpatient visit 15 minutes [facility] Start: 06-25-2022 End: 06-25-2022 ambulatory Ash Bernstein Facility:[facility] Start: 06-25-2022 End: 06-25-2022 ambulatory MD Ash Bernstein Work Phone: [facility] Work Phone: Start: 06-25-2022 End: 06-25-2022 Patient encounter procedure MD Ash Bernstein Work Phone: [facility] Start: 06-15-2022 End: 06-16-2022 ambulatory Zainab BURNS Facility:[facility] Start: 06-15-2022 End: 06-15-2022 Patient encounter procedure Zainab BURNS General [facility] Start: 06-06-2022 End: 06-07-2022 ambulatory Zainab BURNS Facility:[id number] Start: 06-01-2022 End: 06-02-[address] ASH BERNSTEIN . Facility:[facility] Start: 05-17-2022 End: 05-18-[address] ASH BERNSTEIN . Facility:[facility] Start: 05-11-2022 End: 07-10-[address] ASH BERNSTEIN . Facility:[facility] Start: 05-10-2022 Postop follow up vis it related to original px Asa Napoles [facility] Start: 05-10-2022 End: 05-10-2022 ambulatory Ash Bernstein [facility] Other Start: 05-10-2022 End: 05-10-2022 Patient encounter procedure MD Ash Bernstein Work Phone: [facility] Start: 05-09-2022 End: 05-10-2022 ambulatory Zainab BURNS Facility:[facility] Start: 05-09-2022 End: 05-09-2022 Patient encounter procedure Zainab BURNS General Surgery [facility] Start: 05-02-2022 End: 05-03-[address] ASH BERNSTEIN . Facility:[facility] Start: 05-01-2022 ambulatory Zainab BURNS Facility:[facility] Start: 05-01-2022 End: 05-02-[address] ASH BERNSTEIN . Facility:[facility] Start: 04-27-2022 End: 04-27-[address] ASH BERNSTEIN . Facility:[facility] Start: 04-26-2022 End: 04-27-[address] ASH BERNSTEIN . Facility:[facility] Start: 04-18-2022 End: 04-18-2022 ambulatory Asa Napoles Other [facility] Other Start: 04-18-2022 Telephone encounter Asa Napoles [facility] Start: 04-09-[address] ASH BERNSTEIN . Facili ty:[facility] Start: 03-26-2022 End: 03-26-2022 ambulatory Asa Napoles Other [facility] Other Start: 03-26-2022 Telephone encounter Asa Liuxa [facility] Start: 03-19-2022 End: 03-27-2022 Evaluation and management of inpatient Vanessaaltagracia Garcia Facility:[facility] Start: 03-19-2022 End: 03-27-2022 Evaluation and management of inpatient MD Ash Bernstein Work Phone: [facility] Start: 03-12-2022 ambulatory Facility:[id number] Start: 03-08-2022 End: 03-19-2022 Evaluation and management of inpatient Ash Bernstein Facility:[facility] Start: 03-08-2022 End: 03-19-2022 Evaluation and management of inpatient MD Ash Bernstein Work Phone: [facility] Start: 03-06-2022 End: 03-07-2022 ambulatory Asa Napoles Facility:[facility] Start: 03-06-2022 Telephone encounter Asa Napoles [facility] Start: 03-06-2022 End: 03-07-2022 Admission to same day surgery center MD Ash Bernstein Work Phone: [facility] [place] Start: 03-06-2022 End: 03-07-2022 ambulatory MD Ash Bernstein [facility]: [facility] [facility] Work Phone: Start: 03-05-2022 End: 03-05-2022 ambulatory Asa Napoles Other [address] [facility] [employer] Other Start: 03-05-2022 Telephone encounter Asa Napoles [facility] Start: 03-03-2022 End: 03-04-[address] ASH BERNSTEIN . Facility:[facility] Start: 03-02-2022 End: 03-02-2022 ambulatory Asa Napoles Facility:[facility] Start: 03-02-2022 End: 03-02-2022 Patient encounter procedure MD Ash Bernstein Work Phone: [facility] Start: 02-26-2022 End: 02-27-[address] ASH BERNSTEIN . Facility:[facility] Start: 02-22-2022 End: 02-25-[address] ASH BERNSTEIN . Facility:[facility] Start: 02-21-2022 End: 02-21-2022 ambulatory Ash Bernstein Facility:[facility] Start: 02-21-2022 End: 02-21-2022 ambulatory MD Ash Bernstein Work Phone: [facility] Work Phone: Start: 02-21-2022 End: 02-21-2022 Departed Referred MD Ash Bernstein Work Phone: [facility] [place] Start: 02-20-2022 End: 02-20-2022 ambulatory Asa Napoles Facility:[facility] Start: 02-20-2022 End: 02-20-2022 Patient encounter procedure MD Ash Bernstein Work Phone: [facility] Start: 02-17-2022 End: 02-17-2022 ambulatory VAHID [...] transfuse now? 2 Result Comment: PERF ORMED BY:[facility] [place] [id number] MEDICAL DIRECTORKIMBERLYN SINGER M.D. Start: 03-12-2022 [place] [...] Date Care Activity Detail Author Start: 03-27-2022 [facility] Start: 03-20-2022 Blood chemistry [facility] Start: 03-20-2022 [facility] Start: 03-19-2022 Hospital admission [facility] Start: 03-19-2022 Referral to clinical bolt loader [facility] Start: 03-19-2022 [facility] Start: 03-13-2022 [facility] Start: 03-12-2022 [facility] Start: 03-11-2022 Referral to paintings restorer [facility] Start: 03-11-2022 [facility] Start: 03-10-2022 Vancomycin [Mass/volume] in Serum or Plasma --trough [facility] Start: 03-10-2022 Vancomycin [Mass/volume] in Serum or Plasma --peak [facility] Start: 03-10-2022 [facility] Start: 03-09-[address] [facility] Start: 03-09-2022 [facility] Start: 03-08-2022 Evaluation procedure [facility] Start: 03-08-2022 Blood chemistry [facility] Start: 03-08-2022 Hospital admission [facility] Start: 03-08-2022 [facility] Start: 03-06-2022 Referral to occupational therapist [facility] Start: 03-06-2022 [facility] Start: 02-21-2022 Prosthetic total arthroplasty of left shoulder OR Shoulder Arthroplasty-Total (Left) [facility] Anion gap measurement [facility] Work Phone: Bacteria identified in Blood by Culture [facility] Calcium [Mass/volume ] in Serum or Plasma [facility] Work Phone: Carbon dioxide, tota l [Moles/volume] in Serum or Plasma [facility] Work Phone: Chloride [Moles/volu me] in Serum or Plasma [facility] Work Phone: Creatinine and Glome rular filtration rate.predicted panel - Serum, Plasma or Blood [facility] Work Phone: Ethanol [Mass/volume ] in Urine [facility] Work Phone: Glucose [Mass/volume ] in Serum or Plasma [facility] Work Phone: Measurement of renal function [facility] Work Phone: Patient Education Metabolic Ence phalopathy Hypokalemia (DC) Hyponatremia (DC) Low Magnesium Level (DC) [facility] Work Phone: Patient referral [facility] Work Phone: Potassium [Moles/vol ume] in Serum or Plasma [facility] Work Phone: Sodium [Moles/volume ] in Serum or Plasma [facility] Work Phone: Thiamine [Moles/volu me] in Blood [facility] Work Phone: Urea nitrogen [Mass/ volume] in Serum or Plasma [facility] Work Phone: Immunizations Immunization Date Immunization Notes Care Provider Fa [facility] 03-22-2022 Fluzone QIV High-Dos e 65YR+ MD Ash Bernstein Work Phone: [facility] 03-22-2022 influenza virus vaccine, unspecified formulation Zainab [facility] 01-26-2021 COVID-19 mRNARigo (Pfizer) MD Ash Bernstein Work Phone: [facility] Comment on above: Result Comment: 2022: [id number] 07-13-2020 COVID-19 Rigo Tay (Mary) MD Ash Bernstein Work Phone: [facility] Comment on above: Result Comment: 2022: [id number] 04-09-2020 SARS-CoV-2 (COVID-19 ) mRNA-1273 vaccine Zainab BURNS [facility] 03-28-2020 COVID-19 mRNARigo (Pfizer) MD Ash Bernstein Work Phone: [facility] Comment on above: Result Comment: 2022: [id number] Payers Date Payer Category Payer Unknown [id number] 1960 Medicare [id number] 1960 Self-pay 1960 Unknown [id number] 2.1 [id number] 1955 Unknown [id number] 2.16. 840.1.692786.3.579.2.356 1954 Unknown [id number] 2.16.8 40.1.622968.3.579.2.727 1954 Unknown [id number] 2.16.8 40.1.528760.3.579.2.727 1954 Unknown [id number] 2.16.8 40.1.895849.3.579.2.727 1954 Unknown [id number] 2.16.84 0.1.794101.3.579.2.593 1954 Unknown [id number] 2.16.84 0.1.885268.3.579.2.593 1954 Unknown [id number] 2.16.84 0.1.655877.3.579.2.593 1954 Unknown [id number] 2.16.84 0.1.004948.3.579.2.593 1954 Unknown [id number] 2.16.84 0.1.840729.3.579.2.593 1954 Unknown [id number] 2.16.84 0.1.538347.3.579.2.593 1954 Unknown [id number] 2.16.84 0.1.061600.3.579.2.593 1954 Unknown [id number] 2.16.84 0.1.688490.3.579.2.593 1954 Unknown [id number] 2.16.84 0.1.677992.3.579.2.593 1954 Unknown [id number] 2.16.84 0.1.676826.3.579.2.593 1954 Unknown [id number] 2.16.84 0.1.220659.3.579.2.593 1954 Unknown [id number] 2.16.84 0.1.146839.3.579.2.593 1954 Unknown [id number] 2.16.84 0.1.837989.3.579.2.593 1954 Unknown [id number] 2.16.84 0.1.525968.3.579.2.593 1954 Unknown [id number] 2.16.84 0.1.866064.3.579.2.593 1954 Unknown [id number] 2.16.84 0.1.226192.3.579.2.593 1954 Unknown [id number] 2.16.84 0.1.591539.3.579.2.593 Unknown Unknown [id number] 2.16.8 40.1.871940.3.579.2.531 Unknown [id number] 2.16.8 40.1.899712.3.579.2.531 Unknown [id number] 2.16.8 40.1.347994.3.579.2.531 Unknown [id number] 2.16.8 40.1.572998.3.579.2.531 Unknown [id number] 2.16.8 40.1.232771.3.579.2.531 Unknown [id number] 2.16.8 40.1.979694.3.579.2.531 Unknown [id number] 2.16.8 40.1.624493.3.579.2.531 Unknown [id number] 2.16.8 40.1.837722.3.579.2.531 Social History Date Type Detail Facility Start: 03-06-2022 End: 03-20-2022 Tobacco smoking status NHIS Ex-smoker (finding) [facility] Start: 1955 Sex Assigned At Female F [facility] Start: 03-08-2022 Tobacco smoking stat [facility] Unknown if ever smoked [facility] Start: 03-19-2022 Tobacco smoking stat [facility] Smoker (finding) [facility] Start: 04-08-1977 End: 04-08-1979 History of tobacco use [facility] Tobacco smoking status Never Gener al Surgery [place] [facility] Procedure Code Equipment Code Equipment Origin al Text Equipment Identifier Dates Arthroplasty, shoulder, total Orthopaedic cement, non-medicated ()[id number]( [id number] FDA Start: 03-06-2022 Arthroplasty, shoulder, total Total reverse shoulder prosthesis ()[id number] [id number] FDA Start: 03-06-2022 Arthroplasty, shoulder, total Total reverse shoulder prosthesis ()[id number] [id number] FDA Start: 03-06-2022 Arthroplasty, shoulder, total Polymer orthopaedic cement restrictor, non-bioabsorbable, sterile ()[id number] [id number] FDA Start: 03-06-2022 Arthroplasty, shoulder, total Total reverse shoulder prosthesis ()[id number]( 17)[id number])22.008 52 FDA Start: 03-06-2022 Arthroplasty, shoulder, total Total reverse shoulder prosthesis ()[id number]( 17)[id number])22.000 47 FDA Start: 03-06-2022 Arthroplasty, shoulder, total Total reverse shoulder prosthesis ()[id number]( [id number])21.029 45 FDA Start: 03-06-2022 Arthroplasty, shoulder, total Total reverse shoulder prosthesis ()[id number]( 17)[id number])22.000 64 FDA Start: 03-06-2022 Arthroplasty, shoulder, total Total reverse shoulder prosthesis ()[id number]( 17)[id number])22.004 41 FDA Start: 03-06-2022 Arthroplasty, shoulder, total Total reverse shoulder prosthesis ()[id number]( 17)[id number])[id number] FDA Start: 03-06-2022 Arthroplasty, shoulder, total Total reverse shoulder prosthesis ()[id number]( 17)[id number])[id number] FDA Start: 03-06-2022 Arthroplasty, shoulder, total Total reverse shoulder prosthesis ()[id number] FDA Start: 03-06-2022 Goals Date Patient Goal Desired Activity /State Functional Status Date Assessment Result Facility 05-09-2022 Functional Status N/A General Kamara christine Gaspar 03-27-2022 Functional status Patient at Baseline [facility] Work Phone: 03-19-2022 Functional status Patient is Pro gressing Toward Baseline [facility] Work Phone: 03-07-2022 Functional status Patient is Pro gressing Toward Baseline [facility] Work Phone: Mental Status Date Assessment Result Facility 03-27-2022 Cognitive function Cognitive Sta tus Patient at Baseline [facility] Work Phone: 03-19-2022 Cognitive function Cognitive Sta tus Patient is Progressing Toward Baseline [facility] Work Phone: 03-07-2022 Cognitive function Cognitive Sta tus Patient at Baseline [facility] Work Phone: Clinical Notes 03-06-2022 [...] authenticated by: NAVI GARY Date: 2022-07-04 10:47 [facility] 07-04-2022 Note PROCEDURE: XR WRIST LT MIN 3 V HISTORY: Hand pain ; right wrist pain since falling 3 days ago COMPARISON: None. FINDINGS: BONES:No fracture, acute abnormality, or significant arthropathy. SOFT TISSUES:Mild soft tissue swelling. EFFUSION:None visible. OTHER: Negative. IMPRESSION: 1. No acute bone abnormality. Minimal degenerative joint disease. Electronically authenticated by: NAVI GARY Date: 2022-07-04 10:44 [facility] 06-25-2022 Evaluation note Encounter Date Diagnosis [...] arthroplasty of left shoulder (ICD-10 - Z96.612) [facility] Other 03-01-2023 NoteOPERATIVE NOTE OPERATION DATE: 06/06/2022 [...] in good condition. CC: Ash Bernstein M.D.[id number] Evaluation note* Encounter Date Diagnosis Assessment Notes [...] formal therapy order today. Call with questions/concerns. [facility] Other 02-01-2023 NoteChief Complaint consultation for anemia [...] smoker, quit more t (more content not included)...[facility] Comment: Electronically Signed By: GRANT CAMPEBLL, Zainab Hermosillo\Date and Time Signed: 05/09/22 16:16 [id number] Evaluation note * Encounter Date Diagnosis Assessment Notes Treatment Notes Treatment Clinical Notes Mar, Displaced fracture of proximal end of left humerus (ICD-10 - S42.A) [facility] Other 12-17-2022 Progress note Author Ryan Ibrahim [facility] March 24, 2022 11:20am Note Date/Time March 24, 2022 11:20am [facility] [address] [place] [address] Physiatry(Rehab) Progress Note Signed Patient: Guera Sanchez MR#: [id number] : 1955 Acct:[id number] Age/Sex: 66 / F Adm Date: 2 Loc: Room: 9K8754-8 Type: ADM IN Attending Dr: Ryan Ibrahim MD Copies to: ~ Date of Service: 03/24/2022 Subjective Subjective Narrative: Ms. Sanchez is a 66 year old female with PMH of anxiety, depression, type 2 diabetes, hyperlipidemia hypertension, IBS hypothyroidism, CATAWBA, who presents to acute inpatient rehab for [...] mg 03/19/22 16:38 Bisacodyl 10 Mg Supp.Rect FL 03/19/23 16:37 DAILY PRN Constipation Citalopram Hydrobromide [...] 16:38 Docusate Enema 283 Mg/5 Ml Enema FL 03/19/23 16:37 DAILY PRN Constipation Folic Acid [...] Tablet PO 03/19/23 21:59 Not Given QHS [facility] Sennosides 2 tab 03/20/22 12:00 Sennosides 8.6 [...] equipment to enhance the patient's a functional sabianism Ensure adequate nutrition and hydration Sleep: Denies any issues pain: Denies any issues Discharge planning: Home with family next week I completed a substantive portion of this encounter, the medical decision makingportion of this note in its entirety, including Allied health note review, nursing note review, behavioral health consultant note review, discussion with nursing and case management, and more than 50% of my time was spent on counseling and coordination of care, time spent 23 minutes Patient was personally seen by me, Dr. Ibrahim, on the day of encounter, reviewed the history and the relevant portions of the chart, including current orders, allied health and behavioral health consultant notes, labs/imaging and performed freedman elements of exam and I formulated the plan of care and facilitated the medical decision making. Documented By: Ryan Ibrahim MD 03/24/22 1118 Signed By: <Electronically signed by Ryan Ibrahim MD> 03/24/22 112 [facility] Work Phone: 1(197) 763-741012-17-2022 Progress note Author Ryan Ibrahim [facility] March 24, 2022 8:51am Note Date/Time March 23, 2022 12:37pm [facility] [address] [place] [address] Physiatry(Rehab) Progress Note Signed Patient: Guera Sanchez MR#: [id number] : 1955 Acct:[id number] Age/Sex: 66 / F Adm Date: 2 Loc: Room: [address] [place] [address] Type: ADM IN Attending Dr: Ryan Ibrahim MD Copies to: ~ <Ronel Haney APRN - Last Filed: 03/23/22 12:46> Date of Service: 03/23/2022 Subjective <Ronel Haney APRN - Last Filed: 03/23/22 12:46> Subjective Narrative: Ms. Sanchez is a 66 year old female with PMH of anxiety, depression, type 2 diabetes, hyperlipidemia hypertension, IBS hypothyroidism, C[place]WBA, who presents to acute inpatient rehab for [...] mg 03/19/22 16:38 Bisacodyl 10 Mg Supp.Rect FL 03/19/23 16:37 DAILY PRN Constipation Citalopram Hydrobromide [...] 16:38 Docusate Enema 283 Mg/5 Ml Enema FL 03/19/23 16:37 DAILY PRN Constipation Folic Acid [...] mg DAILY RYAN Administration Assessment/Plan <Ronel Haney, PHARMACY OPERATIONS MANAGER - Last Filed: 03/23/22 12:46> Assessment/Plan (1) [...] equipment to enhance the patient's a functional sabianism Ensure adequate nutrition and hydration Sleep: Denies any issues pain: Denies any issues Discharge planning: Home with family in 7 to 10 days. I spent greater than 15 minutes for services, including rfls-ss-kdtv encounter with the patient, discussion of the case, plan of care, and exam; and cncwywa-kd-ifin activities, such as reviewing pertinent behavioral health consultant documentation, recent therapy notes, laboratory and radiology studies, and discussion of casewith care team including physician, nursing, rn case management, and therapists. More than 50 % of [...] equipment to enhance the patient's a functional sabianism Ensure adequate nutrition and hydration Sleep: Denies any issues pain: Denies any issues Discharge planning: Home with family next week I spent greater than 15 minutes for services, including kbvp-dl-iiiq encounter with the patient, discussion of the case, plan of care, and exam; and vkcbwbt-ri-ngxt activities, such as reviewing pertinent behavioral health consultant documentation, recent therapy notes, laboratory and radiology studies, and discussion of case with care team including physician, nursing, rn case management, and therapists. More than 50 % of time was spent on patient/family counseling or coordination ofcare. Plan: I completed a substantive portion of this encounter, the medical decision makingportion of this note in its entirety, including Allied health note review, nursing note review, behavioral health consultant note review, discussion with nursing and case management, and more than 50% of my time was spent on counseling and coordination of care, time spent 17 minutes Patient was personally seen by me, Dr. Ibrahim, on the day of encounter, reviewed the history and the relevant portions of the chart, including current orders, allied health and behavioral health consultant notes, labs/imaging and performed freedman elements of exam and I formulated the plan of care and facilitated the medical decision making. Blood sugar control improved as well. Likely to home 03/27 Nearly standby assist independent. Documented By: Ronel Haney APRN 03/23/22 1 235 Signed By: <Electronically signed by HEMANTH Haney> 03/23/22 1246 <Electronically signed by Ryan Ibrahim MD> 03/24/22 1032 [facility] Work Phone: 1(347) 849-764712-14-2022 Progress note Author Ryan Ibrahim [facility] March 21, 2022 3:43pm Note Date/Time March 21, 2022 11:53am [facility] [address] [place] [address] Physiatry(Rehab) Progress Note Signed Patient: Guera Sanchez MR#: [id number] : 1955 Acct:[id number] Age/Sex: 66 / F Adm Date: 2 Loc: Room: [address] [place] [address] Type: ADM IN Attending Dr: Ryan Ibrahim MD Copies to: ~ <Ronel Haney APRN - Last Filed: 03/21/22 12:19> Date of Service: 03/21/2022 Subjective <Ronel Haney APRN - Last Filed: 03/21/22 12:19> Subjective Narrative: Ms. Sanchez is a 66 year old female with PMH of anxiety, depression, type 2 diabetes, hyperlipidemia hypertension, IBS hypothyroidism, C[place]WBA, who presents to acute inpatient rehab for [...] Color Urine Appearance Urine pH Ur Specific [place] Urine Protein Urine Glucose (UA) Urine Ketones [...] Appearance Clear Urine pH 7.0 Ur Specific [place] 1.005 Urine Protein Negative Urine Glucose (UA) [...] Color Urine Appearance Urine pH Ur Specific [place] Urine Protein Urine Glucose (UA) Urine Ketones [...] mg 03/19/22 16:38 Bisacodyl 10 Mg Supp.Rect FL 03/19/23 16:37 DAILY PRN Constipation Citalopram Hydrobromide [...] 16:38 Docusate Enema 283 Mg/5 Ml Enema FL 03/19/23 16:37 DAILY PRN Constipation Folic Acid [...] Patch.Td24 TRANSDERML 03/20/23 08:59 Not Given DAILY [facility] Non-Formulary Medication 40 mg 03/19/22 21:00 Pantoprazole [...] mg DAILY RYAN Administration Assessment/Plan <Ronel Haney, PHARMACY OPERATIONS MANAGER - Last Filed: 03/21/22 12:19> Assessment/Plan (1) [...] equipment to enhance the patient's a functional sabianism Ensure adequate nutrition and hydration Sleep: Denies any issues pain: Denies any issues Discharge planning: Home with family in 7 to 10 days. I spent greater than 15 minutes for services, including jnoc-me-ntfy encounter with the patient, discussion of the case, plan of care, and exam; and etlzaqp-xm-pjpf activities, such as reviewing pertinent behavioral health consultant documentation, recent therapy notes, laboratory and radiology studies, and discussion of case with care team including physician, nursing, rn case management, and therapists. More than 50 % of [...] Allied health note review, nursing note review, behavioral health consultant note review, discussion with nursing and case management, and more than 50% of my time was spent on counseling and coordination of care, time spent 21 minutes Patient was personally seen by me, Dr. Ibrahim, on the day of encounter, reviewed the history and the relevant portions of the chart, including current orders, allied health and behavioral health consultant notes, labs/imaging and performed freedman elements of exam and I formulated the plan of care and facilitated the medical decision making. Documented By: Ronel Haney APRN 03/21/22 1 143 Signed By: <Electronically signed by HEMANTH Haney> 03/21/22 1219 <Electronically signed by Ryan Ibrahim MD> 03/21/22 1543 [facility] Work Phone: 1(292) 821-511712-14-2022 Consult note Author Jan Wood [facility] March 21, 2022 12:43pm Note Date/Time March 20, 2022 3:12pm [facility] [address] [place] [address] Hospitalist Consult Note Signed Patient: Guera Sanchez MR#: [id number] : 1955 Acct:[id number] Age/Sex: 66 / F Adm Date: 2 Loc: Room: [address] [place] [address] Type: ADM IN Attending Dr: Ryan Ibrahim MD Copies to: MD Ash Tran MD Joseph Riley, MD Linda Obika, PHARMACY OPERATIONS MANAGER~ HPI DATE OF CONSULTATION: 03/20/22 REQUESTING PROVIDER: [...] negative unless noted in the HPI below [facility] Attestation Statement: The following information was validated [...] 10 Mg Tablet PO 03/20/23 20:59 QPM RYAN Bisacodyl 10 mg 03/19/22 16:38 Bisacodyl 10 Mg Supp.Rect FL 03/19/23 16:37 DAILY PRN Constipation Citalopram Hydrobromide [...] 16:38 Docusate Enema 283 Mg/5 Ml Enema FL 03/19/23 16:37 DAILY PRN Constipation Folic Acid [...] 850 Mg Tablet PO 03/20/23 16:59 BID.WITH.MEALS [facility] Nicotine 1 each 03/20/22 09:00 03/20/22 08:18 [...] % (Auto) N/A, Lymph % (Auto) N/A, [place] % (Auto) N/A, Eos % (Auto) N/A,Baso % (Auto) N/A, Nucleat RBC Rel Count N/A, Neut # (Auto) N/A, Lymph # (Auto) N/A, [place] # (Auto) N/A, Eos # (Auto) N/A, [...] signed by Jan Wood MD> 03/21/22 1243 [facility] Work Phone: 1(948) 628-537612-13-2022 History and physical note Author Ryan Ibrahim [facility] March 20, 2022 6:45pm Note Date/Time March 19, 2022 2:32pm [facility] [address] [place] [address] Physiatry (Rehab) H&P Signed Patient: Guera Sanchez MR#: [id number] : 1955 Acct:[id number] Age/Sex: 66 / F Adm Date: 2 Loc: Room: [address] [place] [address] Type: ADM IN Attending Dr: Ryan Ibrahim MD Copies to: MD Ronel De Souza APRN Joseph Riley, MD~ <Ronel Haney APRN - Last Filed: 03/19/22 15:30> Date of Service: 03/19/2022 HPI <Ronel Haney APRN - Last Filed: 03/19/22 15:30> History of Present Illness: Ms. Sanchez is a 66 year old female with PMH of anxiety, depression, type 2 diabetes, hyperlipidemia hypertension, IBS hypothyroidism, C[place], who presents to acute inpatient rehab for [...] 2 weeks Expected Discharge Destination: Home Rehabilitation [facility]: 02.1 Primary Diagnosis: Metabolic encephalopathy To have patient become more independent and to return home. Medical/ Functional Prognosis: Good Anticipated Functional Outcomes/Goals and Interventions: 1.Therapy Functional Outcome/Goal: Anticipate independent bed mobility Anticipated interventions: Physician management, PT, OT, HOMEMAKER COMPANION, , Dietitian, Rehab Nursing, Case management 2. Therapy Functional Outcome/Goal: Anticipate independent transfers Anticipated interventions: Physician management, PT, OT, HOMEMAKER COMPANION, Case management, Dietitian, Rehab Nursing 3. Therapy Functional Outcome/Goal: Anticipate independent ambulation Anticipated interventions: Physician management, PT, OT, HOMEMAKER COMPANION Case management, Dietitian, Rehab Nursing 4.Therapy Functional Outcome/Goal: Anticipate independent self care Anticipated interventions: Physician management, PT, OT, HOMEMAKER COMPANION, Case management, Dietitian, Rehab Nursing 5.Therapy Functional Outcome/Goal: Anticipate independent functional communication and swallowing Anticipated interventions: Physician management, PT, OT, HOMEMAKER COMPANION, Case management, Dietitian, Rehab Nursing Required Therapy [...] additional therapy on as needed basis. Comments: HOMEMAKER COMPANION to evaluate and treat patient?s cognition, language and communication skills, assess swallow function. Other: Dietitian, Rehab nursing, Wound, P&O, Neuropsychology as needed RATIONALE FOR IRF ADMISSION: Patient has both medical and functional complexities that require 24 hour daily monitoring and intervention from Social Services Specialist as well as other consulting physicians including internal medicine as well as 24 hour daily health technician hearing nursing - for medical safe / optimal management. Patient requires interdisciplinary therapy team rehabilitation care including OT, PT, HOMEMAKER COMPANION, SW, Psychology, Rehab Nursing, requires and can [...] equipment to enhance the patient's a functional sabianism Ensure adequate nutrition and hydration Sleep: Denies any issues pain: Denies any issues Discharge planning: Home with family in 7 to 10 days. I spent greater than 15 minutes for services, including cqmi-bo-cwas encounter with the patient, discussion of the case, plan of care, and exam; and pphyvao-aq-uibp activities, such as reviewing pertinent behavioral health consultant documentation, recent therapy notes, laboratory and radiology studies, and discussion of case with care team including physician, nursing, rn case management, and therapists. More than 50 % of [...] Allied health note review, nursing note review, behavioral health consultant note review, discussion with nursing and case management, and more than 50% of my time was spent on counseling and coordination of care, time spent 45 minutes Patient was personally seen by me, Dr. Ibrahim, on the day of encounter, reviewed the history and the relevant portions of the chart, including current orders, allied health and behavioral health consultant notes, labs/imaging and performed freedman elements of exam and I formulated the plan of care and facilitated the medical decision making. Documented By: Ronel Haney APRN 03/19/22 1 423 Signed By: <Electronically signed by Ryan Ibrahim MD> 03/20/22 3771 [facility] Work Phone: 1([phone]) 606-922812-11-2022 Progress note Author Wilian Pearson [facility] March 18, 2022 3:09pm Note Date/Time March 18, 2022 2:38pm [facility] [address] [place] [address] Hospitalist Progress Note Signed Patient: Guera Sanchez MR#: [id number] : 1955 Acct:[id number] Age/Sex: 66 / F Adm Date: 2 Loc: Room: [address] [place] [address] Type: ADM IN Attending Dr: Wilian Pearson [...] her therapy needs. Plan for discharge to [address] [place] [address] when bed is available Documented By: Wilian Pearson MD 2 1434 Signed By: <Electronically signed by Wilian Pearson MD> 03/18/22 9860 [facility] Work Phone: 1(491) 911-396712-10-2022 Progress note Author Wilian Pearson [facility] March 17, 2022 4:59pm Note Date/Time March 17, 2022 4:37pm [facility] [address] [place] [address] Hospitalist Progress Note Signed Patient: Guera Sanchez MR#: [id number] : 1955 Acct:[id number] Age/Sex: 66 / F Adm Date: 2 Loc: Room: [address] [place] [address] Type: ADM IN Attending Dr: Wilian Pearson [...] plan for hopeful DC to SNF around [place], [place]. With her current care needs, debility, recent left shoulder surgery, diarrhea, memory concerns of late- she would best be served at acute inpatient rehab given her therapy needs. Plan for discharge to here at [facility] when bed is available Documented By: Wilian Pearson MD 2 2046 Signed By: <Electronically signed by Wilian Pearson MD> 03/17/22 9543 [facility] Work Phone: 1(146) 269-420012-09-2022 Progress note Author Wilian Pearson [facility] March 16, 2022 9:25pm Note Date/Time March 16, 2022 1 1:53am [facility] [address] [place] [address] Hospitalist Progress Note Signed Patient: Guera Sanchez MR#: [id number] : 1955 Acct:[id number] Age/Sex: 66 / F Adm Date: 2 Loc: Room: [address] [place] [address] Type: ADM IN Attending Dr: Wilian Pearson [...] 1,000 Ml IV 03/11/23 09:14 Not Given .[id number] RYAN Ertapenem 1 gm in 100 mls [...] plan for hopeful DC to SNF around [facility]. With her current care needs, debility, recent left shoulder surgery, diarrhea, memory concerns of late- she would best be served at SNF- this could be local or in [place]. If the daughter chooses to take her [...] <Electronically signed by Wilian Pearson MD> 03/16/22 4168 [facility] Work Phone: 1(747) 555-200212-09-2022 Progress note Author Marcelino Townsend [facility] March 16, 2022 9:43am Note Date/Time March 16, 2022 8 :36am [facility] [address] [place] [address] Neurology Progress Note Signed with Johnny Patient: Guera Sanchez MR#: [id number] : 1955 Acct:[id number] Age/Sex: 66 / F Adm Date: 2 Loc: Room: [address] [place] [address] Type: ADM IN Attending Dr: Wilian Pearson [...] 4 extremities and symmetric CEREBELLAR EXAM: * Pivtvk-jy-jxfv and alternating movements are intact and normal in the right upper extremity.? Alternating movements intact and normal on the left.? Unable to test sxenpl-sr-xaha * Fobk-md-nsfi and alternating movements are intact and normal [...] signed by Marcelino Townsend DO> 03/16/22 0836 [facility] Work Phone: 1(191) 849-644312-08-2022 Progress note Author Wilian Pearson [facility] March 15, 2022 7:40pm Note Date/Time March 15, 2022 1 1:00am [facility] [address] [place] [address] Hospitalist Progress Note Signed Patient: Guera Sanchez MR#: [id number] : 1955 Acct:[id number] Age/Sex: 66 / F Adm Date: 2 Loc: Room: [address] [place] [address] Type: ADM IN Attending Dr: Wilian Pearson [...] 1,000 Ml IV 03/11/23 09:14 Not Given .[id number] RYAN Ertapenem 1 gm in 100 mls [...] Tablet PO 03/10/23 13:59 1 gm TID RAYN Administration Sodium Chloride 10 ml 03/11/22 21:18 [...] <Electronically signed by Wilian Pearson MD> 03/15/221939 [facility] Work Phone: 1(841) 643-594012-08-2022 Progress note Author Marcelino Townsend [facility] March 15, 2022 4:25pm Note Date/Time March 15, 2022 9 :17am [facility] [address] [place], [place] [id number] Neurology Progress Note Signed Patient: Guera Sanchez MR#: [id number] : 1955 Acct:[id number] Age/Sex: 66 / F Adm Date: 2 Loc: Room: [address] [place] [address] Type: ADM IN Attending Dr: Wilian Pearson [...] 4 extremities and symmetric CEREBELLAR EXAM: * Ngmlsv-lo-rdbf and alternating movements are intact and normal in the right upper extremity. Alternating movements intact and normal on the left. Unable to test uuxrbo-gd-bpkd * Krkq-mv-jjsn and alternating movements are intact and normal [...] have been persistently elevated in the 150s in442q. Her peak blood pressure here was 192/86. [...] systolic. Willdiscuss BP meds with the hospitalist [employer] LIBRARIAN. It is my impression that the patient [...] <Electronically signed by Marcelino Townsend DO> 03/15/22 1621 [facility] Work Phone: 1([phone]) 300-735312-07-2022 Progress note Author Marcelino Townsend [facility] March 14, 2022 4:15pm Note Date/Time March 14, 2022 1 1:36am [facility] [address] [place] [address] Neurology Progress Note Signed Patient: Guera Sanchez MR#: [id number] : 1955 Acct:[id number] Age/Sex: 66 / F Adm Date: 2 Loc: Room: 5P3267-0 Type: ADM IN Attending Dr: Wilian Pearson [...] 4 extremities and symmetric CEREBELLAR EXAM: * Hnmllg-is-yxoe and alternating movements are intact and normal in the right upper extremity. Alternating movements intact and normal on the left. Unable to test vfwvaj-ua-rumf * Rnjs-bg-kjmq and alternating movements are intact and normal [...] have been persistently elevated in the 150s lm772b. Her peak blood pressure here was 192/86. [...] <Electronically signed by Marcelino Townsend DO> 03/14/22 7871 [facility] Work Phone: 1(535) 418-652612-07-2022 Progress note Author Wilian Pearson [facility] March 14, 2022 2:53pm Note Date/Time March 14, 2022 1 :01pm [facility] [address] [place] [address] Hospitalist Progress Note Signed Patient: Guera Sanchez MR#: [id number] : 1955 Acct:[id number] Age/Sex: 66 / F Adm Date: 2 Loc: 4N Room: [address] [place] [address] Type: ADM IN Attending Dr: Wilian Pearson [...] 1,000 Ml IV 03/11/23 09:14 75 mls/hr .[id number] RYAN Administration Ertapenem 1 gm in 100 [...] signed by Wilian Pearson MD> 03/14/22 1453 [facility] Work Phone: 1(593) 994-131712-07-2022 Progress note Author Skyler Ro [facility] March 14, 2022 1:34pm Note Date/Time March 14, 2022 1 :34pm [facility] [address] [place] [address] Gastroenterology PN Signed Patient: Guera Sanchez MR#: [id number] : 1955 Acct:[id number] Age/Sex: 66 / F Adm Date: 2 Loc: 4N Room: 8G5651-4 Type: ADM IN Attending Dr: Wilian Pearson [...] Tablet PO 03/10/23 08:59 Not Given QAM [facility] Citalopram Hydrobromide 80 mg 03/10/22 09:00 03/14/22 [...] 1,000 Ml IV 03/11/23 09:14 75 mls/hr .[id number] RYAN Administration Ertapenem 1 gm in 100 [...] signed by Skyler Ro MD> 03/14/22 1334 [facility] Work Phone: 1([phone]) 484-781412-06-2022 Progress note Author Wilian Pearson [facility] March 13, 2022 7:26pm Note Date/Time March 13, 2022 1 :49pm [facility] [address] [place] [address] Hospitalist Progress Note Signed Patient: Guera Sanchez MR#: [id number] : 1955 Acct:[id number] Age/Sex: 66 / F Adm Date: 2 Loc: Room: [address] [place] [address] Type: ADM IN Attending Dr: Wilian Pearson [...] 1,000 Ml IV 03/11/23 09:14 75 mls/hr .[id number] RYAN Administration Ertapenem 1 gm in 100 [...] by Wilian Pearson MD> 03/13/22 [facility] Work Phone: 1(618) 562-705412-06-2022 Progress note Author Skyler Ro [facility] March 13, 2022 1:55pm Note Date/Time March 13, 2022 9 :35am [facility] [address] [place] [address] Gastroenterology PN Signed Patient: Guera Sanchez MR#: [id number] : 1955 Acct:[id number] Age/Sex: 66 / F Adm Date: 2 Loc: 4N Room: 0Y8745-2 Type: ADM IN Attending Dr: Wilian Pearson [...] 1,000 Ml IV 03/11/23 09:14 75 mls/hr .[id number] RYAN Administration Ertapenem 1 gm in 100 [...] with Documented By: Skyler Ro MD 03/13/22 0935 Signed By: <Electronically signed by Skyler Ro MD> 03/13/22 9493 [facility] Work Phone: 1(729) 874-880912-05-2022 Progress note Author Wilian Pearson [facility] March 12, 2022 6:51pm Note Date/Time March 12, 2022 1 1:15am [facility] [address] [place] [address] Hospitalist Progress Note Signed Patient: Guera Sanchez MR#: [id number] : 1955 Acct:[id number] Age/Sex: 66 / F Adm Date: 2 Loc: 4N Room: 6O0906-3 Type: ADM IN Attending Dr: Wilian Pearson [...] 1,000 Ml IV 03/11/23 09:14 75 mls/hr .S82H96N RYAN Administration Ertapenem 1 gm in 100 [...] Tablet PO 03/10/23 21:59 Not Given QHS YRAN Sodium Chloride 0 ml 03/08/22 13:12 03/12/22 [...] signed by Wilian Pearson MD> 03/12/22 1851 [facility] Work Phone: 1([phone]) 316-725812-05-2022 Consult note Author Skyler Ro [facility] March 12, 2022 3:43pm Note Date/Time March 12, 2022 3 :35pm [facility] [address] [place] [address] Gastroenterology Consult Note Signed with Addenda Patient: Guera Sanchez MR#: [id number] : 1955 Acct:[id number] Age/Sex: 66 / F Adm Date: 2 Loc: Room: [address] [place] [address] Type: ADM IN Attending Dr: Wilian Pearson [...] MPV Neut % (Auto) Lymph % (Auto) [place] % (Auto) Eos % (Auto) Baso % (Auto) Nucleat RBC Rel Count Neut # (Auto) Lymph # (Auto) [place] # (Auto) Eos # (Auto) Baso # [...] % (Auto) N/A Lymph % (Auto) N/A [place] % (Auto) N/A Eos % (Auto) N/A Baso % (Auto) N/A Nucleat RBC Rel Count N/A Neut # (Auto) N/A Lymph # (Auto) N/A [place] # (Auto) N/A Eos # (Auto) N/A [...] Type Blood Type Recheck Antibody Screen Crossmatch ([facility]) 03/12/22 03/12/22 03/12/22 08:15 09:24 09:28 Corrected WBC Uncorrected WBC Count RBC Hgb Hct MCV MCH MCHC RDW Plt Count MPV Neut % (Auto) Lymph % (Auto) [place] % (Auto) Eos % (Auto) Baso % (Auto) Nucleat RBC Rel Count Neut # (Auto) Lymph # (Auto) [place] # (Auto) Eos # (Auto) Baso # [...] Blood Type Recheck Antibody Screen Negative Crossmatch ([facility]) See Detail 03/12/22 03/12/22 10:04 11:51 Corrected WBC Uncorrected WBC Count RBC Hgb Hct MCV MCH MCHC RDW Plt Count MPV Neut % (Auto) Lymph % (Auto) [place] % (Auto) Eos % (Auto) Baso % (Auto) Nucleat RBC Rel Count Neut # (Auto) Lymph # (Auto) [place] # (Auto) Eos # (Auto) Baso # [...] signed by Skyler Ro MD> 03/12/22 1541 [facility] Work Phone: 1(115) 141-742612-05-2022 Progress note Author Rachel Persaud [facility] March 11, 2022 11:14pm Note Date/Time March 11, 2022 1 1:14pm [facility] [address] [place] [address] Event Note Signed Patient: Guera Sanchez MR#: [id number] : 1955 Acct:[id number] Age/Sex: 66 / F Adm Date: 2 Loc: 4N Room: 3X8825-6 Type: ADM IN Attending Dr: Deangelo Kulkarni [...] 30 mins Documented By: Rachel Persaud MD 03/11/226 Signed By: <Electronically signed by Rachel Persaud MD> 03/11/22 0278 [facility] Work Phone: 1(476) 917-355212-04-2022 Progress note Author Deangelo Kulkarni [facility] March 11, 2022 3:09pm Note Date/Time March 11, 2022 9 :31am [facility] [address] [place] [address] Hospitalist Progress Note Signed Patient: Guera Sanchez MR#: [id number] : 1955 Acct:[id number] Age/Sex: 66 / F Adm Date: 2 Loc: 4N Room: 8I9339-3 Type: ADM IN Attending Dr: Deangelo Kulkarni [...] Sodium Chloride 1,000 Ml IV 03/11/23 09:14 .[id number] RYAN Insulin Aspart 0 units 03/08/22 22:00 [...] MD Documented By: Denice Buckner APRN 03/11/22 3238 Signed By: <Electronically signed by HEMANTH Buckner> 03/11/22 5956 <Electronically signed by Deangelo Kulkarni MD> 03/11/22 6309 [facility] Work Phone: 1(243) 111-764312-04-2022 Progress note Author Javan Boothe [facility] March 11, 2022 11:14am Note Date/Time March 11, 2022 1 1:14am [facility] [address] [place] [address] Neurology Progress Note Signed Patient: Guera Sanchez MR#: [id number] : 1955 Acct:[id number] Age/Sex: 66 / F Adm Date: 2 Loc: Room: [address] [place] [address] Type: ADM IN Attending Dr: Deangelo Kulkarni [...] is alert. Today she is oriented to [facility], March. Attentionnow seems normal. Speech is [...] <Electronically signed by Javan Boothe DO> 03/11/22 7512 [facility] Work Phone: 1(838) 484-931512-03-2022 Progress note Author Deangelo Kulkarni [facility] March 10, 2022 1:28pm Note Date/Time March 10, 2022 1 0:49am [facility] [address] [place] [address] Hospitalist Progress Note Signed Patient: Guera Sanchez MR#: [id number] : 1955 Acct:[id number] Age/Sex: 66 / F Adm Date: 2 Loc: 4N Room: [address] [place] [address] Type: ADM IN Attending Dr: Deangelo Kulkarni [...] 1,000 Ml IV 03/08/23 17:59 75 mls/hr .[id number] RYAN Administration Folic Acid 1 mg/ Dextrose [...] 04:18 Dextrose IV 03/08/23 19:29 0.5 mcg/kg/hr .[id number] RYAN 12.04 mls/hr Titration Protocol 0.2 MCG/KG/HR [...] signed by Deangelo Kulkarni MD> 03/10/22 1328 [facility] Work Phone: 1(722) 170-318512-03-2022 Progress note Author Javan Boothe [facility] March 10, 2022 10:44am Note Date/Time March 10, 2022 1 0:44am [facility] [address] [place], [place] [address] Neurology Progress Note Signed Patient: Guera Sanchez MR#: [id number] : 1955 Acct:[id number] Age/Sex: 66 / F Adm Date: 2 Loc: Room: [address] [place] [address] Type: ADM IN Attending Dr: Deangelo Kulkarni [...] [facility] [place] Her left upper extremity is still not [...] emotionally labile. She is alert. Oriented to [facility], 2021, butdid not know the month. [...] <Electronically signed by Javan Boothe DO> 03/10/22 1046 [facility] Work Phone: 1(415) 245-411612-02-2022 Consult note Author Javan Boothe [facility] March 09, 2022 3:31pm Note Date/Time March 09, 2022 1 :53pm [facility] [address] [place] [address] Neurology Consult Note Signed Patient: Guera Sanchez MR#: [id number] : 1955 Acct:[id number] Age/Sex: 66 / F Adm Date: 2 Loc: Room: [address] [place] [address] Type: ADM IN Attending Dr: Deangelo Kulkarni MD Copies to: DO Ash Mathew MD Obaydah M Daromar, MD~ HPI Consult Date: 03/09/22 [employer] Firer/Fireman: Javan Boothe DO [facility] Vaccinated for COVID-19?: Unknown Medical History Anxiety [...] Katie Butler M.D.03/08/2022 4:28 PM Dictation Location: [place] [address] Chest X-Ray 03/08/22 14:37 IMPRESSION: CHF FINDINGS. NO FOCAL CONSOLIDATION IS SEEN TO SUGGEST PNEUMONIA. Impression dictated by: Ryan Chacon Jr., D.O.03/08/2022 4:11 PM Dictation Location: [place] [address] Assessment/Plan (1) Altered mental status: Assessment/Problem Details: [...] lesions. Affect normal. She isalert. Oriented to [facility], 2021, but did not know the [...] signed by Javan Boothe DO> 03/09/22 1531 [facility] Work Phone: 1(462) 510-405012-02-2022 Progress note Author Deangelo Kulkarni [facility] March 09, 2022 2:11pm Note Date/Time March 09, 2022 1 1:53am [facility] [address] [place] [address] Hospitalist Progress Note Signed Patient: Guera Sanchez MR#: [id number] : 1955 Acct:[id number] Age/Sex: 66 / F Adm Date: 2 Loc: Room: [address] [place] [address] Type: ADM IN Attending Dr: Deangelo Kulkarni [...] 1,000 Ml IV 03/08/23 17:59 75 mls/hr .[id number] RYAN Administration Vancomycin HCl 1 gm in [...] 07:37 Dextrose IV 03/08/23 19:29 0.8 mcg/kg/hr .[id number] RYAN 19.26 mls/hr Administration Protocol 0.2 MCG/KG/HR [...] signed by Deangelo Kulkarni MD> 03/09/22 1411 [facility] Work Phone: 1([phone] 950-307812-01-2022 History and physical note Author Deangelo Kulkarni [facility] March 08, 2022 7:23pm Note Date/Time March 08, 2022 6 :07pm [facility] [address] [place] [address] Hospitalist H&P Signed Patient: Guera Sanchez MR#: [id number] : 1955 Acct:[id number] Age/Sex: 66 / F Adm Date: 2 Loc: Room: [address] [place] [address] Type: ADM IN Attending Dr: Deangelo Kulkarni MD Copies to: MD Denice De Souza, HEMANTH Kulkarni MD~ HPI DATE [...] altered mental status. According to the ER [employer]IAN she was found by a friend at [...] unless noted in the HPI or below [facility] Attestation Statement: The following information was validated [...] % (Auto) 9.5 % (.) 03/08/22 13:18 Platte % (Auto) 13.4 % (.) 03/08/22 13:18 Eos % (Auto) 0.0 % (.) 03/08/22 13:18 Baso % (Auto) 0.1 % (.) 03/08/22 13:18 Nucleat RBC Rel Count 0.0 /100 WBC (0-0.5) 03/08/22 13:18 Neut # (Auto) 9.8 x10E3/uL (1.8-7.7) H 03/08/22 13:18 Lymph # (Auto) 1.2 x10E3/uL (1.00-4.8) 03/08/22 13:18 [place]atte # (Auto) 1.7 x10E3/uL (0.0-0.8) H 03/08/22 [...] pH 8.0 (5.0-9.0) 03/08/22 14:14 Ur Specific [place] 1.015 (1.001-1.030) 03/08/22 14:14 Urine Protein 30 [...] 03/08/22 180 Signed By: <Electronically signed by HEMNATH Buckner> 03/08/22 1858 <Electronically signed by Deangelo Kulkarni MD> 03/08/22 192 [facility] Work Phone: 1([phone]) 443-178611-29-2022 Evaluation note* Encounter Date Diagnosis Assessment Notes Treatment Notes Treatment Clinical Notes Feb, 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) [facility] Other Evaluation + Plan note No data available for this section General Surgery [place] Evaluation noteNo assessment information available [facility] Work Phone: Evaluation note* Diagnosis Onset Date Resolution Status Acute electrocardiography changes acute Altered mental status acute Hypokalemia acute Hypomagnesemia acute Hyponatremia acute Metabolic encephalopathy acu te [facility] Work Phone: Evaluation note* Diagnosis Onset Date Resolution Status Acute electrocardiography changes acute Altered mental status acute Duodenitis acute Hypokalemia acute Hypomagnesemia acute Hyponatremia acute Metabolic encephalopathy acu te PRES (posterior reversible encephalopathy syndrome) acute [facility] Work Phone: evaluation note* Diagnosis Onset Date Resolution Status Acute electrocardiography changes acute Altered mental status acute Duodenitis acute Hypokalemia acute Hypomagnesemia acute Hyponatremia acute Metabolic encephalopathy acu te PRES (posterior reversible encephalopathy syndrome) acute Anemia acute Duodenitis acute Hypokalemia acute Hypomagnesemia acute Hyponatremia acute Impaired mobility and activities of daily living acute Metabolic encephalopathy acu te PRES (posterior reversible encephalopathy syndrome) acute [facility] Work Phone: [email or web address] noteNo InformationNortKindred Healthcare [employer] Other Hisjzmq general Narrative - Reported* Type Description Date Medical History diabetes Medical History hypertension Medical History anxiety Medical History left shoulder fracture [facility] [employer] Other Hiskjnf general Narrative - Reported* Type Description Date Medical History diabetes Medical History hypertension Medical History anxiety Medical History left shoulder fracture Surgical History left reverse total shoulder Hospitalization History See Surgeries [facility] [employer] Other Hospital Discharge instructions Additional Instructions DISCHARGE [...] OTHER -Any problems call the office at [phone] or return to Emergency Room. If you [...] in one week; call the office at [phone] if your appointment has not been made already. Call [phone] for further questions.[facility] Work Phone: Hospital Discharge instructions Additional Instructions [...] infection -Care to be managed by rehab providers.[facility] Work Phone: Hospital Discharge instructions Additional Instructions [...] medication list, photo ID, and any insurance card(s).[facility] Work Phone: Hospital Discharge instructions No data available for this section General Surgery [place] Progress note No data available for this section General Surgery [place] Chief Complaint and Reason for Visit Chief [...] 04/18/22 post op c are after moving. [facility] or [facility] in [place], [place] if available Diagnosis 1 Displaced fracture o f proximal end of left humerus (S42.A) Referral Organization [facility] Referring Provider First Name Asa [...] Ellison 04/03/2022 03:03:11 PM >called [facility] and confirmed that they will consider scheduling patient but will need records and Operative report faxed first, once received they will forward the documents to their shoulder specialists to see if they will agree to take over care for patient now that she is in [place]. Asia Ellison 04/16/2022 10:37:33 AM >called and confirmed patient is coming in 04/18/22 with Asia Mcarthur 05/18/2022 10:11:24 AM >office received the consult note directly 04/19/22, closing referral Clinical Notes [facility] Orthopaedics - [facility] ph [phone] / fax [phone] Additional Source Comments Care Teams (unrecognized sec tion and content) Team Status: Active Member Role Status Dates Ash Bernstein MD Primary Care Provider Active Team Status: Inactive Member Role Status Dates Ash Bernstein MD Primary Care Provider Active Asa Napoles MD Attending Provider Active Team Status: Active Member Role Status Dates Ash Bernstein MD Primary Care Provider Active Barry oClby DO Emergency Provider Active Deangelo Kulkarni MD [...] Zainab Story , DO Other Provider Active Lauren Vicente MD Other Provider Active Zack Alonso MD Other Provider Active Keisha Posadas , SECONDARY SCHOOL TEACHER LIBRARIAN-C Other Provider Active Wilian Pearson MD Other [...] section and content) DATE CREATED AUTHOR 04/25/2022 [facility] DATE CREATED AUTHOR AUTHOR'S ORGANIZ ATION 06/16/2022 [facility] DATE CREATED AUTHOR AUTHOR'S ORGANIZ ATION 08/08/2022 [facility] DATE CREATED AUTHOR AUTHOR'S ORGANIZ ATION 10/23/2022 [facility] REASON FOR VISIT (unrecogniz ed section and [...] BE BASED ON THE PRIMARY CLINICAL RECORDS. [facility]. provides no warranty or guarantee of the accuracy or completeness of information in this document.
[2023-05-20 14:22] LABS: Anion Gap 12.1; BUN Creatinine Ratio 15.7; Calcium 9.2 mg/dL (8.5-10.1); Carbon Dioxide 31.5 mmol/L (21.0-32.0); Chloride 101 mmol/L (98-107); Estimated GFR (African America >60 (>=60); Estimated GFR (Non-African Ame >60 (>=60); Glucose 150 mg/dL (74-106); Magnesium 1.6 mg/dL (1.8-2.4); Potassium 4.6 mmol/L (3.5-5.1); Sodium 140 mmol/L (136-145)
== END 2023-05-20 12:46 | disposition home or self-care (01) ==
LOC: LAB 12:46
PROVIDERS: PCP Family Medicine; Visit Provider Family Medicine
DX: E83.42 Hypomagnesemia (principal); R89.9 Unspecified abnormal finding in specimens from other organs, systems and tissues
CPT/HCPCS: 36415; 80048; 83735

== ENCOUNTER 2023-06-14 10:02 | Outpatient (OUT) | payer MEDICARE, SELFPAY ==
[2023-06-14 11:30] LABS: Anion Gap 12.8; BUN Creatinine Ratio 14.4; Calcium 8.7 mg/dL (8.5-10.1); Carbon Dioxide 28.6 mmol/L (21.0-32.0); Chloride 99 mmol/L (98-107); Estimated GFR (African America >60 (>=60); Estimated GFR (Non-African Ame 57 (>=60); Glucose 122 mg/dL (74-106); Magnesium 1.6 mg/dL (1.8-2.4); Potassium 4.4 mmol/L (3.5-5.1); Sodium 136 mmol/L (136-145)
== END 2023-06-14 10:03 | disposition home or self-care (01) ==
LOC: LAB 10:05
PROVIDERS: PCP Family Medicine; Visit Provider Family Medicine
DX: E83.42 Hypomagnesemia (principal); R89.9 Unspecified abnormal finding in specimens from other organs, systems and tissues
CPT/HCPCS: 36415; 80048; 83735

== ENCOUNTER 2023-07-12 11:08 | Outpatient (OUT) | payer MEDICARE, SELFPAY ==
--- NOTE | 2023-07-12 11:19 | MM_ITS ---
Patient Name: JACINTO SANCHEZ MR#: [id number] : 1955 Exam Date: 07/12/2023 Ordering Doctor: DR ASH BERNSTEIN . RADIOLOGY REPORT PROCEDURE: MM TOMOSYNTHESIS SCREENING BI COMPARISON: No prior studies available for comparison. INDICATIONS: screening Calculator Name NCI Breast Cancer Risk Assessment Tool 5 Year Breast Cancer Risk 3.30% Lifetime Breast Cancer Risk 9.90% Personal Breast Cancer No Personal Ovarian Cancer No Treatments None Family Cancers Sister with breast cancer at age 69; Mother with lung cancer at age 74. LOCATION: [facility] BREAST COMPOSITION: Almost entirely fatty. FINDINGS: DIAGNOSTIC CATEGORY 1--NEGATIVE. RIGHT BREAST: No significant suspicious finding. LEFT BREAST: No significant suspicious finding. RECOMMENDATIONS: ROUTINE MAMMOGRAM AND CLINICAL EVALUATION IN 12 MONTHS. PLEASE NOTE: A NORMAL MAMMOGRAM DOES NOT EXCLUDE THE POSSIBILITY OF BREAST CANCER. A CLINICALLY SUSPICIOUS PALPABLE LUMP SHOULD BE BIOPSIED. Dictated by: Arnoldo Ojeda M.D. on 07/12/2023 at 14:07 Approved by: Arnoldo Ojeda M.D. on 07/12/2023 at 14:09
[2023-07-12 13:19] LABS: Anion Gap 14.5; BUN Creatinine Ratio 10.2; Calcium 9.3 mg/dL (8.5-10.1); Carbon Dioxide 27.8 mmol/L (21.0-32.0); Chloride 98 mmol/L (98-107); Estimated GFR (African America >60 (>=60); Estimated GFR (Non-African Ame >60 (>=60); Glucose 149 mg/dL (74-106); Potassium 4.3 mmol/L (3.5-5.1); Sodium 136 mmol/L (136-145)
[2023-07-12 13:20] LABS: Magnesium 1.5 mg/dL (1.8-2.4)
== END 2023-07-12 11:09 | disposition home or self-care (01) ==
LOC: MAMMO 11:08
PROVIDERS: PCP Family Medicine; Visit Provider Family Medicine
DX: E83.42 Hypomagnesemia (principal); R89.9 Unspecified abnormal finding in specimens from other organs, systems and tissues; Z80.3 Family history of malignant neoplasm of breast; Z80.1 Family history of malignant neoplasm of trachea, bronchus and lung; Z12.31 Encounter for screening mammogram for malignant neoplasm of breast
CPT/HCPCS: 36415; 77063; 77067; 80048; 83735

== ENCOUNTER 2023-08-13 12:15 | Outpatient (OUT) | payer MEDICARE, SELFPAY ==
--- NOTE | 2023-08-13 12:40 | XR_ITS ---
The [address] [address] Patient Name: JACINTO SANCHEZ MRN: [id number] date: 1955 Sex: F Assigned Patient Location: [facility] Current Patient Location: [facility] Accession/Order Number: [id number] Exam Date: 08/13/2023 12:43 Report Date: 08/13/2023 13:23 At the request of: ASH BERNSTEIN Procedure: XR DEXA axial skeleton EXAMINATION: XR DEXA axial skeleton HISTORY: Age-related osteoporosis M81.0 COMPARISON: No relevant comparison available. TECHNIQUE: Dual-energy X-ray absorptiometry (DXA) was performed. FINDINGS: FOREARM ANALYSIS: Average bone mineral density is 0.491 g/cm2. T-score (standard deviation relative to young adult mean): -3.1 . HIP ANALYSIS: Lowest bone mineral density is within the left femoral trochanter, 0.546 g/cm2. T-score (standard deviation relative to young adult mean): -2.7 . XR/XR DEXA axial skeleton IMPRESSION: World Yrn Organization Classification: Osteoporosis - High Fracture Risk Electronically authenticated by: NAVI GARY Date: 08/13/2023 13:23
[2023-08-13 13:29] LABS: Anion Gap 9.8; BUN Creatinine Ratio 10.5; Calcium 9.3 mg/dL (8.5-10.1); Carbon Dioxide 32.3 mmol/L (21.0-32.0); Chloride 102 mmol/L (98-107); Estimated GFR (African America >60 (>=60); Estimated GFR (Non-African Ame >60 (>=60); Glucose 153 mg/dL (74-106); Potassium 5.1 mmol/L (3.5-5.1); Sodium 139 mmol/L (136-145)
== END 2023-08-13 12:16 | disposition home or self-care (01) ==
PROVIDERS: PCP Family Medicine; Visit Provider Family Medicine
DX: M81.0 Age-related osteoporosis without current pathological fracture (principal); E83.42 Hypomagnesemia; R89.9 Unspecified abnormal finding in specimens from other organs, systems and tissues
CPT/HCPCS: 36415; 77080; 80048; 83735

== ENCOUNTER 2023-09-06 11:23 | Outpatient (OUT) | payer MEDICARE, SELFPAY ==
[2023-09-06 11:58] LABS: Basophils Percent Auto 0.6 % (0.2-2.0); Eosinophils Absolute Auto 0.1 10^3/uL (0.0-0.7); Eosinophils Percent Auto 0.9 % (0.9-7.0); Hematocrit 41.1 % (36.0-48.0); Hemoglobin 12.8 g/dL (12.0-16.0); Immature Granulocytes Abs Auto 0.02 10^3/uL (0.00-0.03); Immature Granulocytes Pct Auto 0.3 % (0.0-0.5); Lymphocytes Absolute Auto 1.8 10^3/uL (1.2-3.8); Lymphocytes Percent Auto 27.9 % (20.5-60.0); Mean Corpuscular HGB Conc 31.1 g/dL (29.9-35.2); Mean Corpuscular Hemoglobin 30.7 pg (26.7-34.0); Mean Corpuscular Volume 98.6 fL (81.0-99.0); Mean Platelet Volume 10.2 fL (9.5-13.5); Monocytes Absolute Auto 0.4 10^3/uL (0.3-0.8); Monocytes Percent Auto 6.7 % (1.7-12.0); Neutrophils Absolute Auto 4.2 10^3/uL (1.4-6.5); Neutrophils Percent Auto 63.6 % (43.0-75.0); Platelet Count 266 10^3/uL (150-450); Red Blood Count 4.17 10^6/uL (4.20-5.40); Red Cell Distribution Width 13.4 % (11.0-15.0); White Blood Count 6.6 10^3/uL (4.0-11.0)
[2023-09-06 12:31] LABS: Estimated Average Glucose 131 mg/dL; Glycohemoglobin A1C 6.2 % (4.5-6.2)
[2023-09-06 12:34] LABS: Free T4 0.93 ng/dL (0.76-1.46)
[2023-09-06 12:44] LABS: Alanine Aminotransferase 19 U/L (14-59); Albumin Globulin Ratio 0.9; Albumin Level 3.6 g/dL (3.4-5.0); Alkaline Phosphatase 126 U/L (46-116); Anion Gap 10.1; Aspartate Amino Transferase 18 U/L (15-37); BUN Creatinine Ratio 10.5; Bilirubin Total 0.5 mg/dL (0.2-1.0); Calcium 8.5 mg/dL (8.5-10.1); Carbon Dioxide 30.4 mmol/L (21.0-32.0); Chloride 96 mmol/L (98-107); Chol HDL Ratio 2.6; Cholesterol 181 mg/dL (<=200); Estimated GFR (African America >60 (>=60); Estimated GFR (Non-African Ame >60 (>=60); Free T3 2.01 pg/mL (2.18-3.98); Globulin 3.9 g/dL; Glucose 134 mg/dL (74-106); HDL Cholesterol 69 mg/dL (40-60); Potassium 4.5 mmol/L (3.5-5.1); Sodium 132 mmol/L (136-145); Thyroid Stimulating Hormone 1.342 uIU/mL (0.358-3.740); Total Protein 7.5 g/dL (6.4-8.2); Triglycerides 106 mg/dL (<=150); VLDL CHOLESTEROL 21.2 mg/dL
== END 2023-09-06 11:24 | disposition home or self-care (01) ==
LOC: LAB 11:25
PROVIDERS: PCP Family Medicine; Visit Provider Family Medicine
DX: R53.83 Other fatigue (principal); I10 Essential (primary) hypertension; D50.9 Iron deficiency anemia, unspecified; E11.9 Type 2 diabetes mellitus without complications
CPT/HCPCS: 36415; 80053; 80061; 83036; 84439; 84443; 84481; 85025

== ENCOUNTER 2023-10-17 09:40 | Outpatient (OUT) | payer MEDICARE, SELFPAY ==
[2023-10-17 11:28] LABS: Free T4 0.72 ng/dL (0.76-1.46)
[2023-10-17 11:31] LABS: Anion Gap 10.5; BUN Creatinine Ratio 11.5; Calcium 8.6 mg/dL (8.5-10.1); Carbon Dioxide 30.2 mmol/L (21.0-32.0); Chloride 100 mmol/L (98-107); Estimated GFR (African America >60 (>=60); Estimated GFR (Non-African Ame >60 (>=60); Free T3 2.56 pg/mL (2.18-3.98); Glucose 160 mg/dL (74-106); Magnesium 2.1 mg/dL (1.8-2.4); Potassium 4.7 mmol/L (3.5-5.1); Sodium 136 mmol/L (136-145); Thyroid Stimulating Hormone 1.739 uIU/mL (0.358-3.740)
== END 2023-10-17 09:41 | disposition home or self-care (01) ==
LOC: LAB 09:43
PROVIDERS: PCP Family Medicine; Visit Provider Family Medicine
DX: E83.42 Hypomagnesemia (principal); R89.9 Unspecified abnormal finding in specimens from other organs, systems and tissues; E03.9 Hypothyroidism, unspecified
CPT/HCPCS: 36415; 80048; 83735; 84439; 84443; 84481

== ENCOUNTER 2023-12-10 14:00 | Outpatient (OUT) | payer MEDICARE, SELFPAY ==
[2023-12-11 09:12] LABS: Anion Gap 12.7; BUN Creatinine Ratio 10.6; Calcium 8.9 mg/dL (8.5-10.1); Carbon Dioxide 28.7 mmol/L (21.0-32.0); Chloride 100 mmol/L (98-107); Estimated GFR (African America >60 (>=60); Estimated GFR (Non-African Ame >60 (>=60); Glucose 155 mg/dL (74-106); Magnesium 1.5 mg/dL (1.8-2.4); Potassium 4.4 mmol/L (3.5-5.1); Sodium 137 mmol/L (136-145)
== END 2023-12-10 14:01 | disposition home or self-care (01) ==
LOC: LAB 14:02
PROVIDERS: PCP Family Medicine; Visit Provider Family Medicine
DX: E83.42 Hypomagnesemia (principal); R89.9 Unspecified abnormal finding in specimens from other organs, systems and tissues
CPT/HCPCS: 36415; 80048; 83735; 84100

== ENCOUNTER 2023-12-19 14:15 | Outpatient (OUT) | payer MEDICARE, SELFPAY ==
[2023-12-19 15:36] LABS: Anion Gap 12.5; BUN Creatinine Ratio 8.1; Calcium 9.3 mg/dL (8.5-10.1); Carbon Dioxide 30.6 mmol/L (21.0-32.0); Chloride 99 mmol/L (98-107); Estimated GFR (African America >60 (>=60); Estimated GFR (Non-African Ame 56 (>=60); Glucose 158 mg/dL (74-106); Magnesium 1.4 mg/dL (1.8-2.4); Phosphorus 3.4 mg/dL (2.6-4.7); Potassium 5.1 mmol/L (3.5-5.1); Sodium 137 mmol/L (136-145)
== END 2023-12-19 14:16 | disposition home or self-care (01) ==
LOC: LAB 14:15
PROVIDERS: PCP Family Medicine; Visit Provider Family Medicine
DX: E83.42 Hypomagnesemia (principal); R89.9 Unspecified abnormal finding in specimens from other organs, systems and tissues; R79.9 Abnormal finding of blood chemistry, unspecified
CPT/HCPCS: 36415; 80048; 83735; 84100

== ENCOUNTER 2024-01-09 12:25 | Outpatient (OUT) | payer MEDICARE, SELFPAY ==
[2024-01-09 13:09] LABS: Albumin Level 3.4 g/dL (3.4-5.0); Anion Gap 12.4; BUN Creatinine Ratio 15.7; Calcium 9.3 mg/dL (8.5-10.1); Carbon Dioxide 28.4 mmol/L (21.0-32.0); Chloride 96 mmol/L (98-107); Estimated GFR (African America >60 (>=60 mL/min/1.73m^2); Estimated GFR (Non-African Ame 50 (>=60 mL/min/1.73m^2); Glucose 159 mg/dL (74-106); Magnesium 1.5 mg/dL (1.8-2.4); Phosphorus 3.1 mg/dL (2.6-4.7); Potassium 4.8 mmol/L (3.5-5.1); Sodium 132 mmol/L (136-145)
== END 2024-01-09 12:26 | disposition home or self-care (01) ==
LOC: LAB 12:25
PROVIDERS: PCP Family Medicine; Visit Provider Internal Medicine
DX: E83.42 Hypomagnesemia (principal); E87.1 Hypo-osmolality and hyponatremia; I10 Essential (primary) hypertension
CPT/HCPCS: 36415; 80069; 83735

== ENCOUNTER 2024-01-13 13:25 | Outpatient (REF) | payer MEDICARE, SELFPAY ==
[2024-01-15 09:09] LABS: Magnesium, U 7.1 mg/dL (Not Estab.); Magnesium,Urine 24hr 131.4 mg/24 hr (12.0-293.0)
== END 2024-01-13 13:26 | disposition home or self-care (01) ==
LOC: LAB 13:25
PROVIDERS: PCP Family Medicine; Visit Provider Internal Medicine
DX: E87.1 Hypo-osmolality and hyponatremia (principal); E83.42 Hypomagnesemia; I10 Essential (primary) hypertension
CPT/HCPCS: 81050; 83735

== ENCOUNTER 2024-03-20 12:05 | Outpatient (OUT) | payer MEDICARE, SELFPAY ==
[2024-03-20 12:53] LABS: Albumin Level 3.3 g/dL (3.4-5.0); Anion Gap 10.5; BUN Creatinine Ratio 11.2; Calcium 8.6 mg/dL (8.5-10.1); Carbon Dioxide 31.9 mmol/L (21.0-32.0); Chloride 97 mmol/L (98-107); Estimated GFR (African America >60 (>=60 mL/min/1.73m^2); Estimated GFR (Non-African Ame 56 (>=60 mL/min/1.73m^2); Glucose 178 mg/dL (74-106); Magnesium 1.5 mg/dL (1.8-2.4); Phosphorus 2.9 mg/dL (2.6-4.7); Potassium 4.4 mmol/L (3.5-5.1); Sodium 135 mmol/L (136-145)
[2024-03-20 13:17] LABS: Bilirubin Urine NEGATIVE (NEGATIVE); Blood Urine NEGATIVE (NEGATIVE); Clarity Urine CLEAR (CLEAR); Color Urine LT. YELLOW (YELLOW); Glucose Urine UA NEGATIVE (NEGATIVE); Ketones Urine NEGATIVE (NEGATIVE); Leukocyte Esterase Urine SMALL (NEGATIVE); Nitrite Urine NEGATIVE (NEGATIVE); Protein Urine NEGATIVE (NEG/TRACE); Specific Gravity Urine 1.015 (1.005-1.025); Urobilinogen Urine 0.2 EU/dL (0.2-1.0); pH Urine 7.5 (5.0-9.0)
[2024-03-20 13:28] LABS: Bacteria Urine TRACE #/HPF (NONE SEEN); Cast Seen? NONE SEEN #/LPF (NONE SEEN); Crystals Seen? None Seen #/HPF (None Seen); Mucus Urine NONE SEEN (NONE SEEN); RBC Urine 0-2 #/HPF (0-2); Squamous Epithelial Cell Urine FEW #/LPF (NONE/RARE)
[2024-03-20 13:30] LABS: Protein Creatinine Ratio Urine 0.25; Total Protein Urine Random 8.3 mg/dL (<=11.9)
== END 2024-03-20 12:06 | disposition home or self-care (01) ==
LOC: LAB 12:06
PROVIDERS: PCP Family Medicine; Visit Provider Internal Medicine
DX: E87.1 Hypo-osmolality and hyponatremia (principal); E83.42 Hypomagnesemia; I10 Essential (primary) hypertension
CPT/HCPCS: 36415; 80069; 81001; 82570; 83735; 84156

== ENCOUNTER 2024-08-14 10:04 | Outpatient (OUT) | payer MEDICARE, SELFPAY ==
[2024-08-14 10:43] LABS: Basophils Percent Auto 0.4 % (0.2-2.0); Eosinophils Absolute Auto 0.1 10^3/uL (0.0-0.7); Eosinophils Percent Auto 0.9 % (0.9-7.0); Hematocrit 38.5 % (36.0-48.0); Immature Granulocytes Abs Auto 0.02 10^3/uL (0.00-0.03); Immature Granulocytes Pct Auto 0.4 % (0.0-0.5); Lymphocytes Absolute Auto 1.5 10^3/uL (1.2-3.8); Lymphocytes Percent Auto 26.2 % (20.5-60.0); Mean Corpuscular HGB Conc 31.2 g/dL (29.9-35.2); Mean Corpuscular Hemoglobin 30.5 pg (26.7-34.0); Mean Platelet Volume 10.5 fL (9.5-13.5); Monocytes Absolute Auto 0.4 10^3/uL (0.3-0.8); Monocytes Percent Auto 7.1 % (1.7-12.0); Neutrophils Absolute Auto 3.7 10^3/uL (1.4-6.5); Platelet Count 208 10^3/uL (150-450); Red Blood Count 3.93 10^6/uL (4.20-5.40); White Blood Count 5.6 10^3/uL (4.0-11.0)
[2024-08-14 10:55] LABS: Estimated Average Glucose 143 mg/dL; Glycohemoglobin A1C 6.6 % (4.5-6.2)
[2024-08-14 11:25] LABS: Alanine Aminotransferase 20 U/L (14-59); Albumin Globulin Ratio 0.9; Albumin Level 3.2 g/dL (3.4-5.0); Alkaline Phosphatase 92 U/L (46-116); Anion Gap 8.4; Aspartate Amino Transferase 17 U/L (15-37); BUN Creatinine Ratio 9.9; Bilirubin Total 0.3 mg/dL (0.2-1.0); Calcium 8.8 mg/dL (8.5-10.1); Carbon Dioxide 31.8 mmol/L (21.0-32.0); Chloride 98 mmol/L (98-107); Chol HDL Ratio 1.8; Cholesterol 124 mg/dL (<=200); Estimated GFR (African America >60 (>=60 mL/min/1.73m^2); Estimated GFR (Non-African Ame >60 (>=60 mL/min/1.73m^2); Globulin 3.6 g/dL; Glucose 180 mg/dL (74-106); HDL Cholesterol 70 mg/dL (40-60); Magnesium 1.6 mg/dL (1.8-2.4); Potassium 4.2 mmol/L (3.5-5.1); Sodium 134 mmol/L (136-145); Thyroid Stimulating Hormone 0.897 uIU/mL (0.358-3.740); Total Protein 6.8 g/dL (6.4-8.2); Triglycerides 76 mg/dL (<=150); VLDL CHOLESTEROL 15.2 mg/dL
== END 2024-08-14 10:05 | disposition home or self-care (01) ==
LOC: LAB 10:06
PROVIDERS: PCP Family Medicine; Visit Provider Family Medicine
DX: D50.9 Iron deficiency anemia, unspecified (principal); E87.1 Hypo-osmolality and hyponatremia; E83.42 Hypomagnesemia; I10 Essential (primary) hypertension; E78.5 Hyperlipidemia, unspecified; R73.09 Other abnormal glucose; D64.9 Anemia, unspecified
CPT/HCPCS: 36415; 80053; 80061; 82306; 83036; 83540; 83735; 84436; 84443; 84481; 85025

== ENCOUNTER 2024-09-04 10:05 | Outpatient (OUT) | payer MEDICARE, SELFPAY ==
--- OUTSIDE RECORDS SUMMARY | 2023-04-22 05:20 | XMS_ITS ---
Author Organization [facility] Address [address] [place] [address] Care Team Providers Care Patient Navigator Name Role Phone Arnoldo Dougherty Unavailable [phone] REASON FOR VISIT Right hip fx Encounters Encounter Location Date Provider Diagnosis [facility] Office [address] [place] [address] [place] [address] 04/22/2023 Arnoldo Dougherty Displaced fracture of neck of right femur S72.001A Assessments Encounter Date Diagnosis (ICD Code) Assessment Notes Treatment Notes Treatment Clinical Notes Section Notes 04/22/2023 Displaced fracture of neck of right femur (ICD-10 - S72.001A) Plan Of Treatment Pending Test Test Name Order Date SCC- HIP W/ PELVIS, RIGHT [id number] 04/22/19 24 Progress Notes * MEGAN SANCHEZINE LDOB: [birth year] (69 yo F)Acc No.[id number]:04/22/2023 Patient: JACINTO VILLALTA Provider: Martha Dougherty MD :1955 A ge:67 Y S ex:Female Date:04/22/2023 Address:[address] [place], [place] [id number] Subjective: * Chief Complaints: * 1 . Right hip fx. * Medical History: Objective: * Vitals: Assessment: * Assessment: 1. D isplaced fracture of neck of right femur - S72.001A Plan: * Treatment: Forms: * Images: * Electronic signature of Ned Dougherty MD on 09/10/2024 at 11:01 AM EDT Sign off status: Pending * Provider: Martha Dougherty MD Date: 0 04/22/2023 Generated for Bebe ram/Lizzie/Vic on: 0 09/10/2024 11:01 AM EDT
--- OUTSIDE RECORDS SUMMARY | 2024-07-31 09:00 | XMS_ITS ---
Author Organization [facility] [place] Address [address] [place] [address] Care Team Providers Care Hand Deicer Element Winder Name Role Phone Johanne Darrin Primary Care Provider [phone] REASON FOR VISIT refill Medications Medication SIG (Take, Route, Fr equency, Duration) Notes Start Date End Date Status Magnesium Oxide 400 MG TAKE 11 TABLETS B Y MOUTH ONCE A DAY for 30 days Active Encounters Encounter Location Date Provider Diagnosis [facility] [address] [place] [address] 07/31/2024 Darrin Whiting Plan Of Treatment Medication Medication Name Sig Start Date Stop Date Notes Magnesium Oxide 400 MG TAKE 11 TABLETS B Y MOUTH ONCE A DAY for 30 days Progress Notes * Guera CAMPBELL LDOB: [birth year] (69 yo F)Acc No.[id number]:07/31/2024 Patient: Guera VILLALTA Magdalena :1955 A ge:69 Y S ex:Female Address:[address] [place] [address], [phone] * Refills Refill Magnesium Oxide Tablet, 400 MG, 330 Tablet, TAKE 11 TABLETS BY MOUTH ONCE A DAY, 30 days, Refills=0 * true * Date: Generated for Bebe ram/Lizzie/eTransmitting on: 0 09/10/2024 11:01 AM EDT
--- OUTSIDE RECORDS SUMMARY | 2024-08-04 07:15 | XMS_ITS ---
Author Organization The [facility] in [place] Address [address] [place] [address] Care Team Providers Care Master Rigger Name Role Phone Darrin Whiting Primary Care Provider Allergies No Known Allergies REASON FOR VISIT check up- needs magnesium Rx Medications Medication SIG (Take, Route, Frequency, Duration) Notes Start Date End Date Status Fosamax 70 MG 1 tablet 30 minutes before the first food, beverage or medicine of the day with plain water Orally Once Weekly for 30 days Active Folic Acid 1 MG 1 tablet Orally Once a day for 90 days Active Liothyronine Sodium 5 MCG TAKE 2 TABLET BY MOUTH EVERY DAY ON EMPTY STOMACH FOR 30 DAYS for 90 days Active Cyclobenzaprine HCl 10 MG 2 tablets Oral ly at bedtime for 30 days Active Magnesium Oxide 400 MG TAKE 14 TABLETS B Y MOUTH ONCE A DAY for 30 days Active amLODIPine Besylate 10 MG 1 tablet Orall y Once a day for 90 days Active Cetirizine HCl 10 MG TAKE 1 TABLET BY MO UT EVERY DAY for 90 Active CeleXA 40 MG 1 Orally Once a day for 30 days Active Atorvastatin Calcium 20 MG TAKE 1 TABLET BY MOUTH EVERY DAY for 90 days Active Omeprazole 40 MG TAKE 1 CAPSULE BY MO UT EVERY DAY 30 MINUTES BEFORE BREAKFAST IN THE MORNING for 90 Active metFORMIN HCl 850 MG TAKE 1 TABLET BY MO UTH THREE TIMES A DAY for 90 days Active Sodium Chloride 1 GM TAKE 3 TABLETS BY M OUTH THREE TIMES A DAY for 30 Active QUEtiapine Fumarate 100 MG TAKE 1 TABLET BY MOUTH EVERY DAY AT BEDTIME FOR 30 DAYS for 90 Active Pioglitazone HCl 45 MG 1 tablet Orally O nce a day for 90 days Active Social History Tobacco Use: Social History Observation Description Date Details (start date - stop date) Former Smoker NA - 03/07/1980 Tobacco Use/Smoking Question Answer Notes Patient is a former smoker When did you stop smoking? 03/07/1980 How long has it been since you last smoked? > 10 years Vital Signs Blood pressure systolic 128 mm Hg 08/05/19 25 Blood pressure diastolic 62 mm Hg 025 Height 68 in 08/04/2024 Weight 181.4 lbs 08/04/2024 BMI 27.58 kg/m2 08/04/2024 Encounters Encounter Location Date Provider Diagnosis [facility] [address] [place] [address] 08/04/2024 Darrin Whiting Anemia, iron deficie ncy D50.9 ; Hyponatremia E87.1 ; Hypomagnesemia E83.42 ; HTN (hypertension) I10 and Non-insulin dependent type 2 diabetes mellitus E11.9 Assessments Encounter Date Diagnosis (ICD Code) Assessment Notes Treatment Notes Treatment Clinical Notes Section Notes 08/04/2024 Anemia, iron deficiency (ICD-10 - D50.9) 08/04/2024 Hyponatremia (ICD-10 - E87.1) 08/04/2024 Hypomagnesemia (ICD-10 - E83.42) 08/04/2024 HTN (hypertension) (ICD-10 - I10) 08/04/2024 Non-insulin dependent type 2 diabetes mellitus (ICD-10 - E11.9) Plan Of Treatment Medication Medication Name Sig Start Date Stop Date Notes Magnesium Oxide 400 MG TAKE 14 TABLETS B Y MOUTH ONCE A DAY for 30 days Pending Test Test Name Order Date HEMOGLOBIN A1C (GLYCO) 08/04/2024 IRON, TOTAL 08/04/2024 LIPID PANEL (CHOL/TRIG/HDL/LDL) 08/05/19 25 VITAMIN D, 25 LEVEL (TOTAL) 08/04/2024 MAGNESIUM 08/04/2024 THYROID PANEL (T4/TSH/FREE T3) 5 MM screening mammo BI 08/04/2024 CMP (COMP MET CASTRO) w/eGFR CKD-EPI 2024 CBC WITH DIFF 08/04/2024 Progress Notes * Guera CAMPBELL LDOB: [birth year] (69 yo F)Acc No.[id number]:08/04/2024 Progress Note Patient: Guera VILLALTA Provider: Estela Whiting ([facility])MD :1955 A ge:69 Y S ex:Female Date:08/04/2024 Address:[address] [id number] Check In:11:13 AM ESTCheck O ut:11:51 AM EST Subjective: * Chief Complaints: * c heck up- needs magnesium Rx * HPI: D epression Screening: PHQ-9 L ittle interest or pleasure in doing things?Several days F eeling down, depressed, or hopeless S everal days T rouble falling or staying asleep, or sleeping too much S everal days F eeling tired or having little energy S everal days P oor appetite or overeating S everal F eeling bad about yourself or that you are a failure, or have let yourself or your family down S everal T rouble concentrating on things, such as reading the newspaper or watching television S everal M oving or speaking so slowly that other people could have noticed; or the opposite, being so fidgety or restless that you have been moving around a lot more than usual S everal T houghts that you would be better off or of hurting yourself in some way N ot at all T otal Score 8 I nterpretation M ild Depression * ROS: E ENT: hearing changes d enies. v isual changes d enies.?non-healing mouth sores d enies. s wollen glands or neck lumps d enies. h oarseness d enies. s ore throat d enies. d ifficulty swallowing d enies. n ose bleeds d enies. n jose congestion d enies. e ar ache d enies. e ar discharge?denies. r inging in ears d enies. l ight sensitivity d enies. e ye pain d enies. b lurring d enies. e ye irritation d enies. d ouble vision d enies.?vision loss d enies. G eneral/Constitutional: Sweats: D enies. F atigue d enies. S leep problems d enies. A norexia d enies. M alaise d enies. W eight loss d enies.?Fatigue or Weakness d enies. F ever or Chills d enies. C ardiovascular: Shortness of Breath w/lying flat d enies. L ightheadedness/dizziness d enies. C hest tightness/ heavy pressure d enies. S welling of legs, ankles, or feet d enies. W aking up with shortness of breath d enies. C hest pain denies. P alpitations d enies. W eight gain d enies. R espiratory: Chronic or frequent cough d enies. C oughing up blood?denies. D ifficulty breathing d enies. P roductive cough d enies. S noring?denies. S hortness of breath that awakens from sleep (PND) d enies. C hest pain d enies. S putum production d enies. W heezing d enies. M usculoskeletal: Joint pain d enies. J oint Fluid d enies. B ack pain d enies. K nee pain d enies. N wendy pain d enies. J oint Stiffness d enies. M uscle cramps d enies. W eakness of muscles d enies. A rthritis d enies. M uscle aches d enies. P ain in shoulder(s) d enies. S wollen joints d enies. * Active Problem List E87.1 Hyponatremia Modified On:03/06/2023/U Status:confirmed M81.0 Osteoporosis Modified On:08/14/2023/U Status:confirmed D50.9 Iron deficiency anem ia Modified On:09/18/2022/U Status:confirmed D50.9 Anemia, iron deficie ncy Modified On:01/04/2023U Status:confirmed E78.00 Pure hypercholestero lemia, unspecified Modified On:11/01/2022/U Status:confirmed I10 BP (high blood press ure) Modified On:01/04/2023 Status:confirmed E44.1 Mild protein malnutr ition Modified On:01/04/2023 Status:confirmed E83.51 Hypocalcemia Modified On:01/04/2023 Status:confirmed F10.99 Alcohol use Modified On:01/04/2023 Status:confirmed R60.9 Edema Modified On:02/26/2023 Status:confirmed S72.90XA Femur fracture Modified On:03/06/2023 Status:confirmed R09.02 Hypoxia Modified On:03/06/2023 Status:confirmed E11.9 Non-insulin dependen t type 2 diabetes mellitus Modified On:03/06/2023 Status:confirmed I10 HTN (hypertension) Modified On:03/06/2023 Status:confirmed E83.42 Hypomagnesemia Modified On:03/27/2023 Status:confirmed R89.9 Unspecified abnormal finding in specimens from other organs, systems and tissues Modified On:03/22/2023 Status:confirmed M25.559 Hip pain Modified On:04/12/2023 Status:confirmed M54.89 Other dorsalgia Modified On:07/03/2023 Status:confirmed M81.0 Age-related osteopor osis without current pathological fracture Modified On:07/30/2023 Status:confirmed E03.9 Hypothyroidism Modified On:09/06/2023 Status:confirmed K21.9 GERD (gastroesophage al reflux disease) Modified On:01/14/2024 Status:confirmed * Medical History: * Surgical History: k yphoplasty L4 03/2020EGD 06/2022OR humerus fracture ight Hip Surgery 12/2022 * Hospitalization/Major Diagno stic Procedure: P RES yncopal episode 06/2020 * Family History: F ather: . M other: . B shaeer(s): alive, alcoholism. S ister(s): alive, depression, breast cancer. D radhika(s): alive. 3 brother(s) , 3 sister(s) . 2 daughter(s) - healthy. . * Social History: T obacco Use: T obacco Use/Smoking P atient is a f ormer smoker W hen did you stop smoking? 05/07/1979 H ow long has it been since you last smoked??> 10 years * Medications: T akingamLODIPine Besylate 10 MG Tablet 1 tablet Orally Once a day Atorvastatin Calcium 20 MG Tablet TAKE 1 TABLET BY MOUTH EVERY DAY CeleXA(Citalopram Hydrobromide) 40 MG Tablet 1 Orally Once a day Cetirizine HCl 10 MG Tablet TAKE 1 TABLET BY MOUTH EVERY DAY Cyclobenzaprine HCl 10 MG Tablet 2 tablets Orally at bedtime Folic Acid 1 MG Tablet 1 tablet Orally Once a day Fosamax(Alendronate Sodium) 70 MG Tablet 1 tablet 30 minutes before the first food, beverage or medicine of the day with plain water Orally Once Weekly Liothyronine Sodium 5 MCG Tablet TAKE 2 TABLET BY MOUTH EVERY DAY ON EMPTY STOMACH FOR 30 DAYS Magnesium Oxide 400 MG Tablet TAKE 11 TABLETS BY MOUTH ONCE A DAY metFORMIN HCl 850 MG Tablet TAKE 1 TABLET BY MOUTH THREE TIMES A DAY Omeprazole 40 MG Capsule Delayed Release TAKE 1 CAPSULE BY MOUTH EVERY DAY 30 MINUTES BEFORE BREAKFAST IN THE MORNING Pioglitazone HCl 45 MG Tablet 1 tablet Orally Once a day QUEtiapine Fumarate 100 MG Tablet TAKE 1 TABLET BY MOUTH EVERY DAY AT BEDTIME FOR 30 DAYS Sodium Chloride 1 GM Tablet TAKE 3 TABLETS BY MOUTH THREE TIMES A DAY Taking amLODIPine Besylate 10 MG Tablet 1 tablet Orally Once a day Taking Atorvastatin Calcium 20 MG Tablet TAKE 1 TABLET BY MOUTH EVERY DAY Taking CeleXA(Citalopram Hydrobromide) 40 MG Tablet 1 Orally Once a day Taking Cetirizine HCl 10 MG Tablet TAKE 1 TABLET BY MOUTH EVERY DAY Taking Cyclobenzaprine HCl 10 MG Tablet 2 tablets Orally at bedtime Taking Folic Acid 1 MG Tablet 1 tablet Orally Once a day Taking Fosamax(Alendronate Sodium) 70 MG Tablet 1 tablet 30 minutes before the first food, beverage or medicine of the day with plain water Orally Once Weekly Taking Liothyronine Sodium 5 MCG Tablet TAKE 2 TABLET BY MOUTH EVERY DAY ON EMPTY STOMACH FOR 30 DAYS Taking Magnesium Oxide 400 MG Tablet TAKE 11 TABLETS BY MOUTH ONCE A DAY Taking metFORMIN HCl 850 MG Tablet TAKE 1 TABLET BY MOUTH THREE TIMES A DAY Taking Omeprazole 40 MG Capsule Delayed Release TAKE 1 CAPSULE BY MOUTH EVERY DAY 30 MINUTES BEFORE BREAKFAST IN THE MORNING Taking Pioglitazone HCl 45 MG Tablet 1 tablet Orally Once a day Taking QUEtiapine Fumarate 100 MG Tablet TAKE 1 TABLET BY MOUTH EVERY DAY AT BEDTIME FOR 30 DAYS Taking Sodium Chloride 1 GM Tablet TAKE 3 TABLETS BY MOUTH THREE TIMES A DAY DiscontinuedIrbesartan 300 MG Tablet 1 tablet Orally Once a day Medication List reviewed and reconciled with the patientDiscontinued Irbesartan 300 MG Tablet 1 tablet Orally Once a day Medication List reviewed and reconciled with the patient * Allergies: N .K.D.A.no[Allergies Verified] Objective: * Vitals: W t:181.4lbs, Ht: 68 in, BP:128/62mm Hg, BMI:27.58Index, Ht-cm: 172.72 cm, Wt-k.28 kg. * Examination: P hysical Exam: GENERAL: w ell developed, well nourished, in no acute distress. HEAD: n ormocephalic/atraumatic. EYES: p upils equal, round and reactive to light, conjunctivae and sclerae normal. EARS: n o deformity or lesion of external ear, canals and TM appear normal bilaterally, TM's intact, not inflamed with normal light reflex, hearing grossly normal to conversational speech. NOSE: n o deformity, discharge, inflammation, or lesions.? MOUTH: m ucous membranes moist, normal oropharynx and posterior pharynx without lesions or exudates, tongue normal, dentition normal. NECK: n wendy supple, no masses or palpable cervical nodes, trachea midline, thyroid without nodules, masses, tenderness, or enlargement. CHEST: n o chest wall deformity, no chest wall tenderness.? LUNGS: n ormal respiratory effort and clear to auscultation, no wheezes, rales, or rhonchi, good air exchange. CARDIO: r egular rate and rhythm, normal S1 and S2, nor murmur, rub, or gallop. PULSES: n ormal capillary refill. ABDOMEN: s oft, non-distended, non-tender, no masses. MUSCULOSKELETAL: n o deformity or scoliosis noted, normal range of motion, joints normal, no erythema, edema, effusion, or ecchymosis. EXTREMITY: n o clubbing, cyanosis, edema, or deformity with normal ROM in both upper and lower bilateral extremities. NEUROLOGIC: g rossly normal. SKIN: n o rashes, ulcerations, or suspicious lesions. LYMPH NODES: n o cervical adenopathy, nodes normal. MENTAL STATUS: a lert and oriented x3, normal mood and affect. Assessment: * Assessment: 1. A nemia, iron deficiency - D50.9 (Primary) 2 . H yponatremia - E87.1? 3. H ypomagnesemia - E83.42 4 . H TN (hypertension) - I10 5 . N on-insulin dependent type 2 diabetes mellitus - E11.9 Plan: * Treatment: 2. H yponatremia L AB: HEMOGLOBIN A1C (GLYCO) L AB: IRON, TOTAL L AB: LIPID PANEL (CHOL/TRIG/HDL/LDL) L AB: VITAMIN D, 25 LEVEL (TOTAL) L AB: THYROID PANEL (T4/TSH/FREE T3) L AB: CMP (COMP MET CASTRO) w/eGFR CKD-EPI L AB: CBC WITH DIFF 3. H ypomagnesemia Refill Magnesium Oxide Tablet, 400 MG, TAKE 14 TABLETS BY MOUTH ONCE A DAY, 30 days, 420, Refills 11. L AB: HEMOGLOBIN A1C (GLYCO) L AB: IRON, TOTAL L AB: LIPID PANEL (CHOL/TRIG/HDL/LDL) L AB: VITAMIN D, 25 LEVEL (TOTAL) L AB: THYROID PANEL (T4/TSH/FREE T3) L AB: CMP (COMP MET CASTRO) w/eGFR CKD-EPI L AB: CBC WITH DIFF 4. H TN (hypertension) L AB: HEMOGLOBIN A1C (GLYCO) L AB: IRON, TOTAL L AB: LIPID PANEL (CHOL/TRIG/HDL/LDL) L AB: VITAMIN D, 25 LEVEL (TOTAL) L AB: THYROID PANEL (T4/TSH/FREE T3) L AB: CMP (COMP MET CASTRO) w/eGFR CKD-EPI L AB: CBC WITH DIFF 5. N on-insulin dependent type 2 diabetes mellitus L AB: HEMOGLOBIN A1C (GLYCO) L AB: IRON, TOTAL L AB: LIPID PANEL (CHOL/TRIG/HDL/LDL) L AB: VITAMIN D, 25 LEVEL (TOTAL) L AB: THYROID PANEL (T4/TSH/FREE T3) L AB: CMP (COMP MET CASTRO) w/eGFR CKD-EPI L AB: CBC WITH DIFF * Procedure Codes: * * Sign off status: Completed Visit Status: C HK (Check Out) true * Provider: Estela Whiting ([facility])MD Date: 0 08/04/2024 Generated for Caroli yo/Lizzie/Joselynitting on: 0 09/10/2024 11:01 AM EDT History and Physical Notes * HPI (History of Present Illness) Category Sub-Category Detail Notes Category Not es Depression Screening PHQ-9 Little inte rest or pleasure in doing things: Several days Feeling down, depressed, or hopeless: Se veral days Trouble falling or staying asleep, or sl eeping too much: Several days Feeling tired or having little energy: S everal days Poor appetite or overeating: Several day s Feeling bad about yourself o r that you are a failure, or have let yourself or your family down: Several days Trouble concentrating on thi ngs, such as reading the newspaper or watching television: Several days Moving or speaking so slowly that other people could have noticed; or the opposite, being so fidgety or restless that you have been moving around a lot more than usual: Several days Thoughts that you would be b shyann off or of hurting yourself in some way: Not at all Total Score: 8 Interpretation: Mild Depression Examination Category Sub-Category Detail Notes Category Not es Physical Exam GENERAL: well developed, well nourished, in no acute distress HEAD: normocephalic/atraum atic EYES: pupils equal, round and reactive to light, conjunctivae and sclerae normal EARS: no deformity or lesi on of external ear, canals and TM appear normal bilaterally, TM's intact, not inflamed with normal light reflex, hearing grossly normal to conversational speech NOSE: no deformity, discha rge, inflammation, or lesions MOUTH: mucous membranes [address] st, normal oropharynx and posterior pharynx without lesions or exudates, tongue normal, dentition normal NECK: neck supple, no mass es or palpable cervical nodes, trachea midline, thyroid without nodules, masses, tenderness, or enlargement CHEST: no chest wall deform ity, no chest wall tenderness LUNGS: normal respiratory e ffort and clear to auscultation, no wheezes, rales, or rhonchi, good air exchange CARDIO: regular rate and rhy thm, normal S1 and S2, nor murmur, rub, or gallop PULSES: normal capillary ref ill ABDOMEN: soft, non-distended, non-tender, no masses RECTAL: MUSCULOSKELETAL: no deformity or scol iosis noted, normal range of motion, joints normal, no erythema, edema, effusion, or ecchymosis EXTREMITY: no clubbing, cyanosi s, edema, or deformity with normal ROM in both upper and lower bilateral extremities NEUROLOGIC: grossly normal SKIN: no rashes, ulceratio ns, or suspicious lesions LYMPH NODES: no cervical adenopat hy, nodes normal MENTAL STATUS: alert and oriented x 3, normal mood and affect
--- OUTSIDE RECORDS SUMMARY | 2024-08-14 08:33 | XMS_ITS ---
Author Organization [facility] in [place] Address [address] [place] [address] Care Team Providers Care Vp Construction Name Role Phone Darrin Whiting Primary Care Provider REASON FOR VISIT labs Encounters Encounter Location Date Provider Diagnosis [facility] [address] [place] [address] 08/14/2024 Darrin Whiting Plan Of Treatment No Information Progress Notes * Guera CAMPBELL LDOB: [birth year] (69 yo F)Acc No.[id number]:08/14/2024 Patient: Fiona ZHENG Guera Nichols :1955 A ge:69 Y S ex:Female Address:[address] [place] [address], [phone] * true * Date: Generated for Caroli oy/Lizzie/eTransmitting on: 0 09/10/2024 11:00 AM EDT
[2024-09-04 10:27] LABS: Hematocrit 41.7 % (36.0-48.0); Hemoglobin 13.5 g/dL (12.0-16.0); Mean Corpuscular HGB Conc 32.4 g/dL (29.9-35.2); Mean Corpuscular Hemoglobin 30.8 pg (26.7-34.0); Mean Corpuscular Volume 95.2 fL (81.0-99.0); Mean Platelet Volume 10.5 fL (9.5-13.5); Platelet Count 218 10^3/uL (150-450); Red Blood Count 4.38 10^6/uL (4.20-5.40); Red Cell Distribution Width 13.8 % (11.0-15.0); White Blood Count 6.2 10^3/uL (4.0-11.0)
[2024-09-04 10:43] LABS: Creatinine Urine Random 62.62 mg/dL (20.00-300.00); Protein Creatinine Ratio Urine 0.43
[2024-09-04 11:02] LABS: Albumin Level 3.7 g/dL (3.4-5.0); Anion Gap 14.3; BUN Creatinine Ratio 17.7; Calcium 9.4 mg/dL (8.5-10.1); Carbon Dioxide 29.2 mmol/L (21.0-32.0); Chloride 100 mmol/L (98-107); Estimated GFR (African America >60 (>=60 mL/min/1.73m^2); Estimated GFR (Non-African Ame >60 (>=60 mL/min/1.73m^2); Glucose 153 mg/dL (74-106); Magnesium 1.5 mg/dL (1.8-2.4); Potassium 4.5 mmol/L (3.5-5.1); Sodium 139 mmol/L (136-145); Uric Acid 4.3 mg/dL (2.6-6.0)
[2024-09-04 11:09] LABS: Phosphorus 1.1 mg/dL (2.6-4.7)
[2024-09-04 12:24] LABS: Bilirubin Urine NEGATIVE (NEGATIVE); Blood Urine NEGATIVE (NEGATIVE); Clarity Urine CLEAR (CLEAR); Color Urine LT. YELLOW (YELLOW); Glucose Urine UA NEGATIVE (NEGATIVE); Ketones Urine NEGATIVE (NEGATIVE); Leukocyte Esterase Urine SMALL (NEGATIVE); Nitrite Urine NEGATIVE (NEGATIVE); Protein Urine NEGATIVE (NEG/TRACE); Specific Gravity Urine 1.015 (1.005-1.025); Urobilinogen Urine 0.2 EU/dL (0.2-1.0)
[2024-09-04 12:44] LABS: Bacteria Urine LARGE #/HPF (NONE SEEN); Cast Seen? NONE SEEN #/LPF (NONE SEEN); Crystals Seen? None Seen #/HPF (None Seen); Mucus Urine NONE SEEN (NONE SEEN); RBC Urine 0-2 #/HPF (0-2); Squamous Epithelial Cell Urine FEW #/LPF (NONE/RARE); WBC Urine 0-2 #/HPF (NONE SEEN)
--- OUTSIDE RECORDS SUMMARY | 2024-09-10 11:01 | XMS_ITS | Patient Health Record ---
Author Organization [facility] in [place] Address [address] [place] [address] Care Team Providers Care Road Patcher Name Role Phone Darrin Bernstein Primary Care Provider ASH BERNSTEIN Unavailable [phone] Allergies No Known Allergies Results Component Value Reference Range Notes FREE T4 Reviewed date:10/17/2023 08:38:52 PM Interpretation: Performing Lab: Notes/Report: [facility] , Free T4 0.72 0.76-1.46 ng/dL Performing Lab: see note ML - [facility] LB MAGNESIUM Reviewed date:03/22/2024 05:09:12 PM Interpretation: Performing Lab: Notes/Report: [facility] , Magnesium 1.5 1.8-2.4 mg/dL Performing Lab: see note ML - [facility] LB RENAL FUNCTION PANEL Reviewed date:03/22/2024 05:09:12 PM Interpretation: Performing Lab: Notes/Report: [facility] , Sodium 135 136-145 mmol/L Potassium 4.4 [...] g/dL Performing Lab: see note ML - [facility] LB UA RANDOM W or MICROSCOPIC Reviewed date:03/22/2024 05:09:12 PM Interpretation: Performing Lab: Notes/Report: [facility] , Color Urine LT. YELLOW YELLOW Clarity Urine CLEAR CLEAR Specific [place] Urine 1.015 1.005-1.025 pH Urine 7.5 5.0-9.0 [...] NONE SEEN #/LPF Performing Lab: see note ML - [facility] LB CBC AUTO DIFF Reviewed date:08/14/2024 12:34:49 PM Interpretation: Performing Lab: Notes/Report: [facility] , White Blood Count 5.6 4.0-11.0 10 [...] 0.00-0.03 10 3/uL Performing Lab: see note ML - [facility] FREE T3 Reviewed date:08/14/2024 12:34:49 PM Interpretation: Performing Lab: Notes/Report: [facility] , Free T3 2.20 2.18-3.98 pg/mL Performing Lab: see note ML - [facility] GLYCOHEMOGLOBIN A1C Reviewed date:08/14/2024 12:34:49 PM Interpretation: Performing Lab: Notes/Report: [facility] , Glycohemoglobin A1C 6.6 4.5-6.2 % ADA RECOMMENDED LIMIT 4.0 - 6.0 ADA THERAPEUTIC TARGET < 7.0 ACTION SUGGESTED > 7.0 Estimated Average Glucose 143 Performing Lab: see note - [facility] LIPID PROFILE Reviewed date:08/14/2024 12:34:49 PM Interpretation: Performing Lab: Notes/Report: [facility] , Triglycerides 76 <=150 mg/dL Cholesterol 124 [...] RISK Performing Lab: see note ML - [facility] LB MAGNESIUM Reviewed date:08/14/2024 12:34:49 PM Interpretation: Performing Lab: Notes/Report: [facility] , Magnesium 1.6 1.8-2.4 mg/dL Performing Lab: see note - [facility] LB PROF 14(COMP METB) Reviewed date:08/14/2024 12:34:49 PM Interpretation: Performing Lab: Notes/Report: [facility] , Sodium 134 136-145 mmol/L Potassium 4.2 [...] 0.9 Performing Lab: see note ML - [facility] LB T4 Reviewed date:08/14/2024 12:34:49 PM Interpretation: Performing Lab: Notes/Report: [facility] , T4 Thyroxine 4.00 4.80-13.90 ug/dL Performing Lab: see note ML - [facility] LB TSH Reviewed date:08/14/2024 12:34:49 PM Interpretation: Performing Lab: Notes/Report: [facility] , Thyroid Stimulating Hormone 0.897 0.358-3.740 u IU/mL Performing Lab: see note - [facility] LB VITAMIN D 25 [place] Reviewed date:08/14/2024 12:34:49 PM Interpretation: Performing Lab: Notes/Report: [facility] , Vitamin D 26.4 <20 ng/mL Vit D deficient 20-<30 ng/mL Vit D insufficient 30-100 ng/mL Vit D sufficient >100 ng/mL Potential Toxicity Performing Lab: see note ML - [facility] LB MAGNESIUM Reviewed date:09/06/2024 04:05:39 PM Interpretation: Performing Lab: Notes/Report: [facility] , Magnesium 1.5 1.8-2.4 mg/dL Performing Lab: see note ML - [facility] LB RENAL FUNCTION PANEL Reviewed date:09/06/2024 04:05:39 PM Interpretation: Performing Lab: Notes/Report: [facility] , Sodium 139 136-145 mmol/L Potassium 4.5 [...] g/dL Performing Lab: see note ML - [facility] LB URIC ACID SERUM Reviewed date:09/06/2024 04:05:39 PM Interpretation: Performing Lab: Notes/Report: [facility] , Uric Acid 4.3 2.6-6.0 mg/dL Performing Lab: see note ML - [facility] LB URINE T PROTEIN CREAT RATIO Reviewed date:09/06/2024 04:05:39 PM Interpretation: Performing Lab: Notes/Report: [facility] , Total Protein Urine Random 27.0 <=11.9 mg/dL Creatinine Urine Random 62.62 20.00-300.00 mg/d L Protein Creatinine Ratio Urine 0.43 Performing Lab: see note ML - [facility] CBC no Diff (Hemogram) Reviewed date:09/06/2024 04:05:39 PM Interpretation: Performing Lab: Notes/Report: [facility] , White Blood Count 6.2 4.0-11.0 10 [...] 10.5 9.5-13.5 fL Performing Lab: see note - [facility] LB UA RANDOM W or MICROSCOPIC Reviewed date:09/06/2024 04:05:39 PM Interpretation: Performing Lab: Notes/Report: [facility] , Color Urine LT. YELLOW YELLOW Clarity Urine CLEAR CLEAR Specific [place] Urine 1.015 1.005-1.025 pH Urine 8.0 5.0-9.0 Protein Urine NEGATIVE NEG/TRACE mg/dL Glucose Urine UA NEGATIVE NEGATIVE mg/dL Bilirubin Urine NEGATIVE NEGATIVE Ketones Urine NEGATIVE NEGATIVE mg/dL Blood Urine NEGATIVE NEGATIVE Nitrite Urine NEGATIVE NEGATIVE Urobilinogen Urine 0.2 0.2-1.0 EU/dL Leukocyte Esterase Urine SMALL NEGATIVE WBC Urine 0-2 NONE SEEN #/HPF RBC Urine 0-2 0-2 #/HPF Bacteria Urine LARGE NONE SEEN #/HPF Mucus Urine NONE SEEN NONE SEEN Squamous Epithelial Cell Urine FEW NONE/RARE #/LPF Crystals Seen? None Seen None Seen #/HPF Cast Seen? NONE SEEN NONE SEEN #/LPF Performing Lab: see note - [facility] LB IRON Reviewed date:08/14/2024 12:34:49 PM Interpretation: Performing Lab: Notes/Report: [facility] , Iron 67.0 50.0-170.0 ug/dL Performing Lab: see note - [facility] LB URINE T PROTEIN CREAT RATIO Reviewed date:03/22/2024 05:09:12 PM Interpretation: Performing Lab: Notes/Report: [facility] , Total Protein Urine Random 8.3 <=11.9 mg/dL Creatinine Urine Random 33.30 20.00-300.00 mg/d L Protein Creatinine Ratio Urine 0.25 Performing Lab: see note ML - [facility] LB Magnesium, Urine Reviewed date:01/15/2024 07:59:45 PM Interpretation: Performing Lab: Notes/Report: [facility] , Magnesium, U 7.1 Not Estab. mg/dL Magnesium,Urine 24hr 131.4 12.0-293.0 mg/24 hr Performed at: [facility] [address] [id number] Sheriff'S Sergeant: Lex Beltran PhD, Phone: [phone] Performing Lab: see note [facility] LB RENAL FUNCTION PANEL Reviewed date:01/09/2024 05:45:31 PM Interpretation: Performing Lab: Notes/Report: [facility] , Sodium 132 136-145 mmol/L Potassium 4.8 [...] g/dL Performing Lab: see note ML - [facility] LB MAGNESIUM Reviewed date:01/09/2024 05:45:31 PM Interpretation: Performing Lab: Notes/Report: [facility] , Magnesium 1.5 1.8-2.4 mg/dL Performing Lab: see note ML - [facility] LB PROF CHEM 8 (BAS METB) Reviewed date:12/19/2023 09:19:05 PM Interpretation: Performing Lab: Notes/Report: [facility] , Sodium 137 136-145 mmol/L Potassium 5.1 3.5-5.1 mmol/L Chloride 99 98-107 mmol/L Carbon Dioxide 30.6 21.0-32.0 mmol/L Anion Gap 12.5 Glucose 158 74-106 mg/dL Blood Urea Nitrogen 8.0 7.0-18.0 mg/dL Creatinine 0.99 0.55-1.02 mg/dL Estimated GFR ( Brenda >60 >=60 Estimated GFR (Non- Francheska 56 >=60 BUN Creatinine Ratio 8.1 Calcium 9.3 8.5-10.1 mg/dL Performing Lab: see note ML - [facility] PHOSPHORUS Reviewed date:12/19/2023 09:19:05 PM Interpretation: Performing Lab: Notes/Report: [facility] , Phosphorus 3.4 2.6-4.7 mg/dL Performing Lab: see note ML - [facility] MAGNESIUM Reviewed date:12/19/2023 09:19:05 PM Interpretation: Performing Lab: Notes/Report: [facility] , Magnesium 1.4 1.8-2.4 mg/dL Performing Lab: see note ML - [facility] PROF CHEM 8 (BAS METB) Reviewed date:12/12/2023 06:04:29 PM Interpretation: Performing Lab: Notes/Report: [facility] , Sodium 137 136-145 mmol/L Potassium 4.4 3.5-5.1 mmol/L Chloride 100 98-107 mmol/L Carbon Dioxide 28.7 21.0-32.0 mmol/L Anion Gap 12.7 Glucose 155 74-106 mg/dL Blood Urea Nitrogen 9.0 7.0-18.0 mg/dL Creatinine 0.85 0.55-1.02 mg/dL Estimated GFR ( Brenda >60 >=60 Estimated GFR (Non- Francheska >60 >=60 BUN Creatinine Ratio 10.6 Calcium 8.9 8.5-10.1 mg/dL Performing Lab: see note ML - [facility] PHOSPHORUS Reviewed date:12/12/2023 06:04:29 PM Interpretation: Performing Lab: Notes/Report: [facility] , Phosphorus 3.0 2.6-4.7 mg/dL Performing Lab: see note ML - [facility] LB MAGNESIUM Reviewed date:12/12/2023 06:04:29 PM Interpretation: Performing Lab: Notes/Report: [facility] , Magnesium 1.5 1.8-2.4 mg/dL Performing Lab: see note ML - [facility] LB TSH Reviewed date:10/17/2023 08:38:52 PM Interpretation: Performing Lab: Notes/Report: [facility] , Thyroid Stimulating Hormone 1.739 0.358-3.740 u IU/mL Performing Lab: see note ML - [facility] LB PROF CHEM 8 (BAS METB) Reviewed date:10/17/2023 08:38:52 PM Interpretation: Performing Lab: Notes/Report: [facility] , Sodium 136 136-145 mmol/L Potassium 4.7 3.5-5.1 mmol/L Chloride 100 98-107 mmol/L Carbon Dioxide 30.2 21.0-32.0 mmol/L Anion Gap 10.5 Glucose 160 74-106 mg/dL Blood Urea Nitrogen 10.0 7.0-18.0 mg/dL Creatinine 0.87 0.55-1.02 mg/dL Estimated GFR ( Brenda >60 >=60 Estimated GFR (Non- Francheska >60 >=60 BUN Creatinine Ratio 11.5 Calcium 8.6 8.5-10.1 mg/dL Performing Lab: see note ML - [facility] LB MAGNESIUM Reviewed date:10/17/2023 08:38:52 PM Interpretation: Performing Lab: Notes/Report: [facility] , Magnesium 2.1 1.8-2.4 mg/dL Performing Lab: see note ML - [facility] LB FREE T3 Reviewed date:10/17/2023 08:38:52 PM Interpretation: Performing Lab: Notes/Report: [facility] , Free T3 2.56 2.18-3.98 pg/mL Performing Lab: see note ML - [facility] LB Reason For Referral Diagnosis 1 Magnesium deficiency (E61.2) Referral Organization [facility] Medicine Referring Provider First Name Darrin Referring Provider Last Name Amandeep Referring Provider Speciality Family [facility] yaronne Referred Provider Teri Salgado Referred Provider Specialty [...] FOR 30 DAYS for 90 days Active QUEtiapine Fumarate 100 MG TAKE 1 TABLET BY MOUTH EVERY DAY AT BEDTIME FOR 30 DAYS for 90 days Active Cetirizine HCl 10 MG TAKE 1 TABLET BY MO UTH EVERY DAY for 90 Active Sodium Chloride 1 GM TAKE 3 TABLETS BY M OUTH THREE TIMES A DAY for 30 Active Atorvastatin Calcium 20 MG TAKE 1 TABLET BY MOUTH EVERY DAY for 90 days Active Pioglitazone HCl 45 MG 1 tablet Orally O nce a day for 90 days Active Immunizations Vaccine Route Administration Date Status Comme [facility] [employer] Syringe Pre -Filled 30 mcg/0.3 mL Unknown 03/23/2023 Administered Flu, Fluad (44298) 65 yrs + High Dose Seasonal (5861-1959) Unknown 02/25/2022 Administered Flu, Fluad (13940) 65 yrs + Trivalent (0149-7387) Unknown 02/16/2020 Administered Flu, Fluad (43967) 65 yrs+, single-dose syringe (8454-6273) Unknown 01/26/2021 Administered Flu, Fluzone High-Dose (2022 -2023) (08504) 65 yrs+ Unknown 03/22/2022 Administered Pneumococcal (Prevnar [...] Problem Status W/U Status Risk Notes Problem 47273235 Age-related osteoporosis without current pathological fracture (M81.0) Active confirmed Problem 541190156 Hypomagnesemia (E83.42) Active confirmed Problem Hypocalcemia (5851475) Hypocalcemia (E83.51) Active confirmed Problem Backache (761485637) Other dorsalgia (M54.89) Active confirmed Problem 228987545 Unspecified abnormal finding in specimens from other organs, systems and tissues (R89.9) Active confirmed Problem Gastroesophageal reflux disease (256815652) GERD (gastroesophageal reflux disease) (K21.9) Active confirmed Problem Hypothyroidism (27121851) Hypothyroidism (E03.9) Active confirmed Problem Hypertension (73316446) HTN (hypertension) (I10) Active confirmed Problem Edema (58338277) Edema (R60.9) Active confirmed Problem Hip pain (93478064) Hip pain (M25.559) Active confirmed Problem Hyponatremia (62551948) Hyponatremia (E87.1) Active confirmed Problem Closed fracture of femur (36287037) Femur fracture (S72.90XA) Active confirmed Problem Osteoporosis (60102432) Osteoporosis (M81.0) Active confirmed Problem Iron deficiency anemia (00545597) Iron deficiency anemia (D50.9) Active confirmed Problem Type II diabetes mellitus without complication (014023684) Non-insulin dependent type 2 diabetes mellitus (E11.9) Active confirmed Problem Hypoxia (858767638) Hypoxia (R09.02) Active con firmed Problem Iron deficiency anemia (05297067) Anemia, iron deficiency (D50.9) Active confirmed Problem Current drinker of alcohol (469650) Alcohol use (F10.99) Active confirmed Problem Essential hypertension (55028564) BP (high blood pressure) (I10) Active confirmed Problem 86167119 Pure hypercholesterole karissa, unspecified (E78.00) Active confirmed Problem Malnutrition of mild degree (Horowitz: 75% to less than 90% of standard weight) (76882279) Mild protein malnutrition (E44.1) Active confirmed Vital Signs Blood pressure diastolic 62 mm Hg 08/04/2024 Height 68 in 08/04/2024 Blood pressure systolic 128 mm Hg 08/04/2024 Weight 181.4 lbs 08/04/2024 BMI 27.58 kg/m2 08/04/2024 Encounters Encounter Location Date Provider Diagnosis [address] [place] [address] 08/04/2024 Darrin Bernstein Anemia, iron deficie ncy D50.9 ; Hyponatremia E87.1 ; Hypomagnesemia E83.42 ; HTN (hypertension) I10 and Non-insulin dependent type 2 diabetes mellitus E11.9 [facility] [address] [facility] [place] [address] 04/22/2024 Darrin Bernstein [facility] [address] [facility] [place] [address] 07/31/2024 Darrin [facility] [address] [place] [address] 08/14/2024 Darrin [facility] [address] [place] [address] 10/29/2023 Darrin [facility] [address] [facility] [place] [address] 11/11/2023 Darrin [facility] [address] [facility] [place] [address] 12/11/2023 Darrin Bernstein Abnormal blood chemi stry R79.9 [facility] [address] [facility] [place] [address] 12/19/2023 Darrin Bernstein Magnesium deficiency E61.2 [facility] [address] [facility] [place] [address] 12/25/2023 Darrin [facility] [address] [facility] [place] [address] 01/09/2024 Darrin Bernstein [facility] [address] [facility] [place] [address] 09/16/2023 ASH AMANDEEP [facility] [address] [facility] [place] [address] 10/17/2023 Darrin Bernstein Assessments Encounter Date Diagnosis (ICD Code) Assessment Notes Treatment Notes Treatment Clinical Notes Section Notes 08/04/2024 Anemia, iron deficiency (ICD-10 - D50.9) 08/04/2024 Hyponatremia (ICD-10 - E87.1) 12/11/2023 Abnormal blood chemistry (ICD-10 - R79.9) [...] LIPID PROFILE 11/01/2022 MAGNESIUM 03/25/2023 MAGNESIUM 08/04/2024 PHOSPHORUS 12/11/2023 XR DEXA BONE DENSITY 07/30/2023 THYROID PANEL (T4/TSH/FREE T3) 5 MM screening mammo BI 08/04/2024 CMP (COMP MET CASTRO) w/eGFR CKD-EPI 2024 CBC WITH DIFF 08/04/2024 Insurance Providers Payer Name Payer Address Payer Phone Subscriber Number Group Number Insured Name Patient Relationship to Insured Coverage Start Date Coverage End Date MEDICARE RAILROAD [address] [address] [place], [place] [id number] [phone] [id number] AdrianGuera dixon Self - patient is the insured 0 [facility] [address] [place] [address] [id number] Guera Campbell Self - patient is the insured 0 Medications Administered Medication Instructions Date of Administration Dosage Notes Kenalog-40 04/12/2023 120 mg 120 Ketorolac Tromethamine 04/12/2023 60 mg 60 Medical (General) History Medical History History ICD Code Iron deficiency anemia D50.9 Hyponatremia E87.1 Osteoporosis M81.0 Surgical History Surgery Date(Month/Year) kyphoplasty L4 03/2020 OR humerus fracture 02/2022 Right Hip Surgery 12/2022 EGD 06/2022 Hospitalization History Reason Date(Month/Year) syncopal episode 06/2020 PRES 03/2022
--- OUTSIDE RECORDS SUMMARY | 2024-09-10 11:01 | XMS_ITS | Clinical Summary ---
Author Organization [facility] Address [address] [place] [address] Phone Care Team Providers Care Railway Signal Operator Name Role Phone Unavailable Primary Care Provider [...] this topic Meningococcal Vaccine Aged Out No jraeth jamshid eligible based on patient's age to complete this topic Rotavirus Vaccines Aged Out No longer eligible based on patient's age to complete this topic
--- OUTSIDE RECORDS SUMMARY | 2024-09-10 11:02 | XMS_ITS | Patient Health Record ---
Author Organization [facility] Address [address] [place] [address] Care Team Providers Care Manager Control Name Role Phone Arnoldo Dougherty Unavailable [phone] Reason For Referral No Information Problems Problem Type SNOMED Code ICD Code Onset Dates Problem Status W/U Status Risk Notes Problem 576707750198525 Right hip pain (M25.551) Active confirmed Problem [id number] Fracture of unspecified part of neck of right femur, initial encounter for closed fracture (S72.001A) Active confirmed Plan Of Treatment Pending Test Test Name Order Date SCC- HIP W/ PELVIS, RIGHT [id number] 02/12/20 SCC- HIP W/ PELVIS, RIGHT [id number] 03/11/20 Insurance Providers Payer Name Payer Address Payer Phone Subscriber Number Group Number Insured Name Patient Relationship to Insured Coverage Start Date Coverage End Date [employer] [address] [address] [place] [phone] [id number] JACINTO SANCHEZ Self - patient is the insured
== END 2024-09-04 10:06 ==
LOC: LAB 09-10 10:59
PROVIDERS: PCP Family Medicine; Visit Provider Internal Medicine
DX: I12.9 Hypertensive chronic kidney disease with stage 1 through stage 4 chronic kidney disease, or unspecified chronic kidney disease (principal); N18.30 Chronic kidney disease, stage 3 unspecified; E78.5 Hyperlipidemia, unspecified; E11.9 Type 2 diabetes mellitus without complications; E83.42 Hypomagnesemia; E87.1 Hypo-osmolality and hyponatremia
CPT/HCPCS: 36415; 80069; 81001; 82570; 83735; 84156; 84550; 85027

== ENCOUNTER 2024-09-04 11:29 | Emergency (ER) | payer MEDICARE, SELFPAY ==
--- OUTSIDE RECORDS SUMMARY | 2023-03-11 04:50 | XMS_ITS ---
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 Name Role Phone Arnoldo Dougherty Unavailable [phone] Allergies No Known Allergies REASON FOR VISIT Right hip fx Encounters Encounter Location Date Provider Diagnosis [facility] [address] [place] [address] 03/11/2023 Arnoldo Dougherty Fracture of unspecified part of neck of right femur, initial encounter for closed fracture S72.001A Assessments Encounter Date Diagnosis (ICD Code) Assessment Notes Treatment Notes Treatment Clinical Notes Section Notes 03/11/2023 Fracture of unspecified part of neck of right femur, initial encounter for closed fracture (ICD-10 - S72.001A) 03/11/2023 Other She will continue to progress activities that she can tolerate. She will follow-up in 6 weeks for likely final set of x-rays. Import medication Plan Of Treatment Treatment Notes Assessment Notes Other She will continue to progress activities that she can tolerate. She will follow-up in 6 weeks for likely final set of x-rays. Import medication Pending Test Test Name Order Date SCC- HIP W/ PELVIS, RIGHT [id number] 03/11/20 Next Appt Details Follow Up: 6 Weeks, Reason: Progress Notes * JACINTO SANCHEZ LDOB: [birth year] (67 yo F)Acc No.[id number]:03/11/2023 Patient: Fiona MARCE JACINTO L Provider: Martha Dougherty MD :1955 A ge:67 Y S ex:Female Date:03/11/2023 Address:[address] [place] [address] [id number] Subjective: * Chief Complaints: * R ight hip fx * HPI: G eneral Follow Up Information: Patient presents today for follow-up of her right hip femoral neck fracture ORIF doing well. She denies having pain. * Medical History: * Surgical History: N o Surgical History documented. * Family History: N o Family History documented.. * Medications: N one * Allergies: N .K.D.A.no[Allergies Verified] Objective: * Examination: G eneral examination: R ight hip today has a painless active range of motion. She is able to walk well with her walker. X -ray Imaging Studies: X -rays show the femoral neck fracture in good alignment. No signs of implant loosening. M RI Imaging Studies: Assessment: * Assessment: 1. F racture of unspecified part of neck of right femur, initial encounter for closed fracture - S72.001A (Primary) Plan: * Treatment: 2. O thers Notes: She will continue to progress activities that she can tolerate. She will follow-up in 6 weeks for likely final set of x-rays. Import medication * Procedure Codes: * Follow Up: 6 Weeks * Images: * Sign off status: Completed true * Provider: Martha Dougherty MD Date: 05/12/2022 Generated for Bebe ram/Lizzie/Joselynitting on: 0 09/04/2024 12:18 PM EDT History and Physical Notes * HPI (History of Present Illness) Category Sub-Category Detail Notes Category Not es General Follow Up Information Patient presents tod ay for follow-up of her right hip femoral neck fracture ORIF doing well. She denies having pain. Examination Category Sub-Category Detail Notes Category Not es General examination Right hi p today has a painless active range of motion. She is able to walk well with her walker. X-ray Imaging Studies X-rays show the femoral neck fracture in good alignment. No signs of implant loosening. MRI Imaging Studies
--- OUTSIDE RECORDS SUMMARY | 2023-04-22 05:20 | XMS_ITS ---
Author Organization [facility] Address [address] [place] [address] Care Team Providers Care Associate Professor Of History Name Role Phone DoughertyNeden Unavailable [phone] REASON FOR VISIT Right hip fx Encounters Encounter Location Date Provider Diagnosis [facility] Office [address] [place] [address] [place] [address] 04/22/2023 Arnoldo Dougherty Displaced fracture of neck of right femur S72.001A Assessments Encounter Date Diagnosis (ICD Code) Assessment Notes Treatment Notes Treatment Clinical Notes Section Notes 04/22/2023 Displaced fracture of neck of right femur (ICD-10 - S72.001A) Plan Of Treatment Pending Test Test Name Order Date SCC- HIP W/ PELVIS, RIGHT [id number] 04/22/19 24 Progress Notes * LAURA JACINTO LDOB: [birth year] (69 yo F)Acc No.[id number]:04/22/2023 Patient: JACINTO VILLALTA Provider: Martha Dougherty MD :1955 A ge:67 Y S ex:Female Date:04/22/2023 Address:[address] [place], [place] [id number] Subjective: * Chief Complaints: * 1 . Right hip fx. * Medical History: Objective: * Vitals: Assessment: * Assessment: 1. D isplaced fracture of neck of right femur - S72.001A Plan: * Treatment: Forms: * Images: * Electronic signature of Ned Dougherty MD on 09/04/2024 at 12:18 PM EDT Sign off status: Pending * Provider: Martha Dougherty MD Date: 0 04/22/2023 Generated for Bebe ram/Lizzie/Vic on: 0 09/04/2024 12:18 PM EDT
--- OUTSIDE RECORDS SUMMARY | 2024-07-31 09:00 | XMS_ITS ---
Author Organization [facility] in [place] Address [address] [place] [address] Care Team Providers Care Assignment Desk Assistant Name Role Phone Johanne Darrin Primary Care Provider [phone] REASON FOR VISIT refill Medications Medication SIG (Take, Route, Fr equency, Duration) Notes Start Date End Date Status Magnesium Oxide 400 MG TAKE 11 TABLETS B Y MOUTH ONCE A DAY for 30 days Active Encounters Encounter Location Date Provider Diagnosis [facility] [address] [place] [address] 07/31/2024 Darrin Whiting Plan Of Treatment Medication Medication Name Sig Start Date Stop Date Notes Magnesium Oxide 400 MG TAKE 11 TABLETS B Y MOUTH ONCE A DAY for 30 days Progress Notes * Guera CAMPBELL LDOB: [birth year] (69 yo F)Acc No.[id number]:07/31/2024 Patient: Skinny VILLALTAbrad Nichols :1955 A ge:69 Y S ex:Female Address:[address] [place] [address], [phone] * Refills Refill Magnesium Oxide Tablet, 400 MG, 330 Tablet, TAKE 11 TABLETS BY MOUTH ONCE A DAY, 30 days, Refills=0 * true * Date: Generated for Bebe ram/Rambog/eTransmitting on: 0 09/04/2024 12:18 PM EDT
--- OUTSIDE RECORDS SUMMARY | 2024-08-04 07:15 | XMS_ITS ---
Author Organization [facility] [place] Address [address] [place] [address] Care Team Providers Care Braille Translator Name Role Phone Darrin Whiting Primary Care [...] 08/04/2024 Encounters Encounter Location Date Provider Diagnosis [facility] [address] [place] [address] 08/04/2024 Darrin Whiting Anemia, iron deficie ncy [...] Guera CAMPBELL LDOB: [birth year] (69 yo F)Acc No.[id number]:08/04/2024 Progress Note Patient: Guera VILLALTA Provider: Estela Whiting ([facility])MD :1955 A ge:69 Y S ex:Female Date:08/04/2024 Address:[address] [id number] Check In:11:13 AM ESTCheck O ut:11:51 AM [...] (TTC)MD Date: 0 08/04/2024 Generated for Caroli yo/Lizzie/eTransmitting on: 0 09/04/2024 12:18 PM EDT History [...]
--- OUTSIDE RECORDS SUMMARY | 2024-08-14 08:33 | XMS_ITS ---
Author Organization [facility] in [place] Address [address] [place] [address] Care Team Providers Care Oil Well Fishing Tool Operator Name Role Phone Darrin Whiting Primary Care Provider REASON FOR VISIT labs Encounters Encounter Location Date Provider Diagnosis [facility] [address] [place] [address] 08/14/2024 Darrin Whiting Plan Of Treatment No Information Progress Notes * Guera CAMPBELL LDOB: [birth year] (69 yo F)Acc No.[id number]:08/14/2024 Patient: Fiona ZHENG Guera Nichols :1955 A ge:69 Y S ex:Female Address:[address] [place] [address], [phone] * true * Date: Generated for Caroli yo/Fajayleeng/eTransmitting on: 0 09/04/2024 12:17 PM EDT
[2024-09-04 11:33] VITALS: BP 121/84; PULSE 98; TEMP 36.8; O2SAT 98; BMI 26.8
--- OUTSIDE RECORDS SUMMARY | 2024-09-04 12:18 | XMS_ITS | Patient Health Record ---
Author Organization The [facility] in [place] Address [address] [place] [address] Care Team Providers Care Rubber Mixer Name Role Phone Darrin Bernstein Primary Care Provider ASH BERNSTEIN Unavailable [phone] Allergies No Known Allergies Results Component Value Reference Range Notes FREE T4 Reviewed date:10/17/2023 08:38:52 PM Interpretation: Performing Lab: Notes/Report: [facility] , Free T4 0.72 0.76-1.46 ng/dL Performing Lab: see note ML - [facility] LB MAGNESIUM Reviewed date:12/12/2023 06:04:29 PM Interpretation: Performing Lab: Notes/Report: [facility] , Magnesium 1.5 1.8-2.4 mg/dL Performing Lab: see note ML - [facility] LB PROF CHEM 8 (BAS METB) Reviewed date:12/12/2023 06:04:29 PM Interpretation: Performing Lab: Notes/Report: [facility] , Sodium 137 136-145 mmol/L Potassium 4.4 3.5-5.1 mmol/L Chloride 100 98-107 mmol/L Carbon Dioxide 28.7 21.0-32.0 mmol/L Anion Gap 12.7 Glucose 155 74-106 mg/dL Blood Urea Nitrogen 9.0 7.0-18.0 mg/dL Creatinine 0.85 0.55-1.02 mg/dL Estimated GFR ( Brenda >60 >=60 Estimated GFR (Non- Francheska >60 >=60 BUN Creatinine Ratio 10.6 Calcium 8.9 8.5-10.1 mg/dL Performing Lab: see note ML - [facility] LB MAGNESIUM Reviewed date:01/09/2024 05:45:31 PM Interpretation: Performing Lab: Notes/Report: [facility] , Magnesium 1.5 1.8-2.4 mg/dL Performing Lab: see note ML - [facility] LB RENAL FUNCTION PANEL Reviewed date:01/09/2024 05:45:31 PM Interpretation: Performing Lab: Notes/Report: [facility] , Sodium 132 136-145 mmol/L Potassium 4.8 3.5-5.1 mmol/L Chloride 96 98-107 mmol/L Carbon Dioxide 28.4 21.0-32.0 mmol/L Anion Gap 12.4 Glucose 159 74-106 mg/dL Blood Urea Nitrogen 17.0 7.0-18.0 mg/dL Creatinine 1.08 0.55-1.02 mg/dL Estimated GFR ( Brenda >60 >=60 mL/min/1.73m 2 Estimated GFR (Non- Francheska 50 >=60 mL/min/1.73m 2 BUN Creatinine Ratio 15.7 Calcium 9.3 8.5-10.1 mg/dL Phosphorus 3.1 2.6-4.7 mg/dL Albumin Level 3.4 3.4-5.0 g/dL Performing Lab: see note ML - [facility] LB GLYCOHEMOGLOBIN A1C Reviewed date:08/14/2024 12:34:49 PM Interpretation: Performing Lab: Notes/Report: [facility] , Glycohemoglobin A1C 6.6 4.5-6.2 % ADA RECOMMENDED LIMIT 4.0 - 6.0 ADA THERAPEUTIC TARGET < 7.0 ACTION SUGGESTED > 7.0 Estimated Average Glucose 143 Performing Lab: see note ML - [facility] LB IRON Reviewed date:08/14/2024 12:34:49 PM Interpretation: Performing Lab: Notes/Report: [facility] , Iron 67.0 50.0-170.0 ug/dL Performing Lab: see note ML - [facility] LB VITAMIN D 25 OH Reviewed date:08/14/2024 12:34:49 PM Interpretation: Performing Lab: Notes/Report: [facility] , Vitamin D 26.4 <20 ng/mL Vit D deficient 20-<30 ng/mL Vit D insufficient 30-100 ng/mL Vit D sufficient >100 ng/mL Potential Toxicity Performing Lab: see note ML - [facility] LB MAGNESIUM (Not yet reviewed by provider) Interpretation: Performing Lab: Notes/Report: [facility] , Magnesium 1.5 1.8-2.4 mg/dL Performing Lab: see note ML - [facility] LB RENAL FUNCTION PANEL (Not ye t reviewed by provider) Interpretation: Performing Lab: Notes/Report: [facility] , Sodium 139 136-145 mmol/L Potassium 4.5 3.5-5.1 mmol/L Chloride 100 98-107 mmol/L Carbon Dioxide 29.2 21.0-32.0 mmol/L Anion Gap 14.3 Glucose 153 74-106 mg/dL Blood Urea Nitrogen 14.0 7.0-18.0 mg/dL Creatinine 0.79 0.55-1.02 mg/dL Estimated GFR ( Brenda >60 >=60 mL/min/1.73m 2 Estimated GFR (Non- Francheska >60 >=60 mL/min/1.73m 2 BUN Creatinine Ratio 17.7 Calcium 9.4 8.5-10.1 mg/dL Phosphorus 1.1 2.6-4.7 mg/dL RESULTS CALLED TO BETTYE SOLARES LPN Albumin Level 3.7 3.4-5.0 g/dL Performing Lab: see note ML - [facility] LB URIC ACID SERUM (Not yet rev iewed by provider) Interpretation: Performing Lab: Notes/Report: [facility] , Uric Acid 4.3 2.6-6.0 mg/dL Performing Lab: see note ML - [facility] LB URINE T PROTEIN CREAT RATIO (Not yet reviewed by provider) Interpretation: Performing Lab: Notes/Report: [facility] , Total Protein Urine Random 27.0 <=11.9 mg/dL Creatinine Urine Random 62.62 20.00-300.00 mg/d L Protein Creatinine Ratio Urine 0.43 Performing Lab: see note ML - [facility] LB CBC no Diff (Hemogram) (Not yet reviewed by provider) Interpretation: Performing Lab: Notes/Report: [facility] , White Blood Count 6.2 4.0-11.0 10 3/uL Red Blood Count 4.38 4.20-5.40 10 6/uL Hemoglobin 13.5 12.0-16.0 g/dL Hematocrit 41.7 36.0-48.0 % Mean Corpuscular Volume 95.2 81.0-99.0 fL Mean Corpuscular Hemoglobin 30.8 26.7-34.0 pg Mean Corpuscular HGB Conc 32.4 29.9-35.2 g/dL Red Cell Distribution Width 13.8 11.0-15.0 % Platelet Count 218 150-450 10 3/uL Mean Platelet Volume 10.5 9.5-13.5 fL Performing Lab: see note ML - [facility] LB CBC AUTO DIFF Reviewed date:08/14/2024 12:34:49 PM Interpretation: Performing Lab: Notes/Report: [facility] , White Blood Count 5.6 4.0-11.0 10 3/uL Red Blood Count 3.93 4.20-5.40 10 6/uL Hemoglobin 12.0 12.0-16.0 g/dL Hematocrit 38.5 36.0-48.0 % Mean Corpuscular Volume 98.0 81.0-99.0 fL Mean Corpuscular Hemoglobin 30.5 26.7-34.0 pg Mean Corpuscular HGB Conc 31.2 29.9-35.2 g/dL Red Cell Distribution Width 14.0 11.0-15.0 % Platelet Count 208 150-450 10 3/uL Mean Platelet Volume 10.5 9.5-13.5 fL Neutrophils Percent Auto 65.0 43.0-75.0 % Lymphocytes Percent Auto 26.2 20.5-60.0 % Monocytes Percent Auto 7.1 1.7-12.0 % Eosinophils Percent Auto 0.9 0.9-7.0 % Basophils Percent Auto 0.4 0.2-2.0 % Immature Granulocytes Pct Auto 0.4 0.0-0.5 % Neutrophils Absolute Auto 3.7 1.4-6.5 10 3/uL Lymphocytes Absolute Auto 1.5 1.2-3.8 10 3/uL Monocytes Absolute Auto 0.4 0.3-0.8 10 3/uL Eosinophils Absolute Auto 0.1 0.0-0.7 10 3/uL Basophils Absolute Auto 0.0 0.0-0.1 10 3/uL Immature Granulocytes Abs Auto 0.02 0.00-0.03 10 3/uL Performing Lab: see note - [facility] LB URINE T PROTEIN CREAT RATIO Reviewed date:03/22/2024 05:09:12 PM Interpretation: Performing Lab: Notes/Report: [facility] , Total Protein Urine Random 8.3 <=11.9 mg/dL Creatinine Urine Random 33.30 20.00-300.00 mg/d L Protein Creatinine Ratio Urine 0.25 Performing Lab: see note - [facility] LB UA RANDOM W or MICROSCOPIC Reviewed date:03/22/2024 05:09:12 PM Interpretation: Performing Lab: Notes/Report: [facility] , Color Urine LT. YELLOW YELLOW Clarity Urine CLEAR CLEAR Specific Watson Urine 1.015 1.005-1.025 pH Urine 7.5 5.0-9.0 Protein Urine NEGATIVE NEG/TRACE mg/dL Glucose Urine UA NEGATIVE NEGATIVE mg/dL Bilirubin Urine NEGATIVE NEGATIVE Ketones Urine NEGATIVE NEGATIVE mg/dL Blood Urine NEGATIVE NEGATIVE Nitrite Urine NEGATIVE NEGATIVE Urobilinogen Urine 0.2 0.2-1.0 EU/dL Leukocyte Esterase Urine SMALL NEGATIVE WBC Urine 2-5 NONE SEEN #/HPF RBC Urine 0-2 0-2 #/HPF Bacteria Urine TRACE NONE SEEN #/HPF Mucus Urine NONE SEEN NONE SEEN Squamous Epithelial Cell Urine FEW NONE/RARE #/LPF Crystals Seen? None Seen None Seen #/HPF Cast Seen? NONE SEEN NONE SEEN #/LPF Performing Lab: see note - [facility] LB RENAL FUNCTION PANEL Reviewed date:03/22/2024 05:09:12 PM Interpretation: Performing Lab: Notes/Report: [facility] , Sodium 135 136-145 mmol/L Potassium 4.4 3.5-5.1 mmol/L Chloride 97 98-107 mmol/L Carbon Dioxide 31.9 21.0-32.0 mmol/L Anion Gap 10.5 Glucose 178 74-106 mg/dL Blood Urea Nitrogen 11.0 7.0-18.0 mg/dL Creatinine 0.98 0.55-1.02 mg/dL Estimated GFR ( Brenda >60 >=60 mL/min/1.73m 2 Estimated GFR (Non- Francheska 56 >=60 mL/min/1.73m 2 BUN Creatinine Ratio 11.2 Calcium 8.6 8.5-10.1 mg/dL Phosphorus 2.9 2.6-4.7 mg/dL Albumin Level 3.3 3.4-5.0 g/dL Performing Lab: see note ML - [facility] LB MAGNESIUM Reviewed date:03/22/2024 05:09:12 PM Interpretation: Performing Lab: Notes/Report: [facility] , Magnesium 1.5 1.8-2.4 mg/dL Performing Lab: see note ML - [facility] LB Magnesium, Urine Reviewed date:01/15/2024 07:59:45 PM Interpretation: Performing Lab: Notes/Report: [facility] , Magnesium, U 7.1 Not Estab. mg/dL Magnesium,Urine 24hr 131.4 12.0-293.0 mg/24 hr Performed at: [facility] [address] [id number] Reconciliation Clerk: Lex Beltran PhD, Phone: [phone] Performing Lab: see note - [facility] LB PROF CHEM 8 (BAS METB) Reviewed date:12/19/2023 09:19:05 PM Interpretation: Performing Lab: Notes/Report: [facility] , Sodium 137 136-145 mmol/L Potassium 5.1 3.5-5.1 mmol/L Chloride 99 98-107 mmol/L Carbon Dioxide 30.6 21.0-32.0 mmol/L Anion Gap 12.5 Glucose 158 74-106 mg/dL Blood Urea Nitrogen 8.0 7.0-18.0 mg/dL Creatinine 0.99 0.55-1.02 mg/dL Estimated GFR ( Brenda >60 >=60 Estimated GFR (Non- Francheska 56 >=60 BUN Creatinine Ratio 8.1 Calcium 9.3 8.5-10.1 mg/dL Performing Lab: see note ML - [facility] LB PHOSPHORUS Reviewed date:12/19/2023 09:19:05 PM Interpretation: Performing Lab: Notes/Report: [facility] , Phosphorus 3.4 2.6-4.7 mg/dL Performing Lab: see note ML - [facility] LB MAGNESIUM Reviewed date:12/19/2023 09:19:05 PM Interpretation: Performing Lab: Notes/Report: [facility] , Magnesium 1.4 1.8-2.4 mg/dL Performing Lab: see note ML - [facility] LB PHOSPHORUS Reviewed date:12/12/2023 06:04:29 PM Interpretation: Performing Lab: Notes/Report: [facility] , Phosphorus 3.0 2.6-4.7 mg/dL Performing Lab: see note ML - [facility] LB TSH Reviewed date:10/17/2023 08:38:52 PM Interpretation: Performing Lab: Notes/Report: [facility] , Thyroid Stimulating Hormone 1.739 0.358-3.740 u IU/mL Performing Lab: see note ML - [facility] PROF CHEM 8 (BAS METB) Reviewed date:10/17/2023 08:38:52 PM Interpretation: Performing Lab: Notes/Report: [facility] , Sodium 136 136-145 mmol/L Potassium 4.7 3.5-5.1 mmol/L Chloride 100 98-107 mmol/L Carbon Dioxide 30.2 21.0-32.0 mmol/L Anion Gap 10.5 Glucose 160 74-106 mg/dL Blood Urea Nitrogen 10.0 7.0-18.0 mg/dL Creatinine 0.87 0.55-1.02 mg/dL Estimated GFR ( Brenda >60 >=60 Estimated GFR (Non- Francheska >60 >=60 BUN Creatinine Ratio 11.5 Calcium 8.6 8.5-10.1 mg/dL Performing Lab: see note ML - [facility] MAGNESIUM Reviewed date:10/17/2023 08:38:52 PM Interpretation: Performing Lab: Notes/Report: [facility] , Magnesium 2.1 1.8-2.4 mg/dL Performing Lab: see note ML - [facility] FREE T3 Reviewed date:10/17/2023 08:38:52 PM Interpretation: Performing Lab: Notes/Report: [facility] , Free T3 2.56 2.18-3.98 pg/mL Performing Lab: see note ML - [facility] LB TSH Reviewed date:09/06/2023 01:08:44 PM Interpretation: Performing Lab: Notes/Report: [facility] , Thyroid Stimulating Hormone 1.342 0.358-3.740 u IU/mL Performing Lab: see note ML - [facility] LB PROF 14(COMP METB) Reviewed date:09/06/2023 01:08:44 PM Interpretation: Performing Lab: Notes/Report: [facility] , Sodium 132 136-145 mmol/L Potassium 4.5 3.5-5.1 mmol/L Chloride 96 98-107 mmol/L Carbon Dioxide 30.4 21.0-32.0 mmol/L Anion Gap 10.1 Glucose 134 74-106 mg/dL Blood Urea Nitrogen 9.0 7.0-18.0 mg/dL Creatinine 0.86 0.55-1.02 mg/dL Estimated GFR ( Brenda >60 >=60 Estimated GFR (Non- Francheska >60 >=60 BUN Creatinine Ratio 10.5 Calcium 8.5 8.5-10.1 mg/dL Bilirubin Total 0.5 0.2-1.0 mg/dL Aspartate Amino Transferase 18 15-37 U/L Alanine Aminotransferase 19 14-59 U/L Alkaline Phosphatase 126 46-116 U/L Total Protein 7.5 6.4-8.2 g/dL Albumin Level 3.6 3.4-5.0 g/dL Globulin 3.9 Albumin Globulin Ratio 0.9 Performing Lab: see note ML - [facility] FREE T4 Reviewed date:09/06/2023 01:08:44 PM Interpretation: Performing Lab: Notes/Report: [facility] , Free T4 0.93 0.76-1.46 ng/dL Performing Lab: see note ML - [facility] FREE T3 Reviewed date:09/06/2023 01:08:44 PM Interpretation: Performing Lab: Notes/Report: [facility] , Free T3 2.01 2.18-3.98 pg/mL Performing Lab: see note ML - [facility] LB TSH Reviewed date:08/14/2024 12:34:49 PM Interpretation: Performing Lab: Notes/Report: [facility] , Thyroid Stimulating Hormone 0.897 0.358-3.740 u IU/mL Performing Lab: see note ML - [facility] LB T4 Reviewed date:08/14/2024 12:34:49 PM Interpretation: Performing Lab: Notes/Report: [facility] , T4 Thyroxine 4.00 4.80-13.90 ug/dL Performing Lab: see note ML - [facility] LB PROF 14(COMP METB) Reviewed date:08/14/2024 12:34:49 PM Interpretation: Performing Lab: Notes/Report: [facility] , Sodium 134 136-145 mmol/L Potassium 4.2 3.5-5.1 mmol/L Chloride 98 98-107 mmol/L Carbon Dioxide 31.8 21.0-32.0 mmol/L Anion Gap 8.4 Glucose 180 74-106 mg/dL Blood Urea Nitrogen 9.0 7.0-18.0 mg/dL Creatinine 0.91 0.55-1.02 mg/dL Estimated GFR ( Brenda >60 >=60 mL/min/1.73m 2 Estimated GFR (Non- Francheska >60 >=60 mL/min/1.73m 2 BUN Creatinine Ratio 9.9 Calcium 8.8 8.5-10.1 mg/dL Bilirubin Total 0.3 0.2-1.0 mg/dL Aspartate Amino Transferase 17 15-37 U/L Alanine Aminotransferase 20 14-59 U/L Alkaline Phosphatase 92 46-116 U/L Total Protein 6.8 6.4-8.2 g/dL Albumin Level 3.2 3.4-5.0 g/dL Globulin 3.6 Albumin Globulin Ratio 0.9 Performing Lab: see note ML - [facility] LB MAGNESIUM Reviewed date:08/14/2024 12:34:49 PM Interpretation: Performing Lab: Notes/Report: [facility] , Magnesium 1.6 1.8-2.4 mg/dL Performing Lab: see note ML - [facility] LB LIPID PROFILE Reviewed date:08/14/2024 12:34:49 PM Interpretation: Performing Lab: Notes/Report: [facility] , Triglycerides 76 <=150 mg/dL Cholesterol 124 <=200 mg/dL HDL Cholesterol 70 40-60 mg/dL > or =60 mg/dl - LOW CARDIOVASCULAR RISK <40 mg/dl - HIGH CARDIOVASCULAR RISK LDL Cholesterol Calculated 39.0 <100 mg/dl OPTIMAL 100-129 mg/dl NEAR OR ABOVE OPTIMAL 130-159 mg/dl BORDERLINE HIGH 160-189 mg/dl HIGH >190 mg/dl VERY HIGH VLDL CHOLESTEROL 15.2 Chol HDL Ratio 1.8 3.3 - 4.4 LOW RISK 4.4 - 7.1 AVERAGE RISK 7.1 - 11.0 MODERATE RISK >11.0 HIGH RISK Performing Lab: see note ML - [facility] LB FREE T3 Reviewed date:08/14/2024 12:34:49 PM Interpretation: Performing Lab: Notes/Report: [facility] , Free T3 2.20 2.18-3.98 pg/mL Performing Lab: see note ML - [facility] LB Reason For Referral Diagnosis 1 Magnesium deficiency (E61.2) Referral Organization [facility] Referring Provider First Name Darrin Referring Provider Last Name Johanne Referring Provider Speciality [facility] sanjuana Referred Provider Teri Salgado Referred Provider Specialty Nephrology Referral Priority Routine Medications Medication SIG (Take, Route, Frequency, Duration) Notes Start Date End Date Status Fosamax 70 MG 1 tablet 30 minutes before the first food, beverage or medicine of the day with plain water Orally Once Weekly for 30 days Active Folic Acid 1 MG 1 tablet Orally Once a day for 90 days Active Magnesium Oxide 400 MG TAKE 14 TABLETS B Y MOUTH ONCE A DAY for 30 days Active amLODIPine Besylate 10 MG 1 tablet Orall y Once a day for 90 days Active Omeprazole 40 MG TAKE 1 CAPSULE BY MO UTH EVERY DAY 30 MINUTES BEFORE BREAKFAST IN THE MORNING for 90 Active metFORMIN HCl 850 MG TAKE 1 TABLET BY MO UTH THREE TIMES A DAY for 90 days Active Citalopram Hydrobromide 40 MG TAKE 1 TAB LET BY MOUTH EVERY DAY for 90 Active Cyclobenzaprine HCl 10 MG TAKE 2 TABLETS BY MOUTH AT BEDTIME for 30 Active Liothyronine Sodium 5 MCG TAKE 2 TABLET BY MOUTH EVERY DAY ON EMPTY STOMACH FOR 30 DAYS for 90 days Active Cetirizine HCl 10 MG TAKE 1 TABLET BY MO UTH EVERY DAY for 90 Active Sodium Chloride 1 GM TAKE 3 TABLETS BY M OUTH THREE TIMES A DAY for 30 Active QUEtiapine Fumarate 100 MG TAKE 1 TABLET BY MOUTH EVERY DAY AT BEDTIME FOR 30 DAYS for 90 Active Atorvastatin Calcium 20 MG TAKE 1 TABLET BY MOUTH EVERY DAY for 90 days Active Pioglitazone HCl 45 MG 1 tablet Orally O nce a day for 90 days Active Immunizations Vaccine Route Administration Date Status Comme [facility] Syringe Pre -Filled 30 mcg/0.3 mL Unknown 03/23/2023 Administered Flu, Fluad (97965) 65 yrs + High Dose Seasonal (9233-9856) Unknown 02/25/2022 Administered Flu, Fluad (19883) 65 yrs + Trivalent (6088-1888) Unknown 02/16/2020 Administered Flu, Fluad (30190) 65 yrs+, single-dose syringe (2293-7498) Unknown 01/26/2021 Administered Flu, Fluzone High-Dose (2022 -2023) (18108) 65 yrs+ Unknown 03/22/2022 Administered Pneumococcal (Prevnar 13) Unknown 02/16/2020 Administer ed Pneumococcal (Prevnar 13) Unknown 05/08/2020 Administer ed SARS-COV-2 (COVID 19 Moderna - Booster 0.25mL) Unknown 04/09/2020 Administered SARS-COV-2 (COVID 19 Moderna - Booster 0.25mL) Unknown 03/28/2021 Administered SARS-COV-2 (COVID 19 Pfizer 30mcg/0.3mL) Unknown 03/28/2020 Administered SARS-COV-2 (COVID 19 Pfizer 30mcg/0.3mL) Unknown 07/13/2020 Administered SARS-COV-2 (COVID 19 Pfizer 30mcg/0.3mL) Unknown 01/26/2021 Administered ZOSTER (SHINGLES) VACCINE (HZV) Unknown 10/10/2021 Admi nistered Social History Tobacco Use: Social History Observation Description Date Details (start date - stop date) Former Smoker NA - 03/07/1980 Tobacco Use/Smoking Question Answer Notes Patient is a former smoker When did you stop smoking? 03/07/1980 How long has it been since you last smoked? > 10 years Alcohol Screen (Audit-C) Question Answer Notes Did you have a drink containing alcohol in the p ast year? No Points 0 Interpretation Negative AUDIT-C (Standard) Question Answer Notes Did you have a drink contain ing alcohol in the past year? Yes How often did you have six o r more drinks on one occasion in the past year? 4 or more times a week (4 points) How many drinks did you have on a typical day when you were drinking in the past year? 7 to 9 drinks (3 points) How often did you have a dri nk containing alcohol in the past year? Daily or almost daily (4 points) Points 11 Interpretation Positive Problems Problem Type SNOMED Code ICD Code Onset Dates Problem Status W/U Status Risk Notes Problem 63772735 Age-related osteoporosis without current pathological fracture (M81.0) Active confirmed Problem 709155714 Hypomagnesemia (E83.42) Active confirmed Problem Hypocalcemia (9114302) Hypocalcemia (E83.51) Active confirmed Problem Backache (222242893) Other dorsalgia (M54.89) Active confirmed Problem 287110701 Unspecified abnormal finding in specimens from other organs, systems and tissues (R89.9) Active confirmed Problem Gastroesophageal reflux disease (984152893) GERD (gastroesophageal reflux disease) (K21.9) Active confirmed Problem Hypothyroidism (40292517) Hypothyroidism (E03.9) Active confirmed Problem Hypertension (29212973) HTN (hypertension) (I10) Active confirmed Problem Edema (71648375) Edema (R60.9) Active confirmed Problem Hip pain (95766897) Hip pain (M25.559) Active confirmed Problem Hyponatremia (91472438) Hyponatremia (E87.1) Active confirmed Problem Closed fracture of femur (94226562) Femur fracture (S72.90XA) Active confirmed Problem Osteoporosis (40554452) Osteoporosis (M81.0) Active confirmed Problem Iron deficiency anemia (29939230) Iron deficiency anemia (D50.9) Active confirmed Problem Type II diabetes mellitus without complication (498806223) Non-insulin dependent type 2 diabetes mellitus (E11.9) Active confirmed Problem Hypoxia (010810438) Hypoxia (R09.02) Active con firmed Problem Iron deficiency anemia (94527027) Anemia, iron deficiency (D50.9) Active confirmed Problem Current drinker of alcohol (666092) Alcohol use (F10.99) Active confirmed Problem Essential hypertension (21138598) BP (high blood pressure) (I10) Active confirmed Problem 57277157 Pure hypercholesterole karissa, unspecified (E78.00) Active confirmed Problem Malnutrition of mild degree (Horowitz: 75% to less than 90% of standard weight) (03830594) Mild protein malnutrition (E44.1) Active confirmed Vital Signs Blood pressure diastolic 62 mm Hg 08/04/2024 Height 68 in 08/04/2024 Blood pressure systolic 128 mm Hg 08/04/2024 Weight 181.4 lbs 08/04/2024 BMI 27.58 kg/m2 08/04/2024 Encounters Encounter Location Date Provider Diagnosis [facility] [address] [facility] [place] [address] 08/04/2024 Darrin Bernstein Anemia, iron deficie ncy D50.9 ; Hyponatremia E87.1 ; Hypomagnesemia E83.42 ; HTN (hypertension) I10 and Non-insulin dependent type 2 diabetes mellitus E11.9 [facility] [address] [place] [address] 09/06/2023 ASH BERNSTEIN Hypothyroidism E03.9 [facility] [address] [place] [address] 09/16/2023 ASH BERNSTEIN [facility] [address] [facility] [place] [address] 10/17/2023 Darrin Bernstein [facility] [address] [facility] [place] [address] 10/29/2023 Darrin Bernstein [facility] [address] [facility] [place] [address] 11/11/2023 Darrin Bernstein [facility] [address] [facility] [place] [address] 12/11/2023 Darrin Bernstein Abnormal blood chemi stry R79.9 [facility] [address] [facility] [place] [address] 12/19/2023 Darrin Bernstein Magnesium deficiency E61.2 [facility] [address] [facility] [place] [address] 12/25/2023 Darrin Bernstein [facility] [address] [facility] [place] [address] 01/09/2024 Darrin Bernstein [facility] [address] [place] [address] 04/22/2024 Darrin Bernstein [facility] [address] [place] [address] 07/31/2024 Darrin Bernstein [facility] [address] [facility] [place] [address] 08/14/2024 Darrin Bernstein Assessments Encounter Date Diagnosis (ICD Code) Assessment Notes Treatment Notes Treatment Clinical Notes Section Notes 08/04/2024 Anemia, iron deficiency (ICD-10 - D50.9) 08/04/2024 Hyponatremia (ICD-10 - E87.1) 09/06/2023 Hypothyroidism (ICD-10 - E03.9) 12/11/2023 Abnormal blood chemistry (ICD-10 - R79.9) 12/19/2023 Magnesium deficiency (ICD-10 - E61.2) 08/04/2024 Hypomagnesemia (ICD-10 - E83.42) 08/04/2024 HTN (hypertension) (ICD-10 - I10) 08/04/2024 Non-insulin dependent type 2 diabetes mellitus (ICD-10 - E11.9) Plan Of Treatment Pending Test Test Name Order Date CMP (COMPLETE METABOLIC PANEL) HEMOGLOBIN A1C (GLYCO) 08/04/2024 IRON, TOTAL 08/04/2024 MAGNESIUM 12/11/2023 LIPID PANEL (CHOL/TRIG/HDL/LDL) 08/05/19 25 VITAMIN D, 25 LEVEL (TOTAL) 08/04/2024 XR Lumbar Spine (2-3 views) * 05/25/2020 XR Thoracic Spine (3 views) dorsal * US Lower Extremity RT 02/26/2023 T3 FREE, T4 FREE and TSH 11/01/2022 T3 FREE, T4 FREE and TSH 09/06/2023 T3 FREE, T4 FREE and TSH 09/03/2023 FECAL OCCULT BLOOD 09/03/2023 CMP - Comprehensive Metabolic Panel 09/06 CBC AUTO DIFF 09/17/2022 GLYCOHEMOGLOBIN A1C 11/01/2022 LIPID PROFILE 11/01/2022 MAGNESIUM 03/25/2023 MAGNESIUM 08/04/2024 MAGNESIUM 09/04/2024 PHOSPHORUS 12/11/2023 RENAL FUNCTION PANEL 09/04/2024 URIC ACID SERUM 09/04/2024 URINE T PROTEIN CREAT RATIO 09/04/2024 XR DEXA BONE DENSITY 07/30/2023 THYROID PANEL (T4/TSH/FREE T3) 5 MM screening mammo BI 08/04/2024 CBC no Diff (Hemogram) 09/04/2024 CMP (COMP MET CASTRO) w/eGFR CKD-EPI 2024 CBC WITH DIFF 08/04/2024 Insurance Providers Payer Name Payer Address Payer Phone Subscriber Number Group Number Insured Name Patient Relationship to Insured Coverage Start Date Coverage End Date MEDICARE RAILROAD [address] [address] [place], [place] [id number] Guera Campbell Self - patient is the insured 0 [facility] [address] [place] [address] [id number] Guera Campbell Self - patient is the insured 0 Medications Administered Medication Instructions Date of Administration Dosage Notes Kenalog-40 04/12/2023 120 mg 120 Ketorolac Tromethamine 04/12/2023 60 mg 60 Medical (General) History Medical History History ICD Code Iron deficiency anemia D50.9 Hyponatremia E87.1 Osteoporosis M81.0 Surgical History Surgery Date(Month/Year) Right Hip Surgery 12/2022 OR humerus fracture 02/2022 kyphoplasty L4 03/2020 EGD 06/2022 Hospitalization History Reason Date(Month/Year) syncopal episode 06/2020 PRES 03/2022
--- OUTSIDE RECORDS SUMMARY | 2024-09-04 12:18 | XMS_ITS | Clinical Summary ---
Author Organization [facility] Address [address] 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 Name Role Phone Unavailable Primary Care Provider Unavailabl e Social History Tobacco Use Types Packs/Day Years Used Date Smoking Tobacco: Never Assessed Comments Unknown Sex and Gender Information Value Date Recorded Sex Assigned at Not on file Legal Sex Female 11:59 AM EST Gender Identity Not on file Sexual Orientation Not on file Plan of Treatment Health Maintenance Due Date Last Done Comments Bone Density Scan 1954 CT Colonography 1954 Colonoscopy 1954 Colorectal Cancer Screening 1954 FIT-DNA (Cologuard) 1954 FIT 1954 Lipid Panel 1954 Sigmoidoscopy 1954 Yearly Adult Physical 1954 Hepatitis C Screening 1972 DTaP/Tdap/Td Vaccines (1 - Tdap) 1976 Mammogram 1994 Pneumococcal Vaccine (1 of 1 - PCV) 2004 Zoster Vaccines (1 of 2) 2004 COVID-19 Vaccine (1 - 2023-2 5 season) 2023 Influenza Vaccine (Season Ended) 2024 RSV High Risk: (Elderly (60+ ) or Population) (1 - 1-dose 75+ series) 2029 HIB Vaccines Aged Out No longer eligi ble based on patient's age to complete this topic HPV Vaccines Aged Out No longer eligi ble based on patient's age to complete this topic Hepatitis A Vaccines Aged Out No long er eligible based on patient's age to complete this topic Hepatitis B Vaccines Aged Out No long er eligible based on patient's age to complete this topic IPV Vaccines Aged Out No longer eligi ble based on patient's age to complete this topic Meningococcal Vaccine Aged Out No jareth jamshid eligible based on patient's age to complete this topic Rotavirus Vaccines Aged Out No longer eligible based on patient's age to complete this topic
--- NOTE | 2024-09-04 12:28 | ED.GENADUL1 ---
HPI HPI - General Adult General Chief complaint: Recheck/Abnormal Lab/Rx Stated complaint: ABNORMAL LABS Time Seen by Provider: 09/04/24 12:23 Source: patient Mode of arrival: walk-in Limitations: no limitations History of Present Illness HPI narrative: Patient is a 69-year-old female who is presenting to the ER with chief complaint of abnormal labs. Patient was sent to the ER by the loading rack supervisor, Dr. Salgado. Patient had low phosphate levels this morning, 1.1. Patient was sent to the ER to have IV phosphate infused. Patient stated that due to the weekend and he could not get the patient into the office, patient was sent to the ER to have an infusion of phosphorus. Patient is not a dialysis patient. Patient states she will have intermittent lightheadedness, but she has no symptoms at this time. I did speak to Dr. Salgado on the phone, because we did not receive any phone call prior to patient arriving. He is asking that we give patient 30 mmol of phosphorus and then patient may be discharged. He agrees with patient getting oral magnesium, IV magnesium as well. Patient states she has chronic magnesium levels of 1.5. She has no headache or neck pain. No chest pain or shortness of breath. No other acute complaints. All systems are negative except as noted/marked. All systems reviewed and otherwise negative. Nurses note and vital signs reviewed and patient is not hypoxic. General: The patient appears well and in no apparent distress. Patient is resting comfortably on cart. Patient is not toxic, lethargic, or listless Skin: Warm, dry, no pallor noted. There is no rash noted. No petechiae, purpura. Head: Normocephalic, atraumatic Eye: Normal conjunctiva, no drainage, EOMI. PERRL Ears, Nose, Mouth, and Throat: oral mucosa is moist. Nares patent. Mouth without vesicles. Cardiovascular: Regular Rate and Rhythm, no murmur, gallop, rub Respiratory: Patient is in no distress, no accessory muscle use, lungs are clear to auscultation, no wheezing, rales or rhonchi Back: non-tender, no CVA tenderness bilaterally to percussion. No CT LS midline pain GI: Soft, nontender, no tenderness to palpation, no masses appreciated. No rebound, guarding, or rigidity noted. No distention Musculoskeletal: Patient has full range of motion of all of the extremities, no motor, sensory, or focal neurological deficits Neurological: A&O x4, normal speech Psychiatric: Cooperative Related Data Home Medications ?Medication ?Instructions ?Recorded ?Confirmed amlodipine 10 mg tablet 10 mg PO DAILY 12/24/22 12/24/22 atorvastatin 10 mg tablet 10 mg PO DAILY 12/24/22 12/24/22 cetirizine 10 mg tablet 10 mg PO DAILY 12/24/22 12/24/22 citalopram 40 mg tablet 40 mg PO DAILY 12/24/22 12/24/22 cyclobenzaprine 10 mg tablet 10 mg PO Q12H 12/24/22 12/24/22 diclofenac sodium 75 mg 75 mg PO Q12H 12/24/22 12/24/22 tablet,delayed release folic acid 1 mg tablet 1 mg PO DAILY 12/24/22 12/24/22 irbesartan 300 mg tablet 300 mg PO DAILY 12/24/22 12/24/22 liothyronine 5 mcg tablet 10 mcg PO DAILY 12/24/22 12/24/22 magnesium oxide 400 mg (241.3 mg 2,800 mg PO DAILY 12/24/22 12/24/22 magnesium) tablet metformin 850 mg tablet 850 mg PO TID 12/24/22 12/24/22 omeprazole 40 mg capsule,delayed 40 mg PO DAILY 12/24/22 12/24/22 release pioglitazone 45 mg tablet 45 mg PO DAILY 12/24/22 12/24/22 quetiapine 100 mg tablet 100 mg PO BEDTIME 12/24/22 12/24/22 sodium chloride 1,000 mg soluble 3,000 mg PO BID 12/24/22 12/24/22 tablet Previous Rx's ?Medication ?Instructions ?Recorded acetaminophen 500 mg tablet 1,000 mg (2 x 500 mg) PO Q6H PRN 12/27/22 (Tylenol Extra Strength) Pain Scale 1-3 #90 tabs calcium carbonate 500 mg (2.5 x 200 mg calcium (500 12/27/22 mg)) PO TID #90 tabs food supplemt, lactose-reduced 1 ea PO BID #5,688 mL 12/27/22 (Ensure Active Protein-Muscle oral liquid) hydrocodone 5 mg-acetaminophen 325 1 tab PO Q4H PRN Pain #120 tabs 09/21/23 mg tablet Allergies Allergy/AdvReac Type Severity Reaction Status Date / Time No Known Drug Allergies Allergy Verified 12/24/22 15:45 Opioid HPI Opioid Management Most Recent Opioid Data: Last Pain Scale 9 12/27/22, 12:00 Ur Phencyclidine Scrn, (NEGATIVE) Negative 12/24/22, 00:20 [facility] Medical History (Updated 09/04/24 @ 14:54 by Regan Yeboah MD) Depression ?F32.A - Depression, unspecified (ICD-10) Anxiety ?F41.9 - Anxiety disorder, unspecified (ICD-10) Hyponatremia ?E87.1 - Hypo-osmolality and hyponatremia (ICD-10) Hypomagnesemia ?E83.42 - Hypomagnesemia (ICD-10) Hypertension ?I10 - Essential (primary) hypertension (ICD-10) Diabetes ?E11.9 - Type 2 diabetes mellitus without complications (ICD-10) Fracture of right hip ?S72.001A - Fracture of unspecified part of neck of right femur, initial encounter for closed fracture (ICD-10) Fall ?W19.XXXA - Unspecified fall, initial encounter (ICD-10) Fracture of hip ?S72.009A - Fracture of unspecified part of neck of unspecified femur, initial encounter for closed fracture (ICD-10) Acute pain of right hip ?M25.551 - Pain in right hip (ICD-10) Surgical History (Updated 12/24/22 @ 20:53 by Wendy Cardenas RN) Previous back surgery ?Z98.890 - Other specified postprocedural states (ICD-10) Family History (Updated 12/24/22 @ 20:54 by Wendy Cardenas RN) Mother Family history of CHF (congestive heart failure) Family history of cancer Family history of hypertension Sister Family history of diabetes mellitus Social History (Updated 12/24/22 @ 20:57 by Wendy Cardenas RN) Within the past year, how often did you have a drink containing alcohol: 2-4 times a month Within the past year, how often did you have six or more drinks on one occasion: monthly Smoking status: Heavy tobacco smoker Non-prescribed substance use: cannabis (any form) Previous occupational history: Retired Known occupational exposures/hazards: No Highest level of school completed/degree received: Bachelor's degree Are you now , , , , never or living with a partner: In a typical week, how many times do you talk on the telephone with family, friends, or neighbors: 3 or more times per week How often do you get together with friends or relatives: never How often do you attend quaker or jewish services: never Do you belong to any clubs or organizations such as quaker groups unions, fraternal or athletic groups, or school groups: yes Total score: 2 Score interpretation: A score of greater than or equal to 2 indicates the lowest level of social isolation. Little interest or pleasure in doing things: not at all Feeling down, depressed, or hopeless: not at all Feel stressed/tense/nervous/anxious/difficulty sleeping: very much Do you think of yourself as: straight/heterosexual Gender Identity: female Exam Constitutional Vital Signs, click to edit/add: Last Vital Signs Temp 98.2 F 09/04/24 11:33 Pulse 98 H 09/04/24 11:33 Resp 18 09/04/24 11:33 BP 121/84 09/04/24 11:33 Pulse Ox 98 09/04/24 11:33 O2 Del Method Nasal Cannula 09/04/24 11:33 Course Vital Signs Vital signs: Vital Signs Temperature 98.2 F 09/04/24 11:33 Pulse Rate 98 H 09/04/24 11:33 Respiratory Rate 18 09/04/24 11:33 Blood Pressure 121/84 09/04/24 11:33 Pulse Oximetry 98 09/04/24 11:33 Oxygen Delivery Method Nasal Cannula 09/04/24 11:33 Temperature 98.2 F 09/04/24 11:33 Pulse Rate 98 H 09/04/24 11:33 Respiratory Rate 18 09/04/24 11:33 Blood Pressure 121/84 09/04/24 11:33 Pulse Oximetry 98 09/04/24 11:33 Oxygen Delivery Method Nasal Cannula 09/04/24 11:33 Medical Decision Making MDM Narrative Medical decision making narrative: Patient had lab work drawn this morning. The lab tests were ordered by Dr. Salgado. Dr Salgado recommended 30 mmol of phosphorus to be transfused. I discussed with pharmacy staff on ordering the phosphorus. Patient also be given oral and IV magnesium. Patient had no symptoms during IV transfusion. Patient has had no new symptoms today. Patient will follow-up in the office on Saturday with the loading rack supervisor. Patient was thankful for help. Patient was made aware of IV infusion centers that [place] and most likely [facility] has where patient can come in for IV treatment and then leave where she does not need to come to the ER. Patient was not initially aware of this but now she is. Dr. Salgado and office staff are made aware of IV infusion centers as well. Dr Salgado was thankful for help. No question at discharge. He will see the patient in the office on Saturday Discharge Plan Discharge Chief Complaint: Recheck/Abnormal Lab/Rx Clinical Impression: Hypophosphatemia Patient Disposition: Home, Self-Care Time of Disposition Decision: 14:50 Condition: Fair Prescriptions / Home Meds: No Action amlodipine 10 mg tablet 10 mg PO DAILY atorvastatin 10 mg tablet 10 mg PO DAILY cetirizine 10 mg tablet 10 mg PO DAILY citalopram 40 mg tablet 40 mg PO DAILY cyclobenzaprine 10 mg tablet 10 mg PO Q12H diclofenac sodium 75 mg tablet,delayed release (DR/EC) 75 mg PO Q12H folic acid 1 mg tablet 1 mg PO DAILY irbesartan 300 mg tablet 300 mg PO DAILY liothyronine 5 mcg tablet 10 mcg PO DAILY magnesium oxide 400 mg (241.3 mg magnesium) tablet 2,800 mg PO DAILY metformin 850 mg tablet 850 mg PO TID omeprazole 40 mg capsule,delayed release(DR/EC) 40 mg PO DAILY pioglitazone 45 mg tablet 45 mg PO DAILY quetiapine 100 mg tablet 100 mg PO BEDTIME sodium chloride 1,000 mg tablet,soluble 3,000 mg PO BID hydrocodone-acetaminophen 5-325 mg Tablet 1 tab PO Q4H PRN (Reason: Pain) Qty: 120 0RF acetaminophen [Tylenol Extra Strength] 500 mg Tablet 1,000 mg PO Q6H PRN (Reason: Pain Scale 1-3) Qty: 90 0RF calcium carbonate 200 mg calcium (500 mg) Tablet,Chewable 500 mg PO TID Qty: 90 0RF Ensure Active Protein-Muscle Liquid 1 ea PO BID Qty: 5688 0RF Print Language: Mongolian Instructions: Hypophosphatemia (ED) Additional Instructions: Follow-up with your loading rack supervisor, Dr. Salgado Referrals: Yves Whiting MD [Primary Care Provider, Family Practice] - 1 week
[2024-09-04] MEDS: MAGNESIUM SULFATE IN WATER 2 GM/50 ML PREMIX 3.3 GM IV (12:48)
[2024-09-04] MEDS: POTASSIUM PHOS M BASIC D BASIC IV (13:01)
[2024-09-04] MEDS: SODIUM CHLORIDE 0.9% IV (13:01)
[2024-09-04] MEDS: MAGNESIUM OXIDE 400 MG TABLET 800 MG PO (13:07)
== END 2024-09-04 15:08 | disposition home or self-care (01) ==
PROVIDERS: Emergency Provider Emergency Medicine; PCP Family Medicine
DX: E83.39 Other disorders of phosphorus metabolism (principal); I12.9 Hypertensive chronic kidney disease with stage 1 through stage 4 chronic kidney disease, or unspecified chronic kidney disease; N18.30 Chronic kidney disease, stage 3 unspecified; E78.5 Hyperlipidemia, unspecified; E11.9 Type 2 diabetes mellitus without complications; E83.42 Hypomagnesemia; E87.1 Hypo-osmolality and hyponatremia; F17.200 Nicotine dependence, unspecified, uncomplicated
CPT/HCPCS: 36415; 80069; 81001; 82570; 83735; 84156; 84550; 85027; 96365; 96366; 96375; 99284; J3475

== ENCOUNTER 2025-03-16 09:55 | Outpatient (OUT) | payer MEDICARE, SELFPAY ==
--- OUTSIDE RECORDS SUMMARY | 2025-03-16 10:07 | XMS_ITS | CCD ---
Author Organization [facility] Care Team Providers Care Extern Name Role Phone MD Ash Bernstein Primary Care Provider MD Asa Napoles Attending Provider DO Barry Colby Emergency Provider MD Deangelo Kulkarni Admit Provider [phone] MD Deangelo Kulkarni Attending Provider MD Skyler Ro Other Provider [phone] DO Javan Boothe Other Provider DO Navarro [...] Weber Other Provider HEMANTH Braswell Other Provider [phone] DO Aubrey Martinez Other Provider MD Jonnathan Miguel Other Provider DO Navarro Cota Other Provider MD Jan Wood Other Provider MD Angelina Riley Other Provider Kurtis, ANP-BC Nicolasa Other Provider MD Conchita Weber Other Provider MD Kobe Morris Other Provider MD Rachel Persaud Other Provider MD Chandler Wynn Other Provider DO Zainab Story Other Provider MD Lauren Vicente Other Provider MD Zack Alonso Other Provider Katharina, MARINE STRUCTURAL WELDER-C Keisha Diaz Other Provider MD Wilian Pearson Other Provider MD Kun Perkins Other Provider MD Derrick Cash Other Provider DO Marlee Garces Other Provider DO Luca Lang Other Provider DO Ori Pardo Other Provider [phone] HEMANTH Buckner Other Provider DO Eugenio Tirado Other Provider MD Deangelo Kulkarni Other Provider [phone] HEMANTH Shoemaker Other Provider [phone] CHRISTIE Palacio Other Provider Unavailable Ash Bernstein Primary Care Physician Asa Napoles Unavailable Zainab BURNS Attending Unavailable Zainab BURNS Attending Unavailable Zainab BURNS Attending Unavailable MD Ash Bernstein Primary Care Provider MD Asa Napoles Attending Provider DR ASH WESTBROOK Primary Care Unavailable AMANDEEP Kingsley, DR ALEMAN Consulting Unavailable AMANDEEP Kingsley, DR ALEMAN Attending Unavailable AMANDEEP ., DR ALEMAN Admitting Unavailable AMANDEEP ., DR ALEMAN Primary Care Unavailable HOY ., DR ALEMAN Consulting Unavailable HOY ., DR ALEMAN Attending Unavailable HOY ., DR ALEMAN Admsean Unavailable HOY ., DR ALEMAN Primary Care Unavailable HOY ., DR ALEMAN Consulting Unavailable HOY ., DR ALEMAN Attending Unavailable HOY ., DR ALEMAN Admitting Unavailable HOY ., DR ALEMAN Primary Care Unavailable HOY ., DR ALEMAN Consulting Unavailable HOY ., DR ALEMAN Attending Unavailable HOY ., DR ALEMAN Admitting Unavailable ZIEBER, DR NAVI Cooley Consulting Unavailable HOY ., DR ALEMAN Primary Care Unavailable HOY ., DR ALEMAN Consulting Unavailable HOY ., DR ALEMAN Attending Unavailable HOY ., DR ALEMAN Admitting Unavailable HOY ., DR ALEMAN Attending Unavailable [...] Unavailable HOY ., DR ALEMAN Admsean Unavailable BENITEZ, TOMMY Attending Unavailable BEINTEZ, TOMMY Admitting Unavailable HOY ., DR ALEMAN Primary [...] ALEMAN Consulting Unavailable HOY ., DR ALEMAN Admitting Unavailable AMANDEEP ., DR ALEMAN Primary Care Unavailable OLEXA, ASA Attending Unavailable OLEXA, ASA Admitting Unavailable JEFF ., VAHID Consulting Unavailable JEFF ., VAHID Attending Unavailable AMANDEEP ., DR ALEMAN Primary Care Unavailable JEFF ., VAHID Admitting Unavailable KATIE SOTO Consulting Unavailable CASEYY ., DR ALEMAN Attending Unavailable HOY ., DR ALEMAN Consulting Unavailable AMANDEEP ., DR ALEMAN Primary Care Unavailable AMANDEEP ., DR ALEMAN Admitting Unavailable Hoy, Ash Riley Primary Care Unavailable Olexa, Asa Attending Unavailable Olexa, Asa Admitting Unavailable Olexa, Asa Admitting Unavailable Olexa, Asa Attending Unavailable Hoy, Ash M Primary Care Unavailable Olexa, Asa Admitting Unavailable Olexa, Asa Attending Unavailable Hoy, Ash M Primary Care Unavailable Hoy, Ash M Primary Care Unavailable Olexa, Asa Attending Unavailable Olexa, Asa Admitting Unavailable Hoy, Ash M Primary Care Unavailable GreyomaSharla cooleydah M Admitting Unavailable Skyler Ro Consulting Unavailable Navarro [...] Tamez Consulting Unavailable MassMario rios Consulting Unavailable Tia Michael Alma Delia Consulting Unavailable Sarahi Braswell Consulting Unavailable Aubrey Martinez Consulting Unavailable Jonnathan Miguel Consulting Unavailable Navarro Cota Consulting UnavailJan Pulido Consulting Unavailable Angelina Riley Consulting Unavailable Nicolasa Hull Consulting Unavailable Conchita Weber Consulting Unavailable Kobe Morris Consulting Unavailable Rachel Persaud Consulting Unavailable Chandler Wynn Consulting Unavailable Zainab Story Consulting Unavailable Lauren Vicente Consulting Unavailable Zack Alonso Consulting Unavailable Keisha Posadas Consulting Unavailable Wilian Pearson Consulting Unavailab Kun Ray Consulting Unavailable Derrick Cash Consulting Unavailable Marlee Garces Consulting Unavailable Luca Lang Consulting Unavailable Ori Pardo Consulting Unavailable Denice Buckner Unavailable Eugenio Tirado Consulting Unavailable Deangelo Kulkarni Consulting Unavailable Mary Shoemaker Consulting Unavailable Milvia Palacio Consulting Unavailable Ash Bernstein Primary Care Unavailable Asa Napoles Attending Unavailable Asa Napoles Admitting Unavailable Allergies Allergy ClassificationReported Allergen(s)Allergy TypeDate of OnsetReaction(s) Facility (1 source)No Known Medication Allergies; 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: [No Known Medication Allergies]Propensity to adverse reactions (disorder)[facility] Medications Current Medications MedicationDrug Class(es)DatesSig (Normalized)Sig (Original)acetaminophen 500 mg oral tablet (4 sources)Start: 17-09-2980vvso 500 mg by mouth every four hoursAcetaminophen Active 500 MG PO Q4H 180 March 26, 2022 1:00amalendronic acid 70 mg oral tablet (1 source)BisphosphonateStart: 86-46-2268kbru 70 mg by mouth every week Alendronate Active 70 MG PO every week January 09, 2024 12:00amaMILoride hydrochloride 5 mg oral tablet (1 source)Potassium-sparing DiureticStart: 47-29-8147nzwg 5 mg by mouth once dailyAmiloride Active 5 MG PO Daily January 09, 2024 12:00amamLODIPine 10 mg oral tablet (12 sources)Dihydropyridine Calcium Channel BlockerStart: 03-18-2022 End: 13-44-2242hosg 10 mg by mouth once dailyAmlodipine Active 10 MG PO Daily March 26, 2022 1:00amatorvastatin 20 mg oral tablet (15 sources)HMG-CoA Reductase InhibitorStart: 70-84-7351zhkv 20 mg by mouth once daily at bedtimeAtorvastatin Active 20 MG PO Daily at bedtime January 09, 2024 12:00amStart: 02-20-2022 End: 13-45-7397kgzh 10 mg by mouth once daily in the eveningAtorvastatin Discontinued 10 MG PO Every evening March 26, 2022 1:00am January 081:04amcetirizine hydrochloride 10 mg oral tablet (7 sources)Histamine-1 Receptor AntagonistStart: 74-14-9917hdje 1 tablet by mouth once dailyCetirizine (Zyrtec) 10 mg tablet Active 10 MG PO Daily January 09, 2024 12:00amStart: 03-08-2022 End: 03-14-2687ymkj 1 tablet by mouth once dailyCetirizine (Zyrtec) 10 mg Tablet Discontinued 10 MG PO Daily March 08, 2022 1:00am March 26, 2022 8:29pm citalopram 40 mg oral tablet (20 sources)Serotonin Reuptake InhibitorStart: 73-88-8500teok 1 tablet by mouth once dailyCitalopram (Celexa) 40 mg tablet Active 40 MG PO Daily January 09, 2024 12:00amStart: 15-72-2690qqec 1 tablet by mouth once dailyCeleXA 40 mg Tab 40 mg = 1 tab(s), Oral, Daily, Refills(s) 0 Start Date: 05/04/22 Status: Ordered Start: 02-20-2022 End: 20-51-3743vqon 80 mg by mouth once daily in the morningCitalopram Discontinued 80 MG PO Every morning March 26, 2022 1:00am January 09, 2024 10:57amCeleXA Activecyclobenzaprine hydrochloride 10 mg oral tablet (8 sources)Muscle RelaxantStart: 17-07-8681muss 20 mg by mouth once daily at bedtimeCyclobenzaprine Active 20 MG PO Daily at bedtime January 09, 2024 12:00amStart: 02-20-2022 End: 41-39-9908pith 10 mg by mouth three times dailyCyclobenzaprine Discontinued 10 MG PO Three times daily February 20, 2022 1:00am March 26, 2022 8:29pm diclofenac sodium 75 mg delayed release oral tablet (3 sources)Nonsteroidal Anti-inflammatory DrugStart: 22-99-3982hcsc 1 tablet by mouth twice dailydiclofenac sodium 75 mg Oral EC Tab 75 mg = 1 tab(s), Oral, BID, Refills(s) 0 Start Date: 05/04/22 Status: Orderedferrous sulfate (1 source)take 1 tablet by mouth twice dailyFerrous Sulfate 325 (65 Fe) MG TAKE 1 TABLET BY MOUTH TWICE A DAY Oral for 30 Days Activefolic acid 1 mg oral tablet (12 sources)Start: 03-18-2022 End: 13-93-3896wuhi 1 mg by mouth once dailyFolic Acid Active 1 MG PO Daily March 26, 2022 1:00amfurosemide 40 mg oral tablet (1 source)Loop DiureticFurosemide 40 MG TAKE 1 TABLET BY MOUTH EVERY MORNING FOR 4 DAYS Oral for 4 Days Activelansoprazole 30 mg delayed release oral capsule (7 sources)Proton Pump InhibitorStart: 27-39-8400wpel 1 capsule by mouth once dailylansoprazole 30 mg Cap-DR 30 mg = 1 cap(s), Oral, Daily, Refills(s) 0 Start Date: 05/04/22 Status: OrderedStart: 03-26-2022 End: 94-93-4924gprf 30 mg by mouth once dailyLansoprazole Discontinued 30 MG PO Daily March 26, 2022 1:00am January 09, 2024 11:04amliothyronine sodium 0.005 mg oral tablet (13 sources)l-TriiodothyronineStart: 48-74-8040wrhr 2 tablets by mouth once dailyliothyronine 5 mcg Tab 10 mcg = 2 tab(s), Oral, Daily, Refills(s) 0 Start Date: 05/04/22 Status: OrderedStart: 59-98-7680iitg 1 tablet by mouth once daily Liothyronine (Cytomel) 5 mcg Tablet Active 10 MCG PO Daily March 26, 2022 1:00amStart: 02-20-2022 End: 04-94-1876hhsm 10 ug by mouth once dailyLiothyronine Discontinued 10 MCG PO Daily February 20, 2022 1:00am March 26, 2022 8:29pmLosartan (6 sources)Angiotensin 2 Receptor BlockerLosartan Potassium Activemagnesium oxide 400 mg oral tablet (13 sources)Start: 88-87-2871Mffmzbnfc Oxide Active 0 PO Three times daily January 09, 2024 11:00am 20,000 mg twice a day, 16,000 at bedtime orally three times daily;Start: 59-88-4835aogq 1 tablet by mouth once dailymagnesium oxide 400 mg Tab 400 mg = 1 tab(s), Oral, Daily, Refills(s) 0 Start Date: 05/04/22 Status:OrderedStart: 03-18-2022 End: 14-67-0772qrud 400 mg by mouth twice dailyMagnesium Oxide Discontinued 400 MG PO Twice daily 60 March 26, 2022 1:00am January 09, 2024 11:05amtake 2 tablets by mouth three times dailyMagnesium Oxide 400 MG TAKE 2 TABLETS BY MOUTH 3 TIMES A DAY Oral for 30 Days ActivemetFORMIN hydrochloride 850 mg oral tablet (20 sources)BiguanideStart: 66-06-2774dkrr 850 mg by mouth once at mealtime Metformin Active 850 MG PO 3x/Day with meals January 09, 2024 11:02amStart: 03-26-2022 End: 28-00-2106qwvm 850 mg by mouth twice daily at mealtimeMetformin Discontinued 850 MG PO Twice daily with meals March 26, 2022 1:00am January 09, 2024 11:05amStart: 03-08-2022 End: 05-29-5918ruwi 850 mg by mouth three times dailyMetformin Discontinued 850 MG PO Three times daily March 08, 2022 1:00am March 26, 2022 8:29pm Start: 02-20-2022 End: 76-22-4424lspk 750 mg by mouth three times dailyMetformin Discontinued 750 MG PO Three times daily February 20, 2022 1:00am March 08, 2022 7:19pm metFORMIN HCl Activeomeprazole 40 mg delayed release oral capsule (7 sources)Proton Pump InhibitorStart: 66-07-0896mbtx 40 mg by mouth once daily Omeprazole Active 40 MG PO Daily January 09, 2024 12:00amPriLOSEC Active pioglitazone 45 mg oral tablet (14 sources)Peroxisome Proliferator Receptor alpha Agonist, Peroxisome Proliferator Receptor gamma Agonist, ThiazolidinedioneStart: 02-20-2022 End: 49-17-2281vgdj 45 mg by mouth once dailyPioglitazone Active 45 MG PO Daily March 26, 2022 1:00amQUEtiapine 100 mg oral tablet (19 sources)Atypical AntipsychoticStart: 02-20-2022 End: 64-12-4497uhkr 100 mg by mouth once daily at bedtimeQuetiapine Active 100 MG PO Daily at bedtime March 26, 2022 1:00amSEROquel Activesodium chloride 1000 mg oral tablet (15 sources)Start: 91-46-6550imep 2000 mg by mouth three times dailySodium Chloride Active 2000 MG PO Three times daily January 09, 2024 11:14amStart: 01-09-2024 End: 80-84-9784hqvb 3000 mg by mouth three times dailySodium Chloride Discontinued 3000 MG PO Three times daily January 09, 2024 11:03am January 09, 2024 11:14amStart: 71-04-1722masm 3 tablets by mouth three times dailySodium Chloride 1 g oral tablet = 3 tab(s), Oral, TID, Refills(s) 0 Start Date: 05/04/22 Status: OrderedStart: 03-26-2022 End: 93-53-7315kahu 1 g by mouth three times dailySodium Chloride Discontinued 1 GM PO Three times daily March 26, 2022 1:00am January 09, 2024 11:05amStart: 03-06-2022 End: 04-11-8256ufyu 1000 mg by mouth three times dailySodium Chloride Discontinued 1000 MG PO Three times daily March 06, 2022 1:00am March 8:29pmStart: 66-04-9078kips 3000 mg by mouth three times dailySodium Chloride Active 3000 MG PO Three times daily March 06, 2022 12:00am Completed/Discontinued Medications MedicationDrug Class(es)DatesSig (Normalized)Sig (Original)acetaminophen 325 mg / oxyCODONE hydrochloride 5 mg oral tablet (17 sources)Opioid AgonistStart: 02-20-2022 End: 25-84-4519fpcm 1 tablet by mouth every four hoursOxycodone-Acetaminophen (Percocet) 5-325 mg Tablet Discontinued 1 TAB PO Q4H 20 5 March 07, 2022 March 26, 2022 8:29pmaspirin 81 mg oral tablet (12 sources)Platelet Aggregation Inhibitor, Nonsteroidal Anti-inflammatory Drug Start: 03-11-2022 End: 62-67-2563nawq 81 mg by mouth once dailyAspirin Discontinued 81 MG PO Daily March 11, 2022 1:00am March 19, 2022 3:37pmStart: 02-20-2022 End: 38-30-5297dyke 81 mg by mouth once dailyAspirin Discontinued 81 MG PO Daily February 20, 2022 1:00am March 08, 2022 7:20pmcephalexin 500 mg oral capsule (17 sources)Cephalosporin AntibacterialStart: 02-20-2022 End: 39-84-9373aste 500 mg by mouth every eight hoursCephalexin Discontinued 500 MG PO Q8H March 07, 2022 1:00am March 19, 2022 3:37pmgabapentin 600 mg oral tablet (19 sources)Anti-epileptic AgentStart: 02-20-2022 End: 63-95-9193spbc 600 mg by mouth twice dailyGabapentin Discontinued 600 MG PO Twice daily 60 March 26, 2022 1:00am January 09, 2024 11:00amStart: 77-62-3275lvcv 1200 mg by mouth twice dailyGabapentin Active 1200 MG PO Twice daily February 20, 2022 12:00amGabapentin ActiveglyBURIDE 2.5 mg oral tablet (4 sources)SulfonylureaStart: 03-27-2022 End: 60-46-0193ocyd 2.5 mg by mouth twice dailyGlyburide Discontinued 2.5 MG PO Twice daily 60 March 27, 2022 1:00am January 09, 2024 11:05am hydroCHLOROthiazide 12.5 mg oral tablet (7 sources)Thiazide DiureticStart: 02-20-2022 End: 85-25-2759hcvu 12.5 mg by mouth once dailyHydrochlorothiazide Discontinued 12.5 MG PO Daily February 20, 2022 1:00am March 26, 2022 8:29pmibuprofen 800 mg oral tablet (13 sources)Nonsteroidal Anti-inflammatory DrugStart: 02-20-2022 End: 78-54-9005fdcm 800 mg by mouth every six hoursIbuprofen Discontinued 800 MG PO Q6H March 08, 2022 1:00am March 11, 2022 10:30amirbesartan 300 mg oral tablet (14 sources)Angiotensin 2 Receptor BlockerStart: 02-20-2022 End: 23-76-9882pmuu 300 mg by mouth once dailyIrbesartan Discontinued 300 MG PO Daily 30 March 26, 2022 1:00am January 09, 2024 11:15amloratadine 10 mg oral tablet (5 sources)Start: 03-26-2022 End: 98-78-2703kkgj 10 mg by mouth once dailyLoratadine Discontinued 10 MG PO Daily March 26, 2022 1:00am January 09, 2024 10:59ammelatonin 5 mg oral tablet (5 sources)Start: 03-18-2022 End: 72-41-2656zumv 5 mg by mouth once daily at bedtimeMelatonin Discontinued 5 MG PO Daily at bedtime March 18, 2022 1:00am March 26, 2022 8:29pm24 hr nicotine 0.875 mg/hr transdermal system (5 sources)Cholinergic Nicotinic AgonistStart: 03-18-2022 End: 44-49-1313Gowjuxhq Discontinued 1 EACH TRANSDERML Daily March 18, 2022 1:00am March 26, 2022 8:29pmondansetron 4 mg disintegrating oral tablet (8 sources)Serotonin-3 Receptor AntagonistStart: 03-07-2022 End: 45-65-8476vwzw 4 mg by mouth every six hoursOndansetron Discontinued 4 MG PO Q6H March 07, 2022 1:00am March 26, 2022 8:29pmtake 1 tablet by mouth four times daily as neededOndansetron HCl 4 MG TAKE 1 TABLET BY MOUTH FOUR TIMES A DAY NEEDED Oral for 5 Days Activepantoprazole 40 mg delayed release oral tablet (5 sources)Proton Pump InhibitorStart: 03-18-2022 End: 08-61-9193cpnr 40 mg by mouth twice dailyPantoprazole Discontinued 40 MG PO Twice daily March 18, 2022 1:00am March 2628:29pm microencapsulated potassium chloride 20 meq extended release oral tablet (6 sources)Start: 03-08-2022 End: 53-39-4358Ygqxbteyc Chloride (Klor-Con M20) 20 mEq tablet,ER particles/crystals Discontinued 20 MEQ PO Four times daily March 08, 2022 1:00am March 19, 2022 3:37pmthiamine 100 mg oral tablet (9 sources)Start: 03-18-2022 End: 76-72-7019mvga 100 mg by mouth once dailyThiamine Hcl (Vitamin B1) Discontinued 100 MG PO Daily March 26, 2022 1:00am January 09, 2024 11:03am Problems Active Problems Problem ClassificationProblemDateDocumented DateEpisodic/Chronic Administrative/social admission (8 sources)Other reduced mobility; 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: [Impaired mobility and activities of daily living]Onset: 506468-14-4925KmfzmeumFlrwwyvd reactions (3 sources)Eczema; 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: [Dermatitis, unspecified]Onset: 06-13-2022 17-52-2781QqfpphfsGgcxrjs disorders (3 sources)Anxiety; 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: [Anxiety disorder, unspecified]Onset: 659243-20-9609HpdcjicTowlbaciai heart failure; nonhypertensive (1 source)Unspecified diastolic (congestive) heart failure; 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: [UNSPECIFIED DIASTOLIC HEART FAILURE]Onset: 55-16-5210ItgxjnzVhogdrtysu and other anemia (5 sources)Anemia; 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: [Anemia, unspecified]11-62-9131Aylpnxcx Deficiency and other anemia (4 sources)Iron deficiency anemia; 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: [Iron deficiency anemia, unspecified]Onset: 32-40-1738PotdtqsqKutkafugyk and other anemia (5 sources)Iron deficiency anemia, unspecified; 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: [IRON DEFICIENCY ANEMIA UNSPECIFIED]Onset: 04-05-2648UwtxvjnpJitcmxkp mellitus without complication (3 sources)Diabetes mellitus; 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: [Type 2 diabetes mellitus without complications]Onset: 413625-07-6053MntcoxtBehakpuf mellitus without complication (1 source)Other abnormal glucose; 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: [OTHER ABNORMAL GLUCOSE]Onset: 75-31-4665HfxwpphlPvnatvdrc of lipid metabolism (1 source)Hyperlipidemia, unspecified; 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: [HYPERLIPIDEMIA UNSPECIFIED]Onset: 25-01-2268EjzbytqRozesfrfa hypertension (5 sources)Hypertensive disorder; 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: [Essential (primary) hypertension]Onset: 044741-05-5853QmjpvdbEiexq and electrolyte disorders (20 sources)Hyponatremia; 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: [Hypo-osmolality and hyponatremia]Onset: 577268-39-2020ImwdokkaLqchkxiq of upper limb (9 sources)Unspecified fracture of upper end of left humerus, initial encounter for closed fracture; 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: [Unspecified displaced fracture of surgical neck of left humerus, initial encounter for closed fracture]Onset: 02-19-2022 EpisodicGastritis and duodenitis (12 sources)Duodenitis; 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: [Duodenitis without bleeding]Onset: 631134-39-6903DofxcjhvRnbtmtcrpkje with complications and secondary hypertension (1 source)Hypertensive heart disease with heart failure; 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: [HTN HEART DISEASE W/HEART FAIL]Onset: 26-53-6791XvvretdOnme disorders (2 sources)Depressive jvrdlack42-61-5083VpodlsbBdtx disorders (1 source)Mood disorders; 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: [DEPRESSION UNSPECIFIED]Onset: 24-82-1162Ztfzjgshkcg deficiencies (1 source)Iron deficiency; 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: [IRON DEFICIENCY]Onset: 05-10-2022 EpisodicOsteoporosis (3 sources)Osteoporosis; 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: [Age-related osteoporosis without current pathological fracture]Onset: 495095-32-0972KfumokyEilye aftercare (1 source)Other care home (current) drug therapy; 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: [OTH DETENTION CURRENT DRUG THERAPY]Onset: 76-51-7760YwaypyyaSwcpr aftercare (1 source)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; 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: [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 DX]Onset: 42-43-9363JppyeifpPvsdc and ill- defined cerebrovascular disease (5 sources)Posterior reversible encephalopathy syndrome; 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: [Posterior reversible encephalopathy syndrome]96-91-9754BcswrimRrdiy and ill- defined cerebrovascular disease (6 sources)Posterior reversible encephalopathy syndrome; 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: [Other encephalopathy]Onset: 817544-00-7355XvformdYlzom and unspecified benign neoplasm (1 source)Polyp of colon; 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: [Polyp of colon]Onset: 06-15-2022 EpisodicOther and unspecified benign neoplasm (1 source)Polyp of colon; 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: [POLYP OF COLON]Onset: 06-13-2022 EpisodicOther connective tissue disease (6 sources)History of reverse prosthetic total arthroplasty of left shoulder; 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: [Presence of left artificial shoulder joint]ChronicOther connective tissue disease (4 sources)Presence of left artificial shoulder joint; 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: [PRESENCE LT ARTIFICIAL SHOULDER JNT]Onset: 14-34-6913YvetzmnFflqf connective tissue disease (1 source)Presence of unspecified artificial shoulder joint; 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: [Presence of unspecified artificial shoulder joint]Onset: 01-03-0424FoflsuvRvclj connective tissue disease (4 sources)Pain in right foot; 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: [PAIN IN RIGHT FOOT]Onset: 84-36-3141AgseygefCxwxr ear and sense organ disorders (2 sources)Hearing bfha26-11-8556NvaphblXdzbh ear and sense organ disorders (1 source)Unspecified hearing loss, unspecified ear; 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: [UNS HEARING LOSS UNSPECIFIED EAR]Onset: 06-38-7915DdpkcqmWpwoy gastrointestinal disorders (2 sources)Irritable bowel wdiljkse34-07-3629ZnboylySmued gastrointestinal disorders (1 source)Irritable bowel syndrome without diarrhea; 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: [IRRITABLE BOWEL SYND W/O DIARRHEA]Onset: 04-44-6545RzuimjsDbhzr gastrointestinal disorders (1 source)Hyperplastic polyp of ukpjyjuee75-14-8612HuegkchvQypbu nervous system disorders (6 sources)Metabolic encephalopathy; 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: [Metabolic encephalopathy] 94-07-9588YqszktuBtkyw nervous system disorders (7 sources)Metabolic encephalopathy; 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: [Metabolic encephalopathy] Onset: 538182-77-1394UrhwhhhEfkmg nervous system disorders (2 sources)Doeapnbgtq27-07-3799RogtuosbXadkk non-traumatic joint disorders (1 source)Pain in left wrist; 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: [PAIN IN LEFT WRIST]Onset: 69-24-0960SxswnksiFdgdn nutritional; endocrine; and metabolic disorders (9 sources)Hypomagnesemia; 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: [Hypomagnesemia]Onset: 05-01-2022 90-82-6752FqdqenfCmlgb nutritional; endocrine; and metabolic disorders (12 sources)Hypomagnesemia; 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: [Disorders of magnesium metabolism] Onset: 107477-92-5226OxlfnjlLgphk nutritional; endocrine; and metabolic disorders (2 sources)Body mass index 30+ - -29-8299QdmjujzPxyag nutritional; endocrine; and metabolic disorders (2 sources)Oiulmoz33-17-9376UingndnBbsvs nutritional; endocrine; and metabolic disorders (1 source)Obesity, unspecified; 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: [OBESITY UNSPECIFIED]Onset: 73-76-6631PhbsbrqMjgcr nutritional; endocrine; and metabolic disorders (1 source)Body mass index (BMI) 33.0-33.9, adult; 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: [BODY MASS INDEX BMI 33.0-33.9 ADULT]Onset: 75-90-4821PuzfzpaPzaqk screening for suspected conditions (not mental disorders or infectious disease) (10 sources)Electrocardiogram abnormal; 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: [Abnormal electrocardiogram [ECG] [EKG]]33-09-5110PeiorsnrXnjmhoor codes; unclassified (6 sources)Altered mental status; 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: [Altered mental status, unspecified]07-31-3309HwhgbuzeErfzgjaql and history of mental health and substance abuse codes (1 source)Personal history of nicotine dependence; 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: [PERSONAL HISTORY OF NICOTINE DEPEND]Onset: 57-43-9567LzzlupjdEtddyxjtbum; intervertebral disc disorders; other back problems (2 sources)Lumbosacral rrwmeuom15-35-1385IffobcywFhukfslnj-vylxzkc disorders (5 sources)Nicotine dependence, cigarettes, uncomplicated; 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: [Cannabis abuse, uncomplicated]Onset: 80-30-1470TkteqssOlfzatd disorders (1 source)Hypothyroidism, unspecified; 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: [HYPOTHYROIDISM UNSPECIFIED]Onset: 36-59-8108JbwdwofGpgbsozxuvkf (1 source)CONTACT W/AND (SUSP) EXPOS COVID-19; 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: [CONTACT W/AND (SUSP) EXPOS COVID-19]Onset: 00-53-9725Hrrcbxoltksw (1 source)Unspecified displaced fracture of surgical neck of left humerus, initial encounter for closed fracture; 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: [Unspecified displaced fracture of surgical neck of left humerus, initial encounter for closed fracture]Onset: 06-64-4773Bdcjllbzajyg (1 source)Posterior reversible encephalopathy syndrome; 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: [Posterior reversible encephalopathy syndrome]Onset: 13-69-8286Vzmraljfnasx (1 source)4-part fracture of surgical neck of left humerus, initial encounter for closed fracture; 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: [4-part fracture of surgical neck of left humerus, initial encounter for closed fracture]Onset: 06-78-6110Isvtqtknrflp (1 source)Encounter for preprocedural laboratory examination; 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: [Encounter for preprocedural laboratory examination]Onset: 02-12-0552Alaojlo tract infections (1 source)Urinary tract infection, site not specified; 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: [UTI SITE NOT SPECIFIED]Onset: 21-34-3292Ykxoinrw Past or Other Problems Problem ClassificationProblemDateDocumented DateEpisodic/ChronicDeficiency and other anemia (8 sources)Anemia, unspecified; 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: [Anemia, unspecified]Onset: [id number] Codes: Fall (2 sources)Unspecified fall, initial encounter; 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: [Fall on same level from slipping, tripping and stumbling with subsequent striking against unspecified object, initial encounter]Onset: 32-76-9882YlynnpmkRqoqjivyvavak and screening for infectious disease (1 source)Encounter for immunization; 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: [ENCOUNTER FOR IMMUNIZATION] Onset: 01-65-1243ObdnrkzwOllap aftercare (1 source)residential (current) use of aspirin; 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: [DETENTION CURRENT USE OF ASPIRIN]Onset: 97-31-1719NlghgpadBjfmb injuries and conditions due to external causes (1 source)History of falling; 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: [HISTORY OF FALLING]Onset: 71-27-4059VhpxsenlCxmyi non-traumatic joint disorders (3 sources)Pain in left shoulder; 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: [PAIN IN LEFT SHOULDER]Onset: 01-05-7950OrebyenxRzuyjhfp codes; unclassified (5 sources)Altered mental status, unspecified; 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: [Altered mental status]Onset: [id number] codes; unclassified (1 source)Other specified health status; 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: [Other specified health status]Onset: 86-69-2490Redpfsjt Results Test NameValueInterpretationReference RangeFacilityCBC AUTO DIFFon 07-04-2022 BASO #0.0 103/ulNormal0.0-0.1The [facility] HospitalComment on above:Performed By: #### CBC #### [facility] [id number] Jordan Guillenphils/100 WBC (Bld)0.5 %Normal0.2-2.0[facility] Comment on above:Performed By: #### CBC #### [facility] [id number] Jordan Paige #0.1 103/ulNormal0.0-0.7The [facility] HospitalComment on above: Performed By: #### CBC #### [facility] [address] [place] [address] Dr. Jordan Velázquezosinophils/100 WBC (Bld)1.4 %Normal0.9-7.0The [facility] Comment on above:Performed By: #### CBC #### [facility] [address] [place] [address] Dr. Jordan Velázquezrythrocyte distribution width (RBC) [Ratio]14.6 %Udvoxp29.0-15.0 The [facility] HospitalComment on above:Performed By: #### CBC #### [facility] [address] [place] [address] Dr. Jordan BlackwellHematocrit (Bld) [Volume fraction]34.7 %Critically low36.0-48.0 The [facility] HospitalComment on above:Performed By: #### CBC #### [facility] [address] [place] [address] Dr. Jordan BlackwellHemoglobin (Bld) [Mass/Vol]11.1 g/dLCritically low12.0-16.0The [facility] HospitalComment on above:Performed By: #### CBC #### [facility] [address] [place] [address] Dr. Jordan Garza #0.03 10e3/ulNormal0.00-0.03The [facility] HospitalComment on above:Performed By: #### CBC #### [facility] [address] [place] [address] Dr. Jordan Garza %0.4 %Normal0.0-0.5The [facility] HospitalComment on above: Performed By: #### CBC #### [facility] [address] [place] [address] Dr. Jordan Jordan #2.2 103/ulNormal1.2-3.8The [facility] HospitalComment on above:Performed By: #### CBC #### [facility] [address] [place] [address] Dr. Jordan Hannamphocytes/100 WBC (Bld)28.0 %Zygled41.5-60.0The [facility] HospitalComment on above:Performed By: #### CBC #### [facility] [address] [place] [address] Dr. Jordan Palacios DIFF REQNONormalThe [facility] HospitalComment on above: Performed By: #### CBC #### [facility] [address] [place] [address] Dr. Jordan Hughes (RBC) [Entitic mass]28.8 bdLpvrgw84.7-34.0The [facility] HospitalComment on above:Performed By: #### CBC #### [facility] [address] [place] [address] Dr. Jordan Hughes (RBC) [Mass/Vol]32.0 g/yILppbrv84.9-35.2The [facility] HospitalComment on above:Performed By: #### CBC #### [facility] [address] [place] [address] Dr. Jordan Hughes (RBC) [Entitic vol]90.1 nLJxctms40.0-99.0The [facility] HospitalComment on above:Performed By: #### CBC #### [facility] [address] [place] [address] Dr. Jordan Bragg #0.6 103/ulNormal0.3-0.8The [facility] HospitalComment on above:Performed By: #### CBC #### [facility] [address] [place] [address] Dr. Jordan Prideocytes/100 WBC (Bld)7.7 %Normal1.7-12.0The [facility] Comment on above:Performed By: #### CBC #### [facility] [address] [place] [address] Dr. Jordan Mckeon #4.9 103/ulNormal1.4-6.5The [facility] HospitalComment on above:Performed By: #### CBC #### [facility] [address] [place] [address] Dr. Jordan Pittmanutrophils/100 WBC (Bld)62.0 %Fnbjhu08.0-75.0The [facility] on above:Performed By: #### CBC #### [facility] [address] [place] [address] Dr. Jordan BlackwellPlatelet mean volume (Bld) [Entitic vol]10.2 fLNormal9.5-13.5The [facility] HospitalComment on above:Performed By: #### CBC #### [facility] [address] [place] [address] Dr. Jordan BlackwellPLT216 103/niHitjqm511-181Hhg [facility] on above: Performed By: #### CBC #### [facility] [address] [place] [address] Dr. Jordan BlackwellRBC3.85 106/ulCritically low4.20-5.40The [facility] on above:Performed By: #### CBC #### [facility] [address] [place] [address] Dr. Jordan BlackwellWBC7.8 103/ulNormal4.0-11.0The [facility] on above: Performed By: #### CBC #### [facility] [address] [place] [address] Dr. Jordan Chapin 12-47-9893Yzuk [Mass/Vol]36.0 ug/dLCritically low 50.0-170.0The [facility] on above:Performed By: #### URCX #### [facility] [address] [place] [address] Dr. Jordan BlackwellMAGNESIUMon 21-80-8493Wkxhwlexo [Mass/Vol]1.5 mg/dLCritically low 1.8-2.4The [facility] on above:Performed By: #### CBC #### [facility] [address] [place] [address] Dr. Jordan DowlingF 14(COMP METB)on 92-26-8702Irntakq [Mass/Vol]3.5 g/dLNormal 3.4-5.0The [facility] HospitalComment on above:Performed By: #### CBC #### [facility] [address] [place] [address] Dr. Jordan BlackwellAlbumin/Globulin [Mass ratio]1.0 {ratio}NormalThe [facility] HospitalComment on above:Performed By: #### CBC #### [facility] [address] [address] [address] Jordan AngelaP [Catalytic activity/Vol]137 U/LCritically mjhi60-800Zje [facility] HospitalComment on above:Performed By: #### CBC #### [facility] [address] [place] [address] Dr. Jordan AngelaT [Catalytic activity/Vol]58 U/DNfgoha51-93Mnc [facility] HospitalComment on above:Performed By: #### CBC #### [facility] [address] [place] [address] Dr. Jordan Huertas gap [Moles/Vol]12.7 mmol/LNormalThe [facility] Comment on above:Performed By: #### CBC #### [facility] [address] [place] [address] Dr. Jordan BlackwellAST [Catalytic activity/Vol]53 U/LCritically spal59-04Mqa [facility] HospitalComment on above:Performed By: #### CBC #### [facility] [address] [place] [address] Dr. Joradn BlackwellBilirubin [Mass/Vol]0.2 mg/dLNormal0.2-1.0The [facility] Comment on above:Performed By: #### CBC #### [facility] [address] [place] [address] Dr. Jordan BlackwellCalcium [Mass/Vol]8.9 mg/dLNormal8.5-10.1The [facility] Comment on above:Performed By: #### CBC #### [facility] [address] [place] [address] Dr. Jordan BlackwellChloride [Moles/Vol]101 mmol/XAfsbyj84-327Bbs [facility] Comment on above:Performed By: #### CBC #### [facility] [address] [address] [address] Jordan BlackwellCO2 [Moles/Vol]29.3 mmol/UXgwcjh05.0-32.0The [facility] Comment on above:Performed By: #### CBC #### [facility] [address] [address] [address] Jordan BlackwellCreatinine [Mass/Vol]0.91 mg/dLNormal0.55-1.02[facility] HospitalComment on above:Performed By: #### CBC #### [facility] [address] [address] [address] Jordan VelázquezGFR-AF GRENADIAN>60Normal>=60The [facility] HospitalComment on above:Performed By: #### CBC #### [facility] [address] [address] [address] Jordan VelázquezGFR-NON AF GRENADIAN>60Normal>=60The [facility] HospitalComment on above:Performed By: #### CBC #### [facility] [address] [address] [address] Jordan BlackwellGlobulin (S) [Mass/Vol]3.5 g/dLNormalThe [facility] HospitalComment on above:Performed By: #### CBC #### [facility] [address] [address] [address] Jordan BlackwellGlucose [Mass/Vol]134 mg/dLCritically augo76-273Axf [facility] HospitalComment on above:Performed By: #### CBC #### [facility] [address] [address] [address] Jordan BlackwellPotassium [Moles/Vol]5.0 mmol/LNormal3.5-5.1The [facility] Comment on above:Performed By: #### CBC #### [facility] [address] [address] [address] Jordan BlackwellProtein [Mass/Vol]7.0 g/dLNormal6.4-8.2The [facility] Comment on above:Performed By: #### CBC #### [facility] [address] [address] [address] Jordan BlackwellSodium [Moles/Vol]138 mmol/FEwkofl883-479Rfx [facility] Comment on above:Performed By: #### CBC #### [facility] [address] [place] [address] Dr. Jordan BlackwellUrea nitrogen [Mass/Vol]11.0 mg/dLNormal7.0-18.0The [facility] HospitalComment on above:Performed By: #### CBC #### [facility] [address] [place] [address] Dr. Jordan BlackwellUrea nitrogen/Creatinine [Mass ratio]12.1 mg/mgNormalThe [facility] HospitalComment on above:Performed By: #### CBC #### [facility] [address] [place] [address] Dr. Jordan BlackwellINSULINon 59-12-3441Yxrahya2.3 uIU/mLNormal2.6-24.9The [facility] HospitalComment on above:Performed By: #### CBC #### [facility] [address] [place] [address] Dr. Jordan SiegelC AUTO DIFFon 43-18-1021NNRK #0.0 103/ulNormal0.0-0.1The [facility] HospitalComment on above:Performed By: #### PRBC #### [facility] [address] [place] [address] Dr. Jodran BlackwellBasophils/100 WBC (Bld)0.4 %Normal0.2-2.0The [facility] Comment on above:Performed By: #### PRBC #### [facility] [address] [place] [address] Dr. Jordan Paige #0.1 103/ulNormal0.0-0.7The [facility] HospitalComment on above: Performed By: #### PRBC #### [facility] [address] [place] [address] Dr. Jordan Velázquezosinophils/100 WBC (Bld)2.0 %Normal0.9-7.0The [facility] Comment on above:Performed By: #### PRBC #### [facility] [address] [place] [address] Dr. Jordan Velázquezrythrocyte distribution width (RBC) [Ratio]14.4 %Ldtmaw59.0-15.0 The [facility] HospitalComment on above:Performed By: #### PRBC #### [facility] [address] [place] [address] Dr. Jordan BlackwellHematocrit (Bld) [Volume fraction]36.3 %Rreciy85.0-48.0The [facility] HospitalComment on above:Performed By: #### PRBC #### [facility] [address] [place] [address] Dr. Jordan BlackwellHemoglobin (Bld) [Mass/Vol]11.4 g/dLCritically low12.0-16.0The [facility] HospitalComment on above:Performed By: #### PRBC #### [facility] [address] [place] [address] Dr. Jordan Garza #0.03 10e3/ulNormal0.00-0.03The [facility] HospitalComment on above:Performed By: #### PRBC #### [facility] [address] [place] [address] Dr. Jordan BlackwellIG %0.4 %Normal0.0-0.5The [facility] HospitalComment on above: Performed By: #### PRBC #### [facility] [address] [place] [address] Dr. Jordan NajeraH #2.1 103/ulNormal1.2-3.8The [facility] HospitalComment on above:Performed By: #### PRBC #### [facility] [address] [place] [address] Dr. Jordan Hannamphocytes/100 WBC (Bld)29.6 %Phswdi76.5-60.0The [facility] HospitalComment on above:Performed By: #### PRBC #### [facility] [address] [place] [address] Dr. Jordan Palacios DIFF REQNONormalThe [facility] HospitalComment on above: Performed By: #### PRBC #### [facility] [address] [place] [address] Dr. Jordan Hughes (RBC) [Entitic mass]28.1 cpGobzvu11.7-34.0The [facility] HospitalComment on above:Performed By: #### PRBC #### [facility] [address] [place] [address] Dr. Jordan Hughes (RBC) [Mass/Vol]31.4 g/iKFfznxo16.9-35.2The [facility] HospitalComment on above:Performed By: #### PRBC #### [facility] [address] [place] [address] Dr. Jordan Hughes (RBC) [Entitic vol]89.4 tAUtdwdw33.0-99.0The [facility] HospitalComment on above:Performed By: #### PRBC #### [facility] [address] [place] [address] Dr. Jordan Bragg #0.5 103/ulNormal0.3-0.8The [facility] HospitalComment on above:Performed By: #### PRBC #### [facility] [address] [place] [address] Dr. Jordan Prideocytes/100 WBC (Bld)7.5 %Normal1.7-12.0The [facility] Comment on above:Performed By: #### PRBC #### [facility] [address] [place] [address] Dr. Jordan Mckeon #4.2 103/ulNormal1.4-6.5The [facility] HospitalComment on above:Performed By: #### PRBC #### [facility] [address] [place] [address] Dr. Jordan Pittmanutrophils/100 WBC (Bld)60.1 %Anlvau85.0-75.0The [facility] HospitalComment on above:Performed By: #### PRBC #### [facility] [address] [address] [address] Jordan BlackwellPlatelet mean volume (Bld) [Entitic vol]10.6 fLNormal9.5-13.5The [facility] HospitalComment on above:Performed By: #### PRBC #### [facility] [address] [place] [address] Dr. Jordan BlackwellPLT253 103/xtNiyelg576-772Fcb [facility] HospitalComment on above: Performed By: #### PRBC #### [facility] [address] [place] [address] Dr. Jordan BlackwellRBC4.06 106/ulCritically low4.20-5.40The [facility] HospitalComtr[facility] on above:Performed By: #### PRBC #### [facility] [address] [place] [address] Dr. Jordan BlackwellWBC7.0 103/ulNormal4.0-11.0The [facility] HospitalComment on above: Performed By: #### PRBC #### [facility] [address] [place] [address] Dr. Jordan BlackwellFERRITINamor 00-73-6045Exibsidq [Mass/Vol]27.0 ng/mLNormal8.0-252.0 The [facility] HospitalCom[facility] [place] on above:Performed By: #### URCX #### [facility] [address] [place] [address] Dr. Jordan BlackwellFOLATEon 99-54-8185NHHIVF27.70 ng/mLNormal8.60-58.90The [facility] on above:Performed By: #### URCX #### [facility] [address] [place] [address] Dr. Jordan Cabrera THYROXINE INDEX T7on 64-65-3447IMV3.25Gstkbz5.30-4.50The [facility] Hospitalment on above:Performed By: #### BMP #### [facility] [address] [place] [address] Dr. Jordan BlackwellT3U34.0 %Rcaljz29.0-39.0The [facility] HospitalComment on above: Performed By: #### BMP #### [facility] [address] [address] [address] Jordan BlackwellT4 [Mass/Vol]6.80 ug/dLNormal4.80-13.90[facility] Comment on above:Performed By: #### BMP #### [facility] [address] [address] [address] Jordan BlackwellGLYCOHEMOGLOBIN A1Con 70-54-8356RXJ RECOMMENDATIONSEE BELOWKindred HealthcareComment on above:Result Comment: ADA RECOMMENDED LIMIT 4.0 - 6.0 ADA THERAPEUTIC TARGET < 7.0 ACTION SUGGESTED > 7.0Performed By: #### CBC #### [facility] [address] [place] [address] Dr. Jordan BlackwellGlucose [Mass/Vol]105 mg/dLNoGuernsey Memorial HospitalComment on above:Performed By: #### CBC #### [facility] [address] [place] [address] Dr. Jordan BlackwellHbA1c (Bld) [Mass fraction]5.3 %Normal4.5-6.2The [facility] HospitalComment on above:Performed By: #### CBC #### [facility] [address] [place] [address] Dr. Jordan BlackwellIROOdette 41-55-4991Cmzb [Mass/Vol]33.0 ug/dLCritically low 50.0-170.0[facility] HospitalComment on above:Performed By: #### URCX #### [facility] [address] [place] [address] Dr. Jordan BlackwellLIPID PROFILEon 11-69-3291KTJK-HDL RATIO NORMSEE [facility] HospitalCom[facility] [place] on above:Result Comment: 3.3 - 4.4 LOW RISK 4.4 - 7.1 AVERAGE RISK 7.1 - 11.0 MODERATE RISK >11.0 HIGH RISKPerformed By: #### BMP #### [facility] [address] [place] [address] Dr. Jordan BlackwellCholesterol [Mass/Vol]148 mg/dLNormal<=200The [facility] Comment on above:Performed By: #### BMP #### [facility] [address] [address] [address] Jrodan BlackwellCholesterol in HDL [Mass/Vol]62 mg/dLCritically nxsu80-13WzcLancaster Municipal HospitalComment on above:Performed By: #### BMP #### [facility] [address] [address] [address] Jordan BlackwellCholesterol in LDL [Mass/Vol]70.8 mg/dLCentervilleComment on above:Performed By: #### BMP #### [facility] [address] [place] [address] Dr. Jordan Varmaesterjose.total/Cholesterol in HDL [Mass ratio]2.4 {ratio} NormalLancaster Municipal HospitalComment on above:Performed By: #### BMP #### [facility] [address] [address] [address] Jordan De Leon NORMAL> or = 60 mg/dl - LOW CARDIOVASCULAR RISK <40 mg/dl - HIGH CARDIOVASCULAR RISKCentervilleComment on above:Performed By: #### BMP #### [facility] [address] [place] [address] Dr. Jordan Enrique CALC NORMALSEE BELOWCentervilleComment on above:Result Comment: <100 mg/dl OPTIMAL 100 - 129 mg/dl NEAR OR ABOVE OPTIMAL 130 - 159 mg/dl BORDERLINE HIGH 160 - 189 mg/dl HIGH >190 mg/dl VERY HIGH Performed By: #### BMP #### [facility] [address] [address] [address] Jordan BlackwellTriglyceride [Mass/Vol]76 mg/dLNormal<=150[facility] Comment on above:Performed By: #### BMP #### [facility] [address] [address] [address] Jordan DiasLDL CALC15.2 mg/dLNoGuernsey Memorial HospitalComment on above: Performed By: #### BMP #### [facility] [address] [place] [address] Dr. Jordan BlackwellMAGNESIUMon 11-49-1095Mdqkckpro [Mass/Vol]0.9 mg/dLCritically low 1.8-2.4The [facility] HospitalComment on above:Performed By: #### BMP #### [facility] [address] [place] [address] Dr. Jordan BlackwellPROF 14(COMP METB)on 79-10-3713Jhctpfi [Mass/Vol]3.6 g/dLNormal 3.4-5.0The Miami HospitalComment on above:Performed By: #### CBC #### [facility] [address] [place] [address] Dr. Jordan BlackwellAlbumin/Globulin [Mass ratio]1.0 {ratio}NormalThe [facility] HospitalComment on above:Performed By: #### CBC #### [facility] [address] [place] [address] Dr. Jordan AngelaP [Catalytic activity/Vol]132 U/LCritically osrc34-981Kyc [facility] HospitalComment on above:Performed By: #### CBC #### [facility] [address] [place] [address] Dr. Jordan Berumen [Catalytic activity/Vol]21 U/HSymkib12-40Can [facility] HospitalComment on above:Performed By: #### CBC #### [facility] [address] [place] [address] Dr. Jordan Huertas gap [Moles/Vol]9.1 mmol/LNormalThe [facility] HospitalComment on above:Performed By: #### CBC #### [facility] [address] [place] [address] Dr. Jordan BlackwellAST [Catalytic activity/Vol]18 U/CGjubxk60-67Wdp [facility] HospitalComment on above:Performed By: #### CBC #### [facility] [address] [place] [address] Dr. Jordan BlackwellBilirubin [Mass/Vol]0.2 mg/dLNormal0.2-1.0The [facility] Comment on above:Performed By: #### CBC #### [facility] [address] [address] [address] Jordan BlackwellCalcium [Mass/Vol]8.3 mg/dLCritically low8.5-10.1The [facility] HospitalComment on above:Performed By: #### CBC #### [facility] [address] [address] [address] Jordan BlackwellChloride [Moles/Vol]97 mmol/LCritically ehy65-514Eqx [facility] HospitalComment on above:Performed By: #### CBC #### [facility] [address] [address] [address] Jordan BlackwellCO2 [Moles/Vol]28.5 mmol/INmvaht24.0-32.0[facility] Comment on above:Performed By: #### CBC #### [facility] [address] [address] [address] Jordan BlackwellCreatinine [Mass/Vol]0.68 mg/dLNormal0.55-1.02The [facility] HospitalComtrinity health [place] on above:Performed By: #### CBC #### [facility] [address] [address] [address] Jordan VelázquezGFR-AF GRENADIAN>60Normal>=60The [facility] HospitalComment on above:Performed By: #### CBC #### [facility] [address] [address] [address] Jordan VelázquezGFR-NON AF GRENADIAN>60Normal>=60The [facility] HospitalComment on above:Performed By: #### CBC #### [facility] [address] [address] [address] Jordan BlackwellGlobulin (S) [Mass/Vol]3.6 g/dLNormalThe [facility] HospitalComtrinity health [place] on above:Performed By: #### CBC #### [facility] [address] [address] [address] Jordan BlackwellGlucose [Mass/Vol]113 mg/dLCritically huqk49-549Kcc [facility] HospitalComment on above:Performed By: #### CBC #### [facility] [address] [address] [address] Jordan BlackwellPotassium [Moles/Vol]4.6 mmol/LNormal3.5-5.1The [facility] Comment on above:Performed By: #### CBC #### [facility] [address] [address] [address] Jordan BlackwellProtein [Mass/Vol]7.2 g/dLNormal6.4-8.2The [facility] Comment on above:Performed By: #### CBC #### [facility] [address] [place] [address] Dr. Jordan BlackwellSodium [Moles/Vol]130 mmol/LCritically sag431-680Zen [facility] HospitalComment on above:Performed By: #### CBC #### [facility] [address] [place] [address] Dr. Jordan BlackwellUrea nitrogen [Mass/Vol]17.0 mg/dLNormal7.0-18.0The [facility] HospitalComment on above:Performed By: #### CBC #### [facility] [address] [place] [address] Dr. Jordan Lopez nitrogen/Creatinine [Mass ratio]25.0 mg/mgNormalThe [facility] HospitalComment on above:Performed By: #### CBC #### [facility] [address] [place] [address] Dr. Jordan BlackwellTIBC ONLY- NO FEon 46-95-5789SUBT NROLVL780.0 ug/dLNormal 250.0-450.0The [facility] HospitalComment on above:Performed By: #### URCX #### [facility] [address] [place] [address] Dr. Jordan BlackwellTSHon 24-81-2465UCT1.703 uIU/mLNormal0.358-3.740The [facility] HospitalComment on above:Performed By: #### BMP #### [facility] [address] [place] [address] Dr. Yilan ChangVITAMIN B12on 77-83-7667Hfhqwcmus (Vitamin B12) [Mass/Vol]230.0 pg/nMNhcfyz351.0-986.0The [facility] HospitalComment on above:Performed By: #### URCX #### [facility] [address] [address] [address] Jordan BlackwellXR shoulder LT min 2V*on 77-90-7930UD shoulder LT min 2V*Normal [facility]Amb[facility] Visit Summaryon 01-46-8044Qeynqbwdvz Visit Summary GUERA SANCHEZ :1955 Visit Date:06/15/2022 Ambulatory Visit Instructions Your Care Team Attending Physician - GRANT CAMPBELL, Zainab Cooley Primary Care Physician - Ash Bernstein MD This Is Your Medications List amlodipine (amLODIPine [...] Iron deficiency anemia Lumbosacral stenosis Obesity Osteoporosis [facility] Surgery Office/Clinic Noteon 59-37-3996Vspknzz Surgery Office/Clinic NoteChief Complaint EGD and colonoscopy follow up HPI Staff 9 day post operative follow up post EGD with antral biopsy and colonoscopy with ascending colon polypectomy. History of Present Illness s/p EGD and colonoscopy for anemia, mild antral gastritis found, bx negative for H pylori; small hyperplastic ascending colon polyp removed, 2 small sigmoid polyps removed, but not retrieved; patientdoing well, no abdominal pain or blood in [...] mRNA BNT-162b2 vax 03/28/2020 Recorded 2022-05-04: TPV65 [facility] HospitalComment on above:Result Comment: Electronically Signed By: GRANT CAMPBELL, Zainab Hermosillo\Date and Time Signed: 06/15/22 15:11 EST Reminderson 60-22-2349Wyzjizcbz From: Ragini Hylton LPN To: N - Clinical; Sent: 06/15/2022 13:59:41 EST Show up: 05/09/2027 07:00:00 EST Subject: colonoscopy recall Due Date/Time: 06/07/2027 07:00:00 EST Reminder/Recall Patient is due for colonoscopy 06/07/2027 due to history of colonic polyp.Mikel [facility] HospitalPathology Noteon 26-24-7645Icczqkpaj Note [id number]:127NormMarietta Osteopathic ClinicOutside Colonoscopyon 82-64-6657Aztbaus Colonoscopy [id number]:127NoTriHealth Bethesda North HospitalPOINT OF CARE GLUCOSEon 95-34-6984Hawgphd [Mass/Vol]152 mg/dLCritically sqgy79-844OsyLancaster Municipal HospitalComment on above:Performed By: #### OSMO #### [facility] [address] [place] [address] Dr. Jordan Maxwell AUTO DIFFon 27-34-5339WRMT #0.1 103/ulNormal0.0-0.1[facility] HospitalComment on above:Performed By: #### CBC #### [facility] [address] [address] [address] Jordan Guillenphils/100 WBC (Bld)0.7 %Normal0.2-2.0[facility] Comment on above:Performed By: #### CBC #### [facility] [address] [place] [address] Dr. Jordan Paige #0.1 103/ulNormal0.0-0.7The [facility] HospitalComment on above: Performed By: #### CBC #### [facility] [address] [place] [address] Dr. Jordan Velázquezosinophils/100 WBC (Bld)1.6 %Normal0.9-7.0The [facility] Comment on above:Performed By: #### CBC #### [facility] [address] [place] [address] Dr. Jordan Velázquezrythrocyte distribution width (RBC) [Ratio]14.6 %Ynwgeh38.0-15.0 The [facility] HospitalComment on above:Performed By: #### CBC #### [facility] [address] [place] [address] Dr. Jordan BlackwellHematocrit (Bld) [Volume fraction]34.8 %Critically low36.0-48.0 [facility] HospitalComment on above:Performed By: #### CBC #### [facility] [address] [place] [address] Dr. Jordan BlackwellHemoglobin (Bld) [Mass/Vol]10.9 g/dLCritically low12.0-16.0The [facility] HospitalComment on above:Performed By: #### CBC #### [facility] [address] [place] [address] Dr. Jordan Garza #0.04 10e3/ulCritically high0.00-0.03The [facility] Comment on above:Performed By: #### CBC #### [facility] [address] [place] [address] Dr. Jordan Garza %0.5 %Normal0.0-0.5The [facility] HospitalComment on above: Performed By: #### CBC #### [facility] [address] [place] [address] Dr. Jordan Jordan #2.6 103/ulNormal1.2-3.8The [facility] HospitalComment on above:Performed By: #### CBC #### [facility] [address] [place] [address] Dr. Yilan ChangLymphocytes/100 WBC (Bld)34.8 %Ibaure25.5-60.0The [facility] HospitalComment on above:Performed By: #### CBC #### [facility] [address] [place] [address] Dr. Jordan Palacios DIFF REQNONormalThe [facility] HospitalComment on above: Performed By: #### CBC #### [facility] [address] [place] [address] Dr. Jordan Hughes (RBC) [Entitic mass]28.7 rkCrndkj98.7-34.0The [facility] HospitalComment on above:Performed By: #### CBC #### [facility] [address] [place] [address] Dr. Jordan Hughes (RBC) [Mass/Vol]31.3 g/aUNqpods09.9-35.2The [facility] HospitalComment on above:Performed By: #### CBC #### [facility] [address] [place] [address] Dr. Jordan Valentino (RBC) [Entitic vol]91.6 oHKffzkk86.0-99.0The [facility] HospitalComment on above:Performed By: #### CBC #### [facility] [address] [place] [address] Dr. Jordan Bragg #0.6 103/ulNormal0.3-0.8The [facility] HospitalComment on above:Performed By: #### CBC #### [facility] [address] [place] [address] Dr. Jordan Prideocytes/100 WBC (Bld)7.9 %Normal1.7-12.0The [facility] Comment on above:Performed By: #### CBC #### [facility] [address] [place] [address] Dr. Jordan Mckeon #4.0 103/ulNormal1.4-6.5The [facility] HospitalComment on above:Performed By: #### CBC #### [facility] [address] [place] [address] Dr. Jordan Pittmanutrophils/100 WBC (Bld)54.5 %Oglkgg58.0-75.0The [facility] HospitalComment on above:Performed By: #### CBC #### [facility] [address] [place] [address] Dr. Jordan Santiago mean volume (Bld) [Entitic vol]10.4 fLNormal9.5-13.5The [facility] HospitalComment on above:Performed By: #### CBC #### [facility] [address] [place] [address] Dr. Jordan BlackwellPLT252 103/ajQsfyhr779-172Prt [facility] HospitalComtrinity health [place] on above: Performed By: #### CBC #### [facility] [address] [place] [address] Dr. Jordan BlackwellRBC3.80 106/ulCritically low4.20-5.40The [facility] HospitalComment on above:Performed By: #### CBC #### [facility] [address] [place] [address] Dr. Jordan BlackwellWBC7.3 103/ulNormal4.0-11.0The [facility] HospitalComtrinity health [place] on above: Performed By: #### CBC #### [facility] [address] [place] [address] Dr. Jordan Kaiser 93-28-6799Dqihuvsufyv peptide B (Bld) [Mass/Vol]544.0 pg/mL Normal<=900.0The [facility] on above:Performed By: #### CBC #### [facility] [address] [place] [address] Dr. Jordan Chapin 87-71-6533Junb [Mass/Vol]36.0 ug/dLCritically low 50.0-170.0The [facility] on above:Performed By: #### BMP #### [facility] [address] [place] [address] Dr. Jordan BlackwellMAGNESIUMamor 90-49-2394Bnhlpsakw [Mass/Vol]1.4 mg/dLCritically low 1.8-2.4The [facility] HospitalComment on above:Performed By: #### CBC #### [facility] [address] [address] [address] Jordan Hutchins 14(COMP METB)on 72-48-5064Ihzmnoi [Mass/Vol]3.3 g/dL Critically low3.4-5.0The [facility] HospitalComment on above:Performed By: #### CBC #### [facility] [address] [place] [address] Dr. Jordan BlackwellAlbumin/Globulin [Mass ratio]0.9 {ratio}NormalThe [facility] HospitalComment on above:Performed By: #### CBC #### [facility] [address] [place] [address] Dr. Jordan Durham [Catalytic activity/Vol]124 U/LCritically vxti14-597Rhb [facility] HospitalComment on above:Performed By: #### CBC #### [facility] [address] [place] [address] Dr. Jordan Berumen [Catalytic activity/Vol]23 U/RHdpbtq11-30Paf [facility] HospitalComment on above:Performed By: #### CBC #### [facility] [address] [place] [address] Dr. Jordan Huertas gap [Moles/Vol]12.2 mmol/LNormalThe [facility] Comment on above:Performed By: #### CBC #### [facility] [address] [place] [address] Dr. Jordan Moore [Catalytic activity/Vol]23 U/FKyjywz87-29Brr [facility] HospitalComment on above:Performed By: #### CBC #### [facility] [address] [place] [address] Dr. Jordan BlackwellBilirubin [Mass/Vol]0.2 mg/dLNormal0.2-1.0The [facility] Comment on above:Performed By: #### CBC #### [facility] [address] [place] [address] Dr. Jordan BlackwellCalcium [Mass/Vol]9.2 mg/dLNormal8.5-10.1The [facility] Comment on above:Performed By: #### CBC #### [facility] [address] [address] [address] Jordan BlackwellChloride [Moles/Vol]100 mmol/GGrdjrd56-744Wum [facility] Comment on above:Performed By: #### CBC #### [facility] [address] [address] [address] Jordan BlackwellCO2 [Moles/Vol]28.3 mmol/XLgwnch33.0-32.0The [facility] Comment on above:Performed By: #### CBC #### [facility] [address] [address] [address] Jordan BlackwellCreatinine [Mass/Vol]0.76 mg/dLNormal0.55-1.02The [facility] HospitalComment on above:Performed By: #### CBC #### [facility] [address] [address] [address] Jordan VelázquezGFR-AF GRENADIAN>60Normal>=60The [facility] HospitalComment on above:Performed By: #### CBC #### [facility] [address] [address] [address] Jordan VelázquezGFR-NON AF GRENADIAN>60Normal>=60The [facility] HospitalComment on above:Performed By: #### CBC #### [facility] [address] [address] [address] Jordan BlackwellGlobulin (S) [Mass/Vol]3.6 g/dLNormalThe [facility] HospitalComment on above:Performed By: #### CBC #### [facility] [address] [address] [address] Jordan BlackwellGlucose [Mass/Vol]161 mg/dLCritically nkin11-113Rin [facility] HospitalComment on above:Performed By: #### CBC #### [facility] [address] [address] [address] Jordan BlackwellPotassium [Moles/Vol]4.5 mmol/LNormal3.5-5.1[facility] Comment on above:Performed By: #### CBC #### [facility] [address] [address] [address] Jordan BlackwellProtein [Mass/Vol]6.9 g/dLNormal6.4-8.2[facility] Comment on above:Performed By: #### CBC #### [facility] [address] [address] [address] Jordan BlackwellSodium [Moles/Vol]136 mmol/AVtpdzj305-018Ctd [facility] Comment on above:Performed By: #### CBC #### [facility] [address] [address] [address] Jordan BlackwellUrea nitrogen [Mass/Vol]10.0 mg/dLNormal7.0-18.0[facility] HospitalComment on above:Performed By: #### CBC #### [facility] [address] [address] [address] Jordan BlackwellUrea nitrogen/Creatinine [Mass ratio]13.2 mg/mgNormalThe [facility] HospitalComment on above:Performed By: #### CBC #### [facility] [address] [address] [address] Jordan Love for Procedure/Surgeryon 68-29-0926Vmdlakm for Procedure/[id number]#1.00CD:[address] [place], [place] [address]Facesheeton 76-07-3179Vcpjspwjh [id number]#1.00CD:127[facility] HospitalRAD - [facility] Reporton [id number] - CT Report [id number]#1.00CD:127[facility] HospitalXR shoulder LT min 2V*on 35-06-2543QV shoulder LT min 2V*[facility] ClinicAmbulatory Visit Summaryon 97-80-0591Atxjolsbzg Visit Summary GUERA SANCHEZ :1955 Visit Date:05/09/2022 Ambulatory Visit Instructions Your Care Team Attending Physician - GRANT CAMPBELL, Zainab Cooley Primary Care Physician - Ash Bernstein MD This Is Your Medications List Contact prescribing [...] Tablets By Mouth 2 times a day Contactprescribing physician if questions or concerns Unchanged folic [...] Iron deficiency anemia Lumbosacral stenosis Obesity Osteoporosis [facility] HospitalCBC AUTO DIFFon 98-72-5391ZBZR # 0.1 103/ulNormal0.0-0.1The [facility] HospitalComment on above:Performed By: #### URCX #### [facility] [address] [place] [address] Dr. Jordan Angelessophils/100 WBC (Bld)0.6 %Normal0.2-2.0The [facility] Comment on above:Performed By: #### URCX #### [facility] [address] [place] [address] Dr. Jordan Paige #0.3 103/ulNormal0.0-0.7The [facility] HospitalComment on above: Performed By: #### URCX #### [facility] [address] [place] [address] Dr. Jordan Velázquezosinophils/100 WBC (Bld)3.3 %Normal0.9-7.0The [facility] Comment on above:Performed By: #### URCX #### [facility] [address] [place] [address] Dr. Jordan Velázquezrythrocyte distribution width (RBC) [Ratio]15.4 %Critically high 11.0-15.0[facility] HospitalComment on above:Performed By: #### URCX #### [facility] [address] [place] [address] Dr. Jordan BlackwellHematocrit (Bld) [Volume fraction]27.6 %Critically low36.0-48.0 The [facility] HospitalComment on above:Performed By: #### URCX #### [facility] [address] [place] [address] Dr. Jordan BlackwellHemoglobin (Bld) [Mass/Vol]8.0 g/dLCritically low12.0-16.0The [facility] HospitalComment on above:Performed By: #### URCX #### [facility] [address] [place] [address] Dr. Jordan Garza #0.14 10e3/ulCritically high0.00-0.03The [facility] Comment on above:Performed By: #### URCX #### [facility] [address] [place] [address] Dr. Jordan Garza %1.6 %Critically high0.0-0.5The [facility] HospitalComment on above:Performed By: #### URCX #### [facility] [address] [place] [address] Dr. Jordan Jordan #2.7 103/ulNormal1.2-3.8The [facility] HospitalComment on above:Performed By: #### URCX #### [facility] [address] [place] [address] Dr. Jordan Hannamphocytes/100 WBC (Bld)32.1 %Xpqbqn39.5-60.0The [facility] HospitalComment on above:Performed By: #### URCX #### [facility] [address] [place] [address] Dr. Jordan BlackwellMANUAL DIFF REQNONormalThe [facility] HospitalComment on above: Performed By: #### URCX #### [facility] [address] [place] [address] Dr. Jordan Locke (RBC) [Entitic mass]29.4 bcElxnvp66.7-34.0The [facility] HospitalComment on above:Performed By: #### URCX #### [facility] [address] [address] [address] Jordan HughesHC (RBC) [Mass/Vol]29.0 g/dLCritically low29.9-35.2The [facility] HospitalComment on above:Performed By: #### URCX #### [facility] [address] [place] [address] Dr. Jordan HughesV (RBC) [Entitic vol]101.5 fLCritically high81.0-99.0The [facility] HospitalComment on above:Performed By: #### URCX #### [facility] [address] [place] [address] Dr. Jordan Bragg #0.7 103/ulNormal0.3-0.8The [facility] HospitalComment on above:Performed By: #### URCX #### [facility] [address] [place] [address] Dr. Jordan Prideocytes/100 WBC (Bld)7.9 %Normal1.7-12.0The [facility] Comment on above:Performed By: #### URCX #### [facility] [address] [place] [address] Dr. Jordan Mckeon #4.6 103/ulNormal1.4-6.5The [facility] HospitalComment on above:Performed By: #### URCX #### [facility] [address] [place] [address] Dr. Jordan Pittmanutrophils/100 WBC (Bld)54.5 %Cenvfi97.0-75.0The [facility] HospitalComment on above:Performed By: #### URCX #### [facility] [address] [place] [address] Dr. Jordan Garcialet mean volume (Bld) [Entitic vol]10.3 fLNormal9.5-13.5The [facility] HospitalComment on above:Performed By: #### URCX #### [facility] [address] [place] [address] Dr. Jordan BlackwellPLT310 103/nqQghgvd824-916Nnf [facility] HospitalComment on above: Performed By: #### URCX #### [facility] [address] [place] [address] Dr. Jordan BlackwellRBC2.72 106/ulCritically low4.20-5.40The [facility] HospitalComment on above:Performed By: #### URCX #### [facility] [address] [place] [address] Dr. Jordan BlackwellWBC8.5 103/ulNormal4.0-11.0The [facility] HospitalComment on above: Performed By: #### URCX #### [facility] [address] [place] [address] Dr. Jordan Olivarez Reportson [id number] Reports [id number]#1.00CD:[address] [place], [place] [address]Physician Referralon 02-28-4296Bihxdsnzd Referral [id number]#1.00CD:[address] [place], [place] [address]CBC AUTO DIFFon 09-27-6613XYWE #0.1 103/ulNormal0.0-0.1The [facility] HospitalComment on above:Performed By: #### CBC #### [facility] [address] [place] [address] Dr. Jordan BlackwellBasophils/100 WBC (Bld)0.6 %Normal0.2-2.0The [facility] Comment on above:Performed By: #### CBC #### [facility] [address] [place] [address] Dr. Jordan Paige #0.3 103/ulNormal0.0-0.7The [facility] HospitalComment on above: Performed By: #### CBC #### [facility] [address] [place] [address] Dr. Jordan Velázquezosinophils/100 WBC (Bld)3.3 %Normal0.9-7.0The [facility] Comment on above:Performed By: #### CBC #### [facility] [address] [address] [address] Jordan Velázquezrythrocyte distribution width (RBC) [Ratio]15.3 %Critically high 11.0-15.0[facility] HospitalComment on above:Performed By: #### CBC #### [facility] [address] [place] [address] Dr. Jordan BlackwellHematocrit (Bld) [Volume fraction]26.1 %Critically low36.0-48.0 The [facility] HospitalComment on above:Performed By: #### CBC #### [facility] [address] [place] [address] Dr. Jordan BlackwellHemoglobin (Bld) [Mass/Vol]8.0 g/dLCritically low12.0-16.0[facility] HospitalComment on above:Performed By: #### CBC #### [facility] [address] [place] [address] Dr. Jordan Garza #0.12 10e3/ulCritically high0.00-0.03[facility] Comment on above:Performed By: #### CBC #### [facility] [address] [place] [address] Dr. Jordan Garza %1.3 %Critically high0.0-0.5The [facility] HospitalComment on above:Performed By: #### CBC #### [facility] [address] [place] [address] Dr. Jordan Jordan #3.5 103/ulNormal1.2-3.8The [facility] HospitalComment on above:Performed By: #### CBC #### [facility] [address] [place] [address] Dr. Jordan Najerahocytes/100 WBC (Bld)38.9 %Bmtlok71.5-60.0[facility] HospitalComment on above:Performed By: #### CBC #### [facility] [address] [place] [address] Dr. Jordan GutierrezUAL DIFF REQNONormalThe [facility] HospitalComment on above: Performed By: #### CBC #### [facility] [address] [place] [address] Dr. Jordan Hughes (RBC) [Entitic mass]29.5 xvTpjkgn04.7-34.0The [facility] HospitalComment on above:Performed By: #### CBC #### [facility] [address] [place] [address] Dr. Jordan Hughes (RBC) [Mass/Vol]30.7 g/mNRbnmgk60.9-35.2The [facility] HospitalComment on above:Performed By: #### CBC #### [facility] [address] [place] [address] Dr. Jordan Hughes (RBC) [Entitic vol]96.3 zFCwqkgv61.0-99.0The [facility] HospitalComment on above:Performed By: #### CBC #### [facility] [address] [place] [address] Dr. Jordan Bragg #0.7 103/ulNormal0.3-0.8The [facility] HospitalComment on above:Performed By: #### CBC #### [facility] [address] [place] [address] Dr. Jordan Prideocytes/100 WBC (Bld)7.9 %Normal1.7-12.0The [facility] Comment on above:Performed By: #### CBC #### [facility] [address] [place] [address] Dr. Jordan Mckeon #4.3 103/ulNormal1.4-6.5The [facility] HospitalComment on above:Performed By: #### CBC #### [facility] [address] [place] [address] Dr. Jordan Pittmanutrophils/100 WBC (Bld)48.0 %Bqxjcr42.0-75.0The [facility] HospitalComment on above:Performed By: #### CBC #### [facility] [address] [place] [address] Dr. Jordan Garcialet mean volume (Bld) [Entitic vol]10.1 fLNormal9.5-13.5The [facility] HospitalComment on above:Performed By: #### CBC #### [facility] [address] [place] [address] Dr. Jordan BlackwellPLT299 103/ssGgionu254-923Ndm [facility] HospitalComment on above: Performed By: #### CBC #### [facility] [address] [place] [address] Dr. Jordan BlackwellRBC2.71 106/ulCritically low4.20-5.40The [facility] HospitalComment on above:Performed By: #### CBC #### [facility] [address] [place] [address] Dr. Jordan BlackwellWBC9.0 103/ulNormal4.0-11.0The [facility] HospitalComment on above: Performed By: #### CBC #### [facility] [address] [place] [address] Dr. Jordan BlackwellCULTURE URINEon 35-26-9155SOLTQFQ URINECulture Observations: LIGHT GROWTH OF MIXED GENITAL RUBÉN. NO POTENTIAL PATHOGENS SEEN.NormalThe [facility] HospitalComment on above:Performed By: #### URCX #### [facility] [facility] [address] [place] [address] Dr. Jordan BlackwellIROOdette [id number] [Mass/Vol]30.0 ug/dLCritically low 50.0-170.0The [facility]ing HospitalComment on above:Performed By: #### CBC #### [facility] [address] [place] [address] Dr. Jordan BlackwellMAGNESIUMon 52-03-7523Zrfknyems [Mass/Vol]1.2 mg/dLCritically low 1.8-2.4The [facility] HospitalComtrinity health [place] on above:Performed By: #### PRBC #### [facility] [address] [place] [address] Dr. Jordan BlackwellSODIUM RANDOM URINEon 36-88-9855Vkrrja (U) [Moles/Vol]55 mmol/L Qrlkre54-48Rhl [facility] HospitalComment on above:Performed By: #### CBC #### [facility] [address] [address] [address] Jordan Fagan RANDOM W/MICROSCOPICon [id number]Q SEENLancaster Municipal HospitalComment on above:Performed By: #### BMP #### [facility] [address] [address] [address] Jordan BlackwellBilirubin Ql (U)NegativeNormalNEGATIVESelect Medical [facility] on above:Performed By: #### BMP #### [facility] [address] [address] [address] Jordan BlackwellCASTNONE SEENNormalNONE SEENLancaster Municipal HospitalComment on above:Performed By: #### BMP #### [facility] [address] [address] [address] Jordan BlackwellClarity (U)CLEARNormalCLEARLancaster Municipal HospitalComment on above: Performed By: #### BMP #### [facility] [address] [address] [address] Jordan Culverlor (U)LT. YELLOWNormalYCommunity Memorial HospitalComment on above:Performed By: #### BMP #### [facility] [address] [address] [address] Jordan BlackwellCrystals LM Nom (Urine sed)NONE SEENNormalNONE SEENLancaster Municipal HospitalComment on above:Performed By: #### BMP #### [facility] [address] [address] [address] Ortega ChangEpithelial cells LM Ql (Urine sed)FEWAbnormalNONE SEEN /RAREThe [facility] HospitalComment on above:Performed By: #### BMP #### [facility] [address] [address] [address] Jordan Patelose Ql (U)NegativeNormalNEGATIVELancaster Municipal HospitalComment on above:Performed By: #### BMP #### [facility] [address] [address] [address] Jordan BlackwellHemoglobin Ql (U)NegativeNormalNEGATIVELancaster Municipal Hospital Comment on above:Performed By: #### BMP #### [facility] [address] [address] [address] Jordan BlackwellKetones Ql (U)NegativeNormalNEGATIVELancaster Municipal HospitalComment on above:Performed By: #### BMP #### [facility] [address] [address] [address] Jordan BlackwellLEUKOCYTESSMALLAbnormalNEGATIVELancaster Municipal HospitalComment on above:Performed By: #### BMP #### [facility] [address] [address] [address] Jordan BlackwellMUCOUSNONE SEENNormalNONE SEENLancaster Municipal HospitalComment on above:Performed By: #### BMP #### [facility] [address] [place] [address] Dr. Jordan BlackwellNitrite Ql (U)NegativeNormalNEGATIVELancaster Municipal HospitalComment on above:Performed By: #### BMP #### [facility] [address] [place] [address] Dr. Jordan BlackwellpH (U)6.0 [pH]Normal5-9L[facility] Municipal HospitalComment on above: Performed By: #### BMP #### [facility] [address] [place] [address] Dr. Jordan BlackwellRBCNONE SEENAbnormal0-2The [facility] HospitalComment on above: Performed By: #### BMP #### [facility] [address] [place] [address] Dr. Jordan BlackwellSPEC GRAVITY<=1.287Mhkddqal0.005-<=1.025[facility] Comment on above:Performed By: #### BMP #### [facility] [address] [place] [address] Dr. Jordan BlackwellUA PROTEINNegativeNormalNEGATIVE/ TRACEThe [facility] Comment on above:Performed By: #### BMP #### [facility] [address] [place] [address] Dr. Jordan Ramos Qn (U)0.2 {Claudia'U}/dLNormal0.2 - 1.0The [facility] HospitalComment on above:Performed By: #### BMP #### [facility] [address] [place] [address] Dr. Jordan WaggonerBC2-5AbnormalNONE SEENLancaster Municipal HospitalComment on above: Performed By: #### BMP #### [facility] [address] [address] [address] Jordan ShelbyURE URINEon [id number] URINECulture Observations: LIGHT GROWTH OF MIXED GENITAL RUBÉN. NO POTENTIAL PATHOGENS SEEN.NormalThe [facility] HospitalComment on above:Performed By: #### CBC #### [facility] [address] [place] [address] Dr. Jordan Fagan RANDOM W/MICROSCOPICon 29-30-2952MFMTAFEUCFJM SEENNormalNONE SEENLancaster Municipal HospitalComment on above:Performed By: #### UAMIC #### [facility] [address] [place] [address] Dr. Jordan Gill Ql (U)NegativeNormalNEGATIVEThe [facility] Comment on above:Performed By: #### UAMIC #### [facility] [address] [place] [address] Dr. Jordan BlackwellCASTELISHA SEENNormalNONE SEENThe [facility] Hospitalment on above:Performed By: #### UAMIC #### [facility] [address] [address] [address] Jordan Sloan (U)SL CLOUDYAbnormalCLEARThe [facility] HospitalComment on above:Performed By: #### UAMIC #### [facility] [address] [place] [address] Dr. Jordan Bhatt (U)LT. YELLOWNormalYELLOWLancaster Municipal HospitalComment on above:Performed By: #### UAMIC #### [facility] [address] [place] [address] Dr. Jordan Larsenystals LM Nom (Urine sed)NONE SEENNormalNONE SEENThe [facility] HospitalComment on above:Performed By: #### UAMIC #### [facility] [address] [address] [address] Ortega ChangEpithelial cells LM Ql (Urine sed)FEWAbnormalNONE SEEN /RARELancaster Municipal HospitalComment on above:Performed By: #### UAMIC #### [facility] [address] [address] [address] Jordan BlackwellGlucose Ql (U)NegativeNormalNEGATIVELancaster Municipal HospitalComment on above:Performed By: #### UAMIC #### [facility] [address] [address] [address] Jordan BlackwellHemoglobin Ql (U)TRACE-INTACTAbnormalNEGATIVELancaster Municipal HospitalComment on above:Performed By: #### UAMIC #### [facility] [address] [place] [address] Dr. Jordan BlackwellKetones Ql (U)NegativeNormalNEGATIVELancaster Municipal HospitalComment on above:Performed By: #### UAMIC #### [facility] [address] [address] [address] Jordan BlackwellLEUKOCYTESTRACEAbnormalNEGATIVELancaster Municipal HospitalComtrinity health [place] on above:Performed By: #### UAMIC #### [facility] [address] [address] [address] Jordan BlackwellMUCOUSNONE SEENNormalNONE SEENLancaster Municipal HospitalComtrinity health [place] on above:Performed By: #### UAMIC #### [facility] [address] [address] [address] Jordan BlackwellNitrite Ql (U)NegativeNormalNEGATIVELancaster Municipal HospitalComment on above:Performed By: #### UAMIC #### [facility] [address] [address] [address] Jordan BlackwellpH (U)7.0 [pH]Normal5-9L[facility] HospitalComment on above: Performed By: #### UAMIC #### [facility] [address] [address] [address] Jordan CabanSgmzgZJY0-8Fjzqmy9-4Yem [facility] HospitalComment on above:Performed By: #### UAMIC #### [facility] [address] [place] [address] Dr. Jordan BlackwellSPEC GRAVITY1.317Frdidq1.005-<=1.025The [facility] HospitalComment on above:Performed By: #### UAMIC #### [facility] [address] [place] [address] Dr. Jordan Fagan PROTEINTRACENormalNEGATIVE/ TRACEThe [facility] HospitalComment on above:Performed By: #### UAMIC #### [facility] [address] [place] [address] Dr. Jordan Saucedobilinogen Qn (U)0.2 {Claudia'U}/dLNormal0.2 - 1.0The [facility] HospitalComment on above:Performed By: #### UAMIC #### [facility] [address] [place] [address] Dr. Jordan BlackwellWBC0-2AbnormalNONE SEENThe [facility] HospitalComment on above: Performed By: #### UAMIC #### [facility] [address] [place] [address] Dr. Jordan Maxwell AUTO DIFFon [id number] #0.0 103/ulNormal0.0-0.1The [facility] HospitalComment on above:Performed By: #### CBC #### [facility] [address] [place] [address] Dr. Jordan Angelessophils/100 WBC (Bld)0.3 %Normal0.2-2.0The [facility] Comment on above:Performed By: #### CBC #### [facility] [address] [place] [address] Dr. Jordan Paige #0.0 103/ulNormal0.0-0.7The [facility] HospitalComment on above: Performed By: #### CBC #### [facility] [address] [place] [address] Dr. Yilan ChangEosinophils/100 WBC (Bld)0.1 %Critically low0.9-7.0The [facility] Hospitalment on above:Performed By: #### CBC #### [facility] [address] [place] [address] Dr. Jordan Velázquezrythrocyte distribution width (RBC) [Ratio]14.1 %Zccujf19.0-15.0 The [facility] HospitalComment on above:Performed By: #### CBC #### [facility] [address] [place] [address] Dr. Jordan BlackwellHematocrit (Bld) [Volume fraction]28.8 %Critically low36.0-48.0 The [facility] HospitalComment on above:Performed By: #### CBC #### [facility] [address] [place] [address] Dr. Jordan BlackwellHemoglobin (Bld) [Mass/Vol]9.6 g/dLCritically low12.0-16.0The [facility] HospitalComment on above:Performed By: #### CBC #### [facility] [address] [place] [address] Dr. Jordan Garza #0.06 10e3/ulCritically high0.00-0.03The [facility] Comment on above:Performed By: #### CBC #### [facility] [address] [place] [address] Dr. Jordan Garza %0.6 %Critically high0.0-0.5The [facility] HospitalComment on above:Performed By: #### CBC #### [facility] [address] [place] [address] Dr. Jordan NajeraH #3.4 103/ulNormal1.2-3.8The [facility] HospitalComment on above:Performed By: #### CBC #### [facility] [address] [place] [address] Dr. Jordan Hannamphocytes/100 WBC (Bld)31.8 %Mhktss45.5-60.0The [facility] Hospitalment on above:Performed By: #### CBC #### [facility] [address] [place] [address] Dr. Jordan GutierrezUAL DIFF REQNONormalThe [facility] HospitalComment on above: Performed By: #### CBC #### [facility] [address] [place] [address] Dr. Jordan Hughes (RBC) [Entitic mass]30.1 psUjvorq03.7-34.0The [facility] HospitalComment on above:Performed By: #### CBC #### [facility] [address] [place] [address] Dr. Jordan Hughes (RBC) [Mass/Vol]33.3 g/cLDbncsb39.9-35.2The [facility] HospitalComment on above:Performed By: #### CBC #### [facility] [address] [place] [address] Dr. Jordan Hughes (RBC) [Entitic vol]90.3 eARtqcao82.0-99.0The [facility] HospitalComment on above:Performed By: #### CBC #### [facility] [address] [place] [address] Dr. Jordan Bragg #0.7 103/ulNormal0.3-0.8The [facility] HospitalComment on above:Performed By: #### CBC #### [facility] [address] [place] [address] Dr. Jordan Prideocytes/100 WBC (Bld)6.7 %Normal1.7-12.0The [facility] Comment on above:Performed By: #### CBC #### [facility] [address] [place] [address] Dr. Jordan Mckeon #6.5 103/ulNormal1.4-6.5The [facility] HospitalComment on above:Performed By: #### CBC #### [facility] [address] [place] [address] Dr. Jordan Pittmanutrophils/100 WBC (Bld)60.5 %Cmrxdn01.0-75.0The [facility] HospitalComment on above:Performed By: #### CBC #### [facility] [address] [address] [address] Jordan Santiago mean volume (Bld) [Entitic vol]10.2 fLNormal9.5-13.5The [facility] HospitalComment on above:Performed By: #### CBC #### [facility] [address] [address] [address] Jordan BlackwellPLT270 103/ebNrlhwk904-516Dph [facility] HospitalComment on above: Performed By: #### CBC #### [facility] [address] [address] [address] Jordan BlackwellRBC3.19 106/ulCritically low4.20-5.40The [facility] HospitalComment on above:Performed By: #### CBC #### [facility] [address] [place] [address] Dr. Jordan BlackwellWBC10.7 103/ulNormal4.0-11.0The [facility] HospitalComment on above:Performed By: #### CBC #### [facility] [address] [place] [address] Dr. Jordan Cabrera THYROXINE INDEX T7on 94-40-2062YQL3.04Vrvnus8.30-4.50The [facility] HospitalComtrinity health [place] on above:Performed By: #### UAMIC #### [facility] [address] [place] [address] Dr. Jordan BlackwellT3U34.0 %Xehjld00.0-39.0The [facility] HospitalComment on above: Performed By: #### UAMIC #### [facility] [address] [place] [address] Dr. Jordan BlackwellT4 [Mass/Vol]10.00 ug/dLNormal4.80-13.90The [facility] Comment on above:Performed By: #### UAMIC #### [facility] [address] [place] [address] Dr. Jordan BlackwellGLYCOHEMOGLOBIN A1Con 83-17-3214MOY RECOMMENDATIONSEE BELOWNormal The [facility] HospitalComment on above:Result Comment: ADA RECOMMENDED LIMIT 4.0 - 6.0 ADA THERAPEUTIC TARGET < 7.0 ACTION SUGGESTED > 7.0Performed By: #### BMP #### [facility] [address] [place] [address] Dr. Jordan BlackwellGlucose [Mass/Vol]114 mg/dLCentervilleComment on above:Performed By: #### BMP #### [facility] [address] [place] [address] Dr. Jordan BlackwellHbA1c (Bld) [Mass fraction]5.6 %Normal4.5-6.2The [facility] HospitalComment on above:Performed By: #### BMP #### [facility] [address] [place] [address] Dr. Jordan Chapin [id number] [Mass/Vol]40.0 ug/dLCritically low 50.0-170.0The [facility] HospitalComment on above:Performed By: #### UAMIC #### [facility] [address] [place] [address] Dr. Jordan BlackwellLIPID PROFILEon [id number]-HDL RATIO NORMSWooster Community HospitalComment on above:Result Comment: 3.3 - 4.4 LOW RISK 4.4 - 7.1 AVERAGE RISK 7.1 - 11.0 MODERATE RISK >11.0 HIGH RISKPerformed By: #### UAMIC #### [facility] [address] [place] [address] Dr. Jordan BlackwellCholesterol [Mass/Vol]121 mg/dLNormal<=200The [facility] Comment on above:Performed By: #### UAMIC #### [facility] [address] [place] [address] Dr. Jordan BlackwellCholesterol in HDL [Mass/Vol]64 mg/dLCritically zrzs05-26Kyc [facility] HospitalComment on above:Performed By: #### UAMIC #### [facility] [address] [place] [address] Dr. Jordan BlackwellCholesterol in LDL [Mass/Vol]36.6 mg/dLCentervilleComment on above:Performed By: #### UAMIC #### [facility] [address] [address] [address] Jordan BlackwellCholesterol.total/Cholesterol in HDL [Mass ratio]1.9 {ratio} NormalLancaster Municipal HospitalComment on above:Performed By: #### UAMIC #### [facility] [address] [address] [address] Jordan AlegreL NORMAL> or = 60 mg/dl - LOW CARDIOVASCULAR RISK <40 mg/dl - HIGH CARDIOVASCULAR RISKCentervilleComment on above:Performed By: #### UAMIC #### [facility] [address] [place] [address] Dr. Jordan Enrique CALC NORMALSEE BELOWCentervilleComment on above:Result Comment: <100 mg/dl OPTIMAL 100 - 129 mg/dl NEAR OR ABOVE OPTIMAL 130 - 159 mg/dl BORDERLINE HIGH 160 - 189 mg/dl HIGH >190 mg/dl VERY HIGH Performed By: #### UAMIC #### [facility] [address] [place] [address] Dr. Jordan BlackwellTriglyceride [Mass/Vol]102 mg/dLNormal<=150[facility] Comment on above:Performed By: #### UAMIC #### [facility] [address] [place] [address] Dr. Jordan BlackwellVLDL CALC20.4 mg/dLNoGuernsey Memorial HospitalComment on above: Performed By: #### UAMIC #### [facility] [address] [place] [address] Dr. Jordan BlackwellMAGNESIUMon 19-32-6388Bdagvbnam [Mass/Vol]0.9 mg/dLCritically low 1.8-2.4ThOhioHealth Dublin Methodist HospitalComment on above:Performed By: #### UAMIC #### [facility] [address] [place] [address] Dr. Jordan BlackwellPROF 14(COMP METB)on [id number] [Mass/Vol]3.4 g/dLNormal 3.4-5.0The [facility] HospitalComment on above:Performed By: #### UAMIC #### [facility] [address] [address] [address] Jordan BlackwellAlbumin/Globulin [Mass ratio]0.9 {ratio}NormalThe [facility] HospitalComment on above:Performed By: #### UAMIC #### [facility] [address] [address] [address] Jordan AngelaP [Catalytic activity/Vol]98 U/QWyvmao86-327Hct [facility] HospitalComment on above:Performed By: #### UAMIC #### [facility] [address] [address] [address] Jordan Berumen [Catalytic activity/Vol]12 U/LCritically iju02-81Rhf [facility] HospitalComment on above:Performed By: #### UAMIC #### [facility] [address] [address] [address] Jordan Kayeon gap [Moles/Vol]15.5 mmol/LNormalThe [facility] Comment on above:Performed By: #### UAMIC #### [facility] [address] [address] [address] Jordan BlackwellAST [Catalytic activity/Vol]15 U/ZQfzgyo96-78Dow [facility] HospitalComment on above:Performed By: #### UAMIC #### [facility] [address] [address] [address] Jordan BlackwellBilirubin [Mass/Vol]0.2 mg/dLNormal0.2-1.0The [facility] Comment on above:Performed By: #### UAMIC #### [facility] [address] [address] [address] Jordan BlackwellCalcium [Mass/Vol]9.4 mg/dLNormal8.5-10.1The [facility] Comment on above:Performed By: #### UAMIC #### [facility] [address] [address] [address] Jordan BlackwellChloride [Moles/Vol]93 mmol/LCritically vcz09-709Soz [facility] HospitalComment on above:Performed By: #### UAMIC #### [facility] [address] [address] [address] Jordan BlackwellCO2 [Moles/Vol]24.3 mmol/BYpjrug75.0-32.0The [facility] Comment on above:Performed By: #### UAMIC #### [facility] [address] [address] [address] Jordan BlackwellCreatinine [Mass/Vol]0.80 mg/dLNormal0.55-1.02[facility] HospitalComment on above:Performed By: #### UAMIC #### [facility] [address] [address] [address] Jordan VelázquezGFR-AF GRENADIAN>60Normal>=60The [facility] HospitalComment on above:Performed By: #### UAMIC #### [facility] [address] [address] [address] Jordan VelázquezGFR-NON AF GRENADIAN>60Normal>=60The [facility] HospitalComment on above:Performed By: #### UAMIC #### [facility] [address] [address] [address] Jordan BlackwellGlobulin (S) [Mass/Vol]3.7 g/dLNormalThe [facility] HospitalComment on above:Performed By: #### UAMIC #### [facility] [address] [address] [address] Jordan BlackwellGlucose [Mass/Vol]210 mg/dLCritically jdhq95-356Mkr [facility] HospitalComment on above:Performed By: #### UAMIC #### [facility] [address] [address] [address] Jordan BlackwellPotassium [Moles/Vol]3.8 mmol/LNormal3.5-5.1The [facility] Comment on above:Performed By: #### UAMIC #### [facility] [address] [address] [address] Jordan BlackwellProtein [Mass/Vol]7.1 g/dLNormal6.4-8.2The [facility] Comment on above:Performed By: #### UAMIC #### [facility] [address] [address] [address] Jordan BlackwellSodium [Moles/Vol]129 mmol/LCritically hrq540-576Qog [facility] HospitalComment on above:Performed By: #### UAMIC #### [facility] [address] [place] [address] Dr. Jordan BlackwellUrea nitrogen [Mass/Vol]17.0 mg/dLNormal7.0-18.0The [facility] HospitalComment on above:Performed By: #### UAMIC #### [facility] [address] [place] [address] Dr. Jordan BlackwellUrea nitrogen/Creatinine [Mass ratio]21.2 mg/mgNoGuernsey Memorial HospitalComment on above:Performed By: #### UAMIC #### [facility] [address] [place] [address] Dr. Jordan Rosales 50-11-7080PAP8.870 uIU/mLNormal0.358-3.740The [facility] HospitalComment on above:Performed By: #### UAMIC #### [facility] [address] [place] [address] Dr. Jordan Granados LEUKOREDUCEDon 60-87-5104AFH and Rh group Nom (Bld)Cross Match Result Compatible Unit Blood Type O Pos Unit Number [id number] Status Information Transfused Product ID Red Blood Cells Product Code [id number] Cross Match Result Compatible Unit Blood Type O Pos Unit Number [id number] Status Information Transfused Product ID Red Blood Cells Product Code [id number] Memorial HospitalComment on above:Performed By: #### PRBC #### [facility] [address] [place] [address] Dr. Jordan Sharma Metabolic Panelon [id number] gap [Moles/Vol]12.0 mmol/LNormal6.0-15.0[facility] - AndersonComment on above:Performed By: #### BMP ####[facility] [place] [address] USACalcium [Mass/Vol]8.8 mg/dLNormal8.2-10.2FCleveland Clinic South Pointe HospitalComment on above:Performed By: #### BMP ####[address] [id number] USAChloride [Moles/Vol]99 mmol/LNormal 95-114[facility] - AndersonComment on above:Performed By: #### BMP ####[id number] USACO2 [Moles/Vol]25.3 mmol/BWncotj19.0-30.0[facility] - AndersonComment on above:Performed By: #### BMP ####[id number] USACreatinine [Mass/Vol]0.88 mg/dLNormal0.44-1.03 [facility] - AndersonComment on above:Performed By: #### BMP ####[id number] [place] Creatinine Clr Calc Pkottvut03.08Marietta Osteopathic ClinicComment on above:Result Comment: PERFORMED BY:[address] [place], [place] [id number] MEDICAL ANDRE SINGER M.D.Performed By: #### BMP ####[id number] USAEstimated GFR ( Brenda> 60[facility] Osteopathic ClinicComment on above:Result Comment: GFR estimated reference range: According to KDOQI guidelines, <60 ml/min/1.73m2 is sufficient to diagnose a patient with chronic kidney disease.Performed By: #### BMP ####[address] [address] [place] Estimated GFR (Non- Am> 60[facility] Osteopathic ClinicComment on above:Performed By: #### BMP ####[id number] USAGlucose [Mass/Vol]145 mg/wGAiju19-782SxzdglnnzOur Lady Of Mercy Hospital - AndersonComment on above:Result Comment: Random Glucose Reference Range is dependent on time and content of last meal. Glucose of more than 200 mg/dL in a nonstressed, ambulatory subject supports the diagnosis of Diabetes Mellitus. ADA recommended reference rangePerformed By: #### BMP ####[facility] [address] [place] [address] USAPotassium [Moles/Vol] 4.3 mmol/LNormal3.5-5.1FCleveland Clinic South Pointe HospitalComment on above: Performed By: #### BMP ####[facility] Vpm[address] [place] [address] USASodium [Moles/Vol]132 mmol/NMiz324-518UgrgexvlmOur Lady Of Mercy Hospital - AndersonComment on above:Performed By: #### BMP ####[facility] Gon[address] [place] [address] USAUrea nitrogen [Mass/Vol]11 mg/dLNoal9-23Our [facility] Mer[facility] Hospital - AndersonComment on above: Performed By: #### BMP ####[facility] S[address] [place] [address] USACreatinine and Glomerular filtration rate.predicted panel (S/P/Bld)Ordered By: Ryan Ibrahim on 26-20-3776Miqxsiupdt [Mass/Vol]0.88 mg/dL0.44-1.03[facility] - AndersonEstimated glomerular filtration rate (GFR) non- AmericanOrdered By: Ryan Ibrahim on 25-53-0748QSP/1.73 sq M.predicted among non-blacks MDRD (S/P/Bld) [Vol rate/Area]> 60 mL/MinOur Lady Of Mercy Hospital - AndersonGlucose Glucometer (BldC) [Mass/Vol]Ordered By: Ryan Ibrahim on 40-91-1642Kdyvnpy [Mass/Vol]162 mg/dLOur Lady Of Mercy Hospital - Anderson Comment on above:Random Glucose Reference Range is dependent on time and content of last meal. Glucose of more than 200 mg/dL in a nonstressed, ambulatory subject supports the diagnosis of Diabetes Mellitus.Glucose Poct Glucometerson 63-36-5239Mzjuenq6Bkx1: Cleaned [facility] Comment on above:Result Comment: PERFORMED BY:[facility] [place], [place] [phone] MEDICAL DIRECTORKIMBERLYN SINGER M.D.Performed By: #### GLULS ####Point of Care testing, Glucose [Mass/Vol]162 mg/dLNoKettering Health Washington TownshipComment on above:Result Comment: Random Glucose Reference Range is dependent on time and content of last meal. Glucose of more than 200 mg/dL in a nonstressed, ambulatory subject supports the diagnosis of Diabetes Mellitus.Performed By: #### GLULS ####Point of Care testing,No Panel InformationOrdered By: Ryan Ibrahim on 11-00-1757Zsccyld Glucose CommentGlu2: cleaned [facility] HospitalEstimated GFR ()> 60 mL/MinOur Lady Of Mercy Hospital - AndersonComment on above:GFR estimated reference range: According to KDOQI guidelines, <60 ml/min/1.73m2 is sufficient todiagnose a patient with chronic kidney disease.Pharmacy Creatinine Clearance (Chem75.08[facility] Centererum or plasma anion gap determinationOrdered By: Ryan Ibrahim on 82-77-1772Zaygr gap [Moles/Vol]12.0 mmol/L6.0-15.0[facility] Centererum or plasma calcium measurement (mass/volume)Ordered By: Ryan Ibrahim on 64-91-0536Qnaerdf [Mass/Vol]8.8 mg/dL8.2-10.2FMary Rutan Hospitalerum or plasma chloride measurement (moles/volume)Ordered By: Ryan Ibrahim on 26-30-5059Newzcajq [Moles/Vol]99 mmol/N45-549CtaxzvfbbSamaritan North Health Centererum or plasma glucose measurement (mass/volume)Ordered By: Ryan Ibrahim on 51-94-1065Vkjyqmj [Mass/Vol]145 mg/nX45-665VsqryiincOur Lady Of Mercy Hospital - Anderson Comment on above:ADA recommended reference rangeRandom Glucose Reference Range is dependent on time and content of last meal. Glucose of more than 200 mg/dL in a nonstressed, ambulatory subject supports the diagnosisof Diabetes Mellitus. Serum or plasma potassium measurement (moles/volume)Ordered By: Ryan Ibrahim on 80-46-8769Pboyrhyho [Moles/Vol]4.3 mmol/L3.5-5.1FMary Rutan Hospitalerum or plasma sodium measurement (moles/volume)Ordered By: Ryan Ibrahim on 88-70-9412Ysoegq [Moles/Vol]132 mmol/P564-650ZyupgpopwSamaritan North Health Centererum or plasma total carbon dioxide measurement (moles/volume)Ordered By: Ryan Ibrahim on 52-91-8598BR3 [Moles/Vol]25.3 mmol/L22.0-30.0[facility] Centererum or plasma urea nitrogen measurement (mass/volume)Ordered By: Ryan Ibrahim on 55-29-7506Fhik nitrogen [Mass/Vol]11 mg/dL9-23[facility] - AndersonGlucose Poct Glucometerson 51-51-1227Fzeoqhn3Awd6: Cleaned MeterMarietta Osteopathic ClinicComment on above:Performed By: #### GLULS ####Point of Care testing,Hstcklo2SFBI ISAIAS RUELAS/RNNoal [facility] Hospital - AndersonComment on above:Result Comment: PERFORMED BY:[place] [address], [place] [phone] MEDICAL DIRECTORKIMBERLYN SINGER M.D.Performed By: #### GLULS ####Point of Care testing,Glucose [Mass/Vol]165 mg/dLNoKettering Health Washington TownshipComment on above:Result Comment: Random Glucose Reference Range is dependent on time and content of last meal. Glucose of more than 200 mg/dL in a nonstressed, ambulatory subject supports the diagnosis of Diabetes Mellitus. Performed By: #### GLULS ####Point of Care testing,Xdhxcpz9Zil4: Cleaned Meter [facility] Osteopathic ClinicComment on above:Result Comment: PERFORMED BY:[place] [address], [place] [phone] MEDICAL DIRECTORKIMBERLYN SINGER M.D.Performed By: #### GLULS ####Point of Care testing,Glucose [Mass/Vol]147 mg/dLNormalFirelands Regional Medical CenterComment on above:Result Comment: Random Glucose Reference Range is dependent on time and content of last meal. Glucose of more than 200 mg/dL in a nonstressed, ambulatory subject supports the diagnosis of Diabetes Mellitus.Performed By: #### GLULS ####Point of Care testing,Glucose [Mass/Vol] 157 mg/dLMarietta Osteopathic ClinicComment on above:Result Comment: Random Glucose Reference Range is dependent on time and content of last meal. Glucose of more than 200 mg/dL in a nonstressed, ambulatory subject supports the diagnosis of Diabetes Mellitus.PERFORMED BY:[place] [address], [place] [phone] MEDICAL DIRECTORKIMBERLYN SINGER M.D.Performed By: #### GLULS ####Point of Care testing, Riiaxhk8Yeq1: Cleaned MeterNoKettering Health Washington TownshipComment on above:Result Comment: PERFORMED BY:[place] [address], [place] [phone] MEDICAL DIRECTORKIMBERLYN SINGER M.D. Performed By: #### GLULS ####Point of Care testing,Glucose [Mass/Vol]232 mg/dL [facility] ClinicComment on above:Result Comment: Random Glucose Reference Range is dependent on time and content of last meal. Glucose of more than 200 mg/dL in a nonstressed, ambulatory subject supports the diagnosis of Diabetes Mellitus.Performed By: #### GLULS ####Point of Care testing,No Panel InformationOrdered By: Ryan Ibrahim on 86-27-7988Okdxqea Glucose #2 CommentWill notify /DavidCleveland Clinic South Pointe HospitalXR shoulder LT min 2V*on 98-69-0038TH shoulder LT min 2V*[facility] Osteopathic ClinicGlucose Poct Glucometerson 45-44-2131Osfijha [Mass/Vol]225 mg/dLNoUniversity Hospitals Samaritan Medical CenterComment on above:Result Comment: Random Glucose Reference Range is dependent on time and content of last meal. Glucose of more than 200 mg/dL in a nonstressed, ambulatory subject supports the diagnosis of Diabetes Mellitus.PERFORMED BY:[place] [address], [place] [phone] MEDICAL DIRECTORKIMBERLYN SINGER M.D. Performed By: #### GLULS ####Point of Care testing,Mwvwpvw7Inv5: Cleaned [facility] HospitalComment on above:Performed By: #### GLULS ####Point of Care testing,Dupvflc9IAJS NOTIFY DR/RNMarietta Osteopathic ClinicComment on above:Result Comment: PERFORMED BY:[place] [address], [place] [phone] MEDICAL DIRECTORKIMBERLYN SINGER M.D.Performed By: #### GLULS ####Point of Care testing, Glucose [Mass/Vol]152 mg/dLMarietta Osteopathic ClinicComment on above:Result Comment: Random Glucose Reference Range is dependent on time and content of last meal. Glucose of more than 200 mg/dL in a nonstressed, ambulatory subject supports the diagnosis of Diabetes Mellitus.Performed By: #### GLULS ####Point of Care testing,Qoatcil3Mej6: Cleaned [facility] CenterComment on above:Result Comment: PERFORMED BY:[place] [address], [place] [phone] MEDICAL DIRECTORKIMBERLYN SINGER M.D.Performed By: #### GLULS ####Point of Care testing,Glucose [Mass/Vol]266 mg/dLMarietta Osteopathic Clinic Comment on above:Result Comment: Random Glucose Reference Range is dependent on time and content of last meal. Glucose of more than 200 mg/dL in a nonstressed, ambulatory subject supports the diagnosis of Diabetes Mellitus.Performed By: #### GLULS ####Point of Care testing,Piyairt4Yrj8: Cleaned [facility] CenterComment on above:Result Comment: PERFORMED BY:[place] [address], [place] [phone] MEDICAL DIRECTORKIMBERLYN SINGER M.D.Performed By: #### GLULS ####Point of Care testing,Glucose [Mass/Vol]174 mg/dLMarietta Osteopathic Clinic Comment on above:Result Comment: Random Glucose Reference Range is dependent on time and content of last meal. Glucose of more than 200 mg/dL in a nonstressed, ambulatory subject supports the diagnosis of Diabetes Mellitus.Performed By: #### GLULS ####Point of Care testing,Glucose Poct Glucometerson 03-24-2022 Glucose [Mass/Vol]170 mg/dLMarietta Osteopathic ClinicComment on above:Result Comment: Random Glucose Reference Range is dependent on time and content of last meal. Glucose of more than 200 mg/dL in a nonstressed, ambulatory subject supports the diagnosis of Diabetes Mellitus.PERFORMED BY:[place] [address], [place] [phone] MEDICAL DIRECTORKIMBERLYN SINGER M.D.Performed By: #### GLULS ####Point of Care testing,Csnpiri0Mcr1: Cleaned [facility] CenterComment on above:Result Comment: PERFORMED BY:[place] [address], [place] [phone] MEDICAL ANDRE SINGER M.D.Performed By: #### GLULS ####Point of Care testing,Glucose [Mass/Vol]182 mg/dLMarietta Osteopathic Clinic Comment on above:Result Comment: Random Glucose Reference Range is dependent on time and content of last meal. Glucose of more than 200 mg/dL in a nonstressed, ambulatory subject supports the diagnosis of Diabetes Mellitus.Performed By: #### GLULS ####Point of Care testing,Obqwdms1Ugy5: Cleaned [facility] CenterComment on above:Result Comment: PERFORMED BY:[place] [address], [place] [phone] MEDICAL ANDRE SINGER M.D.Performed By: #### GLULS ####Point of Care testing,Glucose [Mass/Vol]132 mg/dLMarietta Osteopathic Clinic Comment on above:Result Comment: Random Glucose Reference Range is dependent on time and content of last meal. Glucose of more than 200 mg/dL in a nonstressed, ambulatory subject supports the diagnosis of Diabetes Mellitus.Performed By: #### GLULS ####Point of Care testing,Glucose [Mass/Vol]208 mg/dLMarietta Osteopathic ClinicComment on above:Result Comment: Random Glucose Reference Range is dependent on time and content of last meal. Glucose of more than 200 mg/dL in a nonstressed, ambulatory subject supports the diagnosis of Diabetes Mellitus.PERFORMED BY:[place] [address], [place] [phone] MEDICAL DIRECTORKIMBERLYN SINGER M.D.Performed By: #### GLULS ####Point of Care testing,Glucose Poct Glucometerson 03-23-2022 Flctkaz2Bgy3: Cleaned MeterMarietta Osteopathic ClinicComment on above:Result Comment: PERFORMED BY:[place] [address], [place] [phone] MEDICAL DIRECTORKIMBERLYN SINGER M.D. Performed By: #### GLULS ####Point of Care testing,Glucose [Mass/Vol]192 mg/dL [facility] ClinicComment on above:Result Comment: Random Glucose Reference Range is dependent on time and content of last meal. Glucose of more than 200 mg/dL in a nonstressed, ambulatory subject supports the diagnosis of Diabetes Mellitus.Performed By: #### GLULS ####Point of Care testing,Glucose [Mass/Vol]136 mg/dLMarietta Osteopathic Clinic Comment on above:Result Comment: Random Glucose Reference Range is dependent on time and content of last meal. Glucose of more than 200 mg/dL in a nonstressed, ambulatory subject supports the diagnosis of Diabetes Mellitus.PERFORMED BY:[place] [address], [place] [phone] MEDICAL DIRECTORKIMBERLYN SINGER M.D.Performed By: #### GLULS ####Point of Care testing,Glucose [Mass/Vol]202 mg/dLMarietta Osteopathic ClinicComment on above:Result Comment: Random Glucose Reference Range is dependent on time and content of last meal. Glucose of more than 200 mg/dL in a nonstressed, ambulatory subject supports the diagnosis of Diabetes Mellitus.PERFORMED BY:[place] [address], [place] [phone] MEDICAL DIRECTORKIMBERLYN SINGER M.D.Performed By: #### GLULS ####Point of Care testing,Glucose [Mass/Vol]180 mg/dLMarietta Osteopathic ClinicComment on above:Result Comment: Random Glucose Reference Range is dependent on time and content of last meal. Glucose of more than 200 mg/dL in a nonstressed, ambulatory subject supports the diagnosis of Diabetes Mellitus.PERFORMED BY:[place] [address], [place] [phone] MEDICAL DIRECTORKIMBERLYN SINGER M.D.Performed By: #### GLULS ####Point of Care testing,Bacterial blood cultureOrdered By: Tammy Smyth on 53-78-8897Dpzlloit identified Cx Nom (Bld)DiptherAvita Health System Ontario HospitalBacteria identified Cx Nom (Bld)Bacillus sp not B. anthracisOur Lady Of Mercy Hospital - AndersonGlucose Poct Glucometerson 03-22-2022 Glucose [Mass/Vol]142 mg/dLMarietta Osteopathic ClinicComment on above:Result Comment: Random Glucose Reference Range is dependent on time and content of last meal. Glucose of more than 200 mg/dL in a nonstressed, ambulatory subject supports the diagnosis of Diabetes Mellitus.PERFORMED BY:[place] [address], [place] [phone] MEDICAL ANDRE SINGER M.D.Performed By: #### GLULS ####Point of Care testing,Ijyplmq0Ode7: Cleaned MeterNoKettering Health Washington TownshipComment on above:Result Comment: PERFORMED BY:[place] [address], [place] [phone] MEDICAL DIRECTORKIMBERLYN SINGER M.D.Performed By: #### GLULS ####Point of Care testing,Glucose [Mass/Vol]185 mg/dLMarietta Osteopathic Clinic Comment on above:Result Comment: Random Glucose Reference Range is dependent on time and content of last meal. Glucose of more than 200 mg/dL in a nonstressed, ambulatory subject supports the diagnosis of Diabetes Mellitus.Performed By: #### GLULS ####Point of Care testing,Ptmpqvz8Qnb0: Cleaned MeterMarietta Osteopathic ClinicComment on above:Result Comment: PERFORMED BY:[address], [place] [phone] MEDICAL DIRECTORKIMBERLYN SINGER M.D.Performed By: #### GLULS ####Point of Care testing,Glucose [Mass/Vol]206 mg/dLMarietta Osteopathic Clinic Comment on above:Result Comment: Random Glucose Reference Range is dependent on time and content of last meal. Glucose of more than 200 mg/dL in a nonstressed, ambulatory subject supports the diagnosis of Diabetes Mellitus.Performed By: #### GLULS ####Point of Care testing,Glucose [Mass/Vol]247 mg/dLMarietta Osteopathic ClinicComment on above:Result Comment: Random Glucose Reference Range is dependent on time and content of last meal. Glucose of more than 200 mg/dL in a nonstressed, ambulatory subject supports the diagnosis of Diabetes Mellitus.PERFORMED BY:[place] [address], [place] [phone] MEDICAL DIRECTORKIMBERLYN SINGER M.D.Performed By: #### GLULS ####Point of Care testing,Basic Metabolic Panelon 81-50-9044Kyxtd gap [Moles/Vol]12.4 mmol/LNormal6.0-15.0[facility] - AndersonComment on above:Performed By: #### BMP ####[address] [address] USACalcium [Mass/Vol]8.6 mg/dLNormal8.2-10.2FCleveland Clinic South Pointe HospitalComment on above:Performed By: #### BMP ####[address] [address] USAChloride [Moles/Vol] 96 mmol/RElfkyc02-771IsvycojwhOur Lady Of Mercy Hospital - AndersonComment on above:Performed By: #### BMP ####[address] [address] USACO2 [Moles/Vol]27.7 mmol/QQgonkr91.0-30.0[facility] - AndersonComment on above:Performed By: #### BMP ####[place] [address] USACreatinine [Mass/Vol]0.80 mg/dLNormal 0.44-1.03[facility] - AndersonComment on above:Performed By: #### BMP ####[address] [address] [place] Creatinine Clr Calc Wxhggzmu00.46NoKettering Health Washington TownshipComment on above:Result Comment: PERFORMED BY:[address] [place], [place] [phone] MEDICAL ANDRE SINGER M.D.Performed By: #### BMP ####[address] [address] USAEstimated GFR ( Brenda> 60NoKettering Health Washington TownshipComment on above:Result Comment: GFR estimated reference range: According to KDOQI guidelines, <60 ml/min/1.73m2 is sufficient to diagnose a patient with chronic kidney disease.Performed By: #### BMP ####[address] [address] [place] Estimated GFR (Non- Am> 60NoKettering Health Washington TownshipComment on above:Performed By: #### BMP ####[address] [address] USAGlucose [Mass/Vol]192 mg/aOMwip04-013UwibgoyijOur Lady Of Mercy Hospital - AndersonComment on above:Result Comment: Random Glucose Reference Range is dependent on time and content of last meal. Glucose of more than 200 mg/dL in a nonstressed, ambulatory subject supports the diagnosis of Diabetes Mellitus. ADA recommended reference rangePerformed By: #### BMP ####[facility] [address] [place] [address] USAPotassium [Moles/Vol] 4.1 mmol/LNormal3.5-5.1FCleveland Clinic South Pointe HospitalComment on above: Performed By: #### BMP ####[facility] [place] [address] USASodium [Moles/Vol]132 mmol/HVog242-676ByvtvbhkgOur Lady Of Mercy Hospital - AndersonComment on above:Performed By: #### BMP ####[facility] [place] [address] USAUrea nitrogen [Mass/Vol]13 mg/dLNounc health chatham9-[facility] Hospital - AndersonComment on above: Performed By: #### BMP ####[facility] [place] [address] USAGlucose Poct Glucometerson 73-79-5809Ojcwiwl [Mass/Vol]147 mg/dLNoKettering Health Washington TownshipComment on above: Result Comment: Random Glucose Reference Range is dependent on time and content of last meal. Glucose of more than 200 mg/dL in a nonstressed, ambulatory subject supports the diagnosis of Diabetes Mellitus.PERFORMED BY:[place] [address], [place] [phone] MEDICAL DIRECTORKIMBERLYN SINGER M.D.Performed By: #### GLULS ####Point of Care testing,Glucose [Mass/Vol]150 mg/dLNoKettering Health Washington Township Comment on above:Result Comment: Random Glucose Reference Range is dependent on time and content of last meal. Glucose of more than 200 mg/dL in a nonstressed, ambulatory subject supports the diagnosis of Diabetes Mellitus.PERFORMED BY:[place] [address], [place] [phone] MEDICAL DIRECTORKIMBERLYN Riley.D.Performed By: #### GLULS ####Point of Care testing,Ayywcal8Rdv4: Cleaned MeterMarietta Osteopathic ClinicComment on above:Result Comment: PERFORMED BY:[place] [address], [place] [phone] MEDICAL DIRECTORKIMBERLYN SINGER M.D.Performed By: #### GLULS ####Point of Care testing,Glucose [Mass/Vol]250 mg/dLMarietta Osteopathic Clinic Comment on above:Result Comment: Random Glucose Reference Range is dependent on time and content of last meal. Glucose of more than 200 mg/dL in a nonstressed, ambulatory subject supports the diagnosis of Diabetes Mellitus.Performed By: #### GLULS ####Point of Care testing,Glucose [Mass/Vol]213 mg/dLMarietta Osteopathic ClinicComment on above:Result Comment: Random Glucose Reference Range is dependent on time and content of last meal. Glucose of more than 200 mg/dL in a nonstressed, ambulatory subject supports the diagnosis of Diabetes Mellitus.PERFORMED BY:[address], [place] [phone] MEDICAL DIRECTORKIMBERLYN SINGER M.D.Performed By: #### GLULS ####Point of Care testing,Urinalysison 96-60-8599Uopwyyqamw (U)Clear NormalCleKettering Health HamiltonComment on above:Order Comment: Name Collection Type:: Clean-Voided MidstreamPerformed By: #### UA ####[address] [address] USABilirubin,Urine NegativeNormalNegativeOur Lady Of Mercy Hospital - AndersonComment on above:Order Comment: Name Collection Type:: Clean-Voided MidstreamPerformed By: #### UA ####[address] [address] USAColor (U)YellowNormalYellowOur Lady Of Mercy Hospital - AndersonComment on above:Order Comment: Name Collection Type:: Clean-Voided MidstreamPerformed By: #### UA ####[facility] [place] [address] USAGlucose Ql (U)NormalNormalNormSelect Medical Specialty Hospital - CantonComment on above:Order Comment: Name Collection Type:: Clean-Voided MidstreamPerformed By: #### UA ####[address] [address] USAKetones Ql (U)NegativeNormalNegSelect Medical TriHealth Rehabilitation HospitalComment on above: Order Comment: Name Collection Type:: Clean-Voided MidstreamPerformed By: #### UA ####[address] [address] [place] Leukocyte esterase Test strip Ql (U)NegativeNormSalem Regional Medical CenterComtrinity health [place] on above:Order Comment: Name Collection Type:: Clean- Voided MidstreamPerformed By: #### UA ####[address] [address] USANitrite,UrineNegativeNormalNegSelect Medical TriHealth Rehabilitation HospitalComtrinity health [place]onia on above:Order Comment: Name Collection Type:: Clean-Voided MidstreamPerformed By: #### UA ####[address] [address] USAOccult Blood,UrineNegativeNormal [facility]hillComtr[facility] health [facility] on above:Order Comment: Name Collection Type:: Clean-Voided MidstreamResult Comment: PERFORMED BY:[place] [address], [place] [phone] MEDICAL DIRECTORKIMBERLYN SINGER M.D.Performed By: #### UA ####[address] [address] USApH (U)7.0 [pH]Normal5.0-9.0 [facility] - AndersonComtrinity health [place] on above:Order Comment: Name Collection Type:: Clean-Voided MidstreamPerformed By: #### UA ####[address] [address] USAProtein,UrineNegativeNormal [facility] - Cleveland-FairhillComment on above:Order Comment: Name Collection Type:: Clean-Voided MidstreamPerformed By: #### UA ####[facility] [place] [address] USASpecificy Wheeler,Urine1.411Ltopcu4.001-1.030[facility] - AndersonComment on above:Order Comment: Name Collection Type:: Clean-Voided MidstreamPerformed By: #### UA ####[address] [place] [place] [address] USAUrobilinogen,UrineNormalNormalNormalOur Lady Of Mercy Hospital - AndersonComment on above:Order Comment: Name Collection Type:: Clean-Voided MidstreamPerformed By: #### UA ####[place] [place] [address] USAAlbumin [Mass/volume] in Serum or PlasmaOrdered By: Ronel Haney on 36-53-2468Hblcvoh [Mass/Vol]2.8 g/dL3.2-5.5FCleveland Clinic South Pointe Hospital Anisocytosis LM Ql (Bld)Ordered By: Ronel Haney on 05-02-0301Ckxfpwlikkmn Ql (Bld)[facility]uscarawas HospitalBand form neutrophils/100 WBC Manual cnt (Bld)Ordered By: Ronel Haney on 93-42-9841Tqxc form neutrophils/100 WBC (Bld)2 %0-5FCleveland Clinic South Pointe HospitalBasophils Auto (Bld) [#/Vol]Ordered By: Ronel Haney on 43-27-3560Wfizmpcnt (Bld) [#/Vol] N/[facility] NorthBasophils/100 WBC Auto (Bld)Ordered By: Ronel Haney on 59-48-2641Tsqbzwjjw/100 WBC (Bld)NHolmes County Joel Pomerene Memorial HospitalBilirubin Test strip Ql (U)Ordered By: Ryan Ibrahim on 03-20-2022 Bilirubin Ql (U)NegativeNegativeOur Lady Of Mercy Hospital - AndersonBlood toxic granulation detection by light microscopyOrdered By: Ronel Haney on 40-28-5458Lbhdb granules LM Ql (Bld)[facility]uscarawas HospitalColor Auto (U)Ordered By: Ryan Ibrahim on 78-25-4640Edltt (U)YellowYellowOur Lady Of Mercy Hospital - AndersonComprehensive Metabolic Panelon 12-84-5721Xrfdvrq [Mass/Vol]2.8 g/dLLow3.2-5.5FCleveland Clinic South Pointe HospitalComment on above: Performed By: #### CMP, DIFF CBC, PAB ####[facility] [place] [address] USAAlbumin/Globulin [Mass ratio]0.8 {ratio}Normal [facility] Hospital - AndersonComment on above:Performed By: #### CMP, DIFF CBC, PAB ####[facility] [address] [place] [address] USAALP [Catalytic activity/Vol]129 U/BCroc87-99AjfsbufyrOur Lady Of Mercy Hospital - Anderson Comment on above:Performed By: #### CMP, DIFF CBC, PAB ####[address] [place] [address] USAALT [Catalytic activity/Vol]14 U/EWvnnhs72-95QwykbyvauOur Lady Of Mercy Hospital - AndersonComment on above:Performed By: #### CMP, DIFF CBC, PAB ####[address] [place] [address] USAAnion gap [Moles/Vol]12.9 mmol/LNormal6.0-15.0 [facility] - AndersonComment on above:Performed By: #### CMP, DIFF CBC, PAB ####[address] [address] USAAST [Catalytic activity/Vol]17 U/ENibrbt96-81KcatqmjqvOur Lady Of Mercy Hospital - AndersonComment on above:Performed By: #### CMP, DIFF CBC, PAB ####[address] [address] USABilirubin [Mass/Vol] 0.6 mg/dLNormal0.3-1.2FCleveland Clinic South Pointe HospitalComment on above: Performed By: #### CMP, DIFF CBC, PAB ####[address] [address] USACalcium [Mass/Vol]8.3 mg/dLNormal8.2-10.2 [facility] - AndersonComment on above:Performed By: #### CMP, DIFF CBC, PAB ####[address] [place] [address] USAChloride [Moles/Vol]94 mmol/TShg40-102FezgefyatOur Lady Of Mercy Hospital - Anderson Comment on above:Performed By: #### CMP, DIFF CBC, PAB ####[address] USACO2 [Moles/Vol]26.0 mmol/L Gbonns50.0-30.0[facility] Hospital - AndersonComment on above:Performed By: #### CMP, DIFF CBC, PAB ####[address] USACreatinine [Mass/Vol]0.90 mg/dLNormal0.44-1.03 [facility] - AndersonComment on above:Performed By: #### CMP, DIFF CBC, PAB ####[address] USACreatinine Clr Calc Mpcmoqiz92.41[facility] Comment on above:Performed By: #### CMP, DIFF CBC, PAB ####[address] USAEstimated GFR ( Brenda > 60[facility]opathic ClinicComment on above:Result Comment: GFR estimated reference range: According to KDOQI guidelines, <60 ml/min/1.73m2 is sufficient to diagnose a patient with chronic kidney disease.Performed By: #### CMP, DIFF CBC, PAB ####[address] [address] USAEstimated GFR (Non- Am> 60[facility] ClinicComment on above:Performed By: #### CMP, DIFF CBC, PAB ####[address] USAGlobulin (S) [Mass/Vol]3.3 g/dLMarietta Osteopathic ClinicComment on above: Performed By: #### CMP, DIFF CBC, PAB ####[facility] [place] [address] USAGlucose [Mass/Vol]229 mg/yCPsdx60-396TljduifkeOur Lady Of Mercy Hospital - AndersonComment on above:Result Comment: Random Glucose Reference Range is dependent on time and content of last meal. Glucose of more than 200 mg/dL in a nonstressed, ambulatory subject supports the diagnosis of Diabetes Mellitus. ADA recommended reference rangePerformed By: #### CMP, DIFF CBC, PAB ####[facility] [place] [address] USAPotassium [Moles/Vol]3.9 mmol/LNormal3.5-5.1FCleveland Clinic South Pointe Hospital Comment on above:Performed By: #### CMP, DIFF CBC, PAB ####[address] [address] USAProtein [Mass/Vol]6.1 g/dL Normal6.1-7.9[facility] Hospital - AndersonComment on above:Performed By: #### CMP, DIFF CBC, PAB ####[address] [address] USASodium [Moles/Vol]129 mmol/DClo347-138IdkvdxtcgOur Lady Of Mercy Hospital - AndersonComment on above:Performed By: #### CMP, DIFF CBC, PAB ####[address] [address] USAUrea nitrogen [Mass/Vol]12 mg/dLNormal9-23[facility] - AndersonComment on above:Performed By: #### CMP, DIFF CBC, PAB ####[address] [address] USADiff and CBCon 00-68-4322Aoiyzcrbufeu Ql (Bld)SlightNormalOur Lady Of Mercy Hospital - AndersonComment on above:Performed By: #### CMP, DIFF CBC, PAB ####[address] [place] [address] USABand form neutrophils/100 WBC (Bld)2 %Normal0-5 [facility] Hospital - AndersonComment on above:Performed By: #### CMP, DIFF CBC, PAB ####[address] [place] [address] USAEosinophils/100 WBC (Bld)1 %Normal1-3FCleveland Clinic South Pointe HospitalComtrinity health [place] on above:Performed By: #### CMP, DIFF CBC, PAB ####[address] [address] USAErythrocyte distribution width (RBC) [Ratio]15.9 %High11.9-15.3FCleveland Clinic South Pointe HospitalComtrinity health [place] on above: Performed By: #### CMP, DIFF CBC, PAB ####[address] [address] USAGiant Platelet Tally3 /100{WBC}NormalOur Lady Of Mercy Hospital - AndersonComtrinity health livonia on above:Performed By: #### CMP, DIFF CBC, PAB ####[address] [address] [place] Hematocrit (Bld) [Volume fraction]28.2 %Low34.0-46.4FCleveland Clinic South Pointe HospitalComtrinity health [place] on above:Performed By: #### CMP, DIFF CBC, PAB ####[address] [address] USAHemoglobin (Bld) [Mass/Vol]9.4 g/dLLow11.8-15.4FCleveland Clinic South Pointe HospitalComtrinity health [place] on above: Performed By: #### CMP, DIFF CBC, PAB ####[address] [address] USALymphocytes/100 WBC (Bld)18 %Klmlmj30-80 [facility] Hospital - AndersonComtrinity health [facility] on above:Performed By: #### CMP, DIFF CBC, PAB ####[address] [address] USAMCH (RBC) [Entitic mass]30.6 mmXaxqlb68.7-34.3FCleveland Clinic South Pointe HospitalComtrinity health [place] on above:Performed By: #### CMP, DIFF CBC, PAB ####[address] [address] USAMCV (RBC) [Entitic vol]91.5 sUCgfamy68-458EdjpbsuylOur Lady Of Mercy Hospital - AndersonComment on above: Performed By: #### CMP, DIFF CBC, PAB ####[address] [address] USAMean Corpuscular HGB Conc33.5 g/dLNormal 32.0-35.0[facility] Hospital - AndersonComtrinity health [facility]onia on above:Performed By: #### CMP, DIFF CBC, PAB ####[address] [address] USAMetamyelocytes2 %High00Our [facility] Hospital - AndersonComtrinity health [facility] on above:Performed By: #### CMP, DIFF CBC, PAB ####[address] [address] USAMicrocytosisSlightNoKettering Health Washington TownshipComtrinity health livonia on above:Performed By: #### CMP, DIFF CBC, PAB ####[address] [address] [place] Monocytes/100 WBC (Bld)6 %Normal2-11[facility] Hospital - AndersonComtrinity health [facility] on above:Performed By: #### CMP, DIFF CBC, PAB ####[address] [address] USAMyelocytes3 %High081 Miller StreetComtrinity health livonia on above:Performed By: #### CMP, DIFF CBC, PAB ####[address] [address] USA Platelet EstimateNormalNormalMarietta Osteopathic ClinicComtrinity health [place]onia on above:Performed By: #### CMP, DIFF CBC, PAB ####[address] [address] USAPlatelet mean volume (Bld) [Entitic vol]8.3 fLNormal6.3-10.7FCleveland Clinic South Pointe HospitalComtrinity health livonia on above:Result Comment: PERFORMED BY:[address] [place], [place] [phone] MEDICAL ANDRE SINGER M.D.Performed By: #### CMP, DIFF CBC, PAB ####[address] [place] [address] USAPlatelet MorphologyNormalNormalNoKettering Health Washington TownshipComment on above:Result Comment: PERFORMED BY:[address] [place], [place] [phone] MEDICAL DIRECTORKIMBERLYN SINGER M.D.Performed By: #### CMP, DIFF CBC, PAB ####[address] [address] [place] Platelets (Bld) [#/Vol]294 10*3/dMLlipbh018-023PdvzywubgOur Lady Of Mercy Hospital - Anderson Comment on above:Performed By: #### CMP, DIFF CBC, PAB ####[address] [address] USAPolychromasiaSlightNormal [facility] Hospital - AndersonComment on above:Performed By: #### CMP, DIFF CBC, PAB ####[address] [address] USARBC (Bld) [#/Vol]3.08 10*6/uLLow3.60-5.00[facility] Comment on above:Performed By: #### CMP, DIFF CBC, PAB ####[address] [address] USASegmented neutrophils/100 WBC (Bld)68 %Vcqwpc57-71CebeqilvuOur Lady Of Mercy Hospital - AndersonComment on above:Performed By: #### CMP, DIFF CBC, PAB ####[address] [address] USAToxic GranulationSlightNoKettering Health Washington TownshipComment on above:Performed By: #### CMP, DIFF CBC, PAB ####[address] [address] USAWBC (Bld) [#/Vol]8.0 10*3/uLNormal3.8-11.6FCleveland Clinic South Pointe HospitalComment on above:Performed By: #### CMP, DIFF CBC, PAB ####[address] [address] USAECG 12 lead ECGon 08-53-5441XWS 12 lead ECGNoKettering Health Washington TownshipEosinophils Auto (Bld) [#/Vol] Ordered By: Ronel Haney on 65-13-5888Mvxzbqrzgug (Bld) [#/Vol]N/[facility] NorthEosinophils/100 WBC Auto (Bld)Ordered By: Ronel Haney on 13-52-3724Dcsrzdlusks/100 WBC (Bld)N/[facility] NorthEosinophils/100 WBC Manual cnt (Bld)Ordered By: Ronel Haney on 05-71-6937Pbwbakhmlwc/100 WBC (Bld)1 %1-3FCleveland Clinic [facility] Po[facility] Hospital Erythrocyte distribution width Auto (RBC) [Ratio]Ordered By: Ronel Haney on 49-50-5115Fydcfqyuigi distribution width (RBC) [Ratio]15.9 %11.9-15.3FCleveland Clinic South Pointe HospitalGiant platelets/100 leukocytes [Ratio] in Blood by Manual countOrdered By: Ronel Haney on 38-73-4087Pzfbk platelets/100 WBC Manual cnt (Bld) [Ratio]3 /100{WBC}[facility] Hospital - AndersonGlobulin Calc (S) [Mass/Vol]Ordered By: Ronel Haney on 87-16-4916Oxllqfwk (S) [Mass/Vol]3.3 g/dLOur Lady Of Mercy Hospital - AndersonGlucose Poct Glucometerson 03-20-2022 Glucose [Mass/Vol]289 mg/dLMarietta Osteopathic ClinicComment on above:Result Comment: Random Glucose Reference Range is dependent on time and content of last meal. Glucose of more than 200 mg/dL in a nonstressed, ambulatory subject supports the diagnosis of Diabetes Mellitus.PERFORMED BY:[address] [place], [place] [phone] MEDICAL DIRECTORKIMBERLYN SINGER M.D.Performed By: #### GLULS ####Point of Care testing,Gqlpitw5Klb1: Cleaned MeterNoKettering Health Washington TownshipComment on above:Result Comment: PERFORMED BY:[address] [place], [place] [phone] MEDICAL DIRECTORKIMBERLYN SINGER M.D.Performed By: #### GLULS ####Point of Care testing,Glucose [Mass/Vol]166 mg/dLMarietta Osteopathic Clinic Comment on above:Result Comment: Random Glucose Reference Range is dependent on time and content of last meal. Glucose of more than 200 mg/dL in a nonstressed, ambulatory subject supports the diagnosis of Diabetes Mellitus.Performed By: #### GLULS ####Point of Care testing,Tseluxu3Njv5: Cleaned [facility]lyria Medical CenterComment on above:Result Comment: PERFORMED BY:[address] [place], [place] [phone] MEDICAL DIRECTORKIMBERLYN SINGER M.D.Performed By: #### GLULS ####Point of Care testing,Glucose [Mass/Vol]297 mg/dLMarietta Osteopathic Clinic Comment on above:Result Comment: Random Glucose Reference Range is dependent on time and content of last meal. Glucose of more than 200 mg/dL in a nonstressed, ambulatory subject supports the diagnosis of Diabetes Mellitus.Performed By: #### GLULS ####Point of Care testing,Wxgtgaw2Gls0: Cleaned [facility] Medical CenterComment on above:Result Comment: PERFORMED BY:[address] [place], [place] [phone] MEDICAL DIRECTORKIMBERLYN SINGER M.D.Performed By: #### GLULS ####Point of Care testing,Glucose [Mass/Vol]274 mg/dLMarietta Osteopathic Clinic Comment on above:Result Comment: Random Glucose Reference Range is dependent on time and content of last meal. Glucose of more than 200 mg/dL in a nonstressed, ambulatory subject supports the diagnosis of Diabetes Mellitus.Performed By: #### GLULS ####Point of Care testing,Hematocrit Auto (Bld) [Volume fraction] Ordered By: Ronel Haney on 01-22-5502Ydbizlmiee (Bld) [Volume fraction]28.2 %34.0-46.4FCleveland Clinic South Pointe HospitalHemoglobin [Mass/volume] in Blood Ordered By: Ronel Haney on 24-06-0337Qhatebeztn (Bld) [Mass/Vol]9.4 g/dL 11.8-15.4FCleveland Clinic South Pointe HospitalKetones Auto test strip (U) [Mass/Vol] Ordered By: Ryan Ibrahim on 29-82-9277Ppkqenu (U) [Mass/Vol]NegativeNegative [facility] - AndersonLeukocytes [#/volume] corrected for nucleated erythrocytes in Blood by Automated counOrdered By: Ronel Haney on 97-50-5086LKB corrected for nucl RBC Auto (Bld) [#/Vol]8.0 10*3/uL3.8-11.6 [facility] Hospital - AndersonLymphocytes Auto (Bld) [#/Vol]Ordered By: Ronel Haney on 28-28-5697Wfyxoncssde (Bld) [#/Vol]N/[facility] NorthLymphocytes/100 WBC Auto (Bld)Ordered By: Ronel Haney on 03-20-2022 Lymphocytes/100 WBC (Bld)N/[facility] NorthLymphocytes/100 WBC Manual cnt (Bld)Ordered By: Ronel Haney on 86-14-2329Nptvpvzjfoa/100 WBC (Bld)18 %18-42[facility] Auto (RBC) [Entitic mass] Ordered By: Ronel Haney on 12-16-9321CUU (RBC) [Entitic mass]30.6 pg 24.7-34.3FCleveland Clinic South Pointe HospitalMCHC Auto (RBC) [Mass/Vol]Ordered By: Ronel Haney on 12-41-7369OTTZ (RBC) [Mass/Vol]33.5 g/dL32.0-35.0[facility] - AndersonMCV Auto (RBC) [Entitic vol]Ordered By: Ronel Haney on 84-47-7152JJX (RBC) [Entitic vol]91.5 jT95-430JgrxfwxilOur Lady Of Mercy Hospital - AndersonMetamyelocytes/100 WBC Manual cnt (Bld)Ordered By: Ronel Haney on 63-04-7339Rdcwqpvenzyudu/100 WBC (Bld)2 %0-0[facility] Microcytes LM Ql (Bld)Ordered By: Ronel Haney on 06-35-3282Nerigmsqky Ql (Bld)SlightOur Lady Of Mercy Hospital - AndersonMonocytes Auto (Bld) [#/Vol]Ordered By: Ronel Haney on 21-71-5471Vrzbkljjt (Bld) [#/Vol]N/[facility] NorthMonocytes/100 WBC Auto (Bld)Ordered By: Ronel Haney on 85-77-3562Rmnlyqzns/100 WBC (Bld)N/[facility] Monocytes/100 WBC Manual cnt (Bld)Ordered By: Ronel Haney on 03-20-2022 Monocytes/100 WBC (Bld)6 %2-11[facility] - AndersonMyelocytes/100 WBC Manual cnt (Bld)Ordered By: Ronel Haney on 44-54-8411Xvkicnfzms/100 WBC (Bld)3 %0-0[facility] - AndersonNeutrophils Auto (Bld) [#/Vol] Ordered By: Ronel Haney on 68-19-0056Pmzmsanmpwj (Bld) [#/Vol]N/[facility] NorthNeutrophils/100 WBC Auto (Bld)Ordered By: Ronel Haney on 40-64-8777Jwvzdezpfjl/100 WBC (Bld)N/[facility] NorthNitrite Test strip Ql (U)Ordered By: Ryan Ibrahim on 31-88-2017Qjrnyet Ql (U)NegativeNegativeOur Lady Of Mercy Hospital - AndersonNucleated erythrocytes [Presence] in Blood by Automated countOrdered By: Ronel Haney on 03-20-2022 Nucleated RBC Auto Ql (Bld)N/[facility] NorthPlatelet adequacy [Presence] in Blood by Light microscopyOrdered By: Ronel Haney on 36-10-1868Ggbaaxoor LM Ql (Bld)NormalNormalOur Lady Of Mercy Hospital - Anderson Platelet mean volume Auto (Bld) [Entitic vol]Ordered By: Ronel Haney on 65-76-2351Livorixl mean volume (Bld) [Entitic vol]8.3 fL6.3-10.7FCleveland Clinic South Pointe HospitalPlatelet morphology finding [Identifier] in BloodOrdered By: Ronel Haney on 71-98-3422Hjrzapqi morphology finding Nom (Bld)Normal NormalOur Lady Of Mercy Hospital - AndersonPlatelets Auto (Bld) [#/Vol]Ordered By: Ronel Haney on 49-03-5980Anppssvqu (Bld) [#/Vol]294 10*3/nY569-444VpidvhkauOur Lady Of Mercy Hospital - AndersonPolychromasia [Presence] in Blood by Light microscopy Ordered By: Ronel Haney on 71-57-5593Qapmiyeftvauh LM Ql (Bld)Slight [facility] Hospital - AndersonPrealbuminon 75-60-7906Rnyksgorgz [Mass/Vol] 13.7 mg/dLLow18.0-38.0[facility] - AndersonComment on above:Result Comment: PERFORMED BY:[facility] [place] [address] [place], [place] [phone] MEDICAL DIRECTORKIMBERLYN SINGER M.D.Performed By: #### CMP, DIFF CBC, PAB ####[address] [address] USAProtein Auto test strip (U) [Mass/Vol]Ordered By: Ryan Ibrahim on 48-17-9970Ajlcjdq (U) [Mass/Vol]NegativeNegativeOur Lady Of Mercy Hospital - AndersonProtein [Mass/volume] in Serum or PlasmaOrdered By: Ronel Haney on 79-98-6491Lnkhytb [Mass/Vol]6.1 g/dL6.1-7.9[facility] Hospital - AndersonRB Auto (Bld) [#/Vol]Ordered By: Ronel Haney on 03-20-2022 RBC (Bld) [#/Vol]3.08 10*6/uL3.60-5.00[facility] Hospital - AndersonRB morphologyOrdered By: Ronel Haney on 22-04-6458XLC morphology finding Nom (Bld)N/AFMary Rutan Hospitalegmented neutrophils/100 WBC Manual cnt (Bld)Ordered By: Ronel Haney on 66-95-7452Prvrcoujc neutrophils/100 WBC (Bld)68 %50-70[facility] Health Centererum or plasma alanine aminotransferase measurement without P-5'-P (enzymatic activiOrdered By: Ronel Haney on 47-45-5482ECW No additional P-5'-P [Catalytic activity/Vol]14 U/L 10-60[facility] Centererum or plasma albumin/globulin mass ratioOrdered By: Ronel Haney on 16-73-3192Ythlqdi/Globulin [Mass ratio]0.8 {ratio}[facility] Centererum or plasma alkaline phosphatase measurement (enzymatic activity/volume)Ordered By: Ronel Haney on 70-92-6917JIA [Catalytic activity/Vol]129 U/Z17-21UytwviqcuSamaritan North Health Centererum or plasma aspartate aminotransferase measurement (enzymatic activity/volume)Ordered By: Ronel Haney on 70-29-4387WEQ [Catalytic activity/Vol]17 U/O81-77KcgrofftuSamaritan North Health Centererum or plasma prealbumin measurement (mass/volume)Ordered By: Ronel Haney on 03-20-2022 Prealbumin [Mass/Vol]13.7 mg/dL18.0-38.0[facility] Centererum or plasma total bilirubin measurement (mass/volume)Ordered By: Ronel Haney on 01-37-5844Littuounh [Mass/Vol]0.6 mg/dL0.3-1.2FMary Rutan Hospitalpecific gravity Auto test strip (U) [Rel density]Ordered By: Ryan Ibrahim on 70-95-4547Pkwcickf gravity (U) [Rel density]1.0051.001-1.030[facility] Hospital - AndersonUrine clarity by refractometry automatedOrdered By: Ryan Ibrahim on 98-38-1243Zhbcwdt Refractometry automated (U)ClearCleKettering Health HamiltonUrine glucose measurement by automated test strip (mass/volume)Ordered By: Ryan Ibrahim on 08-00-8444Ihppdeo Auto test strip (U) [Mass/Vol]Normal mg/dLNormalOur Lady Of Mercy Hospital - AndersonUrine hemoglobin detection by automated test stripOrdered By: Ryan Ibrahim on 03-20-2022 Hemoglobin Auto test strip Ql (U)NegativeNegativeOur Lady Of Mercy Hospital - AndersonUrine leukocyte esterase detection by automated test stripOrdered By: Ryan Patrice on 90-65-2116Shkrphwfw esterase Auto test strip Ql (U)Negative NegativeOur Lady Of Mercy Hospital - AndersonUrobilinogen Auto test strip (U) [Mass/Vol]Ordered By: Ryan Patrice on 79-18-4250Nmxpoqhqwena (U) [Mass/Vol] Normal mg/dLNormalOur Lady Of Mercy Hospital - AndersonWBC Auto (Bld) [#/Vol]Ordered By: Ronel Haney on 89-10-9073OUK (Bld) [#/Vol]8.0 10*3/uL3.8-11.6FCleveland Clinic South Pointe HospitalpH Auto test strip (U)Ordered By: Ryan Ibrahim on 90-07-7069hH (U)7.0 [pH]5.0-9.0[facility] - AndersonAnisocytosis LM Ql (Bld)Ordered By: Nicolasa Hull on 02-51-0131Lwpqzkcbqlpy Ql (Bld)Slight [facility] - AndersonBand form neutrophils/100 WBC Manual cnt (Bld) Ordered By: Nicolasa Hull on 65-83-9812Yzei form neutrophils/100 WBC (Bld)6 % 0-5FCleveland Clinic South Pointe HospitalBasic Metabolic Panelon 75-80-9046Xkctb gap [Moles/Vol]11.8 mmol/LNormal6.0-15.0[facility] - AndersonComment on above:Performed By: #### DIFF CBC, CBC, BMP ####[facility] [address] [place] [address] USACalcium [Mass/Vol]8.3 mg/dLNormal 8.2-10.2FCleveland Clinic South Pointe HospitalComment on above:Performed By: #### DIFF CBC, CBC, BMP ####[facility] [address] [place] [address] USAChloride [Moles/Vol]97 mmol/KTnegsg28-899BzddtoqwmOur Lady Of Mercy Hospital - AndersonComment on above:Performed By: #### DIFF CBC, CBC, BMP ####[facility] [place] [address] USACO2 [Moles/Vol]28.2 mmol/FKhoums76.0-30.0[facility] Hospital - AndersonComment on above:Performed By: #### DIFF CBC, CBC, BMP ####[address] [place] [address] USACreatinine [Mass/Vol]0.73 mg/dLNormal0.44-1.03 [facility] Hospital - AndersonComment on above:Performed By: #### DIFF CBC, CBC, BMP ####[address] USACreatinine Clr Calc Bvvadvkd11.96[facility] Comment on above:Result Comment: PERFORMED BY:[address] [place], [place] [phone] MEDICAL DIRECTORKIMBERLYN SINGER M.D.Performed By: #### DIFF CBC, CBC, BMP ####[id number] USAEstimated GFR ( Brenda> 60[facility] ClinicComment on above: Result Comment: GFR estimated reference range: According to KDOQI guidelines, <60 ml/min/1.73m2 is sufficient to diagnose a patient with chronic kidney disease.Performed By: #### DIFF CBC, CBC, BMP ####[address] [address] USAEstimated GFR (Non- Am> 60 [facility] ClinicComment on above:Performed By: #### DIFF CBC, CBC, BMP ####[address] USAGlucose [Mass/Vol]186 mg/rPVvev94-005VmlzknxwaOur Lady Of Mercy Hospital - Anderson Comment on above:Result Comment: Random Glucose Reference Range is dependent on time and content of last meal. Glucose of more than 200 mg/dL in a nonstressed, ambulatory subject supports the diagnosis of Diabetes Mellitus. ADA recommended reference rangePerformed By: #### DIFF CBC, CBC, BMP ####[address] USAPotassium [Moles/Vol]4.0 mmol/LNormal3.5-5.1FCleveland Clinic South Pointe HospitalComment on above:Performed By: #### DIFF CBC, CBC, BMP ####[address] [place] [address] USASodium [Moles/Vol]133 mmol/IGpf086-886FfzrkklapOur Lady Of Mercy Hospital - AndersonComment on above:Performed By: #### DIFF CBC, CBC, BMP ####[place] [address] USAUrea nitrogen [Mass/Vol]10 mg/dLNormal9-23[facility] Hospital - AndersonComment on above:Performed By: #### DIFF CBC, CBC, BMP ####[place] [address] USABasophils Auto (Bld) [#/Vol]Ordered By: Nicolasa Hull on 69-69-5215Mkylqqflo (Bld) [#/Vol]N/[facility] NorthBasophils/100 WBC Auto (Bld)Ordered By: Nicolasa Hull on 69-73-4368Oytfncjub/100 WBC (Bld)N/[facility] NorthComplete Blood Count Auto Diffon 68-49-6661Zsyvhqoszjt distribution width (RBC) [Ratio] 15.9 %High11.9-15.3FCleveland Clinic South Pointe HospitalComment on above:Performed By: #### DIFF CBC, CBC, BMP ####[place] [address] USAHematocrit (Bld) [Volume fraction]24.6 %Low34.0-46.4 [facility] - AndersonComment on above:Performed By: #### DIFF CBC, CBC, BMP ####[place] [address] USAHemoglobin (Bld) [Mass/Vol]8.4 g/dLLow11.8-15.4FCleveland Clinic South Pointe HospitalComment on above:Performed By: #### DIFF CBC, CBC, BMP ####[place] [address] USAMCH (RBC) [Entitic mass]31.0 kvCkpgli26.7-34.3FCleveland Clinic South Pointe HospitalComment on above: Performed By: #### DIFF CBC, CBC, BMP ####[address] [address] USAMCV (RBC) [Entitic vol]90.8 kLRhqqyp26-477 [facility] - AndersonComment on above:Performed By: #### DIFF CBC, CBC, BMP ####[address] [address] USAMean Corpuscular HGB Conc34.1 g/gFOqytpg94.0-35.0[facility] - AndersonComment on above:Performed By: #### DIFF CBC, CBC, BMP ####[address] [address] USAPlatelet mean volume (Bld) [Entitic vol]8.9 fLNormal6.3-10.7FCleveland Clinic South Pointe HospitalComment on above:Result Comment: PERFORMED BY:[address] [place], [place] [phone] MEDICAL DIRECTORKIMBERLYN SINGER M.D.Performed By: #### DIFF CBC, CBC, BMP ####[address] [address] USAPlatelets (Bld) [#/Vol]293 10*3/uLNormal 150-450Our [facility] Hospital - AndersonComment on above:Performed By: #### DIFF CBC, CBC, BMP ####[address] [address] USARBC (Bld) [#/Vol]2.71 10*6/uLLow3.60-5.00[facility] - AndersonComment on above:Performed By: #### DIFF CBC, CBC, BMP ####[address] [address] USAWBC (Bld) [#/Vol]8.0 10*3/uLNormal3.8-11.6FCleveland Clinic South Pointe HospitalComment on above:Performed By: #### DIFF CBC, CBC, BMP ####[address] [place] [address] USACreatinine and Glomerular filtration rate.predicted panel (S/P/Bld)Ordered By: Nicolasa Hull on 50-56-2415Yvhgbmsvud [Mass/Vol] 0.73 mg/dL0.44-1.03[facility] - AndersonDiff and CBCon 03-19-2022 Anisocytosis Ql (Bld)SlightNormalOur Lady Of Mercy Hospital - AndersonComment on above:Performed By: #### DIFF CBC, CBC, BMP ####[address] [place] [address] USABand form neutrophils/100 WBC (Bld)6 % High0-5FCleveland Clinic South Pointe HospitalComment on above:Performed By: #### DIFF CBC, CBC, BMP ####[address] [address] USAEosinophils/100 WBC (Bld)1 %Normal1-3FCleveland Clinic South Pointe Hospital Comment on above:Performed By: #### DIFF CBC, CBC, BMP ####[address] [place] [address] USAGiant Platelet Tally1 /100{WBC}NormalOur Lady Of Mercy Hospital - AndersonComment on above:Performed By: #### DIFF CBC, CBC, BMP ####[address] [place] [address] USALymphocytes/100 WBC (Bld)22 %Pcvkjw74-73MyxetrgszOur Lady Of Mercy Hospital - AndersonComment on above:Performed By: #### DIFF CBC, CBC, BMP ####[address] [place] [address] [place] Metamyelocytes2 %High0-0[facility] - AndersonComment on above: Performed By: #### DIFF CBC, CBC, BMP ####[address] [place] [address] USAMonocytes/100 WBC (Bld)6 %Normal2-11[facility] - AndersonComment on above:Performed By: #### DIFF CBC, CBC, BMP ####[facility] [place] [address] [place] Myelocytes4 %High0-0[facility] - AndersonComment on above:Performed By: #### DIFF CBC, CBC, BMP ####[address] [place] [address] USANucleated Red Blood Cell1 /100{WBC}High0-0[facility] - AndersonComment on above:Performed By: #### DIFF CBC, CBC, BMP ####[address] [address] [place] Platelet EstimateNormalNormLancaster Municipal HospitalComment on above:Performed By: #### DIFF CBC, CBC, BMP ####[address] [address] USAPlatelet MorphologyNormalNormalNormal [facility] - AndersonComment on above:Result Comment: PERFORMED BY:[address] [place], [place] [phone] MEDICAL DIRECTORKIMBERLYN SINGER M.D.Performed By: #### DIFF CBC, CBC, BMP ####[address] [address] USAPolychromasiaSlightMarietta Osteopathic ClinicComment on above: Performed By: #### DIFF CBC, CBC, BMP ####[address] [address] USASegmented neutrophils/100 WBC (Bld)60 %Normal 50-70[facility] - AndersonComment on above:Performed By: #### DIFF CBC, CBC, BMP ####[address] [address] USAEosinophils Auto (Bld) [#/Vol]Ordered By: Nicolasa Hull on 03-19-2022 Eosinophils (Bld) [#/Vol]N/AFCleveland Clinic South Pointe HospitalEosinophils/100 WBC Auto (Bld)Ordered By: Nicolasa Hull on 75-81-9449Wfholumeont/100 WBC (Bld)N/A [facility] - AndersonEosinophils/100 WBC Manual cnt (Bld)Ordered By: Nicolasa Hull on 31-00-0874Engibwoahsc/100 WBC (Bld)1 %1-3FCleveland Clinic South Pointe HospitalErythrocyte distribution width Auto (RBC) [Ratio]Ordered By: Nicolasa Hull on 07-66-1908Xzkiobhwdla distribution width (RBC) [Ratio]15.9 % 11.9-15.3FCleveland Clinic South Pointe HospitalEstimated glomerular filtration rate (GFR) non- AmericanOrdered By: Nicolasa Hull on 35-08-6645INW/1.73 sq M.predicted among non-blacks MDRD (S/P/Bld) [Vol rate/Area]> 60 mL/MinOur Lady Of Mercy Hospital - AndersonGiant platelets/100 leukocytes [Ratio] in Blood by Manual countOrdered By: Nicolasa Hull on 23-24-8193Pkrcn platelets/100 WBC Manual cnt (Bld) [Ratio]1 /100{WBC}[facility] - AndersonGlucose Glucometer (BldC) [Mass/Vol]Ordered By: Navarro Cota on 39-37-6783Oyyfztw [Mass/Vol]310 mg/dLOur Lady Of Mercy Hospital - AndersonComment on above:Random Glucose Reference Range is dependent on time and content of last meal. Glucose of more than 200 mg/dL in a nonstressed, ambulatory subject supports the diagnosis of Diabetes Mellitus.Glucose Poct Glucometerson 36-75-7811Atiwcrx6 Glu2: Cleaned MeterNormalOur Lady Of Mercy Hospital - AndersonComment on above: Result Comment: PERFORMED BY:[address] BALDERRAMALUNA [place], [place] [phone] MEDICAL DIRECTORKIMBERLYN SINGER M.D. Performed By: #### GLULS ####Point of Care testing,Glucose [Mass/Vol]253 mg/dL [facility] Osteopathic ClinicComment on above:Result Comment: Random Glucose Reference Range is dependent on time and content of last meal. Glucose of more than 200 mg/dL in a nonstressed, ambulatory subject supports the diagnosis of Diabetes Mellitus.Performed By: #### GLULS ####Point of Care testing,Glucose [Mass/Vol]152 mg/dLMarietta Osteopathic Clinic Comment on above:Result Comment: Random Glucose Reference Range is dependent on time and content of last meal. Glucose of more than 200 mg/dL in a nonstressed, ambulatory subject supports the diagnosis of Diabetes Mellitus.PERFORMED BY:[address] BALDERRAMARASHAUNSHERWOOD, [place] [phone] MEDICAL DIRECTORKIMBERLYN SINGER M.D.Performed By: #### GLULS ####Point of Care testing,Yfyxlpy0Ohz0: Cleaned MeterMarietta Osteopathic ClinicComment on above:Result Comment: PERFORMED BY:[address] MARILYNHaroonTeeteeRASHAUNSHERWOOD, [place] [phone] MEDICAL ANDRE SINGER M.D.Performed By: #### GLULS ####Point of Care testing,Glucose [Mass/Vol]310 mg/dLMarietta Osteopathic Clinic Comment on above:Result Comment: Random Glucose Reference Range is dependent on time and content of last meal. Glucose of more than 200 mg/dL in a nonstressed, ambulatory subject supports the diagnosis of Diabetes Mellitus.Performed By: #### GLULS ####Point of Care testing,Glucose [Mass/Vol]195 mg/dLMarietta Osteopathic ClinicComment on above:Result Comment: Random Glucose Reference Range is dependent on time and content of last meal. Glucose of more than 200 mg/dL in a nonstressed, ambulatory subject supports the diagnosis of Diabetes Mellitus.PERFORMED BY:[address] HUIZARTeeteeRASHAUN, [place] [phone] MEDICAL ANDRE SINGER M.D.Performed By: #### GLULS ####Point of Care testing,Hematocrit Auto (Bld) [Volume fraction] Ordered By: Nicolasa Hull on 86-60-2961Uzxlwvwlnc (Bld) [Volume fraction]24.6 %34.0-46.4FCleveland Clinic South Pointe HospitalHemoglobin [Mass/volume] in Blood Ordered By: Nicolasa Hull on 99-80-0962Ikrhexyjuk (Bld) [Mass/Vol]8.4 g/dL 11.8-15.4FCleveland Clinic South Pointe HospitalLeukocytes [#/volume] corrected for nucleated erythrocytes in Blood by Automated counOrdered By: Nicolasa Hull on 83-65-5058APW corrected for nucl RBC Auto (Bld) [#/Vol]8.0 10*3/uL3.8-11.6 [facility] - AndersonLymphocytes Auto (Bld) [#/Vol]Ordered By: Nicolasa Hull on 56-50-0952Jnkfvofozhc (Bld) [#/Vol]N/[facility] NorthLymphocytes/100 WBC Auto (Bld)Ordered By: Nicolasa Hull on 03-19-2022 Lymphocytes/100 WBC (Bld)N/[facility] NorthLymphocytes/100 WBC Manual cnt (Bld)Ordered By: Nicolasa Hull on 09-93-0005Utrgyvlergh/100 WBC (Bld)22 %18-42[facility] HospitalH Auto (RBC) [Entitic mass] Ordered By: Nicolasa Hull on 12-24-1652HDT (RBC) [Entitic mass]31.0 pg 24.7-34.3FCleveland Clinic South Pointe HospitalMCHC Auto (RBC) [Mass/Vol]Ordered By: Nicolasa Hull on 76-36-6559TCAM (RBC) [Mass/Vol]34.1 g/dL32.0-35.0[facility] - AndersonMCV Auto (RBC) [Entitic vol]Ordered By: Nicolasa Hull on 97-49-4513PDI (RBC) [Entitic vol]90.8 xJ57-160AraevtlpmOur Lady Of Mercy Hospital - AndersonMetamyelocytes/100 WBC Manual cnt (Bld)Ordered By: Nicolasa Hull on 74-79-3459Rxtqcriufcpjbi/100 WBC (Bld)2 %0-0[facility] Monocytes Auto (Bld) [#/Vol]Ordered By: Nicolasa Hull on 77-64-1604Sxolapkfb (Bld) [#/Vol]N/[facility] NorthMonocytes/100 WBC Auto (Bld) Ordered By: Nicolasa Hull on 65-62-1958Gwngvjzyk/100 WBC (Bld)N/[facility] NorthMonocytes/100 WBC Manual cnt (Bld)Ordered By: Nicolasa Hull on 81-73-4601Xvyakatac/100 WBC (Bld)6 %2-11[facility] - AndersonMyelocytes/100 WBC Manual cnt (Bld)Ordered By: Nicolasa Hull on 71-38-0800Fczzbnyuuk/100 WBC (Bld)4 %0-0[facility] Neutrophils Auto (Bld) [#/Vol]Ordered By: Nicolasa Hull on 03-19-2022 Neutrophils (Bld) [#/Vol]N/[facility] NorthNeutrophils/100 WBC Auto (Bld)Ordered By: Nicolasa Hull on 16-50-5987Iinzfarrpqp/100 WBC (Bld)N/A [facility] - AndersonNo Panel InformationOrdered By: Navarro Cota on 24-36-6963Udzlqmd Glucose CommentGlu2: cleaned meterOur Lady Of Mercy Hospital - AndersonNo Panel InformationOrdered By: Nicolasa Hull on 65-80-0793Wldbmngab GFR ()> 60 mL/MinOur Lady Of Mercy Hospital - AndersonComment on above:GFR estimated reference range: According to KDOQI guidelines, <60 ml/min/1.73m2 is sufficient todiagnose a patient with chronic kidney disease.Pharmacy Creatinine Clearance (Chem73.96[facility] - AndersonNucleated RBC/100 WBC Manual cnt (Bld) [Ratio]Ordered By: Nicolasa Hull on 17-85-2854Whroxpuuz RBC/100 WBC (Bld) [Ratio]1 /100{WBC}0-0 [facility] - AndersonNucleated erythrocytes [Presence] in Blood by Automated countOrdered By: Nicolasa Hull on 12-58-0205Qggnrsinr RBC Auto Ql (Bld)N/[facility] NorthPlatelet adequacy [Presence] in Blood by Light microscopyOrdered By: Nicolasa Hull on 37-43-3730Pnyiszvxh LM Ql (Bld)NormalNormalOur Lady Of Mercy Hospital - AndersonPlatelet mean volume Auto (Bld) [Entitic vol]Ordered By: Nicolasa Hull on 97-40-8067Tsshlsee mean volume (Bld) [Entitic vol]8.9 fL6.3-10.7FCleveland Clinic South Pointe HospitalPlatelet morphology finding [Identifier] in BloodOrdered By: Nicolasa Hull on 64-68-6309Rfhyxpdb morphology finding Nom (Bld)NormalNormalOur Lady Of Mercy Hospital - AndersonPlatelets Auto (Bld) [#/Vol]Ordered By: Nicolasa Hull on 09-82-0855Scrnfbetf (Bld) [#/Vol]293 10*3/rM833-718NbwaofnhxOur Lady Of Mercy Hospital - AndersonPolychromasia [Presence] in Blood by Light microscopyOrdered By: Nicolasa Hull on 84-22-4411Eknwqkqxsfnzu LM Ql (Bld)SlightWyandot [facility] Hospital Auto (Bld) [#/Vol]Ordered By: Nicolasa Hull on 22-30-8291GDW (Bld) [#/Vol]2.71 10*6/uL3.60-5.00[facility] morphologyOrdered By: Nicolasa Hull on 39-99-6765RSC morphology finding Nom (Bld)N/AFMary Rutan Hospitalegmented neutrophils/100 WBC Manual cnt (Bld)Ordered By: Nicolasa Hull on 78-21-6299Kqckvvjnw neutrophils/100 WBC (Bld)60 %50-70[facility] Centererum or plasma anion gap determinationOrdered By: Nicolasa Hull on 16-17-6572Jtdbw gap [Moles/Vol]11.8 mmol/L6.0-15.0[facility] Centererum or plasma calcium measurement (mass/volume)Ordered By: Nicolasa Hull on 20-80-0603Tefktuo [Mass/Vol]8.3 mg/dL8.2-10.2FMary Rutan Hospitalerum or plasma chloride measurement (moles/volume)Ordered By: Nicolasa Hull on 03-19-2022 Chloride [Moles/Vol]97 mmol/H66-089WvnmhtqccSamaritan North Health Centererum or plasma glucose measurement (mass/volume)Ordered By: Nicolasa Hull on 17-20-7603Pdetlou [Mass/Vol]186 mg/tN06-416LdbiyxzzjOur Lady Of Mercy Hospital - Anderson Comment on above:ADA recommended reference rangeRandom Glucose Reference Range is dependent on time and content of last meal. Glucose of more than 200 mg/dL in a nonstressed, ambulatory subject supports the diagnosisof Diabetes Mellitus. Serum or plasma potassium measurement (moles/volume)Ordered By: Nicolasa Hull on 95-69-1030Xjyeelrkz [Moles/Vol]4.0 mmol/L3.5-5.1FMary Rutan Hospitalerum or plasma sodium measurement (moles/volume)Ordered By: Nicolasa Hull on 78-21-9869Apnqsq [Moles/Vol]133 mmol/I120-494MdjoysmxqSamaritan North Health Centererum or plasma total carbon dioxide measurement (moles/volume) Ordered By: Nicolasa Hull on 06-78-9537AV6 [Moles/Vol]28.2 mmol/L22.0-30.0 [facility] Centererum or plasma urea nitrogen measurement (mass/volume)Ordered By: Nicolasa Hull on 33-14-7834Vblh nitrogen [Mass/Vol]10 mg/dL9-23[facility] - AndersonWBC Auto (Bld) [#/Vol]Ordered By: Nicolasa Hull on 33-21-8822JCU (Bld) [#/Vol]8.0 10*3/uL3.8-11.6FCleveland Clinic South Pointe HospitalXR shoulder LT min 2V*on 43-56-1195TA shoulder LT min 2V* NormalOur Lady Of Mercy Hospital - AndersonBasic Metabolic Panelon 76-73-0809Vspdz gap [Moles/Vol]11.2 mmol/LNormal6.0-15.0[facility] - AndersonComment on above:Performed By: #### BMP, CBC ####[facility] [address] [place] [address] USACalcium [Mass/Vol]8.1 mg/dLLow8.2-10.2 [facility] - AndersonComment on above:Performed By: #### BMP, CBC ####[facility] [address] [place] [address] [place] Chloride [Moles/Vol]97 mmol/CEsfwko14-262TefrnviyjOur Lady Of Mercy Hospital - Anderson Comment on above:Performed By: #### BMP, CBC ####[address] [place] [address] USACO2 [Moles/Vol]26.7 mmol/LNormal 22.0-30.0[facility] - AndersonComment on above:Performed By: #### BMP, CBC ####[address] [place] [address] USACreatinine [Mass/Vol]0.75 mg/dLNormal0.44-1.03[facility] - AndersonComment on above:Performed By: #### BMP, CBC ####[address] [address] USACreatinine Clr Calc Pharmacy 73.79NoKettering Health Washington TownshipComment on above:Result Comment: PERFORMED BY:[address] [place], [place] [phone] MEDICAL DIRECTORKIMBERLYN SINGER M.D.Performed By: #### BMP, CBC ####[address] [address] USAEstimated GFR ( Brenda> 60[facility] Comment on above:Result Comment: GFR estimated reference range: According to KDOQI guidelines, <60 ml/min/1.73m2 is sufficient to diagnose a patient with chronic kidney disease.Performed By: #### BMP, CBC ####[address] [address] USAEstimated GFR (Non- Am> 60[facility]opathic ClinicComment on above:Performed By: #### BMP, CBC ####[address] [address] USAGlucose [Mass/Vol]176 mg/dJWrvj83-461BmqbhkbspOur Lady Of Mercy Hospital - AndersonComment on above:Result Comment: Random Glucose Reference Range is dependent on time and content of last meal. Glucose of more than 200 mg/dL in a nonstressed, ambulatory subject supports the diagnosis of Diabetes Mellitus. ADA recommended reference rangePerformed By: #### BMP, CBC ####[address] [address] USAPotassium [Moles/Vol]3.9 mmol/LNormal 3.5-5.1FCleveland Clinic South Pointe HospitalComment on above:Performed By: #### BMP, CBC ####[address] [place] Sodium [Moles/Vol]131 mmol/FYop979-781YieufxeccOur Lady Of Mercy Hospital - AndersonComment on above:Performed By: #### BMP, CBC ####[address] USAUrea nitrogen [Mass/Vol]7 mg/dLLow9-23 [facility] - AndersonComment on above:Performed By: #### BMP, CBC ####[address] [facility] Complete Blood Count Auto Diffon 18-25-3911Cjkjbninr (Bld) [#/Vol]0.1 10*3/uL Normal0.0-0.2FCleveland Clinic South Pointe HospitalComment on above:Result Comment: PERFORMED BY:[address] [place], [place] [phone] MEDICAL DIRECTORKIMBERLYN SINGER M.D.Performed By: #### BMP, CBC ####[address] USABasophils/100 WBC (Bld)0.8 %Normal.[facility] - AndersonComment on above:Performed By: #### BMP, CBC ####[address] USAEosinophils (Bld) [#/Vol]0.3 10*3/uLNormal 0.0-0.45[facility] - AndersonComment on above:Performed By: #### BMP, CBC ####[address] USAEosinophils/100 WBC (Bld)3.2 %Normal.[facility] - AndersonComment on above:Performed By: #### BMP, CBC ####[address] USAErythrocyte distribution width (RBC) [Ratio] 15.8 %High11.9-15.3FCleveland Clinic South Pointe HospitalComment on above:Performed By: #### BMP, CBC ####[address] [address] USAHematocrit (Bld) [Volume fraction]26.2 %Low34.0-46.4FCleveland Clinic South Pointe HospitalComment on above:Performed By: #### BMP, CBC ####[address] [place] Hemoglobin (Bld) [Mass/Vol]8.7 g/dLLow11.8-15.4FC[facility] Hospital Comment on above:Performed By: #### BMP, CBC ####[address] [address] USALymphocytes (Bld) [#/Vol]2.6 10*3/uL Normal1.00-4.8[facility] - AndersonComment on above:Performed By: #### BMP, CBC ####[address] USALymphocytes/100 WBC (Bld)31.5 %Normal.[facility] Comment on above:Performed By: #### BMP, CBC ####[address] [address] USAMCH (RBC) [Entitic mass]30.4 pgNormal 24.7-34.3FCleveland Clinic South Pointe HospitalComment on above:Performed By: #### BMP, CBC ####[address] [address] USAMCV (RBC) [Entitic vol]91.0 lNIyjybn52-833PtqxbwzeqOur Lady Of Mercy Hospital - Anderson Comment on above:Performed By: #### BMP, CBC ####[address] [address] USAMean Corpuscular HGB Conc33.4 g/dL Hdrjct56.0-35.0[facility] - AndersonComment on above:Performed By: #### BMP, CBC ####[address] [place] [address] USAMonocytes (Bld) [#/Vol]0.7 10*3/uLNormal0.0-0.8[facility] - AndersonComment on above:Performed By: #### BMP, CBC ####[address] [address] USAMonocytes/100 WBC (Bld)8.4 %Normal.[facility] - AndersonComment on above:Performed By: #### BMP, CBC ####[address] [address] USANeutrophils (Bld) [#/Vol]4.7 10*3/uLNormal1.8-7.7FCleveland Clinic South Pointe HospitalComment on above:Performed By: #### BMP, CBC ####[address] [address] USANeutrophils/100 WBC (Bld)56.1 %Normal.[facility] - AndersonComment on above:Performed By: #### BMP, CBC ####[address] [address] USANRBC%0.1 /100{WBC}Normal0-0.5FC[facility] Comment on above:Performed By: #### BMP, CBC ####[address] [address] USAPlatelet mean volume (Bld) [Entitic vol]8.1 fLNormal6.3-10.7FCleveland Clinic South Pointe HospitalComment on above: Performed By: #### BMP, CBC ####[address] [address] USAPlatelets (Bld) [#/Vol]286 10*3/vDBlcocr009-322 [facility] - AndersonComment on above:Performed By: #### BMP, CBC ####[address] [address] USARBC (Bld) [#/Vol]2.88 10*6/uLLow3.60-5.00[facility] - AndersonComment on above:Performed By: #### BMP, CBC ####[address] [place] [address] USAWBC (Bld) [#/Vol]8.4 10*3/uLNormal3.8-11.6FCleveland Clinic South Pointe HospitalComtrinity health [place] on above:Performed By: #### BMP, CBC ####[address] [place] [address] USAGlucose Poct Glucometerson 33-25-6277Rwgzycq [Mass/Vol]223 mg/dLMarietta Osteopathic ClinicComtrinity health livonia on above:Result Comment: Random Glucose Reference Range is dependent on time and content of last meal. Glucose of more than 200 mg/dL in a nonstressed, ambulatory subject supports the diagnosis of Diabetes Mellitus.PERFORMED BY:[address]JELLY HUIZARTeeteeRASHAUN, [place] [phone] MEDICAL DIRECTORKIMBERLYN SINGER M.D.Performed By: #### GLULS ####Point of Care testing,Glucose [Mass/Vol]259 mg/dLMarietta Osteopathic ClinicComment on above:Result Comment: Random Glucose Reference Range is dependent on time and content of last meal. Glucose of more than 200 mg/dL in a nonstressed, ambulatory subject supports the diagnosis of Diabetes Mellitus.PERFORMED BY:[address] MARILYNHaroonJULITARASHAUN, [place] [phone] MEDICAL ANDRE SINGER M.D.Performed By: #### GLULS ####Point of Care testing,Glucose [Mass/Vol]261 mg/dLMarietta Osteopathic ClinicComment on above:Result Comment: Random Glucose Reference Range is dependent on time and content of last meal. Glucose of more than 200 mg/dL in a nonstressed, ambulatory subject supports the diagnosis of Diabetes Mellitus.PERFORMED BY:[address] HUIZARTeeteeRASHAUN, [place] [phone] MEDICAL ANDRE SINGER M.D.Performed By: #### GLULS ####Point of Care testing,Glucose [Mass/Vol]186 mg/dLNormSelect Medical Specialty Hospital - CantonComment on above:Result Comment: Random Glucose Reference Range is dependent on time and content of last meal. Glucose of more than 200 mg/dL in a nonstressed, ambulatory subject supports the diagnosis of Diabetes Mellitus.PERFORMED BY:[address] [place], [place] [phone] MEDICAL DIRECTORKIMBERLYN SINGER M.D.Performed By: #### GLULS ####Point of Care testing,Basic Metabolic Panelon 13-85-2416Forxu gap [Moles/Vol]8.5 mmol/LNormal6.0-15.0[facility] - AndersonComment on above:Performed By: #### DIFF CBC, BMP ####[address] [place] [address] USACalcium [Mass/Vol]8.1 mg/dLLow8.2-10.2 [facility] - AndersonComment on above:Performed By: #### DIFF CBC, BMP ####[facility] [address] [place] [address] [place] Chloride [Moles/Vol]100 mmol/HEikidr99-432UwqvkedcnOur Lady Of Mercy Hospital - Anderson Comment on above:Performed By: #### DIFF CBC, BMP ####[facility] [address] [place] [address] USACO2 [Moles/Vol]27.1 mmol/LNormal 22.0-30.0[facility] - AndersonComment on above:Performed By: #### DIFF CBC, BMP ####[facility] [address] [place] [address] USACreatinine [Mass/Vol]0.71 mg/dLNormal0.44-1.03[facility] - AndersonComment on above:Performed By: #### DIFF CBC, BMP ####[facility] [address] [place] [address] USACreatinine Clr Calc Altkjhel13.50NormSelect Medical Specialty Hospital - CantonComment on above:Result Comment: PERFORMED BY:[address] BALDERRAMALUNA PIER, [place] [phone] MEDICAL DIRECTORKIMBERLYN SINGER M.D.Performed By: #### DIFF CBC, BMP ####[address] [place] [address] USAEstimated GFR ( Brenda> 60NormSelect Medical Specialty Hospital - CantonComment on above:Result Comment: GFR estimated reference range: According to KDOQI guidelines, <60 ml/min/1.73m2 is sufficient to diagnose a patient with chronic kidney disease.Performed By: #### DIFF CBC, BMP ####[address] [place] [address] USAEstimated GFR (Non- Am> 60NoKettering Health Washington TownshipComment on above:Performed By: #### DIFF CBC, BMP ####[address] [address] USAGlucose [Mass/Vol]151 mg/oTIqhw95-405KetkbwsajOur Lady Of Mercy Hospital - Anderson Comment on above:Result Comment: Random Glucose Reference Range is dependent on time and content of last meal. Glucose of more than 200 mg/dL in a nonstressed, ambulatory subject supports the diagnosis of Diabetes Mellitus. ADA recommended reference rangePerformed By: #### DIFF CBC, BMP ####[address] [address] USAPotassium [Moles/Vol]3.6 mmol/LNormal 3.5-5.1FCleveland Clinic South Pointe HospitalComment on above:Performed By: #### DIFF CBC, BMP ####[address] [address] USASodium [Moles/Vol]132 mmol/USyj736-848ZzcqveqtrOur Lady Of Mercy Hospital - Anderson Comment on above:Performed By: #### DIFF CBC, BMP ####[address] [address] USAUrea nitrogen [Mass/Vol]4 mg/dLLow 9-23[facility] - AndersonComment on above:Performed By: #### DIFF CBC, BMP ####[address] [address] USABasophils/100 WBC Manual cnt (Bld)Ordered By: Nicolasa Hull on 03-17-2022 Basophils/100 WBC (Bld)0 %0-2FCleveland Clinic South Pointe HospitalDiff and CBCon 39-13-6593Ptqjpgojpxpm Ql (Bld)SlightNormalOur Lady Of Mercy Hospital - Anderson Comment on above:Performed By: #### DIFF CBC, BMP ####[facility] [address] [place] [address] USABand form neutrophils/100 WBC (Bld)1 %Normal0-5FCleveland Clinic South Pointe HospitalComment on above:Performed By: #### DIFF CBC, BMP ####[address] [place] [address] USABasophils/100 WBC (Bld)0 %Normal0-2FC[facility] Hospital Comment on above:Performed By: #### DIFF CBC, BMP ####[address] [place] [address] USAEosinophils/100 WBC (Bld)4 %High1-3 [facility] - AndersonComment on above:Performed By: #### DIFF CBC, BMP ####[address] [place] [address] [place] Erythrocyte distribution width (RBC) [Ratio]15.9 %High11.9-15.3FCleveland Clinic South Pointe HospitalComment on above:Performed By: #### DIFF CBC, BMP ####[address] [place] [address] [place] Hematocrit (Bld) [Volume fraction]27.0 %Low34.0-46.4FCleveland Clinic South Pointe HospitalComment on above:Performed By: #### DIFF CBC, BMP ####[address] [place] [address] USAHemoglobin (Bld) [Mass/Vol]9.0 g/dLLow11.8-15.4FCleveland Clinic South Pointe HospitalComment on above:Performed By: #### DIFF CBC, BMP ####[address] [place] [address] USALymphocytes/100 WBC (Bld)19 %Cpyikv07-90PobwlttzjOur Lady Of Mercy Hospital - AndersonComment on above:Performed By: #### DIFF CBC, BMP ####[address] [address] [facility] (RBC) [Entitic mass]30.5 ohRgkdby24.7-34.3FCleveland Clinic South Pointe HospitalComment on above:Performed By: #### DIFF CBC, BMP ####[address] [address] [facility] (RBC) [Entitic vol]91.4 zCDwcpau02-163ZiiqjlqniOur Lady Of Mercy Hospital - AndersonComment on above:Performed By: #### DIFF CBC, BMP ####[address] [address] USAMean Corpuscular HGB Conc33.4 g/dQPcvzod42.0-35.0[facility] - AndersonComment on above:Performed By: #### DIFF CBC, BMP ####[address] [address] USAMetamyelocytes1 %High0-0[facility] - AndersonComment on above:Performed By: #### DIFF CBC, BMP ####[address] [address] USAMonocytes/100 WBC (Bld)10 % Normal2-11[facility] - AndersonComment on above:Performed By: #### DIFF CBC, BMP ####[address] [address] USAMyelocytes3 %High0-0[facility] - AndersonComment on above: Performed By: #### DIFF CBC, BMP ####[address] [address] USAPlatelet EstimateNormalNormalNormalOur Lady Of Mercy Hospital - AndersonComment on above:Performed By: #### DIFF CBC, BMP ####[address] [address] [place] Platelet mean volume (Bld) [Entitic vol]7.9 fLNormal6.3-10.7FCleveland Clinic South Pointe HospitalComment on above:Performed By: #### DIFF CBC, BMP ####[facility] [address] [place] [address] USAPlatelet Morphology NormalNormalNoKettering Health Washington TownshipComment on above:Result Comment: PERFORMED BY:[address] [place], [place] [phone] MEDICAL DIRECTORKIMBERLYN SIGNER M.D.Performed By: #### DIFF CBC, BMP ####[address] [address] USAPlatelets (Bld) [#/Vol]255 10*3/iGGyqqdm855-393TrtbxxqudOur Lady Of Mercy Hospital - AndersonComment on above:Performed By: #### DIFF CBC, BMP ####[address] [address] USAPolychromasiaSlight Marietta Osteopathic ClinicComment on above:Performed By: #### DIFF CBC, BMP ####[address] [address] USARBC (Bld) [#/Vol]2.96 10*6/uLLow3.60-5.00[facility] Comment on above:Performed By: #### DIFF CBC, BMP ####[address] [address] USASegmented neutrophils/100 WBC (Bld)62 %Wgixgu80-16AxmzjnlihOur Lady Of Mercy Hospital - AndersonComment on above:Performed By: #### DIFF CBC, BMP ####[address] [address] USAWBC (Bld) [#/Vol]5.9 10*3/uLNormal3.8-11.6FCleveland Clinic South Pointe HospitalComment on above:Performed By: #### DIFF CBC, BMP ####[address] [address] USAGlucose Poct Glucometerson 88-16-8219Amlkwwi [Mass/Vol]243 mg/dLMarietta Osteopathic Clinic Comment on above:Result Comment: Random Glucose Reference Range is dependent on time and content of last meal. Glucose of more than 200 mg/dL in a nonstressed, ambulatory subject supports the diagnosis of Diabetes Mellitus.PERFORMED BY:[address] AVHaroonTeeteeRASHAUNSHERWO[place], [place] [phone] MEDICAL ANDRE SINGER M.D.Performed By: #### GLULS ####Point of Care testing,Glucose [Mass/Vol]210 mg/dLMarietta Osteopathic ClinicComment on above:Result Comment: Random Glucose Reference Range is dependent on time and content of last meal. Glucose of more than 200 mg/dL in a nonstressed, ambulatory subject supports the diagnosis of Diabetes Mellitus.PERFORMED BY:[address] MARILYNHaroonTeeteeRASHAUN, [place] [phone] MEDICAL DIRECTORKIMBERLYN SINGER M.D.Performed By: #### GLULS ####Point of Care testing,Glucose [Mass/Vol]204 mg/dLMarietta Osteopathic ClinicComment on above:Result Comment: Random Glucose Reference Range is dependent on time and content of last meal. Glucose of more than 200 mg/dL in a nonstressed, ambulatory subject supports the diagnosis of Diabetes Mellitus.PERFORMED BY:[address] MARILYNHaroonTeeteeRASHAUNSHERWOOD, [place] [phone] MEDICAL ANDRE SINGER M.D.Performed By: #### GLULS ####Point of Care testing,Wwacofu5Ekj1: Cleaned MeterMarietta Osteopathic ClinicComment on above:Result Comment: PERFORMED BY:[address] BALDERRAMARASHAUNSHERWOOD, [place] [phone] MEDICAL ANDRE SINGER M.D.Performed By: #### GLULS ####Point of Care testing,Glucose [Mass/Vol]171 mg/dLMarietta Osteopathic Clinic Comment on above:Result Comment: Random Glucose Reference Range is dependent on time and content of last meal. Glucose of more than 200 mg/dL in a nonstressed, ambulatory subject supports the diagnosis of Diabetes Mellitus.Performed By: #### GLULS ####Point of Care testing,Bacterial blood cultureOrdered By: Denice Buckner on 86-77-9275Ngcuhmah identified Cx Nom (Bld)NO GROWTH 5 DAYSOur Lady Of Mercy Hospital - AndersonBasic Metabolic Panelon 31-50-2077Xzseo gap [Moles/Vol] 8.5 mmol/LNormal6.0-15.0[facility] - AndersonComment on above: Performed By: #### BMP, DIFF CBC ####[address] [address] USACalcium [Mass/Vol]8.0 mg/dLLow8.2-10.2FCleveland Clinic South Pointe HospitalComment on above:Performed By: #### BMP, DIFF CBC ####[address] [address] [place] Chloride [Moles/Vol]99 mmol/GYprvje31-588HmmvjbmeyOur Lady Of Mercy Hospital - Anderson Comment on above:Performed By: #### BMP, DIFF CBC ####[address] [address] USACO2 [Moles/Vol]25.9 mmol/LNormal 22.0-30.0[facility] - AndersonComment on above:Performed By: #### BMP, DIFF CBC ####[address] [address] USACreatinine [Mass/Vol]0.62 mg/dLNormal0.44-1.03[facility] - AndersonComment on above:Performed By: #### BMP, DIFF CBC ####[address] [address] USACreatinine Clr Calc Pvnlznuy06.92NoKettering Health Washington TownshipComment on above:Result Comment: PERFORMED BY:[address] [place], [place] [phone] MEDICAL DIRECTORKIMBERLYN SINGER M.D.Performed By: #### BMP, DIFF CBC ####[address] [address] USAEstimated GFR ( Brenda> 60NoKettering Health Washington TownshipComment on above:Result Comment: GFR estimated reference range: According to KDOQI guidelines, <60 ml/min/1.73m2 is sufficient to diagnose a patient with chronic kidney disease.Performed By: #### BMP, DIFF CBC ####[address] [address] USAEstimated GFR (Non- Am> 60NormalOur Lady Of Mercy Hospital - AndersonComment on above:Performed By: #### BMP, DIFF CBC ####[address] [address] USAGlucose [Mass/Vol]146 mg/sNMjwo51-894VbdykykswOur Lady Of Mercy Hospital - Anderson Comment on above:Result Comment: Random Glucose Reference Range is dependent on time and content of last meal. Glucose of more than 200 mg/dL in a nonstressed, ambulatory subject supports the diagnosis of Diabetes Mellitus. ADA recommended reference rangePerformed By: #### BMP, DIFF CBC ####[address] [address] USAPotassium [Moles/Vol]3.4 mmol/LLow 3.5-5.1FCleveland Clinic South Pointe HospitalComment on above:Performed By: #### BMP, DIFF CBC ####[address] [address] USASodium [Moles/Vol]130 mmol/RBzj632-415UejojcrwwOur Lady Of Mercy Hospital - Anderson Comment on above:Performed By: #### BMP, DIFF CBC ####[address] [address] USAUrea nitrogen [Mass/Vol]3 mg/dLLow 9-23[facility] - AndersonComment on above:Performed By: #### BMP, DIFF CBC ####[address] [address] USABlood thiamine measurement (moles/volume)Ordered By: Nicolasa Hull on 26-13-1610Ekltiqyf (Bld) [Moles/Vol]109.4 nmol/L66.5-200.0[facility] - AndersonComment on above:This test was developed and its performance characteristicsdetermined by [employer]. It has not been cleared orapproved by the Food and Drug Administration.Performed at: [facility] - [facility] [address] [id number] Director: Kush Wiseman MD, Phone: [phone] and MARIAHon 08-30-5321Iandoblrireo Ql (Bld)[facility]Hyde Memorial HospitalComment on above:Performed By: #### BMP, DIFF CBC ####[address] [place] [address] [place] Basophils/100 WBC (Bld)1 %Normal0-2FCleveland Clinic South Pointe HospitalComment on above:Performed By: #### BMP, DIFF CBC ####[address] [place] [address] USAEosinophils/100 WBC (Bld)4 %High1-3FCleveland Clinic South Pointe HospitalComment on above:Performed By: #### BMP, DIFF CBC ####[address] [address] [facility] Erythrocyte distribution width (RBC) [Ratio]15.8 %High11.9-15.3FCleveland Clinic South Pointe HospitalComment on above:Performed By: #### BMP, DIFF CBC ####[address] [address] [facility] Hematocrit (Bld) [Volume fraction]24.2 %Low34.0-46.4FCleveland Clinic South Pointe HospitalComment on above:Performed By: #### BMP, DIFF CBC ####[address] [address] USAHemoglobin (Bld) [Mass/Vol]8.2 g/dLLow11.8-15.4FCleveland Clinic South Pointe HospitalComment on above:Performed By: #### BMP, DIFF CBC ####[address] [address] USALymphocytes/100 WBC (Bld)18 %Uhzewc45-56EhjtsxzxuOur Lady Of Mercy Hospital - AndersonComment on above:Performed By: #### BMP, DIFF CBC ####[address] [address] USAMCH (RBC) [Entitic mass]30.9 pbMosmwh86.7-34.3FCleveland Clinic South Pointe HospitalComment on above:Performed By: #### BMP, DIFF CBC ####[address] [address] USAMCV (RBC) [Entitic vol]90.9 eOOryiru57-313YhadeynrmOur Lady Of Mercy Hospital - AndersonComment on above:Performed By: #### BMP, DIFF CBC ####[address] [address] USAMean Corpuscular HGB Conc33.9 g/fYFxwtgm40.0-35.0[facility] - AndersonComment on above:Performed By: #### BMP, DIFF CBC ####[address] [address] USAMetamyelocytes2 %High0-0[facility] - AndersonComment on above:Performed By: #### BMP, DIFF CBC ####[address] [address] USAMonocytes/100 WBC (Bld)8 % Normal2-11[facility] - AndersonComment on above:Performed By: #### BMP, DIFF CBC ####[address] [address] USAMyelocytes2 %High0-0[facility] - AndersonComment on above: Performed By: #### BMP, DIFF CBC ####[address] [address] USAPlatelet EstimateNormalNormalNormalOur Lady Of Mercy Hospital - AndersonComment on above:Performed By: #### BMP, DIFF CBC ####[address] [address] [place] Platelet mean volume (Bld) [Entitic vol]8.0 fLNormal6.3-10.7FCleveland Clinic South Pointe HospitalComment on above:Result Comment: PERFORMED BY:[address] [place], [place] [phone] MEDICAL ANDRE SINGER M.D.Performed By: #### BMP, DIFF CBC ####[address] [address] USAPlatelet MorphologyNormal NormalNoKettering Health Washington TownshipComment on above:Result Comment: PERFORMED BY:[address] [place], [place] [phone] MEDICAL ANDRE SINGER M.D.Performed By: #### BMP, DIFF CBC ####[address] [address] USAPlatelets (Bld) [#/Vol]223 10*3/uQAmeqvn220-195UbdrmmbxuOur Lady Of Mercy Hospital - AndersonComment on above:Performed By: #### BMP, DIFF CBC ####[address] [address] USAPolychromasiaSlight Marietta Osteopathic ClinicComment on above:Performed By: #### BMP, DIFF CBC ####[address] [address] USARBC (Bld) [#/Vol]2.66 10*6/uLLow3.60-5.00[facility] Comment on above:Performed By: #### BMP, DIFF CBC ####[address] [address] USASchistocytesSlightNoKettering Health Washington TownshipComment on above:Performed By: #### BMP, DIFF CBC ####[address] [address] [place] Segmented neutrophils/100 WBC (Bld)65 %Jtrxre02-07VqpcmdeeiOur Lady Of Mercy Hospital - AndersonComment on above:Performed By: #### BMP, DIFF CBC ####[address] [address] USAWBC (Bld) [#/Vol]5.5 10*3/uL Normal3.8-11.6FCleveland Clinic South Pointe HospitalComment on above:Performed By: #### BMP, DIFF CBC ####[address] [address] USAGlucose Poct Glucometerson 63-92-0170Nimpwxm5Qpl6: Cleaned Meter [facility] ClinicComment on above:Result Comment: PERFORMED BY:[address]ERJE[address] BALDERRAMARASHAUNSHERWOOD, [place] [phone] MEDICAL ANDRE SINGER M.D.Performed By: #### GLULS ####Point of Care testing,Glucose [Mass/Vol]213 mg/dLMarietta Osteopathic ClinicComment on above:Result Comment: Random Glucose Reference Range is dependent on time and content of last meal. Glucose of more than 200 mg/dL in a nonstressed, ambulatory subject supports the diagnosis of Diabetes Mellitus.Performed By: #### GLULS ####Point of Care testing,Vvgfznp3Sqn3: Cleaned MeterMarietta Osteopathic ClinicComment on above:Performed By: #### GLULS ####Point of Care testing,Btnjpvk3GGGCECL SCALE COVERANormal [facility] - AndersonComment on above:Result Comment: PERFORMED BY:[address]RASHERJE[address] BALDERRAMARASHAUN, [place] [phone] MEDICAL DIRECTORKIMBERLYN SINGER M.D.Performed By: #### GLULS ####Point of Care testing,Glucose [Mass/Vol]164 mg/dLMarietta Osteopathic ClinicComment on above:Result Comment: Random Glucose Reference Range is dependent on time and content of last meal. Glucose of more than 200 mg/dL in a nonstressed, ambulatory subject supports the diagnosis of Diabetes Mellitus. Performed By: #### GLULS ####Point of Care testing,Glucose [Mass/Vol]272 mg/dL [facility] ClinicComment on above:Result Comment: Random Glucose Reference Range is dependent on time and content of last meal. Glucose of more than 200 mg/dL in a nonstressed, ambulatory subject supports the diagnosis of Diabetes Mellitus.PERFORMED BY:[address]JE[address] BALDERRAMARASHAUNSHERWOOD, [place] [phone] MEDICAL DIRECTORKIMBERLYN SINGER M.D.Performed By: #### GLULS ####Point of Care testing,No Panel InformationOrdered By: Wilian Pearson on 63-90-8418Nikecbl Glucose #2 CommentSliding scale coverProtestant Hospitalchistocytes [Presence] in Blood by Light microscopyOrdered By: Nicolasa Hull on 03-16-2022 Schistocytes LM Ql (Bld)Tuscarawas HospitalVitamin B1 (Thiamine) Bloodon 28-25-7138Guhrudf B1 (Thiamine) Jdlhu205.5Ovguer82.5-200.0 [facility] - AndersonComment on above:Result Comment: This test was developed and its performance characteristics determined by [facility]. It has not been cleared or approved by the Food and Drug Administration. Performed at: [address] [id number] Deputy Administrator: Kush Wiseman MD, Phone: [phone] BY:[address] [place], [place] [phone] MEDICAL DIRECTORKIMBERLYN SINGER M.D.Performed By: #### VITB1 ####[facility] ,Body fluid albumin measurement (mass/volume)Ordered By: Wilian Pearson on 61-00-2366Wadfomi (Body fld) [Mass/Vol]2.1 g/dL3.2-5.5FCleveland Clinic South Pointe HospitalComprehensive Metabolic Panelon 76-54-5668Afuakek [Mass/Vol]2.1 g/dLLow 3.2-5.5FCleveland Clinic South Pointe HospitalComment on above:Performed By: #### MG, CMP ####[facility] [address] [place] [address] [place] Albumin/Globulin [Mass ratio]0.8 {ratio}[facility] Comment on above:Performed By: #### MG, CMP ####[facility] [address] [place] [address] USAALP [Catalytic activity/Vol]87 U/L Ifuthx80-11Jiytwekj[address] [place], [place] [address]Comment on above:Performed By: #### MG, CMP ####[facility] [place] [address] USAALT [Catalytic activity/Vol]13 U/VUhhhct01-59JcsylnphaOur Lady Of Mercy Hospital - AndersonComment on above:Performed By: #### MG, CMP ####[address] [place] [address] USAAnion gap [Moles/Vol]9.0 mmol/LNormal 6.0-15.0[facility] - AndersonComment on above:Performed By: #### MG, CMP ####[address] [address] [place] AST [Catalytic activity/Vol]13 U/CDgzaet12-98EonpniupvOur Lady Of Mercy Hospital - Anderson Comment on above:Performed By: #### MG, CMP ####[address] [address] USABilirubin [Mass/Vol]0.7 mg/dLNormal 0.3-1.2FCleveland Clinic South Pointe HospitalComment on above:Performed By: #### MG, CMP ####[address] [address] [place] Calcium [Mass/Vol]7.7 mg/dLLow8.2-10.2FCleveland Clinic South Pointe HospitalComment on above:Performed By: #### MG, CMP ####[address] [address] USAChloride [Moles/Vol]100 mmol/BUmofwk55-620AkljuwgohOur Lady Of Mercy Hospital - AndersonComment on above:Performed By: #### MG, CMP ####[address] [address] USACO2 [Moles/Vol]26.3 mmol/UFvlrwj71.0-30.0[facility] - AndersonComment on above:Performed By: #### MG, CMP ####[address] [address] USACreatinine [Mass/Vol]0.61 mg/dLNormal0.44-1.03 [facility] - AndersonComment on above:Performed By: #### MG, CMP ####[address] [address] [place] Creatinine Clr Calc Chqzivds36.33NoKettering Health Washington TownshipComment on above:Performed By: #### MG, CMP ####[address] USAEstimated GFR ( Brenda> 60[facility] ClinicComment on above:Result Comment: GFR estimated reference range: According to KDOQI guidelines, <60 ml/min/1.73m2 is sufficient to diagnose a patient with chronic kidney disease.Performed By: #### MG, CMP ####[address] Estimated GFR (Non- Am> 60[facility] ClinicComment on above:Performed By: #### MG, CMP ####[address] USAGlobulin (S) [Mass/Vol]2.8 g/dLMarietta Osteopathic ClinicComment on above:Performed By: #### MG, CMP ####[place] [address] USAGlucose [Mass/Vol] 151 mg/nKLwyj18-383TkyvaomohOur Lady Of Mercy Hospital - AndersonComment on above:Result Comment: Random Glucose Reference Range is dependent on time and content of last meal. Glucose of more than 200 mg/dL in a nonstressed, ambulatory subject supports the diagnosis of Diabetes Mellitus. ADA recommended reference range Performed By: #### MG, CMP ####[address] USAPotassium [Moles/Vol]3.3 mmol/LLow3.5-5.1FCleveland Clinic South Pointe HospitalComment on above:Performed By: #### MG, CMP ####[address] USAProtein [Mass/Vol] 4.9 g/dLLow6.1-7.9[facility] - AndersonComment on above:Performed By: #### MG, CMP ####[address] USASodium [Moles/Vol]132 mmol/JTwq363-545AkdqncgmsOur Lady Of Mercy Hospital - AndersonComment on above:Performed By: #### MG, CMP ####[address] USAUrea nitrogen [Mass/Vol]4 mg/dLLow 9-23[facility] - AndersonComment on above:Performed By: #### MG, CMP ####[address] USADiff and CBCon 61-35-8862Bqeaibfxepgw Ql (Bld)SlightNormalOur Lady Of Mercy Hospital - AndersonComment on above:Performed By: #### PATH SLIDE REV, DIFF CBC ####[place] [address] USAEosinophils/100 WBC (Bld)2 %Normal1-3FCleveland Clinic South Pointe HospitalComment on above:Performed By: #### PATH SLIDE REV, DIFF CBC ####[place] [address] USAErythrocyte distribution width (RBC) [Ratio]16.4 % High11.9-15.3FCleveland Clinic South Pointe HospitalComment on above:Performed By: #### PATH SLIDE REV, DIFF CBC ####[place] [address] USAGiant Platelet Tally3 /100{WBC}NormalOur Lady Of Mercy Hospital - AndersonComment on above:Performed By: #### PATH SLIDE REV, DIFF CBC ####[address] [place] Hematocrit (Bld) [Volume fraction]22.6 %Low34.0-46.4FCleveland Clinic South Pointe HospitalComment on above:Performed By: #### PATH SLIDE REV, DIFF CBC ####[address] USAHemoglobin (Bld) [Mass/Vol]7.7 g/dLLow11.8-15.4FCleveland Clinic South Pointe HospitalComment on above: Performed By: #### PATH SLIDE REV, DIFF CBC ####[address] USALymphocytes/100 WBC (Bld)16 %Xhv47-77 [facility] - AndersonComment on above:Performed By: #### PATH SLIDE REV, DIFF CBC ####[address] [address] [facility] (RBC) [Entitic mass]30.6 scJrfmhb26.7-34.3FCleveland Clinic South Pointe HospitalComment on above:Performed By: #### PATH SLIDE REV, DIFF CBC ####[address] [address] [facility] (RBC) [Entitic vol]90.2 bFXjntom83-435HpodisqsyOur Lady Of Mercy Hospital - AndersonComment on above:Performed By: #### PATH SLIDE REV, DIFF CBC ####[address] [address] USAMean Corpuscular HGB Conc33.9 g/gDVhcsvy26.0-35.0[facility] - AndersonComment on above:Performed By: #### PATH SLIDE REV, DIFF CBC ####[address] [address] USAMetamyelocytes4 %High0-0[facility] - AndersonComment on above:Performed By: #### PATH SLIDE REV, DIFF CBC ####[address] [address] USAMicrocytosisSlight NormalOur Lady Of Mercy Hospital - AndersonComment on above:Performed By: #### PATH SLIDE REV, DIFF CBC ####[address] [address] USAMonocytes/100 WBC (Bld)10 %Normal2-11[facility] - AndersonComment on above:Performed By: #### PATH SLIDE REV, DIFF CBC ####[address] [address] USAMyelocytes6 %High0-0 [facility] - AndersonComment on above:Performed By: #### PATH SLIDE REV, DIFF CBC ####[address] [address] USAPlatelet EstimateNormalNormalNoKettering Health Washington Township Comment on above:Performed By: #### PATH SLIDE REV, DIFF CBC ####[address] [address] USAPlatelet mean volume (Bld) [Entitic vol]8.2 fLNormal6.3-10.7FCleveland Clinic South Pointe HospitalComment on above:Performed By: #### PATH SLIDE REV, DIFF CBC ####[address] [address] USAPlatelet MorphologyNormal NormalNoKettering Health Washington TownshipComment on above:Result Comment: PERFORMED BY:[address] [place], [place] [phone] MEDICAL ANDRE SINGER M.D.Performed By: #### PATH SLIDE REV, DIFF CBC ####[address] [address] USAPlatelets (Bld) [#/Vol]214 10*3/mBOtujnu187-667 [facility] - AndersonComment on above:Performed By: #### PATH SLIDE REV, DIFF CBC ####[address] [address] USAPolychromasiaSlightMarietta Osteopathic ClinicComment on above:Performed By: #### PATH SLIDE REV, DIFF CBC ####[address] [address] USARBC (Bld) [#/Vol]2.50 10*6/uLLow 3.60-5.00[facility] - AndersonComment on above:Performed By: #### PATH SLIDE REV, DIFF CBC ####[address] [address] USASegmented neutrophils/100 WBC (Bld)63 %Uemvrd84-94 [facility] - AndersonComment on above:Performed By: #### PATH SLIDE REV, DIFF CBC ####[address] [address] USAWBC (Bld) [#/Vol]4.6 10*3/uLNormal3.8-11.6FCleveland Clinic South Pointe HospitalComment on above:Performed By: #### PATH SLIDE REV, DIFF CBC ####[facility] [address] Sidd[place]iselect [place] [address] USAFolate [Mass/volume] in Serum or PlasmaOrdered By: Lea Judd on 92-11-1536Ucivbw [Mass/Vol] 15.0 ng/mL>5.9[facility] - AndersonComment on above:Folate reference range: >5.9 ng/mlThe WHO technical consultation on folate and vitamin y05nqwrruldhrvw has determined that folate concentrations lessthan 4 ng/ml are considered deficient.Globulin Calc (S) [Mass/Vol]Ordered By: Wilian Pearson on 18-14-9138Ztxaikav (S) [Mass/Vol]2.8 g/dLOur Lady Of Mercy Hospital - Anderson Glucose Poct Glucometerson 22-84-3902Jaydwzx5Uus7: Cleaned MeterMarietta Osteopathic ClinicComment on above:Result Comment: PERFORMED BY:[address] [address] HUIZARTeeteeRASHAUN, [place] [phone] MEDICAL DIRECTORKIMBERLYN SINGER M.D.Performed By: #### GLULS ####Point of Care testing,Glucose [Mass/Vol]206 mg/dLMarietta Osteopathic Clinic Comment on above:Result Comment: Random Glucose Reference Range is dependent on time and content of last meal. Glucose of more than 200 mg/dL in a nonstressed, ambulatory subject supports the diagnosis of Diabetes Mellitus.Performed By: #### GLULS ####Point of Care testing,Glucose [Mass/Vol]186 mg/dLMarietta Osteopathic ClinicComment on above:Result Comment: Random Glucose Reference Range is dependent on time and content of last meal. Glucose of more than 200 mg/dL in a nonstressed, ambulatory subject supports the diagnosis of Diabetes Mellitus.PERFORMED BY:[address] [place] [place], [place] [phone] MEDICAL DIRECTORKIMBERLYN SINGER M.D.Performed By: #### GLULS ####Point of Care testing,Qgbjzom9Dms3: Cleaned [facility]lyria Medical CenterComment on above:Result Comment: PERFORMED BY:[address] HUIZARTeeteeRASHA[place], [place] [phone] MEDICAL DIRECTORKIMBERLYN SINGER M.D.Performed By: #### GLULS ####Point of Care testing,Glucose [Mass/Vol]184 mg/dLMarietta Osteopathic Clinic Comment on above:Result Comment: Random Glucose Reference Range is dependent on time and content of last meal. Glucose of more than 200 mg/dL in a nonstressed, ambulatory subject supports the diagnosis of Diabetes Mellitus.Performed By: #### GLULS ####Point of Care testing,Fifdjle8Fip7: Cleaned [facility]lyria Medical CenterComment on above:Result Comment: PERFORMED BY:[address]ZARTeeteeRASHAUNSH[place]WO[place], [place] [phone] MEDICAL DIRECTORKIMBERLYN SINGER M.D.Performed By: #### GLULS ####Point of Care testing,Glucose [Mass/Vol]169 mg/dLMarietta Osteopathic Clinic Comment on above:Result Comment: Random Glucose Reference Range is dependent on time and content of last meal. Glucose of more than 200 mg/dL in a nonstressed, ambulatory subject supports the diagnosis of Diabetes Mellitus.Performed By: #### GLULS ####Point of Care testing,Jeremy 71-47-0147LGludrlCpudtisqvOur Lady Of Mercy Hospital - AndersonLaboratory - Chemistry and Chemistry - challengeOrdered By: Lea Judd on 70-85-5494Bnjuenitb (Vitamin B12) [Mass/Vol]391 pg/mL 180-914[facility] - AndersonLaboratory - Chemistry and Chemistry - challengeOrdered By: Nicolasa Hull on 63-94-4378Ihvvebmlj [Mass/Vol]1.7 mg/dL 1.6-2.6FCleveland Clinic South Pointe HospitalMagnesiumon 01-30-6263Ronwtoqyn [Mass/Vol]1.7 mg/dLNormal1.6-2.6Fire[facility] Medical CenterComment on above:Result Comment: PERFORMED BY:[address] [place], [place] [phone] MEDICAL DIRECTORKIMBERLYN SINGER M.D. Performed By: #### MG, CMP ####[address] [place] [address] USAMicrocytes LM Ql (Bld)Ordered By: Wilian Pearson on 73-52-1437Mbffcvyghi Ql (Bld)SlightOur Lady Of Mercy Hospital - AndersonNo Panel InformationOrdered By: Wilian Pearson on 56-93-6326Mlwrgm for Pathologist ReviewOrdered path reviewOur Lady Of Mercy Hospital - Anderson Pathologist Slide Reviewon 78-04-0133Mdgspnaaama Slide ReviewOrdered Path Review NormalOur Lady Of Mercy Hospital - AndersonComment on above:Result Comment: PERFORMED BY:[address] [place], [place] [phone] MEDICAL DIRECTORKIMBERLYN SINGER M.D.Performed By: #### PATH SLIDE REV, DIFF CBC ####[facility] [address] [place] [address] USAProtein [Mass/volume] in Serum or PlasmaOrdered By: Wilian Pearson on 55-44-6413Krcszqo [Mass/Vol]4.9 g/dL6.1-7.9[facility] Centererum or plasma alanine aminotransferase measurement without P-5'-P (enzymatic activiOrdered By: Wilian Pearson on 13-16-6532UXL No additional P-5'-P [Catalytic activity/Vol]13 U/A30-42DevifalanSamaritan North Health Centererum or plasma albumin/globulin mass ratioOrdered By: Wilian Pearson on 65-14-8859Fmhbljf/Globulin [Mass ratio]0.8 {ratio}[facility] Centererum or plasma alkaline phosphatase measurement (enzymatic activity/volume)Ordered By: Wilian Pearson on 80-96-9343LSQ [Catalytic activity/Vol]87 U/X99-78DwsizspusSamaritan North Health Centererum or plasma aspartate aminotransferase measurement (enzymatic activity/volume)Ordered By: Wilian Pearson on 72-10-8646WBY [Catalytic activity/Vol]13 U/L10-42 [facility] Centererum or plasma total bilirubin measurement (mass/volume)Ordered By: Wilian Pearson on 64-75-8405Cnmgyiulf [Mass/Vol] 0.7 mg/dL0.3-1.2FCleveland Clinic South Pointe HospitalVit. B12/Folate Profileon 90-11-4147Tdfiqaglp (Vitamin B12) [Mass/Vol]391 pg/uTXvrnat776-752CbseunanrOur Lady Of Mercy Hospital - AndersonComment on above:Performed By: #### [id number] ####[address] [address] USAFolate 15.0 ng/mLNormal>5.9Our [facility] Hospital - AndersonComment on above:Result Comment: Folate reference range: >5.9 ng/ml The WHO technical consultation on folate and vitamin b12 deficiencies has determined that folate concentrations less than 4 ng/ml are considered deficient.PERFORMED BY:[address] [place], [place] [phone] MEDICAL DIRECTORKIMBERLYN SINGER M.D.Performed By: #### [id number] ####[address] [address] USABasic Metabolic Panelon 52-80-7060Kqhfa gap [Moles/Vol]8.7 mmol/LNormal6.0-15.0[facility] - AndersonComment on above:Performed By: #### MG, BMP ####[address] [address] USACalcium [Mass/Vol]7.5 mg/dL Low8.2-10.2FCleveland Clinic South Pointe HospitalComment on above:Performed By: #### MG, BMP ####[address] [address] USAChloride [Moles/Vol]97 mmol/MDecjsi68-385XnomcbfvqOur Lady Of Mercy Hospital - Anderson Comment on above:Performed By: #### MG, BMP ####[address] [address] USACO2 [Moles/Vol]26.7 mmol/LNormal 22.0-30.0[facility] - AndersonComment on above:Performed By: #### MG, BMP ####[place] [address] USACreatinine [Mass/Vol]0.62 mg/dLNormal0.44-1.03[facility] - AndersonComment on above:Performed By: #### MG, BMP ####[place] [address] USACreatinine Clr Calc Eplmvhno59.33 NormalOur Lady Of Mercy Hospital - AndersonComment on above:Performed By: #### MG, BMP ####[address] [place] Estimated GFR ( Brenda> 60NormalOur Lady Of Mercy Hospital - AndersonComment on above:Result Comment: GFR estimated reference range: According to KDOQI guidelines, <60 ml/min/1.73m2 is sufficient to diagnose a patient with chronic kidney disease.Performed By: #### MG, BMP ####[address] USAEstimated GFR (Non- Am> 60Normal [facility] - AndersonComment on above:Performed By: #### MG, BMP ####[address] USAGlucose [Mass/Vol]144 mg/eNNohq50-660RisipwqldOur Lady Of Mercy Hospital - AndersonComment on above: Result Comment: Random Glucose Reference Range is dependent on time and content of last meal. Glucose of more than 200 mg/dL in a nonstressed, ambulatory subject supports the diagnosis of Diabetes Mellitus. ADA recommended reference rangePerformed By: #### MG, BMP ####[address] USAPotassium [Moles/Vol]3.4 mmol/LLow3.5-5.1FCleveland Clinic South Pointe HospitalComment on above:Performed By: #### MG, BMP ####[address] USASodium [Moles/Vol] 129 mmol/WAve937-736YmlyjvuytOur Lady Of Mercy Hospital - AndersonComment on above:Performed By: #### MG, BMP ####[facility] [address] [place] [address] USAUrea nitrogen [Mass/Vol]7 mg/dLLow9-[facility] Hospital - AndersonComment on above:Performed By: #### MG, BMP ####[facility] [address] [place] [address] USAECG 12 lead ECGon 33-31-7850MMV 12 lead ECGMarietta Osteopathic ClinicFecal occult blood detection by immunochemistryOrdered By: Rachel Persaud on 03-14-2022 Hemoglobin.gastrointestinal Ql (Stl)[facility] - AndersonGlucose Poct Glucometerson 17-21-6418Bykkmfo [Mass/Vol]219 mg/dLMarietta Osteopathic ClinicComment on above:Result Comment: Random Glucose Reference Range is dependent on time and content of last meal. Glucose of more than 200 mg/dL in a nonstressed, ambulatory subject supports the diagnosis of Diabetes Estephania litus.PERFORMED BY:[address] [place], [place] [phone] MEDICAL DIRECTORKIMBERLYN SINGER M.D.Performed By: #### GLULS ####Point of Care testing,Glucose [Mass/Vol]208 mg/dLMarietta Osteopathic ClinicComment on above:Result Comment: Random Glucose Reference Range is dependent on time and content of last meal. Glucose of more than 200 mg/dL in a nonstressed, ambulatory subject supports the diagnosis of Diabetes Mellitus.PERFORMED BY:[address] [place], [place] [phone] MEDICAL ANDRE SINGER M.D.Performed By: #### GLULS ####Point of Care testing,Httgowa8Dqe6: Cleaned MeterNoKettering Health Washington TownshipComment on above:Result Comment: PERFORMED BY:[address] [place], [place] [phone] MEDICAL ANDRE SINGER M.D.Performed By: #### GLULS ####Point of Care testing,Glucose [Mass/Vol]191 mg/dLMarietta Osteopathic Clinic Comment on above:Result Comment: Random Glucose Reference Range is dependent on time and content of last meal. Glucose of more than 200 mg/dL in a nonstressed, ambulatory subject supports the diagnosis of Diabetes Mellitus.Performed By: #### GLULS ####Point of Care testing,Osfcjva5Svs9: Cleaned MeterNoKettering Health Washington TownshipComment on above:Result Comment: PERFORMED BY:[address] [place], [place] [phone] MEDICAL ANDRE SINGER M.D.Performed By: #### GLULS ####Point of Care testing,Glucose [Mass/Vol]171 mg/dLMarietta Osteopathic Clinic Comment on above:Result Comment: Random Glucose Reference Range is dependent on time and content of last meal. Glucose of more than 200 mg/dL in a nonstressed, ambulatory subject supports the diagnosis of Diabetes Mellitus.Performed By: #### GLULS ####Point of Care testing,Magnesiumon 97-08-8808Gumgkvlyq [Mass/Vol] 1.7 mg/dLNormal1.6-2.6FCleveland Clinic South Pointe HospitalComment on above:Result Comment: PERFORMED BY:[address] [place], [place] [phone] MEDICAL ANDRE SINGER M.D.Performed By: #### MG, BMP ####[address] [place] [address] USAStool Occult Blood (Guaiac)on 09-15-9722Dgnxd Occult Blood (Guaiac) [facility]etta Osteopathic ClinicComment on above:Performed By: #### OB(GUAIAC) ####[address] [place] [address] USAComprehensive Metabolic Panelon 99-14-6242Boggsfg [Mass/Vol]2.2 g/dLLow 3.2-5.5FCleveland Clinic South Pointe HospitalComment on above:Performed By: #### MG PHOS, CMP ####[address] [place] [address] USAAlbumin/Globulin [Mass ratio]0.8 {ratio}NormalOur Lady Of Mercy Hospital - AndersonComment on above:Performed By: #### MG PHOS, CMP ####[address] [place] [address] USAALP [Catalytic activity/Vol]90 U/XYnhpiz72-91SabgytviuOur Lady Of Mercy Hospital - AndersonComment on above:Performed By: #### MG PHOS, CMP ####[address] [place] [address] USAALT [Catalytic activity/Vol]14 U/THngagt78-29LfmnbbmiyOur Lady Of Mercy Hospital - AndersonComment on above:Performed By: #### MG PHOS, CMP ####[address] [place] [address] USAAnion gap [Moles/Vol] 9.1 mmol/LNormal6.0-15.0[facility] Hospital - AndersonComment on above: Performed By: #### MG PHOS, CMP ####[address] [address] USAAST [Catalytic activity/Vol]15 U/OFvtbyu49-03 [facility] Hospital - AndersonComment on above:Performed By: #### MG PHOS, CMP ####[address] [address] [place] Bilirubin [Mass/Vol]0.8 mg/dLNormal0.3-1.2FC[facility] Comment on above:Performed By: #### MG PHOS, CMP ####[address] [place] [address] USACalcium [Mass/Vol]7.6 mg/dLLow 8.2-10.2FCleveland Clinic South Pointe HospitalComment on above:Performed By: #### MG PHOS, CMP ####[address] [place] [address] USAChloride [Moles/Vol]97 mmol/FAzrdyg36-248PcylguobyOur Lady Of Mercy Hospital - Anderson Comment on above:Performed By: #### PETAR CRUM, CMP ####[address] [address] USACO2 [Moles/Vol]29.1 mmol/LNormal 22.0-30.0[facility] Hospital - AndersonComment on above:Performed By: #### PETAR CRUM, CMP ####[address] USACreatinine [Mass/Vol]0.64 mg/dLNormal0.44-1.03Our [facility] Hospital - AndersonComment on above:Performed By: #### PETAR CRUM, CMP ####[address] USACreatinine Clr Calc Dylwzwjr91.60NoKettering Health Washington TownshipComment on above:Performed By: #### PETAR CRUM, CMP ####[address] USAEstimated GFR ( Brenda> 60NoKettering Health Washington TownshipComment on above:Result Comment: GFR estimated reference range: According to KDOQI guidelines, <60 ml/min/1.73m2 is sufficient to diagnose a patient with chronic kidney disease.Performed By: #### PETAR CRUM, CMP ####[address] [place] Estimated GFR (Non- Am> 60NoKettering Health Washington TownshipComment on above:Performed By: #### PETAR CRUM, CMP ####[address] USAGlobulin (S) [Mass/Vol]2.7 g/dLNoUniversity Hospitals Samaritan Medical CenterComment on above:Performed By: #### VENTURA CRUMS, CMP ####[address] [place] Glucose [Mass/Vol]118 mg/xICgic28-711BjngqeuqbOur Lady Of Mercy Hospital - AndersonComment on above:Result Comment: Random Glucose Reference Range is dependent on time and content of last meal. Glucose of more than 200 mg/dL in a nonstressed, ambulatory subject supports the diagnosis of Diabetes Mellitus. ADA recommended reference rangePerformed By: #### PETAR CRUM CMP ####[facility] [place] [address] USAProtein [Mass/Vol]4.9 g/dLLow6.1-7.9 [facility] - AndersonComment on above:Performed By: #### PETAR CRUM CMP ####[facility] [place] [id number] [facility] Sodium [Moles/Vol]132 mmol/CKbw122-424AsksrcqypOur Lady Of Mercy Hospital - AndersonComment on above:Performed By: #### PETAR CRUM CMP ####[facility] USAUrea nitrogen [Mass/Vol]13 mg/dLNormal9 [facility] Hospital - AndersonComment on above:Performed By: #### PETAR CRUM, CMP ####[address] [place] [phone] USAECG 12 lead ECGon 61-22-3093DLB 12 lead ECGNoKettering Health Washington Township Glucose Poct Glucometerson 13-23-3874Vyvhtdm [Mass/Vol]288 mg/dLMarietta Osteopathic ClinicComment on above:Result Comment: Random Glucose Reference Range is dependent on time and content of last meal. Glucose of more than 200 mg/dL in a nonstressed, ambulatory subject supports the diagnosis of Diabetes Mellitus.PERFORMED BY:[address] [place], [place] [phone] MEDICAL DIRECTORKIMBERLYN SINGER M.D.Performed By: #### GLULS ####Point of Care testing,Glucose [Mass/Vol]142 mg/dLMarietta Osteopathic ClinicComment on above:Result Comment: Random Glucose Reference Range is dependent on time and content of last meal. Glucose of more than 200 mg/dL in a nonstressed, ambulatory subject supports the diagnosis of Diabetes Mellitus.PERFORMED BY:[address] [place], [place] [phone] MEDICAL ANDRE SINGER M.D.Performed By: #### GLULS ####Point of Care testing,Glucose [Mass/Vol]143 mg/dLNoKettering Health Washington TownshipComment on above:Result Comment: Random Glucose Reference Range is dependent on time and content of last meal. Glucose of more than 200 mg/dL in a nonstressed, ambulatory subject supports the diagnosis of Diabetes Mellitus.PERFORMED BY:[address] BALDERRAMARASHAUN, [place] [phone] MEDICAL DIRECTORKIMBERLYN SINGER M.D.Performed By: #### GLULS ####Point of Care testing,Glucose [Mass/Vol]138 mg/dLNoKettering Health Washington TownshipComment on above:Result Comment: Random Glucose Reference Range is dependent on time and content of last meal. Glucose of more than 200 mg/dL in a nonstressed, ambulatory subject supports the diagnosis of Diabetes Mellitus.PERFORMED BY:[address] BALDERRAMARASHAUN, [place] [phone] MEDICAL ANDRE SINGER M.D.Performed By: #### GLULS ####Point of Care testing,Hypochromia LM Ql (Bld)Ordered By: Denice Buckner on 32-16-1558Inmtmmfiyrr Ql (Bld)[facility] Magnesiumon 44-57-3984Bkgpkcwbr [Mass/Vol]1.6 mg/dLNormal1.6-2.6FCleveland Clinic South Pointe HospitalComment on above:Result Comment: PERFORMED BY:[address] BALDERRAMARASHAUN, [place] [phone] MEDICAL DIRECTORKIMBERLYN SINGER M.D.Performed By: #### MG, PHOS, CMP ####[address] [address] USAOvalocyte detection Ordered By: Denice Buckner on 01-69-5612Hgmwvzdzke LM Ql (Bld)[facility]aw[facility] HospitalPhosphate [Mass/volume] in Serum or PlasmaOrdered By: Nicolasa Hull on 46-77-2384Wkhosrtoz [Mass/Vol]3.0 mg/dL2.5-4.6FCleveland Clinic South Pointe HospitalPhosphoruson 02-84-2389Vvxvhakrs [Mass/Vol]3.0 mg/dL Normal2.5-4.6FCleveland Clinic South Pointe HospitalComment on above:Performed By: #### MG, PHOS, CMP ####[address] [address] USAPoikilocytosis [Presence] in Blood by Light microscopyOrdered By: Denice Buckner on 12-74-2899Euaqeireztikdw LM Ql (Bld)SlightOur Lady Of Mercy Hospital - AndersonPotassiumon 25-63-3655Dsjrnvwtu [Moles/Vol]3.2 mmol/LLow3.5-5.1 [facility] - AndersonComment on above:Order Comment: rn said retime for about 4 hours RN TO CALL TO LET US KNOW WHEN IT'S DONE TO RETIME PSW 2011 Result Comment: PERFORMED BY:[address] [place], [place] [phone] MEDICAL DIRECTORKIMBERLYN SINGER M.D. Performed By: #### K ####[address] [address] USAPerformed By: #### MG, PHOS, CMP ####[address] [address] USAScan and CBCon 69-97-9212Oeevemwkrnjo Ql (Bld)ModerateNormSelect Medical Specialty Hospital - Canton Comment on above:Performed By: #### SCAN CBC ####[address] [address] USABasophils (Bld) [#/Vol]0.0 10*3/uL Normal0.0-0.2FCleveland Clinic South Pointe HospitalComment on above:Performed By: #### SCAN CBC ####[address] [address] USABasophils/100 WBC (Bld)0.4 %Normal.[facility] Comment on above:Performed By: #### SCAN CBC ####[address] [place] [address] USAEosinophils (Bld) [#/Vol]0.3 10*3/uL Normal0.0-0.45[facility] Hospital - AndersonComment on above:Performed By: #### SCAN CBC ####[address] [address] USAEosinophils/100 WBC (Bld)3.8 %Normal.[facility] Comment on above:Performed By: #### SCAN CBC ####[address] [address] USAErythrocyte distribution width (RBC) [Ratio]16.1 %High11.9-15.3FCleveland Clinic South Pointe HospitalComment on above: Performed By: #### SCAN CBC ####[address] [address] USAHematocrit (Bld) [Volume fraction]24.0 %Low34.0-46.4 [facility] - AndersonComment on above:Performed By: #### SCAN CBC ####[address] [address] [place] Hemoglobin (Bld) [Mass/Vol]8.1 g/dLLow11.8-15.4FC[facility] Comment on above:Performed By: #### SCAN CBC ####[address] [address] USAHypochromasiaSlightNormalOur Lady Of Mercy Hospital - AndersonComment on above:Performed By: #### SCAN CBC ####[address] [address] [place] Lymphocytes (Bld) [#/Vol]1.8 10*3/uLNormal1.00-4.8[facility] Hospital - AndersonComment on above:Performed By: #### SCAN CBC ####[address] [address] USALymphocytes/100 WBC (Bld)26.6 %Normal.[facility] Hospital - AndersonComment on above:Performed By: #### SCAN CBC ####[address] [place] [address] USAMCH (RBC) [Entitic mass]30.5 zfIasnga72.7-34.3FCleveland Clinic South Pointe HospitalComment on above:Performed By: #### SCAN CBC ####[address] [address] USAMCV (RBC) [Entitic vol]90.1 fL Rnhvxj26-712FtailqogoOur Lady Of Mercy Hospital - AndersonComment on above:Performed By: #### SCAN CBC ####[address] [address] USAMean Corpuscular HGB Conc33.8 g/qGAwjfsk52.0-35.0[facility] - AndersonComment on above:Performed By: #### SCAN CBC ####[address] [address] USAMicrocytosisModerateNormal [facility] - AndersonComment on above:Performed By: #### SCAN CBC ####[address] [address] [place] Monocytes (Bld) [#/Vol]0.7 10*3/uLNormal0.0-0.8[facility] Comment on above:Performed By: #### SCAN CBC ####[address] [address] USAMonocytes/100 WBC (Bld)10.8 %Normal. [facility] - AndersonComment on above:Performed By: #### SCAN CBC ####[address] [address] [place] Neutrophils (Bld) [#/Vol]4.1 10*3/uLNormal1.8-7.7FCleveland Clinic South Pointe HospitalComment on above:Performed By: #### SCAN CBC ####[address] [address] USANeutrophils/100 WBC (Bld)58.4 %Normal.[facility] Hospital - AndersonComment on above:Performed By: #### SCAN CBC ####[facility] [place] [address] USANRBC%0.3 /100{WBC}Normal0-0.5FCleveland Clinic South Pointe HospitalComment on above:Performed By: #### SCAN CBC ####[address] [address] USAOvalocytesSlightNoKettering Health Washington TownshipComment on above:Performed By: #### SCAN CBC ####[address] [address] USAPlatelet EstimateNormalNormal [facility] ClinicComment on above:Performed By: #### SCAN CBC ####[address] [address] [place] Platelet mean volume (Bld) [Entitic vol]8.3 fLNormal6.3-10.7FCleveland Clinic South Pointe HospitalComment on above:Performed By: #### SCAN CBC ####[address] [address] USAPlatelet Morphology NormalMercy Health St. Elizabeth Youngstown HospitalComment on above:Result Comment: PERFORMED BY:[address] [place], [place] [phone] MEDICAL ANDRE SINGER M.D.Performed By: #### SCAN CBC ####[address] [address] USAPlatelets (Bld) [#/Vol]205 10*3/fZPtmbua426-128GkypfkmrmOur Lady Of Mercy Hospital - AndersonComment on above:Performed By: #### SCAN CBC ####[address] [address] USAPoikilocytosisSlight [facility] ClinicComment on above:Performed By: #### SCAN CBC ####[address] [address] USA PolychromasiaSlightMarietta Osteopathic ClinicComment on above: Performed By: #### SCAN CBC ####[address] [address] USARBC (Bld) [#/Vol]2.67 10*6/uLLow3.60-5.00[facility] - AndersonComment on above:Performed By: #### SCAN CBC ####[address] [address] USAWBC (Bld) [#/Vol]6.9 10*3/uLNormal3.8-11.6FCleveland Clinic South Pointe HospitalComment on above:Performed By: #### SCAN CBC ####[address] [address] USAABO/Rh Retypeon 00-82-3776HXD/RH Recheck ResultPositiveMarietta Osteopathic ClinicComment on above:Result Comment: PERFORMED BY:[address] [place], [place] [phone] MEDICAL DIRECTORKIMBERLYN SINGER M.D.CT abdomen pelvis w conon 92-68-4195YZ abdomen pelvis w [facility] HospitalComprehensive Metabolic Panelon 65-14-1761Pmwyjwv [Mass/Vol]2.3 g/dLLow 3.2-5.5FCleveland Clinic South Pointe HospitalComment on above:Performed By: #### CMP ####[address] [address] [place] Albumin/Globulin [Mass ratio]0.9 {ratio}[facility] Comment on above:Performed By: #### CMP ####[address] [address] USAALP [Catalytic activity/Vol]101 U/WKzcg87-51 [facility] - AndersonComment on above:Performed By: #### CMP ####[address] [address] USAALT [Catalytic activity/Vol]17 U/AUpckpe09-42DygubcnziOur Lady Of Mercy Hospital - Anderson Comment on above:Performed By: #### CMP ####[address] [address] USAAnion gap [Moles/Vol]12.4 mmol/LNormal6.0-15.0 [facility] - AndersonComment on above:Performed By: #### CMP ####[address] [address] USAAST [Catalytic activity/Vol]15 U/GAhtuic61-02KzesrayzsOur Lady Of Mercy Hospital - Anderson Comment on above:Performed By: #### CMP ####[address] [address] USABilirubin [Mass/Vol]0.6 mg/dLNormal0.3-1.2 [facility] - AndersonComment on above:Performed By: #### CMP ####[address] [address] USACalcium [Mass/Vol]7.9 mg/dLLow8.2-10.2FCleveland Clinic South Pointe HospitalComment on above:Performed By: #### CMP ####[address] [address] USAChloride [Moles/Vol]91 mmol/RWdu07-569DoravvibkOur Lady Of Mercy Hospital - AndersonComment on above:Performed By: #### CMP ####[address] [address] USACO2 [Moles/Vol]30.5 mmol/LHigh22.0-30.0[facility] - AndersonComment on above:Performed By: #### CMP ####[address] [address] USACreatinine [Mass/Vol]0.63 mg/dLNormal0.44-1.03[facility] Hospital - AndersonComment on above:Performed By: #### CMP ####[address] [address] USACreatinine Clr Calc Pharmacy 77.02NormalOur Lady Of Mercy [facility] - AndersonComment on above:Result Comment: PERFORMED BY:[address] [place], [place] [phone] MEDICAL DIRECTORKIMBERLYN SINGER M.D.Performed By: #### CMP ####[address] [address] [place] Estimated GFR ( Brenda> 60NormalOur Lady Of Mercy Hospital - AndersonComment on above:Result Comment: GFR estimated reference range: According to KDOQI guidelines, <60 ml/min/1.73m2 is sufficient to diagnose a patient with chronic kidney disease.Performed By: #### CMP ####[address] [address] USAEstimated GFR (Non- Am> 60Normal [facility] - AndersonComment on above:Performed By: #### CMP ####[address] [address] [place] Globulin (S) [Mass/Vol]2.7 g/dLNoKettering Health Washington TownshipComment on above:Performed By: #### CMP ####[address] [address] USAGlucose [Mass/Vol]156 mg/kWWtnl06-640WbqepogdbOur Lady Of Mercy Hospital - AndersonComment on above:Result Comment: Random Glucose Reference Range is dependent on time and content of last meal. Glucose of more than 200 mg/dL in a nonstressed, ambulatory subject supports the diagnosis of Diabetes Mellitus. ADA recommended reference rangePerformed By: #### CMP ####[address] [address] USAPotassium [Moles/Vol] 2.9 mmol/LOff scale low3.5-5.1FCleveland Clinic South Pointe HospitalComment on above: Result Comment: Results called at 0717 on 03/12/22Performed By: #### CMP ####[address] [address] USAProtein [Mass/Vol]5.0 g/dLLow6.1-7.9[facility] - AndersonComment on above: Performed By: #### CMP ####[address] [address] USASodium [Moles/Vol]131 mmol/KFvi533-220AeizfxeujOur Lady Of Mercy Hospital - AndersonComment on above:Performed By: #### CMP ####[address] [address] USAUrea nitrogen [Mass/Vol]13 mg/dLNormal9-23[facility] - AndersonComment on above: Performed By: #### CMP ####[address] [address] USADiff and CBCon 51-08-3733Hnrmhxjwajdf Ql (Bld)Slight NormalOur Lady Of Mercy Hospital - AndersonComment on above:Performed By: #### DIFF CBC ####[address] [address] [place] Eosinophils/100 WBC (Bld)1 %Normal1-3FCleveland Clinic South Pointe HospitalComment on above:Performed By: #### DIFF CBC ####[address] [address] USAErythrocyte distribution width (RBC) [Ratio]14.2 % Lhcfis33.9-15.3FCleveland Clinic South Pointe HospitalComment on above:Performed By: #### DIFF CBC ####[address] [address] USAHematocrit (Bld) [Volume fraction]21.1 %Low34.0-46.4FCleveland Clinic South Pointe HospitalComment on above:Performed By: #### DIFF CBC ####[address] [address] USAHemoglobin (Bld) [Mass/Vol]7.1 g/dLLow11.8-15.4FCleveland Clinic South Pointe HospitalComment on above: Performed By: #### DIFF CBC ####[address] [address] USALymphocytes/100 WBC (Bld)24 %Shpcrg15-48MhsqjhubcOur Lady Of Mercy Hospital - AndersonComment on above:Performed By: #### DIFF CBC ####[address] [address] USAMCH (RBC) [Entitic mass]31.1 rgIpbera98.7-34.3FCleveland Clinic South Pointe Hospital Comment on above:Performed By: #### DIFF CBC ####[address] [address] USAMCV (RBC) [Entitic vol]93.2 fLNormal 80-100[facility] - AndersonComment on above:Performed By: #### DIFF CBC ####[address] [address] [facility] Mean Corpuscular HGB Conc33.4 g/gPPgnyaf69.0-35.0[facility] - AndersonComment on above:Performed By: #### DIFF CBC ####[address] [address] USAMetamyelocytes1 %High0-0 [facility] - AndersonComment on above:Performed By: #### DIFF CBC ####[address] [address] [place] Monocytes/100 WBC (Bld)6 %Normal2-11[facility] - AndersonComment on above:Performed By: #### DIFF CBC ####[address] [address] USAMyelocytes3 %High0-0[facility] - AndersonComment on above:Performed By: #### DIFF CBC ####[address] [address] USAPlatelet EstimateNormalNormal NormalOur Lady Of Mercy Hospital - AndersonComment on above:Performed By: #### DIFF CBC ####[address] [address] [place] Platelet mean volume (Bld) [Entitic vol]8.7 fLNormal6.3-10.7FCleveland Clinic South Pointe HospitalComment on above:Result Comment: PERFORMED BY:[address] [place]IREZSH[place]WO[place], [place] [phone] MEDICAL DIRECTORKIMBERLYN SINGER M.D.Performed By: #### DIFF CBC ####[address] [address] USAPlatelet MorphologyNormal NormalNoKettering Health Washington TownshipComment on above:Result Comment: PERFORMED BY:[address] [address] [place] [place], [place] [phone] MEDICAL DIRECTORKIMBERLYN SINGER M.D.Performed By: #### DIFF CBC ####[address] [address] USAPlatelets (Bld) [#/Vol]299 10*3/aDMhbslh028-433YixslzeugOur Lady Of Mercy Hospital - AndersonComment on above:Performed By: #### DIFF CBC ####[address] [address] USAPolychromasiaSlightNoal [facility] - AndersonComment on above:Performed By: #### DIFF CBC ####[address] [address] USARBC (Bld) [#/Vol]2.26 10*6/uLLow3.60-5.00[facility] - AndersonComment on above:Performed By: #### DIFF CBC ####[address] [address] USASegmented neutrophils/100 WBC (Bld)66 %Syxewd90-10 [facility] - AndersonComment on above:Performed By: #### DIFF CBC ####[address] [address] USAWBC (Bld) [#/Vol]11.7 10*3/uLHigh3.8-11.6FCleveland Clinic South Pointe HospitalComment on above:Performed By: #### DIFF CBC ####[address] [address] USAECG 12 lead ECGon 40-78-0056LLI 12 lead ECGNoal [facility] - AndersonECH echo transthoracicon 49-40-4881DDA echo transthoracicMarietta Osteopathic ClinicGlucose Poct Glucometerson 65-81-4335Urandcw1Oqc6: Cleaned [facility] Comment on above:Result Comment: PERFORMED BY:[address] [address] [place] [place], [place] [phone] MEDICAL DIRECTORKIMBERLYN SINGER M.D.Performed By: #### GLULS ####Point of Care testing, Glucose [Mass/Vol]187 mg/dLMarietta Osteopathic ClinicComment on above:Result Comment: Random Glucose Reference Range is dependent on time and content of last meal. Glucose of more than 200 mg/dL in a nonstressed, ambulatory subject supports the diagnosis of Diabetes Mellitus.Performed By: #### GLULS ####Point of Care testing,Glucose [Mass/Vol]169 mg/dLMarietta Osteopathic ClinicComment on above:Result Comment: Random Glucose Reference Range is dependent on time and content of last meal. Glucose of more than 200 mg/dL in a nonstressed, ambulatory subject supports the diagnosis of Diabetes Mellitus.PERFORMED BY:[address] [place], [place] [phone] MEDICAL DIRECTORKIMBERLYN SINGER M.D.Performed By: #### GLULS ####Point of Care testing,Glucose [Mass/Vol]151 mg/dLMarietta Osteopathic ClinicComment on above:Result Comment: Random Glucose Reference Range is dependent on time and content of last meal. Glucose of more than 200 mg/dL in a nonstressed, ambulatory subject supports the diagnosis of Diabetes Mellitus.PERFORMED BY:[address] [address] [place], [place] [phone] MEDICAL ANDRE SINGER M.D.Performed By: #### GLULS ####Point of Care testing,Tfkklog1Olz6: Cleaned [facility] Medical CenterComment on above:Result Comment: PERFORMED BY:[address] [address] [place], [place] [phone] MEDICAL DIRECTORKIMBERLYN SINGER M.D.Performed By: #### GLULS ####Point of Care testing,Glucose [Mass/Vol]159 mg/dLMarietta Osteopathic Clinic Comment on above:Result Comment: Random Glucose Reference Range is dependent on time and content of last meal. Glucose of more than 200 mg/dL in a nonstressed, ambulatory subject supports the diagnosis of Diabetes Mellitus.Performed By: #### GLULS ####Point of Care testing,LeukoReduced RBCon 05-35-3125IxjsbBzckpfk RBCTRANSFUSED 03/12/22 1625Marietta Osteopathic ClinicMagnesiumon 89-81-1186Ivxjfyler [Mass/Vol]1.4 mg/dLLow1.6-2.6FCleveland Clinic South Pointe HospitalComment on above:Order Comment: Comment add on to previously drawn labs Result Comment: PERFORMED BY:[address] [address] [address] [place], [place] [phone] MEDICAL DIRECTORKIMBERLYN SINGER M.D. Performed By: #### MG ####[facility] [address] [facility] [place] [address] USAType and Screenon 95-99-2743ZON and Rh group Nom (Bld)Blood group O Rh(D) positiveMarietta Osteopathic ClinicComment on above:Order Comment: Transfuse now? Y Number of units to transfuse now? 2 Result Comment: PERFORMED BY:[address] [address] HUSSEINUSKYSH[place]WO[place], [place] [phone] MEDICAL DIRECTORKIMBERLYN SINGER M.D.US gall bladderon 47-35-8520GB gall bladderMarietta Osteopathic Clinic XR abdomen 1Von 78-24-2667RX abdomen 1VMarietta Osteopathic Clinic Bacterial blood cultureOrdered By: Tammy Smyth on 49-96-0559Qmobwxza identified Cx Nom (Bld)DiptheroidsOur Lady Of Mercy Hospital - AndersonBacteria identified Cx Nom (Bld)Bacillus sp not B. anthracisOur Lady Of Mercy Hospital - AndersonBacterial blood cultureOrdered By: Denice Buckner on 76-50-3334Bbjngvbi identified Cx Nom (Bld)NO GROWTH 5 DAYSOur Lady Of Mercy Hospital - AndersonBasic Metabolic Panelon 24-66-7063Bjyev gap [Moles/Vol]16.6 mmol/LHigh6.0-15.0 [facility] - AndersonComment on above:Order Comment: FOOT ORDER Performed By: #### BMP ####[facility] [address] [place] [address] USACalcium [Mass/Vol]7.7 mg/dLLow8.2-10.2FCleveland Clinic South Pointe HospitalComment on above:Order Comment: FOOT ORDERPerformed By: #### BMP ####[facility] [place] [address] USAChloride [Moles/Vol]90 mmol/SKdx62-478XiyspuhqnOur Lady Of Mercy Hospital - Anderson Comment on above:Order Comment: FOOT ORDERPerformed By: #### BMP ####[address] [address] USACO2 [Moles/Vol]23.6 mmol/EBxxwlw75.0-30.0[facility] - AndersonComment on above:Order Comment: FOOT ORDERPerformed By: #### BMP ####[address] [address] USACreatinine [Mass/Vol]0.69 mg/dLNormal 0.44-1.03[facility] - AndersonComment on above:Order Comment: FOOT ORDERPerformed By: #### BMP ####[address] [address] USACreatinine Clr Calc Knfmzikm90.58NoKettering Health Washington TownshipComment on above:Order Comment: FOOT ORDERResult Comment: PERFORMED BY:[address] [place], [place] [phone] MEDICAL ANDRE SINGER M.D.Performed By: #### BMP ####[address] [address] [place] Estimated GFR ( Brenda> 60NoKettering Health Washington TownshipComment on above:Order Comment: FOOT ORDERResult Comment: GFR estimated reference range: According to KDOQI guidelines, <60 ml/min/1.73m2 is sufficient to diagnose a patient with chronic kidney disease.Performed By: #### BMP ####[address] [address] [place] Estimated GFR (Non- Am> 60NoKettering Health Washington TownshipComment on above:Order Comment: FOOT ORDERPerformed By: #### BMP ####[address] [place] [address] USAGlucose [Mass/Vol]226 mg/dL Xyqj31-819NmjdbslyrOur Lady Of Mercy Hospital - AndersonComment on above:Order Comment: FOOT ORDERResult Comment: Random Glucose Reference Range is dependent on time and content of last meal. Glucose of more than 200 mg/dL in a nonstressed, ambulatory subject supports the diagnosis of Diabetes Mellitus. ADA recommended reference rangePerformed By: #### BMP ####[address] [place] [address] USAPotassium [Moles/Vol]3.2 mmol/LLow3.5-5.1 [facility] - AndersonComment on above:Order Comment: FOOT ORDER Performed By: #### BMP ####[address] [address] USASodium [Moles/Vol]127 mmol/POhj611-990KlvrghefiOur Lady Of Mercy Hospital - AndersonComment on above:Order Comment: FOOT ORDERPerformed By: #### BMP ####[address] [address] USAUrea nitrogen [Mass/Vol]14 mg/dLNormal9-23[facility] Comment on above:Order Comment: FOOT ORDERPerformed By: #### BMP ####[address] [place] [address] USAAnion gap [Moles/Vol] 11.3 mmol/LNormal6.0-15.0[facility] - AndersonComment on above: Performed By: #### VIPUL, FE and TIBC, BMP ####[address] [place] [address] USACalcium [Mass/Vol]7.5 mg/dLLow8.2-10.2 [facility] - AndersonComment on above:Performed By: #### VIPUL, FE and TIBC, BMP ####[address] [place] [address] USAChloride [Moles/Vol]93 mmol/XGii30-992LqildauhxOur Lady Of Mercy Hospital - Anderson Comment on above:Performed By: #### VIPUL, FE and TIBC, BMP ####[address] [address] USACO2 [Moles/Vol]24.9 mmol/L Tbwaiq87.0-30.0[facility] - AndersonComment on above:Performed By: #### VIPUL, FE and TIBC, BMP ####[address] [address] USACreatinine [Mass/Vol]0.53 mg/dLNormal0.44-1.03 [facility] - AndersonComment on above:Performed By: #### VIPUL, FE and TIBC, BMP ####[address] [address] USACreatinine Clr Calc Ajlprnna72.58NoKettering Health Washington Township Comment on above:Performed By: #### VIPUL, FE and TIBC, BMP ####[address] [address] USAEstimated GFR ( Brenda> 60NoKettering Health Washington TownshipComment on above:Result Comment: GFR estimated reference range: According to KDOQI guidelines, <60 ml/min/1.73m2 is sufficient to diagnose a patient with chronic kidney disease. Performed By: #### VIPUL, FE and TIBC, BMP ####[address] [address] USAEstimated GFR (Non- Am> 60Normal [facility] - AndersonComment on above:Performed By: #### VIPUL, FE and TIBC, BMP ####[address] [address] USAGlucose [Mass/Vol]174 mg/gPDtqf63-248LuibrhjxyOur Lady Of Mercy Hospital - Anderson Comment on above:Result Comment: Random Glucose Reference Range is dependent on time and content of last meal. Glucose of more than 200 mg/dL in a nonstressed, ambulatory subject supports the diagnosis of Diabetes Mellitus. ADA recommended reference rangePerformed By: #### VIPUL, FE and TIBC, BMP ####[address] [address] USAPotassium [Moles/Vol]3.2 mmol/LLow3.5-5.1FCleveland Clinic South Pointe HospitalComment on above:Performed By: #### IRVIN MATTHEW and JULIANA, BMP ####[address] [address] USASodium [Moles/Vol]126 mmol/OXpm204-297KzyfprekhOur Lady Of Mercy Hospital - AndersonComment on above:Performed By: #### IRVIN MATTHEW and JULIANA, BMP ####[address] [address] USAUrea nitrogen [Mass/Vol]8 mg/dLLow9-23[facility] - AndersonComment on above:Performed By: #### IRVIN MATTHEW and JULIANA, BMP ####[address] [address] USABlood Cultureon 96-23-7959Zxdssium identified Cx Nom (Bld)NO GROWTH 5 DAYS PERFORMED BY: [address] [place] [id number] PATHOLOGIST BROWNELL OPERATOR KIMBERLYN SINGER M.D.[facility] Osteopathic ClinicComment on above: Performed By: #### CUBLD ####[address] [address] USABacteria identified Cx Nom (Bld)NO GROWTH 5 DAYS PERFORMED BY: [address] [place] [address] PATHOLOGIST BROWNELL OPERATOR KIMBERLYN SINGER M.D.[facility]opathic ClinicComment on above: Performed By: #### CUBLD ####[address] [address] USACT biopsyOrdered By: Dencie Buckner on 03-11-2022 Transferrin [Mass/Vol]110 mg/pG029-330XxrrcslyaOur Lady Of Mercy Hospital - AndersonFerritin on 78-20-5974Xrehldqq [Mass/Vol]235.0 ng/sHVkxtpm02-376.8[facility] - AndersonComment on above:Result Comment: PERFORMED BY:[address] [place], [place] [phone] MEDICAL DIRECTORKIMBERLYN SINGER M.D.Performed By: #### VIPUL, FE and TIBC, BMP ####[address] [place] [address] USAFerritin [Mass/volume] in Serum or PlasmaOrdered By: Denice Buckner on 62-01-0318Xvhellen [Mass/Vol]235.0 ng/zB46-511.8[facility] - AndersonGlucose Poct Glucometerson 69-17-7411Talukhh7Nyg4: Cleaned MeterMarietta Osteopathic ClinicComment on above:Result Comment: PERFORMED BY:[address] [place], [place] [phone] MEDICAL DIRECTORKIMBERLYN SINGER M.D.Performed By: #### GLULS ####Point of Care testing, Glucose [Mass/Vol]218 mg/dLMarietta Osteopathic ClinicComment on above:Result Comment: Random Glucose Reference Range is dependent on time and content of last meal. Glucose of more than 200 mg/dL in a nonstressed, ambulatory subject supports the diagnosis of Diabetes Mellitus.Performed By: #### GLULS ####Point of Care testing,Ghqopnd0Xrs4: Cleaned [facility] CenterComment on above:Result Comment: PERFORMED BY:[address] [place]USKY[place], [place] [phone] MEDICAL ANDRE SINGER M.D.Performed By: #### GLULS ####Point of Care testing,Glucose [Mass/Vol]185 mg/dLMarietta Osteopathic Clinic Comment on above:Result Comment: Random Glucose Reference Range is dependent on time and content of last meal. Glucose of more than 200 mg/dL in a nonstressed, ambulatory subject supports the diagnosis of Diabetes Mellitus.Performed By: #### GLULS ####Point of Care testing,Kryqmtk8Zwc8: Cleaned [facility] CenterComment on above:Result Comment: PERFORMED BY:[address] [place], [place] [phone] MEDICAL DIRECTORKIMBERLYN SINGER M.D.Performed By: #### GLULS ####Point of Care testing,Glucose [Mass/Vol]225 mg/dLMarietta Osteopathic Clinic Comment on above:Result Comment: Random Glucose Reference Range is dependent on time and content of last meal. Glucose of more than 200 mg/dL in a nonstressed, ambulatory subject supports the diagnosis of Diabetes Mellitus.Performed By: #### GLULS ####Point of Care testing,Ddsvtjd8Jsw7: Cleaned [facility] CenterComment on above:Result Comment: PERFORMED BY:[address] [address] [place] [place], [place] [phone] MEDICAL DIRECTORKIMBERLYN SINGER M.D.Performed By: #### GLULS ####Point of Care testing,Glucose [Mass/Vol]159 mg/dLMarietta Osteopathic Clinic Comment on above:Result Comment: Random Glucose Reference Range is dependent on time and content of last meal. Glucose of more than 200 mg/dL in a nonstressed, ambulatory subject supports the diagnosis of Diabetes Mellitus.Performed By: #### GLULS ####Point of Care testing,Qdyqvcb7Xvd8: [facility] Cary HospitalComment on above:Result Comment: PERFORMED BY:[address] [address] HUIZARTeeteeRASHAUNSHERWOOD, [place] [phone] MEDICAL DIRECTORKIMBERLYN SINGER M.D.Performed By: #### GLULS ####Point of Care testing,Glucose [Mass/Vol]147 mg/dLMarietta Osteopathic Clinic Comment on above:Result Comment: Random Glucose Reference Range is dependent on time and content of last meal. Glucose of more than 200 mg/dL in a nonstressed, ambulatory subject supports the diagnosis of Diabetes Mellitus.Performed By: #### GLULS ####Point of Care testing,Hemoglobin and Hematocriton 03-11-2022 Hematocrit (Bld) [Volume fraction]23.0 %Low34.0-46.4FCleveland Clinic South Pointe HospitalComment on above:Order Comment: FOOT ORDERResult Comment: PERFORMED BY:[address] RAMIREZSHERWO[place], [place] [phone] MEDICAL DIRECTORKIMBERLYN SINGER M.D.Performed By: #### HH ####[address] [place] [address] [place] Hemoglobin (Bld) [Mass/Vol]7.7 g/dLLow11.8-15.4FCleveland Clinic [facility] Hospital Comment on above:Order Comment: FOOT ORDERPerformed By: #### HH ####[address] [address] USAIron [Mass/volume] in Serum or PlasmaOrdered By: Denice Buckner on 89-10-8823Ujzd [Mass/Vol]33 ug/dL 40-150[facility] - AndersonIron and TIBC Profileon 03-11-2022% Iron Ecvdnbwmeg69.0 %Iujnem90-29AherfeenmOur Lady Of Mercy Hospital - AndersonComment on above: Performed By: #### VIPUL, FE and TIBC, BMP ####[address] [place] [address] USAIron [Mass/Vol]33 ug/zXGna80-703PtvwyumwjOur Lady Of Mercy Hospital - AndersonComment on above:Performed By: #### VIPUL, FE and TIBC, BMP ####[address] [address] USATotal Iron Binding Rygdnpqr591 ug/uFVaf216-172ApezxtyyyOur Lady Of Mercy Hospital - AndersonComment on above:Performed By: #### VIPUL, FE and TIBC, BMP ####[address] [place] [address] USATransferrin [Mass/Vol]110 mg/vSJjt175-605GytxosqcoOur Lady Of Mercy Hospital - AndersonComment on above:Performed By: #### VIPUL, FE and TIBC, BMP ####[address] [address] USAIron binding capacity [Mass/volume] in Serum or PlasmaOrdered By: Denice Buckner on 99-94-9093Ceyj binding capacity [Mass/Vol]154 ug/tY916-148SxeppjtlvOur Lady Of Mercy Hospital - AndersonIron saturation [Mass Fraction] in Serum or PlasmaOrdered By: Denice Buckner on 15-72-8483Qugh saturation [Mass fraction]21.0 %20-50Sam[facility] Health Centercan and CBCon 03-11-2022 Anisocytosis Ql (Bld)SlightNormalOur Lady Of Mercy Hospital - AndersonComment on above:Performed By: #### SCAN CBC ####[place] [address] USABasophils (Bld) [#/Vol]0.1 10*3/uLNormal0.0-0.2 [facility] - AndersonComment on above:Performed By: #### SCAN CBC ####[place] [address] [place] Basophils/100 WBC (Bld)0.8 %Normal.[facility] - AndersonComment on above:Performed By: #### SCAN CBC ####[place] [address] USAEosinophils (Bld) [#/Vol]0.1 10*3/uLNormal0.0-0.45 [facility] - AndersonComment on above:Performed By: #### SCAN CBC ####[place] [address] [place] Eosinophils/100 WBC (Bld)1.0 %Normal.[facility] - AndersonComment on above:Performed By: #### SCAN CBC ####[place] [address] USAErythrocyte distribution width (RBC) [Ratio]14.4 % Azfoxp60.9-15.3FCleveland Clinic South Pointe HospitalComment on above:Performed By: #### SCAN CBC ####[place] [address] USAHematocrit (Bld) [Volume fraction]24.7 %Low34.0-46.4FCleveland Clinic South Pointe HospitalComment on above:Performed By: #### SCAN CBC ####[place] [address] USAHemoglobin (Bld) [Mass/Vol]8.3 g/dLLow11.8-15.4FCleveland Clinic South Pointe HospitalComment on above: Performed By: #### SCAN CBC ####[address] [address] USAHypochromasiaSlightNoKettering Health Washington TownshipComment on above:Performed By: #### SCAN CBC ####[address] [address] USALymphocytes (Bld) [#/Vol]2.0 10*3/uLNormal1.00-4.8[facility] - AndersonComment on above:Performed By: #### SCAN CBC ####[place] [address] USALymphocytes/100 WBC (Bld)20.6 %Normal.[facility] - AndersonComment on above:Performed By: #### SCAN CBC ####[address] [address] USAMCH (RBC) [Entitic mass]31.5 lsYmbiuh15.7-34.3FCleveland Clinic South Pointe HospitalComment on above:Performed By: #### SCAN CBC ####[address] [address] USAMCV (RBC) [Entitic vol]93.5 lZByxkif94-422RckxvqzkrOur Lady Of Mercy Hospital - AndersonComment on above:Performed By: #### SCAN CBC ####[address] [address] USAMean Corpuscular HGB Conc33.7 g/fUIsaxso27.0-35.0[facility] - AndersonComment on above:Performed By: #### SCAN CBC ####[address] [address] USAMicrocytosisSlightMarietta Osteopathic ClinicComment on above:Performed By: #### SCAN CBC ####[place] [address] USAMonocytes (Bld) [#/Vol]1.1 10*3/uLHigh0.0-0.8 [facility] - AndersonComment on above:Performed By: #### SCAN CBC ####[address] [address] [place] Monocytes/100 WBC (Bld)11.4 %Normal.[facility] - AndersonComment on above:Performed By: #### SCAN CBC ####[address] [address] USANeutrophils (Bld) [#/Vol]6.4 10*3/uLNormal1.8-7.7 [facility] - AndersonComment on above:Performed By: #### SCAN CBC ####[address] [address] [facility] Neutrophils/100 WBC (Bld)66.2 %Normal.[facility] - AndersonComment on above:Performed By: #### SCAN CBC ####[address] [address] USANRBC%0.6 /100{WBC}High0-0.5FCleveland Clinic South Pointe HospitalComtrinity health [place] on above:Performed By: #### SCAN CBC ####[address] [address] USAPlatelet Estimate NormalNormalMarietta Osteopathic ClinicComment on above:Performed By: #### SCAN CBC ####[address] [address] USAPlatelet mean volume (Bld) [Entitic vol]9.4 fLNormal6.3-10.7 [facility] - AndersonComment on above:Performed By: #### SCAN CBC ####[address] [address] [place] Platelet MorphologyNormalNormalNormSelect Medical Specialty Hospital - CantonComment on above:Result Comment: PERFORMED BY:[address] [place], [place] [phone] MEDICAL ANDRE SINGER M.D. Performed By: #### SCAN CBC ####J.W. [facility] [place] [address] USAPlatelets (Bld) [#/Vol]281 10*3/nQQfjxlr317-669 [facility] - AndersonComment on above:Performed By: #### SCAN CBC ####[facility] [place] [address] [place] PoikilocytosisSlightNoKettering Health Washington TownshipComment on above: Performed By: #### SCAN CBC ####[address] [address] USAPolychromasiaModerateNoKettering Health Washington TownshipComment on above:Performed By: #### SCAN CBC ####[address] [address] USARBC (Bld) [#/Vol]2.64 10*6/uLLow3.60-5.00[facility] - AndersonComment on above:Performed By: #### SCAN CBC ####[address] [address] USAWBC (Bld) [#/Vol]9.9 10*3/uLNormal3.8-11.6FCleveland Clinic South Pointe HospitalComment on above:Performed By: #### SCAN CBC ####[address] [address] USABasic Metabolic Panelon 35-11-9180Btvga gap [Moles/Vol]13.7 mmol/LNormal6.0-15.0[facility] - AndersonComment on above:Order Comment: TO BE DRAWN WITH VANCO PEAK PER RN Performed By: #### BMP ####[address] [address] USACalcium [Mass/Vol]7.2 mg/dLLow8.2-10.2FCleveland Clinic South Pointe HospitalComment on above:Order Comment: TO BE DRAWN WITH VANCO PEAK PER RNPerformed By: #### BMP ####[address] [address] USAChloride [Moles/Vol]100 mmol/FTejslq45-448KobqboucjOur Lady Of Mercy Hospital - AndersonComment on above:Order Comment: TO BE DRAWN WITH VANCO PEAK PER RNPerformed By: #### BMP ####[address] [place] [address] USACO2 [Moles/Vol]18.5 mmol/LLow22.0-30.0[facility] - AndersonComment on above:Order Comment: TO BE DRAWN WITH VANCO PEAK PER RNPerformed By: #### BMP ####[address] [address] USACreatinine [Mass/Vol]0.63 mg/dLNormal0.44-1.03 [facility] - AndersonComment on above:Order Comment: TO BE DRAWN WITH VANCO PEAK PER RNPerformed By: #### BMP ####[address] [address] USACreatinine Clr Calc Vxacvzyc10.60 [facility] ClinicComment on above:Order Comment: TO BE DRAWN WITH VANCO PEAK PER RNResult Comment: PERFORMED BY:[address] [place], [place] [phone] MEDICAL DIRECTORKIMBERLYN SINGER M.D.Performed By: #### BMP ####[address] [address] USAEstimated GFR ( Brenda> 60 [facility] ClinicComment on above:Order Comment: TO BE DRAWN WITH VANCO PEAK PER RNResult Comment: GFR estimated reference range: According to KDOQI guidelines, <60 ml/min/1.73m2 is sufficient to diagnose a patient with chronic kidney disease.Performed By: #### BMP ####[address] [address] USAEstimated GFR (Non- Am> 60[facility]opathic ClinicComment on above:Order Comment: TO BE DRAWN WITH VANCO PEAK PER RNPerformed By: #### BMP ####[address] [address] USAGlucose [Mass/Vol]181 mg/tOMtvi79-129SrgtqpbzfOur Lady Of Mercy Hospital - AndersonComment on above:Order Comment: TO BE DRAWN WITH VANCO PEAK PER RNResult Comment: Random Glucose Reference Range is dependent on time and content of last meal. Glucose of more than 200 mg/dL in a nonstressed, ambulatory subject supports the diagnosis of Diabetes Mellitus. ADA recommended reference rangePerformed By: #### BMP ####[address] USAPotassium [Moles/Vol] 3.2 mmol/LLow3.5-5.1FCleveland Clinic South Pointe HospitalComment on above:Order Comment: TO BE DRAWN WITH VANCO PEAK PER RNPerformed By: #### BMP ####[address] USASodium [Moles/Vol]129 mmol/LTea394-421FllnudlqfOur Lady Of Mercy Hospital - AndersonComtrinity health livonia on above:Order Comment: TO BE DRAWN WITH VANCO PEAK PER RNPerformed By: #### BMP ####[address] USAUrea nitrogen [Mass/Vol]8 mg/dLLow9-23[facility] - AndersonComment on above:Order Comment: TO BE DRAWN WITH VANCO PEAK PER RNPerformed By: #### BMP ####[address] USAComplete Blood Count Auto Diffon 97-64-2965Ueytdquvl (Bld) [#/Vol]0.0 10*3/uLNormal0.0-0.2FCleveland Clinic South Pointe HospitalComtrinity health [place] on above:Result Comment: PERFORMED BY:[address] [address] [place], [place] [phone] MEDICAL DIRECTORKIMBERLYN SINGER M.D.Performed By: #### CBC ####[address] USABasophils/100 WBC (Bld)0.5 % Normal.[facility] - AndersonComment on above:Performed By: #### CBC ####[address] [place] Eosinophils (Bld) [#/Vol]0.0 10*3/uLNormal0.0-0.45[facility] - AndersonComment on above:Performed By: #### CBC ####[place] [address] USAEosinophils/100 WBC (Bld)0.6 %Normal. [facility] - AndersonComment on above:Performed By: #### CBC ####[address] Erythrocyte distribution width (RBC) [Ratio]14.3 %Wumlyk58.9-15.3FCleveland Clinic South Pointe HospitalComment on above:Performed By: #### CBC ####[address] StreetHematocrit (Bld) [Volume fraction]24.3 %Low34.0-46.4FCleveland Clinic South Pointe HospitalComment on above:Performed By: #### CBC ####[address] StreetHemoglobin (Bld) [Mass/Vol]8.2 g/dLLow11.8-15.4 [facility] - AndersonComment on above:Performed By: #### CBC ####[address] Lymphocytes (Bld) [#/Vol]1.0 10*3/uLNormal1.00-4.8[facility] - AndersonComment on above:Performed By: #### CBC ####[place] [address] USALymphocytes/100 WBC (Bld)15.1 %Normal. [facility] - AndersonComment on above:Performed By: #### CBC ####[address] StreetMCH (RBC) [Entitic mass]32.0 xsFplrpn33.7-34.3FC[facility] Hospital Comment on above:Performed By: #### CBC ####[address] StreetMCV (RBC) [Entitic vol]94.7 sFGrcjjz00-803 [facility] - AndersonComment on above:Performed By: #### CBC ####[place] [address] USAMean Corpuscular HGB Conc33.8 g/vXDrdsnj93.0-35.0[facility] Comment on above:Performed By: #### CBC ####[place] [address] USAMonocytes (Bld) [#/Vol]0.6 10*3/uLNormal 0.0-0.8[facility] - AndersonComment on above:Performed By: #### CBC ####[place] [address] [place] Monocytes/100 WBC (Bld)9.5 %Normal.[facility] - AndersonComment on above:Performed By: #### CBC ####[place] [address] USANeutrophils (Bld) [#/Vol]4.8 10*3/uLNormal1.8-7.7 [facility] - AndersonComment on above:Performed By: #### CBC ####[place] [address] [place] Neutrophils/100 WBC (Bld)74.3 %Normal.[facility] - AndersonComment on above:Performed By: #### CBC ####[place] [address] USANRBC%0.2 /100{WBC}Normal0-0.5FCleveland Clinic South Pointe HospitalComment on above:Performed By: #### CBC ####[place] [address] USAPlatelet mean volume (Bld) [Entitic vol]8.9 fLNormal6.3-10.7FCleveland Clinic South Pointe HospitalComment on above:Performed By: #### CBC ####[place] [address] USAPlatelets (Bld) [#/Vol]206 10*3/fUPdswvq040-040 [facility] - AndersonComment on above:Performed By: #### CBC ####[address] [place] [address] USARBC (Bld) [#/Vol]2.57 10*6/uLLow3.60-5.00[facility] - AndersonComment on above:Performed By: #### CBC ####[address] [place] [address] USAWBC (Bld) [#/Vol]6.4 10*3/uLNormal3.8-11.6FCleveland Clinic South Pointe HospitalComment on above:Performed By: #### CBC ####[address] [address] USACortisolon 03-10-2022 Iefahqcv53.7 ug/dLNoKettering Health Washington TownshipComment on above:Result Comment: Reference range: AM 6 - 24 ug/dl PM <10 ug/dlPERFORMED BY:[address] [address] [place]SEINUSKYSH[place]WO[place], [place] [phone] MEDICAL DIRECTORKIMBERLYN SINGER M.D.Performed By: #### PHOS, JERRY, TSH3 ####[address] USAECG 12 lead ECGon 50-22-0842YUI 12 lead ECGNoKettering Health Washington Township Glucose Poct Glucometerson 42-20-1754Jmjssdu [Mass/Vol]146 mg/dLNoKettering Health Washington TownshipComment on above:Result Comment: Random Glucose Reference Range is dependent on time and content of last meal. Glucose of more than 200 mg/dL in a nonstressed, ambulatory subject supports the diagnosis of Diabetes Mellitus.PERFORMED BY:[address] [address]ER[address] BALDERRAMARASHAUNSHERWOOD, [place] [phone] MEDICAL DIRECTORKIMBERLYN SINGER M.D.Performed By: #### GLULS ####Point of Care testing,Sczucuj2Zti3: Cleaned [facility]lyria Medical CenterComment on above:Result Comment: PERFORMED BY:[address] [address] HUIZARTeeteeRASHAUN, [place] [phone] MEDICAL DIRECTORKIMBERLYN SINGER M.D.Performed By: #### GLULS ####Point of Care testing,Glucose [Mass/Vol]173 mg/dLMarietta Osteopathic Clinic Comment on above:Result Comment: Random Glucose Reference Range is dependent on time and content of last meal. Glucose of more than 200 mg/dL in a nonstressed, ambulatory subject supports the diagnosis of Diabetes Mellitus.Performed By: #### GLULS ####Point of Care testing,Mqxhxpg3Xvs9: [facility] HospitalComment on above:Result Comment: PERFORMED BY:[address] MARILYNHaroonTeeteeRASHAUN, [place] [phone] MEDICAL DIRECTORKIMBERLYN SINGER M.D.Performed By: #### GLULS ####Point of Care testing,Glucose [Mass/Vol]171 mg/dLMarietta Osteopathic Clinic Comment on above:Result Comment: Random Glucose Reference Range is dependent on time and content of last meal. Glucose of more than 200 mg/dL in a nonstressed, ambulatory subject supports the diagnosis of Diabetes Mellitus.Performed By: #### GLULS ####Point of Care testing,Ccnolbp5Esc6: [facility] Cary HospitalComment on above:Result Comment: PERFORMED BY:[address] HUIZARTeeteeRASHAUN, [place] [phone] MEDICAL DIRECTORKIMBERLYN SINGER M.D.Performed By: #### GLULS ####Point of Care testing,Glucose [Mass/Vol]183 mg/dLMarietta Osteopathic Clinic Comment on above:Result Comment: Random Glucose Reference Range is dependent on time and content of last meal. Glucose of more than 200 mg/dL in a nonstressed, ambulatory subject supports the diagnosis of Diabetes Mellitus.Performed By: #### GLULS ####Point of Care testing,MR head/brain wo/w conon 90-79-1565YQ head/brain wo/w conNormalOur Lady Of Mercy Hospital - AndersonPhosphoruson 74-31-8180Anakcsjun [Mass/Vol]2.5 mg/dLNormal2.5-4.6FCleveland Clinic South Pointe HospitalComment on above:Performed By: #### PHOS, JERRY, TSH3 ####[address] [place], [place] USARandom cortisol measurementOrdered By: Denice Buckner on 90-22-5578Phpipqmm [Mass/Vol]18.7 ug/dL [facility] - AndersonComment on above:Reference range: AM 6 - 24 ug/dl PM <10 ug/dlTSH DL <= 0.005 mIU/L QnOrdered By: Denice Buckner on 03-10-2022 TSH Qn1.62 m[IU]/L0.45-5.33[facility] - AndersonThyroid Stimulating Hormoneon 25-49-8551CFX Qn1.62 m[IU]/LNormal0.45-5.33[facility] - AndersonComment on above:Performed By: #### PHOS, JERRY, TSH3 ####[address] USAComplete Blood Count Auto Diffon 00-39-4557Joivqtxtk (Bld) [#/Vol]0.0 10*3/uLNormal0.0-0.2FCleveland Clinic South Pointe HospitalComment on above:Result Comment: PERFORMED BY:[address] [place], [place] [phone] MEDICAL ANDRE SINGER M.D.Performed By: #### CBC ####[address] [address] USABasophils/100 WBC (Bld)0.2 % Normal.[facility] - AndersonComment on above:Performed By: #### CBC ####[address] [address] [place] Eosinophils (Bld) [#/Vol]0.0 10*3/uLNormal0.0-0.45[facility] - AndersonComment on above:Performed By: #### CBC ####[address] [address] USAEosinophils/100 WBC (Bld)0.5 %Normal. [facility] - AndersonComment on above:Performed By: #### CBC ####[address] [facility] Erythrocyte distribution width (RBC) [Ratio]14.2 %Cnarav94.9-15.3FCleveland Clinic South Pointe HospitalComment on above:Performed By: #### CBC ####[place] [address] USAHematocrit (Bld) [Volume fraction]20.5 %Low34.0-46.4FCleveland Clinic South Pointe HospitalComment on above:Performed By: #### CBC ####[place] [address] USAHemoglobin (Bld) [Mass/Vol]7.0 g/dLLow11.8-15.4 [facility] - AndersonComment on above:Performed By: #### CBC ####[address] Lymphocytes (Bld) [#/Vol]1.5 10*3/uLNormal1.00-4.8[facility] - AndersonComment on above:Performed By: #### CBC ####[address] USALymphocytes/100 WBC (Bld)23.2 %Normal. [facility] - AndersonComment on above:Performed By: #### CBC ####[address] USAMCH (RBC) [Entitic mass]31.9 pfKrgcpz57.7-34.3FC[facility] Comment on above:Performed By: #### CBC ####[address] USAMCV (RBC) [Entitic vol]93.5 xKCwpdfu38-979 [facility] - AndersonComment on above:Performed By: #### CBC ####[place] [address] USAMean Corpuscular HGB Conc34.1 g/qRSrgotl82.0-35.0[facility] Comment on above:Performed By: #### CBC ####[place] [address] USAMonocytes (Bld) [#/Vol]1.0 10*3/uLHigh0.0-0.8 [facility] - AndersonComment on above:Performed By: #### CBC ####[place] [address] [place] Monocytes/100 WBC (Bld)15.3 %Normal.[facility] - AndersonComment on above:Performed By: #### CBC ####[place] [address] USANeutrophils (Bld) [#/Vol]3.8 10*3/uLNormal1.8-7.7 [facility] - AndersonComment on above:Performed By: #### CBC ####[place] [address] [place] Neutrophils/100 WBC (Bld)60.8 %Normal.[facility] - AndersonComment on above:Performed By: #### CBC ####[place] [address] USANRBC%0.1 /100{WBC}Normal0-0.5FCleveland Clinic South Pointe HospitalComment on above:Performed By: #### CBC ####[place] [address] USAPlatelet mean volume (Bld) [Entitic vol]8.6 fLNormal6.3-10.7FCleveland Clinic South Pointe HospitalComment on above:Performed By: #### CBC ####[place] [address] USAPlatelets (Bld) [#/Vol]192 10*3/uLSignificant change ocuk560-106RvzatcoqjOur Lady Of Mercy Hospital - AndersonComment on above:Performed By: #### CBC ####[address] [address] [facility] RBC (Bld) [#/Vol]2.20 10*6/uLLow3.60-5.00[facility] Comment on above:Performed By: #### CBC ####[address] [facility]OS[facility]ITALWBC (Bld) [#/Vol]6.3 10*3/uLNormal3.8-11.6 [facility] - AndersonComment on above:Performed By: #### CBC ####[address] [facility] Comprehensive Metabolic Panelon 91-94-5782Mqmhzzy [Mass/Vol]1.8 g/dLLow3.2-5.5 [facility] - AndersonComment on above:Performed By: #### MG, CMP ####[address] [facility] Albumin/Globulin [Mass ratio]0.8 {ratio}[facility] Comment on above:Performed By: #### MG, CMP ####[address] [address] USAALP [Catalytic activity/Vol]88 U/L Hshfth55-36AaftljvuaOur Lady Of Mercy Hospital - AndersonComment on above:Performed By: #### MG, CMP ####[address] [address] USAALT [Catalytic activity/Vol]10 U/ZXtlbdu90-17IzblvzfwpOur Lady Of Mercy Hospital - AndersonComment on above:Performed By: #### MG, CMP ####[address] [address] USAAnion gap [Moles/Vol]8.4 mmol/LNormal 6.0-15.0[facility] - AndersonComment on above:Performed By: #### MG, CMP ####[address] [facility] AST [Catalytic activity/Vol]12 U/SDflhqq20-66NdzgxjakfOur Lady Of Mercy Hospital - Anderson Comment on above:Performed By: #### MG, CMP ####[place] [address] USABilirubin [Mass/Vol]0.6 mg/dLNormal 0.3-1.2FCleveland Clinic South Pointe HospitalComment on above:Performed By: #### MG, CMP ####[address] Calcium [Mass/Vol]6.6 mg/dLLow8.2-10.2FCleveland Clinic South Pointe HospitalComment on above:Performed By: #### MG, CMP ####[place] [address] USAChloride [Moles/Vol]101 mmol/LMigaln06-804QaaeyabxoOur Lady Of Mercy Hospital - AndersonComment on above:Performed By: #### MG, CMP ####[place] [address] USACO2 [Moles/Vol]22.9 mmol/GFzrruq33.0-30.0[facility] - AndersonComment on above:Performed By: #### MG, CMP ####[place] [address] USACreatinine [Mass/Vol]0.63 mg/dLNormal0.44-1.03 [facility] - AndersonComment on above:Performed By: #### MG, CMP ####[place] [address] [place] Creatinine Clr Calc Kekwmsxg29.80NoKettering Health Washington TownshipComment on above:Performed By: #### MG, CMP ####[facility] [address] [place] [address] USAEstimated GFR ( Brenda> 60NoKettering Health Washington TownshipComment on above:Result Comment: GFR estimated reference range: According to KDOQI guidelines, <60 ml/min/1.73m2 is sufficient to diagnose a patient with chronic kidney disease.Performed By: #### MG, CMP ####[address] [facility] Estimated GFR (Non- Am> 60NormalOur Lady Of Mercy Hospital - AndersonComment on above:Performed By: #### MG, CMP ####[address] USAGlobulin (S) [Mass/Vol]2.4 g/dLNormalOur Lady Of Mercy Hospital - AndersonComment on above:Performed By: #### MG, CMP ####[address] USAGlucose [Mass/Vol] 201 mg/hTGdid79-605LtavddfmvOur Lady Of Mercy Hospital - AndersonComment on above:Result Comment: Random Glucose Reference Range is dependent on time and content of last meal. Glucose of more than 200 mg/dL in a nonstressed, ambulatory subject supports the diagnosis of Diabetes Mellitus. ADA recommended reference range Performed By: #### MG, CMP ####[address] USAPotassium [Moles/Vol]3.3 mmol/LLow3.5-5.1FCleveland Clinic South Pointe HospitalComment on above:Performed By: #### MG, CMP ####[address] USAProtein [Mass/Vol] 4.2 g/dLLow6.1-7.9[facility] - AndersonComment on above:Performed By: #### MG, CMP ####[address] USASodium [Moles/Vol]129 mmol/XKxr990-781NvncmyricOur Lady Of Mercy Hospital - AndersonComment on above:Performed By: #### MG, CMP ####[address] USAUrea nitrogen [Mass/Vol]11 mg/dL Normal9-23[facility] - AndersonComment on above:Performed By: #### MG, CMP ####[address] USAEthyl Alcohol Profileon 12-76-3858Sxypkzi [Mass/Vol]mg/dLMarietta Osteopathic ClinicComment on above:Performed By: #### ETOH ####[facility] [address] [place] [address] USAPercent EthanolNot performedMarietta Osteopathic ClinicComtrinity health livonia on above:Result Comment: PERFORMED BY:[address] [place], [place] [phone] MEDICAL DIRECTORKIMBERLYN SINGER M.D.Performed By: #### ETOH ####[facility] [address] [place] [address] [place] Glucose Poct Glucometerson 98-49-6971Fcicauw [Mass/Vol]143 mg/dLMarietta Osteopathic ClinicComtrinity health livonia on above:Result Comment: Random Glucose Reference Range is dependent on time and content of last meal. Glucose of more than 200 mg/dL in a nonstressed, ambulatory subject supports the diagnosis of Diabetes Mellitus.PERFORMED BY:[address] [place], [place] [phone] MEDICAL ANDRE SINGER M.D.Performed By: #### GLULS ####Point of Care testing,Glucose [Mass/Vol]180 mg/dLMarietta Osteopathic ClinicComtrinity health [place]onia on above:Result Comment: Random Glucose Reference Range is dependent on time and content of last meal. Glucose of more than 200 mg/dL in a nonstressed, ambulatory subject supports the diagnosis of Diabetes Mellitus.PERFORMED BY:[address] [place], [place] [phone] MEDICAL ANDRE SINGER M.D.Performed By: #### GLULS ####Point of Care testing,Ccjzvmm9Kpb3: Cleaned MeterMarietta Osteopathic ClinicComtrinity health livonia on above:Result Comment: PERFORMED BY:[address] [place], [place] [phone] MEDICAL ANDRE SINGER M.D.Performed By: #### GLULS ####Point of Care testing,Glucose [Mass/Vol]230 mg/dLNormalOur Lady Of Mer[facility] Hospital - Anderson Comment on above:Result Comment: Random Glucose Reference Range is dependent on time and content of last meal. Glucose of more than 200 mg/dL in a nonstressed, ambulatory subject supports the diagnosis of Diabetes Mellitus.Performed By: #### GLULS ####Point of Care testing,Hemoglobin and Hematocriton 03-09-2022 Hematocrit (Bld) [Volume fraction]22.3 %Low34.0-46.4FCleveland Clinic South Pointe HospitalComment on above:Result Comment: PERFORMED BY:[address] MARILYNHaroonTeeteeRASHA[place], [place] [phone] MEDICAL DIRECTORKIMBERLYN SINGER M.D.Performed By: #### HH ####[address] [address] USAHemoglobin (Bld) [Mass/Vol]7.5 g/dLLow 11.8-15.4FCleveland Clinic South Pointe HospitalComment on above:Performed By: #### HH ####[address] [address] [place] Magnesiumon 20-78-2199Uucpmqzgf [Mass/Vol]2.0 mg/dLSignificant change down 1.6-2.6FCleveland Clinic South Pointe HospitalComment on above:Result Comment: PERFORMED BY:[address] BALDERRAMARASHAUN, [place] [phone] MEDICAL DIRECTORKIMBERLYN SINGER M.D.Performed By: #### MG, CMP ####[address] [address] USASerum or plasma ethanol measurement (mass/volume)Ordered By: Deangelo Kulkarni on 61-32-0373Iizsxun [Mass/Vol]mg/dLOur Lady Of Mercy Hospital - AndersonEthanol [Mass/Vol]TNPOur Lady Of Mercy Hospital - AndersonComment on above:Test not performedActivated partial thromboplastin time (aPTT) in platelet poor plasma by coagulation aOrdered By: Tammy Smyth on 42-50-5371xSRN Coag (PPP) [Time] 31.5 s25.1-36.5FCleveland Clinic South Pointe HospitalAlbumin [Mass/volume] in Serum or PlasmaOrdered By: Tammy Smyth on 39-48-6932Ocrrciy [Mass/Vol]2.6 g/dL 3.2-5.5FCleveland Clinic South Pointe HospitalAmmoniaon 56-27-8269Asddngn (P) [Mass/Vol]ug/eXOav50-93IfsakfysxOur Lady Of Mercy Hospital - AndersonComment on above:Order Comment: TOO OLD TO USE NOW PER CHEMResult Comment: PERFORMED BY:[facility] [place], [place] [phone] MEDICAL DIRECTORKIMBERLYN SINGER M.D.Performed By: #### AMM ####[facility] [place] [address] USAAmphetamine Screen Ql (U) Ordered By: Tammy Smyth on 63-66-6950Skrbftczjfbm Ql (U)NegativeNegative [facility] Hospital - AndersonAnisocytosis LM Ql (Bld)Ordered By: Tammy Smyth on 22-62-1864Bgzurignqafq Ql (Bld)SlightOur Lady Of Mercy Hospital - Anderson Arterial Blood Gason 99-00-7837XVS Base Excess-1.4 mmol/LNormal-3.0-3.0[facility] - AndersonComment on above:Performed By: #### ABG ####Point of Care testing,ABG Frac Inspired O221 %NormalOur Lady Of Mercy Hospital - Anderson Comment on above:Performed By: #### ABG ####Point of Care testing,ABG Oxygen Content3.3 mmol/LLow6.6-9.7FCleveland Clinic South Pointe HospitalComment on above: Performed By: #### ABG ####Point of Care testing,ABG Oxygen Uqaqbtqgnc17.4 %Low 95.0-100.0[facility] Hospital - AndersonComment on above:Performed By: #### ABG ####Point of Care testing,ABG NIF974.2 mm[Hg]Off scale low35.0-45.0[facility] - AndersonComment on above:Performed By: #### ABG ####Point of Care testing,ABG PH7.67Avlc3.35-7.45[facility] - AndersonComment on above:Performed By: #### ABG ####Point of Care testing,ABG PO230.3 mm[Hg]Off scale low80.0-100.0[facility] - AndersonComment on above:Performed By: #### ABG ####Point of Care testing,CO2 [Moles/Vol]22.4 mmol/LLow23.0-27.0 [facility] - AndersonComment on above:Performed By: #### ABG ####Point of Care testing,HCO3 (Bld) [Moles/Vol]21.5 mmol/LLow23.0-29.0[facility] Hospital - AndersonComment on above:Performed By: #### ABG ####Point of Care testing,Respiratory CriticalNormSelect Medical Specialty Hospital - CantonComment on above:Result Comment: Critical Value called on: 03/08/2022 at 15:52PERFORMED BY:[address], [place] [phone] MEDICAL DIRECTORKIMBERLYN SINGER M.D.Performed By: #### ABG ####Point of Care testing,VBG Draw SiteVenousNormSelect Medical Specialty Hospital - CantonComment on above:Performed By: #### ABG ####Point of Care testing, Automated erythrocytes count in urine sediment (number/area)Ordered By: Tammy Smyth on 75-67-6332CAP Auto (Urine sed) [#/Area]5-9 [HPF]0-4FCleveland Clinic South Pointe HospitalAutomated leukocytes count in urine sediment (number/area)Ordered By: Tammy Smyth on 59-74-1651VER Auto (Urine sed) [#/Area]0-1 [HPF]0-4 [facility] - AndersonBarbiturates [Presence] in UrineOrdered By: Tammy Smyth on 44-81-1248Eabhabiimngc Ql (U)NegativeNegativeOur Lady Of Mercy Hospital - AndersonBasic Metabolic Panelon 51-56-4761Akvah gap [Moles/Vol] 11.0 mmol/LNormal6.0-15.0[facility] - AndersonComment on above:Order Comment: RN NOTIFIED NO VEINSPerformed By: #### BMP ####[address] [address] USACalcium [Mass/Vol]6.7 mg/dLLow 8.2-10.2FCleveland Clinic South Pointe HospitalComment on above:Order Comment: RN NOTIFIED NO VEINSPerformed By: #### BMP ####[address] [address] USAChloride [Moles/Vol]94 mmol/IZel63-776 [facility] - AndersonComment on above:Order Comment: RN NOTIFIED NO VEINSPerformed By: #### BMP ####[address] [address] USACO2 [Moles/Vol]23.3 mmol/UYtshum70.0-30.0[facility] - AndersonComment on above:Order Comment: RN NOTIFIED NO VEINS Performed By: #### BMP ####[address] [address] USACreatinine [Mass/Vol]0.65 mg/dLNormal0.44-1.03 [facility] - AndersonComment on above:Order Comment: RN NOTIFIED NO VEINSPerformed By: #### BMP ####[address] [address] USACreatinine Clr Calc Pvbvdwqi89.80NoKettering Health Washington TownshipComment on above:Order Comment: RN NOTIFIED NO VEINS Result Comment: PERFORMED BY:[address] [place], [place] [phone] MEDICAL ANDRE SINGER M.D. Performed By: #### BMP ####[address] [address] USAEstimated GFR ( Brenda> 60NoKettering Health Washington TownshipComment on above:Order Comment: RN NOTIFIED NO VEINS Result Comment: GFR estimated reference range: According to KDOQI guidelines, <60 ml/min/1.73m2 is sufficient to diagnose a patient with chronic kidney disease.Performed By: #### BMP ####[facility] [place] [address] USAEstimated GFR (Non- Am> 60NormalOur Lady Of Mercy Hospital - AndersonComment on above:Order Comment: RN NOTIFIED NO VEINS Performed By: #### BMP ####[facility] [place] [address] USAGlucose [Mass/Vol]220 mg/fOPhog19-762QakfzmdrlOur Lady Of Mercy Hospital - AndersonComment on above:Order Comment: RN NOTIFIED NO VEINS Result Comment: Random Glucose Reference Range is dependent on time and content of last meal. Glucose of more than 200 mg/dL in a nonstressed, ambulatory subject supports the diagnosis of Diabetes Mellitus. ADA recommended reference rangePerformed By: #### BMP ####[address] [place] [address] USAPotassium [Moles/Vol]3.3 mmol/LLow3.5-5.1FCleveland Clinic South Pointe HospitalComment on above:Order Comment: RN NOTIFIED NO VEINS Performed By: #### BMP ####[address] [place] [address] USASodium [Moles/Vol]125 mmol/ELkn394-525QvufbxlbsOur Lady Of Mercy Hospital - AndersonComment on above:Order Comment: RN NOTIFIED NO VEINS Performed By: #### BMP ####[address] [place] [address] USAUrea nitrogen [Mass/Vol]10 mg/dLNormal9-23[facility] - AndersonComment on above:Order Comment: RN NOTIFIED NO VEINS Performed By: #### BMP ####[address] [place] [address] USAAnion gap [Moles/Vol]5.7 mmol/LLow6.0-15.0[facility] - AndersonComment on above:Performed By: #### BMP ####[address] [address] USACalcium [Mass/Vol]7.0 mg/dLLow8.2-10.2FCleveland Clinic South Pointe HospitalComment on above:Performed By: #### BMP ####[facility] [place] [address] USAChloride [Moles/Vol]103 mmol/DDavbzy32-016SwerrdmyaOur Lady Of Mercy Hospital - Anderson Comment on above:Performed By: #### BMP ####[address] [place] [address] USACO2 [Moles/Vol]20.3 mmol/LLow22.0-30.0 [facility] - AndersonComment on above:Performed By: #### BMP ####[address] [address] [place] Creatinine [Mass/Vol]0.58 mg/dLNormal0.44-1.03[facility] Comment on above:Performed By: #### BMP ####[address] [address] USACreatinine Clr Calc Qpkdmnbl98.80Normal [facility] - AndersonComment on above:Result Comment: PERFORMED BY:[address] [place], [place] [phone] MEDICAL ANDRE SINGER M.D.Performed By: #### BMP ####[address] [address] [place] Estimated GFR ( Brenda> 60NormalOur Lady Of Mercy Hospital - AndersonComment on above:Result Comment: GFR estimated reference range: According to KDOQI guidelines, <60 ml/min/1.73m2 is sufficient to diagnose a patient with chronic kidney disease.Performed By: #### BMP ####[address] [address] USAEstimated GFR (Non- Am> 60Normal [facility] - AndersonComment on above:Performed By: #### BMP ####[address] [address] USAGlucose [Mass/Vol]202 mg/oOFqcc77-296GrbhohnraOur Lady Of Mercy Hospital - AndersonComment on above: Result Comment: Random Glucose Reference Range is dependent on time and content of last meal. Glucose of more than 200 mg/dL in a nonstressed, ambulatory subject supports the diagnosis of Diabetes Mellitus. ADA recommended reference rangePerformed By: #### BMP ####[facility] [place] [address] USAPotassium [Moles/Vol]3.0 mmol/LLow3.5-5.1FCleveland Clinic South Pointe HospitalComment on above:Performed By: #### BMP ####[address] [place] [address] USASodium [Moles/Vol]126 mmol/GRau731-732JgihlsglbOur Lady Of Mercy Hospital - AndersonComment on above:Performed By: #### BMP ####[address] [place] [address] USAUrea nitrogen [Mass/Vol]8 mg/dLLow9-23[facility] Comment on above:Performed By: #### BMP ####[address] [place] [address] USABasophils Auto (Bld) [#/Vol]Ordered By: Tammy Smyth on 01-54-1948Cjesvkmmq (Bld) [#/Vol]0.0 10*3/uL0.0-0.2FCleveland Clinic South Pointe HospitalBasophils/100 WBC Auto (Bld)Ordered By: Tammy Smyth on 67-97-5875Jolllfwxc/100 WBC (Bld)0.1 %.[facility] Benzodiazepines [Presence] in UrineOrdered By: Tammy Smyth on 03-08-2022 Benzodiazepines Ql (U)NegativeNegativeOur Lady Of Mercy Hospital - AndersonBilirubin Test strip Ql (U)Ordered By: Tammy Smyth on 65-10-0078Rpcvwjjbf Ql (U) NegativeNegSelect Medical TriHealth Rehabilitation HospitalBlood Cultureon 03-08-2022 Bacteria identified Cx Nom (Bld)NO GROWTH 5 DAYS PERFORMED BY: [facility] [address] [place] [address] PATHOLOGIST BROWNELL OPERATOR KIMBERLYN SINGER M.D.NormalOur Lady Of Mercy Hospital - AndersonComment on above: Performed By: #### CUBLD, LACTIC ####[address] [place] [address] USABacteria identified Cx Nom (Bld)[facility] Osteopathic ClinicComment on above:Performed By: #### CUBLD, LACTIC ####[facility] [phone] USACOVID CepheidOrdered By: Tammy Smyth on 56-29-3979QEUA-CoV-2 (COVID-19) Ab IA Ql NegativeNegativeOur Lady Of Mercy Hospital - AndersonComment on above:This is a duplicate Cepheid Xpert Xpress CoV-2/Flu/RSV Plus RNA by RT-PCR result to be used for statistical tracking purpose only.SARS-CoV-2 (COVID-19) RNA TESFAYE+probe Ql (Unsp spec)[facility] CenterARS-CoV-2 (COVID-19) RNA TESFAYE+probe Ql (Unsp spec)[facility] - AndersonCOVID-19 / Flu A/B / RSV PCRon 75-16-6244DDOR-CoV-2 (COVID-19) RNA TESFAYE+probe Ql (Unsp spec)[facility] HospitalComment on above:Performed By: #### COVID19 FLU RSV, CEPHEID NEG ####[facility] [phone] USACT head/brain wo conon 16-89-4612MM head/brain wo conNormalOur Lady Of Mercy Hospital - AndersonCannabinoids [Presence] in Urine by Screen methodOrdered By: Tammy Smyth on 47-96-5445Lwcoczjrxzst Screen Ql (U)PositiveNegative [facility] - AndersonComment on above:These are unconfirmed results and should not be used for legal purposes. Drug Cut-Off Concentration: AMPH 1000 ng/mL LUCIA 200 ng/mL SONDRA 200 ng/mL COCM 300 ng/mL OP 300 ng/mL PCP 25 ng/mL THC 20 ng/mLCepheid COVID PCR Negativeon 56-69-1905TNTR-CoV-2 (COVID-19) RNA TESFAYE+probe Ql (Unsp spec)NegativeNormalNegSelect Medical TriHealth Rehabilitation Hospital Comment on above:Result Comment: This is a duplicate Cepheid Xpert Xpress CoV- 2/Flu/RSV Plus RNA by RT-PCR result gagandeep used for statistical tracking purpose only.PERFORMED BY:[address] [place], [place] [phone] MEDICAL DIRECTORKIMBERLYN SINGER M.D.Performed By: #### COVID19 FLU RSV, CEPHEID NEG ####[address] [address] USAColor Auto (U)Ordered By: Tammy Smyth on 52-11-0770Ulmlp (U)YellowYelCleveland Clinic Children's Hospital for RehabilitationComprehensive Metabolic Panelon 84-69-7699Vdurohg [Mass/Vol]2.6 g/dLLow3.2-5.5FCleveland Clinic South Pointe HospitalComment on above:Performed By: #### HS TROP, PT, CK, CKMB, PTT, CMP, SCAN CBC ####[address] [address] USAAlbumin/Globulin [Mass ratio]0.9 {ratio}Normal [facility] - AndersonComment on above:Performed By: #### HS TROP, PT, CK, CKMB, PTT, CMP, SCAN CBC ####[address] [address] USAALP [Catalytic activity/Vol]132 U/BAeqs84-59 [facility] - AndersonComment on above:Performed By: #### HS TROP, PT, CK, CKMB, PTT, CMP, SCAN CBC ####[address] [address] USAALT [Catalytic activity/Vol]13 U/BBybsvd02-28 [facility] - AndersonComment on above:Performed By: #### HS TROP, PT, CK, CKMB, PTT, CMP, SCAN CBC ####[address] [address] USAAnion gap [Moles/Vol]16.3 mmol/LHigh6.0-15.0 [facility] - AndersonComment on above:Performed By: #### HS TROP, PT, CK, CKMB, PTT, CMP, SCAN CBC ####[address] [address] USAAST [Catalytic activity/Vol]17 U/GCbxzwq73-08 [facility] - AndersonComment on above:Performed By: #### HS TROP, PT, CK, CKMB, PTT, CMP, SCAN CBC ####[place] [address] USABilirubin [Mass/Vol]1.1 mg/dLNormal0.3-1.2FCleveland Clinic South Pointe HospitalComment on above:Performed By: #### HS TROP, PT, CK, CKMB, PTT, CMP, SCAN CBC ####[place] [address] USACalcium [Mass/Vol]7.5 mg/dLLow8.2-10.2FCleveland Clinic South Pointe HospitalComment on above:Performed By: #### HS TROP, PT, CK, CKMB, PTT, CMP, SCAN CBC ####[address] USAChloride [Moles/Vol]87 mmol/MZpf65-580FfrufokxqOur Lady Of Mercy Hospital - AndersonComment on above:Performed By: #### HS TROP, PT, CK, CKMB, PTT, CMP, SCAN CBC ####[address] USACO2 [Moles/Vol]21.2 mmol/LLow22.0-30.0[facility] - AndersonComment on above:Performed By: #### HS TROP, PT, CK, CKMB, PTT, CMP, SCAN CBC ####[address] USACreatinine [Mass/Vol]0.69 mg/dLNormal0.44-1.03 [facility] - AndersonComment on above:Performed By: #### HS TROP, PT, CK, CKMB, PTT, CMP, SCAN CBC ####[address] USACreatinine Clr Calc Ytmomfbj26.80NormalOur Lady Of Mercy Hospital - AndersonComment on above:Result Comment: PERFORMED BY:[address] [place], [place] [phone] MEDICAL DIRECTORKIMBERLYN SINGER M.D.Performed By: #### HS TROP, PT, CK, CKMB, PTT, CMP, SCAN CBC ####[address] [address] USAEstimated GFR ( Brenda> 60NoKettering Health Washington TownshipComment on above:Result Comment: GFR estimated reference range: According to KDOQI guidelines, <60 ml/min/1.73m2 is sufficient to diagnose a patient with chronic kidney disease.Performed By: #### HS TROP, PT, CK, CKMB, PTT, CMP, SCAN CBC ####[address] [place] Estimated GFR (Non- Am> 60[facility] Osteopathic ClinicComment on above:Performed By: #### HS TROP, PT, CK, CKMB, PTT, CMP, SCAN CBC ####[address] USAGlobulin (S) [Mass/Vol]3.0 g/dLNoKettering Health Washington TownshipComment on above: Performed By: #### HS TROP, PT, CK, CKMB, PTT, CMP, SCAN CBC ####[address] [address] USAGlucose [Mass/Vol]229 mg/mMLrqo98-252OkbbbcavaOur Lady Of Mercy Hospital - AndersonComment on above:Result Comment: Random Glucose Reference Range is dependent on time and content of last meal. Glucose of more than 200 mg/dL in a nonstressed, ambulatory subject supports the diagnosis of Diabetes Mellitus. ADA recommended reference rangePerformed By: #### HS TROP, PT, CK, CKMB, PTT, CMP, SCAN CBC ####[address] USAPotassium [Moles/Vol]2.5 mmol/LOff scale low3.5-5.1FCleveland Clinic South Pointe HospitalComment on above:Result Comment: Results called at 1424 on 03/08/22Performed By: #### HS TROP, PT, CK, CKMB, PTT, CMP, SCAN CBC ####[address] [address] USAProtein [Mass/Vol]5.6 g/dLLow6.1-7.9[facility] - AndersonComment on above:Performed By: #### HS TROP, PT, CK, CKMB, PTT, CMP, SCAN CBC ####[address] [address] USASodium [Moles/Vol]122 mmol/LOff scale bjc486-412 [facility] - AndersonComment on above:Result Comment: at 1424 on 03/08/22Performed By: #### HS TROP, PT, CK, CKMB, PTT, CMP, SCAN CBC ####[address] [address] USAUrea nitrogen [Mass/Vol]11 mg/dLNormal9-23[facility] - AndersonComment on above:Performed By: #### HS TROP, PT, CK, CKMB, PTT, CMP, SCAN CBC ####[address] [address] USACreatine Kinaseon 72-69-6966ZQ [Catalytic activity/Vol]46 U/QGylzxo12-378PrhksovbtOur Lady Of Mercy Hospital - AndersonComment on above:Performed By: #### HS TROP, PT, CK, CKMB, PTT, CMP, SCAN CBC ####[address] [address] USACreatine kinase [Enzymatic activity/volume] in Serum or PlasmaOrdered By: Tammy Smyth on 51-10-6006FI [Catalytic activity/Vol]46 U/S82-804PemjwxwsgOur Lady Of Mercy Hospital - AndersonCreatinine Kinase MBon 21-01-9180DV.MB [Mass/Vol]1.3 ng/mLNormal0.6-6.3FCleveland Clinic South Pointe HospitalComment on above:Performed By: #### HS TROP, PT, CK, CKMB, PTT, CMP, SCAN CBC ####[address] [address] USACKMB Relative Index 2.8 %High0.00-2.50[facility] - AndersonComment on above:Performed By: #### HS TROP, PT, CK, CKMB, PTT, CMP, SCAN CBC ####[facility] [address] [address] USACreatinine and Glomerular filtration rate.predicted panel (S/P/Bld)Ordered By: Tammy Smyth on 23-69-6945Tseuwnmcnb [Mass/Vol]0.58 mg/dL0.44-1.03[facility] Hospital - AndersonDipstick and Microscopicon 07-97-6482Ivhnazkeom (U)ClearNormalClear [facility] - AndersonComment on above:Order Comment: Name Collection Type:: Straight CatheterPerformed By: #### ADDONUAPLUS, URDS ####[address] [address] USABacteria,UrineNone SeenNormalNone SeenOur Lady Of Mercy Hospital - AndersonComment on above:Order Comment: Name Collection Type:: Straight CatheterPerformed By: #### ADDONUAPLUS, URDS ####[address] [address] USA Bilirubin,UrineNegativeNormalNegativeOur Lady Of Mercy Hospital - AndersonComment on above:Order Comment: Name Collection Type:: Straight CatheterPerformed By: #### ADDONUAPLUS, URDS ####[address] [address] USAColor (U)YellowNormalYellowOur Lady Of Mercy Hospital - AndersonComment on above:Order Comment: Name Collection Type:: Straight CatheterPerformed By: #### ADDONUAPLUS, URDS ####[address] [address] USAGlucose Ql (U)250 mg/dLHighNoKettering Health Washington TownshipComment on above:Order Comment: Name Collection Type:: Straight CatheterPerformed By: #### ADDONUAPLUS, URDS ####[address] [address] USAHyaline Casts,Wqoft1-3Zkqwti4-3 [facility] - AndersonComment on above:Order Comment: Name Collection Type:: Straight CatheterResult Comment: PERFORMED BY:[address] [place], [place] [phone] MEDICAL ANDRE SINGER M.D.Performed By: #### CLAIRE, URDS ####[address] [address] USAKetones Ql (U)2+High NegativeOur Lady Of Mercy Hospital - AndersonComment on above:Order Comment: Name Collection Type:: Straight CatheterPerformed By: #### CLAIRE, URDS ####[address] [address] [place] Leukocyte esterase Test strip Ql (U)NegativeNormalNegSelect Medical TriHealth Rehabilitation HospitalComment on above:Order Comment: Name Collection Type:: Straight CatheterPerformed By: #### CLAIRE, URDS ####[address] [address] USANitrite,UrineNegativeNormalNegative [facility] - AndersonComment on above:Order Comment: Name Collection Type:: Straight CatheterPerformed By: #### CLAIRE, URDS ####[address] [address] USAOccult Blood,Urine TraceHighNegSelect Medical TriHealth Rehabilitation HospitalComment on above:Order Comment: Name Collection Type:: Straight CatheterResult Comment: PERFORMED BY:[address] [place], [place] [phone] MEDICAL ANDRE SINGER M.D.Performed By: #### CLAIRE, URDS ####[address] [address] USApH (U)8.0 [pH]Normal5.0-9.0[facility] - AndersonComment on above:Order Comment: Name Collection Type:: Straight CatheterPerformed By: #### CLAIRE, URDS ####[address] [address] USAProtein (U) [Mass/Vol]30 mg/dLHighNegativeOur Lady Of Mercy Hospital - AndersonComment on above:Order Comment: Name Collection Type:: Straight Catheter Performed By: #### CLAIRE, URDS ####[address] [place] [address] USARBC,Tsaob4-8Nscf6-4VrdzvdufsCleveland Clinic South Pointe HospitalComment on above:Order Comment: Name Collection Type:: Straight Catheter Performed By: #### CLAIRE, URDS ####[address] [address] USARenal Epithelial Cells,UrineNone SeenNormal0-1 [facility] - AndersonComtrinity health livonia on above:Order Comment: Name Collection Type:: Straight CatheterPerformed By: #### CLAIRE, URDS ####[address] [address] USASpecificy Wheeler,Urine1.926Nlpvkd2.001-1.030[facility] - AndersonComment on above:Order Comment: Name Collection Type:: Straight CatheterPerformed By: #### CLAIRE, URDS ####[address] [address] USASquamous Epithelial Cell,Rvtnp2-8Bcveuf7-3QdsjlfwowCleveland Clinic South Pointe HospitalComment on above:Order Comment: Name Collection Type:: Straight Catheter Performed By: #### CLAIRE URDS ####[address] [address] USAUrobilinogen,UrineNormalNormalNormalOur Lady Of Mercy Hospital - AndersonComment on above:Order Comment: Name Collection Type:: Straight CatheterPerformed By: #### CLAIRE, URDS ####[address] [address] USAWBC LM.HPF (Urine sed) [#/Area]0 /[HPF]Normal0-4FCleveland Clinic South Pointe HospitalComment on above:Order Comment: Name Collection Type:: Straight CatheterPerformed By: #### CALIRE, URDS ####[address] [place] [address] USADrug Screen,Urineon 76-62-1762Wsnmpuunemc Screen,UrineNegativeNormal NegativeOur Lady Of Mercy Hospital - AndersonComment on above:Performed By: #### CLAIRE, URDS ####[address] [address] USABarbiturate Screen,UrineNegativeNormalNegativeOur Lady Of Mercy Hospital - AndersonComment on above:Performed By: #### CLAIRE, URDS ####[address] [address] [place] Benzodiazepines Screen,UrineNegativeNormalNegativeOur Lady Of Mercy Hospital - AndersonComment on above:Performed By: #### CLAIRE, URDS ####[address] [address] USACannabinoid Screen,UrinePositiveHighNegativeOur Lady Of Mercy Hospital - AndersonComment on above:Result Comment: These are unconfirmed results and should not be used for legal purposes. Drug Cut-Off Concentration: AMPH 1000 ng/mL LUCIA 200 ng/mL SONDRA 200 ng/mL COCM 300 ng/mL OP 300 ng/mL PCP 25 ng/mL THC 20 ng/mLPERFORMED BY:[address] [place], [place] [phone] MEDICAL DIRECTORKIMBERLYN SINGER M.D.Performed By: #### CLAIRE, URDS ####[address] [address] [place] Cocaine Screen,UrineNegativeNormalNegativeOur [facility] Of [facility] Anderson Comment on above:Performed By: #### CLAIRE, URDS ####[address] [address] USAOpiate Screen,UrineNegative NormalNegativeOur Lady Of Mercy Hospital - AndersonComment on above:Performed By: #### CLAIRE, URDS ####[address] [address] USAPhencyclidine Screen,UrineNegativeNormalNegative [facility] - AndersonComment on above:Performed By: #### ADDONUAPLUS, URDS ####[facility] [facility] [place] [address] USAECG 12 lead ECGon 37-88-6521DWK 12 lead ECGNormalOur Lady Of Mercy Hospital - AndersonECG 12 lead ECGNormSelect Medical Specialty Hospital - CantonEosinophils Auto (Bld) [#/Vol]Ordered By: Tammy Smyth on 36-26-2228Iwpgkdetyiu (Bld) [#/Vol]0.0 10*3/uL0.0-0.45[facility] - AndersonEosinophils/100 WBC Auto (Bld)Ordered By: Tammy Smyth on 23-83-3790Thjxwjwlffy/100 WBC (Bld)0.0 %.[facility] Hospital - AndersonErythrocyte distribution width Auto (RBC) [Ratio]Ordered By: Tammy Smyth on 69-76-5762Wywmhkqmmnj distribution width (RBC) [Ratio]14.2 %11.9-15.3FCleveland Clinic South Pointe HospitalEstimated glomerular filtration rate (GFR) non- AmericanOrdered By: Tammy Smyth on 28-05-6080FZB/1.73 sq M.predicted among non-blacks MDRD (S/P/Bld) [Vol rate/Area]> 60 mL/MinOur Lady Of Mercy Hospital - AndersonEthanol [Mass/volume] in UrineOrdered By: Denice Buckner on 71-25-2149Ujdllyb (U) [Mass/Vol]See comment. [facility] - AndersonComment on above:Test not performed. Insufficient specimen to perform orcomplete analysis.contacted your facility on 65-28-0024Auhvkbg, Urineon 71-27-3780Dkepzwl, UrineNormal.[facility] - AndersonComment on above:Result Comment: Test not performed. Insufficient specimen to perform or complete analysis. contacted your facility on 87-96-6222CEHFRDATS BY:[facility] [place] [phone] MEDICAL DIRECTORKIMBERLYN SINGER M.D.Performed By: #### ETHANOL UR ####[facility] ,Globulin Calc (S) [Mass/Vol]Ordered By: Tammy Smyth on 73-07-3741Wznwljro (S) [Mass/Vol]3.0 g/dLOur Lady Of Mercy Hospital - AndersonGlucose Glucometer (BldC) [Mass/Vol]Ordered By: Barry Colby on 39-69-5776Wxahkrn [Mass/Vol]236 mg/dLOur Lady Of Mercy Hospital - AndersonComment on above:Random Glucose Reference Range is dependent on time and content of last meal. Glucose of more than 200 mg/dL in a nonstressed, ambulatory subject supports the diagnosis of Diabetes Mellitus.Glucose Poct Glucometerson 15-45-6335Fyuwvtf [Mass/Vol]236 mg/dLNormalOur Lady Of Mercy Hospital - AndersonComment on above:Result Comment: Random Glucose Reference Range is dependent on time and content of last meal. Glucose of more than 200 mg/dL in a nonstressed, ambulatory subject supports the diagnosis of Diabetes Estephania litus.PERFORMED BY:[address] [place], [place] [phone] MEDICAL DIRECTORKIMBERLYN SINGER M.D.Performed By: #### GLULS ####Point of Care testing,Hematocrit Auto (Bld) [Volume fraction]Ordered By: Tammy Smyth on 88-10-6312Xoviaqttan (Bld) [Volume fraction]28.4 % 34.0-46.4FCleveland Clinic South Pointe HospitalHemoglobin [Mass/volume] in Blood Ordered By: Tammy Smyth on 76-78-0435Ofsmhvwmzk (Bld) [Mass/Vol]9.7 g/dL 11.8-15.4FCleveland Clinic South Pointe HospitalHypochromia LM Ql (Bld)Ordered By: Tammy Smyth on 45-67-7779Dfdjstjmiil Ql (Bld)ModerateOur Lady Of Mercy Hospital - AndersonKetones Auto test strip (U) [Mass/Vol]Ordered By: Tammy Smyth on 44-35-4608Rnfveam (U) [Mass/Vol]2+NegativeOur Lady Of Mercy Hospital - Anderson Laboratory - Chemistry and Chemistry - challengeOrdered By: Barry Colby on 65-09-8601JT2 [Moles/Vol]22.4 mmol/L23.0-27.0[facility] HCO3 (Bld) [Moles/Vol]21.5 mmol/L23.0-29.0[facility] Laboratory - Chemistry and Chemistry - challengeOrdered By: Tammy Smyth on 59-06-6755Mfyullrja [Mass/Vol]0.8 mg/dL1.6-2.6FCleveland Clinic South Pointe Hospital Comment on above:Results calledat 1444 on 03/08/22Laboratory - Coagulation Ordered By: Tammy Smyth on 05-12-1546CQ Coag (PPP) [Time]16.9 s9.0-12.9 [facility] - AndersonLaboratory - Drug toxicologyOrdered By: Tammy Smyth on 68-18-2780Qrgyvyk Ql (U)NegativeNegativeOur Lady Of Mercy Hospital - AndersonLaboratory - UrinalysisOrdered By: Tammy Smyth on 03-08-2022 Hyaline casts LM Ql (Urine sed)0-8 [LPF]0-8[facility] Lactic Acidon 07-88-2728Xjsuzgu [Moles/Vol]1.6 mmol/LNormal0.5-2.2FCleveland Clinic South Pointe HospitalComment on above:Order Comment: TOO OLD TO USE NOW PER CHEMResult Comment: PERFORMED BY:[facility] [place], [place] [phone] MEDICAL DIRECTORKIMBERLYN SINGER M.D. Performed By: #### CUBLD, LACTIC ####[facility] [place] [address] [place] [address] USALeukocytes [#/volume] corrected for nucleated erythrocytes in Blood by Automated counOrdered By: Tammy Smyth on 03-08-2022 WBC corrected for nucl RBC Auto (Bld) [#/Vol]12.8 10*3/uL3.8-11.6FCleveland Clinic South Pointe HospitalLymphocytes Auto (Bld) [#/Vol]Ordered By: Tammy Smyth on 75-76-9973Rcfrxooeosr (Bld) [#/Vol]1.2 10*3/uL1.00-4.8[facility] - AndersonLymphocytes/100 WBC Auto (Bld)Ordered By: Tammy Smyth on 60-34-3536Epbsnaoszjk/100 WBC (Bld)9.5 %.[facility] Auto (RBC) [Entitic mass]Ordered By: Tammy Smyth on 00-09-7652VTV (RBC) [Entitic mass]31.6 pg24.7-34.3FGuernsey Memorial HospitalHC Auto (RBC) [Mass/Vol]Ordered By: Tammy Smyth on 64-79-0883JMAL (RBC) [Mass/Vol]34.1 g/dL32.0-35.0[facility] - AndersonMCV Auto (RBC) [Entitic vol] Ordered By: Tammy Smyth on 09-81-9093BWY (RBC) [Entitic vol]92.7 qJ45-662 [facility] - AndersonMagnesiumon 25-61-1285Xnwbhmtkl [Mass/Vol]0.8 mg/dLOff scale low1.6-2.6FCleveland Clinic South Pointe HospitalComment on above: Result Comment: Results called at 1444 on 03/08/22PERFORMED BY:[facility] [place] [address] [place], [place] [phone] MEDICAL DIRECTORKIMBERLYN SINGER M.D.Performed By: #### MG ####[facility] [place] [address] USAMonocyte %Ordered By: Tammy Smyth on 83-40-2566Qonehoij %< 9 umol/L83-99StlnufkmyOur Lady Of Mercy Hospital - Anderson Monocyte distribution width [Entitic volume] in Blood by AutomatedOrdered By: Tammy Smyth on 34-29-0864Fuaolejp distribution width Auto (Bld) [Entitic vol]22.30 %0.00-20.00[facility] - AndersonComment on above:For adults in ED, MDW > 20.0 may be associated with a higher risk of sepsis during the first 12 hrs of hospital admissionMonocytes Auto (Bld) [#/Vol]Ordered By: Tammy Smyth on 78-86-0970Cazbfztbe (Bld) [#/Vol]1.7 10*3/uL0.0-0.8[facility] - AndersonMonocytes/100 WBC Auto (Bld)Ordered By: Tammy Smyth on 31-68-4462Qbjdxrxih/100 WBC (Bld)13.4 %.[facility] Neutrophils Auto (Bld) [#/Vol]Ordered By: Tammy Smyth on 03-08-2022 Neutrophils (Bld) [#/Vol]9.8 10*3/uL1.8-7.7FC[facility] Po[facility] Hospital Neutrophils/100 WBC Auto (Bld)Ordered By: Tammy Smyth on 03-08-2022 Neutrophils/100 WBC (Bld)77.0 %.[facility] - AndersonNitrite Test strip Ql (U)Ordered By: Tammy Smyth on 90-39-6365Khnzuov Ql (U)Negative NegativeOur Lady Of Mercy Hospital - AndersonNo Panel InformationOrdered By: Barry Colby on 90-00-0482Hcdzbcok Blood Base Excess-1.4 mmol/L-3.0-3.0 [facility] - AndersonArterial Blood Oxygen Content3.3 mmol/L6.6-9.7 [facility] - AndersonArterial Blood Oxygen Iulowvuobc50.4 % 95.0-100.0[facility] - AndersonArterial Blood Partial Pressure CO2 29.2 mm[Hg]35.0-45.0[facility] - AndersonArterial Blood Partial Pressure O230.3 mm[Hg]80.0-100.0[facility] - AndersonArterial Blood pH7.487.35-7.45[facility] - AndersonBlood Gas Critical ValueSee commentOur Lady Of Mercy Hospital - AndersonComment on above:Critical Value called on: 03/08/2022 at 15:52Blood Gas Sample SiteVenousOur Lady Of Mercy Hospital - AndersonFiO221 %[facility] - AndersonNo Panel InformationOrdered By: Tammy Smyth on 18-76-3956Chnkqvhzo GFR ()> 60 mL/Min [facility] - AndersonComment on above:GFR estimated reference range: According to KDOQI guidelines, <60 ml/min/1.73m2 is sufficient todiagnose a patient with chronic kidney disease.Pharmacy Creatinine Clearance (Chem82.80 [facility] - AndersonNucleated erythrocytes [Presence] in Blood by Automated countOrdered By: Tammy Smyth on 32-60-5706Aikcmtvqo RBC Auto Ql (Bld)0.0 /100{WBC}0-0.5FCleveland Clinic South Pointe HospitalPartial Thromboplastin Timeon 80-33-8742nKGO Coag (Bld) [Time]31.5 rRohtrd40.1-36.5FCleveland Clinic South Pointe HospitalComment on above:Result Comment: PERFORMED BY:[place] [address] [address] [place], [place] [phone] MEDICAL DIRECTORKIMBERLYN SINGER M.D.Performed By: #### HS TROP, PT, CK, CKMB, PTT, CMP, SCAN CBC ####[facility] Q[address] [place] [address] [facility] Phencyclidine Screen Ql (U)Ordered By: Tammy Smyth on 03-08-2022 Phencyclidine Ql (U)NegativeNegativeOur Lady Of Mercy Hospital - AndersonPhosphorus on 47-48-8157Lzexheopb [Mass/Vol]1.7 mg/dLLow2.5-4.6FCleveland Clinic South Pointe HospitalComment on above:Order Comment: Comment add onResult Comment: PERFORMED BY:[place] [address] [place], [place] [phone] MEDICAL DIRECTORKIMBERLYN SINGER M.D.Performed By: #### PHOS ####[address] [address] [facility] Platelet adequacy [Presence] in Blood by Light microscopyOrdered By: Tammy Smyth on 72-97-0750Wqyxhvfpj LM Ql (Bld)NormalNormalOur Lady Of Mercy Hospital - AndersonPlatelet mean volume Auto (Bld) [Entitic vol]Ordered By: Tammy Smyth on 71-57-5974Rtjwvyiz mean volume (Bld) [Entitic vol]8.8 fL6.3-10.7FCleveland Clinic South Pointe HospitalPlatelet morphology finding [Identifier] in BloodOrdered By: Tammy Smyth on 34-95-3315Dekznsud morphology finding Nom (Bld)Normal NormalOur Lady Of Mercy Hospital - AndersonPlatelet poor plasma international normalized ratio (INR) by coagulation assay (relatOrdered By: Tammy Smyth on 36-64-5066FAY Coag (PPP) [Relative time]1.5 {INR}[facility] - AndersonComment on above:INR Therapeutic Range A) Pre- and Peroperative OAT started two weeks before surgery. NOT HIP SURGERY: 1.5 - 2.5 HIP SURGERY: 2 - 3B) Primary and secondary prevention of venous THROMBOSIS: 2 - 3C) Active venous thrombosis, pulmonary embolismand prevention of recurrent venous thrombosis: 2 - 3D) Prevention of arterial thromboembolismincluding patients with mechanical heart valves: 3 - 4.5Platelets Auto (Bld) [#/Vol]Ordered By: Tammy Smyth on 07-83-8033Owizhnyor (Bld) [#/Vol]348 10*3/xM062-539HcctlkfxyOur Lady Of Mercy Hospital - AndersonPoikilocytosis [Presence] in Blood by Light microscopyOrdered By: Tammy Smyth on 45-65-4294Mjmkkiyiwtbxpc LM Ql (Bld)SlightOur Lady Of Mercy Hospital - AndersonProtein Auto test strip (U) [Mass/Vol]Ordered By: Tammy Smyth on 45-78-6127Zrjtjnd (U) [Mass/Vol]30 mg/dLNegSelect Medical TriHealth Rehabilitation HospitalProtein [Mass/volume] in Serum or PlasmaOrdered By: Tammy Hunterwyharoon on 89-37-0434Eydggov [Mass/Vol]5.6 g/dL6.1-7.9[facility] Prothrombin Time INRon 54-63-1839TVQ Coag (PPP) [Relative time]1.5 {INR}Normal [facility] - AndersonComment on above:Result Comment: INR Therapeutic Range A) Pre- and [...] patients with mechanical heart valves: 3 - 4.5Performed By: #### HS TROP, PT, CK, CKMB, PTT, CMP, SCAN CBC ####[address] [address] USAPT Coag (PPP) [Time] 16.9 sHigh9.0-12.9[facility] Hospital - AndersonComment on above:Performed By: #### HS TROP, PT, CK, CKMB, PTT, CMP, SCAN CBC ####[address] [address] USARBC Auto (Bld) [#/Vol]Ordered By: Tammy Smyth on 70-12-6149GHO (Bld) [#/Vol]3.06 10*6/uL3.60-5.00[facility] - AndersonRBC morphologyOrdered By: Tammy Smyth on 03-08-2022 RBC morphology finding Nom (Bld)N/[facility] NorthRed blood cell stomatocyte detectionOrdered By: Tammy Smyth on 23-22-8653Hgbmygltramj LM Ql (Bld)[facility] Hospitalcan and CBCon 03-08-2022 Anisocytosis Ql (Bld)[facility] Memorial HospitalComment on above:Performed By: #### HS TROP, PT, CK, CKMB, PTT, CMP, SCAN CBC ####[address] [address] USABasophils (Bld) [#/Vol]0.0 10*3/uLNormal0.0-0.2FCleveland Clinic South Pointe HospitalComment on above:Performed By: #### HS TROP, PT, CK, CKMB, PTT, CMP, SCAN CBC ####[address] [address] USABasophils/100 WBC (Bld)0.1 %Normal.[facility] Hospital - AndersonComment on above:Performed By: #### HS TROP, PT, CK, CKMB, PTT, CMP, SCAN CBC ####[address] [address] USAEosinophils (Bld) [#/Vol]0.0 10*3/uL Normal0.0-0.45[facility] - AndersonComment on above:Performed By: #### HS TROP, PT, CK, CKMB, PTT, CMP, SCAN CBC ####[place] [address] USAEosinophils/100 WBC (Bld)0.0 %Normal. [facility] Hospital - AndersonComment on above:Performed By: #### HS TROP, PT, CK, CKMB, PTT, CMP, SCAN CBC ####[place] [address] USAErythrocyte distribution width (RBC) [Ratio]14.2 % Uwdsmb74.9-15.3FCleveland Clinic South Pointe HospitalComment on above:Performed By: #### HS TROP, PT, CK, CKMB, PTT, CMP, SCAN CBC ####[place] [address] USAHematocrit (Bld) [Volume fraction]28.4 %Low34.0-46.4FCleveland Clinic South Pointe HospitalComment on above:Performed By: #### HS TROP, PT, CK, CKMB, PTT, CMP, SCAN CBC ####[place] [address] USAHemoglobin (Bld) [Mass/Vol]9.7 g/dLLow 11.8-15.4FCleveland Clinic South Pointe HospitalComment on above:Performed By: #### HS TROP, PT, CK, CKMB, PTT, CMP, SCAN CBC ####[place] [address] USAHypochromasiaModerateNormalOur Lady Of Mercy Hospital - AndersonComment on above:Performed By: #### HS TROP, PT, CK, CKMB, PTT, CMP, SCAN CBC ####[place] [address] USALymphocytes (Bld) [#/Vol]1.2 10*3/uLNormal1.00-4.8[facility] - AndersonComment on above:Performed By: #### HS TROP, PT, CK, CKMB, PTT, CMP, SCAN CBC ####[address] [address] USALymphocytes/100 WBC (Bld)9.5 %Normal.[facility] Comment on above:Performed By: #### HS TROP, PT, CK, CKMB, PTT, CMP, SCAN CBC ####[address] [address] [facility] (RBC) [Entitic mass]31.6 ylPqcpul94.7-34.3FC[facility] Hospital Comment on above:Performed By: #### HS TROP, PT, CK, CKMB, PTT, CMP, SCAN CBC ####[address] [address] [facility] CITYV (RBC) [Entitic vol]92.7 jMHshqqp38-465NuqxzardxOur Lady Of Mercy Hospital - AndersonComment on above:Performed By: #### HS TROP, PT, CK, CKMB, PTT, CMP, SCAN CBC ####[place] [address] [facility]ITALMean Corpuscular HGB Conc34.1 g/lIXodejc60.0-35.0[facility] Comment on above:Performed By: #### HS TROP, PT, CK, CKMB, PTT, CMP, SCAN CBC ####[address] [address] [place] Monocytes (Bld) [#/Vol]1.7 10*3/uLHigh0.0-0.8[facility] Comment on above:Performed By: #### HS TROP, PT, CK, CKMB, PTT, CMP, SCAN CBC ####[place] [address] [place] Monocytes/100 WBC (Bld)22.30 %High0.00-20.00[facility] Comment on above:Result Comment: For adults in ED, MDW > 20.0 may be associated with a higher risk of sepsis during the first 12 hrs of hospital admission Performed By: #### HS TROP, PT, CK, CKMB, PTT, CMP, SCAN CBC ####[address] [address] USAMonocytes/100 WBC (Bld)13.4 %Normal.[facility] - AndersonComment on above:Performed By: #### HS TROP, PT, CK, CKMB, PTT, CMP, SCAN CBC ####[address] [address] USANeutrophils (Bld) [#/Vol]9.8 10*3/uLHigh1.8-7.7FCleveland Clinic South Pointe HospitalComment on above:Performed By: #### HS TROP, PT, CK, CKMB, PTT, CMP, SCAN CBC ####[place] [address] USANeutrophils/100 WBC (Bld)77.0 % Normal.[facility] - AndersonComment on above:Performed By: #### HS TROP, PT, CK, CKMB, PTT, CMP, SCAN CBC ####[address] [address] USANRBC%0.0 /100{WBC}Normal0-0.5FCleveland Clinic South Pointe HospitalComtrinity health [place] on above:Performed By: #### HS TROP, PT, CK, CKMB, PTT, CMP, SCAN CBC ####[address] [address] USAPlatelet EstimateNormalNormalNoKettering Health Washington TownshipComtrinity health livonia on above:Performed By: #### HS TROP, PT, CK, CKMB, PTT, CMP, SCAN CBC ####[address] [address] USAPlatelet mean volume (Bld) [Entitic vol]8.8 fLNormal 6.3-10.7FCleveland Clinic South Pointe HospitalComment on above:Performed By: #### HS TROP, PT, CK, CKMB, PTT, CMP, SCAN CBC ####[address] [address] USAPlatelet MorphologyNormalNormalNormSelect Medical Specialty Hospital - CantonComment on above:Result Comment: PERFORMED BY:[place] [address] [place], [place] [phone] MEDICAL DIRECTORKIMBERLYN SINGER M.D.Performed By: #### HS TROP, PT, CK, CKMB, PTT, CMP, SCAN CBC ####[address] [address] USAPlatelets (Bld) [#/Vol]348 10*3/tZNsvvoy685-341WwvaruzznOur Lady Of Mercy Hospital - AndersonComment on above:Performed By: #### HS TROP, PT, CK, CKMB, PTT, CMP, SCAN CBC ####[address] [address] USAPoikilocytosisSCincinnati VA Medical CenterComment on above:Performed By: #### HS TROP, PT, CK, CKMB, PTT, CMP, SCAN CBC ####[address] [address] USARBC (Bld) [#/Vol]3.06 10*6/uLLow3.60-5.00[facility] - AndersonComment on above:Performed By: #### HS TROP, PT, CK, CKMB, PTT, CMP, SCAN CBC ####[address] [address] USAStomatocytesSlightOhio Valley HospitalComment on above:Performed By: #### HS TROP, PT, CK, CKMB, PTT, CMP, SCAN CBC ####[address] [address] USAWBC (Bld) [#/Vol]12.8 10*3/uLHigh3.8-11.6FCleveland Clinic South Pointe HospitalComment on above:Performed By: #### HS TROP, PT, CK, CKMB, PTT, CMP, SCAN CBC ####[address] [address] USASerum or plasma alanine aminotransferase measurement without P-5'-P (enzymatic activiOrdered By: Tammy Smyth on 42-76-1017WQF No additional P-5'-P [Catalytic activity/Vol]13 U/J91-33PlgbnayfxSamaritan North Health Centererum or plasma albumin/globulin mass ratioOrdered By: Tammy Smyth on 46-82-2379Bsqopdz/Globulin [Mass ratio]0.9 {ratio}[facility] Health Centererum or plasma alkaline phosphatase measurement (enzymatic activity/volume)Ordered By: Tammy Smyth on 50-08-8258FHZ [Catalytic activity/Vol]132 U/F55-29UtpiuqraeSamaritan North Health Centererum or plasma anion gap determinationOrdered By: Tammy Smyth on 26-60-4054Zmmbx gap [Moles/Vol] 5.7 mmol/L6.0-15.0[facility] Health Centererum or plasma aspartate aminotransferase measurement (enzymatic activity/volume)Ordered By: Tammy Smyth on 90-94-9320VLB [Catalytic activity/Vol]17 U/B38-02HsqhomplgSamaritan North Health Centererum or plasma calcium measurement (mass/volume)Ordered By: Tammy Smyth on 45-44-1267Fjlramr [Mass/Vol]7.0 mg/dL8.2-10.2FMary Rutan Hospitalerum or plasma chloride measurement (moles/volume) Ordered By: Tammy Smyth on 40-73-8392Elegemlt [Moles/Vol]103 mmol/L95-114 [facility] Centererum or plasma creatine kinase MB (CKMB)/total creatine kinase (CK) ratio by calculaOrdered By: Tammy Smyth on 03-08-2022 CK.MB Calc [Catalytic fraction]2.8 %0.00-2.50[facility] Serum or plasma creatine kinase MB measurement (mass/volume)Ordered By: Tammy Smyth on 57-47-0944DD.MB [Mass/Vol]1.3 ng/mL0.6-6.3FMary Rutan Hospitalerum or plasma glucose measurement (mass/volume)Ordered By: Tammy Smyth on 68-91-5317Rndazvy [Mass/Vol]202 mg/vI13-384YonmufjsuOur Lady Of Mercy Hospital - AndersonComment on above:ADA recommended reference rangeRandom Glucose Reference Range is dependent on time and content of last meal. Glucose of more than 200 mg/dL in a nonstressed, ambulatory subject supports the diagnosisof Diabetes Mellitus.Serum or plasma potassium measurement (moles/volume)Ordered By: [facility] on 44-95-4651Qcmjilpzw [Moles/Vol]3.0 mmol/L3.5-5.1FMary Rutan Hospitalerum or plasma sodium measurement (moles/volume)Ordered By: [facility] on 42-72-5533Angoga [Moles/Vol]126 mmol/A322-752VvjsdbzpvSamaritan North Health Centererum or plasma total bilirubin measurement (mass/volume) Ordered By: [facility] on 80-10-2991Uvrzxtxoa [Mass/Vol]1.1 mg/dL0.3-1.2 [facility] Centererum or plasma total carbon dioxide measurement (moles/volume)Ordered By: [facility] on 00-68-1058UM2 [Moles/Vol]20.3 mmol/L22.0-30.0[facility] Health Centererum or plasma urea nitrogen measurement (mass/volume)Ordered By: [facility] on 03-08-2022 Urea nitrogen [Mass/Vol]8 mg/dL9-23Samaritan North Health Centerpecific gravity Auto test strip (U) [Rel density]Ordered By: [facility] on 62-80-3066Afxnlfcb gravity (U) [Rel density]1.0151.001-1.030Sam[facility]itan North Health Centerquamous epithelial cells detection in urine sediment by light microscopyOrdered By: [facility] on 77-80-3951Wdhagnchfm cells.squamous LM Ql (Urine sed)1-2 [HPF]0-2FCleveland Clinic South Pointe HospitalTroponin I High Sensitivityon 78-89-6974Vljombbe I High Ltovxduadpl11 pg/mLHigh0-15[facility] - AndersonComment on above:Result Comment: PERFORMED BY:[facility] [place], [place] [phone] MEDICAL DIRECTORKIMBERLYN SINGER M.D.Performed By: #### HS TROP, PT, CK, CKMB, PTT, CMP, SCAN CBC ####[facility] [facility]iv[facility] [place] [address] USATroponin I.cardiac [Mass/volume] in Serum or Plasma by High sensitivity methodOrdered By: Tammy Smyth on 16-59-7739Nzbymlby I.cardiac High sensitivity method [Mass/Vol]33 pg/mL0-15[facility] - AndersonUrine bacteria detection by automated methodOrdered By: Tammy Smyth on 03-08-2022 Bacteria Auto Ql (U)None seenNone SeenOur Lady Of Mercy Hospital - AndersonUrine clarity by refractometry automatedOrdered By: Tammy Smyth on 03-08-2022 Clarity Refractometry automated (U)ClearClearFCleveland Clinic South Pointe Hospital Urine cocaine detectionOrdered By: Tammy Smyth on 86-84-2725Ivvdezj Ql (U) NegativeNegSelect Medical TriHealth Rehabilitation HospitalUrine glucose measurement by automated test strip (mass/volume)Ordered By: Tammy Smyth on 03-08-2022 Glucose Auto test strip (U) [Mass/Vol]250 mg/dLNormalOur Lady Of Mercy Hospital - AndersonUrine hemoglobin detection by automated test stripOrdered By: Tammy Smyth on 15-63-0813Ermvzlobmk Auto test strip Ql (U)TraceNegSelect Medical TriHealth Rehabilitation HospitalUrine lactic acid measurementOrdered By: Tammy Smyth on 49-08-0779Qzmeoot (U) [Moles/Vol]1.6 mmol/L0.5-2.2FCleveland Clinic South Pointe HospitalUrine leukocyte esterase detection by automated test stripOrdered By: Tammy Smyth on 52-56-5208Wfkmaeoxy esterase Auto test strip Ql (U)Negative NegativeOur Lady Of Mercy Hospital - AndersonUrine sediment renal epithelial cell count by microscopy (number/high power field)Ordered By: Tammy Smyth on 08-67-3078Apnwsjdjeb cells.renal LM.HPF (Urine sed) [#/Area]None seen [HPF]0-1 [facility] - AndersonUrobilinogen Auto test strip (U) [Mass/Vol] Ordered By: Tammy Smyth on 42-67-9349Ztoyayznschp (U) [Mass/Vol]Normal mg/dL NormalOur Lady Of Mercy Hospital - AndersonWBC Auto (Bld) [#/Vol]Ordered By: Tammy Smyth on 73-45-8999DQE (Bld) [#/Vol]12.8 10*3/uL3.8-11.6FCleveland Clinic South Pointe HospitalXR chest 1V portableon 38-88-2703TY chest 1V portable NormalOur Lady Of Mercy Hospital - AndersonpH Auto test strip (U)Ordered By: Tammy Smyth on 65-34-3815jD (U)8.0 [pH]5.0-9.0[facility] - AndersonBasic Metabolic Panelon 62-63-6991Tleim gap [Moles/Vol]Not performedNormal 6.0-15.0[facility] - AndersonComment on above:Performed By: #### BMP ####[place] [address] [place] [address] [place] Calcium [Mass/Vol]8.2 mg/dLNormal8.2-10.2FC[facility] Comment on above:Performed By: #### BMP ####[address] [address] USAChloride [Moles/Vol]97 mmol/RJworjj91-582 [facility] - AndersonComment on above:Performed By: #### BMP ####[address] [address] USACO2 [Moles/Vol]24.4 mmol/FSwjdii96.0-30.0[facility] - AndersonComment on above:Performed By: #### BMP ####[place] [address] [place] [address] USACreatinine [Mass/Vol]0.76 mg/dLNormal0.44-1.03 [facility] - AndersonComment on above:Performed By: #### BMP ####[place] [address] [place] [address] [place] Creatinine Clr Calc Swowmaxx77.32NormalOur Lady Of Mercy Hospital - AndersonComment on above:Result Comment: PERFORMED BY:[address]ZSH[place], [place] [phone] MEDICAL DIRECTORKIMBERLYN SINGER M.D.Performed By: #### BMP ####[place] [address] [address] USAEstimated GFR ( Brenda> 60NormalOur Lady Of Mercy Hospital - AndersonComment on above:Result Comment: GFR estimated reference range: According to KDOQI guidelines, <60 ml/min/1.73m2 is sufficient to diagnose a patient with chronic kidney disease.Performed By: #### BMP ####[place] [address] [place] Estimated GFR (Non- Am> 60NormalOur Lady Of Mercy Hospital - AndersonComment on above:Performed By: #### BMP ####[address] [address] USAGlucose [Mass/Vol]134 mg/kGIent26-906IlzsgzehxOur Lady Of Mercy Hospital - AndersonComment on above:Result Comment: Random Glucose Reference Range is dependent on time and content of last meal. Glucose of more than 200 mg/dL in a nonstressed, ambulatory subject supports the diagnosis of Diabetes Mellitus. ADA recommended reference rangePerformed By: #### BMP ####[place] [address] USAPotassiumNormal 3.5-5.1FCleveland Clinic South Pointe HospitalComment on above:Result Comment: Specimen hemolyzed, redraw requestedPerformed By: #### BMP ####[place] [address] USASodium [Moles/Vol]131 mmol/AUus075-827ZmzacphhlOur Lady Of Mercy Hospital - AndersonComment on above:Performed By: #### BMP ####[place] [address] USAUrea nitrogen [Mass/Vol]7 mg/dLLow9-23[facility] Comment on above:Performed By: #### BMP ####[place] [address] USABasophils Auto (Bld) [#/Vol]Ordered By: Mike Brannon on 35-36-9753Iuwucqrkb (Bld) [#/Vol]0.1 10*3/uL0.0-0.2FCleveland Clinic South Pointe HospitalBasophils/100 WBC Auto (Bld)Ordered By: Mike Brannon on 98-23-1799Enqasfpfy/100 WBC (Bld)1.2 %.[facility] Complete Blood Count Auto Diffon 65-23-6563Vyuksmagu (Bld) [#/Vol]0.1 10*3/uL Normal0.0-0.2FCleveland Clinic South Pointe HospitalComment on above:Result Comment: PERFORMED BY:[address] [place], [place] [phone] MEDICAL DIRECTORKIMBERLYN SINGER M.D.Performed By: #### CBC ####[address] [address] [place] Basophils/100 WBC (Bld)1.2 %Normal.[facility] - AndersonComment on above:Performed By: #### CBC ####[address] [address] USAEosinophils (Bld) [#/Vol]0.0 10*3/uLNormal0.0-0.45 [facility] - AndersonComment on above:Performed By: #### CBC ####[address] [address] [place] Eosinophils/100 WBC (Bld)0.7 %Normal.[facility] - AndersonComment on above:Performed By: #### CBC ####[address] [address] USAErythrocyte distribution width (RBC) [Ratio]14.7 % Zuplsw62.9-15.3FCleveland Clinic South Pointe HospitalComment on above:Performed By: #### CBC ####[address] [address] USAHematocrit (Bld) [Volume fraction]32.1 %Low34.0-46.4FCleveland Clinic South Pointe HospitalComment on above:Performed By: #### CBC ####[address] [address] USAHemoglobin (Bld) [Mass/Vol] 10.8 g/dLLow11.8-15.4FCleveland Clinic South Pointe HospitalComment on above:Performed By: #### CBC ####[place] [address] [place] [address] USALymphocytes (Bld) [#/Vol]1.5 10*3/uLNormal1.00-4.8[facility] - AndersonComment on above:Performed By: #### CBC ####[address] [address] USALymphocytes/100 WBC (Bld)23.3 %Normal.[facility] - AndersonComment on above:Performed By: #### CBC ####[address] [address] [facility] (RBC) [Entitic mass]32.5 qrNhkbhl11.7-34.3FC[facility] Hospital Comment on above:Performed By: #### CBC ####[address] [address] [facility] CITYV (RBC) [Entitic vol]96.2 dMGizrvy57-451 [facility] - AndersonComment on above:Performed By: #### CBC ####[address] [address] USAMean Corpuscular HGB Conc33.7 g/lGCxqqug09.0-35.0[facility] Comment on above:Performed By: #### CBC ####[address] [address] USAMonocytes (Bld) [#/Vol]0.8 10*3/uLNormal 0.0-0.8[facility] - AndersonComment on above:Performed By: #### CBC ####[address] [address] [place] Monocytes/100 WBC (Bld)11.7 %Normal.[facility] - AndersonComment on above:Performed By: #### CBC ####[address] [address] USANeutrophils (Bld) [#/Vol]4.1 10*3/uLNormal1.8-7.7 [facility] - AndersonComment on above:Performed By: #### CBC ####[address] [address] [place] Neutrophils/100 WBC (Bld)63.1 %Normal.[facility] - AndersonComment on above:Performed By: #### CBC ####[address] [address] USANRBC%0.3 /100{WBC}Normal0-0.5FCleveland Clinic South Pointe HospitalComment on above:Performed By: #### CBC ####[address] [address] USAPlatelet mean volume (Bld) [Entitic vol]8.3 fLNormal6.3-10.7FCleveland Clinic South Pointe HospitalComment on above:Performed By: #### CBC ####[address] [address] USAPlatelets (Bld) [#/Vol]306 10*3/kLPhvtpa250-848 [facility] - AndersonComment on above:Performed By: #### CBC ####[address] [address] USARBC (Bld) [#/Vol]3.34 10*6/uLLow3.60-5.00[facility] - AndersonComment on above:Performed By: #### CBC ####[address] [address] USAWBC (Bld) [#/Vol]6.5 10*3/uLNormal3.8-11.6FCleveland Clinic South Pointe HospitalComment on above:Performed By: #### CBC ####[address] [address] USACreatinine and Glomerular filtration rate.predicted panel (S/P/Bld)Ordered By: NICHOLAS BLANC on 06-98-4663Qvnajzqkhm [Mass/Vol]0.76 mg/dL0.44-1.03[facility] - AndersonECG 12 lead ECGon 22-22-7620TBU 12 lead ECGNoKettering Health Washington TownshipEosinophils Auto (Bld) [#/Vol]Ordered By: Mike Brannon on 14-06-4254Ufgerivhchy (Bld) [#/Vol]0.0 10*3/uL0.0-0.45[facility] - AndersonEosinophils/100 WBC Auto (Bld)Ordered By: Mike Brannon on 03-06-2022 Eosinophils/100 WBC (Bld)0.7 %.[facility] - AndersonErythrocyte distribution width Auto (RBC) [Ratio]Ordered By: Mike Brannon on 03-06-2022 Erythrocyte distribution width (RBC) [Ratio]14.7 %11.9-15.3FCleveland Clinic South Pointe HospitalEstimated glomerular filtration rate (GFR) non- Ordered By: NICHOLAS BLANC on 85-84-5637DCG/1.73 sq M.predicted among non-blacks MDRD (S/P/Bld) [Vol rate/Area]> 60 mL/MinOur Lady Of Mercy Hospital - Anderson Glucose Glucometer (dC) [Mass/Vol]Ordered By: Asa Napoles on 03-06-2022 Glucose [Mass/Vol]119 mg/dLOur Lady Of Mercy Hospital - AndersonComment on above: Random Glucose Reference Range is dependent on time and content of last meal. Glucose of more than 200 mg/dL in a nonstressed, ambulatory subject supports the diagnosis of Diabetes Mellitus.Glucose Poct Glucometerson 13-25-7683Wzposuh [Mass/Vol]119 mg/dLMarietta Osteopathic ClinicComment on above: Result Comment: Random Glucose Reference Range is dependent on time and content of last meal. Glucose of more than 200 mg/dL in a nonstressed, ambulatory subject supports the diagnosis of Diabetes Mellitus.PERFORMED BY:[address] [address] [address] [place], [place] [phone] MEDICAL DIRECTORKIMBERLYN SINGER M.D.Performed By: #### GLULS ####Point of Care testing,Eirbbne4Vnu6: Cleaned MeterMarietta Osteopathic Clinic Comment on above:Result Comment: PERFORMED BY:[address] [address] [place], [place] [phone] MEDICAL DIRECTORKIMBERLYN SINGER M.D.Performed By: #### GLULS ####Point of Care testing, Glucose [Mass/Vol]129 mg/dLNormalOur Lady Of Mercy Hospital - AndersonComment on above:Result Comment: Random Glucose Reference Range is dependent on time and content of last meal. Glucose of more than 200 mg/dL in a nonstressed, ambulatory subject supports the diagnosis of Diabetes Mellitus.Performed By: #### GLULS ####Point of Care testing,Hematocrit Auto (Bld) [Volume fraction] Ordered By: Mike Brannon on 31-77-1026Qdbcaifwlk (Bld) [Volume fraction]32.1 %34.0-46.4FCleveland Clinic South Pointe HospitalHemoglobin [Mass/volume] in Blood Ordered By: Mike Brannon on 96-41-2632Osfxksgyzh (Bld) [Mass/Vol]10.8 g/dL 11.8-15.4FCleveland Clinic South Pointe HospitalLeukocytes [#/volume] corrected for nucleated erythrocytes in Blood by Automated counOrdered By: Mike Brannon on 99-72-5283UTB corrected for nucl RBC Auto (Bld) [#/Vol]6.5 10*3/uL3.8-11.6 [facility] - AndersonLymphocytes Auto (Bld) [#/Vol]Ordered By: Mike Brannon on 65-40-4963Kszijaoczwk (Bld) [#/Vol]1.5 10*3/uL1.00-4.8 [facility] - AndersonLymphocytes/100 WBC Auto (Bld)Ordered By: Mike Brannon on 01-66-5301Cfgtophkahu/100 WBC (Bld)23.3 %.[facility] Auto (RBC) [Entitic mass]Ordered By: Mike Brannon on 76-84-2205QWG (RBC) [Entitic mass]32.5 pg24.7-34.3FGuernsey Memorial HospitalHC Auto (RBC) [Mass/Vol]Ordered By: Mike Brannon on 55-58-2058SMSB (RBC) [Mass/Vol]33.7 g/dL32.0-35.0[facility] - AndersonMCV Auto (RBC) [Entitic vol]Ordered By: Mike Brannon on 57-71-4947DHW (RBC) [Entitic vol]96.2 pL64-358FssbdodpiOur Lady Of Mercy Hospital - AndersonMonocytes Auto (Bld) [#/Vol] Ordered By: Mike Brannon on 50-45-5825Tdxtorpee (Bld) [#/Vol]0.8 10*3/uL 0.0-0.8[facility] - AndersonMonocytes/100 WBC Auto (Bld)Ordered By: Mike Brannon on 20-90-7258Lqdkpcjil/100 WBC (Bld)11.7 %.[facility] - AndersonNeutrophils Auto (Bld) [#/Vol]Ordered By: Mike Brannon on 90-53-9706Wpeasteiacj (Bld) [#/Vol]4.1 10*3/uL1.8-7.7FCleveland Clinic South Pointe HospitalNeutrophils/100 WBC Auto (Bld)Ordered By: Mike Brannon on 03-06-2022 Neutrophils/100 WBC (Bld)63.1 %.[facility] - AndersonNo Panel InformationOrdered By: Asa Napoles on 43-89-1600Usriesw Glucose CommentGlu2: cleaned [facility] HospitalNo Panel InformationOrdered By: NICHOLAS BLANC on 38-55-0172Hmxncbght GFR ()> 60 mL/MinOur Lady Of Mercy Hospital - AndersonComment on above:GFR estimated reference range: According to KDOQI guidelines, <60 ml/min/1.73m2 is sufficient todiagnose a patient with chronic kidney disease.Pharmacy Creatinine Clearance (Chem83.32[facility] - AndersonNucleated erythrocytes [Presence] in Blood by Automated countOrdered By: Mike Brannon on 66-05-8998Irbakyjcq RBC Auto Ql (Bld)0.3 /100{WBC}0-0.5FCleveland Clinic South Pointe HospitalPlatelet mean volume Auto (Bld) [Entitic vol]Ordered By: Mike Brannon on 34-10-9780Wmeiaauj mean volume (Bld) [Entitic vol]8.3 fL6.3-10.7FCleveland Clinic South Pointe HospitalPlatelets Auto (Bld) [#/Vol]Ordered By: Mike Brannon on 98-32-0863Emdhkbsxa (Bld) [#/Vol]306 10*3/qA711-271DhjwlnhmuOur Lady Of Mercy Hospital - AndersonRBC Auto (Bld) [#/Vol]Ordered By: Mike Brannon on 58-90-7966OAX (Bld) [#/Vol]3.34 10*6/uL3.60-5.00[facility] - AndersonRedraw Potassiumon 03-23-7298Hlvyjofdc [Moles/Vol]4.0 mmol/LNormal3.5-5.1FCleveland Clinic South Pointe HospitalComment on above:Result Comment: PERFORMED BY:[facility] [place], [place] [phone] MEDICAL DIRECTORKIMBERLYN SINGER M.D.Performed By: #### REDRAW K ####[facility] [place] [address] USASerum or plasma anion gap determinationOrdered By: NICHOLAS BLANC on 84-39-0253Ktufd gap [Moles/Vol]TNPOur Lady Of Mercy Hospital - AndersonComment on above:Test not performedSerum or plasma calcium measurement (mass/volume)Ordered By: NICHOLAS BLANC on 23-54-0544Ewgpfab [Mass/Vol]8.2 mg/dL8.2-10.2FMary Rutan Hospitalerum or plasma chloride measurement (moles/volume) Ordered By: NICHOLAS BLANC on 01-38-9316Hinjkdxa [Moles/Vol]97 mmol/L95-114 [facility] Centererum or plasma glucose measurement (mass/volume)Ordered By: NICHOLAS BLANC on 59-54-0716Izdgbrv [Mass/Vol]134 mg/dL 70-100[facility] - AndersonComment on above:ADA recommended reference rangeRandom Glucose Reference Range is dependent on time and content of last meal. Glucose of more than 200 mg/dL in a nonstressed, ambulatory subject supports the diagnosisof Diabetes Mellitus.Serum or plasma potassium measurement (moles/volume)Ordered By: Ash Bernstein on 77-04-4565Figvxgcuh [Moles/Vol]4.0 mmol/L3.5-5.1FMary Rutan Hospitalerum or plasma sodium measurement (moles/volume)Ordered By: NICHOLAS BLANC on 00-71-8592Hnqiwx [Moles/Vol]131 mmol/Z436-465LimkaxcsySamaritan North Health Centererum or plasma total carbon dioxide measurement (moles/volume)Ordered By: NICHOLAS BLANC on 30-16-9323KK7 [Moles/Vol]24.4 mmol/L22.0-30.0[facility] Serum or plasma urea nitrogen measurement (mass/volume)Ordered By: NICHOLAS BLANC on 87-39-4015Xuzq nitrogen [Mass/Vol]7 mg/dL9-23[facility] - AndersonWBC Auto (Bld) [#/Vol]Ordered By: Mike Brannon on 84-38-9193AXB (Bld) [#/Vol]6.5 10*3/uL3.8-11.6FCleveland Clinic South Pointe HospitalXR shoulder LT min 2V*on 83-80-6372VV shoulder LT min 2V*NormalOur Lady Of Mercy Hospital - AndersonCBC AUTO DIFFon 09-52-9843VBEM #0.1 103/ulNormal0.0-0.1The [facility] HospitalComment on above:Performed By: #### BMP #### [facility] [address] [address] [address] Jordan Angelessophils/100 WBC (Bld)0.8 %Normal0.2-2.0The [facility] Comment on above:Performed By: #### BMP #### [facility] [address] [address] [address] Jordan Paige #0.1 103/ulNormal0.0-0.7The [facility] HospitalComment on above: Performed By: #### BMP #### [facility] [address] [address] [address] Jordan Velázquezosinophils/100 WBC (Bld)0.7 %Critically low0.9-7.0The [facility] HospitalComment on above:Performed By: #### BMP #### [facility] [address] [address] [address] Jordan Velázquezrythrocyte distribution width (RBC) [Ratio]14.3 %Ejhuuk11.0-15.0 [facility] HospitalComment on above:Performed By: #### BMP #### [facility] [address] [place] [address] Dr. Jordan BlackwellHematocrit (Bld) [Volume fraction]32.6 %Critically low36.0-48.0 [facility] HospitalComment on above:Performed By: #### BMP #### [facility] [address] [place] [address] Dr. Jordan BlackwellHemoglobin (Bld) [Mass/Vol]10.7 g/dLCritically low12.0-16.0[facility] HospitalComment on above:Performed By: #### BMP #### [facility] [address] [place] [address] Dr. Jordan BlackwellIG #0.10 10e3/ulCritically high0.00-0.03The [facility] Comment on above:Performed By: #### BMP #### [facility] [address] [place] [address] Dr. Jordan BlackwellIG %1.3 %Critically high0.0-0.5ThOhioHealth Dublin Methodist HospitalComment on above:Performed By: #### BMP #### [facility] [address] [place] [address] Dr. Jordan Jordan #1.2 103/ulNormal1.2-3.8The [facility] HospitalComment on above:Performed By: #### BMP #### [facility] [address] [place] [address] Dr. Jordan Hannamphocytes/100 WBC (Bld)16.4 %Critically low20.5-60.0[facility] HospitalComment on above:Performed By: #### BMP #### [facility] [address] [place] [address] Dr. Jordan GutierrezUAL DIFF REQNONormalThe [facility] HospitalComment on above: Performed By: #### BMP #### [facility] [address] [place] [address] Dr. Jordan Locke (RBC) [Entitic mass]31.8 yvWqmavj41.7-34.0The Miami HospitalComment on above:Performed By: #### BMP #### [facility] [address] [place] [address] Dr. Jordan Hughes (RBC) [Mass/Vol]32.8 g/vEPrvohp55.9-35.2The [facility] HospitalComment on above:Performed By: #### BMP #### [facility] [address] [place] [address] Dr. Jordan Hughes (RBC) [Entitic vol]96.7 wPIqljxh41.0-99.0The [facility] HospitalComment on above:Performed By: #### BMP #### [facility] [address] [place] [address] Dr. Jordan Bragg #0.8 103/ulNormal0.3-0.8The [facility] HospitalComment on above:Performed By: #### BMP #### [facility] [address] [place] [address] Dr. Jordan Prideocytes/100 WBC (Bld)10.6 %Normal1.7-12.0The [facility] Comment on above:Performed By: #### BMP #### [facility] [address] [place] [address] Dr. Jordan Mckeon #5.3 103/ulNormal1.4-6.5The [facility] HospitalComment on above:Performed By: #### BMP #### [facility] [address] [place] [address] Dr. Jordan Pittmanutrophils/100 WBC (Bld)70.2 %Rnfikg49.0-75.0The [facility] HospitalComment on above:Performed By: #### BMP #### [facility] [address] [place] [address] Dr. Jordan Garcialet mean volume (Bld) [Entitic vol]9.5 fLNormal9.5-13.5The [facility] HospitalComment on above:Performed By: #### BMP #### [facility] [address] [place] [address] Dr. Jordan BlackwellPLT342 103/blYbwlkt056-344Nms [facility] HospitalComment on above: Performed By: #### BMP #### [facility] [address] [place] [address] Dr. Jordan BlackwellRBC3.37 106/ulCritically low4.20-5.40The [facility] HospitalComment on above:Performed By: #### BMP #### [facility] [address] [place] [address] Dr. Jordan BlackwellWBC7.6 103/ulNormal4.0-11.0The [facility] HospitalComment on above: Performed By: #### BMP #### [facility] [address] [place] [address] Dr. Jordan BlackwellPROF CHEM 8 (BAS METB)on 41-93-2629Lnuhu gap [Moles/Vol]11.1 mmol/LNormalThe [facility] HospitalComment on above:Performed By: #### CBC #### [facility] [address] [place] [address] Dr. Jordan BlackwellCalcium [Mass/Vol]8.7 mg/dLNormal8.5-10.1The [facility] Comment on above:Performed By: #### CBC #### [facility] [address] [place] [address] Dr. Jordan BlackwellChloride [Moles/Vol]98 mmol/RAvtxyc50-654Ywc [facility] Comment on above:Performed By: #### CBC #### [facility] [address] [place] [address] Dr. Jordan BlackwellCO2 [Moles/Vol]28.1 mmol/UUneous91.0-32.0The [facility] Comment on above:Performed By: #### CBC #### [facility] [address] [place] [address] Dr. Jordan BlackwellCreatinine [Mass/Vol]0.73 mg/dLNormal0.55-1.02The [facility] HospitalComment on above:Performed By: #### CBC #### [facility] [address] [address] [address] Ortega ChangEGFR-AF GRENADIAN>60Normal>=60The [facility] HospitalComment on above:Performed By: #### CBC #### [facility] [address] [place] [address] Dr. Jordan VelázquezGFR-NON AF GRENADIAN>60Normal>=60The [facility] HospitalComment on above:Performed By: #### CBC #### [facility] [address] [address] [address] Jordan BlackwellGlucose [Mass/Vol]194 mg/dLCritically kdgo55-742Xjj [facility] HospitalComment on above:Performed By: #### CBC #### [facility] [address] [place] [address] Dr. Jordan BlackwellPotassium [Moles/Vol]5.2 mmol/LCritically high3.5-5.1[facility] HospitalComment on above:Performed By: #### CBC #### [facility] [address] [place] [address] Dr. Jordan BlackwellSodium [Moles/Vol]132 mmol/LCritically fcm351-607IvpLancaster Municipal HospitalComment on above:Performed By: #### CBC #### [facility] [address] [place] [address] Dr. Jordan BlackwellUrea nitrogen [Mass/Vol]6.0 mg/dLCritically low7.0-18.0The [facility] HospitalComment on above:Performed By: #### CBC #### [facility] [address] [place] [address] Dr. Jordan BlackwellUrea nitrogen/Creatinine [Mass ratio]8.2 mg/mgNoalThe [facility] HospitalComment on above:Performed By: #### CBC #### [facility] [address] [place] [address] Dr. Jordan BlackwellCOVID-19 Antigenon 54-45-4587CQGAR [facility]itrick HospitalComment on above:Performed By: #### INEZ, COVID-19 YASMINE ####[facility] [place] [address] [facility] COVID-19 SOFIAOrdered By: Asa Napoles on 56-25-5592RASI-CoV+SARS-CoV-2 (COVID- 19) Ag IA.rapid Ql (Resp)NegativeNegSelect Medical TriHealth Rehabilitation Hospital Comment on above:This is a duplicate Yasmine SARS Antigen (FREDERIC) result to be used for statistical tracking purpose only.No Panel InformationOrdered By: Asa Napoles on 91-29-6999UAUX Antigen (LFIA)[facility] CenterARS Antigen (LFIA)[facility] Centerofia Ag Negativeon 03-02-2022 Yasmine Ag NegativeNegativeNormalNegativeOur Lady Of Mercy Hospital - AndersonComment on above:Result Comment: This is a duplicate Yasmine SARS Antigen (FREDERIC) result to be used for statistical tracking purpose only.PERFORMED BY:[address] [place]ILYNJameyLUNA [place], [place] [phone] MEDICAL DIRECTORKIMBERLYN SINGER M.D.Performed By: #### SOFIANEG, COVID-19 YASMINE ####[facility] [place] [address] [facility] HOS[facility]ITALCB W MANUAL DIFFon 25-32-8412VTJSQLVZ LYMPH #NormalThe Miami HospitalComment on above:Performed By: #### URCX #### [facility] [address] [place] [address] Dr. Jordan BlackwellATYPICAL LYMPH %NormalThe [facility] HospitalComment on above: Performed By: #### URCX #### [facility] [address] [place] [address] Dr. Jordan Brooks #Normal0.0-0.3The [facility] HospitalComment on above: Performed By: #### URCX #### [facility] [address] [place] [address] Dr. Jordan Brooks %Normal0-5The [facility] HospitalComment on above:Performed By: #### URCX #### [facility] [address] [place] [address] Dr. Jordan Otoole #0.00 103/ulNormal0.00-0.10The [facility] HospitalComment on above:Performed By: #### URCX #### [facility] [address] [place] [address] Dr. Jordan Otoole %0.0 %Critically low0.2-2.0The [facility] HospitalComment on above:Performed By: #### URCX #### [facility] [address] [place] [address] Dr. Jordan BlackwellBLAST #NormalThe Miami HospitalComment on above:Performed By: #### URCX #### [facility] [address] [place] [address] Dr. Jordan BlackwellBLAST %NormalThe [facility] HospitalComment on above:Performed By: #### URCX #### [facility] [address] [place] [address] Dr. Jordan BlackwellCORRECTED WBCNormal4.0-11.0The [facility] HospitalComment on above: Performed By: #### URCX #### [facility] [address] [place] [address] Dr. Jordan Franco #0.11 103/ulNormal0.00-0.70The [facility] HospitalComtrinity health [place] on above:Performed By: #### URCX #### [facility] [address] [place] [address] Dr. Jordan Franco%1.0 %Normal0.9-7.0The [facility] HospitalComment on above: Performed By: #### URCX #### [facility] [address] [place] [address] Dr. Jordan BlackwellHCT31.5 %Critically low36.0-48.0The [facility] HospitalComment on above:Performed By: #### URCX #### [facility] [address] [place] [address] Dr. Jordan BlackwellHGB10.6 g/dlCritically low12.0-16.0The [facility] HospitalComment on above:Performed By: #### URCX #### [facility] [address] [address] [address] Jordan Bryan #2.62 103/ulNormal1.20-3.80The [facility] HospitalComment on above:Performed By: #### URCX #### [facility] [address] [place] [address] Dr. Jordan Bryan%23.0 %Btxcyn52.5-60.0The [facility] HospitalComment on above:Performed By: #### URCX #### [facility] [address] [place] [address] Dr. Jordan HughesH31.7 upEdhncw52.7-34.0The [facility] HospitalComment on above: Performed By: #### URCX #### [facility] [address] [place] [address] Dr. Jordan HughesHC33.7 g/raFcjqes26.9-35.2The [facility] HospitalComment on above:Performed By: #### URCX #### [facility] [address] [place] [address] Dr. Jordan HughesV94.3 vRNbwiop31.0-99.0The [facility] HospitalComtrinity health [facility] on above: Performed By: #### URCX #### [facility] [address] [place] [address] Dr. Jordan PaulOCYTE #NormalThe [facility] HospitalComtrinity health [place] on above: Performed By: #### URCX #### [facility] [address] [place] [address] Dr. Jordan PaulOCYTE %NormalThe [facility] HospitalComtrinity health [place] on above: Performed By: #### URCX #### [facility] [address] [place] [address] Dr. Jordan Biggs#0.68 103/ulNormal0.30-0.80The [facility] HospitalComment on above:Performed By: #### URCX #### [facility] [address] [place] [address] Dr. Jordan Biggs%6.0 %Normal1.7-12.0The [facility] HospitalComment on above: Performed By: #### URCX #### [facility] [address] [place] [address] Dr. Jordan FamV9.1 fLCritically low9.5-13.5The [facility] HospitalComment on above:Performed By: #### URCX #### [facility] [address] [place] [address] Dr. Jordan LanceOCYTE #NormalThe Miami HospitalComment on above:Performed By: #### URCX #### [facility] [address] [place] [address] Dr. Jordan LanceOCYTE %NormalThe [facility] HospitalComment on above:Performed By: #### URCX #### [facility] [address] [place] [address] Dr. Jordan BlackwellNRBCNormalThe [facility] HospitalComment on above:Performed By: #### URCX #### [facility] [address] [place] [address] Dr. Jordan BlackwellPLT334 103/nzPhlwrk727-994Zjn [facility] HospitalComment on above: Performed By: #### URCX #### [facility] [address] [place] [address] Dr. Jordan BlackwellRBC3.34 106/ulCritically low4.20-5.40The [facility] HospitalComment on above:Performed By: #### URCX #### [facility] [address] [place] [address] Dr. Jordan BlackwellRDW14.6 %Vqaish06.0-15.0The [facility] HospitalComment on above: Performed By: #### URCX #### [facility] [address] [place] [address] Dr. Jordan Vargas #7.98 103/ulCritically high1.40-6.50The [facility] on above:Performed By: #### URCX #### [facility] [address] [place] [address] Dr. Jordan Vargas %70.0 %Iufsxo89.0-75.0The [facility] HospitalComment on above: Performed By: #### URCX #### [facility] [address] [place] [address] Dr. Jordan WaggonerBC11.4 103/ulCritically high4.0-11.0The [facility] HospitalComment on above:Performed By: #### URCX #### [facility] [address] [place] [address] Dr. Jordan Hutchins 14(COMP METB)on 61-44-1593Ouwulvx [Mass/Vol]2.6 g/dL Critically low3.4-5.0The [facility] HospitalComment on above:Performed By: #### OSMO #### [facility] [address] [place] [address] Dr. Jordan BlackwellAlbumin/Globulin [Mass ratio]0.7 {ratio}NormalThe [facility] HospitalComment on above:Performed By: #### OSMO #### [facility] [address] [place] [address] Dr. Jordan Durham [Catalytic activity/Vol]113 U/IOlcwvl71-483Cxo [facility] HospitalComment on above:Performed By: #### OSMO #### [facility] [address] [place] [address] Dr. Jordan Berumen [Catalytic activity/Vol]18 U/SAubyjt84-40Xkp [facility] HospitalComment on above:Performed By: #### OSMO #### [facility] [address] [place] [address] Dr. Jordan Huertas gap [Moles/Vol]13.0 mmol/LNormalThe [facility] Comment on above:Performed By: #### OSMO #### [facility] [address] [place] [address] Dr. Jordan Moore [Catalytic activity/Vol]16 U/DNfgbdk63-76Byr [facility] HospitalComment on above:Performed By: #### OSMO #### [facility] [address] [place] [address] Dr. Jordan BlackwellBilirubin [Mass/Vol]0.6 mg/dLNormal0.2-1.0The [facility] Comment on above:Performed By: #### OSMO #### [facility] [address] [address] [address] Jordan BlackwellCalcium [Mass/Vol]8.0 mg/dLCritically low8.5-10.1The [facility] HospitalComment on above:Performed By: #### OSMO #### [facility] [address] [place] [address] Dr. Jordan BlackwellChloride [Moles/Vol]101 mmol/DJshziy57-580Pzc [facility] Comment on above:Performed By: #### OSMO #### [facility] [address] [place] [address] Dr. Jordan BlackwellCO2 [Moles/Vol]24.2 mmol/DPbgspu68.0-32.0The [facility] Comment on above:Performed By: #### OSMO #### [facility] [address] [place] [address] Dr. Jordan BlackwellCreatinine [Mass/Vol]0.84 mg/dLNormal0.55-1.02The [facility] HospitalComment on above:Performed By: #### OSMO #### [facility] [address] [place] [address] Dr. Jordan VelázquezGFR-AF GRENADIAN>60Normal>=60The [facility] HospitalComment on above:Performed By: #### OSMO #### [facility] [address] [place] [address] Dr. Jordan VelázquezGFR-NON AF GRENADIAN>60Normal>=60The [facility] HospitalComment on above:Performed By: #### OSMO #### [facility] [address] [place] [address] Dr. Jordan BlackwellGlobulin (S) [Mass/Vol]3.5 g/dLNormalThe [facility] HospitalComment on above:Performed By: #### OSMO #### [facility] [address] [place] [address] Dr. Jordan BlackwellGlucose [Mass/Vol]131 mg/dLCritically psff26-021Uln [facility] HospitalComment on above:Performed By: #### OSMO #### [facility] [address] [place] [address] Dr. Jordan BlackwellPotassium [Moles/Vol]4.2 mmol/LNormal3.5-5.1The [facility] Comment on above:Performed By: #### OSMO #### [facility] [address] [place] [address] Dr. Jordan BlackwellProtein [Mass/Vol]6.1 g/dLCritically low6.4-8.2The [facility] HospitalComment on above:Performed By: #### OSMO #### [facility] [address] [place] [address] Dr. Jordan BlackwellSodium [Moles/Vol]134 mmol/LCritically nkw125-190Qvz [facility] HospitalComment on above:Performed By: #### OSMO #### [facility] [address] [place] [address] Dr. Jordan BlackwellUrea nitrogen [Mass/Vol]7.0 mg/dLNormal7.0-18.0The [facility] HospitalComment on above:Performed By: #### OSMO #### [facility] [address] [place] [address] Dr. Jordan BlackwellUrea nitrogen/Creatinine [Mass ratio]8.3 mg/mgNormalThe [facility] HospitalComment on above:Performed By: #### OSMO #### [facility] [address] [place] [address] Dr. Jordan BlackwellCBC AUTO DIFFon [id number] #0.0 103/ulNormal0.0-0.1The [facility] HospitalComment on above:Performed By: #### UAMIC #### [facility] [address] [place] [address] Dr. Jordan BlackwellBasophils/100 WBC (Bld)0.2 %Normal0.2-2.0The [facility] Comment on above:Performed By: #### UAMIC #### [facility] [address] [address] [address] Jordan Paige #0.1 103/ulNormal0.0-0.7The [facility] HospitalComment on above: Performed By: #### UAMIC #### [facility] [address] [place] [address] Dr. Jordan Velázquezosinophils/100 WBC (Bld)1.2 %Normal0.9-7.0The [facility] Comment on above:Performed By: #### UAMIC #### [facility] [address] [place] [address] Dr. Jordan Velázquezrythrocyte distribution width (RBC) [Ratio]14.7 %Gqiflg75.0-15.0 [facility] HospitalComment on above:Performed By: #### UAMIC #### [facility] [address] [place] [address] Dr. Jordan BlackwellHematocrit (Bld) [Volume fraction]29.2 %Critically low36.0-48.0 [facility] HospitalComment on above:Performed By: #### UAMIC #### [facility] [address] [place] [address] Dr. Jordan BlackwellHemoglobin (Bld) [Mass/Vol]9.6 g/dLCritically low12.0-16.0[facility] HospitalComment on above:Performed By: #### UAMIC #### [facility] [address] [place] [address] Dr. Jordan Garza #1.13 10e3/ulCritically high0.00-0.03The [facility] Comment on above:Performed By: #### UAMIC #### [facility] [address] [place] [address] Dr. Jordan Garza %14.1 %Critically high0.0-0.5The [facility] HospitalComment on above:Performed By: #### UAMIC #### [facility] [address] [place] [address] Dr. Jordan Jordan #1.6 103/ulNormal1.2-3.8The [facility] HospitalComment on above:Performed By: #### UAMIC #### [facility] [address] [place] [address] Dr. Jordan Hannamphocytes/100 WBC (Bld)20.0 %Critically low20.5-60.0The [facility] HospitalComment on above:Performed By: #### UAMIC #### [facility] [address] [place] [address] Dr. Jordan Palacios DIFF REQNONormalThe [facility] HospitalComment on above: Performed By: #### UAMIC #### [facility] [address] [place] [address] Dr. Jordan Hughes (RBC) [Entitic mass]31.6 phFvpxdx62.7-34.0The [facility] HospitalComment on above:Performed By: #### UAMIC #### [facility] [address] [place] [address] Dr. Jordan Hughes (RBC) [Mass/Vol]32.9 g/oXLkukwt49.9-35.2The [facility] HospitalComment on above:Performed By: #### UAMIC #### [facility] [address] [place] [address] Dr. Jordan Valentino (RBC) [Entitic vol]96.1 rVIgrqlm30.0-99.0The [facility] HospitalComment on above:Performed By: #### UAMIC #### [facility] [address] [place] [address] Dr. Jordan Bragg #0.9 103/ulCritically high0.3-0.8ThOhio[facility] Comment on above:Performed By: #### UAMIC #### [facility] [address] [place] [address] Dr. Jordan Prideocytes/100 WBC (Bld)11.3 %Normal1.7-12.0[facility] Comment on above:Performed By: #### UAMIC #### [facility] [address] [place] [address] Dr. Yilan ChangNEUT #4.3 103/ulNormal1.4-6.5The [facility] HospitalComment on above:Performed By: #### UAMIC #### [facility] [address] [place] [address] Dr. Jordan Pittmanutrophils/100 WBC (Bld)53.2 %Idyafx50.0-75.0The [facility] HospitalComment on above:Performed By: #### UAMIC #### [facility] [address] [place] [address] Dr. Jordan Garcialet mean volume (Bld) [Entitic vol]9.3 fLCritically low 9.5-13.5The [facility] HospitalComment on above:Performed By: #### UAMIC #### [facility] [address] [place] [address] Dr. Jordan BlackwellPLT265 103/skGjuxjr234-995Ubx [facility] HospitalComment on above: Performed By: #### UAMIC #### [facility] [address] [place] [address] Dr. Jordan FlynnC3.04 106/ulCritically low4.20-5.40The [facility] HospitalComment on above:Performed By: #### UAMIC #### [facility] [address] [place] [address] Dr. Jordan BlackwellWBC8.0 103/ulNormal4.0-11.0The [facility] HospitalComment on above: Performed By: #### UAMIC #### [facility] [address] [place] [address] Dr. Jordan BlackwellPOINT OF CARE GLUCOSEon 44-86-5226Qmgkrcn [Mass/Vol]128 mg/dL Critically ppjz60-616Vcn [facility] HospitalComment on above:Performed By: #### URCX #### [facility] [address] [place] [address] Dr. Jordan Hutchins CHEM 8 (BAS METB)on 74-62-3378Zqmjm gap [Moles/Vol]12.0 mmol/LNormalThe [facility] HospitalComment on above:Performed By: #### PRBC #### [facility] [address] [address] [address] Jordan BlackwellCalcium [Mass/Vol]7.4 mg/dLCritically low8.5-10.1The [facility] Hospitalment on above:Performed By: #### PRBC #### [facility] [address] [address] [address] Jordan BlackwellChloride [Moles/Vol]102 mmol/HXpakts14-795Jgq [facility] Comment on above:Performed By: #### PRBC #### [facility] [address] [address] [address] Jordan BlackwellCO2 [Moles/Vol]24.1 mmol/BIkynbn50.0-32.0The [facility] Comment on above:Performed By: #### PRBC #### [facility] [address] [place] [address] Dr. Jordan BlackwellCreatinine [Mass/Vol]0.64 mg/dLNormal0.55-1.02The [facility] HospitalComment on above:Performed By: #### PRBC #### [facility] [address] [address] [address] Jordan VelázquezGFR-AF GRENADIAN>60Normal>=60The [facility] HospitalComment on above:Performed By: #### PRBC #### [facility] [address] [address] [address] Jordan VelázquezGFR-NON AF GRENADIAN>60Normal>=60The [facility] HospitalComment on above:Performed By: #### PRBC #### [facility] [address] [place] [address] Dr. Jordan BlackwellGlucose [Mass/Vol]126 mg/dLCritically apra74-678Dhm [facility] HospitalComment on above:Performed By: #### PRBC #### [facility] [address] [place] [address] Dr. Jordan BlackwellPotassium [Moles/Vol]4.1 mmol/LNormal3.5-5.1The [facility] Comment on above:Performed By: #### PRBC #### [facility] [address] [place] [address] Dr. Jordan Sinhadium [Moles/Vol]134 mmol/LCritically ulx093-668Qhg [facility] HospitalComment on above:Performed By: #### PRBC #### [facility] [address] [place] [address] Dr. Jordan Lopez nitrogen [Mass/Vol]8.0 mg/dLNormal7.0-18.0The [facility] HospitalComment on above:Performed By: #### PRBC #### [facility] [address] [place] [address] Dr. Jordan Lopez nitrogen/Creatinine [Mass ratio]12.5 mg/mgNormalThe [facility] HospitalComment on above:Performed By: #### PRBC #### [facility] [address] [place] [address] Dr. Jordan Maxwell W MANUAL DIFFon [id number] LYMPH #NormalThe [facility] HospitalComment on above:Performed By: #### PRBC #### [facility] [address] [place] [address] Dr. Jordan HogueYPICAL LYMPH %NormalThe [facility]Com[facility] on above: Performed By: #### PRBC #### [facility] [address] [place] [address] Dr. Jordan Brooks #0.0 103/ulNormal0.0-0.3The [facility] HospitalComment on above:Performed By: #### PRBC #### [facility] [address] [place] [address] Dr. Jordan Brooks %0 %Normal0-5The [facility] HospitalComment on above:Performed By: #### PRBC #### [facility] [address] [place] [address] Dr. Jordan Otoole #0.00 103/ulNormal0.00-0.10The [facility] HospitalComment on above:Performed By: #### PRBC #### [facility] [address] [place] [address] Dr. Jordan Otoole %0.0 %Critically low0.2-2.0The [facility] HospitalComment on above:Performed By: #### PRBC #### [facility] [address] [place] [address] Dr. Jordan Ge #NormalThe [facility] HospitalComment on above:Performed By: #### PRBC #### [facility] [address] [place] [address] Dr. Jordan Ge %NormalThe [facility] HospitalComment on above:Performed By: #### PRBC #### [facility] [address] [place] [address] Dr. Jordan BlackwellCORRECTED WBCNormal4.0-11.0The [facility] on above: Performed By: #### PRBC #### [facility] [address] [place] [address] Dr. Jordan Franco #0.00 103/ulNormal0.00-0.70The [facility]Com[facility] on above:Performed By: #### PRBC #### [facility] [address] [place] [address] Dr. Jordan Franco%0.0 %Critically low0.9-7.0The [facility] on above:Performed By: #### PRBC #### [facility] [address] [place] [address] Dr. Jordan BlackwellHCT27.2 %Critically low36.0-48.0The [facility] on above:Performed By: #### PRBC #### [facility] [address] [place] [address] Dr. Jordan BlackwellHGB9.3 g/dlCritically low12.0-16.0The [facility]Com[facility] [place] on above:Performed By: #### PRBC #### [facility] [address] [place] [address] Dr. Jordan Bryan #2.41 103/ulNormal1.20-3.80The [facility] HospitalComment on above:Performed By: #### PRBC #### [facility] [address] [place] [address] Dr. Jordan Bryan%34.0 %Alpxoe08.5-60.0The [facility] HospitalComment on above:Performed By: #### PRBC #### [facility] [address] [place] [address] Dr. Jordan HughesH32.3 qbJfzdpk78.7-34.0The [facility] HospitalComment on above: Performed By: #### PRBC #### [facility] [address] [place] [address] Dr. Jordan HughesHC34.2 g/ukBvmjju27.9-35.2The [facility] HospitalComment on above:Performed By: #### PRBC #### [facility] [address] [place] [address] Dr. Jordan HughesV94.4 wIQgzbxx67.0-99.0The [facility] HospitalComment on above: Performed By: #### PRBC #### [facility] [address] [place] [address] Dr. Jordan BhagatELOCYTE #NormalThe [facility] HospitalComment on above: Performed By: #### PRBC #### [facility] [address] [place] [address] Dr. Jordan BonillaAMYELOCYTE %NormalThe [facility]Com[facility] on above: Performed By: #### PRBC #### [facility] [address] [place] [address] Dr. Jordan Biggs#0.64 103/ulNormal0.30-0.80The [facility] HospitalComment on above:Performed By: #### PRBC #### [facility] [address] [place] [address] Dr. Jordan Biggs%9.0 %Normal1.7-12.0The [facility] HospitalComment on above: Performed By: #### PRBC #### [facility] [address] [place] [address] Dr. Jordan FamV9.4 fLCritically low9.5-13.5The [facility]Comment on above:Performed By: #### PRBC #### [facility] [address] [place] [address] Dr. Jordan LanceOCYTE #NormalThe [facility] HospitalComment on above:Performed By: #### PRBC #### [facility] [address] [place] [address] Dr. Jordan LanceOCYTE %NormalThe [facility] HospitalComment on above:Performed By: #### PRBC #### [facility] [address] [place] [address] Dr. Jordan BlackwellNRBCNormalThOhioHealth Dublin Methodist HospitalComment on above:Performed By: #### PRBC #### [facility] [address] [place] [address] Dr. Jordan GirardT244 103/agColmqb950-929Vjv [facility] HospitalComment on above: Performed By: #### PRBC #### [facility] [address] [place] [address] Dr. Jordan FlynnC2.88 106/ulCritically low4.20-5.40The [facility] HospitalComment on above:Performed By: #### PRBC #### [facility] [address] [place] [address] Dr. Jordan BlackwellRDW14.8 %Lnqrtp92.0-15.0The [facility] HospitalComment on above: Performed By: #### PRBC #### [facility] [address] [place] [address] Dr. Jordan Vargas #4.05 103/ulNormal1.40-6.50The [facility] HospitalComment on above:Performed By: #### PRBC #### [facility] [address] [place] [address] Dr. Jordan Vargas %57.0 %Lyfmce22.0-75.0The [facility] HospitalComment on above: Performed By: #### PRBC #### [facility] [address] [place] [address] Dr. Jordan WaggonerBC7.1 103/ulNormal4.0-11.0The [facility] HospitalComment on above: Performed By: #### PRBC #### [facility] [address] [place] [address] Dr. Jordan BlackwellPOINT OF CARE GLUCOSEon [id number] [Mass/Vol]106 mg/dL Bmwsvn64-722Ngd [facility] HospitalComment on above:Performed By: #### PRBC #### [facility] [address] [place] [address] Dr. Jordan BlackwellGlucose [Mass/Vol]112 mg/dLCritically zsou43-839Psl [facility] HospitalComment on above:Performed By: #### URCX #### [facility] [address] [place] [address] Dr. Jordan BlackwellGlucose [Mass/Vol]131 mg/dLCritically bhml04-342Moa [facility] HospitalComment on above:Performed By: #### CBC #### [facility] [address] [place] [address] Dr. Jordan BlackwellPROF CHEM 8 (BAS METB)on 35-29-8832Ogwca gap [Moles/Vol]9.7 mmol/LNormalLancaster Municipal HospitalComment on above:Performed By: #### PRBC #### [facility] [address] [place] [address] Dr. Jordan BlackwellCalcium [Mass/Vol]7.2 mg/dLCritically low8.5-10.1The [facility] HospitalComment on above:Performed By: #### PRBC #### [facility] [address] [place] [address] Dr. Jordan BlackwellChloride [Moles/Vol]102 mmol/PYkguou23-048Lnq [facility] Comment on above:Performed By: #### PRBC #### [facility] [address] [place] [address] Dr. Jordan BlackwellCO2 [Moles/Vol]24.1 mmol/EKhexwz08.0-32.0The [facility] Comment on above:Performed By: #### PRBC #### [facility] [address] [place] [address] Dr. Jordan BlackwellCreatinine [Mass/Vol]0.64 mg/dLNormal0.55-1.02The [facility] HospitalComment on above:Performed By: #### PRBC #### [facility] [address] [place] [address] Dr. Jordan VelázquezGFR-AF GRENADIAN>60Normal>=60The [facility] HospitalComment on above:Performed By: #### PRBC #### [facility] [address] [place] [address] Dr. Jordan VelázquezGFR-NON AF GRENADIAN>60Normal>=60The [facility] HospitalComment on above:Performed By: #### PRBC #### [facility] [address] [place] [address] Dr. Jordan BlackwellGlucose [Mass/Vol]96 mg/aVFyojco54-489Muv [facility] Comment on above:Performed By: #### PRBC #### [facility] [address] [place] [address] Dr. Jordan BlackwellPotassium [Moles/Vol]3.8 mmol/LNormal3.5-5.1[facility] Comment on above:Performed By: #### PRBC #### [facility] [address] [place] [address] Dr. Jordan BlackwellSodium [Moles/Vol]132 mmol/LCritically kqq392-453Kqp [facility] HospitalComment on above:Performed By: #### PRBC #### [facility] [address] [place] [address] Dr. Joradn BlackwellUrea nitrogen [Mass/Vol]8.0 mg/dLNormal7.0-18.0The [facility] HospitalComment on above:Performed By: #### PRBC #### [facility] [address] [place] [address] Dr. Jordan Lopez nitrogen/Creatinine [Mass ratio]12.5 mg/mgNormalThe [facility] HospitalComment on above:Performed By: #### PRBC #### [facility] [address] [place] [address] Dr. Jordan Huertas gap [Moles/Vol]8.7 mmol/LNormalThe [facility] HospitalComment on above:Performed By: #### BMP #### [facility] [address] [place] [address] Dr. Jordan BlackwellCalcium [Mass/Vol]7.5 mg/dLCritically low8.5-10.1The [facility] HospitalComment on above:Performed By: #### BMP #### [facility] [address] [address] [address] Jordan BlackwellChloride [Moles/Vol]99 mmol/KZgupta61-719Nuq [facility] Comment on above:Performed By: #### BMP #### [facility] [address] [place] [address] Dr. Jordan BlackwellCO2 [Moles/Vol]25.4 mmol/NLunbnv92.0-32.0The [facility] Comment on above:Performed By: #### BMP #### [facility] [address] [place] [address] Dr. Jordan BlackwellCreatinine [Mass/Vol]0.64 mg/dLNormal0.55-1.02The [facility] HospitalComment on above:Performed By: #### BMP #### [facility] [address] [place] [address] Dr. Jordan VelázquezGFR-AF GRENADIAN>60Normal>=60The [facility] HospitalComment on above:Performed By: #### BMP #### [facility] [address] [place] [address] Dr. Jordan VelázquezGFR-NON AF GRENADIAN>60Normal>=60The [facility] HospitalComment on above:Performed By: #### BMP #### [facility] [address] [place] [address] Dr. Jordan BlackwellGlucose [Mass/Vol]110 mg/dLCritically kadn96-731Cxz [facility] HospitalComment on above:Performed By: #### BMP #### [facility] [address] [place] [address] Dr. Jordan BlackwellPotassium [Moles/Vol]3.1 mmol/LCritically low3.5-5.1[facility] HospitalComment on above:Performed By: #### BMP #### [facility] [address] [place] [address] Dr. Jordan Sinhadium [Moles/Vol]130 mmol/LCritically fen627-631Qbc [facility] HospitalComment on above:Performed By: #### BMP #### [facility] [address] [place] [address] Dr. Jordan Lopez nitrogen [Mass/Vol]8.0 mg/dLNormal7.0-18.0The [facility] HospitalComment on above:Performed By: #### BMP #### [facility] [address] [place] [address] Dr. Jordan Lopez nitrogen/Creatinine [Mass ratio]12.5 mg/mgNoGuernsey Memorial HospitalComment on above:Performed By: #### BMP #### [facility] [address] [place] [address] Dr. Jordan Candelaria RH RETYPEon [id number] and Rh group Nom (Bld)DONENoGuernsey Memorial HospitalComment on above:Performed By: #### URCX #### [facility] [address] [place] [address] Dr. Jordan Maxwell W MANUAL DIFFon [id number] #0.0 103/ulNormal0.0-0.3The [facility] HospitalComment on above:Performed By: #### PRBC #### [facility] [address] [place] [address] Dr. Jordan Brooks %0 %Normal0-5The [facility] HospitalComment on above:Performed By: #### PRBC #### [facility] [address] [place] [address] Dr. Jordan Otoole #0.08 103/ulNormal0.00-0.10The [facility] HospitalComment on above:Performed By: #### PRBC #### [facility] [address] [place] [address] Dr. Jordan Franco #0.00 103/ulNormal0.00-0.70The [facility] HospitalComment on above:Performed By: #### PRBC #### [facility] [address] [place] [address] Dr. Jordan Franco%0.0 %Critically low0.9-7.0The [facility] HospitalComment on above:Performed By: #### PRBC #### [facility] [address] [place] [address] Dr. Jordan CancinoT27.3 %Critically low36.0-48.0The [facility] HospitalComment on above:Performed By: #### PRBC #### [facility] [address] [place] [address] Dr. Jordan BlackwellB9.3 g/dlCritically low12.0-16.0The [facility] HospitalComment on above:Performed By: #### PRBC #### [facility] [address] [place] [address] Dr. Jordan Bryan #1.15 103/ulCritically low1.20-3.80The [facility] Comment on above:Performed By: #### PRBC #### [facility] [address] [place] [address] Dr. Jordan Bryan%14.0 %Critically low20.5-60.0The [facility] HospitalComment on above:Performed By: #### PRBC #### [facility] [address] [place] [address] Dr. Jordan HughesH32.1 lxYaliec62.7-34.0The [facility] HospitalComment on above: Performed By: #### PRBC #### [facility] [address] [place] [address] Dr. Jordan HughesHC34.1 g/pnImjhmd96.9-35.2The [facility] HospitalComment on above:Performed By: #### PRBC #### [facility] [address] [place] [address] Dr. Jordan HughesV94.1 gFLwjvqz32.0-99.0The [facility] HospitalComment on above: Performed By: #### PRBC #### [facility] [address] [address] [address] Jordan Biggs#1.72 103/ulCritically high0.30-0.80The [facility] Comment on above:Performed By: #### PRBC #### [facility] [address] [address] [address] Jordan Biggs%21.0 %Critically high1.7-12.0The [facility] HospitalComment on above:Performed By: #### PRBC #### [facility] [address] [place] [address] Dr. Jordan FamV9.1 fLCritically low9.5-13.5The [facility] HospitalComment on above:Performed By: #### PRBC #### [facility] [address] [place] [address] Dr. Jordan GirardT223 103/apSohidx119-143Fbm [facility] HospitalComment on above: Performed By: #### PRBC #### [facility] [address] [place] [address] Dr. Jordan BlackwellRBC2.90 106/ulCritically low4.20-5.40The [facility] HospitalComment on above:Performed By: #### PRBC #### [facility] [address] [place] [address] Dr. Jordan CalhounW14.6 %Zdetwk07.0-15.0The [facility] HospitalComment on above: Performed By: #### PRBC #### [facility] [address] [place] [address] Dr. Jordan Vargas #5.25 103/ulNormal1.40-6.50The [facility] HospitalComment on above:Performed By: #### PRBC #### [facility] [address] [place] [address] Dr. Jordan Vargas %64.0 %Gtcvul34.0-75.0The [facility] HospitalComment on above: Performed By: #### PRBC #### [facility] [address] [place] [address] Dr. Jordan WaggonerBC8.2 103/ulNormal4.0-11.0The [facility] HospitalComment on above: Performed By: #### PRBC #### [facility] [address] [place] [address] Dr. Jordan Ibrahim LYMPH #NormalThe [facility] HospitalComment on above: Performed By: #### PRBC #### [facility] [address] [place] [address] Dr. Jordan WilsonICAL LYMPH %NormalThe [facility] HospitalComment on above: Performed By: #### PRBC #### [facility] [address] [place] [address] Dr. Jordan Brooks #0.1 103/ulNormal0.0-0.3The [facility] HospitalComment on above:Performed By: #### PRBC #### [facility] [address] [place] [address] Dr. Jordan Brooks %2 %Normal0-5The [facility] HospitalComment on above:Performed By: #### PRBC #### [facility] [address] [place] [address] Dr. Jordan Otoole #0.07 103/ulNormal0.00-0.10The [facility] HospitalComment on above:Performed By: #### PRBC #### [facility] [address] [place] [address] Dr. Jordan Otoole %1.0 %Normal0.2-2.0The [facility] HospitalComment on above: Performed By: #### PRBC #### [facility] [address] [place] [address] Dr. Jordan Ge #NormalThe [facility] HospitalComment on above:Performed By: #### PRBC #### [facility] [address] [place] [address] Dr. Jordan Ge %NormalThe [facility] HospitalComment on above:Performed By: #### PRBC #### [facility] [address] [place] [address] Dr. Jordan BlackwellCORRECTED WBCNormal4.0-11.0The [facility] HospitalComment on above: Performed By: #### PRBC #### [facility] [address] [place] [address] Dr. Jordan Franco #0.28 103/ulNormal0.00-0.70The [facility] HospitalComment on above:Performed By: #### PRBC #### [facility] [address] [place] [address] Dr. Jordan Franco%4.0 %Normal0.9-7.0The [facility] HospitalComment on above: Performed By: #### PRBC #### [facility] [address] [place] [address] Dr. Jordan BlackwellHCT22.2 %Critically low36.0-48.0The [facility] HospitalComment on above:Performed By: #### PRBC #### [facility] [address] [place] [address] Dr. Jordan BlackwellHGB7.4 g/dlCritically low12.0-16.0The [facility] HospitalComment on above:Performed By: #### PRBC #### [facility] [address] [place] [address] Dr. Jordan BlackwellHYPOCHROMASIA2+NormalThe [facility] HospitalComment on above: Performed By: #### PRBC #### [facility] [address] [place] [address] Dr. Jordan Bryan #2.35 103/ulNormal1.20-3.80The [facility] HospitalComment on above:Performed By: #### PRBC #### [facility] [address] [place] [address] Dr. Jordan Bryan%34.0 %Otdwiv22.5-60.0The [facility] HospitalComment on above:Performed By: #### PRBC #### [facility] [address] [place] [address] Dr. Jordan BlackwellMCH32.5 osImxnbb23.7-34.0The [facility] HospitalComment on above: Performed By: #### PRBC #### [facility] [address] [place] [address] Dr. Jordan HughesHC33.3 g/snIvbjwl44.9-35.2The [facility] HospitalComment on above:Performed By: #### PRBC #### [facility] [address] [place] [address] Dr. Jordan HughesV97.4 qCWgcreb27.0-99.0The [facility] HospitalComment on above: Performed By: #### PRBC #### [facility] [address] [place] [address] Dr. Jordan PaulOCYTE #NormalThe [facility] HospitalComment on above: Performed By: #### PRBC #### [facility] [address] [place] [address] Dr. Jordan PaulOCYTE %NormalThe [facility] HospitalComment on above: Performed By: #### PRBC #### [facility] [address] [place] [address] Dr. Jordan Biggs#0.62 103/ulNormal0.30-0.80The [facility] HospitalComment on above:Performed By: #### PRBC #### [facility] [address] [place] [address] Dr. Jordan Biggs%9.0 %Normal1.7-12.0The [facility] HospitalComment on above: Performed By: #### PRBC #### [facility] [address] [place] [address] Dr. Jordan FamV9.7 fLNormal9.5-13.5The [facility] HospitalComment on above: Performed By: #### PRBC #### [facility] [address] [place] [address] Dr. Jordan Jennings #NormalThe [facility] HospitalComment on above:Performed By: #### PRBC #### [facility] [address] [place] [address] Dr. Jordan LanceOCYTE %NormalLancaster Municipal HospitalComment on above:Performed By: #### PRBC #### [facility] [address] [place] [address] Dr. Jordan BlackwellNRAultman Orrville HospitalComtrinity health [place] on above:Performed By: #### PRBC #### [facility] [address] [place] [address] Dr. Jordan BlackwellPLT224 103/ueZraobs669-582Ryh [facility] HospitalComment on above: Performed By: #### PRBC #### [facility] [address] [place] [address] Dr. Jordan DuarteROMASIASWVUMedicine Barnesville HospitalComtr[facility] health [place] on above: Performed By: #### PRBC #### [facility] [address] [place] [address] Dr. Jordan FlynnC2.28 106/ulCritically low4.20-5.40[facility] HospitalCom[facility] [place] on above:Performed By: #### PRBC #### [facility] [address] [place] [address] Dr. Jordan CalhounW12.7 %Wrklaj48.0-15.0The [facility] on above: Performed By: #### PRBC #### [facility] [address] [place] [address] Dr. Jordan Vargas #3.45 103/ulNormal1.40-6.50The [facility] HospitalComtr[facility] on above:Performed By: #### PRBC #### [facility] [address] [place] [address] Dr. Jordan Vargas %50.0 %Ikwxss95.0-75.0The [facility] HospitalComtr[facility] on above: Performed By: #### PRBC #### [facility] [address] [place] [address] Dr. Jordan WaggonerBC6.9 103/ulNormal4.0-11.0The [facility] HospitalComtr[facility] [place] on above: Performed By: #### PRBC #### [facility] [address] [address] [address] Jordan BlackwellOSMOLALITYon 76-23-8649Ttuqskrehj [Osmolality]260 mosm/kg Critically yyv845-344Wiv [facility] HospitalComment on above:Performed By: #### OSMO #### [facility] [address] [address] [address] Jordan BlackwellPOINT OF CARE GLUCOSEon 25-22-1906Nciujcl [Mass/Vol]71 mg/dL Critically rhl86-375Xyf [facility] HospitalComment on above:Performed By: #### OSMO #### [facility] [address] [address] [address] Jordan BlackwellGlucose [Mass/Vol]157 mg/dLCritically mebl61-975Jfv [facility] HospitalComment on above:Performed By: #### URCX #### [facility] [address] [place] [address] Dr. Jordan BlackwellGlucose [Mass/Vol]196 mg/dLCritically xaso96-445Dkh [facility] HospitalComment on above:Performed By: #### CBC #### [facility] [address] [place] [address] Dr. Jordan BlackwellPROF CHEM 8 (BAS METB)on 55-77-3241Domyd gap [Moles/Vol]8.7 mmol/LNormalThe [facility] HospitalComment on above:Performed By: #### PRBC #### [facility] [address] [place] [address] Dr. Jordan BlackwellCalcium [Mass/Vol]7.6 mg/dLCritically low8.5-10.1The [facility] HospitalComment on above:Performed By: #### PRBC #### [facility] [address] [place] [address] Dr. Jordan BlackwellChloride [Moles/Vol]98 mmol/CRzstpw79-888Fyf [facility] Comment on above:Performed By: #### PRBC #### [facility] [address] [address] [address] Jordan BlackwellCO2 [Moles/Vol]26.5 mmol/GUzkytf35.0-32.0The [facility] Comment on above:Performed By: #### PRBC #### [facility] [address] [address] [address] Jordan BlackwellCreatinine [Mass/Vol]0.65 mg/dLNormal0.55-1.02The [facility] HospitalComment on above:Performed By: #### PRBC #### [facility] [address] [address] [address] Jordan VelázquezGFR-AF GRENADIAN>60Normal>=60The [facility] HospitalComment on above:Performed By: #### PRBC #### [facility] [address] [place] [address] Dr. Jordan VelázquezGFR-NON AF GRENADIAN>60Normal>=60The [facility] HospitalComment on above:Performed By: #### PRBC #### [facility] [address] [place] [address] Dr. Jordan BlackwellGlucose [Mass/Vol]130 mg/dLCritically fqgh17-386Ybs [facility] HospitalComment on above:Performed By: #### PRBC #### [facility] [address] [place] [address] Dr. Jordan BlackwellPotassium [Moles/Vol]3.2 mmol/LCritically low3.5-5.1The [facility] HospitalComment on above:Performed By: #### PRBC #### [facility] [address] [place] [address] Dr. Jordan BlackwellSodium [Moles/Vol]130 mmol/LCritically tti720-111Tge [facility] HospitalComment on above:Performed By: #### PRBC #### [facility] [address] [place] [address] Dr. Jordan BlackwellUrea nitrogen [Mass/Vol]9.0 mg/dLNormal7.0-18.0The [facility] HospitalComment on above:Performed By: #### PRBC #### [facility] [address] [place] [address] Dr. Jordan BlackwellUrea nitrogen/Creatinine [Mass ratio]13.8 mg/mgNormFayette County Memorial HospitalComment on above:Performed By: #### PRBC #### [facility] [address] [place] [address] Dr. Jordan BlackwellT3, TOTAL (TRIIODOTHYRONINE)on 23-30-4542A6, TOTAL80 ng/dLNormal 71-180The [facility] HospitalComment on above:Performed By: #### CBC #### [facility] [address] [place] [address] Dr. Jordan BlackwellTYPE AND SCREENon 20-37-6823CJCI AND SCREENNegativeNormFayette County Memorial HospitalComment on above:Performed By: #### CBC #### [facility] [address] [place] [address] Dr. Jordan Kaiser 76-52-3775Vtfxdzlddaa peptide B (Bld) [Mass/Vol]109.0 pg/mL Normal<=900.0The [facility] on above:Performed By: #### URCX #### [facility] [address] [place] [address] Dr. Jordan Maxwell W MANUAL DIFFon 68-73-2437SMRFZSIA LYMPH #NormalSelect Medical [facility] on above:Performed By: #### PRBC #### [facility] [address] [place] [address] Dr. Jordan BlackwellATYPICAL LYMPH %NormalThe [facility] on above: Performed By: #### PRBC #### [facility] [address] [place] [address] Dr. Jordan Brooks #Normal0.0-0.3The [facility] on above: Performed By: #### PRBC #### [facility] [address] [place] [address] Dr. Jordan Brooks %Normal0-5The [facility] Hospitalment on above:Performed By: #### PRBC #### [facility] [address] [place] [address] Dr. Jordan Otoole #0.00 103/ulNormal0.00-0.10The [facility] HospitalComment on above:Performed By: #### PRBC #### [facility] [address] [place] [address] Dr. Jordan Otoole %0.0 %Critically low0.2-2.0The [facility] HospitalComment on above:Performed By: #### PRBC #### [facility] [address] [place] [address] Dr. Jordan Ge #NormalThe [facility] HospitalComment on above:Performed By: #### PRBC #### [facility] [address] [place] [address] Dr. Jordan Ge %NormalThe [facility] HospitalComment on above:Performed By: #### PRBC #### [facility] [address] [place] [address] Dr. Jordan BlackwellCORRECTED WBCNormal4.0-11.0The [facility] HospitalComment on above: Performed By: #### PRBC #### [facility] [address] [place] [address] Dr. Jordan Franco #0.00 103/ulNormal0.00-0.70The [facility] HospitalComment on above:Performed By: #### PRBC #### [facility] [address] [place] [address] Dr. Jordan Franco%0.0 %Critically low0.9-7.0The [facility] HospitalComment on above:Performed By: #### PRBC #### [facility] [address] [place] [address] Dr. Jordan BlackwellHCT24.4 %Critically low36.0-48.0The [facility] HospitalComment on above:Performed By: #### PRBC #### [facility] [address] [place] [address] Dr. Jordan BlackwellHGB8.2 g/dlCritically low12.0-16.0The [facility] HospitalComment on above:Performed By: #### PRBC #### [facility] [address] [place] [address] Dr. Jordan NajeraHM #0.91 103/ulCritically low1.20-3.80The [facility] Comment on above:Performed By: #### PRBC #### [facility] [address] [place] [address] Dr. Jordan Bryan%10.0 %Critically low20.5-60.0The [facility] HospitalComment on above:Performed By: #### PRBC #### [facility] [address] [place] [address] Dr. Jordan HughesH32.3 pqTiwwta66.7-34.0The [facility] HospitalComment on above: Performed By: #### PRBC #### [facility] [address] [place] [address] Dr. Jordan HughesHC33.6 g/meKumwtj66.9-35.2The [facility] HospitalComment on above:Performed By: #### PRBC #### [facility] [address] [place] [address] Dr. Jordan HughesV96.1 eYWwdtat26.0-99.0The [facility] HospitalComment on above: Performed By: #### PRBC #### [facility] [address] [place] [address] Dr. Jordan PaulOCYTE #NormalThe [facility] HospitalComment on above: Performed By: #### PRBC #### [facility] [address] [place] [address] Dr. Jordan PaulOCYTE %NormalThe [facility] HospitalComment on above: Performed By: #### PRBC #### [facility] [address] [place] [address] Dr. Jordan Biggs#1.00 103/ulCritically high0.30-0.80The [facility] Comment on above:Performed By: #### PRBC #### [facility] [address] [place] [address] Dr. Jordan Biggs%11.0 %Normal1.7-12.0The [facility] HospitalComment on above: Performed By: #### PRBC #### [facility] [address] [address] [address] Jordan BlackwellMPV9.7 fLNormal9.5-13.5The [facility] HospitalComment on above: Performed By: #### PRBC #### [facility] [address] [address] [address] Jordan LanceOCYTE #NormalThe [facility] HospitalComment on above:Performed By: #### PRBC #### [facility] [address] [address] [address] Jordan LanceOCYTE %NormalThe [facility] HospitalComment on above:Performed By: #### PRBC #### [facility] [address] [place] [address] Dr. Jordan BlackwellNRBCNormalThOhioHealth Dublin Methodist HospitalComment on above:Performed By: #### PRBC #### [facility] [address] [place] [address] Dr. Jordan GirardT251 103/blTfjbra317-537Hvj [facility] HospitalComment on above: Performed By: #### PRBC #### [facility] [address] [address] [address] Jordan BlackwellRBC2.54 106/ulCritically low4.20-5.40The [facility] HospitalComment on above:Performed By: #### PRBC #### [facility] [address] [place] [address] Dr. Jordan BlackwellRDW12.6 %Acztbc78.0-15.0The [facility] HospitalComment on above: Performed By: #### PRBC #### [facility] [address] [place] [address] Dr. Jordan Vargas #7.19 103/ulCritically high1.40-6.50The [facility] on above:Performed By: #### PRBC #### [facility] [address] [place] [address] Dr. Jordan Vargas %79.0 %Critically high43.0-75.0The [facility] HospitalComment on above:Performed By: #### PRBC #### [facility] [address] [address] [address] Jordan BlackwellWBC9.1 103/ulNormal4.0-11.0The [facility] HospitalComment on above: Performed By: #### PRBC #### [facility] [address] [place] [address] Dr. Jordan BlackwellCULTURE URINEon 25-55-8734XLNTWQR URINECulture Observations: LIGHT GROWTH OF MIXED GENITAL RUBÉN. NO POTENTIAL PATHOGENS SEEN.NormalThe [facility] HospitalComment on above:Performed By: #### URCX #### [facility] [address] [place] [address] Dr. Jordan BlackwellCoviferny-19 PCR ([facility])on 08-57-3307OLGY-CoV-2 (COVID-19) RNA TESFAYE+probe Ql (Unsp spec)Not detectedNormalNOT DETECTEDThe [facility] Comment on above:Result Comment: When diagnostic testing is negative, the [...] for this test is supported by the Commercial Intelligence Manager of Health and Human Service's declaration that circumstances exist to justify the emergency use of in vitro diagnostics for the detection and/or diagnosis of the virus that causes COVID-19. This EUA will remain in effect for the duration of the COVID-19 declaration justifying emergency of IVDs, unless it is terminated or revoked by the FDA (after which the test may no longer be used).Performed By: #### URCX #### [facility] [address] [place] [address] Dr. Jordan BlackwellPOINT OF CARE GLUCOSEon 19-10-5284Bsadwkl [Mass/Vol]130 mg/dL Critically lyqn88-229Cvb [facility] HospitalComment on above:Performed By: #### BMP #### [facility] [address] [address] [address] Jordan BlackwellGlucose [Mass/Vol]138 mg/dLCritically pxoc24-155Ktx [facility] HospitalComment on above:Performed By: #### UAMIC #### [facility] [address] [address] [address] Jordan BlackwellGlucose [Mass/Vol]185 mg/dLCritically enlo20-392Ejd [facility] HospitalComment on above:Performed By: #### BMP #### [facility] [address] [place] [address] Dr. Jordan BlackwellPROF 14(COMP METB)on 35-91-6927Thjcroi [Mass/Vol]2.6 g/dL Critically low3.4-5.0The [facility] HospitalComment on above:Performed By: #### OSMO #### [facility] [address] [place] [address] Dr. Jordan BlackwellAlbumin/Globulin [Mass ratio]0.8 {ratio}NormalThe [facility] HospitalComment on above:Performed By: #### OSMO #### [facility] [address] [place] [address] Dr. Jordan Durham [Catalytic activity/Vol]76 U/MSpbicw14-719Oqr [facility] Hospitalment on above:Performed By: #### OSMO #### [facility] [address] [place] [address] Dr. Jordan Berumen [Catalytic activity/Vol]22 U/OCvwkcr94-62Leg [facility] HospitalComment on above:Performed By: #### OSMO #### [facility] [address] [place] [address] Dr. Jordan Huertas gap [Moles/Vol]11.3 mmol/LNormalThe [facility] on above:Performed By: #### OSMO #### [facility] [address] [place] [address] Dr. Jordan Moore [Catalytic activity/Vol]28 U/NEthahc90-21Vcs [facility] HospitalComment on above:Performed By: #### OSMO #### [facility] [address] [address] [address] Jordan BlackwellBilirubin [Mass/Vol]0.6 mg/dLNormal0.2-1.0The [facility] Comment on above:Performed By: #### OSMO #### [facility] [address] [address] [address] Jordan BlackwellCalcium [Mass/Vol]8.3 mg/dLCritically low8.5-10.1The [facility] HospitalComment on above:Performed By: #### OSMO #### [facility] [address] [address] [address] Jordan BlackwellChloride [Moles/Vol]91 mmol/LCritically yue66-532Alq [facility] HospitalComment on above:Performed By: #### OSMO #### [facility] [address] [place] [address] Dr. Jordan BlackwellCO2 [Moles/Vol]27.9 mmol/DZhfjra33.0-32.0The [facility] Comment on above:Performed By: #### OSMO #### [facility] [address] [place] [address] Dr. Jordan BlackwellCreatinine [Mass/Vol]0.79 mg/dLNormal0.55-1.02The [facility] Harding HospitalComment on above:Performed By: #### OSMO #### [facility] [address] [place] [address] Dr. Jordan VelázquezGFR-AF GRENADIAN>60Normal>=60The [facility]ing HospitalComment on above:Performed By: #### OSMO #### [facility] [address] [place] [address] Dr. Jordan VelázquezGFR-NON AF GRENADIAN>60Normal>=60The [facility]ing HospitalComment on above:Performed By: #### OSMO #### [facility] [address] [place] [address] Dr. Jordan BlackwellGlobulin (S) [Mass/Vol]3.4 g/dLNormalThe [facility]ing HospitalComment on above:Performed By: #### OSMO #### [facility] [address] [address] [address] Jordan BlackwellGlucose [Mass/Vol]170 mg/dLCritically ovdd25-586Cez [facility] HospitalComment on above:Performed By: #### OSMO #### [facility] [address] [place] [address] Dr. Jordan BlackwellPotassium [Moles/Vol]3.2 mmol/LCritically low3.5-5.1The [facility] HospitalComment on above:Performed By: #### OSMO #### [facility] [address] [address] [address] Jordan BlackwellProtein [Mass/Vol]6.0 g/dLCritically low6.4-8.2The [facility] HospitalComtrinity health [facility] on above:Performed By: #### OSMO #### [facility] [address] [place] [address] Dr. Jordan BlackwellSodium [Moles/Vol]127 mmol/LCritically msd584-999Wjk [facility] HospitalComment on above:Performed By: #### OSMO #### [facility] [address] [place] [address] Dr. Jordan BlackwellUrea nitrogen [Mass/Vol]15.0 mg/dLNormal7.0-18.0The [facility] HospitalComtr[facility] health [facility] on above:Performed By: #### OSMO #### [facility] [address] [place] [address] Dr. Jordan BlackwellUrea nitrogen/Creatinine [Mass ratio]19.0 mg/mgNormalThe [facility] HospitalComtr[facility] on above:Performed By: #### OSMO #### [facility] [address] [place] [address] Dr. Jordan SinhaDIUM RANDOM URINEon 26-25-7868YU SODIUM<5Critically vlz11-18Fek [facility] HospitalCom[facility] on above:Performed By: #### CBC #### [facility] [address] [place] [address] Dr. Jordan BlackwellT4on 41-39-5088Z9 [Mass/Vol]7.10 ug/dLNormal4.80-13.90The Miami HospitalComment on above:Performed By: #### URCX #### [facility] [address] [address] [address] Jordan Rosales 59-69-7167LQQ3.693 uIU/mLNormal0.358-3.740The [facility] Hospitalment on above:Performed By: #### URCX #### [facility] [address] [place] [address] Dr. Jordan Fagan RANDOM W/MICROSCOPICon 42-54-1318HELAWEHIWUXA SEENNormalNONE SEENLancaster Municipal HospitalComtrinity health [place] on above:Performed By: #### URCX #### [facility] [address] [place] [address] Dr. Jordan Liangirubin Ql (U)NegativeNormalNEGATIVELancaster Municipal Hospital Comment on above:Performed By: #### URCX #### [facility] [address] [place] [address] Dr. Jordan Dunham SEENNormalNONE SEENSelect Medical Specialty [facility] on above:Performed By: #### URCX #### [facility] [address] [place] [address] Dr. Jordan Sloan (U)CLEARNormalCLEARLancaster Municipal HospitalComtrinity health [place] on above: Performed By: #### URCX #### [facility] [address] [place] [address] Dr. Jordan Bhatt (U)LT. YELLOWNormalYELLOWLancaster Municipal HospitalComment on above:Performed By: #### URCX #### [facility] [address] [place] [address] Dr. Jordan Larsenystals LM Nom (Urine sed)NONE SEENNormalNONE SEENLancaster Municipal HospitalComtrinity health [place] on above:Performed By: #### URCX #### [facility] [address] [place] [address] Dr. Ortega ChangEpithelial cells LM Ql (Urine sed)FEWAbnormalNONE SEEN /RAREThe [facility] HospitalComment on above:Performed By: #### URCX #### [facility] [address] [address] [address] Jordan BlackwellGlucose Ql (U)NegativeNormalNEGATIVELancaster Municipal HospitalComment on above:Performed By: #### URCX #### [facility] [address] [address] [address] Jordan BlackwellHemoglobin Ql (U)NegativeNormalNEGATIVESelect Medical [facility] on above:Performed By: #### URCX #### [facility] [address] [place] [address] Dr. Jordan BlackwellKetones Ql (U)TRACEAbnormalNEGATIVELancaster Municipal HospitalComment on above:Performed By: #### URCX #### [facility] [address] [place] [address] Dr. Jordan BlackwellLEUKOCYTESTRACEAbnormalNEGATIVELancaster Municipal HospitalComment on above:Performed By: #### URCX #### [facility] [address] [place] [address] Dr. Jordan BlackwellMUCOUSNONE SEENNormalNONE SEENLancaster Municipal HospitalComment on above:Performed By: #### URCX #### [facility] [address] [place] [address] Dr. Jordan BlackwellNitrite Ql (U)NegativeNormalNEGATIVELancaster Municipal HospitalComment on above:Performed By: #### URCX #### [facility] [address] [place] [address] Dr. Jordan BlackwellpH (U)6.5 [pH]Normal5-9The [facility] HospitalComment on above: Performed By: #### URCX #### [facility] [address] [place] [address] Dr. Jordan BlackwellPmpriEQX0-6Bwtqen3-6Scf [facility] HospitalComment on above:Performed By: #### URCX #### [facility] [address] [place] [address] Dr. Jordan BlackwellSPEC GRAVITY<=1.336Syapjhkp5.005-<=1.025[facility] Comment on above:Performed By: #### URCX #### [facility] [address] [address] [address] oJrdan Fagan PROTEINNegativeNormalNEGATIVE/ TRACEThe [facility] Comment on above:Performed By: #### URCX #### [facility] [address] [address] [address] Jordan BlackwellUrobilinogen Qn (U)0.2 {Claudia'U}/dLNormal0.2 - 1.0L[facility] Municipal HospitalComment on above:Performed By: #### URCX #### [facility] [address] [place] [address] Dr. Jordan BlackwellWBC2-5AbnormalNONE SEENLancaster Municipal HospitalComment on above: Performed By: #### URCX #### [facility] [address] [place] [address] Dr. Jordan Sharma Metabolic Panelon 90-09-6875Zqnxr gap [Moles/Vol]14.5 mmol/LNormal6.0-15.0[facility] - AndersonComment on above:Performed By: #### CBC, BMP ####[address] [address] USACalcium [Mass/Vol]8.9 mg/dLNormal8.2-10.2FCleveland Clinic South Pointe HospitalComment on above:Result Comment: PERFORMED BY:[address] [place], [place] [phone] MEDICAL DIRECTORKIMBERLYN SINGER M.D.Performed By: #### CBC, BMP ####[facility] [address] [place] [address] USAChloride [Moles/Vol]87 mmol/L Xep11-654XkyvzrkttOur Lady Of Mercy Hospital - AndersonComment on above:Performed By: #### CBC, BMP ####[address] [place] [address] USACO2 [Moles/Vol]25.4 mmol/EZtrwwd25.0-30.0[facility] Comment on above:Performed By: #### CBC, BMP ####[address] [address] USACreatinine [Mass/Vol]0.98 mg/dLNormal 0.44-1.03[facility] - AndersonComment on above:Performed By: #### CBC, BMP ####[address] [address] USAEstimated GFR ( Brenda> 60NoKettering Health [facility] Township Comment on above:Result Comment: GFR estimated reference range: According to KDOQI guidelines, <60 ml/min/1.73m2 is sufficient to diagnose a patient with chronic kidney disease.Performed By: #### CBC, BMP ####[address] [address] USAEstimated GFR (Non- Am 57NoKettering Health Washington TownshipComment on above:Performed By: #### CBC, BMP ####[address] [address] USAGlucose [Mass/Vol]191 mg/ySYyhn74-673LdxteuqxfOur Lady Of Mercy Hospital - AndersonComment on above:Result Comment: Random Glucose Reference Range is dependent on time and content of last meal. Glucose of more than 200 mg/dL in a nonstressed, ambulatory subject supports the diagnosis of Diabetes Mellitus. ADA recommended reference rangePerformed By: #### CBC, BMP ####[address] [address] USAPotassium [Moles/Vol]3.9 mmol/LNormal 3.5-5.1FCleveland Clinic South Pointe HospitalComment on above:Performed By: #### CBC, BMP ####[address] [address] [place] Sodium [Moles/Vol]123 mmol/LOff scale bfb146-131BvwasfrmeOur Lady Of Mercy Hospital - AndersonComment on above:Result Comment: Critical value result called at 1558 on 02/20/22Performed By: #### CBC, BMP ####[address] [address] USAUrea nitrogen [Mass/Vol]18 mg/dLNormal9-[facility] Hospital - AndersonComment on above:Performed By: #### CBC, BMP ####[address] [place] Basophils Auto (Bld) [#/Vol]Ordered By: Asa Napoles on 10-54-7311Hyaxmpndw (Bld) [#/Vol]0.1 10*3/uL0.0-0.2FCleveland Clinic South Pointe HospitalBasophils/100 WBC Auto (Bld)Ordered By: Asa Napoles on 73-35-9412Fbcwnlkym/100 WBC (Bld)0.5 % .[facility] - AndersonCOVID-19 Antigenon 61-55-7481QUDCR-19 Antigen NormalOur Lady Of Mercy Hospital - AndersonComment on above:Performed By: #### COVID-19 YASMINE, SOFIANEG ####[id number] USACOVID-19 SOFIAOrdered By: Asa Napoles on 02-20-2022 SARS-CoV+SARS-CoV-2 (COVID-19) Ag IA.rapid Ql (Resp)NegativeNegativeOur Lady Of Mercy Hospital - AndersonComment on above:This is a duplicate Yasmine SARS Antigen (FREDERIC) result to be used for statistical tracking purpose only.Complete Blood Count Auto Diffon 49-97-7655Qdiuxxyjk (Bld) [#/Vol]0.1 10*3/uLNormal0.0-0.2 [facility] - AndersonComment on above:Result Comment: PERFORMED BY:[address] [place], [place] [phone] MEDICAL DIRECTORKIMBERLYN SINGER M.D.Performed By: #### CBC, BMP ####[address] [place] Basophils/100 WBC (Bld)0.5 %Normal.[facility] - AndersonComment on above:Performed By: #### CBC, BMP ####[address] USAEosinophils (Bld) [#/Vol]0.1 10*3/uLNormal0.0-0.45 [facility] - AndersonComment on above:Performed By: #### CBC, BMP ####[address] [place] Eosinophils/100 WBC (Bld)0.7 %Normal.[facility] - AndersonComment on above:Performed By: #### CBC, BMP ####[place] [address] USAErythrocyte distribution width (RBC) [Ratio]12.9 % Jrmjfk87.9-15.3FCleveland Clinic South Pointe HospitalComment on above:Performed By: #### CBC, BMP ####[place] [address] USAHematocrit (Bld) [Volume fraction]29.5 %Low34.0-46.4FCleveland Clinic South Pointe HospitalComment on above:Performed By: #### CBC, BMP ####[place] [address] USAHemoglobin (Bld) [Mass/Vol]9.8 g/dLLow11.8-15.4FCleveland Clinic South Pointe HospitalComment on above: Performed By: #### CBC, BMP ####[place] [address] USALymphocytes (Bld) [#/Vol]1.6 10*3/uLNormal1.00-4.8 [facility] - AndersonComtrinity health [facility] on above:Performed By: #### CBC, BMP ####[address] [place] Lymphocytes/100 WBC (Bld)11.5 %Normal.[facility] - AndersonComment on above:Performed By: #### CBC, BMP ####[address] USAMCH (RBC) [Entitic mass]32.7 ciAygski99.7-34.3 [facility] - AndersonComment on above:Performed By: #### CBC, BMP ####[address] [place] [address] USAMCV (RBC) [Entitic vol]98.2 pEAtmqcl12-938GrjflituxOur Lady Of Mercy Hospital - AndersonComment on above:Performed By: #### CBC, BMP ####[address] [address] USAMean Corpuscular HGB Conc33.3 g/dLNormal 32.0-35.0[facility] - AndersonComment on above:Performed By: #### CBC, BMP ####[address] [address] USAMonocytes (Bld) [#/Vol]1.4 10*3/uLHigh0.0-0.8[facility] - AndersonComtrinity health [place] on above:Performed By: #### CBC, BMP ####[address] [address] USAMonocytes/100 WBC (Bld)10.0 % Normal.[facility] - AndersonComment on above:Performed By: #### CBC, BMP ####[address] [address] [place] Neutrophils (Bld) [#/Vol]10.7 10*3/uLHigh1.8-7.7FCleveland Clinic South Pointe HospitalComtrinity health [place] on above:Performed By: #### CBC, BMP ####[address] [address] USANeutrophils/100 WBC (Bld)77.3 %Normal.[facility] - AndersonComment on above:Performed By: #### CBC, BMP ####[address] [address] USANucleated RBC/100 WBC (Bld) [Ratio]0.0 %Normal0-0.5FCleveland Clinic South Pointe HospitalComtrinity health [place] on above:Performed By: #### CBC, BMP ####[address] [address] USAPlatelet mean volume (Bld) [Entitic vol]8.4 fLNormal6.3-10.7FCleveland Clinic South Pointe HospitalComment on above:Performed By: #### CBC, BMP ####[facility] [address] [place] [address] USAPlatelets (Bld) [#/Vol]255 10*3/vSKkywns776-260 [facility] - AndersonComment on above:Performed By: #### CBC, BMP ####[facility] [address] [place] [address] USARBC (Bld) [#/Vol]3.00 10*6/uLLow3.60-5.00[facility] - AndersonComment on above:Performed By: #### CBC, BMP ####[facility] [address] [place] [address] USAWBC (Bld) [#/Vol]13.9 10*3/uLHigh4.5-11.0[facility] - AndersonComment on above:Performed By: #### CBC, BMP ####[place] [address] [place] Creatinine and Glomerular filtration rate.predicted panel (S/P/Bld)Ordered By: Asa Napoles on 76-89-1659Euapvlekss [Mass/Vol]0.98 mg/dL0.44-1.03[facility] - AndersonEosinophils Auto (Bld) [#/Vol]Ordered By: Asa Napoles on 28-07-2639Eobzmudddva (Bld) [#/Vol]0.1 10*3/uL0.0-0.45[facility] - AndersonEosinophils/100 WBC Auto (Bld)Ordered By: Asa Napoles on 53-93-4423Gagacqtelxy/100 WBC (Bld)0.7 %.[facility] Erythrocyte distribution width Auto (RBC) [Ratio]Ordered By: Asa Napoles on 22-59-4340Punuridirje distribution width (RBC) [Ratio]12.9 %11.9-15.3FCleveland Clinic South Pointe HospitalEstimated glomerular filtration rate (GFR) non- AmericanOrdered By: Asa Napoles on 03-05-7186RLO/1.73 sq M.predicted among non- blacks MDRD (S/P/Bld) [Vol rate/Area]57 mL/MinOur Lady Of Mercy Hospital - Anderson Hematocrit Auto (Bld) [Volume fraction]Ordered By: Asa Napoles on 02-20-2022 Hematocrit (Bld) [Volume fraction]29.5 %34.0-46.4FCleveland Clinic South Pointe HospitalHemoglobin [Mass/volume] in BloodOrdered By: Asa Napoles on 02-20-2022 Hemoglobin (Bld) [Mass/Vol]9.8 g/dL11.8-15.4FCleveland Clinic South Pointe Hospital Laboratory - Hematology and Cell countsOrdered By: Asa Napoles on 02-20-2022 Nucleated RBC/100 WBC (Bld) [Ratio]0.0 %0-0.5FCleveland Clinic South Pointe Hospital Leukocytes [#/volume] in Blood by Automated countOrdered By: Asa Napoles on 26-24-0630LHM (Bld) [#/Vol]13.9 10*3/uL4.5-11.0[facility] Lymphocytes Auto (Bld) [#/Vol]Ordered By: Asa Napoles on 15-75-7476Tjlxeibqokd (Bld) [#/Vol]1.6 10*3/uL1.00-4.8[facility] - AndersonLymphocytes/100 WBC Auto (Bld)Ordered By: Asa Napoles on 25-08-1480Emvzbkcohpv/100 WBC (Bld) 11.5 %.[facility] Auto (RBC) [Entitic mass]Ordered By: Asa Napoles on 59-09-6942APC (RBC) [Entitic mass]32.7 pg24.7-34.3FCleveland Clinic South Pointe HospitalMCHC Auto (RBC) [Mass/Vol]Ordered By: Asa Napoles on 34-29-6044CMCH (RBC) [Mass/Vol]33.3 g/dL32.0-35.0[facility] - AndersonMCV Auto (RBC) [Entitic vol]Ordered By: Asa Napoles on 54-13-9941QFP (RBC) [Entitic vol]98.2 gL35-815OodtovwwzOur Lady Of Mercy Hospital - AndersonMonocytes Auto (Bld) [#/Vol]Ordered By: Asa Napoles on 15-13-9810Ogrhlwaib (Bld) [#/Vol]1.4 10*3/uL0.0-0.8[facility] - AndersonMonocytes/100 WBC Auto (Bld) Ordered By: Asa Napoles on 60-35-1265Vigmxnkpp/100 WBC (Bld)10.0 %.[facility] - AndersonNeutrophils Auto (Bld) [#/Vol]Ordered By: Asa Napoles on 19-47-5539Qhgqdvexsld (Bld) [#/Vol]10.7 10*3/uL1.8-7.7FCleveland Clinic South Pointe HospitalNeutrophils/100 WBC Auto (Bld)Ordered By: Asa Napoles on 05-37-5527Xbqytjymkvy/100 WBC (Bld)77.3 %.[facility] - AndersonNo Panel InformationOrdered By: Asa Napoles on 63-05-9288Rzmycsklz GFR ()> 60 mL/MinOur Lady Of Mercy Hospital - AndersonComment on above:GFR estimated reference range: According to KDOQI guidelines, <60 ml/min/1.73m2 is sufficient todiagnose a patient with chronic kidney disease.Pharmacy Creatinine Clearance (ChemN/AFMary Rutan HospitalARS Antigen (LFIA)[facility] Health CenterARS Antigen (LFIA)[facility] Platelet mean volume Auto (Bld) [Entitic vol]Ordered By: Asa Napoles on 39-87-4521Ztuknnmz mean volume (Bld) [Entitic vol]8.4 fL6.3-10.7FCleveland Clinic South Pointe HospitalPlatelets Auto (Bld) [#/Vol]Ordered By: Asa Napoles on 89-47-8229Sxzmffyfz (Bld) [#/Vol]255 10*3/tH611-175EdfmvemwoOur Lady Of Mercy Hospital - AndersonRBC Auto (Bld) [#/Vol]Ordered By: Asa Napoles on 36-76-4736WJB (Bld) [#/Vol]3.00 10*6/uL3.60-5.00[facility] Health Centererum or plasma anion gap determinationOrdered By: Asa Napoles on 83-72-7463Ihzgb gap [Moles/Vol]14.5 mmol/L6.0-15.0[facility] Health Centererum or plasma calcium measurement (mass/volume)Ordered By: Asa Napoles on 76-91-8737Wtoqago [Mass/Vol]8.9 mg/dL8.2-10.2FMary Rutan Hospitalerum or plasma chloride measurement (moles/volume)Ordered By: Asa Napoles on 02-20-2022 Chloride [Moles/Vol]87 mmol/Q17-583PrdtapvynSamaritan North Health Centererum or plasma glucose measurement (mass/volume)Ordered By: Asa Napoles on 02-20-2022 Glucose [Mass/Vol]191 mg/hF93-551IujwjhhjvOur Lady Of Mercy Hospital - AndersonComment on above:ADA recommended reference rangeRandom Glucose Reference Range is dependent on time and content of last meal. Glucose of more than 200 mg/dL in a nonstressed, ambulatory subject supports the diagnosisof Diabetes Mellitus.Serum or plasma potassium measurement (moles/volume)Ordered By: Asa Napoles on 84-36-9068Ocxvapsuj [Moles/Vol]3.9 mmol/L3.5-5.1FMary Rutan Hospitalerum or plasma sodium measurement (moles/volume)Ordered By: Asa Napoles on 75-72-1974Yutihx [Moles/Vol]123 mmol/W469-261SrxtfbpkzOur Lady Of Mercy Hospital - AndersonComment on above:Critical valueresult calledat 1558 on 02/20/22Serum or plasma total carbon dioxide measurement (moles/volume)Ordered By: Asa Napoles on 58-57-3441XV3 [Moles/Vol]25.4 mmol/L22.0-30.0[facility] Health Centererum or plasma urea nitrogen measurement (mass/volume)Ordered By: Asa Napoles on 32-75-2506Nwvn nitrogen [Mass/Vol]18 mg/dL9-23Sam[facility] North Health Centerofia Ag Negativeon 49-94-8988Ljsgs Ag NegativeNegativeNormal NegativeOur Lady Of Mercy Hospital - AndersonComment on above:Result Comment: This is a duplicate Yasmine SARS Antigen (FREDERIC) result to be used for statistical track ing purpose only.PERFORMED BY:[address] [place], [place] [phone] MEDICAL DIRECTORJIANLAN SUN M.D. Performed By: #### DREW-19 INEZ [place] ####[facility] [address] [place] [address] USAXR SHOULDER LT 2V or >on 27-20-7703PH SHOULDER LT 2V or >EXAM: XR SHOULDER LT 2V or > INDICATION: Unspecified fall. COMPARISON: None. TECHNIQUE: Left shoulder, 3 views. FINDINGS: Comminuted impacted and mildly displaced fracture of the left femoral neck. Intact glenohumeral and acromioclavicular joints. Marked overlying soft tissue swelling. IMPRESSION: Mildly displaced and impacted left humeral neck fracture. Electronically authenticated by: KATIE SOTO Date: 2022-02-17 13:48[facility] CHEST W CONon [id number] CHEST W CONCT CHEST W CON: 01/11/2022 9:38 PM EDT CLINICAL HISTORY: 66 years [...] Electronically authenticated by: KAEL DUVAL Date: 2022-01-11 23:14Normal [facility] HospitalCT CSPINE WO CONon [id number] CSPINE WO CONCT CERVICAL SPINE WITHOUT CONTRAST HISTORY: Pain. COMPARISON: None available. TECHNIQUE: Helical CT images were performed of the cervical spine without intravenous contrast. Dose reduction techniques were achieved by using automated exposure control and/or adjustment of mA and/or kV according to patient size and/or use of iterative reconstruction technique. FINDINGS: SUPERVISOR PASTE MIXING RADIOGRAPH: Unremarkable. MINERALIZATION: Normal. CRANIOCERVICAL AND ATLANTOAXIAL [...] Electronically authenticated by: ZAINAB RICHARDS Date: 2022-01-11 23:08NormFayette County Memorial HospitalCT FACIAL BONES WO CONon [id number] FACIAL BONES WO CONStudy: CT HEAD WO CON, CT FACIAL BONES [...] associated facial fracture. Mastoids are clear. ORBITS: [place] lenses are surgically absent. PARANASAL SINUSES: Trace left greater than right maxillary sinus mucosal thickening IMPRESSION: 1. Soft tissue contusions of the left face and left lateral periorbital region. No facial fracture. 2. No acute intracranial abnormality. Electronically authenticated by: PETROS WELLS Date: 2022-01-11 23:04CentervilleDRUG SCREEN RAPID (URINE)on [id number]Y [facility] HospitalComment on above:Performed By: #### URCX #### [facility] [address] [place] [address] Dr. Jordan BlackwellBARNegativeMurrietaNEGTogus VA Medical CenterComment on above: Performed By: #### URCX #### [facility] [address] [place] [address] Dr. Jordan BlackwellBUPNegativeMurrietaNEGTogus VA Medical CenterComtrinity health [place]onia on above: Performed By: #### URCX #### [facility] [address] [place] [address] Dr. Jordan BlackwellBZONegativeMurrietaNEGTogus VA Medical CenterComtrinity health [place]onia on above: Performed By: #### URCX #### [facility] [address] [place] [address] Dr. Jordan BlackwellCOCNegativeGlenbeigh HospitalComment on above: Performed By: #### URCX #### [facility] [address] [place] [address] Dr. Jordan AlexCleveland Clinic Fairview HospitalComment on above: Result Comment: AMP (Amphetamine): 500ng/mL, BAR (Barbituates): 200 ng/mL, BZO (Benzodiazepines): 150 ng/mL, BUP (Buprenorphine): 10 ng/mL, DARREN (Cocaine): 150 ng/mL, mAMP (Methamphetamine): 500 ng/mL, MTD (Methadone): 200 ng/mL, OPI (Opiates): 100 ng/mL, OXY (Oxycodone): 100 ng/mL, PCP (Phencyclidine): 25 ng/mL, PPX (Propoxyphene): 300 ng/mL, THC (Cannabinoids): 50 ng/mL, TCA (Trycyclic Antidepressants): 300 ng/mLPerformed By: #### URCX #### [facility] [address] [place] [address] Dr. Jordan BlackwellDRUG CUT HEADERDRUG CLASS TEST SYSTEM CUT-OFF CONCENTRATIONS ARE FOLLOWS:NormalThe [facility] HospitalComment on above:Performed By: #### URCX #### [facility] [address] [place] [address] Dr. Jordan BlackwellmAMPNegativeNormalNEGATIVELancaster Municipal HospitalComment on above: Performed By: #### URCX #### [facility] [address] [place] [address] Dr. Jordan BlackwellMTDNegativeNormalNEGATIVELancaster Municipal HospitalComment on above: Performed By: #### URCX #### [facility] [address] [place] [address] Dr. Jordan BlackwellOPINegativeNormalNEGATIVELancaster Municipal HospitalComment on above: Performed By: #### URCX #### [facility] [address] [place] [address] Dr. Jordan BlackwellOXYNegativeNormalNEGATIVELancaster Municipal HospitalComment on above: Performed By: #### URCX #### [facility] [address] [place] [address] Dr. Jordan BlackwellPCPNegativeNormalNEGATIVELancaster Municipal HospitalComment on above: Performed By: #### URCX #### [facility] Laboratory [address] [place] [address] Dr. Jordan BlackwellPPXNegativeNormalNEGATIVELancaster Municipal HospitalComment on above: Performed By: #### URCX #### [facility] [address] [place] [address] Dr. Jordan BlackwellTCAPositiveAbnormalNEGATIVELancaster Municipal HospitalComment on above: Performed By: #### URCX #### [facility] [address] [place] [address] Dr. Jordan BlackwellTHCPositiveAbnormalNEGATIVELancaster Municipal HospitalComment on above: Performed By: #### URCX #### [facility] [address] [address] [address] Jordan Orourke URINE PROFILEon [id number] Ql (U)NegativeNormal NEGATIVELancaster Municipal HospitalComment on above:Performed By: #### UAMIC #### [facility] [address] [address] [address] Jordan BlackwellClarity (U)CLEARNormalCLEARLancaster Municipal HospitalComment on above: Performed By: #### UAMIC #### [facility] [address] [place] [address] Dr. Jordan Bhatt (U)LT. YELLOWNormalYELLOWLancaster Municipal HospitalComtrinity health [place] on above:Performed By: #### UAMIC #### [facility] [address] [place] [address] Dr. Jordan ToureMAYURI micrscopic examination will be performed if indicated. NormalLancaster Municipal HospitalComment on above:Performed By: #### UAMIC #### [facility] [address] [place] [address] Dr. Jordan BlackwellGlucose Ql (U)NegativeNormalNEGATIVELancaster Municipal HospitalComtrinity health [place] on above:Performed By: #### UAMIC #### [facility] [address] [place] [address] Dr. Jordan BlackwellHemoglobin Ql (U)TRACE-INTACTAbnormalNEGATIVELancaster Municipal HospitalComtrinity health [place] on above:Performed By: #### UAMIC #### [facility] [address] [place] [address] Dr. Jordan BlackwellKetones Ql (U)NegativeNormalNEGATIVELancaster Municipal HospitalComtrinity health [place] on above:Performed By: #### UAMIC #### [facility] [address] [place] [address] Dr. Jordan BlackwellLEUKOCYTESMODERATEAbnormalNEGATIVELancaster Municipal HospitalComtrinity health [place] on above:Performed By: #### UAMIC #### [facility] [address] [address] [address] Jordan Mcneal Ql (U)NegativeNormalNEGATIVEThe [place] [facility] HospitalComment on above:Performed By: #### UAMIC #### [facility] [address] [place] [address] Dr. Jordan BlackwellpH (U)6.0 [pH]Normal5-9The [place] [facility] HospitalComment on above: Performed By: #### UAMIC #### [facility] [address] [place] [address] Dr. Jordan BlackwellSPEC GRAVITY<=1.810Nprqrtid1.005-<=1.025The [facility] Comment on above:Performed By: #### UAMIC #### [facility] [address] [place] [address] Dr. Jordan Fagan PROTEINNegativeNormalNEGATIVE/ TRACEThe [facility] Comment on above:Performed By: #### UAMIC #### [facility] [address] [place] [address] Dr. Jordan Choe MICRO INDINDICATEDCentervilleComment on above: Performed By: #### UAMIC #### [facility] [address] [place] [address] Dr. Jordan Ramos Qn (U)0.2 {Claudia'U}/dLNormal0.2 - 1.0Lancaster Municipal HospitalComment on above:Performed By: #### UAMIC #### [facility] [address] [place] [address] Dr. Jordan Dean MICROSCOPIC ONLYon [id number]S SEEN [facility] HospitalComment on above:Performed By: #### CBC #### [facility] [address] [place] [address] Dr. Jordan Robertson identified Cx Nom (U)NOT INDICATEDNoGuernsey Memorial HospitalComment on above:Performed By: #### CBC #### [facility] [address] [place] [address] Dr. Jordan Dunham SEENNormalNONE SEENUC Healthment on above:Performed By: #### CBC #### [facility] [address] [address] [address] Jodran BlackwellCrystals LM Nom (Urine sed)NONE SEENNormalNONE SEENThe [facility] HospitalComtrinity health [place] on above:Performed By: #### CBC #### [facility] [address] [address] [address] Jordan Velázquezpithelial cells LM Ql (Urine sed)RARENormalNONE SEEN /RAREThe [place] [facility] HospitalComment on above:Performed By: #### CBC #### [facility] [address] [place] [address] Dr. Jordan BlackwellMUCOUSNONE SEENNormalNONE SEENSelect [facility] on above:Performed By: #### CBC #### [facility] [address] [place] [address] Dr. Jordan BlackwellRBCNONE SEENAbnormal0-2The [facility] Hospitalment on above: Performed By: #### CBC #### [facility] [address] [place] [address] Dr. Jordan BlackwellWBC0-2AbnormalNONE SEENSelect Medical Specialty [facility] on above: Performed By: #### CBC #### [facility] [address] [place] [address] Dr. Jordan Maxwell AUTO DIFFon [id number] #0.0 103/ulNormal0.0-0.1The [facility] Lor[facility] Hospitalment on above:Performed By: #### UAMIC #### [facility] [address] [place] [address] Dr. Jordan BlackwellBasophils/100 WBC (Bld)0.4 %Normal0.2-2.0The [facility] Comment on above:Performed By: #### UAMIC #### [facility] [address] [place] [address] Dr. Jordan VelázquezO #0.1 103/ulNormal0.0-0.7The [facility] on above: Performed By: #### UAMIC #### [facility] [address] [place] [address] Dr. Jordan Velázquezosinophils/100 WBC (Bld)1.3 %Normal0.9-7.0The [facility] Comment on above:Performed By: #### UAMIC #### [facility] [address] [place] [address] Dr. Jordan Velázquezrythrocyte distribution width (RBC) [Ratio]12.7 %Tequwr03.0-15.0 The [place] [facility] HospitalComment on above:Performed By: #### UAMIC #### [facility] [address] [place] [address] Dr. Jordan BlackwellHematocrit (Bld) [Volume fraction]31.8 %Critically low36.0-48.0 The [place] [facility] HospitalComment on above:Performed By: #### UAMIC #### [facility] [address] [place] [address] Dr. Jordan BlackwellHemoglobin (Bld) [Mass/Vol]10.7 g/dLCritically low12.0-16.0The [place] [facility] HospitalComment on above:Performed By: #### UAMIC #### [facility] [address] [place] [address] Dr. Jordan Garza #0.09 10e3/ulCritically high0.00-0.03The [facility] Comment on above:Performed By: #### UAMIC #### [facility] [address] [place] [address] Dr. Jordan BlackwellIG %1.3 %Critically high0.0-0.5The [place] [facility] HospitalComment on above:Performed By: #### UAMIC #### [facility] [address] [place] [address] Dr. Jordan NajeraH #2.5 103/ulNormal1.2-3.8The [place] [facility] HospitalComment on above:Performed By: #### UAMIC #### [facility] [address] [place] [address] Dr. Jordan Hannamphocytes/100 WBC (Bld)36.0 %Bfiimj87.5-60.0The [place] [facility] HospitalComment on above:Performed By: #### UAMIC #### [facility] [address] [place] [address] Dr. Jordan Palacios DIFF REQNONormalThe [place] [facility] HospitalComment on above: Performed By: #### UAMIC #### [facility] [address] [place] [address] Dr. Jordan Hughes (RBC) [Entitic mass]33.4 vgXwonds08.7-34.0The [place] [facility] HospitalComment on above:Performed By: #### UAMIC #### [facility] [address] [place] [address] Dr. Jordan Hughes (RBC) [Mass/Vol]33.6 g/fCMroxkx46.9-35.2The [place] [facility] HospitalComment on above:Performed By: #### UAMIC #### [facility] [address] [place] [address] Dr. Jordan Hughes (RBC) [Entitic vol]99.4 fLCritically high81.0-99.0The [place] [facility] HospitalComment on above:Performed By: #### UAMIC #### [facility] [address] [place] [address] Dr. Jordan Bragg #0.5 103/ulNormal0.3-0.8The [place] [facility] HospitalComment on above:Performed By: #### UAMIC #### [facility] [address] [place] [address] Dr. Jordan Prideocytes/100 WBC (Bld)7.6 %Normal1.7-12.0The [facility] Comment on above:Performed By: #### UAMIC #### [facility] [address] [place] [address] Dr. Jordan Mckeon #3.7 103/ulNormal1.4-6.5The [place] [facility] HospitalComment on above:Performed By: #### UAMIC #### [facility] [address] [place] [address] Dr. Yilan ChangNeutrophils/100 WBC (Bld)53.4 %Qqyjzp79.0-75.0The [place] [facility] HospitalComment on above:Performed By: #### UAMIC #### [facility] [address] [place] [address] Dr. Jordan Santiago mean volume (Bld) [Entitic vol]9.6 fLNormal9.5-13.5The [place] [facility] HospitalComment on above:Performed By: #### UAMIC #### [facility] [address] [place] [address] Dr. Jordan BlackwellPLT186 103/vjSvdspe523-301Mpx [facility] HospitalComment on above: Performed By: #### UAMIC #### [facility] [address] [place] [address] Dr. Jordan BlackwellRBC3.20 106/ulCritically low4.20-5.40The [place] [facility] HospitalComment on above:Performed By: #### UAMIC #### [facility] [address] [place] [address] Dr. Jordan BlackwellWBC7.0 103/ulNormal4.0-11.0The [place] [facility] HospitalComment on above: Performed By: #### UAMIC #### [facility] [address] [place] [address] Dr. Jordan Palmer (BLD ALC)on 99-93-3430DQP NOTENOTE: 80 mg/dl is the legal limit for a blood alcohol levelNoGuernsey Memorial HospitalComtrinity health [place] on above: Performed By: #### URCX #### [facility] [address] [place] [address] Dr. Jordan Velázquezthanol [Mass/Vol]21 mg/dLNoGuernsey Memorial HospitalComment on above:Performed By: #### URCX #### [facility] [address] [place] [address] Dr. Jordan BlackwellLEBANON [facility] GLUCOSEon 16-87-9042Jdhoqks [Mass/Vol]165 mg/dL Critically hwxx02-805Tjq [facility] HospitalComment on above:Performed By: #### POCGLUC ####[facility] [address] [place], [place] [address]WwDr. Jordan BlackwellPROF 14(COMP METB)on 32-19-5814Gckbdcg [Mass/Vol]3.3 g/dL Critically low3.4-5.0The [place] [facility] HospitalComment on above:Performed By: #### URCX #### [facility] [address] [address] [address] Jordan BlackwellAlbumin/Globulin [Mass ratio]1.0 {ratio}NormalThe [place] [facility] HospitalComment on above:Performed By: #### URCX #### [facility] [address] [address] [address] Jordan AngelaP [Catalytic activity/Vol]85 U/EMbwnwc92-105Uob [facility] HospitalComment on above:Performed By: #### URCX #### [facility] [address] [address] [address] Jordan AngelaT [Catalytic activity/Vol]22 U/KMllmff40-53Bri [facility] HospitalComment on above:Performed By: #### URCX #### [facility] [address] [address] [address] Jordan Huertas gap [Moles/Vol]17.3 mmol/LNormalThe [facility] Comment on above:Performed By: #### URCX #### [facility] [address] [address] [address] Jordan BlackwellAST [Catalytic activity/Vol]18 U/UGxzgke33-42Tuv [facility] HospitalComment on above:Performed By: #### URCX #### [facility] [address] [address] [address] Jordan BlackwellBilirubin [Mass/Vol]0.3 mg/dLNormal0.2-1.0The [facility] Comment on above:Performed By: #### URCX #### [facility] [address] [address] [address] Jordan BlackwellCalcium [Mass/Vol]8.0 mg/dLCritically low8.5-10.1The [place] [facility] HospitalComment on above:Performed By: #### URCX #### [facility] [address] [place] [address] Dr. Jordan BlackwellChloride [Moles/Vol]92 mmol/LCritically wyk35-638Unn [facility] on above:Performed By: #### URCX #### [facility] [address] [place] [address] Dr. Jordan BlackwellCO2 [Moles/Vol]19.9 mmol/LCritically low21.0-32.0The [place] [facility] HospitalComment on above:Performed By: #### URCX #### [facility] [address] [place] [address] Dr. Jordan BlackwellCreatinine [Mass/Vol]0.98 mg/dLNormal0.55-1.02The [place] [facility] HospitalComtrinity health [place] on above:Performed By: #### URCX #### [facility] [address] [place] [address] Dr. Jordan VelázquezGFR-AF GRENADIAN>69Normal>=60The [place] [facility] HospitalComtr[facility] health [place] on above:Performed By: #### URCX #### [facility] [address] [place] [address] Dr. Jordan VelázquezGFR-NON AF AELGKWUO13 mL/min/1.02p1Afggbwdarq low>=60The [place] [facility] HospitalComtr[facility] [place] on above:Performed By: #### URCX #### [facility] [address] [place] [address] Dr. Jordan BlackwellGlobulin (S) [Mass/Vol]3.2 g/dLNormalThe [place] [facility] HospitalComtr[facility] [place] on above:Performed By: #### URCX #### [facility] [address] [place] [address] Dr. Jordan BlackwellGlucose [Mass/Vol]177 mg/dLCritically xoap75-579Inm [facility] on above:Performed By: #### URCX #### [facility] [address] [place] [address] Dr. Jordan BlackwellPotassium [Moles/Vol]3.2 mmol/LCritically low3.5-5.1The [place] [facility] HospitalComment on above:Performed By: #### URCX #### [facility] [address] [address] [address] Jordan BlackwellProtein [Mass/Vol]6.5 g/dLNormal6.4-8.2The [facility] Comment on above:Performed By: #### URCX #### [facility] [address] [address] [address] Jordan BlackwellSodium [Moles/Vol]126 mmol/LCritically xrr058-161Duh [facility] HospitalComment on above:Performed By: #### URCX #### [facility] [address] [place] [address] Dr. Jordan BlackwellUrea nitrogen [Mass/Vol]11.0 mg/dLNormal7.0-18.0The [place] [facility] HospitalComment on above:Performed By: #### URCX #### [facility] [address] [place] [address] Dr. Jordan Lopez nitrogen/Creatinine [Mass ratio]11.2 mg/mgNormalThe [place] [facility] HospitalComment on above:Performed By: #### URCX #### [facility] [address] [place] [address] Dr. Jordan Blackwell Vital Signs Date TimeVital SignValuePerforming YwbrnmemmCvcgzlgz30-93-9522 08:Body kxuoyb589.72 cmOur [facility]10-[facility] 08:Body mass index (BMI) [Ratio]26.9 kg/i1MqpirzxowOur [facility] Of [facility]10-03-2024 08:Body owrtfzjjlrb97.3 [degF][facility]10-03-2024 08:Body qebwwm11.45 kgOur [facility] Of [facility]10-03-2024 08:Diastolic blood jocnliqu06 mm[Hg][facility] 01-09-2024 08:Heart lrwl490 /minOur [facility] Of [facility] 01-09-2024 08:28-0400Respiratory rate16 /minOur [facility] Of [facility] 01-09-2024 08:28-2582AaP6% (BldA) [Mass fraction]99 %[facility]10-03-2024 08:28-0400Systolic blood njfuqddr700 mm[Hg][facility]02-01-2023 15:07-0500Blood Pressure LocationMichael [facility]ILL [facility]02[facility]01-20[facility] 15:07-0500Diastolic blood rzbrosqm15 mm[Hg]Zainab NILL [facility]02-01-2023 15:07-0500Heart rate 76 /minMichael NILL [facility]02-01-2023 15:07-0500 Respiratory rate16 /minMichael NILL [facility]02-01-2023 15:07-0500Systolic blood bolztucw070 mm[Hg]Zainab NILL [facility]12-20-2022 06:01-0500Body uluxqsgtlbe37.6 [degF]MD Ash Bernstein Work Phone: [facility]12-20-2022 06:01-0500 Diastolic blood mm[Hg]MD Ash Bernstein Work Phone: [facility]12-20-2022 06:01-0500 Heart rate92 /minMD Ash Bernstein Work Phone: [facility]12-20-2022 06:01-0500 Respiratory rate17 /minMD Ash Bernstein Work Phone: [facility]12-20-2022 06:01-0500 SaO2% (BldA) [Mass fraction]98 %MD Ash Bernstein Work Phone: [facility]12-20-2022 06:01-0500 Systolic blood frrduclx032 mm[Hg]MD Ash Bernstein Work Phone: [address]12-18-2022 05:13-0500 Body txecwa31.8 kgMD Ash Caseylorene Work Phone: [phone])[address] [place], [place] 9323512-13-2022 10:40-0500 Body heoqlz021.72 cmMD Ash Bernstein Work Phone: [phone] [place], [place] 932[address]12-12-2022 12:00-0500 Body weltxxxbozq96 [degF]MD Ash Bernstein Work Phone: 1(419)[address] [place], [place] 9323512-12-2022 12:00-0500 Diastolic blood dcebjdvy92 mm[Hg]MD Ash Bernstein Work Phone: [phone])[address] [place], [place] 932[address]12-12-2022 12:00-0500 Heart swqy981 /minMD Ash Bernstein Work Phone: 1(796)[address] [place], [place] 932[address]12-12-2022 12:00-0500 Respiratory rate20 /minMD Ash Holorene Work Phone: 1(427)[address] [place], [place] 932[address]12-12-2022 12:00-0500 SaO2% (BldA) [Mass fraction]98 %MD Ash Bernstein Work Phone: [phone])[address] [place], [place] 9323512-12-2022 12:00-0500 Systolic blood gicviglz743 mm[Hg]MD Ash Bernstein Work Phone: 1([phone])[address] [place], [place] 932[address]12-12-2022 06:00-0500 Body iarmqg98.5 kgMD Ash Bernstein Work Phone: [phone])[address] [place], [place] 932[address]12-08-2022 13:58-0500 Body qpfmen724.48 cmMD Ash Bernstein Work Phone: 1(866)[address] [place], [place] 9323512-02-2022 11:00-0500 Inhaled oxygen flow rate2 L/minMD Ash Bernstein Work Phone: [phone])[address] [place], [place] 9323512-01-2022 17:52-0500 Body ldujtstesac000.8 [degF]MD Ash Bernstein Work Phone: 1(159)[address] [place], [place] 9323512-01-2022 17:52-0500 Diastolic blood abickjal46 mm[Hg]MD Ash Bernstein Work Phone: 1(525)[address] [place], [place] 932[address]12-01-2022 17:52-0500 Heart hvdj075 /minMD Cliffordlas Hoy Work Phone: 1(386)[address] [place], [place] 932[address]12-01-2022 17:52-0500 Respiratory rate22 /minMD Cliffordlas Hoy Work Phone: 1(764)[address] [place], [place] 932[address]12-01-2022 17:52-0500 SaO2% (BldA) [Mass fraction]97 %MD Ash Bernstein Work Phone: 1(184)[address] [place], [place] 932[address]12-01-2022 17:52-0500 Systolic blood lwmqdciq705 mm[Hg]MD Ash Bernstein Work Phone: 1(474)[address] [place], [place] 9323512-01-2022 13:08-0500 Body jzjshe330.72 cmMD Ash Hoy Work Phone: 1(787)[address] [place], [place] 932[address]12-01-2022 13:08-0500 Body lduuic92.3 kgMD Ash Hoy Work Phone: 1(782)[address] [place], [place] 932[address]11-30-2022 11:42-0500 Body jpjmoqyjnvk07.9 [degF]MD Ash Bernstein Work Phone: 1(057)[address] [place], [place] 932[address]11-30-2022 11:42-0500 Diastolic blood ahapnkny80 mm[Hg]MD Ash Bernstein Work Phone: 1(312)[address] [place], [place] 932[address]11-30-2022 11:42-0500 Heart ltmt850 /minMD Cliffordlas Hoy Work Phone: 1(455)[address] [place], [place] 932[address]11-30-2022 11:42-0500 Respiratory rate18 /min Ash Hoy Work Phone: 1(105)[address] [place], [place] 932[address]11-30-2022 11:42-0500 SaO2% (BldA) [Mass fraction]96 %MD Ash Bernstein Work Phone: 1(254)[address] [place], [place] 9323511-30-2022 11:42-0500 Systolic blood uqclukvs505 mm[Hg]MD Ash Bernstein Work Phone: 1(898)[address] [place], [place] 932[address]11-30-2022 06:00-0500 Body zpgejk744.1 kgMD Ash Hoy Work Phone: 1(031)[address] [place], [place] 932[address]11-30-2022 04:00-0500 Inhaled oxygen flow rate10 L/minMD Ash Hoy Work Phone: 1(535)[address] [place], [place] 9323511-29-2022 15:16-0500 Body hzercz056.72 cmMD Ash Hoy Work Phone: 1(210)[address] [place], [place] 932[address]11-29-2022 15:16-0500 Body mass index (BMI) [Ratio]32.6 kg/m2MD Ash Hoy Work Phone: 1(908)[address] [place], [place] 9323511-15-2022 13:34-0500 Body tqsixx765.72 cmMD Ash Hoy Work Phone: 1(815)[address] [place], [place] 932[address]11-15-2022 13:34-0500 Body qjftyghatyp37.8 [degF]MD Ash Bernstein Work Phone: 1(060)[address] [place], [place] 932[address]11-15-2022 13:34-0500 Body oqjhva79 kgMD Ash Peñay Work Phone: 1(483)[address] [place], [place] 932[address]11-15-2022 13:34-0500 Diastolic blood kbyhudkq07 mm[Hg]MD Ash Bernstein Work Phone: 1(092)[address] [place], [place] 932[address]11-15-2022 13:34-0500 Heart rate92 /minMD Ash Hoy Work Phone: 1(639)[address] [place], [place] 932[address]11-15-2022 13:34-0500 Respiratory rate16 /minMD Ash Hoy Work Phone: 1(676)[address] [place], [place] 932[address]11-15-2022 13:34-0500 SaO2% (BldA) [Mass fraction]98 %MD Ash Bernstein Work Phone: 1(824)[address] [place], [place] 932[address]11-15-2022 13:34-0500 Systolic blood ylqdjrvr011 mm[Hg]MD Ash Bernstein Work Phone: [facility] Encounters Encounter DateEncounter TypeCare ProviderFacilityStart: 01-09-2024 End: 63-45-2191bpujmriwynZjheqmfopOhioHealth [facility] Hospital Work Phone: Start: 01-09-2024 End: 29-04-7707Tvggarq encounter procedureNorthern [facility] Rashaun Work Phone: Start: 11-31-6492swrbxzsbajSHKFCIWC CULLENFacility:H1 Start: 07-04-2022 End: 62-62-9511ammraxjniwTI ASH BERNSTEIN .Facility:U7Gvbnt: 06-30-2022 End: 75-74-6715sekkshitqsMJ ASH BERNSTEIN .Facility:Q9Vrxnb: 02-82-1103Ntwsks outpatient visit 15 minutesThomas OlexaFPG [facility] OrthopedicsStart: 06-25-2022 End: 29-76-5968jdppcbtsnhKbebncc M HoyFacility:[facility] Start: 06-25-2022 End: 53-53-2563oxwklizgadRZ Ash Bernstein Work Phone: [phone] [place] [address] Ctr Work Phone: Start: 06-25-2022 End: 52-27-6731Qoxvhbd encounter procedureMD Ash Bernstein Work Phone: [facility]-X[facility] Start: 06-15-2022 End: 14-97-8971svjobxwhgoLmcrisj R NILLFacility:GS BellevueStart: 06-15-2022 End: 72-56-6220Niaggot encounter procedureMichael R NILL General Surgery Nill/[facility] [place] Start: 06-06-2022 End: 18-94-0886mbgiutshbiEvwjvzm R NILLFacility:CD:[id number]: 06-01-2022 End: 64-23-4642prcgphecddJG ASH HOY .Facility:B5Wghlk: 05-17-2022 End: 99-30-0680jksowqniicCP ASH HOY .Facility:D3Uoylu: 05-11-2022 End: 91-91-2747durfjnvhzaSM ASH HOY .Facility:J1Ifmnr: 78-45-5900Wbxjxb follow up visit related to original pxThomas OlexaFPG [place] OrthopedicsStart: 05-10-2022 End: 96-42-5160iotgsjrilfBccnbmq M [facility] [employer] Other Start: 05-10-2022 End: 41-72-2769Uzhqxmn encounter procedureMD Ash Hoy Work Phone: [facility] C[facility] Start: 05-09-2022 End: 93-11-9116fvtfzcegffFebjvhw R NILLFacility: BellevueStart: 05-09-2022 End: 94-58-1967Mexxtuw encounter procedureMichael R NILL General Surgery Nill/[place] [place] Start: 05-02-2022 End: 58-27-1335daplwgzpxtFO ASH HOY .Facility:B2Jkgpk: 39-73-7741dullqvzzrm Zainab NILLFacility: BellevueStart: 05-01-2022 End: 42-58-3483nttvwsjlbgZN ASH HOY .Facility:R3Lhyux: 04-27-2022 End: 26-88-4468byibsrvgmsAG ASH HOY .Facility:Y6Nsyyd: 04-26-2022 End: 24-45-6712xqbarhzrliZP ASH HOY .Facility:V6Cqawu: 04-18-2022 End: 11-34-8378cgaxohudrzPwojhn Olexa Other [facility] [employer] Other Start: 17-98-7798Luxizivnn encounterThomas OlexaFPG [facility] OrthopedicsStart: 58-77-5313pplhpuxrrqMI ASH HOY .Facility:Z1Wicaj: 03-26-2022 End: 62-38-0592timkrioxzoTbuizl Olexa Other noAll[employer] Other Start: 70-51-1160Yzvjhxhxq encounterThomas OlexaFPG [facility] OrthopedicsStart: 03-19-2022 End: 78-16-7542Yrxcmvuoqb and management of inpatientAlexandra Radha Facility:[facility] Health Centertart: 03-19-2022 End: 94-95-6270Ovmelyfllx and management of inpatientMD Ash Hoy Work Phone: [facility] RehabStart: 14-54-4984fawviakjzfQpnhrcyd:9090Start: 03-08-2022 End: 38-57-4232Icwtmoedld and management of inpatientDouglas M Hoy Facility:[facility]: 03-08-2022 End: 65-08-1401Lvlgrtlsdb and management of inpatientMD Ash Hoy Work Phone: [facility] Start: 03-06-2022 End: 62-05-8177ivweozqpksVnpszm OlexaFacility:[facility] Start: 06-92-1076Cclbeoocs encounterThomas OlexaFPG [facility] OrthopedicsStart: 03-06-2022 End: 38-61-4442Vsaflwasv to same day surgery centerMD Ash Hoy Work Phone: [facility] CampusStart: 03-06-2022 End: 56-62-6499hsgrjdjutpLJ Ash M Hoy Work Phone: [facility] Work Phone: Start: 03-05-2022 End: 24-07-1647kxmyubiepkSromss Olexa Other Nonorth [facility] [employer] Other Start: 25-21-7304Rdmbsjola encounterThomas OlexaFPG [facility]opedicsStart: 03-03-2022 End: 15-16-6997fndfxbrtxuMF ASH HOY .Facility:K1Uwhmf: 03-02-2022 End: 60-73-0932sgmkdcqnlxNqpiqm OlexaFacility:[facility] Start: 03-02-2022 End: 14-46-5504Zocaxxe encounter procedureMD Ash Hoy Work Phone: [facility]-Pre-Surgical Testing Start: 02-26-2022 End: 93-14-3028ctogpxwvwxHQ ASH HOY .Facility:K9Wdjud: 02-22-2022 End: 80-54-0649ejvqfcocccEX ASH HOY .Facility:Z7Haqlb: 02-21-2022 End: 07-48-3515yzdezghqjqFflguqm M HoyFacility:[facility] Start: 02-21-2022 End: 49-99-1030nelwkdxtwwUG Ash M Hoy Work Phone: [facility] Work Phone: Start: 02-21-2022 End: 72-71-9702Qoudleml ReferredMD Ash Hoy Work Phone: [facility] Main CampusStart: 02-20-2022 End: 71-36-0185tehanenfgfKedspl OlexaFacility:[facility] Start: 02-20-2022 End: 54-19-8043Bqwobun encounter procedureMD Ash Hoy Work Phone: [facility]urgical [facility] Start: 02-17-2022 End: 25-18-6997xksetjikdjXMZPSB JEFF .Facility:G0Yokps: 01-11-2022 End: 33-06-7829ydrqoujwurUUKIC PARKERFacility:H1 Procedures DateProcedureProcedure DetailPerforming ClinicianStart: 01-89-0035Xspmn X-ray of left shoulderMD Ash Hoy Work Phone: Start: 52-68-9889XtgkhegmasnQtycbqb NILL Start: 34-19-6436WxvdkmyqlcofosrgubarylugiyRqvzkkc NILL Start: 87-09-1886Csixy X-ray of left shoulderMD Ash Hoy Work Phone: Start: 01-40-7064Gphok X-ray of left shoulderMD Ash Hoy Work Phone: [phone]-art: 09-38-3146Smigb X-ray of left shoulderMD Ash Hoy Work Phone: Start: 75-05-7999Ceqvvnszd for occult blood in fecesMD Ash Hoy Work Phone: [phone]-art: 02-51-6747Oqlnitlb screenDouglas HoyComment on above:Order Comment: Transfuse now? Y Number of units to transfuse now? 2Result Comment: PERFORMED BY:[place] [address] [address] [place], [place] [phone] MEDICAL DIRECTORKIMBERLYN SINGER M.D.Start: 62-58-6103BW scan of gallbladderMD Ash Hoy Work Phone: Start: 23-61-2688Kwwhhdekma radiography of abdomenMD Ash Hoy Work Phone: Start: 88-62-2339Uvngmeak tomography of abdomen and pelvis with contrastMD Ash Hoy Work Phone: [phone]-art: 55-35-3725Djqzh culture for bacteria, including anaerobic screenMD Ash Hoy Work Phone: Start: 45-80-0132CAU of headMD Ash Hoy Work Phone: Start: 53-84-9512Yrxen chest X-rayMD Ash Hoy Work Phone: [phone]-art: 23-30-6842QDVF-CoV-2, Influenza & RSV (PCR)MD Ash Bernstein Work Phone: Start: 77-73-3730QI of head without contrastMD Ahs Hoy Work Phone: [phone]-art: 02-14-3035Qfoac X-ray of left shoulderMD Ash Hoy Work Phone: Start: 22-00-9415Tfkyanqbwc total arthroplasty of left shoulderMD Ash Bernstein Work Phone: [phone]: 72-75-5304LEAJ Antigen (LFIA)MD Ash Bernstein Work Phone: [phone]: 21-08-3919KSKW Antigen (LFIA)MD Ash Bernstein Work Phone: [phone] culture for bacteria, including anaerobic screen MD Ash Bernstein Work Phone: [phone] culture for bacteria, including anaerobic screen MD Ash Bernstein Work Phone: Excision of lumbar intervertebral discMichael NILL Fracture of humerus (disorder)Zainab NILL Plan of Treatment DateCare ActivityDetailAuthorStart: 29-35-1204EqdneikebOur [facility] Of [facility] Start: 64-37-2587Hksqs chemistrySamaritan North Health Centertart: 33-97-2885ShnxnqtjkSamaritan North Health Centertart: 54-22-7994Mriuardl admission [facility] Centertart: 69-25-8659Nhmosxcw to clinical quality control engineer [facility] Cent[facility]art: 45-50-8335OoyhulmitSamaritan North Health Centertart: 87-11-5233YjjzenngsSamaritan North Health Centertart: 03-12-2022 [facility] Centertart: 73-86-3801Chzbmakh to tool setter apprentice [facility] Centertart: 81-68-1971KvszdjijpSamaritan North Health Centertart: 05-85-6621Owpdtjvsok [Mass/volume] in Serum or Plasma --trough [facility] Centertart: 92-31-1252Yvrwkonsmx [Mass/volume] in Serum or Plasma --peakSamaritan North Health Centertart: 03-10-2022 [facility]ertart: 07-30-3656Hsxmwzkj to neurologist [facility] Centertart: 01-16-1473UhsqaqfwbSamaritan North Health Centertart: 86-15-6518Afyshlgmlx procedureOur [facility] Start: 79-99-7629Wsoyo chemistrySamaritan North Health Centertart: 34-03-6763Bxhqsjkt admissionSamaritan North Health Centertart: 03-08-2022 [facility] Centertart: 36-02-2009Ftfdkjwj to occupational therapistSamaritan North Health Centertart: 06-10-5040UhvhupsubSamaritan North Health Centertart: 47-61-6588Buopypoiqp total arthroplasty of left shoulderOR Shoulder Arthroplasty-Total (Left)[facility] AndersonAnion gap measurementSelect [facility] Work Phone: Bacteria identified in Blood by CultureOur Lady Of Mercy Hospital - AndersonCalcium [Mass/volume] in Serum or PlasmaJ.W. [facility] Work Phone: Carbon dioxide, total [Moles/volume] in Serum or PlasmaSelect [facility]ty [facility] Work Phone: Chloride [Moles/volume] in Serum or PlasmaJ.W. Ruby [facility] Hospital Work Phone: Creatinine and Glomerular filtration rate.predicted panel - Serum, Plasma or BloodSelect [facility]ty [facility] Work Phone: Ethanol [Mass/volume] in UrineJ.W. Ruby [facility] Hospital Work Phone: Glucose [Mass/volume] in Serum or PlasmaSelect [facility] Work Phone: Measurement of renal functionJ.W. Ruby Memorial Hospital Work Phone: Patient EducationMetabolic Encephalopathy Hypokalemia (DC) Hyponatremia (DC) Low Magnesium Level (DC)[facility] Work Phone: Patient referralSelect [facility] Work Phone: Potassium [Moles/volume] in Serum or PlasmaJ.W. Ruby Memorial Hospital Work Phone: Renal function 2000 panel - Serum or PlasmaSamaritan North Health Centerodium [Moles/volume] in Serum or PlasmaJ.W. Ruby Memorial Hospital Work Phone: Thiamine [Moles/volume] in BloodSelect [facility]ty [facility] Work Phone: Urea nitrogen [Mass/volume] in Serum or Plasma [facility] Work Phone: [facility] Immunizations Immunization DateImmunizationNotesCare NpeoszmiUaftfyhg36-85-5237Npoisfj QIV High-Dose 65YR+MD Ash Bernstein Work Phone: [facility]12-15-2022influenza virus vaccine, unspecified formulationMichael NILL [facility] Fstvaecc97-05-1813JOTYU-30 mRNARigo (Pfizer)MD Ash Bernstein Work Phone: [facility] AndersonComment on above: Result Comment: 2022-05-04: [id number]-14 Rigo Tay (Pfizer)MD Ash Bernstein Work Phone: [facility] AndersonComment on above: Result Comment: 2022-05-04: [id number]-HoS-4 (COVID-19) mRNA-1273 vaccineMichael NILL [facility] Ujpkzvcd12-41-6223NVSEP-35 mRNARigo (Pfizer)MD Ash Bernstein Work Phone: [facility] AndersonComment on above: Result Comment: 2022-05-04: [id number] Payers DatePayer CategoryPayerPolicy [id number] [id number]-[id number] [id number] [id number] 2.16.840.1.273812.3.57[id number] 2.16.840.1.725714.3.57[id number] 2.16.840.1.513552.3.57[id number] 2.16.840.1.908611.3.579.2.85872-27-4000Qegeudv3187814 2.16840.1.546560.3.57[id number] 2.840.1.137107.3.579.2.884 [id number] 2.840.1.166832.3.579.2.02021-15-3372Bxnolrh8126414 2.840.1.535426.3.579.2.24942-24-1167Kaxqtgz2491361 2.840.1.517872.3.579.2.66340-61-9056Jpouxzk3475679 2.16.840.1.134672.3.579.2.40345-34-1967Dcjworu1809031 2.840.1.115514.3.579.2.65424-56-1252Ubjqvik3395209 2.16.840.1.012767.3.579.2.97785-75-3489Sbyaqwh5601205 2.840.1.812953.3.57[id number] 2.16.840.1.928804.3.579.2.69173-60-0967Fgkfztd6969624 2.16840.1.773544.3.579.2.55476-93-8683Vshaiaq0327961 2..840.1.349794.3.579.2.61895-74-7843Skulcoj5220807 2..840.1.853413.3.579.2.76989-44-8392Vcvqzil8575289 2..840.1.195551.3.579.2.64869-67-6751Nfynmpb1810587 2.840.1.487477.3.579.2.47104-51-2496Uwrkpvv3155468 2..840.1.726505.3.579.2.82064-52-0780Gbadkdu3787725 2.16.840.1.077693.3.579.2.120RsdoewhFasmrvg76232746 2.840.1.390271.3.579.2.628Houmocs07511889 2.16840.1.934891.3.579.2.531 Gchwsoi69141994 2.16.840.1.225888.3.579.2.569Werqxdc16153644 2.16.840.1.581377.3.579.2.305Hekgzhq92377007 2.16840.1.685834.3.579.2.531 [id number] 2.840.1.045630.3.579.2.131Nvmzabv15032662 2.840.1.289564.3.579.2.698Towetpl78964059 2.840.1.663791.3.579.2.531 Social History DateTypeDetailFacilityStart: 03-06-2022 End: 42-51-7681Ryxoswj smoking status NHISEx-smoker (finding)[facility]: 15-50-7207Rrf Assigned At BirthKettering Health Main Campustart: 78-23-5888Hhjoehw smoking status NHISUnknown if ever smoked [facility]ertart: 24-03-5519Rpleeap smoking status NHIS Smoker (finding)[facility]ertart: [birth year]08-1977 End: 80-57-4093Dvvnyzf of tobacco useCleveland Clinic Children'[facility] For RehabilitationTobacarnegie [facility] [place] smoking statusNeverGeneral Surgery [place] Medical Equipment Procedure CodeEquipment CodeEquipment Original TextEquipment IdentifierDates Arthroplasty, shoulder, totalOrthopaedic cement, non-medicated ()[id number])[id number] FDAStart: 02-53-5065Oeqqiowdosrg, shoulder, totalTotal reverse shoulder prosthesis ()[id number] FDAStart: 94-78-3178Ljokxemfvuha, shoulder, totalTotal reverse shoulder prosthesis ()[id number])[id number] FDAStart: 91-92-5527Lynjoqxsferq, shoulder, totalPolymer orthopaedic cement restrictor, non-bioabsorbable, sterile ()[id number])[id number] FDAStart: 39-24-0777Rmbvrppziomk, shoulder, totalTotal reverse shoulder prosthesis ()[id number])[id number](10)22.25510 FDAStart: 46-74-4183Jdsdzuaracue, shoulder, totalTotal reverse shoulder prosthesis ()[id number])[id number](10)22.73254 FDAStart: 64-65-8663Bwdkdajwyrxb, shoulder, totalTotal reverse shoulder prosthesis ()[id number])[id number](10)21.33773 FDAStart: 09-21-4930Mxsmwjmhjkjn, shoulder, totalTotal reverse shoulder prosthesis ()[id number])167245(10)22.76385 FDAStart: 92-31-9307Cafigxtnuwsu, shoulder, totalTotal reverse shoulder prosthesis ()[id number](17)695149(69)22.19756 FDAStart: 61-05-2521Gwxkpvemprjx, shoulder, totalTotal reverse shoulder prosthesis ()[id number](17)[id number])0506 FDAStart: 77-87-2400Pacfelxehtan, shoulder, totalTotal reverse shoulder prosthesis()[id number](17)[id number])1001 FDA Start: 24-46-0652Uhhgmieafvjf, shoulder, totalTotal reverse shoulder prosthesis ()[id number](17)[id number])[id number] FDAStart: 03-06-2022 Goals DatePatient GoalDesired Activity/State Functional Status FerxIfdkhvbuitKmsjlfBhskjxjc55-33-9977Ultksrywrl StatusN/AGeneral Surgery Vpxhimjg41-41-0989Zvadqqmxnr statusPatient at [facility] Work Phone: [phone] 795-647312434167-79-0461Kbidwqncsp statusPatient is Progressing Toward [facility] Work Phone: [phone]gmsnja statusPatient is Progressing Toward [facility] Work Phone: Mental Status CbieCrerbbavvxYnyqqwFpsztzaa79-70-6825Jjxiueqha functionCognitive Status Patient at [facility] Work Phone: [phone]) 661-401412-198120-54-0770Boferysgb functionCognitive Status Patient is Progressing Toward [facility] Work Phone: [phone]cfmiyhnw functionCognitive Status Patient at [facility] Work Phone: Clinical Notes 03-06-2022 to 07-04-2022 Note Date & NpjdHwnbSzdashxz22-77-4711 NotePROCEDURE: XR FOOT RT MIN 3 VIEWS HISTORY: Hand pain ; [...] Electronically authenticated by: NAVI GARY Date: 2022-07-04 10:47[facility]03-29-2023 NotePROCEDURE: XR WRIST LT MIN 3 V HISTORY: Hand pain ; right wrist pain since falling 3 days ago COMPARISON: None. FINDINGS: BONES:No fracture, acute abnormality, or significant arthropathy. SOFT TISSUES:Mild soft tissue swelling. EFFUSION:None visible. OTHER: Negative. IMPRESSION: 1. No acute bone abnormality. Minimal degenerative joint disease. Electronically authenticated by: NAVI ABDIRAHMAN Date: 2022-07-04 10:44[facility] HospitalAxhzhtxw61-46-5510 Evaluation note* Encounter Date Diagnosis Assessment Notes Treatment Notes Treatment Clinical Notes Jun, Closed displaced fra cture of surgical neck of left humerus, unspecified [...] slowly progress increased activity as pain allows. Jun,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) [employer] Other 03-01-2023 NoteOPERATIVE NOTE OPERATION DATE: 06/06/2022 [...] in good condition. CC: Ash Bernstein M.D.[facility] HospitalNrnmguqq82-15-6285 Evaluation note* Encounter Date Diagnosis Assessment Notes Treatment Notes Treatment Clinical Notes May, Closed displaced fra cture of surgical neck of left humerus, unspecified fracture morphology, initial encounter (ICD-10 - S42.212A) May,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)Radiographs reviewed with patient as satisfactory alignment of reverse total shoulder components. Instructed on progressive motion and strengthening exercises, these were demonstrated. Provided formal therapy order today. Call with questions/concerns. [employer] Other 02-01-2023 NoteChief Complaint consultation for anemia [...] smoker, quit more t (more content not included)...[facility] HospitalComment on above:Result Comment: Electronically Signed By: GRANT CAMPBELL, Zainab Hermosillo\Date and Time Signed: 05/09/22 16:16 [id number] Evaluation note * Encounter Date Diagnosis Assessment Notes Treatment Notes Treatment Clinical Notes Mar, Displaced fracture o f proximal end of left humerus (ICD-10 - S42.A) [employer] Other 12-17-2022 Progress note Author Ryan Ibrahim [facility] March 24, 2022 11:20amNote Date/TimeDece2021 11:20[place] [address] Physiatry(Rehab) Progress Note Signed Patient: Guera Sanchez MR#: [id number] : 1955 Acct:[id number] Age/Sex: 66 / F Adm Date: 2 Loc: Room: 8C9607-9 Type: ADM IN Attending Dr: Ryan Ibrahim MD Copies to: ~ Date of Service: 03/24/2022 Subjective Subjective Narrative: Ms. Sanchez is a 66 year old female with PMH of anxiety, depression, type 2 diabetes, hyperlipidemia hypertension, IBS hypothyroidism, [place], who presents to acute inpatient rehab for [...] Suspect metabolic encephalopathy related to hyponatremia. MRI demonstratedchronic small vessel changes, findings which maybe seen with mild posterior reversible encephalopathy. Neurology recommends repeat MRI in 1.5 to 3 months to ensure resolution. EEG was also abnormal de monstrating generalized rhythmic delta activity without evidence of [...] mg 03/19/22 16:38 Bisacodyl 10 Mg Supp.Rect WV 03/19/23 16:37 DAILY PRN Constipation Citalopram Hydrobromide [...] 16:38 Docusate Enema 283 Mg/5 Ml Enema WV 03/19/23 16:37 DAILY PRN Constipation Folic Acid [...] RYAN Administration Melatonin 5 mg 03/19/22 22:00 03/23/22 20:13 Melatonin 5 Mg Tablet PO 03/19/23 [...] PO 03/19/23 21:59 Not Given QHS RYAN Sennosides 2 tab 03/20/22 12:00 Sennosides 8.6 [...] equipment to enhance the patient's a functional pentecostal Ensure adequate nutrition and hydration Sleep: Denies any issues pain: Denies any issues Discharge planning: Home with family next week I completed a substantive portion of this encounter, the medical decision makingportion of this note in its entirety, including Allied health note review, nursing note review, it architecture consultant note review,discussion with nursing and case management, and more than 50% of my time was spent on counseling and coordination of care, time spent 23 minutes Patient was personally seen by me, Dr. Ibrahim, on the day of encounter, reviewed the history and therelevant portions of the chart, including current orders, allied health and it architecture consultant notes, labs/imaging and performed freedman elements of exam and I formulated the plan of care and facilitated the medical decision making. Documented By: Ryan Ibrahim MD 03/24/22 1118 Signed By: <Electronically signed by Ryan Ibrahim MD> 03/24/22 1120 [facility] Work Phone: 1([phone]) 342-702812-17-2022 Progress note Author Ryan Ibrahim [facility] March 24, 2022 8:51amNote Date/TimeDecember 2021 12:37[place] [address] Physiatry(Rehab) Progress Note Signed Patient: Guera Sanchez MR#: [id number] : 1955 Acct:[id number] Age/Sex: 66 / F Adm Date: 2 Loc: Room: [address] [place] [address] Type: ADM IN Attending Dr: Ryan Ibrahim MD Copies to: ~ <Ronel Haney APRN - Last Filed: 03/23/22 12:46> Date of Service: 03/23/2022 Subjective <Ronel Haney APRN - Last Filed: 03/23/22 12:46> Subjective Narrative: Ms. Sanchez is a 66 year old female with PMH of anxiety, depression, type 2 diabetes, hyperlipidemia hypertension, IBS hypothyroidism, [place], who presents to acute inpatient rehab for [...] Suspect metabolic encephalopathy related to hyponatremia. MRI demonstratedchronic small vessel changes, findings which maybe seen with mild posterior reversible encephalopathy. Neurology recommends repeat MRI in 1.5 to 3 months to ensure resolution. EEG was also abnormal de monstrating generalized rhythmic delta activity without evidence of [...] FI with family. Review of Systems <Ronel Haney, REFRACTORY PRODUCTS SUPERVISOR - Last Filed: 03/23/22 12:46> Constitutional Constitutional: [...] mg 03/19/22 16:38 Bisacodyl 10 Mg Supp.Rect WV 03/19/23 16:37 DAILY PRN Constipation Citalopram Hydrobromide [...] 16:38 Docusate Enema 283 Mg/5 Ml Enema WV 03/19/23 16:37 DAILY PRN Constipation Folic Acid [...] mg DAILY RYAN Administration Assessment/Plan <Ronel Haney, REFRACTORY PRODUCTS SUPERVISOR - Last Filed: 03/23/22 12:46> Assessment/Plan (1) [...] equipment to enhance the patient's a functional pentecostal Ensure adequate nutrition and hydration Sleep: Denies any issues pain: Denies any issues Discharge planning: Home with family in 7 to 10 days. I spent greater than 15 minutes for services, including kizz-ol-mkad encounter with the patient, discussion of the case, plan of care, and exam; and ilqpeem-xe-hevm activities, such as reviewing pertinent it architecture consultant documentation, recent therapy notes, laboratory and radiology studies, and discussion of casewith care team including physician, nursing, case preparer and liner, and therapists. More than 50 % of [...] equipment to enhance the patient's a functional pentecostal Ensure adequate nutrition and hydration Sleep: Denies any issues pain: Denies any issues Discharge planning: Home with family next week I spent greater than 15 minutes for services, including nqhg-mg-eyvj encounter with the patient, discussion of the case, plan of care, and exam; and pyqqbog-vc-vraq activities, such as reviewing pertinent it architecture consultant documentation, recent therapy notes, laboratory and radiology studies, and discussion of case with care team including physician, nursing, case preparer and liner, and therapists. More than 50 % of time was spent on patient/family counseling or coordination ofcare. Plan: I completed a substantive portion of this encounter, the medical decision makingportion of this note in its entirety, including Allied health note review, nursing note review, it architecture consultant note review,discussion with nursing and case management, and more than 50% of my time was spent on counseling and coordination of care, time spent 17 minutes Patient was personally seen by me, Dr. Ibrahim, on the day of encounter, reviewed the history and therelevant portions of the chart, including current orders, allied health and it architecture consultant notes, labs/imaging and performed freedman elements of exam and I formulated the plan of care and facilitated the medical decision making. Blood sugar control improved as well. Likely to home 03/27 Nearly standby assist independent. Documented By: Ronel Haney APRN 03/23/22 1 235 Signed By: <Electronically signed by HEMANTH Haney> 03/23/22 1246 <Electronically signed by Ryan Ibrahim MD> 03/24/22 4100 [facility] Work Phone: 1(121) 813-325912-14-2022 Progress note Author Ryan Ibrahim [facility] March 21, 2022 3:43pmNote Date/TimeDece2021 11:53[place] [address] Physiatry(Rehab) Progress Note Signed Patient: Guera Sanchez MR#: [id number] : 1955 Acct:[id number] Age/Sex: 66 / F Adm Date: 2 Loc: Room: [address] [place] [address] Type: ADM IN Attending Dr: Ryan Ibrahim MD Copies to: ~ <Ronel Haney APRN - Last Filed: 03/21/22 12:19> Date of Service: 03/21/2022 Subjective <Ronel Haney APRN - Last Filed: 03/21/22 12:19> Subjective Narrative: Ms. Sanchez is a 66 year old female with PMH of anxiety, depression, type 2 diabetes, hyperlipidemia hypertension, IBS hypothyroidism, [place], who presents to acute inpatient rehab for [...] Suspect metabolic encephalopathy related to hyponatremia. MRI demonstratedchronic small vessel changes, findings which maybe seen with mild posterior reversible encephalopathy. Neurology recommends repeat MRI in 1.5 to 3 months to ensure resolution. EEG was also abnormal de monstrating generalized rhythmic delta activity without evidence of [...] contact-guard assist. Required standby to contact-guard assist forbed mobility and transfers. Recent blood work reviewed. [...] Color Urine Appearance Urine pH Ur Specific Wheeler Urine Protein Urine Glucose (UA) Urine Ketones [...] Appearance Clear Urine pH 7.0 Ur Specific Wheeler 1.005 Urine Protein Negative Urine Glucose (UA) [...] Color Urine Appearance Urine pH Ur Specific Wheeler Urine Protein Urine Glucose (UA) Urine Ketones [...] mg 03/19/22 16:38 Bisacodyl 10 Mg Supp.Rect WV 03/19/23 16:37 DAILY PRN Constipation Citalopram Hydrobromide [...] 16:38 Docusate Enema 283 Mg/5 Ml Enema WV 03/19/23 16:37 DAILY PRN Constipation Folic Acid [...] 08:59 100 mg DAILY RYAN Administration Assessment/Plan <Ronle Haney APRN - Last Filed: 03/21/22 12:19> Assessment/Plan (1) [...] equipment to enhance the patient's a functional pentecostal Ensure adequate nutrition and hydration Sleep: Denies any issues pain: Denies any issues Discharge planning: Home with family in 7 to 10 days. I spent greater than 15 minutes for services, including qycg-zx-ycho encounter with the patient, discussion of the case, plan of care, and exam; and vqsbgce-jg-pcuj activities, such as reviewing pertinent it architecture consultant documentation, recent therapy notes, laboratory and radiology studies, and discussion of case with care team including physician, nursing, case preparer and liner, and therapists. More than 50 % of [...] Allied health note review, nursing note review, it architecture consultant note review,discussion with nursing and case management, and more than 50% of my time was spent on counseling and coordination of care, time spent 21 minutes Patient was personally seen by me, Dr. Ibrahim, on the day of encounter, reviewed the history and therelevant portions of the chart, including current orders, allied health and it architecture consultant notes, labs/imaging and performed freedman elements of exam and I formulated the plan of care and facilitated the medical decision making. Documented By: Ronel Haney APRN 03/21/22 1 143 Signed By: <Electronically signed by HEMANTH Haney> 03/21/22 1219 <Electronically signed by Ryan Ibrahim MD> 03/21/22 1543 [facility] Work Phone: 1(238) 866-111512-14-2022 Consult note Author Jan Wood [facility] March 21, 2022 12:43pmNote Date/TimeDecember 2021 3:12[place] [address] Hospitalist Consult Note Signed Patient: Guera Sanchez MR#: [id number] : 1955 Acct:[id number] Age/Sex: 66 / F Adm Date: 2 Loc: Room: [address] [place] [address] Type: ADM IN Attending Dr: Ryan Ibrahim MD Copies to: MD Ash Tran MD Joseph Riley, MD Linda Obika, REFRACTORY PRODUCTS SUPERVISOR~ HPI DATE OF CONSULTATION: 03/20/22 REQUESTING PROVIDER: [...] status. Upon arrival to the ER she wasunable to answer any questions her EKG showed sinus tachycardia with a heart rate of 128 bpm and a prolonged QTC of 572. She was also noted to have electrolyte derangements with sodium 122, potassium2.5 and magnesium 0.8. While she was inthe emergency department she had to runs of torsades administered 3 g of magnesium with resolution. Her drug screen was positive for marijuana. His CBCwas elevated at 12.8 and she was started on broad-spectrum antibiotics with Zosyn and vancomycin. Head CT wasnonacute for any acute intracranial process. Chest x-ray did not show any acute cardiopulmonary abnormalities. Urinalysis was noninfectious. She was administered 3% saline for hyponatremia and 40 mEqof potassium for hypokalemia. She was also very combative in the ER and had to be put on a Precedexdrip and admitted to the ICU. Neurology was consulted. During her hospital stay she was evaluated by neurology and an MRI of the brain showed chronic vessel ischemic changes with findings of possible mild posterior reversible encephalopathy. Initial blood cultures / grew gram-positive bacilli which was thought to be a contaminant with discontinuationof antibiotics on 03/29. Second set of blood cultures from 03/11/2022 did not grow anything to date.If video EEG showed generalized rhythmic delta activity. [...] who recommended PPIs 40 mg twice daily j6xyoeb, avoid NSAIDs and serial H&H. He is to for guaiac was positive and her aspirin was put onhold. Her hemoglobin was stable throughout hospital stay and at discharge. She was also seen and elba luated by physical and Occupational Therapy and recommended [...] breath. No abdominal pain, nausea vomiting or diarrhea.No urinary symptoms, no headaches or dizziness, afebrile. Vital signs reviewed, heart rate slightlytachycardic. Sodium lower than yesterday at129. Asymptomatic we will continue to monitor. Review of Systems Review of Systems Review of systems: 10 point review of systems obtained, negative unless noted in the HPI below [facility] Attestation Statement: The following information [...] tablet 10 mg PO DAILY #0 tabs 03/18/22 [Rx Confirmed 03/19/22] folic acid 1 mg [...] mg 03/19/22 16:38 Bisacodyl 10 Mg Supp.Rect WV 03/19/23 16:37 DAILY PRN Constipation Citalopram Hydrobromide [...] 16:38 Docusate Enema 283 Mg/5 Ml Enema WV 03/19/23 16:37 DAILY PRN Constipation Folic Acid [...] Tablet PO 03/20/23 08:59 300 mg DAILY YRAN Administration Lactulose 30 gm 03/19/22 16:38 Lactulose [...] 850 Mg Tablet PO 03/20/23 16:59 BID.WITH.MEALS RYAN Nicotine 1 each 03/20/22 09:00 03/20/22 08:18 [...] % (Auto) N/A, Lymph % (Auto) N/A, [place] % (Auto) N/A, Eos % (Auto) N/A,Baso % (Auto) N/A, Nucleat RBC Rel Count N/A, Neut # (Auto) N/A, Lymph # (Auto) N/A, [place] # (Auto) N/A, Eos # (Auto) N/A, [...] signed by Jan Wood MD> 03/21/22 1243 [facility] Work Phone: 1(934) 901-631312-13-2022 History and physical note Author Ryan Ibrahim [facility] March 20, 2022 6:45pmNote Date/TimeDecember 2021 2:32[place] [address] Physiatry (Rehab) H&P Signed Patient: Guera Sanchez MR#: [id number] : 1955 Acct:[id number] Age/Sex: 66 / F Adm Date: 2 Loc: Room: 9K3815-2 Type: ADM IN Attending Dr: Ryan Ibrahim MD Copies to: MD Ronel De Souza APRN Joseph Riley, MD~ <Ronel Haney APRN - Last Filed: 03/19/22 15:30> Date of Service: 03/19/2022 HPI <Ronel Haney APRN - Last Filed: 03/19/22 15:30> History of Present Illness: Ms. Sanchez is a 66 year old female with PMH of anxiety, depression, type 2 diabetes, hyperlipidemia hypertension, IBS hypothyroidism, [place], who presents to acute inpatient rehab for [...] Suspect metabolic encephalopathy related to hyponatremia. MRI demonstratedchronic small vessel changes, findings which maybe seen [...] 14 days #28 tabs 03/18/22[Rx] Exam <Ronel Haney, REFRACTORY PRODUCTS SUPERVISOR - Last Filed: 03/19/22 15:30> Physical Exam [...] 2 weeks Expected Discharge Destination: Home Rehabilitation [facility]: 02.1 Primary Diagnosis: Metabolic encephalopathy To have patient become more independent and to return home. Medical/ Functional Prognosis: Good Anticipated Functional Outcomes/Goals and Interventions: 1.Therapy Functional Outcome/Goal: Anticipate independent bed mobility Anticipated interventions: Physician management, PT, OT, RV BODY MECHANIC, , Dietitian, Rehab Nursing, Case management 2. Therapy Functional Outcome/Goal: Anticipate independent transfers Anticipated interventions: Physician management, PT, OT, RV BODY MECHANIC, Case management, Dietitian, Rehab Nursing 3. Therapy Functional Outcome/Goal: Anticipate independent ambulation Anticipated interventions: Physician management, PT, OT, RV BODY MECHANIC Case management, Dietitian, Rehab Nursing 4.Therapy Functional Outcome/Goal: Anticipate independent self care Anticipated interventions: Physician management, PT, OT, RV BODY MECHANIC, Case management, Dietitian, Rehab Nursing 5.Therapy Functional Outcome/Goal: Anticipate independent functional communication and swallowing Anticipated interventions: Physician management, PT, OT, RV BODY MECHANIC, Case management, Dietitian, Rehab Nursing Required Therapy PT: 1 hour per day at least 5 days per week with additional therapy on as needed basis. Comments: PT to improve pt's strength, endurance, bed mobility, transfers (sit- stand), standing balance, gait quality on level surfaces [...] and functional mobility and to evaluate for adaptiveand assistive devices. Will work to improve pt's endurance and educate pt on fall prevention and energy conservation techniques-pacing strategies and proper breathing techniques during functional tasks. Speech/Language - 1 hour per day at least 5 days per week with additional therapy on as needed basis. Comments: RV BODY MECHANIC to evaluate and treat patient?s cognition, language and communication skills, assess swallow function. Other: Dietitian, Rehab nursing, Wound, P&O, Neuropsychology as needed RATIONALE FOR IRF ADMISSION: Patient has both medical and functional complexities that require 24 hour daily monitoring and intervention from Inventory Technician as well as other consulting physicians including internal medicine as well as 24 hour daily caseworker protective services nursing - for medical safe / optimal manageme nt. Patient requires interdisciplinary therapy team rehabilitation care including OT, PT, RV BODY MECHANIC, SW, Psychology, Rehab Nursing, requires and can [...] hypokalemic and hyponatremic requiring 3% saline infusion. Developedacute duodenitis, questionable small bowel obstruction which was managed with NG tube. * Monitor electrolyte levels. Sodium was critically low at 122 on admission, improving, most recently 133 * Hemoglobin low throughout admission, which initially he was thought to be dilutional from intravenous fluid administration. She did end up dropping as low as 7.0. Received 2 units of PRBCs. Lovenoxand aspirin were placed on hold. H&H are [...] equipment to enhance the patient's a functional pentecostal Ensure adequate nutrition and hydration Sleep: Denies any issues pain: Denies any issues Discharge planning: Home with family in 7 to 10 days. I spent greater than 15 minutes for services, including blad-xy-cbzp encounter with the patient, discussion of the case, plan of care, and exam; and qmkxwbr-fe-vlci activities, such as reviewing pertinent it architecture consultant documentation, recent therapy notes, laboratory and radiology studies, and discussion of case with care team including physician, nursing, case preparer and liner, and therapists. More than 50 % of [...] Allied health note review, nursing note review, it architecture consultant note review, discussion with nursing and case management, and more than 50% of my time was spent on counseling and coordination of care, time spent 45 minutes Patient was personally seen by me, Dr. Ibrahim, on the day of encounter, reviewed the history and therelevant portions of the chart, including current orders, allied health and it architecture consultant notes, labs/imaging and performed freedman elements of exam and I formulated the plan of care and facilitated the medical decision making. Documented By: Ronel Haney APRN 03/19/22 1 423 Signed By: <Electronically signed by Ryan Ibrahim MD> 03/20/22 5916 [facility] Work Phone: 1(624) 747-602612-11-2022 Progress note Author Wilian Pearson [facility] March 18, 2022 3:09pmNote Date/TimeDecemb2021 2:38pm[place] [address] Hospitalist Progress Note Signed Patient: Guera Sanchez MR#: [id number] : 1955 Acct:[id number] Age/Sex: 66 / F Adm Date: 2 Loc: Room: [address] [place] [address] Type: ADM IN Attending Dr: Wilian Pearson MD Copies to: ~ Date of Service: 03/18/2022 Subjective Subjective Narrative: Patient seen and assessed at bedside. She is sitting in her chair and looks comfortable. She statesshe feels very well today. Notes no new [...] needs. Plan for discharge to here at [facility] when bed is available Documented By: Wilian Pearson MD 2 1434 Signed By: <Electronically signed by Wilian Pearson MD> 03/18/22 1509 [facility] Work Phone: 1(882) 903-553512-10-2022 Progress note Author Wilian Pearson [facility] March 17, 2022 4:59pmNote Date/TimeDece2021 4:37pm[place] [address] Hospitalist Progress Note Signed Patient: Guera Sanchez MR#: [id number] : 1955 Acct:[id number] Age/Sex: 66 / F Adm Date: 2 Loc: Room: [address] [place] [address] Type: ADM IN Attending Dr: Wilian Pearson [...] QHS RYAN Nicotine 1 each 03/08/22 19:30 12/10/22 09:37 Nicotine Patch 21 Mg/24hr 1 Each [...] plan for hopeful DC to SNF around [place], [place]. With her current care needs, debility, recent left shoulder surgery, diarrhea, memory concerns of late- she wouldbest be served at acute inpatient rehab given her therapy needs. Plan for discharge to here at [facility] when bed is available Documented By: Wilian Pearson MD 2 6884 Signed By: <Electronically signed by Wilian Pearson MD> 03/17/22 0157 [facility] Work Phone: 1(141) 804-350712-09-2022 Progress note Author Wilian Pearson [facility] March 16, 2022 9:25pmNote Date/TimeDecemb2021 11:[address] [address] Hospitalist Progress Note Signed Patient: Guera Sanchez MR#: [id number] : 1955 Acct:[id number] Age/Sex: 66 / F Adm Date: 2 Loc: Room: [address] [place] [address] Type: ADM IN Attending Dr: Wilian Pearson [...] 1,000 Ml IV 03/11/23 09:14 Not Given .[id number] RYAN Ertapenem 1 gm in 100 mls [...] plan for hopeful DC to SNF around [facility]. With her current care needs, debility, recent left shoulder surgery, diarrhea, memory concerns of late- she would best be served at SNF- this could be local or in [place]. If the daughter chooses to take her home after rehab at SNF this could be further addressed with ongoing improvement Attending attestation: Patient was personally seen by me on the day of encounter. I reviewed her history and performed keyelements of exam and formulated the plan of care and confirmed the nurse practitioner's note above. Documented By: TANIYA Adames 2 1153 Signed By: <Electronically signed by HAILEE-JORDEN Hull> 03/16/22 1258 <Electronically signed by Wilian Pearson MD> 03/16/222124 [facility] Work Phone: 1(592) 618-619412-09-2022 Progress note Author Marcelino Townsend [facility] March 16, 2022 9:43amNote Date/TimeDecemb2021 8:36[place] [address] Neurology Progress Note Signed with Addenda Patient: Guera Sanchez MR#: [id number] : 1955 Acct:[id number] Age/Sex: 66 / F Adm Date: 2 Loc: Room: [address] [place] [address] Type: ADM IN Attending Dr: Wilian Pearson [...] 4 extremities and symmetric CEREBELLAR EXAM: * Xnqutx-zc-fygw and alternating movements are intact and normal in the right upper extremity.? Alternating movements intact and normal on the left.? Unable to test ppfjwb-uu-rius * Cmtb-hn-thtp and alternating movements are intact and normal [...] of the mental status changes. No definitive seizure- like activity has been identified clinically. Overnight 24-hour [...] consultation. Documented By: Marcelino Townsend DO 2 7839 Signed By: <Electronically signed by Marcelino Townsend DO> 03/16/22 0836 [facility] Work Phone: 1(676) 191-295412-08-2022 Progress note Author Wilian Pearson [facility] March 15, 2022 7:40pmNote Date/TimeDecember 2021 11:00[place] [address] Hospitalist Progress Note Signed Patient: Guera Sanchez MR#: [id number] : 1955 Acct:[id number] Age/Sex: 66 / F Adm Date: 2 Loc: Room: [address] [place] [address] Type: ADM IN Attending Dr: Wilian Pearson [...] 1,000 Ml IV 03/11/23 09:14 Not Given .[id number] RYAN Ertapenem 1 gm in 100 mls [...] 2 1059 Signed By: <Electronically signed by HAILEE-JORDEN Hull> 03/15/22 1607 <Electronically signed by Wilian Pearson MD> 03/15/221939 [facility] Work Phone: 1(208) 929-476912-08-2022 Progress note Author Marcelino Townsend [facility] March 15, 2022 4:25pmNote Date/TimeDecemb2021 9:[place] [address] Neurology Progress Note Signed Patient: Guera Sanchez MR#: [id number] : 1955 Acct:[id number] Age/Sex: 66 / F Adm Date: 2 Loc: Room: 2C4536-1 Type: ADM IN Attending Dr: Wilian Pearson [...] 4 extremities and symmetric CEREBELLAR EXAM: * Yjqdds-ci-xwjq and alternating movements are intact and normal in the right upper extremity. Alternating movements intact and normal on the left. Unable to test ltiksc-tj-wsxc * Cpmk-oi-tnrg and alternating movements are intact and normal [...] have been persistently elevated in the 150s [id number]. Her peak blood pressure here was 192/86. Her encephalopathy initially thought to be metabolic related to her hyponatremia or infection-related given she presented with fever but there would be no clear infectious source here. Sulywialirio need outpatient neurology follow-up. She will likely need an MRI in 1.5 to3 months to ensure the PRES changes have resolved. Interval history: Patient states she is doing well. Still with memory lapse. No overt confusion. Nofocal neurological symptoms. 1. CT scan of the [...] admission. Repeat blood cultures negative at 5 days.Initial blood culture showed diphtheroids and gram-negative bacilli. 12. Urine tox positive for THC. She states she does medicinal THC and has doneso for years. Alcohollevel less than 5 13. COVID-19 negative 14. Hypertension still persistent. Ranging in the 140s to 180s systolic. Willdiscuss BP meds with the hospitalist MARINE STRUCTURAL WELDER. It is my impression that the patient [...] I was present for the freedman parts ofclinical decision making. I agree with the Nurse Practitioner's note other than as stated by me. Code(s): R41.82 - Altered mental status, unspecified Status: Acute Documented By: DOUG Ordonez 0915 Signed By: <Electronically signed by DOUG Judd> 03/15/22 1115 <Electronically signed by Marcelino Townsend DO> 03/15/22 1625 [facility] Work Phone: [phone] Progress note Author Marcelino Townsend [facility] March 14, 2022 4:15pmNote Date/TimeDece2021 11:36[place] [address] Neurology Progress Note Signed Patient: Guera Sanchez MR#: [id number] : 1955 Acct:[id number] Age/Sex: 66 / F Adm Date: 2 Loc: 4 Room: [address] [place] [address] Type: ADM IN Attending Dr: Wilian Pearson [...] 4 extremities and symmetric CEREBELLAR EXAM: * Xqugrn-tc-kvuy and alternating movements are intact and normal in the right upper extremity. Alternating movements intact and normal on the left. Unable to test rqsyzb-ro-ejhc * Qwnh-fn-avgg and alternating movements are intact and normal [...] have been persistently elevated in the 150s [id number]. Her peak blood pressure here was 192/86. [...] The last clear memory she has is walkingdeploy with her friends in November. She bought [...] admission. Repeat blood cultures negative at 5 days.Initial blood culture showed diphtheroids and gram-negative bacilli. 12. Urine tox positive for THC. She states she does medicinal THC and has doneso for years. Alcohollevel less than 5 13. COVID-19 negative The [...] pressure with goal of a systolic blood pressureless than 130 at all times. Otherwise, extensive neurologic work-up has largely been completed. Patient seems to [...] I was present for the freedman parts ofclinical decision making. I agree with the Nurse Practitioner's note other than as stated by me. Code(s): R41.82 - Altered mental status, unspecified Status: Acute Documented By: DOUG Ordonez 1126 Signed By: <Electronically signed by DOUG Judd> 03/14/22 1140 <Electronically signed by Marcelino Townsend DO> 03/14/22 1618 [facility] Work Phone: 1(433) 641-496812-07-2022 Progress note Author Wilian Pearson [facility] March 14, 2022 2:53pmNote Date/TimeDece2021 1:01pm[place] [address] Hospitalist Progress Note Signed Patient: Guera Sanchez MR#: [id number] : 1955 Acct:[id number] Age/Sex: 66 / F Adm Date: 2 Loc: Room: [address] [place] [address] Type: ADM IN Attending Dr: Wilian Pearson [...] Tablet PO 03/11/23 09:04 5 mg DAILY [facility] Administration Aspirin 81 mg 03/11/22 09:35 03/12/22 13:54 Aspirin 81 Mg Tab.Chew PO 03/11/23 09:34 Not Given DAILY RYAN Atorvastatin Calcium 10 mg 03/10/22 09:00 03/12/22 13:54 Atorvastatin 10 Mg Tablet PO 03/10/23 08:59 Not Given QAM [facility] Citalopram Hydrobromide 80 mg 03/10/22 09:00 03/14/22 09:29 Citalopram 40 Mg Tablet PO 03/10/23 08:59 80 mg QAM [facility] Administration Dextrose 0 gm 03/08/22 18:44 Dextrose 20 % In Water 10 Gm/50 Ml Syringe IV-PUSH 03/08/23 18:43 PRN PRN Hypoglycemia Folic Acid 1 mg 03/11/22 09:45 03/12/22 13:54 Folic Acid 1 Mg Tablet PO 03/11/23 09:44 Not Given DAILY [facility] Glucose 0 gm 03/08/22 18:44 Dextrose 40% [...] 1,000 Ml IV 03/11/23 09:14 75 mls/hr .[id number] RYAN Administration Ertapenem 1 gm in 100 [...] encounter. I reviewed her history and performed keyelements of exam and formulated the plan of care and confirmed the nurse practitioner's note above.Plan of care reflects my direct input. Documented By: TANIYA Adames 2 1300 Signed By: <Electronically signed by ANP-BC Nicolasa Hull> 03/14/22 1430 <Electronically signed by Wilian Pearson MD> 03/14/22 1453 [facility] Work Phone: 1(591) 351-148212-07-2022 Progress note Author Skyler Ro [facility] March 14, 2022 1:34pmNote Date/TimeDece2021 1:34[place] [address] Gastroenterology PN Signed Patient: Guera Sanchez MR#: [id number] : 1955 Acct:[id number] Age/Sex: 66 / F Adm Date: 2 Loc: 4N Room: 0D0628-3 Type: ADM IN Attending Dr: Wilian Pearson [...] 1,000 Ml IV 03/11/23 09:14 75 mls/hr .P70B63V RYAN Administration Ertapenem 1 gm in 100 [...] a GI standpoint. I will sign off atthis time. Documented By: Skyler Ro MD 03/14/221331 Signed By: <Electronically signed by Skyler Ro MD> 03/14/224 [facility] Work Phone: 1(969) 395-368112-06-2022 Progress note Author Wilian Pearson [facility] March 13, 2022 7:26pmNote Date/TimeDece2021 1:49pm[place] [address] Hospitalist Progress Note Signed Patient: Guera Sanchez MR#: [id number] : 1955 Acct:[id number] Age/Sex: 66 / F Adm Date: 2 Loc: Room: [address] [place] [address] Type: ADM IN Attending Dr: Wilian Pearson [...] Tablet PO 03/10/23 08:59 Not Given QAM [facility] Citalopram Hydrobromide 80 mg 03/10/22 09:00 03/13/22 08:20 Citalopram 40 Mg Tablet PO 03/10/23 08:59 80 mg QAM [facility] Administration Dextrose 0 gm 03/08/22 18:44 Dextrose [...] 1,000 Ml IV 03/11/23 09:14 75 mls/hr .[id number] RYAN Administration Ertapenem 1 gm in 100 [...] encounter. I reviewed her history and performed keyelements of exam and formulated the plan of care and confirmed the nurse practitioner's note above.Plan of care reflects my direct input Documented By: HAILEE Adames-JORDEN 2 1349 Signed By: <Electronically signed by ANP-BC Nicolasa Hull> 03/13/22 1451 <Electronically signed by Wilian Pearson MD> 03/13/22 [facility] Work Phone: 1(662) 452-100812-06-2022 Progress note Author Skyler Ro [facility] March 13, 2022 1:55pmNote Date/TimeDece2021 9:35[place] [address] Gastroenterology PN Signed Patient: Guera Sanchez MR#: [id number] : 1955 Acct:[id number] Age/Sex: 66 / F Adm Date: 2 Loc: 4N Room: 7J3185-3 Type: ADM IN Attending Dr: Wilian Pearson [...] 1,000 Ml IV 03/11/23 09:14 75 mls/hr .[id number] RYAN Administration Ertapenem 1 gm in 100 [...] with Documented By: Skyler Ro MD 03/13/22 0963 Signed By: <Electronically signed by Skyler Ro MD> 03/13/22 6553 [facility] Work Phone: 1(148) 889-304812-05-2022 Progress note Author Wilian Pearson [facility] March 12, 2022 6:51pmNote Date/TimeDece2021 11:15[place] [address] Hospitalist Progress Note Signed Patient: Guera Sanchez MR#: [id number] : 1955 Acct:[id number] Age/Sex: 66 / F Adm Date: 2 Loc: 4N Room: [address] [place] [address] Type: ADM IN Attending Dr: Wilian Pearson [...] hypoactive, obese, NG to suction- bile drainage, lweis dark richie urine no edema BLE, calves [...] 1,000 Ml IV 03/11/23 09:14 75 mls/hr .[id number] RYAN Administration Ertapenem 1 gm in 100 [...] encounter. I reviewed her history and performed keyelements of exam and formulated the plan of care and confirmed the nurse practitioners note above. Plan of care reflects my direct input. Documented By: TANIYA Adames 2 1115 Signed By: <Electronically signed by ANP-JORDEN Hull> 03/12/22 1329 <Electronically signed by Wilian Pearson MD> 03/12/22 9351 [facility] Work Phone: 1(414) 563-149812-05-2022 Consult note Author Skyler Ro [facility] March 12, 2022 3:43pmNote Date/TimeD2021 3:35pm[place] [address] Gastroenterology Consult Note Signed with Addenda Patient: Guera Sanchez MR#: [id number] : 1955 Acct:[id number] Age/Sex: 66 / F Adm Date: 2 Loc: Room: [address] [place] [address] Type: ADM IN Attending Dr: Wilian Pearson MD Copies to: MD Ash Chavez MD Frederick E Doamekpor, MD~ ADDENDUM1 Addendum: Its also possible she has developed some degree ileus in the post- operative setting whichcould be worse ongoing narcotic use. Recommend OOB [...] mental status who I am consulted for nausea,abdominal pain, abnormal CT findings. She recently had [...] MPV Neut % (Auto) Lymph % (Auto) [place]pe[place] % (Auto) Eos % (Auto) Baso % (Auto) Nucleat RBC Rel Count Neut # (Auto) Lymph # (Auto) [place] # (Auto) Eos # (Auto) Baso # [...] % (Auto) N/A Lymph % (Auto) N/A [place] % (Auto) N/A Eos % (Auto) N/A Baso % (Auto) N/A Nucleat RBC Rel Count N/A Neut # (Auto) N/A Lymph # (Auto) N/A [place]wa # (Auto) N/A Eos # (Auto) N/A [...] Type Blood Type Recheck Antibody Screen Crossmatch ([facility]) 03/12/22 03/12/22 03/12/22 08:15 09:24 09:28 Corrected WBC Uncorrected WBC Count RBC Hgb Hct MCV MCH MCHC RDW Plt Count MPV Neut % (Auto) Lymph % (Auto) [place] % (Auto) Eos % (Auto) Baso % (Auto) Nucleat RBC Rel Count Neut # (Auto) Lymph # (Auto) [place] # (Auto) Eos # (Auto) Baso # [...] Blood Type Recheck Antibody Screen Negative Crossmatch ([facility]) See Detail 03/12/22 03/12/22 10:04 11:51 Corrected WBC Uncorrected WBC Count RBC Hgb Hct MCV MCH MCHC RDW Plt Count MPV Neut % (Auto) Lymph % (Auto) [place] % (Auto) Eos % (Auto) Baso % (Auto) Nucleat RBC Rel Count Neut # (Auto) Lymph # (Auto) [place] # (Auto) Eos # (Auto) Baso # [...] and has developed duodenitis. Her dilated proximal duodenumwould be an extremely atypical spot for an SBO or partial SBO and the remainder of her bowel lookedunremarkable can discontinue her NG tube. There was [...] signed by Skyler Ro MD> 03/12/22 1541 [facility] Work Phone: 1(891) 879-537312-05-2022 Progress note Author Rachel Persaud [facility] March 11, 2022 11:14pmNote Date/TimeDece2021 11:14pm[address] [address] Event Note Signed Patient: Guera Sanchez MR#: [id number] : 1955 Acct:[id number] Age/Sex: 66 / F Adm Date: 2 Loc: Room: [address] [place] [address] Type: ADM IN Attending Dr: Deangelo Kulkarni [...] with inflammatory changes adjacent to duodenum which couldbe due to duodenitis. Cholelithiasis and findings suspicion of acute cholecystitis. On reevaluationafter coming back from CT scan she appears [...] 30 mins Documented By: Rachel Persaud MD 03/11/22 9572 Signed By: <Electronically signed by Rachel Persaud MD> 03/11/22 3661 [facility] Work Phone: 1(372) 450-148212-04-2022 Progress note Author Deangelo Kulkarni [facility] March 11, 2022 3:09pmNote Date/TimeDece2021 9:31am[address] [address] Hospitalist Progress Note Signed Patient: Guera Sanchez MR#: [id number] : 1955 Acct:[id number] Age/Sex: 66 / F Adm Date: 2 Loc: 4N Room: 2E4109-0 Type: ADM IN Attending Dr: Deangelo Kulkarni [...] 5 Mg Tablet PO 03/11/23 09:04 DAILY RAYN Atorvastatin Calcium 10 mg 03/10/22 09:00 03/11/22 [...] Sodium Chloride 1,000 Ml IV 03/11/23 09:14 .[id number] RYAN Insulin Aspart 0 units 03/08/22 22:00 [...] MD Documented By: Denice Buckner APRN 03/11/22 0929 Signed By: <Electronically signed by HEMANTH Buckner> 03/11/22 1456 <Electronically signed by Deangelo Kulkarni MD> 03/11/22 1509 [facility] Work Phone: 1(884) 970-516612-04-2022 Progress note Author Javan Boothe [facility] March 11, 2022 11:14amNote Date/TimeDece2021 11:14[place] [address] Neurology Progress Note Signed Patient: Guera Sanchez MR#: [id number] : 1955 Acct:[id number] Age/Sex: 66 / F Adm Date: 2 Loc: Room: 1I7637-7 Type: ADM IN Attending Dr: Deangelo Kulkarni [...] is alert. Today she is oriented to [facility], March. Attentionnow seems normal. Speech is fluent and nondysarthric. Pupils are equal and reactive Ocular motilityis full. No nystagmus. Facial sensation is normal. Hearing is normal. Facial strength is normal. Tongue is midline. Muscle bulk,tone, and strength are normal aside from the left upper extremity whichwas not tested due to the arm being [...] signs/symptoms and no MRI findings concerning for encephalitisor meningitis. PLAN: She continues to improve and might be at her baseline. No other recommendationsat this time. She will need outpatient neurology follow-up. She will likely need an MRI in 1.5 to 3 months to ensure thePRES changes have resolved. Code(s): R41.82 - Altered mental status, unspecified Status: Acute Documented By: Javan Boothe DO 03/11/22 1111 Signed By: <Electronically signed by Javan Boothe DO> 03/11/22 1114 [facility] Work Phone: 1(448) 521-846412-03-2022 Progress note Author Deangelo Kulkarni [facility] March 10, 2022 1:28pmNote Date/TimeDece2021 10:49[place] [address] Hospitalist Progress Note Signed Patient: Guera Sanchez MR#: [id number] : 1955 Acct:[id number] Age/Sex: 66 / F Adm Date: 2 Loc: 4N Room: [address] [place] [address] Type: ADM IN Attending Dr: Deangelo Kulkarni MD Copies to: ~ Date of Service: 03/10/2022 Subjective Subjective Narrative: Patient seen and examined at bedside, awake and alert, oriented to time and place and able to recall her birthday and the circumstances of what brought her to the hospital. She has no fever, chills,,no chest pain, no shortness of breath. Exam [...] Culture - Preliminary No Growth 1 Day 12/01/22 14:33 Blood - Right Hand Blood Culture [...] 1,000 Ml IV 03/08/23 17:59 75 mls/hr .[id number] RYAN Administration Folic Acid 1 mg/ Dextrose [...] 04:18 Dextrose IV 03/08/23 19:29 0.5 mcg/kg/hr .[id number] RYAN 12.04 mls/hr Titration Protocol 0.2 MCG/KG/HR [...] Patch.Td24 TRANSDERML 04/18/22 09:01 Not Given DAILY [facility] Ondansetron HCl 4 mg 03/09/22 23:43 03/09/22 [...] <Electronically signed by Deangelo Kulkarni MD> 03/10/22 3780 [facility] Work Phone: 1(144) 667-742912-03-2022 Progress note Author Javan Boothe [facility] March 10, 2022 10:44amNote Date/TimeDece2021 10:44[place] [address] Neurology Progress Note Signed Patient: Guera Sanchez MR#: [id number] : 1955 Acct:[id number] Age/Sex: 66 / F Adm Date: 2 Loc: Room: [address] [place] [address] Type: ADM IN Attending Dr: Deangelo Kulkarni [...] about her family members. She thinks she isgoing after this hospitalization to live with familymembers in [place]. Her left upper extremity is still not bothering her at all. She again states that she has not had headache. She has not had any visual symptoms. Denies hallucinations, diplopia, loss of vision. No new symptoms to add to reviewof systems. EXAMINATION: Well-kempt. No distress. No deformities or trauma. No nuchal rigidity. Limbsseem well-perfused. No significant edema. Normal work of breathing. Visualized skin is generally intact and without lesions. Very emotionally labile. She is alert. Oriented to [facility], 2021, butdidnot know the month. Attention seemed impaired. Somewhat tangential or circumferential. Speech is flu ent and nondysarthric. Pupils are equal and reactive [...] 3 months from now, she should have arepeat MRI to ensure that those white matter changes were temporary and have resolved. Code(s): R41.82 - Altered mental status, unspecified Status: Acute Documented By: Javan Boothe DO 03/10/22 1038 Signed By: <Electronically signed by Javan Boothe DO> 03/10/22 1044 [facility] Work Phone: 1(804) 258-657312-02-2022 Consult note Author Javan Boothe [facility] March 09, 2022 3:31pmNote Date/TimeDece2021 1:53pm[place] [address] Neurology Consult Note Signed Patient: Guera Sanchez MR#: [id number] : 1955 Acct:[id number] Age/Sex: 66 / F Adm Date: 2 Loc: Room: [address] [place] [address] Type: ADM IN Attending Dr: Deangelo Kulkarni MD Copies to: DO Ash Mathew MD Obaydah M Daromar, MD~ HPI Consult Date: 03/09/22 [employer]: Javan Boothe DO PMFSH Vaccinated for COVID-19?: Unknown Medical History [...] Katie Butler M.D.03/08/2022 4:28 PM Dictation Location: [place] [address] Chest X-Ray 03/08/22 14:37 IMPRESSION: CHF FINDINGS. NO FOCAL CONSOLIDATION IS SEEN TO SUGGEST PNEUMONIA. Impression dictated by: Ryan Chacon Jr., D.O.03/08/2022 4:11 PM Dictation Location: [place] [address] Assessment/Plan (1) Altered mental status: Assessment/Problem Details: CONSULT REASON: Confusion SUBJECTIVE/HPI: 66-year-old woman. History that includes type 2 diabetes, hypertension, anxietydisorder, and a leftshoulder fracture with surgery just a few days prior to admission. She was reportedly found at homevery confused by a friend. Fever with maximum temperature 100.8. Tachycardic 128. Prolonged QT 572.Head CT unremarkable. Sodium 122. Her chief complaint is being thirsty. She forgot she had even hadsurgery. She has no complaints of pain. She [...] lesions. Affect normal. She isalert. Oriented to [facility], 2021, but did not know the month. Attention seemed impaired. Somewhat tangential or circumferential. Speech is fluent and no ndysarthric. Pupils are equal and reactive Ocular motility is full. No nystagmus. Facial sensation is normal. Hearing is normal. Facial strength is normal. Tongue is midline. Muscle bulk, tone, and strength are normal aside from the left upper extremity which was not tested dueto the arm being in asling and the recent surgery. No tremors. No [...] signed by Javan Boothe DO> 03/09/22 1531 [facility] Work Phone: 1(551) 679-654712-02-2022 Progress note Author Deangelo Kulkarni [facility] March 09, 2022 2:11pmNote Date/TimeDece2021 11:53[place] [address] Hospitalist Progress Note Signed Patient: Guera Sanchez MR#: [id number] : 1955 Acct:[id number] Age/Sex: 66 / F Adm Date: 2 Loc: Room: [address] [place] [address] Type: ADM IN Attending Dr: Deangelo Kulkarni MD Copies to: ~ Date of Service: 03/09/2022 Subjective Subjective Narrative: Patient seen and examined at bedside. Slightly combative earlier on so Precedexdrip increased. Currently patient is sleepy but easily arousable, cooperative and responding to questions appropriately.She does not have any recollection of why [...] 1,000 Ml IV 03/08/23 17:59 75 mls/hr .[id number] RYAN Administration Vancomycin HCl 1 gm in [...] 07:37 Dextrose IV 03/08/23 19:29 0.8 mcg/kg/hr .[id number] RYAN 19.26 mls/hr Administration Protocol 0.2 MCG/KG/HR [...] does not have any recollection of why sheis in the hospital or any events prior [...] <Electronically signed by Deangelo Kulkarni MD> 03/09/22 [facility] Work Phone: 1(945) 571-363812-01-2022 History and physical note Author Deangelo Kulkarni [facility] March 08, 2022 7:23pmNote Date/TimeD2021 6:07pm[place] [address] Hospitalist H&P Signed Patient: Guera Sanchez MR#: [id number] : 1955 Acct:[id number] Age/Sex: 66 / F Adm Date: 2 Loc: Room: 6L6170-3 Type: ADM IN Attending Dr: Deangelo Kulkarni MD Copies to: MD Denice De Souza APRN Obaydah M Daromar, MD~ HPI DATE OF EXAMINATION: 03/08/22 CHIEF [...] altered mental status. According to the ER [employer] she was found by a friend at home alone in a very confused state. Accordingto her friend she was unable to reach [...] Hemoglobin 9.7. VBG's was obtained with a pHof 7.40CO2 29.2 sodium 122. Potassium 2.5. Magnesium [...] unless noted in the HPI or below [facility] Attestation Statement: The following information was validated [...] mg tablet 10 mg PO QAM cholesterol 11/15/22 [History Confirmed 03/08/22] citalopram 40 mg tablet [...] % (Auto) 9.5 % (.) 03/08/22 13:18 Chippewa % (Auto) 13.4 % (.) 03/08/22 13:18 Eos % (Auto) 0.0 % (.) 03/08/22 13:18 Baso % (Auto) 0.1 % (.) 03/08/22 13:18 Nucleat RBC Rel Count 0.0 /100 WBC (0-0.5) 03/08/22 13:18 Neut # (Auto) 9.8 x10E3/uL (1.8-7.7) H 03/08/22 13:18 Lymph # (Auto) 1.2 x10E3/uL (1.00-4.8) 03/08/22 13:18 [place] # (Auto) 1.7 x10E3/uL (0.0-0.8) H 03/08/22 [...] pH 8.0 (5.0-9.0) 03/08/22 14:14 Ur Specific Wheeler 1.015 (1.001-1.030) 03/08/22 14:14 Urine Protein 30 [...] Currently she is not responding to verbal stimuli,slightly responsive to painful stimuli. ?Admit to ICU [...] By: <Electronically signed by HEMANTH Buckner> 03/08/22 185 <Electronically signed by Deangelo Kulkarni MD> 03/08/221922 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 Work Phone: evaluation note* Diagnosis Onset Date Resolution Status Acute electrocardiography changes acuteAltered mental statusacuteHypokalemiaacuteHypomagnesemiaacuteHyponatremia acuteMetabolic encephalopathyacute [facility] Work Phone: evaluation note* Diagnosis Onset Date Resolution Status Acute electrocardiography changes acuteAltered mental statusacuteDuodenitisacuteHypokalemiaacuteHypomagnesemia acuteHyponatremiaacuteMetabolic encephalopathyacutePRES (posterior reversible encephalopathy syndrome)acute [facility] Work Phone: evaluation note* Diagnosis Onset Date Resolution Status Acute electrocardiography changes acuteAltered mental statusacuteDuodenitisacuteHypokalemiaacuteHypomagnesemia acuteHyponatremiaacuteMetabolic encephalopathyacutePRES (posterior reversible encephalopathy syndrome)acuteAnemiaacuteDuodenitisacuteHypokalemiaacute HypomagnesemiaacuteHyponatremiaacuteImpaired mobility and activities of daily livingacuteMetabolic encephalopathyacutePRES (posterior reversible encephalopathy syndrome)acute [facility] Work Phone: evalubuaay noteNo InformationN[employer] Other Evaluation note* Diagnosis Onset Date Resolution Status Hypertension acuteHypomagnesemiachronicHyponatremiachronic [facility] Work Phone: Hisqkii general Narrative - Reported* Type Description Date Medical History diabetes Medical HistoryhypertensionMedical HistoryanxietyMedical Historyleft shoulder fracture [employer] Other History general Narrative - Reported* Type Description Date Medical History diabetes Medical HistoryhypertensionMedical HistoryanxietyMedical Historyleft shoulder fractureSurgical Historyleft reverse total shoulderHospitalization HistorySee Surgeries [employer] Other Hospital Discharge instructions Additional Instructions DISCHARGE [...] OTHER -Any problems call the office at [phone] or return to Emergency Room. If you [...] in one week; call the office at [phone] if your appointment has not been made already. Call [phone] for further questions.[facility] Work Phone: Hospital Discharge instructions Additional Instructions [...] infection -Care to be managed by rehab providers.[facility] Work Phone: Hospital Discharge instructions Additional [...] medication list, photo ID, and any insurance card(s).[facility] Work Phone: Hospital Discharge instructions No data available for this section General Surgery [place] Progress note No data available for this section [place] Surgery [place] Chief Complaint and Reason for Visit Chief Complaint Left Shoulder Pain pain pain Chief Complaint Left Shoulder Pain pain pain AMS/FEVER/SHOULDER PAINReason for VisitAcute electrocardiography changes Altered mental status Hypokalemia Hypomagnesemia Hyponatremia Metabolic encephalopathy Chief Complaint Left Shoulder Pain pain pain AMS/FEVER/SHOULDER PAINReason for VisitAcute electrocardiography changes Altered mental status Duodenitis Hypokalemia Hypomagnesemia Hyponatremia Metabolic encephalopathy PRES (posterior reversible encephalopathy syndrome) Chief Complaint Left Shoulder Pain pain pain AMS/FEVER/SHOULDER PAIN Metabolic Encephalopathy/PRESReason for VisitAcute electrocardiography changes Altered mental status Duodenitis Hypokalemia Hypomagnesemia Hyponatremia Metabolic encephalopathy PRES (posterior reversible encephalopathy syndrome) Anemia Duodenitis Hypokalemia Hypomagnesemia Hyponatremia Impaired mobility and activities of daily living Metabolic encephalopathy PRES (posterior reversible encephalopathy syndrome) Chief Complaint Left Shoulder Pain Left Shoulder Pain pain pain AMS/FEVER/SHOULDER PAIN Metabolic Encephalopathy/PRESReason for VisitAcute electrocardiography changes Altered mental status Duodenitis Hypokalemia Hypomagnesemia Hyponatremia Metabolic encephalopathy PRES (posterior reversible encephalopathy syndrome) Anemia Duodenitis Hypokalemia Hypomagnesemia Hyponatremia Impaired mobility and activities of daily living Metabolic encephalopathy PRES (posterior reversible encephalopathy syndrome) Chief Complaint S42.212A Chief Complaint RENAL LOW MG Reason for Visit Hypertension Hypomagnesemia Hyponatremia Family History Relationship Condition Age at Onset Recorded Date/T filomena father Depression Unknown AnxietyUnknownIrritable bowel syndromeUnknownNot SpecifiedDepressionUnknown Malignant neoplasm of lungUnknown Relationship Condition Age at Onset Recorded Date/T filomena father Depression Unknown AnxietyUnknownIrritable bowel syndromeUnknownmotherDepressionUnknownMalignant neoplasm of lungUnknown Advance Directives Advance Directive Response Recorded Date/ Time Advance Directives No February 1:25pm Advance Directive Response Recorded Date/ Time Advance Directives No February 2:25pm Summary Purpose Reason for Referral Reason 04/18/22 post op c are after moving. [facility] or [facility] in [place], [place] if available Diagnosis 1 Displaced fracture o f proximal end of left humerus (S42.A) Referral Organization [facility] Referring Provider First Name Asa Referring Provider Last Name Dony Referring Provider Specialty Orthopedic Surgery Referred Organization Unknown Facility Referred Provider Specialty Orthopaedic Surgery Referral Priority Routine Referral Appointment Date 2022-04-18 General Notes Destiny Kay 12:58:50 PM > patient is s/p Arthrex cemented [left] reverse total shoulder. Size [9] cemented reverse stem with +6 extension [+3] poly-. [24] glenoid baseplate with 36 glenosphere/Biceps tenodesis/Bone graft proximal humerus DOS 03/06/2022 Asia Ellison 04/03/2022 03:03:11 PM >called [facility] and confirmed that they will consider scheduling patient but will need records and Operative report faxed first, once received they will forward the documents to their shoulder specialists to see if they will agree to take over carefor patient now that she is in [place]. Ellison Asia 04/16/2022 10:37:33 AM >called and confirmed patient is coming in 04/18/22 withDr David Hogan Terra [facility] 05/18/2022 10:11:24 AM >office received the consult note directly 04/19/22, closing [facility]Clinical [facility] ph [phone] / fax [phone] Additional Source Comments Care Teams (unrecognized sec tion and content) Team Status: Active Member Role Status Ramon Bernstein MD Primary Care Provider Active Team Status: Inactive Member Role Status Ramon Bernstein MD Primary Care Provider Active Sky Michaels ProviderActive Team Status: Active Member Role Status Ramon Bernstein MD Primary Care Provider Active Elmer Mackeyrsheila ProviderActiveDeangelo Kulkarni , MDAdmit Provider, Attending ProviderActive Team Status: Inactive Member Role Status Ramon Bernstein MD Primary Care Provider Active Barry Colby DOEmersheila ProviderActiveDeangelo Duncanr , MDAdmit ProviderActiveCamdulce Ro MDOther ProviderActiveJavan Boothe , DOOther ProviderActiveNavarro Cota , Atthien ProviderActive Team Status: Inactive Member Role Status Ramon Bernstein MD Primary Care Provider Active Aj Lunsfordit Provider, Attending ProviderActiveVanessa Garcia RN Other ProviderActiveAzalea German , RNOther ProviderActiveRosemary Kay , RN Other ProviderActiveMicefren Vu , RNOther ProviderActiveYing Rivera , RNOther ProviderActiveAleida Tamez RNOther ProviderActiveMario Knutson MD Other ProviderActiveAnakiko Weber MDOther ProviderActiveSarahi Braswell APRN Other ProviderActiveRonchaz Martinez DOOther ProviderActiveMusluis felipe Miguel MD Other ProviderActiveNavarro Cota , DOOther ProviderActiveJan oWod MDOther ProviderActiveAngelina Riley MDOther ProviderActiveLynn Kurtis , ANP-BCOther ProviderActiveConchita Weber MDOther ProviderActiveKobe Morris MDOther ProviderActiveRachel Persaud MDOther ProviderActiveChandler Wynn MD Other ProviderActiveMichaejuly Story , DOOther ProviderActiveLauren Vicente MDOther ProviderActiveEarjuly Alonso MDOther ProviderActiveKeisha Diaz Leando , [employer] WELDER-COther ProviderActiveWilian Pearson MDOther ProviderActiveKun Perkins MD Other ProviderActiveAnoSotelo MDOther ProviderActiveMarlee Garces , DOOther ProviderActiveNeal R Rickey , DOOther ProviderActiveAnthony M Miniaci , DO Other ProviderActiveLinda Dudley , APRNOther ProviderActiveEugenio Tirado , DO Other ProviderActiveObatrinity Kulkarni MDOther ProviderActivePajonathon Shoemaker , APRNOther ProviderActiveMilvia Palacio , CHRISTIEOther ProviderActive Team Status: Inactive Member Role Status Dates Ash Bernstein MD Primary Care Provider Active Start: January 09, 2024 End: January 08bdul Damian , MDAttending ProviderActiveStart: January 09, 2024 End: January 09, 2024 INFORMATION SOURCE (unrecogn ized section and content) DATE CREATED AUTHOR 04/25/2022 [facility] DATE CREATED AUTHOR AUTHOR'S ORGANIZ ATION 06/16/2022 [facility] DATE CREATED AUTHOR AUTHOR'S ORGANIZ ATION 08/08/2022 [facility] DATE CREATED AUTHOR AUTHOR'S ORGANIZ ATION 10/23/2022 [facility] REASON FOR VISIT (unrecogniz ed section and [...] BE BASED ON THE PRIMARY CLINICAL RECORDS. [employer] [facility]. provides no warranty or guarantee of the accuracy or completeness of information in this document.
[2025-03-16 10:36] LABS: Hematocrit 38.4 % (36.0-48.0); Hemoglobin 12.2 g/dL (12.0-16.0); Mean Corpuscular HGB Conc 31.8 g/dL (29.9-35.2); Mean Corpuscular Hemoglobin 30.6 pg (26.7-34.0); Mean Corpuscular Volume 96.2 fL (81.0-99.0); Platelet Count 212 10^3/uL (150-450); Red Blood Count 3.99 10^6/uL (4.20-5.40); White Blood Count 6.0 10^3/uL (4.0-11.0)
[2025-03-16 10:48] LABS: Protein Creatinine Ratio Urine 0.29; Total Protein Urine Random 44.0 mg/dL (<=11.9)
[2025-03-16 11:02] LABS: Albumin Level 3.4 g/dL (3.4-5.0); Anion Gap 9.0; Blood Urea Nitrogen 17.0 mg/dL (7.0-18.0); Calcium 9.0 mg/dL (8.5-10.1); Carbon Dioxide 31.3 mmol/L (21.0-32.0); Chloride 101 mmol/L (98-107); Estimated GFR (African America >60 (>=60 mL/min/1.73m^2); Estimated GFR (Non-African Ame >60 (>=60 mL/min/1.73m^2); Glucose 172 mg/dL (74-106); Magnesium 1.3 mg/dL (1.8-2.4); Potassium 4.3 mmol/L (3.5-5.1); Sodium 137 mmol/L (136-145); Uric Acid 3.7 mg/dL (2.6-6.0)
[2025-03-16 11:30] LABS: Glucose Urine UA NEGATIVE (NEGATIVE)
[2025-03-16 12:42] LABS: Cast Seen? NONE SEEN #/LPF (NONE SEEN); Crystals Seen? None Seen #/HPF (None Seen)
== END 2025-03-16 09:56 | disposition home or self-care (01) ==
LOC: LAB 09:59
PROVIDERS: PCP Family Medicine; Visit Provider Internal Medicine
DX: E83.39 Other disorders of phosphorus metabolism (principal); N18.30 Chronic kidney disease, stage 3 unspecified; E78.5 Hyperlipidemia, unspecified; E11.9 Type 2 diabetes mellitus without complications; E83.42 Hypomagnesemia; E87.1 Hypo-osmolality and hyponatremia
CPT/HCPCS: 36415; 80069; 81001; 82306; 82570; 83735; 84156; 84550; 85027

== ENCOUNTER 2025-03-24 10:35 | Outpatient (OUT) | payer MEDICARE, SELFPAY ==
--- OUTSIDE RECORDS SUMMARY | 2025-03-22 10:19 | XMS_ITS | Continuity of Care Document ---
Author Organization [facility] Address [address] [place] [address] Phone Care Team Providers Care Lead Relay Tester Name Role Phone Yves Whiting MD Primary Care Provider Gayatri Salgado Attending Provider Care Teams Patient Care Team Team Status: Active Member Role/Relationship Status Dates Yves Whiting MD Primary Care Provider Active Patient Care Team Team Status: Active Member Role/Relationship Status Dates Yves Whiting MD Primary Care Provider Active Start: March 16, 2025 Sky Chaparro ProviderActiveStart: March 16, 2025 Patient Care Team Team Status: Inactive Member Role/Relationship Status Dates Yves Whiting MD Primary Care Provider Active Start: March 22, 2025 End: March 22Sky Harman ProviderActiveStart: March 22, 2025 End: March 22, 2025 Chief Complaint and Reason for Visit Chief Complaint Admit Date renal 6 month f/u March 22, 2025 2:55pm Reason for Visit Admit Date Alcohol abuse March 22, 2025 2:55pm CKD (chronic kidney disease) stage 3, GF R 30-59 ml/min March 22, 2025 2:55pm Diabetes mellitus, type 2 March 22, 2025 2:55pm Hyperlipidemia March 22, 2025 2:55pm Hypertension March 22, 2025 2:55pm Hypophosphatemia March 22, 2025 2:55pm Hypomagnesemia March 22, 2025 2:55pm Hyponatremia March 22, 2025 2:55pm Allergies, Adverse Reactions, Alerts Allergen Type Severity Reaction Last Updated Verified Status No Known Allergies Allergy Unknown March 22, 2025 3:04pmYesActive Social History Smoking Status Status Start Date End Date Date of Observa tion Ex-smoker (finding) April 08, 1977 March 22, 2025 3:08pm Observation Status Observation Response Date of Response Legal Sex Female (finding) [facility] Family History Relationship Condition Age at Onset Recorded Date/T filomena father Depression Unknown AnxietyUnknownIrritable bowel syndromeUnknownmotherDepressionUnknownAnxiety UnknownMalignant neoplasm of lungUnknown Problems Active Problems Problem Diagnosis/Recorded Date Onset Date Status C omments Alcohol abuse September 17, 2024 1:18pm Unknown Active Diabetes mellitus, type 2November 2021 1:51pmUnknownActiveCKD (chronic kidney disease) stage 2, GFR 60-89 ml/minDecember 2024 3:16pmUnknownActive CKD (chronic kidney disease) stage 3, GFR 30-59 ml/minDecember 2023 3:27pm UnknownActiveHyperlipidemiaOctober 2023 9:53amUnknownActiveHyponatremia March 08, 2022 4:51pmUnknownActiveHypophosphatemiaJune 2024 1:09pm UnknownActiveHypertensionNovember 2021 1:49pmUnknownActiveHypomagnesemia March 08, 2022 4:51pmUnknownActiveInactive/Resolved Problems Problem Diagnosis/Recorded Date Onset Date Status C omments Impaired mobility and activities of daily living March 19, 2022 2:51pm Unknown Resolved Problem List clean-up per request of Phys. EHR Cmte Anemia March 19, 2022 3:28pm Unknown Resolved Problem List clean-up per request of Phys. EHR Cmte Metabolic encephalopathy March 08, 2022 6:13pm Unknown Resolved Problem List clean-up per request of Phys. EHR Cmte Acute electrocardiography changes March 08, 2022 4:51pm Unknown Resolved Proble m List clean-up per request of Phys. EHR Cmte Altered mental status March 08, 2022 4:51pm Unknown Resolved Problem List clean-up per request of Phys. EHR Cmte PRES (posterior reversible encephalopathy syndrome) March 16, 2022 8:32am Unknown Resolved Problem List clean-up per request of Phys. EHR Cmte Duodenitis March 12, 2022 3:38pm Unknown Resolved Problem List clean-up per request of Phys. EHR Cmte Hypokalemia March 08, 2022 4:51pm Unknown Resolved Problem List clean-up per request of Phys. EHR Cmte Medications Medication Status Dose Units Route Directions Qty Days Refills S tart Date Stop Date End Date Reason(s) Instructions Adherence Amiloride 5 mg tablet Discontinued 5 MG PO Daily 90 1January 2024 2:53pmAugust 2024 7:27amPotassium, Sodium Phosphates 280-160-250 mg powder in oywqbeIzllgexhwrna0EGNZCXWL2h/Day after meals & bedtime 1001May 2024 11:00pmJune 2024 10:15amPotassium, Sodium Phosphates 280-160-250 mg powder in hslgorVfiqmmvjazhk1VAYAVWGMZysfm times xnwzg6389Rikq2024 10:14amAugust 2024 11:32amPotassium, Sodium Phosphates 280-160-250 mg powder in paccloTpwqyt1KEEZIRVUVnfeb times aaysq7858Vzwsux2024 11:30amComplies with drug therapyAmiloride 5 mg tabletActive0.ROUTE.COMPLEX 2024 7:26amTAKE 1 TABLET BY MOUTH DAILYComplies with drug therapy Sodium Chloride 1 gram QplhodEkyetvhouhyt6371CVLOHcvun times dailyMarch 06, 2022 12:00amDecember 2021 7:29pmOxycodone-Acetaminophen (Percocet) 5-325 mg ShyvrsFyevyxlfnemx3UGHOTS6G as needed for Uhnu3463Lpbablafece2021 7:29pmStatus post total shoulder replacement Presence of unspecified artificial shoulder jointCephalexin 500 mg Capsule Xypolvyurjir393YJFDA3S94Rchsgxvu 30th, 2022 12:00amDecember 2021 2:37pm Ondansetron 4 mg Tablet,EoupllayibfptxEsxquclzimwd0BAKCG1N196Uhwzwprq 30th 2022 12:00am[facility] 2021 7:29pmCyclobenzaprine 10 mg vkknnwMcxrrdywgqnf10AZXX Three times daily as [facility] 2021 12:00am[facility] 2021 7:29pmGabapentin 600 mg umoaboIbgiejfgfpyo446LEIRBdxtw dailyCardinal Hill Rehabilitation Center 2021 12:00[facility] 2021 7:29pmpainCitalopram 40 mg tablet Npalbjjxyqza72NZZHJmupm [facility] 2021 12:00[facility] 2021 7:29pmAtorvastatin 10 mg erjmucTkewvzbfwhlt23FSQKZegdn [facility] 2021 12:00[facility] 2021 7:29pmcholesterolIbuprofen 800 mg tablet Esceaemwakfn292NFZWxipsj 6 to 8 hours as needed for PainCardinal Hill [facility] 2021 12:00[facility] 2021 8:18amLiothyronine 5 mcg aexokcTqhpzcxyccou32MXEBP DailyCardinal Hill Rehabilitation Center 2021 12:00[facility] 2021 7:29pmthyroid disorder Quetiapine 100 mg whgfisVnnhqowycbwx508GCRGJuyaw at bedtimeCardinal Hill Rehabilitation Center 2021 12:00[facility] 2021 7:29pmIrbesartan 300 mg bhvhplVnybhigiukoq677JKSY DailyCardinal Hill [facility] 2021 12:00[facility] 2021 7:29pmHTNHydrochlorothiazide 12.5 mg xmrcjvBmiiikvelpkt43.5MGPODailyCardinal Hill Rehabilitation Center 2021 12:00[facility] 2021 7:29pmPioglitazone (Actos) 45 mg XanntdLvgifdncknir88PHSCWffbgCxkrsume 2021 12:00[facility] 2021 7:29pmAspirin 81 mg Tablet,Delayed Release (Dr/Ec)Bgodnuvsnfjo92YVRFVsmknKgarprec 2021 12:00[facility] 2021 6:20pmMetformin 750 mg Tablet Extended Release 24 QjAvoghigfhyyu073ENVVMrzqo times dailyNovember 2021 12:00amMarch 08, 2022 6:19pmdiabetes Cetirizine (Zyrtec) 10 mg CqrpteAswceyvykeya42DHQQSmbcmQmcviham 1st, 2022 12:00amce2021 7:29pmIbuprofen 800 mg VznhfnLlnlspjntxvk980OIUOO9J as needed for Paince2021 12:002021 9:30amMetformin 850 mg CrrqkxLegxxuwtmsal356ABFAAdgyt times dailyMarch 08, 2022 12:00am March 26, 2022 7:29pmPotassium Chloride (Klor-Con M20) 20 mEq tablet,ER particles/wqqvwvrmHoysjmhkdjqt23VACATQxeb times dailyMarch 08, 2022 12:00am March 19, 2022 2:37pmAspirin 81 mg JmmiwjOzvkjkbvcttz93JAKQVhjnrVynjqoxx 4th, 2022 12:00amMarch 19, 2022 2:37pmThiamine Hcl (Vitamin B1) 100 mg JlhfwqWtyfxrldsvhb803ZGSEDnimg83Ciatbrlz 11th, 2022 12:002021 7:29pmPantoprazole 40 mg tablet,delayed release (DR/EC)Lrdbqhhcutpw40YZXCMnzsz kybri51960KnihawilMarch 18, 2022 12:002021 7:29pmMagnesium Oxide 400 mg (241.3 mg magnesium) IofdxlMdueeizimddr173YNNVOppei xmhoc68XakwzfmoMarch 18, 2022 12:00mb2021 7:29pmAmlodipine 10 mg YlwparYwpkkpgdcecu83SCMK Uzeiw25Jjrajiyp2021 12:002021 7:29pmNicotine 21 mg/24 hr Patch 24 YdhiFdmbuzhjmxbz4GEFIYVVJPQQYPFAigsh13Lflwdmfl 11th, 2022 12:00am March 26, 2022 7:29pmFolic Acid 1 mg SdjyufSyyltrwrwjal7QKKIZwxka74Xxhwercs 11th, 2022 12:00amDece2021 7:29pmMelatonin 5 mg NchbnbTxrrwxpvifog0KD PODaily at aeyfeml50XqwbkmhoMarch 18, 2022 12:00amDece2021 7:29pm Atorvastatin 10 mg WirkweVzdbjsobaawn10NQBDMzjxq isbassd24174Wlxlcmvn2021 12:00amOctober 2023 10:04amAmlodipine 10 mg RppsrqCopncs17KGHETmlzg21625 March 26, 2022 12:00amComplies with drug therapyLoratadine 10 mg Tablet Oppgyqlsgbfq75RULXOezkl74025Advlnwbu 19th, 2022 12:00amOctober 2023 9:59am Gabapentin 600 mg YfmngtZbylzuotntqw900TSHPHzvib ltfzu85676Mgyfuhze2021 12:00amOctober 2023 10:00amCitalopram 40 mg EnnevaNlfherserbed64DHDNUvesu xhidukv26575Qqukfdrt 19th, 2022 12:00amOctober 2023 9:57amMetformin 850 mg VpcbkeAxktppbefarf286GLLYLjikn daily with rczhf87137Dkfixgdy2021 12:00am January 09, 2024 10:05amThiamine Hcl (Vitamin B1) 100 mg UzrqemDisncitmqrlb153 TXKJMlpts45024Hzqagulh 19th, 2022 12:00amOctober 2023 10:03amPioglitazone 45 mg IomenzTdloaa56DYDRYznxf98596Shkqbeol 19th, 2022 12:00amComplies with drug therapyLiothyronine (Cytomel) 5 mcg LgmrbuWvfxvz97BEWYDSpvfq73530Tlbiuyif 19th, 2022 12:00amComplies with drug therapyQuetiapine 100 mg MeeuryXnedng950RBMXUssst at qjllpdc50517Fkxsgcnu2021 12:00amComplies with drug therapy Acetaminophen 500 mg AwqxosNhbrno207QIJOF7A as needed for Glcu771718QzsgosfiMarch 26, 2022 12:00amComplies with drug therapyMagnesium Oxide 400 mg (241.3 mg magnesium) FtudcwWotgweykdmin198JOBCMwgzv tgtwv24020Fuhamuwd 2021 12:00am January 09, 2024 10:05amFolic Acid 1 mg NryqbmFjouey7PKZVLzseb06405Lgigjxnz 19th, 2022 12:00amComplies with drug therapyIrbesartan 300 mg TabletDiscontinued 630XLQMYbuiz07608Xpnnkzhj 19th, 2022 12:00amOctad[facility] 2023 10:15am Lansoprazole 30 mg Tablet,Disintegrat, Delay WduQsfnpgxypkmo39PQKWUdsrh31793 March 26, 2022 12:00amOctadventhealth [facility] 2023 10:04amSodium Chloride 1,000 mg Tablet,LqmfcuiWhagjyhrjyfa4ACJXDrpkc times fpvyq48000Wyjgtlug 19th, 2022 12:00am January 09, 2024 10:05amGlyburide 2.5 mg tabletDiscontinued2.5MGPOTwice daily60 301m[facility]2021 12:00amOctadventhealth [facility] 2023 10:05amSulfamethoxazole- Trimethoprim 800-160 mg bulbxbXyypos6JJILYLrqzk dailyDedignity health [facility] 2024 12:00am Complies with drug therapyCitalopram (Celexa) 40 mg uzhferBebhqb45LAYQGczjp January 08, 2024 11:00pmComplies with drug therapyCetirizine (Zyrtec) 10 mg qhoqtrEguuaz24NUAEMybrmQjwmbin 2nd, 2024 11:00pmComplies with drug therapy Cyclobenzaprine 10 mg uirjafYqjvhm07ZOQSZezmz at bedtimeJanadventhealth [facility] 2023 11:00pmComplies with drug therapyMagnesium Oxide 400 mg (241.3 mg magnesium) zwgzgfBjdtarxpcjas3TEHmqks times dailyOctadventhealth [facility] 2023 10:00amJune 2024 1:12pm20,000 mg twice a day, 16,000 at bedtime orally three times daily; Metformin 850 mg tkqsmeQyfyyn007IHVZ2b/Day with mealsJanuary 09, 2024 10:02am Complies with drug therapyOmeprazole 40 mg capsule,delayed release(DR/EC)Active 40MGPODailyJanuary 08, 2024 11:00pmComplies with drug therapySodium Chloride 1,000 mg tablet,pxlevihXbvejreknnox2462QZYQMtgjv times dailyOct2023 10:03amOct2023 10:14amAtorvastatin 20 mg lioovlWcrnggtamxqz91RIYWVryxs at bedtimeOct2023 11:00pmDecember 2023 3:15pmAlendronate 70 mg onlmtdLwhizzgvrctw94PDKNadaqi weekOct2023 11:00pmDecember 2024 3:04pmSodium Chloride 1,000 mg tablet,bsmdripLpxmex1134EVVQLxmkl times daily January 09, 2024 10:14amComplies with drug therapyAmiloride 5 mg tablet Cwamsgqyuhgc0OAUQWbwyg899Yxggape 2nd, 2024 11:00pmJanuary 2024 2:53pm Atorvastatin 20 mg rhfhvrSqzxfvbmouow15XSBKXkmlr at bedtimeSur[facility]2023 3:13pmJune 2024 12:39pmAtorvastatin 20 mg zorqgaOomdzt16IMJVCtzah at bedtimeJune 2024 12:37pmComplies with drug therapyMagnesium Oxide 400 mg (241.3 mg magnesium) haxqohYjcruo5OKYupeb times dailyJun2024 1:75as1439 mg in AM and 1600 mg in PMComplies with drug therapy Immunizations Immunization Event Date Not Given Reason Dose Number 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 Lot Number Reason(s) Given Vaccine Information Statement (VIS) Detail Administration Location COVID-19 mRNA, Comirnaty ([employer]) March 28, 2020 COVID-19 mRNA, Comirnaty ([employer])July 13OVID-19 mRNA, Comirnaty ([employer])January 26, 2021Fluzone QIV High-Dose 65YR+March 22, 2022 [id number] Medical Equipment Device Date Implanted Device Details Orthopaedic cement, non-medicated March 06, 2022 COREY: [id number] Issuing Agency: [employer] Device Id: [id number] Expiration Date: 2024-04-07 Lot Number: [id number] reverse shoulder prosthesisNovember 2021UDI: ()[id number] Issuing Agency: [facility] Device Id: [id number] Expiration Date: 2026-09-05 Lot Number: [id number] reverse shoulder prosthesisNovember 2021UDI: ()[id number] Issuing Agency: [facility] Device Id: [id number] Expiration Date: 2026-06-05 Lot Number: [id number] reverse shoulder prosthesisNovember 2021UDI: ()[id number] Issuing Agency: [facility] Device Id: [id number] Expiration Date: 2026-04-07 Lot Number: [id number] reverse shoulder prosthesisNovember 2021UDI: ()[id number] Issuing Agency: [facility] Device Id: [id number] Expiration Date: 2026-05-08 Lot Number: [id number] reverse shoulder prosthesisNovember 2021UDI: ()[id number])[id number] Issuing Agency: [facility] Device Id: [id number] Expiration Date: 2026-08-05 Lot Number: [id number] reverse shoulder prosthesisNovember 2021UDI: ()[id number] Issuing Agency: [facility] Device Id: [id number] Expiration Date: 2025-03-07 Lot Number: [id number] reverse shoulder prosthesisNovember 2021UDI: ()[id number] Issuing Agency: [facility] Device Id: [id number] Expiration Date: 2024-06-05 Lot Number: [id number] reverse shoulder prosthesisNovember 2021UDI: ()[id number] Issuing Agency: [facility] Device Id: [id number] Expiration Date: 2024-05-08 Lot Number: [id number] reverse shoulder prosthesisNovember 2021UDI: ([id number] Issuing Agency: [facility] Device Id: [id number] Expiration Date: 2024-12-06 Lot Number: [id number] reverse shoulder prosthesisNovember 2021UDI: [id number] Issuing Agency: [facility] Device Id: [id number] Expiration Date: 2024-09-05 Lot Number: [id number] orthopaedic cement restrictor, non-bioabsorbable, sterileNovember 2021UDI: ()[id number] Issuing Agency: [facility] Device Id: [id number] Expiration Date: 2026-02-03 Lot Number: [id number] Relevant Diagnostic Tests and/or Laboratory Data Laboratory Results Test Collection Date/Time Result Date/Time Result Interpretation Reference Range Result Comment Performing Site Urine Other Casts March 16, 2025 10:05am NONE SEEN #/LPFNONE SEENUrine Random CreatinineDece2024 10:05am March 16, 2025 10:88oh959.19 mg/dL20.00-300.00Magnesium LevelDece2024 10:12amDecember 2024 10:12am1.3 mg/dLBelow low normal1.8-2.4Uric Acid March 16, 2025 10:12amDecember 2024 10:12am3.7 mg/dL2.6-6.0Anion Gap March 16, 2025 10:12amDecember 2024 10:12am9.025-Hydroxy Vitamin D TotalDecemb2024 10:12amDecember 2024 10:12am32.2 ng/mL<20 ng/mL Vit D tnmvzlogj59-<30 ng/mL Vit D igpjkdpkznjn17-914 ng/mL Vit D sufficient>100 n g/mL Potential ToxicityHematocritDeceer 2024 10:12amDecember 2024 10:12am38.4 %36.0-48.0Urine Other CrystalsDeceer 2024 10:05amNone Seen #/HPFNone SeenUrine Protein/Creatinine Ratiocemayo clinic [place] [facility] 2024 10:05amDecember 2024 10:05am0.29AlbuminDeceer 2024 10:12amDecember 2024 10:12am 3.4 g/dL3.4-5.0HemoglobinDecemayo clinic [place] ([place] 2024 10:12amDecember 2024 10:12am 12.2 g/dL12.0-16.0Urine BacteriaDeceer 2024 10:05amMODERATE #/HPFAbnormal (applies to non-numeric results)NONE SEENUrine Random Total ProteinDeceer 2024 10:05amDeceer 2024 10:05am44.0 mg/dLAbove high normal<=11.9 BUN/Creatinine Ratiodignity health [facility] 2024 10:12amDeceer 2024 10:12am20.2Mean Corpuscular HemoglobinDece2024 10:12amDeceer 2024 10:12am30.6 pg26.7-34.0Urine BilirubinDeceer 2024 10:05amNEGATIVENEGATIVEBlood Urea NitrogenDeceer 2024 10:12amDecember 2024 10:12am17.0 mg/dL7.0-18.0 Mean Corpuscular Hemoglobin ConcentDemclaren northern michiganer 2024 10:12amDecember 2024 10:12am31.8 g/dL29.9-35.2Urine Occult BloodDeceer 2024 10:05amTRACE-I NEGATIVECalcium LevelDecemayo clinic [place] ([place]) 2024 10:12amDecember 2024 10:12am9.0 mg/dL8.5-10.1Mean Corpuscular VolumeDe2024 10:12amDecember 2024 10:12am96.2 fL81.0-99.0Urine AppearanceMarch 16, 2025 10:05amSL CLOUDYCLEAR Chloride LevelMarch 16, 2025 10:12amDece2024 10:74xi719 mmol/L 98-107Mean Platelet Volume2024 10:12amDece2024 10:12am 10.7 fL9.5-13.5Urine ColorDe2024 10:05amLT. YELLOWYELLOWCarbon Dioxide Level2024 10:12amDece2024 10:12am31.3 mmol/L 21.0-32.0Platelet CountMarch 16, 2025 10:12amDece2024 10:73jj437 10 3/gV524-205Zdjge Glucose (UA)March 16, 2025 10:05amNEGATIVE mg/dLNEGATIVE CreatinineMarch 16, 2025 10:12amDece2024 10:12am0.84 mg/dL 0.55-1.02Red Blood Count2024 10:12amDece2024 10:12am3.99 10 6/uLBelow low normal4.20-5.40Urine KetonesDselect specialty hospital [facility]2024 10:05amNEGATIVE mg/dLNEGATIVEEstimated GFR ()March 16, 2025 10:amMarch 16, 2025 10:12am>60>=60 mL/min/1.73m 2Red Cell Distribution Width2024 10:12amDece2024 10:12am14.3 %11.0-15.0Urine Leukocyte Esterase March 16, 2025 10:05amSMALLAbnormal (applies to non-numeric results)NEGATIVE Estimated GFR (Non- AmericanDemclaren northern [facility]2024 10:12amDecember 2024 10:12am>60>=60 mL/min/1.73m 2Corrected White Blood CountDece2024 10:12amDecember 2024 10:12am6.0 10 3/uL4.0-11.0Urine MucusDeceer 2024 10:05amTRACEAbnormal (applies to non-numeric results)NONE SEENGlucose Level March 16, 2025 10:12amDecember 2024 10:20ms817 mg/dLAbove high normal 74-106Urine NitriteDedignity health [facility] hospital 2024 10:05amNEGATIVENEGATIVEPotassium Level March 16, 2025 10:12amDecember 2024 10:12am4.3 mmol/L3.5-5.1Urine pH March 16, 2025 10:05am>=9.0Abnormal (applies to non-numeric results)5.0-9.0 Sodium LevelDedignity health [facility] 2024 10:12amDecember 2024 10:42mg102 mmol/L 136-145Urine ProteinDeceer 2024 10:05am30 mg/dLAbnormal (applies to non- numeric results)NEG/TRACEPhosphorus LevelDemclaren northern [facility]2024 10:12amDecember 2024 10:12am3.5 mg/dL2.6-4.7Urine RBCDeceer 2024 10:68gu8-2 #/HPF0-2Urine Specific Gravityce2024 10:05am1.0101.005-1.025Urine Squamous Epithelial CellsDeceer 2024 10:05amFEW #/LPFAbnormal (applies to non- numeric results)NONE/RAREUrine UrobilinogenDecember 2024 10:05am1.0 EU/dL 0.2-1.0Urine WBCDeceer 2024 10:36jf2-5 #/HPFAbnormal (applies to non- numeric results)NONE SEEN Vital Signs Vital Reading Result Reference Range Collection Date/Time Height 68 [in_i] March 22, 2025 3:03pmBody Kpelxcjxziu88.6 [degF]97.6-99.0December 2024 3:03pmHeart Bemj893 /vzk70-868Ozxtccoc 15th, 2025 3:03pmRespiratory rate18 /bnj87-93Shoaulmz 2024 3:03pmOxygen saturation by Pulse cvvzpmli33 %95-100 March 22, 2025 3:03pmBP Hjafrtwe732 mm[Hg]100-140cemb2024 3:03pm BP Htxmvcrwk25 mm[Hg]60-100Decemb2024 3:03pm Advance Directives Advance Directive Response Recorded Date/ Time Advance Directives No February 1:25pm Insurance Providers Guarantor Guera Nichols Amos Address [address] [place] [address]Mflsieq Info.Home Phone: Coverage Status Update:2024 Payer Group Member ID Coverage Type Subscriber Relationship to Subscriber Effective Date Expiration Date Medicare [id number] L Adrian Id: [id number] [address] [place] [address] Home Phone: selfMedicare [employer] [id number] L Adrian Id: [id number] [address] [place] [address] Home Phone: [facility] Part A [id number] L Adrian Id: [id number] [address] [place] [address] Home Phone: self Encounters Encounter Location(s) Arrival/Admit Date Discharge/Departure Date Discharge/Departure Disposition Provider(s) Non-patient / Non-visit -[facility] Professional [facility] D ecember 2024 10:12am DAISY Chaparroeparted Physician/Provider [facility] 2:55pmDeceer 2024 3:17pmDischarged to home care or self care (routine discharge)Teri Salgado MD Recent Diagnosis Onset Date Admit Date Alcohol abuse Unknown March 22, 2 025 2:55pm CKD (chronic kidney disease) stage 3, GFR 30-59 ml/min Unknown March 22, 2025 2:55pm Diabetes mellitus, type 2 Unknown Decemb er 2024 2:55pm Hyperlipidemia Unknown March 22, 2 025 2:55pm Hypertension Unknown March 22, 2 025 2:55pm Hypophosphatemia Unknown March 22, 2025 2:55pm Hypomagnesemia Unknown March 22, 2 025 2:55pm Hyponatremia Unknown March 22, 2 025 2:55pm Assessments Diagnosis Onset Date Resolution Status Admit Date Alcohol [facility]Sur[facility] 20[facility] 2:55pmCKD (chronic kidney disease) stage 3, GFR 30-59 ml/minacuteSurprise Valley Community Hospitaler 2024 2:55pmDiabetes mellitus, type 2acuteDeceer 2024 2:55pmHyperlipidemiaacuteSurprise Valley Community Hospitaler 2024 2:55pmHypertensionacute March 22, 2025 2:55pmHypophosphatemiaacuteLehigh [facility] Hospital[facility] 2024 2:55pm HypomagnesemiachronicLehigh Valley Hospital[facility] 2024 2:55pmHyponatremiachronMayo Clinic Health System– [facility] 2024 2:55pm Plan of Treatment Author Teri Salgado [facility] HospitalAuthoDepartment [facility] 2024 1:11pmShe has hyponatremia likely due to SIADH. Her serum sodium is within acceptable range. I have advised to Continue the salt tablet due to 2 g 3 times daily. Advised fluid restriction 60 ounces a day. She has hypomagnesemia likely due to the PPI induced GI malabsorption and renal magnesium wasting. Advised her to continue oral magnesium. Continue amiloride. She has a CKD likely due to the longstanding hypertension with baseline serum creatinine around 0.9 to 1 mg/dL. Blood pressure is controlled. Will continue current dose of the amlodipine and amiloride. She takes metformin and pioglitazone. I have advised her to continue follow with PCP for DM management. Will continue irbesartan for renal protection. She has hypophosphatemia due to the refeeding syndrome and poor oral intake. Will continue Neutra-Phos packet. I have advised her to take a high phosphorus diet. Will continue statins. Advised continue follow with PCP for monitoring of LFTs and lipid profile. I have counseled her about alcohol abstinence. Also advised her to work with PCP in that regard. Future Tests Future scheduled test information is unavailable Pending Tests Test Name Ordered Date Scheduled Date Renal Function Panel March 22, 2025 3:15pm 6 Months Future Visits Future appointment information is unavailable Future Procedures Procedure Name Ordered Date Scheduled Date Dipstick and Microscopic March 22, 2025 3:1 5pm 6 Months Magnesium March 22, 2025 3:15pm 6 Mon ths Protein Creat Ratio Ur Random March 22 3:15pm 6 Months Vitamin D 25 Hydroxy Total March 22, 2025 3 :15pm 6 Months Future Medications Future medication information is unavailable Patient Instructions Patient instructions are unavailable
--- NOTE | 2025-03-24 10:42 | XR_ITS ---
The [address] [address] Patient Name: JACINTO SANCHEZ MRN: [id number] date: 1955 Sex: F Assigned Patient Location: [facility] Current Patient Location: [facility] Accession/Order Number: [id number] Exam Date: 03/24/2025 10:48 Report Date: 03/24/2025 11:01 At the request of: ASH BERNSTEIN MD Procedure: XR hip RT 2V w/ pelvis RIGHT HIP WITH AP PELVIS - 3 views COMPARISON: 03/11/2023 CLINICAL DATA: Pain at the right hip for the past 1-2 weeks after patient fell off a chair. AP view of the pelvis as well as AP and frog-lateral views of the right hip were obtained. There is osteopenia. There is a right dynamic hip screw with short lateral plate. The hardware appears intact and unchanged from the prior. No acute fractures or dislocation are seen. The hip joint spaces are symmetric. There is minor marginal spurring. The SI joints are intact. There is degenerative change at the lower imaged lumbar spine. There is also an old compression fracture L4 with kyphoplasty. No soft tissue abnormalities are noted. XR/XR hip RT 2V w/ pelvis IMPRESSION: OSTEOPENIA, MINOR DEGENERATIVE AND RIGHT HIP POSTOPERATIVE CHANGES. NO ACUTE BONY INJURY. Impression dictated by: Katie Butler M.D. 03/24/2025 11:01 AM Dictation Location: [place] [address] Electronically authenticated by: [id number] Y Date: 03/24/2025 11:01
--- OUTSIDE RECORDS SUMMARY | 2025-03-24 10:42 | XMS_ITS | Clinical Summary ---
Author Organization [facility] Address [address] [place] [address] Phone Care Team Providers Care Retail Loss Prevention Investigator Name Role Phone Unavailable Primary Care Provider Unavailabl e Social History Tobacco UseTypesPacks/DayYears UsedDateSmoking Tobacco: Never Assessed CommentsUnknownSex and Gender InformationValueDate RecordedSex Assigned at Not on fileLegal SgvOcqymb60/25/2022 11:59 AM ESTGender IdentityNot on file Sexual OrientationNot on file Plan of Treatment Not on file
--- OUTSIDE RECORDS SUMMARY | 2025-03-24 10:42 | XMS_ITS | Clinical Summary ---
Author Organization [facility] Address [address] [place], [place] [address] Care Team Providers Care Furniture Assembly Supervisor Name Role Phone Yves Whiting MD Primary Care Provider [phone] Medications * This document contains information received from the source organization and may not represent a complete record from that organization. MedicationSigDispense QuantityRefillsLast FilledStart DateEnd DateStatus GLUCOPHAGE 850MG TABLET three times a psv812Active AVANDIA 8MG TABLET one time a hwa336Active GLYNASE 6MG PRESTAB two times a jgw672Active CELEXA 40MG TABLET one time a jim676Active CARDURA 8MG TABLET one time a mcu932Active LOZOL 2.5MG TABLET one time a srg555Active HUMULIN R 100U/ML VIAL 0-10-0-15 2 Active DIOVAN 80MG TABLET Take one(1) tablet daily. 30 Active HUMULIN N 100 UNITS/ML VIAL Indications:Unspecified essential hypertension,Pure hypercholesterolemia, Obesity, cdtxkhzgocc40-1-48-6 2 Active Social History Tobacco UseTypesPacks/DayYears UsedDateSmoking Tobacco: Never Assessed CommentsUnknownSex and Gender InformationValueDate RecordedSex Assigned at Not on fileLegal PdaDqhkbw23/02/2012 10:04 AM ESTGender IdentityNot on file Sexual OrientationNot on file Last Filed Vital Signs Vital SignReadingTime TakenCommentsBlood Vndlgpih295/6802 3:21 PM EST Ghjll4586 3:21 PM ESTTemperature--Respiratory Rate--Oxygen Saturation-- Inhaled Oxygen Concentration--Yqdxkv877.4 kg (267 lb 11.2 oz)06/01/2004 3:21 PM ILAVjhdni922.7 cm (5' 8 )06/01/2004 2:28 PM ESTBody Mass Index40.7006/01/2004 2:28 PM EST Plan of Treatment Health MaintenanceDue DateLast DoneCommentsAnxiety Utpeoyzym65/23/1973Depression Qmwxuyngi75/23/1973Hepatitis C Ecnbhcfnq53/23/1973DTaP,Tdap,Td Vaccine (1 - Tdap)1973Mammogram Iurevzgli54/23/1995CT Hvotlywwkxzq14/23/2000Cologuard (FIT-DNA)05/31/19999409Qscvolxmmdz06/23/2000Colorectal Cancer Qedkcsbqh45/23/2000 Fecal Occult Blood05/31/19992242Fekemegviohox38/23/2000Pneumococcal Vaccine: 50+ (1 of 1 - PCV)2004Shingrix Vaccine (1 of 2)2004Diabetes Screening , 02/24/2004Lipid Jhvywvukm65Bone Density Ktorvupnm96/23/2020Advance Directive Fsvjhphxnt57/01/2025ovid-19 Vaccine ( - 2024- season)2024Influenza Vaccine (#1)2024RSV Vaccine (1 - 1-dose 75+ series)2029 Procedures Procedure NamePriorityDate/TimeAssociated DiagnosisCommentsCOMPREHENSIVE METABOLIC NABXDMlwitsi06/18/2004 3:45 PM EST Diabetes Mellitus Type Ii Uncontr Uncompl Benign Hypertension Hyperlipidemia Nec/Nos General Osteoarthrosis Morbid Obesity LIPID PANEL, FKZZTQUIkcklnm29/18/2004 3:45 PM EST Diabetes Mellitus Type Ii Uncontr Uncompl Benign Hypertension Hyperlipidemia Nec/Nos General Osteoarthrosis Morbid Obesity from Last 3 Months or Most Recently Relevant to Health Maintenance Results * (ABNORMAL) LIPID PANEL BASIC (02/24/2004 3:45 PM EST)ComponentValueRef Range Test MethodAnalysis TimePerformed AtPathologist IuxlzpzbxObrfdwtwlgkh718(A)30 - 149 mg/dLUNIVERSITY [facility]ALS [facility] LABCholesterol, Furju455(A)100 - 199 mg/dL [facility] LABHDL Zulcuhtichd81>45 mg/dLUNIVERSITY H[facility]ITALS [facility] LABVLDL Szbtharrzdm54(A)6 - 40 mg/dLUNIVERSITY [facility]ITALS [facility] LABLDL Cholesterol, Fotyaqzdmx144 (A)60 - 129 mg/dLUNIVERSITY [facility]ITALS [facility] LABFasting TimeUnknownhrsUNIVERSITY [facility]OSPITALS [facility] LABTC:HDL Ratio4.671.00 - 5.00UN[facility] LABLDL:HDL Ratio2.750.50 - 3.55 [facility] LABSpecimen (Source)Anatomical Location / Laterality Collection Method / VolumeCollection TimeReceived TimeBlood specimen (specimen)BLOOD SPECIMEN / Bdqiszh7402/24/2004 3:45 PM EST Narrative Authorizing ProviderResult TypeResult StatusRobert Martha Bishop MDLABORATORYFinal ResultPerforming OrganizationAddressCity/State/ZIP CodePhone Number [facility] [address] [place] [address] * (ABNORMAL) COMP METABOLIC PANEL (02/24/2004 3:45 PM EST)ComponentValueRef RangeTest MethodAnalysis TimePerformed AtPathologist SignatureProtein, Total 7.86.0 - 8.4 g/dLUNIVERSITY [facility]ITALS [facility] LABAlbumin4.43.5 - 5.0 g/dLUNIVERSITY [facility]ALS [facility] LABCalcium9.28.5 - 10.5 mg/dLUNIVERSITY [facility]ITALS [facility] LABBilirubin, Total0.50.0 - 1.5 mg/dLUNIVERSITY [facility]ITALS [facility] LABAlkaline Bjxueevwgsc01886 - 150 U/LCFA[facility] VXQWIU35(A)7 - 40 U/LC[facility] MKRZlrjyiv079(A)65 - 100 mg/dLUNIVERSITY [facility] GGQXBH0673 - 25 mg/dLUNIVERSITY [facility] LABCreatinine0.6(A)0.7 - 1.4 mg/dLUNIVERSITY [facility] DJSTecndj974680 - 146 mmol/LCFA[facility] LAB Potassium3.93.5 - 5.0 mmol/LCFA[facility] ILIOudpjtjq8565 - 110 mmol/L [facility] YFQNL49990 - 32 mmol/LCW[facility] LABAnion Gap90 - 15 mmol/LCFA[facility] XRSSAX752 - 50 U/LCFA[facility] LABSpecimen (Source) Anatomical Location / LateralityCollection Method / VolumeCollection Time Received TimeBlood specimen (specimen)BLOOD SPECIMEN / Glhnnsi2402/24/2004 3:45 PM EST Narrative Authorizing ProviderResult TypeResult StatusRobjosiane Bishop MDLABORATORYFinal ResultPerforming OrganizationAddressCity/State/ZIP CodePhone Number [facility] [address] [place] [address] from Last 3 Months or Most Recently Relevant to Health Maintenance Insurance Care Teams Team MemberRelationshipSpecialtyStart DateEnd Yves Whiting MD [address] [place] [address] PCP - General11/02/03
--- OUTSIDE RECORDS SUMMARY | 2025-03-24 10:42 | XMS_ITS | Patient Health Record ---
Author Organization [facility] Address [address] [place] [address] Care Team Providers Care Shaker Screen Operator Name Role Phone Arnoldo Dougherty Unavailable [phone] Reason For Referral No Information Problems Problem Type SNOMED Code ICD Code Onset Dates Problem Status W/U Status Risk Notes Problem Arthralgia of the pe lvic region and thigh (706689481) Right hip pain (M25.551) ActiveconfirmedProblemClosed fracture of neck of femur (034669926)Fracture of unspecified part of neck of right femur, initial encounter for closed fracture (S72.001A)Activeconfirmed Plan Of Treatment No Information Insurance Providers Payer Name Payer Address Payer Phone Subscriber Number Group Number Insured Name Patient Relationship to Insured Coverage Start Date Coverage End Date [employer] [address] [address] [place] [address] [phone] [id number] ERIS SANCHEZelf - patient is the insured
--- OUTSIDE RECORDS SUMMARY | 2025-03-24 10:42 | XMS_ITS | Patient Health Record ---
Author Organization [facility] [place] Address [address] [place] [address] Care Team Providers Care Reporter Anchor Name Role Phone Darrin Whiting Primary Care Provider Allergies No Known Allergies Results Component Value Reference Range Notes CBC AUTO DIFF Reviewed date:08/14/2024 12:34:49 PM Interpretation: Performing Lab: Notes/Report: [facility] , White Blood Count 5.6 4.0-11.0 10 3/uL Red Blood Count3.934.20-5.40 10 6/cZWemogjjvjw71.012.0-16.0 g/nUYkcmvttrsw98.5 36.0-48.0 %Mean Corpuscular Dpobhv29.081.0-99.0 fLMean Corpuscular Hemoglobin 30.526.7-34.0 pgMean Corpuscular HGB Conc31.229.9-35.2 g/dLRed Cell Distribution Width14.011.0-15.0 %Platelet Ttthz902352-948 10 3/uLMean Platelet Llmnqp39.59.5- 13.5 fLNeutrophils Percent Auto65.043.0-75.0 %Lymphocytes Percent Auto26.220.5- 60.0 %Monocytes Percent Auto7.11.7-12.0 %Eosinophils Percent Auto0.90.9-7.0 % Basophils Percent Auto0.40.2-2.0 %Immature Granulocytes Pct Auto0.40.0-0.5 % Neutrophils Absolute Auto3.71.4-6.5 10 3/uLLymphocytes Absolute Auto1.51.2-3.8 10 3/uLMonocytes Absolute Auto0.40.3-0.8 10 3/uLEosinophils Absolute Auto0.10.0- 0.7 10 3/uLBasophils Absolute Auto0.00.0-0.1 10 3/uLImmature Granulocytes Abs Auto0.020.00-0.03 10 3/uLPerforming Lab:see noteML - [facility] LB GLYCOHEMOGLOBIN A1C Reviewed date:08/14/2024 12:34:49 PM Interpretation: Performing Lab: Notes/Report: [facility] ,Glycohemoglobin A1C6.64.5-6.2 % ADA RECOMMENDED LIMIT 4.0 - 6.0 ADA THERAPEUTIC TARGET < 7.0 ACTION SUGGESTED > 7.0 Estimated Average Taftudw119Lfayzujufj Lab:see note - [facility] LB IRON Reviewed date:08/14/2024 12:34:49 PM Interpretation: Performing Lab: Notes/Report: [facility] ,Iron67.050.0-170.0 ug/dLPerforming Lab:see note - [facility] LB MAGNESIUM Reviewed date:09/06/2024 04:05:39 PM Interpretation: Performing Lab: Notes/Report: [facility] ,Magnesium1.51.8-2.4 mg/dLPerforming Lab:see note - [facility] RENAL FUNCTION PANEL Reviewed date:09/06/2024 04:05:39 PM Interpretation: Performing Lab: Notes/Report: [facility] ,[place]055-827 mmol/LPotassium4.53.5-5.1 mmol/DYqdmyvdg59475-866 mmol/LCarbon Ksoajdb27.221.0-32.0 mmol/LAnion Gap14.4Sgduxpm05579-978 mg/dLBlood Urea Fgdmfkvn97.07.0-18.0 mg/dLCreatinine0.790.55-1.02 mg/dLEstimated GFR ( Brenda>60>=60 mL/min/1.73m 2Estimated GFR (Non- Francheska>60>=60 mL/min/1.73m 2BUN Creatinine Ratio17.9Imlnljs6.48.5-10.1 mg/dLPhosphorus1.12.6-4.7 mg/dL RESULTS CALLED TO BETTYE SOLARES LPNAlbumin Level3.73.4-5.0 g/dLPerforming Lab:see noteML - [facility] LBUA RANDOM W or MICROSCOPIC Reviewed date:09/06/2024 04:05:39 PM Interpretation: Performing Lab: Notes/Report: [facility] ,Color UrineLT. YELLOWYELLOWClarity UrineCLEARCLEARSpecific [place] Urine1.015 1.005-1.025pH Urine8.05.0-9.0Protein UrineNEGATIVENEG/TRACE mg/dLGlucose Urine UANEGATIVENEGATIVE mg/dLBilirubin UrineNEGATIVENEGATIVEKetones UrineNEGATIVE NEGATIVE mg/dLBlood UrineNEGATIVENEGATIVENitrite UrineNEGATIVENEGATIVE Urobilinogen Urine0.20.2-1.0 EU/dLLeukocyte Esterase UrineSMALLNEGATIVEWBC Urine 0-2NONE SEEN #/HPFRBC Urine0-20-2 #/HPFBacteria UrineLARGENONE SEEN #/HPFMucus UrineNONE SEENNONE SEENSquamous Epithelial Cell UrineFEWNONE/RARE #/LPFCrystals Seen?None SeenNone Seen #/HPFCast Seen?NONE SEENNONE SEEN #/LPFPerforming Lab: see noteML - [facility] LBURIC ACID SERUM Reviewed date:09/06/2024 04:05:39 PM Interpretation: Performing Lab: Notes/Report: [facility] ,Uric Acid4.32.6-6.0 mg/dLPerforming Lab:see noteML - [facility] LB URINE T PROTEIN CREAT RATIO Reviewed date:09/06/2024 04:05:39 PM Interpretation: Performing Lab: Notes/Report: [facility] ,Total Protein Urine Wivtgo60.0<=11.9 mg/dLCreatinine Urine Asbbpy29.6220.00- 300.00 mg/dLProtein Creatinine Ratio Urine0.43Performing Lab:see noteML - [facility] LBCBC no Diff (Hemogram) Reviewed date:09/06/2024 04:05:39 PM Interpretation: Performing Lab: Notes/Report: [facility] ,White Blood Count6.24.0-11.0 10 3/uLRed Blood Count4.384.20-5.40 10 6/uL Isknfuceeu43.512.0-16.0 g/iXGzlotsdpfi59.736.0-48.0 %Mean Corpuscular Wzhebg39.2 81.0-99.0 fLMean Corpuscular Iobghbrcpc29.826.7-34.0 pgMean Corpuscular HGB Conc 32.429.9-35.2 g/dLRed Cell Distribution Width13.811.0-15.0 %Platelet Hmirv082 150-450 10 3/uLMean Platelet Qkdngs95.59.5-13.5 fLPerforming Lab:see noteML - [facility] LBMAGNESIUM Reviewed date:03/16/2025 04:03:05 PM Interpretation: Performing Lab: Notes/Report: [facility] ,Magnesium1.31.8-2.4 mg/dLPerforming Lab:see noteML - [facility] LB RENAL FUNCTION PANEL Reviewed date:03/16/2025 04:03:05 PM Interpretation: Performing Lab: Notes/Report: [facility] ,Bggbmm713876-343 mmol/LPotassium4.33.5-5.1 mmol/SOsaxlozp32788-687 mmol/LCarbon Kltdtyf72.321.0-32.0 mmol/LAnion Gap9.4Wsiuyny31008-772 mg/dLBlood Urea Nitrogen 17.07.0-18.0 mg/dLCreatinine0.840.55-1.02 mg/dLEstimated GFR ( Brenda>60 >=60 mL/min/1.73m 2Estimated GFR (Non- Francheska>60>=60 mL/min/1.73m 2BUN Creatinine Ratio20.2Zomuiud2.08.5-10.1 mg/dLPhosphorus3.52.6-4.7 mg/dLAlbumin Level3.43.4-5.0 g/dLPerforming Lab:see noteML - [facility] LBUA RANDOM W or MICROSCOPIC Reviewed date:03/16/2025 04:03:05 PM Interpretation: Performing Lab: Notes/Report: [facility] ,Color UrineLT. YELLOWYELLOWClarity UrineSL CLOUDYCLEARSpecific [place] Urine 1.0101.005-1.025pH Urine>=9.05.0-9.0Protein Dbmel52VOP/TRACE mg/dLGlucose Urine UANEGATIVENEGATIVE mg/dLBilirubin UrineNEGATIVENEGATIVEKetones UrineNEGATIVE NEGATIVE mg/dLBlood UrineTRACE-INEGATIVENitrite UrineNEGATIVENEGATIVE Urobilinogen Urine1.00.2-1.0 EU/dLLeukocyte Esterase UrineSMALLNEGATIVEWBC Urine 2-5NONE SEEN #/HPFRBC Urine0-20-2 #/HPFBacteria UrineMODERATENONE SEEN #/HPF Mucus UrineTRACENONE SEENSquamous Epithelial Cell UrineFEWNONE/RARE #/LPF Crystals Seen?None SeenNone Seen #/HPFCast Seen?NONE SEENNONE SEEN #/LPF Performing Lab:see note - [facility] LBURIC ACID SERUM Reviewed date:03/16/2025 04:03:05 PM Interpretation: Performing Lab: Notes/Report: [facility] ,Uric Acid3.72.6-6.0 mg/dLPerforming Lab:see [facility] LB VITAMIN D 25 [place] Reviewed date:03/16/2025 04:03:05 PM Interpretation: Performing Lab: Notes/Report: [facility] ,Vitamin D32.2 <20 ng/mL Vit D deficient 20-<30 ng/mL Vit D insufficient 30-100 ng/mL Vit D sufficient >100 ng/mL Potential Toxicity Performing Lab:see note - [facility] LBCBC no Diff (Hemogram) Reviewed date:03/16/2025 04:03:05 PM Interpretation: Performing Lab: Notes/Report: [facility] ,White Blood Count6.04.0-11.0 10 3/uLRed Blood Count3.994.20-5.40 10 6/uL Hhgyyhctig81.212.0-16.0 g/mDJxmuwdjygq42.436.0-48.0 %Mean Corpuscular Vtjhfj86.2 81.0-99.0 fLMean Corpuscular Oaoswtpkas88.626.7-34.0 pgMean Corpuscular HGB Conc 31.829.9-35.2 g/dLRed Cell Distribution Width14.311.0-15.0 %Platelet Qyvio878 150-450 10 3/uLMean Platelet Rfzhez09.79.5-13.5 fLPerforming Lab:see note - [facility] LBVITAMIN D 25 [place] Reviewed date:08/14/2024 12:34:49 PM Interpretation: Performing Lab: Notes/Report: [facility] ,Vitamin D26.4 <20 ng/mL Vit D deficient 20-<30 ng/mL Vit D insufficient 30-100 ng/mL Vit D sufficient >100 ng/mL Potential Toxicity Performing Lab:see note - [facility] LBTSH Reviewed date:08/14/2024 12:34:49 PM Interpretation: Performing Lab: Notes/Report: [facility] ,Thyroid Stimulating Hormone0.8970.358-3.740 uIU/mLPerforming Lab:see [facility] LBT4 Reviewed date:08/14/2024 12:34:49 PM Interpretation: Performing Lab: Notes/Report: [facility] ,T4 Thyroxine4.004.80-13.90 ug/dLPerforming Lab:see note - [facility] LBPROF 14(COMP METB) Reviewed date:08/14/2024 12:34:49 PM Interpretation: Performing Lab: Notes/Report: [facility] ,Ckrcsi285192-196 mmol/LPotassium4.23.5-5.1 mmol/RUoewrawu9803-032 mmol/LCarbon Hzgyqgx87.821.0-32.0 mmol/LAnion Gap8.6Tzavzuy64833-024 mg/dLBlood Urea Nitrogen 9.07.0-18.0 mg/dLCreatinine0.910.55-1.02 mg/dLEstimated GFR ( Brenda>60 >=60 mL/min/1.73m 2Estimated GFR (Non- Francheska>60>=60 mL/min/1.73m 2BUN Creatinine Ratio9.9Fwtwlhr9.88.5-10.1 mg/dLBilirubin Total0.30.2-1.0 mg/dL Aspartate Amino Heeultujpxz6992-84 U/LAlanine Jvoomoytrlfdcblr7805-69 U/L Alkaline Rzygjhkgiko7566-461 U/LTotal Protein6.86.4-8.2 g/dLAlbumin Level3.23.4- 5.0 g/dLGlobulin3.6Albumin Globulin Ratio0.9Performing Lab:see note - [facility] LBMAGNESIUM Reviewed date:08/14/2024 12:34:49 PM Interpretation: Performing Lab: Notes/Report: [facility] ,Magnesium1.61.8-2.4 mg/dLPerforming Lab:see noteML - [facility] LB LIPID PROFILE Reviewed date:08/14/2024 12:34:49 PM Interpretation: Performing Lab: Notes/Report: [facility] ,Gvdufhfypmovg14<=150 mg/uHUwlzgpelcvo673<=200 mg/dLHDL Okseypzlxck8714-30 mg/dL > or =60 mg/dl - LOW CARDIOVASCULAR RISK <40 mg/dl - HIGH CARDIOVASCULAR RISK LDL Cholesterol Txpvnkodvr27.0 <100 mg/dl OPTIMAL 100-129 mg/dl NEAR OR ABOVE OPTIMAL 130-159 mg/dl BORDERLINE HIGH 160-189 mg/dl HIGH >190 mg/dl VERY HIGH VLDL EKKZJOUAGTJ33.2Chol HDL Ratio1.8 3.3 - 4.4 LOW RISK 4.4 - 7.1 AVERAGE RISK 7.1 - 11.0 MODERATE RISK >11.0 HIGH RISK Performing Lab:see note - [facility] LBFREE T3 Reviewed date:08/14/2024 12:34:49 PM Interpretation: Performing Lab: Notes/Report: [facility] ,Free T32.202.18-3.98 pg/mLPerforming Lab:see noteML - [facility] LB URINE T PROTEIN CREAT RATIO Reviewed date:03/16/2025 04:03:05 PM Interpretation: Performing Lab: Notes/Report: [facility] ,Total Protein Urine Hlndyg51.0<=11.9 mg/dLCreatinine Urine Hwlyit779.1920.00- 300.00 mg/dLProtein Creatinine Ratio Urine0.29Performing Lab:see note - [facility] LB Reason For Referral No Information Medications Medication SIG (Take, Route, Frequency, Duration) Notes Start Date End Date Status amLODIPine Besylate 10 MG TAKE 1 TABLET BY MOUTH EVERY DAY FOR 90 DAYS; Duration: 90 ActivemetFORMIN HCl 850 MGTAKE 1 TABLET BY MOUTH THREE TIMES A DAY; Duration: 90 daysActivePhosLoActiveLiothyronine Sodium 5 MCGTAKE 2 TABLET BY MOUTH EVERY DAY ON EMPTY STOMACH FOR 30 DAYS; Duration: 90 daysActiveMagnesium Oxide 400 MGTAKE 14 TABLETS BY MOUTH ONCE A DAY; Duration: 30 daysActiveFolic Acid 1 MG1 tablet Orally Once a day; Duration: 90 daysActiveFosamax 70 MG1 tablet 30 minutes before the first food, beverage or medicine of the day with plain water Orally O nce Weekly; Duration: 30 daysActiveCitalopram Hydrobromide 40 MGTAKE 1 TABLET BY MOUTH EVERY DAY; Duration: 90ActiveCyclobenzaprine HCl 10 MGTAKE 2 TABLETS BY MOUTH AT BEDTIME; Duration: 30ActiveBactrim DS 800-160 MG1 tablet Orally twice a day; Duration: 10 days5ActiveQUEtiapine Fumarate 100 MGTAKE 1 TABLET BY MOUTH EVERY DAY AT BEDTIME FOR 30 DAYS; Duration: 90 daysActiveCetirizine HCl 10 MGTAKE 1 TABLET BY MOUTH EVERY DAY; Duration: 90ActiveSodium Chloride 1 GMTAKE 3 TABLETS BY MOUTH THREE TIMES A DAY; Duration: 30ActiveOmeprazole 40 MGTAKE 1 CAPSULE BY MOUTH EVERY DAY 30 MINUTES BEFORE BREAKFAST IN THE MORNING; Duration: 90ActiveAtorvastatin Calcium 20 MGTAKE 1 TABLET BY MOUTH EVERY DAY; Duration: 90 daysActivePioglitazone HCl 45 MGTAKE 1 TABLET BY MOUTH EVERY DAY FOR 90 DAYS; Duration: 90ActiveMeloxicam 15 MG1 tablet Orally Once a day; Duration: 30 days 5Active Immunizations Vaccine Route Administration Date Status Comme [facility] Syringe Pre -Filled 30 mcg/0.3 mL Unknown 03/23/2023 Administered Flu, Fluad (40840) 65 yrs + High Dose Seasonal (4074-8348)Sehlcmh2202/25/2022 AdministeredFlu, Fluad (17378) 65 yrs + Trivalent (2364-7579)Kkfjbdj5102/16/2020 AdministeredFlu, Fluad (19813) 65 yrs+, single-dose syringe (7110-9903)Unknown 1AdministeredFlu, Fluzone High-Dose (3650-8829) (18254) 65 yrs+Unknown 12/15/2022AdministeredPneumococcal (Prevnar 13)Grzpvsx3902/16/2020Administered Pneumococcal (Prevnar 13)Nnavble19/31/7982GscbmdwkbfodUJJP-VTQ-0 (COVID 19 Moderna - Booster 0.25mL)Nrpnxrk56/02/8966MkfapfgfvbkzKJLI-WSN-5 (COVID 19 Moderna - Booster 0.25mL)Hwuhvdq5903/28/20214811FmqfamsrprddXDAT-CTG-7 (COVID 19 Pfizer 30mcg/0.3mL)Zicdftn4103/28/20200746AiopssurobnmOFRV-BTW-2 (COVID 19 Pfizer 30mcg/0.3mL)Susbisn48/07/9849UahbjzerjrehZUIZ-ZYR-4 (COVID 19 Pfizer 30mcg/0.3mL)Oigtpfi17/21/2021AdministeredZOSTER (SHINGLES) VACCINE (HZV)Unknown 10/10/2021dministered Social History Tobacco Use: Social History Observation Description Date Details (start date - stop date) Former Smoker NA - 03/07/1980 Tobacco Use/Smoking Question Answer Notes Patient is a former smoker When did you stop smoking?03/07/1980How long has it been since you last smoked?> 10 years Problems Problem Type SNOMED Code ICD Code Onset Dates Problem Status W/U Status Risk Notes Problem Age-related osteoporosis (405633 002) Age-related osteoporosis without current pathological fracture (M81.0) ActiveconfirmedProblemHypomagnesemia (834766800)Hypomagnesemia (E83.42)Active confirmedProblemHypocalcemia (7981016)Hypocalcemia (E83.51)Activeconfirmed ProblemHypertensive heart failure (04683313)Hypertensive heart disease with heart failure (I11.0)ActiveconfirmedProblemBackache (450200899)Other dorsalgia (M54.89)ActiveconfirmedProblemHistopathology finding (993857406)Unspecified abnormal finding in specimens from other organs, systems and tissues (R89.9) ActiveconfirmedProblemGastroesophageal reflux disease (101633177)GERD (gastroesophageal reflux disease) (K21.9)ActiveconfirmedProblemHypothyroidism (88876907)Hypothyroidism (E03.9)ActiveconfirmedProblemHypertension (96744643)HTN (hypertension) (I10)ActiveconfirmedProblemEdema (31336368)Edema (R60.9)Active confirmedProblemHip pain (34699783)Hip pain (M25.559)ActiveconfirmedProblem Hyponatremia (79117816)Hyponatremia (E87.1)ActiveconfirmedProblemClosed fracture of femur (06279252)Femur fracture (S72.90XA)ActiveconfirmedProblemDiastolic heart failure (896364881)Unspecified diastolic (congestive) heart failure (I50.30)ActiveconfirmedProblemImpacted cerumen (95724793)Cerumen impaction (H61.20)ActiveconfirmedProblemOsteoporosis (90666041)Osteoporosis (M81.0)Active confirmedProblemIron deficiency anemia (79516162)Iron deficiency anemia (D50.9) ActiveconfirmedProblemType II diabetes mellitus without complication (183426971) Non-insulin dependent type 2 diabetes mellitus (E11.9)ActiveconfirmedProblem Hypophosphatemia (5911028)Hypophosphatemia (E83.39)ActiveconfirmedProblemHypoxia (198112337)Hypoxia (R09.02)ActiveconfirmedProblemIron deficiency anemia (43650581)Anemia, iron deficiency (D50.9)ActiveconfirmedProblemCurrent drinker of alcohol (423610)Alcohol use (F10.99)ActiveconfirmedProblemEssential hypertension (30105555)BP (high blood pressure) (I10)ActiveconfirmedProblemPure hypercholesterolemia (193827753)Pure hypercholesterolemia, unspecified (E78.00) ActiveconfirmedProblemMalnutrition of mild degree (Horowitz: 75% to less than 90% of standard weight) (08409780)Mild protein malnutrition (E44.1)Activeconfirmed Vital Signs Blood pressure diastolic 76 mm Hg 03/24/2025 Kpknhc56 in03/24/2025lood pressure uliymuxd773 mm Hg03/24/20250152Ipjdcp273.4 lbs 03/24/2025BMI28.49 kg/m203/24/2025 Procedures Procedure Date Ordered Date Performed Result Body Sit e EAR IRRIGATION - performed 12/10/2024 N/A Encounters Encounter Location Date Provider Diagnosis [address] [place] [address] 03/24/2025 Darrin Hoy Hypertensive heart disease with heart failure I11.0 ; Unspecified diastolic (congestive) heart failure I50.30 and Serous otitis media H65.90 [facility] [address] [place] [address] 08/04/2024 Darrin Hoy Anemia, iron deficie ncy D50.9 ; Hyponatremia E87.1 ; Hypomagnesemia E83.42 ; HTN (hypertension) I10 and Non-insulin dependent type 2 diabetes mellitus E11.[address] [address] 12/10/2024 Darrin Peñay Bilateral impacted cerumen H61.23 [facility] [address] [place] [address] 04/22/2024 Darrin Hoy [facility] [place] [address] 07/31/2024Doug [address] [address]/12/[address] [address]/12/2024Doug Johanne Assessments Encounter Date Diagnosis (ICD Code) Assessment Notes Treatment Notes Treatment Clinical Notes Section Notes 08/04/2024 Anemia, iron deficiency (ICD-10 - D50.9) 08/04/2024Hyponatremia (ICD-10 - E87.1)12/10/2024ilateral impacted cerumen (ICD-10 - H61.23)03/24/2025Hypertensive heart disease with heart failure (ICD-10 - I11.0)03/24/2025Unspecified diastolic (congestive) heart failure (ICD-10 - I50.30)stabel 0 no edema - no DOE105/25/2024Serous otitis media (ICD-10 - H65.90) flonase adn ovcpcd5708/04/2024Hypomagnesemia (ICD-10 - E83.42)08/04/2024HTN (hypertension) (ICD-10 - I10)08/04/2024Non-insulin dependent type 2 diabetes mellitus (ICD-10 - E11.9)12/10/2024Otherirrigated Plan Of Treatment Pending Test Test Name Order Date CMP (COMPLETE METABOLIC PANEL) HEMOGLOBIN A1C (GLYCO) 08/04/2024 IRON, TOTAL 08/04/2024 MAGNESIUM 12/11/2023 LIPID PANEL (CHOL/TRIG/HDL/LDL) 08/05/19 25 VITAMIN D, 25 LEVEL (TOTAL) 08/04/2024 XR Lumbar Spine (2-3 views) * 05/25/2020 XR Thoracic Spine (3 views) dorsal * US Lower Extremity RT 02/26/2023 T3 FREE, T4 FREE and TSH 09/06/2023 T3 FREE, T4 FREE and TSH 11/01/2022 T3 FREE, T4 FREE and TSH 09/03/2023 FECAL OCCULT BLOOD 09/03/2023 EAR IRRIGATION - performed 12/10/2024 CMP - Comprehensive Metabolic Panel 09/06 CBC AUTO DIFF 09/17/2022 GLYCOHEMOGLOBIN A1C 11/01/2022 LIPID PROFILE 11/01/2022 MAGNESIUM 08/04/2024 MAGNESIUM 03/25/2023 PHOSPHORUS 12/11/2023 XR DEXA BONE DENSITY 07/30/2023 THYROID PANEL (T4/TSH/FREE T3) XR HIP RT 2 3V W PELVIS 03/24/2025 MM screening mammo BI 08/04/2024 CMP (COMP MET CASTRO) w/eGFR CKD-EPI 2024 CBC WITH DIFF 08/04/2024 Insurance Providers Payer Name Payer Address Payer Phone Subscriber Number Group Number Insured Name Patient Relationship to Insured Coverage Start Date Coverage End Date MEDICARE RAILROAD [address] [address] [facility] CONRAD WONG [id number] Renate Campbellelf - patient is the [id number] 2019[employer] [facility] [id number] [place] [id number], CharmaineSelf - patient is the [id number] 2019 Medications Administered Medication Instructions Date of Administration Dosage Notes Kenalog-40 20 ev193Lfsuksdnm Vljipwwwntlq10/05/202460 mg60 Medical (General) History Medical History History ICD Code Iron deficiency anemia D50.9 Hyponatremia E87.1 Osteoporosis M81.0 Surgical History Surgery Date(Month/Year) OR humerus fracture 02/2022 Right Hip Surgery 12/2022 EGD 06/2022 kyphoplasty L4 03/2020 Hospitalization History Reason Date(Month/Year) syncopal episode 06/2020 PRES 03/2022
== END 2025-03-24 10:36 | disposition home or self-care (01) ==
LOC: RAD 10:38
PROVIDERS: PCP Family Medicine; Visit Provider Family Medicine
DX: I11.0 Hypertensive heart disease with heart failure (principal); M85.88 Other specified disorders of bone density and structure, other site
CPT/HCPCS: 73502